=== PATIENT | male | born 1945 | race Caucasian/White ===

== ENCOUNTER → 2018-06-20 15:43 | Outpatient (CLI) | payer OTHER, SELFPAY ==
[2018-06-20 17:43] LABS: Anion Gap 10 (5-15); BUN 16 mg/dL (7-18); BUN/Creat Ratio 15.5 RATIO (10-20); Chloride 102 mmol/L (98-107); Creatinine, Serum 1.03 mg/dL (0.70-1.30); EST Glomerular Filtration Rate 76 mL/min (>60); Est Glom Filt Rate - Afr Amer 91 mL/min (>60); Glucose 99 mg/dL (74-106); Potassium 3.8 mmol/L (3.5-5.1); Sodium Level 138 mmol/L (136-145)
== END ==
PROVIDERS: Family Provider Family Medicine; PCP Family Medicine; Visit Provider Family Medicine
DX: I10 Essential (primary) hypertension (principal)
CPT/HCPCS: 36415; 80048

== ENCOUNTER → 2018-07-07 12:23 | Outpatient (CLI) | payer OTHER, SELFPAY | PROVIDERS: Family Provider Family Medicine; PCP Family Medicine; Visit Provider Nurse Practitioner Family | DX: R30.0 Dysuria (principal) | CPT/HCPCS: 87086; 87088 ==

== ENCOUNTER → 2018-12-17 09:45 | Outpatient (CLI) | payer OTHER, SELFPAY ==
[2018-12-17 12:58] LABS: Anion Gap 7 (5-15); BUN 14 mg/dL (7-18); BUN/Creat Ratio 13.3 RATIO (10-20); Calcium,Total 8.7 mg/dL (8.5-10.1); Chloride 101 mmol/L (98-107); Creatinine, Serum 1.05 mg/dL (0.70-1.30); EST Glomerular Filtration Rate 74 mL/min (>60); Est Glom Filt Rate - Afr Amer 89 mL/min (>60); Glucose 99 mg/dL (74-106); Potassium 3.7 mmol/L (3.5-5.1); Sodium Level 135 mmol/L (136-145)
== END ==
PROVIDERS: Family Provider Family Medicine; PCP Family Medicine; Referring Provider Family Medicine; Visit Provider Family Medicine
DX: I10 Essential (primary) hypertension (principal)
CPT/HCPCS: 36415; 80048

== ENCOUNTER → 2018-12-29 13:35 | Outpatient (CLI) | payer OTHER, SELFPAY ==
--- NOTE | 2018-12-29 13:43 | CT_ITS ---
STUDY: CT MAXILLOFACIAL SINUSES REASON FOR EXAM: Male, 73 years old. Chronic sinusitis. RADIATION DOSAGE (If Supplied By Facility): CTDIvol = ( 33.45 ) mGy, DLP = ( 612.42 ) mGycm TECHNIQUE: The patient was scanned in a multi detector CT scanner. High resolution axial imaging was performed without the administration of intravenous contrast material. Sagittal and coronal images were reconstructed. Individualized dose optimization techniques were used for this CT. COMPARISON: 3 plain film images of the paranasal sinuses October 26, 2015. FINDINGS: FRONTAL SINUSES: Normal aeration, without mucosal inflammatory disease. ETHMOIDAL SINUSES: Borderline to mild mucoperiosteal thickening in the anterior air cells. MAXILLARY SINUSES: Mild to moderate mucoperiosteal thickening consistent with chronic sinusitis. There is a rounded 2.3 cm soft tissue density in the right maxillary antrum that may be a large polyp or mucous inclusion cyst. SPHENOIDAL SINUSES: Mild mucoperiosteal thickening in the anterior-inferior right sphenoid sinus. Mild to moderate mucosal encroachment on the of the bilateral maxillary infundibuli. Normal uncinate processes, ethmoid bullae, and hiatus semilunaris. Normal bilateral middle turbinates. Normal bilateral inferior turbinates. Normal midline nasal septum. There is patency of the bilateral nasal airways. There are multilevel degenerative changes of the visualized cervical spine. The visualized osseous structures are otherwise unremarkable. The visualized bilateral orbital contents are normal. CT/Sinus/Facial Bone IMPRESSION: Chronic paranasal sinusitis, most prominent in the right maxillary antrum, as described. Electronically Signed: Jamison De La O MD at 14:50 EDT , Service support ,
== END ==
PROVIDERS: Family Provider Family Medicine; PCP Family Medicine; Referring Provider Family Medicine; Visit Provider Family Medicine
DX: J32.9 Chronic sinusitis, unspecified (principal)
CPT/HCPCS: 70486

== ENCOUNTER → 2019-06-24 10:16 | Outpatient (CLI) | payer OTHER, SELFPAY ==
[2019-06-24 13:13] LABS: Anion Gap 3 (5-15); BUN 16 mg/dL (7-18); Calcium,Total 8.8 mg/dL (8.5-10.1); Chloride 102 mmol/L (98-107); Creatinine, Serum 1.07 mg/dL (0.70-1.30); EST Glomerular Filtration Rate 72 mL/min (>60); Est Glom Filt Rate - Afr Amer 87 mL/min (>60); Glucose 92 mg/dL (74-106); Sodium Level 137 mmol/L (136-145); Thyroid Stim Hormone (TSH) 1.11 uIU/mL (0.358-3.74)
== END ==
PROVIDERS: Family Provider Family Medicine; PCP Family Medicine; Referring Provider Family Medicine; Visit Provider Family Medicine
DX: I10 Essential (primary) hypertension (principal); G20 Parkinson's disease
CPT/HCPCS: 36415; 80048; 84443

== ENCOUNTER → 2019-12-22 09:40 | Outpatient (CLI) | payer OTHER, SELFPAY ==
[2019-12-22 13:07] LABS: Anion Gap 6 (5-15); BUN 19 mg/dL (7-18); BUN/Creat Ratio 17.4 RATIO (10-20); Calcium,Total 9.4 mg/dL (8.5-10.1); Chloride 102 mmol/L (98-107); Creatinine, Serum 1.09 mg/dL (0.70-1.30); EST Glomerular Filtration Rate 70 mL/min (>60); Est Glom Filt Rate - Afr Amer 85 mL/min (>60); Glucose 98 mg/dL (74-106); Potassium 3.8 mmol/L (3.5-5.1); Sodium Level 139 mmol/L (136-145)
== END ==
PROVIDERS: PCP Family Medicine; Referring Provider Family Medicine; Visit Provider Family Medicine
DX: I10 Essential (primary) hypertension (principal)
CPT/HCPCS: 36415; 80048

== ENCOUNTER → 2020-07-22 10:09 | Outpatient (CLI) | payer OTHER, SELFPAY ==
[2020-07-22 12:24] LABS: Anion Gap 5 (5-15); BUN 17 mg/dL (7-18); BUN/Creat Ratio 15.6 RATIO (10-20); Chloride 100 mmol/L (98-107); Cholesterol 162 mg/dL (200); Creatinine, Serum 1.09 mg/dL (0.70-1.30); EST Glomerular Filtration Rate 70 mL/min (>60); Est Glom Filt Rate - Afr Amer 85 mL/min (>60); Glucose 96 mg/dL (74-106); High Density Lipoprotein 72 mg/dL; Potassium 3.6 mmol/L (3.5-5.1); Sodium Level 135 mmol/L (136-145); Triglycerides 46 mg/dL; Very Low Density Lipoprotein 9 mg/dL (5-40)
== END ==
PROVIDERS: PCP Family Medicine; Referring Provider Family Medicine; Visit Provider Family Medicine
DX: I10 Essential (primary) hypertension (principal)
CPT/HCPCS: 36415; 80048; 80061

== ENCOUNTER 2020-12-19 10:38 | Outpatient (RCR) | payer OTHER, SELFPAY | END 2020-12-19 23:59 | LOC: IMMUN 10:38 | PROVIDERS: PCP Family Medicine; Visit Provider Family Medicine | DX: Z23 Encounter for immunization (principal) | CPT/HCPCS: 0011A; 0012A ==

== ENCOUNTER → 2021-03-15 14:52 | Outpatient (CLI) | payer OTHER, SELFPAY ==
--- NOTE | 2021-03-15 14:58 | US_ITS ---
STUDY: SCROTUM ULTRASOUND REASON FOR EXAM: Male, 75 years old. Right-sided scrotal swelling. TECHNIQUE: Ultrasound evaluation of the scrotum was performed with color Doppler and static coates-scale imaging. COMPARISON: None. FINDINGS: RIGHT TESTICLE INTRATESTICULAR: There is a normal size of the right testicle. The right testicle measures 3.4 x 1.8 x 2.2 cm. There is a heterogeneous echotexture. There is normal arterial and normal venous vascularity. There is no demonstrated right testicular mass or cyst. EXTRATESTICULAR: The epididymis is enlarged. The epididymis head measures 0.9 x 0.6 x 0.7 cm. There is increased (hyperemic) vascularity of the epididymis. There is no demonstrated epididymal cystic structure. There is a large hydrocele. There is no demonstrated varicocele. There is no demonstrated extratesticular mass or cyst. LEFT TESTICLE INTRATESTICULAR: There is a normal size of the left testicle. The left testicle measures 2.9 x 2.0 x 1.6 cm. There is a homogenous echotexture. There is normal arterial and normal venous vascularity. There is no demonstrated left testicular mass or cyst. EXTRATESTICULAR: The epididymis is normal in size. The epididymis head measures 0.8 x 1.0 x 0.6 cm. There is normal vascularity of the epididymis. There is no demonstrated epididymal cystic structure. There is a small hydrocele. There is no demonstrated varicocele. There is no demonstrated extratesticular mass or cyst. US/Testicular with Arterial Flow IMPRESSION: 1. Findings suggestive of right-sided epididymitis with large hydrocele. 2. Small left hydrocele. 3. Normal testicles and left epididymis. Electronically Signed: Wili Junior DO at 16:54 EDT Tel [phone], Service support ,
== END ==
PROVIDERS: PCP Family Medicine; Referring Provider Family Medicine; Visit Provider Family Medicine
DX: N50.89 Other specified disorders of the male genital organs (principal)
CPT/HCPCS: 76870; 93976

== ENCOUNTER → 2021-05-02 10:44 | Outpatient (CLI) | payer OTHER, SELFPAY ==
[2021-05-02 10:54] LABS: Bacteria 0 SEEN /hpf (None Seen); Mucous, Urine 0 SEEN /hpf (<or=2+)
[2021-05-02 11:10] LABS: Color, Urine Yellow (Yellow); Glucose, Dipstick Normal (Normal); Ketone-Dipstick Negative (Negative); Leukocyte Esterase-Dipstick 25 /ul (Negative); Nitrite-Dipstick Negative (Negative); Occult Blood-Urine 25 /ul (Negative); Protein-Dipstick Negative (Negative); Urine Bilirubin Dipstick Negative (Negative); Urine Clarity Sl. Cloudy (Clear); Urine Urobilinogen Normal (Normal)
[2021-05-02 11:21] LABS: Red Blood Cells-Urine 0-5 SEEN /hpf (0-5); Squamous Epithelial Cells - UA 0-5 SEEN /hpf (0-5); White Blood Cells 0-5 SEEN /hpf (0-5)
== END ==
PROVIDERS: PCP Family Medicine; Visit Provider Nurse Practitioner Adult Health
DX: R31.29 Other microscopic hematuria (principal)
CPT/HCPCS: 81001

== ENCOUNTER → 2022-02-06 | Outpatient (CLI) | payer BC, SELFPAY ==
[2022-02-06 15:30] LABS: Anion Gap 5 (5-15); BUN 16 mg/dL (7-18); BUN/Creat Ratio 15.1 RATIO (10-20); Chloride 103 mmol/L (98-107); Creatinine, Serum 1.06 mg/dL (0.70-1.30); EST Glomerular Filtration Rate 72 mL/min (>60); Est Glom Filt Rate - Afr Amer 88 mL/min (>60); Glucose 98 mg/dL (74-106); Potassium 3.7 mmol/L (3.5-5.1); Sodium Level 138 mmol/L (136-145)
[2022-02-06 16:04] LABS: Microalbumin,Random Urine 22.6 mg/L (NO RANGE EST.); Microalbumin:Creatinine Ratio 11.5 mg/g CRE (<30 mg/g CRE)
== END | disposition home or self-care (01) ==
LOC: MFPLAB 12:11
PROVIDERS: PCP Family Medicine; Visit Provider Family Medicine
DX: I10 Essential (primary) hypertension (principal)
CPT/HCPCS: 36415; 80048; 82043; 82570

== ENCOUNTER → 2022-08-21 | Outpatient (CLI) | payer MEDICARE, OTHER, SELFPAY ==
--- NOTE | 2022-08-21 10:28 | EKG12_ITS ---
Test Reason : PREOP Blood Pressure : / mmHG Vent. Rate : 070 BPM Atrial Rate : 070 BPM P-R Int : 142 ms QRS Dur : 092 ms QT Int : 410 ms P-R-T Axes : 041 -63 037 degrees QTc Int : 442 ms Normal sinus rhythm Left anterior fascicular block Nonspecific ST abnormality Abnormal ECG Confirmed by GUEVARA SAVAGE, JONNATHAN ([id number]), photography editor ARGELIA MERA ([id number]) on 08/22/2022 9:30:47 AM Referred By: Garth Becerra Confirmed By:JONNATHAN WATERMAN MD
[2022-08-21 11:54] LABS: Hematocrit 46.7 % (40-54); Hemoglobin 16.1 g/dL (13.0-16.5); Mean Corp Hgb Conc 34.5 g/dL (32-36); Mean Corpuscular Hgb 32.5 pg (27.0-32.0); Mean Corpuscular Volume 94.2 fL (80-94); Mean Platelet Vol. 10.3 fl (6.2-12.0); Platelet Count 221 K/mm3 (150-450); RBC Distribution Width CV 14.1 % (11.6-14.6); RBC Distribution Width SD 48.5 fl (35.1-43.9); Red Blood Count 4.96 M/mm3 (4.6-6.2); White Blood Count 6.5 K/mm3 (4.4-11.0)
[2022-08-21 12:20] LABS: Anion Gap 6 (5-15); BUN 19 mg/dL (7-18); BUN/Creat Ratio 17.6 RATIO (10-20); Calcium,Total 9.1 mg/dL (8.5-10.1); Chloride 101 mmol/L (98-107); Creatinine, Serum 1.08 mg/dL (0.70-1.30); EST Glomerular Filtration Rate 71 mL/min (>60); Est Glom Filt Rate - Afr Amer 86 mL/min (>60); Glucose 117 mg/dL (74-106); Potassium 3.7 mmol/L (3.5-5.1); Sodium Level 135 mmol/L (136-145)
== END | disposition home or self-care (01) ==
LOC: LAB.FUTURE 10:27 → LAB 10:42
PROVIDERS: PCP Family Medicine; Referring Provider Urology; Visit Provider Urology
DX: Z01.810 Encounter for preprocedural cardiovascular examination (principal)
CPT/HCPCS: 36415; 80048; 85027; 93005

== ENCOUNTER 2023-01-30 15:00 | Outpatient (RCR) | payer MEDICARE, OTHER, SELFPAY ==
--- NOTE | 2022-10-31 18:02 | HP.PTEVAL_ITS ---
Patient's Visit Information ANTHONY VIDES III is a 77 year old M referred to Physical Therapy by Out of Town [facility] with a diagnosis of Parkinson's Disease. Date of Evaluation: 10/31/22 Physical Therapist: PJ Hays - Visit Plan Frequency: 2x /Week Duration: 2 Months Plan: 2X/ week for 8 weeks for UE/LE strength, gait training, balance, dual tasking, functional activities with HEP. HEP: LTR, standing heel and toe raises, seated opp arm and leg, SKC - Subjective Pt was diagnosed with PD 7 years ago. He has most of his sx in his L leg. He has not had PT before. He was walking 30-45 min of walking a day and doing some stretches and strengthening. He just got a stationary bike. It is not put together yet. He has some freezing episodes when trying to turn 180 degrees. He has not had that problem when out walking. He is able to get in a car that is not an issue but a strange car can be a struggle. Turning over in bed can be a struggle. It is a little better with time release levadopa. He has not had any falls. His house is small and can hold onto things. He lives with 2 cats. Stairs: 3 story condo with bed upstairs and laundry in basement with and he alternates the stairs. Sit to stand: He struggles getting out of a recliner. Curb steps: careful but not an issue. 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 Pt biggest concern is balance and retaining strength in his arms (to be able to get up from the chair and the bed). - Objective Gait: Walks with catching his L toe, fast speed and slower stride length B, walks with heels and knees almost touching and flexed trunk. LE MMT: R hip flex 5.7# and L hip flex 6.6#. R knee ext 17.8# and L knee ext 15.4#. R knee flex 6.7# and L knee flex 7#. R shoulder flex 7.4# and L shld flex 7.6#. R shoulder ER 7.4# and L 4.9. R tricep 8.5# and L 7.2#. FGA: 11. Sit to stand: Able to get up without using his UE but has some retro LOB. TU:56. Standing opp arm and leg: Has poor balance but able to do X 3 on each side in a row without messing up but then does lose his balance. Pt struggles with standing heel and toe raises. Flexibility: Tight B gastroc and HS, trunk rotation. Standing with EC 15 seconds - Balance/Special Test Scores Functional Gait Assessment Score: 11 % Disability: 63.3400 Lower Extremity Functional Score: 51 - Goals Goal 1:: I HEP Goal Time Frame: 8-12 Weeks Goal 2:: Increase balance (FGA was 11 at time of the eval). Goal Time Frame: 8-12 Weeks Goal 3:: Increase UE/LE strength (at the time of the eval: R hip flex 5.7# and L hip flex 6.6#. R knee ext 17.8# and L knee ext 15.4#. R knee flex 6.7# and L knee flex 7#. R shoulder flex 7.4# and L shld flex 7.6#. R shoulder ER 7.4# and L 4.9. R tricep 8.5# and L 7.2#) Goal Time Frame: 8-12 Weeks Goal 4:: Be able to sit to stand X 10 without retro LOB and no UE support Goal Time Frame: 8-12 Weeks Goal 5:: Be able to complete X 20 opp arm and leg in standing in a row without LOB or messing up seqyence. Goal Time Frame: 8-12 Weeks - Rehabilitation Potential Rehabilitation Potential: Good - Anticipated Interventions Therapeutic Exercise to Include: Strength training, Endurance training, Balance training, Postural training, Flexibilty training, Gait and locomotor training, Neuromotor development, Passive ROM, Active ROM, Dynamic Lumbar Stabilization For the Purpose of:: To decrease pain, To increase ROM, To improve nutrient delivery to tissue, To improve muscle performance and motor function, To improve ability to perform ADL's, To increase tolerance to activity/condition/position, To improve performance and independence with ADL's, To decrease level of supervision to perform tasks, To improve ability of physical actions for home/community/work/leisure, To improve gait and locomotor functions, To improve health of tissue, To decrease soft tissue restriction, To increase flexibility/ROM, To improve balance, To improve safety with gait, To improve health and function Functional Training to Include: Gait training For the Purpose of:: To decrease pain, To increase ROM, To improve nutrient delivery to tissue, To improve muscle performance and motor function, To improve ability to perform ADL's, To increase tolerance to activity/condition/position, To improve performance and independence with ADL's, To decrease level of supervision to perform tasks, To improve ability of physical actions for home/community/work/leisure, To improve gait and locomotor functions, To improve health of tissue, To decrease soft tissue restriction, To increase flexibility/ROM, To improve endurance, To improve balance, To improve safety with gait Manual Therapy Techniques to Include: Passive ROM For the Purpose of:: To increase ROM, To increase flexibility/ROM Thank you for the opportunity to evaluate your patient. For Medicare and Medicare HMO plans, please review the plan of care and approve it. It will need to be FAXED BACK to us at [phone] for Medicare purposes. For Medicare only, by signing this I certify the plan of care. Please let me know if there are questions or concerns regarding this plan of care. Physician Signature: Date:
--- NOTE | 2022-12-05 12:56 | HP.PTREVAL ---
CLAUDE LIZ, It has been my pleasure to treat ANTHONY VIDES III over the last 9 visits for Parkinson's Disease. Please see the progress note below for an update on the physical therapy plan of care! Subjective: Pt reports that he is having a bad sinus day and his balance is off and this is chronic for him. Pt feels PT has been helpful in reminding him how to walk and do things correctly. He feels that he needs work on balance and strength. He feels that he has def gotten stronger. He would like to do another 4 weeks. Objective/Function: FGA was 11 at time of the eval now 15. MMT: R hip flex 11.7# and L hip flex 13.2#. R knee ext 25.7# and L knee ext 24.5#. R knee flex 11.1# and L knee flex 10.2#. R shoulder flex 8.3# and L shld flex 8.4#. R shoulder ER 14.6# and L 11.3. R tricep 8.7# and L 9.6#). Sit to stand X 10 but does have some retro LOB at times and uses the legs against the back of the chair to right his balance. He also does not stand up completely when doing them. [place] arm and leg X 10 B without LOB Plan Plan: Continue with sit to stand to avoid RETRO LOB and more erect posture, continue with balance activities, dual tasking, and functional transfers. 2X/ week for 8 weeks for UE/LE strength, gait training, balance, dual tasking, functional activities with HEP. HEP: LTR, standing heel and toe raises, seated opp arm and leg, [facility] Balance/Gait/Functional tests - Balance/Special Test Scores Functional Gait Assessment Score: 15 % Disability: 50.0000 Lower Extremity Functional Score: 60 Goals Goal 1:: I HEP Goal Time Frame: 8-12 Weeks Goal Progress: Goal Met Goal 2:: Increase balance (FGA was 11 at time of the eval). Goal Time Frame: 8-12 Weeks Goal Progress: Progressing Goal 3:: Increase UE/LE strength (at the time of the eval: R hip flex 5.7# and L hip flex 6.6#. R knee ext 17.8# and L knee ext 15.4#. R knee flex 6.7# and L knee flex 7#. R shoulder flex 7.4# and L shld flex 7.6#. R shoulder ER 7.4# and L 4.9. R tricep 8.5# and L 7.2#) Goal Time Frame: 8-12 Weeks Goal Progress: Progressing Goal 4:: Be able to sit to stand X 10 without retro LOB and no UE support Goal Time Frame: 8-12 Weeks Goal Progress: Progressing Goal 5:: Be able to complete X 20 opp arm and leg in standing in a row without LOB or messing up seqyence. Goal Time Frame: 8-12 Weeks Goal Progress: Progressing Anticipated Interventions Therapeutic Exercise to Include: Strength training, Endurance training, Balance training, Postural training, Flexibilty training, Gait and locomotor training, Neuromotor development, Passive ROM, Active ROM, Dynamic Lumbar Stabilization For the Purpose of:: To decrease pain, To increase ROM, To improve nutrient delivery to tissue, To improve muscle performance and motor function, To improve ability to perform ADL's, To increase tolerance to activity/condition/position, To improve performance and independence with ADL's, To decrease level of supervision to perform tasks, To improve ability of physical actions for home/community/work/leisure, To improve gait and locomotor functions, To improve health of tissue, To decrease soft tissue restriction, To increase flexibility/ROM, To improve balance, To improve safety with gait, To improve health and function Functional Training to Include: Gait training For the Purpose of:: To decrease pain, To increase ROM, To improve nutrient delivery to tissue, To improve muscle performance and motor function, To improve ability to perform ADL's, To increase tolerance to activity/condition/position, To improve performance and independence with ADL's, To decrease level of supervision to perform tasks, To improve ability of physical actions for home/community/work/leisure, To improve gait and locomotor functions, To improve health of tissue, To decrease soft tissue restriction, To increase flexibility/ROM, To improve endurance, To improve balance, To improve safety with gait Manual Therapy Techniques to Include: Passive ROM For the Purpose of:: To increase ROM, To increase flexibility/ROM Please do not hesitate to contact me at [phone] by phone or if you have questions or concerns regarding this new plan of care! Sincerely, Miriam Olivia, MPT
--- NOTE | 2023-01-01 13:40 | HP.PTREVAL ---
CLAUDE LIZ, It has been my pleasure to treat ANTHONY VIDES III over the last 16 visits for Parkinson's Disease. Please see the progress note below for an update on the physical therapy plan of care! Subjective: Pt is standing up much easier, walking much easier, standing opp arm and leg seems easier and better overall balance. Pt feels he still needs work on balance and strengthening. Objective/Function: R hip flex 12.1# and L hip flex 14.9#. R knee ext 25.5# and L knee ext 22.1#. R knee flex 11.6and L knee flex 12.5#. R shoulder flex 8.2# and L shld flex 8.4#. FGA: 17 Plan Plan: 2 additional visits for 1 hour to teach pt how to use the H&W equipment for strength, posture and some safe balance with worksheet filled out so he can follow it on his own. Pt will start PD class tomm. Balance/Gait/Functional tests - Balance/Special Test Scores Functional Gait Assessment Score: 17 % Disability: 43.3400 Lower Extremity Functional Score: 57 Goals Goal 1:: I HEP Goal Time Frame: 8-12 Weeks Goal Progress: Goal Met Goal 2:: Increase balance (FGA was 11 at time of the eval). Goal Time Frame: 8-12 Weeks Goal Progress: Progressing Goal 3:: Increase UE/LE strength (at the time of the eval: R hip flex 5.7# and L hip flex 6.6#. R knee ext 17.8# and L knee ext 15.4#. R knee flex 6.7# and L knee flex 7#. R shoulder flex 7.4# and L shld flex 7.6#. R shoulder ER 7.4# and L 4.9. R tricep 8.5# and L 7.2#) Goal Time Frame: 8-12 Weeks Goal Progress: Goal Met Goal 4:: Be able to sit to stand X 10 without retro LOB and no UE support Goal Time Frame: 8-12 Weeks Goal Progress: Progressing Goal 5:: Be able to complete X 20 opp arm and leg in standing in a row without LOB or messing up seqyence. Goal Time Frame: 8-12 Weeks Goal Progress: Goal Met Anticipated Interventions Therapeutic Exercise to Include: Strength training, Endurance training, Balance training, Postural training, Flexibilty training, Gait and locomotor training, Neuromotor development, Passive ROM, Active ROM, Dynamic Lumbar Stabilization For the Purpose of:: To decrease pain, To increase ROM, To improve nutrient delivery to tissue, To improve muscle performance and motor function, To improve ability to perform ADL's, To increase tolerance to activity/condition/position, To improve performance and independence with ADL's, To decrease level of supervision to perform tasks, To improve ability of physical actions for home/community/work/leisure, To improve gait and locomotor functions, To improve health of tissue, To decrease soft tissue restriction, To increase flexibility/ROM, To improve balance, To improve safety with gait, To improve health and function Functional Training to Include: Gait training For the Purpose of:: To decrease pain, To increase ROM, To improve nutrient delivery to tissue, To improve muscle performance and motor function, To improve ability to perform ADL's, To increase tolerance to activity/condition/position, To improve performance and independence with ADL's, To decrease level of supervision to perform tasks, To improve ability of physical actions for home/community/work/leisure, To improve gait and locomotor functions, To improve health of tissue, To decrease soft tissue restriction, To increase flexibility/ROM, To improve endurance, To improve balance, To improve safety with gait Manual Therapy Techniques to Include: Passive ROM For the Purpose of:: To increase ROM, To increase flexibility/ROM Please do not hesitate to contact me at [phone] by phone or if you have questions or concerns regarding this new plan of care! Sincerely, Miriam Olivia, MPT
--- NOTE | 2023-01-30 15:54 | HP.PTEVAL_ITS ---
Patient's Visit Information ANTHONY VIDES III is a 77 year old M referred to Physical Therapy by CLAUDE LIZ with a diagnosis of Parkinson's Disease. Date of Evaluation: 10/31/22 Physical Therapist: PJ Hays - Visit Plan Frequency: 2x /Week Duration: 2 Months Plan: DC PT to H&W program - Subjective Pt was diagnosed with PD 7 years ago. He has most of his sx in his L leg. He has not had PT before. He was walking 30-45 min of walking a day and doing some stretches and strengthening. He just got a stationary bike. It is not put together yet. He has some freezing episodes when trying to turn 180 degrees. He has not had that problem when out walking. He is able to get in a car that is not an issue but a strange car can be a struggle. Turning over in bed can be a struggle. It is a little better with time release levadopa. He has not had any falls. His house is small and can hold onto things. He lives with 2 cats. Stairs: 3 story condo with bed upstairs and laundry in basement with and he alternates the stairs. Sit to stand: He struggles getting out of a recliner. Curb steps: careful but not an issue. 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 - Pain R knee Pain Intensity (Out of 10): 1 - Objective Gait: Walks with catching his L toe, fast speed and slower stride length B, walks with heels and knees almost touching and flexed trunk. LE MMT: R hip flex 5.7# and L hip flex 6.6#. R knee ext 17.8# and L knee ext 15.4#. R knee flex 6.7# and L knee flex 7#. R shoulder flex 7.4# and L shld flex 7.6#. R shoulder ER 7.4# and L 4.9. R tricep 8.5# and L 7.2#. FGA: 11. Sit to stand: Able to get up without using his UE but has some retro LOB. TU:56. Standing opp arm and leg: Has poor balance but able to do X 3 on each side in a row without messing up but then does lose his balance. Pt struggles with standing heel and toe raises. Flexibility: Tight B gastroc and HS, trunk rotation. Standing with EC 15 seconds - Balance/Special Test Scores Functional Gait Assessment Score: 17 % Disability: 43.3400 Lower Extremity Functional Score: 56 - Goals Goal 1:: I HEP Goal Time Frame: 8-12 Weeks Goal 2:: Increase balance (FGA was 11 at time of the eval). Goal Time Frame: 8-12 Weeks Goal 3:: Increase UE/LE strength (at the time of the eval: R hip flex 5.7# and L hip flex 6.6#. R knee ext 17.8# and L knee ext 15.4#. R knee flex 6.7# and L knee flex 7#. R shoulder flex 7.4# and L shld flex 7.6#. R shoulder ER 7.4# and L 4.9. R tricep 8.5# and L 7.2#) Goal Time Frame: 8-12 Weeks Goal 4:: Be able to sit to stand X 10 without retro LOB and no UE support Goal Time Frame: 8-12 Weeks Goal 5:: Be able to complete X 20 opp arm and leg in standing in a row without LOB or messing up sequence. Goal Time Frame: 8-12 Weeks - Rehabilitation Potential Rehabilitation Potential: Good - Anticipated Interventions Therapeutic Exercise to Include: Strength training, Endurance training, Balance training, Postural training, Flexibilty training, Gait and locomotor training, Neuromotor development, Passive ROM, Active ROM, Dynamic Lumbar Stabilization For the Purpose of:: To decrease pain, To increase ROM, To improve nutrient delivery to tissue, To improve muscle performance and motor function, To improve ability to perform ADL's, To increase tolerance to activity/condition/position, To improve performance and independence with ADL's, To decrease level of supervision to perform tasks, To improve ability of physical actions for home/community/work/leisure, To improve gait and locomotor functions, To improve health of tissue, To decrease soft tissue restriction, To increase flexibility/ROM, To improve balance, To improve safety with gait, To improve health and function Functional Training to Include: Gait training For the Purpose of:: To decrease pain, To increase ROM, To improve nutrient delivery to tissue, To improve muscle performance and motor function, To improve ability to perform ADL's, To increase tolerance to activity/condition/position, To improve performance and independence with ADL's, To decrease level of supervision to perform tasks, To improve ability of physical actions for home/community/work/leisure, To improve gait and locomotor functions, To improve health of tissue, To decrease soft tissue restriction, To increase flex ibility/ROM, To improve endurance, To improve balance, To improve safety with gait Manual Therapy Techniques to Include: Passive ROM For the Purpose of:: To increase ROM, To increase flexibility/ROM Thank you for the opportunity to evaluate your patient. For Medicare and Medicare HMO plans, please review the plan of care and approve it. It will need to be FAXED BACK to us at [phone] for Medicare purposes. For Medicare only, by signing this I certify the plan of care. Please let me know if there are questions or concerns regarding this plan of care. Physician Signature: Date:
--- NOTE | 2023-05-01 16:16 | HP.PTDCSUM ---
Discharge Summary D/C summary: It has been my pleasure to treat ANTHONY VIDES III referred by CLAUDE LIZ, with the diagnosis of Parkinson's Disease for a total of 21 visit(s). Discharge Date: 01/30/23 Please see the following information for a summary of their discharge status. Subjective Subjective: Pt reports that he has some sinus stuff and they can't figure out where it is coming from. He reports that he did not sleep well cause his son called him in the middle of the night having a panic attack. Pain R knee: Pain Intensity (Out of 10): 1 Overall Improvement % Improvement: 60 Objective Objective/Function: Pt given log sheet. Pt set up all machines today with therapist present and answering any questions. Pt is slow getting on and off the machines (his withering movements slow him down) but able to set up gym equip indep. Goals Goal 1:: I HEP Goal Progress: Goal Met Goal 2:: Increase balance (FGA was 11 at time of the eval). Goal Progress: Progressing Goal 3:: Increase UE/LE strength (at the time of the eval: R hip flex 5.7# and L hip flex 6.6# R knee ext 17.8# and L knee ext 15.4# R knee flex 6.7# and L knee flex 7# R shoulder flex 7.4# and L shld flex 7.6# R shoulder ER 7.4# and L 4.9 R tricep 8.5# and L 7.2#) Goal Progress: Goal Met Goal 4:: Be able to sit to stand X 10 without retro LOB and no UE support Goal Progress: Goal Met Goal 5:: Be able to complete X 20 opp arm and leg in standing in a row without LOB or messing up sequence. Goal Progress: Goal Met Plan Plan: DC PT to [facility] program D/C Information Discharge Comments: DC PT to I gym [facility] d/c sentence: If there are questions or concerns regarding this patient's physical therapy, please feel free to call me at [phone]. Thank you for the referral of this patient. Sincerely, Miriam Olivia, MPT Balance/Gait/Functional tests Balance/Special Test Scores Functional Gait Assessment Score: 17 % Disability: 43.3400 Lower Extremity Functional Score: 56
== END 2023-01-30 19:00 | disposition home or self-care (01) ==
LOC: PT 15:00
PROVIDERS: PCP Family Medicine
DX: G20 Parkinson's disease (principal)
CPT/HCPCS: 97110; 97161; 97530

== ENCOUNTER → 2023-02-06 | Outpatient (CLI) | payer MEDICARE, OTHER, SELFPAY ==
[2023-02-06 12:26] LABS: Absolute Lymphocyte Count 0.95 X10^3/uL (0.83-4.51); Absolute Neutrophil Count 4.2 X10^3/uL (2.0-7.7); Basophil# 0.05 X10^3/uL; Basophil% 0.9 % (0-1); Eosinophil# 0.03 X10^3/uL; Eosinophils% 0.5 % (0-5); Hematocrit 47.6 % (40-54); Hemoglobin 15.8 g/dL (13.0-16.5); Lymphocyte # 0.95 X10^3/ul (0.83-4.51); Lymphocyte % 16.9 % (19-41); Mean Corp Hgb Conc 33.2 g/dL (32-36); Mean Corpuscular Hgb 31.9 pg (27.0-32.0); Mean Platelet Vol. 10.8 fl (6.2-12.0); Monocyte# 0.33 X10^3/uL; Monocyte% 5.9 % (0-10); NRBC Flagged by Analyzer 0 % (0-5); Neutrophil # 4.21 X10^3/uL (2.7-7.7); Neutrophil % 74.9 % (47-70); Platelet Count 209 K/mm3 (150-450); Red Blood Count 4.96 M/mm3 (4.6-6.2); White Blood Count 5.6 K/mm3 (4.4-11.0)
== END | disposition home or self-care (01) ==
LOC: MFPLAB 10:50
PROVIDERS: PCP Family Medicine; Referring Provider Family Medicine; Visit Provider Family Medicine
DX: R60.9 Edema, unspecified (principal)
CPT/HCPCS: 36415; 84443; 85025

== ENCOUNTER → 2023-08-05 | Outpatient (CLI) | payer MEDICARE, OTHER, SELFPAY ==
[2023-08-05 12:45] LABS: Anion Gap 6 (5-15); BUN 19 mg/dL (7-18); BUN/Creat Ratio 17.4 RATIO (10-20); Calcium,Total 9.2 mg/dL (8.5-10.1); Chloride 104 mmol/L (98-107); Cholesterol 134 mg/dL (200); Creatinine, Serum 1.09 mg/dL (0.70-1.30); EST Glomerular Filtration Rate 70 mL/min (>60); Est Glom Filt Rate - Afr Amer 84 mL/min (>60); Glucose 107 mg/dL (74-106); High Density Lipoprotein 56 mg/dL; Potassium 4.1 mmol/L (3.5-5.1); Sodium Level 139 mmol/L (136-145); Triglycerides 56 mg/dL; Very Low Density Lipoprotein 11 mg/dL (5-40)
[2023-08-05 12:46] LABS: Microalbumin,Random Urine 21.9 mg/L (NO RANGE EST.); Microalbumin:Creatinine Ratio 10.1 mg/g CRE (<30 mg/g CRE)
== END | disposition home or self-care (01) ==
LOC: MFPLAB 10:57
PROVIDERS: PCP Family Medicine; Visit Provider Family Medicine
DX: I10 Essential (primary) hypertension (principal)
CPT/HCPCS: 36415; 80048; 80061; 82043; 82570

== ENCOUNTER 2023-12-03 20:00 | Observation (INO) | payer MEDICARE, OTHER, SELFPAY ==
[2023-12-03 20:01] VITALS: BP 129/80; PULSE 81; RESP 16; TEMP 36.6; O2SAT 97
[2023-12-03 20:05] VITALS: BP 129/80; PULSE 81; RESP 16; TEMP 36.6; O2SAT 97
[2023-12-03 20:51] VITALS: BMI 22.4
--- OUTSIDE RECORDS SUMMARY | 2023-12-03 21:15 | XMS RPT_ITS | CCD ---
Author Name Unknown Address [address] [place] [address] Organization [facility] Care Team Providers Care Twister Doffer Name Role Phone Sarika Montaño Primary Care Provider [phone] SARIKA MONTAÑO Primary Care Unavailable ADI KYLE Attending Unavailable PATIENCE MARCOS Attending Unavailable SARIKA MONTAÑO Primary Care Unavailable JUDITH ROSENBERG Referring Unavailable SARIKA MONTAÑO Primary Care Unavailable ADI KYLE Referring Unavailable JUDITH ROSENBERG Attending Unavailable Medications Completed/Discontinued Medications Medication Drug Class(es) Dates Sig (Normalized) Sig (Original) amantadine hydrochloride 100 mg oral capsule (20 sources) Influenza A M2 Protein Inhibitor Start: 11-09-2022 End: 10-09-2023 amantadine HCl (SYMMETREL) 100 mg capsule Take 2 tablets at 9am, then 1 tablet at 1pm and 5pm. 360 capsule 1 10/09/2023 Active Problems Active Problems Problem Classification Problem Date Documented Da te Episodic/Chronic Other hereditary and degenerative nervous system conditions (18 sources) Dystonia; Translations: [Dystonia, unspecified] Onset: 01-29-2022 Chronic Other hereditary and degenerative nervous system conditions (1 source) Dyskinesia; Translations: [Dystonia, unspecified] Chronic Parkinson`s disease (20 sources) Parkinson's disease; Translations: [Parkinson's disease] Onset: 03-24-2018 Chronic Residual codes; unclassified (17 sources) Insomnia co-occurrent and due to medical condition; Translations: [Insomnia due to medical condition] Onset: 03-17-2019 03-17-2019 Chronic Unclassified (3 sources) Movement disorder; Translations: [Motor fluctuations 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 in Parkinson's disease] Onset: 03-24-2018 03-24-2018 Chronic Past or Other Problems Problem Classification Problem Date Documented Da te Episodic/Chronic Diseases of mouth; excluding dental (19 sources) Excessive salivation; Translations: [Disturbances of salivary secretion] Onset: 04-21-2021 04-21-2021 Episodic Other hereditary and degenerative nervous system conditions (20 sources) Drug-induced dyskinesia; Translations: [Drug induced subacute dyskinesia] Onset: 05-20-2018 Episodic Residual codes; unclassified (16 sources) Livedo reticularis; 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] Onset: 03-17-2019 03-17-2019 Episodic Residual codes; unclassified (11 sources) Bilateral lower limb edema; Translations: [Localized edema] Onset: 11-02-2022 Episodic Results Test Name Value Interpretation Reference Range Facil ity Vital Signs Date Time Vital Sign Value Performing Clinician Randi méndez 02-27-2023 11:22-0400 Body height 177.8 cm Judith Rosenberg APRN.SECURITY INVESTIGATOR Work Phone: [facility] 02-27-2023 11:22-0400 Diastolic blood pressure 77 mm[Hg] Judith Rosenberg APRN.SECURITY INVESTIGATOR Work Phone: [facility] 02-27-2023 11:22-0400 Heart rate 60 /min Judith Rosenberg APRN.SECURITY INVESTIGATOR Work Phone: [facility] 02-27-2023 11:22-0400 SaO2% (BldA) [Mass fraction] 98 % Judith Rosenberg APRN.SECURITY INVESTIGATOR Work Phone: [facility] 02-27-2023 11:22-0400 Systolic blood pressure 168 mm[Hg] Judith Rosenberg APRN.SECURITY INVESTIGATOR Work Phone: [facility] 08-29-2022 12:49-0500 SaO2% (BldA) [Mass fraction] 99 % Adi Kyle MD Work Phone: [facility] 08-29-2022 12:46-0500 Body weight 67 kg Adi Kyle MD Work Phone: [facility] 08-29-2022 12:46-0500 Diastolic blood pressure 79 mm[Hg] Adi Kyle MD Work Phone: [facility] 08-29-2022 12:46-0500 Heart rate 65 /min Adi Kyle MD Work Phone: [facility] 08-29-2022 12:46-0500 Systolic blood pressure 172 mm[Hg] Adi Kyle MD Work Phone: [facility] 01-24-2022 13:37-0400 SaO2% (BldA) [Mass fraction] 98 % Adi Kyle MD Work Phone: [facility] 01-24-2022 13:35-0400 Body height 177.8 cm Adi Kyle MD Work Phone: [facility] 01-24-2022 13:35-0400 Diastolic blood pressure 96 mm[Hg] Adi Kyle MD Work Phone: [facility] 01-24-2022 13:35-0400 Heart rate 86 /min Adi Kyle MD Work Phone: [facility] 01-24-2022 13:35-0400 Systolic blood pressure 162 mm[Hg] Adi Kyle MD Work Phone: [facility] Encounters Encounter Date Encounter Type Care Provider Facility Start: 11-04-2023 End: 11-04-2023 ambulatory SARIKA [facility] Facility:[facility] Start: 10-09-2023 [place] augustine MD Work Phone: [facility] Procedures Date Procedure Procedure Detail Performing Clinician Start: 02-21-2022 Adult depression scr eening assessment Adi Kyle MD Work Phone: Start: 01-22-2022 Adult depression scr eening assessment Adi Kyle MD Work Phone: Start: 10-02-2011 Colonoscopy Adi de la rosa MD Work Phone: Plan of Treatment Date Care Activity Detail Author Start: 06-21-2023 Covid-19 Vaccine () Covid-19 Vaccine () [facility] Start: 06-21-2023 Influenza vaccination C [facility] Start: 02-21-2023 Adult depression scr eening assessment DEPRESSION SCREENING [facility] Start: 01-22-2023 Adult depression scr eening assessment DEPRESSION SCREENING [facility] Start: 12-08-2022 COVID-19 VACCINE (6 - Moderna series) COVID-19 VACCINE (6 - Moderna series) [facility] Start: 10-21-2022 ADVANCE DIRECTIVE DISCUSSION ADVANCE DIRECTIVE DISCUSSION [facility] Start: 10-21-2022 DEPRESSION ASSESSMENT DEPRESSION ASS ESSMENT [facility] Start: 06-21-2022 Influenza vaccination INFLUENZA (#1) [facility] Start: 12-31-2021 COVID-19 VACCINE (4 - Booster for Moderna series) COVID-19 VACCINE (4 - Booster for Moderna series) [facility] Start: 10-21-2021 ADVANCE DIRECTIVE DISCUSSION ADVANCE DIRECTIVE DISCUSSION [facility] Start: 10-21-2021 DEPRESSION ASSESSMENT DEPRESSION ASS ESSMENT [facility] Start: 10-02-2021 Colonoscopy COLONOSCOPY [facility] Start: 10-02-2021 COLORECTAL CANCER SCREENING COLORECTAL CANCER SCREENING [facility] Start: 09-15-2013 Shingrix Vaccine (2 of 3) Shingrix V accine (2 of 3) [facility] Start: 2011 Pneumococcal Vaccine : 65+ (1 - PCV) Pneumococcal Vaccine: 65+ (1 - PCV) [facility] Start: 2011 PNEUMOCOCCAL: 65+ (1 - PCV) PNEUMOCOCCAL: 65+ (1 - PCV) [facility] Start: 2011 PNEUMOVAX AGE 65 AND OVER WITH 5YR LOOKBACK (#1) PNEUMOVAX AGE 65 AND OVER WITH 5YR LOOKBACK (#1) [facility] Start: 2006 RSV Vaccine (1 - 1-d ose 60+ series) RSV Vaccine (1 - 1-dose 60+ series) [facility] Start: 1996 SHINGRIX VACCINE (1 of 2) SHINGRIX V ACCINE (1 of 2) [facility] Start: 1991 COLOGUARD (FIT-DNA) COLOGUARD (FIT-D NA) [facility] Start: [address] COLONOGRAPHY [facility] Start: 1991 DIABETES SCREEN DIABETES SCREEN [facility] Start: 1991 Diabetes Screening Diabetes Screenin g [facility] Start: 1991 FECAL OCCULT BLOOD FECAL OCCULT BLOO D [facility] Start: 1991 SIGMOIDOSCOPY SIGMOIDOSCOPY Paige herring [facility] Start: 1981 LIPID SCREEN LIPID SCREEN [facility] Start: 1965 Urine microalbumin profile [facility] Start: 1964 HEPATITIS C SCREENING HEPATITIS C [facility] Start: 1964 Hepatitis C screening Hepatitis C [facility] c Immunizations Immunization Date Immunization Notes Care Provider Fa cility 08-07-2022 influenza virus vacc ine, unspecified formulation Adi Kyle MD Work Phone: [facility] Payers Date Payer Category Payer Private Health Insurance [employer]LEMENT [id number] 2022-Present [phone] [address] [place] [address] Indemnity [id number] 2022 Private Health Insurance [id number] 2021 Unknown [employer] PPO [id number] 2021-Present [phone] [address] [place] [address] PPO [id number] 2021 Unknown [employer] PPO [id number] 2021-Present [phone] [address] [place] [address] PPO [id number] 2011 Medicare MEDICARE MEDICAR E A AND B [id number] 2011-Present [phone] [place] [address] Medicare [id number] 2011 Medicare [id number] Social History Date Type Detail Facility Start: 05-22-2011 End: 08-29-2022 Tobacco smoking status NHIS Never smoked tobacco [facility] Start: 05-22-2011 End: 08-29-2022 Tobacco use and exposure Smokeless tobacco non-user [facility] Start: 11-12-2019 End: 02-27-2023 Alcohol intake Not Asked [facility] Start: 1945 Sex Assigned At Male C [facility] Start: 01-14-2022 End: 08-29-2022 Exposure to SARS-CoV-2 (event) Not sure [facility] Start: 02-27-2023 End: 05-27-2023 History of Social function [facility] Start: 02-27-2023 End: 05-27-2023 Tobacco use panel [facility] Adult Depression Screening Assessment 0 [facility] Start: 04-17-2021 Gender identity Identifies as male gender (finding) [facility] Start: 04-17-2021 Sexual orientation Heterosexual (fin ding) [facility] Clinical Notes 01-24-2022 to 11-04-2023 Telephone Encounter - Leonora Betts - 10/10/2023 8:44 AM ESTTelephone Encounter - Sammie Pryor - 10/09/2023 10:03 AM ESTPatient InstructionsPatient InstructionsPatient Instructions Note Date & Type Note Facility 11-04-2023 Note HNO ID: [id number] Author: ADI KYLE MD Service: ? Author Type: Physician Type: Progress Notes Filed: 11/04/2023 11:05 Note Text: [facility] - FOLLOW UP EVALUATION - VIRTUAL VISIT Sarika Montaño MD [facility] [address] [address] Dear Sarika Montaño MD: I had the pleasure of seeing Mr. Carver for follow-up today. As you know he is a 78 year old right-handed male with a history of Parkinson disease since 2015. He is seen alone. We had a visit using: Box [employer] I have communicated my name and active licensure. The patient's identity and physical location were verified at the time of this visit. Either the patient or their legal door to door sales representative has been informed of the risks and benefits of -- and alternatives to -- treatment through a remote evaluation and consents to proceed with the evaluation remotely. Subjective During his previous visit the following plan was made: Previous plan-06/03/2023 Visit: Reduce 12pm dose of Sinemet to 1 tablet. Please let us know if you have any worsening of motor function with this. The goal is to hopefully improve your dyskinesias in the middle of the day. Try an OTC decongestant on days your ear fullness is bothering you. This could be related to the slowed drainage from PD since you do not have any structural issues. Interval History He says that he is doing okay . Does not notice much wearing off; dyskinesias are not there all the time, more in the morning. Having some balance issues. Getting PT through [facility]. No falls, but with occasional freezing. Now tolerating amantadine with lower dose (caused leg swelling on the higher dose). No hallucinations. Good cognition. Denies mood issues. Constipation controlled by metamucil. Movement Disorders Medications Schedule - as of the start of the visit: Medications 9AM 1PM 5PM bedtime Carbidopa/levodopa 25/100 mg 1.5 1 1 Amantadine 100 mg 1 1 CR carbidopa/levodopa 25/100 mg 1 Parkinson's Motor Complications Medication benefit onset: unclear Medication duration: unclear Wearing off: no Painful off-state dystonia: no Dyskinesia: yes (Comment: not bothersome) Prior Anti-Parkinson Therapies Amantadine IR ALLERGIES No Known Allergies Current Outpatient Medications Medication Sig carbidopa-levodopa (SINEMET 25-100) 25-100 mg per tablet Take 1.5 tablet every 5 hours, 3 times daily. amantadine HCl (SYMMETREL) 100 mg capsule Take 2 tablets at 9am, then 1 tablet at 1pm and 5pm. carbidopa-levodopa CR (SINEMET CR) 25-100 mg per tablet Take 1 tablet by mouth once daily. At bedtime. hydrochlorothiazide 12.5 mg ORAL tablet Take 12.5 mg by mouth once daily. Take one(1) tablet daily. No current facility-administered medications for this visit. Questionnaires: In addition, the following areas that may be affected by abnormal involuntary movements were evaluated: Daily activities Difficulties with eating: Yes (slight) Difficulties in dressing: Yes (mild) Difficulties with hygiene activities: Yes (slight) Difficulties with handwriting: Yes (moderate) Difficulties with doing hobbies and other activities: Yes (mild) Difficulties turning in bed: Yes (slight) Difficulties getting out of bed, car or chair: Yes (mild) Tremors/Gait/Balance Shaking or tremors: Yes (slight) Walking and balance problems: Yes (slight) Number of falls in the Last Month: None Gait freezing: Yes (mild) Autonomic/Pain Lightheadeness on standing: Yes (slight) Urinary problems: Yes (mild) Constipation problems: 0 (none) Pain and other sensations: 0 (none) Speech/Swallowing Speech problems: Yes (slight) Drooling: Yes (moderate) Chewing and swallowing problems: 0 (none) Sleep/Fatigue Sleep problems: Yes (mild) Daytime sleepiness: Yes (mild) Fatigue: Yes (slight) Mood/Behavior Depression: PHQ-9 Score: 4 usually representing no significant (0-4) depression. Anxiety: JUANJO-7 Total Score: 1 usually representing no significant (0-4) anxiety. Finally, the following table shows the patient's overall global physical and mental health using the PROMIS scale: PROMIS-10 Flowsheet Row [facility] from 11/04/2023 in [facility] Appointment from 11/01/2023 in [facility] Global Physical Health T Score 47.7 47.7 Global Mental Health T Score 48.3 48.3 0-10 Standard Pain Scale 5 5 *PROMIS-10 scoring scale: mean = 50, over 50 is above average, under 50 is below average Objective Neurological Exam Mental Status Awake, alert and oriented to person, place and time. Speech is normal. Language is fluent with no aphasia. Motor Moderate hypomimia; no tremors; moderate dyskinesias on the head; mild on the face; moderate to severe bradykinesia on bilateral finger and hand movements. . Assessment and Plan: Assessment Mr. Carver is a right-handed 78 year old male with Parkinson disease with onset and 2014 (more content not included)... [facility] 10-10-2023 Miscellaneous Notes Request from patient requesting refill. Please E-Scribe to Tammy Mcc[facility]. Last OV: 06/03/23 with SS Future OV: 11/01/23 with [facility] Requested Prescriptions Pending Prescriptions Disp Refills carbidopa-levodopa (SINEMET 25-100) 25-100 mg per tablet 135 tablet 5 Sig: Take 1.5 tablet every 5 hours, 3 times daily. Leonora S documented in this encounter [facility] 10-09-2023 Miscellaneous Notes patient requesting refill as follows: Last FUV May 2023 with Patience. [facility] Requested Prescriptions Pending Prescriptions Disp Refills amantadine HCl (SYMMETREL) 100 mg capsule 360 capsule 1 Sig: Take 2 tablets at 9am, then 1 tablet at 1pm and 5pm. Upon approval, script will be sent electronically to the patient's pharmacy. Sammie Pruitt, Division Officer [employer] documented in this encounter [facility] 09-26-2023 Miscellaneous Notes Pt requesting refill as follows: Last FUV May 2023 with Patience. Requested Prescriptions Pending Prescriptions Disp Refills carbidopa-levodopa CR (SINEMET CR) 25-100 mg per tablet 30 tablet 11 Sig: Take 1 tablet by mouth once daily. At bedtime. Upon approval, script will be sent electronically to the patient's pharmacy. Sammie Pruitt, Division Officer [employer] documented in this encounter [facility] 07-05-2023 Miscellaneous Notes Patient requests via MyChart refills as follows: When approved Rx escribed to Tammy Mccain 06/03/23 FUV w/Patience Marcos SECURITY INVESTIGATOR Requested Prescriptions Pending Prescriptions Disp Refills carbidopa-levodopa CR (SINEMET CR) 25-100 mg per tablet 30 tablet 5 Sig: Take 1 tablet by mouth. Please review and advise. Jessica Anders documented in this encounter [facility] 06-03-2023 Note HNO ID: [id number] Author: Patience Marcos APRN.SECURITY INVESTIGATOR Service: ? Author Type: Nurse Practitioner Type: Progress Notes Filed: 06/04/2023 10:19 AM Note Text: [facility] - FOLLOW UP EVALUATION - VIRTUAL VISIT Sarika Montaño [address] [facility] [address] Dear Sarika Montaño: I had the pleasure of seeing Mr. Carver for follow-up today. As you know he is a 77 year old right-handed male with a history of Parkinson disease since 2014. We had a visit using: SingWhoom Sing[employer] I have communicated my name and active licensure. The patient's identity and physical location were verified at the time of this visit. Either the patient or their legal door to door sales representative has been informed of the risks and benefits of -- and alternatives to -- treatment through a remote evaluation and consents to proceed with the evaluation remotely. Subjective During his previous visit the following plan was made: Previous plan-02/27/2023 Visit: Continue amantadine twice per day. You can take is as your are or with your first two doses. We decreased your evening sinemet dose to 1 tab from 1.5 to see if this helps reduce your dyskinesias. Patient's perception of importance for healthcare provider to let them know of research trials for which they may be eligible? Somewhat important Interested in clinical research? Not currently Interval History Still have improved swelling with lower dose of Amantadine. He notices dyskinesias more when hurried or stressed. He has not had any issue with reducing his last dose to 1 tablet. He feels he does the best from 6pm-12Am. Middle of the day he feels a little worse. Ear congestion leads to eye tearing, saw ENT and PCP, nothing structurally wrong. His ear issue seems to impact balance. Movement Disorders Medications Schedule - as of the start of the visit: Medications 9AM 1PM 5PM bedtime Carbidopa/levodopa 25/100 mg 1.5 1.5 1 Amantadine 100 mg 1 1 CR carbidopa.levodopa 25/100 mg 1 Parkinson's Motor Complications Medication benefit onset: unclear Medication duration: unclear Wearing off: no Painful off-state dystonia: no Dyskinesia: yes (Comment: not bothersome) Prior Anti-Parkinson Therapies Amantadine IR ALLERGIES No Known Allergies Current Outpatient Medications Medication Sig carbidopa-levodopa (SINEMET 25-100) 25-100 mg per tablet Take 1.5 tablet every 5 hours, 3 times daily. amantadine HCl (SYMMETREL) 100 mg capsule Take 2 tablets at 9am, then 1 tablet at 1pm and 5pm. carbidopa-levodopa CR (SINEMET CR) 25-100 mg per tablet Take 1 tablet by mouth daily at bedtime. hydrochlorothiazide 12.5 mg ORAL tablet Take 12.5 mg by mouth once daily. Take one(1) tablet daily. No current facility-administered medications for this visit. Questionnaires: In addition, the following areas that may be affected by abnormal involuntary movements were evaluated: Daily activities Difficulties with eating: Yes (slight) Difficulties in dressing: Yes (slight) Difficulties with hygiene activities: Yes (slight) Difficulties with handwriting: Yes (moderate) Difficulties with doing hobbies and other activities: Yes (slight) Difficulties turning in bed: Yes (slight) Difficulties getting out of bed, car or chair: Yes (slight) Tremors/Gait/Balance Shaking or tremors: Yes (slight) Walking and balance problems: Yes (slight) Number of falls in the Last Month: None Gait freezing: Yes (slight) Autonomic/Pain Lightheadeness on standing: Yes (slight) Urinary problems: Yes (slight) Constipation problems: Yes (slight) Pain and other sensations: 0 (none) Speech/Swallowing Speech problems: Yes (slight) Drooling: Yes (moderate) Chewing and swallowing problems: 0 (none) Sleep/Fatigue Sleep problems: Yes (mild) Daytime sleepiness: Yes (mild) Fatigue: Yes (slight) Mood/Behavior Depression: PHQ-9 Score: 3 usually representing no significant (0-4) depression. Anxiety: JUANJO-7 Total Score: 0 usually representing no significant (0-4) anxiety. Finally, the following table shows the patient's overall global physical and mental health using the PROMIS scale: PROMIS-10 Flowsheet Row [facility] from 06/03/2023 in [facility] Office Visit from 02/27/2023 in [facility] Global Physical Health T Score 50.8 50.8 Global Mental Health T Score 53.3 53.3 0-10 Standard Pain Scale 5 4 *PROMIS-10 scoring scale: mean = 50, over 50 is above average, under 50 is below average Objective He is alone. General: Awake, alert, interactive, no acute distress, good nutritional status, normal development, well-kept Assessment and Plan: Assessment Mr. Carver is a right-handed 77 year old male with Parkinson disease with onset and 2014 with left bradykinetic -reviewed presentation, dystonia and gait/postural changes. He was diagnosed in 2016. His symptoms were felt to be levodopa respo (more content not included)... [facility] 06-03-2023 Instructions Patience Marcos APRN.CNP - 06/03/2023 1:15 PM EDT Reduce 12pm dose of Sinemet to 1 tablet. Please let us know if you have any worsening of motor function with this. The goal is to hopefully improve your dyskinesias in the middle of the day. Try an OTC decongestant on days your ear fullness is bothering you. This could be related to the slowed drainage from PD since you do not have any structural issues. documented in this encounter [facility] 06-03-2023 History of Presen t illness Narrative [facility] - FOLLOW UP EVALUATION - VIRTUAL VISIT Sarika Montaño [address] [facility] [address] [facility] [address] Dear Sarika Montaño: I had the pleasure of seeing Mr. Carver for follow-up today. As you know he is a 77 year old right-handed male with a history of Parkinson disease since 2014. We had a visit using: Sing[employer]om Box Jump I have communicated my name and active licensure. The patient's identity and physical location were verified at the time of this visit. Either the patient or their legal door to door sales representative has been informed of the risks and benefits of -- and alternatives to -- treatment through a remote evaluation and consents to proceed with the evaluation remotely. Subjective During his previous visit the following plan was made: Previous plan-02/27/2023 Visit: Continue amantadine twice per day. You can take is as your are or with your first two doses. We decreased your evening sinemet dose to 1 tab from 1.5 to see if this helps reduce your dyskinesias. Patient's perception of importance for healthcare provider to let them know of research trials for which they may be eligible? Somewhat important Interested in clinical research? Not currently Interval History Still have improved swelling with lower dose of Amantadine. He notices dyskinesias more when hurried or stressed. He has not had any issue with reducing his last dose to 1 tablet. He feels he does the best from 6pm-12Am. Middle of the day he feels a little worse. Ear congestion leads to eye tearing, saw ENT and PCP, nothing structurally wrong. His ear issue seems to impact balance. Movement Disorders Medications Schedule - as of the start of the visit: Medications 9AM 1PM 5PM bedtime Carbidopa/levodopa 25/100 mg 1.5 1.5 1 Amantadine 100 mg 1 1 CR carbidopa.levodopa 25/100 mg 1 Parkinson's Motor Complications Medication benefit onset: unclear Medication duration: unclear Wearing off: no Painful off-state dystonia: no Dyskinesia: yes (Comment: not bothersome) Prior Anti-Parkinson Therapies Amantadine IR ALLERGIES No Known Allergies Current Outpatient Medications Medication Sig carbidopa-levodopa (SINEMET 25-100) 25-100 mg per tablet Take 1.5 tablet every 5 hours, 3 times daily. amantadine HCl (SYMMETREL) 100 mg capsule Take 2 tablets at 9am, then 1 tablet at 1pm and 5pm. carbidopa-levodopa CR (SINEMET CR) 25-100 mg per tablet Take 1 tablet by mouth daily at bedtime. hydrochlorothiazide 12.5 mg ORAL tablet Take 12.5 mg by mouth once daily. Take one(1) tablet daily. No current facility-administered medications for this visit. Questionnaires: In addition, the following areas that may be affected by abnormal involuntary movements were evaluated: Daily activities Difficulties with eating: Yes (slight) Difficulties in dressing: Yes (slight) Difficulties with hygiene activities: Yes (slight) Difficulties with handwriting: Yes (moderate) Difficulties with doing hobbies and other activities: Yes (slight) Difficulties turning in bed: Yes (slight) Difficulties getting out of bed, car or chair: Yes (slight) Tremors/Gait/Balance Shaking or tremors: Yes (slight) Walking and balance problems: Yes (slight) Number of falls in the Last Month: None Gait freezing: Yes (slight) Autonomic/Pain Lightheadeness on standing: Yes (slight) Urinary problems: Yes (slight) Constipation problems: Yes (slight) Pain and other sensations: 0 (none) Speech/Swallowing Speech problems: Yes (slight) Drooling: Yes (moderate) Chewing and swallowing problems: 0 (none) Sleep/Fatigue Sleep problems: Yes (mild) Daytime sleepiness: Yes (mild) Fatigue: Yes (slight) Mood/Behavior Depression: PHQ-9 Score: 3 usually representing no significant (0-4) depression. Anxiety: JUANJO-7 Total Score: 0 usually representing no significant (0-4) anxiety. Finally, the following table shows the patient's overall global physical and mental health using the PROMIS scale: PROMIS-10 Flowsheet Row Distance Health from 06/03/2023 in [facility] Visit from 02/27/2023 in [facility] Global Physical Health T Score 50.8 50.8 Global Mental Health T Score 53.3 53.3 0-10 Standard Pain Scale 5 4 *PROMIS-10 scoring scale: mean = 50, over 50 is above average, under 50 is below average Objective He is alone. General: Awake, alert, interactive, no acute distress, good nutritional status, normal development, well-kept Assessment and Plan: Assessment Mr. Carver is a right-handed 77 year old male with Parkinson disease with onset and 2014 with left bradykinetic -reviewed presentation, dystonia and gait/postural changes. He was diagnosed in 2016. His symptoms were felt to be levodopa responsive. His course is complicated by dyskinesias and mild dystonia. He developed leg swelling with amantadine. He continues to do well with the reduction of Amantadine. He continues to have orofacial dyskinesias, mostly in the afternoon. He feels his best time is in the evenings. We will try reducing his second dose of the day to see if this helps dyskinesias, but does not worsen motor function. He does not have significant wearing off, so this may be a better dose for him. He also has been having a sensation of ear fullness with will then lead to tearing of his eyes at times. He saw his PCP and an ENT who did not find anything structurally wrong with his ears or sinuses. We discussed this could be related to the slowing of drainage r/t PD, so he can try OTC decongestants when it is happening to see if this improves these symptoms. He feels when it is happening, it also impacts his balance at times. He will follow up with Dr. Kyle in six months. The following are the current problems noted and addressed during this visit: No diagnosis found. Plan 06/03/2023 Visit: Reduce 12pm dose of Sinemet to 1 tablet. Please let us know if you have any worsening of motor function with this. The goal is to hopefully improve your dyskinesias in the middle of the day. Try an OTC decongestant on days your ear fullness is bothering you. This could be related to the slowed drainage from PD since you do not have any structural issues. Interested in clinical research? Not currently Updated Movement Disorder Medication Schedule: Medications 9AM 1PM 5PM bedtime Carbidopa/levodopa 25/100 mg 1.5 1 1 Amantadine 100 mg 1 1 CR carbidopa.levodopa 25/100 mg 1 Thank you for allowing me to be part of the clinical care of this patient! I look forward to continued participation in the patient s care with you. Please do not hesitate to call with any questions. Sincerely, Patience Marcos APRN.SECURITY INVESTIGATOR documented in this encounter [facility] 02-27-2023 Note HNO ID: [id number] Author: Judith Rosenberg APRN.SECURITY INVESTIGATOR Service: ? Author Type: Nurse Practitioner Type: Progress Notes Filed: 02/27/2023 12:07 PM Note Text: [facility] - FOLLOW UP EVALUATION Sarika Montaño MD [address] [place] [address] [facility] [address] Dear Sarika Montaño MD: I had the pleasure of seeing Mr. Carver for follow-up today. As you know he is a 77 year old right-handed male with a history of Parkinson disease since 2014. He is seen with a daughter. Subjective Previous Plan-11/02/2022 Visit: Parkinson disease: continue with current levodopa dose Leg swelling: decrease amantadine to 100 mg three times daily Dyskinesias: monitor closely Interval History: Motor : Started PT, 830 pm to midnight is the best time for him from a motor perspective. He is experiencing dyskinesia in his head and mouth which are better in the evening. Patient presents today for a follow up visit. Cut back amantadine to two tabs per day and the swelling in his BLE resolved Sleep is ok - trouble staying asleep. Denies RBD Constipation takes metamucil prn No urinary issues, some days frequency is an issue Cognition - no issues No VH Exercise PT several times per week and exercise at home Drives locally only Independent with ALDs Movement Disorders Medications Schedule - as of the start of the visit: Medications 9AM 1PM 5PM bedtime Carbidopa/levodopa 25/100 mg 1.5 1.5 1 Amantadine 100 mg 1 1 1 CR carbidopa.levodopa 25/100 mg 1 Parkinson's Motor Complications Medication benefit onset: unclear Medication duration: unclear Wearing off: no Painful off-state dystonia: no Dyskinesia: yes (Comment: not bothersome) Prior Anti-Parkinson Therapies Amantadine IR Questionnaires: In addition, the following areas that may be affected by abnormal involuntary movements were evaluated: Daily activities Difficulties with eating: Yes (slight) Difficulties in dressing: Yes (slight) Difficulties with hygiene activities: Yes (slight) Difficulties with handwriting: Yes (mild) Difficulties with doing hobbies and other activities: Yes (slight) Difficulties turning in bed: Yes (slight) Difficulties getting out of bed, car or chair: Yes (slight) Tremors/Gait/Balance Shaking or tremors: Yes (slight) Walking and balance problems: Yes (slight) Number of falls in the Last Month: Zero Gait freezing: Yes (slight) Autonomic/Pain Lightheadeness on standing: Yes (slight) Urinary problems: Yes (slight) Constipation problems: Yes (slight) Pain and other sensations: 0 (none) Speech/Swallowing Speech problems: Yes (slight) Drooling: Yes (moderate) Chewing and swallowing problems: 0 (none) Sleep/Fatigue Sleep problems: Yes (mild) Daytime sleepiness: Yes (slight) Fatigue: Yes (slight) Mood/Behavior Depression: PHQ-9 Score: 3 usually representing no significant (0-4) depression. Anxiety: JUANJO-7 Total Score: 0 usually representing no significant (0-4) anxiety. Finally, the following table shows the patient's overall global physical and mental health using the PROMIS scale: PROMIS-10 Flowsheet Row Office Visit from 02/27/2023 in [facility] Visit from 08/29/2022 in [facility] Global Physical Health T Score 50.8 50.8 Global Mental Health T Score 53.3 -- 0-10 Standard Pain Scale 4 5 *PROMIS-10 scoring scale: mean = 50, over 50 is above average, under 50 is below average ALLERGIES No Known Allergies Current Outpatient Medications Medication Sig carbidopa-levodopa (SINEMET 25-100) 25-100 mg per tablet Take 1.5 tablet every 5 hours, 3 times daily. amantadine HCl (SYMMETREL) 100 mg capsule Take 2 tablets at 9am, then 1 tablet at 1pm and 5pm. carbidopa-levodopa CR (SINEMET CR) 25-100 mg per tablet Take 1 tablet by mouth daily at bedtime. hydrochlorothiazide 12.5 mg ORAL tablet Take 12.5 mg by mouth once daily. Take one(1) tablet daily. No current facility-administered medications for this visit. Objective Vital Signs: BP 168/77 (BP Site: Right Arm, BP Position: Sitting, BP Cuff Size: Regular Adult) Pulse 60 Ht 177.8 cm (5' 10 ) SpO2 98% BMI 21.19 kg/m? Orthostatic Vitals: None for this encounter No LMP for male patient. Body mass index is 21.19 kg/m?. General Physical Examination: He is accompanied by his child. General: Awake, alert, interactive, no acute distress, good nutritional status, normal development, well-kept General Neurological Examination: Neurological Exam Mental Status Awake, alert and oriented to person, place and time. Movement Disorders Scales Performed: MDS-UPDRS Motor subscale condition of exam Medication Off/On/Naiive ON Time of UPDRS 1137 Time of Last Medication 2100 Last Medication Taken CR 25/100 Sinemet DBS Right N/A DBS Left N/A MDS-UPDRS Motor subscale scores Speech 1-Slight. Loss of modulation, diction or volume, but still all words eas (more content not included)... [facility] 02-27-2023 Instructions Judith Rosenberg APRN.SECURITY INVESTIGATOR - 02/27/2023 11:43 AM EDT It was a pleasure to see you today. We addressed the following diagnoses: Parkinson's disease (hcc) (primary encounter diagnosis) My recommendations are as follows: 02/27/2023 Visit: Continue amantadine twice per day. You can take is as your are or with your first two doses. We decreased your evening sinemet dose to 1 tab from 1.5. Movement Disorders Medication Schedule: Medications 9AM 1PM 5PM bedtime Carbidopa/levodopa 25/100 mg 1.5 1.5 1 Amantadine 100 mg 1 1 CR carbidopa.levodopa 25/100 mg 1 No follow-ups on file. If there are any concerns before your next visit, please call or you can send a message through [employer]. You can also now schedule and select appointments through [employer]. Judith Rosenberg APRN.SUSAN documented in this encounter [facility] 02-27-2023 History of Presen t illness Narrative [facility] - FOLLOW UP EVALUATION Sarika Montaño MD [address] [place] [address] [facility] [address] Dear Sarika Montaño MD: I had the pleasure of seeing Mr. Carver for follow-up today. As you know he is a 77 year old right-handed male with a history of Parkinson disease since 2014. He is seen with a daughter. Subjective Previous Plan-11/02/2022 Visit: Parkinson disease: continue with current levodopa dose Leg swelling: decrease amantadine to 100 mg three times daily Dyskinesias: monitor closely Interval History: Motor : Started PT, 830 pm to midnight is the best time for him from a motor perspective. He is experiencing dyskinesia in his head and mouth which are better in the evening. Patient presents today for a follow up visit. Cut back amantadine to two tabs per day and the swelling in his BLE resolved Sleep is ok - trouble staying asleep. Denies RBD Constipation takes metamucil prn No urinary issues, some days frequency is an issue Cognition - no issues No VH Exercise PT several times per week and exercise at home Drives locally only Independent with ALDs Movement Disorders Medications Schedule - as of the start of the visit: Medications 9AM 1PM 5PM bedtime Carbidopa/levodopa 25/100 mg 1.5 1.5 1 Amantadine 100 mg 1 1 1 CR carbidopa.levodopa 25/100 mg 1 Parkinson's Motor Complications Medication benefit onset: unclear Medication duration: unclear Wearing off: no Painful off-state dystonia: no Dyskinesia: yes (Comment: not bothersome) Prior Anti-Parkinson Therapies Amantadine IR Questionnaires: In addition, the following areas that may be affected by abnormal involuntary movements were evaluated: Daily activities Difficulties with eating: Yes (slight) Difficulties in dressing: Yes (slight) Difficulties with hygiene activities: Yes (slight) Difficulties with handwriting: Yes (mild) Difficulties with doing hobbies and other activities: Yes (slight) Difficulties turning in bed: Yes (slight) Difficulties getting out of bed, car or chair: Yes (slight) Tremors/Gait/Balance Shaking or tremors: Yes (slight) Walking and balance problems: Yes (slight) Number of falls in the Last Month: Zero Gait freezing: Yes (slight) Autonomic/Pain Lightheadeness on standing: Yes (slight) Urinary problems: Yes (slight) Constipation problems: Yes (slight) Pain and other sensations: 0 (none) Speech/Swallowing Speech problems: Yes (slight) Drooling: Yes (moderate) Chewing and swallowing problems: 0 (none) Sleep/Fatigue Sleep problems: Yes (mild) Daytime sleepiness: Yes (slight) Fatigue: Yes (slight) Mood/Behavior Depression: PHQ-9 Score: 3 usually representing no significant (0-4) depression. Anxiety: JUANJO-7 Total Score: 0 usually representing no significant (0-4) anxiety. Finally, the following table shows the patient's overall global physical and mental health using the PROMIS scale: PROMIS-10 Flowsheet Row Office Visit from 02/27/2023 in [facility] Visit from 08/29/2022 in [facility] Global Physical Health T Score 50.8 50.8 Global Mental Health T Score 53.3 -- 0-10 Standard Pain Scale 4 5 *PROMIS-10 scoring scale: mean = 50, over 50 is above average, under 50 is below average ALLERGIES No Known Allergies Current Outpatient Medications Medication Sig carbidopa-levodopa (SINEMET 25-100) 25-100 mg per tablet Take 1.5 tablet every 5 hours, 3 times daily. amantadine HCl (SYMMETREL) 100 mg capsule Take 2 tablets at 9am, then 1 tablet at 1pm and 5pm. carbidopa-levodopa CR (SINEMET CR) 25-100 mg per tablet Take 1 tablet by mouth daily at bedtime. hydrochlorothiazide 12.5 mg ORAL tablet Take 12.5 mg by mouth once daily. Take one(1) tablet daily. No current facility-administered medications for this visit. Objective Vital Signs: BP 168/77 (BP Site: Right Arm, BP Position: Sitting, BP Cuff Size: Regular Adult) Pulse 60 Ht 177.8 cm (5' 10 ) SpO2 98% BMI 21.19 kg/m Orthostatic Vitals: None for this encounter No LMP for male patient. Body mass index is 21.19 kg/m . General Physical Examination: He is accompanied by his child. General: Awake, alert, interactive, no acute distress, good nutritional status, normal development, well-kept General Neurological Examination: Neurological Exam Mental Status Awake, alert and oriented to person, place and time. Movement Disorders Scales Performed: MDS-UPDRS Motor subscale condition of exam Medication Off/On/Naiive ON Time of UPDRS 1137 Time of Last Medication 2100 Last Medication Taken CR 25/100 Sinemet DBS Right N/A DBS Left N/A MDS-UPDRS Motor subscale scores Speech 1-Slight. Loss of modulation, diction or volume, but still all words easy to understand. Facial Expression 1-Slight. Minimal masked facies manifested only by decreased frequency of blinking. Rigidity Neck 1-Slight. Rigidity only detected with activation maneuver. Rigidity Right Upper Extremity 1-Slight. Rigidity only detected with activation maneuver. Rigidity Left Upper Extremity 2-Mild. Rigidity detected without the activation maneuver, but full range of motion is easily achieved. Rigidity Right Lower Extremity 2-Mild. Rigidity detected without the activation maneuver, but full range of motion is easily achieved. Rigidity Left Lower Extremity 2-Mild. Rigidity detected without the activation maneuver, but full range of motion is easily achieved. Finger Taps Right 2-Mild. a) 3 to 5 interruptions during tapping, b) mild slowing, c) the amplitude decrements midway in the 10-tap sequence. Finger Taps Left 2-Mild. a) 3 to 5 interruptions during tapping, b) mild slowing, c) the amplitude decrements midway in the 10-tap sequence. Hand Movements Right 1-Slight. a) the regular rhythm is broken with one or two interruptions or hesitations of the movement, b) slight slowing, c) the amplitude decrements near the end of the task. Hand Movements Left 1-Slight. a) the regular rhythm is broken with one or two interruptions or hesitations of the movement, b) slight slowing, c) the amplitude decrements near the end of the task. Arm Movements Right 1-Slight. a) the regular rhythm is broken with one or two interruptions or hesitations of the movement, b) slight slowing, c) the amplitude decrements near the end of the sequence. Arm Movements Left 1-Slight. a) the regular rhythm is broken with one or two interruptions or hesitations of the movement, b) slight slowing, c) the amplitude decrements near the end of the sequence. Toe Taps Right 1-Slight. a) the regular rhythm is broken with one or two interruptions or hesitations of the tapping movement, b) slight slowing, c) the amplitude decrements near the end of the ten taps. Toe Taps Left 1-Slight. a) the regular rhythm is broken with one or two interruptions or hesitations of the tapping movement, b) slight slowing, c) the amplitude decrements near the end of the ten taps. Leg Agility Right 1-Slight. a) the regular rhythm is broken with one or two interruptions or hesitations of the movement, b) slight slowing, c) the amplitude decrements near the end of the task. Leg Agility Left 1-Slight. a) the regular rhythm is broken with one or two interruptions or hesitations of the movement, b) slight slowing, c) the amplitude decrements near the end of the task. Arise From Chair 0-Normal. No problems. Able to arise quickly without hesitation. Gait 1-Slight. Independent walking with minor gait impairment. Gait Freezing 1-Slight. Freezing on starting, turning, or walking through doorway with a single halt during any of these events, but then continues smoothly without freezing during straight walking. Posture Stability 1-Slight. 3-5 steps, but subject recovers unaided. Posture 2-Mild. Definite flexion, scoliosis or leaning to one side, but patient can correct posture to normal posture when asked to do so. Body Bradykinesia 2-Mild. Mild global slowness and poverty of spontaneous movements. Postural Tremor Hand Right 0-Normal. No tremor. Postural Tremor Hand Left 0-Normal. No tremor. Kinetic Tremor Right 0-Normal. No tremor. Kinetic Tremor Left 0-Normal. No tremor. Rest Tremor Amplitude Right Upper Extremity 0-Normal. No tremor. Rest Tremor Amplitude Left Upper Extremity 0-Normal. No tremor. Rest Tremor Amplitude Right Lower Extremity 0-Normal. No tremor. Rest Tremor Amplitude Right Lower Extremity 0-Normal. No tremor. Rest Tremor Amplitude Lip/Jaw 0-Normal. No tremor. Rest Tremor Constancy 0-Normal. No tremor. MDS-UPDRS Motor subscale totals Left Total 10 Right Total 9 Midline Total 10 Tremor Total / 10 0 PIGD Total / 3 3 Overall Total 29 % Change Compared to Last Filed Total Assessment and Plan: Assessment Mr. Carver is a right-handed 77 year old year old male with Parkinson disease with onset and 2014 with left bradykinetic -reviewed presentation, dystonia and gait/postural changes. He was diagnosed in 2016. His symptoms were felt to be levodopa responsive. His course is complicated by dyskinesias and mild dystonia. He developed leg swelling with amantadine. The following are the current problems noted and addressed during this visit: Parkinson's disease (hcc) (primary encounter diagnosis) Motor fluctuations 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 in parkinson's disease (hcc) Dyskinesia Plan 02/27/2023 Visit: Continue amantadine twice per day. You can take is as your are or with your first two doses. We decreased your evening sinemet dose to 1 tab from 1.5 to see if this helps reduce your dyskinesias. Patient's perception of importance for healthcare provider to let them know of research trials for which they may be eligible? Somewhat important Interested in clinical research? Not currently Updated Movement Disorders Medication Schedule: Medications 9AM 1PM 5PM bedtime Carbidopa/levodopa 25/100 mg 1.5 1.5 1 Amantadine 100 mg 1 1 CR carbidopa.levodopa 25/100 mg 1 Return at or around: 05/30/23 Medical Decision Making: Problems: Low: Stable chronic illness Data: Assessment requiring an independent historian(s) Risk: Moderate: Drug management Medical Decision Making Level: 3 - Low Thank you for allowing me to be part of the clinical care of this patient! I look forward to continued participation in the patient s care with you. Please do not hesitate to call with any questions. Sincerely, Judith Rosenberg APRN.CNP documented in this encounter [facility] 02-01-2023 Miscellaneous Notes Patient requests via [employer] refills as follows: When approved Rx escribed to [facility]. 11/02/22 FUV w/F Requested Prescriptions Pending Prescriptions Disp Refills carbidopa-levodopa (SINEMET 25-100) 25-100 mg per tablet 135 tablet 5 Sig: Take 1.5 tablet every 5 hours, 3 times daily. amantadine HCl (SYMMETREL) 100 mg capsule 360 capsule 1 Sig: Take 2 tablets at 9am, then 1 tablet at 1pm and 5pm. Please review and advise. [facility] documented in this encounter [facility] 01-22-2023 Miscellaneous Notes Patient requests via [email or web address] refills as follows: When approved Rx escribed to [facility]. 11/02/22 FU w/F Requested Prescriptions Pending Prescriptions Disp Refills carbidopa-levodopa CR (SINEMET CR) 25-100 mg per tablet 30 tablet 5 Sig: Take 1 tablet by mouth daily at bedtime. Please review and advise. [facility] documented in this encounter [facility] 11-07-2022 Miscellaneous Notes Last FUV 11/02 with F. Script pending for approval. documented in this encounter [facility] 11-02-2022 History of Presen t illness Narrative [facility] - FOLLOW UP EVALUATION - VIRTUAL VISIT Sarika Montaño MD [address] [facility] [address] [facility] [id number] Dear Sarika Montaño MD: I had the pleasure of seeing Mr. Carver for follow-up today. As you know he is a 77 year old right-handed male with a history of Parkinson disease since 2014. He is seen alone. We had a visit using: [employer] I received consent from the patient to perform the visit using this platform. Subjective During his previous visit the following plan was made: Previous plan-08/29/2022 Visit: PD and dyskinesia - Take Sinemet at 1.5 tablet in the morning, afternoon at 1 pm, and take 1 tablet at 5 pm (dose reduction). Add CR Sinemet (long releases) 25/100 mg at 1 tablet taken at bedtime. Continue amantadine at same dose. Dystonia - wearing off dystonia. Described as mild and not painful. Let us know if this becomes an issue. Mild gait unsteadiness -physical therapy referral Mild constipation - monitor for now. Can consider Miralax as needed if becomes as an issue. Mild insomnia - let us know if this becomes a problem Interested in clinical research? Not currently Interval History No wearing off; mild dyskinesias, not bothersome; but with swollen ankles and hands. No hallucinations; cognition is stable; mood is stable; no falls; somewhat constipation but relieved by high fiber diet. Movement Disorders Medications Schedule - as of the start of the visit: Medications 9AM 1PM 5PM bedtime Carbidopa/levodopa 25/100 mg 1.5 1.5 1 Amantadine 100 mg 2 1 1 CR carbidopa.levodopa 25/100 mg 1 Parkinson's Motor Complications Medication benefit onset: unclear Medication duration: unclear Wearing off: no Painful off-state dystonia: no Dyskinesia: yes (Comment: not bothersome) Prior Anti-Parkinson Therapies Amantadine IR ALLERGIES No Known Allergies Current Outpatient Medications Medication Sig carbidopa-levodopa CR (SINEMET CR) 25-100 mg per tablet Take 1 tablet by mouth daily at bedtime. carbidopa-levodopa (SINEMET 25-100) 25-100 mg per tablet Take 1.5 tablet every 5 hours, 3 times daily. amantadine HCl (SYMMETREL) 100 mg capsule Take 2 tablets at 9am, then 1 tablet at 1pm and 5pm. hydrochlorothiazide 12.5 mg ORAL tablet Take 12.5 mg by mouth once daily. Take one(1) tablet daily. No current facility-administered medications for this visit. Questionnaires: In addition, the following areas that may be affected by abnormal involuntary movements were evaluated: Daily activities Difficulties with eating: Yes (slight) Difficulties in dressing: Yes (slight) Difficulties with hygiene activities: Yes (slight) Difficulties with handwriting: Yes (moderate) Difficulties with doing hobbies and other activities: Yes (slight) Difficulties turning in bed: Yes (slight) Difficulties getting out of bed, car or chair: Yes (slight) Tremors/Gait/Balance Shaking or tremors: Yes (slight) Walking and balance problems: Yes (slight) Number of falls in the Last Month: None Gait freezing: Yes (slight) Autonomic/Pain Lightheadeness on standing: Yes (slight) Urinary problems: Yes (slight) Constipation problems: Yes (slight) Pain and other sensations: 0 (none) Speech/Swallowing Speech problems: Drooling: Yes (moderate) Chewing and swallowing problems: 0 (none) Sleep/Fatigue Sleep problems: Yes (mild) Daytime sleepiness: Yes (mild) Fatigue: Yes (slight) Mood/Behavior Depression: PHQ-9 Score: 5 usually representing mild (5-9) depression. Anxiety: Finally, the following table shows the patient's overall global physical and mental health using the PROMIS scale: PROMIS-10 Flowsheet Row Office Visit from 08/29/2022 in [facility] Appointment from 01/24/2022 in [facility] Global Physical Health T Score 50.8 50.8 Global Mental Health T Score -- 50.8 0-10 Standard Pain Scale 5 5 *PROMIS-10 scoring scale: mean = 50, over 50 is above average, under 50 is below average In addition, the following non-motor symptoms and palliative concerns were evaluated: Sleep/Fatigue: REM sleep behavior disorder: no Restless Legs Syndrome: no Leg swelling: Yes Impaired sense of smell: No Cognition: Cognitive impairment: no MoCA Cognitive assessment: Hallucinations and delusions: no Apathy: no Impulse control disorder: Palliative Concerns: Caregiver burden: Not at all Spiritual concerns: Advanced directives on file: Palliative services: Therapy and Exercise: Last PT Date: Last OT Date: Date: Exercises Regularly: Objective Neurological Exam Mental Status Awake, alert and oriented to person, place and time. Language is fluent with no aphasia. Motor Mild hypomimia; mild head dyskinesias; moderate bradykinesia on bilateral finger and hand movements. Assessment and Plan: Assessment Mr. Carver is a right-handed 77 year old male with Parkinson disease with onset and 2014 with left bradykinetic -reviewed presentation, dystonia and gait/postural changes. He was diagnosed in 2016. His symptoms were felt to be levodopa responsive. His course is complicated by dyskinesias and mild dystonia. No wearing off. He developed leg swelling with amantadine. The following are the current problems noted and addressed during this visit: Pd (parkinson's disease) ([facility]) (primary encounter diagnosis) Levodopa-induced dyskinesia Sialorrhea Bilateral leg edema Plan 11/02/2022 Visit: Parkinson disease: continue with current levodopa dose Leg swelling: decrease amantadine to 100 mg three times daily Dyskinesias: monitor closely Interested in clinical research? Already participating in research Updated Movement Disorder Medication Schedule: Medications 9AM 1PM 5PM bedtime Carbidopa/levodopa 25/100 mg 1.5 1.5 1 Amantadine 100 mg 1 1 1 CR carbidopa.levodopa 25/100 mg 1 Medical Decision Making: Problems: Moderate: 2+ stable chronic illnesses and New problem with uncertain prognosis Risk: Moderate: Drug management and Moderate risk from testing/treatment Medical Decision Making Level: 4 - Moderate Thank you for allowing me to be part of the clinical care of this patient! I look forward to continued participation in the patient s care with you. Please do not hesitate to call with any questions. Sincerely, Adi Kyle MD documented in this encounter [facility] 08-29-2022 Instructions Suha Raza MD - 08/29/2022 1:52 PM EST It was a pleasure to see you today. We addressed the following diagnoses: Pd (parkinson's disease) ([facility]) (primary encounter diagnosis) Levodopa-induced dyskinesia Sialorrhea Insomnia due to medical condition Dystonia My recommendations are as follows: 08/29/2022 Visit: PD and dyskinesia - Take Sinemet at 1.5 tablet in the morning, and 1.5 tablet in the afternoon at 1 pm, and take 1 tablet at 5 pm. Add CR Sinemet (long release) 25/100 mg at bedtime. Continue amantadine at same dose. Dystonia - new CR sinemet may help with morning toes and foot issue. Mild gait unsteadiness - consider psychical therapy Mild constipation - monitor for now. Can consider Miralax as needed if becomes as an issue. Movement Disorders Medication Schedule: Medications 9AM 1PM 5PM bedtime Carbidopa/levodopa 25/100 mg 1.5 1.5 1 Amantadine 100 mg 2 1 1 CR carbidopa.levodopa 25/100 mg 1 Return in about 2 months (around 10/29/2022) for Virtual Visit. If there are any concerns before your next visit, please call or you can send a message through [employer]. You can also now schedule and select appointments through [employer]. Suha Raza MD documented in this encounter [facility] 08-29-2022 History of Presen t illness Narrative [facility] - FOLLOW UP EVALUATION Sarika Montaño MD [address] [place] [facility] [id number] I had the pleasure of seeing Mr. Carver for follow up today. He is a 76 year old right-handed male with a history of Parkinson disease since 2014. He is seen with a daughter. Subjective Previous Plan-02/23/2022 Visit: PD - continue current levodopa and amantadine doses Dyskinesias - not bothersome, will observe for now Sialorrhea - offered neurotoxin injections; says he will keep it in mind Interval History: Jamie thinks that he is doing well. He is experiencing frequent dyskinesias affecting the face and head. But they do bother him. His temperature is a bit challenging but he feels they are likely to happen 30 minutes after dose of Sinemet. He thinks they are more likely to happen in the afternoon. However, today he had active dyskinesias in the office in the same distribution and his last dose was 4 hours ago. It is hard to get started in the morning as his walking is not great and he has left foot issues with which he has pain with extension of the hallux. The symptoms improve as the day goes on. He feels that his best time in the day is 8 PM to midnight. No cognitive concerns voiced. No hallucination. Does not endorse dizziness as he stands slowly initially. Drooling is minor. He feels that his balance is not great but he has not had falls recently. Parkinson's Medication Schedule - as of the start of the visit: Medications 9AM 1PM 5PM bedtime Carbidopa/levodopa 25/100 mg 1.5 1.5 1.5 Amantadine 100 mg 2 1 1 Parkinson's Motor Complications Medication benefit onset: unclear Medication duration: unclear Painful off-state dystonia: no Dyskinesia: yes Prior Anti-Parkinson Therapies Amantadine IR Questionnaires In addition, the following areas that may be affected by abnormal involuntary movements were evaluated: Daily activities Difficulties with eating: Yes (slight) Difficulties in dressing: Yes (slight) Difficulties with hygiene activities: Yes (slight) Difficulties with handwriting: Yes (moderate) Difficulties with doing hobbies and other activities: Yes (moderate) Difficulties turning in bed: Yes (slight) Difficulties getting out of bed, car or chair: Yes (mild) Tremors/Gait/Balance Shaking or tremors: Yes (slight) Walking and balance problems: Yes (slight) Number of falls in the Last Month: Zero Gait freezing: Yes (slight) Autonomic/Pain Lightheadeness on standing: Yes (slight) Urinary problems: Yes (slight) Constipation problems: Yes (mild) Pain and other sensations: 0 (none) Speech/Swallowing Speech problems: Drooling: Yes (mild) Chewing and swallowing problems: 0 (none) Sleep/Fatigue Sleep problems: Yes (mild) Daytime sleepiness: Yes (mild) Fatigue: Yes (slight) Mood/Behavior Depression: PHQ-9 Score: 5 usually representing mild (5-9) depression. Anxiety: JUANJO-7 Total Score: 0 usually representing no significant (0-4) anxiety. Finally, the following table shows the patient's overall global physical and mental health using the PROMIS scale: PROMIS-10 Flowsheet Row Office Visit from 08/29/2022 in [facility] Appointment from 01/24/2022 in [facility] Global Physical Health T Score 50.8 50.8 Global Mental Health T Score -- 50.8 0-10 Standard Pain Scale 5 5 *PROMIS-10 scoring scale: mean = 50, over 50 is above average, under 50 is below average In addition, the following Parkinson Lifestyle-associated features were evaluated: Conditions Prior to Dx: Depression: No Anxiety: No Melanoma: No Constipation: No Yelling: No Head Trauma: No Habits/exposures Prior to Dx Smoking: Caffeinated coffee (1-cup+): Caffeinated soda/tea (2 cups+): Alcohol (1 bottle/shot/glass+): Exercise (3x/wk+): Ibuprofen use (1x/wk+): Pesticides: Welding: ALLERGIES No Known Allergies Current Outpatient Medications Medication Sig carbidopa-levodopa (SINEMET 25-100) 25-100 mg per tablet Take 1.5 tablet every 5 hours, 3 times daily. amantadine HCl (SYMMETREL) 100 mg capsule Take 2 tablets at 9am, then 1 tablet at 1pm and 5pm. hydrochlorothiazide 12.5 mg ORAL tablet Take 12.5 mg by mouth once daily. Take one(1) tablet daily. carbidopa-levodopa CR (SINEMET CR) 25-100 mg per tablet Take 1 tablet by mouth daily at bedtime. No current facility-administered medications for this visit. Objective Vital Signs: BP 172/79 (BP Site: Left Arm, BP Position: Sitting, BP Cuff Size: Regular Adult) Pulse 65 Wt 67 kg (147 lb 11.2 oz) SpO2 99% BMI 21.19 kg/m Orthostatic Vitals: Sitting: BP 172/79 Pulse 65 Standing: BP 163/88 Pulse 70 Weight: 67 kg (147 lb 11.2 oz) No LMP for male patient. Body mass index is 21.19 kg/m . General Physical Examination: General: Awake, alert, interactive, no acute distress. Mild swelling of the hands and the feet. Hands are a bit cold. General Neurological Examination: Neurological Exam Mental Status Awake, alert and oriented to person, place and time. Facial dyskinesias and head dyskinesias. Movement Disorders Cognitive and Motor Biomeasures: Processing Speed Test Total Number Correct:30; Z Score: -0.6 Visual Memory Test Raw Score: 27; Z Score: -1.22 Manual Dexterity Test (max = 180 secs) Left Hand Time: 48.12; Right Hand Time: 39.66 Walking Speed Test (25 foot walk): 7.67 *Z score interpretation: higher than -1.5 is within normal; -1.5 to -2.0 represents mild impairment; lower than -2.0 represents significant impairment Movement Disorders Scales Performed: MDS-UPDRS Motor subscale condition of exam Medication Off/On/Naiive OFF Time of UPDRS Time of Last Medication Last Medication Taken 0900 DBS Right N/A DBS Left N/A MDS-UPDRS Motor subscale scores Speech 2-Mild. Loss of modulation, diction, or volume, with a few words unclear, but the overall sentences easy to follow. Facial Expression 1-Slight. Minimal masked facies manifested only by decreased frequency of blinking. Rigidity Neck 1-Slight. Rigidity only detected with activation maneuver. Rigidity Right Upper Extremity 2-Mild. Rigidity detected without the activation maneuver, but full range of motion is easily achieved. Rigidity Left Upper Extremity 2-Mild. Rigidity detected without the activation maneuver, but full range of motion is easily achieved. Rigidity Right Lower Extremity 2-Mild. Rigidity detected without the activation maneuver, but full range of motion is easily achieved. Rigidity Left Lower Extremity 2-Mild. Rigidity detected without the activation maneuver, but full range of motion is easily achieved. Finger Taps Right 3-Moderate. a) more than 5 interruptions during tapping or at least one longer arrest (freeze) in ongoing movement, b) moderate slowing, c) the amplitude decrements starting after the 1st tap. Finger Taps Left 3-Moderate. a) more than 5 interruptions during tapping or at least one longer arrest (freeze) in ongoing movement, b) moderate slowing, c) the amplitude decrements starting after the 1st tap. Hand Movements Right 2-Mild. a) 3 to 5 interruptions during the movements, b) mild slowing, c) the amplitude decrements midway in the task. Hand Movements Left 2-Mild. a) 3 to 5 interruptions during the movements, b) mild slowing, c) the amplitude decrements midway in the task. Arm Movements Right 1-Slight. a) the regular rhythm is broken with one or two interruptions or hesitations of the movement, b) slight slowing, c) the amplitude decrements near the end of the sequence. Arm Movements Left 2-Mild. a) 3 to 5 interruptions during the movements, b) mild slowing, c) the amplitude decrements midway in the sequence. Toe Taps Right 3-Moderate. a) more than 5 interruptions during the tapping movements or at least one longer arrest (freeze) in ongoing movement, b) moderate slowing, c) the amplitude decrements starting after the first tap. Toe Taps Left 3-Moderate. a) more than 5 interruptions during the tapping movements or at least one longer arrest (freeze) in ongoing movement, b) moderate slowing, c) the amplitude decrements starting after the first tap. Leg Agility Right 1-Slight. a) the regular rhythm is broken with one or two interruptions or hesitations of the movement, b) slight slowing, c) the amplitude decrements near the end of the task. Leg Agility Left 2-Mild. a) 3 to 5 interruptions during the movements, b) mild slowness, c) the amplitude decrements midway in the task. Arise From Chair 2-Mild. Pushes self up from arms of chair without difficulty. Gait 2-Mild. Independent walking but with substantial gait impairment. Gait Freezing 0-Normal. No freezing. Posture Stability 1-Slight. 3-5 steps, but subject recovers unaided. Posture 2-Mild. Definite flexion, scoliosis or leaning to one side, but patient can correct posture to normal posture when asked to do so. Body Bradykinesia 2-Mild. Mild global slowness and poverty of spontaneous movements. Postural Tremor Hand Right 1-Slight. Tremor is present but less than 1cm in amplitude. Postural Tremor Hand Left 0-Normal. No tremor. Kinetic Tremor Right 0-Normal. No tremor. Kinetic Tremor Left 0-Normal. No tremor. Rest Tremor Amplitude Right Upper Extremity 1-Slight. < 1 cm in maximal amplitude. Rest Tremor Amplitude Left Upper Extremity 0-Normal. No tremor. Rest Tremor Amplitude Right Lower Extremity 0-Normal. No tremor. Rest Tremor Amplitude Right Lower Extremity 0-Normal. No tremor. Rest Tremor Amplitude Lip/Jaw 0-Normal. No tremor. Rest Tremor Constancy 1-Slight. Tremor at rest is present < 25% of the entire examination period. MDS-UPDRS Motor subscale totals Left Total 16 Right Total 16 Midline Total 13 Tremor Total / 10 3 PIGD Total / 3 3 Overall Total 46 % Change Compared to Last Filed Total Assessment and Plan: Assessment Mr. Carver is a right-handed 76 year old year old male with Parkinson disease with onset and 2015 with left bradykinetic -reviewed presentation, dystonia and gait/postural changes. He was diagnosed in 2015. His symptoms were felt to be levodopa responsive. His course is complicated by dyskinesias and mild dystonia. He continues to have active and bothersome dyskinesias of the face and the hand despite high-dose of amantadine. Patient seems to describe on dose dyskinesia that he was dyskinetic by the end of his dose during his office evaluation today. He reports mild left hallux dystonia in the morning. The following are the current problems noted and addressed during this visit: Pd (parkinson's disease) ([facility]) (primary encounter diagnosis) Levodopa-induced dyskinesia Sialorrhea Insomnia due to medical condition Dystonia Plan 08/29/2022 Visit: PD and dyskinesia - Take Sinemet at 1.5 tablet in the morning, afternoon at 1 pm, and take 1 tablet at 5 pm (dose reduction). Add CR Sinemet (long releases) 25/100 mg at 1 tablet taken at bedtime. Continue amantadine at same dose. Dystonia - wearing off dystonia. Described as mild and not painful. Let us know if this becomes an issue. Mild gait unsteadiness -physical therapy referral Mild constipation - monitor for now. Can consider Miralax as needed if becomes as an issue. Mild insomnia - let us know if this becomes a problem Interested in clinical research? Not currently Updated Parkinson's Medication Schedule: Medications 9AM 1PM 5PM bedtime Carbidopa/levodopa 25/100 mg 1.5 1.5 1 Amantadine 100 mg 2 1 1 CR carbidopa.levodopa 25/100 mg 1 Thank you for allowing me to be part of the clinical care of this patient! I look forward to continued participation in the patient s care with you. Please do not hesitate to call with any questions. Sincerely, Suha Raza MD , FRCPC Fellow, [facility] Neurology attending addendum: I personally saw and examined the patient with the Fellow. The case and management was discussed in detail. I agree with the above note regarding the patient's: Pd (parkinson's disease) ([facility]) (primary encounter diagnosis) Levodopa-induced dyskinesia Sialorrhea Insomnia due to medical condition Dystonia Level of service : 59566 (40-54 min). Time spent 40 min on the day of service, which included preparing to see the patient, [id number] patient care, completing clinical documentation, obtaining and/or reviewing separately obtained history, performing a medically appropriate examination, counseling and educating the patient/family/caregiver, and ordering medications, tests, or procedures. MD Elizabeth Jacobson Endowed Chair in Movement Disorders Director, [facility], [facility] registered diet technician (Neurology), [facility] documented in this encounter [facility] 04-24-2022 Miscellaneous Notes Request from patient requesting refill. Please E-Scribe to [facility]. Last OV: 02/23/22 with [facility] Future OV: 08/29/22 with [facility] Pending Prescriptions Disp Refills CARBIDOPA 25 MG-LEVODOPA 100 MG TABLET 135 tablet 5 Sig: Take 1.5 tablet every 5 hours, 3 times daily. ISADORA: No Leonora Blair documented in this encounter [facility] 02-23-2022 History of Presen t illness Narrative [facility] - FOLLOW UP EVALUATION Sarika Montaño MD [address] [place] [address] [facility] [id number] I had the pleasure of seeing Mr. Carver for follow up today. He is a 76 year old right-handed male with a history of Parkinson disease since 2016. He is seen alone. We had a visit using: [employer] I received consent from the patient to perform the visit using this platform. Subjective Previous Plan-01/24/2022 Visit: Parkinson disease - Continue carbidopa-levodopa 25/100 1.5 tablets three times a day. Continue regular aerobic exercise. Trial increase amanatadine to 2-1-1 Eye closure, head movements - We suspect this is related to parkinson disease and carbidopa-levodopa. Amantadine often helps with this. Let's trial increase in amantadine to 2-1-1 tablets. Next step if worsens or becomes more bothersome is to use botox to decrease the abnormal muscle contractions. Interested in clinical research? Not currently Interval History He tolerated the increase in amantadine. Much less head movements. No new issues during today's visit. Parkinson's Medication Schedule - as of the start of the visit: 9AM 1PM 5PM bedtime Carbidopa/levodopa 25/100 mg 1.5 1.5 1.5 Amantadine 100 mg 2 1 1 Parkinson's Motor Complications Medication benefit onset: unclear Medication duration: unclear Wearing off: no Painful off-state dystonia: no Dyskinesia: yes (Comment: occasional head kicks ) Prior Anti-Parkinson Therapies Amantadine IR In addition, the following Parkinson-associated features were evaluated: Daily activities Difficulties with eating: Yes (slight) Difficulties in dressing: Yes (mild) Difficulties with hygiene activities: Yes (slight) Difficulties with handwriting: Yes (slight) Difficulties with doing hobbies and other activities: 0 (none) Difficulties turning in bed: Yes (slight) Difficulties getting out of bed, car or chair: Yes (slight) Tremors/Gait/Balance Shaking or tremors: Yes (slight) Walking and balance problems: Yes (slight) Number of falls in the Last Month: No Gait freezing: Yes (slight) Autonomic/Pain Lightheadeness on standing: Yes (slight) Urinary problems: 0 (none) Constipation problems: 0 (none) Pain and other sensations: Yes (mild) Speech/Swallowing Speech problems: 0 (none) Drooling: Yes (moderate): not yet that bothersome Chewing and swallowing problems: 0 (none) Sleep/Fatigue Problems sleeping at night: Yes (mild) Daytime sleepiness: Yes (mild) Fatigue: Yes (slight) REM sleep behavior disorder: no Restless Legs Syndrome: no Mood/Behavior/Cognition Cognitive impairment: no No Data Recorded Hallucinations and delusions: no Apathy: no Depression: PQH-9 = 2 usually representing no significant (0-4) depression. Anxiety: JUANJO-7 = 0 usually representing no significant (0-4) anxiety. Finally, the following table shows the patient's overall global physical and mental health using the PROMIS scale relative to the previous visit: PROMIS-10 Appointment from 01/24/2022 in [facility] Most recent reading at 01/22/2022 8:55 PM Office Visit from 01/24/2022 in [facility] Most recent reading at 01/22/2022 8:55 PM Global Physical Health T Score 50.8 50.8 Global Mental Health T Score 50.8 50.8 0-10 Standard Pain Scale 5 5 *PROMIS-10 scoring scale: mean = 50, over 50 is above average, under 50 is below average ALLERGIES No Known Allergies Current Outpatient Medications Medication Sig amantadine HCl (SYMMETREL) 100 mg capsule Take 2 tablets at 9am, then 1 tablet at 1pm and 5pm. carbidopa-levodopa (SINEMET 25-100) 25-100 mg per tablet Take 1.5 tablet every 5 hours, 3 times daily. hydrochlorothiazide 12.5 mg ORAL tablet Take 12.5 mg by mouth once daily. Take one(1) tablet daily. No current facility-administered medications for this visit. Objective Vital Signs: There were no vitals taken for this visit. General Physical Examination: General Exam General Neurological Examination: Awake, alert, oriented x 3 Normal affect Mld hypomimia and hypophonia No tremors; some head movements when performing finger and hand movements Mild to moderate bradykinesia on bilateral finger and hand movements Assessment and Plan: Assessment Mr. Carver is a right-handed 76 year old male with PD, doing generally well. No wearing off, with mild dyskinesias (non-bothersome), with some sialorrhea (not that bothersome for now). The following are the current problems noted and addressed during this visit: Pd (parkinson's disease) ([facility]) (primary encounter diagnosis) Levodopa-induced dyskinesia Sialorrhea Plan 02/23/2022 Visit: PD - continue current levodopa and amantadine doses Dyskinesias - not bothersome, will observe for now Sialorrhea - offered neurotoxin injections; says he will keep it in mind Interested in clinical research? Not currently Updated Parkinson's Medication Schedule: 9AM 1PM 5PM bedtime Carbidopa/levodopa 25/100 mg 1.5 1.5 1.5 Amantadine 100 mg 2 1 1 Return at or around: 08/26/22 Medical Decision Making: Problems: Moderate: 2+ stable chronic illnesses Risk: Moderate: Moderate risk from testing/treatment and Drug management Medical Decision Making Level: 4 - Moderate Thank you for allowing me to be part of the clinical care of this patient! I look forward to continued participation in the patient s care with you. Please do not hesitate to call with any questions. Sincerely, Adi Kyle MD documented in this encounter [facility] 02-13-2022 History of Presen t illness Narrative Summary: nQ Day 21 Phone call IRB# : [id number] Speech Language Specialist: Dr. Adi Kyle MD Study Name: [employer] ([employer]) Application in [employer] for the Remote Management of Early Parkinson's Disease (PD) Study Visit Conducted by: Rosanna Shearer Date: February 13, 2022 Patient Called and spoke with patient to assist in uninstalling the nQ Keyboard application. Advised patient of study completion and thanked them for their time and participation. Informed patient to expect the $50 stipend in the mail for participating in study activities. Iraida Peralta Research Coordinator documented in this encounter [facility] 02-09-2022 History of Presen t illness Narrative Summary: [id number] nQ baseline IRB# : [id number] Speech Language Specialist: Dr. Adi Kyle MD Study Name: neuroQERTY (nQ) Application in Touchscreen Devices for the Remote Management of Early Parkinson's Disease (PD) Study Visit Conducted by: Jose Bassett MD Date: February 12, 2022 Patient Patient seen for baseline visit on February 12, 2022 in office. Typing tasks and MDS-UPDRS completed. Advised patient that a data security coordinator (Rosanna Morales) will be in contact with them on Day 21 to assist in deleting the nQ application from their phone. Jose Bassett MD documented in this encounter [facility] 01-24-2022 History of Presen t illness Narrative Summary: 21 nQ Prescreening IRB# : [id number] Speech Language Specialist: Dr. Adi Kyle MD Study Name: neuroQERTY (nQ) Application in Touchscreen Devices for the Remote Management of Early Parkinson's Disease (PD) Study Visit Conducted by: Iraida Peralta Date: January 24, 2022 Patient Patient seen for prescreen visit on January 24, 2022 in office. Informed consent and eligibility reviewed. Patient was confirmed eligible for study based on all inclusion and no exclusion criteria. Signed copy of consent provided to patient. nQ application installed successfully on patient's mobile phone. MoCA test administered. MDPQ-16 administered. Demographic and socioeconomic data collected. Will be in contact with patient to schedule ~Day 17 follow up in clinic. Davin Rueda Coordinator Images from the original note were not included. [facility] - FOLLOW UP EVALUATION Sarika Montaño MD [address] [facility] [address] I had the pleasure of seeing Mr. Carver for follow up today. He is a 76 year old right-handed male with a history of Parkinson disease since 2016. He is seen with a daughter. Subjective Previous Plan-10/25/2021 76 year old male with idiopathic Parkinson's disease, with non-bothersome dyskinesias. He says that his eye closure is because of allergies. Insomnia is his biggest problem. 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 Gets up around 7-8AM and feels good for a couple hours with or without medication. 9pm-midnight feels good too. Head twitching, eye closure: Fluctuates in severity from day to day, has left eye closing and tendency to move head to left and downwards. Started about 2 years ago. Sometimes related to clearing of ears as well; went to ENT without much explanation from his recollection. Thought it was allergy at first, but when to e commerce solution architect and was negative. Left foot has some cramping and twitching, tough to get sock on some mornings. Had historically had left great toe extension dystonia that resolved after starting amantadine. Denies toe curling or foot inturning or other apparent dystonia at this time. With regard to medication (carbidopa-levodopa 25/100 and amantadine) feels that he does notice big changes, but feels that his fine motor skills are better and thinks sharper, but also thinks his walking may be a touch worse with more stutter stepping . Off melatonin, didn't feel that it was helping. Tends to sleep better after more sunlight in the daytime. Happy with sleep at this time. Denies cognitive issues. Drooling OK. Parkinson's Medication Schedule - as of the start of the visit: 9AM 1PM 5PM bedtime Carbidopa/levodopa 25/100 mg 1.5 1.5 1.5 Amantadine 100 mg 1 1 1 Melatonin 5 mg 2-3 Parkinson's Motor Complications Medication benefit onset: unclear Medication duration: unclear Wearing off: no Painful off-state dystonia: no Dyskinesia: yes (Comment: occasional head kicks ) Prior Anti-Parkinson Therapies Amantadine IR In addition, the following Parkinson-associated features were evaluated: REM sleep behavior disorder: no Restless Legs Syndrome: no Mood/Behavior/Cognition Cognitive impairment: no No Data Recorded Hallucinations and delusions: no Apathy: no Depression: PQH-9 = 7 usually representing mild (5-9) depression. Anxiety: JUANJO-7 = 0 usually representing no significant (0-4) anxiety. Finally, the following table shows the patient's overall global physical and mental health using the PROMIS scale relative to the previous visit: PROMIS-10 Office Visit from 01/24/2022 in [facility] from 04/21/2021 in [facility] Global Physical Health T Score 50.8 54.1 Global Mental Health T Score 50.8 50.8 0-10 Standard Pain Scale 5 4 *PROMIS-10 scoring scale: mean = 50, over 50 is above average, under 50 is below average ALLERGIES No Known Allergies Current Outpatient Medications Medication Sig amantadine HCl (SYMMETREL) 100 mg capsule Take 2 tablets at 9am, then 1 tablet at 1pm and 5pm. carbidopa-levodopa (SINEMET 25-100) 25-100 mg per tablet Take 1.5 tablet every 5 hours, 3 times daily. hydrochlorothiazide 12.5 mg ORAL tablet Take 12.5 mg by mouth once daily. Take one(1) tablet daily. No current facility-administered medications for this visit. Objective Vital Signs: BP 162/96 (BP Site: Left Arm, BP Position: Sitting, BP Cuff Size: Regular Adult) Pulse 86 Ht 177.8 cm (5' 10 ) SpO2 98% BMI 22.89 kg/m General Physical Examination: General appearance: Awake, alert, interactive, no acute distress, good nutritional status, normal development, well-groomed Skin: Rash: absent Pigmentation: absent HEENT: Head: normocephalic, no dysmorphism Eyes: normal Oropharynx: normal Neck: Movements: free Lymphadenopathy: absent Extremities: Deformity/contracture: absent Edema: absent by visual inspection Trophic change: absent Spine: Deformity: absent Heart: See blood pressure readings. Distal pulses present Lungs: Normal work of breathing. Normal gross breath sounds. Abdomen: Nondistended General Neurological Examination: Neurological Exam Mental Status Awake, alert and oriented to person, place and time. Recent and remote memory are intact. Speech is normal. Language is fluent with no aphasia. Cranial Nerves Frequent left eye closure/squinting. Frequent head movements with slow phase to left and down and fast phase back to neutral. . Motor Normal muscle bulk throughout. Strength is 5/5 throughout all four extremities. Sensory Light touch is normal in upper and lower extremities. Reflexes Right Left Brachioradialis 2+ 2+ Biceps 2+ 2+ Patellar 2+ 2+ Achilles 1+ 1+ Coordination [id number], rapid alternating movements and unxr-cj-iwks normal bilaterally without dysmetria. Movement Disorders Cognitive and Motor Biomeasures: Processing Speed Test Total Number Correct: ; Z Score: Visual Memory Test Raw Score: ; Z Score: Manual Dexterity Test (max = 180 secs) Left Hand Time: ; Right Hand Time: Walking Speed Test (25 foot walk): *Z score interpretation: higher than -1.5 is within normal; -1.5 to -2.0 represents mild impairment; lower than -2.0 represents significant impairment Movement Disorders Scales Performed: MDS-UPDRS Motor subscale condition of exam Medication Off/On/Naiive ON Time of UPDRS 1355 Time of Last Medication 1300 Last Medication Taken cl 25/100 1.5 tabs and amantadine 100 DBS Right N/A DBS Left N/A MDS-UPDRS Motor subscale scores Speech 0-Normal. No speech problems. Facial Expression 2-Mild. In addition to decreased eye-blink frequency, Masked facies present in the lower face as well, namely fewer movements around the mouth, such as less spontaneous smiling, but lips not parted. Rigidity Neck 3-Moderate. Rigidity detected without the activation maneuver. Full range of motion is achieved with effort. Rigidity Right Upper Extremity 3-Moderate. Rigidity detected without the activation maneuver. Full range of motion is achieved with effort. Rigidity Left Upper Extremity 2-Mild. Rigidity detected without the activation maneuver, but full range of motion is easily achieved. Rigidity Right Lower Extremity 2-Mild. Rigidity detected without the activation maneuver, but full range of motion is easily achieved. Rigidity Left Lower Extremity 1-Slight. Rigidity only detected with activation maneuver. Finger Taps Right 3-Moderate. a) more than 5 interruptions during tapping or at least one longer arrest (freeze) in ongoing movement, b) moderate slowing, c) the amplitude decrements starting after the 1st tap. Finger Taps Left 3-Moderate. a) more than 5 interruptions during tapping or at least one longer arrest (freeze) in ongoing movement, b) moderate slowing, c) the amplitude decrements starting after the 1st tap. Hand Movements Right 2-Mild. a) 3 to 5 interruptions during the movements, b) mild slowing, c) the amplitude decrements midway in the task. Hand Movements Left 2-Mild. a) 3 to 5 interruptions during the movements, b) mild slowing, c) the amplitude decrements midway in the task. Arm Movements Right 2-Mild. a) 3 to 5 interruptions during the movements, b) mild slowing, c) the amplitude decrements midway in the sequence. Arm Movements Left 3-Moderate. a) more than 5 interruptions during the movement or at least one longer arrest (freeze) in ongoing movement, b) moderate slowing, c) the amplitude decrements starting after the 1st supination-pronation sequence. Toe Taps Right 3-Moderate. a) more than 5 interruptions during the tapping movements or at least one longer arrest (freeze) in ongoing movement, b) moderate slowing, c) the amplitude decrements starting after the first tap. Toe Taps Left 3-Moderate. a) more than 5 interruptions during the tapping movements or at least one longer arrest (freeze) in ongoing movement, b) moderate slowing, c) the amplitude decrements starting after the first tap. Leg Agility Right 2-Mild. a) 3 to 5 interruptions during the movements, b) mild slowness, c) the amplitude decrements midway in the task. Leg Agility Left 3-Moderate. a) more than 5 interruptions during the movement or at least one longer arrest (freeze) in ongoing movement, b) moderate slowing in speed, c) amplitude decrements after the first tap. Arise From Chair 0-Normal. No problems. Able to arise quickly without hesitation. Gait 1-Slight. Independent walking with minor gait impairment. Gait Freezing 1-Slight. Freezing on starting, turning, or walking through doorway with a single halt during any of these events, but then continues smoothly without freezing during straight walking. Posture Stability 1-Slight. 3-5 steps, but subject recovers unaided. Posture 2-Mild. Definite flexion, scoliosis or leaning to one side, but patient can correct posture to normal posture when asked to do so. Body Bradykinesia 2-Mild. Mild global slowness and poverty of spontaneous movements. Postural Tremor Hand Right 1-Slight. Tremor is present but less than 1cm in amplitude. Postural Tremor Hand Left 1-Slight. Tremor is present but less than 1cm in amplitude. Kinetic Tremor Right 0-Normal. No tremor. Kinetic Tremor Left 1-Slight. Tremor is present but less than 1cm in amplitude. Rest Tremor Amplitude Right Upper Extremity 1-Slight. < 1 cm in maximal amplitude. Rest Tremor Amplitude Left Upper Extremity 0-Normal. No tremor. Rest Tremor Amplitude Right Lower Extremity 0-Normal. No tremor. Rest Tremor Amplitude Right Lower Extremity 0-Normal. No tremor. Rest Tremor Amplitude Lip/Jaw 0-Normal. No tremor. Rest Tremor Constancy 1-Slight. Tremor at rest is present < 25% of the entire examination period. MDS-UPDRS Motor subscale totals Left Total 19 Right Total 19 Midline Total 12 Tremor Total / 10 5 PIGD Total / 3 3 Overall Total 51 % Change Compared to Last Filed Total Assessment and Plan: Assessment Mr. Carver is a right-handed 76 year old male with Parkinson's disease. Having some likely levodopa-related left eye closure and head/neck movements, question if segmental dystonia or stereotopy. Will trial increase in amantadine to 400mg a day. The following are the current problems noted and addressed during this visit: Pd (parkinson's disease) ([facility]) (primary encounter diagnosis) Levodopa-induced dyskinesia Dystonia Plan 01/24/2022 Visit: Parkinson disease - Continue carbidopa-levodopa 25/100 1.5 tablets three times a day. Continue regular aerobic exercise. Trial increase amanatadine to 2-1-1 Eye closure, head movements - We suspect this is related to parkinson disease and carbidopa-levodopa. Amantadine often helps with this. Let's trial increase in amantadine to 2-1-1 tablets. Next step if worsens or becomes more bothersome is to use botox to decrease the abnormal muscle contractions. Interested in clinical research? Not currently Updated Parkinson's Medication Schedule: 9AM 1PM 5PM bedtime Carbidopa/levodopa 25/100 mg 1.5 1.5 1.5 Amantadine 100 mg 2 1 1 Melatonin 5 mg 0 Return at or around: 02/23/22 Thank you for allowing me to be part of the clinical care of this patient! I look forward to continued participation in the patient s care with you. Please do not hesitate to call with any questions. Sincerely, Willie Tracey MD Neurology attending addendum: I personally saw and examined the patient with the Fellow. The case and management was discussed in detail. I agree with the above note regarding the patient's: Pd (parkinson's disease) ([facility]) (primary encounter diagnosis) Levodopa-induced dyskinesia Dystonia Level of service: Est level 4 (30-39 min). Time spent 35 min on the day of service, which included [id number] patient care, completing clinical documentation, obtaining and/or reviewing separately obtained history, performing a medically appropriate examination, counseling and educating the patient/family/caregiver and ordering medications, tests, or procedures. MD David Jacobson and Elva Buckner Endowed Chair in Movement Disorders Director, [facility], [facility] registered diet technician (Neurology), [facility] documented in this encounter [facility] 01-24-2022 Instructions Willie Tracey MD - 01/24/2022 2:31 PM EDT It was a pleasure to see you today. We addressed the following diagnoses: Pd (parkinson's disease) ([facility]) (primary encounter diagnosis) Levodopa-induced dyskinesia Dystonia My recommendations are as follows: 01/24/2022 Visit: Parkinson disease - Continue carbidopa-levodopa 25/100 1.5 tablets three times a day. Continue regular aerobic exercise. Trial increase amanatadine to 2-1-1 Eye closure, head movements - We suspect this is related to parkinson disease and carbidopa-levodopa. Amantadine often helps with this. Let's trial increase in amantadine to 2-1-1 tablets. Next step if worsens or becomes more bothersome is to use botox to decrease the abnormal muscle contractions. Interested in clinical research? Not currently Movement Disorders Medication Schedule: 9AM 1PM 5PM bedtime Carbidopa/levodopa 25/100 mg 1.5 1.5 1.5 Amantadine 100 mg 2 1 1 Melatonin 5 mg 0 Return in about 4 weeks (around 02/21/2022). If there are any concerns before your next visit, please call or you can send a message through [employer]. You can also now schedule and select appointments through [employer]. Willie Tracey MD documented in this encounter [facility] Diagnosis Examination of participant or control in clinical research- Primary Examination of participant in clinical trial documented in this encounter [facility]* Diagnosis PD (Parkinson's disease) (HCC)- Primary Paralysis agitans Levodopa-induced dyskinesia Subacute dyskinesia due to drugs Sialorrhea Disturbance of salivary secretion [facility] Diagnosis PD (Parkinson's disease) (HCC)- Primary Paralysis agitans Levodopa-induced dyskinesia Subacute dyskinesia due to drugs Sialorrhea Disturbance of salivary secretion 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 due to medical condition classified elsewhere Dystonia Abnormal involuntary movements [facility] Diagnosis PD (Parkinson's disease) (HCC)- Primary Paralysis agitans Levodopa-induced dyskinesia Subacute dyskinesia due to drugs Sialorrhea Disturbance of salivary secretion Bilateral leg edema Edema [facility] Diagnosis Parkinson's disease (HCC)- Primary Paralysis agitans Motor fluctuations 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 in Parkinson's disease (HCC) Dyskinesia Lack of coordination documented in this encounter [facility]* Diagnosis Parkinson's disease (HCC)- Primary Paralysis agitans documented in this encounter [facility] Reason for Referral Specialty Diagnoses / Procedures Referred By Enriqueta whiting Referred To Contact Diagnoses PD (Parkinson's disease) (HCC) Procedures PROVIDER ORDERED FOLLOW UP OFFICE/OUTPATIENT [facility] 60-74 MINUTES Adi Kyle MD [address] [place] [address] Referral ID Status Reason Start Date Expiration Date Visits Requested Visits Authorized [id number] Authorized PCP Requested Referral 08/26/2022 02/23/2023 1 1 Specialty Diagnoses / Procedures Referred By Contac t Referred To Contact [facility] Diagnoses PD (Parkinson's disease) (HCC) Procedures CONSULT TO PHYSICAL THERAPY PHYSICAL THERAPY EVALUATION HIGH COMPLEX 45 MINS Adi Kyle MD [address] [place] [address] [facility] [place] [address] [place] [address] Referral ID Status Reason Start Date Expiration Date Visits Requested Visits Authorized [id number] Pending Review PCP Requested Referral Auto-Generate d Referral 08/29/2022 08/29/2023 99 99 Referral ID Status Reason Start Date Expiration Date Visits Requested Visits Authorized [id number] Authorized PCP Requested Referral 01/31/2023 11/02/2023 1 1 Specialty Diagnoses / Procedures Referred By Contac t Referred To Contact Diagnoses Parkinson's disease (HCC) Procedures PROVIDER ORDERED FOLLOW UP OFFICE/OUTPATIENT [facility] MDM 60-74 MINUTES Judith Rosenberg APRN.CNP [address] [id number] Referral ID Status Reason Start Date Expiration Date Visits Requested Visits Authorized [id number] Authorized PCP Requested Referral 05/30/2023 02/27/2024 1 1 Summary Purpose Family History No Family History Records Found Advance Directives No Advanced Directives Records Found Additional Source Comments Source Comments (unrecognize d section and content) In the event this informatio n is protected by the Federal Confidentiality of Alcohol and Drug Abuse Patient Records regulations: The Federal rules restrict any use of the information to criminally investigate or prosecute any alcohol or drug abuse patient.[facility] the event this information is protected by the Federal Confidentiality of Alcohol and Drug Abuse Patient Records regulations: The Federal rules restrict any use of the information to criminally investigate or prosecute any alcohol or drug abuse patient.[facility] the event this information is protected by the Federal Confidentiality of Alcohol and Drug Abuse Patient Records regulations: The Federal rules restrict any use of the information to criminally investigate or prosecute any alcohol or drug abuse patient.[facility] the event this information is protected by the Federal Confidentiality of Alcohol and Drug Abuse Patient Records regulations: The Federal rules restrict any use of the information to criminally investigate or prosecute any alcohol or drug abuse patient.[facility] the event this information is protected by the Federal Confidentiality of Alcohol and Drug Abuse Patient Records regulations: The Federal rules restrict any use of the information to criminally investigate or prosecute any alcohol or drug abuse patient.[facility] the event this information is protected by the Federal Confidentiality of Alcohol and Drug Abuse Patient Records regulations: The Federal rules restrict any use of the information to criminally investigate or prosecute any alcohol or drug abuse patient.[facility] the event this information is protected by the Federal Confidentiality of Alcohol and Drug Abuse Patient Records regulations: The Federal rules restrict any use of the information to criminally investigate or prosecute any alcohol or drug abuse patient.[facility] the event this information is protected by the Federal Confidentiality of Alcohol and Drug Abuse Patient Records regulations: The Federal rules restrict any use of the information to criminally investigate or prosecute any alcohol or drug abuse patient.[facility] the event this information is protected by the Federal Confidentiality of Alcohol and Drug Abuse Patient Records regulations: The Federal rules restrict any use of the information to criminally investigate or prosecute any alcohol or drug abuse patient.[facility] the event this information is protected by the Federal Confidentiality of Alcohol and Drug Abuse Patient Records regulations: The Federal rules restrict any use of the information to criminally investigate or prosecute any alcohol or drug abuse patient.[facility] the event this information is protected by the Federal Confidentiality of Alcohol and Drug Abuse Patient Records regulations: The Federal rules restrict any use of the information to criminally investigate or prosecute any alcohol or drug abuse patient.[facility] Center[facility] the event this information is protected by the Federal Confidentiality of Alcohol and Drug Abuse Patient Records regulations: The Federal rules restrict any use of the information to criminally investigate or prosecute any alcohol or drug abuse patient.[facility] Center[facility] the event this information is protected by the Federal Confidentiality of Alcohol and Drug Abuse Patient Records regulations: The Federal rules restrict any use of the information to criminally investigate or prosecute any alcohol or drug abuse patient.[facility] Center[facility] the event this information is protected by the Federal Confidentiality of Alcohol and Drug Abuse Patient Records regulations: The Federal rules restrict any use of the information to criminally investigate or prosecute any alcohol or drug abuse patient.[facility] Center[facility] the event this information is protected by the Federal Confidentiality of Alcohol and Drug Abuse Patient Records regulations: The Federal rules restrict any use of the information to criminally investigate or prosecute any alcohol or drug abuse patient.[facility] Center[facility] the event this information is protected by the Federal Confidentiality of Alcohol and Drug Abuse Patient Records regulations: The Federal rules restrict any use of the information to criminally investigate or prosecute any alcohol or drug abuse patient.[facility] Reason for Visit (unrecogniz ed section and content) Reason Comments Follow Up Reason Onset Date Comments Refill Request 04/13/2022 Specialty Diagnoses / Procedures Referred By Enriqueta t Referred To Contact Diagnoses PD (Parkinson's disease) (HCC) Procedures PROVIDER ORDERED FOLLOW UP OFFICE/OUTPATIENT NEW HIGH MDM 60-74 MINUTES Adi Kyle MD [address] [place] [address] Referral ID Status Reason Start Date Expiration Date V isits Requested Visits Authorized [id number] Closed PCP Requested Referral 08/26/2022 02/23/2023 1 1 Reason Onset Date Comments Refill Request 11/07/2022 Reason Onset Date Comments Refill Request 01/22/2023 Reason Onset Date Comments Refill Request 02/01/2023 Referral ID Status Reason Start Date Expiration Date V isits Requested Visits Authorized [id number] Closed PCP Requested Referral 01/31/2023 11/02/2023 1 1 Reason Comments Follow Up Specialty Diagnoses / Procedures Referred By Enriqueta t Referred To Contact Diagnoses Parkinson's disease (HCC) Procedures PROVIDER ORDERED FOLLOW UP OFFICE/OUTPATIENT NEW HIGH MDM 60-74 MINUTES Judith Rosenberg APRN.SECURITY INVESTIGATOR [address] [place] [address] Referral ID Status Reason Start Date Expiration Date V isits Requested Visits Authorized [id number] Closed PCP Requested Referral 05/30/2023 02/27/2024 1 1 Reason Onset Date Comments Refill Request 07/05/2023 Reason Onset Date Comments Refill Request 09/26/2023 Reason Onset Date Comments Refill Request 10/09/2023 Care Teams (unrecognized sec tion and content) Twister Doffer Relationship Specialty Start Date End Date Sarika Montaño PCP - General Family Practice 04/18/11 Twister Doffer Relationship Specialty Start Date End Date Sarika Montaño PCP - General Family Practice 04/18/11 Twister Doffer Relationship Specialty Start Date End Date Sarika Montaño PCP - General Family Practice 04/18/11 Twister Doffer Relationship Specialty Start Date End Date Sarika Montaño PCP - General Family Practice 04/18/11 Twister Doffer Relationship Specialty Start Date End Date Sarika Montaño PCP - General Family Medicine 04/18/11 Twister Doffer Relationship Specialty Start Date End Date Sarika Montaño PCP - General Family [facility] 04/18/11 Twister Doffer Relationship Specialty Start Date End Date Sarika Montaño PCP - General [facility] 04/18/11 Twister Doffer Relationship Specialty Start Date End Date Sarika Montaño PCP - [facility] 04/18/11 Twister Doffer Relationship Specialty Start Date End Date Sarika Montaño PCP - [facility] 04/18/11 Twister Doffer Relationship Specialty Start Date End Date Sarika Montaño PCP [facility] 04/18/11 Twister Doffer Relationship Specialty Start Date End Date Sarika Montaño PCP [facility] 04/18/11 Twister Doffer Relationship Specialty Start Date End Date Sarika Montaño [facility] 04/18/11 (unrecognized sect ion and content) No Status Records Found INFORMATION SOURCE (unrecogn ized section and content) FOR RECORDS PERTAINING TO PATIENTS WHO ARE OR HAVE BEEN ENROLLED IN A CHEMICAL DEPENDENCY/SUBSTANCEABUSE PROGRAM, SOME INFORMATION MAY BE OMITTED. This clinical summary was aggregated from multiple sources. Caution should be exercised in using it in the provision of clinical care. This summary normalizes information from multiple sources, and as a consequence, information in this document may materially change the coding, format and clinical context of patient data. In addition, data may be omitted in some cases. CLINICAL DECISIONS SHOULD BE BASED ON THE PRIMARY CLINICAL RECORDS. [facility]. provides no warranty or guarantee of the accuracy or completeness of information in this document.
--- NOTE | 2023-12-03 21:41 | CT_ITS ---
STUDY: CT BRAIN WITHOUT CONTRAST REASON FOR EXAM: Male, 78 years old. weakness RADIATION DOSAGE (If Supplied By Facility): CTDIvol = ( 44.99 ) mGy, DLP = ( 883.29 ) mGycm TECHNIQUE: Transaxial CT imaging of the brain was performed without administration of intravenous contrast material. Individualized dose optimization techniques were used for this CT. COMPARISON: MRI brain 12/03/2023. FINDINGS: Normal soft tissue structures. Normal calvarium. There is mild cerebral atrophy with widening of the extra-axial spaces and ventricular dilatation. There are areas of decreased attenuation within the white matter tracts of the supratentorial brain, consistent with microvascular disease changes. Normal basal ganglia and thalami. Normal brainstem. Normal cerebellum. There is no intracranial hemorrhage. There are no findings of an acute ischemic infarction. Mucosal thickening of the right maxillary sinus. Remainder of the paranasal sinuses are clear. No air-fluid level. CT/Brain/Head without Contrast IMPRESSION: Chronic changes as described with no acute intracranial hemorrhage or space-occupying lesion. Electronically Signed: Lashawn Salazar MD at 22:34 EST ,
--- NOTE | 2023-12-03 21:41 | EKG12_ITS ---
Test Reason : FALL Blood Pressure : / mmHG Vent. Rate : 073 BPM Atrial Rate : 073 BPM P-R Int : 160 ms QRS Dur : 090 ms QT Int : 424 ms P-R-T Axes : 020 -49 -37 degrees QTc Int : 467 ms Normal sinus rhythm Left anterior fascicular block Abnormal ECG Confirmed by Surjit Norris ([id number]), movie editor ARGELIA MERA ([id number]) on 12/04/2023 11:01:01 AM Referred By: JAIDA Confirmed By:Surjit Norris
[2023-12-03] MEDS: 0.9% Normal Saline (500mL Bag) 500 ML 1000 ML IV (22:01)
[2023-12-03 22:02] VITALS: BP 166/93; PULSE 71; RESP 18; O2SAT 98
[2023-12-03 22:16] LABS: Bacteria 0 SEEN /hpf (None Seen); Mucous, Urine 0 SEEN /hpf (<or=2+); Squamous Epithelial Cells - UA 0 SEEN /hpf (0-5)
[2023-12-03 22:18] LABS: Absolute Lymphocyte Count 1.03 X10^3/uL (0.83-4.51); Absolute Neutrophil Count 5.5 X10^3/uL (2.0-7.7); Basophil# 0.03 X10^3/uL; Basophil% 0.4 % (0-1); Eosinophil# 0.03 X10^3/uL; Eosinophils% 0.4 % (0-5); Hematocrit 43.3 % (40-54); Lymphocyte # 1.03 X10^3/ul (0.83-4.51); Lymphocyte % 14.4 % (19-41); Mean Corp Hgb Conc 34.6 g/dL (32-36); Mean Corpuscular Hgb 32.2 pg (27.0-32.0); Mean Corpuscular Volume 92.9 fL (80-94); Mean Platelet Vol. 10.5 fl (6.2-12.0); Monocyte# 0.53 X10^3/uL; Monocyte% 7.4 % (0-10); NRBC Flagged by Analyzer 0 % (0-5); Neutrophil % 76.8 % (47-70); Platelet Count 196 K/mm3 (150-450); RBC Distribution Width CV 14.3 % (11.6-14.6); RBC Distribution Width SD 48.2 fl (35.1-43.9); Red Blood Count 4.66 M/mm3 (4.6-6.2); White Blood Count 7.2 K/mm3 (4.4-11.0)
[2023-12-03 22:19] LABS: POSITIVE COUNT NO; POSITIVE DIFFERENTIAL NO; POSITIVE MORPHOLOGY NO
[2023-12-03 22:19] LABS: Color, Urine Yellow (Yellow); Glucose, Dipstick Normal (Normal); Ketone-Dipstick 5 mg/dl (Negative); Leukocyte Esterase-Dipstick 25 /ul (Negative); Nitrite-Dipstick Negative (Negative); Occult Blood-Urine 25 /ul (Negative); Protein-Dipstick Negative (Negative); Specific Gravity, Urine 1.025 (1.002-1.030); Urine Bilirubin Dipstick Negative (Negative); Urine Clarity Clear (Clear); Urine Urobilinogen Normal (Normal)
[2023-12-03 22:28] LABS: Red Blood Cells-Urine 0-5 SEEN /hpf (0-5); White Blood Cells 0-5 SEEN /hpf (0-5)
[2023-12-03 22:32] LABS: Anion Gap 7 (5-15); BUN 21 mg/dL (7-18); BUN/Creat Ratio 21.5 RATIO (10-20); Calcium,Total 9.2 mg/dL (8.5-10.1); Chloride 108 mmol/L (98-107); Creatinine, Serum 0.98 mg/dL (0.70-1.30); EST Glomerular Filtration Rate 79 mL/min (>60); Est Glom Filt Rate - Afr Amer 96 mL/min (>60); Glucose 108 mg/dL (74-106); Potassium 3.8 mmol/L (3.5-5.1); Sodium Level 142 mmol/L (136-145)
[2023-12-04] VITALS (9 sets, daily range): BP systolic 116–168; BP diastolic 71–98; PULSE 61–75; RESP 13–18; TEMP 36.4–36.6; O2SAT 95–98; BMI 21.7; BMI 21.6
[2023-12-04] MEDS: Carbidopa/Levodopa 25/100 Tablet PO ×3 (00:03→11:14)
--- NOTE | 2023-12-04 00:26 | EX.ED.DYSGE1 ---
HPI History of Present Illness Chief Complaint: Fall Informant: patient and family Narrative Narrative: Patient presents with an inability to ambulate or get up out of a couch. He is from patient and family member. No weakness Patient states that he does have Parkinson's but it has been pretty well-controlled with carbidopa levodopa and amantadine. He states on about he was shopping at [employer] with no problems. He does not use a cane or a walker. Saturday he noticed that he seemed a little bit weaker. It seemed a little bit more on the left leg than any other area but he does admit to generalized weakness. He states he got worse on Saturday and Saturday. Today he tried to get up off the couch and was too weak. He ended up rolling from the couch onto the floor but did not hurt himself. He was trying to push himself up with his hands and legs and could not do it so he had to call a family member for help. Patient also states that he had a sinus infection about a month ago he had a little bit of nasal drainage that was purulent. He had a little pressure in his head. He took antibiotics and got better. But he is starting to get a little bit of head pressure back. But he is not getting the drainage. He does not have fevers. He has no cough. He has no urinary symptoms but he does get up several times a night to urinate. But this is not new or worsening. He is not confused per the family. [facility] Medical History Parkinson disease Allergy/AdvReac Type Severity Reaction Status Date / Time No Known Allergies Allergy Verified 12/03/23 20:01 Social History Smoking Status: Never smoker ROS ROS ED Constitutional Constitutional ED: Denies chills, fever(s) or subjective Eyes Eyes: Denies change in vision ENT ENT ED: Denies ear pain, rhinorrhea or sore throat Cardiovascular Cardiovascular: Denies chest pain or palpitations Respiratory/Chest Respiratory/Chest: Denies cough or dyspnea Gastrointestinal Gastrointestinal: Denies diarrhea, nausea or vomiting Genitourinary Genitourinary ED: Reports urinary frequency and other Details: Urinary frequency is chronic. Musculoskeletal Musculoskeletal: Denies myalgias Integumentary Denies rash Hematologic/Lymphatic Hematologic/Lymphatic: Denies easy bleeding or easy bruising EXAM Physical Exam Narrative Exam Narrative: General: Patient is awake alert he looks frail but he is alert and appropriate. HEENT: No nasal congestion. Oropharynx is well-hydrated. No significant nasal discharge. Neck is supple I do not see JVD. Heart is regular. Lungs are clear and saturations are normal at 97% on room air. Abdomen is soft and nontender. Extremities show no tenderness. There is some mild edema of his ankles. Evidently this is normal. Neurologic: He is awake alert appropriate. I was able to have him lift each a leg up individually for over 5 seconds and they were equal. He could pull up on his toes and stepped on the gas with good strength. Good bilateral oncology rep strength. He could push and pull with his arms equally and well. I do not get any asymmetry of strength. Const Vital Signs: 12/03/23 20:01 12/03/23 20:05 12/03/23 20:53 Temperature 97.8 F 97.8 F Temperature Source Temporal Temporal Pulse Rate 81 81 Respiratory Rate 16 16 Respiratory Effort Normal Non-Labored Respiratory Depth Normal Respiratory Pattern Normal Blood Pressure 129/80 H 129/80 H Blood Pressure Mean 96 96 Pulse Ox 97 97 Oxygen Delivery Method Room Air Room Air Room Air 12/03/23 22:02 12/04/23 00:00 Temperature 98 F Temperature Source Pulse Rate 71 68 Respiratory Rate 18 13 Respiratory Effort Respiratory Depth Respiratory Pattern Blood Pressure 166/93 H 157/98 H Blood Pressure Mean 117 117 Pulse Ox 98 97 Oxygen Delivery Method Room Air MDM MDM MDM Narrative Medical decision making narrative: My independent interpretation of his CT shows some mild atrophy likely due to age but no acute process and final reading was similar. Patient's CBC looks normal. Patient's electrolytes show minimal elevation of chloride. Slightly high BUN to creatinine ratio but he was given IV fluids here for mild dehydration. Glucose was unremarkably high at 108. Urine shows no sign of infection. Patient's viral studies were negative. We tried to walk the patient after some fluids. He is way too unstable. He cannot get up on the edge of the bed and stand well. He states he feels like his legs are locking on him. We did give him his carbidopa/levodopa. This patient is not safe to go home. He cannot ambulate when a few days ago he was walking in a grocery store without difficulty. Although stroke is possible or not yet seeing anything on CT. It is certainly possible that this is his Parkinson's and he may need adjustment of medicines. He will likely need physical therapy evaluation. I did discuss the case with hospitalist. Lab Data Attestation: I reviewed the patient's lab results. Labs: Laboratory Results - last 24 hr 12/03/23 12/03/23 21:55 22:00 WBC 7.2 RBC 4.66 Hgb 15.0 Hct 43.3 MCV 92.9 MCH 32.2 H MCHC 34.6 RDW Std Deviation 48.2 H RDW Coeff of Ann 14.3 Plt Count 196 MPV 10.5 Immature Gran % (Auto) 0.600 Neut % (Auto) 76.8 H Lymph % (Auto) 14.4 L [place] % (Auto) 7.4 Eos % (Auto) 0.4 Baso % (Auto) 0.4 Absolute Neuts (auto) 5.5 Absolute Lymphs (auto) 1.03 Nucleated RBC % 0 Sodium 142 Potassium 3.8 Chloride 108 H Carbon Dioxide 27.0 Anion Gap 7 BUN 21 H Creatinine 0.98 Estim Creat Clear Calc 63.30 Est GFR (MDRD) Af Amer 96 Est GFR (MDRD) Non-Af 79 BUN/Creatinine Ratio 21.5 H Glucose 108 H Calcium 9.2 Urine Color Yellow Urine Clarity Clear Urine pH 6.0 Ur Specific [place] 1.025 Urine Protein Negative Urine Glucose (UA) Normal Urine Ketones 5 H Urine Occult Blood 25 H Urine Nitrite Negative Urine Bilirubin Negative Urine Urobilinogen Normal Ur Leukocyte Esterase 25 H Urine RBC 0-5 SEEN Urine WBC 0-5 SEEN Ur Squamous Epith Cells 0 SEEN Urine Bacteria 0 SEEN Urine Mucus 0 SEEN Radiography Diagnostic Testing: Clinical Impression(s) from Imaging Studies Brain CT 12/03/23 21:41 IMPRESSION: Chronic changes as described with no acute intracranial hemorrhage or space-occupying lesion. Electronically Signed: Lashawn Salazar MD at 22:34 EST , Discharge Plan Triage Chief Complaint: Fall ED Provider: Listerman,Peter Dx/Rx/DC Orders Clinical Impression: Fall at home, Dehydration, mild, Unable to stand up, Parkinson disease Primary Care Provider: Sarika Montaño Referrals: Sarika Montaño MD [Primary Care Provider] - Disposition Disposition: Acute Care Hospital [facility] [place] [facility]
--- NOTE | 2023-12-04 00:31 | HP.PCM.HOS_ITS ---
[facility] - General General Date of Admission: 12/04/23 Date of Service: 12/04/23 Chief Complaint: Unable to Walk plus sinus infection. HPI Narrative ANTHONY CARVER, is a 78 M with a past medical history of essential hypertension; on HCTZ and Parkinson's disease; previously well-controlled on Sinemet and amantadine who presents to [facility] ER complaining of being unable to walk plus sinus infection. Mr. Carver reports his symptoms began approximately 1 month prior to arrival with sinus congestion and fullness resulting in him being diagnosed with acute sinusitis and treated with oral antibiotics with transient improvement. Then approximately 3 weeks prior to admission he began to have increasing sinus pressure and worsening congestion with malaise then on November, he noticed increased stiffness in his left lower extremity that made it hard for him to ambulate. Then on Saturday and Saturday the symptoms became worse with him becoming too weak to even get up off the couch resulting in him rolling onto the floor but thankfully he did not sustain significant injuries. He denies associated fever, chills, nausea, vomiting and his family denies that he has been confused. In the ER he was diagnosed with acute sinusitis that failed outpatient antibiotic treatment causing generalized weakness with ambulatory dysfunction in the setting of chronic Parkinson's disease that have been well-controlled up to this time and he was then admitted to the general medical floor under observation status for ongoing care for stay that is expected to be less than 48 hours. [facility] Medical History Parkinson disease Home Medications amantadine HCl 100 mg capsule 100 mg PO .COMPLEX hill 12/04/23 [History Last Taken Unknown] carbidopa 25 mg-levodopa 100 mg tablet 1.5 tab PO TID 12/04/23 [History Last Taken Unknown] carbidopa ER 25 mg-levodopa 100 mg tablet,extended release 1 tab PO QHS hill 12/04/23 [History Last Taken Unknown] hydrochlorothiazide 12.5 mg capsule 12.5 mg PO DAILY htn 12/04/23 [History Last Taken Unknown] Allergy/AdvReac Type Severity Reaction Status Date / Time No Known Allergies Allergy Verified 12/03/23 20:01 Social History Smoking Status: Never smoker ROS ROS Narrative Review of systems: General: Patient denies fevers or chills. HENT: Patient admits to sinus congestion and fullness that is causing him moderate discomfort. EYES: Denies changes in vision or discharge from eyes. Resp: Denies cough or shortness of breath. Cardiac: Denies chest pain or palpitations. GI: Denies abdominal pain, denies changes in bowel, denies nausea or vomiting. : Patient admits to chronic urinary frequency which is unchanged from previous. Extremity: Denies swelling Musculoskeletal: Feels somewhat generally weak and is unusually stiff in his left > right lower extremity. Neuro: Denies any numbness/tingling Heme: Denies any bleeding or bruising Skin: Denies rashes Psychiatric: No complaints voiced Endocrine: No polyuria, polydipsia or polyphagia. The rest of the 14 point ROS was negative except for positives in HPI. Vital Signs Vital Signs Vital Signs: 12/03/23 20:01 12/03/23 20:05 12/03/23 20:53 Temperature 97.8 F 97.8 F Temperature Source Temporal Temporal Pulse Rate 81 81 Respiratory Rate 16 16 Respiratory Effort Normal Non-Labored Respiratory Depth Normal Respiratory Pattern Normal Blood Pressure 129/80 H 129/80 H Blood Pressure Mean 96 96 Pulse Ox 97 97 Oxygen Delivery Method Room Air Room Air Room Air 12/03/23 22:02 12/04/23 00:00 Temperature 98 F Temperature Source Pulse Rate 71 68 Respiratory Rate 18 13 Respiratory Effort Respiratory Depth Respiratory Pattern Blood Pressure 166/93 H 157/98 H Blood Pressure Mean 117 117 Pulse Ox 98 97 Oxygen Delivery Method Room Air Weight Weight: 156 lb 4.924 oz Body Mass Index (BMI) 22.4 Physical Exam Const alert, oriented x3 and no apparent distress Constitutional Narrative: Patient appears frail but is very mentally sharp. General Appearance: cooperative HEENT normocephalic, head/scalp atraumatic, hearing grossly normal bilaterally and moist oral mucous membranes Eyes PERRL and EOMs intact bilaterally Neck no lymphadenopathy and supple Resp normal respiratory effort, no retractions, no use of accessory muscles and clear to auscultation bilaterally Cardio regular rate and regular rhythm GI normal to inspection, nondistended, normoactive bowel sounds, soft to palpation, non-tender and non-distended Extremity normal to inspection Extremity Narrative: Patient has mild edema of his ankles. Skin Skin Narrative: Patient has no evidence of rash at this time. Neuro oriented x3, CN's II-XII intact bilaterally and moves all extremities Neuro Narrative: Patient is stiff in his lower extremities but has symmetrical strength. Sensorium / Orientation: awake, alert, oriented to person, oriented to place and oriented to time Speech: speech normal Motor Exam: strength 5/5 throughout Psych affect normal Results Medical Records Data Attestation: I reviewed the patient's medical records Lab / Micro Data Attestation: I reviewed the patient's lab results. 12/03/23 22:00 12/03/23 22:00 Labs: Laboratory Results - last 24 hr 12/03/23 21:55: Urine Color Yellow, Urine Clarity Clear, Urine pH 6.0, Ur Specific [place] 1.025, Urine Protein Negative, Urine Glucose (UA) Normal, Urine Ketones 5 H, Urine Occult Blood 25 H, Urine Nitrite Negative, Urine Bilirubin Negative, Urine Urobilinogen Normal, Ur Leukocyte Esterase 25 H, Urine RBC 0-5 SEEN, Urine WBC 0-5 SEEN, Ur Squamous Epith Cells 0 SEEN, Urine Bacteria 0 SEEN, Urine Mucus 0 SEEN 12/03/23 22:00: WBC 7.2, RBC 4.66, Hgb 15.0, Hct 43.3, MCV 92.9, MCH 32.2 H, MCHC 34.6, RDW Std Deviation 48.2 H, RDW Coeff of Ann 14.3, Plt Count 196, MPV 10.5, Immature Gran % (Auto) 0.600, Neut % (Auto) 76.8 H, Lymph % (Auto) 14.4 L, [place] % (Auto) 7.4, Eos % (Auto) 0.4, Baso % (Auto) 0.4, Absolute Neuts (auto) 5.5, Absolute Lymphs (auto) 1.03, Nucleated RBC % 0, Sodium 142, Potassium 3.8, Chloride 108 H, Carbon Dioxide 27.0, Anion Gap 7, BUN 21 H, Creatinine 0.98, Estim Creat Clear Calc 63.30, Est GFR (MDRD) Af Amer 96, Est GFR (MDRD) Non-Af 79, BUN/Creatinine Ratio 21.5 H, Glucose 108 H, Calcium 9.2 Micro: Microbiology 12/03/23 21:50 Mucosa - Nose SARS-CoV-2, Influenza & RSV (PCR) - Final Imaging Radiology Impression Brain CT 12/03/23 21:41 IMPRESSION: Chronic changes as described with no acute intracranial hemorrhage or space-occupying lesion. Electronically Signed: Lashawn Salazar MD at 22:34 EST , Assessment & Plan Assessment/Plan (1) Acute sinusitis: QUALIFIERS: Sinusitis location: unspecified location Recurrence: recurrent Qualified Code(s): J01.91 - Acute recurrent sinusitis, unspecified (2) Failure of outpatient treatment: (3) Parkinson disease: QUALIFIERS: Dyskinesia presence: with dyskinesia Fluctuating manifestations: with fluctuating manifestations Qualified Code(s): G20.B2 - Parkinson's disease with dyskinesia, with fluctuations (4) Unable to stand up: (5) Fall at home: QUALIFIERS: Encounter type: initial encounter Qualified Code(s): W19.XXXA - Unspecified fall, initial encounter; Y92.009 - Unspecified place in unspecified non-institutional (private) residence as the place of occurrence of the external cause PLAN: Plan 1. Acute sinusitis that failed outpatient treatment - Admit to general medical floor under observation status. Give IV Rocephin as a precursor to switching to oral Augmentin at time of discharge if dayshift hospitalist is agreeable. Give Tylenol as needed pain or fever. 2. Generalized weakness with ambulatory dysfunction in the setting of chronic Parkinson's disease acutely exacerbated by #1 causing fall at home - PT/OT and case management to consult and treat in the a.m. on rounds with help appreciated in advance. Patient lives alone and would be interested in returning home with PT if he is deemed safe to do so. 3. Essential hypertension - Resume hydrochlorothiazide as previous plus give as needed IV hydralazine for systolic blood pressure greater than 160 mmHg. 4. DVT prophylaxis - Lovenox 40 mg sq daily. Total time: Approximately 45 minutes. Charges/Coding Visit Charges OBSV E&M: [id number] Observ/hosp same date L1
--- OUTSIDE RECORDS SUMMARY | 2023-12-04 02:43 | XMS RPT_ITS | CCD ---
Author Name Unknown Address [address] [place] [address] Organization [facility] Care Team Providers Care Corporate Operations Compliance Manager Name Role Phone Sarika Montaño Primary Care Provider SARIKA MONTAÑO Primary Care Unavailable ADI KYLE [...] 11:22-0400 Body height 177.8 cm Judith Rosenberg APRN.PRESS OPERATOR HEAVY DUTY Work Phone: [facility] 02-27-2023 11:22-0400 Diastolic blood pressure 77 mm[Hg] Judith Rosenberg APRN.PRESS OPERATOR HEAVY DUTY Work Phone: [facility] 02-27-2023 11:22-0400 Heart rate 60 /min Judith Rosenberg APRN.PRESS OPERATOR HEAVY DUTY Work Phone: [facility] 02-27-2023 11:22-0400 SaO2% (BldA) [Mass fraction] 98 % Judith Rosenberg APRN.PRESS OPERATOR HEAVY DUTY Work Phone: [facility] 02-27-2023 11:22-0400 Systolic blood pressure 168 mm[Hg] Judith Rosenberg APRN.PRESS OPERATOR HEAVY DUTY Work Phone: [facility] 08-29-2022 12:49-0500 SaO2% (BldA) [Mass fraction] 99 % Adi Kyle MD Work Phone: [facility] 08-29-2022 12:46-0500 Body weight 67 kg Adi Kyle MD Work Phone: [facility] 08-29-2022 12:46-0500 Diastolic blood pressure 79 mm[Hg] Adi Kyle MD Work Phone: [facility] 08-29-2022 12:46-0500 Heart rate 65 /min Adi Kyle MD Work Phone: [facility] 08-29-2022 12:46-0500 Systolic blood pressure 172 mm[Hg] Adi Kyle MD Work Phone: [facility] 01-24-2022 13:37-0400 SaO2% (BldA) [Mass fraction] 98 % Adi Kyle MD Work Phone: [facility] 01-24-2022 13:35-0400 Body height 177.8 cm Adi Kyle MD Work Phone: [facility] 01-24-2022 13:35-0400 Diastolic blood pressure 96 mm[Hg] Adi Kyle MD Work Phone: [facility] 01-24-2022 13:35-0400 Heart rate 86 /min Adi Kyle MD Work Phone: [facility] 01-24-2022 13:35-0400 Systolic blood pressure 162 mm[Hg] Adi Kyle MD Work Phone: [facility] Encounters Encounter Date Encounter Type Care Provider Facility Start: 11-04-2023 End: 11-04-2023 [facility] Start: 10-09-2023 [place] augustine MD Work Phone: [facility] Procedures Date Procedure Procedure Detail Performing Clinician Start: 02-21-2022 Adult depression scr eening assessment Adi Kyle MD Work Phone: Start: 01-22-2022 Adult depression scr eening assessment Adi Kyle MD Work Phone: Start: 10-02-2011 Colonoscopy Adi de la rosa MD Work Phone: Plan of Treatment Date Care Activity Detail Author Start: 06-21-2023 Covid-19 Vaccine () Covid-19 Vaccine () [facility] Start: 06-21-2023 Influenza vaccination [facility] Start: 02-21-2023 Adult depression scr eening assessment DEPRESSION SCREENING [facility] Start: 01-22-2023 Adult depression scr eening assessment DEPRESSION SCREENING [facility] Start: 12-08-2022 COVID-19 VACCINE (6 - Moderna series) COVID-19 VACCINE (6 - Moderna series) [facility] Start: 10-21-2022 ADVANCE DIRECTIVE DISCUSSION ADVANCE DIRECTIVE DISCUSSION [facility] Start: 10-21-2022 DEPRESSION ASSESSMENT DEPRESSION ASS ESSMENT [facility] Start: 06-21-2022 Influenza vaccination INFLUENZA (#1) [facility] Start: 12-31-2021 COVID-19 VACCINE (4 - Booster for Moderna series) COVID-19 VACCINE (4 - Booster for Moderna series) [facility] Start: 10-21-2021 ADVANCE DIRECTIVE DISCUSSION ADVANCE DIRECTIVE DISCUSSION [facility] Start: 10-21-2021 DEPRESSION ASSESSMENT DEPRESSION ASS ESSMENT [facility] Start: 10-02-2021 Colonoscopy COLONOSCOPY [facility] Start: 10-02-2021 COLORECTAL CANCER SCREENING COLORECTAL CANCER SCREENING [facility] Start: 09-15-2013 Shingrix Vaccine (2 of 3) Shingrix V accine (2 of 3) [facility] Start: 2011 Pneumococcal Vaccine : 65+ (1 - PCV) Pneumococcal Vaccine: 65+ (1 - PCV) [facility] Start: 2011 PNEUMOCOCCAL: 65+ (1 - PCV) PNEUMOCOCCAL: 65+ (1 - PCV) [facility] Start: 2011 PNEUMOVAX AGE 65 AND OVER WITH 5YR LOOKBACK (#1) PNEUMOVAX AGE 65 AND OVER WITH 5YR LOOKBACK (#1) [facility] Start: 2006 RSV Vaccine (1 - 1-d ose 60+ series) RSV Vaccine (1 - 1-dose 60+ series) [facility] Start: 1996 SHINGRIX VACCINE (1 of 2) SHINGRIX V ACCINE (1 of 2) [facility] Start: 1991 COLOGUARD (FIT-DNA) COLOGUARD (FIT-D NA) [facility] Start: [address] COLONOGRAPHY [facility] Start: 1991 DIABETES SCREEN DIABETES SCREEN [facility] Start: 1991 Diabetes Screening Diabetes Screenin g [facility] Start: 1991 FECAL OCCULT BLOOD FECAL OCCULT BLOO D [facility] Start: 1991 SIGMOIDOSCOPY SIGMOIDOSCOPY Paige herring [facility] Start: 1981 LIPID SCREEN LIPID SCREEN [facility] Start: 1965 Urine microalbumin profile [facility] Start: 1964 HEPATITIS [facility] Start: 1964 Hepatitis C screening Hepatitis C [facility] c Immunizations Immunization Date Immunization Notes Care Provider Fa cility 08-07-2022 influenza virus vacc ine, unspecified formulation Adi Kyle MD Work Phone: [facility] Payers Date Payer Category Payer Private Health Insurance [employer] [place] [place] [id number] 2022-Present [phone] [address] [place] [address] Indemnity [id number] 2022 Private Health Insurance [id number] 2021 Unknown [employer] PPO [id number] 2021-Present [phone] [address] [place] [address] PPO [id number] 2021 Unknown [employer] PPO [id number] 2021-Present [phone] [address] [place] [address] PPO [id number] 2011 Medicare MEDICARE MEDICAR E A AND B [id number] 2011-Present [phone] [place] [address] Medicare [id number] 2011 Medicare [id number] Social History Date Type Detail Facility Start: 05-22-2011 End: 08-29-2022 Tobacco smoking status NHIS Never smoked tobacco [facility] Start: 05-22-2011 End: 08-29-2022 Tobacco use and exposure Smokeless tobacco non-user [facility] Start: 11-12-2019 End: 02-27-2023 Alcohol intake Not Asked [facility] Start: 1945 Sex Assigned At Male [facility] Start: 01-14-2022 End: 08-29-2022 Exposure to SARS-CoV-2 (event) Not sure [facility] Start: 02-27-2023 End: 05-27-2023 History of Social function [facility] Start: 02-27-2023 End: 05-27-2023 Tobacco use panel [facility] Adult Depression Screening Assessment 0 [facility] Start: 04-17-2021 Gender identity Identifies as male gender (finding) [facility] Start: 04-17-2021 Sexual orientation Heterosexual (fin ding) [facility] Clinical Notes 01-24-2022 to 11-04-2023 Telephone Encounter - Leonora Betts - 10/10/2023 8:44 AM ESTTelephone Encounter - Sammie Pryor - 10/09/2023 10:03 AM ESTPatient InstructionsPatient InstructionsPatient Instructions Note Date & Type Note Facility 11-04-2023 Note HNO ID: [id number] Author: ADI KYLE MD Service: ? Author Type: Physician Type: Progress Notes Filed: 11/04/2023 11:05 Note Text: [facility] - FOLLOW UP EVALUATION - VIRTUAL VISIT Sarika Montaño MD [facility] [address] [address] Dear Sarika Montaño MD: I had the pleasure of seeing Mr. Carver for follow-up today. As you know he is a 78 year old right-handed male with a history of Parkinson disease since 2015. He is seen alone. We had a visit using: [employer] I have communicated my name and active licensure. The patient's identity and physical location were verified at the time of this visit. Either the patient or their legal sales representative education courses has been informed of the risks and [...] issues. Getting PT through [facility] [place]. No falls, but with occasional freezing. Now [...] [facility] from 11/04/2023 in [facility] Appointment from 11/01/2023 in [facility] T Score 47.7 47.7 [...] onset and 2014 (more content not included)... [facility] 10-10-2023 Miscellaneous Notes Request from patient requesting refill. Please E-Scribe to Tammy Mccain. Last OV: 06/03/23 with SS Future OV: 11/01/23 with [facility] Requested Prescriptions Pending Prescriptions Disp Refills carbidopa-levodopa (SINEMET 25-100) 25-100 mg per tablet 135 tablet 5 Sig: Take 1.5 tablet every 5 hours, 3 times daily. Leonora S documented in this encounter [facility] 10-09-2023 Miscellaneous Notes patient requesting refill as follows: Last FUV May 2023 with Patience. [facility] Requested Prescriptions Pending Prescriptions Disp Refills amantadine HCl (SYMMETREL) 100 mg capsule 360 capsule 1 Sig: Take 2 tablets at 9am, then 1 tablet at 1pm and 5pm. Upon approval, script will be sent electronically to the patient's pharmacy. Sammie Pruitt, Aircraft Fueler III documented in this encounter [facility] 09-26-2023 Miscellaneous Notes Pt requesting refill as follows: Last FUV May 2023 with Patience. Requested Prescriptions Pending Prescriptions Disp Refills carbidopa-levodopa CR (SINEMET CR) 25-100 mg per tablet 30 tablet 11 Sig: Take 1 tablet by mouth once daily. At bedtime. Upon approval, script will be sent electronically to the patient's pharmacy. Sammie Priutt, Aircraft Fueler III documented in this encounter [facility] 07-05-2023 Miscellaneous Notes Patient requests via MyChart refills as follows: When approved Rx escribed to Tammy Mccain 06/03/23 FUV w/Patience Marcos PRESS OPERATOR HEAVY DUTY Requested Prescriptions Pending Prescriptions Disp Refills carbidopa-levodopa CR (SINEMET CR) 25-100 mg per tablet 30 tablet 5 Sig: Take 1 tablet by mouth. Please review and advise. Jessica Anders documented in this encounter [facility] 06-03-2023 Note HNO ID: [id number] Author: Patience Marcos APRN.PRESS OPERATOR HEAVY DUTY Service: ? Author Type: Nurse Practitioner Type: Progress Notes Filed: 06/04/2023 10:19 AM Note Text: [facility] - FOLLOW UP EVALUATION - VIRTUAL VISIT Sarika Montaño [address] [facility] [address] Dear Sarika Montaño: I had the pleasure of seeing Mr. Carver for follow-up today. As you know he is a 77 year old right-handed male with a history of Parkinson disease since 2014. We had a visit using: [employer] I have communicated my name and active licensure. The patient's identity and physical location were verified at the time of this visit. Either the patient or their legal sales representative education courses has been informed of the risks and [...] [facility] from 06/03/2023 in [facility] Office Visit from 02/27/2023 in [facility] T Score 50.8 50.8 [...] be levodopa respo (more content not included)... [facility] 06-03-2023 Instructions Patience Marcos APRN.CNP - [...] any structural issues. documented in this encounter [facility] 06-03-2023 History of Presen t illness Narrative [facility] - FOLLOW UP EVALUATION - VIRTUAL VISIT Sarika Montaño [address] [facility] [address] [facility] [address] Dear Sarika Montaño: I had the pleasure of seeing Mr. Carver for follow-up today. As you know he is a 77 year old right-handed male with a history of Parkinson disease since 2014. We had a visit using: [employer] I have communicated my name and active licensure. The patient's identity and physical location were verified at the time of this visit. Either the patient or their legal sales representative education courses has been informed of the risks and [...] [facility] from 06/03/2023 in [facility] Office Visit from 02/27/2023 in [facility] T Score 50.8 50.8 [...] call with any questions. Sincerely, Patience Marcos APRN.PRESS OPERATOR HEAVY DUTY documented in this encounter [facility] 02-27-2023 Note HNO ID: [id number] Author: Judith Rosenberg APRN.PRESS OPERATOR HEAVY DUTY Service: ? Author Type: Nurse Practitioner Type: Progress Notes Filed: 02/27/2023 12:07 PM Note Text: [facility] - FOLLOW UP EVALUATION Sarika Montaño MD [address] [facility] [address] Dear Sarika Montaño MD: I had the [...] Row Office Visit from 02/27/2023 in [facility] Office Visit from 08/29/2022 in [facility] T Score 50.8 50.8 [...] all words eas (more content not included)... [facility] 02-27-2023 Instructions Judith Rosenberg APRN.PRESS OPERATOR HEAVY DUTY - 02/27/2023 11:43 AM EDT It was [...] or you can send a message through simfy. You can also now schedule and select appointments through simfy. Judith Rosenberg APRN.SUSAN documented in this encounter [facility] 02-27-2023 History of Presen t illness Narrative [facility] - FOLLOW UP EVALUATION Sarika Montaño MD [address] [facility] [address] Dear Sarika Montaño MD: I had the [...] Row Office Visit from 02/27/2023 in [facility] Office Visit from 08/29/2022 in [facility] T Score 50.8 50.8 [...] Judith Rosenberg APRN.CNP documented in this encounter [facility] 02-01-2023 Miscellaneous Notes Patient requests via [employer] refills as follows: When approved Rx escribed [...] 1pm and 5pm. Please review and advise. [facility] documented in this encounter [facility] 01-22-2023 Miscellaneous Notes Patient requests via [employer] refills as follows: When approved Rx escribed to [facility]. 11/02/22 FU w/F Requested Prescriptions Pending Prescriptions Disp Refills carbidopa-levodopa CR (SINEMET CR) 25-100 mg per tablet 30 tablet 5 Sig: Take 1 tablet by mouth daily at bedtime. Please review and advise. [facility] documented in this encounter [facility] 11-07-2022 Miscellaneous Notes Last FUV 11/02 with F. Script pending for approval. documented in this encounter [facility] 11-02-2022 History of Presen t illness Narrative [facility] - FOLLOW UP EVALUATION - VIRTUAL VISIT Sarika Montaño MD [address] [facility] [address] [facility] [address] Dear Sarika Montaño MD: I had the pleasure of seeing Mr. Carver for follow-up today. As you know he is a 77 year old right-handed male with a history of Parkinson disease since 2014. He is seen alone. We had a visit using: [employer] I received consent from the patient to [...] Row Office Visit from 08/29/2022 in [facility] Appointment from 01/24/2022 in [facility] T Score 50.8 50.8 [...] Adi Kyle MD documented in this encounter [facility] 08-29-2022 Instructions Suha Raza MD - 08/29/2022 [...] or you can send a message through simfy. You can also now schedule and select appointments through simfy. Suha Raza MD documented in this encounter [facility] 08-29-2022 History of Presen t illness Narrative [facility] - FOLLOW UP EVALUATION Sarika Montaño MD [address] [facility] [address] I had the pleasure of seeing Mr. [...] Row Office Visit from 08/29/2022 in [facility] Appointment from 01/24/2022 in [facility] T Score 50.8 50.8 [...] addressed during this visit: Pd (parkinson's disease) ([facility]) (primary encounter diagnosis) Levodopa-induced dyskinesia Sialorrhea Insomnia [...] FRCPC Fellow, Movement Disorders [facility] Neu[facility] attending addendum: I personally saw and examined the patient with the Fellow. The case and management was discussed in detail. I agree with the above note regarding the patient's: Pd (parkinson's disease) ([facility]) (primary encounter diagnosis) Levodopa-induced dyskinesia Sialorrhea Insomnia due to medical condition Dystonia Level of service : 22582 (40-54 min). Time spent 40 min on the day of service, which included preparing to see the patient, ozyz-wg-egzz patient care, completing clinical documentation, obtaining and/or reviewing separately obtained history, performing a medically appropriate examination, counseling and educating the patient/family/caregiver, and ordering medications, tests, or procedures. MD Elizabeth Jacobson Endowed Chair in Movement Disorders Director, [facility], [facility] piston maker (Neurology), [facility] documented in this encounter [facility] 04-24-2022 Miscellaneous Notes Request from patient requesting refill. Please E-Scribe to [facility]. Last OV: 02/23/22 with [facility] Future OV: 08/29/22 with [facility] Pending Prescriptions Disp Refills CARBIDOPA 25 MG-LEVODOPA 100 MG TABLET 135 tablet 5 Sig: Take 1.5 tablet every 5 hours, 3 times daily. ISADORA: No Leonora Blair documented in this encounter [facility] 02-23-2022 History of Presen t illness Narrative [facility] - FOLLOW UP EVALUATION Sarika Montaño MD [address] [facility] [address] I had the pleasure of seeing Mr. Carver for follow up today. He is a 76 year old right-handed male with a history of Parkinson disease since 2016. He is seen alone. We had a visit using: [employer] I received consent from the patient to [...] visit: PROMIS-10 Appointment from 01/24/2022 in [facility] Most recent reading at 01/22/2022 8:55 PM Office Visit from 01/24/2022 in [facility] Most recent reading at 01/22/2022 8:55 PM [...] addressed during this visit: Pd (parkinson's disease) ([facility]) (primary encounter diagnosis) Levodopa-induced dyskinesia Sialorrhea Plan [...] Adi Kyle MD documented in this encounter [facility] 02-13-2022 History of Presen t illness Narrative Summary: nQ Day 21 Phone call IRB# : [id number] African Studies Professor: Dr. Adi Kyle MD Study Name: [employer] ([employer]) Application in Touchscreen Devices for the Remote [...] Peralta Research Coordinator documented in this encounter [facility] 02-09-2022 History of Presen t illness Narrative Summary: [id number] nQ baseline IRB# : [id number] African Studies Professor: Dr. Adi Kyle MD Study Name: neuroQERTY (nQ) Application in Touchscreen Devices for the Remote Management of Early Parkinson's Disease (PD) Study Visit Conducted by: Jose Bassett MD Date: February 12, 2022 Patient Patient seen for baseline visit on February 12, 2022 in office. Typing tasks and MDS-UPDRS completed. Advised patient that a time study observer (Rosanna Morales) will be in contact with them on Day 21 to assist in deleting the nQ application from their phone. Jose Bassett MD documented in this encounter [facility] 01-24-2022 History of Presen t illness Narrative Summary: 21 nQ Prescreening IRB# : [id number] African Studies Professor: Dr. Adi Kyle MD Study Name: neuroQERTY [...] Montaño MD [address] [facility] [address] I had the pleasure of seeing Mr. [...] addressed during this visit: Pd (parkinson's disease) ([facility]) (primary encounter diagnosis) Levodopa-induced dyskinesia Insomnia due [...] was allergy at first, but when to court of appeals judge and was negative. Left foot has some [...] PROMIS-10 Office Visit from 01/24/2022 in [facility] from 04/21/2021 in [facility] T Score 50.8 54.1 [...] Patellar 2+ 2+ Achilles 1+ 1+ Coordination Hcnqhz-yj-yihc, rapid alternating movements and spwu-pr-dhqt normal bilaterally without dysmetria. Movement Disorders Cognitive [...] addressed during this visit: Pd (parkinson's disease) ([facility]) (primary encounter diagnosis) Levodopa-induced dyskinesia Dystonia Plan [...] note regarding the patient's: Pd (parkinson's disease) ([facility]) (primary encounter diagnosis) Levodopa-induced dyskinesia Dystonia Level of service: Est level 4 (30-39 min). Time spent 35 min on the day of service, which included vlth-rz-hqas patient care, completing clinical documentation, obtaining and/or reviewing separately obtained history, performing a medically appropriate examination, counseling and educating the patient/family/caregiver and ordering medications, tests, or procedures. MD David Jacobson and Elva Buckner Endowed Chair in Movement Disorders Director, [facility], [facility] piston maker (Neurology), [facility] documented in this encounter [facility] 01-24-2022 Instructions Willie Tracey MD - 01/24/2022 2:31 PM EDT It was a pleasure to see you today. We addressed the following diagnoses: Pd (parkinson's disease) ([facility]) (primary encounter diagnosis) Levodopa-induced dyskinesia Dystonia My [...] or you can send a message through simfy. You can also now schedule and select appointments through simfy. Willie Tracey MD documented in this encounter [facility] documented in this encounter [facility] Diagnosis Examination of participant or control in clinical research- Primary Examination of participant in clinical trial [facility]* Diagnosis PD (Parkinson's disease) (HCC)- Primary Paralysis agitans Levodopa-induced dyskinesia Subacute dyskinesia due to drugs Sialorrhea Disturbance of salivary secretion [facility] Diagnosis PD (Parkinson's disease) (HCC)- Primary Paralysis agitans Levodopa-induced dyskinesia Subacute dyskinesia due to drugs Sialorrhea Disturbance of salivary secretion 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 due to medical condition classified elsewhere Dystonia Abnormal involuntary movements [facility] Diagnosis PD (Parkinson's disease) (HCC)- Primary Paralysis agitans Levodopa-induced dyskinesia Subacute dyskinesia due to drugs Sialorrhea Disturbance of salivary secretion Bilateral leg edema Edema [facility] this [facility] Diagnosis Parkinson's disease (HCC)- Primary Paralysis agitans Motor fluctuations 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 in Parkinson's disease (HCC) Dyskinesia Lack of coordination [facility]* Diagnosis Parkinson's disease (HCC)- Primary Paralysis agitans documented in this encounter [facility] Reason for Referral Specialty Diagnoses / Procedures Referred By Enriqueta whiting Referred To Contact Diagnoses PD (Parkinson's disease) (HCC) Procedures PROVIDER ORDERED FOLLOW UP OFFICE/OUTPATIENT [facility] 60-74 MINUTES Adi Kyle MD [address] [place] [address] Referral ID Status Reason Start Date Expiration Date Visits Requested Visits Authorized [id number] Authorized PCP Requested Referral 08/26/2022 02/23/2023 1 1 Specialty Diagnoses / Procedures Referred By Contac t Referred To Contact [facility] Diagnoses PD (Parkinson's disease) (HCC) Procedures CONSULT TO PHYSICAL THERAPY PHYSICAL THERAPY EVALUATION HIGH COMPLEX 45 MINS Aid Kyle MD [address] [place] [address] [facility] [address] [place] [address] Referral ID Status Reason Start Date Expiration Date Visits Requested Visits Authorized [id number] Pending Review PCP Requested Referral Auto-Generate d Referral 08/29/2022 08/29/[phone] Referral ID Status Reason Start Date Expiration Date Visits Requested Visits Authorized [id number] Authorized PCP Requested Referral 01/31/2023 11/02/2023 1 1 Specialty Diagnoses / Procedures Referred By Contac t Referred To Contact Diagnoses Parkinson's disease (HCC) Procedures PROVIDER ORDERED FOLLOW UP OFFICE/OUTPATIENT [facility] MDM 60-74 MINUTES Judith Rosenberg APRN.CNP [address] [phone] Referral ID Status Reason Start Date Expiration Date Visits Requested Visits Authorized [id number] Authorized PCP Requested Referral 05/30/2023 02/27/2024 1 [...] or prosecute any alcohol or drug abuse patient.[facility] the event this information is protected by the Federal Confidentiality of Alcohol and Drug Abuse Patient Records regulations: The Federal rules restrict any use of the information to criminally investigate or prosecute any alcohol or drug abuse patient.[facility] the event this information is protected by the Federal Confidentiality of Alcohol and Drug Abuse Patient Records regulations: The Federal rules restrict any use of the information to criminally investigate or prosecute any alcohol or drug abuse patient.[facility] the event this information is protected by the Federal Confidentiality of Alcohol and Drug Abuse Patient Records regulations: The Federal rules restrict any use of the information to criminally investigate or prosecute any alcohol or drug abuse patient.[facility] the event this information is protected by the Federal Confidentiality of Alcohol and Drug Abuse Patient Records regulations: The Federal rules restrict any use of the information to criminally investigate or prosecute any alcohol or drug abuse patient.[facility] the event this information is protected by the Federal Confidentiality of Alcohol and Drug Abuse Patient Records regulations: The Federal rules restrict any use of the information to criminally investigate or prosecute any alcohol or drug abuse patient.[facility] the event this information is protected by the Federal Confidentiality of Alcohol and Drug Abuse Patient Records regulations: The Federal rules restrict any use of the information to criminally investigate or prosecute any alcohol or drug abuse patient.[facility] the event this information is protected by the Federal Confidentiality of Alcohol and Drug Abuse Patient Records regulations: The Federal rules restrict any use of the information to criminally investigate or prosecute any alcohol or drug abuse patient.[facility] the event this information is protected by the Federal Confidentiality of Alcohol and Drug Abuse Patient Records regulations: The Federal rules restrict any use of the information to criminally investigate or prosecute any alcohol or drug abuse patient.[facility] the event this information is protected by the Federal Confidentiality of Alcohol and Drug Abuse Patient Records regulations: The Federal rules restrict any use of the information to criminally investigate or prosecute any alcohol or drug abuse patient.[facility] the event this information is protected by the Federal Confidentiality of Alcohol and Drug Abuse Patient Records regulations: The Federal rules restrict any use of the information to criminally investigate or prosecute any alcohol or drug abuse patient.[facility] the event this information is protected by the Federal Confidentiality of Alcohol and Drug Abuse Patient Records regulations: The Federal rules restrict any use of the information to criminally investigate or prosecute any alcohol or drug abuse patient.[facility] Shaw[facility] the event this information is protected by the Federal Confidentiality of Alcohol and Drug Abuse Patient Records regulations: The Federal rules restrict any use of the information to criminally investigate or prosecute any alcohol or drug abuse patient.[facility] Shaw[facility] the event this information is protected by the Federal Confidentiality of Alcohol and Drug Abuse Patient Records regulations: The Federal rules restrict any use of the information to criminally investigate or prosecute any alcohol or drug abuse patient.[facility] Shaw[facility] the event this information is protected by the Federal Confidentiality of Alcohol and Drug Abuse Patient Records regulations: The Federal rules restrict any use of the information to criminally investigate or prosecute any alcohol or drug abuse patient.[facility] Shaw[facility] the event this information is protected by the Federal Confidentiality of Alcohol and Drug Abuse Patient Records regulations: The Federal rules restrict any use of the information to criminally investigate or prosecute any alcohol or drug abuse patient.[facility] Reason for Visit (unrecogniz ed section and content) Reason Comments Follow Up Reason Onset Date Comments Refill Request 04/13/2022 Specialty Diagnoses / Procedures Referred By Enriqueta t Referred To Contact Diagnoses PD (Parkinson's disease) (HCC) Procedures PROVIDER ORDERED FOLLOW UP OFFICE/OUTPATIENT NEW [facility] MDM 60-74 MINUTES Adi Kyle MD [address] [place] [address] Referral ID Status Reason Start Date Expiration Date V isits Requested Visits Authorized [id number] Closed PCP Requested Referral 08/26/2022 02/23/2023 1 1 Reason Onset Date Comments Refill Request 11/07/2022 Reason Onset Date Comments Refill Request 01/22/2023 Reason Onset Date Comments Refill Request 02/01/2023 Referral ID Status Reason Start Date Expiration Date V isits Requested Visits Authorized [id number] Closed PCP Requested Referral 01/31/2023 11/02/2023 1 1 Reason Comments Follow Up Specialty Diagnoses / Procedures Referred By Enriqueta t Referred To Contact Diagnoses Parkinson's disease (HCC) Procedures PROVIDER ORDERED FOLLOW UP OFFICE/OUTPATIENT [facility] MDM 60-74 MINUTES Judith Rosenberg APRN.[employer] [address] [place] [address] Referral ID Status Reason Start Date Expiration Date V isits Requested Visits Authorized [id number] Closed PCP Requested Referral 05/30/2023 02/27/2024 1 1 Reason Onset Date Comments Refill Request 07/05/2023 Reason Onset Date Comments Refill Request 09/26/2023 Reason Onset Date Comments Refill Request 10/09/2023 Care Teams (unrecognized sec tion and content) Corporate Operations Compliance Manager Relationship Specialty Start Date End Date Sarika Montaño PCP - General Family Practice 04/18/11 Corporate Operations Compliance Manager Relationship Specialty Start Date End Date Sarika Montaño PCP - General Family Practice 04/18/11 Corporate Operations Compliance Manager Relationship Specialty Start Date End Date Sarika Montaño PCP - General Family Practice 04/18/11 Corporate Operations Compliance Manager Relationship Specialty Start Date End Date Sarika Montaño PCP - General Family Practice 04/18/11 Corporate Operations Compliance Manager Relationship Specialty Start Date End Date Sarika Montaño PCP - General Family Medicine 04/18/11 Corporate Operations Compliance Manager Relationship Specialty Start Date End Date Sarika Montaño PCP - General Family [facility] 04/18/11 Corporate Operations Compliance Manager Relationship Specialty Start Date End Date Sarika Montaño PCP - General [facility] 04/18/11 Corporate Operations Compliance Manager Relationship Specialty Start Date End Date Sarika Montaño PCP - [facility] 04/18/11 Corporate Operations Compliance Manager Relationship Specialty Start Date End Date Sarika Montaño PCP - [facility] 04/18/11 Corporate Operations Compliance Manager Relationship Specialty Start Date End Date Sarika Montaño PCP [facility] 04/18/11 Corporate Operations Compliance Manager Relationship Specialty Start Date End Date Sarika Montaño PCP [facility] 04/18/11 Corporate Operations Compliance Manager Relationship Specialty Start Date End Date Sarika Montaño [facility] 04/18/11 (unrecognized sect ion and content) [...] BE BASED ON THE PRIMARY CLINICAL RECORDS. The car easily beat [facility]. provides no warranty or guarantee of the accuracy or completeness of information in this document.
[2023-12-04] MEDS: Ceftriaxone 1 GM/50 mL Premix x1 IV (02:50)
[2023-12-04] MEDS: 0.9% Normal Saline (1000mL) 1,000 ML 75 ML IV (04:06)
[2023-12-04] MEDS: guaiFENesin 600 MG Tablet PO ×2 (04:07→08:50)
[2023-12-04 07:51] LABS: Absolute Lymphocyte Count 0.86 X10^3/uL (0.83-4.51); Absolute Neutrophil Count 6.7 X10^3/uL (2.0-7.7); Basophil# 0.03 X10^3/uL; Basophil% 0.4 % (0-1); Eosinophil# 0.03 X10^3/uL; Eosinophils% 0.4 % (0-5); Hematocrit 42.1 % (40-54); Hemoglobin 14.2 g/dL (13.0-16.5); Lymphocyte # 0.86 X10^3/ul (0.83-4.51); Lymphocyte % 10.6 % (19-41); Mean Corp Hgb Conc 33.7 g/dL (32-36); Mean Corpuscular Hgb 31.5 pg (27.0-32.0); Mean Corpuscular Volume 93.3 fL (80-94); Mean Platelet Vol. 10.9 fl (6.2-12.0); Monocyte# 0.49 X10^3/uL; NRBC Flagged by Analyzer 0 % (0-5); Neutrophil # 6.67 X10^3/uL (2.7-7.7); Neutrophil % 81.9 % (47-70); Platelet Count 184 K/mm3 (150-450); RBC Distribution Width CV 14.2 % (11.6-14.6); RBC Distribution Width SD 48.2 fl (35.1-43.9); Red Blood Count 4.51 M/mm3 (4.6-6.2); White Blood Count 8.1 K/mm3 (4.4-11.0)
--- NOTE | 2023-12-04 07:56 | PCM.PN.HOSP ---
Reason for Visit Reason for Visit: Diagnoses Parkinson's disease with dyskinesia, with fluctuations (12/04/23) Acute recurrent sinusitis, unspecified (12/04/23) Other general symptoms and signs (12/04/23) Unspecified fall, initial encounter (12/04/23) Unspecified place in unspecified non-institutional (private) residence as the place of occurrence of the external cause (12/04/23) Other specified health status (12/04/23) Subjective Subjective Feeling weak overall. Objective Data Objective Data Vital Signs: Vital Signs Temp Pulse Resp BP Pulse Ox O2 Del Method 36.6 C 71 16 133/83 H 95 Room Air 12/04/23 07:16 12/04/23 07:16 12/04/23 07:24 12/04/23 07:16 12/04/23 07:26 12/04/23 07:26 Oxygen Delivery Method Room Air Weight: 68.49 kg Body Mass Index (BMI) 21.6 Intake & Output: Intake and Output for Last 24 Hours 12/02/23 12/03/23 12/04/23 23:59 23:59 23:59 Intake Total 550 / 550 Output Total 200 / 200 Balance 350 / 350 Lab / Micro Data 12/04/23 07:24 12/04/23 07:24 Labs: Laboratory Results - last 24 hr 12/03/23 21:55: Urine Color Yellow, Urine Clarity Clear, Urine pH 6.0, Ur Specific [place] 1.025, Urine Protein Negative, Urine Glucose (UA) Normal, Urine Ketones 5 H, Urine Occult Blood 25 H, Urine Nitrite Negative, Urine Bilirubin Negative, Urine Urobilinogen Normal, Ur Leukocyte Esterase 25 H, Urine RBC 0-5 SEEN, Urine WBC 0-5 SEEN, Ur Squamous Epith Cells 0 SEEN, Urine Bacteria 0 SEEN, Urine Mucus 0 SEEN 12/03/23 22:00: WBC 7.2, RBC 4.66, Hgb 15.0, Hct 43.3, MCV 92.9, MCH 32.2 H, MCHC 34.6, RDW Std Deviation 48.2 H, RDW Coeff of Ann 14.3, Plt Count 196, MPV 10.5, Immature Gran % (Auto) 0.600, Neut % (Auto) 76.8 H, Lymph % (Auto) 14.4 L, [place] % (Auto) 7.4, Eos % (Auto) 0.4, Baso % (Auto) 0.4, Absolute Neuts (auto) 5.5, Absolute Lymphs (auto) 1.03, Nucleated RBC % 0, Sodium 142, Potassium 3.8, Chloride 108 H, Carbon Dioxide 27.0, Anion Gap 7, BUN 21 H, Creatinine 0.98, Estim Creat Clear Calc 63.30, Est GFR (MDRD) Af Amer 96, Est GFR (MDRD) Non-Af 79, BUN/Creatinine Ratio 21.5 H, Glucose 108 H, Calcium 9.2 12/04/23 07:24: WBC 8.1, RBC 4.51 L, Hgb 14.2, Hct 42.1, MCV 93.3, MCH 31.5, MCHC 33.7, RDW Std Deviation 48.2 H, RDW Coeff of Ann 14.2, Plt Count 184, MPV 10.9, Immature Gran % (Auto) 0.700, Neut % (Auto) 81.9 H, Lymph % (Auto) 10.6 L, [place] % (Auto) 6.0, Eos % (Auto) 0.4, Baso % (Auto) 0.4, Absolute Neuts (auto) 6.7, Absolute Lymphs (auto) 0.86, Nucleated RBC % 0 Micro: Microbiology 12/03/23 21:50 Mucosa - Nose SARS-CoV-2, Influenza & RSV (PCR) - Final Radiography Diagnostic Testing: Radiology Impression Brain CT 12/03/23 21:41 IMPRESSION: Chronic changes as described with no acute intracranial hemorrhage or space-occupying lesion. Electronically Signed: Lashawn Salazar MD at 22:34 EST , Physical Exam Const alert and no apparent distress Constitutional Narrative: Moves all extremities spontaneously. Globally overall weak.. Sitting up in a chair. Awake and alert. Assessment & Plan Assessment/Plan (1) Parkinson disease: QUALIFIERS: Dyskinesia presence: with dyskinesia Fluctuating manifestations: with fluctuating manifestations Qualified Code(s): G20.B2 - Parkinson's disease with dyskinesia, with fluctuations PLAN: Plan Debility complicated by known Parkinson's disease, may be exacerbated. PT OT Patient decided to follow-up with outpatient therapy. Chronic sinusitis I would not qualify this as a treatment failure as he was treated several weeks ago. Also, I would not qualify this as acute, but rather chronic. DC CTX, start Flonase. Chronic conditions: Essential hypertension - Resume hydrochlorothiazide as previous plus give as needed IV hydralazine for systolic blood pressure greater than 160 mmHg. PD: continue carbidopa/levodopa DVT prophylaxis - Lovenox 40 mg sq daily.
[2023-12-04] MEDS: Enoxaparin 40 MG/0.4 ML Syringe SC (08:50)
[2023-12-04] MEDS: Amantadine 100 MG Capsule 200 MG PO (08:50)
[2023-12-04 09:17] LABS: ALB/GLOB Ratio 1.1 RATIO (0.9-2.4); AST(SGOT) 27 U/L (15-37); Alanine Aminotransfer ALT/SGPT < 6 U/L (16-61); Albumin, Serum 3.3 g/dL (3.2-5.0); Alkaline Phosphatase 59 U/L (45-117); Anion Gap 9 (5-15); BUN 16 mg/dL (7-18); BUN/Creat Ratio 19.3 RATIO (10-20); Calcium,Total 8.2 mg/dL (8.5-10.1); Chloride 107 mmol/L (98-107); Creatinine, Serum 0.83 mg/dL (0.70-1.30); EST Glomerular Filtration Rate 95 mL/min (>60); Est Glom Filt Rate - Afr Amer 116 mL/min (>60); Glucose 103 mg/dL (74-106); Potassium 3.6 mmol/L (3.5-5.1); Protein, Total 6.3 g/dL (6.4-8.2); Sodium Level 140 mmol/L (136-145); Thyroid Stim Hormone (TSH) 1.16 uIU/mL (0.358-3.74)
--- NOTE | 2023-12-04 09:38 | CASEMGMT ---
SHARAN MORROW Assessment Face to Face with patient for initial transition planning/care coordination assessment. SHARAN MORROW introduced self and role at [facility], pt voices understanding. Pt is A&Ox4 and is resting comfortably in the chair and is calm. Care providers, pharmacy, and demographics verified. Admitting dx: Inability to stand, Parkinsons LACE Strata: 1 PCP: Danyel Specialists: Adi Kyle ([facility] Main - Movement Specialist) Preferred Pharmacy: [facility] Insurance: [facility] Prescription Benefit: Yes LNOK: Carmella Martin (Daughter) Living Arrangements: Pt lives alone in a 2 story home with a BM with HR and 2 steps to enter the home with HR. Pt denies issues using the steps normally if he uses the HR. ADLs/IADLs: Normally Ind Transportation: Pt drives. Pt daughter drives. DME: Pt states he has a walking cane at home that he only uses for hiking. Pt has a walk-in shower with a shower chair and GB HHC/SNF: Denies history Plan: PT/OT needs to eval the pt. The pt 6-Click score is 12 as of now. The pt states he would be interested in RU placement for additional therapy if needed. DUGLAS [facility] notified. CRISTHIAN/DUGLAS to follow pending therapy evaluations. Laury Lam RN, CM
[2023-12-04] MEDS: Fluticasone 0.05% 1 SPRAY NASAL.SRY NASAL (09:41)
--- NOTE | 2023-12-04 11:53 | CASEMGMT ---
Addendum entered by Luz Maria Lam 12/04/23 12:31: Order faxed to [facility] at this time. Rx filed in pt chart. Original Note: Pt did well with therapy and they are not recommending any additional therapy. RN CRISTHIAN to pt room for DC planning and the pt states that he would like [facility] to come to the home. Pt was educated that the pt would need to be considered Home bound and the pt states that he would not qualify for that. Pt states that he or his daughter could drive him to OP therapy. Pt was provided a verbal list of local OP facilities at this time. Pt states he has a history at [facility] and would like to return for PT. Pt states that he would like this RN CRISTHIAN to set this up. Pt states that he would like this set up for any day past 1030. Dr. Srivastava paged and states he will sign an order for OP therapy. [facility] called at this time and state they can accept the pt for an appt on SatDec 11 at 3:30 for PT. Pt updated and states agreeable to this plan. Will fax order to [facility] once Dr. Srivastava returns the signed Rx.
--- NOTE | 2023-12-04 12:31 | DS.PCM_ITS ---
Providers Date of Admission: 12/04/23 Primary Care Physician: Dr. Sarika Montaño MD Reason For Visit: INABILITY TO STAND, PARKINSONS Diagnosis Discharge Diagnosis (1) Parkinson disease: Status: Acute Code(s): G20.A1 - Parkinson's disease without dyskinesia, without mention of fluctuations Qualifiers: Dyskinesia presence: with dyskinesia Fluctuating manifestations: with fluctuating manifestations Qualified Code(s): G20.B2 - Parkinson's disease with dyskinesia, with fluctuations Plan Debility * complicated by known Parkinson's disease, may be exacerbated. * PT OT * Patient decided to follow-up with outpatient therapy. Chronic sinusitis * I would not qualify this as a treatment failure as he was treated several weeks ago. Also, I would not qualify this as acute, but rather chronic. * DC CTX, start Flonase. Chronic conditions: * Essential hypertension - Resume hydrochlorothiazide as previous plus give as needed IV hydralazine for systolic blood pressure greater than 160 mmHg. * PD: continue carbidopa/levodopa DVT prophylaxis - Lovenox 40 mg sq daily. Medications at Discharge Home Medications amantadine HCl 100 mg capsule 100 mg PO .COMPLEX [place] 12/04/23 carbidopa 25 mg-levodopa 100 mg tablet 1.5 tab PO TID 12/04/23 carbidopa ER 25 mg-levodopa 100 mg tablet,extended release 1 tab PO QHS [place] 12/04/23 fluticasone propionate 50 mcg/actuation nasal spray,suspension 1 spray NASAL BID #16 grams 12/04/23 Hospital Course Summary of Care Provided Minutes Spent on Discharge: 32 Weight / BMI Weight Weight: 68.49 kg Body Mass Index (BMI) 21.6 ABG / Lab / Microbiology Data 12/04/23 07:24 12/04/23 07:24 Laboratory: Laboratory Results - last 24 hr 12/03/23 21:55: Urine Color Yellow, Urine Clarity Clear, Urine pH 6.0, Ur Specific [place] 1.025, Urine Protein Negative, Urine Glucose (UA) Normal, Urine Ketones 5 H, Urine Occult Blood 25 H, Urine Nitrite Negative, Urine Bilirubin Negative, Urine Urobilinogen Normal, Ur Leukocyte Esterase 25 H, Urine RBC 0-5 SEEN, Urine WBC 0-5 SEEN, Ur Squamous Epith Cells 0 SEEN, Urine Bacteria 0 SEEN, Urine Mucus 0 SEEN 12/03/23 22:00: WBC 7.2, RBC 4.66, Hgb 15.0, Hct 43.3, MCV 92.9, MCH 32.2 H, MCHC 34.6, RDW Std Deviation 48.2 H, RDW Coeff of Ann 14.3, Plt Count 196, MPV 10.5, Immature Gran % (Auto) 0.600, Neut % (Auto) 76.8 H, Lymph % (Auto) 14.4 L, [place] % (Auto) 7.4, Eos % (Auto) 0.4, Baso % (Auto) 0.4, Absolute Neuts (auto) 5.5, Absolute Lymphs (auto) 1.03, Nucleated RBC % 0, Sodium 142, Potassium 3.8, Chloride 108 H, Carbon Dioxide 27.0, Anion Gap 7, BUN 21 H, Creatinine 0.98, Estim Creat Clear Calc 63.30, Est GFR (MDRD) Af Amer 96, Est GFR (MDRD) Non-Af 79, BUN/Creatinine Ratio 21.5 H, Glucose 108 H, Calcium 9.2 12/04/23 07:24: WBC 8.1, RBC 4.51 L, Hgb 14.2, Hct 42.1, MCV 93.3, MCH 31.5, MCHC 33.7, RDW Std Deviation 48.2 H, RDW Coeff of Ann 14.2, Plt Count 184, MPV 10.9, Immature Gran % (Auto) 0.700, Neut % (Auto) 81.9 H, Lymph % (Auto) 10.6 L, [place] % (Auto) 6.0, Eos % (Auto) 0.4, Baso % (Auto) 0.4, Absolute Neuts (auto) 6.7, Absolute Lymphs (auto) 0.86, Nucleated RBC % 0, Sodium 140, Potassium 3.6, Chloride 107, Carbon Dioxide 24.0, Anion Gap 9, BUN 16, Creatinine 0.83, Estim Creat Clear Calc 72.20, Est GFR (MDRD) Af Amer 116, Est GFR (MDRD) Non-Af 95, BUN/Creatinine Ratio 19.3, Glucose 103, Calcium 8.2 L, Total Bilirubin 2.10 H, AST 27, ALT < 6 L, Alkaline Phosphatase 59, Total Protein 6.3 L, Albumin 3.3, Globulin 3.0, Albumin/Globulin Ratio 1.1, TSH 1.16 Microbiology: Microbiology 12/03/23 21:50 Mucosa - Nose SARS-CoV-2, Influenza & RSV (PCR) - Final Radiography Diagnostic Testing: Radiology Impression Brain CT 12/03/23 21:41 IMPRESSION: Chronic changes as described with no acute intracranial hemorrhage or space-occupying lesion. Electronically Signed: Lashawn Salazar MD at 22:34 EST , D/C Instructions Discharge Diet: No restrictions Meaningful Use Info Meaningful Use Diagnoses (Choose all that apply): None applicable Discharge Plan Admission Admit Date/Time: 12/04/23 00:50 Primary Reason for Your Visit: Debility Attending Provider: Fritz Srivastava Primary Care Provider: Sarika Montaño Consulting Providers: Marcelo Tan Instructions Additional Instructions / Restrictions: Unfortunately are weak due to your Parkinson's. No obvious reversible cause was identified. Did have some sinusitis noted in your right sinus but I do not feel that this was the cause. I do recommend taking Flonase to help with that. Please follow-up with outpatient physical therapy. Discharge Orders/Prescriptions Prescriptions: New fluticasone propionate 50 mcg/actuation [place],Suspension 1 spray NASAL BID Qty: 16 0RF Continued carbidopa-levodopa 25-100 mg tablet 1.5 tab PO TID Patient Comments: take 1 AND 1/2 tablet by mouth three times a day carbidopa-levodopa 25-100 mg tablet extended release 1 tab PO QHS amantadine HCl 100 mg capsule 100 mg PO .COMPLEX Patient Comments: take 2 tablets by mouth AT 9AM then 1 tablet by mouth AT 1PM and AT 5PM Rx Instructions: take 2 tablets by mouth AT 9AM then 1 tablet by mouth AT 1PM and AT 5PM Discontinued hydrochlorothiazide 12.5 mg capsule 12.5 mg PO DAILY Patient Comments: take 1 capsule by mouth once daily Referrals / Follow Up: Sarika Montaño MD [Primary Care Provider] - Within 2 Weeks Disposition Disposition (needs filled in before D/C Order can be placed): Home, Self Care Charges/Coding Visit Charges Inpatient E&M: 32430 Disch Hosp >30min
--- NOTE | 2023-12-04 12:32 | CASEMGMT ---
Social Work SW met with pt to discuss advance directives.? Pt confirms he has completed a living will and health care POA naming his daughter Carmella Martin.? Pt notified that documents are not on file at [facility] and SW requested they be brought in for scanning into the EMR.? JOAN Sanchez
[2023-12-04] MEDS: Amantadine 100 MG Capsule PO (13:00)
--- NOTE | 2023-12-04 14:36 | PHA.DC.MR.R ---
Pharmacy [place] Med Reconciliation Pharmacy Service has performed discharge medication reconciliation for this patient. Medication education papers prepared, patient discharged when counseling was attempted. Medications reviewed. The patient's discharge medication list was reviewed for discrepancies and discrepancies were resolved. Medications at Discharge Home Medications amantadine HCl 100 mg capsule 100 mg PO .COMPLEX [place] 12/04/23 carbidopa 25 mg-levodopa 100 mg tablet 1.5 tab PO TID 12/04/23 carbidopa ER 25 mg-levodopa 100 mg tablet,extended release 1 tab PO QHS [place] 12/04/23 fluticasone propionate 50 mcg/actuation nasal spray,suspension 1 spray NASAL BID #16 grams 12/04/23
== END 2023-12-04 14:07 | disposition home or self-care (01) ==
LOC: ED 12-04 00:40 → MS3 12-04 00:50
PROVIDERS: Admitting Provider Internal Medicine; Emergency Provider Emergency Medicine; PCP Family Medicine
DX: E86.0 Dehydration (principal); I10 Essential (primary) hypertension; G20.B2 Parkinson's disease with dyskinesia, with fluctuations; J32.9 Chronic sinusitis, unspecified; Z91.81 History of falling; Z79.899 Other long term (current) drug therapy
CPT/HCPCS: 36415; 70450; 80048; 80053; 81001; 84443; 85025; 87086; 87631; 93005; 94668; 96360; 96361; 96365; 96372; 97162; 99221; 99285; J7030; J7040; G0378

== ENCOUNTER 2023-12-13 11:55 | Inpatient (IN) | payer MEDICARE, OTHER, SELFPAY ==
[2023-12-13] VITALS (12 sets, daily range): BP systolic 142–163; BP diastolic 40–98; PULSE 81–98; RESP 12–23; TEMP 36.2–36.8; O2SAT 91–100; BMI 22.2; BMI 26.2
[2023-12-13 12:47] LABS: Absolute Lymphocyte Count 0.41 X10^3/uL (0.83-4.51); Absolute Neutrophil Count 22.9 X10^3/uL (2.0-7.7); Basophil# 0.12 X10^3/uL; Basophil% 0.5 % (0-1); Hematocrit 46.8 % (40-54); Hemoglobin 16.2 g/dL (13.0-16.5); Lymphocyte # 0.41 X10^3/ul (0.83-4.51); Lymphocyte % 1.7 % (19-41); Mean Corp Hgb Conc 34.6 g/dL (32-36); Mean Corpuscular Hgb 32.7 pg (27.0-32.0); Mean Corpuscular Volume 94.4 fL (80-94); Monocyte# 1.05 X10^3/uL; Monocyte% 4.2 % (0-10); NRBC Flagged by Analyzer 0 % (0-5); Neutrophil # 22.87 X10^3/uL (2.7-7.7); Neutrophil % 92.3 % (47-70); POSITIVE DIFFERENTIAL YES; POSITIVE MORPHOLOGY YES; Platelet Count 257 K/mm3 (150-450); RBC Distribution Width CV 14.5 % (11.6-14.6); RBC Distribution Width SD 49.6 fl (35.1-43.9); Red Blood Count 4.96 M/mm3 (4.6-6.2); White Blood Count 24.8 K/mm3 (4.4-11.0)
[2023-12-13 12:57] LABS: Differential Indicated SCAN CRITERIA MET
[2023-12-13 13:02] LABS: AST(SGOT) 23 U/L (15-37); Alanine Aminotransfer ALT/SGPT 13 U/L (16-61); Albumin, Serum 3.8 g/dL (3.2-5.0); Alkaline Phosphatase 68 U/L (45-117); Anion Gap 8 (5-15); BUN 29 mg/dL (7-18); BUN/Creat Ratio 21.8 RATIO (10-20); Calcium,Total 9.4 mg/dL (8.5-10.1); Chloride 101 mmol/L (98-107); Creatinine, Serum 1.33 mg/dL (0.70-1.30); EST Glomerular Filtration Rate 55 mL/min (>60); Est Glom Filt Rate - Afr Amer 67 mL/min (>60); Estimated Creatinine Clearance 46.34 ml/min; Globulin 3.9 g/dL (2.2-4.2); Glucose 179 mg/dL (74-106); Potassium 4.5 mmol/L (3.5-5.1); Protein, Total 7.7 g/dL (6.4-8.2); Sodium Level 136 mmol/L (136-145)
[2023-12-13 13:17] LABS: Differential Comment SCANNED
--- NOTE | 2023-12-13 13:46 | CT_ITS ---
STUDY: CT ABDOMEN AND PELVIS WITH CONTRAST REASON FOR EXAM: Male, 78 years old. Abdominal pain RADIATION DOSAGE (If Supplied By Facility): CTDIvol = ( 12.86 ) mGy, DLP = ( 703.26 ) mGycm TECHNIQUE: Transaxial images were obtained from the dome of the diaphragm to the symphysis pubis without oral contrast. IV 100mL Isovue-370 was administered. Sagittal and coronal images were reconstructed. Individualized dose optimization techniques were used for this CT. COMPARISON: None. FINDINGS: The visualized lung bases are unremarkable. Coronary artery calcification. Normal liver. Normal gallbladder and extrahepatic biliary system. Normal spleen. Normal pancreas. Normal bilateral adrenal glands. Normal right kidney. There is a 6.1 cm x 5.6 cm cyst in the upper midportion of the left kidney. There is a small hiatal hernia. Fluid is seen within the distal esophagus. Normal small intestine. Marked degree of colonic distention containing fluid and fecal material. Fecal material is seen in the sigmoid colon as well as the rectosigmoid colon. A sigmoid volvulus should be ruled out. The appendix is visualized and appears normal. There is diffuse atherosclerotic calcification of the abdominal aorta, without a demonstrated aneurysm. Normal inferior vena cava. Normal retroperitoneum. Normal urinary bladder. There are prostatic calcifications. Normal abdominal wall. There are diffuse degenerative changes of the visualized lumbar spine. CT/Abdomen/Pelvis W IV Cont ONLY IMPRESSION: Marked degree of distention of the colon down to the region of the sigmoid colon. Sigmoid volvulus should be ruled out. 6.1 cm x 5 0.6 mL cyst in the upper midportion of the left kidney. N.B. : The above Results were Read Back by Brady Mackenzie MD to PANCHO Barker, and understanding confirmed on 12/13/2023 14:42:30 (ET). Electronically Signed: Brady Mackenzie MD at 14:43 EST ,
--- NOTE | 2023-12-13 13:50 | ED.VIS.GI ---
HPI <PANCHO Barker - Last Filed: 12/13/23 15:52> HPI - GI History of Present Illness Chief Complaint: Abd Pain Narrative Narrative: Patient presenting today due to abdominal pain, nausea, and vomiting that started last night. He reports that yesterday for dinner he had [employer] and coleslaw. Around 10 PM he began to have lower and periumbilical abdominal cramping. He reports that the pain is intermittent. He has had several episodes of vomiting. He reports that his vomit is dark in color. He denies coffee-ground emesis. He denies any history of bowel obstruction, diverticulitis, or previous abdominal surgeries. His last bowel movement was yesterday morning, he reports passing minimal gas today. He denies any fevers, chills, melena, hematochezia, and urinary symptoms. PMH includes Parkinson's disease. PFSH <PANCHO Barker - Last Filed: 12/13/23 15:52> PFSH Medical History Parkinson disease Parkinson disease Home Medications amantadine HCl 100 mg capsule 100 mg PO DAILY [place] 12/04/23 [History Last Taken Unknown] carbidopa 25 mg-levodopa 100 mg tablet 1.5 tab PO DAILY 12/04/23 [History Last Taken Unknown] carbidopa ER 25 mg-levodopa 100 mg tablet,extended release 1 tab PO QHS [place] 12/04/23 [History Last Taken Unknown] carbidopa 25 mg-levodopa 100 mg tablet 1 tab PO BID 12/13/23 [History Last Taken Unknown] Allergy/AdvReac Type Severity Reaction Status Date / Time No Known Allergies Allergy Verified 12/13/23 11:57 Social History Smoking Status: Never smoker ROS <PANCHO Barker - Last Filed: 12/13/23 15:52> ROS ED Constitutional Constitutional ED: Denies chills or fever(s) Cardiovascular Cardiovascular: Denies chest pain Respiratory/Chest Respiratory/Chest: Denies cough or dyspnea Gastrointestinal Gastrointestinal: Reports abdominal pain, nausea and vomiting; Denies constipation, diarrhea, hematemesis, hematochezia or melena Genitourinary Genitourinary ED: Denies dysuria, hematuria or urinary urgency Musculoskeletal Musculoskeletal: Denies arthralgias or myalgias Integumentary Denies rash Neurologic Neurologic: Denies weakness EXAM <PANCHO Barker - Last Filed: 12/13/23 15:52> Physical Exam Const Vital Signs: 12/13/23 11:56 12/13/23 13:55 12/13/23 15:00 Temperature 97.8 F Temperature Source Temporal Pulse Rate 82 85 83 Respiratory Rate 18 16 16 Blood Pressure 154/84 H 159/85 H 160/90 H Blood Pressure Mean 107 109 113 Pulse Ox 98 100 100 Oxygen Delivery Method Room Air Room Air Room Air 12/13/23 15:14 Temperature 97.2 F L Temperature Source Pulse Rate 85 Respiratory Rate 16 Blood Pressure 160/40 H Blood Pressure Mean 80 Pulse Ox 99 Oxygen Delivery Method Positive well nourished, well developed and no apparent distress General Appearance ED: well developed HEENT Reports normocephalic and head/scalp atraumatic Mouth ED: Yes moist mucous membranes normal Eyes PERRL and EOMs intact bilaterally Neck full ROM and supple Chest Wall inspection of chest normal Resp normal respiratory effort and clear to auscultation bilaterally Cardio regular rate and regular rhythm GI soft to palpation, non-distended and no masses GI Narrative: Diffuse lower abdominal tenderness to palpation, rigidity present, no guarding. Negative Mercedes sign Back/Spine normal ROM and normal to inspection Extremity normal to inspection and full ROM Neuro oriented x3, CN's II-XII intact bilaterally, moves all extremities, no focal motor deficits and no sensory deficits noted Sensorium / Orientation: awake and alert Psych mental status grossly normal and thought process normal Skin no rashes or lesions noted and no wounds <Dr. Nikolay Rose MD - Last Filed: 12/13/23 14:56> Physical Exam Const Vital Signs: 12/13/23 11:56 12/13/23 13:55 12/13/23 15:00 Temperature 97.8 F Temperature Source Temporal Pulse Rate 82 85 83 Respiratory Rate 18 16 16 Blood Pressure 154/84 H 159/85 H 160/90 H Blood Pressure Mean 107 109 113 Pulse Ox 98 100 100 Oxygen Delivery Method Room Air Room Air Room Air 12/13/23 15:14 Temperature 97.2 F L Temperature Source Pulse Rate 85 Respiratory Rate 16 Blood Pressure 160/40 H Blood Pressure Mean 80 Pulse Ox 99 Oxygen Delivery Method MDM <PANCHO Barker - Last Filed: 12/13/23 15:52> [facility] Narrative Medical decision making narrative: Patient presenting due to lower abdominal pain, nausea, and vomiting that started last night. He does have rigidity and tenderness across his lower abdomen. Labs will be obtained to rule out leukocytosis, anemia, electrode abnormality, hepatobiliary etiology, MANPREET, and UTI. CT of the abdomen and pelvis will be obtained to rule out diverticulitis, appendicitis, bowel obstruction, cholecystitis, and other etiology. He will be given IV fluids, morphine, and Zofran. The radiologist did report concerns for sigmoid volvulus. General surgeon, Dr. Kirkland was consulted and came to evaluate the patient. He will be taking patient to the OR in stable condition. I have personally performed a face to face assessment of the patient and have reviewed the TRACEY Note. I performed a substantive portion of the visit including all aspects of the following. My polanco findings include: History is [78-year-old male complaining of lower abdominal pain since about 10 PM last night. No prior abdominal surgeries. No dysuria or urinary retention. No fever. He has had nausea and vomiting. No diarrhea. No bowel movement. No dysuria.] Exam is [78-year-old male vital signs stable afebrile. HEENT exam dry mucous membranes. Neck nontender. Lungs clear to auscultation. Heart regular rhythm rate about 80 no murmur. Chest wall and ribs nontender. Abdomen distended consistent with a bowel obstruction. Primarily tender in the lower quadrants. I do not appreciate any bowel sounds. No mass. Moving all 4 extremities. Nontender no edema. Neurologically is awake and alert with no focal motor deficits.] Medical Decision Making [78-year-old male concern for a bowel obstruction. CAT scan and labs pending. CAT scan shows a bowel obstruction possibly a sigmoid volvulus. I have already spoken to Dr. Surjit Kirkland general surgery will be down evaluate the patient.] Other additions or changes: [Patient was treated with IV morphine and Zofran. Currently his pain is under control. He also was given a liter normal saline.] Lab Data Attestation: I reviewed the patient's lab results. Labs: Laboratory Results - last 24 hr 12/13/23 12/13/23 12:40 14:57 WBC 24.8 H RBC 4.96 Hgb 16.2 Hct 46.8 MCV 94.4 H MCH 32.7 H MCHC 34.6 RDW Std Deviation 49.6 H RDW Coeff of Ann 14.5 Plt Count 257 MPV 11.0 Immature Gran % (Auto) 1.300 H Neut % (Auto) 92.3 H Lymph % (Auto) 1.7 L [place] % (Auto) 4.2 Eos % (Auto) 0.0 Baso % (Auto) 0.5 Absolute Neuts (auto) 22.9 H Absolute Lymphs (auto) 0.41 L Nucleated RBC % 0 Differential Comment SCANNED Diff Path Review February foll Sodium 136 Potassium 4.5 Chloride 101 Carbon Dioxide 27.0 Anion Gap 8 BUN 29 H Creatinine 1.33 H Estim Creat Clear Calc 46.34 Est GFR (MDRD) Af Amer 67 Est GFR (MDRD) Non-Af 55 L BUN/Creatinine Ratio 21.8 H Glucose 179 H Calcium 9.4 Total Bilirubin 2.40 H AST 23 ALT 13 L Alkaline Phosphatase 68 Total Protein 7.7 Albumin 3.8 Globulin 3.9 Albumin/Globulin Ratio 1.0 Lipase 15 Urine Color Yellow Urine Clarity Clear Urine pH 5.0 Ur Specific [place] 1.015 Urine Protein 30 H Urine Glucose (UA) Normal Urine Ketones 5 H Urine Occult Blood 25 H Urine Nitrite Positive H Urine Bilirubin 1 H Urine Urobilinogen 4 H Ur Leukocyte Esterase 25 H Urine RBC 0 SEEN Urine WBC 0-5 SEEN Ur Squamous Epith Cells 0 SEEN Urine Bacteria 0 SEEN Urine Mucus 0 SEEN Radiography Diagnostic Testing: Clinical Impression(s) from Imaging Studies Abdomen/Pelvis CT 12/13/23 13:46 IMPRESSION: Marked degree of distention of the colon down to the region of the sigmoid colon. Sigmoid volvulus should be ruled out. 6.1 cm x 5 0.6 mL cyst in the upper midportion of the left kidney. N.B. : The above Results were Read Back by Brady Mackenzie MD to PANCHO Barker, and understanding confirmed on 12/13/2023 14:42:30 (ET). Electronically Signed: Brady Mackenzie MD at 14:43 EST , ADDENDUM: 12/13/23 1450 IMPRESSION: Marked degree of distention of the colon down to the region of the sigmoid colon. Sigmoid volvulus should be ruled out. 6.1 cm x 5 0.6 mL cyst in the upper midportion of the left kidney. N.B. : The above Results were Read Back by Brady Mackenzie MD to PANCHO Barker, and understanding confirmed on 12/13/2023 14:42:30 (ET). Electronically Signed: Brady Mackenzie MD at 14:43 EST , <Dr. Nikolay Rose MD - Last Filed: 12/13/23 14:56> [facility] Narrative Medical decision making narrative: Patient presenting due to lower abdominal pain, nausea, and vomiting that started last night. He does have tenderness across his lower abdomen. Labs will be obtained to rule out leukocytosis, anemia, electrode abnormality, hepatobiliary etiology, MANPREET, and UTI. CT of the abdomen and pelvis will be obtained to rule out diverticulitis, appendicitis, bowel obstruction, cholecystitis, and other etiology. He will be given IV fluids, morphine, and Zofran. I have personally performed a face to face assessment of the patient and have reviewed the TRACEY Note. I performed a substantive portion of the visit including all aspects of the following. My polanco findings include: History is [78-year-old male complaining of lower abdominal pain since about 10 PM last night. No prior abdominal surgeries. No dysuria or urinary retention. No fever. He has had nausea and vomiting. No diarrhea. No bowel movement. No dysuria.] Exam is [78-year-old male vital signs stable afebrile. HEENT exam dry mucous membranes. Neck nontender. Lungs clear to auscultation. Heart regular rhythm rate about 80 no murmur. Chest wall and ribs nontender. Abdomen distended consistent with a bowel obstruction. Primarily tender in the lower quadrants. I do not appreciate any bowel sounds. No mass. Moving all 4 extremities. Nontender no edema. Neurologically is awake and alert with no focal motor deficits.] Medical Decision Making [78-year-old male concern for a bowel obstruction. CAT scan and labs pending. CAT scan shows a bowel obstruction possibly a sigmoid volvulus. I have already spoken to Dr. Surjit Kirkland general surgery will be down evaluate the patient.] Other additions or changes: [Patient was treated with IV morphine and Zofran. Currently his pain is under control. He also was given a liter normal saline.] History & Record Review Discussion w/independent historian: Patient and Family Additional record(s) reviewed:: Prior inpatient record, Prior outpatient record, Prior ED visit and Prior labs Lab Data Lab results narrative: CBC shows an elevated white count of 24,000. H&H is 16 and 46. Electrolytes show a gap of 8. BUN of 29 creatinine 1.3. Liver enzymes are unremarkable. Lipase is normal at 15. Labs: Laboratory Results - last 24 hr 12/13/23 12/13/23 12:40 14:57 WBC 24.8 H RBC 4.96 Hgb 16.2 Hct 46.8 MCV 94.4 H MCH 32.7 H MCHC 34.6 RDW Std Deviation 49.6 H RDW Coeff of Ann 14.5 Plt Count 257 MPV 11.0 Immature Gran % (Auto) 1.300 H Neut % (Auto) 92.3 H Lymph % (Auto) 1.7 L [place] % (Auto) 4.2 Eos % (Auto) 0.0 Baso % (Auto) 0.5 Absolute Neuts (auto) 22.9 H Absolute Lymphs (auto) 0.41 L Nucleated RBC % 0 Differential Comment SCANNED Diff Path Review [place] foll Sodium 136 Potassium 4.5 Chloride 101 Carbon Dioxide 27.0 Anion Gap 8 BUN 29 H Creatinine 1.33 H Estim Creat Clear Calc 46.34 Est GFR (MDRD) Af Amer 67 Est GFR (MDRD) Non-Af 55 L BUN/Creatinine Ratio 21.8 H Glucose 179 H Calcium 9.4 Total Bilirubin 2.40 H AST 23 ALT 13 L Alkaline Phosphatase 68 Total Protein 7.7 Albumin 3.8 Globulin 3.9 Albumin/Globulin Ratio 1.0 Lipase 15 Urine Color Yellow Urine Clarity Clear Urine pH 5.0 Ur Specific [place] 1.015 Urine Protein 30 H Urine Glucose (UA) Normal Urine Ketones 5 H Urine Occult Blood 25 H Urine Nitrite Positive H Urine Bilirubin 1 H Urine Urobilinogen 4 H Ur Leukocyte Esterase 25 H Urine RBC 0 SEEN Urine WBC 0-5 SEEN Ur Squamous Epith Cells 0 SEEN Urine Bacteria 0 SEEN Urine Mucus 0 SEEN Radiography Diagnostic Testing: Clinical Impression(s) from Imaging Studies Abdomen/Pelvis CT 12/13/23 13:46 IMPRESSION: Marked degree of distention of the colon down to the region of the sigmoid colon. Sigmoid volvulus should be ruled out. 6.1 cm x 5 0.6 mL cyst in the upper midportion of the left kidney. N.B. : The above Results were Read Back by Brady Mackenzie MD to PANCHO Barker, and understanding confirmed on 12/13/2023 14:42:30 (ET). Electronically Signed: Brady Mackenzie MD at 14:43 EST , ADDENDUM: 12/13/23 1450 IMPRESSION: Marked degree of distention of the colon down to the region of the sigmoid colon. Sigmoid volvulus should be ruled out. 6.1 cm x 5 0.6 mL cyst in the upper midportion of the left kidney. N.B. : The above Results were Read Back by Brady Mackenzie MD to PANCHO Barker, and understanding confirmed on 12/13/2023 14:42:30 (ET). Electronically Signed: Brady Mackenzie MD at 14:43 EST , Discharge Plan Triage Chief Complaint: Abd Pain ED Midlevel Provider: Monica James ED Provider: Nikolay Rose Dx/Rx/DC Orders Clinical Impression: Bowel obstruction, Nausea & vomiting Primary Care Provider: Sarika Montaño Disposition Disposition: Acute Care [facility]
[2023-12-13] MEDS: 0.9% Normal Saline (1000mL) 1,000 ML 999 ML IV (13:54)
[2023-12-13] MEDS: Ondansetron 4 MG/2 ML Vial IV (13:54)
[2023-12-13] MEDS: Morphine 4 MG/ML Syringe IV (13:54)
[2023-12-13 14:04] LABS: Lipase 15 U/L (13-75)
[2023-12-13 15:03] LABS: Bacteria 0 SEEN /hpf (None Seen); Mucous, Urine 0 SEEN /hpf (<or=2+); Red Blood Cells-Urine 0 SEEN /hpf (0-5); Squamous Epithelial Cells - UA 0 SEEN /hpf (0-5)
[2023-12-13 15:06] LABS: Color, Urine Yellow (Yellow); Glucose, Dipstick Normal (Normal); Ketone-Dipstick 5 mg/dl (Negative); Leukocyte Esterase-Dipstick 25 /ul (Negative); Nitrite-Dipstick Positive (Negative); Occult Blood-Urine 25 /ul (Negative); Protein-Dipstick 30 mg/dl (Negative); Specific Gravity, Urine 1.015 (1.002-1.030); Urine Clarity Clear (Clear); Urine Urobilinogen 4 mg/dl (Normal)
[2023-12-13 15:07] LABS: Urine Bilirubin Dipstick 1 mg/dL (Negative)
[2023-12-13 15:12] LABS: White Blood Cells 0-5 SEEN /hpf (0-5)
--- NOTE | 2023-12-13 15:39 | HP.PCM_ITS ---
HPI - General General Date of Admission: 12/13/23 HPI Narrative ANTHONY VIDES, is a 78 M who presents to [facility] with complaints of sudden onset abdominal pain and nausea/vomiting that began approximately 10 PM yesterday. Patient states that he has been unable to do a nything besides drink some water today. He feels significant pain and pressure at this point. He does report some minimal passage of flatus throughout the day and has not had a bowel movement. He has never had discomfort like this before. Patient's ER workup is notable for CBC that demonstrates a leukocytosis of 24.8. CT imaging of the abdomen pelvis read by radiology is concerning for sigmoid volvulus and demonstrates phonic distention up to 10 cm. Patient reports a history of a colonoscopy a few years ago and states that at that time everything was clear. He does confirm a history of constipation, but states this is well-managed with regular use of Metamucil. Patient has no prior abdominal surgical history. [facility] Medical History Parkinson disease Parkinson disease Home Medications amantadine HCl 100 mg capsule 100 mg PO DAILY hill 12/04/23 [History Last Taken Unknown] carbidopa 25 mg-levodopa 100 mg tablet 1.5 tab PO DAILY 12/04/23 [History Last Taken Unknown] carbidopa ER 25 mg-levodopa 100 mg tablet,extended release 1 tab PO QHS hill 12/04/23 [History Last Taken Unknown] carbidopa 25 mg-levodopa 100 mg tablet 1 tab PO BID 12/13/23 [History Last Taken Unknown] Allergy/AdvReac Type Severity Reaction Status Date / Time No Known Allergies Allergy Verified 12/13/23 11:57 Surgical History no surgical history Social History Smoking Status: Never smoker Vital Signs Vital Signs Vital Signs: 12/13/23 11:56 12/13/23 13:55 12/13/23 15:00 Temperature 97.8 F Temperature Source Temporal Pulse Rate 82 85 83 Respiratory Rate 18 16 16 Blood Pressure 154/84 H 159/85 H 160/90 H Blood Pressure Mean 107 109 113 Pulse Ox 98 100 100 Oxygen Delivery Method Room Air Room Air Room Air 12/13/23 15:14 Temperature 97.2 F L Temperature Source Pulse Rate 85 Respiratory Rate 16 Blood Pressure 160/40 H Blood Pressure Mean 80 Pulse Ox 99 Oxygen Delivery Method Weight Weight: 155 lb 4.8 oz Body Mass Index (BMI) 22.2 Physical Exam Const alert Constitutional Narrative: Mild distress from discomfort, oriented, cooperative GI GI Narrative: Thin, no scars, distended, mildly tympanitic, tenderness to palpation?primarily periumbilical Results Lab / Micro Data 12/13/23 12:40 12/13/23 12:40 Labs: Laboratory Results - last 24 hr 12/13/23 12:40: WBC 24.8 H, RBC 4.96, Hgb 16.2, Hct 46.8, MCV 94.4 H, MCH 32.7 H , MCHC 34.6, RDW Std Deviation 49.6 H, RDW Coeff of Ann 14.5, Plt Count 257, MPV 11.0, Immature Gran % (Auto) 1.300 H, Neut % (Auto) 92.3 H, Lymph % (Auto) 1.7 L , [place] % (Auto) 4.2, Eos % (Auto) 0.0, Baso % (Auto) 0.5, Absolute Neuts (auto) 22.9 H, Absolute Lymphs (auto) 0.41 L, Nucleated RBC % 0, Differential Comment SCANNED, Diff Path Review February, Sodium 136, Potassium 4.5, Chloride 101, Carbon Dioxide 27.0, Anion Gap 8, BUN 29 H, Creatinine 1.33 H, Estim Creat Clear Calc 46.34, Est GFR (MDRD) Af Amer 67, Est GFR (MDRD) Non-Af 55 L, BUN/Creatinine Ratio 21.8 H, Glucose 179 H, Calcium 9.4, Total Bilirubin 2.40 H, AST 23, ALT 13 L, Alkaline Phosphatase 68, Total Protein 7.7, Albumin 3.8, Globulin 3.9, Albumin/Globulin Ratio 1.0, Lipase 15 12/13/23 14:57: Urine Color Yellow, Urine Clarity Clear, Urine pH 5.0, Ur Specific [place] 1.015, Urine Protein 30 H, Urine Glucose (UA) Normal, Urine Ketones 5 H, Urine Occult Blood 25 H, Urine Nitrite Positive H, Urine Bilirubin 1 H, Urine Urobilinogen 4 H, Ur Leukocyte Esterase 25 H, Urine RBC 0 SEEN, Urine WBC 0-5 SEEN, Ur Squamous Epith Cells 0 SEEN, Urine Bacteria 0 SEEN, Urine Mucus 0 SEEN Imaging Radiology Impression Abdomen/Pelvis CT 12/13/23 13:46 IMPRESSION: Marked degree of distention of the colon down to the region of the sigmoid colon. Sigmoid volvulus should be ruled out. 6.1 cm x 5 0.6 mL cyst in the upper midportion of the left kidney. N.B. : The above Results were Read Back by Brady Mackenzie MD to PANCHO Barker, and understanding confirmed on 12/13/2023 14:42:30 (ET). Electronically Signed: Brady Mackenzie MD at 14:43 EST , ADDENDUM: 12/13/23 1450 IMPRESSION: Marked degree of distention of the colon down to the region of the sigmoid colon. Sigmoid volvulus should be ruled out. 6.1 cm x 5 0.6 mL cyst in the upper midportion of the left kidney. N.B. : The above Results were Read Back by Brady Mackenzie MD to PANCHO Barker, and understanding confirmed on 12/13/2023 14:42:30 (ET). Electronically Signed: Brady Mackenzie MD at 14:43 EST , Assessment & Plan Assessment/Plan (1) Sigmoid volvulus: PLAN: Patient is a 78-year-old male, with past medical history of Parkinson's, who presents with a 17-hour history of acute onset abdominal pain and nausea/ vomiting. Diagnostic workup shows evidence of sigmoid volvulus. Patient's exam is remarkable for significant abdominal distention but he at this time does not show signs of peritonitis. Thus, I have asked gastroenterology to evaluate the patient emergently for consideration of endoscopic colonic decompression. Dr. Chen of gastroenterology has agreed and patient will be transferred from the e mergency department to the endoscopy suite for this procedure. Post procedurally we will plan to manage the patient expectantly. Emergency medicine has been asked to dose patient empirically with Zosyn. Medicine is consulted for comanagement/specifically assisting with Parkinson's management. Charges/Coding Visit Charges Inpatient E&M: 28177 Init Hosp L2
--- NOTE | 2023-12-13 16:02 | ED.RN ---
pharmacy called at 1600. informed that patient is on his way to OR. Zosyn to be sent to OR once prepared.
[2023-12-13] MEDS: Piperacil/Tazobactam 4.5 GM in 0.9% Normal Saline (100mL MB+) 100 ML IV (16:17)
[2023-12-13] MEDS: 0.9% Normal Saline (1000mL) 1,000 ML 15 ML IV (16:17)
--- NOTE | 2023-12-13 16:50 | RAD_ITS ---
STUDY: X-RAY - ABDOMEN/PELVIS REASON FOR EXAM: Male, 78 years old. COLONOSCOPY WITH DECOMPRESSION TUBE TECHNIQUE: Single AP view of the abdomen / pelvis. COMPARISON: None. FINDINGS: Fluoroscopy of the abdomen was utilized in the operating room during an endoscopic procedure with placement of a catheter. . RAD/Abdomen Single View IMPRESSION: Fluoroscopy during endoscopy and placement of catheter. Electronically Signed: Janes Sneed MD at 20:14 EST ,
--- NOTE | 2023-12-13 18:54 | OP.CCLET_ITS ---
12/13/2023 Sarika Montaño [address] [place] [address] Re : Colonoscopy procedure for Maynor Carver Dear Dr. Montaño This procedure was performed on Wednesday, December 13, 2023. My impressions and recommendations are as follows: Impressions : - Preparation of the colon was poor. - Diverticulosis in the recto-sigmoid colon and in the sigmoid colon. - Volvulus. Partial decompression achieved. - No specimens collected. Recommendations : - Return patient to ICU for ongoing care. - No repeat colonoscopy. - Continue present medications. My findings are described in the full procedure note, which is enclosed. If I can be of further assistance, please feel free to contact me at . Sincerely, Noman Chen, 12/13/2023 6:53:33 PM This report has been signed electronically.
--- NOTE | 2023-12-13 18:54 | OP.COLON_ITS ---
Patient Name: Maynor Carver Procedure Date: 12/13/2023 3:59 PM Date of : 1945 Age: 78 Procedure: Colonoscopy Indications: Abnormal barium enema, For therapy of volvulus Providers: Noman Chen DO Medicines: Monitored Anesthesia Care Patient Profile: This is a 78 year old male. Refer to note in patient chart for documentation of history and physical. Last Colonoscopy: date unknown. Unable to locate last colonoscopy report. Complications: No immediate complications. Procedure: Pre-Anesthesia Assessment: - Prior to the procedure, a History and Physical was performed, and patient medications and allergies were reviewed. The patient is competent. The risks and benefits of the procedure and the sedation options and risks were discussed with the patient. All questions were answered and informed consent was obtained. Patient identification and proposed procedure were verified by the physician in the pre-procedure area. Mental Status Examination: alert and oriented. Airway Examination: normal oropharyngeal airway and neck mobility. Respiratory Examination: clear to auscultation. CV Examination: normal. Prophylactic Antibiotics: The patient does not require prophylactic antibiotics. Prior Anticoagulants: The patient has taken no anticoagulant or antiplatelet agents. ASA Grade Assessment: IV - A patient with severe systemic disease that is a constant threat to life. After reviewing the risks and benefits, the patient was deemed in satisfactory condition to undergo the procedure. The anesthesia plan was to use monitored anesthesia care (MAC). Immediately prior to administration of medications, the patient was re-assessed for adequacy to receive sedatives. The heart rate, respiratory rate, oxygen saturations, blood pressure, adequacy of pulmonary ventilation, and response to care were monitored throughout the procedure. The physical status of the patient was re-assessed after the procedure. After I obtained informed consent, the scope was passed under direct vision. Throughout the procedure, the patient's blood pressure, pulse, and oxygen saturations were monitored continuously. The Colonoscope was introduced through the anus and advanced to the transverse colon. The colonoscopy was performed without difficulty. The patient tolerated the procedure well. The quality of the bowel preparation was poor. No bowel preparation was given prior to the procedure. Scope In: 4:59:26 PM Scope Out: 6:33:16 PM Total Procedure Duration Time 1 hour 33 minutes 50 seconds Findings: The perianal and digital rectal examinations were normal. Multiple diverticula were found in the recto-sigmoid colon and sigmoid colon. A volvulus with apparent segmental necrosis was found in the sigmoid colon. Decompression of the volvulus was attempted, and partial decompression was achieved. Following the maneuver, a tube was placed to maintain the decompression. Estimated blood loss was minimal. Impression: - Preparation of the colon was poor. - Diverticulosis in the recto-sigmoid colon and in the sigmoid colon. - Volvulus. Partial decompression achieved. - No specimens collected. Recommendation: - Return patient to ICU for ongoing care. - No repeat colonoscopy. - Continue present medications. Procedure Code(s): --- Professional --- 49841, 52, Colonoscopy, flexible; with decompression (for pathologic distention) (eg, volvulus, megacolon), including placement of decompression tube, when performed CPT copyright 2021 [employer]. All rights reserved. The codes documented in this report are preliminary and upon box feeder review may be revised to meet current compliance requirements. Noman Chen DO 12/13/2023 6:53:33 PM This report has been signed electronically. Number of Addenda: 0 Note Initiated On: 12/13/2023 3:59 PM
--- NOTE | 2023-12-13 19:00 | RAD_ITS ---
STUDY: X-RAY - ABDOMEN/PELVIS REASON FOR EXAM: Male, 78 years old. f/u NG tube TECHNIQUE: Single AP view of the abdomen / pelvis. COMPARISON: 220 01/11/1855 FINDINGS: Interval advancement of the nasogastric tube with tip left upper quadrant likely in the body the stomach. There is a paralytic ileus of the small intestine with mild gaseous distention. The visualized liver, spleen and kidneys are grossly normal in size and morphology. Normal soft tissue structures. Normal visualized osseous structures. RAD/Abdomen Single View (Portable) IMPRESSION: 1. Interval advancement of nasogastric tube with the tip in the left upper quadrant likely in the body the stomach. 2. Suspect adynamic ileus. Electronically Signed: Janes Sneed MD at 20:18 EST ,
--- NOTE | 2023-12-13 19:00 | RAD_ITS ---
STUDY: X-RAY - ABDOMEN/PELVIS REASON FOR EXAM: Male, 78 years old. NG TUBE TECHNIQUE: Single AP view of the abdomen / pelvis. COMPARISON: None. FINDINGS: Nasogastric tube with the tip in the midline likely in the distal esophagus. There is a paralytic ileus of the small intestine with mild gaseous distention. The visualized liver, spleen and kidneys are grossly normal in size and morphology. Normal soft tissue structures. Normal visualized osseous structures. RAD/Abdomen Single View IMPRESSION: 1. Nasogastric tube with the tip in the midline likely in the distal esophagus. 2. Suspect adynamic ileus. Electronically Signed: Janes Sneed MD at 20:19 EST ,
--- NOTE | 2023-12-13 20:07 | CON.PCM.HO_ITS ---
Assessment & Plan Assessment/Plan (1) Sigmoid volvulus: PLAN: Plan The patient is a 78 y/o M w/ PMHx: CKD stage II per GFR trending, Parkinson's disease otherwise healthy per himself and daughter report who presents to the [facility] ED on 12/13/23 with history of onset generalized abdominal discomfort with nausea and emesis starting during the evening with last notable intake [employer] the evening prior with chicken and coleslaw with onset around 10 PM of lower and periumbilical abdominal cramping noted to be intermittent with several episodes of nausea and emesis with emesis noted to be dark in color but not coffee-ground in appearance with no fevers or chills and last bowel movement the day prior but given ongoing symptoms prompted eventual ED evaluation. #1. Abdominal pain, nausea, emesis w/ concern for volvulus with associated Leukocytosis and Lactic acidosis: Patient admitted to the ICU following endosco pic suite colonoscopy with attempted decompression per surgery and GI, will maintain on IVFs, continue NGT to suction, strict I&Os, IV pain/anti-emetics PRN, serial KUB as needed to montior bowel function per surgery discretion, PPI IV, maintained NPO, maintained on IV zosyn, ICU consultation per Surgery primary service discretion. #2. MANPREET on Chronic Kidney Disease Stage II per GFR trending: Likely secondary to acute presentation #1, admission BUN/Cr 29/1.33, baseline renal function primarily 0.8-1.0, most recently 12/04/2023 creatinine 0.83, continue judicious hydration, repeat BMP in AM. #3. Hyperglycemia: Possibly stress response, admission glucose 179, hemoglobin C will be obtained to be cautious. #4. Parkinson's disease: Unless surgery opposed may continued oral PD medications with temporary clamping of NG tube. #5. DVT Prophylaxis: Recommend at least SCDs, chemoprophylaxis per Surgery discretion. #6. CODE status: Patient HCPOA is his daughter who is present and living will is currently in place. Discussed CODE status at length including difference between FULL code, DNR-CCA and DNR-CC status. Following discussions about the differences in these status, requested Full Code status. Advanced Care Planning Face to Face Time: 16 minutes. HPI Consult Data Date of Consult: 12/14/23 HPI Narrative Reason for Consultation: Medical consultation HPI Narrative: The patient is a 78 y/o M w/ PMHx: CKD stage II per GFR trending, Parkinson's disease otherwise healthy per himself and daughter report who presents to the [facility] ED on 12/13/23 with history of onset generalized abdominal discomfort with nausea and emesis starting during the evening with last notable intake [employer] the evening prior with chicken and coleslaw with onset around 10 PM of lower and periumbilical abdominal cramping noted to be intermittent with several episodes of nausea and emesis with emesis noted to be dark in color but not coffee-ground in appearance with no fevers or chills and last bowel movement the day prior but given ongoing symptoms prompted eventual ED evaluation. Workup in the ED had included T97.8, heart rate 82, BP 154/84, respiratory rate 18, 98% on room air, CBC with WBC 24.8, hemoglobin 16.2, platelet 257 with left shift and lymphopenia, CMP with BUN/creatinine 29/1.33, glucose 179, lactic acid 3.0, T. bili 2.40 otherwise hepatic profile not marked appearing, lipase 15, urinalysis with specific gravity 1.015, protein 30, ketone 5, occult blood 25, positive nitrite, bilirubin 1, urobilinogen 4, leukocyte esterase 25, urine WBC 0-5 with no urine bacteria, urine culture pending per ED, CT abdomen and pelvis with marked degree of distention of the colon down to the region of the sigmoid colon with concern for sigmoid volvulus, noted cyst in the upper portion of the left kidney. ED discussed patient with general surgery Dr. Kirkland who evaluated the patient with decision to transition to OR given concerns for sigmoid volvulus with GI involvement with transition for endoscopic intervention and requested ED initiation of empiric Zosyn. Patient underwent attempted colonoscopy with unfortunately as expected poor colon prep, evidence of diverticulosis in the rectosigmoid colon and the sigmoid colon with evidence of volvulus with partial decompression achieved with rectal tube and NG tube placed for continued decompression with surgery concern for poorly appearing mucosa at that region with concern for ischemia. Given patient age MAC anesthesia was used only. In the ED patient had been administered 1 L normal saline, morphine 4 mg IV x 1, Zofran 4 mg IV x 1 in addition to IV Zosyn. [facility] Medical History (Updated 12/14/23 @ 00:[address] Kelley Shankar MD) CKD (chronic kidney disease), stage II Parkinson disease Home Medications amantadine HCl 100 mg capsule 100 mg PO DAILY hill 12/04/23 [History Last Taken Unknown] carbidopa 25 mg-levodopa 100 mg tablet 1.5 tab PO DAILY 12/04/23 [History Last Taken Unknown] carbidopa ER 25 mg-levodopa 100 mg tablet,extended release 1 tab PO QHS hill 12/04/23 [History Last Taken Unknown] carbidopa 25 mg-levodopa 100 mg tablet 1 tab PO BID 12/13/23 [History Last Taken Unknown] Allergy/AdvReac Type Severity Reaction Status Date / Time No Known Allergies Allergy Verified 12/13/23 11:57 Family History (Updated 12/14/23 @ 00:[address] Kelley Shankar MD) Mother Heart disease Father Heart disease Surgical History (Updated 12/14/23 @ 00:[address] Kelley Shankar MD) History of tonsillectomy and adenoidectomy Surgical History no surgical history Social History (Updated 12/14/23 @ 01:[address] Kelley Shankar MD) household members: none Smoking Status: Never smoker alcohol intake: never substance use type: does not use ROS ROS Narrative Admission Review of Systems: CONSTITUTIONAL: No weight loss, fever, chills, + weakness or fatigue. HEENT: Eyes: No visual loss, blurred vision, double vision or yellow sclerae. Ears, Nose, Throat: No hearing loss, sneezing, congestion, runny nose or sore throat. SKIN: No rash or itching, lesions, wounds. CARDIOVASCULAR: No chest pain, chest pressure or chest discomfort, palpitations, edema, orthopnea, syncopal events. RESPIRATORY: No shortness of breath, cough or sputum, wheezing, hemoptysis. GASTROINTESTINAL: + anorexia, nausea, vomiting, abdominal pain. No diarrhea, melena, BRBPR. GENITOURINARY: No dysuria, frequency, urgency or retention. NEUROLOGICAL: + Parkinson's disease with associated gait disturbance, tremors. No headache, dizziness, syncope, paralysis, ataxia, numbness or tingling in the extremities, focal weakness, change in bowel or bladder control, seizure. MUSCULOSKELETAL: + muscle, back pain, joint pain or stiffness. HEMATOLOGIC: No anemia, bleeding or bruising. LYMPHATICS: No enlarged nodes. No history of splenectomy. PSYCHIATRIC: No history of depression or anxiety. ENDOCRINOLOGIC: No reports of sweating, cold or heat intolerance. No polyuria or polydipsia. ALLERGIES: No history of asthma, hives, eczema or rhinitis. Physical Exam Narrative Physical Examination: General: Awake, alert, oriented x 3 and cooperative, seated upright in ICU bed in no apparent distress, notes abdominal discomfort improved since initial ED presentation. Skin: Normal color, normal turgor, no icterus, no cyanosis except occasional staged ecchymoses. HEENT: AT/NC, EOMI, PERRLA, dry MM, NG tube in place, no carotid bruits or JVD noted. Lungs: Mildly diminished, greater bases, proper effort, no rales, ronchi or wheezing. Heart: Regular rate and rhythm; no gallop, rub audible. Abdomen: Soft, mild generalized discomfort but no rebound or guarding any notes it is better than initial ED arrival, no marked distention at this time, mildly hypoactive bowel sounds, no obvious HSM. Extremities: No cyanosis, clubbing, or edema. Neurological: Patient awake, alert, oriented as noted, cognitive function intact; pupils equally reactive to light and accommodation, cranial nerves grossly normal, moving all 4 extremities, no focal deficits, mild upper e xtremity pill-rolling tremor noted, right extremity greater than left, strength severely globally decreased secondary to acute presentation, compounded by underlying comorbidities. Psychiatric: Affect appears fatigued, no acute evidence of depressive or anxiety feelings. Lab / Micro Data 12/13/23 12:40 12/13/23 12:40 Labs: Laboratory Results - last 24 hr 12/13/23 12:40: WBC 24.8 H, RBC 4.96, Hgb 16.2, Hct 46.8, MCV 94.4 H, MCH 32.7 H , MCHC 34.6, RDW Std Deviation 49.6 H, RDW Coeff of Ann 14.5, Plt Count 257, MPV 11.0, Immature Gran % (Auto) 1.300 H, Neut % (Auto) 92.3 H, Lymph % (Auto) 1.7 L , [place] % (Auto) 4.2, Eos % (Auto) 0.0, Baso % (Auto) 0.5, Absolute Neuts (auto) 22.9 H, Absolute Lymphs (auto) 0.41 L, Nucleated RBC % 0, Differential Comment SCANNED, Diff Path Review February, Sodium 136, Potassium 4.5, Chloride 101, Carbon Dioxide 27.0, Anion Gap 8, BUN 29 H, Creatinine 1.33 H, Estim Creat Clear Calc 46.34, Est GFR (MDRD) Af Amer 67, Est GFR (MDRD) Non-Af 55 L, BUN/Creatinine Ratio 21.8 H, Glucose 179 H, Calcium 9.4, Total Bilirubin 2.40 H, AST 23, ALT 13 L, Alkaline Phosphatase 68, Total Protein 7.7, Albumin 3.8, Globulin 3.9, Albumin/Globulin Ratio 1.0, Lipase 15 12/13/23 14:57: Urine Color Yellow, Urine Clarity Clear, Urine pH 5.0, Ur Specific [place] 1.015, Urine Protein 30 H, Urine Glucose (UA) Normal, Urine Ketones 5 H, Urine Occult Blood 25 H, Urine Nitrite Positive H, Urine Bilirubin 1 H, Urine Urobilinogen 4 H, Ur Leukocyte Esterase 25 H, Urine RBC 0 SEEN, Urine WBC 0-5 SEEN, Ur Squamous Epith Cells 0 SEEN, Urine Bacteria 0 SEEN, Urine Mucus 0 SEEN Imaging Radiology Impression Abdomen/Pelvis CT 12/13/23 13:46 IMPRESSION: Marked degree of distention of the colon down to the region of the sigmoid colon. Sigmoid volvulus should be ruled out. 6.1 cm x 5 0.6 mL cyst in the upper midportion of the left kidney. N.B. : The above Results were Read Back by Brady Mackenzie MD to PANCHO Barker, and understanding confirmed on 12/13/2023 14:42:30 (ET). Electronically Signed: Brady Mackenzie MD at 14:43 EST , ADDENDUM: 12/13/23 2466 IMPRESSION: Marked degree of distention of the colon down to the region of the sigmoid colon. Sigmoid volvulus should be ruled out. 6.1 cm x 5 0.6 mL cyst in the upper midportion of the left kidney. N.B. : The above Results were Read Back by Brady Mackenzie MD to PANCHO Barker, and understanding confirmed on 12/13/2023 14:42:30 (ET). Electronically Signed: Brady Mackenzie MD at 14:43 EST , Charges/Coding Visit Charges Office Visits / Consults: 33655 IP Consult L4 Procedures Hospitalists Procedures: 77946 Advncd Care Plan 30 Min
[2023-12-13] MEDS: Lactated Ringers 1,000 ML 125 ML IV (21:00)
[2023-12-13] MEDS: Azithromycin 500 MG in Dextrose 5%-Water (250mL Bag) 250 ML 250 MG IV (22:23)
[2023-12-13] MEDS: CARBIDOPA/LEVODOPA CR 50/200 Tablet PO (22:23)
[2023-12-13] MEDS: Piperacil/Tazobactam 3.375 GM in 0.9% Normal Saline (50mL MB+) 50 ML IV (22:24)
[2023-12-14] VITALS (24 sets, daily range): BP systolic 110–166; BP diastolic 67–86; PULSE 80–104; RESP 15–22; TEMP 36.6–38.2; O2SAT 89–100; BMI 26.7
[2023-12-14 00:27] LABS: Reflex Lactate? Y
[2023-12-14 01:22] LABS: Lactic Acid 2.5 mmol/L (0.4-1.9)
[2023-12-14] MEDS: Pantoprazole Sodium 40 MG in 0.9% Normal Saline (100mL MB+) 100 ML 330 MG IV ×2 (01:50→08:07)
[2023-12-14] MEDS: 0.9% Saline Lock 10 ML Syringe IV (01:53)
[2023-12-14] MEDS: Lactated Ringers 1,000 ML 125 ML IV ×3 (04:50→21:51)
[2023-12-14 05:07] LABS: Absolute Neutrophil Count 21.4 X10^3/uL (2.0-7.7); Basophil# 0.15 X10^3/uL; Basophil% 0.6 % (0-1); Eosinophil# 0.19 X10^3/uL; Eosinophils% 0.8 % (0-5); Hematocrit 41.6 % (40-54); Hemoglobin 14.1 g/dL (13.0-16.5); Lymphocyte % 2.5 % (19-41); Mean Corp Hgb Conc 33.9 g/dL (32-36); Mean Corpuscular Hgb 31.5 pg (27.0-32.0); Mean Corpuscular Volume 92.9 fL (80-94); Mean Platelet Vol. 10.8 fl (6.2-12.0); NRBC Flagged by Analyzer 0 % (0-5); Neutrophil # 21.37 X10^3/uL (2.7-7.7); Neutrophil % 87.5 % (47-70); POSITIVE DIFFERENTIAL YES; Platelet Count 214 K/mm3 (150-450); RBC Distribution Width CV 14.6 % (11.6-14.6); RBC Distribution Width SD 50.2 fl (35.1-43.9); Red Blood Count 4.48 M/mm3 (4.6-6.2); White Blood Count 24.4 K/mm3 (4.4-11.0)
[2023-12-14 05:14] LABS: Differential Indicated SCAN CRITERIA MET
--- NOTE | 2023-12-14 05:19 | NURSING ---
Patient has only been peeing around 100 mL at a time. After he urinated, I bladder scanned patient to make sure he was not retaining.I bladder scanned him for only 16-23 mL.
[2023-12-14 05:26] LABS: AST(SGOT) 39 U/L (15-37); Alanine Aminotransfer ALT/SGPT 11 U/L (16-61); Albumin, Serum 2.9 g/dL (3.2-5.0); Alkaline Phosphatase 55 U/L (45-117); Anion Gap 5 (5-15); BUN 30 mg/dL (7-18); Chloride 102 mmol/L (98-107); Creatinine, Serum 1.11 mg/dL (0.70-1.30); EST Glomerular Filtration Rate 68 mL/min (>60); Est Glom Filt Rate - Afr Amer 83 mL/min (>60); Estimated Creatinine Clearance 57.55 ml/min; Glucose 130 mg/dL (74-106); Phosphorus 3.4 mg/dL (2.5-4.9); Potassium 3.8 mmol/L (3.5-5.1); Protein, Total 5.9 g/dL (6.4-8.2); Sodium Level 134 mmol/L (136-145)
[2023-12-14] MEDS: Piperacil/Tazobactam 3.375 GM in 0.9% Normal Saline (50mL MB+) 50 ML IV ×3 (05:55→21:57)
--- NOTE | 2023-12-14 06:10 | RAD_ITS ---
INDICATION: Abd distention EXAMINATION/TECHNIQUE: X-RAY - XR Abdomen 1 View COMPARISON: Prior study dated: 12/13/2023 FINDINGS: BOWEL GAS PATTERN: Nasogastric tube extends to the region of the stomach. Nonspecific gaseous distended small bowel loops and colon improved since previous exam. No bowel or stomach distention. FREE AIR: Not assessed on a single supine view. ORGANOMEGALY: Not seen. CALCIFICATIONS: No abnormal calcifications observed. LOWER CHEST: Not included on this examination. BONES AND SOFT TISSUES: No acute pathology. RAD/Abdomen Single View (Portable) IMPRESSION: 1. Nasogastric tube with the tip in the region of the stomach. 2. Slightly improved gas pattern. Electronically Signed: Elder Taveras MD at 9:43 EST ,
[2023-12-14 07:33] LABS: Reactive Lymphocyte 1+
[2023-12-14 07:35] LABS: Hemoglobin A1c 5.5 % (3.8-5.6)
--- NOTE | 2023-12-14 08:24 | PN.HOSP_ITS ---
Reason for Visit Reason for Visit: Diagnoses Volvulus (12/13/23) Objective Data Objective Data Vital Signs: Vital Signs Temp Pulse Resp BP Pulse Ox O2 Del Method O2 Flow Rate 98.1 F 90 18 136/71 H 98 Nasal Cannula 2 12/14/23 06:00 12/14/23 06:00 12/14/23 06:00 12/14/23 06:00 12/14/23 06:00 12/14/23 06:00 12/14/23 06:00 Oxygen Flow Rate (L/min) 2 Oxygen Delivery Method Nasal Cannula Weight: 186 lb 4.65 oz Body Mass Index (BMI) 26.7 Intake & Output: Intake and Output for Last 24 Hours 12/12/23 12/13/23 12/14/23 23:59 23:59 23:59 Intake Total 1355 / 1375 1159.17 / 1159.17 Output Total 150 / 250 350 / 350 Balance 1205 / 1125 809.17 / 809.17 Lab / Micro Data 12/14/23 05:00 12/14/23 05:00 Labs: Laboratory Results - last 24 hr 12/13/23 12:40: WBC 24.8 H, RBC 4.96, Hgb 16.2, Hct 46.8, MCV 94.4 H, MCH 32.7 H , MCHC 34.6, RDW Std Deviation 49.6 H, RDW Coeff of Ann 14.5, Plt Count 257, MPV 11.0, Immature Gran % (Auto) 1.300 H, Neut % (Auto) 92.3 H, Lymph % (Auto) 1.7 L , [place] % (Auto) 4.2, Eos % (Auto) 0.0, Baso % (Auto) 0.5, Absolute Neuts (auto) 22.9 H, Absolute Lymphs (auto) 0.41 L, Nucleated RBC % 0, Differential Comment SCANNED, Diff Path Review February foll, Sodium 136, Potassium 4.5, Chloride 101, Car bon Dioxide 27.0, Anion Gap 8, BUN 29 H, Creatinine 1.33 H, Estim Creat Clear Calc 46.34, Est GFR (MDRD) Af Amer 67, Est GFR (MDRD) Non-Af 55 L, BUN/Creatinine Ratio 21.8 H, Glucose 179 H, Calcium 9.4, Total Bilirubin 2.40 H, AST 23, ALT 13 L, Alkaline Phosphatase 68, Total Protein 7.7, Albumin 3.8, Globulin 3.9, Albumin/Globulin Ratio 1.0, Lipase 15 12/13/23 14:57: Urine Color Yellow, Urine Clarity Clear, Urine pH 5.0, Ur Specific [place] 1.015, Urine Protein 30 H, Urine Glucose (UA) Normal, Urine Ketones 5 H, Urine Occult Blood 25 H, Urine Nitrite Positive H, Urine Bilirubin 1 H, Urine Urobilinogen 4 H, Ur Leukocyte Esterase 25 H, Urine RBC 0 SEEN, Urine WBC 0-5 SEEN, Ur Squamous Epith Cells 0 SEEN, Urine Bacteria 0 SEEN, Urine Mucus 0 SEEN 12/13/23 20:15: Lactic Acid 3.0 H* 12/14/23 00:50: Lactic Acid Cancelled 12/14/23 00:50: Lactic Acid 2.5 H* 12/14/23 05:00: WBC 24.4 H, RBC 4.48 L, Hgb 14.1, Hct 41.6, MCV 92.9, MCH 31.5, MCHC 33.9, RDW Std Deviation 50.2 H, RDW Coeff of Ann 14.6, Plt Count 214, MPV 10.8, Immature Gran % (Auto) 1.600 H, Neut % (Auto) 87.5 H, Lymph % (Auto) 2.5 L , [place] % (Auto) 7.0, Eos % (Auto) 0.8, Baso % (Auto) 0.6, Absolute Neuts (auto) 21.4 H, Absolute Lymphs (auto) 0.60 L, Nucleated RBC % 0, Diff Path Review February, Reactive Lymphocytes 1+, Sodium 134 L, Potassium 3.8, Chloride 102, Carbon Dioxide 27.0, Anion Gap 5, BUN 30 H, Creatinine 1.11, Estim Creat Clear Calc 57.55, Est GFR (MDRD) Af Amer 83, Est GFR (MDRD) Non-Af 68, BUN/Creatinine Ratio 27.0 H, Glucose 130 H, Hemoglobin A1c 5.5, Calcium 8.0 L, Phosphorus 3.4, Magnesium 2.0, Total Bilirubin 3.10 H, AST 39 H, ALT 11 L, Alkaline Phosphatase 55, Total Protein 5.9 L, Albumin 2.9 L, Globulin 3.0, Albumin/Globulin Ratio 1.0 Radiography Diagnostic Testing: Radiology Impression Abdomen/Pelvis CT 12/13/23 13:46 IMPRESSION: Marked degree of distention of the colon down to the region of the sigmoid colon. Sigmoid volvulus should be ruled out. 6.1 cm x 5 0.6 mL cyst in the upper midportion of the left kidney. N.B. : The above Results were Read Back by Brady Mackenzie MD to PANCHO Barker, and understanding confirmed on 12/13/2023 14:42:30 (ET). Electronically Signed: Brady Mackenzie MD at 14:43 EST , ADDENDUM: 12/13/23 1450 IMPRESSION: Marked degree of distention of the colon down to the region of the sigmoid colon. Sigmoid volvulus should be ruled out. 6.1 cm x 5 0.6 mL cyst in the upper midportion of the left kidney. N.B. : The above Results were Read Back by Brady Mackenzie MD to PANCHO Barker, and understanding confirmed on 12/13/2023 14:42:30 (ET). Electronically Signed: Brady Mackenzie MD at 14:43 EST , KUB X-Ray 12/13/23 16:50 IMPRESSION: Fluoroscopy during endoscopy and placement of catheter. Electronically Signed: Janes Sneed MD at 20:14 EST , [facility] X-Ray 12/13/23 19:00 IMPRESSION: 1. Interval advancement of nasogastric tube with the tip in the left upper quadrant likely in the body the stomach. 2. Suspect adynamic ileus. Electronically Signed: Janes Sened MD at 20:18 EST , [facility] X-Ray 12/13/23 19:00 IMPRESSION: 1. Nasogastric tube with the tip in the midline likely in the distal esophagus. 2. Suspect adynamic ileus. Electronically Signed: Janes Sneed MD at 20:19 EST Reading Location ID and State: [id number] / [place] Tel , Service support , Physical Exam Narrative Seen and examined Along with the surgeon and patient's RN present in the room. Patient has NG tube and rectal tube. Afebrile. No significant spontaneous urine output, it was dark and concentrated and patient is going to have a Ayala catheterization. Patient states his abdominal pain is little better. Passing some gas but no BM for about 2 days. Was admitted with sudden onset abdominal pain, nausea vomiting started 10 PM day before admission. Patient denies any prior history of bowel obstruction or abdominal pain like this. monitoring manager shows sinus rhythm with PVCs at 87 bpm. Physical exam: General: Alert, Oriented x3, Cooperative but fatigued and weak HEENT: Atraumatic, PERRLA, EOMI, Normocephalic Oral: Oral mucosa dry. NG tube present. Dark black color aspirate. Neck: Supple, No JVD, Negative Carotid Bruits Chest wall/Lungs: Air entry diminished in bilateral lung bases. No crepitation/rhonchi Cardiovascular: Regular rate, Regular Rhythm, Normal S1, Normal S2, No M/G/R. Abdomen: Bowel Sounds Present, Soft, Non Tender, Non-Distended : Oliguria. No dysuria. No renal angle tenderness. No suprapubic tenderness. Extremities: No edema, Capillary Refill Less than 3 Seconds Skin: No rashes, No breakdown Musculoskeletal: No Tenderness to Palpation of Joints or Extremities. Mild muscle rigidity. History of Parkinson disease Neurological: Cranial nerves II-XII grossly intact, DTR 2+/4. No acute focal neurological deficit. Psych/Mental Status: Flat affect. Assessment & Plan Assessment/Plan (1) Sigmoid volvulus: PLAN: Plan The patient is a 78 y/o M was admitted with sudden onset of Was admitted with sudden onset abdominal pain periumbilical and hypogastric in location, nausea vomiting, dark in color started 10 PM day before admission. No fever. Patient denies any prior history of bowel obstruction or abdominal pain like this. #1. Sigmoid volvulus, complicated with total colon distention, ileus and lactic acidosis with suspected colonic infection/colitis: Patient admitted under surgical service to the ICU after colonoscopy. Abdomen pelvis/CT was done prior to that. Shows mild distention of colon down to the region of sigmoid colon, up to 10 cm. Patient reported some passage of flatus. Has a rectal tube and NG tube. IV fluid 500 mL Ringer lactate ordered as patient did not had significant urine output. Heart rate and blood pressure are controlled. No fever. Discussed with the surgeon and plan to maintain on his current conservative measures to avoid total colectomy with high risk of surgery. Patient on IV PPI. Patient on IV Zosyn. Mild improvement in leukocytosis. Platelet count 214,000. Patient had colonoscopy on 12/13/2021 4. Sigmoid volvulus was found though colon prep was poor. Diverticulosis in RS colon and sigmoid colon. Partial decompression of volvulus achieved. No repeat colonoscopy recommended. Perioperative risk evaluation: Patient denies prior chronic cardiac or pulmonary disease including [place], cardiac stent, angina, CHF or A-fib or valvular heart disease. Denies COPD. No prior history of smoking or nicotine use or chronic alcohol use. Patient has Parkinson disease but baseline musculoskeletal function unclear as patient is very sick now. Overall, patient is high risk. Incentive spirometry. #2. MANPREET on Chronic Kidney Disease Stage II : Most likely prerenal due to s igmoid volvulus/ileus and third space: Ayala catheterization. Strict intake and output. Admission BUN/creatinine 29/1.33, today BUN/creatinine 30/1.11 BUN/creatinine ratio is 27. UA shows positive nitrite, ketones 5, bilirubin 1 LE 25 WBC 0-5 cells, bacteria 0. Patient on IV antibiotics. 3. Mild hyperbilirubinemia with normal transaminases, hyperbilirubinemia: Prob ably due to acute event of sigmoid volvulus ileus and possible secondary colon infection. Admission glucose 179. A1c 5.5 probably stress response hyperglycemia. Diabetes mellitus or prediabetes ruled out. #4. Parkinson's disease: hold oral medications in view of ileus with impaired bowel absorption #5. DVT Prophylaxis: Recommend at least SCDs, chemoprophylaxis per Surgery discretion. #6. CODE status: Patient BRIA is his daughter who is present and living will is currently in place. Discussed CODE status at length including difference between FULL code, DNR-CCA and DNR-CC status. Following discussions about the differences in these status, requested Full Code status. [facility] Results 12/13/23 12:40: WBC 24.8 H, RBC 4.96, Hgb 16.2, Hct 46.8, MCV 94.4 H, MCH 32.7 H , MCHC 34.6, RDW Std Deviation 49.6 H, RDW Coeff of Ann 14.5, Plt Count 257, MPV 11.0, Immature Gran % (Auto) 1.300 H, Neut % (Auto) 92.3 H, Lymph % (Auto) 1.7 L , [place] % (Auto) 4.2, Eos % (Auto) 0.0, Baso % (Auto) 0.5, Absolute Neuts (auto) 22.9 H, Absolute Lymphs (auto) 0.41 L, Nucleated RBC % 0, Differential Comment SCANNED, Diff Path Review February, Sodium 136, Potassium 4.5, Chloride 101, Carbon Dioxide 27.0, Anion Gap 8, BUN 29 H, Creatinine 1.33 H, Estim Creat Clear Calc 46.34, Est GFR (MDRD) Af Amer 67, Est GFR (MDRD) Non-Af 55 L, BUN/Creatinine Ratio 21.8 H, Glucose 179 H, Calcium 9.4, Total Bilirubin 2.40 H, AST 23, ALT 13 L, Alkaline Phosphatase 68, Total Protein 7.7, Albumin 3.8, Globulin 3.9, Albumin/Globulin Ratio 1.0, Lipase 15 12/13/23 14:57: Urine Color Yellow, Urine Clarity Clear, Urine pH 5.0, Ur Specific [place] 1.015, Urine Protein 30 H, Urine Glucose (UA) Normal, Urine Ketones 5 H, Urine Occult Blood 25 H, Urine Nitrite Positive H, Urine Bilirubin 1 H, Urine Urobilinogen 4 H, Ur Leukocyte Esterase 25 H, Urine RBC 0 SEEN, Urine WBC 0-5 SEEN, Ur Squamous Epith Cells 0 SEEN, Urine Bacteria 0 SEEN, Urine Mucus 0 SEEN 12/13/23 20:15: Lactic Acid 3.0 H* 12/14/23 00:50: Lactic Acid 2.5 H* 12/14/23 05:00: WBC 24.4 H, RBC 4.48 L, Hgb 14.1, Hct 41.6, MCV 92.9, MCH 31.5, MCHC 33.9, RDW Std Deviation 50.2 H, RDW Coeff of Ann 14.6, Plt Count 214, MPV 10.8, Immature Gran % (Auto) 1.600 H, Neut % (Auto) 87.5 H, Lymph % (Auto) 2.5 L , [place] % (Auto) 7.0, Eos % (Auto) 0.8, Baso % (Auto) 0.6, Absolute Neuts (auto) 21.4 H, Absolute Lymphs (auto) 0.60 L, Nucleated RBC % 0, Diff Path Review February, Reactive Lymphocytes 1+ Sodium 134 L, Potassium 3.8, Chloride 102, Carbon Dioxide 27.0, Anion Gap 5, BUN 30 H, Creatinine 1.11, Estim Creat Clear Calc 57.55, Est GFR (MDRD) Af Amer 83, Est GFR (MDRD) Non-Af 68, BUN/Creatinine Ratio 27.0 H, Glucose 130 H, Hemoglobin A1c 5.5, Calcium 8.0 L, Phosphorus 3.4, Magnesium 2.0, Total Bilirubin 3.10 H, AST 39 H, ALT 11 L, Alkaline Phosphatase 55, Total Protein 5.9 L, Albumin 2.9 L, Globulin 3.0, Albumin/Globulin Ratio 1.0 Charges/Coding Visit Charges Inpatient E&M: 79905 Subs Hosp L3
--- NOTE | 2023-12-14 08:30 | PN.SURG_ITS ---
Subjective Subjective Patient seen and examined during AM rounds. He is found resting in bed. He states that he has a sore throat and a dry mouth but overall his abdominal pain is improved. He confirms that he has been passing gas overnight. Nursing shares that her primary concern is patient's low urine output and they are prepared to place a Ayala catheter this morning. Objective Data Objective Data Vital Signs: Vital Signs Temp Pulse Resp BP Pulse Ox O2 Del Method O2 Flow Rate 98.1 F 90 18 136/71 H 98 Nasal Cannula 2 12/14/23 06:00 12/14/23 06:00 12/14/23 06:00 12/14/23 06:00 12/14/23 06:00 12/14/23 06:00 12/14/23 06:00 Oxygen Flow Rate (L/min) 2 Oxygen Delivery Method Nasal Cannula Weight: 186 lb 4.65 oz Body Mass Index (BMI) 26.7 Intake & Output: Intake and Output for Last 24 Hours 12/12/23 12/13/23 12/14/23 23:59 23:59 23:59 Intake Total 1355 / 1375 1159.17 / 1159.17 Output Total 150 / 250 350 / 350 Balance 1205 / 1125 809.17 / 809.17 Lab / Micro Data 12/14/23 05:00 12/14/23 05:00 Labs: Laboratory Results - last 24 hr 12/13/23 12:40: WBC 24.8 H, RBC 4.96, Hgb 16.2, Hct 46.8, MCV 94.4 H, MCH 32.7 H , MCHC 34.6, RDW Std Deviation 49.6 H, RDW Coeff of Ann 14.5, Plt Count 257, MPV 11.0, Immature Gran % (Auto) 1.300 H, Neut % (Auto) 92.3 H, Lymph % (Auto) 1.7 L , [place] % (Auto) 4.2, Eos % (Auto) 0.0, Baso % (Auto) 0.5, Absolute Neuts (auto) 22.9 H, Absolute Lymphs (auto) 0.41 L, Nucleated RBC % 0, Differential Comment SCANNED, Diff Path Review February, Sodium 136, Potassium 4.5, Chloride 101, Carbon Dioxide 27.0, Anion Gap 8, BUN 29 H, Creatinine 1.33 H, Estim Creat Clear Calc 46.34, Est GFR (MDRD) Af Amer 67, Est GFR (MDRD) Non-Af 55 L, BUN/Creatinine Ratio 21.8 H, Glucose 179 H, Calcium 9.4, Total Bilirubin 2.40 H, AST 23, ALT 13 L, Alkaline Phosphatase 68, Total Protein 7.7, Albumin 3.8, Globulin 3.9, Albumin/Globulin Ratio 1.0, Lipase 15 12/13/23 14:57: Urine Color Yellow, Urine Clarity Clear, Urine pH 5.0, Ur Specific [place] 1.015, Urine Protein 30 H, Urine Glucose (UA) Normal, Urine Ketones 5 H, Urine Occult Blood 25 H, Urine Nitrite Positive H, Urine Bilirubin 1 H, Urine Urobilinogen 4 H, Ur Leukocyte Esterase 25 H, Urine RBC 0 SEEN, Urine WBC 0-5 SEEN, Ur Squamous Epith Cells 0 SEEN, Urine Bacteria 0 SEEN, Urine Mucus 0 SEEN 12/13/23 20:15: Lactic Acid 3.0 H* 12/14/23 00:50: Lactic Acid Cancelled 12/14/23 00:50: Lactic Acid 2.5 H* 12/14/23 05:00: WBC 24.4 H, RBC 4.48 L, Hgb 14.1, Hct 41.6, MCV 92.9, MCH 31.5, MCHC 33.9, RDW Std Deviation 50.2 H, RDW Coeff of Ann 14.6, Plt Count 214, MPV 10.8, Immature Gran % (Auto) 1.600 H, Neut % (Auto) 87.5 H, Lymph % (Auto) 2.5 L , [place] % (Auto) 7.0, Eos % (Auto) 0.8, Baso % (Auto) 0.6, Absolute Neuts (auto) 21.4 H, Absolute Lymphs (auto) 0.60 L, Nucleated RBC % 0, Diff Path Review May foll, Reactive Lymphocytes 1+, Sodium 134 L, Potassium 3.8, Chloride 102, Carbon Dioxide 27.0, Anion Gap 5, BUN 30 H, Creatinine 1.11, Estim Creat Clear Calc 57.55, Est GFR (MDRD) Af Amer 83, Est GFR (MDRD) Non-Af 68, BUN/Creatinine Ratio 27.0 H, Glucose 130 H, Hemoglobin A1c 5.5, Calcium 8.0 L, Phosphorus 3.4, Magnesium 2.0, Total Bilirubin 3.10 H, AST 39 H, ALT 11 L, Alkaline Phosphatase 55, Total Protein 5.9 L, Albumin 2.9 L, Globulin 3.0, Albumin/Globulin Ratio 1.0 Radiography Diagnostic Testing: Radiology Impression Abdomen/Pelvis CT 12/13/23 13:46 IMPRESSION: Marked degree of distention of the colon down to the region of the sigmoid colon. Sigmoid volvulus should be ruled out. 6.1 cm x 5 0.6 mL cyst in the upper midportion of the left kidney. N.B. : The above Results were Read Back by Brady Mackenzie MD to PANCHO Barker, and understanding confirmed on 12/13/2023 14:42:30 (ET). Electronically Signed: Brady Mackenzie MD at 14:43 EST , ADDENDUM: 12/13/23 1450 IMPRESSION: Marked degree of distention of the colon down to the region of the sigmoid colon. Sigmoid volvulus should be ruled out. 6.1 cm x 5 0.6 mL cyst in the upper midportion of the left kidney. N.B. : The above Results were Read Back by Brady Mackenzie MD to PANCHO Barker, and understanding confirmed on 12/13/2023 14:42:30 (ET). Electronically Signed: Brady Mackenzie MD at 14:43 EST , [facility] X-Ray 12/13/23 16:50 IMPRESSION: Fluoroscopy during endoscopy and placement of catheter. Electronically Signed: Janes Sneed MD at 20:14 EST , [facility] X-Ray 12/13/23 19:00 IMPRESSION: 1. Interval advancement of nasogastric tube with the tip in the left upper quadrant likely in the body the stomach. 2. Suspect adynamic ileus. Electronically Signed: Janes Sneed MD at 20:18 EST , K[facility] X-Ray 12/13/23 19:00 IMPRESSION: 1. Nasogastric tube with the tip in the midline likely in the distal esophagus. 2. Suspect adynamic ileus. Electronically Signed: Janes Sneed MD at 20:19 EST , Physical Exam Const oriented x3 Constitutional Narrative: Mild distress from nasogastric tube Resp normal respiratory effort Resp Narrative: Resolved tachypnea GI GI Narrative: Decreased abdominal distention, soft, mild tenderness (patient rates this as a 3 out of 10) with palpation of the left lower quadrant?otherwise denies any tenderness, nasogastric tube output is thin and brown Assessment & Plan Assessment/Plan (1) Sigmoid volvulus: PLAN: Patient is a 78-year-old male, with past medical history of Parkinson's, who presents with a 17-hour history of acute onset abdominal pain and nausea/vomiting. Diagnostic workup shows evidence of sigmoid volvulus. He is status post endoscopic colonic decompression with gastroenterology last evening. However, the significant stool burden precluded complete decompression of the colon but a rectal tube was left in place proximal to the area of volvulus. Overnight patient's lactate down trended and his abdominal distention is improved this morning. He is also reporting some improvements in his abdominal discomfort. He has remained hemodynamically stable but his urine output has been marginal so we will look to bolus him this morning (especially since his tachypnea from yesterday is resolved). Mr. Mtz white blood cell count remains elevated and I remain concerned for ischemic colitis?especially considering the ischemic mucosa noted on yesterday's colonoscopy. Yet it is my hope that he has not experienced any transmural bowel injuries and given patient's above improvements I am inclined to continue supportive care as I see this as his best chance at minimizing the surgery intervention he will ultimately require. Neuro: As needed Dilaudid, add as needed Chloraseptic Pulm/CV: Close monitoring of patient's respiratory and hemodynamic statuses. Bolus LR 500 mL x 1 now, patient could be sat out of bed in a chair to optimize his respiratory status FEN/GI: Continue close monitoring of electrolytes during n.p.o. status, continue NG tube to low intermittent wall suction, Protonix, rectal tube to low intermittent wall suction, notify surgery of any significant changes to patient' s abdominal exam or GI status, specifically : Ayala catheter to be placed imminently for strict ARINA monitoring Heme/ID: Continue to trend CBC, continue empiric IV Zosyn, azithromycin added by GI to try to stimulate peristalsis Endo: Continue glucose monitoring during n.p.o. state Proph: SCDs Dispo: Continue inpatient ICU care Charges/Coding Visit Charges Inpatient E&M: 44133 Subs Hosp L2
[2023-12-14] MEDS: LACTATED RINGERS 500 ML 999 ML IV (08:46)
[2023-12-14] MEDS: Phenol/Sodium Phenolate 180ML 3 SPRAY MUCOUS MEM (09:36)
[2023-12-14 11:13] LABS: Hemoglobin 13.6 g/dL (13.0-16.5)
--- NOTE | 2023-12-14 11:26 | PN.GI_ITS ---
Subjective Subjective Patient seen and examined at the bedside with his daughter and son. He states that he is feeling better. He had NG tube and rectal tube overnight. He has had about 200 mL out via NG tube and about 150 mL of stool out overnight from rectal tube. He says that his abdomen does feel better. He recently spiked a temperature at 100.1. Objective Data Objective Data Vital Signs: Vital Signs Temp Pulse Resp BP Pulse Ox O2 Del Method O2 Flow Rate 100.1 F H 94 20 H 149/75 H 98 Nasal Cannula 2 12/14/23 10:00 12/14/23 10:00 12/14/23 10:00 12/14/23 10:00 12/14/23 10:00 12/14/23 10:00 12/14/23 10:00 Oxygen Flow Rate (L/min) 2 Oxygen Delivery Method Nasal Cannula Weight: 186 lb 4.65 oz Body Mass Index (BMI) 26.7 Intake & Output: Intake and Output for Last 24 Hours 12/12/23 12/13/23 12/14/23 23:59 23:59 23:59 Intake Total 1355 / 1375 1819.17 / 1819.17 Output Total 150 / 250 350 / 350 Balance 1205 / 1125 1469.17 / 1469.17 Lab / Micro Data 12/14/23 11:00 12/14/23 05:00 Labs: Laboratory Results - last 24 hr 12/13/23 12:40: WBC 24.8 H, RBC 4.96, Hgb 16.2, Hct 46.8, MCV 94.4 H, MCH 32.7 H , MCHC 34.6, RDW Std Deviation 49.6 H, RDW Coeff of Ann 14.5, Plt Count 257, MPV 11.0, Immature Gran % (Auto) 1.300 H, Neut % (Auto) 92.3 H, Lymph % (Auto) 1.7 L , Leslie % (Auto) 4.2, Eos % (Auto) 0.0, Baso % (Auto) 0.5, Absolute Neuts (auto) 22.9 H, Absolute Lymphs (auto) 0.41 L, Nucleated RBC % 0, Differential Comment SCANNED, Diff Path Review February, Sodium 136, Potassium 4.5, Chloride 101, Carbon Dioxide 27.0, Anion Gap 8, BUN 29 H, Creatinine 1.33 H, Estim Creat Clear Calc 46.34, Est GFR (MDRD) Af Amer 67, Est GFR (MDRD) Non-Af 55 L, BUN/Creatinine Ratio 21.8 H, Glucose 179 H, Calcium 9.4, Total Bilirubin 2.40 H, AST 23, ALT 13 L, Alkaline Phosphatase 68, Total Protein 7.7, Albumin 3.8, Globulin 3.9, Albumin/Globulin Ratio 1.0, Lipase 15 12/13/23 14:57: Urine Color Yellow, Urine Clarity Clear, Urine pH 5.0, Ur Specific Scalf 1.015, Urine Protein 30 H, Urine Glucose (UA) Normal, Urine Ketones 5 H, Urine Occult Blood 25 H, Urine Nitrite Positive H, Urine Bilirubin 1 H, Urine Urobilinogen 4 H, Ur Leukocyte Esterase 25 H, Urine RBC 0 SEEN, Urine WBC 0-5 SEEN, Ur Squamous Epith Cells 0 SEEN, Urine Bacteria 0 SEEN, Urine Mucus 0 SEEN 12/13/23 20:15: Lactic Acid 3.0 H* 12/14/23 00:50: Lactic Acid Cancelled 12/14/23 00:50: Lactic Acid 2.5 H* 12/14/23 05:00: WBC 24.4 H, RBC 4.48 L, Hgb 14.1, Hct 41.6, MCV 92.9, MCH 31.5, MCHC 33.9, RDW Std Deviation 50.2 H, RDW Coeff of Ann 14.6, Plt Count 214, MPV 10.8, Immature Gran % (Auto) 1.600 H, Neut % (Auto) 87.5 H, Lymph % (Auto) 2.5 L , Leslie % (Auto) 7.0, Eos % (Auto) 0.8, Baso % (Auto) 0.6, Absolute Neuts (auto) 21.4 H, Absolute Lymphs (auto) 0.60 L, Nucleated RBC % 0, Diff Path Review May foll, Reactive Lymphocytes 1+, Sodium 134 L, Potassium 3.8, Chloride 102, Carbon Dioxide 27.0, Anion Gap 5, BUN 30 H, Creatinine 1.11, Estim Creat Clear Calc 57.55, Est GFR (MDRD) Af Amer 83, Est GFR (MDRD) Non-Af 68, BUN/Creatinine Ratio 27.0 H, Glucose 130 H, Hemoglobin A1c 5.5, Calcium 8.0 L, Phosphorus 3.4, Magnesium 2.0, Total Bilirubin 3.10 H, AST 39 H, ALT 11 L, Alkaline Phosphatase 55, Total Protein 5.9 L, Albumin 2.9 L, Globulin 3.0, Albumin/Globulin Ratio 1.0 12/14/23 11:00: Hgb 13.6, Hct 39.0 L Radiography Diagnostic Testing: Radiology Impression Abdomen/Pelvis CT 12/13/23 13:46 IMPRESSION: Marked degree of distention of the colon down to the region of the sigmoid colon. Sigmoid volvulus should be ruled out. 6.1 cm x 5 0.6 mL cyst in the upper midportion of the left kidney. N.B. : The above Results were Read Back by Brady Mackenzie MD to PANCHO Barker, and understanding confirmed on 12/13/2023 14:42:30 (ET). Electronically Signed: Brady Mackenzie MD at 14:43 EST , ADDENDUM: 12/13/23 1450 IMPRESSION: Marked degree of distention of the colon down to the region of the sigmoid colon. Sigmoid volvulus should be ruled out. 6.1 cm x 5 0.6 mL cyst in the upper midportion of the left kidney. N.B. : The above Results were Read Back by Brady Mackenzie MD to PANCHO Barker, and understanding confirmed on 12/13/2023 14:42:30 (ET). Electronically Signed: Brady Mackenzie MD at 14:43 EST , KUB X-Ray 12/13/23 16:50 IMPRESSION: Fluoroscopy during endoscopy and placement of catheter. Electronically Signed: Janes Sneed MD at 20:14 EST , KUB X-Ray 12/13/23 19:00 IMPRESSION: 1. Interval advancement of nasogastric tube with the tip in the left upper quadrant likely in the body the stomach. 2. Suspect adynamic ileus. Electronically Signed: Janes Sneed MD at 20:18 EST , KUB X-Ray 12/13/23 19:00 IMPRESSION: 1. Nasogastric tube with the tip in the midline likely in the distal esophagus. 2. Suspect adynamic ileus. Electronically Signed: Janes Sneed MD at 20:19 EST , KUB X-Ray 12/14/23 06:10 IMPRESSION: 1. Nasogastric tube with the tip in the region of the stomach. 2. Slightly improved gas pattern. Electronically Signed: Elder Taveras MD at 9:43 EST , Physical Exam Narrative Seen and examined Along with the surgeon and patient's RN present in the room. Patient has NG tube and rectal tube. Afebrile. No significant spontaneous urine output, it was dark and concentrated and patient is going to have a Ayala catheterization. Patient states his abdominal pain is little better. 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 Physical exam: General: Alert, Oriented x3, Cooperative but fatigued and weak HEENT: Atraumatic, PERRLA, EOMI, Normocephalic Oral: Oral mucosa dry. NG tube present. Dark black color aspirate. Neck: Supple, No JVD, Negative Carotid Bruits Chest wall/Lungs: Air entry diminished in bilateral lung bases. No crepitation/rhonchi Cardiovascular: Regular rate, Regular Rhythm, Normal S1, Normal S2, No M/G/R. Abdomen: Bowel Sounds Present, Soft, Non Tender, Non-Distended : Oliguria. No dysuria. No renal angle tenderness. No suprapubic tenderness. Extremities: No edema, Capillary Refill Less than 3 Seconds Skin: No rashes, No breakdown Musculoskeletal: No Tenderness to Palpation of Joints or Extremities. Mild muscle rigidity. History of Parkinson disease Neurological: Cranial nerves II-XII grossly intact, DTR 2+/4. No acute focal neurological deficit. Psych/Mental Status: Flat affect. Assessment & Plan Assessment/Plan (1) Sigmoid volvulus: (2) Leukocytosis: (3) Fever: PLAN: Plan 78-year-old gentleman with past medical history of Parkinson's disease on amantadine, carbidopa levodopa who presented with acute onset abdominal pain followed by nausea and vomiting. CT scan had showed acute volvulus formation of the sigmoid colon without perforation. He underwent rectal tube placement and NG tube placement. He is feeling a little bit better. Still concerns me that he did have some ischemia which was seen on colonoscopy yesterday. Hopefully, that is just mucosal injury. Recommendation: -Recheck lactic acid -Check ESR and CRP and LDH -Urine culture and blood cultures x 2 -Start vancomycin -Continue n.p.o. -Patient is still very sick -I tried to add Reglan for him last night in order to promote GI motility of the upper GI tract but he has Parkinson disease and dopamine antagonist can be contraindicated -Continue azithromycin for ileus of the small bowel associated with sigmoid volvulus. Charges/Coding Visit Charges Inpatient E&M: [id number] [facility] [place] [facility] L3
[2023-12-14] MEDS: Vancomycin HCl 2,000 MG in 0.9% Normal Saline (500mL Bag) 500 ML 250 MG IV (12:01)
[2023-12-14 12:11] LABS: Erythrocyte Sedimentation Rate 11 mm/hr (0-20)
[2023-12-14 12:31] LABS: Lactic Acid 1.3 mmol/L (0.4-1.9)
--- NOTE | 2023-12-14 13:06 | PCM.RX.CS ---
Consult Antibiotic Management Pharmacy has been consulted to manage selected antibiotic: Vancomycin Type of Intervention Type of Consult: New start Labs Labs: Sodium 134 mmol/L (136-145) L 12/14/23 05:00 Potassium 3.8 mmol/L (3.5-5.1) 12/14/23 05:00 Chloride 102 mmol/L (98-107) 12/14/23 05:00 Carbon Dioxide 27.0 mmol/L (21.0-32.0) 12/14/23 05:00 Anion Gap 5 (5-15) 12/14/23 05:00 BUN 30 mg/dL (7-18) H 12/14/23 05:00 Creatinine 1.11 mg/dL (0.70-1.30) 12/14/23 05:00 Est GFR (MDRD) Af Amer 83 mL/min (>60) 12/14/23 05:00 Est GFR (MDRD) Non-Af 68 mL/min (>60) 12/14/23 05:00 BUN/Creatinine Ratio 27.0 RATIO (10-20) H 12/14/23 05:00 Glucose 130 mg/dL (74-106) H 12/14/23 05:00 Pharmacy Plan for Drug Dosing Pharmacy Plan for Drug Dosing: NEW START IV VANCOMYCIN Consulting Physician: Friend Indication: sbo/bowel infection Goal Trough: 15-20 mg/dL SrCr: 1.11 mg/dL CrCl: 57 mL/min Comments: had loading dose of 2000mg 12/14 @ 1201 Vancomycin Dose: Will start 750mg q12 @ 0000 (12/15) and get a trough prior to 4th total dose per policy. Pending Level: 12/15/23 @ 3907 Pharmacy Service will continue to monitor and adjust dosing as required.
--- NOTE | 2023-12-14 15:15 | PCMCONS.TICU ---
HPI Consult Data Date of Consult: 12/14/23 HPI Narrative HPI Narrative: ANTHONY VIDES, is a 78 M who presents [facility] Medical History (Updated 12/14/23 @ 11:[address] Tineo Friend, DO) CKD (chronic kidney disease), stage II Parkinson disease Home Medications amantadine HCl 100 mg capsule 100 mg PO DAILY hill 12/04/23 [History Last Taken Unknown] carbidopa 25 mg-levodopa 100 mg tablet 1.5 tab PO DAILY 12/04/23 [History Last Taken Unknown] carbidopa ER 25 mg-levodopa 100 mg tablet,extended release 1 tab PO QHS hill 12/04/23 [History Last Taken Unknown] carbidopa 25 mg-levodopa 100 mg tablet 1 tab PO BID 12/13/23 [History Last Taken Unknown] Allergy/AdvReac Type Severity Reaction Status Date / Time No Known Allergies Allergy Verified 12/13/23 11:57 Family History (Updated 12/14/23 @ 00:[address] Kelley Shankar MD) Mother Heart disease Father Heart disease Surgical History (Updated 12/14/23 @ 00:[address] Kelley Shankar MD) History of tonsillectomy and adenoidectomy Surgical History no surgical history Social History (Updated 12/14/23 @ 01:[address] Kelley Shankar MD) household members: none Smoking Status: Never smoker alcohol intake: never substance use type: does not use Objective Data Objective Data Vital Signs: Vital Signs Last response Temperature 37.9 C H 12/14/23 12:00 Temperature Source Core 12/14/23 13:00 Pulse Rate 85 12/14/23 12:00 Respiratory Rate 19 H 12/14/23 12:00 Respiratory Effort Normal 12/14/23 10:00 Respiratory Depth Normal 12/14/23 10:00 Respiratory Pattern Normal 12/14/23 10:00 Blood Pressure 140/73 H 12/14/23 13:00 Blood Pressure Mean 95 12/14/23 13:00 Blood Pressure Source Monitor 12/14/23 13:00 Blood Pressure Position Semi-Fowlers 12/14/23 13:00 Blood Pressure Location Left Arm 12/14/23 13:00 Pulse Ox 97 12/14/23 12:00 Oxygen Delivery Method Nasal Cannula 12/14/23 13:00 Oxygen Flow Rate (L/min) 2 12/14/23 13:00 I&O: I&O Last 24 Hours 12/13/23 12/14/23 12/14/23 23:59 11:59 23:59 Intake Total 1355 / 1375 1819.17 / 2819.17 1000 / 2819.17 Output Total 150 / 250 350 / 700 350 / 700 Balance 1205 / 1125 1469.17 / 2119.17 650 / 2119.17 I&O: Total Stay 12/13/23 11:55 thru 12/14/23 12:50 Intake Total 4174.17 Output Total 850 Balance 3324.17 Current Meds Ordered / Administered: Current meds ordered / Administered Generic Name Dose Route Start Last Admin Trade Name Freq PRN Reason Stop Dose Admin Amantadine HCl 100 mg 12/14/23 10:00 12/14/23 08:10 Amantadine 100 Mg Capsule PO Not Given DAILY GAURI Carbidopa/Levodopa 1 tablet 12/14/23 11:00 12/14/23 08:10 Carbidopa/Levodopa 25/100 Tablet PO Not Given 1100,1600 GAURI Carbidopa/Levodopa 1.5 tablet 12/14/23 08:00 12/14/23 08:10 Carbidopa/Levodopa 25/100 Tablet PO Not Given 0800 GAURI Carbidopa/Levodopa 0.5 tablet 12/13/23 22:00 12/13/23 22:23 Carbidopa/Levodopa Cr 50/200 Tablet PO 0.5 tablet QHS GAURI Administration Hydromorphone HCl 0.5 mg 12/13/23 16:11 Hydromorphone 0.5 Mg/0.5 Ml Syringe IV Q4H PRN PRN Pain Score 6-10 Sodium Chloride 1,000 mls @ 15 mls/hr 12/13/23 16:10 12/13/23 16:17 IV 15 mls/hr .Q48H GAURI Administration Lactated Ringer's 1,000 mls @ 125 mls/hr 12/13/23 16:15 12/14/23 14:56 IV 125 mls/hr .Q8H GAURI Administration Sodium Chloride 250 mls @ 15 mls/hr 12/13/23 20:37 IV .[id number] PRN Additional IVPB Infusion Sodium Chloride 250 mls @ 15 mls/hr 12/13/23 20:37 IV .[id number] PRN Saline Flush Piperacillin Sod/Tazobactam 50 mls @ 12.5 mls/hr 12/13/23 22:00 12/14/23 14:55 Sod 3.375 gm/ Sodium Chloride IV 12.5 mls/hr Q8 GAURI Administration Azithromycin 500 mg/ Dextrose 255 mls @ 250 mls/hr 12/13/23 22:00 12/13/23 23:46 IV Infused Q24H GAURI Infusion Pantoprazole Sodium 40 mg/ 110 mls @ 330 mls/hr 12/14/23 01:00 12/14/23 08:30 Sodium Chloride IV Infused Q24 GAURI Infusion Vancomycin IV-PHARMACY TO DOSE 500 mls @ 250 mls/hr 12/14/23 11:44 1 each/ Sodium Chloride IV X1 PRN Rx to Dose Protocol Vancomycin HCl 750 mg/ Sodium 265 mls @ 250 mls/hr 12/15/23 00:00 Chloride IV Q12H GAURI Ondansetron HCl 4 mg 12/13/23 16:11 Ondansetron 4 Mg/2 Ml Vial IV Q6H PRN PRN NAUSEA/VOMITING Phenol/Menthol 3 spray 12/14/23 08:11 12/14/23 09:36 Phenol/Sodium Phenolate 180ml MUCOUS MEM 3 spray Q2H PRN PRN Administration SORE THROAT Sodium Chloride 10 - 40 ml 12/13/23 20:37 12/14/23 01:53 0.9% Saline Lock 10 Ml Syringe IV 20 ml UD PRN Administration SALINE FLUSH Vancomycin Protocol 1 lab 12/15/23 21:30 Vancomycin Trough/Random Due 12/16/23 01:30 DAILY [facility] Lab / Micro Data 12/14/23 11:00 12/14/23 05:00 Labs: Laboratory Results - last 24 hr 12/13/23 20:15: Lactic Acid 3.0 H* 12/14/23 00:50: Lactic Acid Cancelled 12/14/23 00:50: Lactic Acid 2.5 H* 12/14/23 05:00: WBC 24.4 H, RBC 4.48 L, Hgb 14.1, Hct 41.6, MCV 92.9, MCH 31.5, MCHC 33.9, RDW Std Deviation 50.2 H, RDW Coeff of Ann 14.6, Plt Count 214, MPV 10.8, Immature Gran % (Auto) 1.600 H, Neut % (Auto) 87.5 H, Lymph % (Auto) 2.5 L, [place] % (Auto) 7.0, Eos % (Auto) 0.8, Baso % (Auto) 0.6, Absolute Neuts (auto) 21.4 H, Absolute Lymphs (auto) 0.60 L, Nucleated RBC % 0, Diff Path Review May foll, Reactive Lymphocytes 1+, Sodium 134 L, Potassium 3.8, Chloride 102, Carbon Dioxide 27.0, Anion Gap 5, BUN 30 H, Creatinine 1.11, Estim Creat Clear Calc 57.55, Est GFR (MDRD) Af Amer 83, Est GFR (MDRD) Non-Af 68, BUN/Creatinine Ratio 27.0 H, Glucose 130 H, Hemoglobin A1c 5.5, Calcium 8.0 L, Phosphorus 3.4, Magnesium 2.0, Total Bilirubin 3.10 H, AST 39 H, ALT 11 L, Alkaline Phosphatase 55, Total Protein 5.9 L, Albumin 2.9 L, Globulin 3.0, Albumin/Globulin Ratio 1.0 12/14/23 11:00: Hgb 13.6, Hct 39.0 L 12/14/23 11:50: ESR 11, Lactic Acid 1.3, C-React Prot Ext Range 176.00 H Imaging Radiology Impression KUB X-Ray 12/13/23 16:50 IMPRESSION: Fluoroscopy during endoscopy and placement of catheter. Electronically Signed: Janes Sneed MD at 20:14 EST Reading Location ID and State: [id number] / [employer] , Service support , KUB X-Ray 12/13/23 19:00 IMPRESSION: 1. Interval advancement of nasogastric tube with the tip in the left upper quadrant likely in the body the stomach. 2. Suspect adynamic ileus. Electronically Signed: Janes Sneed MD at 20:18 EST , KUB X-Ray 12/13/23 19:00 IMPRESSION: 1. Nasogastric tube with the tip in the midline likely in the distal esophagus. 2. Suspect adynamic ileus. Electronically Signed: Janes Sneed MD at 20:19 EST , KUB X-Ray 12/14/23 06:10 IMPRESSION: 1. Nasogastric tube with the tip in the region of the stomach. 2. Slightly improved gas pattern. Electronically Signed: Elder Taveras MD at 9:43 EST , Assessment and Plan . Assessment and plan: 78 yo man admitted 12/13/23 w/ severe abdominal pain and obstipation. CT A/P concerning for sigmoid volvulus. He has been evaluated by GI and surgery. He has undergone colonoscopy w/ attempted decompression. This has been performed w/ partial decompression achieved at the time of procedure. Since that time, abdominal pain improved. NGT o/p has decreased. LA now WNL. No stool per rectal tube as of yet. He appears ill but not distressed. Low grade fever. HD stable. UOP adequate currently. Abdomen distended a bit. KUB reveals less distended bowel. PHYSICAL EXAM GEN NAD VS as above HEENT NGT NECK supple COR RRR CHEST CTA ABD soft, distended, quiet EXT no edema SKIN w/d RAFAEL NF ASSESSMENT 1. Sigmoid volvulus w/ partial obstruction 2. Low grade fever w/ leukocytosis 3. Hematuria 4. Improved lactic acidosis TREATMENT PLAN -continue crystalloid -receiving empiric ABX -NGT ILWS -hold all A/C -GI and surgery following Critical Care Time: 60 min The entirety of this encounter was done via Telemedicine
--- NOTE | 2023-12-14 18:00 | CASEMGMT ---
Addendum entered by Travon Montero 12/14/23 18:44: Pt interested in medical alert info. Provided at this time. Original Note: RN CM arc welder CM to room to meet with patient for initial transition planning/care coordination assessment. SHARAN MORROW introduced self and role at [facility]. Pt voices understanding and consents to?assessment?at this time.? Pt resting in bed in no distress at this time.? Pt is A/O at this time and answers all questions appropriately.?? Care providers, pharmacy, and demographics verified/updated at this time. PCP: Dr Montaño Specialists: Dr Adi Kyle (F Main - Movement Specialist) Preferred Pharmacy: [facility] Insurance: [facility], [employer] Prescription Benefit: Yes LNOK: Carmella Martin (Daughter) Living Arrangements: Pt lives alone in a 2 story home with a basement. 2 bedrooms and full bathroom upstairs and 1/2 bath on main floor. Independent w/ADL's and IADL's. Carmella comes to help prepare meals about once a week. Transportation: pt, dtr DME: Pt states he has a walking cane at home that he only uses for hiking. Pt has a walk-in shower with a shower chair and grab bars. Pt just got a walker this past week and was starting to use it. HHC/SNF: Denies history of either. Pt was just set up @ [facility] for OP therapy and appt was scheduled for 12/11. Pt states he was not able to go d/t being too weak. Discussed discharge plan. Pt states he is not sure how weak he will be when he is ready for discharge, but anticipates he will be pretty weak. He states he would be agreeable to SNF, if needed. Plan: TBD by course of treatment and progress w/therapy Cuca ANDRES RN, CM
[2023-12-14] MEDS: Lidocaine Jelly 2% 20 ML Syringe (URO-JET) 1 APPLIC TOPICAL (21:52)
[2023-12-14] MEDS: Azithromycin 500 MG in Dextrose 5%-Water (250mL Bag) 250 ML 250 MG IV (21:55)
[2023-12-15] VITALS (20 sets, daily range): BP systolic 119–160; BP diastolic 78–114; PULSE 83–922; RESP 14–24; TEMP 36–37.9; O2SAT 93–100; BMI 27.4
[2023-12-15] MEDS: Vancomycin HCl 750 MG in 0.9% Normal Saline (250mL Bag) 250 ML 250 MG IV ×2 (00:03→12:09)
[2023-12-15] MEDS: Piperacil/Tazobactam 3.375 GM in 0.9% Normal Saline (50mL MB+) 50 ML IV ×3 (05:13→19:47)
[2023-12-15 05:40] LABS: Absolute Lymphocyte Count 0.49 X10^3/uL (0.83-4.51); Absolute Neutrophil Count 14.1 X10^3/uL (2.0-7.7); Basophil% 0.6 % (0-1); Eosinophil# 0.11 X10^3/uL; Eosinophils% 0.7 % (0-5); Hemoglobin 14.1 g/dL (13.0-16.5); Lymphocyte # 0.49 X10^3/ul (0.83-4.51); Mean Corp Hgb Conc 33.6 g/dL (32-36); Mean Corpuscular Hgb 30.8 pg (27.0-32.0); Mean Corpuscular Volume 91.7 fL (80-94); Mean Platelet Vol. 10.5 fl (6.2-12.0); Monocyte# 1.13 X10^3/uL; NRBC Flagged by Analyzer 0 % (0-5); Neutrophil # 14.12 X10^3/uL (2.7-7.7); Neutrophil % 87.3 % (47-70); POSITIVE DIFFERENTIAL YES; POSITIVE MORPHOLOGY YES; Platelet Count 188 K/mm3 (150-450); RBC Distribution Width CV 14.5 % (11.6-14.6); RBC Distribution Width SD 48.9 fl (35.1-43.9); Red Blood Count 4.58 M/mm3 (4.6-6.2); White Blood Count 16.2 K/mm3 (4.4-11.0)
[2023-12-15 05:44] LABS: Differential Indicated SCAN CRITERIA MET
[2023-12-15 05:51] LABS: ALB/GLOB Ratio 0.8 RATIO (0.9-2.4); AST(SGOT) 28 U/L (15-37); Alanine Aminotransfer ALT/SGPT 30 U/L (16-61); Albumin, Serum 2.5 g/dL (3.2-5.0); Alkaline Phosphatase 56 U/L (45-117); Anion Gap 6 (5-15); BUN 25 mg/dL (7-18); BUN/Creat Ratio 28.4 RATIO (10-20); Chloride 105 mmol/L (98-107); Creatinine, Serum 0.88 mg/dL (0.70-1.30); EST Glomerular Filtration Rate 89 mL/min (>60); Est Glom Filt Rate - Afr Amer 108 mL/min (>60); Estimated Creatinine Clearance 72.59 ml/min; Globulin 3.1 g/dL (2.2-4.2); Glucose 110 mg/dL (74-106); Magnesium 1.9 mg/dL (1.6-2.6); Phosphorus 2.3 mg/dL (2.5-4.9); Potassium 3.5 mmol/L (3.5-5.1); Protein, Total 5.6 g/dL (6.4-8.2); Sodium Level 136 mmol/L (136-145)
[2023-12-15 06:23] LABS: Differential Comment SCANNED
[2023-12-15] MEDS: Lactated Ringers 1,000 ML 125 ML IV ×3 (07:57→23:14)
[2023-12-15] MEDS: Pantoprazole Sodium 40 MG in 0.9% Normal Saline (100mL MB+) 100 ML 330 MG IV (07:57)
--- NOTE | 2023-12-15 08:19 | PN.SURG_ITS ---
Objective Data Objective Data Vital Signs: Vital Signs Temp Pulse Resp BP Pulse Ox O2 Del Method O2 Flow Rate 99.7 F H 94 19 H 160/100 H 96 Room Air 2 12/15/23 04:00 12/15/23 07:00 12/15/23 07:00 12/15/23 07:00 12/15/23 07:20 12/15/23 07:20 12/14/23 23:00 Oxygen Flow Rate (L/min) 2 Oxygen Delivery Method Room Air Weight: 191 lb 5.78 oz Body Mass Index (BMI) 27.4 Intake & Output: Intake and Output for Last 24 Hours 12/13/23 12/14/23 12/15/23 23:59 23:59 23:59 Intake Total 1355 / 1375 5062.83 / 5062.83 1378.67 / 1378.67 Output Total 150 / 250 1600 / 1600 380 / 380 Balance 1205 / 1125 3462.83 / 3462.83 998.67 / 998.67 Lab / Micro Data 12/15/23 05:05 12/15/23 05:05 Labs: Laboratory Results - last 24 hr 12/14/23 11:00: Hgb 13.6, Hct 39.0 L 12/14/23 11:50: ESR 11, Lactic Acid 1.3, C-React Prot Ext Range 176.00 H 12/15/23 05:05: WBC 16.2 H, RBC 4.58 L, Hgb 14.1, Hct 42.0, MCV 91.7, MCH 30.8, MCHC 33.6, RDW Std Deviation 48.9 H, RDW Coeff of Ann 14.5, Plt Count 188, MPV 10.5, Immature Gran % (Auto) 1.400 H, Neut % (Auto) 87.3 H, Lymph % (Auto) 3.0 L , [place] % (Auto) 7.0, Eos % (Auto) 0.7, Baso % (Auto) 0.6, Absolute Neuts (auto) 14.1 H, Absolute Lymphs (auto) 0.49 L, Nucleated RBC % 0, Differential Comment SCANNED, Sodium 136, Potassium 3.5, Chloride 105, Carbon Dioxide 25.0, Anion Gap 6, BUN 25 H, Creatinine 0.88, Estim Creat Clear Calc 72.59, Est GFR (MDRD) Af Amer 108, Est GFR (MDRD) Non-Af 89, BUN/Creatinine Ratio 28.4 H, Glucose 110 H, Calcium 8.0 L, Phosphorus 2.3 L, Magnesium 1.9, Total Bilirubin 2.80 H, AST 28, ALT 30, Alkaline Phosphatase 56, Total Protein 5.6 L, Albumin 2.5 L, Globulin 3.1, Albumin/Globulin Ratio 0.8 L Radiography Diagnostic Testing: Radiology Impression KUB X-Ray 12/14/23 06:10 IMPRESSION: 1. Nasogastric tube with the tip in the region of the stomach. 2. Slightly improved gas pattern. Electronically Signed: Elder Taveras MD at 9:43 EST ,
--- NOTE | 2023-12-15 08:26 | PN.HOSP_ITS ---
Reason for Visit Reason for Visit: Diagnoses Elevated white blood cell count, unspecified (12/13/23) Volvulus (12/13/23) Fever, unspecified (12/13/23) Objective Data Objective Data Vital Signs: Vital Signs Temp Pulse Resp BP Pulse Ox O2 Del Method O2 Flow Rate 99.7 F H 94 19 H 160/100 H 96 Room Air 2 12/15/23 04:00 12/15/23 07:00 12/15/23 07:00 12/15/23 07:00 12/15/23 07:20 12/15/23 07:20 12/14/23 23:00 Oxygen Flow Rate (L/min) 2 Oxygen Delivery Method Room Air Weight: 191 lb 5.78 oz Body Mass Index (BMI) 27.4 Intake & Output: Intake and Output for Last 24 Hours 12/13/23 12/14/23 12/15/23 23:59 23:59 23:59 Intake Total 1355 / 1375 5062.83 / 5062.83 1378.67 / 1378.67 Output Total 150 / 250 1600 / 1600 380 / 380 Balance 1205 / 1125 3462.83 / 3462.83 998.67 / 998.67 Lab / Micro Data 12/15/23 05:05 12/15/23 05:05 Labs: Laboratory Results - last 24 hr 12/14/23 11:00: Hgb 13.6, Hct 39.0 L 12/14/23 11:50: ESR 11, Lactic Acid 1.3, C-React Prot Ext Range 176.00 H 12/15/23 05:05: WBC 16.2 H, RBC 4.58 L, Hgb 14.1, Hct 42.0, MCV 91.7, MCH 30.8, MCHC 33.6, RDW Std Deviation 48.9 H, RDW Coeff of Ann 14.5, Plt Count 188, MPV 10.5, Immature Gran % (Auto) 1.400 H, Neut % (Auto) 87.3 H, Lymph % (Auto) 3.0 L , [place] % (Auto) 7.0, Eos % (Auto) 0.7, Baso % (Auto) 0.6, Absolute Neuts (auto) 14.1 H, Absolute Lymphs (auto) 0.49 L, Nucleated RBC % 0, Differential Comment SCANNED, Sodium 136, Potassium 3.5, Chloride 105, Carbon Dioxide 25.0, Anion Gap 6, BUN 25 H, Creatinine 0.88, Estim Creat Clear Calc 72.59, Est GFR (MDRD) Af Amer 108, Est GFR (MDRD) Non-Af 89, BUN/Creatinine Ratio 28.4 H, Glucose 110 H, Calcium 8.0 L, Phosphorus 2.3 L, Magnesium 1.9, Total Bilirubin 2.80 H, AST 28, ALT 30, Alkaline Phosphatase 56, Total Protein 5.6 L, Albumin 2.5 L, Globulin 3.1, Albumin/Globulin Ratio 0.8 L Radiography Diagnostic Testing: Radiology Impression KUB X-Ray 12/14/23 06:10 IMPRESSION: 1. Nasogastric tube with the tip in the region of the stomach. 2. Slightly improved gas pattern. Electronically Signed: Elder Taveras MD at 9:43 EST , Physical Exam Narrative Seen and examined Low-grade fever. Tmax 100.8 Fahrenheit. Patient had about 1500 mL urine output yesterday after catheterization and 300 admitted today. Positive fluid balance about 5.6 L. Patient has swelling in the legs and upper extremities. Abdominal distention better. 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 Physical exam: General: Alert, Oriented x3, Cooperative but fatigued and weak HEENT: Atraumatic, PERRLA, EOMI, Normocephalic Oral: Oral mucosa dry. NG tube present. Dark black color aspirate. Neck: Supple, No JVD, Negative Carotid Bruits Chest wall/Lungs: Air entry diminished in bilateral lung bases. No crepitation/rhonchi Cardiovascular: Regular rate, Regular Rhythm, Normal S1, Normal S2, No M/G/R. Abdomen:Soft, distended. Mild tenderness present over left lower quadrant. Bowel sound estrella pitch and very slow. Rectal tube present. : Oliguria. No dysuria. No renal angle tenderness. No suprapubic tenderness. Extremities: Bilateral leg and upper extremity edema, Capillary Refill Less than 3 Seconds Skin: No rashes, No breakdown Musculoskeletal: No Tenderness to Palpation of Joints or Extremities. Moderate muscle rigidity at knee and hip joints. History of Parkinson disease Neurological: Cranial nerves II-XII grossly intact, DTR 2+/4. No acute focal neurological deficit. Psych/Mental Status: Flat affect. Assessment & Plan Assessment/Plan (1) Sigmoid volvulus: PLAN: Plan The patient is a 78 y/o M was admitted with sudden onset of Was admitted with sudden onset abdominal pain periumbilical and hypogastric in location, nausea vomiting, dark in color started 10 PM day before admission. No fever. Patient denies any prior history of bowel obstruction or abdominal pain like this. #1. Sigmoid volvulus, complicated with total colon distention, ileus and lactic acidosis with suspected colonic infection/colitis: Patient admitted under surgical service to the ICU after colonoscopy. Abdomen pelvis/CT was done prior to that. Shows mild distention of colon down to the region of sigmoid colon, up to 10 cm. Patient reported some passage of flatus. Has a rectal tube and NG tube. IV fluid 500 mL Ringer lactate ordered as patient did not had significant urine output. Heart rate and blood pressure are controlled. No fever. Discussed with the surgeon and plan to maintain on his current conservative measures to avoid total colectomy with high risk of surgery. Patient on IV PPI. Patient on IV Zosyn. Mild improvement in leukocytosis. Platelet count 214,000. Patient had colonoscopy on 12/13/2023. Sigmoid volvulus was found though colon prep was poor. Diverticulosis in RS colon and sigmoid colon. Partial decompression of volvulus achieved. No repeat colonoscopy recommended. Perioperative risk evaluation: Patient denies prior chronic cardiac or pulmonary disease including MA, cardiac stent, angina, CHF or A-fib or valvular heart disease. Denies COPD. No prior history of smoking or nicotine use or chronic a lcohol use. Patient has Parkinson disease but baseline musculoskeletal function unclear as patient is very sick now. Overall, patient is high risk. Incentive spirometry. 12/15: Patient is positive fluid balance about 5.6 L and heart rate in low 100s therefore decrease IV fluid to 75 mill per hour. Urine output is improving. Abdominal distention better but is still bowel sound slow. #2. MANPREET on Chronic Kidney Disease Stage II : Most likely prerenal due to sigmoid volvulus/ileus and third space: Ayala catheterization. Strict intake and output. Admission BUN/creatinine 29/1.33, today BUN/creatinine 30/1.11 BUN/creatinine ratio is 27. UA shows positive nitrite, ketones 5, bilirubin 1 LE 25 WBC 0-5 cells, bacteria 0. Patient on IV antibiotics. 12/15: Creatinine 0.88. BUN 25. Kidney function improving and urine output also adequate. K3.5, phosphorus 2.3, hypophosphatemia. IV potassium phosphate ordered. 3. Mild hyperbilirubinemia with normal transaminases, hyperbilirubinemia: Probably due to acute event of sigmoid volvulus ileus and possible secondary colon infection. Admission glucose 179. A1c 5.5 probably stress response hyperglycemia. Diabetes mellitus or prediabetes ruled out. 12/15: Improvement in total bilirubin 2.8. Transaminases and alkaline phosphatase normal. #4. Parkinson's disease: hold oral medications in view of ileus with impaired bowel absorption 12/15: Patient extremities are rigid therefore resume Sinemet and hold aspiration to get absorbed. #5. DVT Prophylaxis: Recommend at least SCDs, chemoprophylaxis per Surgery discretion. #6. CODE status: Patient HCPTAMMY is his daughter who is present and living will is currently in place. Discussed CODE status at length including difference between FULL code, DNR-CCA and DNR-CC status. Following discussions about the differences in these status, requested Full Code status. Advanced Care Charges/Coding Visit Charges Inpatient E&M: 40935 [facility] Hosp L3
--- NOTE | 2023-12-15 08:41 | RAD_ITS ---
STUDY: X-RAY - ABDOMEN/PELVIS REASON FOR EXAM: Male, 78 years old. abd distention TECHNIQUE: Single AP view of the abdomen / pelvis. COMPARISON: 12/14/2023 FINDINGS: Nasogastric tube with the tip in the left upper quadrant likely in the body the stomach. Suspect rectal tube with the tip left upper quadrant likely in the splenic flexure. There is a paralytic ileus of the small intestine with mild gaseous distention. There is no demonstrated free abdominal air. The visualized liver, spleen and kidneys are grossly normal in size and morphology. Normal soft tissue structures. Normal visualized osseous structures. RAD/Abdomen Single View (Portable) IMPRESSION: 1. Nasogastric tube with the tip left upper quadrant likely in the body the stomach. 2. Suspect rectal tube with tip in left upper quadrant likely in the splenic flexure. 3. No change in adynamic ileus. Electronically Signed: Janes Sneed MD at 9:56 EST ,
[2023-12-15] MEDS: Potassium Phosphate 15 MM in 0.9% Normal Saline (250mL Bag) 250 ML 125 MM IV (08:46)
--- NOTE | 2023-12-15 09:09 | PN.SURG_ITS ---
Subjective Subjective Patient seen and examined during AM rounds. He is found resting in bed. He complains of a dry/sore throat but otherwise denies significant complaints. He later remarks that he does seem to have slowed down on passage of gas. Objective Data Objective Data Vital Signs: Vital Signs Temp Pulse Resp BP Pulse Ox O2 Del Method O2 Flow Rate 99.7 F H 94 19 H 160/100 H 96 Room Air 2 12/15/23 04:00 12/15/23 07:00 12/15/23 07:00 12/15/23 07:00 12/15/23 07:20 12/15/23 07:20 12/14/23 23:00 Oxygen Flow Rate (L/min) 2 Oxygen Delivery Method Room Air Weight: 191 lb 5.78 oz Body Mass Index (BMI) 27.4 Intake & Output: Intake and Output for Last 24 Hours 12/13/23 12/14/23 12/15/23 23:59 23:59 23:59 Intake Total 1355 / 1375 5062.83 / 5062.83 1488.67 / 1488.67 Output Total 150 / 250 1600 / 1600 380 / 380 Balance 1205 / 1125 3462.83 / 3462.83 1108.67 / 1108.67 Lab / Micro Data 12/15/23 05:05 12/15/23 05:05 Labs: Laboratory Results - last 24 hr 12/14/23 11:00: Hgb 13.6, Hct 39.0 L 12/14/23 11:50: ESR 11, Lactic Acid 1.3, C-React Prot Ext Range 176.00 H 12/15/23 05:05: WBC 16.2 H, RBC 4.58 L, Hgb 14.1, Hct 42.0, MCV 91.7, MCH 30.8, MCHC 33.6, RDW Std Deviation 48.9 H, RDW Coeff of Ann 14.5, Plt Count 188, MPV 10.5, Immature Gran % (Auto) 1.400 H, Neut % (Auto) 87.3 H, Lymph % (Auto) 3.0 L , [place] % (Auto) 7.0, Eos % (Auto) 0.7, Baso % (Auto) 0.6, Absolute Neuts (auto) 14.1 H, Absolute Lymphs (auto) 0.49 L, Nucleated RBC % 0, Differential Comment SCANNED, Sodium 136, Potassium 3.5, Chloride 105, Carbon Dioxide 25.0, Anion Gap 6, BUN 25 H, Creatinine 0.88, Estim Creat Clear Calc 72.59, Est GFR (MDRD) Af Amer 108, Est GFR (MDRD) Non-Af 89, BUN/Creatinine Ratio 28.4 H, Glucose 110 H, Calcium 8.0 L, Phosphorus 2.3 L, Magnesium 1.9, Total Bilirubin 2.80 H, AST 28, ALT 30, Alkaline Phosphatase 56, Total Protein 5.6 L, Albumin 2.5 L, Globulin 3.1, Albumin/Globulin Ratio 0.8 L Radiography Diagnostic Testing: Radiology Impression KUB X-Ray 12/14/23 06:10 IMPRESSION: 1. Nasogastric tube with the tip in the region of the stomach. 2. Slightly improved gas pattern. Electronically Signed: Elder Taveras MD at 9:43 EST , Physical Exam Const oriented x3 and no apparent distress Resp normal respiratory effort GI GI Narrative: Nasogastric tube with nominal thin brown output, abdomen is more distended and tympanitic today. Patient describes some mild tenderness with palpation in the right upper quadrant. Assessment & Plan Assessment/Plan (1) Sigmoid volvulus: PLAN: Patient is a 78-year-old male, with past medical history of Parkinson's, who presents with a 17-hour history of acute onset abdominal pain and nausea/vomiting. Diagnostic workup shows evidence of sigmoid volvulus. He is status post endoscopic colonic decompression with gastroenterology 12/13/23. However, the significant stool burden precluded complete decompression of the colon but a rectal tube was left in place proximal to the area of volvulus. Yesterday patient's lactate was rechecked and was within normal limits. Yesterday he denied any abdominal discomfort and was actually reporting some hunger pangs. He has remained hemodynamically stable and his urine output improved with a bolus but remains red-tinged with some sediment after a semitraumatic Ayala catheter placement yesterday. Mr. Carver's white blood cell count has down trended to 16 from 24 yesterday (in the day prior). Unfortunately, today I am appreciating more abdominal distention and some shifting tenderness. Patient is also reporting less flatus so I am suspicious for recurrent obstruction versus ileus. Obtaining KUB now but patient may require CT imaging to further characterize. Have also informed him that this may lead us to bump his surgery up to today and the distention would preclude a laparoscopic approach Neuro: As needed Dilaudid, add as needed Chloraseptic Pulm/CV: Close monitoring of patient's respiratory and hemodynamic statuses. Patient mildly anasarcic but continue LR at 125 for now to maintain urine output. Patient could be sat out of bed in a chair to optimize his respiratory status FEN/GI: Continue close monitoring of electrolytes during n.p.o. status, administer 15 mmol of K-Phos today for mild hypophosphatemia and downtrending potassium, patient's creatinine is now within normal limits, continue NG tube to low intermittent wall suction, Protonix, rectal tube to low intermittent wall suction, will follow-up results of KUB, notify surgery of any significant changes to patient's abdominal exam or GI status, specifically : Ayala catheter for strict ARINA monitoring?continue to monitor for clots Heme/ID: Continue to trend CBC, continue empiric IV Zosyn and bank, follow-up urine culture and blood cultures, azithromycin added by GI to try to stimulate peristalsis Endo: Continue glucose monitoring during n.p.o. state Proph: SCDs Dispo: Continue inpatient ICU care Charges/Coding Visit Charges Inpatient E&M: 22988 Subs Hosp L2
--- NOTE | 2023-12-15 09:33 | CT_ITS ---
STUDY: CT ABDOMEN AND PELVIS WITH CONTRAST REASON FOR EXAM: Male, 78 years old. Increased ab distention s/p sigmoid volv decomp RADIATION DOSAGE (If Supplied By Facility): CTDIvol = ( 13.91 ) mGy, DLP = ( 1368.66 ) mGycm TECHNIQUE: Transaxial images were obtained from the dome of the diaphragm to the symphysis pubis without oral contrast. IV 100mL Isovue-370 was administered. Sagittal and coronal images were reconstructed. Individualized dose optimization techniques were used for this CT. COMPARISON: 12/13/2023 FINDINGS: Moderate bilateral pleural effusions with bibasilar atelectasis. The visualized portions of the heart are within normal limits. Small amount of ascites. Normal liver. Normal gallbladder and extrahepatic biliary system. Normal spleen. Normal pancreas. Normal bilateral adrenal glands. Normal right kidney. No change in a 6 cm exophytic cyst in the upper pole left kidney. Nasogastric tube with the tip in the body the stomach. Multiple loops of mildly dilated fluid-filled small bowel in the right side of the abdomen. Rectal tube with the tip in the proximal splenic flexure. Large amount of stool throughout the colon with air-fluid levels. There is non-visualization of the appendix. Normal abdominal aorta. Normal inferior vena cava. Normal retroperitoneum. Ayala catheter within the collapsed bladder. Small bilateral inguinal hernias containing fat and fluid. Mild dextroscoliosis lumbar spine with degenerative disc disease. CT/Abdomen/Pelvis W IV Cont ONLY IMPRESSION: 1. Moderate bilateral pleural effusions with bibasilar atelectasis. 2. Small amount of ascites 3. Nasogastric tube with the tip in the body the stomach. 4. Suspect adynamic ileus with some mildly dilated fluid-filled small bowel in the right side of the abdomen and moderately dilated colon with air-fluid levels despite a rectal tube near the splenic flexure. 5. Ayala catheter. 6. Electronically Signed: Janes Sneed MD at 11:20 EST ,
--- NOTE | 2023-12-15 10:27 | NURSING ---
ct abd completed, family@ bedside
--- NOTE | 2023-12-15 11:35 | NURSING ---
DR Kirkland here talking with patient & family will be taking pt to surgery, chlorhexidine bath given
--- NOTE | 2023-12-15 12:01 | NURSING ---
to or per bed family present
--- NOTE | 2023-12-15 13:07 | PCM.PN.TICU ---
Objective Data Objective Data Vital Signs: Vital Signs Last response Temperature 37.4 C H 12/15/23 10:00 Temperature Source Core 12/15/23 10:00 Pulse Rate 91 12/15/23 10:00 Pulse Strength Normal (2+) 12/15/23 10:00 Respiratory Rate 16 12/15/23 10:00 Respiratory Effort Normal, Non-Labored 12/15/23 04:00 Respiratory Depth Normal 12/15/23 04:00 Respiratory Pattern Normal 12/15/23 04:00 Blood Pressure 154/99 H 12/15/23 10:00 Blood Pressure Mean 117 12/15/23 10:00 Blood Pressure Source Monitor 12/15/23 10:00 Blood Pressure Position Semi-Fowlers 12/15/23 10:00 Blood Pressure Location Left Arm 12/15/23 10:00 Pulse Ox 96 12/15/23 10:00 Oxygen Delivery Method Room Air 12/15/23 10:00 Oxygen Flow Rate (L/min) 2 12/14/23 23:00 I&O: I&O Last 24 Hours 12/14/23 12/15/23 12/15/23 23:59 11:59 23:59 Intake Total 3243.66 / 5062.83 1793.67 / 1793.67 Output Total 1250 / 1600 380 / 380 Balance 1993.66 / 3462.83 1413.67 / 1413.67 I&O: Total Stay 12/13/23 11:55 thru 12/15/23 11:29 Intake Total 8211.50 Output Total 2130 Balance 6081.50 Current Meds Ordered / Administered: Current meds ordered / Administered Generic Name Dose Route Start Last Admin Trade Name Jenifer PRN Reason Stop Dose Admin Amantadine HCl 100 mg 12/14/23 10:00 12/15/23 11:30 Amantadine 100 Mg Capsule PO Not Given DAILY GAURI Carbidopa/Levodopa 1 tablet 12/14/23 11:00 12/14/23 19:27 Carbidopa/Levodopa 25/100 Tablet PO Not Given 1100,1600 GAURI Carbidopa/Levodopa 1.5 tablet 12/14/23 08:00 12/15/23 08:42 Carbidopa/Levodopa 25/100 Tablet PO Not Given 0800 GAURI Carbidopa/Levodopa 0.5 tablet 12/13/23 22:00 12/14/23 21:52 Carbidopa/Levodopa Cr 50/200 Tablet PO Not Given QHS GAURI Hydromorphone HCl 0.5 mg 12/13/23 16:11 Hydromorphone 0.5 Mg/0.5 Ml Syringe IV Q4H PRN PRN Pain Score 6-10 Sodium Chloride 1,000 mls @ 15 mls/hr 12/13/23 16:10 12/15/23 05:13 IV 0 mls/hr .Q48H GAURI Infusion Lactated Ringer's 1,000 mls @ 125 mls/hr 12/13/23 16:15 12/15/23 11:34 IV Not Given .Q8H GAURI Sodium Chloride 250 mls @ 15 mls/hr 12/13/23 20:37 IV .[id number] PRN Additional IVPB Infusion Sodium Chloride 250 mls @ 15 mls/hr 12/13/23 20:37 IV .[id number] PRN Saline Flush Piperacillin Sod/Tazobactam 50 mls @ 12.5 mls/hr 12/13/23 22:00 12/15/23 09:15 Sod 3.375 gm/ Sodium Chloride IV Infused Q8 GAURI Infusion Azithromycin 500 mg/ Dextrose 255 mls @ 250 mls/hr 12/13/23 22:00 12/14/23 22:57 IV Infused Q24H GAURI Infusion Pantoprazole Sodium 40 mg/ 110 mls @ 330 mls/hr 12/14/23 01:00 12/15/23 08:42 Sodium Chloride IV Infused Q24 GAURI Infusion Vancomycin IV-PHARMACY TO DOSE 500 mls @ 250 mls/hr 12/14/23 11:44 1 each/ Sodium Chloride IV X1 PRN Rx to Dose Protocol Vancomycin HCl 750 mg/ Sodium 265 mls @ 250 mls/hr 12/15/23 00:00 12/15/23 12:09 Chloride IV 250 mls/hr Q12H GAURI Administration Ondansetron HCl 4 mg 12/13/23 16:11 Ondansetron 4 Mg/2 Ml Vial IV Q6H PRN PRN NAUSEA/VOMITING Phenol/Menthol 3 spray 12/14/23 08:11 12/14/23 09:36 Phenol/Sodium Phenolate 180ml MUCOUS MEM 3 spray Q2H PRN PRN Administration SORE THROAT Sodium Chloride 10 - 40 ml 12/13/23 20:37 12/14/23 01:53 0.9% Saline Lock 10 Ml Syringe IV 20 ml UD PRN Administration SALINE FLUSH Vancomycin Protocol 1 lab 12/15/23 21:30 Vancomycin Trough/Random Due 12/16/23 01:30 DAILY [facility] Lab / Micro Data 12/15/23 05:05 12/15/23 05:05 Labs: Laboratory Results - last 24 hr 12/15/23 05:05: WBC 16.2 H, RBC 4.58 L, Hgb 14.1, Hct 42.0, MCV 91.7, MCH 30.8, MCHC 33.6, RDW Std Deviation 48.9 H, RDW Coeff of Ann 14.5, Plt Count 188, MPV 10.5, Immature Gran % (Auto) 1.400 H, Neut % (Auto) 87.3 H, Lymph % (Auto) 3.0 L, [place] % (Auto) 7.0, Eos % (Auto) 0.7, Baso % (Auto) 0.6, Absolute Neuts (auto) 14.1 H, Absolute Lymphs (auto) 0.49 L, Nucleated RBC % 0, Differential Comment SCANNED, Sodium 136, Potassium 3.5, Chloride 105, Carbon Dioxide 25.0, Anion Gap 6, BUN 25 H, Creatinine 0.88, Estim Creat Clear Calc 72.59, Est GFR (MDRD) Af Amer 108, Est GFR (MDRD) Non-Af 89, BUN/Creatinine Ratio 28.4 H, Glucose 110 H, Calcium 8.0 L, Phosphorus 2.3 L, Magnesium 1.9, Total Bilirubin 2.80 H, AST 28, ALT 30, Alkaline Phosphatase 56, Total Protein 5.6 L, Albumin 2.5 L, Globulin 3.1, Albumin/Globulin Ratio 0.8 L Imaging Radiology Impression KUB X-Ray 12/15/23 08:41 IMPRESSION: 1. Nasogastric tube with the tip left upper quadrant likely in the body the stomach. 2. Suspect rectal tube with tip in left upper quadrant likely in the splenic flexure. 3. No change in adynamic ileus. Electronically Signed: Janes Sneed MD at 9:56 EST , Abdomen/Pelvis CT 12/15/23 09:33 IMPRESSION: 1. Moderate bilateral pleural effusions with bibasilar atelectasis. 2. Small amount of ascites 3. Nasogastric tube with the tip in the body the stomach. 4. Suspect adynamic ileus with some mildly dilated fluid-filled small bowel in the right side of the abdomen and moderately dilated colon with air-fluid levels despite a rectal tube near the splenic flexure. 5. Ayala catheter. 6. Electronically Signed: Janes nSeed MD at 11:20 EST , Assessment and Plan . Assessment and plan: 78 yo man admitted 12/13/23 w/ severe abdominal pain and obstipation. CT A/P concerning for sigmoid volvulus. He has been evaluated by GI and surgery. He has undergone colonoscopy w/ attempted decompression. This has been performed w/ partial decompression achieved at the time of procedure. Since that time, abdominal pain improved. NGT o/p has decreased. LA now WNL. No stool per rectal tube as of yet. He appears ill but not distressed. Low grade fever. HD stable. UOP adequate currently. Abdomen distended a bit. KUB reveals less distended bowel. 12/15/23 Surgery opinion noted Planned operative intervention today PHYSICAL EXAM GEN NAD VS as above HEENT NGT NECK supple COR RRR CHEST CTA ABD soft, distended, quiet EXT no edema SKIN w/d RAFAEL NF ASSESSMENT 1. Sigmoid volvulus w/ partial obstruction 2. Low grade fever w/ leukocytosis 3. Hematuria 4. Improved lactic acidosis TREATMENT PLAN -continue crystalloid -receiving empiric ABX -NGT ILWS -hold all A/C -GI and surgery following - to OR today Critical Care Time: 50 min The entirety of this encounter was done via Telemedicine
--- NOTE | 2023-12-15 13:20 | COL_PTH ---
PATIENT: ANTHONY VIDES III LOC: MS3 U#:[id number] AGE/SX: 78/M ROOM: [facility]323 RE12/13/[address]: Dr. Surjit Kirkland MD : 1945 BED: 1 DIS: 12/24/2023 SPEC #: [id number] RECD: 12/16/23 06:35 STATUS: KYLEIGH RE #: [id number] ELSA: 12/15/23 13:[address]: Surjit Kirkland DEPT: SURGICAL PATHOLOGY RECD BY: Tasha Khan ENTERED: 12/16/23 10:23 SP TYPE: COLON OTHR DR: MD Dr. Sarika Sotomayor MD Dr. Bruce Arthur, MD Dr. Derek Brown, DO Dr. Gautam Baskaran, MD Dr. Yordanos Habtegebriel, MD Dr. Hemant Dand, MD Dr. Kimber Foust, MD Dr. Lamia Aljundi, MD Dr. Prakash Chand, MD Dr. Pavan Irukulla, MD Dr. Rahsaan Friend, MD Dr. Ernesto Sandoval Dr., MD Dr. William Haden, MD Tissues: A - Colon, NOS B - Colon, NOS Procedures: Surgery Specimen Level V HEADER OPERATION: Exploratory laparotomy, sigmoid colectomy, small bowel resection PRE-OP DIAGNOSIS: Sigmoid volvulus TISSUE SUBMITTED: A - Sigmoid colon, B - Small bowel-jejunum MICROSCOPIC DIAGNOSIS A. Sigmoid colon, colectomy: Dilated segment of colon, consistent with volvulus. Focal diverticulosis with mucosal ulceration and associated acute inflammation. See comment. B. Small bowel, jejunum, segment dissection: A segment of small bowel with focal area of defect with congestion and hemorrhage. SJ:devi 12/18/2023 COMMENT A. Area of diverticulosis also shows focal area of serosal foreign body giant cell reaction. Diverticulosis predominantly noted adjacent to the open resection margin. MICROSCOPIC DESCRIPTION Slides are reviewed. GROSS DESCRIPTION A - Received in fixative is one container labeled with the patient's name and designated sigmoid colon. The specimen consists of a dilated segment of colon measuring 18.0 cm in length. One resection margin is stapled and opposite resection margin is opened. The dilated segment of colon measures up to 12.0 cm in diameter. No serosal lesion is identified. The mucosa in the dilated segment of colon shows flattened mucosal fold. The lumen is filled with fecal material. No mucosal lesion is identified. Sections reveal a few diverticula close to the unstapled resection margin. The diverticula are filled with fecal material. No obvious lymph nodes are identified in the pericolonic adipose tissue. Intelligence Officer Basic sections are submitted in six cassettes as follows: 1 - open resection margin, 2 - stapled margin, 3-5 - diverticula, 6??enrollment eligibility representative section from the dilated segment of colon and pericolonic adipose tissue. B - Received in fixative is one container labeled with the patient's name and designated small bowel-jejunum. The specimen consists of a segment of small bowel measuring 5.0 cm in length. The serosa is dusky. The serosal surface shows a focal area of hemorrhage with focal area of defect 1.0 cm away from one resection margin. No mucosal lesion is identified. Intelligence Officer Basic sections are submitted in four cassettes as follows: 1 - resection margins, 2 & 3 - area of defect with congestion and hemorrhage, 4??enrollment eligibility representative section from other area. / ALANNA:devi 12/17/2023 TC:5 CPT: 73720 x2
[2023-12-15] MEDS: BUPIVACAINE LIPOSOME/PF 20 ML VIAL OPERA.SITE (14:37)
[2023-12-15] MEDS: 0.9% Normal Saline (Pres. free 10 ML Vial (14:37)
[2023-12-15] MEDS: Bupivacaine 0.25% 30 ML Vial (14:38)
--- NOTE | 2023-12-15 17:48 | PCM.OPRPT ---
Report of Operation Date of Procedure: 12/15/23 Pre-Operative Diagnosis: 1. Sigmoid colon volvulus status post endoscopic decompression 2. Adynamic ileus versus large bowel obstruction Post-Operative Diagnosis: 1. Sigmoid colon volvulus status post endoscopic decompression 2. 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 Exploratory laparotomy 2. Small bowel resection (6 cm to jejunum) is rejoined with stapled [id number] anastomosis 3. Repair of inadvertent small bowel enterotomy 4. Sigmoid colectomy with creation of end colostomy 5. Transversus abdominis plane block Description of Surgical Findings:: ? Dusky small bowel was volvulized around what appeared to be enterocolic fistula between the distal jejunum and the distal sigmoid colon ? Massively dilated sigmoid colon transitioning to decompressed/deeply adhered distal sigmoid colon within the pelvis ? Left ureter identified and of course followed into the pelvis ? Patient noted to have bloody urine Surgeon: Surjit Kirkland editing computer publisher: Mook Jorgensen editing computer publisher: Nikolay Lazo Type of Anesthesia: General/Supplemental Anesthesiologist: Jamir Jordan Specimen's removed: 1. Segment of jejunum 2 sigmoid colon Estimated Blood Loss (mL): 100 Description of Procedure: Patient arrived from the ICU and written consents were confirmed. He was brought to the operating room where he was positioned supine on the operating room table. He underwent induction with general endotracheal anesthetic. He was administered scheduled Zosyn. His nasogastric tube was placed to suction. He was placed in lithotomy position on a pink foam pad and his legs were placed with padding in the leg holders. I proceeded with a rectal irrigation in the event that he would be a candidate for possible colorectal anastomosis and used a dilute Betadine solution with a mushroom catheter to irrigate the rectum. SCDs, placed on bilateral lower extremities, were connected. Patient's abdomen was prepped and draped in usual sterile fashion. A formal timeout followed to confirm patient and the procedure. A laparotomy incision was extended from approximately 4 cm above the umbilicus to an additional 10 cm inferiorly and was carried down through the abdominal wall fascia with the use of electrocautery taking care to maintain hemostasis as we proceeded. Immediately upon entry the small bowel protruded forth from the incision. I initially attempted to locate the sigmoid colon and identify its supposed laxity. 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 I tried to feather out this adhesion and thereby preserve the integrity of the bowel, but the structure proved to be tenacious and I therefore sharply divided it resulting in a colotomy and enterotomy, respectively. All contamination was quickly contained with suction and I closed the colotomy using a 3-0 silk suture in a [id number]-[id number] fashion while I simply placed Alyce clamps across the enterotomy to prevent egress of succus. Further inspection revealed the sigmoid colon to be densely adherent to the pelvic sidewall and was at this point in my analysis that I sought additional help. I requested the assistance of my partner Dr. Jorgensen who graciously obliged to join our efforts in short order. During our time of waiting for his arrival I continued to make progress opening the white line of Toldt approaching the splenic flexure using electrocautery and this proved tedious given the severe distention of the bowel. Upon Dr. Jorgensen's arrival we extended our incision further inferiorly to the pubis and performed a very limited (estimated 6 cm) small bowel resection of the affected jejunum from our coloenteric fistula. This was done using a SONU stapler and a jziy-ne-dnvj fashion and the intervening mesenteric defect was closed with a 3-0 silk suture in standard fashion. With this complete we sought to better understand the anatomy and began exploring the right lower quadrant and junction of the ileum to the cecum. In doing so we found a second dense adhesion between the jejunum and the right pelvic sidewall. Using a combination of sharp and blunt dissection we sought to further out these adhesions but once again this resulted in inadvertent enterotomy. This time the opening in the bowel was smaller and we decided to close the area primarily. The area was first closed at the mucosal level using a 2-0 chromic suture. The repair was then imbricated using a series of 3-0 silk sutures in a Lembert fashion. We then returned to the pelvis where we found a lanza transition between a widely dilated sigmoid colon midway along its length to a very decompressed and adhered distal colon along the left pelvic sidewall. Tedious blunt and sharp dissection with limited electrocautery was used to try to free some of this distal colon from its adherence to the sidewall. Given its proximity, we were careful to identify the left ureter and follow its course to the pelvis?protecting it from inadvertent inclusion with our dissection. It became apparent that we would be unable to free the distal sigmoid colon without significant morbidity if it were even possible to be freed at all. Thus we made a window in the colonic mesentery posteriorly and attempted to staple across the distal segment (distal to our inadvertent colotomy) using a candycane stapler. Unfortunately, the tissue here proved to be too dense for the stapler and the stapler could not be closed around it. Attempts were made to compress the tissue further with a bowel clamp and feather out some of the intervening mesentery, but unfortunately this met the same result. Thus 2 bowel clamps were placed across the distal sigmoid and the colon was sharply divided between them. The open end of distal sigmoid remained clamped and was oversewn using a #1 Prolene suture. Meanwhile a second effort was made at mobilizing the sigmoid colon up to the level of the splenic flexure and the proximal sigmoid was divided with a firing of the SONU stapler after ensuring adequate length to the abdominal wall for maturation of the colostomy. The specimen was passed off the field for pathology. The abdomen was copiously irrigated with warm sterile saline until the effluent returned clear with our suctioning. With this complete we identified the site for the sigmoid colostomy and the opening was begun with removal of disc of skin using electrocautery. Then the subcutaneous tissue was spread down to the level of the anterior rectus sheath which was incised in a longitudinal manner using electrocautery. The rectus fibers were spread along their orientation to bring us down to the posterior rectus sheath. This layer was incised with electrocautery in a cruciate manner and the resulting opening was probed until it could easily accommodate 3 finger breaths. After confirming proper orientation of the colonic mesentery and the colon was brought through the abdominal wall. Seromuscular bites were made to the colon and the fascia to keep it in position. I then proceeded with placement of a transverse abdominis plane block under direct visualization using a cocktail of liposomal bupivacaine and measured aliquots taking care to distend the peritoneum but not violate this barrier. With this complete I transitioned to closure of the abdominal fascia using running #1 PDS sutures x2 in a bidirectional fashion and tying them in the middle. Additional local anesthetic was infiltrated above the fascia. Lastly the skin was closed with skin caitlyn. Attention was then turned to maturation of the colostomy which was done in a usual Kristyn fashion with 3-0 Vicryl suture to approximate the mucosal edge of the colon to the epidermal edge opening in the abdominal wall. There was some mild discoloration of the mucosa along the lower inner quadrant of the colostomy but overall it maintained a healthy pink, perfused appearance. The opening was digitally probed and found to proceed through the fascia without narrowing. A colostomy appliance was cut to fit over the stoma. Then folded 4 x 4 gauzes were placed across patient's laparotomy wound and secured in place with Tegaderm before the colostomy appliance was fully applied to the outside of this dressing. The patient was extubated and taken to ICU for ongoing recovery. Both the Ayala catheter and nasogastric tube were was left in place at the conclusion of the case. Complications None Admit VTE Documentation VTE Mechan Device Prophylaxis: SCD's
[2023-12-15] MEDS: Azithromycin 500 MG in Dextrose 5%-Water (250mL Bag) 250 ML 250 MG IV (19:46)
[2023-12-15] MEDS: 0.9% Saline Lock 10 ML Syringe IV (20:05)
[2023-12-15] MEDS: HYDROmorphone 0.5 MG/0.5 ML SYRINGE IV ×2 (20:05→23:21)
[2023-12-15] MEDS: Vancomycin Trough/Random Due 1 LAB MC (23:06)
[2023-12-16] VITALS (26 sets, daily range): BP systolic 112–176; BP diastolic 66–91; PULSE 82–108; RESP 15–27; TEMP 37.6–38; O2SAT 91–98; BMI 28.4
[2023-12-16 00:05] LABS: Vancomycin, Trough Level 14.8 ug/mL (5.0-15.0)
--- NOTE | 2023-12-16 00:53 | PCM.RX.CS ---
Consult Antibiotic Management Pharmacy has been consulted to manage selected antibiotic: Vancomycin Type of Intervention Type of Consult: Follow-up Labs Labs: Sodium 136 mmol/L (136-145) 12/15/23 05:05 Potassium 3.5 mmol/L (3.5-5.1) 12/15/23 05:05 Chloride 105 mmol/L (98-107) 12/15/23 05:05 Carbon Dioxide 25.0 mmol/L (21.0-32.0) 12/15/23 05:05 Anion Gap 6 (5-15) 12/15/23 05:05 BUN 25 mg/dL (7-18) H 12/15/23 05:05 Creatinine 0.88 mg/dL (0.70-1.30) 12/15/23 05:05 Est GFR (MDRD) Af Amer 108 mL/min (>60) 12/15/23 05:05 Est GFR (MDRD) Non-Af 89 mL/min (>60) 12/15/23 05:05 BUN/Creatinine Ratio 28.4 RATIO (10-20) H 12/15/23 05:05 Glucose 110 mg/dL (74-106) H 12/15/23 05:05 Vancomycin Trough 14.8 ug/mL (5.0-15.0) 12/15/23 23:10 Goal Trough Goal Trough: 15-20 mcg/mL Pharmacy Plan for Drug Dosing Pharmacy Plan for Drug Dosing: Pharmacy Service will continue to monitor and adjust dosing as required. TROUGH 14.8 @ 11 HOURS. INCREASE TO 1GM Q12H AND FOLLOW UP TROUGH PRIOR TO 4TH DOSE Follow-Up Labs Follow-Up Labs: Trough: Vancomycin Date/Time Labs Ordered Labs to be done on [date and time ordered]: 12/17 @ 1134
[2023-12-16] MEDS: Vancomycin IV 1,000 MG/200 ML BAG 200 MG IV ×2 (01:46→13:20)
[2023-12-16 03:30] LABS: Absolute Lymphocyte Count 0.49 X10^3/uL (0.83-4.51); Absolute Neutrophil Count 10.5 X10^3/uL (2.0-7.7); Basophil# 0.03 X10^3/uL; Basophil% 0.2 % (0-1); Hematocrit 38.6 % (40-54); Hemoglobin 13.2 g/dL (13.0-16.5); Lymphocyte # 0.49 X10^3/ul (0.83-4.51); Mean Corp Hgb Conc 34.2 g/dL (32-36); Mean Corpuscular Volume 93.5 fL (80-94); Mean Platelet Vol. 10.8 fl (6.2-12.0); Monocyte# 0.98 X10^3/uL; Monocyte% 8.1 % (0-10); NRBC Flagged by Analyzer 0 % (0-5); Neutrophil # 10.51 X10^3/uL (2.7-7.7); Neutrophil % 86.6 % (47-70); POSITIVE DIFFERENTIAL YES; POSITIVE MORPHOLOGY YES; Platelet Count 204 K/mm3 (150-450); RBC Distribution Width CV 14.7 % (11.6-14.6); Red Blood Count 4.13 M/mm3 (4.6-6.2); White Blood Count 12.1 K/mm3 (4.4-11.0)
[2023-12-16 03:31] LABS: Differential Indicated SCAN CRITERIA MET
[2023-12-16 03:45] LABS: Anion Gap 6 (5-15); BUN 31 mg/dL (7-18); BUN/Creat Ratio 25.6 RATIO (10-20); Calcium,Total 7.5 mg/dL (8.5-10.1); Chloride 108 mmol/L (98-107); Creatinine, Serum 1.21 mg/dL (0.70-1.30); EST Glomerular Filtration Rate 62 mL/min (>60); Est Glom Filt Rate - Afr Amer 75 mL/min (>60); Estimated Creatinine Clearance 52.79 ml/min; Glucose 156 mg/dL (74-106); Magnesium 1.8 mg/dL (1.6-2.6); Phosphorus 2.9 mg/dL (2.5-4.9); Sodium Level 138 mmol/L (136-145)
[2023-12-16] MEDS: 0.9% Saline Lock 10 ML Syringe IV ×2 (04:43→20:50)
[2023-12-16] MEDS: HYDROmorphone 0.5 MG/0.5 ML SYRINGE IV ×3 (04:43→20:50)
[2023-12-16] MEDS: Piperacil/Tazobactam 3.375 GM in 0.9% Normal Saline (50mL MB+) 50 ML IV ×3 (05:13→20:28)
--- NOTE | 2023-12-16 06:40 | PN.CC_ITS ---
Assessment & Plan Assessment/Plan (1) Bowel obstruction: QUALIFIERS: Intestinal obstruction type: volvulus Qualified Code(s): K56.2 - Volvulus (2) Sigmoid volvulus: PLAN: Plan RECOMMENDATIONS: 1. Continue empiric antibiotics per surgery 2. Defer to surgery on removal of NG 3. Encourage incentive spirometer 4. Walking oximetry prior to discharge 5. Okay to leave the intensive care unit from my perspective 6. Hemodynamically stable on room air. Will sign off from a critical care perspective IMPRESSIONS: 1. Sigmoid volvulus with small bowel obstruction status post resection Patient with significant leukocytosis on presentation. Conservative measures were unsuccessful, so patient did go to surgery yesterday. Patient currently with a colostomy in 6 cm of small bowel resected. Patient does run the risk for translocation of gut bacteria. Cultures are currently pending. Patient is on broad-spectrum antibiotics per surgery/GI. Patient appears to be doing well with significant improvement in leukocytosis and fever following surgery. Currently, patient is hemodynamically stable on room air. Will sign off from a critical care perspective 2. Acute kidney injury on CKD stage III Creatinine significantly elevated today compared to previous. This is likely secondary to prerenal etiology. Clinical suspicion for improvement with optimization of hemodynamics. No indication for renal replacement therapy at this time. Consider discontinuation of IV fluids once patient is able to tolerate p.o. as he is starting to develop hyperchloremia. 3. Parkinson disease/advanced age Complicates care, management, recovery and prognosis. Okay to continue wi th baseline medications from my perspective. Patient does have ostomy output, so absorption would likely be sufficient. Continue with aggressive PT/OT to avoid debility. Subjective Subjective Patient did well overnight. No acute issues were reported. Patient did have surgical intervention yesterday resulting in a colostomy in 6 cm of small bowel removed. Patient has been weaned to room air. Patient already has some output out of his ostomy. Objective Data Objective Data Vital Signs: Vital Signs Temp Pulse Resp BP Pulse Ox O2 Del Method O2 Flow Rate 37.6 C H 102 H 15 126/76 H 97 Room Air 2 12/16/23 06:00 12/16/23 06:00 12/16/23 06:00 12/16/23 06:00 12/16/23 06:00 12/16/23 06:00 12/16/23 05:00 Oxygen Flow Rate (L/min) 2 Oxygen Delivery Method Room Air Weight: 90.1 kg Body Mass Index (BMI) 28.4 Intake & Output: Intake and Output for Last 24 Hours 12/14/23 12/15/23 12/16/23 23:59 23:59 23:59 Intake Total 5062.83 / 5062.83 3844.92 / 3844.92 200 / 200 Output Total 1600 / 1600 1310 / 1310 Balance 3462.83 / 3462.83 2534.92 / 2534.92 200 / 200 Lab / Micro Data Attestation: I reviewed the patient's lab results. 12/16/23 03:20 12/16/23 03:20 Labs: Laboratory Results - last 24 hr 12/15/23 23:10: Vancomycin Trough 14.8 12/16/23 03:20: WBC 12.1 H, RBC 4.13 L, Hgb 13.2, Hct 38.6 L, MCV 93.5, MCH 32.0, MCHC 34.2, RDW Std Deviation 51.0 H, RDW Coeff of Ann 14.7 H, Plt Count 204, MPV 10.8, Immature Gran % (Auto) 1.100 H, Neut % (Auto) 86.6 H, Lymph % (Auto) 4.0 L, Morrill % (Auto) 8.1, Eos % (Auto) 0.0, Baso % (Auto) 0.2, Absolute Neuts (auto) 10.5 H, Absolute Lymphs (auto) 0.49 L, Nucleated RBC % 0, Sodium 138, Potassium 4.0, Chloride 108 H, Carbon Dioxide 24.0, Anion Gap 6, BUN 31 H, Creatinine 1.21, Estim Creat Clear Calc 52.79, Est GFR (MDRD) Af Amer 75, Est GFR (MDRD) Non-Af 62, BUN/Creatinine Ratio 25.6 H, Glucose 156 H, Calcium 7.5 L, Phosphorus 2.9, Magnesium 1.8 Radiography Diagnostic Testing: Radiology Impression KUB X-Ray 12/15/23 08:41 IMPRESSION: 1. Nasogastric tube with the tip left upper quadrant likely in the body the stomach. 2. Suspect rectal tube with tip in left upper quadrant likely in the splenic flexure. 3. No change in adynamic ileus. Electronically Signed: Janes Sneed MD at 9:56 EST Reading Location ID and State: [id number] / [employer] Tel , Service support , Abdomen/Pelvis CT 12/15/23 09:33 IMPRESSION: 1. Moderate bilateral pleural effusions with bibasilar atelectasis. 2. Small amount of ascites 3. Nasogastric tube with the tip in the body the stomach. 4. Suspect adynamic ileus with some mildly dilated fluid-filled small bowel in the right side of the abdomen and moderately dilated colon with air-fluid levels despite a rectal tube near the splenic flexure. 5. Ayala catheter. 6. Electronically Signed: Janes Sneed MD at 11:20 EST Reading Location ID and State: [id number] / Tel , Service support , Physical Exam Const alert and oriented x3 Constitutional Narrative: Resting comfortably on my evaluation HEENT normocephalic HEENT Narrative: NG in place Eyes PERRL and EOMs intact bilaterally Neck full ROM Chest inspection of chest normal Resp normal respiratory effort Auscultation: Negative for rales, rhonchi or wheezes Cardio regular rhythm, S1 normal heart sound, S2 normal heart sound, no murmurs, no rub and no gallops Rate: tachycardic GI GI Narrative: Slightly distended. No guarding noted. Incision is clean, dry and intact. Ostomy looks appropriate. Extremity no clubbing, cyanosis or edema Skin Skin Narrative: Incision is clean, dry and intact. Neuro CN's II-XII intact bilaterally and moves all extremities Psych cooperative Charges/Coding Visit Charges Inpatient E&M: [id number] Subs Hosp L2
[2023-12-16] MEDS: Lactated Ringers 1,000 ML 125 ML IV (06:48)
--- NOTE | 2023-12-16 07:24 | PN.HOSP_ITS ---
Reason for Visit Reason for Visit: Diagnoses Elevated white blood cell count, unspecified (12/13/23) Volvulus (12/13/23) Fever, unspecified (12/13/23) Objective Data Objective Data Vital Signs: Vital Signs Temp Pulse Resp BP Pulse Ox O2 Del Method O2 Flow Rate 99.6 F H 102 H 18 131/74 H 95 Room Air 2 12/16/23 06:58 12/16/23 06:58 12/16/23 06:58 12/16/23 06:58 12/16/23 06:58 12/16/23 06:58 12/16/23 05:00 Oxygen Flow Rate (L/min) 2 Oxygen Delivery Method Room Air Weight: 198 lb 10.184 oz Body Mass Index (BMI) 28.4 Intake & Output: Intake and Output for Last 24 Hours 12/14/23 12/15/23 12/16/23 23:59 23:59 23:59 Intake Total 5062.83 / 5062.83 3844.92 / 3844.92 1145.83 / 1145.83 Output Total 1600 / 1600 1310 / 1310 200 / 200 Balance 3462.83 / 3462.83 2534.92 / 2534.92 945.83 / 945.83 Lab / Micro Data 12/16/23 03:20 12/16/23 03:20 Labs: Laboratory Results - last 24 hr 12/15/23 23:10: Vancomycin Trough 14.8 12/16/23 03:20: WBC 12.1 H, RBC 4.13 L, Hgb 13.2, Hct 38.6 L, MCV 93.5, MCH 32.0, MCHC 34.2, RDW Std Deviation 51.0 H, RDW Coeff of Ann 14.7 H, Plt Count 204, MPV 10.8, Immature Gran % (Auto) 1.100 H, Neut % (Auto) 86.6 H, Lymph % (Auto) 4.0 L, [place] % (Auto) 8.1, Eos % (Auto) 0.0, Baso % (Auto) 0.2, Absolute Neuts (auto) 10.5 H, Absolute Lymphs (auto) 0.49 L, Nucleated RBC % 0, Sodium 138, Potassium 4.0, Chloride 108 H, Carbon Dioxide 24.0, Anion Gap 6, BUN 31 H, Creatinine 1.21, Estim Creat Clear Calc 52.79, Est GFR (MDRD) Af Amer 75, Est GFR (MDRD) Non-Af 62, BUN/Creatinine Ratio 25.6 H, Glucose 156 H, Calcium 7.5 L, Phosphorus 2.9, Magnesium 1.8 Radiography Diagnostic Testing: Radiology Impression KUB X-Ray 12/15/23 08:41 IMPRESSION: 1. Nasogastric tube with the tip left upper quadrant likely in the body the stomach. 2. Suspect rectal tube with tip in left upper quadrant likely in the splenic flexure. 3. No change in adynamic ileus. Electronically Signed: Janes Sneed MD at 9:56 EST Reading Location ID and State: [email or web address] / [employer] Tel , Service support , Abdomen/Pelvis CT 12/15/23 09:33 IMPRESSION: 1. Moderate bilateral pleural effusions with bibasilar atelectasis. 2. Small amount of ascites 3. Nasogastric tube with the tip in the body the stomach. 4. Suspect adynamic ileus with some mildly dilated fluid-filled small bowel in the right side of the abdomen and moderately dilated colon with air-fluid levels despite a rectal tube near the splenic flexure. 5. Ayala catheter. 6. Electronically Signed: Janes Sneed MD at 11:20 EST Reading Location ID and State: [employer] / [employer] Tel , Service support , Physical Exam Narrative Seen and examined Low-grade fever. Tmax 100.8 Fahrenheit. Patient had about 1500 mL urine output yesterday after catheterization and 300 admitted today. Positive fluid balance about 5.6 L. Patient has swelling in the legs and upper extremities. Abdominal distention better. NG tube. 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 Physical exam: General: Alert, Oriented x3, Cooperative but fatigued and weak HEENT: Atraumatic, PERRLA, EOMI, Normocephalic Oral: Oral mucosa dry. NG tube taken out, tiny NG output of greenish blackish color. Neck: Supple, No JVD, Negative Carotid Bruits Chest wall/Lungs: Shallow breathing. Air entry diminished in bilateral lung bases. No crepitation/rhonchi Cardiovascular: Sinus tachycardia, Normal S1, Normal S2, No M/G/R. Abdomen:Soft, postop distention and tenderness. Surgical dressing dry. Bowel sounds absent. : Oliguria. No dysuria. No renal angle tenderness. No suprapubic tenderness. Extremities: Bilateral lower and upper extremity edema, Capillary Refill Less than 3 Seconds Skin: No rashes, No breakdown Musculoskeletal: No Tenderness to Palpation of Joints or Extremities. Moderate muscle rigidity at knee and hip joints. History of Parkinson disease Neurological: Cranial nerves II-XII grossly intact, DTR 2+/4. No acute focal neurological deficit. Psych/Mental Status: Flat affect. Assessment & Plan Assessment/Plan (1) Sigmoid volvulus: PLAN: Plan The patient is a 78 y/o M was admitted with sudden onset of Was admitted with sudden onset abdominal pain periumbilical and hypogastric in location, nausea vomiting, dark in color started 10 PM day before admission. No fever. Patient denies any prior history of bowel obstruction or abdominal pain like this. #1. Sigmoid volvulus, complicated with total colon distention, ileus and lactic acidosis with suspected colonic infection/colitis: Patient admitted under surgical service to the ICU after colonoscopy. Abdomen pelvis/CT was done prior to that. Shows mild distention of colon down to the region of sigmoid colon, up to 10 cm. Patient reported some passage of flatus. Has a rectal tube and NG tube. IV fluid 500 mL Ringer lactate ordered as patient did not had significant urine output. Heart rate and blood pressure are controlled. No fever. Discussed with the surgeon and plan to maintain on his current conservative measures to avoid total colectomy with high risk of surgery. Patient on IV PPI. Patient on IV Zosyn. Mild improvement in leukocytosis. Platelet count 214,000. Patient had colonoscopy on 12/13/2023. Sigmoid volvulus was found though colon prep was poor. Diverticulosis in RS colon and sigmoid colon. Partial decompression of volvulus achieved. No repeat colonoscopy recommended. Perioperative risk evaluation: Patient denies prior chronic cardiac or pulmonary disease including TN, cardiac stent, angina, CHF or A-fib or valvular heart dis ease. Denies COPD. No prior history of smoking or nicotine use or chronic alcohol use. Patient has Parkinson disease but baseline musculoskeletal function unclear as patient is very sick now. Overall, patient is high risk. Incentive spirometry. 12/15: Patient is positive fluid balance about 5.6 L and heart rate in low 100s therefore decrease IV fluid to 75 mill per hour. Urine output is improving. Abdominal distention better but is still bowel sound slow. 12/16: Low-grade fever, Tmax 100.3 Fahrenheit, BP maintained, shallow breathing on 2 L of oxygen. Patient went for exploratory laparotomy, small bowel resection, 6 cm to jejunum was rejoined with stapled etje-zw-zusu anastomosis , Repair of inadvertent small bowel enterotomy, sigmoid colectomy with creation of end colostomy. Decrease IV fluid to 75 mill per hour. 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 Massively dilated sigmoid colon transitioning to decompressed/deeply adhered distal sigmoid colon within the pelvis #2. MANPREET on Chronic Kidney Disease Stage II : Most likely prerenal due to sigmoid volvulus/ileus and third space: Ayala catheterization. Strict intake and output. Admission BUN/creatinine 29/1.33, today BUN/creatinine 30/1.11 BUN/creatinine ratio is 27. UA shows positive nitrite, ketones 5, bilirubin 1 LE 25 WBC 0-5 cells, bacteria 0. Patient on IV antibiotics. 12/15: Creatinine 0.88. BUN 25. Kidney function improving and urine output also adequate. K3.5, phosphorus 2.3, hypophosphatemia. IV potassium phosphate ordered. 12/16: BUN/creatinine 31/1.21 little elevated, as compared to yesterday probably from surgical distress. Maintain adequat an effective volume. Serum magnesium more than 2 and phosphorus around 4.0 3. Mild hyperbilirubinemia with normal transaminases, hyperbilirubinemia: Probably due to acute event of sigmoid volvulus ileus and possible secondary colon infection. Admission glucose 179. A1c 5.5 probably stress response hyperglycemia. Diabetes mellitus or prediabetes ruled out. 12/15: Improvement in total bilirubin 2.8. Transaminases and alkaline phosphatase normal. 12/16: Liver chemistry ordered #4. Parkinson's disease: hold oral medications in view of ileus with impaired bowel absorption 12/15: Patient extremities are rigid therefore resume Sinemet and hold aspiration to get absorbed. #5. DVT Prophylaxis: Recommend at least SCDs, chemoprophylaxis per Surgery discretion. #6. CODE status: Patient BRIA is his daughter who is present and living will is currently in place. Discussed CODE status at length including difference between FULL code, DNR-CCA and DNR-CC status. Following discussions about the differences in these status, requested Full Code status. Advanced Care Charges/Coding Visit Charges Inpatient E&M: 67344 Subs Hosp L3
--- NOTE | 2023-12-16 08:02 | PCM.PN.SRG ---
Subjective Subjective Patient seen and examined during AM rounds. He is found and initially sleeping in bed. Upon awakening he states that he cannot talk much as he is very dry and sore throat. He states that he has some tenderness but overall feels better. Nursing denies any acute events overnight and reports that patient's nasogastric tube output has been nil. Further they confirm that patient's Ayala catheter output has cleared Objective Data Objective Data Vital Signs: Vital Signs Temp Pulse Resp BP Pulse Ox O2 Del Method O2 Flow Rate 99.6 F H 102 H 18 131/74 H 94 Room Air 2 12/16/23 06:58 12/16/23 06:58 12/16/23 06:58 12/16/23 06:58 12/16/23 07:40 12/16/23 07:40 12/16/23 05:00 Oxygen Flow Rate (L/min) 2 Oxygen Delivery Method Room Air Weight: 198 lb 10.184 oz Body Mass Index (BMI) 28.4 Intake & Output: Intake and Output for Last 24 Hours 12/14/23 12/15/23 12/16/23 23:59 23:59 23:59 Intake Total 5062.83 / 5062.83 3844.92 / 3844.92 1145.83 / 1145.83 Output Total 1600 / 1600 1310 / 1310 200 / 200 Balance 3462.83 / 3462.83 2534.92 / 2534.92 945.83 / 945.83 Lab / Micro Data 12/16/23 03:20 12/16/23 03:20 Labs: Laboratory Results - last 24 hr 12/15/23 23:10: Vancomycin Trough 14.8 12/16/23 03:20: WBC 12.1 H, RBC 4.13 L, Hgb 13.2, Hct 38.6 L, MCV 93.5, MCH 32.0, MCHC 34.2, RDW Std Deviation 51.0 H, RDW Coeff of Ann 14.7 H, Plt Count 204, MPV 10.8, Immature Gran % (Auto) 1.100 H, Neut % (Auto) 86.6 H, Lymph % (Auto) 4.0 L, [place] % (Auto) 8.1, Eos % (Auto) 0.0, Baso % (Auto) 0.2, Absolute Neuts (auto) 10.5 H, Absolute Lymphs (auto) 0.49 L, Nucleated RBC % 0, Sodium 138, Potassium 4.0, Chloride 108 H, Carbon Dioxide 24.0, Anion Gap 6, BUN 31 H, Creatinine 1.21, Estim Creat Clear Calc 52.79, Est GFR (MDRD) Af Amer 75, Est GFR (MDRD) Non-Af 62, BUN/Creatinine Ratio 25.6 H, Glucose 156 H, Calcium 7.5 L, Phosphorus 2.9, Magnesium 1.8 Radiography Diagnostic Testing: Radiology Impression KUB X-Ray 12/15/23 08:41 IMPRESSION: 1. Nasogastric tube with the tip left upper quadrant likely in the body the stomach. 2. Suspect rectal tube with tip in left upper quadrant likely in the splenic flexure. 3. No change in adynamic ileus. Electronically Signed: Janes Sneed MD at 9:56 EST Reading Location ID and State: [employer] / [employer] Tel , Service support , Abdomen/Pelvis CT 12/15/23 09:33 IMPRESSION: 1. Moderate bilateral pleural effusions with bibasilar atelectasis. 2. Small amount of ascites 3. Nasogastric tube with the tip in the body the stomach. 4. Suspect adynamic ileus with some mildly dilated fluid-filled small bowel in the right side of the abdomen and moderately dilated colon with air-fluid levels despite a rectal tube near the splenic flexure. 5. Ayala catheter. 6. Electronically Signed: Janes Sneed MD at 11:20 EST Reading Location ID and State: [id number] / [employer] Tel , Service support , Physical Exam Const oriented x3 Constitutional Narrative: In mild distress primarily from nasogastric tube Resp normal respiratory effort GI GI Narrative: Mildly distended, operative dressing intact beneath Tegaderms with minimal clear drainage, colostomy in left upper quadrant is overall well-perfused and with some thin stool exiting into the ostomy appliance. Mild tenderness with palpation Bladder / Kidney Exam: catheter in place urethral (Draining faint blood-tinged urine (improved)) Assessment & Plan Assessment/Plan (1) Sigmoid volvulus: PLAN: Patient is a 78-year-old male, with past medical history of Parkinson's, who presents with a 17-hour history of acute onset abdominal pain and nausea/vomiting. Diagnostic workup shows evidence of sigmoid volvulus. He is status post endoscopic colonic decompression with gastroenterology 12/13/23. However, the significant stool burden precluded complete decompression of the colon but a rectal tube was left in place proximal to the area of volvulus. Despite some clinical improvements?including significant drop in patient's WBC?patient displayed more abdominal distention and some shifting tenderness on exam. He also reported less flatus so a KUB followed by repeat CT imaging of the abdomen pelvis was obtained. This showed persistent distention of the colon despite a appropriately?placed rectal tube. I thus became concerned for either clogging of the rectal tube or persistent bowel obstruction due to another cause. Based on this suspicion patient was taken to the operating room for exploratory laparotomy yesterday. Through a long investigation and operation patient was found to have a number of issues including dense small bowel adhesions (versus fistula a) to the colon as well as a inflammatory stricture of the sigmoid colon. Inflammation was so dense that we were unable to fully dissect the sigmoid colon free of its attachments to the pelvis but were able to get the only dilated segments and transected the colon at this point. A markedly dilated segment of sigmoid colon was resected and the remainder was brought out as an end colostomy. Neuro: As needed Dilaudid, add as needed Chloraseptic Pulm/CV: Close monitoring of patient's respiratory and hemodynamic statuses. Patient again mildly anasarcic and hospitalist service has decreased IV fluid rate since urine output has been adequate. Patient could be sat out of bed in a chair to optimize his respiratory status FEN/GI: Continue close monitoring of electrolytes during n.p.o. status, patient requires slight repletion of his magnesium today, patient's creatinine is now within normal limits, nasogastric tube removed at bedside today and will approve patient for ice chips, Protonix, rectal tube discontinued yesterday, wound and ostomy nursing consult : Ayala catheter for strict ARINA monitoring?continue to monitor for clots Heme/ID: Continue to trend CBC, continue empiric IV Zosyn and bank, follow-up urine culture and blood cultures, azithromycin added by GI to try to stimulate peristalsis Endo: Continue glucose monitoring during limited nutritional state Proph: SCDs Dispo: Continue inpatient ICU care for now but patient may be eligible for transfer out of the ICU later this afternoon if he remains clinically stable Charges/Coding Visit Charges Inpatient E&M: 58573 Subs Hosp L2
[2023-12-16] MEDS: Pantoprazole Sodium 40 MG in 0.9% Normal Saline (100mL MB+) 100 ML 330 MG IV (08:33)
[2023-12-16 08:55] LABS: AST(SGOT) 19 U/L (15-37); Alanine Aminotransfer ALT/SGPT 21 U/L (16-61); Albumin, Serum 1.8 g/dL (3.2-5.0); Alkaline Phosphatase 38 U/L (45-117); Bilirubin, Direct 0.53 mg/dL (0.00-0.30); Globulin 2.8 g/dL (2.2-4.2); Protein, Total 4.6 g/dL (6.4-8.2)
[2023-12-16] MEDS: Magnesium Sulfate 2 GM in Dextrose 5%-Water (100mL Bag) 100 ML IV (08:56)
[2023-12-16] MEDS: Carbidopa/Levodopa 25/100 Tablet PO ×2 (13:22→17:27)
--- NOTE | 2023-12-16 14:03 | WOUNDNOTE ---
Pt with new colostomy. discussed with Dr Kirkland and plan is for dressing and appliance change tomorrow am.
[2023-12-16 14:24] LABS: Pathologist Review Reviewed
[2023-12-16 14:27] LABS: Pathologist Review Reviewed
[2023-12-16] MEDS: CARBIDOPA/LEVODOPA CR 50/200 Tablet PO (20:28)
[2023-12-16] MEDS: Azithromycin 500 MG in Dextrose 5%-Water (250mL Bag) 250 ML 250 MG IV (20:29)
[2023-12-16] MEDS: Lactated Ringers 1,000 ML 75 ML IV (20:29)
[2023-12-17] VITALS (21 sets, daily range): BP systolic 99–166; BP diastolic 61–97; PULSE 78–99; RESP 13–24; TEMP 37.4–37.8; O2SAT 90–97; BMI 28.5
[2023-12-17] MEDS: Vancomycin IV 1,000 MG/200 ML BAG 200 MG IV ×2 (00:12→11:59)
[2023-12-17] MEDS: HYDROmorphone 0.5 MG/0.5 ML SYRINGE IV ×5 (02:01→22:37)
[2023-12-17] MEDS: 0.9% Saline Lock 10 ML Syringe IV ×3 (02:02→22:37)
[2023-12-17 02:22] LABS: Absolute Lymphocyte Count 0.65 X10^3/uL (0.83-4.51); Absolute Neutrophil Count 9.3 X10^3/uL (2.0-7.7); Basophil# 0.04 X10^3/uL; Basophil% 0.4 % (0-1); Eosinophil# 0.01 X10^3/uL; Eosinophils% 0.1 % (0-5); Hematocrit 33.3 % (40-54); Hemoglobin 11.4 g/dL (13.0-16.5); Lymphocyte # 0.65 X10^3/ul (0.83-4.51); Lymphocyte % 5.8 % (19-41); Mean Corp Hgb Conc 34.2 g/dL (32-36); Mean Corpuscular Hgb 31.5 pg (27.0-32.0); Mean Platelet Vol. 10.2 fl (6.2-12.0); Monocyte# 1.09 X10^3/uL; Monocyte% 9.6 % (0-10); NRBC Flagged by Analyzer 0 % (0-5); Neutrophil # 9.33 X10^3/uL (2.7-7.7); Neutrophil % 82.5 % (47-70); POSITIVE MORPHOLOGY YES; Platelet Count 196 K/mm3 (150-450); RBC Distribution Width CV 14.7 % (11.6-14.6); RBC Distribution Width SD 49.6 fl (35.1-43.9); Red Blood Count 3.62 M/mm3 (4.6-6.2); White Blood Count 11.3 K/mm3 (4.4-11.0)
[2023-12-17 02:38] LABS: Anion Gap 4 (5-15); BUN 26 mg/dL (7-18); BUN/Creat Ratio 27.5 RATIO (10-20); Calcium,Total 7.8 mg/dL (8.5-10.1); Chloride 110 mmol/L (98-107); Creatinine, Serum 0.95 mg/dL (0.70-1.30); EST Glomerular Filtration Rate 82 mL/min (>60); Est Glom Filt Rate - Afr Amer 99 mL/min (>60); Estimated Creatinine Clearance 73.54 ml/min; Glucose 131 mg/dL (74-106); Phosphorus 1.6 mg/dL (2.5-4.9); Potassium 3.7 mmol/L (3.5-5.1); Sodium Level 139 mmol/L (136-145)
[2023-12-17 03:50] LABS: Differential Indicated SCAN CRITERIA MET
[2023-12-17 04:33] LABS: Differential Comment SCANNED
[2023-12-17] MEDS: Piperacil/Tazobactam 3.375 GM in 0.9% Normal Saline (50mL MB+) 50 ML IV ×3 (05:08→19:28)
--- NOTE | 2023-12-17 07:56 | PCM.PN.SRG ---
Subjective Subjective Patient evaluated resting comfortably in bed. Patient notes tenderness at the incision site. He denies any true pain. Patient notes he was tolerating sips and chips without any nausea. Patient was transitioned to NPO around 4 pm yesterday. Patient is able to get his medication orally through jello. Per nursing patient's urine output has picked up and appears more clear. Objective Data Objective Data Vital Signs: Vital Signs Temp Pulse Resp BP Pulse Ox O2 Del Method O2 Flow Rate 99.6 F H 83 15 132/75 H 92 Room Air 2 12/17/23 07:00 12/17/23 07:00 12/17/23 07:00 12/17/23 07:00 12/17/23 07:00 12/17/23 07:00 12/16/23 05:00 FiO2 95 12/16/23 11:30 Oxygen Flow Rate (L/min) 2 Oxygen Delivery Method Room Air Weight: 199 lb 8.293 oz Body Mass Index (BMI) 28.5 Intake & Output: Intake and Output for Last 24 Hours 12/15/23 12/16/23 12/17/23 23:59 23:59 23:59 Intake Total 3844.92 / 3844.92 3114.83 / 3114.83 250 / 250 Output Total 1310 / 1310 1250 / 1250 700 / 700 Balance 2534.92 / 2534.92 1864.83 / 1864.83 -450 / -450 Lab / Micro Data 12/17/23 02:10 12/17/23 02:10 Labs: Laboratory Results - last 24 hr 12/13/23 12:40: Diff Path Review Reviewed 12/14/23 05:00: Diff Path Review Reviewed 12/16/23 03:20: Total Bilirubin 1.80 H, Direct Bilirubin 0.53 H, AST 19, ALT 21, Alkaline Phosphatase 38 L, Total Protein 4.6 L, Albumin 1.8 L, Globulin 2.8 12/17/23 02:10: WBC 11.3 H, RBC 3.62 L, Hgb 11.4 L, Hct 33.3 L, MCV 92.0, MCH 31.5, MCHC 34.2, RDW Std Deviation 49.6 H, RDW Coeff of Ann 14.7 H, Plt Count 196, MPV 10.2, Immature Gran % (Auto) 1.600 H, Neut % (Auto) 82.5 H, Lymph % (Auto) 5.8 L, [place] % (Auto) 9.6, Eos % (Auto) 0.1, Baso % (Auto) 0.4, Absolute Neuts (auto) 9.3 H, Absolute Lymphs (auto) 0.65 L, Nucleated RBC % 0, Differential Comment SCANNED, Sodium 139, Potassium 3.7, Chloride 110 H, Carbon Dioxide 25.0, Anion Gap 4 L, BUN 26 H, Creatinine 0.95, Estim Creat Clear Calc 73.54, Est GFR (MDRD) Af Amer 99, Est GFR (MDRD) Non-Af 82, BUN/Creatinine Ratio 27.5 H, Glucose 131 H, Calcium 7.8 L, Phosphorus 1.6 L, Magnesium 2.0 Micro: Microbiology 12/14/23 13:52 Urine Catheter - Catheter Urine Culture - Final Culture exhibits no growth. 12/14/23 11:50 Blood Culture (Wb) - Right Forearm Blood Culture - Final No growth. 12/14/23 11:30 Blood Culture (Wb) - Anticubital Right Blood Culture - Final No growth. Physical Exam GI GI Narrative: Abdomen- soft, tenderness over top of the incision. Hypoactive bowel sounds throughout. Incision with dressing over top. No active bleeding noted. Ostomy intact with healthy, pink tissue throughout Assessment & Plan Assessment/Plan (1) Sigmoid volvulus: (2) Bowel obstruction: QUALIFIERS: Intestinal obstruction type: volvulus Qualified Code(s): K56.2 - Volvulus PLAN: Plan I am following this patient in conjunction with Dr. Ma in Dr. Kirkland's absence. Continue IV antibiotics Encourage patient to sit in the chair this morning Continue with Ayala in place Patient may transfer out of ICU from a surgical standpoint if medically stable We will place patient on sips and chips We will continue to monitor his patient Charges/Coding Visit Charges Inpatient E&M: 19201 Subs Hosp L1 (post-op; no charge)
[2023-12-17] MEDS: Pantoprazole Sodium 40 MG in 0.9% Normal Saline (100mL MB+) 100 ML 330 MG IV (08:00)
[2023-12-17] MEDS: Carbidopa/Levodopa 25/100 Tablet PO ×3 (08:02→15:53)
--- NOTE | 2023-12-17 08:35 | PCM.PN.HOSP ---
Reason for Visit Reason for Visit: Diagnoses Elevated white blood cell count, unspecified (12/13/23) Volvulus (12/13/23) Fever, unspecified (12/13/23) Objective Data Objective Data Vital Signs: Vital Signs Temp Pulse Resp BP Pulse Ox O2 Del Method O2 Flow Rate 99.6 F H 83 15 132/75 H 92 Room Air 2 12/17/23 07:00 12/17/23 07:00 12/17/23 07:00 12/17/23 07:00 12/17/23 07:00 12/17/23 07:00 12/16/23 05:00 FiO2 95 12/16/23 11:30 Oxygen Flow Rate (L/min) 2 Oxygen Delivery Method Room Air Weight: 199 lb 8.293 oz Body Mass Index (BMI) 28.5 Intake & Output: Intake and Output for Last 24 Hours 12/15/23 12/16/23 12/17/23 23:59 23:59 23:59 Intake Total 3844.92 / 3844.92 3114.83 / 3114.83 250 / 250 Output Total 1310 / 1310 1250 / 1250 700 / 700 Balance 2534.92 / 2534.92 1864.83 / 1864.83 -450 / -450 Lab / Micro Data 12/17/23 02:10 12/17/23 02:10 Labs: Laboratory Results - last 24 hr 12/13/23 12:40: Diff Path Review Reviewed 12/14/23 05:00: Diff Path Review Reviewed 12/16/23 03:20: Total Bilirubin 1.80 H, Direct Bilirubin 0.53 H, AST 19, ALT 21, Alkaline Phosphatase 38 L, Total Protein 4.6 L, Albumin 1.8 L, Globulin 2.8 12/17/23 02:10: WBC 11.3 H, RBC 3.62 L, Hgb 11.4 L, Hct 33.3 L, MCV 92.0, MCH 31.5, MCHC 34.2, RDW Std Deviation 49.6 H, RDW Coeff of Ann 14.7 H, Plt Count 196, MPV 10.2, Immature Gran % (Auto) 1.600 H, Neut % (Auto) 82.5 H, Lymph % (Auto) 5.8 L, Hill % (Auto) 9.6, Eos % (Auto) 0.1, Baso % (Auto) 0.4, Absolute Neuts (auto) 9.3 H, Absolute Lymphs (auto) 0.65 L, Nucleated RBC % 0, Differential Comment SCANNED, Sodium 139, Potassium 3.7, Chloride 110 H, Carbon Dioxide 25.0, Anion Gap 4 L, BUN 26 H, Creatinine 0.95, Estim Creat Clear Calc 73.54, Est GFR (MDRD) Af Amer 99, Est GFR (MDRD) Non-Af 82, BUN/Creatinine Ratio 27.5 H, Glucose 131 H, Calcium 7.8 L, Phosphorus 1.6 L, Magnesium 2.0 Micro: Microbiology 12/14/23 13:52 Urine Catheter - Catheter Urine Culture - Final Culture exhibits no growth. 12/14/23 11:50 Blood Culture (Wb) - Right Forearm Blood Culture - Final No growth. 12/14/23 11:30 Blood Culture (Wb) - Anticubital Right Blood Culture - Final No growth. Physical Exam Narrative Seen and examined Low-grade fever. Tmax 100.4 Fahrenheit but currently afebrile. Patient making urine. Positive fluid balance. Patient has swelling in the legs and upper extremities. Abdominal distention better. Colostomy functioning with liquid feces. environmental monitoring technician shows sinus rhythm with occasional PVCs. Physical exam: General: Alert, Oriented x3, Cooperative but fatigued and weak HEENT: Atraumatic, PERRLA, EOMI, Normocephalic Oral: Oral mucosa moist. Neck: Supple, No JVD, Negative Carotid Bruits Chest wall/Lungs: Shallow breathing. Air entry diminished in bilateral lung bases. No crepitation/rhonchi Cardiovascular: Sinus rhythm, normal S1, Normal S2, No M/G/R. Abdomen:Soft, postop mild distention and tenderness surgical dressing dry. Bowel sounds sluggish. Colostomy functioning with liquid yellowish feces : Oliguria resolved. Ayala catheter. Slight yellowish urine. No dysuria. No renal angle tenderness. No suprapubic tenderness. Extremities: Bilateral lower and upper extremity edema, Capillary Refill Less than 3 Seconds Skin: No rashes, No breakdown Musculoskeletal: No Tenderness to Palpation of Joints or Extremities. Moderate muscle rigidity at knee and hip joints. History of Parkinson disease Neurological: Cranial nerves II-XII grossly intact, DTR 2+/4. No acute focal neurological deficit. Psych/Mental Status: Flat affect. Assessment & Plan Assessment/Plan (1) Sigmoid volvulus: PLAN: Plan The patient is a 78 y/o M was admitted with sudden onset of Was admitted with sudden onset abdominal pain periumbilical and hypogastric in location, nausea vomiting, dark in color started 10 PM day before admission. No fever. Patient denies any prior history of bowel obstruction or abdominal pain like this. #1. Sigmoid volvulus, complicated with total colon distention, ileus and lactic acidosis with suspected colonic infection/colitis: Patient admitted under surgical service to the ICU after colonoscopy. Abdomen pelvis/CT was done prior to that. Shows mild distention of colon down to the region of sigmoid colon, up to 10 cm. Patient reported some passage of flatus. Has a rectal tube and NG tube. IV fluid 500 mL Ringer lactate ordered as patient did not had significant urine output. Heart rate and blood pressure are controlled. No fever. Discussed with the surgeon and plan to maintain on his current conservative measures to avoid total colectomy with high risk of surgery. Patient on IV PPI. Patient on IV Zosyn. Mild improvement in leukocytosis. Platelet count 214,000. Patient had colonoscopy on 12/13/2023. Sigmoid volvulus was found though colon prep was poor. Diverticulosis in RS colon and sigmoid colon. Partial decompression of volvulus achieved. No repeat colonoscopy recommended. Perioperative risk evaluation: Patient denies prior chronic cardiac or pulmonary disease including NC, cardiac stent, angina, CHF or A-fib or valvular heart disease. Denies COPD. No prior history of smoking or nicotine use or chronic alcohol use. Patient has Parkinson disease but baseline musculoskeletal function unclear as patient is very sick now. Overall, patient is high risk. Incentive spirometry. 12/15: Patient is positive fluid balance about 5.6 L and heart rate in low 100s therefore decrease IV fluid to 75 mill per hour. Urine output is improving. Abdominal distention better but is still bowel sound slow. 12/16: Low-grade fever, Tmax 100.3 Fahrenheit, BP maintained, shallow breathing on 2 L of oxygen. Patient went for exploratory laparotomy, small bowel resection, 6 cm to jejunum was rejoined with stapled qhva-ce-hbkh anastomosis , Repair of inadvertent small bowel enterotomy, sigmoid colectomy with creation of end colostomy. Decrease IV fluid to 75 mill per hour. 12/17: 1100 mL urine output 850 mill and colostomy output yesterday and 500 mL at 200 mL respectively today. Positive fluid balance about 8.6 L. Colostomy functioning. 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 Massively dilated sigmoid colon transitioning to decompressed/deeply adhered distal sigmoid colon within the pelvis #2. MANPREET on Chronic Kidney Disease Stage II : Most likely prerenal due to sigmoid volvulus/ileus and third space: Ayala catheterization. Strict intake and output. Admission BUN/creatinine 29/1.33, today BUN/creatinine 30/1.11 BUN/creatinine ratio is 27. UA shows positive nitrite, ketones 5, bilirubin 1 LE 25 WBC 0-5 cells, bacteria 0. Patient on IV antibiotics. 12/15: Creatinine 0.88. BUN 25. Kidney function improving and urine output also adequate. K3.5, phosphorus 2.3, hypophosphatemia. IV potassium phosphate ordered. 12/16: BUN/creatinine 31/1.21 little elevated, as compared to yesterday probably from surgical distress. Maintain adequat an effective volume. Serum magnesium more than 2 and phosphorus around 4.0 12/17: BUNs/creatinine 26/0.95. MANPREET resolved. Hypophosphatemia, phosphorus 1.6, magnesium 2.0. Potassium 3.7, bicarb 25; electrolytes otherwise normal range. Urine culture shows no growth. 3. Mild hyperbilirubinemia with normal transaminases, hyperbilirubinemia: Probably due to acute event of sigmoid volvulus ileus and possible secondary colon infection. Admission glucose 179. A1c 5.5 probably stress response hyperglycemia. Diabetes mellitus or prediabetes ruled out. 12/15: Improvement in total bilirubin 2.8. Transaminases and alkaline phosphatase normal. 12/16: Liver chemistry ordered 12/17: Improvement in TB 1.8, direct 0.5. Low ALP, hypoalbuminemia, albumin 1.8 from acute severe malnutrition. #4. Parkinson's disease: hold oral medications in view of ileus with impaired bowel absorption 12/15: Patient extremities are rigid therefore resume Sinemet and hold aspiration to get absorbed. #5. DVT Prophylaxis: Recommend at least SCDs, chemoprophylaxis per Surgery discretion. #6. CODE status: Patient HCPOA is his daughter who is present and living will is currently in place. Discussed CODE status at length including difference between FULL code, DNR-CCA and DNR-CC status. Following discussions about the differences in these status, requested Full Code status. Advanced Care Charges/Coding Visit Charges Inpatient E&M: 98935 Subs Hosp L3
--- NOTE | 2023-12-17 09:15 | CASEMGMT ---
SHARAN MORROW NOTE: Therapy notes reviewed from yesterday. Pt is very weak and required max assist of 2 w/attempt to stay at EOB. RN CM to room. Pt resting in bed. Pt's daughter, Carmella, and son, @ bedside. Discussed therapy and recommendations. They are interested in SNF. A list of SNF providers including quality and resource use data and consistent with the patient?s preferred geographic region, medical needs, and insurance network were provided from the [facility]. SHARAN MORROW back to room after family had time to discuss things over w/pt and their 1st choice is [facility]. DUGLAS Wilkerson, made aware. Cuca ANDRES RN CM
[2023-12-17] MEDS: Potassium Phosphate 21 MM in 0.9% Normal Saline (250mL Bag) 250 ML 84 MM IV (09:16)
[2023-12-17] MEDS: Amantadine 100 MG Capsule PO (10:16)
[2023-12-17] MEDS: Vancomycin Trough/Random Due 1 LAB MC (10:16)
--- NOTE | 2023-12-17 10:58 | WOUNDNOTE ---
wound/stoma photo: abdomen
[2023-12-17 11:13] LABS: Vancomycin, Trough Level 17.1 ug/mL (5.0-15.0)
--- NOTE | 2023-12-17 11:41 | PCM.RX.CS ---
Consult Antibiotic Management Pharmacy has been consulted to manage selected antibiotic: Vancomycin Type of Intervention Type of Consult: Follow-up Suspected Infection Suspected Infection: Other Labs Labs: Sodium 139 mmol/L (136-145) 12/17/23 02:10 Potassium 3.7 mmol/L (3.5-5.1) 12/17/23 02:10 Chloride 110 mmol/L (98-107) H 12/17/23 02:10 Carbon Dioxide 25.0 mmol/L (21.0-32.0) 12/17/23 02:10 Anion Gap 4 (5-15) L 12/17/23 02:10 BUN 26 mg/dL (7-18) H 12/17/23 02:10 Creatinine 0.95 mg/dL (0.70-1.30) 12/17/23 02:10 Est GFR (MDRD) Af Amer 99 mL/min (>60) 12/17/23 02:10 Est GFR (MDRD) Non-Af 82 mL/min (>60) 12/17/23 02:10 BUN/Creatinine Ratio 27.5 RATIO (10-20) H 12/17/23 02:10 Glucose 131 mg/dL (74-106) H 12/17/23 02:10 Vancomycin Trough 17.1 ug/mL (5.0-15.0) H 12/17/23 10:15 Microbiology Microbiology: Microbiology 12/14/23 13:52 Urine Catheter - Catheter Urine Culture - Final Culture exhibits no growth. 12/14/23 11:50 Blood Culture (Wb) - Right Forearm Blood Culture - Final No growth. 12/14/23 11:30 Blood Culture (Wb) - Anticubital Right Blood Culture - Final No growth. Goal Trough Goal Trough: 15-20 mcg/mL Pharmacy Plan for Drug Dosing Pharmacy Plan for Drug Dosing: VANCOMYCIN LEVEL RECEIVED Current Vancomycin Dose: 1000mg q12h (00,12) Number of Doses Received: x3 of current dose Vancomycin Level: 17.1 Hours Since Last Dose: 10 hours since last dose Renal Function: SrCr 0.95 Renal Function Trend: SrCr improving (was 1.11 on 12/14) Lab/Micro: Vancomycin Plan/Comments: none Pending Level: 12/19/23 at 2330 Pharmacy Service will continue to monitor and adjust dosing as required. Follow-Up Labs Follow-Up Labs: Trough: Vancomycin (12/19/23 at 2330)
[2023-12-17] MEDS: Ensure Plus High Protein 120 ML LIQUID PO ×2 (15:54→19:28)
[2023-12-17] MEDS: Azithromycin 500 MG in Dextrose 5%-Water (250mL Bag) 250 ML 250 MG IV (19:28)
[2023-12-17] MEDS: CARBIDOPA/LEVODOPA CR 50/200 Tablet PO (19:28)
[2023-12-18] VITALS: BP 124/73; PULSE 78; PULSE 94; RESP 14; RESP 18; TEMP 37.4; O2SAT 96; O2SAT 98
[2023-12-18] MEDS: Vancomycin IV 1,000 MG/200 ML BAG 200 MG IV (00:20)
[2023-12-18] MEDS: HYDROmorphone 0.5 MG/0.5 ML SYRINGE IV ×3 (03:57→19:54)
[2023-12-18 04:00] VITALS: BP 167/86; PULSE 85; RESP 15; TEMP 37.6; O2SAT 93
[2023-12-18] MEDS: Piperacil/Tazobactam 3.375 GM in 0.9% Normal Saline (50mL MB+) 50 ML IV ×3 (04:52→20:32)
[2023-12-18 06:00] VITALS: BMI 28.8
--- NOTE | 2023-12-18 07:54 | PN.HOSP_ITS ---
Reason for Visit Reason for Visit: Abdominal pain/nausea/vomiting Subjective Subjective Mr. Carver is a 78-year-old white male who presented to the emergency department at [facility] on 12/13/2023 with sudden onset abdominal pain and associated nausea and vomiting that began at 10 PM the day prior. He had not been able to do anything besides drink a little bit of water on the day of presentation and felt significant pain and pressure at the time of admission. He noted minimal passage of flatus and no bowel movement. On presentation he josé d a leukocytosis at 24.[address] scan of the abdomen pelvis was concerning for sigmoid volvulus and colonic distention up to 10 cm. He was admitted to general surgery service and colonoscopy was performed later that day by Dr. Chen and showed poor prep, diverticulosis in the rectosigmoid colon and volvulus with partial decompression achieved during colonoscopy, the mucosa did appear to be somewhat ischemic and there was concern for ischemic colitis. Hospital medicine was consulted for management of his chronic medical issues while hospitalized. He was initially treated with supportive care trying to minimize the need for surgical intervention however he did require surgical intervention and was taken to the OR on 12/15/2023 at which time a small bowel resection with a [id number] anastomosis as well as a sigmoid colectomy with creation of end colostomy was performed. He was maintained on empiric antibiotics given his markedly elevated white count and concern for colitis on admission. Blood cultures were performed on admission and were no growth. Urine culture was performed and had no growth. Patient has since developed good on output from his ostomy and his diet was advanced to full liquids along with Ensure high-protein and the patient has been transferred to the medical floor however is still in the ICU awaiting medical bed availability. Patient has no complaints. States his pain is well-controlled. Ostomy output is good. Had no issues with full liquid diet yesterday. Objective Data Objective Data Vital Signs: Vital Signs Temp Pulse Resp BP Pulse Ox O2 Del Method O2 Flow Rate 99.6 F H 85 15 167/86 H 93 Room Air 2 12/18/23 04:00 12/18/23 04:00 12/18/23 04:00 12/18/23 04:00 12/18/23 04:00 12/18/23 04:00 12/16/23 05:00 FiO2 95 12/16/23 11:30 Oxygen Flow Rate (L/min) 2 Oxygen Delivery Method Room Air Weight: 91.3 kg Body Mass Index (BMI) 28.8 Intake & Output: Intake and Output for Last 24 Hours 12/16/23 12/17/23 12/18/23 23:59 23:59 23:59 Intake Total 3114.83 / 3114.83 2772 / 2892 420 / 420 Output Total 1250 / 1250 1400 / 1750 1100 / 1100 Balance 1864.83 / 1864.83 1372 / 1142 -680 / -680 Lab / Micro Data 12/18/23 08:35 12/18/23 08:35 Labs: Laboratory Results - last 24 hr 12/17/23 10:15: Vancomycin Trough 17.1 H Micro: Microbiology 12/14/23 13:52 Urine Catheter - Catheter Urine Culture - Final Culture exhibits no growth. 12/14/23 11:50 Blood Culture (Wb) - Right Forearm Blood Culture - Final No growth. 12/14/23 11:30 Blood Culture (Wb) - Anticubital Right Blood Culture - Final No growth. Physical Exam Const alert, oriented x3 and no apparent distress HEENT head/scalp atraumatic and moist oral mucous membranes HEENT Narrative: No thrush Resp normal respiratory effort, no retractions, no use of accessory muscles and clear to auscultation bilaterally Auscultation: Negative for crackles, rhonchi or wheezes Cardio regular rate, regular rhythm, S1 normal heart sound, S2 normal heart sound, no murmurs, no rub, no gallops and no clicks GI normal to inspection, nondistended, normoactive bowel sounds, soft to palpation and non-tender GI Narrative: Bowel sounds are good, ostomy is present with good output in stoma is pink Extremity Extremity Narrative: 1+ bilateral lower extremity edema with trace upper extremity edema, no clubbing or cyanosis Neuro oriented x3, moves all extremities and no focal motor deficits Neuro Narrative: Bradykinesia noted, speech is slow and deliberate with slowed response times likely related to his Parkinson's Speech: speech normal Psych Psych Narrative: Affect is slightly flat however patient interacts appropriately Assessment & Plan Assessment/Plan (1) Leukocytosis: (2) Nausea & vomiting: (3) Bowel obstruction: QUALIFIERS: Intestinal obstruction type: volvulus Qualified Code(s): K56.2 - Volvulus (4) Sigmoid volvulus: (5) Edema: PLAN: Plan Sigmoid volvulus -Postop day 3 for exploratory laparotomy with small bowel resection and sigmoid colectomy with creation of end colostomy. -Diet was advanced to full liquids yesterday -Ensure was added for protein supplementation -Advance diet per general surgery recommendations -Pain management as per surgery recommendations -Antibiotics per primary service--> General surgery has patient on Zosyn for now -Lasix 20 mg IV x 1 dose for edema as patient is 9+ liters positive for his hospital stay -Discussed with Dr. Gustavo thomas to discontinue vancomycin and azithromycin Lactic acidosis -Resolved Likely related related to sigmoid volvulus Elevated blood pressure -Blood pressures appear to be labile and somewhat normal at times however currently elevated and seems to fluctuate -Will monitor and add something for blood pressure if consistently elevated, o gutierrez would recommend outpatient follow-up MANPREET on CKD stage II -Serum creatinine had returned to baseline -IV fluids were discontinued as patient is now on full liquid diet -Continue to monitor as needed Mild hyperbilirubinemia -Suspect related to acute illness -Bilirubin had trended down Parkinson's disease -Continue Sinemet -Continue amantadine DVT prophylaxis -SCDs -Chemoprophylaxis per general surgery CODE STATUS -Full code is verified on admission Charges/Coding Visit Charges Inpatient E&M: 61481 Subs Hosp L2
[2023-12-18 08:00] VITALS: BP 135/81; PULSE 75; RESP 15; TEMP 37.4; O2SAT 96
[2023-12-18] MEDS: Carbidopa/Levodopa 25/100 Tablet PO ×3 (08:12→16:16)
[2023-12-18] MEDS: Furosemide 20 MG/2 ML VIAL IV ×2 (08:12→11:27)
--- NOTE | 2023-12-18 08:18 | PCM.PN.SRG ---
Subjective Subjective Patient evaluated resting comfortably in bed. Patient notes he had a really good night. He denies nausea, vomiting. He denies any belching. He notes incisional discomfort, no true abdominal pain. He is having good stoma output. He is passing air within the bag. Objective Data Objective Data Vital Signs: Vital Signs Temp Pulse Resp BP Pulse Ox O2 Del Method O2 Flow Rate 99.6 F H 85 15 167/86 H 93 Room Air 2 12/18/23 04:00 12/18/23 04:00 12/18/23 04:00 12/18/23 04:00 12/18/23 04:00 12/18/23 04:00 12/16/23 05:00 FiO2 95 12/16/23 11:30 Oxygen Flow Rate (L/min) 2 Oxygen Delivery Method Room Air Weight: 201 lb 4.513 oz Body Mass Index (BMI) 28.8 Intake & Output: Intake and Output for Last 24 Hours 12/16/23 12/17/23 12/18/23 23:59 23:59 23:59 Intake Total 3114.83 / 3114.83 2772 / 2892 420 / 420 Output Total 1250 / 1250 1400 / 1750 1100 / 1100 Balance 1864.83 / 1864.83 1372 / 1142 -680 / -680 Lab / Micro Data 12/18/23 08:35 12/18/23 08:35 Labs: Laboratory Results - last 24 hr 12/17/23 10:15: Vancomycin Trough 17.1 H Micro: Microbiology 12/14/23 13:52 Urine Catheter - Catheter Urine Culture - Final Culture exhibits no growth. 12/14/23 11:50 Blood Culture (Wb) - Right Forearm Blood Culture - Final No growth. 12/14/23 11:30 Blood Culture (Wb) - Anticubital Right Blood Culture - Final No growth. Physical Exam GI GI Narrative: Abdomen- soft, tender near incision site. Slightly more distended this morning. Air within the stoma bag and moderate amount of brown stool noted. Positive bowel sounds. Assessment & Plan Assessment/Plan (1) Sigmoid volvulus: (2) Bowel obstruction: QUALIFIERS: Intestinal obstruction type: volvulus Qualified Code(s): K56.2 - Volvulus PLAN: Plan I am following this patient in conjunction with Dr. Kirkland. He has also independently evaluated this patient. Patient overall improving well Plan to transfer patient to regular med/surg floor pending bed availability today KUB ordered to assess distention Plan to pull the Ayala later today pending no clots are continuing to be seen within the Ayala tubing and renal labs Labs pending Continue to encourage patient in the chair and ambulating Plan to give a dose of Lasix this morning We will continue to monitor this patient Charges/Coding Visit Charges Inpatient E&M: 89077 Subs Hosp L1 (no charge; post-op)
[2023-12-18 08:51] LABS: Absolute Lymphocyte Count 0.71 X10^3/uL (0.83-4.51); Absolute Neutrophil Count 7.2 X10^3/uL (2.0-7.7); Basophil# 0.08 X10^3/uL; Basophil% 0.9 % (0-1); Eosinophil# 0.04 X10^3/uL; Eosinophils% 0.4 % (0-5); Hematocrit 38.2 % (40-54); Hemoglobin 13.1 g/dL (13.0-16.5); Lymphocyte # 0.71 X10^3/ul (0.83-4.51); Lymphocyte % 7.9 % (19-41); Mean Corp Hgb Conc 34.3 g/dL (32-36); Mean Corpuscular Hgb 32.4 pg (27.0-32.0); Mean Corpuscular Volume 94.6 fL (80-94); Mean Platelet Vol. 10.4 fl (6.2-12.0); Monocyte# 0.75 X10^3/uL; Monocyte% 8.4 % (0-10); NRBC Flagged by Analyzer 0 % (0-5); Neutrophil # 7.22 X10^3/uL (2.7-7.7); Neutrophil % 80.4 % (47-70); Platelet Count 205 K/mm3 (150-450); RBC Distribution Width CV 14.7 % (11.6-14.6); RBC Distribution Width SD 51.4 fl (35.1-43.9); Red Blood Count 4.04 M/mm3 (4.6-6.2)
--- NOTE | 2023-12-18 09:00 | RAD_ITS ---
STUDY: X-RAY - ABDOMEN/PELVIS REASON FOR EXAM: Male, 78 years old. post abdomen surgery TECHNIQUE: Single AP view of the abdomen / pelvis. COMPARISON: Comparison is made with prior study dated December 15, 2023. FINDINGS: Surgical clips are seen in the mid and lower abdomen. Fecal material is seen throughout the colon. Gas-filled small bowel loops although no evidence of bowel obstruction. A catheter is seen within the bladder. The visualized liver, spleen and kidneys are grossly normal in size and morphology. Normal soft tissue structures. There are diffuse degenerative changes of the visualized lumbar spine. RAD/Abdomen Single View (Portable) IMPRESSION: Status post abdominal surgery. Nonspecific bowel gas pattern. Electronically Signed: Brady Mackenzie MD at 11:09 EST ,
[2023-12-18 09:01] LABS: Anion Gap 4 (5-15); BUN 18 mg/dL (7-18); BUN/Creat Ratio 22.8 RATIO (10-20); Calcium,Total 8.5 mg/dL (8.5-10.1); Chloride 108 mmol/L (98-107); Creatinine, Serum 0.79 mg/dL (0.70-1.30); EST Glomerular Filtration Rate 101 mL/min (>60); Est Glom Filt Rate - Afr Amer 123 mL/min (>60); Estimated Creatinine Clearance 87.85 ml/min; Glucose 112 mg/dL (74-106); Potassium 3.6 mmol/L (3.5-5.1); Sodium Level 137 mmol/L (136-145)
--- NOTE | 2023-12-18 10:07 | WOUNDNOTE ---
Colostomy appliance intact. no sign of leakage noted. appliance emptied for 150cc's unformed brown stool. walked patient through how to empty the appliance and clean the end of the bag. pt did not really watch this nurse at this time. will work with patient more on this when he is up getting around. plan is for patient to go to SNF at discharge. did discuss with daughter. will monitor. pt appeciative of care.
[2023-12-18] MEDS: Pantoprazole Sodium 40 MG in 0.9% Normal Saline (100mL MB+) 100 ML 330 MG IV (10:44)
[2023-12-18] MEDS: Ensure Plus High Protein 120 ML LIQUID PO (10:45)
[2023-12-18] MEDS: 0.9% Saline Lock 10 ML Syringe IV (11:27)
--- NOTE | 2023-12-18 12:47 | CASEMGMT ---
Social Work Referral made to TCU and they are able to accept pt when medically ready. Physician updated and pt is not ready for discharge today. RNCM updated and to notify pt's dgt. Plan: TCU, when medically ready JOAN Sanchez
--- NOTE | 2023-12-18 13:34 | CASEMGMT ---
SHARAN MORROW NOTE: SHARAN MORROW to room and notified pt that TCU is able to accept him when he is medically ready. Call placed to Carmella/shauna and she was also made aware. Cuca NUNEZN SHARAN MORROW
[2023-12-18 14:00] VITALS: BP 113/75; PULSE 85; RESP 17; TEMP 37.8; O2SAT 96
[2023-12-18 14:48] VITALS: O2SAT 94
[2023-12-18] MEDS: oxyCODONE 5 MG Tablet PO (16:16)
[2023-12-18] MEDS: Carvedilol 6.25 MG Tablet PO (18:51)
[2023-12-18 20:00] VITALS: BP 156/97; PULSE 96; RESP 19; TEMP 36.7; O2SAT 96
[2023-12-18] MEDS: Heparin Injection (Vial) 5,000 UNIT/ML VIAL 5000 UNIT SC (20:32)
[2023-12-18] MEDS: CARBIDOPA/LEVODOPA CR 50/200 Tablet PO (20:32)
[2023-12-19] MEDS: HYDROmorphone 0.5 MG/0.5 ML SYRINGE IV (01:40)
[2023-12-19] MEDS: oxyCODONE 5 MG Tablet PO ×3 (01:40→23:12)
[2023-12-19 02:00] VITALS: BP 134/87; PULSE 78; RESP 15; TEMP 37.1; O2SAT 96
[2023-12-19] MEDS: Piperacil/Tazobactam 3.375 GM in 0.9% Normal Saline (50mL MB+) 50 ML IV ×3 (05:20→21:14)
[2023-12-19] MEDS: Heparin Injection (Vial) 5,000 UNIT/ML VIAL 5000 UNIT SC ×3 (05:20→21:13)
[2023-12-19 06:00] VITALS: BMI 28.7
[2023-12-19 06:49] LABS: Absolute Lymphocyte Count 0.71 X10^3/uL (0.83-4.51); Absolute Neutrophil Count 8.5 X10^3/uL (2.0-7.7); Basophil# 0.08 X10^3/uL; Basophil% 0.8 % (0-1); Eosinophil# 0.05 X10^3/uL; Eosinophils% 0.5 % (0-5); Hematocrit 35.3 % (40-54); Hemoglobin 12.1 g/dL (13.0-16.5); Lymphocyte # 0.71 X10^3/ul (0.83-4.51); Lymphocyte % 6.9 % (19-41); Mean Corp Hgb Conc 34.3 g/dL (32-36); Mean Corpuscular Hgb 31.9 pg (27.0-32.0); Mean Corpuscular Volume 93.1 fL (80-94); Mean Platelet Vol. 10.8 fl (6.2-12.0); Monocyte# 0.79 X10^3/uL; Monocyte% 7.7 % (0-10); NRBC Flagged by Analyzer 0 % (0-5); Neutrophil # 8.51 X10^3/uL (2.7-7.7); Neutrophil % 82.4 % (47-70); Platelet Count 250 K/mm3 (150-450); RBC Distribution Width CV 14.6 % (11.6-14.6); RBC Distribution Width SD 49.9 fl (35.1-43.9); Red Blood Count 3.79 M/mm3 (4.6-6.2); White Blood Count 10.3 K/mm3 (4.4-11.0)
[2023-12-19 06:57] LABS: Anion Gap 5 (5-15); BUN 21 mg/dL (7-18); BUN/Creat Ratio 24.3 RATIO (10-20); Chloride 104 mmol/L (98-107); Creatinine, Serum 0.86 mg/dL (0.70-1.30); EST Glomerular Filtration Rate 91 mL/min (>60); Est Glom Filt Rate - Afr Amer 110 mL/min (>60); Estimated Creatinine Clearance 81.56 ml/min; Glucose 114 mg/dL (74-106); Phosphorus 3.6 mg/dL (2.5-4.9); Potassium 3.5 mmol/L (3.5-5.1); Sodium Level 139 mmol/L (136-145)
[2023-12-19 08:00] VITALS: BP 129/84; PULSE 75; RESP 24; TEMP 36.2; O2SAT 94
[2023-12-19] MEDS: Carbidopa/Levodopa 25/100 Tablet PO ×3 (08:03→17:18)
[2023-12-19] MEDS: Amantadine 100 MG Capsule PO (09:55)
[2023-12-19] MEDS: Tamsulosin HCl 0.4 MG Capsule PO (09:55)
[2023-12-19] MEDS: Carvedilol 6.25 MG Tablet PO ×2 (09:58→21:13)
--- NOTE | 2023-12-19 10:15 | PN.SURG_ITS ---
Subjective Subjective Patient seen and examined during AM rounds. He is recently returned to his room from a swallow study with speech therapy. He shares that he felt the study went well. He reports that he is feeling better today and more alert. He does confirm nursing reports that he had some pelvic pain overnight and was found to have some urinary retention occasioning Ayala replacement. Objective Data Objective Data Vital Signs: Vital Signs Temp Pulse Resp BP Pulse Ox O2 Del Method O2 Flow Rate 97.1 F L 75 24 H 129/84 H 94 Room Air 2 12/19/23 08:00 12/19/23 08:00 12/19/23 08:00 12/19/23 08:00 12/19/23 08:00 12/19/23 08:00 12/16/23 05:00 FiO2 95 12/16/23 11:30 Oxygen Flow Rate (L/min) 2 Oxygen Delivery Method Room Air Weight: 200 lb 6.403 oz Body Mass Index (BMI) 28.7 Intake & Output: Intake and Output for Last 24 Hours 12/17/23 12/18/23 12/19/23 23:59 23:59 23:59 Intake Total 2772 / 2892 630 / 630 87.08 / 87.08 Output Total 1400 / 1750 6300 / 6300 250 / 250 Balance 1372 / 1142 -5670 / -5670 -162.92 / -162.92 Lab / Micro Data 12/19/23 05:25 12/19/23 05:25 Labs: Laboratory Results - last 24 hr 12/19/23 05:25: WBC 10.3, RBC 3.79 L, Hgb 12.1 L, Hct 35.3 L, MCV 93.1, MCH 31.9, MCHC 34.3, RDW Std Deviation 49.9 H, RDW Coeff of Ann 14.6, Plt Count 250, MPV 10.8, Immature Gran % (Auto) 1.700 H, Neut % (Auto) 82.4 H, Lymph % (Auto) 6.9 L, [place] % (Auto) 7.7, Eos % (Auto) 0.5, Baso % (Auto) 0.8, Absolute Neuts (auto) 8.5 H, Absolute Lymphs (auto) 0.71 L, Nucleated RBC % 0, Sodium 139, Potassium 3.5, Chloride 104, Carbon Dioxide 30.0, Anion Gap 5, BUN 21 H, Cr eatinine 0.86, Estim Creat Clear Calc 81.56, Est GFR (MDRD) Af Amer 110, Est GFR (MDRD) Non-Af 91, BUN/Creatinine Ratio 24.3 H, Glucose 114 H, Calcium 8.0 L, Phosphorus 3.6 Micro: Microbiology 12/14/23 11:50 Blood Culture (Wb) - Right Forearm Blood Culture - Final No growth in 5 days. 12/14/23 11:30 Blood Culture (Wb) - Anticubital Right Blood Culture - Final No growth in 5 days. 12/14/23 13:52 Urine Catheter - Catheter Urine Culture - Final Culture exhibits no growth. Radiography Diagnostic Testing: Radiology Impression KUB X-Ray 12/18/23 09:00 IMPRESSION: Status post abdominal surgery. Nonspecific bowel gas pattern. Electronically Signed: Brady Mackenzie MD at 11:09 EST , Physical Exam Const oriented x3 and no apparent distress Resp normal respiratory effort GI GI Narrative: Patient's abdomen is minimally distended and initially he has a colostomy appliance intact to the left upper quadrant as well as a dressing over his midline incision. These are both taken down with wound and ostomy nursing. Patient's stoma is examined and appears well-perfused but mildly edematous. Patient's laparotomy incision remains approximated with skin caitlyn and without redness or drainage. There is no tenderness to palpation Assessment & Plan Assessment/Plan (1) Sigmoid volvulus: PLAN: Patient is a 78-year-old male, with past medical history of Parkinson's, who presents with a 17-hour history of acute onset abdominal pain and nausea/vomiting. Diagnostic workup shows evidence of sigmoid volvulus. He is status post endoscopic colonic decompression with gastroenterology 12/13/23. However, the significant stool burden precluded complete decompression of the colon but a rectal tube was left in place proximal to the area of volvulus. Patient is postoperative day 4 from exploratory laparotomy with small bowel resection as well as sigmoid colectomy and creation of end colostomy. He is d oing well and having minimal pain. He confirms that he feels like he is about back to his baseline abdominal girth. Unfortunately he did exhibit evidence of aspiration yesterday and is awaiting the final analysis of his swallow function. Apparently he also had evidence of urinary retention overnight and required replacement of his Ayala catheter. He does report that he is feeling better today. Neuro: As needed acetaminophen and oxycodone, continue home Parkinson's meds per hospitalist service Pulm/CV: Improved anasarca after 6 L urine output following Lasix administration yesterday, patient denies any respiratory difficulty, patient is exhibiting normal blood pressures FEN/GI: Continue close monitoring of electrolytes given large fluid shifts, patient's creatinine is now within normal limits, patient currently n.p.o. per speech therapy the patient's colostomy is working well, Protonix, wound and ostomy nursing consult : Ayala catheter for Ayala retention. Flomax started yesterday. May consider removal in another couple days. Heme/ID: Continue to trend CBC, continue empiric IV Zosyn with tentative stop date tomorrow Endo: Continue glucose monitoring during limited nutritional state Proph: SCDs Dispo: [facility], however bed availab ility has precluded this transfer. Charges/Coding Visit Charges Inpatient E&M: 87118 Subs Hosp L2
--- NOTE | 2023-12-19 10:15 | WOUNDNOTE ---
removed the ostomy appliance to assess the stoma and peristomal skin. patient had approx 100cc's soft brown unformed stool in the appliance. stoma remains well budded and pink. stoma still edematous. peristomal skin is intact. cleansed skin with warm water. pat dry. applied a new 2 piece flat Mel appliance with a small amount of stoma paste. pt tolerated well.
[2023-12-19] MEDS: Pantoprazole Sodium 40 MG in 0.9% Normal Saline (100mL MB+) 100 ML 330 MG IV (11:24)
--- NOTE | 2023-12-19 11:56 | SP.MBSS_ITS ---
Modified Barium Swallow Patient Information Study Date: 12/19/23 Study Time: 09:00 Direct Billable Minutes: 120 Total Minutes procedure & reportin Diagnosis: Parkinson's Disease G20 Referring Physician: Surjit Kirkland Reason for Referral: Objectively assess swallow function, assess risk for aspiration, and determine recommendations for least restrictive diet textures and compensatory strategies to improve safety of swallow. Medical History: PMH: CKD, Parkinson's disease Pt presented to [facility] ED on 12/13/2023 with sudden onset abdominal pain and associated nausea and vomiting that began at 10 PM the day prior. He had not been able to do anything besides drink a little bit of water on the day of presentation and felt significant pain and pressure at the time of admission. He was admitted to general surgery service for bowel obstruction and colonoscopy was performed later that day by Dr. Chen and showed poor prep, diverticulosis in the rectosigmoid colon and volvulus with partial decompression achieved during colonoscopy, the mucosa did appear to be somewhat ischemic and there was concern for ischemic colitis.? Hospital medicine was consulted for management of his chronic medical issues while hospitalized. He was initially treated with supportive care trying to minimize the need for surgical intervention however he did require surgical intervention and was taken to the OR on 12/15/2023 at which time a small bowel resection with a [id number] anastomosis as well as a sigmoid colectomy with creation of end colostomy was performed. He was transferred to ICU for further care. He is currently on a full liquid diet. ST consulted for swallowing difficulty. During BSE he presented with consistent s/s of aspiration with food/drink and was recommended for MBSS prior to diet advancement. Of note, [employer] inquired if the patient if the patient would be more appropriate for fluoroscopy assessment with use of gastrografin rather than barium due to recent bowel obstruction and Dr. Kirkland agreed. Current Diet Ordered: NPO Dentition: Natural Teeth and Missing Teeth Mental Status: WNL Respiratory Status: Oxygenating on Room Air Penetration-Aspiration Scale Penetration-Aspiration Scale: OBJECTIVE ASSESSMENT OF SWALLOW FUNCTION (QUANTITATIVE ? PER TRIAL): PENETRATION / ASPIRATION SCALE (RAI): 1 = does not enter airway 2 = enters airway/above vocal folds/ejected 3 = enters airway/above vocal folds/not ejected 4 = enters airway/contacts vocal folds/ejected 5 = enters airway/contacts vocal folds/not ejected 6 = enters airway/below vocal folds/ejected 7 = enters airway/below vocal folds/not ejected despite effort 8 = enters airway/below vocal folds/no effort VIDEOFLOROSCOPIC SCALE SCORE (RAI): Grade I = aspiration of material that has penetrated into the laryngeal vestibule, intact cough reflex Grade II = aspiration < 10 % of the bolus, intact cough reflex Grade III = aspiration of < 10 % of the bolus, reduced cough reflex or aspiration of > 10 % of the bolus, intact cough reflex Grade IV = aspiration of > 10 % of the bolus, reduced cough reflex Penetration-Aspiration Scale Score Thin Liquid via teaspoon: Result: 7= enters airways/below vocal folds/not ejected despite effort Thin Liquid via teaspoon Effortful swallow: Result: 7= enters airways/below vocal folds/not ejected despite effort Thin Liquid via small single sip: cup: Result: 6= enters airway/below vocal folds/ejected [place] Thick Liquid via teaspoon: Result: 8= enters airway/below vocal folds/no effort Honey Thick Liquid via teaspoon: Result: 2= enter airway/above vocal folds/ejected Applesauce via tsp: Result: 2= enter airway/above vocal folds/ejected Thin Liquid via small single sip: cup Chin tuck: Result: 8= enters airway/below vocal folds/no effort (decreased amount of aspiration) Thin Liquid via small single sip: cup Chin tuck Trial 2: Result: 8= enters airway/below vocal folds/no effort (decreased amount of aspiration) Thin Liquid via small single sip: cup Chin tuck Trial 3: Result: 5= enters airways/contacts vocal folds/not ejected Comment: effortful, chin tuck Oral Phase Labial Seal: No Labial Escape Tongue Control During Bolus Hold: Posterior escape of less than half of bolus Bolus Transport/Lingual Motion: Brisk tongue motion Oral Residue: Trace residue lining oral structures Pharyngeal Phase Initiation of Pharyngeal Swallow: Bolus head at posterior laryngeal surgace of epiglottis Soft Palate Elevation: No bolus between soft palate and pharyngeal wall Laryngeal Elevation: Min superior movement thyroid cart/min apprx aryte cart- epig petiole Anterior Hyoid Excursion: Partial anterior movement Epiglottic Movement: Partial inversion Laryngeal Vestibule Closure at Height of Swallow: Incomplete; narrow column of air/contrast in laryngeal vestibule Pharyngeal Stripping Wave: Present - diminished Pharyngoesophageal Segment Opening: Parital distension and partial duration; parital obstruction of flow Tongue Base Retraction: Narrow column of contrast between tongue base & post. pharyngeal wall Pharyngeal Residue: Collection of residue within or on pharyngeal structures Esophageal Phase Esophageal Clearance: Complete clearance Diagnosis/Impression Diagnosis: Moderate-Severe Oropharyngeal Dysphagia R13.12 Impression: The oral phase is primarily marked by... -Decreased bolus control with <1/2 of the bolus spilling posteriorly to the posterior laryngeal surface of the epiglottis prior to swallow onset observed with thin liquids especially. -Trace oral residue after the swallow with large sips, which mostly cleared with independent initiation of a second swallow as needed. -No cookie trial attempted d/t recommended full liquid diet. The pharyngeal phase is primarily marked by... -Decreased airway closure during the swallow due to moderately decreased laryngeal elevation, incomplete laryngeal vestibular closure, and partial anterior hyoid excursion. -Decreased tongue base retraction, diminished pharyngeal stripping wave, and partial distension of the PE segment resulting in a collection of contrast on the pharyngeal structures after the swallow. -SILENT aspiration of thin liquids by cup and nectar thick liquids by tsp. Aspiration with a reflexive cough or throat clear with thin liquids by tsp despite effortful swallow. Use of chin tuck and effortful swallow were most effective decreased amount of aspiration. Reflexive throat clear/cough was somewhat effective in clearing residues in the laryngeal vestibule. Recommendations Diet: Thin Liquids Comment: Full liquid Compensatory Strategies: Small Bites, Small Sips (CHIN TUCK AND EFFORTFUL SWALLOW), Slow Rate, Alternate bites/solids and sips/liquids, Sitting upright and Assist with verbal cues to use recommended strategies (Intermittent cough and reswallow) Supervision: Assist as needed and 1:1 Close Supervision (Feeding assistance) Recommend Repeat Modified Barium Swallow: TBD Need for Skilled Speech Therapy Services: Yes Comment: -Train the patient in use of strategies to decrease risk for aspiration. -Ongoing assessment of diet tolerance of recommended textures. [employer]ER informed the RN that he is ok to advance to soft and bite size textures once cleared by physician for solid foods. -Train the patient oropharyngeal exercise program to improve laryngeal elevation, pharyngeal motility, and swallow onset (effortful swallow, [place], Brie, CTAR). Education Completed: 1. Described result of evaluation. and 2. Pt understands evaluation & agrees with goals and treatment plan. Status Active ST Patient: Active Contact Information [facility] Speech [facility]:: Cami Adhikari M.A. [facility]? Speech-Language Pathologist?? [facility] [address]?? [place] [address]?? [email or web address]?? [phone]
--- NOTE | 2023-12-19 14:38 | PCM.PN.HOSP ---
Reason for Visit Reason for Visit: Abdominal pain/nausea/vomiting Subjective Subjective Patient with some lower abdominal discomfort overnight and was bladder scanned for 250. Ayala was replaced. Was also seen by speech therapy due to concerns with swallowing and modified barium swallow has been recommended for today. Patient was sleeping at the time of my examination but per nursing no significant issues other than the above and good ostomy output. Objective Data Objective Data Vital Signs: Vital Signs Temp Pulse Resp BP Pulse Ox O2 Del Method O2 Flow Rate 97.1 F L 75 24 H 129/84 H 94 Room Air 2 12/19/23 08:00 12/19/23 08:00 12/19/23 08:00 12/19/23 08:00 12/19/23 08:00 12/19/23 08:00 12/16/23 05:00 FiO2 95 12/16/23 11:30 Oxygen Flow Rate (L/min) 2 Oxygen Delivery Method Room Air Weight: 90.9 kg Body Mass Index (BMI) 28.7 Intake & Output: Intake and Output for Last 24 Hours 12/17/23 12/18/23 12/19/23 23:59 23:59 23:59 Intake Total 2772 / 2892 630 / 630 210.00 / 210.00 Output Total 1400 / 1750 6300 / 6300 500 / 500 Balance 1372 / 1142 -5670 / -5670 -290.00 / -290.00 Lab / Micro Data 12/19/23 05:25 12/19/23 05:25 Labs: Laboratory Results - last 24 hr 12/19/23 05:25: WBC 10.3, RBC 3.79 L, Hgb 12.1 L, Hct 35.3 L, MCV 93.1, MCH 31.9, MCHC 34.3, RDW Std Deviation 49.9 H, RDW Coeff of Nan 14.6, Plt Count 250, MPV 10.8, Immature Gran % (Auto) 1.700 H, Neut % (Auto) 82.4 H, Lymph % (Auto) 6.9 L, [place] % (Auto) 7.7, Eos % (Auto) 0.5, Baso % (Auto) 0.8, Absolute Neuts (auto) 8.5 H, Absolute Lymphs (auto) 0.71 L, Nucleated RBC % 0, Sodium 139, Potassium 3.5, Chloride 104, Carbon Dioxide 30.0, Anion Gap 5, BUN 21 H, Creatinine 0.86, Estim Creat Clear Calc 81.56, Est GFR (MDRD) Af Amer 110, Est GFR (MDRD) Non-Af 91, BUN/Creatinine Ratio 24.3 H, Glucose 114 H, Calcium 8.0 L, Phosphorus 3.6 Micro: Microbiology 12/14/23 11:50 Blood Culture (Wb) - Right Forearm Blood Culture - Final No growth in 5 days. 12/14/23 11:30 Blood Culture (Wb) - Anticubital Right Blood Culture - Final No growth in 5 days. 12/14/23 13:52 Urine Catheter - Catheter Urine Culture - Final Culture exhibits no growth. Physical Exam Const no apparent distress Constitutional Narrative: Elderly, white male, lying in bed resting comfortably, appears nontoxic HEENT head/scalp atraumatic Head and Scalp: normocephalic Resp normal respiratory effort, no retractions, no use of accessory muscles and clear to auscultation bilaterally Auscultation: Negative for crackles, rhonchi or wheezes Cardio regular rate, regular rhythm, S1 normal heart sound, S2 normal heart sound, no murmurs, no rub, no gallops and no clicks GI normal to inspection, nondistended, normoactive bowel sounds and soft to palpation GI Narrative: Bowel sounds are good Extremity Extremity Narrative: Upper extremity edema has resolved, trace to 1+ bilateral lower extremity edema that has improved, no clubbing or cyanosis Neuro Neuro Narrative: Patient is currently sleeping but during my evaluation did move all extremities spontaneously and his sleep Psych Psych Narrative: unable to assess due to sleep Assessment & Plan Assessment/Plan (1) Leukocytosis: (2) Nausea & vomiting: (3) Bowel obstruction: QUALIFIERS: Intestinal obstruction type: volvulus Qualified Code(s): K56.2 - Volvulus (4) Sigmoid volvulus: (5) Edema: PLAN: Plan Sigmoid volvulus -Postop day 4 for exploratory laparotomy with small bowel resection and sigmoid colectomy with creation of end colostomy. -Was made n.p.o. by speech therapy with modified barium swallow planned for today -Okay for full liquids depending on modified barium swallow results -Ensure was added for protein supplementation -Advance diet per general surgery recommendations -Pain management as per surgery recommendations -Antibiotics per primary service--> General surgery has patient on Zosyn for now Lactic acidosis -Resolved -Likely related related to sigmoid volvulus Elevated blood pressure -Overall blood pressures appear to be fairly well-controlled with a few elevations here and there -Will hold off on adding anything for hypertension at this time Dysphagia -Concerns for dysphagia and patient made n.p.o. 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
[2023-12-19 15:14] VITALS: BP 117/78; PULSE 82; RESP 20; TEMP 36.2; O2SAT 94
[2023-12-19] MEDS: Ensure Plus High Protein 120 ML LIQUID PO ×3 (15:18→21:19)
[2023-12-19 21:13] VITALS: BP 121/64; PULSE 76; RESP 16; TEMP 36.1; O2SAT 93
[2023-12-19] MEDS: CARBIDOPA/LEVODOPA CR 50/200 Tablet PO (21:13)
[2023-12-19] MEDS: Acetaminophen 325 MG Tablet 650 MG PO (21:18)
[2023-12-20 02:45] VITALS: BP 115/64; PULSE 64; RESP 18; TEMP 36.4; O2SAT 95
[2023-12-20 03:11] LABS: Absolute Lymphocyte Count 1.18 X10^3/uL (0.83-4.51); Absolute Neutrophil Count 8.8 X10^3/uL (2.0-7.7); Basophil# 0.14 X10^3/uL; Basophil% 1.3 % (0-1); Eosinophil# 0.08 X10^3/uL; Eosinophils% 0.7 % (0-5); Hematocrit 33.2 % (40-54); Hemoglobin 11.1 g/dL (13.0-16.5); Lymphocyte # 1.18 X10^3/ul (0.83-4.51); Lymphocyte % 10.6 % (19-41); Mean Corp Hgb Conc 33.4 g/dL (32-36); Mean Corpuscular Hgb 31.5 pg (27.0-32.0); Mean Corpuscular Volume 94.3 fL (80-94); Mean Platelet Vol. 10.6 fl (6.2-12.0); Monocyte% 6.3 % (0-10); NRBC Flagged by Analyzer 0 % (0-5); Neutrophil # 8.76 X10^3/uL (2.7-7.7); Neutrophil % 78.8 % (47-70); Platelet Count 285 K/mm3 (150-450); RBC Distribution Width CV 14.8 % (11.6-14.6); RBC Distribution Width SD 50.8 fl (35.1-43.9); Red Blood Count 3.52 M/mm3 (4.6-6.2); White Blood Count 11.1 K/mm3 (4.4-11.0)
[2023-12-20 03:31] VITALS: BMI 26.9
[2023-12-20 03:31] LABS: Anion Gap 4 (5-15); BUN 26 mg/dL (7-18); BUN/Creat Ratio 30.7 RATIO (10-20); Chloride 106 mmol/L (98-107); Creatinine, Serum 0.85 mg/dL (0.70-1.30); EST Glomerular Filtration Rate 93 mL/min (>60); Est Glom Filt Rate - Afr Amer 113 mL/min (>60); Estimated Creatinine Clearance 82.52 ml/min; Glucose 128 mg/dL (74-106); Potassium 3.5 mmol/L (3.5-5.1); Sodium Level 139 mmol/L (136-145)
[2023-12-20] MEDS: Piperacil/Tazobactam 3.375 GM in 0.9% Normal Saline (50mL MB+) 50 ML IV (05:10)
[2023-12-20] MEDS: Heparin Injection (Vial) 5,000 UNIT/ML VIAL 5000 UNIT SC ×3 (05:10→20:55)
[2023-12-20 08:45] VITALS: BP 132/71; PULSE 75; RESP 16; TEMP 36.1; O2SAT 93
[2023-12-20] MEDS: Ensure Plus High Protein 120 ML LIQUID PO ×3 (09:08→21:02)
[2023-12-20] MEDS: Carvedilol 6.25 MG Tablet PO ×2 (09:08→20:55)
[2023-12-20] MEDS: Carbidopa/Levodopa 25/100 Tablet PO ×3 (09:09→16:18)
[2023-12-20] MEDS: Amantadine 100 MG Capsule PO (09:09)
--- NOTE | 2023-12-20 09:57 | WOUNDNOTE ---
Was called by nursing for colostomy appliance leak. states there was a large amount of gas noted in the appliance and the stool started leaking out the lateral side. no stool leakage noted along the suture line. removed the appliance. skin cleansed with warm water. pat dry. applied a paste ring and placed a new 2 piece flat [place] appliance. applied Hytape to outer edges as an extra protection. pt tolerated well. peristomal skin remains intact. will monitor.
[2023-12-20] MEDS: oxyCODONE 5 MG Tablet PO ×2 (10:13→17:31)
[2023-12-20] MEDS: Pantoprazole Sodium 40 MG in 0.9% Normal Saline (100mL MB+) 100 ML 330 MG IV (10:13)
--- NOTE | 2023-12-20 12:03 | PCM.PN.SRG ---
Subjective Subjective Patient seen and examined during AM rounds. His daughter is with him and has just recently finished helping with his grooming needs. He reports that he is feeling somewhat better than yesterday. He states that his diet advancement?reflected in his breakfast offerings?was well-tolerated. He denies any abdominal pain complaints. He relates that he is able to do more?such is noticing his limits more. Objective Data Objective Data Vital Signs: Vital Signs Temp Pulse Resp BP Pulse Ox O2 Del Method O2 Flow Rate 96.9 F L 75 16 132/71 H 93 Room Air 2 12/20/23 08:45 12/20/23 08:45 12/20/23 08:45 12/20/23 08:45 12/20/23 08:45 12/20/23 08:45 12/16/23 05:00 FiO2 95 12/16/23 11:30 Oxygen Flow Rate (L/min) 2 Oxygen Delivery Method Room Air Weight: 187 lb 6.287 oz Body Mass Index (BMI) 26.9 Intake & Output: Intake and Output for Last 24 Hours 12/18/23 12/19/23 12/20/23 23:59 23:59 23:59 Intake Total 630 / 630 990.00 / 990.00 540 / 540 Output Total 6300 / 6300 850 / 850 1400 / 1400 Balance -5670 / -5670 140.00 / 140.00 -860 / -860 Lab / Micro Data 12/20/23 02:55 12/20/23 02:55 Labs: Laboratory Results - last 24 hr 12/20/23 02:55: WBC 11.1 H, RBC 3.52 L, Hgb 11.1 L, Hct 33.2 L, MCV 94.3 H, MCH 31.5, MCHC 33.4, RDW Std Deviation 50.8 H, RDW Coeff of Ann 14.8 H, Plt Count 285, MPV 10.6, Immature Gran % (Auto) 2.300 H, Neut % (Auto) 78.8 H, Lymph % (Auto) 10.6 L, [place] % (Auto) 6.3, Eos % (Auto) 0.7, Baso % (Auto) 1.3 H, Absolute Neuts (auto) 8.8 H, Absolute Lymphs (auto) 1.18, Nucleated RBC % 0, Sodium 139, Potassium 3.5, Chloride 106, Carbon Dioxide 29.0, Anion Gap 4 L, BUN 26 H, Creatinine 0.85, Estim Creat Clear Calc 82.52, Est GFR (MDRD) Af Amer 113, Est GFR (MDRD) Non-Af 93, BUN/Creatinine Ratio 30.7 H, Glucose 128 H, Calcium 8.0 L Micro: Microbiology 12/14/23 11:50 Blood Culture (Wb) - Right Forearm Blood Culture - Final No growth in 5 days. 12/14/23 11:30 Blood Culture (Wb) - Anticubital Right Blood Culture - Final No growth in 5 days. 12/14/23 13:52 Urine Catheter - Catheter Urine Culture - Final Culture exhibits no growth. Physical Exam Const oriented x3 and no apparent distress Resp normal respiratory effort GI GI Narrative: Nondistended, soft, nontender to palpation, laparotomy incision appears appropriate and approximated with skin caitlyn. There is tape around patient's ostomy appliance but no signs of leakage. The stoma remains well perfused and slightly edematous. There is some thin brown stool in the ostomy appliance. Assessment & Plan Assessment/Plan (1) Sigmoid volvulus: PLAN: Patient is a 78-year-old male, with past medical history of Parkinson's, who presents with a 17-hour history of acute onset abdominal pain and nausea/vomiting. Diagnostic workup shows evidence of sigmoid volvulus. He is status post endoscopic colonic decompression with gastroenterology 12/13/23. However, the significant stool burden precluded complete decompression of the colon but a rectal tube was left in place proximal to the area of volvulus. Patient is postoperative day 5 from exploratory laparotomy with small bowel resection as well as sigmoid colectomy and creation of end colostomy. He continues to do well and having minimal pain. He reports that his diet advancement was tolerated well yesterday after being cleared to resume nutrition by speech therapy. He states that he is recognizing his limitations but does not necessarily feel weaker today. He otherwise is without complaint and simply wishes to know what his treatment plan is for the day. Neuro: As needed acetaminophen and oxycodone, continue home Parkinson's meds per hospitalist service Pulm/CV: Improved anasarca, patient denies any respiratory difficulty but has vital capacity is only approximately 750 mL when demonstrating on I-S; he is instructed to continue regular work with this device, patient is exhibiting normal blood pressures FEN/GI: Continue close monitoring of electrolytes given large fluid shifts, patient's creatinine is now within normal limits, tolerating a transitional diet well?abdomen appropriate, Protonix, wound and ostomy nursing consult : Plan to obtain UA prior to Ayala catheter discontinuation given patient's slight increase in WBC today, Flomax started 2 days ago. Heme/ID: Continue to trend CBC, Zosyn to stop today but we will keep a close eye on patient's UA above as well as any other signs of infection given slight leukocytosis today Endo: Continue glucose monitoring during limited nutritional state Proph: SCDs Dispo: Transfer orders have been placed for [facility] floor, however bed availability has precluded this transfer. Hold on TCU transfer until patient evaluated for spontaneous void following Ayala catheter removal and closure to infection concerns is obtained. Care plan has been discussed with hospitalist service. Appreciate their assistance with patient. Charges/Coding Visit Charges Inpatient E&M: 17938 Subs Hosp L2
[2023-12-20 12:15] LABS: Mucous, Urine 0 SEEN /hpf (<or=2+)
[2023-12-20 12:37] LABS: Color, Urine Yellow (Yellow); Glucose, Dipstick Normal (Normal); Ketone-Dipstick 15 mg/dl (Negative); Leukocyte Esterase-Dipstick 100 /ul (Negative); Nitrite-Dipstick Negative (Negative); Occult Blood-Urine 250 /ul (Negative); Protein-Dipstick 30 mg/dl (Negative); Specific Gravity, Urine 1.025 (1.002-1.030); Urine Bilirubin Dipstick Negative (Negative); Urine Clarity Sl. Cloudy (Clear); Urine Urobilinogen 1 mg/dl (Normal)
[2023-12-20 12:51] LABS: Bacteria 1+ /hpf (None Seen); Red Blood Cells-Urine 25-50 SEEN /hpf (0-5); Squamous Epithelial Cells - UA 0-5 SEEN /hpf (0-5); White Blood Cells 10-25 SEEN /hpf (0-5)
[2023-12-20 14:22] VITALS: BP 119/79; PULSE 85; RESP 20; TEMP 36.6; O2SAT 95
[2023-12-20] MEDS: Acetaminophen 325 MG Tablet 650 MG PO (15:28)
--- NOTE | 2023-12-20 16:14 | PN.HOSP_ITS ---
Reason for Visit Reason for Visit: Abdominal pain/nausea/vomiting Subjective Subjective No issues overnight. Modified barium swallow was performed and diet was reinitiated with precautions. No complaints currently. Objective Data Objective Data Vital Signs: Vital Signs Temp Pulse Resp BP Pulse Ox O2 Del Method O2 Flow Rate 97.9 F 85 20 H 119/79 95 Room Air 2 12/20/23 14:22 12/20/23 14:22 12/20/23 14:22 12/20/23 14:22 12/20/23 14:22 12/20/23 14:22 12/16/23 05:00 FiO2 95 12/16/23 11:30 Oxygen Flow Rate (L/min) 2 Oxygen Delivery Method Room Air Weight: 85 kg Body Mass Index (BMI) 26.9 Intake & Output: Intake and Output for Last 24 Hours 12/18/23 12/19/23 12/20/23 23:59 23:59 23:59 Intake Total 630 / 630 990.00 / 990.00 540 / 540 Output Total 6300 / 6300 850 / 850 1400 / 1400 Balance -5670 / -5670 140.00 / 140.00 -860 / -860 Lab / Micro Data 12/20/23 02:55 12/20/23 02:55 Labs: Laboratory Results - last 24 hr 12/20/23 02:55: WBC 11.1 H, RBC 3.52 L, Hgb 11.1 L, Hct 33.2 L, MCV 94.3 H, MCH 31.5, MCHC 33.4, RDW Std Deviation 50.8 H, RDW Coeff of Ann 14.8 H, Plt Count 285, MPV 10.6, Immature Gran % (Auto) 2.300 H, Neut % (Auto) 78.8 H, Lymph % (Auto) 10.6 L, [place] % (Auto) 6.3, Eos % (Auto) 0.7, Baso % (Auto) 1.3 H, Absolute Neuts (auto) 8.8 H, Absolute Lymphs (auto) 1.18, Nucleated RBC % 0, Sodium 139, Potassium 3.5, Chloride 106, Carbon Dioxide 29.0, Anion Gap 4 L, BUN 26 H, Creatinine 0.85, Estim Creat Clear Calc 82.52, Est GFR (MDRD) Af Amer 113, Est GFR (MDRD) Non-Af 93, BUN/Creatinine Ratio 30.7 H, Glucose 128 H, Calcium 8.0 L 12/20/23 12:10: Urine Color Yellow, Urine Clarity Sl. Cloudy, Urine pH 5.0, Ur Specific [place] 1.025, Urine Protein 30 H, Urine Glucose (UA) Normal, Urine Ketones 15 H, Urine Occult Blood 250 H, Urine Nitrite Negative, Urine Bilirubin Negative, Urine Urobilinogen 1 H, Ur Leukocyte Esterase 100 H, Urine RBC 25-50 SEEN, Urine WBC 10-25 SEEN, Ur Squamous Epith Cells 0-5 SEEN, Urine Bacteria 1+, Urine Mucus 0 SEEN Micro: Microbiology 12/14/23 11:50 Blood Culture (Wb) - Right Forearm Blood Culture - Final No growth in 5 days. 12/14/23 11:30 Blood Culture (Wb) - Anticubital Right Blood Culture - Final No growth in 5 days. 12/14/23 13:52 Urine Catheter - Catheter Urine Culture - Final Culture exhibits no growth. Physical Exam Const alert, oriented x3 and no apparent distress Constitutional Narrative: Elderly, white male, lying in bed resting comfortably, appears nontoxic HEENT head/scalp atraumatic and moist oral mucous membranes HEENT Narrative: Dentition is poor, Mallampati is 2, no thrush Head and Scalp: normocephalic Resp normal respiratory effort, no retractions, no use of accessory muscles and clear to auscultation bilaterally Auscultation: Negative for crackles, rhonchi or wheezes Cardio regular rate, regular rhythm, S1 normal heart sound, S2 normal heart sound, no murmurs, no rub, no gallops and no clicks GI normal to inspection, nondistended, normoactive bowel sounds, soft to palpation and non-tender GI Narrative: Bowel sounds are good, ostomy output is excellent Extremity Extremity Narrative: Trace bilateral lower extremity edema, no cyanosis or clubbing Neuro oriented x3, moves all extremities and no focal motor deficits Speech: speech normal Psych Psych Narrative: unable to assess due to sleep Assessment & Plan Assessment/Plan (1) Leukocytosis: (2) Nausea & vomiting: (3) Bowel obstruction: QUALIFIERS: Intestinal obstruction type: volvulus Qualified Code( s): K56.2 - Volvulus (4) Sigmoid volvulus: (5) Edema: PLAN: Plan Sigmoid volvulus -Postop day 4 for exploratory laparotomy with small bowel resection and sigmoid colectomy with creation of end colostomy. -Was made n.p.o. by speech therapy with modified barium swallow planned for today -Okay for full liquids depending on modified barium swallow results -Ensure was added for protein supplementation -Advance diet per general surgery recommendations -Pain management as per surgery recommendations -Antibiotics per primary service--> General surgery has patient on Zosyn for now Leukocytosis -Had normalized but up a bit today -Unclear what to make of this and patient has been on Zosyn -Clinically appears stable otherwise -Repeat UA is somewhat suggestive of infection however he has been on Zosyn -Would just monitor clinically and repeat CBC tomorrow to assess trend Dysphagia -Passed for oral diet with speech therapy -They did identify moderate to severe oropharyngeal dysphagia which is likely related to his baseline Parkinson's and acute debility due to current illness -Rec bite-size diet once his diet is advanced from full liquids -Continue ongoing speech therapy after discharge to TCU Urinary retention -Ayala removed yesterday however had to be replaced overnight due to urinary retention with greater than 250 on bladder scan -Continue Flomax -Remove Ayala at general surgery discretion MANPREET on CKD stage II -MANPREET is resolved and serum creatinine is at baseline -Continue to monitor as needed Mild hyperbilirubinemia -Suspect related to acute illness -Bilirubin had trended down Parkinson's disease -Continue Sinemet -Continue amantadine DVT prophylaxis -SCDs -Chemoprophylaxis per general surgery CODE STATUS -Full code is verified on admission Charges/Coding Visit Charges Inpatient E&M: 68757 Subs Hosp L2
[2023-12-20] MEDS: Tamsulosin HCl 0.4 MG Capsule PO (16:18)
--- NOTE | 2023-12-20 16:44 | CASEMGMT ---
Social Work Pt has been accept to TCU and can discharge when medically ready. Green sheet on chart to facilitate a weekend discharge if appropriate. JOAN Sanchez
--- NOTE | 2023-12-20 20:08 | NURSING ---
at bedside, explains procedure to pt and family; plan for flexible cystoscopy at bedside tonight d/t large blood clot evacuation and urine leaking from around F/C recently placed.
[2023-12-20 20:22] VITALS: BP 109/85; PULSE 87; RESP 18; TEMP 36.7; O2SAT 97
--- NOTE | 2023-12-20 20:45 | CON.PCM.UR_ITS ---
HPI Consult Data Date of Consult: 12/20/23 HPI Narrative Reason for Consultation: Ayala trauma HPI Narrative: ANTHONY VIDES, is a 78 M who is in the intensive care unit he is recovering from surgery by general surgery for a bowel case. Apparently he had a Ayala catheter placed per report there was some bleeding after this catheter was p laced several days later the catheter was removed for a voiding trial which failed he subsequently had a catheter put back in and then taken out again for another trial which failed and then now the catheter they tried to put a catheter back in but could not irrigate and nothing was draining so I was consulted. Came by and saw the patient looks like the current catheter may not be in proper place so the catheter was removed. Bedside cystoscopy was done with a flexible camera quite bloody within the prostatic channel appears to have may be a false passage was able to navigate into the bladder through a flexible cystoscope put a wire through the scope and then over the wire placed a 20 [place]ren[place] tip catheter with 10 cc in the balloon I then irrigated the bladder out so there was no more clots the urine was draining a salvador red color urine. The nurses are able to irrigate the clot catheter as necessary for any clots or if is not draining but please do not manipulate the catheter deflate the balloon or remove the catheter. He should follow-up with urology as an outpatient to ev entually have the catheter removed once his strength is better and better chance that he can void spontaneously and once his prostate heals from the trauma. Call me with questions [facility] Medical History (Updated 12/18/23 @ 10:[address] Missy Phelan, ) CKD (chronic kidney disease), stage II Parkinson disease Home Medications amantadine HCl 100 mg capsule 100 mg PO DAILY hill 12/04/23 [History Last Taken Unknown] carbidopa 25 mg-levodopa 100 mg tablet 1.5 tab PO DAILY 12/04/23 [History Last Taken Unknown] carbidopa ER 25 mg-levodopa 100 mg tablet,extended release 1 tab PO QHS hill 12/04/23 [History Last Taken Unknown] carbidopa 25 mg-levodopa 100 mg tablet 1 tab PO BID 12/13/23 [History Last Taken Unknown] Allergy/AdvReac Type Severity Reaction Status Date / Time No Known Allergies Allergy Verified 12/13/23 11:57 Family History (Updated 12/14/23 @ 00:[address] Kelley Shankar MD) Mother Heart disease Father Heart disease Surgical History (Updated 12/14/23 @ 00:[address] Kelley Shankar MD) History of tonsillectomy and adenoidectomy Surgical History no surgical history Social History (Updated 12/14/23 @ 01:[address] Kelley Shankar MD) household members: none Smoking Status: Never smoker alcohol intake: never substance use type: does not use Lab / Micro Data 12/20/23 02:55 12/20/23 02:55 Labs: Laboratory Results - last 24 hr 12/20/23 02:55: WBC 11.1 H, RBC 3.52 L, Hgb 11.1 L, Hct 33.2 L, MCV 94.3 H, MCH 31.5, MCHC 33.4, RDW Std Deviation 50.8 H, RDW Coeff of Ann 14.8 H, Plt Count 285, MPV 10.6, Immature Gran % (Auto) 2.300 H, Neut % (Auto) 78.8 H, Lymph % (Auto) 10.6 L, [place] % (Auto) 6.3, Eos % (Auto) 0.7, Baso % (Auto) 1.3 H, Absolute Neuts (auto) 8.8 H, Absolute Lymphs (auto) 1.18, Nucleated RBC % 0, Sodium 139, Potassium 3.5, Chloride 106, Carbon Dioxide 29.0, Anion Gap 4 L, BUN 26 H, Creatinine 0.85, Estim Creat Clear Calc 82.52, Est GFR (MDRD) Af Amer 113, Est GFR (MDRD) Non-Af 93, BUN/Creatinine Ratio 30.7 H, Glucose 128 H, Calcium 8.0 L 12/20/23 12:10: Urine Color Yellow, Urine Clarity Sl. Cloudy, Urine pH 5.0, Ur Specific [place] 1.025, Urine Protein 30 H, Urine Glucose (UA) Normal, Urine Ketones 15 H, Urine Occult Blood 250 H, Urine Nitrite Negative, Urine Bilirubin Negative, Urine Urobilinogen 1 H, Ur Leukocyte Esterase 100 H, Urine RBC 25-50 SEEN, Urine WBC 10-25 SEEN, Ur Squamous Epith Cells 0-5 SEEN, Urine Bacteria 1+, Urine Mucus 0 SEEN
--- NOTE | 2023-12-20 20:48 | PCM.OPRPT ---
Report of Operation Date of Procedure: 12/20/23 Pre-Operative Diagnosis: Cohen trauma gross hematuria Post-Operative Diagnosis: Cohen trauma gross hematuria Surgery/Procedure Performed:: Flexible cystoscopy complicated catheter placement Description of Surgical Findings:: At the bedside the penis was prepped and draped in usual sterile fashion put lidocaine jelly into the urethra went into the urethra with a flexible 16 [place] Olympus urethra scope was able to get to the urethra quite normally no trauma or stricture along the course the urethra identified the bulbar urethra this was normal and then came to the sphincter there was a lot of blood in the sphincter a lot of blood within the prostatic channel I suspected a posterior false passage I then was able to flex into the prostatic channel get through the channel and into the bladder then through the scope but put a guidewire 0.038 guidewire and then over the wire I placed a 20 [place] tip catheter with 10 cc in the balloon I then irrigate out all the clots from the bladder and said the gravity drainage to the Cohen catheter. Instructions were given to the nurses not to manipulate or remove the catheter but they certainly can irrigated as much as necessary. Patient tolerated procedure well Surgeon: Garth Becerra Type of Anesthesia: Local Drains: 20 fr [place] tip cohen Estimated Blood Loss (mL): 5 Admit VTE Documentation VTE Present on Admission: No VTE Mechan Device Prophylaxis: SCD's VTE Pharm Prophylaxis ordered?: No
[2023-12-20] MEDS: CARBIDOPA/LEVODOPA CR 50/200 Tablet PO (20:56)
[2023-12-21 00:15] VITALS: BP 111/60; PULSE 67; RESP 18; TEMP 36.6; O2SAT 99
[2023-12-21] MEDS: Lidocaine Jelly 2% 20 ML Syringe (URO-JET) 1 APPLIC TOPICAL ×2 (00:17→13:44)
[2023-12-21] MEDS: oxyCODONE 5 MG Tablet PO (00:52)
[2023-12-21 03:20] VITALS: BMI 27.3
[2023-12-21 04:15] VITALS: BP 132/78; PULSE 79; RESP 16; TEMP 36.5; O2SAT 100
[2023-12-21] MEDS: Heparin Injection (Vial) 5,000 UNIT/ML VIAL 5000 UNIT SC ×3 (05:10→22:32)
--- NOTE | 2023-12-21 07:40 | PCM.CONS.B ---
Consult Date of Consult: 12/21/23 Reason for Consult s/p flexible cysto and cohen placement draining okay still bloody, okay to flush as needed but do not remove or manipulate cohen.
[2023-12-21 07:50] LABS: Absolute Lymphocyte Count 0.95 X10^3/uL (0.83-4.51); Absolute Neutrophil Count 8.6 X10^3/uL (2.0-7.7); Basophil# 0.09 X10^3/uL; Basophil% 0.9 % (0-1); Eosinophil# 0.09 X10^3/uL; Eosinophils% 0.9 % (0-5); Hematocrit 30.4 % (40-54); Hemoglobin 10.1 g/dL (13.0-16.5); Lymphocyte # 0.95 X10^3/ul (0.83-4.51); Mean Corp Hgb Conc 33.2 g/dL (32-36); Mean Corpuscular Hgb 31.8 pg (27.0-32.0); Mean Corpuscular Volume 95.6 fL (80-94); Mean Platelet Vol. 10.4 fl (6.2-12.0); Monocyte% 4.8 % (0-10); NRBC Flagged by Analyzer 0 % (0-5); Neutrophil # 8.56 X10^3/uL (2.7-7.7); Neutrophil % 81.4 % (47-70); Platelet Count 310 K/mm3 (150-450); RBC Distribution Width CV 14.5 % (11.6-14.6); RBC Distribution Width SD 50.3 fl (35.1-43.9); Red Blood Count 3.18 M/mm3 (4.6-6.2); White Blood Count 10.5 K/mm3 (4.4-11.0)
[2023-12-21 08:02] LABS: Anion Gap 3 (5-15); BUN 22 mg/dL (7-18); BUN/Creat Ratio 24.9 RATIO (10-20); Calcium,Total 8.4 mg/dL (8.5-10.1); Chloride 106 mmol/L (98-107); Creatinine, Serum 0.88 mg/dL (0.70-1.30); EST Glomerular Filtration Rate 89 mL/min (>60); Est Glom Filt Rate - Afr Amer 108 mL/min (>60); Estimated Creatinine Clearance 72.59 ml/min; Glucose 108 mg/dL (74-106); Potassium 3.6 mmol/L (3.5-5.1); Sodium Level 139 mmol/L (136-145)
--- NOTE | 2023-12-21 08:14 | PN.SURG_ITS ---
Subjective Subjective Patient is not complaining of any abdominal pain and he is tolerating a transitional diet. Objective Data Objective Data Vital Signs: Vital Signs Temp Pulse Resp BP Pulse Ox O2 Del Method O2 Flow Rate 97.7 F L 79 16 132/78 H 100 Room Air 2 12/21/23 04:15 12/21/23 04:15 12/21/23 04:15 12/21/23 04:15 12/21/23 04:15 12/21/23 04:15 12/16/23 05:00 FiO2 95 12/16/23 11:30 Oxygen Flow Rate (L/min) 2 Oxygen Delivery Method Room Air Weight: 190 lb 4.143 oz Body Mass Index (BMI) 27.3 Intake & Output: Intake and Output for Last 24 Hours 12/19/23 12/20/23 12/21/23 23:59 23:59 23:59 Intake Total 990.00 / 990.00 840 / 1140 650 / 650 Output Total 850 / 850 1750 / 2075 975 / 975 Balance 140.00 / 140.00 -910 / -935 -325 / -325 Lab / Micro Data 12/21/23 07:45 12/21/23 07:45 Labs: Laboratory Results - last 24 hr 12/20/23 12:10: Urine Color Yellow, Urine Clarity Sl. Cloudy, Urine pH 5.0, Ur Specific [place] 1.025, Urine Protein 30 H, Urine Glucose (UA) Normal, Urine Ketones 15 H, Urine Occult Blood 250 H, Urine Nitrite Negative, Urine Bilirubin Negative, Urine Urobilinogen 1 H, Ur Leukocyte Esterase 100 H, Urine RBC 25-50 SEEN, Urine WBC 10-25 SEEN, Ur Squamous Epith Cells 0-5 SEEN, Urine Bacteria 1+, Urine Mucus 0 SEEN 12/21/23 07:45: WBC 10.5, RBC 3.18 L, Hgb 10.1 L, Hct 30.4 L, MCV 95.6 H, MCH 31.8, MCHC 33.2, RDW Std Deviation 50.3 H, RDW Coeff of Ann 14.5, Plt Count 310, MPV 10.4, Immature Gran % (Auto) 3.000 H, Neut % (Auto) 81.4 H, Lymph % (Auto) 9.0 L, [place] % (Auto) 4.8, Eos % (Auto) 0.9, Baso % (Auto) 0.9, Absolute Neuts (auto) 8.6 H, Absolute Lymphs (auto) 0.95, Nucleated RBC % 0, Sodium 139, Potassium 3.6, Chloride 106, Carbon Dioxide 30.0, Anion Gap 3 L, BUN 22 H, Creatinine 0.88, Estim Creat Clear Calc 72.59, Est GFR (MDRD) Af Amer 108, Est GFR (MDRD) Non-Af 89, BUN/Creatinine Ratio 24.9 H, Glucose 108 H, Calcium 8.4 L Micro: Microbiology 12/14/23 11:50 Blood Culture (Wb) - Right Forearm Blood Culture - Final No growth in 5 days. 12/14/23 11:30 Blood Culture (Wb) - Anticubital Right Blood Culture - Final No growth in 5 days. 12/14/23 13:52 Urine Catheter - Catheter Urine Culture - Final Culture exhibits no growth. Physical Exam Const no apparent distress Resp normal respiratory effort GI normal to inspection, nondistended, normoactive bowel sounds Extremity normal to inspection Assessment & Plan Assessment/Plan (1) Sigmoid volvulus: (2) Hematuria: PLAN: Plan The patient had replacement of Ayala by Dr. Becerra last night. The patient was having urinary retention and the replaced Ayala has been irrigating blood out of the bladder. The TCU is ready for transfer for him but I would like to see his hemoglobin be stable and to see his urine cleared up a little. Currently it appears grossly bloody. Once the patient's urine is clearing more I will discharge him with the Yaala in place to TCU. Kristian Giles MD Pager: [facility] [address] [place] [address], [address] [place] [address] Office:
--- NOTE | 2023-12-21 08:15 | PN_ITS ---
Subjective Subjective Patient with recurrent urinary retention after general surgery pulled his Ayala yesterday despite Flomax use. Ayala replaced however blood in Ayala and clotting with inability to flush and patient having significant pain. Urology was consulted and placed a three-way Ayala for flushing and will need to maintain this at discharge. Patient has no other complaints. Tolerating p.o. diet without difficulty and good ostomy output. Objective Data Objective Data Vital Signs: Vital Signs Temp Pulse Resp BP Pulse Ox O2 Del Method O2 Flow Rate 97.7 F L 79 16 132/78 H 100 Room Air 2 12/21/23 04:15 12/21/23 04:15 12/21/23 04:15 12/21/23 04:15 12/21/23 04:15 12/21/23 04:15 12/16/23 05:00 FiO2 95 12/16/23 11:30 Oxygen Flow Rate (L/min) 2 Oxygen Delivery Method Room Air Weight: 86.3 kg Body Mass Index (BMI) 27.3 Intake & Output: Intake and Output for Last 24 Hours 12/19/23 12/20/23 12/21/23 23:59 23:59 23:59 Intake Total 990.00 / 990.00 840 / 1140 650 / 650 Output Total 850 / 850 1750 / 2075 975 / 975 Balance 140.00 / 140.00 -910 / -935 -325 / -325 Lab / Micro Data 12/21/23 07:45 12/21/23 07:45 Labs: Laboratory Results - last 24 hr 12/20/23 12:10: Urine Color Yellow, Urine Clarity Sl. Cloudy, Urine pH 5.0, Ur Specific [place] 1.025, Urine Protein 30 H, Urine Glucose (UA) Normal, Urine Ketones 15 H, Urine Occult Blood 250 H, Urine Nitrite Negative, Urine Bilirubin Negative, Urine Urobilinogen 1 H, Ur Leukocyte Esterase 100 H, Urine RBC 25-50 SEEN, Urine WBC 10-25 SEEN, Ur Squamous Epith Cells 0-5 SEEN, Urine Bacteria 1+, Urine Mucus 0 SEEN 12/21/23 07:45: WBC 10.5, RBC 3.18 L, Hgb 10.1 L, Hct 30.4 L, MCV 95.6 H, MCH 31.8, MCHC 33.2, RDW Std Deviation 50.3 H, RDW Coeff of Ann 14.5, Plt Count 310, MPV 10.4, Immature Gran % (Auto) 3.000 H, Neut % (Auto) 81.4 H, Lymph % (Auto) 9.0 L, [place] % (Auto) 4.8, Eos % (Auto) 0.9, Baso % (Auto) 0.9, Absolute Neuts (auto) 8.6 H, Absolute Lymphs (auto) 0.95, Nucleated RBC % 0, Sodium 139, Potassium 3.6, Chloride 106, Carbon Dioxide 30.0, Anion Gap 3 L, BUN 22 H, Creatinine 0.88, Estim Creat Clear Calc 72.59, Est GFR (MDRD) Af Amer 108, Est GFR (MDRD) Non-Af 89, BUN/Creatinine Ratio 24.9 H, Glucose 108 H, Calcium 8.4 L Micro: Microbiology 12/14/23 11:50 Blood Culture (Wb) - Right Forearm Blood Culture - Final No growth in 5 days. 12/14/23 11:30 Blood Culture (Wb) - Anticubital Right Blood Culture - Final No growth in 5 days. 12/14/23 13:52 Urine Catheter - Catheter Urine Culture - Final Culture exhibits no growth. Physical Exam Const alert, oriented x3 and no apparent distress Constitutional Narrative: Elderly, white male, lying in bed resting comfortably, appears nontoxic General Appearance: cooperative HEENT normocephalic, head/scalp atraumatic and moist oral mucous membranes HEENT Narrative: Mallampati is 2, no thrush Resp normal respiratory effort, normal air movement, no retractions, no use of accessory muscles and clear to auscultation bilaterally Auscultation: Negative for crackles, rhonchi or wheezes Cardio regular rate, regular rhythm, S1 normal heart sound, S2 normal heart sound, no murmurs, no rub, no gallops and no clicks GI normal to inspection, nondistended, normoactive bowel sounds, soft to palpation and non-tender GI Narrative: Bowel sounds are good, ostomy output is excellent Narrative: Ayala in place with gross bloody hematuria Extremity Extremity Narrative: Trace bilateral lower extremity edema, no cyanosis or clubbing Neuro oriented x3, moves all extremities and no focal motor deficits Neuro Narrative: Speech is intelligible and normal in diction but slow in response time and c adence due to his bradykinesia Psych Psych Narrative: Very pleasant, interacts appropriately Assessment & Plan Assessment/Plan (1) Leukocytosis: (2) Nausea & vomiting: (3) Bowel obstruction: QUALIFIERS: Intestinal obstruction type: volvulus Qualified Code(s): K56.2 - Volvulus (4) Sigmoid volvulus: (5) Edema: PLAN: Plan Sigmoid volvulus -Postop day 5 for exploratory laparotomy with small bowel resection and sigmoid colectomy with creation of end colostomy. -On a transitional diet -Continue dietary supplements with Ensure -Antibiotics discontinued yesterday -Management per primary service Leukocytosis -Resolved Dysphagia -Passed for oral diet with speech therapy -They did identify moderate to severe oropharyngeal dysphagia which is likely related to his baseline Parkinson's and acute debility due to current illness -Diet recommendations are for bite-size and thin liquids with compensation strategies -Continue ongoing speech therapy after discharge to TCU Urinary retention -Ayala removed 12/19/2023 however had to be replaced overnight due to urinary retention with greater than 250 on bladder scan and then removed again on 12/19 after Flomax had been initiated however patient had recurrent urinary retention and Ayala was placed--> then developed lower abdominal pain with hematuria--> urology consulted and placed Ayala catheter--> patient had false passage -Continue Flomax -Plan on maintaining Ayala at discharge with outpatient urology follow-up Anemia -Down 1 g since hematuria yesterday -Plan is to monitor this and once stable transition to TCU for ongoing rehab after discharge MANPREET on CKD stage II -MANPREET is resolved and serum creatinine is at baseline -Continue to monitor as needed Mild hyperbilirubinemia -Suspect related to acute illness -Bilirubin had trended down Parkinson's disease -Continue Sinemet -Continue amantadine DVT prophylaxis -SCDs -Chemoprophylaxis per general surgery CODE STATUS -Full code is verified on admission Charges/Coding Visit Charges Inpatient E&M: 04501 Subs Hosp L2
[2023-12-21 08:27] VITALS: BP 114/66; PULSE 74; RESP 18; TEMP 35.8; O2SAT 100
[2023-12-21] MEDS: Carbidopa/Levodopa 25/100 Tablet PO ×3 (08:28→17:20)
[2023-12-21] MEDS: Carvedilol 6.25 MG Tablet PO ×2 (09:59→22:32)
[2023-12-21] MEDS: Amantadine 100 MG Capsule PO (10:00)
[2023-12-21] MEDS: Pantoprazole Sodium 40 MG in 0.9% Normal Saline (100mL MB+) 100 ML 330 MG IV (10:01)
[2023-12-21] MEDS: Ensure Plus High Protein 120 ML LIQUID PO ×2 (10:01→17:20)
[2023-12-21 13:40] VITALS: BP 102/57; PULSE 62; RESP 16; TEMP 36.8; O2SAT 93
[2023-12-21] MEDS: Tamsulosin HCl 0.4 MG Capsule PO (17:20)
[2023-12-21 20:00] VITALS: BP 103/58; PULSE 74; RESP 16; TEMP 36.4; O2SAT 97
[2023-12-21] MEDS: CARBIDOPA/LEVODOPA CR 50/200 Tablet PO (22:33)
[2023-12-22 02:00] VITALS: BP 103/56; PULSE 66; RESP 16; TEMP 36.7; O2SAT 95
[2023-12-22] MEDS: Heparin Injection (Vial) 5,000 UNIT/ML VIAL 5000 UNIT SC ×3 (05:17→21:29)
[2023-12-22 06:00] VITALS: BMI 24.7
[2023-12-22 07:43] VITALS: BP 103/63; PULSE 73; RESP 16; TEMP 37.8; O2SAT 93
[2023-12-22 07:44] LABS: Absolute Lymphocyte Count 0.83 X10^3/uL (0.83-4.51); Absolute Neutrophil Count 6.8 X10^3/uL (2.0-7.7); Basophil# 0.07 X10^3/uL; Basophil% 0.8 % (0-1); Eosinophil# 0.09 X10^3/uL; Eosinophils% 1.1 % (0-5); Hematocrit 25.3 % (40-54); Hemoglobin 8.6 g/dL (13.0-16.5); Lymphocyte # 0.83 X10^3/ul (0.83-4.51); Lymphocyte % 9.8 % (19-41); Mean Corpuscular Volume 94.1 fL (80-94); Mean Platelet Vol. 10.4 fl (6.2-12.0); Monocyte# 0.46 X10^3/uL; Monocyte% 5.4 % (0-10); NRBC Flagged by Analyzer 0 % (0-5); Neutrophil # 6.84 X10^3/uL (2.7-7.7); Neutrophil % 80.4 % (47-70); Platelet Count 276 K/mm3 (150-450); RBC Distribution Width CV 14.8 % (11.6-14.6); RBC Distribution Width SD 50.3 fl (35.1-43.9); Red Blood Count 2.69 M/mm3 (4.6-6.2); White Blood Count 8.5 K/mm3 (4.4-11.0)
[2023-12-22 07:57] LABS: Anion Gap 3 (5-15); BUN 17 mg/dL (7-18); BUN/Creat Ratio 21.9 RATIO (10-20); Calcium,Total 7.7 mg/dL (8.5-10.1); Chloride 107 mmol/L (98-107); Creatinine, Serum 0.78 mg/dL (0.70-1.30); EST Glomerular Filtration Rate 103 mL/min (>60); Est Glom Filt Rate - Afr Amer 125 mL/min (>60); Estimated Creatinine Clearance 79.84 ml/min; Glucose 101 mg/dL (74-106); Potassium 3.7 mmol/L (3.5-5.1); Sodium Level 138 mmol/L (136-145)
--- NOTE | 2023-12-22 08:52 | PN.SURG_ITS ---
Subjective Subjective Patient does not have any complaints except for spasming around the Ayala catheter. He is requesting regular diet instead of transitional. Objective Data Objective Data Vital Signs: Vital Signs Temp Pulse Resp BP Pulse Ox O2 Del Method O2 Flow Rate 100.0 F H 73 16 103/63 93 Room Air 2 12/22/23 07:43 12/22/23 07:43 12/22/23 07:43 12/22/23 07:43 12/22/23 07:43 12/22/23 07:43 12/16/23 05:00 FiO2 95 12/16/23 11:30 Oxygen Flow Rate (L/min) 2 Oxygen Delivery Method Room Air Weight: 172 lb 9.951 oz Body Mass Index (BMI) 24.7 Intake & Output: Intake and Output for Last 24 Hours 12/20/23 12/21/23 12/22/23 23:59 23:59 23:59 Intake Total 840 / 1140 1510 / 1510 120 / 120 Output Total 1750 / 2075 1775 / 1775 300 / 300 Balance -910 / -935 -265 / -265 -180 / -180 Lab / Micro Data 12/22/23 07:25 12/22/23 07:25 Labs: Laboratory Results - last 24 hr 12/22/23 07:25: WBC 8.5, RBC 2.69 L, Hgb 8.6 L, Hct 25.3 L, MCV 94.1 H, MCH 32.0, MCHC 34.0, RDW Std Deviation 50.3 H, RDW Coeff of Ann 14.8 H, Plt Count 276, MPV 10.4, Immature Gran % (Auto) 2.500 H, Neut % (Auto) 80.4 H, Lymph % (Auto) 9.8 L, [place] % (Auto) 5.4, Eos % (Auto) 1.1, Baso % (Auto) 0.8, Absolute Neuts (auto) 6.8, Absolute Lymphs (auto) 0.83, Nucleated RBC % 0, Sodium 138, Potassium 3.7, Chloride 107, Carbon Dioxide 28.0, Anion Gap 3 L, BUN 17, Creatinine 0.78, Estim Creat Clear Calc 79.84, Est GFR (MDRD) Af Amer 125, Est GFR (MDRD) Non-Af 103, BUN/Creatinine Ratio 21.9 H, Glucose 101, Calcium 7.7 L Micro: Microbiology 12/14/23 11:50 Blood Culture (Wb) - Right Forearm Blood Culture - Final No growth in 5 days. 12/14/23 11:30 Blood Culture (Wb) - Anticubital Right Blood Culture - Final No growth in 5 days. 12/14/23 13:52 Urine Catheter - Catheter Urine Culture - Final Culture exhibits no growth. Physical Exam Const oriented x3 and no apparent distress Resp normal respiratory effort GI soft to palpation and non-tender Assessment & Plan Assessment/Plan (1) Sigmoid volvulus: PLAN: Patient is tolerating a diet and his incision in place clean dry and intact. He has stoma producing stool. I will change to regular diet as the patient is tolerating transitional diet and not having abdominal pain. (2) Hematuria: PLAN: Patient also still has gross hematuria. His hemoglobin dropped a gram and a half since yesterday. I am rechecking an H&H in 6 hours. If it continues to fall I will order transfusion. Patient has Ayala in place and urology is on board. Kristian Giles MD Pager: [facility] [address] [place] [address], [address] [place] [address] Office:
[2023-12-22] MEDS: Carbidopa/Levodopa 25/100 Tablet PO ×3 (08:59→16:10)
[2023-12-22] MEDS: Carvedilol 6.25 MG Tablet PO ×2 (08:59→21:29)
[2023-12-22] MEDS: Ensure Plus High Protein 120 ML LIQUID PO (09:10)
[2023-12-22] MEDS: Amantadine 100 MG Capsule PO (09:11)
[2023-12-22] MEDS: Pantoprazole Sodium 40 MG Tablet PO (12:24)
[2023-12-22 14:05] LABS: Hematocrit 27.1 % (40-54)
[2023-12-22 14:55] VITALS: BP 91/52; PULSE 67; RESP 18; TEMP 36.6; O2SAT 98
--- NOTE | 2023-12-22 14:59 | PN.HOSP_ITS ---
Reason for Visit Reason for Visit: Abdominal pain, nausea, vomiting Subjective Subjective No significant issues overnight. Continues to have fairly gross hematuria without any signs of resolution. Hemoglobin has dropped another gram and a half with repeat pending ordered by general surgery. Patient has no complaints at this time. Ostomy output remains excellent. Objective Data Objective Data Vital Signs: Vital Signs Temp Pulse Resp BP Pulse Ox O2 Del Method O2 Flow Rate 97.8 F 67 18 91/52 L 98 Room Air 2 12/22/23 14:55 12/22/23 14:55 12/22/23 14:55 12/22/23 14:55 12/22/23 14:55 12/22/23 14:55 12/16/23 05:00 FiO2 95 12/16/23 11:30 Oxygen Flow Rate (L/min) 2 Oxygen Delivery Method Room Air Weight: 78.3 kg Body Mass Index (BMI) 24.7 Intake & Output: Intake and Output for Last 24 Hours 12/20/23 12/21/23 12/22/23 23:59 23:59 23:59 Intake Total 840 / 1140 1510 / 1510 120 / 120 Output Total 1750 / 2075 1775 / 1775 1050 / 1050 Balance -910 / -935 -265 / -265 -930 / -930 Lab / Micro Data 12/22/23 13:50 12/22/23 07:25 Labs: Laboratory Results - last 24 hr 12/22/23 07:25: WBC 8.5, RBC 2.69 L, Hgb 8.6 L, Hct 25.3 L, MCV 94.1 H, MCH 32.0, MCHC 34.0, RDW Std Deviation 50.3 H, RDW Coeff of Ann 14.8 H, Plt Count 276, MPV 10.4, Immature Gran % (Auto) 2.500 H, Neut % (Auto) 80.4 H, Lymph % (Auto) 9.8 L, Wilkinson % (Auto) 5.4, Eos % (Auto) 1.1, Baso % (Auto) 0.8, Absolute Neuts (auto) 6.8, Absolute Lymphs (auto) 0.83, Nucleated RBC % 0, Sodium 138, Potassium 3.7, Chloride 107, Carbon Dioxide 28.0, Anion Gap 3 L, BUN 17, Creatinine 0.78, Estim Creat Clear Calc 79.84, Est GFR (MDRD) Af Amer 125, Est GFR (MDRD) Non-Af 103, BUN/Creatinine Ratio 21.9 H, Glucose 101, Calcium 7.7 L 12/22/23 13:50: Hgb 9.0 L, Hct 27.1 L Micro: Microbiology 12/14/23 11:50 Blood Culture (Wb) - Right Forearm Blood Culture - Final No growth in 5 days. 12/14/23 11:30 Blood Culture (Wb) - Anticubital Right Blood Culture - Final No growth in 5 days. 12/14/23 13:52 Urine Catheter - Catheter Urine Culture - Final Culture exhibits no growth. Physical Exam Const alert, oriented x3 and no apparent distress Constitutional Narrative: Elderly, white male, sitting up at the bedside, appears comfortable and nontoxic, looks as good as I seen him throughout his hospital stay, nursing at bedside General Appearance: cooperative HEENT normocephalic, head/scalp atraumatic and moist oral mucous membranes HEENT Narrative: Mallampati 2 Narrative: Ayala in place with gross bloody hematuria Extremity Extremity Narrative: Trace bilateral lower extremity edema, no cyanosis or clubbing Psych affect normal Psych Narrative: Very pleasant, interacts appropriately Assessment & Plan Assessment/Plan (1) Leukocytosis: (2) Nausea & vomiting: (3) Bowel obstruction: QUALIFIERS: Intestinal obstruction type: volvulus Qualified Code(s): K56.2 - Volvulus (4) Sigmoid volvulus: (5) Edema: PLAN: Plan Sigmoid volvulus -Postop day 6 for exploratory laparotomy with small bowel resection and sigmoid colectomy with creation of end colostomy. -On a regular diet now with compensatory strategies for dysphagia -Continue dietary supplements with Ensure -Antibiotics discontinued yesterday -Management per primary service Dysphagia -Passed for oral diet with speech therapy -They did identify moderate to severe oropharyngeal dysphagia which is likely related to his baseline Parkinson's and acute debility due to current illness -Diet recommendations are for bite-size and thin liquids with compensation strategies -Continue ongoing speech therapy after discharge to TCU Urinary retention -Ayala removed 12/19/2023 however had to be replaced overnight due to urinary retention with greater than 250 on bladder scan and then removed again on 12/20/2023 after Flomax had been initiated however patient had recurrent urinary retention and Ayala was placed--> then developed lower abdominal pain with hematuria--> urology consulted and placed Ayala catheter--> patient had false pa ssage -Continue Flomax -Plan on maintaining Ayala at discharge with outpatient urology follow-up Anemia -Down down 2-1/2 g since hematuria developed -Repeat CBC is starting to show some stability -Plan is to monitor this and once stable transition to TCU for ongoing rehab a fter discharge 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
[2023-12-22] MEDS: 0.9% Saline Lock 10 ML Syringe IV (16:10)
[2023-12-22] MEDS: Tamsulosin HCl 0.4 MG Capsule PO (16:11)
[2023-12-22 20:06] VITALS: BP 110/61; PULSE 74; RESP 16; TEMP 36.9; O2SAT 98
[2023-12-22] MEDS: CARBIDOPA/LEVODOPA CR 50/200 Tablet PO (21:28)
[2023-12-23 01:30] VITALS: BP 103/62; PULSE 77; RESP 16; TEMP 37; O2SAT 98
[2023-12-23] MEDS: Heparin Injection (Vial) 5,000 UNIT/ML VIAL 5000 UNIT SC ×3 (06:06→20:57)
[2023-12-23 06:15] VITALS: BMI 23.8
[2023-12-23 06:24] LABS: Absolute Lymphocyte Count 1.02 X10^3/uL (0.83-4.51); Absolute Neutrophil Count 6.2 X10^3/uL (2.0-7.7); Basophil# 0.05 X10^3/uL; Basophil% 0.6 % (0-1); Eosinophil# 0.09 X10^3/uL; Eosinophils% 1.1 % (0-5); Hematocrit 25.1 % (40-54); Hemoglobin 8.3 g/dL (13.0-16.5); Lymphocyte # 1.02 X10^3/ul (0.83-4.51); Lymphocyte % 12.8 % (19-41); Mean Corp Hgb Conc 33.1 g/dL (32-36); Mean Corpuscular Hgb 31.2 pg (27.0-32.0); Mean Corpuscular Volume 94.4 fL (80-94); Mean Platelet Vol. 10.3 fl (6.2-12.0); Monocyte# 0.44 X10^3/uL; Monocyte% 5.5 % (0-10); NRBC Flagged by Analyzer 0 % (0-5); Neutrophil # 6.22 X10^3/uL (2.7-7.7); Neutrophil % 77.7 % (47-70); Platelet Count 287 K/mm3 (150-450); RBC Distribution Width CV 14.8 % (11.6-14.6); RBC Distribution Width SD 50.6 fl (35.1-43.9); Red Blood Count 2.66 M/mm3 (4.6-6.2)
[2023-12-23 06:43] LABS: Anion Gap 2 (5-15); BUN 12 mg/dL (7-18); BUN/Creat Ratio 16.1 RATIO (10-20); Calcium,Total 7.8 mg/dL (8.5-10.1); Chloride 106 mmol/L (98-107); Creatinine, Serum 0.75 mg/dL (0.70-1.30); EST Glomerular Filtration Rate 108 mL/min (>60); Est Glom Filt Rate - Afr Amer 130 mL/min (>60); Estimated Creatinine Clearance 79.84 ml/min; Glucose 98 mg/dL (74-106); Potassium 3.9 mmol/L (3.5-5.1); Sodium Level 135 mmol/L (136-145)
[2023-12-23 08:00] VITALS: BP 129/61; PULSE 66; RESP 16; TEMP 36.3; O2SAT 96
--- NOTE | 2023-12-23 08:07 | WOUNDNOTE ---
In to assess the colostomy appliance. appliance with 200cc's unformed brown stool and a large amount of flatus. appliance empties. surgical incision remains well approximated with caitlyn. no redness or drainage noted. appliance remains intact. no sign of leakage noted. plan for appliance change again tomorrow. pt states is tolerating meals well. pt very appreciative of care.
[2023-12-23] MEDS: Carbidopa/Levodopa 25/100 Tablet PO ×3 (08:28→17:23)
[2023-12-23] MEDS: Amantadine 100 MG Capsule PO (08:28)
[2023-12-23] MEDS: Pantoprazole Sodium 40 MG Tablet PO (08:29)
[2023-12-23] MEDS: Carvedilol 6.25 MG Tablet PO (08:29)
[2023-12-23] MEDS: Ensure Plus High Protein 120 ML LIQUID PO ×2 (08:36→15:06)
--- NOTE | 2023-12-23 10:27 | CASEMGMT ---
Social Work SW spoke with admissions in TCU and pt can admit to TCU when medically ready. SW met with pt and dgt to discuss discharge plan and they confirm the plan continues to be TCU at dc. SW will continue to follow for dc planning. Plan: TCU, when medically ready JOAN Saenz
[2023-12-23 14:00] VITALS: BP 105/62; PULSE 64; RESP 16; TEMP 36.4; O2SAT 97
--- NOTE | 2023-12-23 17:00 | PN.HOSP_ITS ---
Reason for Visit Reason for Visit: Diagnoses Elevated white blood cell count, unspecified (12/13/23) Volvulus (12/13/23) Nausea with vomiting, unspecified (12/13/23) Hematuria, unspecified (12/13/23) Fever, unspecified (12/13/23) Edema, unspecified (12/13/23) Objective Data Objective Data Vital Signs: Vital Signs Temp Pulse Resp BP Pulse Ox O2 Del Method O2 Flow Rate 97.6 F L 64 16 105/62 97 Room Air 2 12/23/23 14:00 12/23/23 14:00 12/23/23 14:00 12/23/23 14:00 12/23/23 14:00 12/23/23 14:00 12/16/23 05:00 FiO2 95 12/16/23 11:30 Oxygen Flow Rate (L/min) 2 Oxygen Delivery Method Room Air Weight: 166 lb 8 oz Body Mass Index (BMI) 23.8 Intake & Output: Intake and Output for Last 24 Hours 12/21/23 12/22/23 12/23/23 23:59 23:59 23:59 Intake Total 1510 / 1510 120 / 120 Output Total 1775 / 1775 1250 / 1250 400 / 400 Balance -265 / -265 -1130 / -1130 -400 / -400 Lab / Micro Data 12/23/23 06:01 12/23/23 06:01 Labs: Laboratory Results - last 24 hr 12/23/23 06:01: WBC 8.0, RBC 2.66 L, Hgb 8.3 L, Hct 25.1 L, MCV 94.4 H, MCH 31.2, MCHC 33.1, RDW Std Deviation 50.6 H, RDW Coeff of Ann 14.8 H, Plt Count 287, MPV 10.3, Immature Gran % (Auto) 2.300 H, Neut % (Auto) 77.7 H, Lymph % (Auto) 12.8 L, Dawes % (Auto) 5.5, Eos % (Auto) 1.1, Baso % (Auto) 0.6, Absolute Neuts (auto) 6.2, Absolute Lymphs (auto) 1.02, Nucleated RBC % 0, Sodium 135 L, Potassium 3.9, Chloride 106, Carbon Dioxide 27.0, Anion Gap 2 L, BUN 12, Creatinine 0.75, Estim Creat Clear Calc 79.84, Est GFR (MDRD) Af Amer 130, Est GFR (MDRD) Non-Af 108, BUN/Creatinine Ratio 16.1, Glucose 98, Calcium 7.8 L Micro: Microbiology 12/14/23 11:50 Blood Culture (Wb) - Right Forearm Blood Culture - Final No growth in 5 days. 12/14/23 11:30 Blood Culture (Wb) - Anticubital Right Blood Culture - Final No growth in 5 days. 12/14/23 13:52 Urine Catheter - Catheter Urine Culture - Final Culture exhibits no growth. Physical Exam Narrative Seen and examined Low-grade fever. Tmax 100.4 Fahrenheit but currently afebrile. Patient making urine. Positive fluid balance. Patient has swelling in the legs and upper extr emities. Abdominal distention better. Colostomy functioning with liquid feces. secured entrance monitor shows sinus rhythm with occasional PVCs. Physical exam: General: Alert, Oriented x3, Cooperative but fatigued and weak HEENT: Atraumatic, PERRLA, EOMI, Normocephalic Oral: Oral mucosa moist. Neck: Supple, No JVD, Negative Carotid Bruits Chest wall/Lungs: Shallow breathing. Air entry diminished in bilateral lung bases. No crepitation/rhonchi Cardiovascular: Sinus rhythm, normal S1, Normal S2, No M/G/R. Abdomen:Soft, postop mild distention and tenderness surgical dressing dry. Bowel sounds sluggish. Colostomy functioning with liquid yellowish feces : Oliguria resolved. Ayala catheter. Slight yellowish urine. No dysuria. No renal angle tenderness. No suprapubic tenderness. Extremities: Bilateral lower and upper extremity edema, Capillary Refill Less than 3 Seconds Skin: No rashes, No breakdown Musculoskeletal: No Tenderness to Palpation of Joints or Extremities. Moderate muscle rigidity at knee and hip joints. History of Parkinson disease Neurological: Cranial nerves II-XII grossly intact, DTR 2+/4. No acute focal neurological deficit. Psych/Mental Status: Flat affect. Assessment & Plan Assessment/Plan (1) Leukocytosis: (2) Nausea & vomiting: (3) Bowel obstruction: QUALIFIERS: Intestinal obstruction type: volvulus Qualified Code(s): K56.2 - Volvulus (4) Sigmoid volvulus: (5) Edema: PLAN: Plan The patient is a 78 y/o M was admitted with sudden onset of Was admitted with sudden onset abdominal pain periumbilical and hypogastric in location, nausea vomiting, dark in color started 10 PM day before admission. No fever. Patient denies any prior history of bowel obstruction or abdominal pain like this. #1. Sigmoid volvulus, complicated with total colon distention, ileus and lactic acidosis with suspected colonic infection/colitis: Patient admitted under surgical service to the ICU after colonoscopy. Abdomen pelvis/CT was done prior to that. Shows mild distention of colon down to the region of sigmoid colon, up to 10 cm. Patient reported some passage of flatus. Has a rectal tube and NG tube. IV fluid 500 mL Ringer lactate ordered as patient did not had significant urine output. Heart rate and blood pressure are controlled. No fever. Di scussed with the surgeon and plan to maintain on his current conservative measures to avoid total colectomy with high risk of surgery. Patient on IV PPI. Patient on IV Zosyn. Mild improvement in leukocytosis. Platelet count 214,000. Patient had colonoscopy on 12/13/2023. Sigmoid volvulus was found though colon prep was poor. Diverticulosis in RS colon and sigmoid colon. Partial decompression of volvulus achieved. No repeat colonoscopy recommended. 3/4: Colostomy is working good. Patient has good bowel sounds. 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 Massively dilated sigmoid colon transitioning to decompressed/deeply adhered distal sigmoid colon within the pelvis #2. MANPREET on Chronic Kidney Disease Stage II : Most likely prerenal due to sigmoid volvulus/ileus and third space: Ayala catheterization. Strict intake and output. Admission BUN/creatinine 29/1.33, today BUN/creatinine 30/1.11 BUN/creatinine ratio is 27. UA shows positive nitrite, ketones 5, bilirubin 1 LE 25 WBC 0-5 cells, bacteria 0. Patient on IV antibiotics. Urine culture shows no growth. 3/4: MANPREET is resolved on 12/17. Electrolytes in acceptable limit. Serum sodium 135. 3.. Recurrent urine retention patient had urine retention, Ayala removed on and was replaced overnight due to urinary retention greater than 250 mL on bladder scan. It was removed again on 12/20/2023 after Flomax initiated and then recurrent urinary retention Ayala was inserted. Patient developed lower abdominal pain and hematuria. Urologist consulted and placed Ayala catheter. Since patient has a false passage. Discharged on Ayala catheter with outpatient urologist follow-up. 4.Acute anemia on chronic anemia: Hemoglobin dropped to 8.3 from baseline 10.1 g. Platelet count 287,000. 5 5. Mild hyperbilirubinemia with normal transaminases, hyperbilirubinemia: Probably due to acute event of sigmoid volvulus ileus and possible secondary colon infection. Admission glucose 179. A1c 5.5 probably stress response hyperglycemia. Diabetes mellitus or prediabetes ruled out. 12/16: Last liver chemistry shows total bili 1.8. Direct 0.53. Will repeat tomorrow. 6. Parkinson's disease: hold oral medications in view of ileus with impaired bowel absorption Patient has moderate to severe oropharyngeal dysphagia probably due to Parkinson disease. Patient on diet bite-size with thin liquid with compensation strategies. Being followed by speech therapist. 7. DVT Prophylaxis: Recommend at least SCDs, chemoprophylaxis per Surgery discretion. CODE status: Patient BRIA is his daughter who is present and living will is currently in place. Discussed CODE status at length including difference between FULL code, DNR-CCA and DNR-CC status. Following discussions about the differences in these status, requested Full Code status. Advanced Care Charges/Coding Visit Charges Inpatient E&M: 25266 Subs Hosp L2
[2023-12-23] MEDS: Tamsulosin HCl 0.4 MG Capsule PO (17:22)
[2023-12-23 20:00] VITALS: BP 103/58; PULSE 65; RESP 15; TEMP 36.8; O2SAT 94
[2023-12-23] MEDS: CARBIDOPA/LEVODOPA CR 50/200 Tablet PO (20:57)
[2023-12-23 22:00] VITALS: RESP 15
[2023-12-24 02:19] VITALS: BP 132/73; PULSE 65; RESP 15; TEMP 36.6; O2SAT 96
[2023-12-24 03:45] VITALS: BMI 24.7
[2023-12-24 04:00] VITALS: RESP 15; O2SAT 94
[2023-12-24] MEDS: Heparin Injection (Vial) 5,000 UNIT/ML VIAL 5000 UNIT SC ×2 (05:43→14:23)
[2023-12-24 07:57] LABS: LDH 188 U/L (87-241)
--- NOTE | 2023-12-24 08:01 | PCM.PN.SRG ---
Subjective Subjective Patient seen and examined during AM rounds. He is found resting in bed. He states that he is experiencing better sleep and this is translated and then into more energy during the daytime. He is without complaint this morning and is happy to report that his bloody urine cleared over the last 24 hours. Objective Data Objective Data Vital Signs: Vital Signs Temp Pulse Resp BP Pulse Ox O2 Del Method O2 Flow Rate 97.8 F 65 15 132/73 H 94 Room Air 2 12/24/23 02:19 12/24/23 02:19 12/24/23 04:00 12/24/23 02:19 12/24/23 04:00 12/24/23 04:00 12/16/23 05:00 FiO2 95 12/16/23 11:30 Oxygen Flow Rate (L/min) 2 Oxygen Delivery Method Room Air Weight: 172 lb 6.424 oz Body Mass Index (BMI) 24.7 Intake & Output: Intake and Output for Last 24 Hours 12/22/23 12/23/23 12/24/23 23:59 23:59 23:59 Intake Total 120 / 120 200 / 200 Output Total 1250 / 1250 2250 / 2250 600 / 600 Balance -1130 / -1130 -2250 / -2250 -400 / -400 Lab / Micro Data 12/23/23 06:01 12/23/23 06:01 Labs: Laboratory Results - last 24 hr 12/24/23 06:41: Lactate Dehydrogenase 188 Micro: Microbiology 12/14/23 11:50 Blood Culture (Wb) - Right Forearm Blood Culture - Final No growth in 5 days. 12/14/23 11:30 Blood Culture (Wb) - Anticubital Right Blood Culture - Final No growth in 5 days. 12/14/23 13:52 Urine Catheter - Catheter Urine Culture - Final Culture exhibits no growth. Physical Exam Const oriented x3 and no apparent distress Resp normal respiratory effort GI GI Narrative: Nondistended, laparotomy incision remains approximated with skin caitlyn. There is no quentin-incisional erythema and the wound edges remain well apposed. Patient's colostomy appears recently changed with a new ostomy appliance and there is thick brown stool coming out of the stoma. Patient denies any tenderness with palpation of the abdominal wall. Assessment & Plan Assessment/Plan (1) Sigmoid volvulus: PLAN: Patient is postoperative day 9 from exploratory laparotomy with small bowel resection as well as segmental colectomy (sigmoid) with creation of end colostomy. He is doing well this morning. He is tolerating his diet with regular colostomy output. His abdominal exam is benign. He is still several days from us being able to take his skin caitlyn out. On the urologic front his hematuria appears to have cleared. Urology consultation was made last week and they are requesting outpatient follow-up for Ayala removal. Based on patient's clinical improvements I believe he is fit for transfer to the transitional care unit today to continue his recovery. I will continue to see him in that location. This impression was discussed with the hospitalist service and they are in agreement. Charges/Coding Visit Charges Inpatient E&M: 28747 Subs Hosp L2
[2023-12-24] MEDS: Carbidopa/Levodopa 25/100 Tablet PO ×2 (08:13→11:26)
[2023-12-24] MEDS: Amantadine 100 MG Capsule PO (08:14)
[2023-12-24] MEDS: Pantoprazole Sodium 40 MG Tablet PO (08:14)
[2023-12-24] MEDS: Carvedilol 6.25 MG Tablet PO (08:14)
[2023-12-24] MEDS: Ensure Plus High Protein 120 ML LIQUID PO ×2 (08:18→13:08)
--- NOTE | 2023-12-24 08:26 | WOUNDNOTE ---
Removed the colostomy appliance. small amount of unformed brown stool noted in the appliance. moderate flatus noted. incision to mid abdomen remains well approximated with caitlyn. stoma is well budded and moist. dark pink in color. peristomal skin is intact. cleansed skin with warm water. pat dry. applied a new 2 piece flat [place] appliance with a paste ring. pt tolerated well. see wound/stoma photo.
--- NOTE | 2023-12-24 08:33 | WOUNDNOTE ---
wound stoma photo: abdomen
[2023-12-24 08:55] VITALS: BP 138/69; PULSE 63; RESP 16; TEMP 36.3; O2SAT 99
[2023-12-24 11:19] VITALS: BP 115/65; PULSE 69; RESP 16; TEMP 37; O2SAT 97
--- NOTE | 2023-12-24 11:55 | PCM.TXEXTCAR ---
Diet Diet Order/Speech Therapy: 12/22/23 07:50 Diet: Regular - General Is pt able to select menu?: Yes Diet Comments: Direct sup/assist, Chin tuck &effortful swallow w/ sips, no carbonation Routine Orders/Code Status Cohen Catheter Size: 20 Change Cohen Catheter: Consult with Urology- placed by them 12/19 O2 Frequency: PRN Wound(s) mid abd: Wound Type: Surgical Incision (laparotomy incision and LLQ colostomy) Therapies Physical Therapy: Eval and Treat Occupational Therapy: Eval and Treat Speech Therapy: Eval and Treat Problem/Diagnosis (1) Sigmoid volvulus: Status: Acute Code(s): K56.2 - Volvulus Plan: Patient is postoperative day 9 from exploratory laparotomy with small bowel resection as well as segmental colectomy (sigmoid) with creation of end colostomy. He is doing well this morning. He is tolerating his diet with regular colostomy output. His abdominal exam is benign. He is still several days from us being able to take his skin caitlyn out. On the urologic front his hematuria appears to have cleared. Urology consultation was made last week and they are requesting outpatient follow-up for Cohen removal. Based on patient's clinical improvements I believe he is fit for transfer to the transitional care unit today to continue his recovery. I will continue to see him in that location. This impression was discussed with the hospitalist service and they are in agreement. Allergies/Procedures Done in Hospital Allergies No Known Allergies Allergy (Verified 12/13/23 11:57) Procedures: - (Bedside cystoscopy with cohen placement 12/19) Type of Care/Length of Stay Estimated LOS: Convalescent Care Less Than 30 days Type of Care Needed: Skilled Rehab Potential: Good Prognosis: Good Additional Orders/Day of Discharge Day of Discharge: 12/24/23 Dietary and Speech Recommendations Dietitian Recommendations/Changes: Continue liberal regular diet - no carbonation Continue 120mL EPHP 4x daily with medpass for supplemental energy Follow Up Care Please Follow Up With: Garth Becerra MD When: 7-10 days Discharge Plan Admission Admit Date/Time: 12/13/23 16:11 Primary Reason for Your Visit: Sigmoid colon volvulus Attending Provider: Surjit Kirkland Primary Care Provider: Sarika Montaño Consulting Providers: Pito Nickerson; Missy Phelan; Gustavo,Noman; Eric Billingsley; Garth Becerra Discharge Orders/Prescriptions Prescriptions: New tamsulosin 0.4 mg Capsule 0.4 mg PO DAILY@1730 30 Days Qty: 30 0RF pantoprazole 40 mg Tablet,Delayed Release (Dr/Ec) 40 mg PO DAILY 14 Days Qty: 14 0RF Ensure Plus High Protein 0.08 gram-1.5 kcal/mL Liquid 120 ml PO 4X/DAY Qty: 237 0RF carvedilol 6.25 mg Tablet 6.25 mg PO BID Qty: 60 0RF Continued carbidopa-levodopa 25-100 mg tablet 1.5 tab PO DAILY Patient Comments: take 1.5 tablets between 8 and 9 AM carbidopa-levodopa 25-100 mg tablet extended release 1 tab PO QHS Patient Comments: takes at 11 PM before bed amantadine HCl 100 mg capsule 100 mg PO DAILY Patient Comments: takes 1 tablet at noon carbidopa-levodopa 25-100 mg tablet 1 tab PO BID Patient Comments: takes 1 tablet at noon and 1 tablet in the evening Referrals / Follow Up: Sarika Montaño MD [Primary Care Provider] - Disposition Disposition (needs filled in before D/C Order can be placed): [facility]
--- NOTE | 2023-12-24 14:06 | NURSING ---
called report to tcu
--- NOTE | 2023-12-24 14:31 | PN.HOSP_ITS ---
Reason for Visit Reason for Visit: Diagnoses Elevated white blood cell count, unspecified (12/13/23) Volvulus (12/13/23) Nausea with vomiting, unspecified (12/13/23) Hematuria, unspecified (12/13/23) Fever, unspecified (12/13/23) Edema, unspecified (12/13/23) Objective Data Objective Data Vital Signs: Vital Signs Temp Pulse Resp BP Pulse Ox O2 Del Method O2 Flow Rate 98.6 F 69 16 115/65 97 Room Air 2 12/24/23 11:19 12/24/23 11:19 12/24/23 11:19 12/24/23 11:19 12/24/23 11:19 12/24/23 11:19 12/16/23 05:00 FiO2 95 12/16/23 11:30 Oxygen Flow Rate (L/min) 2 Oxygen Delivery Method Room Air Weight: 172 lb 6.424 oz Body Mass Index (BMI) 24.7 Intake & Output: Intake and Output for Last 24 Hours 12/22/23 12/23/23 12/24/23 23:59 23:59 23:59 Intake Total 120 / 120 450 / 450 Output Total 1250 / 1250 2250 / 2250 1400 / 1400 Balance -1130 / -1130 -2250 / -2250 -950 / -950 Lab / Micro Data 12/23/23 06:01 12/23/23 06:01 Labs: Laboratory Results - last 24 hr 12/24/23 06:41: Lactate Dehydrogenase 188 Micro: Microbiology 12/14/23 11:50 Blood Culture (Wb) - Right Forearm Blood Culture - Final No growth in 5 days. 12/14/23 11:30 Blood Culture (Wb) - Anticubital Right Blood Culture - Final No growth in 5 days. 12/14/23 13:52 Urine Catheter - Catheter Urine Culture - Final Culture exhibits no growth. Physical Exam Narrative Seen and examined Afebrile. Patient making good amount of urine. Colostomy functioning with liquid and semisolid feces. Breathing got improved. Physical exam: General: Alert, Oriented x3, Cooperative but fatigued and weak HEENT: Atraumatic, PERRLA, EOMI, Normocephalic Oral: Oral mucosa moist. Neck: Supple, No JVD, Negative Carotid Bruits Chest wall/Lungs: Air entry diminished in bilateral lung bases. No crepitation/rhonchi. No hypoxia Cardiovascular: Sinus rhythm, normal S1, Normal S2, No M/G/R. Abdomen:Soft, Colostomy functioning with greenish semisolid feces. No tenderness or guarding. : Slight yellowish urine. Ayala catheter. No dysuria. No renal angle tenderness. No suprapubic tenderness. Extremities: Bilateral lower and upper extremity edema, Capillary Refill Less than 3 Seconds Skin: No rashes, No breakdown Musculoskeletal: No Tenderness to Palpation of Joints or Extremities. Moderate muscle rigidity at knee and hip joints. History of Parkinson disease Neurological: Cranial nerves II-XII grossly intact, DTR 2+/4. No acute focal neurological deficit. Psych/Mental Status: Flat affect. Assessment & Plan Assessment/Plan (1) Leukocytosis: (2) Nausea & vomiting: (3) Bowel obstruction: QUALIFIERS: Intestinal obstruction type: volvulus Qualified Code(s): K56.2 - Volvulus (4) Sigmoid volvulus: (5) Edema: PLAN: Plan The patient is a 78 y/o M was admitted with sudden onset of Was admitted with sudden onset abdominal pain periumbilical and hypogastric in location, nausea vomiting, dark in color started 10 PM day before admission. No fever. Patient denies any prior history of bowel obstruction or abdominal pain like this. #1. Sigmoid volvulus, complicated with total colon distention, ileus and lactic acidosis with suspected colonic infection/colitis: Patient admitted under surgical service to the ICU after colonoscopy. Abdomen pelvis/CT was done prior to that. Shows mild distention of colon down to the region of sigmoid colon, up to 10 cm. Patient reported some passage of flatus. Has a rectal tube and NG tube. IV fluid 500 mL Ringer lactate ordered as patient did not had significant urine output. Heart rate and blood pressure are controlled. No fever. Di scussed with the surgeon and plan to maintain on his current conservative measures to avoid total colectomy with high risk of surgery. Patient on IV PPI. Patient on IV Zosyn. Mild improvement in leukocytosis. Platelet count 214,000. Patient had colonoscopy on 12/13/2023. Sigmoid volvulus was found though colon prep was poor. Diverticulosis in RS colon and sigmoid colon. Partial decompression of volvulus achieved. No repeat colonoscopy recommended. 12/22: Colostomy is working good. Patient has good bowel sounds. 12/23: Patient is ready for discharge to SNF, TCU. 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 Massively dilated sigmoid colon transitioning to decompressed/deeply adhered distal sigmoid colon within the pelvis #2. MANPREET on Chronic Kidney Disease Stage II : Most likely prerenal due to sigmoid volvulus/ileus and third space: Ayala catheterization. Strict intake and output. Admission BUN/creatinine 29/1.33, today BUN/creatinine 30/1.11 BUN/creatinine ratio is 27. UA shows positive nitrite, ketones 5, bilirubin 1 LE 25 WBC 0-5 cells, bacteria 0. Patient on IV antibiotics. Urine culture shows no growth. 12/22: MANPREET is resolved on 12/17. Electrolytes in acceptable limit. Serum sodium 135. 3.. Recurrent urine retention patient had urine retention, Ayala removed on and was replaced overnight due to urinary retention greater than 250 mL on bladder scan. It was removed again on 12/20/2023 after Flomax initiated and then recurrent urinary retention Ayala was inserted. Patient developed lower abdominal pain and hematuria. Urologist consulted and placed Ayala catheter. Since patient has a false passage. Discharged on Ayala catheter with outpatient urologist follow-up. 4.Acute anemia on chronic anemia: Hemoglobin dropped to 8.3 from baseline 10.1 g. Platelet count 287,000. 5 5. Mild hyperbilirubinemia with normal transaminases, hyperbilirubinemia: Probably due to acute event of sigmoid volvulus ileus and possible secondary col on infection. Admission glucose 179. A1c 5.5 probably stress response hyperglycemia. Diabetes mellitus or prediabetes ruled out. 12/16: Last liver chemistry shows total bili 1.8. Direct 0.53. Will repeat tomorrow. 6. Parkinson's disease: hold oral medications in view of ileus with impaired bowel absorption Patient has moderate to severe oropharyngeal dysphagia probably due to Parkinson disease. Patient on diet bite-size with thin liquid with compensation strategies. Being followed by speech therapist. 7. Patient had acute severe malnutrition with loss of subcutaneous fat, decreased muscle strength and bulk due to bowel obstruction which required complicated laparotomy surgery as described above. On Ensure. DVT Prophylaxis: Recommend at least SCDs, chemoprophylaxis per Surgery discretion. CODE status: Patient HCPOA is his daughter who is present and living will is currently in place. Discussed CODE status at length including difference between FULL code, DNR-CCA and DNR-CC status. Following discussions about the differences in these status, requested Full Code status. Advanced Care Charges/Coding Visit Charges Inpatient E&M: 00498 Subs Hosp L2
--- NOTE | 2023-12-24 16:30 | CASEMGMT ---
Social Work Patient discharged to [facility] TCU, skilled level of care. Faxed transfer summary and signed med list to TCU, for continuity of care of patient. Updated Jadyn RN. No other services requested. Patient will be seen and followed by social work while on the TCU. -CATIA Frederick
--- NOTE | 2023-12-25 18:47 | DS_ITS ---
Date of Admission: 12/24/23 Primary Care Physician: Dr. Sarika Montaño MD Consultations 12/24/23 18:49 Consult: Onc/Wound/purchasing intern Routine Comment: Reason for Consult:: New colostomy Reason For Visit: SIGMOID VOLVULUS Diagnosis Discharge Diagnosis (1) Debility: Status: Acute Code(s): R53.81 - Other malaise (2) Bowel obstruction: Status: Acute Code(s): K56.609 - Unspecified intestinal obstruction, unspecified as to partial versus complete obstruction Qualifiers: Intestinal obstruction type: volvulus Qualified Code(s): K56.2 - Volvulus (3) Sigmoid volvulus: Status: Acute Code(s): K56.2 - Volvulus (4) Urinary retention: Status: Acute Code(s): R33.9 - Retention of urine, unspecified (5) Hematuria: Status: Acute Code(s): R31.9 - Hematuria, unspecified (6) Acute kidney injury: Status: Acute Code(s): N17.9 - Acute kidney failure, unspecified (7) Parkinson disease: Status: Acute Code(s): G20.A1 - Parkinson's disease without dyskinesia, without mention of fluctuations Medications at Discharge Home Medications amantadine HCl 100 mg capsule 100 mg PO DAILY hill 12/04/23 carbidopa 25 mg-levodopa 100 mg tablet 1.5 tab PO DAILY parkinsons 12/04/23 carbidopa ER 25 mg-levodopa 100 mg tablet,extended release 1 tab PO QHS hill 12/04/23 carbidopa 25 mg-levodopa 100 mg tablet 1 tab PO BID parkinsons 12/13/23 carvedilol 6.25 mg tablet 6.25 mg PO BID Heart #60 tabs 12/24/23 food supplemt, lactose-reduced 0.08 gram-1.5 kcal/mL oral liquid (Ensure Plus High Protein) 120 ml PO 4X/DAY nutrition #237 mL 12/24/23 pantoprazole 40 mg tablet,delayed release 40 mg PO DAILY stomach acid 2 weeks #14 tabs 12/24/23 tamsulosin 0.4 mg capsule 0.4 mg PO DAILY@1730 bladder 30 days #30 caps 12/24/23 Hospital Course Operations - (Segmental small bowel resection with reanastomosis as well as segmental colectomy and creation of end colostomy) Procedures - (Cystoscopy with Ayala catheter placement 12/20/2023) Summary of Care Provided Hospital Course: Patient is 78-year-old male who is admitted to the ICU 12/13/2023 after he was initially diagnosed with sigmoid volvulus and taken to the endoscopy suite emergently for endoscopic decompression. I joined gastroenterology for this procedure where we were successful in removing the volvulus event but patient had a significant stool burden precluding optimal decompression. A rectal tube was placed along with a nasogastric tube and the patient was carefully monitored for the following 2 days. His lactate normalized and his white blood cell count, initially over 20,000?begin to trend downward. However, he had scant output from his rectal tube and the morning of 12/15/2023 he appeared more distended so I made the decision to proceed to the OR for exploratory laparotomy with probable segmental colectomy and end colostomy. Procedure was difficult due to significant adhesions between the colon and the pelvic sidewall as well as the small bowel and the colon. It appeared the patient had evidence of prior sigmoid diverticular disease as the cause for this presentation. Following the procedure patient was returned to the ICU where he did well. Consults were placed to wound and ostomy nursing as well as physical therapy. Although patient's diet was able to be advanced after observation of bowel function, he was evaluated by speech therapy for concern for aspiration and a modified barium swallow study was performed (but with Gastrografin given his recent bowel surgery). Ultimately they concluded he was appropriate for diet advancement and he did well through these transitions. In fact, [facility] after the [facility] but due to lack of bed availability he remained in the ICU for several days thereafter. At patient's presentation a Ayala catheter was placed for accurate ins and outs, but his output was immediately liya hematuria. This situation was monitored for 5 days and eventually that hematuria cleared. Thus, I attempted a Ayala catheter removal and spontaneous voiding trial. Unfortunately patient did not tolerate this and quickly required a Ayala catheter placement on the account of occlusive blood clots. On replacement of Ayala catheter patient was initiated on Flomax. 48 hours later a second attempt at Ayala removal was made, but unfortunately this to met the same result. However, this time when catheter was replaced patient had persistent discomfort and urology was notified. On 12/19/2024 urology presented to patient's bedside after nursing was unable to place a larger catheter and performed bedside cystoscopy. This study found patient to have evidence of a false passage, but the true lumen was identified and a 20 [place] Ayala catheter was placed. This was used for bladder irrigation as well. Following catheter placement urology recommended outpatient follow-up for Ayala catheter removal. After this issue was resolved, patient continued to receive wound and ostomy care and remained clinically stable. His hemoglobin was monitored for a couple of days inpatient given a drop secondary to his urological trauma. Ultimately this stabilized and he was thus approved for transfer to the transitional care unit. Physical Exam Const alert, oriented x3 and no apparent distress GI GI Narrative: Skin caitlyn in place, well-perfused colostomy in left lower quadrant, soft and nontender to palpation Weight / BMI Weight Weight: 163 lb 7 oz Body Mass Index (BMI) 23.4 ABG / Lab / Microbiology Data 12/26/23 05:10 12/25/23 05:09 Laboratory: Laboratory Results - last 24 hr 12/25/23 05:09: WBC 9.7, RBC 2.85 L, Hgb 9.1 L, Hct 27.3 L, MCV 95.8 H, MCH 31.9, MCHC 33.3, RDW Std Deviation 51.8 H, RDW Coeff of Ann 15.0 H, Plt Count 341, MPV 10.1, Immature Gran % (Auto) 2.000 H, Neut % (Auto) 81.0 H, Lymph % (Auto) 9.7 L, [place] % (Auto) 6.2, Eos % (Auto) 0.7, Baso % (Auto) 0.4, Absolute Neuts (auto) 7.8 H, Absolute Lymphs (auto) 0.94, Nucleated RBC % 0, Sodium 137, Potassium 4.4, Chloride 103, Carbon Dioxide 29.0, Anion Gap 5, BUN 12, Creatinine 0.84, Estim Creat Clear Calc 76.04, Est GFR (MDRD) Af Amer 115, Est GFR (MDRD) Non-Af 95, BUN/Creatinine Ratio 14.4, Glucose 114 H, Calcium 7.7 L, Iron 25 L D/C Instructions Please Follow Up With: Garth Becerra MD Meaningful Use Info Meaningful Use Diagnoses (Choose all that apply): None applicable Discharge Plan Admission Admit Date/Time: 12/24/23 15:59 Attending Provider: Ravi Conway Chi Primary Care Provider: Sarika Montaño Discharge Orders/Prescriptions Prescriptions: No Action carbidopa-levodopa 25-100 mg tablet 1.5 tab PO DAILY Patient Comments: take 1.5 tablets between 8 and 9 AM carbidopa-levodopa 25-100 mg tablet extended release 1 tab PO QHS Patient Comments: takes at 11 PM before bed amantadine HCl 100 mg capsule 100 mg PO DAILY Patient Comments: takes 1 tablet at noon carbidopa-levodopa 25-100 mg tablet 1 tab PO BID Patient Comments: takes 1 tablet at noon and 1 tablet in the evening tamsulosin 0.4 mg Capsule 0.4 mg PO DAILY@1730 30 Days Qty: 30 0RF pantoprazole 40 mg Tablet,Delayed Release (Dr/Ec) 40 mg PO DAILY 14 Days Qty: 14 0RF Ensure Plus High Protein 0.08 gram-1.5 kcal/mL Liquid 120 ml PO 4X/DAY Qty: 237 0RF carvedilol 6.25 mg Tablet 6.25 mg PO BID Qty: 60 0RF Referrals / Follow Up: Sarika Montaño MD [Primary Care Provider] - Charges/Coding Visit Charges Inpatient E&M: 11180 Disch Hosp
== END 2023-12-24 15:48 | disposition skilled nursing facility (03) | DRG 329 ==
LOC: ED 14:56 → MS3 15:47 → ICU 12-14 01:19 → MS3 12-21 10:38
PROVIDERS: Family Medicine; Internal Medicine; Internal Medicine Gastroenterology; Physician Assistant; Surgery; Admitting Provider Surgery; Emergency Provider Emergency Medicine; PCP Family Medicine; Visit Provider Surgery
PROC: 0DJD8ZZ Inspection of Lower Intestinal Tract, Via Natural or Artificial Opening Endoscopic (ICD-10-PCS; CPT 45378; principal; 2023-12-13 16:00)
PROC: 0DTN0ZZ Resection of Sigmoid Colon, Open Approach (ICD-10-PCS; principal; 2023-12-15 13:00)
DX: K56.2 Volvulus (principal); E43 Unspecified severe protein-calorie malnutrition; N17.9 Acute kidney failure, unspecified; D62 Acute posthemorrhagic anemia; K91.71 Accidental puncture and laceration of a digestive system organ or structure during a digestive system procedure; N36.5 Urethral false passage; G20.A1 Parkinson's disease without dyskinesia, without mention of fluctuations; N18.2 Chronic kidney disease, stage 2 (mild); K57.30 Diverticulosis of large intestine without perforation or abscess without bleeding; D72.829 Elevated white blood cell count, unspecified; R73.9 Hyperglycemia, unspecified; R03.0 Elevated blood-pressure reading, without diagnosis of hypertension; R33.8 Other retention of urine; R13.12 Dysphagia, oropharyngeal phase; R31.0 Gross hematuria; Z68.23 Body mass index [BMI] 23.0-23.9, adult; Z79.899 Other long term (current) drug therapy; Z87.891 Personal history of nicotine dependence
CPT/HCPCS: 36415; 74018; 74177; 74230; 76000; 80048; 80053; 80076; 80202; 81001; 83036; 83605; 83615; 83690; 83735; 84100; 85014; 85018; 85025; 85652; 86140; 87040; 87086; 88307; 92526; 92610; 92611; 94668; 97110; 97162; 97166; 97530; 97535; 99284; J7030; J7040; J7050; J7120; Q9967; A4216; J1940; J2405; J3490

== ENCOUNTER 2023-12-24 15:59 | Inpatient (IN) | payer MEDICARE, OTHER, SELFPAY ==
[2023-12-24 16:16] VITALS: BP 132/7; PULSE 80; RESP 16; TEMP 37; O2SAT 93; BMI 23.4
[2023-12-24 16:26] VITALS: BMI 23.4
[2023-12-24] MEDS: Ensure Plus High Protein 120 ML LIQUID PO ×2 (18:06→21:52)
[2023-12-24] MEDS: Carbidopa/Levodopa 25/100 Tablet PO ×2 (18:06→21:52)
[2023-12-24] MEDS: Tamsulosin HCl 0.4 MG Capsule PO (18:06)
--- NOTE | 2023-12-24 20:00 | HP.PCM_ITS ---
HPI - General General Date of Admission: 12/24/23 Date of Service: 12/24/23 Chief Complaint: Here for rehabilitation. HPI Narrative 12/13/2023 ANTHONY VIDES, is a 78 Male [address] presents to [facility] ED with abdominal pain. Abdominal pain, nausea/vomiting x 2 days after [employer] with coleslaw. Intermittent pain, vomiting several times. Morphine, Zofran, IV fluids given. CT showed bowel obstruction, possible sigmoid volvulus. 12/13/[address] [facility]. Dr. Kirkland, no peritonitis, Zosyn given. 12/13/2023 Dr. Chen performed colonoscopy, diverticulosis sigmoid colon, volvulus partially decompressed. 12/13/2023 IV fluids, NGT suction, NPO, PPI IV, Zosyn IV. IV fluids for SARITHA. 12/14/2023 Abdominal pain better, passing gas, no BM's x 2 days. Rectal tube. LR IV, PPI IV, Zosyn IV, try to avoid surgery. 12/15/2023 Fever 100.8, decreased urine output. SARITHA improving. 12/15/2023 Dr. Kirkland performed exploratory laparatomy, small bowel resection, repair small bowel enterotomy, sigmoid colectomy with colostomy, transversus abdomins plane block. 12/16/2023 Decrease IV fluids to 75cc/hour, overall + 5.6 liters. 12/17/2023 Making urine. PPI IV, Zosyn IV, WBC improved. +8.6 liters, colostomy working. Saritha resolved. 12/18/2023 Pain controlled, good ostomy output, full liquid diet. Zosyn IV, Stop Vancomycin, Stop Azithromycin. Lasix 20mg IV, + 9 liters. 12/18/2023 KUB, Discontinue cohen catheter. 12/19/2023 Cohen replaced for urinary retention, start Flomax. ST plans MBS, good ostomy output. Stop Zosyn 12/20/2023. 12/20/2023 MBS done, diet restarted. 12/20/2023 Dr. Becerra performed flexible cystoscopy with complicated catheter placement for cohen trauma, gross hematuria. 12/21/[address] cohen for irrigation, recurrent urinary retention. Maintain cohen at discharge. 12/22/2023 Gross hematuria, good ostomy output. Hemoglobin 9.0, monitor. 12/23/2023 Fever 100.4, making urine, swelling bilateral upper extremity, bilateral lower extremity. Colostomy working. SARITHA resolved. 12/24/2023 Admit to TCU with debility, here for rehabilitation, strengthening, prior to discharge home alone. [facility] Medical History (Updated 12/24/23 @ 20:[address] Ravi Conway MD) CKD (chronic kidney disease), stage II Parkinson disease Home Medications amantadine HCl 100 mg capsule 100 mg PO DAILY hill 12/04/23 [History Last Taken 12/24/23 08:15] carbidopa 25 mg-levodopa 100 mg tablet 1.5 tab PO DAILY parkinsons 12/04/23 [History Last Taken 12/24/23 08:15] carbidopa ER 25 mg-levodopa 100 mg tablet,extended release 1 tab PO QHS hill 12/04/23 [History Last Taken 12/23/23 20:55] carbidopa 25 mg-levodopa 100 mg tablet 1 tab PO BID parkinsons 12/13/23 [History Last Taken 12/24/23 11:25] carvedilol 6.25 mg tablet 6.25 mg PO BID Heart #60 tabs 12/24/23 [Rx Last Taken 12/24/23 08:15] food supplemt, lactose-reduced 0.08 gram-1.5 kcal/mL oral liquid (Ensure Plus High Protein) 120 ml PO 4X/DAY nutrition #237 mL 12/24/23 [Rx Last Taken 12/24/23 13:05] pantoprazole 40 mg tablet,delayed release 40 mg PO DAILY stomach acid 2 weeks #14 tabs 12/24/23 [Rx Last Taken 12/24/23 08:15] tamsulosin 0.4 mg capsule 0.4 mg PO DAILY@1730 bladder 30 days #30 caps 12/24/23 [Rx Last Taken 12/23/23 05:20] Allergy/AdvReac Type Severity Reaction Status Date / Time No Known Allergies Allergy Verified 12/13/23 11:57 Family History Mother Heart disease Father Heart disease Surgical History (Updated 12/24/23 @ 20:[address] Ravi Conway MD) History of colectomy History of colostomy History of tonsillectomy and adenoidectomy Social History household members: none Smoking Status: Never smoker alcohol intake: never substance use type: does not use ROS Constitutional Constitutional: Reports weakness; Denies chills, fever(s) or weight gain ENT HEENT: Denies headache(s), nasal congestion or nasal discharge Cardiovascular Cardiovascular: Denies chest pain or palpitations Respiratory/Chest Respiratory/Chest: Denies cough, excessive phlegm production or shortness of breath with exertion Gastrointestinal Gastrointestinal: Denies abdominal pain, nausea or vomiting Genitourinary Genitourinary: Denies dysuria Musculoskeletal Musculoskeletal: Denies joint pain or joint swelling Integumentary Integumentary: Denies rash or wounds Neurologic Neurologic: Denies focal weakness, numbness or tingling Psychiatric Psychiatric: Denies anxiety, auditory hallucinations, depression, homicidal ideation or suicidal ideation Vital Signs Vital Signs Vital Signs: 12/24/23 16:16 12/24/23 16:16 Temperature 98.6 F Temperature Source Temporal Pulse Rate 80 80 Pulse Rhythm Regular Pulse Strength Normal (2+) Respiratory Rate 16 16 Respiratory Effort Normal Non-Labored Respiratory Depth Normal Respiratory Pattern Normal Blood Pressure 132/7 H Blood Pressure Mean 48 Blood Pressure Source Monitor Blood Pressure Position Semi-Fowlers Blood Pressure Location Left Arm Pulse Ox 93 Oxygen Delivery Method Room Air Weight Weight: 74.134 kg Body Mass Index (BMI) 23.4 Physical Exam Const alert General Appearance: cooperative HEENT normocephalic Eyes PERRL and EOMs intact bilaterally Neck supple, no JVD and no carotid bruits Resp normal respiratory effort, normal air movement and clear to auscultation bilaterally Cardio regular rate and regular rhythm GI normal to inspection, nondistended, normoactive bowel sounds, non-tender and non-distended GI Narrative: Midline wound clean. Colostomy LLQ. Bladder / Kidney Exam: catheter in place urethral Extremity normal capillary refill General Extremity: Negative for edema Skin no rashes or lesions noted General Skin Exam: no breakdown Psych affect normal Appearance: appropriate Assessment & Plan Assessment/Plan (1) Debility: (2) Bowel obstruction: QUALIFIERS: Intestinal obstruction type: volvulus Qualified Code( s): K56.2 - Volvulus (3) Sigmoid volvulus: (4) Urinary retention: (5) Hematuria: (6) Acute kidney injury: (7) Parkinson disease: PLAN: Plan 78 year old male with Parkinson Disease, hospitalized for bowel obstruction/sigmoid volvulus, underwent partial colectomy/colostomy 12/15/2023, complicated by fever, urinary retention, hematuria, SARITHA, admitted to TCU with debility, here for rehabilitation, strengthening, prior to discharge home alone. * Debility - PT/OT. * Dysphagia - ST. * Pain - Tylenol 1000mg q6 prn pain (1-10). * Bowel - senna/colace 1 tablet bid prn. * Adult immunization - Administer pneumonia vaccine, covid vaccine, flu vaccine as appropriate. * DVT prophylaxis - Hold, hematuria. * Parkinson Disease - Sinemet 25/100mg 1.5 am, 1 tablet bid, Sinemet 50/200mg 1/2 tablet qhs, Amantadine 100mg daily. * Hypertension - Coreg 6.25mg bidcm. * Nutrition - Ensure 120ml 4x/day. * GERD - Pantoprazole 40mg daily. * BPH/urinary retention - Tamsulosin 0.4mg daily, indwelling cohen catheter.
[2023-12-24] MEDS: Carvedilol 6.25 MG Tablet PO (21:52)
[2023-12-24] MEDS: CARBIDOPA/LEVODOPA CR 50/200 Tablet PO (21:52)
[2023-12-25] MEDS: Ensure Plus High Protein 120 ML LIQUID PO ×4 (05:11→21:44)
[2023-12-25 05:52] LABS: Absolute Lymphocyte Count 0.94 X10^3/uL (0.83-4.51); Absolute Neutrophil Count 7.8 X10^3/uL (2.0-7.7); Basophil# 0.04 X10^3/uL; Basophil% 0.4 % (0-1); Eosinophil# 0.07 X10^3/uL; Eosinophils% 0.7 % (0-5); Hematocrit 27.3 % (40-54); Hemoglobin 9.1 g/dL (13.0-16.5); Lymphocyte # 0.94 X10^3/ul (0.83-4.51); Lymphocyte % 9.7 % (19-41); Mean Corp Hgb Conc 33.3 g/dL (32-36); Mean Corpuscular Hgb 31.9 pg (27.0-32.0); Mean Corpuscular Volume 95.8 fL (80-94); Mean Platelet Vol. 10.1 fl (6.2-12.0); Monocyte% 6.2 % (0-10); NRBC Flagged by Analyzer 0 % (0-5); Neutrophil # 7.84 X10^3/uL (2.7-7.7); Platelet Count 341 K/mm3 (150-450); RBC Distribution Width SD 51.8 fl (35.1-43.9); Red Blood Count 2.85 M/mm3 (4.6-6.2); White Blood Count 9.7 K/mm3 (4.4-11.0)
[2023-12-25 06:07] LABS: Anion Gap 5 (5-15); BUN 12 mg/dL (7-18); BUN/Creat Ratio 14.4 RATIO (10-20); Calcium,Total 7.7 mg/dL (8.5-10.1); Chloride 103 mmol/L (98-107); Creatinine, Serum 0.84 mg/dL (0.70-1.30); EST Glomerular Filtration Rate 95 mL/min (>60); Est Glom Filt Rate - Afr Amer 115 mL/min (>60); Estimated Creatinine Clearance 76.04 ml/min; Glucose 114 mg/dL (74-106); Potassium 4.4 mmol/L (3.5-5.1); Sodium Level 137 mmol/L (136-145)
[2023-12-25] MEDS: Pantoprazole Sodium 40 MG Tablet PO (08:57)
[2023-12-25] MEDS: Carvedilol 6.25 MG Tablet PO ×2 (08:57→18:02)
[2023-12-25 09:02] LABS: Iron 25 ug/dL (65-175)
[2023-12-25 09:08] VITALS: BP 115/69; PULSE 70
[2023-12-25] MEDS: Carbidopa/Levodopa 25/100 Tablet PO ×3 (10:10→16:35)
[2023-12-25] MEDS: Tuberculin,Purif.prot.deriv. 50 TU/ML Vial 0.1 ML ID (10:56)
[2023-12-25 11:00] VITALS: PULSE 63; RESP 18; O2SAT 96
[2023-12-25] MEDS: Amantadine 100 MG Capsule PO (12:46)
--- NOTE | 2023-12-25 13:00 | NURSING ---
Separations Scientist note; Activity Asset: Coral Mcguire is independent in his choice of daily activities. He enjoys reading, word puzzles and visiting w/his girls. He will watch some tv now and then but prefers reading the most. Maynor welcomes visits from the mail sorter and therapy dog when available. Staff will remind him of weekly activities and respect his right to say no.
[2023-12-25 15:17] VITALS: BP 110/58; PULSE 73; RESP 16; TEMP 36.6; O2SAT 96
[2023-12-25] MEDS: Tamsulosin HCl 0.4 MG Capsule PO (18:02)
--- NOTE | 2023-12-25 18:47 | PCM.DC.SUM ---
Providers Date of Admission: 12/24/23 Primary Care Physician: Dr. Sarika Montaño MD Consultations 12/24/23 18:49 Consult: Onc/Wound/trial attorney Routine Comment: Reason for Consult:: New colostomy Reason For Visit: SIGMOID VOLVULUS Diagnosis Discharge Diagnosis (1) Debility: Status: Acute Code(s): R53.81 - Other malaise (2) Bowel obstruction: Status: Acute Code(s): K56.609 - Unspecified intestinal obstruction, unspecified as to partial versus complete obstruction Qualifiers: Intestinal obstruction type: volvulus Qualified Code(s): K56.2 - Volvulus (3) Sigmoid volvulus: Status: Acute Code(s): K56.2 - Volvulus (4) Urinary retention: Status: Acute Code(s): R33.9 - Retention of urine, unspecified (5) Hematuria: Status: Acute Code(s): R31.9 - Hematuria, unspecified (6) Acute kidney injury: Status: Acute Code(s): N17.9 - Acute kidney failure, unspecified (7) Parkinson disease: Status: Acute Code(s): G20.A1 - Parkinson's disease without dyskinesia, without mention of fluctuations Medications at Discharge Home Medications amantadine HCl 100 mg capsule 100 mg PO DAILY hill 12/04/23 carbidopa 25 mg-levodopa 100 mg tablet 1.5 tab PO DAILY parkinsons 12/04/23 carbidopa ER 25 mg-levodopa 100 mg tablet,extended release 1 tab PO QHS hill 12/04/23 carbidopa 25 mg-levodopa 100 mg tablet 1 tab PO BID parkinsons 12/13/23 carvedilol 6.25 mg tablet 6.25 mg PO BID Heart #60 tabs 12/24/23 food supplemt, lactose-reduced 0.08 gram-1.5 kcal/mL oral liquid (Ensure Plus High Protein) 120 ml PO 4X/DAY nutrition #237 mL 12/24/23 pantoprazole 40 mg tablet,delayed release 40 mg PO DAILY stomach acid 2 weeks #14 tabs 12/24/23 tamsulosin 0.4 mg capsule 0.4 mg PO DAILY@1730 bladder 30 days #30 caps 12/24/23 Hospital Course Operations - (Segmental small bowel resection with reanastomosis as well as segmental colectomy and creation of end colostomy) Procedures - (Cystoscopy with Ayala catheter placement 12/20/2023) Summary of Care Provided Hospital Course: Patient is 78-year-old male who is admitted to the ICU 12/13/2023 after he was initially diagnosed with sigmoid volvulus and taken to the endoscopy suite emergently for endoscopic decompression. I joined gastroenterology for this procedure where we were successful in removing the volvulus event but patient had a significant stool burden precluding optimal decompression. A rectal tube was placed along with a nasogastric tube and the patient was carefully monitored for the following 2 days. His lactate normalized and his white blood cell count, initially over 20,000?begin to trend downward. However, he had scant output from his rectal tube and the morning of 12/15/2023 he appeared more distended so I made the decision to proceed to the OR for exploratory laparotomy with probable segmental colectomy and end colostomy. Procedure was difficult due to significant adhesions between the colon and the pelvic sidewall as well as the small bowel and the colon. It appeared the patient had evidence of prior sigmoid diverticular disease as the cause for this presentation. Following the procedure patient was returned to the ICU where he did well. Consults were placed to wound and ostomy nursing as well as physical therapy. Although patient's diet was able to be advanced after observation of bowel function, he was evaluated by speech therapy for concern for aspiration and a modified barium swallow study was performed (but with Gastrografin given his recent bowel surgery). Ultimately they concluded he was appropriate for diet advancement and he did well through these transitions. In fact, shortly after the [facility], but due to lack of bed availability he remained in the ICU for several days thereafter. At patient's presentation a Ayala catheter was placed for accurate ins and outs, but his output was immediately liya hematuria. This situation was monitored for 5 days and eventually that hematuria cleared. Thus, I attempted a Ayala catheter removal and spontaneous voiding trial. Unfortunately patient did not tolerate this and quickly required a Ayala catheter placement on the account of occlusive blood clots. On replacement of Ayala catheter patient was initiated on Flomax. 48 hours later a second attempt at Ayala removal was made, but unfortunately this to met the same result. However, this time when catheter was replaced patient had persistent discomfort and urology was notified. On 12/19/2024 urology presented to patient's bedside after nursing was unable to place a larger catheter and performed bedside cystoscopy. This study found patient to have evidence of a false passage, but the true lumen was identified and a 20 Indonesian Ayala catheter was placed. This was used for bladder irrigation as well. Following catheter placement urology recommended outpatient follow-up for Ayala catheter removal. After this issue was resolved, patient continued to receive wound and ostomy care and remained clinically stable. His hemoglobin was monitored for a couple of days inpatient given a drop secondary to his urological trauma. Ultimately this stabilized and he was thus approved for transfer to the transitional care unit. Physical Exam Const alert, oriented x3 and no apparent distress GI GI Narrative: Skin caitlyn in place, well-perfused colostomy in left lower quadrant, soft and nontender to palpation Weight / BMI Weight Weight: 163 lb 7 oz Body Mass Index (BMI) 23.4 ABG / Lab / Microbiology Data 12/26/23 05:10 12/25/23 05:09 Laboratory: Laboratory Results - last 24 hr 12/25/23 05:09: WBC 9.7, RBC 2.85 L, Hgb 9.1 L, Hct 27.3 L, MCV 95.8 H, MCH 31.9, MCHC 33.3, RDW Std Deviation 51.8 H, RDW Coeff of Ann 15.0 H, Plt Count 341, MPV 10.1, Immature Gran % (Auto) 2.000 H, Neut % (Auto) 81.0 H, Lymph % (Auto) 9.7 L, Karnes % (Auto) 6.2, Eos % (Auto) 0.7, Baso % (Auto) 0.4, Absolute Neuts (auto) 7.8 H, Absolute Lymphs (auto) 0.94, Nucleated RBC % 0, Sodium 137, Potassium 4.4, Chloride 103, Carbon Dioxide 29.0, Anion Gap 5, BUN 12, Creatinine 0.84, Estim Creat Clear Calc 76.04, Est GFR (MDRD) Af Amer 115, Est GFR (MDRD) Non-Af 95, BUN/Creatinine Ratio 14.4, Glucose 114 H, Calcium 7.7 L, Iron 25 L D/C Instructions Please Follow Up With: Garth Becerra MD Meaningful Use Info Meaningful Use Diagnoses (Choose all that apply): None applicable Discharge Plan Admission Admit Date/Time: 12/24/23 15:59 Attending Provider: Ravi Conway Chi Primary Care Provider: Sarika Montaño Discharge Orders/Prescriptions Prescriptions: No Action carbidopa-levodopa 25-100 mg tablet 1.5 tab PO DAILY Patient Comments: take 1.5 tablets between 8 and 9 AM carbidopa-levodopa 25-100 mg tablet extended release 1 tab PO QHS Patient Comments: takes at 11 PM before bed amantadine HCl 100 mg capsule 100 mg PO DAILY Patient Comments: takes 1 tablet at noon carbidopa-levodopa 25-100 mg tablet 1 tab PO BID Patient Comments: takes 1 tablet at noon and 1 tablet in the evening tamsulosin 0.4 mg Capsule 0.4 mg PO DAILY@1730 30 Days Qty: 30 0RF pantoprazole 40 mg Tablet,Delayed Release (Dr/Ec) 40 mg PO DAILY 14 Days Qty: 14 0RF Ensure Plus High Protein 0.08 gram-1.5 kcal/mL Liquid 120 ml PO 4X/DAY Qty: 237 0RF carvedilol 6.25 mg Tablet 6.25 mg PO BID Qty: 60 0RF Referrals / Follow Up: Sarika Montaño MD [Primary Care Provider] - Charges/Coding Visit Charges Inpatient E&M: 31800 Disch Hosp
[2023-12-25] MEDS: CARBIDOPA/LEVODOPA CR 50/200 Tablet PO (21:41)
--- NOTE | 2023-12-25 22:56 | NURSING ---
Dr. Kirkland to unit to see patient. Received no new orders. Per patient, incision to remain ANGELITO.
[2023-12-26 06:08] LABS: Hematocrit 29.1 % (40-54); Hemoglobin 9.6 g/dL (13.0-16.5)
[2023-12-26 08:20] VITALS: BP 137/90; PULSE 77; RESP 16; O2SAT 98
[2023-12-26] MEDS: Pantoprazole Sodium 40 MG Tablet PO (08:21)
[2023-12-26] MEDS: Carvedilol 6.25 MG Tablet PO ×2 (08:22→17:06)
[2023-12-26] MEDS: Carbidopa/Levodopa 25/100 Tablet PO ×3 (08:22→17:06)
[2023-12-26] MEDS: Amantadine 100 MG Capsule PO (08:22)
--- NOTE | 2023-12-26 12:09 | CASEMGMT ---
Social Work SW met w/pt and daughter Susy in room, introduced self, role of SW in TCU. SW verified contacts. SW reviewed code status, pt confirmed is a full code. Susy provided LW/POA forms, she is POA and daughter Carmella is listed as second. SW explained to pt and family there will be a plan of care meeting in the next week to start speaking about discharge plan. SW explained the Medicare insurance SNF benefit, did mention to them that generally speaking the length of stay in TCU is 30 days or less. Both state understanding. Pt's goal will be to go home from TCU, if I can. Pt would like to meet w/[facility] to learn about their services. Pt open to home health. SW will continue to follow for discharge needs. CATIA Ha
[2023-12-26] MEDS: Ensure Plus High Protein 120 ML LIQUID PO ×3 (12:49→20:39)
--- NOTE | 2023-12-26 13:33 | CASEMGMT ---
Social Work Pt's daughter Susy provided LW/POA to SW, SW copied the documents and gave the daughter the originals back, copies now on chart. Daughter Susy is listed as healthcare POA. CATIA Ha
--- NOTE | 2023-12-26 15:01 | WOUNDNOTE ---
Colosotmy appliance changed today. stoma remains well budded and pink. peristomal skin is intact. surgical incision is well approximated with caitlyn. some mild redness noted. no drainage noted. cleansed peristomal skin with warm water. pat dry. applied a new 2 piece flat Mel appliance with a small amount of stoma paste. patient tolerated well. pt very fatigued after therapy today. will need to continue with ostomy teaching while patient is more awake.
--- NOTE | 2023-12-26 15:53 | PHA.CONS_ITS ---
TCU RX Drug Regimen Review Subjective/Objective Subjective/Objective: Subjective: 78 YOM admitted to TCU s/p hospitalization at [facility] for a bowel obstruction which resulted in an exploratory laparotomy with repair and colostomy placement. Hospitalization also complicated by urinary retention with Ayala placement. Admitted to TCU 12/24/23 for strengthening and rehabilitation prior to discharge home where he resides alone. Objective: Allergies No Known Allergies Allergy (Verified 12/13/23 11:57) Current Medications Generic Name Dose Route Start Last Admin Trade Name Freq PRN Reason Stop Dose Admin Acetaminophen 1,000 mg 12/24/23 20:18 Acetaminophen 500 Mg Tablet PO Q6H PRN PRN Pain Score 1-10 Amantadine HCl 100 mg 12/25/23 12:00 12/26/23 08:22 Amantadine 100 Mg Capsule PO 100 mg DAILY GAURI Administration Carbidopa/Levodopa 0.5 tablet 12/24/23 22:00 12/25/23 21:41 Carbidopa/Levodopa Cr 50/200 Tablet PO 0.5 tablet QHS GAURI Administration Carbidopa/Levodopa 1.5 tablet 12/25/23 09:30 12/26/23 08:22 Carbidopa/Levodopa 25/100 Tablet PO 1.5 tablet 0800 GAURI Administration Carbidopa/Levodopa 1 tablet 12/25/23 11:00 12/26/23 11:48 Carbidopa/Levodopa 25/100 Tablet PO 1 tablet BID@1100,1600 GAURI Administration Carvedilol 6.25 mg 12/24/23 22:00 12/26/23 08:22 Carvedilol 6.25 Mg Tablet PO 6.25 mg BIDCM GAURI Administration Protocol Nutritional Formula (Lactose Free) 120 ml 12/24/23 17:00 12/26/23 12:49 Ensure Plus High Protein 120 Ml Liquid PO 120 ml 4X/DAY GAURI Administration Pantoprazole Sodium 40 mg 12/25/23 10:00 12/26/23 08:21 Pantoprazole Sodium 40 Mg Tablet PO 40 mg DAILY GAURI Administration Senna/Docusate Sodium 1 tablet 12/24/23 20:18 Senna/Docusate Sodium 1 Tablet PO BID PRN Constipation Sodium Chloride 10 - 40 ml 12/26/23 08:29 0.9% Saline Lock 10 Ml Syringe IV UD PRN SALINE FLUSH Tamsulosin HCl 0.4 mg 12/24/23 17:30 12/25/23 18:02 Tamsulosin Hcl 0.4 Mg Capsule PO 0.4 mg DAILY@1730 GAURI Administration Tuberculin PPD 0.1 ml 01/01/24 10:00 Tuberculin,Purif.Prot.Deriv. 50 Tu/Ml Vial ID 01/01/24 10:01 X1 ONE Problem List (Updated 12/24/23 @ 20:[address] Ravi Conway MD) Parkinson disease (Acute) Acute kidney injury (Acute) Urinary retention (Acute) Debility (Acute) Hematuria (Acute) Bowel obstruction (Acute) Sigmoid volvulus (Acute) Vital Signs Temp Pulse Resp BP Pulse Ox O2 Del Method 97.8 F 77 16 137/90 H 98 Room Air 12/25/23 15:17 12/26/23 08:20 12/26/23 08:20 12/26/23 08:20 12/26/23 08:20 12/26/23 08:20 Oxygen Delivery Method Room Air Weight: 74.134 kg Body Mass Index (BMI) 23.4 Sodium 137 mmol/L (136-145) 12/25/23 05:09 Potassium 4.4 mmol/L (3.5-5.1) 12/25/23 05:09 Chloride 103 mmol/L (98-107) 12/25/23 05:09 Carbon Dioxide 29.0 mmol/L (21.0-32.0) 12/25/23 05:09 Anion Gap 5 (5-15) 12/25/23 05:09 BUN 12 mg/dL (7-18) 12/25/23 05:09 Creatinine 0.84 mg/dL (0.70-1.30) 12/25/23 05:09 Est GFR (MDRD) Af Amer 115 mL/min (>60) 12/25/23 05:09 Est GFR (MDRD) Non-Af 95 mL/min (>60) 12/25/23 05:09 BUN/Creatinine Ratio 14.4 RATIO (10-20) 12/25/23 05:09 Glucose 114 mg/dL (74-106) H 12/25/23 05:09 Assessment/Plan: 1. Pain: Tylenol 1000mg PO Q6h PRN Pain 1-10. Please continue to monitor for increased/decreased S/S pain, PRN medication usage. - To date, the patient has not required any PRN doses of medication. Pain appears managed at this time. 2. Parkinson Disease: Sinemet 25/100mg 1.5 tab QAM, 1 tab PO 1100 and 1600, Sinemet 50/200mg 1/2 tab PO QHS, Amantadine 100mg PO Daily. Please continue to monitor for dizziness, insomnia, nausea, dyskinesia, swelling, constipation. 3. HTN: Coreg 6.25mg PO BID. Please continue to monitor BP (last 137/90), pulse (last 77 BPM). 4. BPH/Urinary retention: Flomax 0.4mg PO Daily. Please continue to monitor for hematuria, blood pressure, urinary retention. 5. GERD: Protonix 40mg PO Daily. Please continue to monitor for nausea, headache, abdominal pain. Please also encourage non-pharmacologic therapy to help minimize GERD flare-ups, as well. 6. Bowel: Senna/Docusate 1 tab PO BID PRN. Please continue to monitor for increased/decreased constipation and/or diarrhea. -The patient has had 1 bowel movement (on 12/25/23) since admission and required zero doses of PRN medication. Assessment/Plan for indications treated with psychotropic medications: - The patient is not currently on any psychotropic medications at time of discharge medication review. Medical chart and medication regimen reviewed. The following medication irregularities or issues were identified: - No medication issues were identified at time of medication list review. Date Date of Note:: 12/26/23
[2023-12-26 17:04] VITALS: BP 110/63; PULSE 76; RESP 16
[2023-12-26] MEDS: Tamsulosin HCl 0.4 MG Capsule PO (17:06)
--- NOTE | 2023-12-26 18:36 | NURSING ---
Pt's family requested that pt resume Flonase and saline nose spray [home med]. Dr Conway entered orders. Daughter present at bedside throughout afternoon and updated. No further comments/concerns.
[2023-12-26] MEDS: Fluticasone 0.05% 1 SPRAY NASAL.SRY NASAL (20:39)
[2023-12-26] MEDS: Sodium Chloride 0.65% 1 SPRAY SPRAY.BTL NASAL (20:40)
[2023-12-26] MEDS: CARBIDOPA/LEVODOPA CR 50/200 Tablet PO (20:41)
--- NOTE | 2023-12-27 09:16 | WOUNDNOTE ---
wound/stoma photo: abdomen
[2023-12-27] MEDS: Carbidopa/Levodopa 25/100 Tablet PO ×3 (09:58→16:25)
[2023-12-27] MEDS: Carvedilol 6.25 MG Tablet PO ×2 (09:58→17:46)
[2023-12-27] MEDS: Fluticasone 0.05% 1 SPRAY NASAL.SRY NASAL ×2 (09:59→20:58)
[2023-12-27] MEDS: Menthol/Lanolin/Calamine/Znox 113 GM Tube 1 APPLIC TOPICAL ×2 (09:59→21:02)
[2023-12-27] MEDS: Pantoprazole Sodium 40 MG Tablet PO (10:01)
[2023-12-27] MEDS: Sodium Chloride 0.65% 1 SPRAY SPRAY.BTL NASAL ×2 (10:01→20:58)
[2023-12-27] MEDS: Amantadine 100 MG Capsule PO (10:02)
[2023-12-27] MEDS: 0.9% Saline Lock 10 ML Syringe IV (10:05)
[2023-12-27 10:09] VITALS: BP 112/64; PULSE 73
[2023-12-27] MEDS: Ensure Plus High Protein 120 ML LIQUID PO ×3 (12:42→20:59)
--- NOTE | 2023-12-27 13:21 | WOUNDNOTE ---
Pt sitting out in common area visiting with daughter. states he is feeling pretty good today. plan to start ostomy teaching with daughter on Saturday morning. daughter states she will come before work at approx 7:30am. pt agreeable to this plan.
--- NOTE | 2023-12-27 14:45 | CHAPLAIN ---
Type of Pastoral Visit _x__ Initial Visit ___ Follow-up Visit ___ On-call Visit ___ General Patient Visit ___ Spiritual Assessment ___ Family Conference ___ Bereavement ___ Rapid Response ___ Code Blue ___ Other (describe below) Pastoral Care Referral From _x__ Patient ___ Family ___ Nurse ___ Physician ___ Christmas Tree Grower ___ Crossbow Maker ___ Other (describe below) Sacrament/Intervention _x__ Active listening ___ Anointing ___ Tenriism ___ Bereavement ___ Communion _x__ Apple exploration ___ _x__ Life review _x__ Prayer ___ Reconciliation ___ Sacrament of Sick _x__ Supportive presence ___ Wedding ___ Other (describe below) Pastoral Comments patient requested visit from the facing machine operator; pt gives some life review and recounts the blessings of his life and 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
[2023-12-27 14:48] VITALS: BP 101/59; PULSE 73; RESP 16; TEMP 36.4; O2SAT 97
[2023-12-27] MEDS: Tamsulosin HCl 0.4 MG Capsule PO (17:46)
[2023-12-27] MEDS: CARBIDOPA/LEVODOPA CR 50/200 Tablet PO (20:59)
[2023-12-28] MEDS: Ensure Plus High Protein 120 ML LIQUID PO ×4 (06:20→21:29)
[2023-12-28 06:46] LABS: Hemoglobin 9.5 g/dL (13.0-16.5)
[2023-12-28] MEDS: Carvedilol 6.25 MG Tablet PO ×2 (09:00→17:08)
[2023-12-28] MEDS: Fluticasone 0.05% 1 SPRAY NASAL.SRY NASAL ×2 (09:01→21:24)
[2023-12-28] MEDS: Carbidopa/Levodopa 25/100 Tablet PO ×3 (09:01→17:07)
[2023-12-28] MEDS: Amantadine 100 MG Capsule PO (09:02)
[2023-12-28] MEDS: Pantoprazole Sodium 40 MG Tablet PO (09:02)
[2023-12-28] MEDS: Sodium Chloride 0.65% 1 SPRAY SPRAY.BTL NASAL ×2 (09:06→21:24)
[2023-12-28] MEDS: Menthol/Lanolin/Calamine/Znox 113 GM Tube 1 APPLIC TOPICAL ×2 (09:07→21:29)
[2023-12-28] MEDS: 0.9% Saline Lock 10 ML Syringe IV (13:27)
[2023-12-28 13:50] VITALS: BP 111/60; PULSE 67; RESP 22; TEMP 36.4; O2SAT 97
[2023-12-28] MEDS: Tamsulosin HCl 0.4 MG Capsule PO (17:11)
[2023-12-28 19:48] VITALS: PULSE 69; RESP 16; O2SAT 96
[2023-12-28] MEDS: CARBIDOPA/LEVODOPA CR 50/200 Tablet PO (21:25)
[2023-12-29] MEDS: Ensure Plus High Protein 120 ML LIQUID PO ×4 (06:17→21:43)
[2023-12-29 07:25] VITALS: RESP 16
[2023-12-29 08:50] VITALS: BP 115/63; PULSE 73; RESP 17; TEMP 37.4; O2SAT 99
[2023-12-29] MEDS: Carbidopa/Levodopa 25/100 Tablet PO ×3 (08:54→16:52)
[2023-12-29] MEDS: Carvedilol 6.25 MG Tablet PO ×2 (08:54→16:52)
[2023-12-29] MEDS: Menthol/Lanolin/Calamine/Znox 113 GM Tube 1 APPLIC TOPICAL ×2 (08:55→21:46)
[2023-12-29] MEDS: Fluticasone 0.05% 1 SPRAY NASAL.SRY NASAL ×2 (08:55→21:44)
[2023-12-29] MEDS: Pantoprazole Sodium 40 MG Tablet PO (08:56)
[2023-12-29] MEDS: Sodium Chloride 0.65% 1 SPRAY SPRAY.BTL NASAL ×2 (08:56→21:46)
[2023-12-29] MEDS: Amantadine 100 MG Capsule PO (08:57)
[2023-12-29 16:49] VITALS: BP 116/67; PULSE 73
[2023-12-29] MEDS: Tamsulosin HCl 0.4 MG Capsule PO (16:52)
[2023-12-29] MEDS: CARBIDOPA/LEVODOPA CR 50/200 Tablet PO (21:44)
[2023-12-30 05:47] LABS: Hematocrit 30.7 % (40-54)
[2023-12-30] MEDS: Ensure Plus High Protein 120 ML LIQUID PO ×4 (06:30→20:29)
--- NOTE | 2023-12-30 07:54 | WOUNDNOTE ---
In to do ostomy teaching with patient and daughter. daughter states the nurses did show her how to empty the appliance this weekend. showed daughter again today. pt had moderate amount of thick brown stool. removed the ostomy appliance. stoma remains well budded and pink. less edematous today. peristomal skin is intact. cleansed the skin with warm water. pat dry. applied a new 2 piece flat Mel appliance with a paste ring. pt tolerated well. daughter very appreciative of care. will plan more teaching
[2023-12-30] MEDS: Carbidopa/Levodopa 25/100 Tablet PO ×3 (08:15→16:04)
[2023-12-30] MEDS: Carvedilol 6.25 MG Tablet PO ×2 (08:15→17:47)
[2023-12-30] MEDS: Menthol/Lanolin/Calamine/Znox 113 GM Tube 1 APPLIC TOPICAL ×2 (08:16→20:29)
[2023-12-30] MEDS: Fluticasone 0.05% 1 SPRAY NASAL.SRY NASAL ×2 (08:16→20:31)
[2023-12-30] MEDS: Sodium Chloride 0.65% 1 SPRAY SPRAY.BTL NASAL ×2 (08:17→20:31)
[2023-12-30] MEDS: Pantoprazole Sodium 40 MG Tablet PO (08:17)
[2023-12-30] MEDS: Amantadine 100 MG Capsule PO (08:17)
[2023-12-30 08:22] VITALS: BP 114/66; PULSE 73
--- NOTE | 2023-12-30 10:05 | NURSING ---
IN TO TAKE CASTILLO OUT OF ABDOMEN. LEFT OPEN TO AIR. STATED HE CAN TAKE A SHOWER. PLEASES SEE NURSE BEFORE, DUE TO COLOSTOMY.
[2023-12-30] MEDS: 0.9% Saline Lock 10 ML Syringe IV (11:11)
[2023-12-30 12:14] VITALS: BP 99/55; PULSE 62; RESP 16; TEMP 36.2; O2SAT 99
--- NOTE | 2023-12-30 13:45 | PN.SURG_ITS ---
Subjective Subjective Patient seen and examined during AM rounds. He is found resting on the bed in the chair. He states that he is making slow progress with therapy but shares that he is regaining strength. He is eating well and denies any issues from a GI perspective. He reports that his daughter is beginning to learn ostomy care. Objective Data Objective Data Vital Signs: Vital Signs Temp Pulse Resp BP Pulse Ox O2 Del Method 97.1 F L 62 16 99/55 L 99 Room Air 12/30/23 12:14 12/30/23 12:14 12/30/23 12:14 12/30/23 12:14 12/30/23 12:14 12/30/23 12:14 Oxygen Delivery Method Room Air Weight: 163 lb 7 oz Body Mass Index (BMI) 23.4 Intake & Output: Intake and Output for Last 24 Hours 12/28/23 12/29/23 12/30/23 22:59 23:59 23:59 Intake Total 600 / 600 Output Total 1250 / 1250 Balance -650 / -650 Lab / Micro Data 12/30/23 05:16 12/25/23 05:09 Labs: Laboratory Results - last 24 hr 12/30/23 05:16: Hgb 10.0 L, Hct 30.7 L Physical Exam Const oriented x3 and no apparent distress Constitutional Narrative: Patient with automatisms and twitching of his face GI GI Narrative: Ostomy appliance with today's date containing pasty brown stool, laparotomy incision remains approximated with skin caitlyn and is mildly reddened. There is some crusted drainage in the interstices of the caitlyn, however, the incision remains well-approximated. Assessment & Plan Assessment/Plan (1) Sigmoid volvulus: PLAN: Patient is moving a postoperative day 15 from ex lap with small bowel resection, segmental colectomy, and creation of end colostomy. He is doing well and slowly regaining strength. He denies any issues from a GI perspective. On exam, he is well-healing and his skin caitlyn were removed. There is no drainage so no dressing was replaced. I have encouraged patient to shower as he is able to remove some of the old crusted drainage that remains adherent to patient's wound. Continue rehab efforts. Patient is also waiting follow-up with urology for catheter removal. Charges/Coding Visit Charges Inpatient E&M: 67961 [facility] Subs L1
[2023-12-30] MEDS: Senna/Docusate Sodium 1 Tablet PO (14:51)
[2023-12-30] MEDS: Tamsulosin HCl 0.4 MG Capsule PO (17:47)
--- NOTE | 2023-12-30 18:51 | NURSING ---
FAMILY UPDATED ON DR. GRACE VISIT TODAY.
--- NOTE | 2023-12-30 20:02 | CASEMGMT ---
Social Work BIMS () and PHQ-2 () completed for MDS assessment. Annie Doyle MSW WELL DRILL OPERATOR ROTARY DRILL
[2023-12-30] MEDS: CARBIDOPA/LEVODOPA CR 50/200 Tablet PO (20:37)
[2023-12-30 20:52] VITALS: PULSE 68; RESP 14; O2SAT 95
[2023-12-31 08:03] VITALS: BP 124/68; PULSE 72; RESP 20; TEMP 37.1; O2SAT 96
[2023-12-31] MEDS: Ensure Plus High Protein 120 ML LIQUID PO ×4 (08:22→20:57)
[2023-12-31] MEDS: Carvedilol 6.25 MG Tablet PO ×2 (08:22→16:59)
[2023-12-31] MEDS: Carbidopa/Levodopa 25/100 Tablet PO ×3 (08:24→17:01)
[2023-12-31] MEDS: Menthol/Lanolin/Calamine/Znox 113 GM Tube 1 APPLIC TOPICAL ×2 (08:25→21:04)
[2023-12-31] MEDS: Fluticasone 0.05% 1 SPRAY NASAL.SRY NASAL ×2 (08:26→20:58)
[2023-12-31] MEDS: Sodium Chloride 0.65% 1 SPRAY SPRAY.BTL NASAL ×2 (08:27→20:57)
[2023-12-31] MEDS: Pantoprazole Sodium 40 MG Tablet PO (08:27)
[2023-12-31] MEDS: Amantadine 100 MG Capsule PO (08:28)
[2023-12-31 09:07] VITALS: BMI 20.2
--- NOTE | 2023-12-31 14:01 | WOUNDNOTE ---
Pt is off the unit at this time.
[2023-12-31] MEDS: Tamsulosin HCl 0.4 MG Capsule PO ×2 (16:59→17:01)
[2023-12-31] MEDS: CARBIDOPA/LEVODOPA CR 50/200 Tablet PO (20:58)
[2024-01-01 06:23] LABS: Anion Gap 5 (5-15); BUN 21 mg/dL (7-18); BUN/Creat Ratio 23.4 RATIO (10-20); Calcium,Total 8.3 mg/dL (8.5-10.1); Chloride 100 mmol/L (98-107); EST Glomerular Filtration Rate 87 mL/min (>60); Est Glom Filt Rate - Afr Amer 106 mL/min (>60); Estimated Creatinine Clearance 62.09 ml/min; Glucose 114 mg/dL (74-106); Potassium 4.2 mmol/L (3.5-5.1); Sodium Level 135 mmol/L (136-145)
[2024-01-01 06:56] LABS: Absolute Lymphocyte Count 1.23 X10^3/uL (0.83-4.51); Absolute Neutrophil Count 7.1 X10^3/uL (2.0-7.7); Basophil# 0.05 X10^3/uL; Basophil% 0.5 % (0-1); Eosinophil# 0.12 X10^3/uL; Eosinophils% 1.3 % (0-5); Hematocrit 29.4 % (40-54); Hemoglobin 9.7 g/dL (13.0-16.5); Lymphocyte # 1.23 X10^3/ul (0.83-4.51); Lymphocyte % 13.2 % (19-41); Mean Corpuscular Hgb 32.4 pg (27.0-32.0); Mean Corpuscular Volume 98.3 fL (80-94); Mean Platelet Vol. 10.4 fl (6.2-12.0); Monocyte# 0.73 X10^3/uL; Monocyte% 7.8 % (0-10); NRBC Flagged by Analyzer 0 % (0-5); Neutrophil # 7.07 X10^3/uL (2.7-7.7); Neutrophil % 76.1 % (47-70); Platelet Count 346 K/mm3 (150-450); RBC Distribution Width CV 15.4 % (11.6-14.6); RBC Distribution Width SD 55.6 fl (35.1-43.9); Red Blood Count 2.99 M/mm3 (4.6-6.2); White Blood Count 9.3 K/mm3 (4.4-11.0)
[2024-01-01 08:01] VITALS: BP 113/65; PULSE 71; RESP 16; TEMP 36.5; O2SAT 96
--- NOTE | 2024-01-01 08:17 | NURSING ---
Manager Print Note; MDS for 12/31/2023 Complete
[2024-01-01] MEDS: Carvedilol 6.25 MG Tablet PO ×2 (09:21→17:54)
[2024-01-01] MEDS: Carbidopa/Levodopa 25/100 Tablet PO ×3 (09:21→16:56)
[2024-01-01] MEDS: Menthol/Lanolin/Calamine/Znox 113 GM Tube 1 APPLIC TOPICAL ×2 (09:22→21:31)
[2024-01-01] MEDS: Sodium Chloride 0.65% 1 SPRAY SPRAY.BTL NASAL ×2 (09:23→21:28)
[2024-01-01] MEDS: Pantoprazole Sodium 40 MG Tablet PO (09:23)
[2024-01-01] MEDS: Fluticasone 0.05% 1 SPRAY NASAL.SRY NASAL ×2 (09:23→21:28)
[2024-01-01] MEDS: Amantadine 100 MG Capsule PO (09:24)
[2024-01-01] MEDS: Tuberculin,Purif.prot.deriv. 50 TU/ML Vial 0.1 ML ID (09:24)
[2024-01-01] MEDS: Senna/Docusate Sodium 1 Tablet PO (10:32)
--- NOTE | 2024-01-01 10:44 | WOUNDNOTE ---
In to assess the colostomy appliance and try to do more teaching with patient. ostomy appliance remains intact. no sign of leaks noted. ELIZABETH Pearson had just emptied the appliance. Pt is having a lot of difficulty with fine motor skills d/t Parkinson's. This nurse has noticed a progression since admission from the acute care side. this nurse does not feel patient will be able to empty the appliance at home or even snap on and off a disposable pouch. pt may need to discharge to a detention at discharge from TCU. will continue teaching with patient and daughter. will discuss with daughter as well.
[2024-01-01] MEDS: Ensure Plus High Protein 120 ML LIQUID PO ×3 (11:58→21:28)
--- NOTE | 2024-01-01 12:42 | SP.MBSS_ITS ---
Modified Barium Swallow Patient Information Study Date: 01/01/24 Study Time: 12:30 Direct Billable Minutes: 96 Total Minutes procedure & reportin Diagnosis: Parkinson's Disease G20 Referring Physician: Ravi Conway Chi Reason for Referral: Objectively assess swallow function, assess risk for aspiration, and determine recommendations for least restrictive diet textures and compensatory strategies to improve safety of swallow. Medical History: PMH: CKD, Parkinson's disease, MANPREET, Urinary retention, Debility, Hematuria. Pt presented to [facility] ED on 12/13/2023 with sudden onset abdominal pain and associated nausea and vomiting that began at 10 PM the day prior. He was admitted to general surgery service for bowel obstruction and colonoscopy was performed later that day by Dr. Chen and showed poor prep, diverticulosis in the rectosigmoid colon and volvulus with partial decompression achieved during colonoscopy, the mucosa did appear to be somewhat ischemic and there was concern for ischemic colitis.Hospital medicine was consulted for management of his chronic medical issues while hospitalized. He was initially treated with supportive care trying to minimize the need for surgical intervention; however, he did require surgical intervention and was taken to the OR on 12/15/2023 at which time a small bowel resection with a udsm-sy-wqma anastomosis as well as a sigmoid colectomy with creation of end colostomy was performed. He was transferred to ICU for further care and placed on a full liquid diet. ST was consulted for swallowing difficulty. During BSE 12/18/23, he presented with consistent s/s of aspiration with food/drink and was recommended for MBSS prior to diet advancement. Of note, FLEET DRIVER inquired if the patient would be more appropriate for fluoroscopy assessment with use of gastrografin rather than barium due to recent bowel obstruction and Dr. Kirkland agreed. MBSS 12/19/23 revealed moderate-severe oropharyngeal dysphagia with SILENT aspiration of thin liquids by cup and nectar thick liquids by tsp, as well as overt aspiration with thin liquids by tsp despite effortful swallow. Use of chin tuck and effortful swallow were most effective in decreasing the amount of aspiration. Reflexive throat clear/cough was somewhat effective in clearing residues in the laryngeal vestibule. He was recommended for full liquids (due to ongoing GI issues) with strict aspiration precautions and direct supervision. Since MBSS, he has resumed a regular texture / thin liquid diet and has transferred to [facility] TCU for ongoing ST to manage dysphagia. He appears to be tolerating diet without use of chin tuck and effortful swallow. He was recommended repeat MBSS to re-assess swallow function to see if he is safe to swallow without use of chin tuck and effortful swallow due to history of SILENT aspiration from previous MBSS. Per Dr. Conway, the patient is ok to have barium for the evaluation this time. Current Diet Ordered: Regular textures / Thin liquids Dentition: WNL and Natural Teeth Mental Status: WNL Respiratory Status: Oxygenating on Room Air Penetration-Aspiration Scale Penetration-Aspiration Scale: OBJECTIVE ASSESSMENT OF SWALLOW FUNCTION (QUANTITATIVE ? PER TRIAL): PENETRATION / ASPIRATION SCALE (RAI): 1 = does not enter airway 2 = enters airway/above vocal folds/ejected 3 = enters airway/above vocal folds/not ejected 4 = enters airway/contacts vocal folds/ejected 5 = enters airway/contacts vocal folds/not ejected 6 = enters airway/below vocal folds/ejected 7 = enters airway/below vocal folds/not ejected despite effort 8 = enters airway/below vocal folds/no effort VIDEOFLOROSCOPIC SCALE SCORE (RAI): Grade I = aspiration of material that has penetrated into the laryngeal vestibule, intact cough reflex Grade II = aspiration < 10 % of the bolus, intact cough reflex Grade III = aspiration of < 10 % of the bolus, reduced cough reflex or aspiration of > 10 % of the bolus, intact cough reflex Grade IV = aspiration of > 10 % of the bolus, reduced cough reflex Penetration-Aspiration Scale Score Thin Liquid via teaspoon: Result: 1= does not enter airway Thin Liquid via teaspoon Trial 2: Result: 1= does not enter airway Thin Liquid via large single sip: cup: Result: 3= enters airways/above vocal folds/not ejected Thin Liquid via sequential sips: cup: Result: 5= enters airways/contacts vocal folds/not ejected [place] Thick Liquid via small single sip: cup: Result: 1= does not enter airway Pudding via teaspoon: Result: 1= does not enter airway Thin Liquid via single sip: straw: Result: 5= enters airways/contacts vocal folds/not ejected 1/2 Cookie : Result: 1= does not enter airway Comment: Esophageal screen Thin Liquid via small single sip: cup: Result: 1= does not enter airway Comment: Cued small sip. Esophageal screen. Oral Phase Labial Seal: Interlabial escape, no progression to anterior lip Tongue Control During Bolus Hold: Escape to lateral buccal cavity/floor of mouth Bolus Preparation/Mastication: Slow prolonged chewing/mashing with complete recollection Bolus Transport/Lingual Motion: Repetitive/disorganized tongue motion Oral Residue: Residue collection on oral structures (piecemeal with pudding) Pharyngeal Phase Initiation of Pharyngeal Swallow: Bolus head in valleculae Soft Palate Elevation: Trace column of contrast/air between soft palate and pharyngeal wall Laryngeal Elevation: Partial superior movement thyroid cart/partial apprx aryt- epig petiole Anterior Hyoid Excursion: Partial anterior movement Epiglottic Movement: Partial inversion Laryngeal Vestibule Closure at Height of Swallow: Incomplete; narrow column of air/contrast in laryngeal vestibule Pharyngeal Stripping Wave: Present - diminished Pharyngoesophageal Segment Opening: Parital distension and partial duration; parital obstruction of flow Tongue Base Retraction: Wide column of contrast between tongue base & post. pharyngeal wall Pharyngeal Residue: Collection of residue within or on pharyngeal structures Esophageal Phase Esophageal Clearance: Esophageal retention w/ retrograde flow below pharyngoesophageal seg. Diagnosis/Impression Diagnosis: Mild-moderate oropharyngeal dysphagia R13.12 Impression: The oral phase is primarily marked by... -Decreased bolus control with the bolus spilling to the lateral buccal cavity and floor of mouth. -Repetitive and disorganized tongue motion for A-P transport with piecemeal deglutition of pudding and cookie trials. -Mild oral residue after the swallow with large sips/bites, which mostly cleared with independent initiation of multiple swallows as needed. Of note, oral residue of pudding and cookie also cleared with independent initiation of multiple swallows. -Slow and prolonged, but adequate mastication of cookie trial. The pharyngeal phase is primarily marked by... -Decreased airway closure during the swallow due to mildly decreased anterior hyoid excursion, partial epiglottic inversion, and mildly decreased laryngeal elevation. -Moderately decreased tongue base retraction, moderately decreased pharyngeal stripping wave, and mildly decreased UES opening/duration with resulting moderate pharyngeal residues after the swallow. -Consistent laryngeal penetration across thin liquid consistencies via cup and straw. Thin liquid trials did not reliably eject from the laryngeal vestibule after the swallow. Use of cough and re-swallow was somewhat effective in decreasing residues remaining in the laryngeal vestibule. No aspiration was observed. Of note, with deep laryngeal penetration of thin liquids to the vocal folds, no cough reflex was elicited so the patient may be at risk for silent aspiration. The esophageal phase is primarily marked by... -Esophageal retention of cookie in mid and lower esophagus with retrograde flow well below the PES. Thin liquid wash was effective in clearing cookie residue from the lower esophagus. Recommendations Diet: Regular Textures and Thin Liquids Compensatory Strategies: Small Bites, Small Sips (Intermittent cough and re- swallow), Slow Rate (Sips one at a time), Alternate bites/solids and sips/liquids, Sitting upright and Remain sitting upright for 30 minutes after PO intake Supervision: Distant Supervision Recommend Repeat Modified Barium Swallow: Yes (Please consider annual MBSS to monitor dysphagia and aspiration risk given hx of PD.) Need for Skilled Speech Therapy Services: Yes Comment: -Train the patient in use of strategies to decrease risk for aspiration. -Ongoing assessment of diet tolerance of recommended textures. -Continue oropharyngeal exercise program (Effortful, Brie, Bonita, CTAR). Once independent with exercise program, will recommend maintenance exercise program due to hx of PD. Education Completed: 1. Described result of evaluation., 2. Pt understands evaluation & agrees with goals and treatment plan. and 4. Family/caregivers understand evaluation & agree w/ goals & tx plan. Status Active ST Patient: Active Contact Information [facility] Speech Therapy:: Cami Adhikari M.A. [facility]-FLEET DRIVER? Speech-Language Pathologist?? [facility] [address]?? [place] [address]?? [email or web address]?? [phone]??
--- NOTE | 2024-01-01 12:50 | NURSING ---
Addendum entered by Michel Moyer 01/01/24 14:29: PT RETURNED TO FLOOR FROM SWALLOW STUDY AT 1310 Original Note: PT LT FLOOR FOR SWALLOW TEST BY WHEELCHAIR AT 1235. DAUGHTER WITH PT.
--- NOTE | 2024-01-01 12:52 | NURSING ---
PT STOOL IS SOFT BUT FORMED IN COLOSTOMY BAG. HAS PRN SENOKOT. LT NOTE FOR FOR SCHEDULED STOOL SOFTENER. RN AWARE
--- NOTE | 2024-01-01 13:28 | CASEMGMT ---
Social Work IDT met with patient and dtr then dtr via conference call for care plan meeting. Discussed patient's progress in PT/OT/ST/SN. Educated to Medicare benefit and copay coverage. Pt's goal is to return home alone. Broached topic of discussing alternative DC plan. Educated to 13/05 care with GAS METER MECHANIC, [place] or SNF options and patient liability. Offered resources of options. Dtrs requesting SNF list for [facility]. Local dtr, DUGLAS printed list and provided to her; out of state dtr, email link sent to provided email. SNF list provided was in preferred area with quality and resource data via [facility]Port Guide. SW provided estimated pricing for TCU and standalone SNF and if unable to pay privately, offered Medicaid. DUGLAS will continue to follow for DC planning. BRANDO LindsayW
[2024-01-01 17:57] VITALS: BP 131/68; PULSE 70
[2024-01-01] MEDS: CARBIDOPA/LEVODOPA CR 50/200 Tablet PO (21:28)
[2024-01-02 05:36] LABS: Hematocrit 29.9 % (40-54); Hemoglobin 9.7 g/dL (13.0-16.5)
[2024-01-02] MEDS: Fluticasone 0.05% 1 SPRAY NASAL.SRY NASAL ×2 (08:54→22:16)
[2024-01-02] MEDS: Sodium Chloride 0.65% 1 SPRAY SPRAY.BTL NASAL ×2 (08:54→22:17)
[2024-01-02] MEDS: Carbidopa/Levodopa 25/100 Tablet PO ×3 (08:56→16:17)
[2024-01-02] MEDS: Carvedilol 6.25 MG Tablet PO ×2 (08:56→17:15)
[2024-01-02] MEDS: Pantoprazole Sodium 40 MG Tablet PO (08:57)
[2024-01-02] MEDS: Menthol/Lanolin/Calamine/Znox 113 GM Tube 1 APPLIC TOPICAL ×2 (08:58→22:17)
[2024-01-02] MEDS: Amantadine 100 MG Capsule PO (08:58)
[2024-01-02] MEDS: Senna/Docusate Sodium 1 Tablet PO (09:04)
[2024-01-02 09:09] VITALS: BP 122/71; PULSE 70
[2024-01-02] MEDS: Ensure Plus High Protein 120 ML LIQUID PO ×3 (12:01→22:14)
[2024-01-02 16:00] VITALS: BP 103/64; PULSE 65; RESP 16; TEMP 35.8; O2SAT 93
--- NOTE | 2024-01-02 16:09 | NURSING ---
CHANGED PT. COLOSTOMY PER ORDER. STOMA BEEFY AND RED. PT. TOLERATED WELL. NO COMPLAINTS.
[2024-01-02] MEDS: Tamsulosin HCl 0.4 MG Capsule PO (17:15)
[2024-01-02] MEDS: CARBIDOPA/LEVODOPA CR 50/200 Tablet PO (22:16)
[2024-01-03 06:02] LABS: Hematocrit 30.1 % (40-54); Hemoglobin 9.7 g/dL (13.0-16.5)
[2024-01-03] MEDS: Carvedilol 6.25 MG Tablet PO ×2 (08:11→17:10)
[2024-01-03] MEDS: Pantoprazole Sodium 40 MG Tablet PO (08:12)
[2024-01-03] MEDS: Amantadine 100 MG Capsule PO (08:12)
[2024-01-03] MEDS: Carbidopa/Levodopa 25/100 Tablet PO ×3 (08:12→17:09)
[2024-01-03] MEDS: Senna/Docusate Sodium 1 Tablet PO (08:12)
[2024-01-03] MEDS: Menthol/Lanolin/Calamine/Znox 113 GM Tube 1 APPLIC TOPICAL ×2 (08:13→21:26)
[2024-01-03] MEDS: Sodium Chloride 0.65% 1 SPRAY SPRAY.BTL NASAL ×2 (08:13→21:23)
[2024-01-03] MEDS: Fluticasone 0.05% 1 SPRAY NASAL.SRY NASAL ×2 (08:13→21:23)
[2024-01-03] MEDS: Ensure Plus High Protein 120 ML LIQUID PO ×3 (12:46→21:23)
[2024-01-03 15:33] VITALS: BP 98/65; PULSE 76; RESP 14; TEMP 36.6; O2SAT 99
[2024-01-03] MEDS: Tamsulosin HCl 0.4 MG Capsule PO (17:10)
[2024-01-03] MEDS: CARBIDOPA/LEVODOPA CR 50/200 Tablet PO (21:23)
[2024-01-04] MEDS: Menthol/Lanolin/Calamine/Znox 113 GM Tube 1 APPLIC TOPICAL ×2 (09:29→22:23)
[2024-01-04 09:30] VITALS: BP 140/74; PULSE 72; RESP 18; O2SAT 98
[2024-01-04] MEDS: Pantoprazole Sodium 40 MG Tablet PO (09:31)
[2024-01-04] MEDS: Carvedilol 6.25 MG Tablet PO ×2 (09:31→17:45)
[2024-01-04] MEDS: Fluticasone 0.05% 1 SPRAY NASAL.SRY NASAL ×2 (09:33→22:23)
[2024-01-04] MEDS: Carbidopa/Levodopa 25/100 Tablet PO ×3 (09:33→16:21)
[2024-01-04] MEDS: Senna/Docusate Sodium 1 Tablet PO (09:34)
[2024-01-04] MEDS: Amantadine 100 MG Capsule PO (09:34)
[2024-01-04] MEDS: Sodium Chloride 0.65% 1 SPRAY SPRAY.BTL NASAL ×2 (09:34→22:23)
[2024-01-04 12:46] VITALS: TEMP 36.3
[2024-01-04] MEDS: Ensure Plus High Protein 120 ML LIQUID PO ×3 (12:52→22:23)
[2024-01-04 17:43] VITALS: BP 111/72; PULSE 75
[2024-01-04] MEDS: Tamsulosin HCl 0.4 MG Capsule PO (17:45)
[2024-01-04] MEDS: CARBIDOPA/LEVODOPA CR 50/200 Tablet PO (22:25)
--- NOTE | 2024-01-04 23:30 | NURSING ---
Colostomy is leaking on the left side of the wafer. Removed appliance/wafer using an alcohol prep pad. Small amount of brown, formed stool noted. Site and surrounding tissue cleansed w/ soap and water, alcohol prep pad used to removed a small amount of hard stool on the perimeter of the stoma, and skin prep applied to periwound skin and allowed to dry. Appliance/wafer cut per guide, placed over stoma, and held in place per this nurse for several seconds to help appliance/wafer conform to skin. Pt encouraged to remain in supine position for approximately 30 minutes for appliance/wafer to conform to the skin. Periwound skin slightly excoriated. Stoma oval-shaped, beefy red, and moist. Scant amount of blood noted to medial aspect of stoma. Small fluid-filled, light brown blister to proximal midline incision. Pt tolerated appliance/wafer change well. Will continue to monitor.
--- NOTE | 2024-01-05 00:51 | NURSING ---
Pt reports if he is sleeping when Ensure is due at 0600 not to wake him to administer.
[2024-01-05] MEDS: Ensure Plus High Protein 120 ML LIQUID PO ×4 (06:52→22:42)
[2024-01-05 07:57] LABS: Hemoglobin 10.7 g/dL (13.0-16.5)
[2024-01-05 09:22] VITALS: BP 120/67; PULSE 75; RESP 18; TEMP 36.7; O2SAT 99
[2024-01-05] MEDS: Carvedilol 6.25 MG Tablet PO ×2 (09:23→17:24)
[2024-01-05] MEDS: Fluticasone 0.05% 1 SPRAY NASAL.SRY NASAL ×2 (09:23→22:44)
[2024-01-05] MEDS: Carbidopa/Levodopa 25/100 Tablet PO ×3 (09:24→17:24)
[2024-01-05] MEDS: Pantoprazole Sodium 40 MG Tablet PO (09:24)
[2024-01-05] MEDS: Amantadine 100 MG Capsule PO (09:25)
[2024-01-05] MEDS: Senna/Docusate Sodium 1 Tablet PO (09:25)
[2024-01-05] MEDS: Menthol/Lanolin/Calamine/Znox 113 GM Tube 1 APPLIC TOPICAL ×2 (09:27→22:44)
[2024-01-05] MEDS: Sodium Chloride 0.65% 1 SPRAY SPRAY.BTL NASAL ×2 (09:27→22:43)
--- NOTE | 2024-01-05 13:09 | NURSING ---
Pt requesting melatonin due to difficulty sleeping at night, states he took it occaisionally at home. RN called Dr. Conway, received order for PRN Melatonin 5mg HS.
[2024-01-05] MEDS: Tamsulosin HCl 0.4 MG Capsule PO (17:24)
[2024-01-05 17:26] VITALS: BP 116/68; PULSE 75; RESP 18
[2024-01-05] MEDS: CARBIDOPA/LEVODOPA CR 50/200 Tablet PO (22:42)
[2024-01-05] MEDS: MELATONIN 10 MG TABLET 5 MG PO (22:43)
--- NOTE | 2024-01-06 08:26 | MDS.RN ---
Information for the mds was obtained from review of the clinical record, interview of resident, staff, and direct observation of resident's care.
[2024-01-06 08:55] VITALS: BP 130/77; PULSE 74; RESP 18; TEMP 36.9; O2SAT 97
[2024-01-06] MEDS: Carbidopa/Levodopa 25/100 Tablet PO ×3 (08:58→16:56)
[2024-01-06] MEDS: Amantadine 100 MG Capsule PO (08:58)
[2024-01-06] MEDS: Sodium Chloride 0.65% 1 SPRAY SPRAY.BTL NASAL ×2 (08:58→21:57)
[2024-01-06] MEDS: Carvedilol 6.25 MG Tablet PO ×2 (08:59→16:56)
[2024-01-06] MEDS: Pantoprazole Sodium 40 MG Tablet PO (08:59)
[2024-01-06] MEDS: Menthol/Lanolin/Calamine/Znox 113 GM Tube 1 APPLIC TOPICAL ×2 (08:59→21:57)
[2024-01-06] MEDS: Senna/Docusate Sodium 1 Tablet PO (08:59)
[2024-01-06] MEDS: Fluticasone 0.05% 1 SPRAY NASAL.SRY NASAL ×2 (09:01→21:57)
--- NOTE | 2024-01-06 11:02 | NURSING ---
Small fluid-filled, light brown blister to proximal midline incision. Notified Dr. Kirkland, who came to unit to assess pt. Area drained, received verbal orders for daily dressing changes. Pt tolerated well, denies pain.
[2024-01-06] MEDS: Ensure Plus High Protein 120 ML LIQUID PO ×3 (11:40→21:56)
--- NOTE | 2024-01-06 11:41 | PN.SURG_ITS ---
Subjective Subjective Patient was evaluated resting comfortably in the chair. Dr. Kirkland was contacted following a new finding at the patient's incision of a bullous lesion. Patient denies any new complaints or concerns. Objective Data Objective Data Vital Signs: Vital Signs Temp Pulse Resp BP Pulse Ox O2 Del Method 98.5 F 74 18 130/77 H 97 Room Air 01/06/24 08:55 01/06/24 08:55 01/06/24 08:55 01/06/24 08:55 01/06/24 08:55 01/06/24 08:55 Oxygen Delivery Method Room Air Weight: 139 lb 4.8 oz Body Mass Index (BMI) 20.0 Intake & Output: Intake and Output for Last 24 Hours 01/04/24 01/05/24 01/06/24 23:59 23:59 23:59 Intake Total 1130 / 1130 1130 / 1130 360 / 360 Output Total 1750 / 1750 1370 / 1370 200 / 200 Balance -620 / -620 -240 / -240 160 / 160 Lab / Micro Data 01/05/24 07:14 01/01/24 05:19 Physical Exam GI GI Narrative: Abdomen- soft, nontender. Bullous lesion noted at the mid point of the midline incision. Colostomy flange was folded back to further expose the lesions, which appeared to be a seroma. Qtip was used to puncture the lesions and expose serosanguineous fluid. Area did see, to have much depth. The area did tunnel superior slightly which was further opened with the Qtip without any concerns. Open wound was packed with plain 1/2 packing and covered with gauze and paper tape. The flange was also secured with single piece of tape to hold it out of the way of the wound. Patient tolerated this procedure well. Assessment & Plan Assessment/Plan (1) Postoperative seroma: QUALIFIERS: Surgical complication system/body Area: skin Procedure type: non-dermatologic Qualified Code(s): L76.34 - Postprocedural seroma of skin and subcutaneous tissue following other procedure PLAN: I have evaluated this patient in conjunction with Dr. Kirkland. Recommend changing the packing daily as well as the dressing daily unless the dr joelle is saturated then change more frequently We will follow-up with him on Saturday Charges/Coding Visit Charges Inpatient E&M: 75090 Subs Hosp L1 (no charge; post-op)
--- NOTE | 2024-01-06 11:48 | NURSING ---
Offered covid vaccine, VIS provided. Patient refuses at this time.
--- NOTE | 2024-01-06 14:56 | NURSING ---
Addendum entered by Stefanie Borden 01/06/24 18:30: Dr. Conway updated, received order for w/ C&S. Addendum entered by Stefanie Borden 01/06/24 18:19: pt complaining of pressure, burning to cohen again. Urine noted to brief and pants. Catheter draining dark yellow urine, sediment noted to collection bag. Repositioned pt, changed clothing. Small red, blanching area noted to penis, no open skin areas. Bladder scan shows 3mL. Pt states some relief of symptoms. RN present during assessment. Will continue to monitor for further leaking/symptoms. Original Note: Pt complaining of feeling pressure to lower abdomen and burning sensation to cohen. Catheter draining dark yellow urine, some sediment noted. Repositioned pt, ensured no kinks in tubing. Pt reports immediate relief of symptoms.
[2024-01-06] MEDS: Tamsulosin HCl 0.4 MG Capsule PO (16:56)
[2024-01-06] MEDS: CARBOXYMETHYLCELLULOSE SODIUM 1 DRP DROPS OPHTHALMIC (16:56)
[2024-01-06 16:58] VITALS: BP 140/77; PULSE 75; RESP 18
[2024-01-06 19:18] LABS: Mucous, Urine 0 SEEN /hpf (<or=2+); Squamous Epithelial Cells - UA 0 SEEN /hpf (0-5)
[2024-01-06 19:20] LABS: Color, Urine Yellow (Yellow); Glucose, Dipstick Normal (Normal); Ketone-Dipstick 5 mg/dl (Negative); Leukocyte Esterase-Dipstick 500 /ul (Negative); Nitrite-Dipstick Negative (Negative); Occult Blood-Urine 250 /ul (Negative); Protein-Dipstick 100 mg/dl (Negative); Specific Gravity, Urine 1.025 (1.002-1.030); Urine Bilirubin Dipstick Negative (Negative); Urine Clarity Cloudy (Clear); Urine Urobilinogen Normal (Normal)
[2024-01-06 19:38] LABS: Red Blood Cells-Urine > 100 SEEN /hpf (0-5); White Blood Cells >100 SEEN /hpf (0-5); Yeast-Urine 2+ /hpf (None Seen)
[2024-01-06 19:39] LABS: Bacteria RARE /hpf (None Seen)
[2024-01-06] MEDS: Ciprofloxacin 250 MG Tablet PO (21:54)
[2024-01-06] MEDS: MELATONIN 10 MG TABLET 5 MG PO (21:54)
[2024-01-06] MEDS: CARBIDOPA/LEVODOPA CR 50/200 Tablet PO (21:56)
[2024-01-07] MEDS: Nystatin Powder 15gm Bottle 1 APPLIC TOPICAL ×2 (05:32→20:59)
[2024-01-07] MEDS: Ensure Plus High Protein 120 ML LIQUID PO ×4 (05:33→20:52)
[2024-01-07 06:12] VITALS: O2SAT 95
[2024-01-07] MEDS: Carbidopa/Levodopa 25/100 Tablet PO ×3 (07:52→16:34)
[2024-01-07] MEDS: Carvedilol 6.25 MG Tablet PO ×2 (07:52→16:34)
[2024-01-07] MEDS: Pantoprazole Sodium 40 MG Tablet PO (07:53)
[2024-01-07] MEDS: Ciprofloxacin 250 MG Tablet PO ×2 (07:53→20:53)
[2024-01-07] MEDS: Senna/Docusate Sodium 1 Tablet PO (07:53)
[2024-01-07] MEDS: Amantadine 100 MG Capsule PO (07:53)
[2024-01-07] MEDS: Menthol/Lanolin/Calamine/Znox 113 GM Tube 1 APPLIC TOPICAL ×2 (07:53→20:57)
[2024-01-07] MEDS: Fluticasone 0.05% 1 SPRAY NASAL.SRY NASAL ×2 (07:54→20:53)
[2024-01-07] MEDS: Sodium Chloride 0.65% 1 SPRAY SPRAY.BTL NASAL ×2 (07:55→20:53)
[2024-01-07] MEDS: CARBOXYMETHYLCELLULOSE SODIUM 1 DRP DROPS OPHTHALMIC ×2 (11:19→20:56)
[2024-01-07 13:05] VITALS: BP 120/75; PULSE 65; RESP 16; TEMP 36.3; O2SAT 97
--- NOTE | 2024-01-07 15:12 | WOUNDNOTE ---
wound photo: abdomen
--- NOTE | 2024-01-07 15:12 | WOUNDNOTE ---
stoma photo: abdomen
--- NOTE | 2024-01-07 15:20 | WOUNDNOTE ---
the colosotmy appliance was loosening near the surgical incision. removed the appliance. cleansed skin with warm water. stoma remains pink and moist. stoma sits just above skin level. peristomal skin slightly irritated. applied new 2 piece flat Mel appliance with small amount of stoma paste. pt tolerated well. see stoma photo.
[2024-01-07] MEDS: Tamsulosin HCl 0.4 MG Capsule PO (16:34)
[2024-01-07] MEDS: CARBIDOPA/LEVODOPA CR 50/200 Tablet PO (20:53)
[2024-01-08 06:03] LABS: Absolute Lymphocyte Count 1.34 X10^3/uL (0.83-4.51); Absolute Neutrophil Count 5.8 X10^3/uL (2.0-7.7); Basophil# 0.06 X10^3/uL; Basophil% 0.8 % (0-1); Eosinophils% 1.3 % (0-5); Hematocrit 31.4 % (40-54); Lymphocyte # 1.34 X10^3/ul (0.83-4.51); Lymphocyte % 16.8 % (19-41); Mean Corp Hgb Conc 31.8 g/dL (32-36); Mean Corpuscular Volume 97.2 fL (80-94); Mean Platelet Vol. 10.2 fl (6.2-12.0); Monocyte# 0.64 X10^3/uL; NRBC Flagged by Analyzer 0 % (0-5); Neutrophil # 5.77 X10^3/uL (2.7-7.7); Neutrophil % 72.2 % (47-70); Platelet Count 319 K/mm3 (150-450); RBC Distribution Width SD 53.9 fl (35.1-43.9); Red Blood Count 3.23 M/mm3 (4.6-6.2)
[2024-01-08 06:38] LABS: Anion Gap 4 (5-15); BUN 18 mg/dL (7-18); Calcium,Total 8.6 mg/dL (8.5-10.1); Chloride 101 mmol/L (98-107); EST Glomerular Filtration Rate 77 mL/min (>60); Est Glom Filt Rate - Afr Amer 93 mL/min (>60); Glucose 101 mg/dL (74-106); Potassium 4.4 mmol/L (3.5-5.1); Sodium Level 137 mmol/L (136-145)
[2024-01-08] MEDS: Carbidopa/Levodopa 25/100 Tablet PO ×3 (08:09→16:12)
[2024-01-08] MEDS: Carvedilol 6.25 MG Tablet PO ×2 (08:09→17:23)
[2024-01-08] MEDS: Menthol/Lanolin/Calamine/Znox 113 GM Tube 1 APPLIC TOPICAL ×2 (08:10→20:56)
[2024-01-08] MEDS: Nystatin Powder 15gm Bottle 1 APPLIC TOPICAL ×2 (08:11→20:57)
[2024-01-08] MEDS: Sodium Chloride 0.65% 1 SPRAY SPRAY.BTL NASAL ×2 (08:11→20:53)
[2024-01-08] MEDS: Fluticasone 0.05% 1 SPRAY NASAL.SRY NASAL ×2 (08:13→20:53)
[2024-01-08] MEDS: Ciprofloxacin 250 MG Tablet PO ×2 (08:14→20:53)
[2024-01-08] MEDS: Pantoprazole Sodium 40 MG Tablet PO (08:15)
[2024-01-08] MEDS: Amantadine 100 MG Capsule PO (08:15)
[2024-01-08] MEDS: Senna/Docusate Sodium 1 Tablet PO (08:15)
[2024-01-08 08:19] VITALS: BP 117/71; PULSE 80
[2024-01-08] MEDS: Ensure Plus High Protein 120 ML LIQUID PO ×3 (11:59→20:53)
[2024-01-08 15:33] VITALS: BP 108/64; PULSE 76; RESP 16; TEMP 36.6; O2SAT 95
[2024-01-08] MEDS: Tamsulosin HCl 0.4 MG Capsule PO (17:23)
[2024-01-08] MEDS: CARBOXYMETHYLCELLULOSE SODIUM 1 DRP DROPS OPHTHALMIC (17:24)
[2024-01-08] MEDS: CARBIDOPA/LEVODOPA CR 50/200 Tablet PO (20:53)
[2024-01-09] MEDS: Ensure Plus High Protein 120 ML LIQUID PO ×4 (06:34→22:23)
[2024-01-09] MEDS: Carbidopa/Levodopa 25/100 Tablet PO ×3 (08:45→16:26)
[2024-01-09] MEDS: Senna/Docusate Sodium 1 Tablet PO (08:46)
[2024-01-09] MEDS: Amantadine 100 MG Capsule PO (08:46)
[2024-01-09] MEDS: Pantoprazole Sodium 40 MG Tablet PO (08:46)
[2024-01-09] MEDS: Carvedilol 6.25 MG Tablet PO ×2 (08:46→17:59)
[2024-01-09] MEDS: Ciprofloxacin 250 MG Tablet PO ×2 (08:46→22:24)
[2024-01-09] MEDS: Nystatin Powder 15gm Bottle 1 APPLIC TOPICAL ×2 (08:47→22:24)
[2024-01-09] MEDS: Sodium Chloride 0.65% 1 SPRAY SPRAY.BTL NASAL ×2 (08:47→22:23)
[2024-01-09] MEDS: Menthol/Lanolin/Calamine/Znox 113 GM Tube 1 APPLIC TOPICAL ×2 (08:47→22:24)
[2024-01-09] MEDS: Fluticasone 0.05% 1 SPRAY NASAL.SRY NASAL ×2 (08:48→22:23)
[2024-01-09] MEDS: CARBOXYMETHYLCELLULOSE SODIUM 1 DRP DROPS OPHTHALMIC ×2 (08:50→16:26)
[2024-01-09 08:55] VITALS: BP 112/63; PULSE 78
[2024-01-09 10:00] VITALS: PULSE 75; RESP 18; O2SAT 98
--- NOTE | 2024-01-09 10:37 | NURSING ---
PT LEFT FLOOR BY WHEEL CHAIR AT 1035 WITH DAUGHTER FOR APPOINTMENT WITH .
--- NOTE | 2024-01-09 11:46 | NURSING ---
PT RETURNED TO FLOOR WITH DAUGHTER IN WHEEL CHAIR FROM OFFICE AT 1140. NEW ORDERS TO REMOVE PURCELL FOR VOIDING TRIALS. IF NOT ABLE TO VOID,REPLACE PURCELL. RN AWARE
--- NOTE | 2024-01-09 14:53 | NURSING ---
PURCELL REMOVED AT 1430 PER . PT TOLERATED WELL. DRIED DARK BLOOD ON PURCELL CATH END. PT THEN STATED HE THEN FELT LIKE HE HAD TO URINATE. URINAL PLACED. 25 ML OUT WITH DRIED DARK BLOOD PARTICLES NOTED. WILL CONTINUE TO MONITOR.
[2024-01-09 16:00] VITALS: BP 113/65; PULSE 75; RESP 18; TEMP 37; O2SAT 98
[2024-01-09] MEDS: Tamsulosin HCl 0.4 MG Capsule PO (18:00)
[2024-01-09] MEDS: CARBIDOPA/LEVODOPA CR 50/200 Tablet PO (22:23)
[2024-01-09] MEDS: MELATONIN 10 MG TABLET 5 MG PO (22:30)
[2024-01-10] MEDS: Ensure Plus High Protein 120 ML LIQUID PO ×4 (06:08→21:01)
[2024-01-10] MEDS: Fluticasone 0.05% 1 SPRAY NASAL.SRY NASAL (08:36)
[2024-01-10] MEDS: Menthol/Lanolin/Calamine/Znox 113 GM Tube 1 APPLIC TOPICAL ×2 (08:36→21:02)
[2024-01-10] MEDS: Pantoprazole Sodium 40 MG Tablet PO (08:37)
[2024-01-10] MEDS: Sodium Chloride 0.65% 1 SPRAY SPRAY.BTL NASAL ×2 (08:37→21:07)
[2024-01-10] MEDS: Carbidopa/Levodopa 25/100 Tablet PO ×3 (08:37→16:31)
[2024-01-10] MEDS: Carvedilol 6.25 MG Tablet PO ×2 (08:37→16:31)
[2024-01-10] MEDS: Ciprofloxacin 250 MG Tablet PO ×2 (08:37→21:03)
[2024-01-10] MEDS: Nystatin Powder 15gm Bottle 1 APPLIC TOPICAL ×2 (08:37→21:01)
[2024-01-10] MEDS: Senna/Docusate Sodium 1 Tablet PO (08:38)
[2024-01-10] MEDS: Amantadine 100 MG Capsule PO (08:38)
[2024-01-10] MEDS: CARBOXYMETHYLCELLULOSE SODIUM 1 DRP DROPS OPHTHALMIC ×2 (08:43→21:07)
[2024-01-10 12:36] VITALS: BP 109/69; PULSE 72; RESP 18; TEMP 36.2; O2SAT 99
--- NOTE | 2024-01-10 13:15 | CASEMGMT ---
Social Work SW phoned dtr, Anaid, to follow up on DC plans. IDT recommending SNF transfer d/t pt's LOC. Dtr is agreeable and just spoke with pt, whom is realistic with the amount of care he needs as well. Dtr already has noted she will talk with pt and sister to review the list of SNFs already provided. SW requested to have preferences provided to this worker on the following business day. Dtr agreed. SW will continue to follow for DC planning. BRANDO LindsayW
--- NOTE | 2024-01-10 13:58 | WOUNDNOTE ---
wound/stoma photo: abdomen
--- NOTE | 2024-01-10 14:04 | WOUNDNOTE ---
Colostomy appliance removed. there was a moderate amount of formed brown/green stool noted in the appliance. patient observed this nurse changing the appliance. patient attempted to roll the lock n' roll closure, but patient did not have the dexterity to even perform that. this nurse does not feel that patient will be able to change the ostomy appliance or even empty the pouch. could consider disposable pouches, but patient would not be able to snap them together either. patient aware of that fact that the best choice may be correction placement at discharge. patient's dexterity has worsened even since admission. stoma and peristomal skin is intact. no irritation noted today. patient tolerated appliance change well. see wound/stoma photo.
[2024-01-10] MEDS: Tamsulosin HCl 0.4 MG Capsule PO (16:31)
[2024-01-10] MEDS: CARBIDOPA/LEVODOPA CR 50/200 Tablet PO (21:04)
[2024-01-11] MEDS: Ensure Plus High Protein 120 ML LIQUID PO ×4 (05:52→21:07)
[2024-01-11] MEDS: Carvedilol 6.25 MG Tablet PO ×2 (07:53→16:45)
[2024-01-11] MEDS: Carbidopa/Levodopa 25/100 Tablet PO ×3 (07:55→16:40)
[2024-01-11] MEDS: Ciprofloxacin 250 MG Tablet PO ×2 (07:56→21:08)
[2024-01-11] MEDS: Menthol/Lanolin/Calamine/Znox 113 GM Tube 1 APPLIC TOPICAL ×2 (07:56→21:07)
[2024-01-11] MEDS: Nystatin Powder 15gm Bottle 1 APPLIC TOPICAL ×2 (07:57→21:08)
[2024-01-11] MEDS: CARBOXYMETHYLCELLULOSE SODIUM 1 DRP DROPS OPHTHALMIC ×2 (07:58→21:07)
[2024-01-11] MEDS: Sodium Chloride 0.65% 1 SPRAY SPRAY.BTL NASAL ×2 (07:59→21:07)
[2024-01-11] MEDS: Amantadine 100 MG Capsule PO (08:00)
[2024-01-11] MEDS: Senna/Docusate Sodium 1 Tablet PO (08:00)
[2024-01-11] MEDS: Pantoprazole Sodium 40 MG Tablet PO (08:00)
[2024-01-11 08:06] VITALS: BP 105/73; PULSE 76
[2024-01-11 15:04] VITALS: BP 104/62; PULSE 69; RESP 16; TEMP 36.9; O2SAT 99
[2024-01-11] MEDS: Tamsulosin HCl 0.4 MG Capsule PO (16:46)
[2024-01-11 16:51] VITALS: BP 112/69; PULSE 76
[2024-01-11] MEDS: CARBIDOPA/LEVODOPA CR 50/200 Tablet PO (21:09)
--- NOTE | 2024-01-11 21:24 | NURSING ---
Wound dressing changed per policy.
[2024-01-12] MEDS: Ensure Plus High Protein 120 ML LIQUID PO ×4 (05:35→21:13)
[2024-01-12] MEDS: Carvedilol 6.25 MG Tablet PO ×2 (07:39→16:18)
[2024-01-12] MEDS: Menthol/Lanolin/Calamine/Znox 113 GM Tube 1 APPLIC TOPICAL ×2 (07:40→21:16)
[2024-01-12] MEDS: Carbidopa/Levodopa 25/100 Tablet PO ×3 (07:41→16:18)
[2024-01-12] MEDS: Ciprofloxacin 250 MG Tablet PO ×2 (07:41→21:13)
[2024-01-12] MEDS: Nystatin Powder 15gm Bottle 1 APPLIC TOPICAL ×2 (07:43→21:17)
[2024-01-12] MEDS: Sodium Chloride 0.65% 1 SPRAY SPRAY.BTL NASAL ×2 (07:44→21:13)
[2024-01-12] MEDS: Pantoprazole Sodium 40 MG Tablet PO (07:45)
[2024-01-12] MEDS: Senna/Docusate Sodium 1 Tablet PO ×2 (07:46→21:14)
[2024-01-12] MEDS: CARBOXYMETHYLCELLULOSE SODIUM 1 DRP DROPS OPHTHALMIC ×2 (07:46→21:18)
[2024-01-12] MEDS: Amantadine 100 MG Capsule PO (07:46)
[2024-01-12 07:52] VITALS: BP 111/79; PULSE 75
[2024-01-12 14:34] VITALS: BP 110/67; PULSE 80; RESP 17; TEMP 36.6; O2SAT 97
[2024-01-12 14:43] VITALS: PULSE 72; RESP 18; O2SAT 98
[2024-01-12] MEDS: Tamsulosin HCl 0.4 MG Capsule PO (16:19)
--- NOTE | 2024-01-12 17:24 | NURSING ---
Addendum entered by Michel Moyer 01/12/24 18:40: NEW ORDER FOR SENOKOT BID PER Original Note: Pt stool in colostomy is noted to be soft formed instead of loose, Pt is on Senokot QD, will update Dr. Conway.
[2024-01-12] MEDS: CARBIDOPA/LEVODOPA CR 50/200 Tablet PO (21:13)
[2024-01-12] MEDS: Fluticasone 0.05% 1 SPRAY NASAL.SRY NASAL (21:13)
[2024-01-13] MEDS: Ensure Plus High Protein 120 ML LIQUID PO ×4 (05:15→20:43)
[2024-01-13] MEDS: Menthol/Lanolin/Calamine/Znox 113 GM Tube 1 APPLIC TOPICAL ×2 (08:42→20:49)
[2024-01-13] MEDS: Nystatin Powder 15gm Bottle 1 APPLIC TOPICAL ×2 (08:42→20:50)
[2024-01-13 08:43] VITALS: BP 124/73; PULSE 73; RESP 20; O2SAT 98
[2024-01-13] MEDS: Carvedilol 6.25 MG Tablet PO ×2 (08:45→17:54)
[2024-01-13] MEDS: Carbidopa/Levodopa 25/100 Tablet PO ×3 (08:45→17:59)
[2024-01-13] MEDS: Amantadine 100 MG Capsule PO (08:45)
[2024-01-13] MEDS: Ciprofloxacin 250 MG Tablet PO (08:45)
[2024-01-13] MEDS: Senna/Docusate Sodium 1 Tablet PO ×2 (08:46→20:44)
[2024-01-13] MEDS: Pantoprazole Sodium 40 MG Tablet PO (08:46)
[2024-01-13] MEDS: Sodium Chloride 0.65% 1 SPRAY SPRAY.BTL NASAL ×2 (08:46→20:44)
[2024-01-13] MEDS: CARBOXYMETHYLCELLULOSE SODIUM 1 DRP DROPS OPHTHALMIC (08:47)
[2024-01-13 14:16] VITALS: TEMP 36.4
--- NOTE | 2024-01-13 16:35 | PCM.PN.BLA ---
Progress Note Patient seen and examined briefly during his physical therapy session. He is sitting in a chair about to start an exercise when we approach. He reports that he is doing better and gaining strength. His abdomen is examined and his colostomy appliance is intact with thin brown stool in the appliance. Medially his seroma wound is now a small crater and very superficial. There is serosanguineous drainage in its base. Based on the above report and exam I recommend simply covering the seroma wound medial to patient's ostomy appliance and foregoing further packing at this time. Ideally this would follow showering or an opportunity for Mr. Carver to clean this area. Will continue to follow but understand patient discharge planning is ongoing.
[2024-01-13] MEDS: Tamsulosin HCl 0.4 MG Capsule PO (17:54)
[2024-01-13 17:56] VITALS: BP 142/80; PULSE 79; RESP 18
--- NOTE | 2024-01-13 18:03 | NURSING ---
Pt reports worsening Parkinsonian symptoms, requests Sinamet review from . Dr. Conway entered new orders to increase Sinamet dosages; see med list. Pt states that Dr. Kirkland assessed wound to abdomen while at therapy. Per Dr. Kirkland's note, d/c packing wound and cover site.
--- NOTE | 2024-01-13 18:17 | NURSING ---
dr palma updated on pt requesting that sinemet be increased, states gross motor skills and tremors worsening, was on higher dose at home. orders entered.
[2024-01-13] MEDS: CARBIDOPA/LEVODOPA CR 50/200 Tablet PO (20:45)
[2024-01-13] MEDS: MELATONIN 10 MG TABLET 5 MG PO (20:47)
[2024-01-14] MEDS: Senna/Docusate Sodium 1 Tablet PO ×2 (08:38→22:08)
[2024-01-14] MEDS: Carbidopa/Levodopa 25/100 Tablet PO ×3 (08:38→16:47)
[2024-01-14] MEDS: Carvedilol 6.25 MG Tablet PO ×2 (08:38→16:47)
[2024-01-14] MEDS: Amantadine 100 MG Capsule PO (08:38)
[2024-01-14] MEDS: Menthol/Lanolin/Calamine/Znox 113 GM Tube 1 APPLIC TOPICAL ×2 (08:39→22:13)
[2024-01-14] MEDS: Pantoprazole Sodium 40 MG Tablet PO (08:39)
[2024-01-14] MEDS: CARBOXYMETHYLCELLULOSE SODIUM 1 DRP DROPS OPHTHALMIC ×2 (08:39→22:09)
[2024-01-14] MEDS: Sodium Chloride 0.65% 1 SPRAY SPRAY.BTL NASAL ×2 (08:39→22:09)
[2024-01-14] MEDS: Nystatin Powder 15gm Bottle 1 APPLIC TOPICAL ×2 (08:40→22:13)
[2024-01-14 09:00] VITALS: BP 118/80; PULSE 75; RESP 14; TEMP 36.4; O2SAT 99; BMI 20.5
[2024-01-14] MEDS: Ensure Plus High Protein 120 ML LIQUID PO ×3 (11:25→22:09)
--- NOTE | 2024-01-14 14:52 | WOUNDNOTE ---
wound/stoma photo: abdomen
[2024-01-14] MEDS: Tamsulosin HCl 0.4 MG Capsule PO (16:47)
[2024-01-14 16:49] VITALS: BP 119/73; PULSE 68
[2024-01-14] MEDS: Fluticasone 0.05% 1 SPRAY NASAL.SRY NASAL (22:08)
[2024-01-14] MEDS: CARBIDOPA/LEVODOPA CR 50/200 Tablet PO (22:08)
[2024-01-14] MEDS: MELATONIN 10 MG TABLET 5 MG PO (22:11)
[2024-01-14 22:15] VITALS: PULSE 73; RESP 16; O2SAT 96
[2024-01-15 05:54] LABS: Absolute Lymphocyte Count 1.59 X10^3/uL (0.83-4.51); Absolute Neutrophil Count 5.1 X10^3/uL (2.0-7.7); Basophil# 0.06 X10^3/uL; Basophil% 0.8 % (0-1); Eosinophil# 0.14 X10^3/uL; Eosinophils% 1.9 % (0-5); Hematocrit 31.4 % (40-54); Lymphocyte # 1.59 X10^3/ul (0.83-4.51); Lymphocyte % 21.1 % (19-41); Mean Corp Hgb Conc 31.8 g/dL (32-36); Mean Corpuscular Hgb 30.7 pg (27.0-32.0); Mean Corpuscular Volume 96.3 fL (80-94); Mean Platelet Vol. 10.1 fl (6.2-12.0); Monocyte# 0.58 X10^3/uL; Monocyte% 7.7 % (0-10); NRBC Flagged by Analyzer 0 % (0-5); Neutrophil # 5.11 X10^3/uL (2.7-7.7); Neutrophil % 67.6 % (47-70); Platelet Count 311 K/mm3 (150-450); RBC Distribution Width CV 14.4 % (11.6-14.6); RBC Distribution Width SD 50.6 fl (35.1-43.9); Red Blood Count 3.26 M/mm3 (4.6-6.2); White Blood Count 7.6 K/mm3 (4.4-11.0)
[2024-01-15 08:41] LABS: Anion Gap 3 (5-15); BUN 21 mg/dL (7-18); BUN/Creat Ratio 22.3 RATIO (10-20); Calcium,Total 8.5 mg/dL (8.5-10.1); Chloride 102 mmol/L (98-107); Creatinine, Serum 0.94 mg/dL (0.70-1.30); EST Glomerular Filtration Rate 83 mL/min (>60); Est Glom Filt Rate - Afr Amer 100 mL/min (>60); Estimated Creatinine Clearance 60.38 ml/min; Glucose 105 mg/dL (74-106); Potassium 4.1 mmol/L (3.5-5.1); Sodium Level 136 mmol/L (136-145)
[2024-01-15] MEDS: Carvedilol 6.25 MG Tablet PO ×2 (09:12→16:59)
[2024-01-15] MEDS: Carbidopa/Levodopa 25/100 Tablet PO ×3 (09:13→16:56)
[2024-01-15] MEDS: Menthol/Lanolin/Calamine/Znox 113 GM Tube 1 APPLIC TOPICAL ×2 (09:14→20:49)
[2024-01-15] MEDS: Nystatin Powder 15gm Bottle 1 APPLIC TOPICAL ×2 (09:14→20:49)
[2024-01-15] MEDS: Sodium Chloride 0.65% 1 SPRAY SPRAY.BTL NASAL ×2 (09:16→20:48)
[2024-01-15] MEDS: Pantoprazole Sodium 40 MG Tablet PO (09:17)
[2024-01-15] MEDS: Senna/Docusate Sodium 1 Tablet PO (09:17)
[2024-01-15] MEDS: Amantadine 100 MG Capsule PO (09:18)
[2024-01-15] MEDS: CARBOXYMETHYLCELLULOSE SODIUM 1 DRP DROPS OPHTHALMIC (09:18)
[2024-01-15 09:23] VITALS: BP 128/62; PULSE 74
[2024-01-15 10:30] VITALS: O2SAT 99
[2024-01-15 11:00] VITALS: PULSE 74; RESP 16; O2SAT 99
[2024-01-15] MEDS: Ensure Plus High Protein 120 ML LIQUID PO ×3 (11:42→20:49)
--- NOTE | 2024-01-15 14:51 | CHAPLAIN ---
Type of Pastoral Visit ___ Initial Visit _x__ Follow-up Visit ___ On-call Visit ___ General Patient Visit ___ Spiritual Assessment ___ Family Conference ___ Bereavement ___ Rapid Response ___ Code Blue ___ Other (describe below) Pastoral Care Referral From _x__ Patient ___ Family ___ Nurse ___ Physician ___ Building Energy Retrofit Technician ___ Photograph Editor ___ Other (describe below) Sacrament/Intervention _x__ Active listening ___ Anointing ___ Orthodox ___ Bereavement ___ Communion ___ Apple exploration ___ _x__ Life review _x__ Prayer ___ Reconciliation ___ Sacrament of Sick __x_ Supportive presence ___ Wedding ___ Other (describe below) Pastoral Comments patient mentioned a favorite book of poetry that he is reading and this wage analyst took a few pages and read to him; pt is given time to talk; pt expresses patience and yet is hoping for a time to go home; pt is able to converse on topics of nature and faith; pt welcomes visits and expresses thanks for this one; prayer and presence allowed
[2024-01-15 15:29] VITALS: BP 102/63; PULSE 74; RESP 14; TEMP 36.7; O2SAT 98
[2024-01-15] MEDS: Tamsulosin HCl 0.4 MG Capsule PO (17:00)
[2024-01-15 17:08] VITALS: BP 106/70; PULSE 72
[2024-01-15] MEDS: Senna/Docusate Sodium 1 Tablet 2 TABLET PO (20:48)
[2024-01-15] MEDS: CARBIDOPA/LEVODOPA CR 50/200 Tablet PO (20:50)
[2024-01-16] MEDS: Sodium Chloride 0.65% 1 SPRAY SPRAY.BTL NASAL ×2 (08:07→22:09)
[2024-01-16] MEDS: Menthol/Lanolin/Calamine/Znox 113 GM Tube 1 APPLIC TOPICAL ×2 (08:07→22:08)
[2024-01-16] MEDS: Nystatin Powder 15gm Bottle 1 APPLIC TOPICAL ×2 (08:08→22:09)
[2024-01-16] MEDS: Carvedilol 6.25 MG Tablet PO ×2 (08:09→16:32)
[2024-01-16] MEDS: Carbidopa/Levodopa 25/100 Tablet PO ×3 (08:09→16:32)
[2024-01-16] MEDS: Amantadine 100 MG Capsule PO (08:10)
[2024-01-16] MEDS: Senna/Docusate Sodium 1 Tablet 2 TABLET PO ×2 (08:10→22:13)
[2024-01-16] MEDS: Pantoprazole Sodium 40 MG Tablet PO (08:10)
[2024-01-16] MEDS: CARBOXYMETHYLCELLULOSE SODIUM 1 DRP DROPS OPHTHALMIC ×2 (08:14→22:12)
--- NOTE | 2024-01-16 10:36 | CASEMGMT ---
Social Work SW met with pt and dtr at bedside, then dtr via conference call. Answered pt and dtr's questions. All in agreement pt is unable to return home at this time and will DC to a SNF. SW explained at length pt no longer meets skilled criteria per Medicare guidelines and DC date set for 01/22. Explained appeal rights. Educated to private pay cost at the next SNF but insurance will continue to cover for part B therapies. Dtr's requesting clarification on skilled coverage with Medicare. SW educated to the 100 days benefit, with no days guaranteed; 60 consecutive day break in service to restart the benefit period. Explained the accepting SNF will continuously be assessing pt if he begins meeting skilled criteria to bill [facility] again. Explained if there is a change in condition of pt that the pt could restart with skilled services again. The accepting SNF will assist in making those determinations and communication with pt/family. Pt and dtrs expressed understanding and in agreement with DC date. All parties requesting [facility] Referrals made via [facility]Port. Dtr who lives in [place], [place], also emailed this worker a list of area facilities of interest. SW to review facilities to determine correct LOC and make referrals as appropriate/directed by family. Dtr appreciative. SW will continue to follow. PLAN: DC to SNF, 01/22, intermediate, part B therapies. BRANDO Lindsay
[2024-01-16] MEDS: Ensure Plus High Protein 120 ML LIQUID PO ×3 (11:26→22:15)
[2024-01-16 15:14] VITALS: BP 98/59; PULSE 72; RESP 18; TEMP 36.4; O2SAT 98
[2024-01-16 16:31] VITALS: BP 114/67; PULSE 67
[2024-01-16] MEDS: Tamsulosin HCl 0.4 MG Capsule PO (17:42)
--- NOTE | 2024-01-16 19:58 | DS.PCM_ITS ---
Providers Date of Admission: 12/24/23 Primary Care Physician: Dr. 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 * Debility - PT/OT. * Dysphagia - ST. * Pain - Tylenol 1000mg q6 prn pain (1-10). * Bowel - senna/colace 1 tablet bid prn. * Adult immunization - Administer pneumonia vaccine, covid vaccine, flu vaccine as appropriate. * DVT prophylaxis - Hold, hematuria. * Parkinson Disease - Sinemet 25/100mg 1.5 am, 1 tablet bid, Sinemet 50/200mg 1/2 tablet qhs, Amantadine 100mg daily. * Hypertension - Coreg 6.25mg bidcm. * Nutrition - Ensure 120ml 4x/day. * GERD - Pantoprazole 40mg daily. * BPH/urinary retention - Tamsulosin 0.4mg daily, indwelling cohen catheter. Medications at Discharge Home Medications amantadine HCl 100 mg capsule 100 mg PO DAILY hill 12/04/23 carvedilol 6.25 mg tablet 6.25 mg PO BID Heart #60 tabs 12/24/23 food supplemt, lactose-reduced 0.08 gram-1.5 kcal/mL oral liquid (Ensure Plus High Protein) 120 ml PO 4X/DAY nutrition #237 mL 12/24/23 pantoprazole 40 mg tablet,delayed release 40 mg PO DAILY stomach acid 2 weeks #14 tabs 12/24/23 tamsulosin 0.4 mg capsule 0.4 mg PO DAILY@1730 bladder 30 days #30 caps 12/24/23 carbidopa 25 mg-levodopa 100 mg tablet 2 tab PO 0800 #0 tabs 01/16/24 carbidopa 25 mg-levodopa 100 mg tablet 2 tab PO BID@1100,1600 #0 tabs 01/16/24 carbidopa ER 50 mg-levodopa 200 mg tablet,extended release 1 tab PO QHS #0 tabs 01/16/24 carboxymethylcellulose sodium 0.5 % eye drops (Refresh Tears) 1 drp ophthalmic (eye) Q6H PRN PRN DRY EYES #0 mL 01/16/24 fluticasone propionate 50 mcg/actuation nasal spray,suspension 1 spray NASAL BID #0 grams 01/16/24 melatonin 10 mg sublingual tablet 5 mg (1/2 x 10 mg) PO QHS PRN Insomnia #0 tabs 01/16/24 menthol 0.44 %-zinc oxide 20.6 % topical ointment (Calmoseptine) 1 applic topical BID #0 grams 01/16/24 nystatin 100,000 unit/gram topical powder (Nyamyc) 1 applic topical BID #0 grams 01/16/24 sennosides 8.6 mg-docusate sodium 50 mg tablet (Stool Softener-Stimulant Laxative) 2 tab PO BID #0 tabs 01/16/24 sodium chloride 0.65 % nasal spray aerosol (Deep Sea Nasal) 1 spray NASAL BID #0 mL 01/16/24 sodium chloride 0.65 % nasal spray aerosol (Deep Sea Nasal) 1 spray NASAL BID PRN PRN NASAL DRYNESS #0 mL 01/16/24 Hospital Course Operations - (See below.) Procedures None Summary of Care Provided Minutes Spent on Discharge: 35 Hospital Course: 78 year old male with Parkinson Disease, hospitalized for bowel obstruction/sigmoid volvulus, underwent partial colectomy/colostomy 12/15/2023, complicated by fever, urinary retention, hematuria, MANPREET, admitted to TCU with debility, here for rehabilitation, strengthening, prior to discharge home alone. Discharge to SNF 01/23/2024, intermediate, part b therapies. Physical Exam Const alert General Appearance: cooperative HEENT normocephalic Eyes PERRL and EOMs intact bilaterally Neck supple, no JVD and no carotid bruits Resp normal respiratory effort, normal air movement and clear to auscultation bilaterally Cardio regular rate and regular rhythm GI normal to inspection, nondistended, normoactive bowel sounds, non-tender and non-distended GI Narrative: Midline wound clean. Colostomy LLQ. Bladder / Kidney Exam: catheter in place urethral Extremity normal capillary refill General Extremity: Negative for edema Skin no rashes or lesions noted General Skin Exam: no breakdown Psych affect normal Appearance: appropriate Weight / BMI Weight Weight: 64.864 kg Body Mass Index (BMI) 20.5 ABG / Lab / Microbiology Data 01/15/24 05:10 01/15/24 05:10 D/C Instructions Discharge Diet: No restrictions Discharge Activity: Return to Normal Activity, May Shower and Use Walker Weight Bearing Status: Weight bearing as tolerated Call your doctor if you observe: Fever of 101 or Higher, Inability to urinate, Inability to have a bowel movement, Shortness of breath, Dizziness, Fainting spells, Swelling in the ankles, Chest pain and Uncontrolled pain Additional Instructions: Discharge to SNF 01/23/2024, intermediate, part b therapies. Please Follow Up With: Garth Becerra MD When: As scheduled. Meaningful Use Info Meaningful Use Diagnoses (Choose all that apply): None applicable Discharge Plan Admission Admit Date/Time: 12/24/23 15:59 Primary Reason for Your Visit: Debility. Attending Provider: Ravi Conway Chi Primary Care Provider: Sarika Montaño Instructions Additional Instructions / Restrictions: Discharge to SNF 01/23/2024, intermediate, part b therapies. Discharge Orders/Prescriptions Prescriptions: New carbidopa-levodopa 50-200 mg Tablet Extended Release 1 tab PO QHS Qty: 0 0RF carboxymethylcellulose sodium [Refresh Tears] 0.5 % Drops 1 drp ophthalmic (eye) Q6H PRN PRN (Reason: DRY EYES) Qty: 0 0RF carbidopa-levodopa 25-100 mg Tablet 2 tab PO BID@1100,1600 Qty: 0 0RF carbidopa-levodopa 25-100 mg Tablet 2 tab PO 0800 Qty: 0 0RF fluticasone propionate 50 mcg/actuation [place],Suspension 1 spray NASAL BID Qty: 0 0RF melatonin 10 mg Tablet, Sublingual 5 mg PO QHS PRN (Reason: Insomnia) Qty: 0 0RF menthol-zinc oxide [Calmoseptine] 0.44-20.6 % Ointment 1 applic topical BID Qty: 0 0RF Protocol: *Topical Application Instructions APPLICATION INSTRUCTIONS: Apply to buttocks/ scrotal area sennosides-docusate sodium [Stool Softener-Stimulant Laxat] 8.6-50 mg Tablet 2 tab PO BID Qty: 0 0RF nystatin [Nyamyc] 100,000 unit/gram Powder 1 applic topical BID Qty: 0 0RF Protocol: *Topical Application Instructions APPLICATION INSTRUCTIONS: apply to groin and scrotum Deep Sea Nasal 0.65 % Aerosol,[place] 1 spray NASAL BID Qty: 0 0RF Deep Sea Nasal 0.65 % Aerosol,[place] 1 spray NASAL BID PRN PRN (Reason: NASAL DRYNESS) Qty: 0 0RF Continued amantadine HCl 100 mg capsule 100 mg PO DAILY Patient Comments: takes 1 tablet at noon tamsulosin 0.4 mg Capsule 0.4 mg PO DAILY@1730 30 Days Qty: 30 0RF pantoprazole 40 mg Tablet,Delayed Release (Dr/Ec) 40 mg PO DAILY 14 Days Qty: 14 0RF Ensure Plus High Protein 0.08 gram-1.5 kcal/mL Liquid 120 ml PO 4X/DAY Qty: 237 0RF carvedilol 6.25 mg Tablet 6.25 mg PO BID Qty: 60 0RF Discontinued carbidopa-levodopa 25-100 mg tablet 1.5 tab PO DAILY Patient Comments: take 1.5 tablets between 8 and 9 AM carbidopa-levodopa 25-100 mg tablet extended release 1 tab PO QHS Patient Comments: takes at 11 PM before bed carbidopa-levodopa 25-100 mg tablet 1 tab PO BID Patient Comments: takes 1 tablet at noon and 1 tablet in the evening Referrals / Follow Up: Sarika Montaño MD [Primary Care Provider] - Disposition Disposition (needs filled in before D/C Order can be placed): Detention Facility
--- NOTE | 2024-01-16 20:06 | PCM.TXEXTCAR ---
Diet Diet Order/Speech Therapy: 12/24/23 16:29 Diet: Regular - General Dietary Modifications:: Sodium Restricted Is pt able to select menu?: Yes Diet Comments: 1:1 supervision Routine Orders/Code Status Code Status: Full Code Wound(s) Left Caraballo: Wound Type: Abrasion Midline Incision: Wound Type: Open Surgical Wound Dressing Change: Dry Sterile Dressing Therapies Weight Bearing: Weight bearing as tolerated Extremity Affected:: Bilateral Lower Physical Therapy: Eval and Treat Occupational Therapy: Eval and Treat Problem/Diagnosis (1) Postoperative seroma: Status: Acute Plan 78 year old male with Parkinson Disease, hospitalized for bowel obstruction/sigmoid volvulus, underwent partial colectomy/colostomy 12/15/2023, complicated by fever, urinary retention, hematuria, MANPREET, admitted to TCU with debility, here for rehabilitation, strengthening, prior to discharge home alone. Debility - PT/OT. Dysphagia - ST. Pain - Tylenol 1000mg q6 prn pain (1-10). Bowel - senna/colace 1 tablet bid prn. Adult immunization - Administer pneumonia vaccine, covid vaccine, flu vaccine as appropriate. DVT prophylaxis - Hold, hematuria. Parkinson Disease - Sinemet 25/100mg 1.5 am, 1 tablet bid, Sinemet 50/200mg 1/2 tablet qhs, Amantadine 100mg daily. Hypertension - Coreg 6.25mg bidcm. Nutrition - Ensure 120ml 4x/day. GERD - Pantoprazole 40mg daily. BPH/urinary retention - Tamsulosin 0.4mg daily, indwelling cohen catheter. Allergies/Procedures Done in Hospital Allergies No Known Allergies Allergy (Verified 12/13/23 11:57) Procedures: None Type of Care/Length of Stay Estimated LOS: Convalescent Care Less Than 30 days Type of Care Needed: Intermediate Rehab Potential: Fair Prognosis: Fair Additional Orders/Day of Discharge Day of Discharge: 01/23/24 Dietary and Speech Recommendations Dietitian Recommendations/Changes: Continue Regular Sodium Restricted diet d/t pmhx and issues w/ edema Continue ONS w/ medpass to help w/ skin healing and to help prevent further wt loss Follow Up Care Please follow up with your Primary Care Physician in: Sarika Montaño Please Follow Up With: Garth Becerra MD When: 7-10days Discharge Plan Admission Admit Date/Time: 12/24/23 15:59 Primary Reason for Your Visit: Debility. Attending Provider: Ravi Conway Chi Primary Care Provider: Sarika Montaño Instructions Additional Instructions / Restrictions: Discharge to [facility] 01/23/2024, intermediate, part b therapies. Discharge Orders/Prescriptions Prescriptions: New carbidopa-levodopa 50-200 mg Tablet Extended Release 1 tab PO QHS Qty: 0 0RF carboxymethylcellulose sodium [Refresh Tears] 0.5 % Drops 1 drp ophthalmic (eye) Q6H PRN PRN (Reason: DRY EYES) Qty: 0 0RF carbidopa-levodopa 25-100 mg Tablet 2 tab PO BID@1100,1600 Qty: 0 0RF carbidopa-levodopa 25-100 mg Tablet 2 tab PO 0800 Qty: 0 0RF fluticasone propionate 50 mcg/actuation [place],Suspension 1 spray NASAL BID Qty: 0 0RF melatonin 10 mg Tablet, Sublingual 5 mg PO QHS PRN (Reason: Insomnia) Qty: 0 0RF menthol-zinc oxide [Calmoseptine] 0.44-20.6 % Ointment 1 applic topical BID Qty: 0 0RF Protocol: *Topical Application Instructions APPLICATION INSTRUCTIONS: Apply to buttocks/ scrotal area sennosides-docusate sodium [Stool Softener-Stimulant Laxat] 8.6-50 mg Tablet 2 tab PO BID Qty: 0 0RF nystatin [Nyamyc] 100,000 unit/gram Powder 1 applic topical BID Qty: 0 0RF Protocol: *Topical Application Instructions APPLICATION INSTRUCTIONS: apply to groin and scrotum Deep Sea Nasal 0.65 % Aerosol,[place] 1 spray NASAL BID Qty: 0 0RF Deep Sea Nasal 0.65 % Aerosol,[place] 1 spray NASAL BID PRN PRN (Reason: NASAL DRYNESS) Qty: 0 0RF Continued amantadine HCl 100 mg capsule 100 mg PO DAILY Patient Comments: takes 1 tablet at noon tamsulosin 0.4 mg Capsule 0.4 mg PO DAILY@1730 30 Days Qty: 30 0RF pantoprazole 40 mg Tablet,Delayed Release (Dr/Ec) 40 mg PO DAILY 14 Days Qty: 14 0RF Ensure Plus High Protein 0.08 gram-1.5 kcal/mL Liquid 120 ml PO 4X/DAY Qty: 237 0RF carvedilol 6.25 mg Tablet 6.25 mg PO BID Qty: 60 0RF Discontinued carbidopa-levodopa 25-100 mg tablet 1.5 tab PO DAILY Patient Comments: take 1.5 tablets between 8 and 9 AM carbidopa-levodopa 25-100 mg tablet extended release 1 tab PO QHS Patient Comments: takes at 11 PM before bed carbidopa-levodopa 25-100 mg tablet 1 tab PO BID Patient Comments: takes 1 tablet at noon and 1 tablet in the evening Referrals / Follow Up: Sarika Montaño MD [Primary Care Provider] - Disposition Disposition (needs filled in before D/C Order can be placed): Alf Facility (1) Postoperative seroma Qualifiers: Surgical complication system/body Area: skin Procedure type: non-dermatologic Qualified Code(s): L76.34 - Postprocedural seroma of skin and subcutaneous tissue following other procedure
[2024-01-16 22:00] VITALS: BP 104/60; PULSE 67; RESP 16; TEMP 36.8; O2SAT 97
[2024-01-16] MEDS: CARBIDOPA/LEVODOPA CR 50/200 Tablet PO (22:13)
[2024-01-16] MEDS: MELATONIN 10 MG TABLET 5 MG PO (22:18)
[2024-01-17 05:00] VITALS: RESP 16
[2024-01-17] MEDS: Ensure Plus High Protein 120 ML LIQUID PO ×4 (05:26→21:01)
[2024-01-17] MEDS: Carvedilol 6.25 MG Tablet PO ×2 (07:49→17:10)
[2024-01-17] MEDS: Carbidopa/Levodopa 25/100 Tablet PO ×3 (07:50→16:17)
[2024-01-17] MEDS: Menthol/Lanolin/Calamine/Znox 113 GM Tube 1 APPLIC TOPICAL ×2 (07:50→21:05)
[2024-01-17] MEDS: Nystatin Powder 15gm Bottle 1 APPLIC TOPICAL ×2 (07:52→21:04)
[2024-01-17] MEDS: Sodium Chloride 0.65% 1 SPRAY SPRAY.BTL NASAL ×2 (07:53→21:00)
[2024-01-17] MEDS: Pantoprazole Sodium 40 MG Tablet PO (07:53)
[2024-01-17] MEDS: Amantadine 100 MG Capsule PO (07:54)
[2024-01-17] MEDS: Senna/Docusate Sodium 1 Tablet 2 TABLET PO ×2 (07:54→21:00)
[2024-01-17] MEDS: CARBOXYMETHYLCELLULOSE SODIUM 1 DRP DROPS OPHTHALMIC (07:54)
[2024-01-17 09:24] VITALS: BP 105/57; PULSE 67
--- NOTE | 2024-01-17 09:57 | CASEMGMT ---
Social Work This worker met with patient on 01/16/24 and presented Notice of Medicare Non Coverage with LCD being 01/22/24 and explained appeal rights. Pt. signed form. Copy given to patient. JOAN Baeza
[2024-01-17 12:35] VITALS: BP 109/67; PULSE 60; RESP 16; TEMP 36.3; O2SAT 99
--- NOTE | 2024-01-17 15:00 | WOUNDNOTE ---
Colostomy appliance changed. stoma remains pink and moist. peristomal skin intact. pt tolerated ostomy change well. pt states plan is to be discharged to [facility] next .
[2024-01-17] MEDS: Tamsulosin HCl 0.4 MG Capsule PO (17:10)
[2024-01-17] MEDS: CARBIDOPA/LEVODOPA CR 50/200 Tablet PO (21:00)
[2024-01-17] MEDS: Fluticasone 0.05% 1 SPRAY NASAL.SRY NASAL (21:01)
[2024-01-18] MEDS: Menthol/Lanolin/Calamine/Znox 113 GM Tube 1 APPLIC TOPICAL ×2 (08:26→21:32)
[2024-01-18] MEDS: Nystatin Powder 15gm Bottle 1 APPLIC TOPICAL ×2 (08:26→21:31)
[2024-01-18] MEDS: Sodium Chloride 0.65% 1 SPRAY SPRAY.BTL NASAL ×2 (08:27→21:25)
[2024-01-18] MEDS: Senna/Docusate Sodium 1 Tablet 2 TABLET PO ×2 (08:28→21:26)
[2024-01-18] MEDS: Pantoprazole Sodium 40 MG Tablet PO (08:28)
[2024-01-18] MEDS: Carbidopa/Levodopa 25/100 Tablet PO ×3 (08:28→16:26)
[2024-01-18] MEDS: Carvedilol 6.25 MG Tablet PO ×2 (08:28→16:27)
[2024-01-18] MEDS: Amantadine 100 MG Capsule PO (08:29)
[2024-01-18 09:44] VITALS: RESP 17; O2SAT 96
[2024-01-18] MEDS: Ensure Plus High Protein 120 ML LIQUID PO ×3 (11:12→21:25)
[2024-01-18 16:00] VITALS: BP 113/66; PULSE 72; RESP 18; TEMP 36.7; O2SAT 95
[2024-01-18] MEDS: Tamsulosin HCl 0.4 MG Capsule PO (16:27)
[2024-01-18] MEDS: Fluticasone 0.05% 1 SPRAY NASAL.SRY NASAL (21:25)
[2024-01-18] MEDS: CARBIDOPA/LEVODOPA CR 50/200 Tablet PO (21:31)
[2024-01-19] MEDS: Sodium Chloride 0.65% 1 SPRAY SPRAY.BTL NASAL ×2 (08:06→21:09)
[2024-01-19] MEDS: Nystatin Powder 15gm Bottle 1 APPLIC TOPICAL ×2 (08:06→21:10)
[2024-01-19] MEDS: Carvedilol 6.25 MG Tablet PO ×2 (08:06→16:35)
[2024-01-19] MEDS: Menthol/Lanolin/Calamine/Znox 113 GM Tube 1 APPLIC TOPICAL ×2 (08:06→21:07)
[2024-01-19] MEDS: Carbidopa/Levodopa 25/100 Tablet PO ×3 (08:06→16:35)
[2024-01-19] MEDS: Pantoprazole Sodium 40 MG Tablet PO (08:07)
[2024-01-19] MEDS: Senna/Docusate Sodium 1 Tablet 2 TABLET PO ×2 (08:07→21:10)
[2024-01-19] MEDS: Amantadine 100 MG Capsule PO (08:07)
[2024-01-19] MEDS: Ensure Plus High Protein 120 ML LIQUID PO ×3 (11:13→21:09)
[2024-01-19 16:00] VITALS: BP 113/69; PULSE 68; RESP 18; TEMP 37; O2SAT 96
[2024-01-19] MEDS: Tamsulosin HCl 0.4 MG Capsule PO (16:35)
[2024-01-19 19:48] VITALS: RESP 16
[2024-01-19] MEDS: Fluticasone 0.05% 1 SPRAY NASAL.SRY NASAL (21:09)
[2024-01-19] MEDS: CARBIDOPA/LEVODOPA CR 50/200 Tablet PO (21:11)
[2024-01-20] MEDS: Hydrocortisone 2.5% Crm 1 APPLIC TOPICAL (08:16)
[2024-01-20] MEDS: Menthol/Lanolin/Calamine/Znox 113 GM Tube 1 APPLIC TOPICAL ×2 (08:18→21:42)
[2024-01-20] MEDS: Nystatin Powder 15gm Bottle 1 APPLIC TOPICAL ×2 (08:18→21:43)
[2024-01-20] MEDS: Sodium Chloride 0.65% 1 SPRAY SPRAY.BTL NASAL ×2 (08:19→21:43)
[2024-01-20] MEDS: Carvedilol 6.25 MG Tablet PO ×2 (08:20→17:12)
[2024-01-20] MEDS: Senna/Docusate Sodium 1 Tablet 2 TABLET PO ×2 (08:21→21:44)
[2024-01-20] MEDS: Carbidopa/Levodopa 25/100 Tablet PO ×3 (08:21→16:28)
[2024-01-20] MEDS: Amantadine 100 MG Capsule PO (08:21)
[2024-01-20] MEDS: Pantoprazole Sodium 40 MG Tablet PO (08:21)
[2024-01-20 08:26] VITALS: BP 104/62; PULSE 67
[2024-01-20 10:35] VITALS: PULSE 69; RESP 16; O2SAT 98
--- NOTE | 2024-01-20 10:53 | CASEMGMT ---
Addendum entered by Morena Coon 01/20/24 11:31: Patient's daughter inquired about Medicare Appeal process. SW notified patient's daughter of patient's Medicare appeal rights and provided [employer] appeal information via email. Original Note: Social Work SW received an email from the patient's daughter informing CM that the patient. Patient and daughters requested SNF provider- [facility], [facility], [facility] and [facility]. Patient first choice [facility]. CM submitted referral to penitentiary facilities. SNF placement review and determination for placement. DUGLAS provided updates to patient family. LAURA Kimball
[2024-01-20] MEDS: Ensure Plus High Protein 120 ML LIQUID PO ×3 (11:50→21:41)
[2024-01-20 13:01] VITALS: BP 100/61; PULSE 64; RESP 18; TEMP 36.6; O2SAT 97
--- NOTE | 2024-01-20 16:19 | CASEMGMT ---
Social Work SW discussed transition of care plans with patient and daughterJeane via phone to determine choice based on accepting facilities. SW notified patient has been accepted by [facility], [facility], and [facility]. The patient informed SW that he would like to go to either [facility] or [facility]. Patient's daughter would like to visit facilities prior to placement to providing final choice for placement. SW reviewed discharge date for 01/23/2024. Patient is aware of his Medicare Rights to appeal, if necessary. Patient is agreeable to placement. Patient and daughter to provide final choice for SNF placement. LAURA Kimball
[2024-01-20] MEDS: Tamsulosin HCl 0.4 MG Capsule PO (17:11)
[2024-01-20] MEDS: Fluticasone 0.05% 1 SPRAY NASAL.SRY NASAL (21:43)
[2024-01-20] MEDS: CARBIDOPA/LEVODOPA CR 50/200 Tablet PO (21:44)
[2024-01-21] MEDS: Ensure Plus High Protein 120 ML LIQUID PO ×4 (05:25→21:20)
[2024-01-21] MEDS: Carbidopa/Levodopa 25/100 Tablet PO ×3 (08:25→16:31)
[2024-01-21] MEDS: Menthol/Lanolin/Calamine/Znox 113 GM Tube 1 APPLIC TOPICAL ×2 (08:25→21:12)
[2024-01-21] MEDS: Carvedilol 6.25 MG Tablet PO ×2 (08:25→16:32)
[2024-01-21] MEDS: Sodium Chloride 0.65% 1 SPRAY SPRAY.BTL NASAL ×2 (08:25→21:15)
[2024-01-21] MEDS: Nystatin Powder 15gm Bottle 1 APPLIC TOPICAL ×2 (08:25→21:25)
[2024-01-21] MEDS: Senna/Docusate Sodium 1 Tablet 2 TABLET PO ×2 (08:26→21:15)
[2024-01-21] MEDS: Pantoprazole Sodium 40 MG Tablet PO (08:26)
[2024-01-21] MEDS: Amantadine 100 MG Capsule PO (08:26)
[2024-01-21 09:00] VITALS: BMI 20.9
[2024-01-21 13:26] VITALS: BP 106/58; PULSE 68; RESP 18; TEMP 36.7; O2SAT 98
--- NOTE | 2024-01-21 13:58 | WOUNDNOTE ---
wound/stoma photo: abdomen
--- NOTE | 2024-01-21 14:26 | WOUNDNOTE ---
Colostomy appliance changed. patient with small amount of formed brown stool in appliance. removed appliance. stoma remains pink and moist. peristomal skin is intact. cleansed skin with warm water. pat dry. applied a new 2 piece flat [place] appliance with a small amount of stoma paste. pt tolerated well. patient is to be discharged to half-way on 01/23/24. pt will be sent with appliances until half-way can get supplies ordered for patient.
[2024-01-21] MEDS: Tamsulosin HCl 0.4 MG Capsule PO (16:32)
--- NOTE | 2024-01-21 16:39 | CASEMGMT ---
Social Work SW received notification from [facility] liaisonAlvina that patient will need to admit under LTC, if NOMNC was given to patient. NOMNC was signed by patient on 01/15. Alvina informed SW that the patient could admit to TCC unit due to no LTC bed, if the family is agreeable to placement and private pay fee. Patient and family were notified by SW that patient will require intermediate care upon transition to usp. The patient was notified about private pay. Patient requested to speak with SW at bedside. Patient's family expressed concerns regarding discharge plans. Patient's daughters informed SW that she is concerned about the transition to LTC. SW met with patient per request. SW offered to contact via phone patient's daughters; patient declined. Patient inquired about barriers for jail placement. SW informed patient of Medicare cut date and limited coverage. Patient informed SW that he does not qualify for Medicaid due to monthly income and estate. SW informed patient of Medicaid spend-down process. Patient is aware of limited capacity to care for self due to Parkinson's and limited dexterity to complete colostomy care. SW discussed prison care and home health care with personal care services. Patient informed SW that he would like to appeal discharge at this time. Patient was provided Medicare Appeal Rights information. SW received a call from patient's daughter who informed SW that the patient has initiated [employer] appeal process. [employer] appeal #[id number]. Patient's daughter inquired about further details regarding appeal process and timeline for review. SW educated patient's daughter of Medicare appeal review process. 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 Patient's daughter informed DUGLAS that she has an appointment with both [facility] [place] and [facility] to discuss potential placement. SW to follow up with patient and daughter regarding status of appeal and placement. [employer] Medicare Appeal [id number] has been initiated on 01/21/24 by patient. DUGLAS Case Management Leadership and TCU Leadership has been notified of appeal. LAURA Kimball
--- NOTE | 2024-01-21 16:44 | CASEMGMT ---
Social Work This worker and LAURA Polanco met with patient to discuss discharge plans. Pt had many questions about what Medicare covers and doesn't cover. Both SW's explained that Medicare only covers skilled days in nursing homes for up to 100 days based on progress. SW's explained decision was made based on progress and reminded him that he does/did have right to appeal (which was explained day of NOMNC letter given). SW's explained he can discharge to [facility] but would have to go initially as private pay. The facility will evaluate him for therapy and if the facility identifies a skilled need the facility could choose to pick him back up for skilled care using days he has left and Medicare would cover those skilled days but when that was done he would be private pay again. SW's also discussed basic medicaid requirements and patient stated he feels he would not be eligible for that. He stated i'm in between being able to afford NH care vs medicaid eligibility. Pt stated he thinks he might appeal the Medicare decision. This worker provided patient with another copy of the NOMNC and educated him on appeal process. Patient to initiate appeal through Sandra. Orinaa FRANCO
[2024-01-21] MEDS: CARBIDOPA/LEVODOPA CR 50/200 Tablet PO (21:16)
[2024-01-21 23:39] VITALS: PULSE 63; RESP 16; O2SAT 96
[2024-01-22] MEDS: Ensure Plus High Protein 120 ML LIQUID PO ×4 (05:38→21:54)
[2024-01-22 05:49] VITALS: PULSE 61; RESP 16; O2SAT 93
[2024-01-22 05:55] LABS: Absolute Lymphocyte Count 1.33 X10^3/uL (0.83-4.51); Absolute Neutrophil Count 4.3 X10^3/uL (2.0-7.7); Basophil# 0.05 X10^3/uL; Basophil% 0.8 % (0-1); Eosinophils% 1.6 % (0-5); Hematocrit 33.5 % (40-54); Hemoglobin 10.8 g/dL (13.0-16.5); Lymphocyte # 1.33 X10^3/ul (0.83-4.51); Lymphocyte % 20.9 % (19-41); Mean Corp Hgb Conc 32.2 g/dL (32-36); Mean Corpuscular Hgb 30.5 pg (27.0-32.0); Mean Corpuscular Volume 94.6 fL (80-94); Mean Platelet Vol. 10.3 fl (6.2-12.0); Monocyte% 7.8 % (0-10); NRBC Flagged by Analyzer 0 % (0-5); Neutrophil # 4.34 X10^3/uL (2.7-7.7); Neutrophil % 68.1 % (47-70); Platelet Count 259 K/mm3 (150-450); RBC Distribution Width CV 14.6 % (11.6-14.6); RBC Distribution Width SD 50.4 fl (35.1-43.9); Red Blood Count 3.54 M/mm3 (4.6-6.2); White Blood Count 6.4 K/mm3 (4.4-11.0)
[2024-01-22 06:27] LABS: Anion Gap 6 (5-15); BUN 19 mg/dL (7-18); BUN/Creat Ratio 20.8 RATIO (10-20); Calcium,Total 8.5 mg/dL (8.5-10.1); Chloride 102 mmol/L (98-107); Creatinine, Serum 0.92 mg/dL (0.70-1.30); EST Glomerular Filtration Rate 85 mL/min (>60); Est Glom Filt Rate - Afr Amer 103 mL/min (>60); Estimated Creatinine Clearance 63.16 ml/min; Glucose 101 mg/dL (74-106); Potassium 4.1 mmol/L (3.5-5.1); Sodium Level 138 mmol/L (136-145)
[2024-01-22] MEDS: Carvedilol 6.25 MG Tablet PO ×2 (07:53→17:02)
[2024-01-22] MEDS: Nystatin Powder 15gm Bottle 1 APPLIC TOPICAL ×2 (07:54→21:58)
[2024-01-22] MEDS: Menthol/Lanolin/Calamine/Znox 113 GM Tube 1 APPLIC TOPICAL ×2 (07:54→21:58)
[2024-01-22] MEDS: Senna/Docusate Sodium 1 Tablet 2 TABLET PO ×2 (07:55→21:54)
[2024-01-22] MEDS: Sodium Chloride 0.65% 1 SPRAY SPRAY.BTL NASAL ×2 (07:55→21:54)
[2024-01-22] MEDS: Pantoprazole Sodium 40 MG Tablet PO (07:55)
[2024-01-22] MEDS: Carbidopa/Levodopa 25/100 Tablet PO ×3 (07:56→16:21)
[2024-01-22] MEDS: Amantadine 100 MG Capsule PO (07:56)
[2024-01-22 08:01] VITALS: BP 121/68; PULSE 70
--- NOTE | 2024-01-22 11:42 | CASEMGMT ---
Social Work SW met with patient at bedside to review current status of [employer] appeal. [employer] appeal is currently reviewing clinical documents. SW provided updates to daughters via confidential PHI email regarding [employer] status. Patient's daughter Jeane has an appointment to visit both [facility] and [facility]. SW to follow to assist with transition of care planning LAURA Kimball
[2024-01-22] MEDS: Tamsulosin HCl 0.4 MG Capsule PO (17:02)
[2024-01-22 17:04] VITALS: BP 137/71; PULSE 68; RESP 18; TEMP 36.1; O2SAT 97
[2024-01-22] MEDS: CARBIDOPA/LEVODOPA CR 50/200 Tablet PO (21:54)
[2024-01-22] MEDS: Hydrocortisone 2.5% Crm 1 APPLIC TOPICAL (21:56)
[2024-01-23] MEDS: Ensure Plus High Protein 120 ML LIQUID PO ×4 (05:37→22:11)
[2024-01-23 06:34] VITALS: PULSE 62; RESP 14; O2SAT 95
[2024-01-23] MEDS: Carbidopa/Levodopa 25/100 Tablet PO ×3 (08:24→16:26)
[2024-01-23] MEDS: Carvedilol 6.25 MG Tablet PO ×2 (08:25→17:45)
[2024-01-23] MEDS: Nystatin Powder 15gm Bottle 1 APPLIC TOPICAL ×2 (08:26→22:12)
[2024-01-23] MEDS: Menthol/Lanolin/Calamine/Znox 113 GM Tube 1 APPLIC TOPICAL ×2 (08:26→22:11)
[2024-01-23] MEDS: Sodium Chloride 0.65% 1 SPRAY SPRAY.BTL NASAL ×2 (08:26→22:08)
[2024-01-23] MEDS: Pantoprazole Sodium 40 MG Tablet PO (08:27)
[2024-01-23] MEDS: Amantadine 100 MG Capsule PO (08:27)
[2024-01-23] MEDS: Senna/Docusate Sodium 1 Tablet 2 TABLET PO ×2 (08:27→22:13)
[2024-01-23 08:31] VITALS: BP 110/69; PULSE 74
--- NOTE | 2024-01-23 10:21 | CASEMGMT ---
Social Work SW met with patient and completed MDS interviews. BIMS PHQ2 0/2 JOAN Baeza
--- NOTE | 2024-01-23 10:27 | CASEMGMT ---
Social Work SW met with patient at bedside to discuss discharge plans and provide updates regarding Medicare appeal status with [employer]. The patient informed SW that his daughter visited both facility [facility] and [facility]. The patient has preference for placement at [facility]. The SW reviewed [employer] appeal status on [employer] Q[employer] website. [employer] status has completed clinical review and has determined financial liability; outcome notification pending. Patient and [facility] will be notified of [employer] appeal determination by phone/ fax. Patient provided verbal understanding of [employer] appeal process. Patient will follow up with SW and family regarding placement. LAURA Kimball
--- NOTE | 2024-01-23 11:25 | CASEMGMT ---
Social Work SW received a fax from [employer] notifying [facility] T[facility] of determination of [employer] Appeal ID#[id number]; The physician reviewer disagrees with termination of services. Medicare Liability starts on 12/24/23. SW notified patient. Patient requested that SW notify his daughter. SW notified patient's daughter, Jeane via phone. Patient and family will discuss continuation of care plans. SW will continue to follow to assist with discharge plans. LAURA Kimball
[2024-01-23 14:43] VITALS: BP 107/64; PULSE 80; RESP 18; TEMP 35.9; O2SAT 96
[2024-01-23] MEDS: Tamsulosin HCl 0.4 MG Capsule PO (17:46)
[2024-01-23] MEDS: CARBIDOPA/LEVODOPA CR 50/200 Tablet PO (22:13)
[2024-01-24] MEDS: Ensure Plus High Protein 120 ML LIQUID PO ×4 (05:11→21:42)
[2024-01-24] MEDS: Carbidopa/Levodopa 25/100 Tablet PO ×3 (08:06→16:34)
[2024-01-24] MEDS: Carvedilol 6.25 MG Tablet PO ×2 (08:06→16:34)
[2024-01-24] MEDS: Nystatin Powder 15gm Bottle 1 APPLIC TOPICAL ×2 (08:06→21:46)
[2024-01-24] MEDS: Sodium Chloride 0.65% 1 SPRAY SPRAY.BTL NASAL ×2 (08:06→21:47)
[2024-01-24] MEDS: Menthol/Lanolin/Calamine/Znox 113 GM Tube 1 APPLIC TOPICAL ×2 (08:06→21:46)
[2024-01-24] MEDS: Amantadine 100 MG Capsule PO (08:07)
[2024-01-24] MEDS: Senna/Docusate Sodium 1 Tablet 2 TABLET PO ×2 (08:07→21:43)
[2024-01-24] MEDS: Pantoprazole Sodium 40 MG Tablet PO (08:07)
[2024-01-24] MEDS: Hydrocortisone 2.5% Crm 1 APPLIC TOPICAL (13:38)
--- NOTE | 2024-01-24 14:16 | WOUNDNOTE ---
removed the colostomy appliance. there was a small amount of formed brown stool in the appliance. cleansed the peristoma skin with warm water. pat dry. stoma remains pink and sits just above the skin level. applied a new 2 piece flat [place] appliance with a small amount of stoma paste. pt tolerated well.
--- NOTE | 2024-01-24 15:20 | CASEMGMT ---
Social Work This worker left patient's daughter a voicemail asking if the family made decision if they would like patient to remain on TCU or to tranfer to [facility] for remainder of skilled coverage. Oriana FRANCO
[2024-01-24 16:00] VITALS: BP 132/73; PULSE 70; RESP 16; TEMP 36.4; O2SAT 98
[2024-01-24] MEDS: Tamsulosin HCl 0.4 MG Capsule PO (16:34)
[2024-01-24] MEDS: CARBIDOPA/LEVODOPA CR 50/200 Tablet PO (21:45)
[2024-01-25] MEDS: Ensure Plus High Protein 120 ML LIQUID PO ×4 (06:29→21:33)
[2024-01-25] MEDS: Carvedilol 6.25 MG Tablet PO ×2 (08:26→16:56)
[2024-01-25] MEDS: Carbidopa/Levodopa 25/100 Tablet PO ×3 (08:26→16:56)
[2024-01-25] MEDS: Senna/Docusate Sodium 1 Tablet 2 TABLET PO ×2 (08:26→21:33)
[2024-01-25] MEDS: Amantadine 100 MG Capsule PO (08:26)
[2024-01-25] MEDS: Menthol/Lanolin/Calamine/Znox 113 GM Tube 1 APPLIC TOPICAL ×2 (08:27→21:43)
[2024-01-25] MEDS: Pantoprazole Sodium 40 MG Tablet PO (08:27)
[2024-01-25] MEDS: Sodium Chloride 0.65% 1 SPRAY SPRAY.BTL NASAL ×2 (08:27→21:33)
[2024-01-25] MEDS: Nystatin Powder 15gm Bottle 1 APPLIC TOPICAL ×2 (08:27→21:43)
[2024-01-25 15:04] VITALS: BP 108/62; PULSE 67; RESP 14; TEMP 36.5; O2SAT 97
[2024-01-25] MEDS: Tamsulosin HCl 0.4 MG Capsule PO (16:56)
[2024-01-25 21:30] VITALS: PULSE 82; RESP 16; O2SAT 99
[2024-01-25] MEDS: CARBIDOPA/LEVODOPA CR 50/200 Tablet PO (21:33)
[2024-01-26] MEDS: Ensure Plus High Protein 120 ML LIQUID PO ×4 (06:12→22:25)
[2024-01-26] MEDS: Carbidopa/Levodopa 25/100 Tablet PO ×3 (08:51→17:06)
[2024-01-26] MEDS: Menthol/Lanolin/Calamine/Znox 113 GM Tube 1 APPLIC TOPICAL ×2 (08:52→22:28)
[2024-01-26] MEDS: Senna/Docusate Sodium 1 Tablet 2 TABLET PO ×2 (08:52→22:25)
[2024-01-26] MEDS: Pantoprazole Sodium 40 MG Tablet PO (08:52)
[2024-01-26] MEDS: Amantadine 100 MG Capsule PO (08:52)
[2024-01-26] MEDS: Nystatin Powder 15gm Bottle 1 APPLIC TOPICAL ×2 (08:52→22:28)
[2024-01-26] MEDS: Carvedilol 6.25 MG Tablet PO ×2 (08:53→17:06)
[2024-01-26] MEDS: Sodium Chloride 0.65% 1 SPRAY SPRAY.BTL NASAL ×2 (08:54→22:25)
[2024-01-26 16:00] VITALS: BP 128/74; PULSE 72; RESP 12; TEMP 36.8; O2SAT 99
[2024-01-26] MEDS: Tamsulosin HCl 0.4 MG Capsule PO (17:06)
[2024-01-26] MEDS: CARBIDOPA/LEVODOPA CR 50/200 Tablet PO (22:25)
[2024-01-27] MEDS: Ensure Plus High Protein 120 ML LIQUID PO ×4 (06:36→20:04)
[2024-01-27] MEDS: Carbidopa/Levodopa 25/100 Tablet PO ×3 (08:19→16:46)
[2024-01-27] MEDS: Sodium Chloride 0.65% 1 SPRAY SPRAY.BTL NASAL ×2 (08:19→20:06)
[2024-01-27] MEDS: Pantoprazole Sodium 40 MG Tablet PO (08:20)
[2024-01-27] MEDS: Carvedilol 6.25 MG Tablet PO ×2 (08:20→16:46)
[2024-01-27] MEDS: Senna/Docusate Sodium 1 Tablet 2 TABLET PO ×2 (08:20→20:04)
[2024-01-27] MEDS: Amantadine 100 MG Capsule PO (08:20)
[2024-01-27] MEDS: Menthol/Lanolin/Calamine/Znox 113 GM Tube 1 APPLIC TOPICAL ×2 (08:21→20:05)
[2024-01-27] MEDS: Nystatin Powder 15gm Bottle 1 APPLIC TOPICAL ×2 (08:22→20:05)
--- NOTE | 2024-01-27 08:48 | CASEMGMT ---
Social Work SW received an e-mail from patient's daughter informing SW that the patient has decided to remain on TCU for rehabilitation. Family no longer want to pursue transition to [facility] at this time. SW to follow to assist in care plans. LAURA Kimball
--- NOTE | 2024-01-27 11:01 | CASEMGMT ---
Social Work SW met with patient at bedside to discuss transition of care plans. Patient informed SW that he would like to remain on TCU while he can. Patient informed SW that pending progress his goal is to return home with home health care services. 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 Home Health Care list was provided to patient at bedside per patient request. LAURA Kimball
[2024-01-27 16:00] VITALS: BP 142/78; PULSE 72; RESP 14; TEMP 36.1; O2SAT 94
[2024-01-27] MEDS: Tamsulosin HCl 0.4 MG Capsule PO (16:46)
--- NOTE | 2024-01-27 16:53 | CASEMGMT ---
Social Work SW met with patient and daughter, Jeane in therapy room. SW discussed patient goal to return home with home health care when stable. SW informed Jeane that patient was provided home health care list at bedside. SW discussed concerns for patient ability to manage ostomy care. Patient's daughter informed SW that she received teaching, but would like additional teaching to assist patient as she shares concerns for patient ability to do ostomy care. Patient's daughter inquired about additional home health services to assist with ostomy care. SW discussed private duty care. Patient's daughter was provided private duty care list. SW informed Patient and daughter that [facility]pc care plans are required post acute stay. Patient goal is to return home with home health care. LAURA Kimball
[2024-01-27] MEDS: CARBIDOPA/LEVODOPA CR 50/200 Tablet PO (20:04)
[2024-01-28] MEDS: Ensure Plus High Protein 120 ML LIQUID PO ×4 (05:14→20:06)
[2024-01-28 05:55] LABS: Absolute Lymphocyte Count 1.32 X10^3/uL (0.83-4.51); Absolute Neutrophil Count 3.3 X10^3/uL (2.0-7.7); Basophil# 0.03 X10^3/uL; Basophil% 0.6 % (0-1); Eosinophil# 0.15 X10^3/uL; Eosinophils% 2.8 % (0-5); Hematocrit 33.8 % (40-54); Lymphocyte # 1.32 X10^3/ul (0.83-4.51); Lymphocyte % 24.9 % (19-41); Mean Corp Hgb Conc 32.5 g/dL (32-36); Mean Corpuscular Hgb 31.5 pg (27.0-32.0); Mean Corpuscular Volume 96.8 fL (80-94); Mean Platelet Vol. 10.7 fl (6.2-12.0); Monocyte# 0.49 X10^3/uL; Monocyte% 9.2 % (0-10); NRBC Flagged by Analyzer 0 % (0-5); Neutrophil # 3.28 X10^3/uL (2.7-7.7); Neutrophil % 61.9 % (47-70); Platelet Count 218 K/mm3 (150-450); RBC Distribution Width CV 15.1 % (11.6-14.6); RBC Distribution Width SD 53.5 fl (35.1-43.9); Red Blood Count 3.49 M/mm3 (4.6-6.2); White Blood Count 5.3 K/mm3 (4.4-11.0)
[2024-01-28] MEDS: Carvedilol 6.25 MG Tablet PO ×2 (07:52→16:30)
[2024-01-28] MEDS: Menthol/Lanolin/Calamine/Znox 113 GM Tube 1 APPLIC TOPICAL ×2 (07:52→20:03)
[2024-01-28] MEDS: Carbidopa/Levodopa 25/100 Tablet PO ×3 (07:52→16:30)
[2024-01-28] MEDS: Senna/Docusate Sodium 1 Tablet 2 TABLET PO ×2 (07:53→20:07)
[2024-01-28] MEDS: Amantadine 100 MG Capsule PO (07:53)
[2024-01-28] MEDS: Pantoprazole Sodium 40 MG Tablet PO (07:53)
[2024-01-28] MEDS: Nystatin Powder 15gm Bottle 1 APPLIC TOPICAL ×2 (07:53→20:04)
[2024-01-28] MEDS: Sodium Chloride 0.65% 1 SPRAY SPRAY.BTL NASAL ×2 (07:53→20:07)
[2024-01-28 09:00] VITALS: BMI 21.3
[2024-01-28 11:22] LABS: Anion Gap 9 (5-15); BUN 23 mg/dL (7-18); BUN/Creat Ratio 26.5 RATIO (10-20); Calcium,Total 8.4 mg/dL (8.5-10.1); Chloride 104 mmol/L (98-107); Creatinine, Serum 0.87 mg/dL (0.70-1.30); EST Glomerular Filtration Rate 91 mL/min (>60); Est Glom Filt Rate - Afr Amer 110 mL/min (>60); Estimated Creatinine Clearance 66.79 ml/min; Glucose 96 mg/dL (74-106); Potassium 3.9 mmol/L (3.5-5.1); Sodium Level 139 mmol/L (136-145)
--- NOTE | 2024-01-28 14:21 | WOUNDNOTE ---
Colostomy appliance changed. pt tolerated well. stoma pink and moist. peristomal skin intact.
[2024-01-28 16:00] VITALS: BP 116/70; PULSE 75; RESP 14; TEMP 36.6; O2SAT 97
[2024-01-28] MEDS: Tamsulosin HCl 0.4 MG Capsule PO (16:29)
--- NOTE | 2024-01-28 18:54 | PN.TCU_ITS ---
Subjective Subjective Resident seen, examined for regulatory visit. Initial plan for discharge to SNF 01/23/2024 was cancelled, resident goal to go home. He is doing well, he has no new problems, concerns, issues, complaints. He is progressing with therapy. Objective Data Objective Data Vital Signs: Vital Signs Temp Pulse Resp BP Pulse Ox O2 Del Method 97.8 F 75 14 116/70 97 Room Air 01/28/24 16:00 01/28/24 16:00 01/28/24 16:00 01/28/24 16:00 01/28/24 16:00 01/28/24 16:00 Oxygen Delivery Method Room Air Weight: 67.585 kg Body Mass Index (BMI) 21.3 Intake & Output: Intake and Output for Last 24 Hours 01/26/24 01/27/24 01/28/24 23:59 23:59 23:59 Intake Total 980 / 980 960 / 960 1160 / 1160 Output Total 400 / 400 Balance 980 / 980 960 / 960 760 / 760 Lab / Micro Data Attestation: I reviewed the patient's lab results. 01/28/24 05:19 01/28/24 05:19 Labs: Laboratory Results - last 24 hr 01/28/24 05:19: WBC 5.3, RBC 3.49 L, Hgb 11.0 L, Hct 33.8 L, MCV 96.8 H, MCH 31.5, MCHC 32.5, RDW Std Deviation 53.5 H, RDW Coeff of Ann 15.1 H, Plt Count 218, MPV 10.7, Immature Gran % (Auto) 0.600, Neut % (Auto) 61.9, Lymph % (Auto) 24.9, [place] % (Auto) 9.2, Eos % (Auto) 2.8, Baso % (Auto) 0.6, Absolute Neuts (auto) 3.3, Absolute Lymphs (auto) 1.32, Nucleated RBC % 0, Sodium 139, Potassium 3.9, Chloride 104, Carbon Dioxide 26.0, Anion Gap 9, BUN 23 H, Creatinine 0.87, Estim Creat Clear Calc 66.79, Est GFR (MDRD) Af Amer 110, Est GFR (MDRD) Non-Af 91, BUN/Creatinine Ratio 26.5 H, Glucose 96, Calcium 8.4 L Physical Exam Const alert General Appearance: cooperative HEENT normocephalic Eyes PERRL and EOMs intact bilaterally Neck supple, no JVD and no carotid bruits Resp normal respiratory effort, normal air movement and clear to auscultation bilaterally Cardio regular rate and regular rhythm GI normal to inspection, nondistended, normoactive bowel sounds, non-tender and non-distended GI Narrative: Midline wound clean. Colostomy LLQ. Bladder / Kidney Exam: catheter in place urethral Extremity normal capillary refill General Extremity: Negative for edema Skin no rashes or lesions noted General Skin Exam: no breakdown Psych affect normal Appearance: appropriate Assessment & Plan Assessment/Plan (1) Postoperative seroma: QUALIFIERS: Surgical complication system/body Area: skin Procedure type: non-dermatologic Qualified Code(s): L76.34 - Postprocedural seroma of skin and subcutaneous tissue following other procedure PLAN: Plan 78 year old male with Parkinson Disease, hospitalized for bowel obstruction/sigmoid volvulus, underwent partial colectomy/colostomy 12/15/2023, complicated by fever, urinary retention, hematuria, MANPREET, admitted to TCU with debility, here for rehabilitation, strengthening, prior to discharge home alone. * Debility - PT/OT. * Dysphagia - ST. * Pain - Tylenol 1000mg q6 prn pain (1-10). * Bowel - senna/colace 2 tablets bid. * Adult immunization - Administer pneumonia vaccine, covid vaccine, flu vaccine as appropriate. * DVT prophylaxis - Hold, hematuria. * Parkinson Disease - Sinemet 25/100mg 2 tablets tid, Sinemet 50/200mg 1 tablet qhs, Amantadine 100mg daily. * Dry eyes - Artificial tears 1gtt ou q6 prn. * Rash - HC cream topical tid prn. * Insomnia - Melatonin 5mg qhs prn. * Skin irritation - Calmoseptine topical bid. * Tinea Corporis - Nystatin powder topical bid. * Hypertension - Coreg 6.25mg bidcm. * Nutrition - Ensure 120ml 4x/day. * GERD - Pantoprazole 40mg twice daily. * Dry nares - [place] 1 spray nasal bid prn.
[2024-01-28] MEDS: CARBIDOPA/LEVODOPA CR 50/200 Tablet PO (20:08)
[2024-01-28 20:45] VITALS: PULSE 75; RESP 16; O2SAT 97
--- NOTE | 2024-01-29 01:52 | NURSING ---
Pt. colostomy appliance changed PRN due to compromised flange seal.
[2024-01-29] MEDS: Ensure Plus High Protein 120 ML LIQUID PO ×4 (05:07→21:37)
[2024-01-29 05:08] VITALS: PULSE 66; RESP 16; O2SAT 93
[2024-01-29] MEDS: Carbidopa/Levodopa 25/100 Tablet PO ×3 (07:51→16:08)
[2024-01-29] MEDS: Carvedilol 6.25 MG Tablet PO ×2 (07:51→17:06)
[2024-01-29] MEDS: Nystatin Powder 15gm Bottle 1 APPLIC TOPICAL ×2 (07:52→21:39)
[2024-01-29] MEDS: Sodium Chloride 0.65% 1 SPRAY SPRAY.BTL NASAL ×2 (07:52→21:37)
[2024-01-29] MEDS: Menthol/Lanolin/Calamine/Znox 113 GM Tube 1 APPLIC TOPICAL ×2 (07:52→21:39)
[2024-01-29] MEDS: Pantoprazole Sodium 40 MG Tablet PO (07:53)
[2024-01-29] MEDS: Amantadine 100 MG Capsule PO (07:53)
[2024-01-29] MEDS: Senna/Docusate Sodium 1 Tablet 2 TABLET PO ×2 (07:53→21:37)
[2024-01-29 07:58] VITALS: BP 123/72; PULSE 68
--- NOTE | 2024-01-29 09:05 | WOUNDNOTE ---
wound/stoma photo: abdomen
[2024-01-29 16:00] VITALS: BP 107/61; PULSE 65; RESP 16; TEMP 36.6; O2SAT 97
[2024-01-29] MEDS: Tamsulosin HCl 0.4 MG Capsule PO (17:06)
[2024-01-29] MEDS: CARBIDOPA/LEVODOPA CR 50/200 Tablet PO (21:38)
[2024-01-30] MEDS: Carvedilol 6.25 MG Tablet PO ×2 (09:17→17:09)
[2024-01-30] MEDS: Carbidopa/Levodopa 25/100 Tablet PO ×3 (09:17→16:16)
[2024-01-30] MEDS: Sodium Chloride 0.65% 1 SPRAY SPRAY.BTL NASAL ×2 (09:18→21:23)
[2024-01-30] MEDS: Nystatin Powder 15gm Bottle 1 APPLIC TOPICAL ×2 (09:18→21:23)
[2024-01-30] MEDS: Menthol/Lanolin/Calamine/Znox 113 GM Tube 1 APPLIC TOPICAL ×2 (09:18→21:22)
[2024-01-30] MEDS: Amantadine 100 MG Capsule PO (09:19)
[2024-01-30] MEDS: Senna/Docusate Sodium 1 Tablet 2 TABLET PO ×2 (09:19→21:24)
[2024-01-30] MEDS: Pantoprazole Sodium 40 MG Tablet PO (09:19)
[2024-01-30 09:27] VITALS: BP 124/69; PULSE 68
--- NOTE | 2024-01-30 10:02 | NURSING ---
PT HAS RED RASH TO GROIN AND UPPER THIGH AREA POSSIBLE MOISTURE FROM ATTENDS. OK PER PT TO USE HIS UNDERWEAR IN PLACE OF ATTENDS DURING DAY AND USE ATTENDS AT NIGHT BUT KEEP LOOSE. WASH AREA GENTLE WITH SOAP AND WATER AND APPLY NYSTATIN POWDER. RN AWARE
[2024-01-30] MEDS: Ensure Plus High Protein 120 ML LIQUID PO ×3 (13:10→21:26)
[2024-01-30 14:42] VITALS: BP 110/60; PULSE 71; RESP 18; TEMP 36.3; O2SAT 97
[2024-01-30 15:00] VITALS: PULSE 73; RESP 18; O2SAT 96
[2024-01-30] MEDS: Tamsulosin HCl 0.4 MG Capsule PO (17:09)
[2024-01-30] MEDS: CARBIDOPA/LEVODOPA CR 50/200 Tablet PO (21:25)
[2024-01-31] MEDS: Ensure Plus High Protein 120 ML LIQUID PO ×4 (04:42→22:13)
[2024-01-31 04:46] VITALS: PULSE 59; RESP 16; O2SAT 96
[2024-01-31] MEDS: Carvedilol 6.25 MG Tablet PO ×2 (09:37→17:29)
[2024-01-31] MEDS: Senna/Docusate Sodium 1 Tablet 2 TABLET PO ×2 (09:37→22:13)
[2024-01-31] MEDS: Sodium Chloride 0.65% 1 SPRAY SPRAY.BTL NASAL ×2 (09:38→22:13)
[2024-01-31] MEDS: Carbidopa/Levodopa 25/100 Tablet PO ×3 (09:38→17:28)
[2024-01-31] MEDS: Amantadine 100 MG Capsule PO (09:38)
[2024-01-31] MEDS: Pantoprazole Sodium 40 MG Tablet PO (09:38)
[2024-01-31] MEDS: Menthol/Lanolin/Calamine/Znox 113 GM Tube 1 APPLIC TOPICAL ×2 (09:39→22:15)
[2024-01-31] MEDS: Nystatin Powder 15gm Bottle 1 APPLIC TOPICAL ×2 (09:39→22:15)
[2024-01-31 12:50] VITALS: BP 122/66; PULSE 63; RESP 16; TEMP 36.5; O2SAT 98
--- NOTE | 2024-01-31 14:27 | WOUNDNOTE ---
Colostomy appliance changed. stoma remains budded and pink. peristomal skin is intact. worked with patient on trying to roll up the bottom of the appliance. patient still does not have the fine motor skills to perform this task. disposable pouches would not really be an option either because patient would not be able to snap appliance off and on. will continue to work with patient.
[2024-01-31] MEDS: Tamsulosin HCl 0.4 MG Capsule PO (17:28)
[2024-01-31] MEDS: CARBIDOPA/LEVODOPA CR 50/200 Tablet PO (22:13)
[2024-02-01] MEDS: Ensure Plus High Protein 120 ML LIQUID PO ×4 (06:40→20:56)
[2024-02-01] MEDS: Carvedilol 6.25 MG Tablet PO ×2 (08:44→17:21)
[2024-02-01] MEDS: Sodium Chloride 0.65% 1 SPRAY SPRAY.BTL NASAL ×2 (08:44→20:59)
[2024-02-01] MEDS: Carbidopa/Levodopa 25/100 Tablet PO ×3 (08:46→16:48)
[2024-02-01] MEDS: Amantadine 100 MG Capsule PO (08:46)
[2024-02-01] MEDS: Senna/Docusate Sodium 1 Tablet 2 TABLET PO ×2 (08:46→20:59)
[2024-02-01] MEDS: Pantoprazole Sodium 40 MG Tablet PO (08:47)
[2024-02-01] MEDS: Nystatin Powder 15gm Bottle 1 APPLIC TOPICAL ×2 (08:49→20:57)
[2024-02-01] MEDS: Menthol/Lanolin/Calamine/Znox 113 GM Tube 1 APPLIC TOPICAL ×2 (08:50→20:57)
[2024-02-01 08:57] VITALS: BP 108/67; PULSE 65
[2024-02-01 16:00] VITALS: BP 126/77; PULSE 66; RESP 16; TEMP 36.9; O2SAT 98
[2024-02-01] MEDS: Tamsulosin HCl 0.4 MG Capsule PO (17:21)
[2024-02-01] MEDS: CARBIDOPA/LEVODOPA CR 50/200 Tablet PO (21:00)
[2024-02-01 21:50] VITALS: PULSE 64; RESP 18; O2SAT 98
[2024-02-02] MEDS: Menthol/Lanolin/Calamine/Znox 113 GM Tube 1 APPLIC TOPICAL ×3 (08:39→21:20)
[2024-02-02] MEDS: Nystatin Powder 15gm Bottle 1 APPLIC TOPICAL ×2 (08:40→21:21)
[2024-02-02] MEDS: Sodium Chloride 0.65% 1 SPRAY SPRAY.BTL NASAL ×2 (08:41→21:21)
[2024-02-02] MEDS: Pantoprazole Sodium 40 MG Tablet PO (08:42)
[2024-02-02] MEDS: Carbidopa/Levodopa 25/100 Tablet PO ×3 (08:42→16:45)
[2024-02-02] MEDS: Carvedilol 6.25 MG Tablet PO ×2 (08:42→17:27)
[2024-02-02] MEDS: Senna/Docusate Sodium 1 Tablet 2 TABLET PO ×2 (08:43→21:22)
[2024-02-02] MEDS: Amantadine 100 MG Capsule PO (08:43)
[2024-02-02 08:48] VITALS: BP 104/59; PULSE 62
[2024-02-02] MEDS: Ensure Plus High Protein 120 ML LIQUID PO ×3 (12:48→21:20)
[2024-02-02 13:30] VITALS: PULSE 64; RESP 18; O2SAT 96
[2024-02-02 14:13] VITALS: BP 100/57; PULSE 64; RESP 16; TEMP 36.4; O2SAT 95
[2024-02-02] MEDS: Tamsulosin HCl 0.4 MG Capsule PO (17:27)
[2024-02-02] MEDS: CARBIDOPA/LEVODOPA CR 50/200 Tablet PO (21:22)
[2024-02-03] MEDS: Senna/Docusate Sodium 1 Tablet 2 TABLET PO ×2 (08:23→21:36)
[2024-02-03] MEDS: Pantoprazole Sodium 40 MG Tablet PO (08:24)
[2024-02-03] MEDS: Carbidopa/Levodopa 25/100 Tablet PO ×3 (08:24→17:10)
[2024-02-03] MEDS: Carvedilol 6.25 MG Tablet PO ×2 (08:24→17:09)
[2024-02-03] MEDS: Sodium Chloride 0.65% 1 SPRAY SPRAY.BTL NASAL ×2 (08:25→21:36)
[2024-02-03] MEDS: Amantadine 100 MG Capsule PO (08:25)
[2024-02-03] MEDS: Menthol/Lanolin/Calamine/Znox 113 GM Tube 1 APPLIC TOPICAL ×2 (08:27→21:36)
[2024-02-03] MEDS: Nystatin Powder 15gm Bottle 1 APPLIC TOPICAL ×2 (08:30→21:37)
[2024-02-03] MEDS: Ensure Plus High Protein 120 ML LIQUID PO ×3 (11:59→21:36)
[2024-02-03 14:02] VITALS: BP 116/72; PULSE 76; RESP 18; TEMP 36.5; O2SAT 98
[2024-02-03 17:00] VITALS: PULSE 74; RESP 16; O2SAT 94
[2024-02-03] MEDS: Tamsulosin HCl 0.4 MG Capsule PO (17:09)
[2024-02-03] MEDS: CARBIDOPA/LEVODOPA CR 50/200 Tablet PO (21:36)
[2024-02-04] MEDS: Ensure Plus High Protein 120 ML LIQUID PO ×4 (06:25→20:59)
[2024-02-04 06:30] VITALS: PULSE 60; O2SAT 97
[2024-02-04] MEDS: Menthol/Lanolin/Calamine/Znox 113 GM Tube 1 APPLIC TOPICAL ×2 (07:40→21:02)
[2024-02-04] MEDS: Sodium Chloride 0.65% 1 SPRAY SPRAY.BTL NASAL ×2 (07:41→20:59)
[2024-02-04] MEDS: Nystatin Powder 15gm Bottle 1 APPLIC TOPICAL ×2 (07:41→21:02)
[2024-02-04] MEDS: Amantadine 100 MG Capsule PO (07:42)
[2024-02-04] MEDS: Carvedilol 6.25 MG Tablet PO ×2 (07:42→16:56)
[2024-02-04] MEDS: Carbidopa/Levodopa 25/100 Tablet PO ×3 (07:42→16:56)
[2024-02-04] MEDS: Pantoprazole Sodium 40 MG Tablet PO (07:42)
[2024-02-04] MEDS: Senna/Docusate Sodium 1 Tablet 2 TABLET PO ×2 (07:42→21:00)
[2024-02-04 09:00] VITALS: BMI 21.5
--- NOTE | 2024-02-04 10:10 | NURSING ---
Spoke with daughter Jeane, she would like to be present for ostomy care/changing appliance today. She will be in today around 4:45.
[2024-02-04 13:15] VITALS: BP 111/64; PULSE 64; RESP 16; TEMP 36.6; O2SAT 97
--- NOTE | 2024-02-04 14:40 | WOUNDNOTE ---
Daughter wanting to come in this evening for further ostomy training. nurse will change appliance with daughter this evening. this nurse has worked with patient a few times to see if patient is able to empty the appliance or even snap together the pouch. patient does not have the fine motor skills to perform these tasks. patient will most likely need someone to be with him at home at all times or go to a custodial at discharge. will continue to work with patient but the Parkinson's continues to progress. patient remains willing to try.
[2024-02-04] MEDS: Tamsulosin HCl 0.4 MG Capsule PO (16:56)
[2024-02-04] MEDS: CARBIDOPA/LEVODOPA CR 50/200 Tablet PO (21:00)
[2024-02-05] MEDS: Sodium Chloride 0.65% 1 SPRAY SPRAY.BTL NASAL ×2 (08:00→21:27)
[2024-02-05] MEDS: Carbidopa/Levodopa 25/100 Tablet PO ×3 (08:01→16:11)
[2024-02-05] MEDS: Menthol/Lanolin/Calamine/Znox 113 GM Tube 1 APPLIC TOPICAL ×2 (08:01→21:35)
[2024-02-05] MEDS: Carvedilol 6.25 MG Tablet PO ×2 (08:01→16:11)
[2024-02-05] MEDS: Nystatin Powder 15gm Bottle 1 APPLIC TOPICAL ×2 (08:02→21:35)
[2024-02-05] MEDS: Amantadine 100 MG Capsule PO (08:02)
[2024-02-05] MEDS: Pantoprazole Sodium 40 MG Tablet PO (08:02)
[2024-02-05] MEDS: Senna/Docusate Sodium 1 Tablet 2 TABLET PO ×2 (08:02→21:28)
[2024-02-05 08:09] VITALS: BP 113/70; PULSE 64
[2024-02-05] MEDS: Ensure Plus High Protein 120 ML LIQUID PO ×3 (11:49→21:27)
[2024-02-05 12:44] VITALS: BP 112/68; PULSE 62; RESP 16; TEMP 36.3; O2SAT 98
[2024-02-05] MEDS: Tamsulosin HCl 0.4 MG Capsule PO (16:12)
[2024-02-05] MEDS: CARBIDOPA/LEVODOPA CR 50/200 Tablet PO (21:28)
[2024-02-06] MEDS: Menthol/Lanolin/Calamine/Znox 113 GM Tube 1 APPLIC TOPICAL ×2 (08:41→22:18)
[2024-02-06] MEDS: Sodium Chloride 0.65% 1 SPRAY SPRAY.BTL NASAL ×2 (08:42→22:18)
[2024-02-06] MEDS: Carbidopa/Levodopa 25/100 Tablet PO ×3 (08:47→16:27)
[2024-02-06] MEDS: Nystatin Powder 15gm Bottle 1 APPLIC TOPICAL ×2 (08:47→22:19)
[2024-02-06] MEDS: Amantadine 100 MG Capsule PO (08:48)
[2024-02-06] MEDS: Senna/Docusate Sodium 1 Tablet 2 TABLET PO ×2 (08:48→22:18)
[2024-02-06] MEDS: Pantoprazole Sodium 40 MG Tablet PO (08:48)
[2024-02-06] MEDS: Carvedilol 6.25 MG Tablet PO ×2 (08:48→16:28)
[2024-02-06 08:52] VITALS: BP 121/55; PULSE 68
[2024-02-06 11:00] VITALS: PULSE 62; RESP 18; O2SAT 97
[2024-02-06] MEDS: Ensure Plus High Protein 120 ML LIQUID PO ×3 (11:55→22:18)
--- NOTE | 2024-02-06 13:01 | NURSING ---
COLOSTOMY CHANGED TODAY DUE TO ADHESIVE SIDES CAME LOOSE AND LEAKING. RED RASH IN SOME AREAS OF ADHESIVE. NO COMPLAINTS FROM PT. AREA CLEANED WITH SOAP AND WATER AND NEW OSTOMY APPLIANCE APPLIED. PT TOLERATED WELL. RN AND SHARAN MISHRA/WOUND NURSE AWARE.
[2024-02-06 13:17] VITALS: BP 105/65; PULSE 65; RESP 16; TEMP 36.3; O2SAT 98
[2024-02-06] MEDS: Tamsulosin HCl 0.4 MG Capsule PO (16:30)
[2024-02-06] MEDS: CARBIDOPA/LEVODOPA CR 50/200 Tablet PO (22:18)
[2024-02-07] MEDS: Menthol/Lanolin/Calamine/Znox 113 GM Tube 1 APPLIC TOPICAL ×2 (07:58→21:54)
[2024-02-07] MEDS: Pantoprazole Sodium 40 MG Tablet PO (07:59)
[2024-02-07] MEDS: Senna/Docusate Sodium 1 Tablet 2 TABLET PO ×2 (07:59→21:57)
[2024-02-07] MEDS: Amantadine 100 MG Capsule PO (07:59)
[2024-02-07] MEDS: Sodium Chloride 0.65% 1 SPRAY SPRAY.BTL NASAL ×2 (07:59→21:56)
[2024-02-07] MEDS: Carbidopa/Levodopa 25/100 Tablet PO ×3 (07:59→17:07)
[2024-02-07] MEDS: Nystatin Powder 15gm Bottle 1 APPLIC TOPICAL ×2 (07:59→21:54)
[2024-02-07] MEDS: Carvedilol 6.25 MG Tablet PO ×2 (07:59→17:08)
[2024-02-07] MEDS: Ensure Plus High Protein 120 ML LIQUID PO ×3 (11:11→21:53)
--- NOTE | 2024-02-07 14:35 | WOUNDNOTE ---
Ostomy appliance was changed yesterday per nursing staff d/t leak. ELIZABETH Young plans to change appliance this evening with another daughter per request. appliance intact at this time.
[2024-02-07 16:00] VITALS: BP 105/69; PULSE 65; RESP 12; TEMP 36.6; O2SAT 98
[2024-02-07] MEDS: Tamsulosin HCl 0.4 MG Capsule PO (17:08)
[2024-02-07] MEDS: CARBIDOPA/LEVODOPA CR 50/200 Tablet PO (21:55)
[2024-02-08 09:06] VITALS: BP 102/64; PULSE 63; RESP 19; TEMP 36.5; O2SAT 98
[2024-02-08] MEDS: Pantoprazole Sodium 40 MG Tablet PO (09:08)
[2024-02-08] MEDS: Carvedilol 6.25 MG Tablet PO ×2 (09:08→17:20)
[2024-02-08] MEDS: Senna/Docusate Sodium 1 Tablet 2 TABLET PO ×2 (09:08→22:29)
[2024-02-08] MEDS: Carbidopa/Levodopa 25/100 Tablet PO ×3 (09:09→17:20)
[2024-02-08] MEDS: Amantadine 100 MG Capsule PO (09:09)
[2024-02-08] MEDS: Sodium Chloride 0.65% 1 SPRAY SPRAY.BTL NASAL ×2 (09:10→22:29)
[2024-02-08] MEDS: Nystatin Powder 15gm Bottle 1 APPLIC TOPICAL ×2 (09:10→22:30)
[2024-02-08] MEDS: Menthol/Lanolin/Calamine/Znox 113 GM Tube 1 APPLIC TOPICAL ×2 (09:11→22:28)
[2024-02-08] MEDS: Ensure Plus High Protein 120 ML LIQUID PO ×3 (13:10→22:28)
[2024-02-08 15:20] VITALS: BP 107/72; PULSE 64; RESP 14; TEMP 36.6; O2SAT 99
[2024-02-08] MEDS: Tamsulosin HCl 0.4 MG Capsule PO (17:20)
[2024-02-08] MEDS: CARBIDOPA/LEVODOPA CR 50/200 Tablet PO (22:30)
[2024-02-09 08:28] VITALS: BP 116/68; PULSE 63; RESP 17; TEMP 36.3; O2SAT 100
[2024-02-09] MEDS: Carvedilol 6.25 MG Tablet PO ×2 (08:31→17:30)
[2024-02-09] MEDS: Carbidopa/Levodopa 25/100 Tablet PO ×3 (08:31→16:15)
[2024-02-09] MEDS: Nystatin Powder 15gm Bottle 1 APPLIC TOPICAL ×2 (08:32→20:50)
[2024-02-09] MEDS: Pantoprazole Sodium 40 MG Tablet PO (08:32)
[2024-02-09] MEDS: Sodium Chloride 0.65% 1 SPRAY SPRAY.BTL NASAL ×2 (08:32→20:48)
[2024-02-09] MEDS: Menthol/Lanolin/Calamine/Znox 113 GM Tube 1 APPLIC TOPICAL ×2 (08:32→20:50)
[2024-02-09] MEDS: Amantadine 100 MG Capsule PO (08:33)
[2024-02-09] MEDS: Senna/Docusate Sodium 1 Tablet 2 TABLET PO ×2 (08:33→20:49)
[2024-02-09] MEDS: Ensure Plus High Protein 120 ML LIQUID PO ×4 (08:34→20:48)
[2024-02-09 17:28] VITALS: BP 128/68; PULSE 62
[2024-02-09] MEDS: Tamsulosin HCl 0.4 MG Capsule PO (17:30)
[2024-02-09] MEDS: CARBIDOPA/LEVODOPA CR 50/200 Tablet PO (20:50)
[2024-02-10] MEDS: Sodium Chloride 0.65% 1 SPRAY SPRAY.BTL NASAL ×2 (07:50→21:19)
[2024-02-10] MEDS: Amantadine 100 MG Capsule PO (07:51)
[2024-02-10] MEDS: Carvedilol 6.25 MG Tablet PO ×2 (07:51→17:34)
[2024-02-10] MEDS: Senna/Docusate Sodium 1 Tablet 2 TABLET PO ×2 (07:51→21:19)
[2024-02-10] MEDS: Carbidopa/Levodopa 25/100 Tablet PO ×3 (07:51→16:36)
[2024-02-10] MEDS: Pantoprazole Sodium 40 MG Tablet PO (07:51)
[2024-02-10] MEDS: Menthol/Lanolin/Calamine/Znox 113 GM Tube 1 APPLIC TOPICAL ×2 (07:53→21:20)
[2024-02-10] MEDS: Nystatin Powder 15gm Bottle 1 APPLIC TOPICAL ×2 (07:54→21:20)
[2024-02-10 08:00] VITALS: BP 132/68; PULSE 61
[2024-02-10 11:15] VITALS: PULSE 72; RESP 18; O2SAT 97
[2024-02-10] MEDS: Ensure Plus High Protein 120 ML LIQUID PO ×3 (11:18→21:18)
[2024-02-10 13:25] VITALS: BP 101/58; PULSE 67; RESP 16; TEMP 36.2; O2SAT 97
--- NOTE | 2024-02-10 14:30 | WOUNDNOTE ---
Colostomy appliance intact. will plan to change appliance again tomorrow. have been changing the appliances twice a week.
[2024-02-10] MEDS: Tamsulosin HCl 0.4 MG Capsule PO (17:34)
[2024-02-10] MEDS: CARBIDOPA/LEVODOPA CR 50/200 Tablet PO (21:19)
[2024-02-11] MEDS: Carvedilol 6.25 MG Tablet PO ×2 (07:41→17:21)
[2024-02-11] MEDS: Sodium Chloride 0.65% 1 SPRAY SPRAY.BTL NASAL ×2 (07:41→22:39)
[2024-02-11] MEDS: Senna/Docusate Sodium 1 Tablet 2 TABLET PO ×2 (07:42→22:38)
[2024-02-11] MEDS: Carbidopa/Levodopa 25/100 Tablet PO ×3 (07:42→17:21)
[2024-02-11] MEDS: Amantadine 100 MG Capsule PO (07:42)
[2024-02-11] MEDS: Pantoprazole Sodium 40 MG Tablet PO (07:42)
[2024-02-11] MEDS: Menthol/Lanolin/Calamine/Znox 113 GM Tube 1 APPLIC TOPICAL ×2 (07:43→22:38)
[2024-02-11] MEDS: Nystatin Powder 15gm Bottle 1 APPLIC TOPICAL ×2 (07:43→22:39)
--- NOTE | 2024-02-11 08:58 | CASEMGMT ---
Social Work SW received completed FMLA form from Physician. SW provided patient with FMLA paperwork for his son, Fritz. Patient informed SW that he will provide paperwork to son. SW inquired about patient care plan. Patient informed SW that he has been discussing transition of care plan with his daughter. Patient and family would like more information regarding home health care services via [facility]. Patient informed SW that secondary plan is placement at [facility] or [facility]. Patient informed SW that his daughter will be visiting sites. Patient informed SW that he prefers home health care with family support as primary transition of care plans. SW provided patient with a printed list of [facility] providers including quality and resources use data and consistent with the patient's preferrd geographic region, medical needs, and insurance network via [employer]. LAURA Kimball
[2024-02-11 09:00] VITALS: BMI 21.2
[2024-02-11] MEDS: Ensure Plus High Protein 120 ML LIQUID PO ×3 (11:20→22:38)
[2024-02-11 13:51] VITALS: BP 118/66; PULSE 72; RESP 18; TEMP 36.4; O2SAT 94
[2024-02-11] MEDS: Tamsulosin HCl 0.4 MG Capsule PO (17:21)
[2024-02-11] MEDS: CARBIDOPA/LEVODOPA CR 50/200 Tablet PO (22:38)
[2024-02-11 23:00] VITALS: PULSE 64; RESP 16; O2SAT 98
[2024-02-12] MEDS: Ensure Plus High Protein 120 ML LIQUID PO ×4 (08:53→22:37)
[2024-02-12] MEDS: Carvedilol 6.25 MG Tablet PO ×2 (08:53→17:28)
[2024-02-12] MEDS: Carbidopa/Levodopa 25/100 Tablet PO ×3 (08:53→17:28)
[2024-02-12] MEDS: Senna/Docusate Sodium 1 Tablet 2 TABLET PO ×2 (08:54→22:37)
[2024-02-12] MEDS: Pantoprazole Sodium 40 MG Tablet PO (08:54)
[2024-02-12] MEDS: Amantadine 100 MG Capsule PO (08:54)
[2024-02-12] MEDS: Sodium Chloride 0.65% 1 SPRAY SPRAY.BTL NASAL ×2 (08:55→22:37)
[2024-02-12] MEDS: Nystatin Powder 15gm Bottle 1 APPLIC TOPICAL ×2 (08:57→22:42)
[2024-02-12] MEDS: Menthol/Lanolin/Calamine/Znox 113 GM Tube 1 APPLIC TOPICAL ×2 (08:57→22:41)
[2024-02-12 11:25] VITALS: BP 112/67; PULSE 64; RESP 16; TEMP 36.3; O2SAT 97
[2024-02-12] MEDS: Tamsulosin HCl 0.4 MG Capsule PO (17:29)
[2024-02-12] MEDS: CARBIDOPA/LEVODOPA CR 50/200 Tablet PO (22:38)
[2024-02-13] MEDS: Ensure Plus High Protein 120 ML LIQUID PO ×4 (06:35→20:28)
[2024-02-13] MEDS: Menthol/Lanolin/Calamine/Znox 113 GM Tube 1 APPLIC TOPICAL ×2 (08:14→20:30)
[2024-02-13] MEDS: Carbidopa/Levodopa 25/100 Tablet PO ×3 (08:15→16:37)
[2024-02-13] MEDS: Nystatin Powder 15gm Bottle 1 APPLIC TOPICAL ×2 (08:15→20:30)
[2024-02-13] MEDS: Pantoprazole Sodium 40 MG Tablet PO (08:16)
[2024-02-13] MEDS: Amantadine 100 MG Capsule PO (08:16)
[2024-02-13] MEDS: Carvedilol 6.25 MG Tablet PO ×2 (08:16→16:39)
[2024-02-13] MEDS: Senna/Docusate Sodium 1 Tablet 2 TABLET PO ×2 (08:16→20:28)
[2024-02-13] MEDS: Sodium Chloride 0.65% 1 SPRAY SPRAY.BTL NASAL ×2 (08:17→20:27)
[2024-02-13 08:21] VITALS: BP 101/58; PULSE 63
--- NOTE | 2024-02-13 10:02 | CASEMGMT ---
Social Work SW attempted to contact patient's daughter to discuss transition of care plans; no answer. SW contacted children via e-mail requesting follow up regarding discharge plans. SW received notification from [facility] that they are able to accept the patient for home health care services, if required. Nursing will only be able to assist with changing colostomy (1) a week. Patient will require family assistance to provide ostomy care and supervision in home. SW received message from patient and daughter. Patient's daughter will be available on 02/14/2024 at 1515 to discuss care plans. SW will meet with patient and family to review discharge disposition on 02/14/2024 at 1515. SW met with patient at bedside per patient request to discuss [facility] services. SW informed patient of limited care provided by home health care services. Patient informed SW that his daughter, Jeane and family will be assisting in the home for a few weeks to help patient manage care and acclimate to home routine. The patient informed SW that secondary plan is transitioning to [facility]UST[facility], if home health care does not support patient quality of care needed. Patient inquired about personal care for house cleaning and laundry. SW informed patient that resources was provided to daughter on previous conversations regarding care. Patient was thankful for resources. Patient declined any needs at this time. Discharge goal: Home with home health care [facility] PT/OT/SN/PAVAN/LAURA Daniels
--- NOTE | 2024-02-13 13:17 | NURSING ---
COLOSTOMY LEAKING. RN CHANGED WHOLE UNIT.
[2024-02-13 15:10] VITALS: BP 100/61; PULSE 65; RESP 17; TEMP 36.3; O2SAT 95
[2024-02-13] MEDS: Tamsulosin HCl 0.4 MG Capsule PO (16:37)
[2024-02-13] MEDS: CARBIDOPA/LEVODOPA CR 50/200 Tablet PO (20:28)
[2024-02-14] MEDS: Menthol/Lanolin/Calamine/Znox 113 GM Tube 1 APPLIC TOPICAL ×2 (08:05→20:16)
[2024-02-14] MEDS: Carbidopa/Levodopa 25/100 Tablet PO ×3 (08:06→16:59)
[2024-02-14] MEDS: Sodium Chloride 0.65% 1 SPRAY SPRAY.BTL NASAL ×2 (08:06→20:13)
[2024-02-14] MEDS: Carvedilol 6.25 MG Tablet PO ×2 (08:06→16:58)
[2024-02-14] MEDS: Nystatin Powder 15gm Bottle 1 APPLIC TOPICAL ×2 (08:06→20:16)
[2024-02-14] MEDS: Pantoprazole Sodium 40 MG Tablet PO (08:06)
[2024-02-14] MEDS: Amantadine 100 MG Capsule PO (08:07)
[2024-02-14] MEDS: Senna/Docusate Sodium 1 Tablet 2 TABLET PO ×2 (08:07→20:15)
[2024-02-14 10:00] VITALS: O2SAT 99
[2024-02-14] MEDS: Ensure Plus High Protein 120 ML LIQUID PO ×3 (11:40→20:13)
[2024-02-14] MEDS: Hydrocortisone 2.5% Crm 1 APPLIC TOPICAL (13:00)
--- NOTE | 2024-02-14 15:43 | CASEMGMT ---
Social Work DUGLAS met with patient and daughter, Carmella at bedside to discuss discharge plans. DUGLAS reviewed anticipated plans for discharge home with home health care services- [facility] PT/OT/SN/FRONT DESK MANAGER/[facility]. Patient confirmed that he would like to try being in home with family assistance and home health. Carmella informed SW that she is agreeable to transition of care plans. SW informed patient and Carmella of therapuetic concerns for patient's balance and risk for falls. SW informed patient and daughter that therapy is requesting for family teaching for therapy. Carmella informed SW that she will be able to obtain training in the up coming week. Carmella confirmed that she will be able to assist patient with ostomy care. Carmella and patient informed SW that the family has DME in the home to support patient transition. Patient informed SW that he is still open to transitioning to [facility] or [facility], if needed. Patient's daughter confirmed plans. Patient's family moved the patient's bedroom to the main floor of the home. DUGLAS informed Carmella that anticipated discharge date is 02/21/2024. Patient and Carmella are agreeable to discharge to home with [facility] at this time. Arjun will provide availability to train with therapy. Discharge: 02/21/2024 [facility] PT/OT/SN/PAVAN/LAURA Daniels
[2024-02-14 15:47] VITALS: BP 129/68; PULSE 61; RESP 18; TEMP 36.9; O2SAT 99
[2024-02-14] MEDS: Tamsulosin HCl 0.4 MG Capsule PO (16:58)
[2024-02-14] MEDS: CARBIDOPA/LEVODOPA CR 50/200 Tablet PO (20:15)
[2024-02-15 10:00] VITALS: PULSE 64
[2024-02-15 10:02] VITALS: BP 110/62; PULSE 61; RESP 16; TEMP 36.6; O2SAT 96
[2024-02-15] MEDS: Carbidopa/Levodopa 25/100 Tablet PO ×3 (10:05→17:06)
[2024-02-15] MEDS: Senna/Docusate Sodium 1 Tablet 2 TABLET PO ×2 (10:06→22:22)
[2024-02-15] MEDS: Carvedilol 6.25 MG Tablet PO ×2 (10:06→17:07)
[2024-02-15] MEDS: Amantadine 100 MG Capsule PO (10:06)
[2024-02-15] MEDS: Pantoprazole Sodium 40 MG Tablet PO (10:07)
[2024-02-15] MEDS: Nystatin Powder 15gm Bottle 1 APPLIC TOPICAL ×2 (10:09→22:23)
[2024-02-15] MEDS: Menthol/Lanolin/Calamine/Znox 113 GM Tube 1 APPLIC TOPICAL ×2 (10:09→22:21)
[2024-02-15] MEDS: Sodium Chloride 0.65% 1 SPRAY SPRAY.BTL NASAL ×2 (10:10→22:21)
[2024-02-15] MEDS: Ensure Plus High Protein 120 ML LIQUID PO ×3 (12:48→22:21)
[2024-02-15 17:04] VITALS: BP 124/69; PULSE 64; RESP 16
[2024-02-15] MEDS: Tamsulosin HCl 0.4 MG Capsule PO (17:07)
[2024-02-15] MEDS: CARBIDOPA/LEVODOPA CR 50/200 Tablet PO (22:21)
[2024-02-16] MEDS: Ensure Plus High Protein 120 ML LIQUID PO ×4 (06:41→21:59)
[2024-02-16] MEDS: Carvedilol 6.25 MG Tablet PO ×2 (09:19→17:19)
[2024-02-16] MEDS: Carbidopa/Levodopa 25/100 Tablet PO ×3 (09:19→17:19)
[2024-02-16] MEDS: Senna/Docusate Sodium 1 Tablet 2 TABLET PO ×2 (09:20→21:59)
[2024-02-16] MEDS: Pantoprazole Sodium 40 MG Tablet PO (09:20)
[2024-02-16] MEDS: Amantadine 100 MG Capsule PO (09:20)
[2024-02-16] MEDS: Menthol/Lanolin/Calamine/Znox 113 GM Tube 1 APPLIC TOPICAL ×2 (09:20→22:02)
[2024-02-16] MEDS: Nystatin Powder 15gm Bottle 1 APPLIC TOPICAL ×2 (09:21→22:02)
[2024-02-16] MEDS: Sodium Chloride 0.65% 1 SPRAY SPRAY.BTL NASAL ×2 (09:22→21:59)
[2024-02-16 15:55] VITALS: BP 118/64; PULSE 67; RESP 18; TEMP 36.2; O2SAT 98
[2024-02-16] MEDS: Tamsulosin HCl 0.4 MG Capsule PO (17:22)
[2024-02-16] MEDS: CARBIDOPA/LEVODOPA CR 50/200 Tablet PO (22:00)
[2024-02-17] MEDS: Ensure Plus High Protein 120 ML LIQUID PO ×4 (06:48→20:34)
[2024-02-17] MEDS: Carvedilol 6.25 MG Tablet PO ×2 (08:12→18:18)
[2024-02-17] MEDS: Carbidopa/Levodopa 25/100 Tablet PO ×3 (08:12→16:36)
[2024-02-17] MEDS: Sodium Chloride 0.65% 1 SPRAY SPRAY.BTL NASAL ×2 (08:13→20:34)
[2024-02-17] MEDS: Amantadine 100 MG Capsule PO (08:14)
[2024-02-17] MEDS: Senna/Docusate Sodium 1 Tablet 2 TABLET PO ×2 (08:14→20:35)
[2024-02-17] MEDS: Pantoprazole Sodium 40 MG Tablet PO (08:14)
[2024-02-17] MEDS: Menthol/Lanolin/Calamine/Znox 113 GM Tube 1 APPLIC TOPICAL ×2 (08:16→20:33)
[2024-02-17] MEDS: Nystatin Powder 15gm Bottle 1 APPLIC TOPICAL ×2 (08:16→20:33)
--- NOTE | 2024-02-17 09:00 | CASEMGMT ---
Social Work SW met with patient at bedside to provide NOMNC for discontinuation of skilled service effective 02/20/2024; anticipated discharge 02/21/2024 Patient is agreeable to discharge home with home health. Patient has been accepted by [facility] for SN/PT/OT/AFTER SCHOOL TEACHER/MINE PROMOTOR services. Patient anticipates family assistance in the home upon discharge. Patient's daughter informed SW that she will provide transportation to home around 4PM on 02/21/2024. Secondary plan discharge to [facility] or [facility], if patient is unable to adjust to home health safely with family Discharge: Home with [facility] SN/PT/OT/AFTER SCHOOL TEACHER/MINE PROMOTOR LAURA Kimball
--- NOTE | 2024-02-17 10:29 | PCM.PN.DRR ---
Documented by User: Angelito Mathew 02/17/24 10:41 TCU RX Drug Regimen Review Subjective/Objective Subjective/Objective: Subjective: TCU progress note. 78 year old male with Parkinson Disease, hospitalized for bowel obstruction/sigmoid volvulus, underwent partial colectomy/colostomy 12/15/2023, complicated by fever, urinary retention, hematuria, MANPREET, admitted to TCU with debility, here for rehabilitation, strengthening, prior to discharge home alone. Objective: Allergies No Known Allergies Allergy (Verified 12/13/23 11:57) Current Medications Generic Name Dose Route Start Last Admin Trade Name Freq PRN Reason Stop Dose Admin Acetaminophen 1,000 mg 12/24/23 20:18 Acetaminophen 500 Mg Tablet PO Q6H PRN PRN Pain Score 1-10 Amantadine HCl 100 mg 12/25/23 12:00 02/17/24 08:14 Amantadine 100 Mg Capsule PO 100 mg DAILY GAURI Administration Artificial Tears 1 drp 01/06/24 09:58 01/17/24 07:54 Carboxymethylcellulose Sodium 1 Drp Drops OPHTHALMIC 1 drp Q6H PRN PRN Administration DRY EYES Calamine/Phenol 1 applic 02/02/24 11:10 02/17/24 08:16 Menthol/Lanolin/Calamine/Znox 113 Gm Tube TOPICAL 1 applic BID GAURI Administration Protocol Carbidopa/Levodopa 2 tablet 01/14/24 08:00 02/17/24 08:12 Carbidopa/Levodopa 25/100 Tablet PO 2 tablet 0800 GAURI Administration Carbidopa/Levodopa 2 tablet 01/14/24 11:00 02/16/24 17:19 Carbidopa/Levodopa 25/100 Tablet PO 2 tablet BID@1100,1600 GAURI Administration Carbidopa/Levodopa 1 tablet 01/13/24 22:00 02/16/24 22:00 Carbidopa/Levodopa Cr 50/200 Tablet PO 1 tablet QHS GAURI Administration Carvedilol 6.25 mg 12/24/23 22:00 02/17/24 08:12 Carvedilol 6.25 Mg Tablet PO 6.25 mg BIDCM GAURI Administration Protocol Hydrocortisone 1 applic 01/17/24 13:14 02/14/24 13:00 Hydrocortisone 2.5% Crm TOPICAL 1 applic TID PRN PRN Administration RASH/TOPICAL IRRITATION Protocol Melatonin 5 mg 02/02/24 10:29 Melatonin 10 Mg Tablet PO QHS PRN INSOMNIA Nutritional Formula (Lactose Free) 120 ml 02/02/24 12:00 02/17/24 06:48 Ensure Plus High Protein 120 Ml Liquid PO 120 ml 4X/DAY GAURI Administration Nystatin 1 applic 02/02/24 22:00 02/17/24 08:16 Nystatin Powder 15gm Bottle TOPICAL 1 applic BID GAURI Administration Protocol Pantoprazole Sodium 40 mg 12/25/23 10:00 02/17/24 08:14 Pantoprazole Sodium 40 Mg Tablet PO 40 mg DAILY GAURI Administration Senna/Docusate Sodium 2 tablet 01/15/24 22:00 02/17/24 08:14 Senna/Docusate Sodium 1 Tablet PO 2 tablet BID GAURI Administration Sodium Chloride 1 spray 12/26/23 22:00 02/17/24 08:13 Sodium Chloride 0.65% 1 Nickerson Nickerson.Btl NASAL 1 spray BID GAURI Administration Sodium Chloride 1 spray 01/04/24 11:30 Sodium Chloride 0.65% 1 Nickerson Nickerson.Btl NASAL BID PRN PRN NASAL DRYNESS Sodium Chloride 10 - 40 ml 02/02/24 10:29 0.9% Saline Lock 10 Ml Syringe IV UD PRN SALINE FLUSH Tamsulosin HCl 0.4 mg 12/24/23 17:30 02/16/24 17:22 Tamsulosin Hcl 0.4 Mg Capsule PO 0.4 mg DAILY@1730 GAURI Administration Problem List (Updated 01/06/24 @ 11:51 by Karin DELEON, PA-C) Postoperative seroma (Acute) Parkinson disease (Acute) Acute kidney injury (Acute) Urinary retention (Acute) Debility (Acute) Hematuria (Acute) Vital Signs Temp Pulse Resp BP Pulse Ox O2 Del Method 97.2 F L 67 18 118/64 98 Room Air 02/16/24 15:55 02/16/24 15:55 02/16/24 15:55 02/16/24 15:55 02/16/24 15:55 02/16/24 15:55 Oxygen Delivery Method Room Air Weight: 67.495 kg Body Mass Index (BMI) 21.2 Sodium 139 mmol/L (136-145) 01/28/24 05:19 Potassium 3.9 mmol/L (3.5-5.1) 01/28/24 05:19 Chloride 104 mmol/L (98-107) 01/28/24 05:19 Carbon Dioxide 26.0 mmol/L (21.0-32.0) 01/28/24 05:19 Anion Gap 9 (5-15) 01/28/24 05:19 BUN 23 mg/dL (7-18) H 01/28/24 05:19 Creatinine 0.87 mg/dL (0.70-1.30) 01/28/24 05:19 Est GFR (MDRD) Af Amer 110 mL/min (>60) 01/28/24 05:19 Est GFR (MDRD) Non-Af 91 mL/min (>60) 01/28/24 05:19 BUN/Creatinine Ratio 26.5 RATIO (10-20) H 01/28/24 05:19 Glucose 96 mg/dL (74-106) 01/28/24 05:19 Assessment/Plan: 1. Pain: Tylenol 1000mg PO Q6h PRN Pain 1-10. The patient has not required any PRN doses of PRN acetaminophen so far this admission. Please continue to monitor for increased/decreased S/S pain, and PRN medication usage. 2. Bowel: Senna/docusate 2 tablets PO BID. The patient's last bowel movement was 02/15/24. Please continue to monitor for constipation, diarrhea, and BM. 3. Parkinson Disease: Sinemet 25/100mg 2 tabs PO TID, Sinemet 50/200mg 1 tab PO QHS, Amantadine 100mg PO Daily. Please continue to monitor for dizziness, insomnia, nausea, dyskinesia, swelling, constipation. 3. Hypertension: carvedilol 6.25mg PO BID. Please continue to monitor BP (recent range = 100-132/61-72 mmHg), and heart rates (recent range = 61-72 BPM). 4. BPH/Urinary retention: tamsulosin 0.4mg PO Daily. Please continue to monitor for hematuria, blood pressure, urinary retention and for s/s of orthostasis. 5. GERD: pantoprazole 40 mg PO daily. Please continue to monitor for s/s of GERD, for diarrhea that could indicate clostridium difficile infection as well as for s/s of bone resorption such as fractures. 6. Insomnia: melatonin 5 mg PO QHS PRN insomnia. The patient has not required any PRN doses of melatonin so far this admission. Please continue to monitor for insomnia, and PRN medication usage as well as drowsiness. 7. Dry eyes: artificial tears 1 drop in each eye Q6H PRN dry eyes. The patient has used 19 doses of artificial tears so far this admission. Please continue to monitor for dry eyes and for PRN medication usage. 8. Dry nares: ocean nasal spray 1 spray in each nostril BID and BID PRN dry nares. Please continue to monitor for dry nares and PRN medication administration. 9. Rash/skin irritation/tinea corporis: hydrocortisone 2.5% cream topically TID PRN rash, calmoseptine 1 application topically BID, nystatin powder 1 application BID. Please continue to monitor for rash, for skin irritation/integrity and for resolution of tinea corporis. 10. Nutrition: ensure 120 mL PO 4x per day. Please continue to monitor nutritional status. Assessment/Plan for indications treated with psychotropic medications: NA Medical chart and medication regimen reviewed. The following medication irregularities or issues were identified: NA Date Date of Note:: 02/17/24 Documented by User: Dr. Ravi Conway MD 02/17/24 11:58 TCU RX Drug Regimen Review Provider Comments Provider responsibility Provider Comments to Recommendations by Pharmacy: Agree
[2024-02-17 12:52] VITALS: BP 105/62; PULSE 58; RESP 16; TEMP 36.2; O2SAT 98
--- NOTE | 2024-02-17 14:30 | WOUNDNOTE ---
Pt up ambulating in the halls with therapy.
[2024-02-17 18:18] LABS: Mucous, Urine 0 SEEN /hpf (<or=2+)
[2024-02-17] MEDS: Tamsulosin HCl 0.4 MG Capsule PO (18:18)
[2024-02-17 18:25] LABS: Color, Urine Yellow (Yellow); Glucose, Dipstick Normal (Normal); Ketone-Dipstick 5 mg/dl (Negative); Leukocyte Esterase-Dipstick 500 /ul (Negative); Nitrite-Dipstick Negative (Negative); Occult Blood-Urine 50 /ul (Negative); Protein-Dipstick 15 mg/dl (Negative); Specific Gravity, Urine 1.025 (1.002-1.030); Urine Bilirubin Dipstick Negative (Negative); Urine Clarity Sl. Cloudy (Clear); Urine Urobilinogen Normal (Normal)
[2024-02-17 18:37] LABS: Bacteria 1+ /hpf (None Seen); Red Blood Cells-Urine 10-25 SEEN /hpf (0-5); Squamous Epithelial Cells - UA 5-10 SEEN /hpf (0-5); White Blood Cells 50-100 SEEN /hpf (0-5)
[2024-02-17] MEDS: CARBIDOPA/LEVODOPA CR 50/200 Tablet PO (20:36)
[2024-02-17 22:00] VITALS: PULSE 70; O2SAT 98
[2024-02-18] MEDS: Ensure Plus High Protein 120 ML LIQUID PO ×4 (05:59→20:01)
[2024-02-18 06:12] VITALS: PULSE 62; O2SAT 97
[2024-02-18] MEDS: Senna/Docusate Sodium 1 Tablet 2 TABLET PO ×2 (07:47→20:02)
[2024-02-18] MEDS: Amantadine 100 MG Capsule PO (07:47)
[2024-02-18] MEDS: Carvedilol 6.25 MG Tablet PO ×2 (07:47→17:45)
[2024-02-18] MEDS: Carbidopa/Levodopa 25/100 Tablet PO ×3 (07:48→17:46)
[2024-02-18] MEDS: Pantoprazole Sodium 40 MG Tablet PO (07:48)
[2024-02-18] MEDS: Nystatin Powder 15gm Bottle 1 APPLIC TOPICAL ×2 (07:48→20:01)
[2024-02-18] MEDS: Menthol/Lanolin/Calamine/Znox 113 GM Tube 1 APPLIC TOPICAL ×2 (07:48→20:00)
[2024-02-18] MEDS: Sodium Chloride 0.65% 1 SPRAY SPRAY.BTL NASAL ×2 (07:49→20:01)
[2024-02-18 08:15] VITALS: BP 110/60; PULSE 66; RESP 16; TEMP 36.4; O2SAT 97
[2024-02-18 09:00] VITALS: BMI 21.4
[2024-02-18] MEDS: Ciprofloxacin 250 MG Tablet PO ×2 (09:52→20:00)
--- NOTE | 2024-02-18 12:01 | WOUNDNOTE ---
Colostomy appliance had been leaking. nursing was changing the appliance and noted some increased redness to the peristomal skin. patient has some redness to bilateral groin that appears to be lex. patient getting Nystatin powder. does seem to be improving. stoma remains pink and well budded. skin cleansed with soap and water. pat dry. lightly dusted with stoma powder and applied skin prep. applied a new 2 piece flat [place] appliance with a small amount of stoma paste. pt tolerated well. see wound/stoma photo. Pt now has small open area along the previously healed incision. small amount of bloody drainage noted. wound depth is approx 0.5cm. no purulence noted. cleansed with soap and water. pat dry. applied Aquacel AG and covered with dry dressings.
--- NOTE | 2024-02-18 13:04 | WOUNDNOTE ---
wound/stoma photo: abdomen
--- NOTE | 2024-02-18 13:04 | WOUNDNOTE ---
wound photo: abdomen
--- NOTE | 2024-02-18 13:05 | WOUNDNOTE ---
skin photo: bilateral groin
[2024-02-18] MEDS: Tamsulosin HCl 0.4 MG Capsule PO (17:46)
[2024-02-18 17:47] VITALS: BP 130/78; PULSE 72
[2024-02-18] MEDS: CARBIDOPA/LEVODOPA CR 50/200 Tablet PO (20:03)
[2024-02-19] MEDS: Ensure Plus High Protein 120 ML LIQUID PO ×4 (05:54→20:23)
[2024-02-19] MEDS: Sodium Chloride 0.65% 1 SPRAY SPRAY.BTL NASAL ×2 (08:00→20:23)
[2024-02-19] MEDS: Carbidopa/Levodopa 25/100 Tablet PO ×3 (08:02→16:03)
[2024-02-19] MEDS: Menthol/Lanolin/Calamine/Znox 113 GM Tube 1 APPLIC TOPICAL ×2 (08:02→20:24)
[2024-02-19] MEDS: Carvedilol 6.25 MG Tablet PO ×2 (08:02→17:17)
[2024-02-19] MEDS: Nystatin Powder 15gm Bottle 1 APPLIC TOPICAL ×2 (08:03→20:24)
[2024-02-19] MEDS: Pantoprazole Sodium 40 MG Tablet PO (08:03)
[2024-02-19] MEDS: Amantadine 100 MG Capsule PO (08:04)
[2024-02-19] MEDS: Senna/Docusate Sodium 1 Tablet 2 TABLET PO ×2 (08:04→20:25)
[2024-02-19 08:09] VITALS: BP 105/59; PULSE 67
--- NOTE | 2024-02-19 10:06 | PCM.PN.SRG ---
Subjective Subjective Patient seen and examined during AM rounds after being notified by wound and ostomy nursing that previously close midline wound had reopened in 1 aspect. Mr. Carver states that he is doing well and this enthusiastic about plans to return home at the end of this week. He confirms that he has lots of help in place. He also shares that he is doing well from a dietary standpoint and has added back 12 pounds of his initial weight loss of 18 pounds. Objective Data Objective Data Vital Signs: Vital Signs Temp Pulse Resp BP Pulse Ox O2 Del Method 97.6 F L 67 16 105/59 L 97 Room Air 02/18/24 08:15 02/19/24 08:09 02/18/24 08:15 02/19/24 08:09 02/18/24 08:15 02/18/24 08:15 Oxygen Delivery Method Room Air Weight: 149 lb 14.4 oz Body Mass Index (BMI) 21.4 Intake & Output: Intake and Output for Last 24 Hours 02/17/24 02/18/24 02/19/24 23:59 23:59 23:59 Intake Total 1080 / 1080 720 / 720 220 / 220 Balance 1080 / 1080 720 / 720 220 / 220 Lab / Micro Data 01/28/24 05:19 01/28/24 05:19 Micro: Microbiology 02/17/24 17:30 Urine, Catheterized Urine Culture - Preliminary Staphylococcus aureus Physical Exam Const oriented x3 and no apparent distress GI GI Narrative: Abdomen is nondistended and colostomy in left lower quadrant appears appropriate with good perfusion. There is no tenderness with palpation x 4 quadrants. Supraumbilical wound along patient's prior laparotomy incision appears to have reopened superficially and there is a silver dressing with dried drainage to it. There is no odor with this drainage. The wound is probed and I am able to feel suture material in the fascia at the wound base. The suture material was sharply removed with minimal bleeding. The wound was then repacked. Assessment & Plan Assessment/Plan (1) Foreign body reaction: PLAN: Patient is a 78-year-old male who underwent exploratory laparotomy with sigmoid resection on 12/15/2023. He had a short hospital stay following the operation and has remained in the transitional care unit ever since improving his nutrition and rehabilitating his strength. He is nearing discharge but in the past couple of days experience reopening of a wound that had been previously closed and felt to represent a seroma. Upon further inspection patient had a suture knot at the base of the wound that appeared to be propagating the sinus tract. Thus it was sharply removed at bedside during today's exam. This was well-tolerated the wound was repacked. Recommend daily packing of the wound until fully healed by secondary intention. Happy to see the patient in follow-up approximately 2 weeks post discharge from TCU for a wound check. Update is also being conveyed to wound and ostomy nursing. Charges/Coding Visit Charges Inpatient E&M: 21657 [facility] Subs L2
--- NOTE | 2024-02-19 10:48 | NURSING ---
IN TO SEE PT AND LOOK AT HIS WOUND ON ABDOMINAL.
[2024-02-19 11:00] VITALS: PULSE 60; RESP 16; O2SAT 97
--- NOTE | 2024-02-19 13:32 | CASEMGMT ---
Social Work DUGLAS received call from [facility] Cheryl GILLIAM who confirmed DUGLAS that the patient has been accept for home health care services; SOC: 02/22/2024 [facility] will order home ostomy supplies, DUGLAS provided patient reference order # for supplies. TCU to provide patient with a weeks worth of supplies for ostomy prior to discharge. LAURA Kimball
[2024-02-19 16:00] VITALS: BP 116/60; PULSE 58; RESP 14; TEMP 36.6; O2SAT 96
[2024-02-19] MEDS: Tamsulosin HCl 0.4 MG Capsule PO (17:18)
[2024-02-19] MEDS: CARBIDOPA/LEVODOPA CR 50/200 Tablet PO (20:25)
[2024-02-20 08:26] VITALS: BP 102/62; PULSE 68; RESP 18; O2SAT 96
[2024-02-20] MEDS: Carbidopa/Levodopa 25/100 Tablet PO ×3 (08:28→17:06)
[2024-02-20] MEDS: Sodium Chloride 0.65% 1 SPRAY SPRAY.BTL NASAL ×2 (08:28→21:37)
[2024-02-20] MEDS: Senna/Docusate Sodium 1 Tablet 2 TABLET PO ×2 (08:29→21:37)
[2024-02-20] MEDS: Ensure Plus High Protein 120 ML LIQUID PO ×4 (08:29→21:34)
[2024-02-20] MEDS: Amantadine 100 MG Capsule PO (08:29)
[2024-02-20] MEDS: Pantoprazole Sodium 40 MG Tablet PO (08:29)
[2024-02-20] MEDS: Carvedilol 6.25 MG Tablet PO ×2 (08:29→17:06)
[2024-02-20] MEDS: Menthol/Lanolin/Calamine/Znox 113 GM Tube 1 APPLIC TOPICAL ×2 (08:32→21:34)
[2024-02-20] MEDS: Nystatin Powder 15gm Bottle 1 APPLIC TOPICAL ×2 (08:32→21:34)
--- NOTE | 2024-02-20 09:50 | NURSING ---
Pt complains of urgency, burning w/ urination, and incontinence. Pt also has rash to left lower abdomen. Dr. Conway entered following new orders this morning: Macrobid 100mg BID, Diflucan 100mg daily x7 days. Pt in agreement with plan of care.
[2024-02-20] MEDS: Nitrofurantoin Macrocrystals 100 MG Capsule PO ×2 (09:53→17:06)
[2024-02-20] MEDS: Fluconazole 100 MG Tablet PO (09:53)
--- NOTE | 2024-02-20 11:56 | NURSING ---
Urine culture (02/16) results received this morning indicate positive Meth. resistant Staph. aureus [place] Count <1000 CFU/mL. RN aware. Pt placed in appropriate precautions.
[2024-02-20 13:42] VITALS: TEMP 36.5
--- NOTE | 2024-02-20 13:44 | WOUNDNOTE ---
wound/stoma photo: abdomen
--- NOTE | 2024-02-20 13:49 | WOUNDNOTE ---
Colostomy appliance changed. the redness to the peristomal skin is improved today. stoma remains well budded and pink. cleansed skin with warm water. applied a small amount of stoma powder to the reddened area and sealed with skin prep. applied a new 2 piece flat Mel appliance with a small amount of stoma paste. pt tolerated well. see wound/stoma photo.
[2024-02-20] MEDS: Tamsulosin HCl 0.4 MG Capsule PO (17:06)
[2024-02-20] MEDS: CARBIDOPA/LEVODOPA CR 50/200 Tablet PO (21:38)
[2024-02-21 04:06] VITALS: PULSE 64; O2SAT 97
[2024-02-21] MEDS: Ensure Plus High Protein 120 ML LIQUID PO ×3 (05:48→16:06)
[2024-02-21] MEDS: Carvedilol 6.25 MG Tablet PO ×2 (08:03→16:10)
[2024-02-21] MEDS: Carbidopa/Levodopa 25/100 Tablet PO ×3 (08:03→16:02)
[2024-02-21] MEDS: Nitrofurantoin Macrocrystals 100 MG Capsule PO ×2 (08:03→16:03)
[2024-02-21] MEDS: Menthol/Lanolin/Calamine/Znox 113 GM Tube 1 APPLIC TOPICAL (08:04)
[2024-02-21] MEDS: Nystatin Powder 15gm Bottle 1 APPLIC TOPICAL (08:04)
[2024-02-21] MEDS: Amantadine 100 MG Capsule PO (08:05)
[2024-02-21] MEDS: Senna/Docusate Sodium 1 Tablet 2 TABLET PO (08:05)
[2024-02-21] MEDS: Pantoprazole Sodium 40 MG Tablet PO (08:05)
[2024-02-21] MEDS: Fluconazole 100 MG Tablet PO (08:05)
[2024-02-21] MEDS: Sodium Chloride 0.65% 1 SPRAY SPRAY.BTL NASAL (08:06)
[2024-02-21 08:14] VITALS: BP 127/64; PULSE 62
--- NOTE | 2024-02-21 09:35 | CASEMGMT ---
Social Work SW met with patient at bedside to review discharge disposition. Patient anticipates on 02/21/2024 around 4PM to home with [facility] PT/OT/SN/PAVAN/BR[facility]O. SW completed discharge MDS. Patient completed BIM () and PhQ-2 (). SW received an email from the patient's daughter informing SW that she will be a little late to transport patient to home. DUGLAS notified RN. Patient and family thankful to staff support with patient care. Discharge: [facility] PT/OT/SN/PAVAN/BR[facility]O
[2024-02-21 16:00] VITALS: BP 123/62; PULSE 64; RESP 16; TEMP 36.7; O2SAT 98
[2024-02-21] MEDS: Tamsulosin HCl 0.4 MG Capsule PO (16:02)
== END 2024-02-21 16:30 | disposition home health service (06) | DRG 949 ==
PROVIDERS: Admitting Provider Family Medicine Geriatric Medicine; PCP Family Medicine; Visit Provider Family Medicine Geriatric Medicine
DX: Z48.815 Encounter for surgical aftercare following surgery on the digestive system (principal); K56.2 Volvulus; L76.32 Postprocedural hematoma of skin and subcutaneous tissue following other procedure; N39.0 Urinary tract infection, site not specified; G20.A1 Parkinson's disease without dyskinesia, without mention of fluctuations; I12.9 Hypertensive chronic kidney disease with stage 1 through stage 4 chronic kidney disease, or unspecified chronic kidney disease; B35.4 Tinea corporis; B95.62 Methicillin resistant Staphylococcus aureus infection as the cause of diseases classified elsewhere; Z93.3 Colostomy status; N18.2 Chronic kidney disease, stage 2 (mild); K21.9 Gastro-esophageal reflux disease without esophagitis; R31.0 Gross hematuria; N40.1 Benign prostatic hyperplasia with lower urinary tract symptoms; R33.8 Other retention of urine; Z79.899 Other long term (current) drug therapy
CPT/HCPCS: 36415; 74230; 80048; 81001; 83540; 85014; 85018; 85025; 87077; 87086; 87088; 87186; 92526; 92610; 92611; 97110; 97112; 97116; 97162; 97166; 97530; 97535; 97802; A4216

== ENCOUNTER 2024-05-19 13:15 | Outpatient (RCR) | payer MEDICARE, OTHER, SELFPAY ==
[2024-04-24 09:36] VITALS: BP 156/88; PULSE 74; RESP 18; TEMP 35.7; BMI 20.7
--- NOTE | 2024-04-24 10:38 | PCM.WC.HP ---
History of Present Illness Date of Service: 04/24/24 Chief Complaint: Dehiscent surgical abdominal wound History of Wound: This is a 78-year-old male who suffered a sigmoid volvulus with obstruction in November 2023. This condition necessitated an exploratory laparotomy with sigmoid colon resection with end colostomy, which was performed on December 15, 2023. The patient's incisional caitlyn were removed on the ninth postoperative day, and the patient was transferred to the Transitional Care Unit on December 24, 2023, for postoperative rehabilitation. The patient subsequently experienced an incisional dehiscence, which has been treated by means of daily Iodoform gauze packing. Approximately 6 to 8 weeks ago, the patient's surgeon, Dr. Kirkland, is said to have removed a retained surgical suture from the site of the incisional dehiscence. The patient presents at this time for evaluation and management of the residual surgical wound dehiscence. The patient lives alone, though he is assisted by his daughter who lives locally. He self manages his colostomy, which is functioning normally. 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 [facility] Medical History History of intestinal obstruction Wound dehiscence, surgical BPH (benign prostatic hyperplasia) Debility Hypertension CKD (chronic kidney disease), stage II Parkinson disease Home Medications ?Medication ?Instructions ?Recorded ?Last Taken ?Type amantadine HCl 100 mg capsule 100 mg PO DAILY hill 12/04/23 12/24/23 08:15 History food supplemt, lactose-reduced 120 ml PO 4X/DAY nutrition #237 mL 12/24/23 12/24/23 13:05 Rx 0.08 gram-1.5 kcal/mL oral liquid (Ensure Plus High Protein) pantoprazole 40 mg tablet,delayed 40 mg PO DAILY stomach acid 2 12/24/23 12/24/23 08:15 Rx release weeks #14 tabs carbidopa 25 mg-levodopa 100 mg 2 tab PO 0800 #0 tabs 01/16/24 Unknown Rx tablet carbidopa 25 mg-levodopa 100 mg 2 tab PO BID@1100,1600 #0 tabs 01/16/24 Unknown Rx tablet carbidopa ER 50 mg-levodopa 200 mg 1 tab PO QHS #0 tabs 01/16/24 Unknown Rx tablet,extended release carboxymethylcellulose sodium 0.5 1 drp ophthalmic (eye) Q6H PRN PRN 01/16/24 Unknown Rx % eye drops (Refresh Tears) DRY EYES #0 mL fluticasone propionate 50 1 spray NASAL BID #0 grams 01/16/24 Unknown Rx mcg/actuation nasal spray,suspension melatonin 10 mg sublingual tablet 5 mg (1/2 x 10 mg) PO QHS PRN 01/16/24 Unknown Rx Insomnia #0 tabs sennosides 8.6 mg-docusate sodium 2 tab PO BID #0 tabs 01/16/24 Unknown Rx 50 mg tablet (Stool Softener-Stimulant Laxative) sodium chloride 0.65 % nasal spray 1 spray NASAL BID #0 mL 01/16/24 Unknown Rx aerosol (Deep Sea Nasal) sodium chloride 0.65 % nasal spray 1 spray NASAL BID PRN PRN NASAL 01/16/24 Unknown Rx aerosol (Deep Sea Nasal) DRYNESS #0 mL fluconazole 100 mg tablet 100 mg PO DAILY 6 days #6 tabs 02/20/24 Unknown Rx hydrochlorothiazide 25 mg tablet 25 mg PO DAILY 04/24/24 Unknown History Allergy/AdvReac Type Severity Reaction Status Date / Time No Known Allergies Allergy Verified 12/13/23 11:57 Family History Mother Heart disease Father Heart disease Surgical History History of colostomy History of colectomy History of tonsillectomy and adenoidectomy Social History household members: none Smoking Status: Never smoker alcohol intake: never substance use type: does not use Vital Signs Vital Signs Vital Signs: 04/24/24 09:36 Temperature 96.2 F L Temperature Source Temporal Pulse Rate 74 Respiratory Rate 18 Blood Pressure 156/88 H Blood Pressure Mean 110 Blood Pressure Source Monitor Blood Pressure Position Semi-Fowlers Blood Pressure Location Left Arm Weight Weight: 145 lb Body Mass Index (BMI) 20.7 Physical Exam Const alert, oriented x3, no apparent distress, average body habitus, no limitations and well nourished Constitutional Narrative: The patient appears relatively weak and frail, though is conversant and appropriate. Tremors are noted, consistent with the patient's diagnosis of Parkinson's disease. General Appearance: cooperative, comfortable, well kempt and well developed Orientation / Consciousness: awake, oriented to person, oriented to place and oriented to time Exam Limitations: no limitations HEENT normocephalic and head/scalp atraumatic Head and Scalp: normal to inspection, normocephalic and atraumatic Face and Sinus: normal facial exam Nose: external nose normal External Ear: external ears normal Eyes EOMs intact bilaterally General Eye: normal appearance of both eyes Resp normal respiratory effort, normal air movement, no retractions, no use of accessory muscles and clear to auscultation bilaterally Effort and Inspection: able to speak in complete sentences and symmetric chest movement Cardio regular rate, regular rhythm, S1 normal heart sound and S2 normal heart sound Extremity no calf tenderness General Extremity: Negative for clubbing or cyanosis Skin Wound Narrative: The patient's abdomen is nondistended. A colostomy and its associated colostomy bag are noted on the left side of the abdomen. A vertical midline incision is noted, which is predominantly well-approximated and healing well. There is a small dehiscence near the superior pole of the midline incision, which appears generally pink and healthy in appearance. There is not appear to be any significant tunneling or undermining. There is no sign of infection or cellulitis. There is a small amount of bioburden. Dimensions are documented elsewhere. Neuro oriented x3, CN's II-XII intact bilaterally, moves all extremities and no focal motor deficits Sensorium / Orientation: awake, alert, oriented to person, oriented to place and oriented to time Psych Appearance: grossly normal and appropriate Attitude: calm Activity / Motor Behavior: appropriate eye contact Speech: normal speech Mood & Affect: euthymic mood Thought Process: normal thought process Thought Content: normal thought content Attention / Concentration: attention grossly intact Debridement Note Debridement Note Wound debrided: Surgical wound dehiscence of the abdomen Laterality: Not Applicable Type of Debridement: Excisional debridement Anesthesia Used: 5% Lidocaine Gel Depth: Down to and including healthy tissue and in the subcutaneous layer Percentage of wound debrided: 100 Instrument Used: 3mm curette Tissue Removed: Bioburden and nonviable tissue Severity: Fat Layer Exposed Amount of bleeding with debridement: Mild Bleeding Controlled with: Compression and gauze Patient tolerated procedure: Patient tolerated procedure well Post-Debridement Measurements and Additional Note: Post-Debridement Measurements/Treatment EDIS - Nurse 1 - General Ulcer Assessment Start: 04/24/24 09:36 Freq: Status: Active Protocol: JAK Activity Type Activity Date Activity User E-sign Co-sign Detail Recorded Client Recorded Date Recorded By Document 04/24/24 09:36 JF `wound 04/24/24 09:44 JF 04/24/24 09:36 WC - Today's Visit Information Type of service Initial Visit Arrival Mode Ambulatory Transfer Assistance None Patient Identification Verified (Name & Yes ) Patient Requires Transmission-Based No Precautions Height and Weight Height 5 ft 10 in Weight 145 lb Weight in Pounds 145.0 lbs Body Mass Index (BMI) 20.7 BMI Classification Normal BSA - Melanie 1.82 Vital Signs Temperature (97.8 F-99.1 F) 96.2 F L Temperature Source Temporal Pulse Rate (60-100) 74 Pulse Location Monitor Respiratory Rate (12-18) 18 Respiratory rate source Observation Blood Pressure (90/60-120/80) 156/88 H Blood Pressure Mean 110 Source Monitor Position Semi-Fowlers Blood Pressure Location Left Arm History Since Last Visit- (Skip if this is Patient's initial visit) Have you changed medications since your No last visit? Any new allergies or adverse reactions No Had a fall/change in ADL's that may No increase risk of falls Signs or symptoms of abuse and/or No neglect since last visit Have you been in the hospital since your No last visit? Has dressing in place as prescribed Yes Has compression in place as prescribed No Has offloadiing in place as prescribed No Experienced any changes in pain level or No management Pain Scale: 0-10 Numeric Is Patient Pain Free? Yes Communication Assessment Preferred language Naur[place] Driller And Reamer Required No Able to Read Yes Able to Write Yes Communication Tools None Caregiver Communication Skills No Impairment Impairment Right Hearing Abillity Normal Left Hearing Abillity Normal Visual Assistive Devices Glasses Teaching Assessment Preferences Verbal,Written, Demonstration Barriers to Learning None Readiness To Learn Good Willingness to Engage in Self Management Med Activies Readiness to Engage in Self Management Med Activities Anxiety Level Calm Cooperation Cooperative Perception Coherent Interest in Health Problem Asks Questions Does Patient Smoke tobacco or other No substances Smoking Status Never smoker Is Patient Diabetic No Functional Assessment Recent Decline in Ability to Perform Bathing Assistive Device With Patient Yes List Device(s) with Patient walker Culture/Protestant/Equine Pharmacology Technician Cultural/Protestant Needs that may affect No Treatment Plan Would you allow our hospital phosphoric acid operator to No meet you for the purpose of spiritual/ emotional support? Equine Pharmacology Technician to contact place of druze No Teaching: Wound Center *Welcome to the Wound Center -Person Taught Patient -Teaching Method Discussion, Demonstration -Response to teaching Verbalize understanding - Nurse 1 - General Ulcer Measurement Start: 04/24/24 09:36 Freq: Status: Active Protocol: Activity Type Activity Date Activity User E-sign Co-sign Detail Recorded Client Recorded Date Recorded By Document 04/24/24 09:36 JF `wound 04/24/24 09:44 JF 04/24/24 09:36 Wound Center Nurse 1 1. Mid ABD -Combined with other wound No -Current Size (cm) - Length 0.3 -Current Size (cm) - Width 0.3 -Current Size (cm) - Depth 0.1 -Total Square Cm 0.09 -Photo Taken Yes -Tunneling No -Undermining/Tunneling No -Circular Undermining No -Exudate Amt Small -Exudate Type Serosanguineous -Wound Margin Distinct, Outline Attached -Granulation Amt Medium (34-66%) -Granulation Quality Hyper- granulation, [place] -Slough/Fibrin Yes -Necrosis Amt Medium (34-66%) -Necrotic Tissue Type Adherent Slough -Structure Exposed N/A -Texture (Gita-wound Skin Appearance) Assessed, Scarring -Moisture (Gita-wound Skin Appearance) Assessed -Color (Gita-wound Skin Appearance) Assessed -Temperature (Gita-wound Skin No Abnormality Appearance) (Pt Warm) -Tenderness on Palpation (Gita-wound No Skin Appearance) -Ulcer Cleansing Rinsed/ Irrigated with Saline -Foul Odor after Cleansing No -Anesthetic Used 4% Lidocaine Solution - Nurse 2 - General Ulcer CM Notes Start: 04/24/24 09:36 Freq: Status: Active Protocol: Activity Type Activity Date Activity User E-sign Co-sign Detail Recorded Client Recorded Date Recorded By Document 04/24/24 09:54 JF `wound 04/24/24 10:00 JF 04/24/24 09:54 Wound Center Nurse 2 -Time 09:57 -Correct Patient Yes -Correct Side, Site, Position Yes -Correct Procedure Yes -Procedure Performed Yes -Type of Procedure Debridement -Clinical Debridement Subcutaneous -Tissue Removed Subcutaneous -Post Debridement (cm) - Length 0.4 -Post Debridement (cm) - Width 0.4 -Post Debridement (cm) - Depth 0.1 -Total Square (Post) (cm) 0.16 -Area of Debridement (cm) - Length 0.4 -Area of Debridement (cm) - Width 0.4 -Total Square (Area) (cm) 0.16 -Tunneling No -Undermining/Tunneling No -Circular Undermining No -Wound/Ulcer Outcome Not Healed -Ulcer Cleansing Rinsed/ Irrigated with Saline -Foul Odor after Cleansing No -Bioengineered Tissue No -Bleeding Controlled with Pressure -Offloading No -Debridement - Subq, 1st 20sq cm Yes Pain Scale: 0-10 Numeric Is Patient Pain Free? Yes - Nurse 3 - General Ulcer D/C NN Start: 04/24/24 09:36 Freq: Status: Active Protocol: Activity Type Activity Date Activity User E-sign Co-sign Detail Recorded Client Recorded Date Recorded By Document 04/24/24 10:00 `wound 04/24/24 10:01 04/24/24 10:00 Wound Care Center Nurse 3 1. Mid ABD -Ulcer Cleansing Rinsed/ Irrigated with Saline -Foul Odor after Cleansing No -Primary Dressing Applied C Hydrogel ($) -Primary Dressing Covered/Secured with Dry Gauze, Secured with Tape Pain Scale: 0-10 Numeric Is Patient Pain Free? Yes - Visit Discharge Discharge Condition Stable Ambulatory Status Ambulatory, Walker Transportation Private Auto Medication Reconcilliation completed & Yes provided to patient/care provider Clinical Summary of Care Provided Yes Charges/Coding Multi Select Codes Visit Charges Office Visit/Consults: 37101 OV L4 New 45 min Integumentary Integumentary CPT Codes: 05788 Mandi subq tissue 20 sq cm/< Assessment/Plan Assessment/Plan (1) Wound dehiscence, surgical: CODE(S): T81.31XA - Disruption of external operation (surgical) wound, not elsewhere classified, initial encounter QUALIFIERS: Encounter type: initial encounter Qualified Code(s): T81.31XA - Disruption of external operation (surgical) wound, not elsewhere classified, initial encounter (2) History of intestinal obstruction: CODE(S): Z87.19 - Personal history of other diseases of the digestive system (3) Debility: CODE(S): R53.81 - Other malaise (4) Parkinson disease: CODE(S): G20.A1 - Parkinson's disease without dyskinesia, without mention of fluctuations (5) Urinary retention: CODE(S): R33.9 - Retention of urine, unspecified (6) Hypertension: CODE(S): I10 - Essential (primary) hypertension (7) BPH (benign prostatic hyperplasia): CODE(S): N40.0 - Benign prostatic hyperplasia without lower urinary tract symptoms PLAN: Plan This is a 78-year-old male who underwent exploratory laparotomy with sigmoid resection and end colostomy on December 15, 2023. The patient presented with a surgical wound dehiscence, which has occurred 6 to 8 weeks prior to his presentation. The patient suffers from pre-existing medical conditions such as Parkinson's disease, hypertension, and chronic kidney disease (stage II). The patient has previously been under the care of his surgeon, Dr. Kirkland, and wound care has involved the use of Iodoform gauze packing. At this juncture, there is no noted depth to the dehiscent wound, as no undermining or tunneling is noted. We are to implement the use of collagen hydrogel topically on a daily basis. The patient and his daughter have been instructed in the appropriate means of application. It appears as though the patient is adept in the management of his colostomy, which is functioning well. He has been advised to take a well-balanced, nutritious diet. The patient is to return for reevaluation in approximately 10 days. The patient's questions, and those of his daughter, have been answered. Total time: 48 minutes
[2024-05-05 15:04] VITALS: BP 145/82; PULSE 70; RESP 18; TEMP 36; BMI 20.7
--- NOTE | 2024-05-05 17:38 | PCM.WC.HP ---
History of Present Illness Date of Service: 05/05/24 Chief Complaint: Dehiscent surgical abdominal wound History of Wound: This is a 78-year-old male who suffered a sigmoid volvulus with obstruction in November 2023. This condition necessitated an exploratory laparotomy with sigmoid colon resection with end colostomy, which was performed on December 15, 2023. The patient's incisional caitlyn were removed on the ninth postoperative day, and the patient was transferred to the Transitional Care Unit on December 24, 2023, for postoperative rehabilitation. The patient subsequently experienced an incisional dehiscence, which had been treated by means of daily Iodoform gauze packing. Approximately 6 to 8 weeks prior to presentation, the patient's surgeon, Dr. Kirkland, is said to have removed a retained surgical suture from the site of the incisional dehiscence. The patient presented at at our facility for evaluation and management of the residual surgical wound dehiscence. The patient lives alone, though he is assisted by his daughter who lives locally. He self manages his colostomy, which is functioning normally. 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 [facility] Medical History History of intestinal obstruction Wound dehiscence, surgical BPH (benign prostatic hyperplasia) Debility Hypertension CKD (chronic kidney disease), stage II Parkinson disease Home Medications ?Medication ?Instructions ?Recorded ?Last Taken ?Type amantadine HCl 100 mg capsule 100 mg PO DAILY hill 12/04/23 12/24/23 08:15 History food supplemt, lactose-reduced 120 ml PO 4X/DAY nutrition #237 mL 12/24/23 12/24/23 13:05 Rx 0.08 gram-1.5 kcal/mL oral liquid (Ensure Plus High Protein) pantoprazole 40 mg tablet,delayed 40 mg PO DAILY stomach acid 2 12/24/23 12/24/23 08:15 Rx release weeks #14 tabs carbidopa 25 mg-levodopa 100 mg 2 tab PO 0800 #0 tabs 01/16/24 Unknown Rx tablet carbidopa 25 mg-levodopa 100 mg 2 tab PO BID@1100,1600 #0 tabs 01/16/24 Unknown Rx tablet carbidopa ER 50 mg-levodopa 200 mg 1 tab PO QHS #0 tabs 01/16/24 Unknown Rx tablet,extended release carboxymethylcellulose sodium 0.5 1 drp ophthalmic (eye) Q6H PRN PRN 01/16/24 Unknown Rx % eye drops (Refresh Tears) DRY EYES #0 mL fluticasone propionate 50 1 spray NASAL BID #0 grams 01/16/24 Unknown Rx mcg/actuation nasal spray,suspension melatonin 10 mg sublingual tablet 5 mg (1/2 x 10 mg) PO QHS PRN 01/16/24 Unknown Rx Insomnia #0 tabs sennosides 8.6 mg-docusate sodium 2 tab PO BID #0 tabs 01/16/24 Unknown Rx 50 mg tablet (Stool Softener-Stimulant Laxative) sodium chloride 0.65 % nasal spray 1 spray NASAL BID #0 mL 01/16/24 Unknown Rx aerosol (Deep Sea Nasal) sodium chloride 0.65 % nasal spray 1 spray NASAL BID PRN PRN NASAL 01/16/24 Unknown Rx aerosol (Deep Sea Nasal) DRYNESS #0 mL fluconazole 100 mg tablet 100 mg PO DAILY 6 days #6 tabs 02/20/24 Unknown Rx hydrochlorothiazide 25 mg tablet 25 mg PO DAILY 04/24/24 Unknown History Allergy/AdvReac Type Severity Reaction Status Date / Time No Known Allergies Allergy Verified 12/13/23 11:57 Family History Mother Heart disease Father Heart disease Surgical History History of colostomy History of colectomy History of tonsillectomy and adenoidectomy Social History household members: none Smoking Status: Never smoker alcohol intake: never substance use type: does not use Vital Signs Vital Signs Vital Signs: 05/05/24 15:04 Temperature 96.8 F L Temperature Source Temporal Pulse Rate 70 Respiratory Rate 18 Blood Pressure 145/82 H Blood Pressure Mean 103 Blood Pressure Source Monitor Blood Pressure Position Semi-Fowlers Blood Pressure Location Left Arm Weight Weight: 145 lb Body Mass Index (BMI) 20.7 Physical Exam Const alert, oriented x3, no apparent distress, average body habitus, no limitations and well nourished Constitutional Narrative: The patient appears relatively weak and frail, though is conversant and appropriate. Tremors are noted, consistent with the patient's diagnosis of Parkinson's disease. General Appearance: cooperative, comfortable, well kempt and well developed Orientation / Consciousness: awake, oriented to person, oriented to place and oriented to time Exam Limitations: no limitations HEENT normocephalic and head/scalp atraumatic Head and Scalp: normal to inspection, normocephalic and atraumatic Face and Sinus: normal facial exam Nose: external nose normal External Ear: external ears normal Eyes EOMs intact bilaterally General Eye: normal appearance of both eyes Resp normal respiratory effort, normal air movement, no retractions, no use of accessory muscles and clear to auscultation bilaterally Effort and Inspection: able to speak in complete sentences and symmetric chest movement Cardio regular rate, regular rhythm, S1 normal heart sound and S2 normal heart sound Extremity no calf tenderness General Extremity: Negative for clubbing or cyanosis Skin Wound Narrative: The patient's abdomen is nondistended. A colostomy and its associated colostomy bag are noted on the left side of the abdomen. A vertical midline incision is noted, which is predominantly well-approximated and healing well. There is a small dehiscence near the superior pole of the midline incision, which appears generally pink and healthy in appearance. It is much smaller than at the patient's previous visit. There does not appear to be any tunneling or undermining. There is no sign of infection or cellulitis. There is a small amount of bioburden. Dimensions are documented elsewhere. Neuro oriented x3, CN's II-XII intact bilaterally, moves all extremities and no focal motor deficits Sensorium / Orientation: awake, alert, oriented to person, oriented to place and oriented to time Psych Appearance: grossly normal and appropriate Attitude: calm Activity / Motor Behavior: appropriate eye contact Speech: normal speech Mood & Affect: euthymic mood Thought Process: normal thought process Thought Content: normal thought content Attention / Concentration: attention grossly intact Debridement Note Debridement Note Wound debrided: Surgical wound dehiscence of the abdomen Laterality: Not Applicable Type of Debridement: Excisional debridement Anesthesia Used: 5% Lidocaine Gel Depth: Down to and including healthy tissue and in the subcutaneous layer Percentage of wound debrided: 100 Instrument Used: 3mm curette Tissue Removed: Bioburden and nonviable tissue Severity: Fat Layer Exposed Amount of bleeding with debridement: Mild Bleeding Controlled with: Compression and gauze Patient tolerated procedure: Patient tolerated procedure well Post-Debridement Measurements and Additional Note: Post-Debridement Measurements/Treatment - Nurse 1 - General Ulcer Assessment Start: 04/24/24 09:36 Freq: Status: Active Protocol: JAK Activity Type Activity Date Activity User E-sign Co-sign Detail Recorded Client Recorded Date Recorded By Document 04/24/24 09:36 JF `wound 04/24/24 09:44 JF Document 05/05/24 15:04 RB wound 05/05/24 15:06 RB 04/24/24 05/05/24 09:36 15:04 - Today's Visit Information Type of service Initial Visit Follow-up Visit (Physician/MEDICARE COMPLIANCE AUDITOR ) Arrival Mode Ambulatory Ambulatory Transfer Assistance None None Patient Identification Verified (Name & Yes Yes ) Patient Requires Transmission-Based No No Precautions Height and Weight Height 5 ft 10 in Weight 145 lb Weight in Pounds 145.0 lbs Body Mass Index (BMI) 20.7 20.7 BMI Classification Normal Normal BSA - Melanie 1.82 Vital Signs Temperature (97.8 F-99.1 F) 96.2 F L 96.8 F L Temperature Source Temporal Temporal Pulse Rate (60-100) 74 70 Pulse Location Monitor Monitor Respiratory Rate (12-18) 18 18 Respiratory rate source Observation Observation Blood Pressure (90/60-120/80) 156/88 H 145/82 H Blood Pressure Mean 110 103 Source Monitor Monitor Position Semi-Fowlers Semi-Fowlers Blood Pressure Location Left Arm Left Arm History Since Last Visit- (Skip if this is Patient's initial visit) Have you changed medications since your No No last visit? Any new allergies or adverse reactions No No Had a fall/change in ADL's that may No No increase risk of falls Signs or symptoms of abuse and/or No No neglect since last visit Have you been in the hospital since your No No last visit? Has dressing in place as prescribed Yes Yes Has compression in place as prescribed No No Has offloadiing in place as prescribed No No Experienced any changes in pain level or No No management Pain Scale: 0-10 Numeric Is Patient Pain Free? 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 Required No Able to Read Yes Able to Write Yes Communication Tools None Caregiver Communication Skills No Impairment Impairment Right Hearing Abillity Normal Left Hearing Abillity Normal Visual Assistive Devices Glasses Teaching Assessment Preferences Verbal,Written, Demonstration Barriers to Learning None Readiness To Learn Good Willingness to Engage in Self Management Med Activies Readiness to Engage in Self Management Med Activities Anxiety Level Calm Cooperation Cooperative Perception Coherent Interest in Health Problem Asks Questions Does Patient Smoke tobacco or other No substances Smoking Status Never smoker Is Patient Diabetic No Functional Assessment Recent Decline in Ability to Perform Bathing Assistive Device With Patient Yes List Device(s) with Patient walker Culture/Anabaptism/Corporate Planning Manager Cultural/Anabaptism Needs that may affect No Treatment Plan Would you allow our hospital wine steward/stewardess to No meet you for the purpose of spiritual/ emotional support? Corporate Planning Manager to contact place of congregation No Teaching: Wound Center *Welcome to the Wound Center -Person Taught Patient -Teaching Method Discussion, Demonstration -Response to teaching Verbalize understanding - Nurse 1 - General Ulcer Measurement Start: 04/24/24 09:36 Freq: Status: Active Protocol: Activity Type Activity Date Activity User E-sign Co-sign Detail Recorded Client Recorded Date Recorded By Document 04/24/24 09:36 JF `wound 04/24/24 09:44 JF Document 05/05/24 15:04 RB wound 05/05/24 15:06 RB 04/24/24 05/05/24 09:36 15:04 Wound Center Nurse 1 1. Mid ABD -Combined with other wound No No -Current Size (cm) - Length 0.3 0.1 -Current Size (cm) - Width 0.3 0.1 -Current Size (cm) - Depth 0.1 0.1 -Total Square Cm 0.09 0.01 -Photo Taken Yes -Tunneling No No -Undermining/Tunneling No No -Circular Undermining No No -Exudate Amt Small Medium -Exudate Type Serosanguineous Serous -Wound Margin Distinct, Distinct, Outline Outline Attached Attached -Granulation Amt Medium (34-66%) Medium (34-66%) -Granulation Quality Hyper- [place] granulation, [place] -Slough/Fibrin Yes Yes -Necrosis Amt Medium (34-66%) Medium (34-66%) -Necrotic Tissue Type Adherent Slough Adherent Slough -Structure Exposed N/A N/A -Texture (Gita-wound Skin Appearance) Assessed, Assessed, Scarring Scarring -Moisture (Gita-wound Skin Appearance) Assessed Assessed -Color (Gita-wound Skin Appearance) Assessed Assessed -Temperature (Gita-wound Skin No Abnormality No Abnormality Appearance) (Pt Warm) (Pt Warm) -Tenderness on Palpation (Gita-wound No No Skin Appearance) -Ulcer Cleansing Rinsed/ Wound Cleanser Irrigated with Saline -Foul Odor after Cleansing No No -Anesthetic Used 4% Lidocaine 5% Lidocaine Solution Gel EDIS - Nurse 2 - General Ulcer CM Notes Start: 04/24/24 09:36 Freq: Status: Active Protocol: Activity Type Activity Date Activity User E-sign Co-sign Detail Recorded Client Recorded Date Recorded By Document 04/24/24 09:54 JF `wound 04/24/24 10:00 JF Document 05/05/24 15:19 DS 1 05/05/24 15:22 DS 04/24/24 05/05/24 09:54 15:19 Wound Center Nurse 2 1. Mid ABD -Time 09:57 15:19 -Correct Patient Yes Yes -Correct Side, Site, Position Yes Yes -Correct Procedure Yes Yes -Procedure Performed Yes Yes -Type of Procedure Debridement Debridement -Clinical Debridement Subcutaneous Subcutaneous -Tissue Removed Subcutaneous Subcutaneous -Post Debridement (cm) - Length 0.4 0.4 -Post Debridement (cm) - Width 0.4 0.5 -Post Debridement (cm) - Depth 0.1 0.1 -Total Square (Post) (cm) 0.16 0.20 -Area of Debridement (cm) - Length 0.4 0.4 -Area of Debridement (cm) - Width 0.4 0.5 -Total Square (Area) (cm) 0.16 0.20 -Tunneling No No -Undermining/Tunneling No No -Circular Undermining No No -Wound/Ulcer Outcome Not Healed Not Healed -Ulcer Cleansing Rinsed/ Irrigated with Saline -Foul Odor after Cleansing No -Bioengineered Tissue No -Bleeding Controlled with Pressure Pressure -Treatment Response Procedure Tolerated Well -Offloading No -Debridement - Subq, 1st 20sq cm Yes Yes Pain Scale: 0-10 Numeric Is Patient Pain Free? Yes Yes EDIS - Nurse 3 - General Ulcer D/C NN Start: 04/24/24 09:36 Freq: Status: Active Protocol: Activity Type Activity Date Activity User E-sign Co-sign Detail Recorded Client Recorded Date Recorded By Document 04/24/24 10:00 JF `wound 04/24/24 10:01 JF Document 05/05/24 15:31 KW ; 05/05/24 15:32 KW 04/24/24 05/05/24 10:00 15:31 Wound Care Center Nurse 3 1. Mid ABD -Ulcer Cleansing Rinsed/ Irrigated with Saline -Foul Odor after Cleansing No -Primary Dressing Applied C Hydrogel ($) -Other Dressing HYDROGEL -Primary Dressing Covered/Secured with Dry Gauze, Dry Gauze, Secured with Secured with Tape Tape Pain Scale: 0-10 Numeric Is Patient Pain Free? Yes Yes WC - Visit Discharge Discharge Condition Stable Stable Ambulatory Status Ambulatory, Ambulatory Walker Transportation Private Auto Private Auto Medication Reconcilliation completed & Yes No provided to patient/care provider Clinical Summary of Care Provided Yes Yes Charges/Coding Procedures Integumentary [id number]: [id number] Mandi subq tissue 20 sq cm/< Assessment/Plan Assessment/Plan (1) Wound dehiscence, surgical: CODE(S): T81.31XA - Disruption of external operation (surgical) wound, not elsewhere classified, initial encounter QUALIFIERS: Encounter type: subsequent encounter Qualified Code(s): T81.31XD - Disruption of external operation (surgical) wound, not elsewhere classified, subsequent encounter (2) History of intestinal obstruction: CODE(S): Z87.19 - Personal history of other diseases of the digestive system (3) Debility: CODE(S): R53.81 - Other malaise (4) Parkinson disease: CODE(S): G20.A1 - Parkinson's disease without dyskinesia, without mention of fluctuations (5) Urinary retention: CODE(S): R33.9 - Retention of urine, unspecified (6) Hypertension: CODE(S): I10 - Essential (primary) hypertension (7) BPH (benign prostatic hyperplasia): CODE(S): N40.0 - Benign prostatic hyperplasia without lower urinary tract symptoms PLAN: Plan This is a 78-year-old male who underwent exploratory laparotomy with sigmoid resection and end colostomy on December 15, 2023. The patient presented with a surgical wound dehiscence, which occurred 6 to 8 weeks prior to his presentation. The patient suffers from pre-existing medical conditions such as Parkinson's disease, hypertension, and chronic kidney disease (stage II). The patient has previously been under the care of his surgeon, Dr. Kirkland, and wound care has involved the use of Iodoform gauze packing. At this juncture, there is no significant depth to the dehiscent wound, as no undermining or tunneling are noted. We are to continue the use of collagen hydrogel topically on a daily basis. The patient and his daughter have been instructed in the appropriate means of application. It appears as though the patient is adept in the management of his colostomy, which is functioning well. He has been advised to take a well-balanced, nutritious diet. The patient is to return for reevaluation in 2 weeks, at which time it is likely that the wound will be healed. The patient's questions, and those of his daughter, have been answered. Total time: 24 minutes
[2024-05-19 13:23] VITALS: BP 156/78; PULSE 71; RESP 18; TEMP 36.2; BMI 20.7
--- NOTE | 2024-05-20 11:33 | PCM.WC.HP ---
History of Present Illness Date of Service: 05/19/24 Chief Complaint: Dehiscent surgical abdominal wound History of Wound: This is a 78-year-old male who suffered a sigmoid volvulus with obstruction in November 2023. This condition necessitated an exploratory laparotomy with sigmoid colon resection with end colostomy, which was performed on December 15, 2023. The patient's incisional caitlyn were removed on the ninth postoperative day, and the patient was transferred to the Transitional Care Unit on December 24, 2023, for postoperative rehabilitation. The patient subsequently experienced an incisional dehiscence, which had been treated by means of daily Iodoform gauze packing. Approximately 6 to 8 weeks prior to presentation, the patient's surgeon, Dr. Kirkland, is said to have removed a retained surgical suture from the site of the incisional dehiscence. The patient presented at at our facility for evaluation and management of the residual surgical wound dehiscence. The patient lives alone, though he is assisted by his daughter who lives locally. He self manages his colostomy, which is functioning normally. 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 [facility] Medical History History of intestinal obstruction Wound dehiscence, surgical BPH (benign prostatic hyperplasia) Debility Hypertension CKD (chronic kidney disease), stage II Parkinson disease Home Medications ?Medication ?Instructions ?Recorded ?Last Taken ?Type amantadine HCl 100 mg capsule 100 mg PO DAILY hill 12/04/23 12/24/23 08:15 History food supplemt, lactose-reduced 120 ml PO 4X/DAY nutrition #237 mL 12/24/23 12/24/23 13:05 Rx 0.08 gram-1.5 kcal/mL oral liquid (Ensure Plus High Protein) pantoprazole 40 mg tablet,delayed 40 mg PO DAILY stomach acid 2 12/24/23 12/24/23 08:15 Rx release weeks #14 tabs carbidopa 25 mg-levodopa 100 mg 2 tab PO 0800 #0 tabs 01/16/24 Unknown Rx tablet carbidopa 25 mg-levodopa 100 mg 2 tab PO BID@1100,1600 #0 tabs 01/16/24 Unknown Rx tablet carbidopa ER 50 mg-levodopa 200 mg 1 tab PO QHS #0 tabs 01/16/24 Unknown Rx tablet,extended release carboxymethylcellulose sodium 0.5 1 drp ophthalmic (eye) Q6H PRN PRN 01/16/24 Unknown Rx % eye drops (Refresh Tears) DRY EYES #0 mL fluticasone propionate 50 1 spray NASAL BID #0 grams 01/16/24 Unknown Rx mcg/actuation nasal spray,suspension melatonin 10 mg sublingual tablet 5 mg (1/2 x 10 mg) PO QHS PRN 01/16/24 Unknown Rx Insomnia #0 tabs sennosides 8.6 mg-docusate sodium 2 tab PO BID #0 tabs 01/16/24 Unknown Rx 50 mg tablet (Stool Softener-Stimulant Laxative) sodium chloride 0.65 % nasal spray 1 spray NASAL BID #0 mL 01/16/24 Unknown Rx aerosol (Deep Sea Nasal) sodium chloride 0.65 % nasal spray 1 spray NASAL BID PRN PRN NASAL 01/16/24 Unknown Rx aerosol (Deep Sea Nasal) DRYNESS #0 mL fluconazole 100 mg tablet 100 mg PO DAILY 6 days #6 tabs 02/20/24 Unknown Rx hydrochlorothiazide 25 mg tablet 25 mg PO DAILY 04/24/24 Unknown History Allergy/AdvReac Type Severity Reaction Status Date / Time No Known Allergies Allergy Verified 12/13/23 11:57 Family History Mother Heart disease Father Heart disease Surgical History History of colostomy History of colectomy History of tonsillectomy and adenoidectomy Social History household members: none Smoking Status: Never smoker alcohol intake: never substance use type: does not use Vital Signs Vital Signs Vital Signs: 05/19/24 13:23 Temperature 97.1 F L Temperature Source Temporal Pulse Rate 71 Respiratory Rate 18 Blood Pressure 156/78 H Blood Pressure Mean 104 Blood Pressure Source Monitor Blood Pressure Position Semi-Fowlers Blood Pressure Location Left Arm Weight Weight: 145 lb Body Mass Index (BMI) 20.7 Physical Exam Const alert, oriented x3, no apparent distress, average body habitus, no limitations and well nourished Constitutional Narrative: The patient appears relatively weak and frail, though is conversant and appropriate. Tremors are noted, consistent with the patient's diagnosis of Parkinson's disease. General Appearance: cooperative, comfortable, well kempt and well developed Orientation / Consciousness: awake, oriented to person, oriented to place and oriented to time Exam Limitations: no limitations HEENT normocephalic and head/scalp atraumatic Head and Scalp: normal to inspection, normocephalic and atraumatic Face and Sinus: normal facial exam Nose: external nose normal External Ear: external ears normal Eyes EOMs intact bilaterally General Eye: normal appearance of both eyes Resp normal respiratory effort, normal air movement, no retractions, no use of accessory muscles and clear to auscultation bilaterally Effort and Inspection: able to speak in complete sentences and symmetric chest movement Cardio regular rate, regular rhythm, S1 normal heart sound and S2 normal heart sound Extremity no calf tenderness General Extremity: Negative for clubbing or cyanosis Skin Wound Narrative: The patient's abdomen is nondistended. A well-functioning colostomy and its associated colostomy bag are noted on the left side of the abdomen. A vertical midline incision is noted, which is predominantly well-approximated and healing well. There is a small dehiscence near the superior pole of the midline incision, which appears generally pink and healthy in appearance. It has become quite superficial. It is much smaller than at the patient's previous visit. There does not appear to be any tunneling or undermining. There is no sign of infection or cellulitis. There is a small amount of bioburden. Dimensions are documented elsewhere. Neuro oriented x3, CN's II-XII intact bilaterally, moves all extremities and no focal motor deficits Sensorium / Orientation: awake, alert, oriented to person, oriented to place and oriented to time Psych Appearance: grossly normal and appropriate Attitude: calm Activity / Motor Behavior: appropriate eye contact Speech: normal speech Mood & Affect: euthymic mood Thought Process: normal thought process Thought Content: normal thought content Attention / Concentration: attention grossly intact Debridement Note Debridement Note Wound debrided: Surgical wound dehiscence of the abdomen Laterality: Not Applicable Type of Debridement: Excisional debridement Anesthesia Used: 5% Lidocaine Gel Depth: Down to and including healthy tissue and in the subcutaneous layer Percentage of wound debrided: 100 Instrument Used: 3mm curette Tissue Removed: Bioburden and nonviable tissue Severity: Fat Layer Exposed Amount of bleeding with debridement: Mild Bleeding Controlled with: Compression and gauze Patient tolerated procedure: Patient tolerated procedure well Post-Debridement Measurements and Additional Note: Post-Debridement Measurements/Treatment - Nurse 1 - General Ulcer Assessment Start: 04/24/24 09:36 Freq: Status: Active Protocol: JAK Activity Type Activity Date Activity User E-sign Co-sign Detail Recorded Client Recorded Date Recorded By Document 04/24/24 09:36 JF `wound 04/24/24 09:44 JF Document 05/05/24 15:04 RB wound 05/05/24 15:06 RB Document 05/19/24 13:23 JF 0000 05/19/24 13:30 JF 04/24/24 05/05/24 05/19/24 09:36 15:04 13:23 - Today's Visit Information Type of service Initial Visit Follow-up Visit Follow-up Visit (Physician/CANE BURNER (Physician/CANE BURNER ) ) Arrival Mode Ambulatory Ambulatory Ambulatory Transfer Assistance None None Manual Accompanied by daughter Patient Identification Verified (Name & Yes Yes Yes ) Patient Requires Transmission-Based No No No Precautions Height and Weight Height 5 ft 10 in Weight 145 lb Weight in Pounds 145.0 lbs Body Mass Index (BMI) 20.7 20.7 20.7 BMI Classification Normal Normal Normal BSA - Melanie 1.82 Vital Signs Temperature (97.8 F-99.1 F) 96.2 F L 96.8 F L 97.1 F L Temperature Source Temporal Temporal Temporal Pulse Rate (60-100) 74 70 71 Pulse Location Monitor Monitor Monitor Respiratory Rate (12-18) 18 18 18 Respiratory rate source Observation Observation Observation Blood Pressure (90/60-120/80) 156/88 H 145/82 H 156/78 H Blood Pressure Mean 110 103 104 Source Monitor Monitor Monitor Position Semi-Fowlers Semi-Fowlers Semi-Fowlers Blood Pressure Location Left Arm Left Arm Left Arm History Since Last Visit- (Skip if this is Patient's initial visit) Have you changed medications since your No No No last visit? Any new allergies or adverse reactions No No No Had a fall/change in ADL's that may No No No increase risk of falls Signs or symptoms of abuse and/or No No No neglect since last visit Have you been in the hospital since your No No No last visit? Has dressing in place as prescribed Yes Yes Yes Has compression in place as prescribed No No N/A Has offloadiing in place as prescribed No No N/A Experienced any changes in pain level or No No No management Left Footwear Regular Shoe Right Footwear Regular Shoe Pain Scale: 0-10 Numeric Is Patient Pain Free? Yes Yes Yes Communication Assessment Preferred language Lao Roving Sizer Required No Able to Read Yes Able to Write Yes Communication Tools None Caregiver Communication Skills No Impairment Impairment Right Hearing Abillity Normal Left Hearing Abillity Normal Visual Assistive Devices Glasses Teaching Assessment Preferences Verbal,Written, Demonstration Barriers to Learning None Readiness To Learn Good Willingness to Engage in Self Management Med Activies Readiness to Engage in Self Management Med Activities Anxiety Level Calm Cooperation Cooperative Perception Coherent Interest in Health Problem Asks Questions Does Patient Smoke tobacco or other No substances Smoking Status Never smoker Is Patient Diabetic No Functional Assessment Recent Decline in Ability to Perform Bathing Assistive Device With Patient Yes List Device(s) with Patient walker 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 Blending Plant Operator to contact place of latter-day No Teaching: Wound Center *Welcome to the Wound Center -Person Taught Patient -Teaching Method Discussion, Demonstration -Response to teaching Verbalize understanding WC - Nurse 1 - General Ulcer Measurement Start: 04/24/24 09:36 Freq: Status: Active Protocol: Activity Type Activity Date Activity User E-sign Co-sign Detail Recorded Client Recorded Date Recorded By Document 04/24/24 09:36 JF `wound 04/24/24 09:44 JF Document 05/05/24 15:04 RB wound 05/05/24 15:06 RB Document 05/19/24 13:23 JF 0000 05/19/24 13:30 JF 04/24/24 05/05/24 05/19/24 09:36 15:04 13:23 Wound Center Nurse 1 1. Mid ABD -Combined with other wound No No No -Current Size (cm) - Length 0.3 0.1 0.1 -Current Size (cm) - Width 0.3 0.1 0.1 -Current Size (cm) - Depth 0.1 0.1 0.1 -Total Square Cm 0.09 0.01 0.01 -Photo Taken Yes No -Epithelialization Large 67-100% -Tunneling No No -Undermining/Tunneling No No No -Circular Undermining No No No -Exudate Amt Small Medium None Present -Exudate Type Serosanguineous Serous -Wound Margin Distinct, Distinct, Flat & Intact Outline Outline Attached Attached -Granulation Amt Medium (34-66%) Medium (34-66%) Large (67-100%) -Granulation Quality Hyper- [place] Red granulation, [place] -Slough/Fibrin Yes Yes Yes -Necrosis Amt Medium (34-66%) Medium (34-66%) Small (1-33%) -Necrotic Tissue Type Adherent Slough Adherent Slough Adherent Slough -Structure Exposed N/A N/A N/A -Texture (Gita-wound Skin Appearance) Assessed, Assessed, Assessed, Scarring Scarring Scarring -Moisture (Gita-wound Skin Appearance) Assessed Assessed Assessed,Dry/ Scaly -Color (Gita-wound Skin Appearance) Assessed Assessed Assessed -Temperature (Gita-wound Skin No Abnormality No Abnormality No Abnormality Appearance) (Pt Warm) (Pt Warm) (Pt Warm) -Tenderness on Palpation (Gita-wound No No No Skin Appearance) -Ulcer Cleansing Rinsed/ Wound Cleanser Rinsed/ Irrigated with Irrigated with Saline Saline -Foul Odor after Cleansing No No No -Anesthetic Used 4% Lidocaine 5% Lidocaine Solution Gel Lower Limb Edema Present NA WC - Nurse 2 - General Ulcer CM Notes Start: 04/24/24 09:36 Freq: Status: Active Protocol: Activity Type Activity Date Activity User E-sign Co-sign Detail Recorded Client Recorded Date Recorded By Document 04/24/24 09:54 JF `wound 04/24/24 10:00 JF Document 05/05/24 15:19 DS 1 05/05/24 15:22 DS Document 05/19/24 13:36 JF 0000 05/19/24 13:40 JF 04/24/24 05/05/24 05/19/24 09:54 15:19 13:36 Wound Center Nurse 2 1. Mid ABD -Time 09:57 15:19 13:37 -Correct Patient Yes Yes Yes -Correct Side, Site, Position Yes Yes Yes -Correct Procedure Yes Yes Yes -Procedure Performed Yes Yes Yes -Type of Procedure Debridement Debridement Debridement -Clinical Debridement Subcutaneous Subcutaneous Subcutaneous -Tissue Removed Subcutaneous Subcutaneous Subcutaneous -Post Debridement (cm) - Length 0.4 0.4 0.8 -Post Debridement (cm) - Width 0.4 0.5 1.0 -Post Debridement (cm) - Depth 0.1 0.1 0.1 -Total Square (Post) (cm) 0.16 0.20 0.80 -Area of Debridement (cm) - Length 0.4 0.4 0.8 -Area of Debridement (cm) - Width 0.4 0.5 1.0 -Total Square (Area) (cm) 0.16 0.20 0.80 -Tunneling No No No -Undermining/Tunneling No No No -Circular Undermining No No No -Wound/Ulcer Outcome Not Healed Not Healed Not Healed -Ulcer Cleansing Rinsed/ Rinsed/ Irrigated with Irrigated with Saline Saline -Foul Odor after Cleansing No No -Bioengineered Tissue No No -Bleeding Controlled with Pressure Pressure Pressure -Treatment Response Procedure Procedure Tolerated Well Tolerated Well -Offloading No No -Debridement - Subq, 1st 20sq cm Yes Yes Yes Pain Scale: 0-10 Numeric Is Patient Pain Free? Yes Yes Yes - Nurse 3 - General Ulcer D/C NN Start: 04/24/24 09:36 Freq: Status: Active Protocol: Activity Type Activity Date Activity User E-sign Co-sign Detail Recorded Client Recorded Date Recorded By Document 04/24/24 10:00 JF `wound 04/24/24 10:01 JF Document 05/05/24 15:31 KW ; 05/05/24 15:32 KW Document 05/19/24 13:54 KW gj 05/19/24 13:54 KW 04/24/24 05/05/24 05/19/24 10:00 15:31 13:54 Wound Care Center Nurse 3 1. Mid ABD -Ulcer Cleansing Rinsed/ Irrigated with Saline -Foul Odor after Cleansing No -Primary Dressing Applied C Hydrogel ($) NonAdherent Contact Layer -Other Dressing HYDROGEL HYDROGEL -Primary Dressing Covered/Secured with Dry Gauze, Dry Gauze, Dry Gauze, Secured with Secured with Secured with Tape Tape Tape Pain Scale: 0-10 Numeric Is Patient Pain Free? Yes Yes Yes - Visit Discharge Discharge Condition Stable Stable Ambulatory Status Ambulatory, Ambulatory Walker Transportation Private Auto Private Auto Medication Reconcilliation completed & Yes No provided to patient/care provider Clinical Summary of Care Provided Yes Yes Charges/Coding Procedures Integumentary [id number]: [id number] Mandi subq tissue 20 sq cm/< Assessment/Plan Assessment/Plan (1) Wound dehiscence, surgical: CODE(S): T81.31XA - Disruption of external operation (surgical) wound, not elsewhere classified, initial encounter QUALIFIERS: Encounter type: subsequent encounter Qualified Code(s): T81.31XD - Disruption of external operation (surgical) wound, not elsewhere classified, subsequent encounter (2) History of intestinal obstruction: CODE(S): Z87.19 - Personal history of other diseases of the digestive system (3) Debility: CODE(S): R53.81 - Other malaise (4) Parkinson disease: CODE(S): G20.A1 - Parkinson's disease without dyskinesia, without mention of fluctuations (5) Urinary retention: CODE(S): R33.9 - Retention of urine, unspecified (6) Hypertension: CODE(S): I10 - Essential (primary) hypertension (7) BPH (benign prostatic hyperplasia): CODE(S): N40.0 - Benign prostatic hyperplasia without lower urinary tract symptoms PLAN: Plan This is a 78-year-old male who underwent exploratory laparotomy with sigmoid resection and end colostomy on December 15, 2023. The patient presented with a surgical wound dehiscence, which occurred 6 to 8 weeks prior to his presentation. The patient suffers from pre-existing medical conditions such as Parkinson's disease, hypertension, and chronic kidney disease (stage II). The patient has previously been under the care of his surgeon, Dr. Kirkland, and wound care has involved the use of Iodoform gauze packing. At this juncture, there is no significant depth to the dehiscent wound, as no undermining or tunneling are noted. We are to continue the use of collagen hydrogel topically on a daily basis. The patient and his daughter have been instructed in the appropriate means of application. It appears as though the patient is adept in the management of his colostomy, which is functioning well. He has been advised to take a well-balanced, nutritious diet. The patient is to return for reevaluation in 2 weeks. The patient's wound has shown progressive improvement, which is expected to continue. The patient's questions, and those of his daughter, have been answered. Total time: 22 minutes
== END 2024-05-20 23:59 | disposition home or self-care (01) ==
LOC: WC 13:15
PROVIDERS: PCP Family Medicine; Referring Provider Family Medicine; Visit Provider Surgery
DX: T81.31XA Disruption of external operation (surgical) wound, not elsewhere classified, initial encounter (principal); Z93.3 Colostomy status; G20.A1 Parkinson's disease without dyskinesia, without mention of fluctuations; R53.81 Other malaise; R33.8 Other retention of urine; I12.9 Hypertensive chronic kidney disease with stage 1 through stage 4 chronic kidney disease, or unspecified chronic kidney disease; N40.1 Benign prostatic hyperplasia with lower urinary tract symptoms; Y84.9 Medical procedure, unspecified as the cause of abnormal reaction of the patient, or of later complication, without mention of misadventure at the time of the procedure; N18.2 Chronic kidney disease, stage 2 (mild); Z79.899 Other long term (current) drug therapy; Z79.51 Long term (current) use of inhaled steroids
CPT/HCPCS: 11042; 99213; G0463

== ENCOUNTER 2024-06-16 13:15 | Outpatient (RCR) | payer MEDICARE, OTHER, SELFPAY ==
[2024-05-21 00:08] VITALS: BP 156/78; PULSE 71; RESP 18; TEMP 36.2; BMI 20.7
[2024-06-09 13:20] VITALS: BMI 20.7
--- NOTE | 2024-06-09 13:45 | HP.PCM_ITS ---
History of Present Illness Date of Service: 06/09/24 Chief Complaint: Dehiscent surgical abdominal wound History of Wound: This is a 78-year-old male who suffered a sigmoid volvulus with obstruction in November 2023. This condition necessitated an exploratory laparotomy with sigmoid colon resection with end colostomy, which was performed on December 15, 2023. The patient's incisional caitlyn were removed on the ninth postoperative day, and the patient was transferred to the Transitional Care Unit on December 24, 2023, for postoperative rehabilitation. The patient subsequently experienced an incisional dehiscence, which had been treated by means of daily Iodoform gauze packing. Approximately 6 to 8 weeks prior to presentation, the patient's surgeon, Dr. Kirkland, is said to have removed a retained surgical suture from the site of the incisional dehiscence. The patient presented at at our facility for evaluation and management of the residual surgical wound dehiscence. The patient lives alone, though he is assisted by his daughter who lives locally. He self manages his colostomy, which is functioning normally. 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 [facility] Medical History History of intestinal obstruction Wound dehiscence, surgical BPH (benign prostatic hyperplasia) Debility Hypertension CKD (chronic kidney disease), stage II Parkinson disease Home Medications ?Medication ?Instructions ?Recorded ?Last Taken ?Type amantadine HCl 100 mg capsule 100 mg PO DAILY hill 12/04/23 12/24/23 08:15 History food supplemt, lactose-reduced 120 ml PO 4X/DAY nutrition #237 mL 12/24/23 12/24/23 13:05 Rx 0.08 gram-1.5 kcal/mL oral liquid (Ensure Plus High Protein) pantoprazole 40 mg tablet,delayed 40 mg PO DAILY stomach acid 2 12/24/23 12/24/23 08:15 Rx release weeks #14 tabs carbidopa 25 mg-levodopa 100 mg 2 tab PO 0800 #0 tabs 01/16/24 Unknown Rx tablet carbidopa 25 mg-levodopa 100 mg 2 tab PO BID@1100,1600 #0 tabs 01/16/24 Unknown Rx tablet carbidopa ER 50 mg-levodopa 200 mg 1 tab PO QHS #0 tabs 01/16/24 Unknown Rx tablet,extended release carboxymethylcellulose sodium 0.5 1 drp ophthalmic (eye) Q6H PRN PRN 01/16/24 Unknown Rx % eye drops (Refresh Tears) DRY EYES #0 mL fluticasone propionate 50 1 spray NASAL BID #0 grams 01/16/24 Unknown Rx mcg/actuation nasal spray,suspension melatonin 10 mg sublingual tablet 5 mg (1/2 x 10 mg) PO QHS PRN 01/16/24 Unknown Rx Insomnia #0 tabs sennosides 8.6 mg-docusate sodium 2 tab PO BID #0 tabs 01/16/24 Unknown Rx 50 mg tablet (Stool Softener-Stimulant Laxative) sodium chloride 0.65 % nasal spray 1 spray NASAL BID #0 mL 01/16/24 Unknown Rx aerosol (Deep Sea Nasal) sodium chloride 0.65 % nasal spray 1 spray NASAL BID PRN PRN NASAL 01/16/24 Unknown Rx aerosol (Deep Sea Nasal) DRYNESS #0 mL fluconazole 100 mg tablet 100 mg PO DAILY 6 days #6 tabs 02/20/24 Unknown Rx hydrochlorothiazide 25 mg tablet 25 mg PO DAILY 04/24/24 Unknown History Allergy/AdvReac Type Severity Reaction Status Date / Time No Known Allergies Allergy Verified 12/13/23 11:57 Family History Mother Heart disease Father Heart disease Surgical History History of colostomy History of colectomy History of tonsillectomy and adenoidectomy Social History household members: none Smoking Status: Never smoker alcohol intake: never substance use type: does not use Vital Signs Vital Signs Vital Signs: Weight Weight: 145 lb Body Mass Index (BMI) 20.7 Physical Exam Const alert, oriented x3, no apparent distress, average body habitus, no limitations and well nourished Constitutional Narrative: The patient appears relatively weak and frail, though is conversant and appropriate. Tremors are noted, consistent with the patient's diagnosis of Parkinson's disease. General Appearance: cooperative, comfortable, well kempt and well developed Orientation / Consciousness: awake, oriented to person, oriented to place and oriented to time Exam Limitations: no limitations HEENT normocephalic and head/scalp atraumatic Head and Scalp: normal to inspection, normocephalic and atraumatic Face and Sinus: normal facial exam Nose: external nose normal External Ear: external ears normal Eyes EOMs intact bilaterally General Eye: normal appearance of both eyes Resp normal respiratory effort, normal air movement, no retractions, no use of accessory muscles and clear to auscultation bilaterally Effort and Inspection: able to speak in complete sentences and symmetric chest movement Cardio regular rate, regular rhythm, S1 normal heart sound and S2 normal heart sound Extremity no calf tenderness General Extremity: Negative for clubbing or cyanosis Skin Wound Narrative: The patient's abdomen is nondistended. A well-functioning colostomy and its associated colostomy bag are noted on the left side of the abdomen. A vertical midline incision is noted, which is predominantly well-approximated and healing well. There is a small dehiscence near the superior pole of the midline incision, which appears generally pink and healthy in appearance. It has become quite superficial. There has not been much change in the size of the wound since the patient was last seen and evaluated. There does not appear to be any tunneling or undermining. There is no sign of infection or cellulitis. There is a small amount of bioburden. Dimensions are documented elsewhere. Neuro oriented x3, CN's II-XII intact bilaterally, moves all extremities and no focal motor deficits Sensorium / Orientation: awake, alert, oriented to person, oriented to place and oriented to time Psych Appearance: grossly normal and appropriate Attitude: calm Activity / Motor Behavior: appropriate eye contact Speech: normal speech Mood & Affect: euthymic mood Thought Process: normal thought process Thought Content: normal thought content Attention / Concentration: attention grossly intact Debridement Note Debridement Note Wound debrided: Surgical wound dehiscence of the abdomen Laterality: Not Applicable Type of Debridement: Excisional debridement Anesthesia Used: 5% Lidocaine Gel Depth: Down to and including healthy tissue and in the subcutaneous layer Percentage of wound debrided: 100 Instrument Used: 3mm curette Tissue Removed: Bioburden and nonviable tissue Severity: Fat Layer Exposed Amount of bleeding with debridement: Mild Bleeding Controlled with: Compression and gauze Patient tolerated procedure: Patient tolerated procedure well Post-Debridement Measurements and Additional Note: Post-Debridement Measurements/Treatment WC - Nurse 1 - General Ulcer Assessment Start: 06/09/24 13:20 Freq: Status: Active Protocol: JAK Activity Type Activity Date Activity User E-sign Co-sign Detail Recorded Client Recorded Date Recorded By Document 06/09/24 13:20 SHELDON [id number] 06/09/24 13:20 06/09/24 13:20 Height and Weight Body Mass Index (BMI) 20.7 BMI Classification Normal Pain Scale: 0-10 Numeric Is Patient Pain Free? No EDIS - Nurse 1 - General Ulcer Measurement Start: 06/09/24 13:20 Freq: Status: Active Protocol: Activity Type Activity Date Activity User E-sign Co-sign Detail Recorded Client Recorded Date Recorded By Document 06/09/24 13:20 SHELDON [id number] 06/09/24 13:20 06/09/24 13:20 Wound Center Nurse 1 1. Mid ABD -Current Size (cm) - Length 0.8 -Current Size (cm) - Width 0.4 -Current Size (cm) - Depth 0.1 -Total Square Cm 0.32 -Exudate Amt Small -Exudate Type Serosanguineous -Wound Margin Distinct, Outline Attached -Granulation Amt Large (67-100%) -Granulation Quality Red -Texture (Gita-wound Skin Appearance) Assessed -Moisture (Gita-wound Skin Appearance) Assessed -Color (Gita-wound Skin Appearance) Assessed -Temperature (Gita-wound Skin No Abnormality Appearance) (Pt Warm) -Tenderness on Palpation (Gita-wound No Skin Appearance) -Ulcer Cleansing Rinsed/ Irrigated with Saline -Anesthetic Used 5% Lidocaine Gel WC - Nurse 2 - General Ulcer CM Notes Start: 06/09/24 13:20 Freq: Status: Active Protocol: Activity Type Activity Date Activity User E-sign Co-sign Detail Recorded Client Recorded Date Recorded By Document 06/09/24 13:37 SHELDON [id number] 06/09/24 13:38 06/09/24 13:37 Wound Center Nurse 2 -Time 13:38 -Correct Patient Yes -Correct Side, Site, Position Yes -Correct Procedure Yes -Procedure Performed Yes -Type of Procedure Debridement -Clinical Debridement Subcutaneous -Tissue Removed Subcutaneous -Post Debridement (cm) - Length 1.0 -Post Debridement (cm) - Width 0.6 -Post Debridement (cm) - Depth 0.1 -Total Square (Post) (cm) 0.60 -Area of Debridement (cm) - Length 1.0 -Area of Debridement (cm) - Width 0.6 -Total Square (Area) (cm) 0.60 -Tunneling No -Undermining/Tunneling No -Circular Undermining No -Wound/Ulcer Outcome Not Healed -Ulcer Cleansing Rinsed/ Irrigated with Saline -Foul Odor after Cleansing No -Bioengineered Tissue No -Bleeding Controlled with Pressure -Treatment Response Procedure Tolerated Well -Offloading No -Debridement - Subq, 1st 20sq cm Yes Pain Scale: 0-10 Numeric Is Patient Pain Free? Yes - Nurse 3 - General Ulcer D/C NN Start: 06/09/24 13:20 Freq: Status: Active Protocol: Activity Type Activity Date Activity User E-sign Co-sign Detail Recorded Client Recorded Date Recorded By Document 06/09/24 13:38 SHELDON [id number] 06/09/24 13:39 06/09/24 13:38 Wound Care Center Nurse 3 1. Mid ABD -Ulcer Cleansing Rinsed/ Irrigated with Saline -Foul Odor after Cleansing No -Primary Dressing Applied Promogran Kendra Matter -Primary Dressing Covered/Secured with Dry Gauze, Secured with Tape -Promogran Kendra Matter 1 Pain Scale: 0-10 Numeric Is Patient Pain Free? Yes WC - Visit Discharge Discharge Condition Stable Ambulatory Status Ambulatory Transportation Private Auto Medication Reconcilliation completed & Yes provided to patient/care provider Clinical Summary of Care Provided Yes Charges/Coding Procedures Integumentary [id number]: [id number] Mandi subq tissue 20 sq cm/< Assessment/Plan Assessment/Plan (1) Wound dehiscence, surgical: CODE(S): T81.31XA - Disruption of external operation (surgical) wound, not elsewhere classified, initial encounter QUALIFIERS: Encounter type: subsequent encounter Qualified Code(s): T81.31XD - Disruption of external operation (surgical) wound, not elsewhere classified, subsequent encounter (2) History of intestinal obstruction: CODE(S): Z87.19 - Personal history of other diseases of the digestive system (3) Debility: CODE(S): R53.81 - Other malaise (4) Parkinson disease: CODE(S): G20.A1 - Parkinson's disease without dyskinesia, without mention of fluctuations (5) Urinary retention: CODE(S): R33.9 - Retention of urine, unspecified (6) Hypertension: CODE(S): I10 - Essential (primary) hypertension (7) BPH (benign prostatic hyperplasia): CODE(S): N40.0 - Benign prostatic hyperplasia without lower urinary tract symptoms PLAN: Plan This is a 78-year-old male who underwent exploratory laparotomy with sigmoid resection and end colostomy on December 15, 2023. The patient presented with a surgical wound dehiscence, which occurred 6 to 8 weeks prior to his presentation. The patient suffers from pre-existing medical conditions such as Parkinson's disease, hypertension, and chronic kidney disease (stage II). The patient has previously been under the care of his surgeon, Dr. Kirkland, and wound care has involved the use of Iodoform gauze packing. At this juncture, there is no significant depth to the dehiscent wound, as no undermining or tunneling are noted. We are to transition to the use of Kendra, which will be applied topic ally on a daily basis. The patient and his daughter have been instructed in the appropriate means of application. It appears as though the patient is adept in the management of his colostomy, which is functioning well. He has been advised to take a well-balanced, nutritious diet. The patient is to return for reevaluation in 1 week. The patient's questions have been answered. Total time: 24 minutes
[2024-06-16 13:17] VITALS: BP 144/78; PULSE 74; RESP 18; TEMP 36.5; BMI 20.7
--- NOTE | 2024-06-16 13:45 | HP.PCM_ITS ---
History of Present Illness Date of Service: 06/16/24 Chief Complaint: Dehiscent surgical abdominal wound History of Wound: This is a 78-year-old male who suffered a sigmoid volvulus with obstruction in November 2023. This condition necessitated an exploratory laparotomy with sigmoid colon resection with end colostomy, which was performed on December 15, 2023. The patient's incisional caitlyn were removed on the ninth postoperative day, and the patient was transferred to the Transitional Care Unit on December 24, 2023, for postoperative rehabilitation. The patient subsequently experienced an incisional dehiscence, which had been treated by means of daily Iodoform gauze packing. Approximately 6 to 8 weeks prior to presentation, the patient's surgeon, Dr. Kirkland, is said to have removed a retained surgical suture from the site of the incisional dehiscence. The patient presented at at our facility for evaluation and management of the residual surgical wound dehiscence. The patient lives alone, though he is assisted by his daughter who lives locally. He self manages his colostomy, which is functioning normally. 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 [facility] Medical History History of intestinal obstruction Wound dehiscence, surgical BPH (benign prostatic hyperplasia) Debility Hypertension CKD (chronic kidney disease), stage II Parkinson disease Home Medications ?Medication ?Instructions ?Recorded ?Last Taken ?Type amantadine HCl 100 mg capsule 100 mg PO DAILY hill 12/04/23 12/24/23 08:15 History food supplemt, lactose-reduced 120 ml PO 4X/DAY nutrition #237 mL 12/24/23 12/24/23 13:05 Rx 0.08 gram-1.5 kcal/mL oral liquid (Ensure Plus High Protein) pantoprazole 40 mg tablet,delayed 40 mg PO DAILY stomach acid 2 12/24/23 12/24/23 08:15 Rx release weeks #14 tabs carbidopa 25 mg-levodopa 100 mg 2 tab PO 0800 #0 tabs 01/16/24 Unknown Rx tablet carbidopa 25 mg-levodopa 100 mg 2 tab PO BID@1100,1600 #0 tabs 01/16/24 Unknown Rx tablet carbidopa ER 50 mg-levodopa 200 mg 1 tab PO QHS #0 tabs 01/16/24 Unknown Rx tablet,extended release carboxymethylcellulose sodium 0.5 1 drp ophthalmic (eye) Q6H PRN PRN 01/16/24 Unknown Rx % eye drops (Refresh Tears) DRY EYES #0 mL fluticasone propionate 50 1 spray NASAL BID #0 grams 01/16/24 Unknown Rx mcg/actuation nasal spray,suspension melatonin 10 mg sublingual tablet 5 mg (1/2 x 10 mg) PO QHS PRN 01/16/24 Unknown Rx Insomnia #0 tabs sennosides 8.6 mg-docusate sodium 2 tab PO BID #0 tabs 01/16/24 Unknown Rx 50 mg tablet (Stool Softener-Stimulant Laxative) sodium chloride 0.65 % nasal spray 1 spray NASAL BID #0 mL 01/16/24 Unknown Rx aerosol (Deep Sea Nasal) sodium chloride 0.65 % nasal spray 1 spray NASAL BID PRN PRN NASAL 01/16/24 Unknown Rx aerosol (Deep Sea Nasal) DRYNESS #0 mL fluconazole 100 mg tablet 100 mg PO DAILY 6 days #6 tabs 02/20/24 Unknown Rx hydrochlorothiazide 25 mg tablet 25 mg PO DAILY 04/24/24 Unknown History Allergy/AdvReac Type Severity Reaction Status Date / Time No Known Allergies Allergy Verified 12/13/23 11:57 Family History Mother Heart disease Father Heart disease Surgical History History of intestinal surgery History of colostomy History of colectomy History of tonsillectomy and adenoidectomy Social History household members: none Smoking Status: Never smoker alcohol intake: never substance use type: does not use Vital Signs Vital Signs Vital Signs: 06/16/24 13:17 Temperature 97.7 F L Temperature Source Temporal Pulse Rate 74 Respiratory Rate 18 Blood Pressure 144/78 H Blood Pressure Mean 100 Blood Pressure Source Monitor Blood Pressure Position Semi-Fowlers Blood Pressure Location Left Arm Oxygen Delivery Method Room Air Weight Weight: 145 lb Body Mass Index (BMI) 20.7 Physical Exam Const alert, oriented x3, no apparent distress, average body habitus, no limitations and well nourished Constitutional Narrative: The patient appears relatively weak and frail, though is conversant and appropriate. Tremors are noted, consistent with the patient's diagnosis of Parkinson's disease. General Appearance: cooperative, comfortable, well kempt and well developed Orientation / Consciousness: awake, oriented to person, oriented to place and oriented to time Exam Limitations: no limitations HEENT normocephalic and head/scalp atraumatic Head and Scalp: normal to inspection, normocephalic and atraumatic Face and Sinus: normal facial exam Nose: external nose normal External Ear: external ears normal Eyes EOMs intact bilaterally General Eye: normal appearance of both eyes Resp normal respiratory effort, normal air movement, no retractions, no use of accessory muscles and clear to auscultation bilaterally Effort and Inspection: able to speak in complete sentences and symmetric chest movement Cardio regular rate, regular rhythm, S1 normal heart sound and S2 normal heart sound Extremity no calf tenderness General Extremity: Negative for clubbing or cyanosis Skin Wound Narrative: The patient's abdomen is nondistended. A well-functioning colostomy and its associated colostomy bag are noted on the left side of the abdomen. A vertical midline incision is noted, which is predominantly well-approximated and healing well. There is a small dehiscence near the superior pole of the midline incision, which appears generally pink and healthy in appearance. It has become quite superficial. The dehiscent wound appears to be decreasing in size. Dimensions are documented elsewhere. There does not appear to be any tunneling or undermining. There is no sign of infection or cellulitis. There is a small amount of bioburden. Neuro oriented x3, CN's II-XII intact bilaterally, moves all extremities and no focal motor deficits Sensorium / Orientation: awake, alert, oriented to person, oriented to place and oriented to time Psych Appearance: grossly normal and appropriate Attitude: calm Activity / Motor Behavior: appropriate eye contact Speech: normal speech Mood & Affect: euthymic mood Thought Process: normal thought process Thought Content: normal thought content Attention / Concentration: attention grossly intact Debridement Note Debridement Note Wound debrided: Surgical wound dehiscence of the abdomen Laterality: Not Applicable Type of Debridement: Excisional debridement Anesthesia Used: 5% Lidocaine Gel Depth: Down to and including healthy tissue and in the subcutaneous layer Percentage of wound debrided: 100 Instrument Used: 5mm curette Tissue Removed: Bioburden and nonviable tissue Severity: Fat Layer Exposed Amount of bleeding with debridement: Mild Bleeding Controlled with: Compression and gauze Patient tolerated procedure: Patient tolerated procedure well Post-Debridement Measurements and Additional Note: Post-Debridement Measurements/Treatment - Nurse 1 - General Ulcer Assessment Start: 06/09/24 13:20 Freq: Status: Active Protocol: JAK Activity Type Activity Date Activity User E-sign Co-sign Detail Recorded Client Recorded Date Recorded By Document 06/09/24 13:20 SHELDON [id number] 06/09/24 13:20 Document 06/16/24 13:17 KEITH [id number] 06/16/24 13:22 KW 06/09/24 06/16/24 13:20 13:17 - Today's Visit Information Type of service Follow-up Visit (Physician/PRESIDENT [employer] ) Arrival Mode Ambulatory Patient Identification Verified (Name & Yes ) Height and Weight Body Mass Index (BMI) 20.7 20.7 BMI Classification Normal Normal Vital Signs Temperature (97.8 F-99.1 F) 97.7 F L Temperature Source Temporal Pulse Rate (60-100) 74 Pulse Location Monitor Respiratory Rate (12-18) 18 Respiratory rate source Observation Oxygen Delivery Method Room Air Blood Pressure (90/60-120/80) 144/78 H Blood Pressure Mean 100 Source Monitor Position Semi-Fowlers Blood Pressure Location Left Arm History Since Last Visit- (Skip if this is Patient's initial visit) Have you changed medications since your No last visit? Any new allergies or adverse reactions No Had a fall/change in ADL's that may No increase risk of falls Signs or symptoms of abuse and/or No neglect since last visit Have you been in the hospital since your No last visit? Has dressing in place as prescribed Yes Has compression in place as prescribed N/A Has offloadiing in place as prescribed N/A Experienced any changes in pain level or No management Left Footwear Regular Shoe Right Footwear Regular Shoe Pain Scale: 0-10 Numeric Is Patient Pain Free? No Yes - Nurse 1 - General Ulcer Measurement Start: 06/09/24 13:20 Freq: Status: Active Protocol: Activity Type Activity Date Activity User E-sign Co-sign Detail Recorded Client Recorded Date Recorded By Document 06/09/24 13:20 SHELDON [id number] 06/09/24 13:20 Document 06/16/24 13:17 [id number] 06/16/24 13:22 06/09/24 06/16/24 13:20 13:17 Wound Center Nurse 1 1. Mid ABD -Current Size (cm) - Length 0.8 0.6 -Current Size (cm) - Width 0.4 0.7 -Current Size (cm) - Depth 0.1 0.1 -Total Square Cm 0.32 0.42 -Exudate Amt Small -Exudate Type Serosanguineous Serosanguineous -Wound Margin Distinct, Distinct, Outline Outline Attached Attached -Granulation Amt Large (67-100%) Large (67-100%) -Granulation Quality Red Red -Texture (Gita-wound Skin Appearance) Assessed Assessed -Moisture (Gita-wound Skin Appearance) Assessed Assessed -Color (Gita-wound Skin Appearance) Assessed Assessed -Temperature (Gita-wound Skin No Abnormality No Abnormality Appearance) (Pt Warm) (Pt Warm) -Tenderness on Palpation (Gita-wound No No Skin Appearance) -Ulcer Cleansing Rinsed/ Rinsed/ Irrigated with Irrigated with Saline Saline -Foul Odor after Cleansing No -Anesthetic Used 5% Lidocaine 5% Lidocaine Gel Gel WC - Nurse 2 - General Ulcer CM Notes Start: 06/09/24 13:20 Freq: Status: Active Protocol: Activity Type Activity Date Activity User E-sign Co-sign Detail Recorded Client Recorded Date Recorded By Document 06/09/24 13:37 [id number] 06/09/24 13:38 Document 06/16/24 13:31 [id number] 06/16/24 13:34 06/09/24 06/16/24 13:37 13:31 Wound Center Nurse 2 1. Mid ABD -Time 13:38 13:32 -Correct Patient Yes Yes -Correct Side, Site, Position Yes Yes -Correct Procedure Yes Yes -Procedure Performed Yes Yes -Type of Procedure Debridement Debridement -Clinical Debridement Subcutaneous Subcutaneous -Tissue Removed Subcutaneous Subcutaneous -Post Debridement (cm) - Length 1.0 0.9 -Post Debridement (cm) - Width 0.6 0.7 -Post Debridement (cm) - Depth 0.1 0.1 -Total Square (Post) (cm) 0.60 0.63 -Area of Debridement (cm) - Length 1.0 0.9 -Area of Debridement (cm) - Width 0.6 0.7 -Total Square (Area) (cm) 0.60 0.63 -Tunneling No No -Undermining/Tunneling No No -Circular Undermining No No -Wound/Ulcer Outcome Not Healed Not Healed -Ulcer Cleansing Rinsed/ Irrigated with Saline -Foul Odor after Cleansing No -Bioengineered Tissue No -Bleeding Controlled with Pressure Pressure -Treatment Response Procedure Procedure Tolerated Well Tolerated Well -Offloading No -Debridement - Subq, 1st 20sq cm Yes Yes Pain Scale: 0-10 Numeric Is Patient Pain Free? Yes Yes - Nurse 3 - General Ulcer D/C NN Start: 06/09/24 13:20 Freq: Status: Active Protocol: Activity Type Activity Date Activity User E-sign Co-sign Detail Recorded Client Recorded Date Recorded By Document 06/09/24 13:38 [id number] 06/09/24 13:39 Document 06/16/24 13:41 KW [id number] 06/16/24 13:41 KW 06/09/24 06/16/24 13:38 13:41 Wound Care Center Nurse 3 1. Mid ABD -Ulcer Cleansing Rinsed/ Irrigated with Saline -Foul Odor after Cleansing No -Primary Dressing Applied Promogran Promogran Kendra Matter Kendra Matter -Primary Dressing Covered/Secured with Dry Gauze, Dry Gauze, Secured with Secured with Tape Tape -Promogran Kendra Matter 1 1 Pain Scale: 0-10 Numeric Is Patient Pain Free? Yes Yes - Visit Discharge Discharge Condition Stable Ambulatory Status Ambulatory Transportation Private Auto Medication Reconcilliation completed & Yes provided to patient/care provider Clinical Summary of Care Provided Yes Charges/Coding Procedures Integumentary [id number]: [id number] Mandi subq tissue 20 sq cm/< Assessment/Plan Assessment/Plan (1) Wound dehiscence, surgical: CODE(S): T81.31XA - Disruption of external operation (surgical) wound, not elsewhere classified, initial encounter QUALIFIERS: Encounter type: subsequent encounter Qualified Code(s): T81.31XD - Disruption of external operation (surgical) wound, not elsewhere classified, subsequent encounter (2) History of intestinal obstruction: CODE(S): Z87.19 - Personal history of other diseases of the digestive system (3) Debility: CODE(S): R53.81 - Other malaise (4) Parkinson disease: CODE(S): G20.A1 - Parkinson's disease without dyskinesia, without mention of fluctuations (5) Urinary retention: CODE(S): R33.9 - Retention of urine, unspecified (6) Hypertension: CODE(S): I10 - Essential (primary) hypertension (7) BPH (benign prostatic hyperplasia): CODE(S): N40.0 - Benign prostatic hyperplasia without lower urinary tract symptoms (8) History of intestinal surgery: CODE(S): Z98.890 - Other specified postprocedural states PLAN: Plan This is a 78-year-old male who underwent exploratory laparotomy with sigmoid resection and end colostomy on December 15, 2023. The patient presented with a surgical wound dehiscence, which occurred 6 to 8 weeks prior to his presentation. The patient suffers from pre-existing medical conditions such as Parkinson's disease, hypertension, and chronic kidney disease (stage II). The patient has previously been under the care of his surgeon, Dr. Kirkland, and wound care has involved the use of Iodoform gauze packing. At this juncture, there is no significant depth to the dehiscent wound, as no undermining or tunneling are noted. We are to continue the use of Kendra, which will be applied topically on a daily basis. The patient and his daughter have been instructed in the appropriate means of application. It appears as though the patient is adept in the management of his colostomy, which is functioning well. He has been advised to take a well-balanced, nutritious diet. The patient is to return for reevaluation in 1 week. The patient's questions have been answered. His dehiscent wound has decreased in size, and the patient appears to be progressing well. Total time: 25 minutes
== END 2024-06-20 23:59 | disposition home or self-care (01) ==
LOC: WC 13:15
PROVIDERS: PCP Family Medicine; Referring Provider Family Medicine; Visit Provider Surgery
DX: T81.31XA Disruption of external operation (surgical) wound, not elsewhere classified, initial encounter (principal); Z93.3 Colostomy status; G20.A1 Parkinson's disease without dyskinesia, without mention of fluctuations; N40.1 Benign prostatic hyperplasia with lower urinary tract symptoms; I12.9 Hypertensive chronic kidney disease with stage 1 through stage 4 chronic kidney disease, or unspecified chronic kidney disease; R33.8 Other retention of urine; R53.81 Other malaise; N18.2 Chronic kidney disease, stage 2 (mild); Z79.899 Other long term (current) drug therapy
CPT/HCPCS: 11042

== ENCOUNTER 2024-07-07 13:15 | Outpatient (RCR) | payer MEDICARE, OTHER, SELFPAY ==
[2024-06-21 00:12] VITALS: BP 156/78; PULSE 71; RESP 18; TEMP 36.2; BMI 20.7
[2024-06-23 13:32] VITALS: BP 148/66; PULSE 60; RESP 18; TEMP 36; BMI 20.7
[2024-07-07 13:20] VITALS: BP 157/77; PULSE 60; RESP 18; TEMP 36.5; BMI 20.7
== END 2024-07-07 13:52 | disposition home or self-care (01) ==
LOC: WC 13:15
PROVIDERS: PCP Family Medicine; Referring Provider Family Medicine; Visit Provider Surgery
DX: T81.31XA Disruption of external operation (surgical) wound, not elsewhere classified, initial encounter (principal); Z93.3 Colostomy status; G20.A1 Parkinson's disease without dyskinesia, without mention of fluctuations; K43.2 Incisional hernia without obstruction or gangrene; N40.1 Benign prostatic hyperplasia with lower urinary tract symptoms; R53.81 Other malaise; Z87.19 Personal history of other diseases of the digestive system; R33.9 Retention of urine, unspecified; N18.2 Chronic kidney disease, stage 2 (mild); I12.9 Hypertensive chronic kidney disease with stage 1 through stage 4 chronic kidney disease, or unspecified chronic kidney disease
CPT/HCPCS: 11042; 99212; G0463

== ENCOUNTER → 2024-08-13 | Outpatient (CLI) | payer MEDICARE, OTHER, SELFPAY ==
--- NOTE | 2024-08-13 18:05 | CT_ITS ---
STUDY: CT ABDOMEN WITH CONTRAST REASON FOR EXAM: Male, 78 years old. Hernia/abdominal pain -- PO and IV contrast. History of prior colon surgery. RADIATION DOSAGE (If Supplied By Facility): CTDIvol = ( 12.05 ) mGy, DLP = ( 401.52 ) mGycm TECHNIQUE: Transaxial images were obtained post I.V. administration of IV 100mL Isovue-300, and with oral contrast. Sagittal and coronal images were reconstructed. Individualized dose optimization techniques were used for this CT. COMPARISON: Comparison is made with prior study dated December 15, 2023. FINDINGS: The visualized lung bases are unremarkable. Coronary artery calcification. Stable scattered small hepatic cysts. Normal gallbladder and extrahepatic biliary system. Normal spleen. Normal pancreas. Normal bilateral adrenal glands. Normal right kidney. There is a 5.2 cm x 6.5 cm cyst in the upper lateral aspect of the left kidney. Normal visualized stomach. Normal small intestine. A large amount of fecal material is seen throughout the colon. Sigmoid diverticulosis. Surgical anastomosis in the region of the mid transverse colon. The appendix is visualized and appears normal. There is scattered atherosclerotic calcification of the abdominal aorta, without a demonstrated aneurysm. Normal inferior vena cava. Normal retroperitoneum. Weakening of the anterior abdominal musculature without a liya herniation. 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 Colon. There are diffuse degenerative changes of the visualized lumbar spine. Straightening of the normal lumbar lordosis. CT/Abdomen WITH IV Contrast IMPRESSION: Small scattered hepatic cysts. Stable left renal cyst. Large amount of fecal material is seen in the colon. Sigmoid diverticulosis. Imaging of the anterior abdominal wall without liya herniation. 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 Electronically Signed: Brady Mackenzie MD at 14:15 EDT ,
--- OUTSIDE RECORDS SUMMARY | 2024-08-13 18:07 | XMS RPT_ITS | CCD ---
Author Organization [facility] Care Team Providers Care Manager Of Case Management Name Role Phone Sarika Montaño Primary Care Provider SARIKA MONTAÑO Primary Care Unavailable ADI KYLE Attending Unavailable PATIENCE MARCOS Attending Unavailable SARIKA MONTAÑO Primary Care Unavailable JUDITH ROSENBERG Referring Unavailable SARIKA MONTAÑO Primary Care Unavailable ADI KYLE Referring Unavailable JUDITH ROSENBERG Attending Unavailable Sarika Montaño Primary Care Provider Medications Current Medications Medication Drug Class(es) Dates Sig (Normalized) Sig (Original) amantadine hydrochloride 100 mg oral capsule (20 sources) Influenza A M2 Protein Inhibitor Start: 11-09-2022 End: 10-09-2023 amantadine HCl (SYMMETREL) 100 mg capsule Take 2 tablets at 9am, then 1 tablet at 1pm and 5pm. 360 capsule 1 10/09/2023 Active Start: 01-24-2022 End: 11-07-2022 amantadine HCl (SYMMETREL) 1 00 mg capsule Take 2 tablets at 9am, then 1 tablet at 1pm and 5pm. 360 capsule 1 01/24/2022 11/07/2022 Discontinued Start: 04-21-2021 End: 01-24-2022 take 1 capsule by mouth three times daily amantadine HCl (SYMMETREL) 100 mg capsule Take 1 capsule by mouth three times daily. 270 capsule 3 04/21/2021 01/24/2022 Discontinued Comment on above: Take 2 tablets at 9a m, then 1 tablet at 1pm and 5pm. Take 1 capsule by [facility] three times daily. carbidopa 25 mg / levodopa 100 mg oral tablet (20 sources) Aromatic Amino Acid Decarboxylation Inhibitor, Aromatic Amino Acid Start: 08-29-2022 End: 09-26-2024 take 1 tablet by mouth once daily at bedtime carbidopa-levod opa CR (SINEMET CR) 25-100 mg per tablet Take 1 tablet by mouth once daily. At bedtime. 30 tablet 11 09/27/2023 09/26/2024 Active Start: 04-25-2022 End: 06-25-2024 carbidopa-levodopa (SINEMET 25-100) 25-100 mg per tablet Take 1.5 tablet every 5 hours, 3 times daily. 135 tablet 5 06/25/2024 Active Start: 07-19-2021 End: 04-13-2022 carbidopa-levodopa (SINEMET 25-100) 25-100 mg per tablet Take 1.5 tablet every 5 hours, 3 times daily. 135 tablet 5 07/19/2021 04/13/2022 Discontinued Comment on above: Take 1.5 tablet ever y 5 hours, 3 times daily. Take 1 tablet by kaushik th daily at bedtime. Take 1 tablet by kaushik th once daily. At bedtime. hydroCHLOROthiazide 12.5 mg oral tablet (17 sources) Thiazide Diuretic take 1 tablet by mouth once daily hydrochlorothiazide 12.5 mg ORAL tablet Take 12.5 mg by mouth once daily. Take one(1) tablet daily. Active Comment on above: Take 12.5 mg by mout h once daily. Take one(1) tablet daily. 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; Translations: [Insomnia due to medical condition] Onset: 03-17-2019 03-17-2019 Chronic Unclassified (4 sources) Movement disorder; Translations: [Motor fluctuations 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 in Parkinson's disease] Onset: 03-24-2018 03-24-2018 Chronic Past or Other Problems Problem Classification Problem Date Documented Date Episodic/Chronic Diseases of mouth; excluding dental (20 sources) Excessive salivation; Translations: [Disturbances of salivary secretion] Onset: 04-21-2021 04-21-2021 Episodic Other hereditary and degenerative nervous system conditions (20 sources) Drug-induced dyskinesia; Translations: [Drug induced subacute dyskinesia] Onset: 05-20-2018 Episodic Other nervous system disorders (1 source) Abnormal gait; Translations: [Other abnormalities of gait and mobility] Onset: 11-04-2023 11-04-2023 Episodic Residual codes; unclassified (17 sources) Livedo reticularis; 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] Onset: 03-17-2019 03-17-2019 Episodic Residual codes; unclassified (12 sources) Bilateral lower limb edema; Translations: [Localized edema] Onset: 11-02-2022 Episodic Results Test Name Value Interpretation Reference Range Facil ity BRITTANYOVon 02-27-2023 CNOV Office Visit (NREUS2 ) MAYNOR CARVER ([id number]) 1945 M Date Time Provider Department 02/27/23 11:00 AM JUDITH ROSENBERG NREUS2 During your visit today, we recorded the following information about you: Pulse Blood pressure Height 60/minute 168/77 1.778 m Judith Rosenberg APRN.CNP 02/27/2023 12:07 PM Signed [facility] - FOLLOW UP EVALUATION Sarika Montaño MD [address] [facility] [place] [address] Dear Sarika Montaño MD: I had the [...] Row Office Visit from 02/27/2023 in [facility] Visit from 08/29/2022 in [facility] T Score 50.8 50.8 [...] subscale condition of exam Medication Off/On/Naiive ON (more content not included)... Normal [facility] Vital Signs Date Time Vital Sign Value Performing Clinician Randi méndez 02-27-2023 11:22-0400 Body height 177.8 cm Judith Rosenberg APRN.CNP Work Phone: [facility] 02-27-2023 11:22-0400 Diastolic blood pressure 77 mm[Hg] Judith Rosenberg APRN.CNP Work Phone: [facility] 02-27-2023 11:22-0400 Heart rate 60 /min Judith Rosenberg APRN.CNP Work Phone: [facility] 02-27-2023 11:22-0400 SaO2% (BldA) [Mass fraction] 98 % Judith Rosenberg HAIR BALER.BOTTLED BEVERAGE INSPECTOR Work Phone: [facility] 02-27-2023 11:22-0400 Systolic blood pressure 168 mm[Hg] Judith Rosenberg HAIR BALER.BOTTLED BEVERAGE INSPECTOR Work Phone: [facility] 08-29-2022 12:49-0500 SaO2% (BldA) [Mass fraction] 99 % Aid Kyle MD Work Phone: [facility] 08-29-2022 12:46-0500 Body weight 67 kg Adi Kyle MD Work Phone: [facility] 08-29-2022 12:46-0500 Diastolic blood pressure 79 mm[Hg] Adi Kyle MD Work Phone: [facility] 08-29-2022 12:46-0500 Heart rate 65 /min Adi Kyle MD Work Phone: [facility] 08-29-2022 12:46-0500 Systolic blood pressure 172 mm[Hg] Adi Kyle MD Work Phone: [facility] 01-24-2022 13:37-0400 SaO2% (BldA) [Mass fraction] 98 % Adi Kyle MD Work Phone: [facility] 01-24-2022 13:35-0400 Body height 177.8 cm Adi Kyle MD Work Phone: [facility] 01-24-2022 13:35-0400 Diastolic blood pressure 96 mm[Hg] Adi Kyle MD Work Phone: [facility] 01-24-2022 13:35-0400 Heart rate 86 /min Adi Kyle MD Work Phone: [facility] 01-24-2022 13:35-0400 Systolic blood pressure 162 mm[Hg] Adi Kyle MD Work Phone: [facility] Encounters Encounter Date Encounter Type Care Provider Facility Start: 06-25-2024 End: 06-25-2024 Refill Boby Egan MD Work Phone: [facility] Comment on above: Refill Request Start: 11-04-2023 End: 11-04-2023 ambulatory [facility] Facility:[facility] Start: 10-09-2023 Refill Boby augustine MD Work Phone: [facility] Comment on above: Refill Request Start: 09-26-2023 Refill Patience bull APRN.BOTTLED BEVERAGE INSPECTOR Work Phone: [facility] Comment on above: Refill Request Start: 07-05-2023 Refill Adi wells MD Work Phone: [facility] Comment on above: Refill Request Start: 06-03-2023 End: 06-03-2023 ambulatory PATIENCE MARCOS Facility:[facility] Start: 06-03-2023 End: 06-03-2023 Office outpatient visit 15 minutes Patience Marcos APRN.BOTTLED BEVERAGE INSPECTOR Work Phone: [facility] Comment on above: Parkinson's disease (HCC) (Primary Dx) Start: 02-27-2023 End: 02-27-2023 ambulatory [facility] Facility:[facility] Start: 02-27-2023 End: 02-27-2023 Patient encounter procedure Judith Rosenberg APRN.BOTTLED BEVERAGE INSPECTOR Work Phone: [facility] Comment on above: Parkinson's disease (HCC) (Primary Dx); Motor fluctuations 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 in Parkinson's disease (HCC); Dyskinesia Start: 02-01-2023 Refill Adi wells MD Work Phone: [facility] Comment on above: Refill Request Start: 01-22-2023 Refill Adi wells MD Work Phone: [facility] Comment on above: Refill Request Start: 11-07-2022 Refill Willie rebolledo MD Work Phone: [facility] Comment on above: Refill Request Start: 11-02-2022 End: 11-02-2022 ambulatory Adi Kyle MD Work Phone: [facility] Comment on above: PD (Parkinson's dise ase) (HCC) (Primary Dx); Levodopa-induced dyskinesia; Sialorrhea; Bilateral leg edema Start: 11-02-2022 End: 11-02-2022 Telemedicine consultation with patient Adi Kyle MD Work Phone: [facility] Start: 08-29-2022 End: 08-29-2022 Patient encounter procedure Adi Kyle MD Work Phone: [facility] Comment on above: PD (Parkinson's dise ase) (HCC) (Primary Dx); Levodopa-induced dyskinesia; Sialorrhea; Insomnia due to medical condition; Dystonia Start: 04-13-2022 Refill Adi wells MD Work Phone: [facility] Comment on above: Refill Request Start: 02-23-2022 End: 02-23-2022 ambulatory Adi Kyle MD Work Phone: [facility] Comment on above: PD (Parkinson's dise ase) (HCC) (Primary Dx); Levodopa-induced dyskinesia; Sialorrhea Start: 02-23-2022 End: 02-23-2022 Telemedicine consultation with patient Adi Kyle MD Work Phone: [facility] Start: 02-13-2022 Chart abstracting Iraida foreman Research Coordinator Work Phone: [facility] Start: 02-09-2022 End: 02-09-2022 Patient encounter procedure Rosanna Shearer Research Coordinator Work Phone: [facility] Comment on above: Examination of parti cipant or control in clinical research (Primary Dx) Start: 01-24-2022 End: 01-24-2022 Patient encounter procedure Adi Kyle MD Work Phone: [facility] Comment on above: PD (Parkinson's dise ase) (HCC) (Primary Dx); Levodopa-induced dyskinesia; Dystonia Procedures Date Procedure Procedure Detail Performing Clinician Start: 02-21-2022 Adult depression scr eening assessment Adi Kyle MD Work Phone: Start: 04-04-2022 Adult depression scr eening assessment Adi Kyle MD Work Phone: Start: 10-02-2011 Colonoscopy Adi de la rosa MD Work Phone: Plan of Treatment Date Care Activity Detail Author Start: 08-21-2024 End: 08-21-2024 ambulatory 08/21/2024 10:40 AM EDT [facility] [address] [place], [place] [id number] Adi Kyle MD [address] [place], [place] [id number] Medication [facility] Comment on above: Medication Start: 06-21-2024 Covid-19 Vaccine () Covid-19 Vaccine () [facility] Start: 06-21-2024 Influenza vaccination Influenza Vacc ine (#1) [facility] Start: 10-21-2023 Advance Directive Discussion Advance Directive Discussion [facility] Start: 06-21-2023 Covid-19 Vaccine () Covid-19 Vaccine () [facility] Start: 06-21-2023 Influenza vaccination C [facility] Start: 02-21-2023 Adult depression screening assessment DEPRESSION SCREENING [facility] Start: 01-22-2023 Adult depression screening assessment DEPRESSION SCREENING [facility] Start: 12-08-2022 COVID-19 VACCINE (6 - Moderna series) COVID-19 VACCINE (6 - Moderna series) [facility] Start: 10-21-2022 ADVANCE DIRECTIVE DISCUSSION ADVANCE DIRECTIVE DISCUSSION [facility] Start: 10-21-2022 DEPRESSION ASSESSMENT DEPRESSION ASS ESSMENT [facility] Start: 06-21-2022 Influenza vaccination INFLUENZA (#1) [facility] Start: 12-31-2021 COVID-19 VACCINE (4 - Booster for Moderna series) COVID-19 VACCINE (4 - Booster for Moderna series) [facility] Start: 10-21-2021 ADVANCE DIRECTIVE DISCUSSION ADVANCE DIRECTIVE DISCUSSION [facility] Start: 10-21-2021 DEPRESSION ASSESSMENT DEPRESSION ASS ESSMENT [facility] Start: 10-02-2021 Colonoscopy COLONOSCOPY [facility] Start: 10-02-2021 COLORECTAL CANCER SCREENING COLORECTAL CANCER SCREENING [facility] Start: 09-15-2013 Shingrix Vaccine (2 of 3) Shingrix Vaccine (2 of 3) [facility] Start: 2011 Pneumococcal Vaccine : 65+ (1 - PCV) Pneumococcal Vaccine: 65+ (1 - PCV) [facility] Start: 2011 PNEUMOCOCCAL: 65+ (1 - PCV) PNEUMOCOCCAL: 65+ (1 - PCV) [facility] Start: 2011 PNEUMOVAX AGE 65 AND OVER WITH 5YR LOOKBACK (#1) PNEUMOVAX AGE 65 AND OVER WITH 5YR LOOKBACK (#1) [facility] Start: 2006 RSV Vaccine (1 - 1-d ose 60+ series) RSV Vaccine (1 - 1-dose 60+ series) [facility] Start: 1996 SHINGRIX VACCINE (1 of 2) SHINGRIX VACCINE (1 of 2) [facility] Start: 1991 COLOGUARD (FIT-DNA) COLOGUARD (FIT-D NA) [facility] Start: [address] COLONOGRAPHY [facility] Start: 1991 DIABETES SCREEN DIABETES SCREEN [facility] Start: 1991 Diabetes Screening Diabetes Screenin g [facility] Start: 1991 FECAL OCCULT BLOOD FECAL OCCULT BLOO D [facility] Start: 1991 SIGMOIDOSCOPY SIGMOIDOSCOPY [facility] Start: 1981 LIPID SCREEN LIPID SCREEN [facility] Start: 1965 Urine microalbumin profile [facility] Start: 1964 Anxiety Screening Anxiety Screening [facility] Start: 1964 Depression Screening Depression Scre ening [facility] Start: 1964 HEPATITIS C SCREENING HEPATITIS C [facility] Start: 1964 Hepatitis C screening Hepatitis C [facility] Immunizations Immunization Date Immunization Notes Care Provider Ellen gary 07-20-2023 influenza virus vacc ine, unspecified formulation Boby Egan MD Work Phone: [facility] 08-07-2022 influenza virus vacc ine, unspecified formulation Adi Kyle MD Work Phone: [facility] Payers Date Payer Category Payer Private Health Insurance [employer] SUPPLEMENT [id number] 2022-Present [phone] [address] [place] [address] Indsujeynity [id number] 2022 Private Health Insurance [id number] 2021 Unknown [employer] PPO [id number] 2021-Present [phone] [address] [place] [address] PPO [id number] 2021 Unknown [employer] SS PPO [id number] 2021-Present [phone] [address] [place] [address] PPO [id number] 2011 Medicare MEDICARE MEDICAR E A AND B [id number] 2011-Present [phone] [place] [address] Medicare [id number] 2011 Medicare [id number] Social History Date Type Detail Facility Start: 05-22-2011 End: 08-29-2022 Tobacco smoking status NHIS Never smoked tobacco [facility] Start: 05-22-2011 End: 08-29-2022 Tobacco use and exposure Smokeless tobacco non-user [facility] Start: 11-12-2019 End: 02-27-2023 Alcohol intake Not Asked [facility] Start: 1945 Sex Assigned At Male C [facility] Start: 01-14-2022 End: 08-29-2022 Exposure to SARS-CoV-2 (event) Not sure [facility] Start: 02-27-2023 End: 11-04-2023 History of Social function [facility] Start: 02-27-2023 End: 11-04-2023 Tobacco use panel [facility] Adult Depression Screening Assessment 0 [facility] Start: 04-17-2021 Gender identity Identifies as male gender (finding) [facility] Start: 04-17-2021 Sexual orientation Heterosexual (maria ines dash) [facility] Clinical Notes 01-24-2022 to 06-25-2024 Telephone Encounter - Sammie Pryor - 06/25/2024 10:49 AM EDTTelephone Encounter - Sammie Pryor - 06/25/2024 10:49 AM EDTPatient InstructionsPatient Instructions Note Date & Type Note Facility 06-25-2024 Telephone encounter Note Pt requesting refill as follows: Last FUV Oct 2023 with [facility]. Requested Prescriptions Pending Prescriptions Disp Refills carbidopa-levodopa (SINEMET 25-100) 25-100 mg per tablet 135 tablet 5 Sig: Take 1.5 tablet every 5 hours, 3 times daily. Upon approval, script will be sent electronically to the patient's pharmacy. Sammie Pruitt, Energy Sales Consultant III [facility] 06-25-2024 Miscellaneous Notes Pt requesting refill as follows: Last FUV Oct 2023 with [facility]. Requested Prescriptions Pending Prescriptions Disp Refills carbidopa-levodopa (SINEMET 25-100) 25-100 mg per tablet 135 tablet 5 Sig: Take 1.5 tablet every 5 hours, 3 times daily. Upon approval, script will be sent electronically to the patient's pharmacy. Sammie Pruitt Energy Sales Consultant III documented in this encounter [facility] 11-04-2023 Note HNO ID: [id number] Author: ADI KYLE MD Service: ? Author Type: Physician Type: Progress Notes Filed: 11/04/2023 11:05 Note Text: [facility] - FOLLOW UP EVALUATION - VIRTUAL VISIT Sarika Montaño MD [address] [facility] [address] [facility] [place] [address] Dear Sarika Montaño MD: I had the pleasure of seeing Mr. Carver for follow-up today. As you know he is a 78 year old right-handed male with a history of Parkinson disease since 2015. He is seen alone. We had a visit using: [employer] I have communicated my name and active licensure. The patient's identity and physical location were verified at the time of this visit. Either the patient or their legal passenger representative has been informed of the risks [...] issues. Getting PT through [facility] [place]. No falls, but with occasional freezing. Now [...] [facility] from 11/04/2023 in [facility] Appointment from 11/01/2023 in [facility] T Score 47.7 47.7 [...] onset and 2014 (more content not included)... [facility] 10-10-2023 Miscellaneous Notes Request from patient requesting refill. Please E-Scribe to [facility]. Last OV: 06/03/23 with SS Future OV: 11/01/23 with [facility] Requested Prescriptions Pending Prescriptions Disp Refills carbidopa-levodopa (SINEMET 25-100) 25-100 mg per tablet 135 tablet 5 Sig: Take 1.5 tablet every 5 hours, 3 times daily. Leonora Rebolledo documented in this encounter [facility] 10-09-2023 Miscellaneous Notes patient requesting refill as follows: Last FUV May 2023 with Pat[facility]. [facility] Requested Prescriptions Pending Prescriptions Disp Refills amantadine HCl (SYMMETREL) 100 mg capsule 360 capsule 1 Sig: Take 2 tablets at 9am, then 1 tablet at 1pm and 5pm. Upon approval, script will be sent electronically to the patient's pharmacy. Sammie Pruitt, Energy Sales Consultant III documented in this encounter [facility] 09-26-2023 Miscellaneous Notes Pt requesting refill as follows: Last FUV May 2023 with Patience. Requested Prescriptions Pending Prescriptions Disp Refills carbidopa-levodopa CR (SINEMET CR) 25-100 mg per tablet 30 tablet 11 Sig: Take 1 tablet by mouth once daily. At bedtime. Upon approval, script will be sent electronically to the patient's pharmacy. Sammie Pruitt, Energy Sales Consultant III documented in this encounter [facility] 07-05-2023 Miscellaneous Notes Patient requests via MyChart refills as follows: When approved Rx escribed to [facility] 06/03/23 FUV w/Patience Marcos BOTTLED BEVERAGE INSPECTOR Requested Prescriptions Pending Prescriptions Disp Refills carbidopa-levodopa CR (SINEMET CR) 25-100 mg per tablet 30 tablet 5 Sig: Take 1 tablet by mouth. Please review and advise. Jessica Anders documented in this encounter [facility] 06-03-2023 Note HNO ID: [id number] Author: Patience Marcos APRN.SUSAN Service: ? Author Type: Nurse Practitioner Type: Progress Notes Filed: 06/04/2023 10:19 AM Note Text: [facility] - FOLLOW UP EVALUATION - VIRTUAL VISIT Sarika Montaño [address] [facility] [address] [facility] [place] [address] Dear Sarika Montaño: I had the pleasure of seeing Mr. Carver for follow-up today. As you know he is a 77 year old right-handed male with a history of Parkinson disease since 2014. We had a visit using: [employer] I have communicated my name and active licensure. The patient's identity and physical location were verified at the time of this visit. Either the patient or their legal passenger representative has been informed of the risks [...] [facility] from 06/03/2023 in [facility] Office Visit from 02/27/2023 in [facility] T Score 50.8 50.8 [...] be levodopa respo (more content not included)... [facility] 06-03-2023 Instructions Patience Marcos APRN.SUSAN - 06/03/2023 1:15 PM EDT Reduce 12pm [...] any structural issues. documented in this encounter [facility] 06-03-2023 History of Presen t illness Narrative [facility] - FOLLOW UP EVALUATION - VIRTUAL VISIT Sarika Montaño [address] [facility] [address] [facility] [place] [address] Dear Sarika Montaño: I had the pleasure of seeing Mr. Carver for follow-up today. As you know he is a 77 year old right-handed male with a history of Parkinson disease since 2014. We had a visit using: [employer] I have communicated my name and active licensure. The patient's identity and physical location were verified at the time of this visit. Either the patient or their legal passenger representative has been informed of the risks [...] [facility] from 06/03/2023 in [facility] Office Visit from 02/27/2023 in [facility] T Score 50.8 50.8 [...] call with any questions. Sincerely, Patience Marcos APRN.BOTTLED BEVERAGE INSPECTOR documented in this encounter [facility] 02-27-2023 Note HNO ID: [id number] Author: Judith Rosenberg APRN.SUSAN Service: ? Author Type: Nurse Practitioner Type: Progress Notes Filed: 02/27/2023 12:07 PM Note Text: [facility] - FOLLOW UP EVALUATION Sarika Montaño MD [address] [facility] [place] [address] Dear Sarika Montaño MD: I had the pleasure of seeing Mr. Carver for follow-up today. As you know he is a 77 year old right-handed male with a history of Parkinson disease since 2015. He is seen with a daughter. Subjective [...] Row Office Visit from 02/27/2023 in [facility] Office Visit from 08/29/2022 in [facility] T Score 50.8 50.8 [...] all words eas (more content not included)... [facility] 02-27-2023 Instructions Judith Rosenberg APRN.BOTTLED BEVERAGE INSPECTOR - 02/27/2023 11:43 AM EDT It was [...] or you can send a message through [employer]. You can also now schedule and select appointments through [employer]. Judith Rosenberg APRN.SUSAN documented in this encounter [facility] 02-27-2023 History of Presen t illness Narrative [facility] - FOLLOW UP EVALUATION Sarika Montaño MD [address] [facility] [address] [facility] [place] [address] Dear Sarika Montaño MD: I had the [...] Row Office Visit from 02/27/2023 in [facility] Office Visit from 08/29/2022 in [facility] T Score 50.8 50.8 [...] call with any questions. Sincerely, Judith Rosenberg APRN.SUSAN documented in this encounter [facility] 02-01-2023 Miscellaneous Notes Patient requests via MyChart refills [...] 1pm and 5pm. Please review and advise. [facility] 01-22-2023 Miscellaneous Notes Patient requests via MyChart refills as follows: When approved Rx escribed to [facility]. 11/02/22 FU w/F Requested Prescriptions Pending Prescriptions Disp Refills carbidopa-levodopa CR (SINEMET CR) 25-100 mg per tablet 30 tablet 5 Sig: Take 1 tablet by mouth daily at bedtime. Please review and advise. [facility] 11-07-2022 Miscellaneous Notes Last FUV 11/02 with F. Script pending for approval. documented in this encounter [facility] 11-02-2022 History of Presen t illness Narrative [facility] - FOLLOW UP EVALUATION - VIRTUAL VISIT Sarika Montaño MD [address] [facility] [place] [address] Dear Sarika Montaño MD: I had the pleasure of seeing Mr. Carver for follow-up today. As you know he is a 77 year old right-handed male with a history of Parkinson disease since 2014. He is seen alone. We had a visit using: [employer] I received consent from the patient to [...] Row Office Visit from 08/29/2022 in [facility] Appointment from 01/24/2022 in [facility] Global Physical [facility] T Score 50.8 50.8 [...] Exercise: Last PT Date: Last OT Date: Last ST Date: Exercises Regularly: Objective Neurological Exam Mental [...] Adi Kyle MD documented in this encounter [facility] 08-29-2022 Instructions Suha Raza MD [...] or you can send a message through [employer]. You can also now schedule and select appointments through [employer]. Suha Raza MD documented in this encounter [facility] 08-29-2022 History of Presen t illness Narrative [facility] - FOLLOW UP EVALUATION Sarika Montaño MD [address] [facility] [place] [address] I had the pleasure of seeing Mr. [...] Row Office Visit from 08/29/2022 in [facility] Appointment from 01/24/2022 in [facility] Global Physical Health T Score 50.8 50.8 [...] addressed during this visit: Pd (parkinson's disease) ([facility]) (primary encounter diagnosis) Levodopa-induced dyskinesia Sialorrhea [...] FRCPC Fellow, Movement Disorders [facility] Neurology attending addendum: I personally saw and examined the patient with the Fellow. The case and management was discussed in detail. I agree with the above note regarding the patient's: Pd (parkinson's disease) ([facility]) (primary encounter diagnosis) Levodopa-induced dyskinesia Sialorrhea Insomnia due to medical condition Dystonia Level of service : 69877 (40-54 min). Time spent 40 min on the day of service, which included preparing to see the patient, mmnq-eb-qhng patient care, completing clinical documentation, obtaining and/or reviewing separately obtained history, performing a medically appropriate examination, counseling and educating the patient/family/caregiver, and ordering medications, tests, or procedures. MD David Jacobson and Elva Buckner Endowed Chair in Movement Disorders Director, [facility], [facility] instrument lens grinder apprentice (Neurology), [facility] documented in this encounter [facility] 04-24-2022 Miscellaneous Notes Request from patient requesting refill. Please E-Scribe to Tammy Mccain. Last OV: 02/23/22 with [facility] Future OV: 08/29/22 with [facility] Pending Prescriptions Disp Refills CARBIDOPA 25 MG-LEVODOPA 100 MG TABLET 135 tablet 5 Sig: Take 1.5 tablet every 5 hours, 3 times daily. ISADORA: No Leonora S documented in this encounter [facility] 02-23-2022 History of Presen t illness Narrative [facility] - FOLLOW UP EVALUATION Sarika Montaño MD [address] [facility] [place] [address] I had the pleasure of seeing Mr. Carver for follow up today. He is a 76 year old right-handed male with a history of Parkinson disease since 2016. He is seen alone. We had a visit using: [employer] I received consent from the patient to [...] visit: PROMIS-10 Appointment from 01/24/2022 in [facility] Most recent reading at 01/22/2022 8:55 PM Office Visit from 01/24/2022 in [facility] Most recent reading at 01/22/2022 8:55 PM [...] addressed during this visit: Pd (parkinson's disease) ([facility]) (primary encounter diagnosis) Levodopa-induced dyskinesia Sialorrhea [...] Adi Kyle MD documented in this encounter [facility] 02-13-2022 History of Presen t illness Narrative Summary: nQ Day 21 Phone call IRB# : [id number] Chief Meter Reader: Dr. Adi Kyle MD Study Name: neuroQERTY [...] mail for participating in study activities. Iraida ePralta, Research Coordinator documented in this encounter [facility] 02-09-2022 History of Presen t illness Narrative Summary: [id number] nQ baseline IRB# : [id number] Chief Meter Reader: Dr. Adi Kyle MD Study Name: neuroQERTY (nQ) Application in Touchscreen Devices for the Remote Management of Early Parkinson's Disease (PD) Study Visit Conducted by: Jose Bassett MD Date: February 12, 2022 Patient Patient seen for baseline visit on February 12, 2022 in office. Typing tasks and MDS-UPDRS completed. Advised patient that a enrollment management coordinator (Rosanna or Andrew) will be in contact with them on Day 21 to assist in deleting the nQ application from their phone. Jose Bassett MD documented in this encounter [facility] 01-24-2022 History of Presen t illness Narrative Summary: nQ Prescreening IRB# : [id number] Chief Meter Reader: Dr. Adi Kyle MD Study Name: neuroQERTY [...] schedule ~Day 17 follow up in clinic. Iraida Peralta, Research Coordinator Images from the original note were not included. [facility] - FOLLOW UP EVALUATION Sarika Montaño MD [address] [facility] [place] [address] I had the pleasure of seeing Mr. [...] addressed during this visit: Pd (parkinson's disease) ([facility]) (primary encounter diagnosis) Levodopa-induced dyskinesia Insomnia [...] was allergy at first, but when to student success coach and was negative. Left foot has some [...] PROMIS-10 Office Visit from 01/24/2022 in [facility]rological [facility]ominational Distance [facility] from 04/21/2021 in Neurological [facility]ominational Global Physical Health T Score 50.8 54.1 [...] Patellar 2+ 2+ Achilles 1+ 1+ Coordination Xuzuzs-ow-dgoa, rapid alternating movements and vvab-hn-rcih normal bilaterally without dysmetria. Movement Disorders Cognitive [...] Filed Total Assessment and Plan: Assessment Mr. Carevr is a right-handed 76 year old male with Parkinson's disease. Having some likely levodopa-related left eye closure and head/neck movements, question if segmental dystonia or stereotopy. Will trial increase in amantadine to 400mg a day. The following are the current problems noted and addressed during this visit: Pd (parkinson's disease) ([facility]) (primary encounter diagnosis) Levodopa-induced dyskinesia Dystonia Plan [...] note regarding the patient's: Pd (parkinson's disease) ([facility]) (primary encounter diagnosis) Levodopa-induced dyskinesia Dystonia Level of service: Est level 4 (30-39 min). Time spent 35 min on the day of service, which included osos-gy-wade patient care, completing clinical documentation, obtaining and/or reviewing separately obtained history, performing a medically appropriate examination, counseling and educating the patient/family/caregiver and ordering medications, tests, or procedures. MD Elizabeth Jacobson Endowed Chair in Movement Disorders Director, [facility], [facility] instrument lens grinder apprentice (Neurology), [facility] documented in this encounter [facility] 01-24-2022 Instructions Willie Tracey MD - 01/24/2022 2:31 PM EDT It was a pleasure to see you today. We addressed the following diagnoses: Pd (parkinson's disease) ([facility]) (primary encounter diagnosis) Levodopa-induced dyskinesia Dystonia [...] or you can send a message through [employer]. You can also now schedule and select appointments through [employer]. Willie Tracey MD documented in this encounter [facility] Evaluation note Diagnosis PD (Parkinson's disease) (HCC)- Primary Paralysis agitans Levodopa-induced dyskinesia Subacute dyskinesia due to drugs Dystonia Abnormal involuntary movements [facility] Examination of participant or control in clinical research- Primary Examination of participant in clinical trial [facility] Diagnosis PD (Parkinson's disease) (HCC)- Primary Paralysis agitans Levodopa-induced dyskinesia Subacute dyskinesia due to drugs Sialorrhea Disturbance of salivary secretion [facility] Diagnosis PD (Parkinson's disease) (HCC)- Primary Paralysis agitans Levodopa-induced dyskinesia Subacute dyskinesia due to drugs Sialorrhea Disturbance of salivary secretion 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 due to medical condition classified elsewhere Dystonia Abnormal involuntary movements [facility] Diagnosis PD (Parkinson's disease) (HCC)- Primary Paralysis agitans Levodopa-induced dyskinesia Subacute dyskinesia due to drugs Sialorrhea Disturbance of salivary secretion Bilateral leg edema Edema [facility] Parkinson's disease ([facility])- Primary Paralysis agitans Motor fluctuations 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 in Parkinson's disease (HCC) Dyskinesia Lack of coordination [facility] Parkinson's disease ([facility]CC)- Primary Paralysis agitans documented in this encounter [facility] Reason for Referral Specialty Diagnoses / Procedures Referred By Contac t Referred To Contact Diagnoses PD (Parkinson's disease) (HCC) Procedures PROVIDER ORDERED FOLLOW UP OFFICE/OUTPATIENT NEW HIGH MDM 60-74 MINUTES Adi Kyle MD [address] [place] [address] Referral ID Status Reason Start Date Expiration Date Visits Requested Visits Authorized [id number] Authorized PCP Requested Referral 08/26/2022 02/23/2023 1 1 Specialty Diagnoses / Procedures Referred By Contac t Referred To Contact [facility] Diagnoses PD (Parkinson's disease) (HCC) Procedures CONSULT TO PHYSICAL THERAPY PHYSICAL THERAPY EVALUATION HIGH COMPLEX 45 MINS Adi Kyle MD [address] [place] [address] [facility] [place] [address] [place] [address] Referral ID Status Reason Start Date Expiration Date Visits Requested Visits Authorized [id number] Pending Review PCP Requested Referral Auto-Generate d Referral 08/29/2022 08/29/2023 99 [phone] Referral ID Status Reason Start Date Expiration Date Visits Requested Visits Authorized [id number] Authorized PCP Requested Referral 01/31/2023 11/02/2023 1 1 Specialty Diagnoses / Procedures Referred By Contac t Referred To Contact Diagnoses Parkinson's disease (HCC) Procedures PROVIDER ORDERED FOLLOW UP OFFICE/OUTPATIENT NEW HIGH MDM 60-74 MINUTES Judith Rosenberg APRN.CNP [address] [place] [address] Referral ID Status Reason Start Date Expiration Date Visits Requested Visits Authorized [id number] Authorized PCP Requested Referral 05/30/2023 02/27/2024 1 [...] or prosecute any alcohol or drug abuse patient.[facility] the event this information is protected by the Federal Confidentiality of Alcohol and Drug Abuse Patient Records regulations: The Federal rules restrict any use of the information to criminally investigate or prosecute any alcohol or drug abuse patient.[facility] the event this information is protected by the Federal Confidentiality of Alcohol and Drug Abuse Patient Records regulations: The Federal rules restrict any use of the information to criminally investigate or prosecute any alcohol or drug abuse patient.[facility] the event this information is protected by the Federal Confidentiality of Alcohol and Drug Abuse Patient Records regulations: The Federal rules restrict any use of the information to criminally investigate or prosecute any alcohol or drug abuse patient.[facility] the event this information is protected by the Federal Confidentiality of Alcohol and Drug Abuse Patient Records regulations: The Federal rules restrict any use of the information to criminally investigate or prosecute any alcohol or drug abuse patient.[facility] Center[facility] the event this information is protected by the Federal Confidentiality of Alcohol and Drug Abuse Patient Records regulations: The Federal rules restrict any use of the information to criminally investigate or prosecute any alcohol or drug abuse patient.[facility] Center[facility] the event this information is protected by the Federal Confidentiality of Alcohol and Drug Abuse Patient Records regulations: The Federal rules restrict any use of the information to criminally investigate or prosecute any alcohol or drug abuse patient.[facility] the event this information is protected by the Federal Confidentiality of Alcohol and Drug Abuse Patient Records regulations: The Federal rules restrict any use of the information to criminally investigate or prosecute any alcohol or drug abuse patient.[facility] Center[facility] the event this information is protected by the Federal Confidentiality of Alcohol and Drug Abuse Patient Records regulations: The Federal rules restrict any use of the information to criminally investigate or prosecute any alcohol or drug abuse patient.[facility] Center[facility] the event this information is protected by the Federal Confidentiality of Alcohol and Drug Abuse Patient Records regulations: The Federal rules restrict any use of the information to criminally investigate or prosecute any alcohol or drug abuse patient.[facility] Center[facility] the event this information is protected by the Federal Confidentiality of Alcohol and Drug Abuse Patient Records regulations: The Federal rules restrict any use of the information to criminally investigate or prosecute any alcohol or drug abuse patient.[facility] Center[facility] the event this information is protected by the Federal Confidentiality of Alcohol and Drug Abuse Patient Records regulations: The Federal rules restrict any use of the information to criminally investigate or prosecute any alcohol or drug abuse patient.[facility] Center[facility] the event this information is protected by the Federal Confidentiality of Alcohol and Drug Abuse Patient Records regulations: The Federal rules restrict any use of the information to criminally investigate or prosecute any alcohol or drug abuse patient.[facility] CenterIn the event this information is protected by the Federal Confidentiality of Alcohol and Drug Abuse Patient Records regulations: The Federal rules restrict any use of the information to criminally investigate or prosecute any alcohol or drug abuse patient.[facility] CenterIn the event this information is protected by the Federal Confidentiality of Alcohol and Drug Abuse Patient Records regulations: The Federal rules restrict any use of the information to criminally investigate or prosecute any alcohol or drug abuse patient.[facility] Center[facility] the event this information is protected by the Federal Confidentiality of Alcohol and Drug Abuse Patient Records regulations: The Federal rules restrict any use of the information to criminally investigate or prosecute any alcohol or drug abuse patient.[facility] CenterIn the event this information is protected by the Federal Confidentiality of Alcohol and Drug Abuse Patient Records regulations: The Federal rules restrict any use of the information to criminally investigate or prosecute any alcohol or drug abuse patient.[facility] Reason for Visit (unrecogniz ed section and content) Reason Comments Established Patient Routine follow up PT SHOWED UP TO DON ON THEIR WAY NOW Reason Comments Follow Up Reason Onset Date Comments Refill Request 04/13/2022 Specialty Diagnoses / Procedures Referred By Contac t Referred To Contact Diagnoses PD (Parkinson's disease) (HCC) Procedures PROVIDER ORDERED FOLLOW UP OFFICE/OUTPATIENT NEW HIGH MDM 60-74 MINUTES Adi Kyle MD [address] [place] [address] Referral ID Status Reason Start Date Expiration Date V isits Requested Visits Authorized [id number] Closed PCP Requested Referral 08/26/2022 02/23/2023 1 1 Reason Onset Date Comments Refill Request 11/07/2022 Reason Onset Date Comments Refill Request 01/22/2023 Reason Onset Date Comments Refill Request 02/01/2023 Referral ID Status Reason Start Date Expiration Date V isits Requested Visits Authorized [id number] Closed PCP Requested Referral 01/31/2023 11/02/2023 1 1 Reason Comments Follow Up Specialty Diagnoses / Procedures Referred By Contac t Referred To Contact Diagnoses Parkinson's disease (HCC) Procedures PROVIDER ORDERED FOLLOW UP OFFICE/OUTPATIENT NEW HIGH MDM 60-74 MINUTES Judith Rosenberg APRN.SUSAN [address] [place] [address] Referral ID Status Reason Start Date Expiration Date V isits Requested Visits Authorized [id number] Closed PCP Requested Referral 05/30/2023 02/27/2024 1 1 Reason Onset Date Comments Refill Request 07/05/2023 Reason Onset Date Comments Refill Request 09/26/2023 Reason Onset Date Comments Refill Request 10/09/2023 Reason Onset Date Comments Refill Request 06/25/2024 Care Teams (unrecognized sec tion and content) Manager Of Case Management Relationship Specialty Start Date End Date Sarika Montaño PCP - General Family Practice 04/18/11 Manager Of Case Management Relationship Specialty Start Date End Date Sarika Montaño PCP - General Family Practice 04/18/11 Manager Of Case Management Relationship Specialty Start Date End Date Sarika Montaño PCP - General Family Practice 04/18/11 Manager Of Case Management Relationship Specialty Start Date End Date Sarika Montaño PCP - General Family Practice 04/18/11 Manager Of Case Management Relationship Specialty Start Date End Date Sarika Montaño PCP - General Family Practice 04/18/11 Manager Of Case Management Relationship Specialty Start Date End Date Sarika Montaño PCP - General Family Medicine 04/18/11 Manager Of Case Management Relationship Specialty Start Date End Date Sarika Montaño PCP - General Family Medicine 04/18/11 Manager Of Case Management Relationship Specialty Start Date End Date Sarika Montaño PCP - General Family Medicine 04/18/11 Manager Of Case Management Relationship Specialty Start Date End Date Sarika Montaño PCP - General Family Medicine 04/18/11 Manager Of Case Management Relationship Specialty Start Date End Date Sarika Montaño PCP - General [facility] 04/18/11 Manager Of Case Management Relationship Specialty Start Date End Date Sarika Montaño PCP - General Family Medicine 04/18/11 Manager Of Case Management Relationship Specialty Start Date End Date Sarika Montaño PCP - General Family Medicine 04/18/11 Manager Of Case Management Relationship Specialty Start Date End Date Sarika Montaño PCP - [facility] 04/18/11 Manager Of Case Management Relationship Specialty Start Date End Date Sarika Montaño PCP - [facility] 04/18/11 (unrecognized sect ion and content) No Status Records Found INFORMATION SOURCE (unrecogn ized section and content) DATE CREATED AUTHOR 11/04/2023 [facility] FOR RECORDS PERTAINING TO PATIENTS WHO ARE [...] BE BASED ON THE PRIMARY CLINICAL RECORDS. [employer] provides no warranty or guarantee of the accuracy or completeness of information in this document.
[2024-08-13 18:33] LABS: CREATININE FINGERSTICK < 1.0 mg/dL (0.70-1.30); EGFR FINGERSTICK > 60.0000 mL/min (>60)
== END | disposition home or self-care (01) ==
LOC: CT 18:05
PROVIDERS: PCP Family Medicine; Referring Provider Surgery; Visit Provider Surgery
DX: K43.2 Incisional hernia without obstruction or gangrene (principal); Z98.890 Other specified postprocedural states
CPT/HCPCS: 74160; Q9967

== ENCOUNTER → 2024-09-22 | Outpatient (CLI) | payer MEDICARE, OTHER, SELFPAY ==
[2024-09-22 18:43] LABS: PSA,Total - Annual Screen 3.05 ng/mL (0.00-4.00)
== END | disposition home or self-care (01) ==
LOC: MFPLAB 14:26
PROVIDERS: PCP Family Medicine; Referring Provider Family Medicine; Visit Provider Family Medicine
DX: Z12.5 Encounter for screening for malignant neoplasm of prostate (principal)
CPT/HCPCS: 36415; 84153; G0103

== ENCOUNTER 2024-11-29 14:30 | Emergency (ER) | payer MEDICARE, OTHER, SELFPAY ==
[2024-11-29] VITALS (7 sets, daily range): BP systolic 128–171; BP diastolic 75–89; PULSE 73–89; RESP 18–20; TEMP 36.4; O2SAT 96–98; BMI 21.8
--- NOTE | 2024-11-29 15:11 | CT_ITS ---
PROCEDURE: ABDOMEN/PELVIS W IV CONT ONLY REASON FOR EXAM: Lower abdominal pain TECHNIQUE: Abdomen and pelvis CT with intravenous contrast. Multiplanar reconstructions were performed. COMPARISON: 08/13/2024 FINDINGS: Lower chest: Unremarkable. Liver: A couple of scattered hepatic cysts are present which appear stable from the previous exam. Biliary/gallbladder: Unremarkable. Pancreas: Unremarkable. Spleen: Unremarkable. Adrenal glands: Unremarkable. Kidneys: A couple of cysts are present dominant cyst in the upper pole left kidney measuring 6.7 cm. Gastrointestinal/peritoneum: There is a fluid and gas collection in the mid pelvis measuring 5.3 x 3.2 cm, adjacent to the stump of the Dhillon pouch. Diverticulosis is present throughout this region. Postoperative changes are present of a diverting colostomy in the left lower quadrant and small-bowel resection. A parastomal hernia is present measuring 6.2 cm containing loops of small bowel. Diastasis of the rectus sheath is noted. There are 2 duodenal diverticula measuring up to 2 point cm.The appendix is not discretely visualized.There is a large spine smooth throughout colon. Vascular: Srqp-tc-tkgqsnbw scattered atherosclerotic calcifications are present. Lymph nodes: No enlarged lymph nodes by CT size criteria. Pelvic organs: Unremarkable. Bladder: There is focal bladder wall thickening at the dome of the bladder, which is adjacent to the extraluminal fluid and gas collection Bones: Moderate multilevel degenerative changes are present visualized spine. Soft tissues: Unremarkable. CT/Abdomen/Pelvis W IV Cont ONLY IMPRESSION: 1. Fluid and gas collection in the central pelvis, likely representing an absce ss due to dehiscence of the anastomosis at the rectal stump. 2. Focal bladder wall thickening at the dome of the bladder, which is likely du e to reactive changes from the adjacent abscess. A bladder lesion is also a possible differential consideration. Cystoscopy can be considered for further evaluation. 3. Postoperative changes of a diverting colostomy with a Alicia pouch and a p artial small bowel resection. A parastomal hernia is present containing loops of small bowel. 4. Large volume of stool throughout the colon, including rectal stump. 5. 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 Reading [facility]
--- NOTE | 2024-11-29 15:12 | ED.VIS.GI ---
HPI HPI - GI History of Present Illness Chief Complaint: Abd Pain Narrative Narrative: 79-year-old male past medical history of Parkinson disease presents with his daughter because of low to no output from his ostomy for the last 2 days. He relates history that he had colectomy approximately [address] Kirkland for twisted bowel. Over the last 2 days, he has noted no output from his ostomy. He may have had a small bowel movement with a small amount of air this morning. He denies any fevers or chills, no nausea or vomiting. He also complains of lower abdominal pain. No dysuria or hematuria. No exacerbating or alleviating factors. [facility] Medical History Bilateral inguinal hernia Incisional hernia of anterior abdominal wall without obstruction or gangrene History of intestinal obstruction Wound dehiscence, surgical BPH (benign prostatic hyperplasia) Debility Hypertension CKD (chronic kidney disease), stage II Parkinson disease Home Medications ?Medication ?Instructions ?Recorded ?Last Taken ?Type amantadine HCl 100 mg capsule 100 mg PO DAILY hill 12/04/23 12/24/23 08:15 History food supplemt, lactose-reduced 120 ml PO 4X/DAY nutrition #237 mL 12/24/23 12/24/23 13:05 Rx 0.08 gram-1.5 kcal/mL oral liquid (Ensure Plus High Protein) carbidopa 25 mg-levodopa 100 mg 2 tab PO 0800 #0 tabs 01/16/24 Unknown Rx tablet carbidopa ER 50 mg-levodopa 200 mg 1 tab PO QHS #0 tabs 01/16/24 Unknown Rx tablet,extended release carboxymethylcellulose sodium 0.5 1 drp ophthalmic (eye) Q6H PRN PRN 01/16/24 Unknown Rx % eye drops (Refresh Tears) DRY EYES #0 mL melatonin 10 mg sublingual tablet 5 mg (1/2 x 10 mg) PO QHS PRN 01/16/24 Unknown Rx Insomnia #0 tabs sennosides 8.6 mg-docusate sodium 2 tab PO BID #0 tabs 01/16/24 Unknown Rx 50 mg tablet (Stool Softener-Stimulant Laxative) sodium chloride 0.65 % nasal spray 1 spray NASAL BID PRN PRN NASAL 01/16/24 Unknown Rx aerosol (Deep Sea Nasal) DRYNESS #0 mL hydrochlorothiazide 25 mg tablet 12.5 mg PO DAILY 04/24/24 Unknown History aspirin 81 mg tablet,delayed 81 mg PO DAILY 11/29/24 Unknown History release (Adult Aspirin Regimen) carbidopa 25 mg-levodopa 100 mg 2 tab PO TID 11/29/24 Unknown History tablet Allergy/AdvReac Type Severity Reaction Status Date / Time No Known Allergies Allergy Verified 07/22/24 14:18 Family History Mother Heart disease Father Heart disease Surgical History History of intestinal surgery History of colostomy History of colectomy History of tonsillectomy and adenoidectomy Social History household members: none Smoking Status: Never smoker alcohol intake: never substance use type: does not use ROS ROS ED ROS Narrative Constitutional: No fever, no chills. HEENT: No sore throat. No neck pain. No rhinorrhea. Cardiovascular: No chest pain. No palpitations. No pedal edema. Respiratory: No cough, no shortness of breath. Abdominal: Positive bilateral lower abdominal pain. No nausea. No vomiting. No output from ostomy, including air. Genitourinary: No dysuria. No hematuria. Neurologic: No headaches. No dizziness. No lightheadedness. EXAM Physical Exam Narrative Exam Narrative: Afebrile. Vital signs noted. Nontoxic-appearing. Cardiovascular examination feels a regular rate and rhythm. Lungs are clear to auscultation bilaterally. Abdomen is soft with decreased bowel sounds. No guarding or rebound. Positive ostomy without air or feculent material contained within. Neurological examination shows him moving all his extremities and able to transfer from standing to cot, but consistent with Parkinson. Const Vital Signs: 11/29/24 14:30 11/29/24 16:30 11/29/24 18:02 Temperature 97.6 F L Temperature Source Temporal Pulse Rate 80 89 81 Respiratory Rate 20 H Blood Pressure 146/80 H 171/89 H 131/85 H Blood Pressure Mean 102 116 100 Pulse Ox 98 98 96 Oxygen Delivery Method Room Air Room Air Room Air 11/29/24 19:45 11/29/24 20:52 11/29/24 21:51 Temperature Temperature Source Pulse Rate 84 78 80 Respiratory Rate 18 18 18 Blood Pressure 145/84 H 143/82 H 132/76 H Blood Pressure Mean 104 102 94 Pulse Ox 98 97 96 Oxygen Delivery Method Room Air Room Air Room Air MDM MDM MDM Narrative Medical decision making narrative: Differential diagnosis includes but not limited to fecal impaction versus small bowel obstruction versus partial small bowel obstruction versus dehydration and low motility. Comprehensive workup was pursued. I do feel CT imaging is indicated. Patient be bolused normal saline 1 L intravenously and CBC and CMP obtained. I reviewed his laboratory work and he has slight elevation of his white count at 11.5 with hemoglobin normal at 13.4, hematocrit 39.9, platelet count normal at 267. CMP is remarkable for glucose of 112 but anion gap normal at 8, normal sodium of 136 and potassium 3.8. AST is low at 8 as well as ALT low at 8 with alk phos 83. Of significance is the review of the radiology report of the CT of the abdomen and pelvis. While there is a parastomal hernia, there is a large amount of stool in the colon and in the rectal stump. Of significance there is also a fluid collection with air representing abscess at the anastomosis of the rectal stump. Upon repeat examination, patient's abdomen remains soft, without guarding or rebound. There is a small amount of air in the bag. Given the CT findings, I discussed the patient with Dr. Surjit Kirkland with general surgery. He has evaluated the patient in the emergency department, and is a recommending transfer given the difficulty of his initial surgery, and the placement of this current fluid collection which is supposed to be abscess. It was felt that he would benefit from colorectal surgery. Initially, patient and his daughter were interested in transfer to [place], but both [facility] are on a waiting list. I was able to discuss patient with the [facility] transfer line. Dr. Kirkland informed me that he did a surgeon to surgeon transfer and discussed the patient with the colorectal surgeon there. He will be transferred in stable condition. Initially, patient was given IV Zosyn. Disposition is transferred in stable condition. History & Record Review Discussion w/independent historian: Patient and Family Lab Data Attestation: I reviewed the patient's lab results. Labs: Laboratory Results - last 24 hr 11/29/24 15:13 WBC 11.5 H RBC 4.16 L Hgb 13.4 Hct 39.9 L MCV 95.9 H MCH 32.2 H MCHC 33.6 RDW Std Deviation 58.2 H RDW Coeff of Ann 16.4 H Plt Count 267 MPV 11.2 Immature Gran % (Auto) 1.200 H Neut % (Auto) 83.5 H Lymph % (Auto) 8.7 L [place] % (Auto) 6.0 Eos % (Auto) 0.3 Baso % (Auto) 0.3 Absolute Neuts (auto) 9.6 H Absolute Lymphs (auto) 1.00 Nucleated RBC % 0 Sodium 136 Potassium 3.8 Chloride 100 Carbon Dioxide 28.0 Anion Gap 8 BUN 15 Creatinine 1.12 Estim Creat Clear Calc 53.08 Est GFR (MDRD) Af Amer 82 Est GFR (MDRD) Non-Af 67 BUN/Creatinine Ratio 13.4 Glucose 112 H Calcium 8.9 Total Bilirubin 2.10 H AST 8 L ALT 8 L Alkaline Phosphatase 83 Total Protein 7.5 Albumin 3.5 Globulin 4.0 Albumin/Globulin Ratio 0.9 Radiography Diagnostic Testing: Clinical Impression(s) from Imaging Studies Abdomen/Pelvis CT 11/29/24 15:11 IMPRESSION: 1. Fluid and gas collection in the central pelvis, likely representing an abscess due to dehiscence of the anastomosis at the rectal stump. 2. Focal bladder wall thickening at the dome of the bladder, which is likely due to reactive changes from the adjacent abscess. A bladder lesion is also a possible differential consideration. Cystoscopy can be considered for further evaluation. 3. Postoperative changes of a diverting colostomy with a Alicia pouch and a partial small bowel resection. A parastomal hernia is present containing loops of small bowel. 4. Large volume of stool throughout the colon, including rectal stump. 5. 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 Reading Location: [facility] Management Discussion w/another healthcare provider: [facility] (Dr. Kirkland, general surgery) Discharge Plan Triage Chief Complaint: Abd Pain ED Provider: Andry Brantley Dx/Rx/DC Orders Prescriptions: No Action amantadine HCl 100 mg capsule 100 mg PO DAILY Patient Comments: takes 1 tablet at noon hydrochlorothiazide 25 mg tablet 12.5 mg PO DAILY Ensure Plus High Protein 0.08 gram-1.5 kcal/mL Liquid 120 ml PO 4X/DAY Qty: 237 0RF carbidopa-levodopa 50-200 mg Tablet Extended Release 1 tab PO QHS Qty: 0 0RF carboxymethylcellulose sodium [Refresh Tears] 0.5 % Drops 1 drp ophthalmic (eye) Q6H PRN PRN (Reason: DRY EYES) Qty: 0 0RF carbidopa-levodopa 25-100 mg Tablet 2 tab PO 0800 Qty: 0 0RF melatonin 10 mg Tablet, Sublingual 5 mg PO QHS PRN (Reason: Insomnia) Qty: 0 0RF sennosides-docusate sodium [Stool Softener-Stimulant Laxat] 8.6-50 mg Tablet 2 tab PO BID Qty: 0 0RF Deep Sea Nasal 0.65 % Aerosol,Gays 1 spray NASAL BID PRN PRN (Reason: NASAL DRYNESS) Qty: 0 0RF aspirin [Adult Aspirin Regimen] 81 mg tablet,delayed release (DR/EC) 81 mg PO DAILY carbidopa-levodopa 25-100 mg Tablet 2 tab PO TID Rx Instructions: Take three times a day at 1100, 1600, and 1800 Primary Care Provider: Sarika Montaño Referrals: Sarika Montaño MD [Primary Care Provider] - Print Language: Tongan
[2024-11-29] MEDS: 0.9% Normal Saline (1000mL) 1,000 ML 999 ML IV (15:17)
[2024-11-29 15:24] LABS: Absolute Neutrophil Count 9.6 X10^3/uL (2.0-7.7); Basophil# 0.04 X10^3/uL; Basophil% 0.3 % (0-1); Eosinophil# 0.03 X10^3/uL; Eosinophils% 0.3 % (0-5); Hematocrit 39.9 % (40-54); Hemoglobin 13.4 g/dL (13.0-16.5); Lymphocyte % 8.7 % (19-41); Mean Corp Hgb Conc 33.6 g/dL (32-36); Mean Corpuscular Hgb 32.2 pg (27.0-32.0); Mean Corpuscular Volume 95.9 fL (80-94); Mean Platelet Vol. 11.2 fl (6.2-12.0); Monocyte# 0.69 X10^3/uL; NRBC Flagged by Analyzer 0 % (0-5); Neutrophil # 9.58 X10^3/uL (2.7-7.7); Neutrophil % 83.5 % (47-70); Platelet Count 267 K/mm3 (150-450); RBC Distribution Width CV 16.4 % (11.6-14.6); RBC Distribution Width SD 58.2 fl (35.1-43.9); Red Blood Count 4.16 M/mm3 (4.6-6.2); White Blood Count 11.5 K/mm3 (4.4-11.0)
[2024-11-29 15:42] LABS: ALB/GLOB Ratio 0.9 RATIO (0.9-2.4); AST(SGOT) 8 U/L (15-37); Alanine Aminotransfer ALT/SGPT 8 U/L (16-61); Albumin, Serum 3.5 g/dL (3.2-5.0); Alkaline Phosphatase 83 U/L (45-117); Anion Gap 8 (5-15); BUN 15 mg/dL (7-18); BUN/Creat Ratio 13.4 RATIO (10-20); Calcium,Total 8.9 mg/dL (8.5-10.1); Chloride 100 mmol/L (98-107); Creatinine, Serum 1.12 mg/dL (0.70-1.30); EST Glomerular Filtration Rate 67 mL/min (>60); Est Glom Filt Rate - Afr Amer 82 mL/min (>60); Estimated Creatinine Clearance 53.08 ml/min; Glucose 112 mg/dL (74-106); Potassium 3.8 mmol/L (3.5-5.1); Protein, Total 7.5 g/dL (6.4-8.2); Sodium Level 136 mmol/L (136-145)
--- NOTE | 2024-11-29 18:59 | HP.PCM_ITS ---
[facility] - General General Date of Service: 11/29/24 HPI Narrative ANTHONY CARVER, is a 79 M who presents to [facility] with his daughter due to complaints that he has not had ostomy output in the last 48 hours. 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 Mr. Carver suggests that his normal stooling frequency with his ostomy leads him to empty his appliance 1-3 times daily so to go 48 hours with output was highly abnormal. Once he recognized this he immediately resorted to a liquid diet and begin use of prune juice to try to stimulate a bowel movement. In addition to the absence of stool per his ostomy he states he was caught off guard suddenly experiencing a bowel movement per rectum today. He shares he has done well otherwise in this last 1 year and has not experienced any output per rectum in that time. Patient's emergency room workup included CBC which showed a mild leukocytosis at 11.[address] imaging of the abdomen pelvis with intravenous contrast. The latter study was read by radiology and highlighted a large volume of stool throughout the colon and rectal stump as well as an air-fluid collection of the pelvis that was felt to likely represent a pelvic abscess and derived from the Dhillon's pouch. Additionally, radiology noted presence of a parastomal hernia but were unable to provide emergency medicine with explanation for patient's reduced output apart from conjecture around an ileus and so surgery was consulted. [facility] Medical History Bilateral inguinal hernia Incisional hernia of anterior abdominal wall without obstruction or gangrene History of intestinal obstruction Wound dehiscence, surgical BPH (benign prostatic hyperplasia) Debility Hypertension CKD (chronic kidney disease), stage II Parkinson disease Home Medications ?Medication ?Instructions ?Recorded ?Last Taken ?Type amantadine HCl 100 mg capsule 100 mg PO DAILY hill 12/24/23 08:15 History food supplemt, lactose-reduced 120 ml PO 4X/DAY nutrit ion #237 mL 12/24/23 12/24/23 13:05 Rx 0.08 gram-1.5 kcal/mL oral liquid (Ensure Plus High Protein) pantoprazole 40 mg tablet,delayed 40 mg PO DAILY stoma ch acid 2 12/24/23 12/24/23 08:15 Rx release weeks #14 tabs Held on 04/24/24. Instructions: Ordered carbidopa 25 mg-levodopa 100 mg 2 tab PO 0800 #0 tabs 01/16/24 Unknown Rx tablet carbidopa 25 mg-levodopa 100 mg 2 tab PO BID@1100,1600 #0 tabs 01/16/24 Unknown Rx tablet carbidopa ER 50 mg-levodopa 200 mg 1 tab PO QHS #0 tab s 01/16/24 Unknown Rx tablet,extended release carboxymethylcellulose sodium 0.5 1 drp ophthalmic (ey e) Q6H PRN PRN 01/16/24 Unknown Rx % eye drops (Refresh Tears) DRY EYES #0 mL fluticasone propionate 50 1 spray NASAL BID #0 grams 0 01/16/24 Unknown Rx mcg/actuation nasal spray,suspension melatonin 10 mg sublingual tablet 5 mg (1/2 x 10 mg) P O QHS PRN 01/16/24 Unknown Rx Insomnia #0 tabs sennosides 8.6 mg-docusate sodium 2 tab PO BID #0 tabs 01/16/24 Unknown Rx 50 mg tablet (Stool Softener-Stimulant Laxative) sodium chloride 0.65 % nasal spray 1 spray NASAL BID # 0 mL 01/16/24 Unknown Rx aerosol (Deep Sea Nasal) sodium chloride 0.65 % nasal spray 1 spray NASAL BID P RN PRN NASAL 01/16/24 Unknown Rx aerosol (Deep Sea Nasal) DRYNESS #0 mL fluconazole 100 mg tablet 100 mg PO DAILY 6 days #6 ta bs 02/20/24 Unknown Rx hydrochlorothiazide 25 mg tablet 25 mg PO DAILY Unknown History Allergy/AdvReac Type Severity Reaction Status Date / Time No Known Allergies Allergy Verified 07/22/24 14:18 Family History Mother Heart disease Father Heart disease Surgical History History of intestinal surgery History of colostomy History of colectomy History of tonsillectomy and adenoidectomy Social History household members: none Smoking Status: Never smoker alcohol intake: never substance use type: does not use Vital Signs Vital Signs Vital Signs: 11/29/24 14:30 11/29/24 16:30 11/29/24 18:02 Temperature 97.6 F L Temperature Source Temporal Pulse Rate 80 89 81 Respiratory Rate 20 H Blood Pressure 146/80 H 171/89 H 131/85 H Blood Pressure Mean 102 116 100 Pulse Ox 98 98 96 Oxygen Delivery Method Room Air Room Air Room Air Weight Weight: 152 lb 3.2 oz Body Mass Index (BMI) 21.8 Physical Exam Const alert, oriented x3, no apparent distress and well nourished Constitutional Narrative: Patient appears stronger and in better health than previous encounters Resp normal respiratory effort GI GI Narrative: Mildly distended but soft with no tenderness. No palpable herniation over the majority of the abdominal wall. Parastomal hernia appreciated in the left lower quadrant where patient's colostomy was found with minimal air but no stool in the ostomy appliance. The mucosa was notably healthy?appearing and well- perfused. The stoma was digitized and there is a bit of a tortuous course through the fascia but I was able to palpate through the fascia to some bulky stool just on the other side. Focused exam was then performed over patient's lower abdominal quadrants and suprapubic region with palpation to which he described a feeling of urgency but no tenderness Results Lab / Micro Data 11/29/24 15:13 11/29/24 15:13 Labs: Laboratory Results - last 24 hr 11/29/24 15:13: WBC 11.5 H, RBC 4.16 L, Hgb 13.4, Hct 39.9 L, MCV 95.9 H, MCH 32.2 H, MCHC 33.6, RDW Std Deviation 58.2 H, RDW Coeff of Ann 16.4 H, Plt Count 267, MPV 11.2, Immature Gran % (Auto) 1.200 H, Neut % (Auto) 83.5 H, Lymph % (Auto) 8.7 L, [place] % (Auto) 6.0, Eos % (Auto) 0.3, Baso % (Auto) 0.3, Absolute Neuts (auto) 9.6 H, Absolute Lymphs (auto) 1.00, Nucleated RBC % 0, Sodium 136, Potassium 3.8, Chloride 100, Carbon Dioxide 28.0, Anion Gap 8, BUN 15, Creatinine 1.12, Estim Creat Clear Calc 53.08, Est GFR (MDRD) Af Amer 82, Est GFR (MDRD) Non-Af 67, BUN/Creatinine Ratio 13.4, Glucose 112 H, Calcium 8.9, T otal Bilirubin 2.10 H, AST 8 L, ALT 8 L, Alkaline Phosphatase 83, Total Protein 7.5, Albumin 3.5, Globulin 4.0, Albumin/Globulin Ratio 0.9 Imaging Radiology Impression Abdomen/Pelvis CT 11/29/24 15:11 IMPRESSION: 1. Fluid and gas collection in the central pelvis, likely representing an abscess due to dehiscence of the anastomosis at the rectal stump. 2. Focal bladder wall thickening at the dome of the bladder, which is likely due to reactive changes from the adjacent abscess. A bladder lesion is also a possible differential consideration. Cystoscopy can be considered for further evaluation. 3. Postoperative changes of a diverting colostomy with a Alicia pouch and a partial small bowel resection. A parastomal hernia is present containing loops of small bowel. 4. Large volume of stool throughout the colon, including rectal stump. 5. 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 Reading Location: [facility] Assessment & Plan Assessment/Plan (1) Pelvic abscess in male: PLAN: Patient is a 79-year-old male who presents today due to complaints of constipation/obstipation via his left lower quadrant colostomy but was also found to have a greater than 5 cm pelvic abscess in association with his rectal stump. No clear obstructive process was delineated from his CT imaging but radiology did make mention of a parastomal hernia in conjunction with patient's colostomy. Upon digitizing patient's colostomy he experienced production of a large volume of brown pasty stool to his ostomy appliance. 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 Specifically I discussed that Mr. Carver's pelvic abscess was of such a size that I doubted the success of an antibiotic only approach and that its location was not immediately amenable to percutaneous drainage given intervening small intestine. Thus I felt the only option we would have to offer him at this facility is repeat surgery. Given our experience a year ago with his small bowel and colon operation, I believe this would be extremely technically and resource?demanding at this facility. Therefore, I concluded that I would like to see him evaluated in a tertiary facility where both advanced endoscopy and interventional radiology capabilities are available. I find it possible that the pelvic collection in question could be approached transrectally or alternatively with real-time CT guidance percutaneously if there were simultaneous manipulation of patient's bladder and intestinal content (perhaps through placement of Ayala catheter and table positioning). If these less invasive measures were not possible then colorectal experience would certainly be beneficial if patient were to face reoperation. Beyond the above I cannot provide a clear explanation as to why we now see the volume of air in Mr. Carver rectum or explain his experience of a large bowel movement per rectum today after no activity in the last 1 year. Given our previous intraoperative finding this could be related to some sort of fistulizing process. Mr. Carver and his daughter expressed appreciation for my time and explanations. They were also receptive to my recommendation for transfer and did not convey any significant preferences apart from wanting to start the search closer to home in the [facility]. This information has been conveyed to emergency medicine he will begin the process of initiating transfer. In the meantime I have asked them to begin empiric IV antibiotic therapy. Surjit Kirkland MD General Surgery Endocrine Surgery Pager: [facility] [address] [place] [address], [address] [place] [id number] Office: [phone] Charges/Coding Visit Charges Office Visits / Consults: 05130 ED Visit; High/Urgent Severity
[2024-11-29] MEDS: Piperacil/Tazobactam 3.375 GM in 0.9% Normal Saline (50mL MB+) 50 ML IV (19:44)
[2024-11-29] MEDS: Carbidopa/Levodopa 25/100 Tablet PO (21:15)
[2024-11-30 01:00] VITALS: BP 182/111; PULSE 71; RESP 16; O2SAT 98
--- NOTE | 2024-11-30 01:33 | ED.RN ---
PT ACCEPTED AT [facility] [id number] [phone] DR. JEWELL
[2024-11-30 01:53] VITALS: BP 128/75; PULSE 71; RESP 18; TEMP 36.8; O2SAT 97
--- NOTE | 2024-11-30 02:11 | ED.RN ---
Report called to Shayne TSANG at [facility]. Questions/concerns answered
== END 2024-11-30 02:08 | disposition short-term general hospital (02) ==
PROVIDERS: Emergency Provider Emergency Medicine; PCP Family Medicine; Visit Provider Emergency Medicine
DX: K65.1 Peritoneal abscess (principal); G20.C Parkinsonism, unspecified; I12.9 Hypertensive chronic kidney disease with stage 1 through stage 4 chronic kidney disease, or unspecified chronic kidney disease; N18.2 Chronic kidney disease, stage 2 (mild); Z79.82 Long term (current) use of aspirin
CPT/HCPCS: 74177; 80053; 85025; 96365; 99284; Q9967; A4216

== ENCOUNTER → 2025-01-25 | Outpatient (CLI) | payer MEDICARE, OTHER, SELFPAY ==
[2025-01-25 15:51] LABS: Absolute Neutrophil Count 8.8 X10^3/uL (2.0-7.7); Basophil# 0.09 X10^3/uL; Basophil% 0.9 % (0-1); Eosinophil# 0.05 X10^3/uL; Eosinophils% 0.5 % (0-5); Hematocrit 38.6 % (40-54); Hemoglobin 12.8 g/dL (13.0-16.5); Lymphocyte % 8.6 % (19-41); Mean Corp Hgb Conc 33.2 g/dL (32-36); Mean Corpuscular Hgb 32.2 pg (27.0-32.0); Mean Platelet Vol. 10.6 fl (6.2-12.0); Monocyte# 0.48 X10^3/uL; Monocyte% 4.6 % (0-10); NRBC Flagged by Analyzer 0 % (0-5); Neutrophil # 8.83 X10^3/uL (2.7-7.7); Neutrophil % 84.2 % (47-70); Platelet Count 330 K/mm3 (150-450); RBC Distribution Width CV 16.1 % (11.6-14.6); RBC Distribution Width SD 57.7 fl (35.1-43.9); Red Blood Count 3.98 M/mm3 (4.6-6.2); White Blood Count 10.5 K/mm3 (4.4-11.0)
[2025-01-25 16:39] LABS: Pro- Brain NATRIURETIC PEPTIDE 614 pg/mL (<=1800)
[2025-01-25 16:41] LABS: AST(SGOT) 15 U/L (<=37); Alanine Aminotransfer ALT/SGPT < 5 U/L (<=46); Albumin, Serum 3.9 g/dL (3.4-4.8); Alkaline Phosphatase 91 U/L (40-129); Anion Gap 14 (5-15); BUN 13 mg/dL (4-19); Calcium,Total 9.3 mg/dL (7.6-11.0); Carbon Dioxide 25.2 mmol/L (21.0-32.0); Chloride 100 mmol/L (98-108); Creatinine, Serum 0.84 mg/dL (0.70-1.20); EST Glomerular Filtration Rate 89 (>60); Globulin 3.7 g/dL (2.2-4.2); Glucose 112 mg/dL (70-99); Potassium 4.1 mmol/L (3.3-5.1); Protein, Total 7.6 g/dL (5.9-8.4); Sodium Level 139 mmol/L (133-145); Total Bilirubin 0.96 mg/dL (0.00-1.30)
== END | disposition home or self-care (01) ==
PROVIDERS: PCP Family Medicine; Referring Provider Family Medicine; Visit Provider Family Medicine
DX: R60.0 Localized edema (principal)
CPT/HCPCS: 36415; 80053; 83880; 84443; 85025

== ENCOUNTER 2025-03-23 01:58 | Inpatient (IN) | payer MEDICARE, OTHER, SELFPAY ==
[2025-03-23] VITALS (11 sets, daily range): BP systolic 110–161; BP diastolic 65–89; PULSE 81–100; RESP 13–28; TEMP 36.8–39.4; O2SAT 94–100; BMI 19.2
[2025-03-23 02:41] LABS: Absolute Lymphocyte Count 0.35 X10^3/uL (0.83-4.51); Absolute Neutrophil Count 9.8 X10^3/uL (2.0-7.7); Basophil# 0.05 X10^3/uL; Basophil% 0.5 % (0-1); Hematocrit 34.2 % (40-54); Hemoglobin 11.4 g/dL (13.0-16.5); Lymphocyte # 0.35 X10^3/ul (0.83-4.51); Lymphocyte % 3.2 % (19-41); Mean Corp Hgb Conc 33.3 g/dL (32-36); Mean Corpuscular Hgb 31.8 pg (27.0-32.0); Mean Corpuscular Volume 95.5 fL (80-94); Mean Platelet Vol. 10.8 fl (6.2-12.0); Monocyte# 0.53 X10^3/uL; Monocyte% 4.9 % (0-10); NRBC Flagged by Analyzer 0 % (0-5); Neutrophil # 9.81 X10^3/uL (2.7-7.7); Neutrophil % 90.5 % (47-70); POSITIVE DIFFERENTIAL YES; Platelet Count 308 K/mm3 (150-450); RBC Distribution Width CV 15.9 % (11.6-14.6); RBC Distribution Width SD 55.3 fl (35.1-43.9); Red Blood Count 3.58 M/mm3 (4.6-6.2); White Blood Count 10.8 K/mm3 (4.4-11.0)
--- NOTE | 2025-03-23 02:44 | EDS_ITS ---
HPI History of Present Illness Chief Complaint: Fever [facility] Medical History Bilateral inguinal hernia Incisional hernia of anterior abdominal wall without obstruction or gangrene History of intestinal obstruction Wound dehiscence, surgical BPH (benign prostatic hyperplasia) Debility Hypertension CKD (chronic kidney disease), stage II Parkinson disease Home Medications ?Medication ?Instructions ?Recorded ?Last Taken ?Type amantadine HCl 100 mg capsule 100 mg PO DAILY hill 12/24/23 08:15 History food supplemt, lactose-reduced 120 ml PO 4X/DAY nutrit ion #237 mL 12/24/23 12/24/23 13:05 Rx 0.08 gram-1.5 kcal/mL oral liquid (Ensure Plus High Protein) carbidopa 25 mg-levodopa 100 mg 2 tab PO 0800 #0 tabs 01/16/24 Unknown Rx tablet carboxymethylcellulose sodium 0.5 1 drp ophthalmic (ey e) Q6H PRN PRN 01/16/24 Unknown Rx % eye drops (Refresh Tears) DRY EYES #0 mL sennosides 8.6 mg-docusate sodium 2 tab PO BID #0 tabs 01/16/24 Unknown Rx 50 mg tablet (Stool Softener-Stimulant Laxative) sodium chloride 0.65 % nasal spray 1 spray NASAL BID P RN PRN NASAL 01/16/24 Unknown Rx aerosol (Deep Sea Nasal) DRYNESS #0 mL hydrochlorothiazide 25 mg tablet 12.5 mg PO DAILY 03/13 Unknown History aspirin 81 mg tablet,delayed 81 mg PO DAILY 11/29/24 U nknown History release (Adult Aspirin Regimen) carbidopa 25 mg-levodopa 100 mg 2 tab PO TID 11/29/24 Unknown History tablet Allergy/AdvReac Type Severity Reaction Status Date / Time No Known Allergies Allergy Verified 07/22/24 14:18 Family History Mother Heart disease Father Heart disease Surgical History History of intestinal surgery History of colostomy History of colectomy History of tonsillectomy and adenoidectomy Social History household members: none Smoking Status: Never smoker alcohol intake: never substance use type: does not use EXAM Physical Exam Const Vital Signs: 03/23/25 01:59 03/23/25 02:04 03/23/25 02:33 Temperature 102.9 F H 102.9 F H Temperature Source Oral Oral Pulse Rate 100 100 Respiratory Rate 28 H 20 H Blood Pressure 161/83 H 161/83 H Blood Pressure Mean 109 109 Pulse Ox 97 100 Oxygen Delivery Method Room Air Room Air Room Air 03/23/25 03:04 03/23/25 04:00 Temperature 100.7 F H 99.5 F H Temperature Source Oral Oral Pulse Rate 93 89 Respiratory Rate 18 19 H Blood Pressure 160/89 H 113/65 Blood Pressure Mean 112 81 Pulse Ox 97 96 Oxygen Delivery Method Room Air Nasal Cannula MDM MDM MDM Narrative Medical decision making narrative: HISTORY OF PRESENT ILLNESS: Chief complaint: Fever 79-year-old male history of pelvic abscess, incisional hernia of abdominal wall, small bowel obstruction, hypertension, CKD, Parkinson's disease presents with fever and diffuse weakness. The patient says this began tonight. He is coming by his daughter provide additional history. They note normal ostomy output. No vomiting. Denies liya abdominal pain. Denies cough. Denies sick contacts. They do note increased urination otherwise denies hematuria, frequency or urgency. They note diffuse weakness. No new focal weakness was endorsed by the patient. They endorse he has Parkinson's disease. REVIEW OF SYSTEMS: Pertinent positives: Weakness, fever, urinary frequency Pertinent negatives: Abdominal pain, dysuria, hematuria. Vomiting. Chest pain. Shortness of breath or cough PHYSICAL EXAM: Nursing triage notes reviewed, Vital signs reviewed Constitutional: please see mdm HENT: MMM Eyes: Pupils equal round and reactive to light, Extraocular muscles intact Neck: No stridor, no JVD, full neck ROM Lungs: Clear to auscultation, No wheezing or rales. No increased work of breathing, no conversational dyspnea, no accessory muscle use, no nasal flaring. No respiratory distress noted Heart: Regular rate and rhythm, No murmurs, No rubs and No gallops, 2+ distal pulses (radial, femoral, posterior tibial) in all extremities Abdomen: Soft, there is no tenderness, rigidity, rebound or guarding, no obvious peritoneal signs, no palpable pulsatile abdominal masses, no auscultated abdominal bruit : No CVAT Extremities: No edema Neuro: No new focal neurological deficits, cranial nerves II through XII intact, 5/5 strength in all present extremities. Intact sensation to light touch in all present extremities, 2+ reflexes bilateral patella tendons. Skin: No rash or lesions noted MEDICAL DECISION MAKING: Chief Complaint: please see HPI External records reviewed: Seen in November for bowel obstruction. Has seen Dr. Kirkland in the past (most recently in July 2024). Factors affecting care: as per [facility] Social determinants of health: Elderly History obtained from others: EMS Consults: Internal medicine (Dr. Shankar), recommend admission [facility] Narrative: The patient was initially febrile with a temperature of 102.9, tachypneic with respirate 28, saturating well on room air. Patient is also hypertensive with a blood pressure 161/83 I considered the following differential diagnosis: Sepsis, pneumonia, UTI, intra-abdominal infection ALL IMAGES (IF OBTAINED) HAVE BEEN PERSONALLY REVIEWED AND INTERPRETED BY MYSELF. CBC with no leukocytosis, mild anemia, no thrombocytopenia COVID/flu/RSV negative Lactate is wnl indicating no end-organ hypoperfusion and/or hypoxia. No coagulopathy BMP without evidence of significant electrolyte abnormalities, no anion gap, no acute kidney injury. LFTs show no evidence of hepatobiliary pathology. Urinalysis shows no evidence of urinary inflammation suggestive of UTI I have personally reviewed the patient's chest x-ray. Chest x-ray is unremarkable for pulmonary edema, pneumothorax, pneumonia or focal cardiopulmonary abnormality. CT scan abdomen pelvis is read with some concerning findings including possible ileus/partial small bowel obstruction as well as colitis and cystitis (however the patient has no abdominal pain has good ostomy output, has no evidence of UTI urinary complaints initial exam). Given initial fever, signs of inflammation inside the patient's abdomen patient was given Zosyn To cover intra-abdominal and urinary bacterial infections. On re-evaluation patient blood pressure improved to 113/65 and temperature improved to 99.5. Given high fever 102.9 concern for occult infection including bacteremia patient be admitted to await cultures. Discussed with hospitalist who agreed. The patient and/or family, caregivers express understanding. The patient and/or family, caregivers agrees with the plan. Shared decision making: I will have a discussion with the patient and or visitors regarding risk/benefits of further testing or admission. They will be made aware of of the risk/benefits inherent in this decision they will be given the opportunity to voice understanding. Total critical care time today provided was at least 0 minutes. This excludes separately billable procedures. Critical care time (if documented) is secondary to the patient having high probability of clinically significant/life threatening deterioration in the patient's condition which required my urgent intervention. Impression: 1. Fever 2. Colitis Dispo: Admit to medicine This note was generated with [employer] dictation software. It may contain incorrect words, spelling, and punctuation that were not noted in review of the chart prior to signing. Lab Data Labs: Laboratory Results - last 24 hr 03/23/25 03/23/25 03/23/25 02:27 03:17 03:20 WBC 10.8 RBC 3.58 L Hgb 11.4 L Hct 34.2 L MCV 95.5 H MCH 31.8 MCHC 33.3 RDW Std Deviation 55.3 H RDW Coeff of Ann 15.9 H Plt Count 308 MPV 10.8 Immature Gran % (Auto) 0.900 Neut % (Auto) 90.5 H Lymph % (Auto) 3.2 L Thayer % (Auto) 4.9 Eos % (Auto) 0.0 Baso % (Auto) 0.5 Absolute Neuts (auto) 9.8 H Absolute Lymphs (auto) 0.35 L Nucleated RBC % 0 PT 15.8 H INR 1.2 APTT 30.7 Sodium 137 Potassium 4.0 Chloride 97 L Carbon Dioxide 26.2 Anion Gap 14 BUN 21 H Creatinine 1.10 Est GFR (MDRD) Non-Af 69 BUN/Creatinine Ratio 18.7 Glucose 137 H Lactic Acid 2.0 Calcium 9.2 Total Bilirubin 1.41 H AST 40 H ALT 13 Alkaline Phosphatase 118 Total Protein 7.3 Albumin 3.9 Globulin 3.4 Albumin/Globulin Ratio 1.1 Urine Color Yellow Urine Clarity Clear Urine pH 5.0 Ur Specific Bypro 1.020 Urine Protein 30 H Urine Glucose (UA) Normal Urine Ketones Negative Urine Occult Blood 250 H Urine Nitrite Negative Urine Bilirubin Negative Urine Urobilinogen 1 H Ur Leukocyte Esterase 25 H Urine RBC 0 SEEN Urine WBC 0 SEEN Ur Squamous Epith Cells 0 SEEN Urine Bacteria 1+ Urine Mucus 0 SEEN Radiography Diagnostic Testing: Clinical Impression(s) from Imaging Studies Chest X-Ray 03/23/25 03:00 IMPRESSION: No radiographic evidence of an acute abnormality. Reading [id number] Abdomen/Pelvis CT 03/23/25 04:20 IMPRESSION: Minimal left pleural effusion. Passive atelectatic airspace disease in the left lower lobe. Left renal simple cyst measuring 5 cm. Again are noted the changes from prior partial colectomy. 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 Fluid-filled dilated small bowels, possibly presenting ileus and/or developing low-grade partial small bowel obstruction. No evidence of bowel perforation or pneumatosis intestinalis. Moderate amount of fecal residue in the proximal colon, probably constipation. Surgical changes of the anterior abdominal wall. Diffuse thickening and enhancement of the wall of the Dhillon pouch suggestive of proctitis/colitis. No evidence of associated perforation or abscess formation. Mild prostatomegaly. Scattered prostatic calcifications. Diffuse thickening of the wall of the bladder. Chronic bladder outlet obstruction versus cystitis. Scattered simple hepatic cysts are noted with the largest measuring 1.2 cm. Moderate diffuse spondylosis. Reading Location: [id number] Discharge Plan Triage Chief Complaint: Fever ED Provider: Thomas Young Dx/Rx/DC Orders Prescriptions: No Action amantadine HCl 100 mg capsule 100 mg PO DAILY Patient Comments: takes 1 tablet at noon hydrochlorothiazide 25 mg tablet 12.5 mg PO DAILY Ensure Plus High Protein 0.08 gram-1.5 kcal/mL Liquid 120 ml PO 4X/DAY Qty: 237 0RF carboxymethylcellulose sodium [Refresh Tears] 0.5 % Drops 1 drp ophthalmic (eye) Q6H PRN PRN (Reason: DRY EYES) Qty: 0 0RF carbidopa-levodopa 25-100 mg Tablet 2 tab PO 0800 Qty: 0 0RF sennosides-docusate sodium [Stool Softener-Stimulant Laxat] 8.6-50 mg Tablet 2 tab PO BID Qty: 0 0RF Deep Sea Nasal 0.65 % Aerosol,Holly 1 spray NASAL BID PRN PRN (Reason: NASAL DRYNESS) Qty: 0 0RF aspirin [Adult Aspirin Regimen] 81 mg tablet,delayed release (DR/EC) 81 mg PO DAILY carbidopa-levodopa 25-100 mg Tablet 2 tab PO TID Rx Instructions: Take three times a day at 1100, 1600, and 1800 Primary Care Provider: Sarika Monatño Referrals: Sarika Montaño MD [Primary Care Provider] - Print Language: Venezuelan
[2025-03-23] MEDS: 0.9% Normal Saline (500mL Bag) 500 ML 999 ML IV (02:51)
[2025-03-23] MEDS: Acetaminophen 325 MG Tablet 650 MG PO ×3 (02:51→21:29)
[2025-03-23] MEDS: Ketorolac 15 MG/ML Vial IV (02:52)
--- NOTE | 2025-03-23 03:00 | RAD_ITS ---
PROCEDURE: CHEST PA AND LATERAL 03/23/2025 REASON FOR EXAM: FEVER TECHNIQUE: Frontal and lateral views of the chest. COMPARISON: None. FINDINGS: The lungs are expanded. There is no demonstrated parenchymal abnormality. There is no demonstrated pleural abnormality. Enlarged cardiac silhouette. Normal mediastinum and willie. Normal visualized pulmonary arteries. Atheromatous plaques of the visualized aortic arch and descending thoracic aorta. Diffuse spondylosis of the visualized thoracic spine. Normal visualized ribs, clavicles. Degenerative joint disease. There is no demonstrated abnormality of the visualized soft tissue structures of the upper abdomen. RAD/Chest PA and Lateral IMPRESSION: No radiographic evidence of an acute abnormality. Reading Location: [facility]
--- OUTSIDE RECORDS SUMMARY | 2025-03-23 03:04 | XMS RPT_ITS | CCD ---
Author Organization [facility] Care Team Providers Care Nurse Practitioner Physicians Assistant Name Role Phone Sarika Montaño Primary Care Provider [phone] Dr. Sarika Montaño Primary Care Provider Friend, Dr. Tineo Attending Provider Dr. Surjit Kirkland Referring Provider Dr. Nikolay Rose Emergency Provider Dr. Surjit Kirkland Admit Provider Dr. Surjit Kirkland Other Provider Friend, Dr. Tineo Other Provider Dr. Eric Billingsley Other Provider Dr. Kelley Shankar Attending Provider Dr. Pito Nickerson Attending Provider Dr. Pito Nickerson Other Provider Dr. Surjit Kirkland Attending Provider Dr. Blayne Rosa Other Provider Dr. Sterling Iniguez Other Provider Dr. Steve Buckner Other Provider Dr. Rudy Navarrete Other Provider Dr. Sully Romero Other Provider [phone] Dr. Jabari Santana Other Provider Dr. Susan Lloyd Other Provider Dr. Jenna Littlejohn Other Provider Unavailable Dr. Alexandru Escobar Other Provider Dr. Lon Bowman Other Provider Dr. Ernesto Bowie Other Provider Dr. Shahid Baumann Other Provider Dr. Sterling Iniguez Attending Provider Jose E DELEON, PA-C Karin Attending Provider Dr. Missy Phelan Attending Provider Dr. Missy Phelan Other Provider Dr. Garth Becerra Other Provider Dr. Kristian Giles Attending Provider Dr. Sarika Montaño Primary Care Provider Gustavo, Dr. Tineo Attending Provider Dr. Surjit Kirkland Referring Provider Dr. Nikolay Rose Emergency Provider Dr. Surjit Kirkland Admit Provider Dr. Surjit Kirkland Other Provider Dr. Noman Chen Other Provider Dr. Eric Billingsley Other Provider Dr. Kelley Shankar Attending Provider Dr. Pito Nickerson Attending Provider Dr. Pito Nickerson Other Provider Dr. Surjit Kirkland Attending Provider Dr. Blayne Rosa Other Provider Dr. Sterling Iniguez Other Provider Dr. Steve Buckner Other Provider Dr. Rudy Navarrete Other Provider Dr. Sully Romero Other Provider [phone] Dr. Jabari Santana Other Provider Dr. Susan Lloyd Other Provider Dr. Jenna Littlejohn Other Provider Unavailable Dr. Alexandru Escobar Other Provider Dr. Lon Bowman Other Provider Dr. Ernesto Bowie Other Provider Dr. Shahid Baumann Other Provider Dr. Sterling Iniguez Attending Provider Jose E DELEON, PA-C Karin Attending Provider Dr. Missy Phelan Attending Provider Dr. Missy Phelan Other Provider Dr. Garth Becerra Other Provider Dr. Kristian Giles Attending Provider Dr. Ravi Conway Chi Admit Provider Dr. Ravi Conway Chi Other Provider Sarika Montaño Primary Care Provider [phone] SARIKA MONTAÑO Primary Care Unavailable CLAUDE KYLE Attending Unavailable SARIKA MONTAÑO Primary Care Unavailable CLAUDE KYLE Attending Unavailable Sarika Montaño MD Primary Care Provider SARIKA MONTAÑO Primary Care Unavailable SELF, SELF Referring Unavailable BEST, MEGHNA G Attending Unavailable SAKINA MATILDE Referring Unavailable BEST, MEGHNA G Attending Unavailable BEST, MEGHNA G Admitting Unavailable Dr. Sarika Montaño MD Primary Care Provider Matilde Brantley MD Attending Provider Matilde Brantley MD Emergency Provider Matilde Brantley MD Referring Provider Dr. Surjit Kirkland MD Attending Provider Dr. Sarika Montaño MD Attending Provider [phone] Dr. Sarika Montaño MD Referring Provider Matilde Brantley Referring Unavailable Jolliff, Sarika S Primary Care Unavailable Surjit Kirkland Attending Unavailable Jolliff, Sarika S Referring Unavailable Jolliff, Sarika S Primary Care Unavailable Fred Wells Attending Unavailable Regeralda, Matilde Attending Unavailable Jolliff, Sarika S Primary Care Unavailable Wells, Fred A Attending Unavailable Jolliff, Sarika S Primary Care Unavailable Jolliff, Sarika S Referring Unavailable Wells, Fred A Attending Unavailable Jolliff, Sarika S Primary Care Unavailable Jolliff, Sarika S Referring Unavailable Jolliff, Sarika S Attending Unavailable Jolliff, Sarika S Referring Unavailable Jolliff, Sarika S Primary Care Unavailable Jolliff, Sarika S Attending Unavailable Jolliff, Sarika S Referring Unavailable Jolliff, Sarika S Primary Care Unavailable Jolliff, Sarika S Primary Care Unavailable Surjit Kirkland Attending Unavailable Surjit Kirkland Referring Unavailable Jolliff, Sarika S Referring Unavailable Jolliff, Sarika S Primary Care Unavailable Surjit Kirkland Attending Unavailable Karin Camacho Attending Unavailable Jolliff, Sarika S Primary Care Unavailable Jolliff, Sarika S Referring Unavailable Medications Current Medications Medication Drug Class(es) Dates Sig (Normalized) Sig (Original) acetaminophen 325 mg oral tablet (2 sources) Start: 12-01-2024 End: 12-15-2024 take 3 tablets by mouth three times daily as needed for pain Acetaminophen 325 MG tablet Take 3 tablets by mouth 3 times daily as needed for Mild Pain for up to 14 days. 126 tablet 12/01/2024 12/15/2024 Active Start: 11-30-2024 End: 12-01-2024 975 mg, Oral, 3 TIMES DAILY, First dose on Sat11/30/24 at 0900, Until Discontinued, Maximum dose of acetaminophen is 4000 mg from all sources in 24 hours. aspirin 81 mg delayed release oral tablet (1 source) Platelet Aggregation Inhibitor, Nonsteroidal Anti-inflammatory Drug Start: 11-29-2024 take 1 tablet by mouth once daily Aspirin (Adult Aspirin Regimen) 81 mg tablet,delayed release (DR/EC) Active 81 mg PO DAILY November 29, 2024 1:00am carbidopa 25 mg / levodopa 100 mg oral tablet (20 sources) Aromatic Amino Acid Decarboxylation Inhibitor, Aromatic Amino Acid Start: 11-29-2024 End: 12-01-2024 1 tablet, Oral, 3 TIMES DAILY, First dose (after last modification) on Sat12/01/24 at 1100, Until Discontinued, Take 1.5 tablet every 5 hours, 3 times daily. (Continuation of home dosing) Start: 01-16-2024 Carbidopa-Levo dopa 25-100 mg Tablet Active 2 {tbl} PO 0800 0 January 16, 2024 12:00am Start: 01-16-2024 Carbidopa-Levo dopa 50-200 mg Tablet Extended Release Active 1 {tbl} PO AT BEDTIME 0 January 16, 2024 12:00am Start: 01-16-2024 Carbidopa-Levo dopa Active 2 TABLET PO 0800 0 January 16, 2024 12:00am Start: 01-16-2024 take 1 tablet by kaushik th at bedtime Carbidopa-Levodopa Active 1 TABLET PO AT BEDTIME 0 January 16, 2024 12:00am Start: 12-13-2023 End: 11-29-2024 Carbidopa-Levodopa 25-100 mg Tablet Discontinued 2 {tbl} PO BID@1100,1600 0 January 16, 2024 12:00am November 29, 2024 9:51pm Start: 12-13-2023 End: 01-16-2024 take 2 tablets by mouth twice daily Carbidopa-Levodopa Active 2 TABLET PO BID@1100,1600 0 January 16, 2024 12:00am Start: 12-04-2023 End: 01-16-2024 Carbidopa-Levodopa 25-100 mg tablet Discontinued 1.5 {tbl} PO DAILY December 04, 2023 1:00am January 16, 2024 8:03pm Start: 12-04-2023 End: 01-16-2024 take 1.5 tablets by mouth once daily Carbidopa-Levodopa Discontinued 1.5 TABLET PO DAILY December 04, 2023 1:00am January 16, 2024 8:03pm Start: 12-04-2023 take 1.5 tablets by mouth three times daily Carbidopa-Levodopa Active 1.5 TABLET PO THREE TIMES A DAY December 04, 2023 12:00am Start: 12-04-2023 End: 01-16-2024 Carbidopa-Levodopa 25-100 mg tablet extended release Discontinued 1 {tbl} PO AT BEDTIME December 04, 2023 1:00am January 16, 2024 8:03pm Start: 12-04-2023 End: 01-16-2024 take 1 tablet by mouth at bedtime Carbidopa-Levodopa Discontinued 1 TABLET PO AT BEDTIME December 04, 2023 1:00am January 16, 2024 8:03pm Start: 08-29-2022 End: 10-08-2025 take 1 tablet by mouth once daily at bedtime carbidopa-levodopa CR (SINEMET CR) 25-100 mg per tablet take 1 tablet by mouth once daily at bedtime 30 tablet 11 10/08/2024 10/08/2025 Active Start: 04-25-2022 End: 01-21-2025 carbidopa-levodopa (SINEMET 25-100) 25-100 mg per tablet Take 1.5 tablet every 5 hours, 3 times daily. 135 tablet 11 01/22/2025 Active Start: 07-19-2021 End: 04-13-2022 carbidopa-levodopa (SINEMET 25-100) 25-100 mg per tablet Take 1.5 tablet every 5 hours, 3 times daily. 135 tablet 5 07/19/2021 04/13/2022 Discontinued Comment on above: Take 1.5 tablet ever y 5 hours, 3 times daily. Take 1 tablet by kaushik th daily at bedtime. Take 1 tablet by kaushik th once daily. At bedtime. carboxymethylcellulose sodium 5 mg/ml ophthalmic solution (2 sources) Start: 2023 Carboxymethylcellulose Sodium (Refresh Tears) 0.5 % Drops Active 1 NMA OPHTHALMIC EVERY 6 HOURS NEEDED as needed for DRY EYES 0 January 16, 2024 12:00am docusate sodium 100 mg oral capsule (1 source) take 1 capsule by mouth twice daily Docusate 100 MG capsule Take 1 capsule by mouth 2 times daily. Active docusate sodium 50 mg / sennosides, chcf 8.6 mg oral tablet (2 sources) Start: 2023 Sennosides-Docusate Sodium (Stool Softener-Stimulant Laxat) 8.6-50 mg Tablet Active 2 {tbl} PO TWICE A DAY 0 January 16, 2024 12:00am Food Supplemt, Lactose-Reduced (Ensure Plus High Protein) 0.08 gram-1.5 kcal/mL Liquid (3 sources) Start: 2023 Food Supplemt, Lactose-Reduced (Ensure Plus High Protein) 0.08 gram-1.5 kcal/mL Liquid Active 120 mL PO 4 TIMES DAILY December 24, 2023 1:00am Start: 12-24-2023 Food Supplemt, Lactose-Reduced (Ensure Plus High Protein) 0.08 gram-1.5 kcal/mL Liquid Active 120 ML PO 4 TIMES DAILY December 24, 2023 1:00am Start: 12-24-2023 Food Supplemt, Lactose-Reduced (Ensure Plus High Protein) 0.08 gram-1.5 kcal/mL Liquid Active 120 ML PO 4 TIMES DAILY December 24, 2023 12:00am hydroCHLOROthiazide 25 mg oral tablet (20 sources) Thiazide Diuretic Start: 04-24-2024 Hydrochlorothiazide 25 mg tablet Active 12.5 mg PO DAILY April 24, 2024 12:00am Start: 12-04-2023 End: 12-04-2023 take 1 capsule by mouth once daily Hydrochlorothiazide 12.5 mg capsule Discontinued 12.5 mg PO DAILY December 04, 2023 1:00am December 04, 2023 1:32pm take 1 tablet by kaushik th once daily hydrochlorothiazide 12.5 mg ORAL tablet Take 12.5 mg by mouth once daily. Take one(1) tablet daily. Active Comment on above: Take 12.5 mg by mout h once daily. Take one(1) tablet daily. melatonin 10 mg sublingual tablet (2 sources) Start: 01-16-2024 take 5 mg by mouth at bedtime as needed Melatonin 10 mg Tablet, Sublingual Active 5 mg PO AT BEDTIME as needed for Insomnia January 16, 2024 12:00am Start: 01-16-2024 take 5 mg by mouth at bedtime Melatonin Active 5 MG PO AT BEDTIME January 16, 2024 12:00am ondansetron 4 mg oral tablet (2 sources) Serotonin-3 Receptor Antagonist Start: 12-01-2024 take 1 tablet by mouth every six hours as needed Ondansetron 4 MG tablet Take 1 tablet by mouth every 6 hours as needed for Nausea / Vomiting (1st Line Nausea / Vomiting). 30 tablet 12/01/2024 Active Start: 11-30-2024 End: 12-01-2024 take 1 tablet by mouth every six hours as needed Ondansetron (ZOFRAN) tablet 4 mg polyethylene glycol 3350 [id number] mg powder for oral solution (1 source) Osmotic Laxative Start: 12-01-2024 End: 12-01-2025 take 17 g by mouth once daily Polyethylene glycol 17 GM/SCOOP Powder powder Take 17 g by mouth daily. 510 g 5 12/01/2024 12/01/2025 Active Completed/Discontinued Medications Medication Drug Class(es) Dates Sig (Normalized) Sig (Original) amantadine hydrochloride 100 mg oral capsule (20 sources) Influenza A M2 Protein Inhibitor Start: 11-30-2024 End: 12-01-2024 take 100 mg by mouth twice daily 100 mg, Oral, 2 TIMES DAILY, First dose on Sat11/30/24 at 1300, Until Discontinued Start: 11-30-2024 End: 12-01-2024 take 5 tablets by mouth once daily in the evening 200 mg, Oral, DAILY, First dose on Sat11/30/24 at 0900, Until Discontinued, Take 2 capsules at 9am, then 1 tablet at 1 pm and 5 pm. (Continuation of home dosing) Start: 09-18-2024 amantadine HCl (SYMMETREL) 100 mg capsule Take 2 tablets at 9am, then 1 tablet at 1pm and 5pm. 360 capsule 1 09/18/2024 Active Start: 12-04-2023 take 1 capsule by [facility] daily Amantadine Hcl 100 mg capsule Active 100 mg PO DAILY December 04, 2023 1:00am Start: 11-09-2022 End: 09-16-2024 amantadine HCl (SYMMETREL) 1 00 mg capsule Take 2 tablets at 9am, then 1 tablet at 1pm and 5pm. 360 capsule 1 10/09/2023 09/16/2024 Discontinued Start: 01-24-2022 End: 11-07-2022 amantadine HCl (SYMMETREL) [...] 1pm and 5pm. Take 1 capsule by [facility] three times daily. carvedilol 6.25 mg oral tablet (3 sources) alpha-Adrenergic Isaak, beta-Adrenergic Isaak Start: End: take 1 tablet by mouth twice daily Carvedilol 6.25 mg Tablet Discontinued 6.25 mg PO TWICE A DAY 60 December 24, 2023 1:00am April 24, 2024 9:46am cefTRIAXone 2000 mg injection (1 source) Cephalosporin Antibacterial Start: End: take 2 g intravenously every twenty-four hours 2 g, Intravenous, Administer over 30 Minutes, EVERY 24 HOURS, First dose on Sat11/30/24 at 0500, Until Discontinued fluconazole 100 mg oral tablet (2 sources) Azole Antifungal Start: End: take 1 tablet by mouth once daily Fluconazole 100 mg Tablet Discontinued 100 mg PO DAILY 03 26February 20, 2024 12:00am November 29, 2024 9:50pm fluticasone propionate 0.05 mg/actuat metered dose nasal spray (7 sources) Corticosteroid Start: End: Fluticasone Propionate 50 mcg/actuation [place],Suspension Discontinued 1 NMA NASAL TWICE A DAY 0 January 16, 2024 12:00am November 29, 2024 9:50pm Start: 01-16-2024 Fluticasone Pr opionate Active 1 SPRAY NASAL TWICE A DAY 0 January 16, 2024 12:00am Start: 12-04-2023 End: 12-13-2023 Fluticasone Propionate 50 mc g/actuation [place],Suspension Discontinued 1 NMA NASAL TWICE A DAY December 04, 2023 1:00am December 13, 2023 4:05pm Start: 12-04-2023 End: 12-13-2023 Fluticasone Propionate Disco ntinued 1 SPRAY NASAL TWICE A DAY December 04, 2023 1:00am December 13, 2023 4:05pm HYDROmorphone (DILAUDID) injection 0.2 mg (1 source) Start: 11-30-2024 End: 12-01-2024 take 0.2 mg intravenously every three hours as needed HYDROmorphone (DILAUDID) injection 0.2 mg iohexol (OMNIPAQUE) 350 MG/ML injection 200 mL (1 source) Start: 12-01-2024 End: 12-01-2024 take 1 dose rectal route once 200 mL, Rectal, ONCE, 1 dose, On Sat12/01/24 at 1515, Extravasation Risk lidocaine 0.04 mg/mg medicated patch (1 source) Antiarrhythmic, Amide Local Anesthetic Start: 11-30-2024 End: 12-01-2024 apply 1 dose transdermal route every twenty-four hours 1 patch, Transdermal, Administer over 12 Hours, EVERY 24 HOURS, First dose on Sat11/30/24 at 0445, Until Discontinued, Apply to painful areas . Menthol / Zinc Oxide (2 sources) Start: 01-16-2024 End: 04-24-2024 Menthol-Zinc Oxide (Calmoseptine) 0.44-20.6 % Ointment Discontinued 1 NMA TOPICAL TWICE A DAY 0 January 16, 2024 12:00am April 24, 2024 9:47am Please contact the information source for Protocol details. Start: 01-16-2024 Menthol-Zinc O xide (Calmoseptine) 0.44-20.6 % Ointment Active 1 APPLIC TOPICAL TWICE A DAY 0 January 16, 2024 12:00am 100 ml metroNIDAZOLE 5 mg/ml injection (1 source) Nitroimidazole Antimicrobial Start: 11-30-2024 End: 12-01-2024 500 mg, Intravenous, at 200 mL/hr, Administer over 30 Minutes, EVERY 8 HOURS, First dose on Sat11/30/24 at 0600, Until Discontinued nitrofurantoin, macrocrystals 25 mg / nitrofurantoin, monohydrate 75 mg oral capsule (2 sources) Nitrofuran Antibacterial Start: 02-20-2024 End: 04-24-2024 take 1 capsule by mouth twice daily Nitrofurantoin Monohyd/M-Cryst 100 mg Capsule Discontinued 100 mg PO TWICE A DAY 12 February 20, 2024 12:00am April 24, 2024 9:48am nystatin 100 unt/mg topical powder (2 sources) Polyene Antifungal Start: 01-16-2024 End: 04-24-2024 Nystatin (Nyamyc) 100,000 unit/gram Powder Discontinued 1 NMA TOPICAL TWICE A DAY 0 January 16, 2024 12:00am April 24, 2024 9:48am Please contact the information source for Protocol details. Start: 01-16-2024 Nystatin (Nyam yc) 100,000 unit/gram Powder Active 1 APPLIC TOPICAL TWICE A DAY January 16, 2024 12:00am pantoprazole 40 mg delayed release oral tablet (3 sources) Proton Pump Inhibitor Start: 12-24-2023 End: 11-29-2024 take 1 tablet by mouth once daily Pantoprazole 40 mg Tablet,Delayed Release (Dr/Ec) Discontinued 40 mg PO DAILY December 24, 2023 1:00am November 29, 2024 9:51pm On Hold: Ordered phenol 14 mg/ml mucosal spray (1 source) Start: 11-30-2024 End: 12-01-2024 1 spray, Mouth/Throat, NEEDED, Starting on Sat11/30/24 at 0406, Until Sat12/01/24 at 2238, Sore Throat, Patient may self-administer. Prochlorperazine (1 source) Phenothiazine Start: 11-30-2024 End: 12-01-2024 take 1 tablet by mouth every six hours as needed Prochlorperazine (COMPAZINE) tablet 5 mg 1000 ml sodium chloride 9 mg/ml injection (6 sources) Start: 11-30-2024 End: 12-01-2024 Intravenous, at 100 mL/hr, CONTINUOUS, Starting on Sat11/30/24 at 0415, Until Sat12/01/24 at 1656 Start: 01-16-2024 End: 11-29-2024 Sodium Chloride ([place]) 0.65 % Aerosol,[place] Active 1 NMA NASAL TWICE DAILY NEEDED as needed for NASAL DRYNESS January 16, 2024 12:00am Start: 01-16-2024 Sodium Chlorid e ([place] Nasal) 0.65 % Aerosol,[place] Active 1 SPRAY NASAL TWICE A DAY January 16, 2024 12:00am tamsulosin hydrochloride 0.4 mg oral capsule (3 sources) alpha-Adrenergic Isaak Start: 12-24-2023 End: 04-24-2024 take 1 capsule by mouth once daily Tamsulosin 0.4 mg Capsule Discontinued 0.4 mg PO DAILY@1730 30 30 December 24, 2023 1:00am April 24, 2024 9:48am Problems Active Problems Problem Classification Problem Date Documented Da te Episodic/Chronic Abdominal pain (1 source) Lower abdominal pain, unspecified; Translations: [Lower abdominal pain, unspecified] Onset: 01-20-2025 Episodic Acute and unspecified renal failure (3 sources) Acute renal failure syndrome; Translations: [Acute kidney failure, unspecified] 12-24-2023 Episodic Anal and rectal conditions (2 sources) Rectal abscess ; Translations: [Rectal abscess] Onset: 12-01-2024 12-01-2024 Episodic Chronic kidney disease (1 source) Chronic kidney disease stage 2; Translations: [Chronic kidney disease, stage 2 (mild)] 04-24-2024 Chronic Complication of device; implant or graft (1 source) Altered bowel function; Translations: [Other complications of enterostomy] 12-08-2024 Chronic Diseases of white blood cells (5 sources) Leukocytosis; Translations: [Elevated white blood cell count, unspecified] 12-14-2023 Chronic E Codes: Fall (11 sources) Fall in home; Translations: [Unspecified fall, initial encounter] 12-04-2023 Episodic Essential hypertension (1 source) Hypertensive disorder; Translations: [Essential (primary) hypertension] 04-24-2024 Chronic Fever of unknown origin (5 sources) Fever; Translations: [Fever, unspecified] 12-14-2023 Episodic Fluid and electrolyte disorders (11 sources) Mild dehydration; Translations: [Dehydration] 12-04-2023 Episodic Genitourinary symptoms and ill-defined conditions (9 sources) Blood in urine; Translations: [Hematuria, unspecified] 12-21-2023 Episodic Hyperplasia of prostate (1 source) Benign prostatic hyperplasia; Translations: [Benign prostatic hyperplasia without lower urinary tract symptoms] 04-24-2024 Chronic Intestinal obstruction without hernia (16 sources) Intestinal obstruction; Translations: [Unspecified intestinal obstruction, unspecified as to partial versus complete obstruction] 12-13-2023 Episodic Malaise and fatigue (4 sources) Asthenia; Translations: [Other malaise] 12-24-2023 Episodic Nausea and vomiting (7 sources) Nausea and vomiting; Translations: [Nausea with vomiting, unspecified] 12-13-2023 Episodic Other connective tissue disease (2 sources) Foreign body granuloma of muscle; Translations: [Foreign body granuloma of soft tissue, not elsewhere classified, unspecified site] 02-19-2024 Episodic Other connective tissue disease (1 source) Foreign body granuloma of soft tissue, not elsewhere classified, unspecified site; Translations: [Foreign body granuloma of muscle] 02-21-2024 Episodic Other gastrointestinal disorders (1 source) History of bowel obstruction; Translations: [Personal history of other diseases of the digestive system] 04-24-2024 Episodic Other hereditary and degenerative nervous system conditions (20 sources) Dystonia; Translations: [Dystonia, unspecified] Onset: 01-29-2022 Chronic Other hereditary and degenerative nervous system conditions (1 source) Dyskinesia; Translations: [Dystonia, unspecified] Chronic Other upper respiratory infections (2 sources) Acute sinusitis; Translations: [Acute sinusitis, unspecified] 12-04-2023 Episodic Parkinson`s disease (20 sources) Parkinson's disease; Translations: [Parkinson's disease] Onset: 03-24-2018 Chronic Peritonitis and intestinal abscess (2 sources) Male pelvic abscess; Translations: [Peritoneal abscess] Onset: 01-20-2025 11-29-2024 Episodic Residual codes; unclassified (20 sources) Insomnia co-occurrent and due to medical condition; Translations: [Insomnia due to medical condition] Onset: 03-17-2019 03-17-2019 Chronic Residual codes; unclassified (6 sources) Unable to stand up; Translations: [Other general symptoms and signs] 12-04-2023 Episodic Residual codes; unclassified (5 sources) Other general symptoms and signs; Translations: [Other general symptoms] 12-04-2023 Episodic Residual codes; unclassified (2 sources) Other specified health status; Translations: [Failure of outpatient treatment] 12-04-2023 Episodic Residual codes; unclassified (3 sources) Edema; Translations: [Edema, unspecified] 12-18-2023 Episodic Residual codes; unclassified (2 sources) Edema, unspecified; Translations: [Edema] 12-24-2023 Episodic Residual codes; unclassified (1 source) History of colectomy; Translations: [Acquired absence of other specified parts of digestive tract] 04-24-2024 Episodic Residual codes; unclassified (1 source) Localized edema; Translations: [Localized edema] Onset: 01-29-2025 Episodic Skin and subcutaneous tissue infections (5 sources) Abscess; Translations: [Cutaneous abscess, unspecified] Onset: 11-30-2024 12-01-2024 Episodic Unclassified (10 sources) Movement disorder; Translations: [Motor fluctuations 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 in Parkinson's disease] Onset: 03-24-2018 03-24-2018 Chronic Past or Other Problems Problem Classification Problem Date Documented Date Episodic/Chronic Abdominal hernia (3 sources) Ventral incisional hernia; Translations: [Incisional hernia without obstruction or gangrene] Onset: 09-25-2024 06-24-2024 Episodic Complications of surgical procedures or medical care (5 sources) Postoperative seroma; Translations: [Postoperative seroma] Onset: 08-26-2024 01-06-2024 Episodic Diseases of mouth; excluding dental (20 sources) Excessive salivation; Translations: [Disturbances of salivary secretion] Onset: 04-21-2021 04-21-2021 Episodic Other hereditary and degenerative nervous system conditions (20 sources) Drug-induced dyskinesia; Translations: [Drug induced subacute dyskinesia] Onset: 05-20-2018 Episodic Other nervous system disorders (7 sources) Abnormal gait; Translations: [Other abnormalities of gait and mobility] Onset: 11-04-2023 11-04-2023 Episodic Other screening for suspected conditions (not mental disorders or infectious disease) (1 source) Encounter for screening for malignant neoplasm of prostate; Translations: [Encounter for screening for malignant neoplasm of prostate] Onset: 10-23-2024 Episodic Residual codes; unclassified (20 sources) Livedo reticularis; 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 Anion gap in Serum or Plasma Ordered By: Sarika Montaño on 01-25-2025 Anion gap [Moles/Vol] 14 mmol/L 5-15 [facility] BUN/creatinine ratioOrdered By: Sarika Montaño on 01-25-2025 Urea nitrogen/Creatinine [Mass ratio] 16.0 mg/mg 10-[address] [facility] Basophil percentageOrdered B y: Sarika Montaño on 01-25-2025 Basophils/100 WBC (Bld) 0.9 % 0-1 [facility] Bilirubin, totalOrdered By: Sarika Montaño on 01-25-2025 Bilirubin [Mass/Vol] 0.96 mg/dL 0.00-1.30 [facility] CBC W/Diff, Automatedon Absolute Lymph 0.90 X10 3/uL Normal 0.83-4.[address] [facility] Comment on above: Order Comment: Order Date: 01/25/25 Order Info: [id number] - CBCD Performed By: #### L 100.0100, L501.9520, L500.4050 #### [facility] [address] [place], [address] Absolute Neut 8.8 X10 3/uL High 2.0-7.[address] [facility] Comment on above: Order Comment: Order Date: 01/25/25 Order Info: 0184-1 - CBCD Performed By: #### L 100.0100, L501.9520, L500.4050 #### [facility] [address] [place], [address] Basophils/100 WBC (Bld) 0.9 % Normal 0-1 [facility] Comment on above: Order Comment: Order Date: 01/25/25 Order Info: 0184-1 - CBCD Performed By: #### L 100.0100, L501.9520, L500.4050 #### [facility] [address] [place], [address] Eosinophils/100 WBC (Bld) 0.5 % Normal 0-[address] [facility] Comment on above: Order Comment: Order Date: 01/25/25 Order Info: 0184-1 - CBCD Performed By: #### L 100.0100, L501.9520, L500.4050 #### [facility] [address] [place], [address] Erythrocyte distribution width (RBC) [Ratio] 16.1 % High 11.6-14.[address] [facility] Comment on above: Order Comment: Order Date: 01/25/25 Order Info: 0184-1 - CBCD Performed By: #### L 100.0100, L501.9520, L500.4050 #### [facility] [address] [place], [address] Hematocrit (Bld) [Volume fraction] 38.6 % Low 40-[address] [facility] Comment on above: Order Comment: Order Date: 01/25/25 Order Info: 0184- - CBCD Performed By: #### L 100.0100, L501.9520, L500.4050 #### [facility] [address] [place], [address] Hemoglobin (Bld) [Mass/Vol] 12.8 g/dL Low 13.0-16.[address] [facility] Comment on above: Order Comment: Order Date: 01/25/25 Order Info: 0184- - CBCD Performed By: #### L 100.0100, L501.9520, L500.4050 #### [facility] [address] [place], [address] IG% 1.200 High 0.0-0.[address] [facility] Comment on above: Order Comment: Order Date: 01/25/25 Order Info: 0184- - CBCD Result Comment: IG% - Immature Granulocytes (promyelocytes, myelocytes and metamyelocytes) > 1% indicates that a LEFT SHIFT is Present. Performed By: #### L 100.0100, L501.9520, L500.4050 #### [facility] [address] [place], [address] Lymphocytes/100 WBC (Bld) 8.6 % Low 19-[address] [facility] Comment on above: Order Comment: Order Date: 01/25/25 Order Info: 0184-1 - CBCD Performed By: #### L 100.0100, L501.9520, L500.4050 #### [facility] [address] [place], [address] MCH (RBC) [Entitic mass] 32.2 pg High 27.0-32.[address] [facility] Comment on above: Order Comment: Order Date: 01/25/25 Order Info: 0184-1 - CBCD Performed By: #### L 100.0100, L501.9520, L500.4050 #### [facility] [address] [place], [address] MCHC (RBC) [Mass/Vol] 33.2 g/dL Normal 32-36 [facility] Comment on above: Order Comment: Order Date: 01/25/25 Order Info: 0184- - CBCD Performed By: #### L 100.0100, L501.9520, L500.4050 #### [facility] [address] [place], [address] MCV (RBC) [Entitic vol] 97.0 fL High 80-94 [facility] Comment on above: Order Comment: Order Date: 01/25/25 Order Info: 0184-1 - CBCD Performed By: #### L 100.0100, L501.9520, L500.4050 #### [facility] [address] [place], [address] Monocytes/100 WBC (Bld) 4.6 % Normal 0-10 [facility] Comment on above: Order Comment: Order Date: 01/25/25 Order Info: 0184-1 - CBCD Performed By: #### L 100.0100, L501.9520, L500.4050 #### [facility] [address] [place], [address] Neutrophils/100 WBC (Bld) 84.2 % High 47-[address] [facility] Comment on above: Order Comment: Order Date: 01/25/25 Order Info: 0184-1 - CBCD Performed By: #### L 100.0100, L501.9520, L500.4050 #### [facility] [address] [place], [address] Nucleated RBC (Bld) [#/Vol] 0 10*3/uL Normal 0-[address] [facility] Comment on above: Order Comment: Order Date: 01/25/25 Order Info: 0184-1 - CBCD Performed By: #### L 100.0100, L501.9520, L500.4050 #### [facility] [address] [place], [address] Platelet mean volume (Bld) [Entitic vol] 10.6 fL Normal 6.2-12.[address] [facility] Comment on above: Order Comment: Order Date: 01/25/25 Order Info: 0184-1 - CBCD Performed By: #### L 100.0100, L501.9520, L500.4050 #### [facility] [address] [place], [address] Platelets (Bld) [#/Vol] 330 10*3/uL Normal 150-[address] [facility] Comment on above: Order Comment: Order Date: 01/25/25 Order Info: 0184-1 - CBCD Performed By: #### L 100.0100, L501.9520, L500.4050 #### [facility] [address] [place], [address] RBC (Bld) [#/Vol] 3.98 10*6/uL Low 4.6-6.2 [facility] Comment on above: Order Comment: Order Date: 01/25/25 Order Info: 0184-1 - CBCD Performed By: #### L 100.0100, L501.9520, L500.4050 #### [facility] [address] [place], [address] RDW SD 57.7 fl High 35.1-43.[address] [facility] Comment on above: Order Comment: Order Date: 01/25/25 Order Info: 0184-1 - CBCD Performed By: #### L 100.0100, L501.9520, L500.4050 #### [facility] [address] [place], [address] WBC (Bld) [#/Vol] 10.5 10*3/uL Normal 4.4-11.0 [facility] Comment on above: Order Comment: Order Date: 01/25/25 Order Info: 0184-1 - CBCD Performed By: #### L 100.0100, L501.9520, L500.4050 #### [facility] [address] [place], [address] Carbon dioxide, total [Moles /volume] in Central venous bloodOrdered By: Sarika Montaño on 01-25-2025 CO2 [Moles/Vol] 25.2 mmol/L 21.0-32.[address] [facility] Chloride assayOrdered By: Williams Montaño on 01-25-2025 Chloride [Moles/Vol] 100 mmol/L 98-108 [facility] Comprehensive Metabolic Prof ilon 01-25-2025 Albumin [Mass/Vol] 3.9 g/dL Normal 3.4-4.8 [facility] Comment on above: Order Comment: Order Date: 01/25/25 Order Info: 0786-1 - CMP Order Info: 3016-3 - TSH Performed By: #### L 100.0100, L501.9520, L500.4050 #### [facility] [address] [place], [address] Albumin/Globulin [Mass ratio] 1.0 {ratio} Normal 0.9-2.[address] [facility] Comment on above: Order Comment: Order Date: 01/25/25 Order Info: 0786-1 - CMP Order Info: 3015-3 - TSH Performed By: #### L 100.0100, L501.9520, L500.4050 #### [facility] [address] [place], [address] ALK PHOS 91 U/L Normal 40-[address] [facility] Comment on above: Order Comment: Order Date: 01/25/25 Order Info: 0786-1 - CMP Order Info: 3015-3 - TSH Performed By: #### L 100.0100, L501.9520, L500.4050 #### [facility] [address] [place], [address] ALT [Catalytic activity/Vol] U/L Normal <=[address] [facility] Comment on above: Order Comment: Order Date: 01/25/25 Order Info: 0786-1 - CMP Order Info: 3015-3 - TSH Performed By: #### L 100.0100, L501.9520, L500.4050 #### [facility] [address] [place], [address] AST [Catalytic activity/Vol] 15 U/L Normal <=[address] [facility] Comment on above: Order Comment: Order Date: 01/25/25 Order Info: 0786-1 - CMP Order Info: 301-3 - TSH Performed By: #### L 100.0100, L501.9520, L500.4050 #### [facility] [address] [place], [address] Bilirubin [Mass/Vol] 0.96 mg/dL Normal 0.00-1.30 [facility] Comment on above: Order Comment: Order Date: 01/25/25 Order Info: 0786-1 - CMP Order Info: 3016-3 - TSH Performed By: #### L 100.0100, L501.9520, L500.4050 #### [facility] [address] [place], [address] BUN/CRE 16.0 RATIO Normal 10-[address] [facility] Comment on above: Order Comment: Order Date: 01/25/25 Order Info: 0786-1 - CMP Order Info: 301-3 - TSH Performed By: #### L 100.0100, L501.9520, L500.4050 #### [facility] [address] [place], [address] Calcium [Mass/Vol] 9.3 mg/dL Normal 7.6-11.0 [facility] Comment on above: Order Comment: Order Date: 01/25/25 Order Info: 0786-1 - CMP Order Info: 3015-3 - TSH Performed By: #### L 100.0100, L501.9520, L500.4050 #### [facility] [address] [place], [address] Chloride [Moles/Vol] 100 mmol/L Normal 98-108 [facility] Comment on above: Order Comment: Order Date: 01/25/25 Order Info: 0786-1 - CMP Order Info: 301-3 - TSH Performed By: #### L 100.0100, L501.9520, L500.4050 #### [facility] [address] [place], [address] CO2 [Moles/Vol] 25.2 mmol/L Normal 21.0-32.[address] [facility] Comment on above: Order Comment: Order Date: 01/25/25 Order Info: 0786-1 - CMP Order Info: 301-3 - TSH Performed By: #### L 100.0100, L501.9520, L500.4050 #### [facility] [address] [place], [address] Creatinine [Mass/Vol] 0.84 mg/dL Normal 0.70-1.20 [facility] Comment on above: Order Comment: Order Date: 01/25/25 Order Info: 0786-1 - CMP Order Info: 3016-3 - TSH Performed By: #### L 100.0100, L501.9520, L500.4050 #### [facility] [address] [place], [address] GAP 14 Normal 5-[address] [facility] Comment on above: Order Comment: Order Date: 01/25/25 Order Info: 0786-1 - CMP Order Info: 3 - TSH Performed By: #### L 100.0100, L501.9520, L500.4050 #### [facility] [address] [place], [address] GFR/1.73 sq M.predicted among non-blacks MDRD (S/P/Bld) [Vol rate/Area] 89 mL/min/{1.73_m2} Normal >60 [facility] Comment on above: Order Comment: Order Date: 01/25/25 Order Info: 0786-1 - CMP Order Info: 3015-12 - TSH Result Comment: mL/m in/1.73m2 CKD-EPI Creatinine Equation (2020) Performed By: #### L 100.0100, L501.9520, L500.4050 #### [facility] [address] [place], [address] Globulin (S) [Mass/Vol] 3.7 g/dL Normal 2.2-4.2 [facility] Comment on above: Order Comment: Order Date: 01/25/25 Order Info: 0786-1 - CMP Order Info: 3 - TSH Performed By: #### L 100.0100, L501.9520, L500.4050 #### [facility] [address] [place], [address] Glucose [Mass/Vol] 112 mg/dL High 70-99 [facility] Comment on above: Order Comment: Order Date: 01/25/25 Order Info: 0786-1 - CMP Order Info: 3 - TSH Performed By: #### L 100.0100, L501.9520, L500.4050 #### [facility] [address] [place], [address] Potassium [Moles/Vol] 4.1 mmol/L Normal 3.3-5.1 [facility] Comment on above: Order Comment: Order Date: 01/25/25 Order Info: 785-1 - CMP Order Info: 3015-3 - TSH Performed By: #### L 100.0100, L501.9520, L500.4050 #### [facility] [address] [place], [address] Sodium [Moles/Vol] 139 mmol/L Normal 133-145 [facility] Comment on above: Order Comment: Order Date: 01/25/25 Order Info: 785-1 - CMP Order Info: 3015-3 - TSH Performed By: #### L 100.0100, L501.9520, L500.4050 #### [facility] [address] [place], [address] T PROT 7.6 g/dL Normal 5.9-8.[address] [facility] Comment on above: Order Comment: Order Date: 01/25/25 Order Info: 785- - CMP Order Info: 3 - TSH Performed By: #### L 100.0100, L501.9520, L500.4050 #### [facility] [address] [place], [address] Urea nitrogen [Mass/Vol] 13 mg/dL Normal 4-[address] [facility] Comment on above: Order Comment: Order Date: 01/25/25 Order Info: 0786-1 - CMP Order Info: 3015-3 - TSH Performed By: #### L 100.0100, L501.9520, L500.4050 #### [facility] [address] [place], [address] Eosinophil percentageOrdered By: Sarika Montaño on 01-25-2025 Eosinophils/100 WBC (Bld) 0.5 % 0-[address] [facility] Erythrocyte distribution wid th (RBC) [Ratio]Ordered By: Sarika Montaño on 01-25-2025 Erythrocyte distribution width (RBC) [Entitic vol] 57.7 fL High 35.1-43.9 [facility] Erythrocyte distribution wid th ratioOrdered By: Sarika Montaño on 01-25-2025 Erythrocyte distribution width (RBC) [Ratio] 16.1 % High 11.6-14.[address] [facility] GFR/1.73 sq M.predicted roman g non-blacks MDRD (S/P/Bld) [Vol rate/Area]Ordered By: Sarika Montaño on 01-25-2025 Estimated GFR (MDRD) Non-Af Amer 89 >[address] [facility] Comment on above: mL/min/1.73m2 CKD-EP I Creatinine Equation (2020) Hematocrit Auto (Bld) [Volum e fraction]Ordered By: Sarika Montaño on 01-25-2025 Hematocrit (Bld) [Volume fraction] 38.6 % Low 40-[address] [facility] Hemoglobin measurementOrdere d By: Sarika Montaño on 01-25-2025 Hemoglobin (Bld) [Mass/Vol] 12.8 g/dL Low 13.0-16.[address] [facility] Immature granulocytes/100 WB C Auto (Bld)Ordered By: Sarika Montaño on 01-25-2025 Immature granulocytes/100 WBC (Bld) 1.200 % High 0.0-0.[address] [facility] Comment on above: IG% - Immature Granu locytes (promyelocytes, myelocytes and metamyelocytes) > 1% indicates that a LEFT SHIFT is Present. L503.7505on 01-25-2025 Natriuretic peptide B (Bld) [Mass/Vol] 614 pg/mL Normal <=[address] [facility] Comment on above: Order Comment: Order Date: 01/25/25 Order Info: 0786-1 - CMP Order Info: 3016-3 - TSH Result Comment: Hear t Failure Unlikely: < 300 pg/mL Heart Failure Likely < 50 Years: > 450 pg/mL 50-75 Years: > 900 pg/mL >75 Years: > 1800 pg/mL Performed By: #### L 503.7505 #### [facility] [address] [place], [address] Laboratory - Chemistry and C hemistry - challengeOrdered By: Sarika Montaño on 01-25-2025 AST [Catalytic activity/Vol] 15 U/L <[address] [facility] Lymphocytes Auto (Unsp spec) [#/Vol]Ordered By: Sarika Montaño on 01-25-2025 Lymphocytes (Bld) [#/Vol] 0.90 10*3/uL 0.83-4.[address] [facility] Lymphocytes/100 WBC Auto (Un sp spec)Ordered By: Sarika Montaño on 01-25-2025 Lymphocytes/100 WBC (Bld) 8.6 % Low 19-[address] [facility] MCV (mean corpuscular volume ) determinationOrdered By: Sarkia Montaño on 01-25-2025 MCV (RBC) [Entitic vol] 97.0 fL High 80-94 [facility] Mean corpuscular hemoglobin (MCH) determinationOrdered By: Sarika Montaño on 01-25-2025 MCH (RBC) [Entitic mass] 32.2 pg High 27.0-32.[address] [facility] Mean corpuscular hemoglobin concentration (MCHC) determinationOrdered By: Sarika Montaño on 01-25-2025 MCHC (RBC) [Mass/Vol] 33.2 g/dL 32-36 [facility] Mean platelet volume determi nationOrdered By: Sarika Montaño on 01-25-2025 Platelet mean volume (Bld) [Entitic vol] 10.6 fL 6.2-12.[address] [facility] Monocyte percentageOrdered B y: Sarika Montaño on 01-25-2025 Monocytes/100 WBC (Bld) 4.6 % 0-10 [facility] Natriuretic peptide.B prohor gabriel N-Terminal [Mass/Vol]Ordered By: Sarika Montaño on 01-25-2025 Natriuretic peptide B (Bld) [Mass/Vol] 614 pg/mL <[address] [facility] Comment on above: Heart Failure Unlike ly: < 300 pg/mLHeart Failure Likely< 50 Years: > 450 pg/mL50-75 Years: > 900 pg/mL>75 Years: > 1800 pg/mL Neutrophil percentageOrdered By: Sarika Montaño on 01-25-2025 Neutrophils/100 WBC (Bld) 84.2 % High 47-[address] [facility] Nucleated red blood cell per centageOrdered By: Sarika Montaño on 01-25-2025 Nucleated RBC/100 WBC (Bld) [Ratio] 0 % 0-[address] [facility] Platelet countOrdered By: Williams Montaño on 01-25-2025 Platelets (Bld) [#/Vol] 330 10*3/uL 150-[address] [facility] Potassium (Unsp spec) [Mass/ Vol]Ordered By: Sarika Montaño on 01-25-2025 Potassium [Moles/Vol] 4.1 mmol/L 3.3-5.1 [facility] RBC Auto (Bld) [#/Vol]Ordere d By: Sarika Montaño on 01-25-2025 RBC (Bld) [#/Vol] 3.98 10*6/uL Low 4.6-6.2 [facility] Serum creatinine measurement (mass/volume)Ordered By: Sarika Montaño on 01-25-2025 Creatinine [Mass/Vol] 0.84 mg/dL 0.70-1.20 [facility] Serum globulin measurementOr dered By: Sarika Montaño on 01-25-2025 Globulin (S) [Mass/Vol] 3.7 g/dL 2.2-4.2 [facility] Serum glucose measurement (m ass/volume)Ordered By: Sarika Montaño on 01-25-2025 Glucose [Mass/Vol] 112 mg/dL High 70-99 [facility] Serum or plasma alanine brito otransferase (ALT) measurementOrdered By: Sarika Montaño on 01-25-2025 ALT [Catalytic activity/Vol] U/L <[address] [facility] Serum or plasma albumin katherine urement (mass/volume)Ordered By: Sarika Montaño on 01-25-2025 Albumin [Mass/Vol] 3.9 g/dL 3.4-4.8 [facility] Serum or plasma albumin/glob ulin mass ratioOrdered By: Sarika Montaño on 01-25-2025 Albumin/Globulin [Mass ratio] 1.0 {ratio} 0.9-2.[address] [facility] Serum or plasma alkaline kartik sphatase measurementOrdered By: Sarika Montaño on 01-25-2025 ALP [Catalytic activity/Vol] 91 U/L 40-[address] [facility] Serum or plasma calcium katherine urement (mass/volume)Ordered By: Sarika Montaño on 01-25-2025 Calcium [Mass/Vol] 9.3 mg/dL 7.6-11.0 [facility] Serum or plasma urea nitroge n measurement (mass/volume)Ordered By: Sarika Montaño on 01-25-2025 Urea nitrogen [Mass/Vol] 13 mg/dL 4-[address] [facility] Sodium levelOrdered By: Sarika Montaño on 01-25-2025 Sodium [Moles/Vol] 139 mmol/L 133-145 [facility] TSH DL <= 0.005 mIU/L QnOrde red By: Sarika Montaño on 01-25-2025 Thyroid Stimulating Hormone (TSH) 1.090 uIU/mL 0.300-4.[address] [facility] Thyroid Stim Hormone (TSH)on 01-25-2025 TSH 1.090 uIU/mL Normal 0.300-4.[address] [facility] Comment on above: Order Comment: Order Date: 01/25/25Order Info: 0786-1 - CMPOrder Info: 3016-3 - TSH Performed By: #### L 100.0100, L501.9520, L500.4050 ####[facility] [id number] [place], [address] Total proteinOrdered By: Sarika Montaño on 01-25-2025 Protein [Mass/Vol] 7.6 g/dL 5.9-8.4 [facility] White blood cell (WBC) count Ordered By: Sarika Montaño on 01-25-2025 WBC (Bld) [#/Vol] 10.5 10*3/uL 4.4-11.0 [facility] CBC,PLATELETSon 12-01-2024 Erythrocyte distribution width (RBC) [Ratio] 16.1 % High 10.9 - 14.3 % U [facility] Hematocrit (Bld) [Volume fraction] 36.4 % Low 39.6 - 48.8 % [facility] Hemoglobin (Bld) [Mass/Vol] 12.1 g/dL Low 13.4 - 16.8 g/dL [facility] Interpretation and review of laboratory results Abnormal [facility] MCH (RBC) [Entitic mass] 31.9 pg 26. 1 - 33.3 pg [facility] MCHC (RBC) [Mass/Vol] 33.2 g/dL 31.9 - 36.5 g/dL [facility] MCV (RBC) [Entitic vol] 96 fL High 79.0 - 94.5 fL [facility] Platelet mean volume (Bld) [Entitic vol] 11.2 fL 8.7 - 12.3 fL [facility] Platelets (Bld) [#/Vol] 236 10*3/uL 146 - 337 K/uL [facility] RBC (Bld) [#/Vol] 3.79 10*6/uL Low [facility] WBC (Bld) [#/Vol] 8.9 10*3/uL 3.73 - 10. 10 K/uL [facility] Hematocrit (Bld) [Volume fraction] 36.4 % Low 39.6-48.8 [facility] Comment on above: Performed By: #### NICK NOLASCO, IPB #### [facility] (DEFAULT) [address] [address] Hemoglobin (Bld) [Mass/Vol] 12.1 g/dL Low 13.4-16.8 [facility] Comment on above: Performed By: #### NICK NOLASCO, IPB #### [facility] (DEFAULT) [address] [address] MCV (RBC) [Entitic vol] 96.0 fL High 79.0-94.5 O [facility] Comment on above: Performed By: #### NICK NOLASCO, IPB #### [facility] (DEFAULT) [address] [address] Mean Cell Hgb 31.9 pg Normal 26.1-33.3 [facility] Comment on above: Performed By: #### Gi ROSA MGJennifer, IPB #### [facility] (DEFAULT) [address] [place] [address] Mean Cell Hgb Conc 33.2 g/dL Normal 31.9-36.5 [facility] Comment on above: Performed By: #### Gi HMDaniel MGO, IPB #### ZAM[facility] (DEFAULT) [address] [place] [address] Platelet mean volume (Bld) [Entitic vol] 11.2 fL Normal 8.7-12.3 [facility] Comment on above: Performed By: #### Gi ROSA MGO, IPB #### [place] (DEFAULT) [address] [address] Platelets (Bld) [#/Vol] 236 10*3/uL Normal 146-337 [facility] Comment on above: Performed By: #### Gi ROSA MGJennifer, IPB #### [place] [facility] (DEFAULT) [address] [address] RBC (Bld) [#/Vol] 3.79 10*6/uL Low 4.38-5.83 [facility] Comment on above: Performed By: #### Gi HMDaniel MGO, IPB #### [place] [facility] (DEFAULT) [address] [address] RBC Distribution 16.1 % High 10.9-14.3 [facility] Comment on above: Performed By: #### Gi ROSA MGO, IPB #### [place] [facility] (DEFAULT) [address] [place] [address] WBC (Bld) [#/Vol] 8.90 10*3/uL Normal 3.73-10.10 [facility] Comment on above: Performed By: #### Gi HM7 MGO, IPB #### [facility] (DEFAULT) [address] [place] [address] CHEM 7 (LYTES,BUN,CREA,GLUC) on 12-01-2024 Anion gap [Moles/Vol] 17 mmol/L 7 - 17 mmol/L [facility] Chloride [Moles/Vol] 104 mmol/L 98 - 10 8 mmol/L [facility] CO2 [Moles/Vol] 19 mmol/L Low 21 - 31 mmol/L [facility] Creatinine [Mass/Vol] 0.79 mg/dL 0.70 - 1.30 mg/dL [facility] eGFR, CKD-EPI, Male - PINF [facility] Comment on above: Reported eGFR is bas ed on the CKD-EPI 2020 equation using creatinine, age, and sex. Glucose [Mass/Vol] 66 mg/dL Low 70 - 99 mg/dL [facility] Interpretation and review of laboratory results Abnormal [facility] Osmolality Calc [Osmolality] 284 [facility] Potassium [Moles/Vol] 4 mmol/L 3.5 - 5.0 mmol/L [facility] Sodium [Moles/Vol] 136 mmol/L 135 - 145 mmol/L [facility] Urea nitrogen [Mass/Vol] 15 mg/dL 7 - 25 mg/d L [facility] Urea nitrogen/Creatinine [Mass ratio] 19 mg/mg [facility] Anion gap [Moles/Vol] 17 mmol/L Normal 7-17 [facility] Comment on above: Performed By: #### C MOE, NICK IPB #### U [facility] (DEFAULT) [address] [place] [address] Chloride [Moles/Vol] 104 mmol/L Normal 98-108 [facility] Comment on above: Performed By: #### C ERICKSON7, NICK, IPB #### [facility] (DEFAULT) [address] [place] [address] CO2 [Moles/Vol] 19 mmol/L Low 21-31 [facility] Comment on above: Performed By: #### Gi HMDaniel MGO, IPB #### U [facility] (DEFAULT) [address] [place] [address] Creatinine [Mass/Vol] 0.79 mg/dL Normal 0.70-1.30 [facility] Comment on above: Performed By: #### Gi HM7, MGO, IPB #### U [facility] (DEFAULT) [address] [place] [address] [id number] eGFR, CKD-EPI, Male > Normal >=60 [facility] Comment on above: Result Comment: Repo rted eGFR is based on the CKD-EPI 2020 equation using creatinine, age, and sex. Performed By: #### Gi ALMENDAREZ7 MGO, IPB #### Nunu [facility] (DEFAULT) [address] [place] [address] [phone] Glucose [Mass/Vol] 66 mg/dL Low 70-99 [facility] Comment on above: Performed By: #### Gi HMDaniel MGO, IPB #### U [facility] (DEFAULT) [address] [place] [address] [id number] Osmolality [Osmolality] 284 mosm/kg Normal 278-305 [facility] Comment on above: Performed By: #### Gi HM7, MGO, IPB #### U [facility] (DEFAULT) [address] [place] [address] 70886 Potassium [Moles/Vol] 4.0 mmol/L Normal 3.5-5.0 [facility] Comment on above: Performed By: #### Gi HM7, MGO, IPB #### U [facility] (DEFAULT) [address] [place] [address] 47532 Sodium [Moles/Vol] 136 mmol/L Normal 135-145 [facility] Comment on above: Performed By: #### Gi HM7, MGO, IPB #### U [facility] (DEFAULT) [address] [place] [address] 95873 Urea nitrogen [Mass/Vol] 15 mg/dL Normal 7-25 [facility] Comment on above: Performed By: #### C NICK ROSA, IPB #### U [facility] (DEFAULT) [address] [place] [address] 95256 Urea nitrogen/Creatinine [Mass ratio] 19 mg/mg Normal [facility] Comment on above: Performed By: #### C MOE MGO, IPB #### U [facility] (DEFAULT) [address] [place] [address] 18997 MAGNESIUMon 12-01-2024 Magnesium [Mass/Vol] 1.7 mg/dL 1.6 - 2 .6 mg/dL [facility] Magnesium [Mass/Vol] 1.7 mg/dL Normal 1.6-2.6 [facility] Comment on above: Performed By: #### Gi ROSA MGO, IPB #### U [facility] (DEFAULT) [address] [place] [address] [phone] No Panel Informationon 12-01 Interpretation and review of laboratory results Normal [facility] PHOSPHATE, INORGANICon 12-01 Phosphate [Mass/Vol] 2.8 mg/dL 2.2 - 4 .6 mg/dL [facility] Phosphorous 2.8 mg/dL Normal 2.2-4.6 [facility] Comment on above: Performed By: #### Gi ROSA MGO, IPB #### [facility] (DEFAULT) [address] [place] [address] [phone] RF Colon Views W contrast CO on 12-01-2024 IMPRESSION: 1. 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 Please correlate with recent sigmoidoscopy findings. 2. Diverticulosis. Drs. Meghna Allen and Misael Phoenix, were notified of results at the time of this dictation via [employer] Secure Chat, by YING Magaña. Examination performed by YING Magaña, under the direct supervision of Surjit West M.D., who was immediately available on site during the examination. I personally viewed and interpreted these images and I have reviewed and approved this report. OLOGY EXAM: XR FLUORO ENEMA, IOHEXOL, 12/01/2024 14:34 PM COMPARISON: A CT of the abdomen/pelvis from outside hospital on 11/29/2024. 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 L02.91:Abscess. TECHNICAL FACTORS: A balloon tipped soft rubber catheter was placed in the rectum. The catheter balloon was then inflated and a single contrast Omnipaque enema was then performed. YING Magaña perform the examination. Fluoroscopy Time: 1.2 min. FINDINGS: Preliminary film: The recreation engineer radiograph shows air and stool distention of the colon without dilatation. There is also air distention of the small bowel without dilatation. No pneumoperitoneum or pneumobilia. A left lower quadrant colostomy. There are surgical sutures within the pelvic inlet. Colon: Contrast is visualized moving in a retrograde fashion filling the Dhillon's pouch where extraluminal contrast, through the suture line, fills a contained cavity approximately measuring 4.3 cm craniocaudally x 5.7 cm in width in the AP projection and 4.4 cm craniocaudally x 3.3 cm in width in the lateral projection. No evidence of stricture or mass. No evidence of an annular lesion or extrinsic compression. There are multiple outpouchings throughout the pouch and is compatible with diverticuli. RADIOLOGY Surjit West MD - 12/01/2024 EXAM: XR FLUORO ENEMA, IOHEXOL, 12/01/2024 14:34 PM COMPARISON: A CT of the abdomen/pelvis from outside hospital on 11/29/2024. 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 L02.91:Abscess. TECHNICAL FACTORS: A balloon tipped soft rubber catheter was placed in the rectum. The catheter balloon was then inflated and a single contrast Omnipaque enema was then performed. YING Magaña perform the examination. Fluoroscopy Time: 1.2 min. FINDINGS: Preliminary film: The recreation engineer radiograph shows air and stool distention of the colon without dilatation. There is also air distention of the small bowel without dilatation. No pneumoperitoneum or pneumobilia. A left lower quadrant colostomy. There are surgical sutures within the pelvic inlet. Colon: Contrast is visualized moving in a retrograde fashion filling the Dhillon's pouch where extraluminal contrast, through the suture line, fills a contained cavity approximately measuring 4.3 cm craniocaudally x 5.7 cm in width in the AP projection and 4.4 cm craniocaudally x 3.3 cm in width in the lateral projection. No evidence of stricture or mass. No evidence of an annular lesion or extrinsic compression. There are multiple outpouchings throughout the pouch and is compatible with diverticuli. IMPRESSION IMPRESSION: 1. 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 Please correlate with recent sigmoidoscopy findings. 2. Diverticulosis. Drs. Meghna Allen and Misael Pohenix, were notified of results at the time of this dictation via [employer] Secure Chat, by YING Magaña. Examination performed by YING Magaña, under the direct supervision of Surjit West M.D., who was immediately available on site during the examination. I personally viewed and interpreted these images and I have reviewed and approved this report. [facility] Radiology Study observation (narrative) [facility] RF Colon Views W contrast CO Ordered By: Surjit West on 12-01-2024 [facility] XR FLUORO ENEMA, IOHEXOLon 0 12-01-2024 XR FLUORO ENEMA, IOHEXOL EXAM: XR FLUORO ENEMA, IOHEXOL, 12/01/2024 14:34 PM COMPARISON: A CT of the abdomen/pelvis from outside hospital on 11/29/2024. 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 L02.91:Abscess. TECHNICAL FACTORS: A balloon tipped soft rubber catheter was placed in the rectum. The catheter balloon was then inflated and a single contrast Omnipaque enema was then performed. YING Magaña perform the examination. Fluoroscopy Time: 1.2 min. FINDINGS: Preliminary film: The recreation engineer radiograph shows air and stool distention of the colon without dilatation. There is also air distention of the small bowel without dilatation. No pneumoperitoneum or pneumobilia. A left lower quadrant colostomy. There are surgical sutures within the pelvic inlet. Colon: Contrast is visualized moving in a retrograde fashion filling the Dhillon's pouch where extraluminal contrast, through the suture line, fills a contained cavity approximately measuring 4.3 cm craniocaudally x 5.7 cm in width in the AP projection and 4.4 cm craniocaudally x 3.3 cm in width in the lateral projection. No evidence of stricture or mass. No evidence of an annular lesion or extrinsic compression. There are multiple outpouchings throughout the pouch and is compatible with diverticuli. IMPRESSION: 1. 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 Please correlate with recent sigmoidoscopy findings. 2. Diverticulosis. Drs. Meghna Allen and Misael Phoenix, were notified of results at the time of this dictation via [employer] Secure Chat, by YING Magaña. Examination performed by YING Magaña, under the direct supervision of Surjit West M.D., who was immediately available on site during the examination. I personally viewed and interpreted these images and I have reviewed and approved this report. Normal [facility] ABORH TYPE RECONFIRMATIONon 11-30-2024 ABO/RH(D) TYPE Negative [facility] ABO/RH(D) TYPE Negative Normal [facility] Comment on above: Performed By: #### C NICK ROSA IPB #### [facility] (DEFAULT) [address] [place] [address] CALCIUMon 11-30-2024 Calcium [Mass/Vol] 8.7 mg/dL 8.6 - 10. 5 mg/dL [facility] Calcium [Mass/Vol] 8.7 mg/dL Normal 8.6-10.5 [facility] Comment on above: Performed By: #### C A, MGO, CHM7, IPB, TRANB, HFP #### [facility] (DEFAULT) [address] [address] CARDIAC RHYTHMon 11-30-2024 [facility] CBC AND ELECTRONIC DIFFon Basophils (Bld) [#/Vol] 0.04 10*3/uL 0.00 - 0.09 K/uL [facility] Basophils/100 WBC (Bld) 0.4 % [facility] Differential cell count method Nom (Bld) Electronic Differential [facility] Eosinophils (Bld) [#/Vol] 0.06 10*3/uL 0. 00 - 0.48 K/uL [facility] Eosinophils/100 WBC (Bld) 0.6 % [facility] Erythrocyte distribution width (RBC) [Ratio] 16.1 % High 10.9 - 14.3 % [facility] Hematocrit (Bld) [Volume fraction] 38.4 % Low 39.6 - 48.8 % [facility] Hemoglobin (Bld) [Mass/Vol] 12.9 g/dL Low 13.4 - 16.8 g/dL [facility] Immature granulocytes (Bld) [#/Vol] 0.1 10*3/uL High NINF - 0.07 K/uL [facility] Immature granulocytes/100 WBC (Bld) 1 % [facility] Interpretation and review of laboratory results Abnormal [facility] Lymphocytes (Bld) [#/Vol] 0.78 10*3/uL Low 0. 83 - 3.57 K/uL [facility] Lymphocytes/100 WBC (Bld) 7.9 % [facility] MCH (RBC) [Entitic mass] 31.4 pg 26. 1 - 33.3 pg [facility] MCHC (RBC) [Mass/Vol] 33.6 g/dL 31.9 - 36.5 g/dL [facility] MCV (RBC) [Entitic vol] 93.4 fL 79.0 - 94.5 fL [facility] Monocytes (Bld) [#/Vol] 0.66 10*3/uL 0.24 - 0.93 K/uL [facility] Monocytes/100 WBC (Bld) 6.7 % O [facility] Neutrophils (Bld) [#/Vol] 8.26 10*3/uL High 1. 57 - 6.19 K/uL [facility] Nucleated RBC/100 WBC (Bld) [Ratio] 0 % NINF [facility] Platelet mean volume (Bld) [Entitic vol] 11.7 fL 8.7 - 12.3 fL [facility] Platelets (Bld) [#/Vol] 248 10*3/uL 146 - 337 K/uL [facility] RBC (Bld) [#/Vol] 4.11 10*6/uL Low [facility] Segmented neutrophils/100 WBC (Bld) 83.4 % [facility] WBC (Bld) [#/Vol] 9.9 10*3/uL 3.73 - 10. 10 K/uL [facility] Basophils (Bld) [#/Vol] 0.04 10*3/uL Normal 0.00-0.09 [facility] Comment on above: Performed By: #### C NICK ROSA IPB #### [facility] (DEFAULT) [address] [place] [address] [phone] Basophils/100 WBC (Bld) 0.4 % Normal O [facility] Comment on above: Performed By: #### NICK NOLASCO IPB #### [facility] (DEFAULT) [address] [address] DIFF STATUS Electronic Differential Normal [facility] Comment on above: Performed By: #### NICK NOLASCO IPB #### [facility] (DEFAULT) [address] [address] Eosinophils (Bld) [#/Vol] 0.06 10*3/uL Normal 0.00-0.4 8 [facility] Comment on above: Performed By: #### NICK NOLASCO, IPB #### [facility] (DEFAULT) [address] [place] [address] 21498 Eosinophils/100 WBC (Bld) 0.6 % Normal [facility] Comment on above: Performed By: #### NICK NOLASCO, IPB #### Nunu [facility] (DEFAULT) [address] [place] [address] 06881 Hematocrit (Bld) [Volume fraction] 38.4 % Low 39.6-48.8 [facility] Comment on above: Performed By: #### NICK NOLASCO, IPB #### [facility] (DEFAULT) [address] [place] [address] 41629 Hemoglobin (Bld) [Mass/Vol] 12.9 g/dL Low 13.4-16.8 [facility] Comment on above: Performed By: #### NICK NOLASCO, IPB #### [facility] (DEFAULT) [address] [place] [address] 48304 Immature Grans % 1.0 % Normal [facility] Comment on above: Performed By: #### NICK NOLASCO, IPB #### [facility] (DEFAULT) [address] [place] [address] 79391 Immature Grans Absolute 0.10 K/uL High <=0.07 O [facility] Comment on above: Performed By: #### NICK NOLASCO, IPB #### [facility] (DEFAULT) [address] [place] [address] 53809 Lymphocytes (Bld) [#/Vol] 0.78 10*3/uL Low 0.83-3.5 7 [facility] Comment on above: Performed By: #### NICK NOLASCO, IPB #### [facility] (DEFAULT) [address] [place] [address] 99611 Lymphocytes/100 WBC (Bld) 7.9 % Normal [facility] Comment on above: Performed By: #### Gi HM7 MGO, IPB #### U [facility] (DEFAULT) [address] [place] [address] 34160 MCV (RBC) [Entitic vol] 93.4 fL Normal 79.0-94.5 O [facility] Comment on above: Performed By: #### Gi HM7, MGO, IPB #### U [facility] (DEFAULT) [address] [place] [address] 23825 Mean Cell Hgb 31.4 pg Normal 26.1-33.3 [facility] Comment on above: Performed By: #### Gi HM7, MGO, IPB #### Nunu [facility] (DEFAULT) [address] [place] [address] 73685 Mean Cell Hgb Conc 33.6 g/dL Normal 31.9-36.5 [facility] Comment on above: Performed By: #### Gi HM7 MGO, IPB #### [facility] (DEFAULT) [address] [place] [address] 21269 Monocytes (Bld) [#/Vol] 0.66 10*3/uL Normal 0.24-0.93 [facility] Comment on above: Performed By: #### Gi HM7, MGO, IPB #### U [facility] (DEFAULT) [address] [place] [address] 90167 Monocytes/100 WBC (Bld) 6.7 % Normal O [facility] Comment on above: Performed By: #### Gi HM7, MGO, IPB #### [facility] (DEFAULT) [address] [place] [address] 00022 Nucleated RBC 0.0 /100 WBC Normal <=0.2 [facility] Comment on above: Performed By: #### Gi HM7, MGO, IPB #### U [facility] (DEFAULT) [address] [place] [address] 59748 Platelet mean volume (Bld) [Entitic vol] 11.7 fL Normal 8.7-12.3 [facility] Comment on above: Performed By: #### NICK NOLASCO, IPB #### Nunu [facility] (DEFAULT) [address] [place] [address] 18436 Platelets (Bld) [#/Vol] 248 10*3/uL Normal 146-337 [facility] Comment on above: Performed By: #### NICK NOLASCO, IPB #### Nunu [facility] (DEFAULT) [address] [place] [address] 57503 RBC (Bld) [#/Vol] 4.11 10*6/uL Low 4.38-5.83 [facility] Comment on above: Performed By: #### NICK NOLASCO, IPB #### Nunu [facility] (DEFAULT) [address] [place] [address] 80843 RBC Distribution 16.1 % High 10.9-14.3 [facility] Comment on above: Performed By: #### NICK NOLASCO, IPB #### Nunu [facility] (DEFAULT) [address] [place] [address] 31082 Segs + Bands Auto 83.4 % Normal [facility] Comment on above: Performed By: #### NICK NOLASCO, IPB #### Nunu [facility] (DEFAULT) [address] [place] [address] 78284 Segs + Bands,Absolute Auto 8.26 K/uL High 1.57-6.19 [facility] Comment on above: Performed By: #### NICK NOLASCO, IPB #### Nunu [facility] (DEFAULT) [address] [place] [address] 46691 WBC (Bld) [#/Vol] 9.90 10*3/uL Normal 3.73-10.10 [facility] Comment on above: Performed By: #### C HM7, MGO, IPB #### [facility] (DEFAULT) [address] [place] [address] CHEM 7 (LYTES,BUN,CREA,GLUC) on 11-30-2024 Anion gap [Moles/Vol] 15 mmol/L 7 - 17 mmol/L [facility] Chloride [Moles/Vol] 103 mmol/L 98 - 10 8 mmol/L [facility] CO2 [Moles/Vol] 24 mmol/L 21 - 31 mmol/L [facility] Creatinine [Mass/Vol] 0.89 mg/dL 0.70 - 1.30 mg/dL [facility] eGFR, CKD-EPI, Male 88 - PINF [facility] Comment on above: Reported eGFR is bas ed on the CKD-EPI 2020 equation using creatinine, age, and sex. Glucose [Mass/Vol] 90 mg/dL 70 - 99 mg/dL [facility] Osmolality Calc [Osmolality] 289 [facility] Potassium [Moles/Vol] 4 mmol/L 3.5 - 5.0 mmol/L [facility] Sodium [Moles/Vol] 138 mmol/L 135 - 145 mmol/L [facility] Urea nitrogen [Mass/Vol] 14 mg/dL 7 - 25 mg/d L [facility] Urea nitrogen/Creatinine [Mass ratio] 16 mg/mg [facility] Anion gap [Moles/Vol] 15 mmol/L Normal 7-17 [facility] Comment on above: Performed By: #### C A, MGO, CHM7, IPB, TRANB, HFP #### [facility] (DEFAULT) [address] [place] [address] Chloride [Moles/Vol] 103 mmol/L Normal 98-108 [facility] Comment on above: Performed By: #### C A, MGO, CHM7, IPB, TRANB, HFP #### [facility] (DEFAULT) [address] [place] [address] CO2 [Moles/Vol] 24 mmol/L Normal 21-31 [facility] Comment on above: Performed By: #### C A, MGO, CHM7, IPB, TRANB, HFP #### [facility] (DEFAULT) [address] [place] [address] 99156 Creatinine [Mass/Vol] 0.89 mg/dL Normal 0.70-1.30 [facility] Comment on above: Performed By: #### C A, MGO, CHM7, IPB, TRANB, HFP #### [facility] (DEFAULT) [address] [place] [address] 51330 GFR/1.73 sq M.predicted among non-blacks MDRD (S/P/Bld) [Vol rate/Area] 88 mL/min/{1.73_m2} Normal >=60 [facility] Comment on above: Result Comment: Repo rted eGFR is based on the CKD-EPI 2020 equation using creatinine, age, and sex. Performed By: #### C A, MGO, CHM7, IPB, TRANB, HFP #### [facility] (DEFAULT) [address] [place] [address] 92299 Glucose [Mass/Vol] 90 mg/dL Normal 70-99 [facility] Comment on above: Performed By: #### C A, MGO, CHM7, IPB, TRANB, HFP #### [facility] (DEFAULT) [address] [place] [address] 50129 Osmolality [Osmolality] 289 mosm/kg Normal 278-305 [facility] Comment on above: Performed By: #### C A, MGO, CHM7, IPB, TRANB, HFP #### [facility] (DEFAULT) [address] [place] [address] 45319 Potassium [Moles/Vol] 4.0 mmol/L Normal 3.5-5.0 [facility] Comment on above: Performed By: #### C A, MGO, CHM7, IPB, TRANB, HFP #### [facility] (DEFAULT) [address] [place] [address] 71337 Sodium [Moles/Vol] 138 mmol/L Normal 135-145 [facility] Comment on above: Performed By: #### C A, MGO, CHM7, IPB, TRANB, HFP #### U [facility] (DEFAULT) [address] [place] [address] Urea nitrogen [Mass/Vol] 14 mg/dL Normal 7-25 [facility] Comment on above: Performed By: #### C A, MGO, CHM7, IPB, TRANB, HFP #### U [facility] (DEFAULT) [address] [place] [address] 49467 Urea nitrogen/Creatinine [Mass ratio] 16 mg/mg Normal [facility] Comment on above: Performed By: #### C A, MGO, CHM7, IPB, TRANB, HFP #### [facility] (DEFAULT) [address] [place] [address] 15639 HEPATIC FUNCTION PANELOrdere d By: Kristian Maxwell on 11-30-2024 Albumin [Mass/Vol] 3.8 g/dL 3.5 - 5.0 g/dL [facility] ALP [Catalytic activity/Vol] 66 U/L 32 - 126 U/L [facility] ALT [Catalytic activity/Vol] U/L Low 10 - 52 U/L [facility] AST [Catalytic activity/Vol] 12 U/L 10 - 39 U/L [facility] Bilirubin [Mass/Vol] 1.8 mg/dL High NINF - 1.5 mg/dL [facility] Bilirubin.direct [Mass/Vol] 0.4 mg/dL High NINF - 0.3 mg/dL [facility] Interpretation and review of laboratory results Abnormal [facility] Protein [Mass/Vol] 6.7 g/dL 6.4 - 8.3 g/dL [facility] HEPATIC FUNCTION PANELon Albumin [Mass/Vol] 3.8 g/dL Normal 3.5-5.0 [facility] Comment on above: Performed By: #### Gi HM7, MGO, IPB #### [facility] (DEFAULT) [address] [place] [address] 42251 ALP [Catalytic activity/Vol] 66 U/L Normal 32-126 [facility] Comment on above: Performed By: #### Gi HM7, MGO, IPB #### [facility] (DEFAULT) [address] [place] [address] 40286 ALT < Low 10-52 [facility] Comment on above: Performed By: #### Gi HM7, MGO, IPB #### [facility] (DEFAULT) [address] [place] [address] 67504 AST [Catalytic activity/Vol] 12 U/L Normal 10-39 [facility] Comment on above: Performed By: #### Gi HM7, MGO, IPB #### [facility] (DEFAULT) [address] [place] [address] 67921 Bilirubin [Mass/Vol] 1.8 mg/dL High <1.5 [facility] Comment on above: Performed By: #### Gi ROSA, MGO, IPB #### [facility] (DEFAULT) [address] [place] [address] 83205 Bilirubin.indirect [Mass/Vol] 0.4 mg/dL High <0.3 [facility] Comment on above: Performed By: #### Gi HM7, MGO, IPB #### [facility] (DEFAULT) [address] [place] [address] 99098 Protein [Mass/Vol] 6.7 g/dL Normal 6.4-8.3 [facility] Comment on above: Performed By: #### Gi HM7, MGO, IPB #### [facility] (DEFAULT) [address] [place] [address] 36980 LACTATE, BLOODOrdered By: Nicky Kirkland on 11-30-2024 Interpretation and review of laboratory results Normal [facility] Lactate [Moles/Vol] 0.9 mmol/L 0.5 - 1. 6 mmol/L [facility] LACTATE, BLOODon 11-30-2024 Lactate, Blood 0.9 mmol/L Normal 0.5-1.6 [facility] Comment on above: Performed By: #### L ACT #### [facility] (DEFAULT) [address] [place] [address] MAGNESIUMon 11-30-2024 Magnesium [Mass/Vol] 1.9 mg/dL 1.6 - 2 .6 mg/dL [facility] Magnesium [Mass/Vol] 1.9 mg/dL Normal 1.6-2.6 [facility] Comment on above: Performed By: #### C A, MGO, CHM7, IPB, TRANB, HFP #### [facility] (DEFAULT) [address] [place] [address] [phone] No Panel Informationon 11-30 Interpretation and review of laboratory results Normal [facility] PHOSPHATE, INORGANICon 11-30 Phosphate [Mass/Vol] 3.2 mg/dL 2.2 - 4 .6 mg/dL [facility] Phosphorous 3.2 mg/dL Normal 2.2-4.6 [facility] Comment on above: Performed By: #### C A, MGO, CHM7, IPB, TRANB, HFP #### [facility] (DEFAULT) [address] [place] [address] [phone] PREALBUMINon 11-30-2024 Interpretation and review of laboratory results Abnormal [facility] Prealbumin [Mass/Vol] 16 mg/dL Low 17 - 3 4 mg/dL [facility] Prealbumin [Mass/Vol] 16 mg/dL Low 17-[address] [facility] Comment on above: Performed By: #### C HM7, MGO, IPB #### [facility] (DEFAULT) [address] [place] [address] [phone] PT,INR,PTTon 11-30-2024 aPTT Coag (PPP) [Time] 32.4 s [facility] INR Coag (Bld) [Relative time] 1.2 {INR} High 0.9 - 1.1 [facility] Interpretation and review of laboratory results Abnormal [facility] PT Coag (PPP) [Time] 15.5 s High [facility] aPTT Coag (Bld) [Time] 32.4 s Normal 24.0-34.3 [facility] Comment on above: Performed By: #### P TPTT #### [facility] (DEFAULT) [address] [place] [address] [id number] INR Coag (PPP) [Relative time] 1.2 {INR} High 0.9-1.1 [facility] Comment on above: Performed By: #### P TPTT #### [facility] (DEFAULT) [address] [place] [address] 53691 PT Coag (PPP) [Time] 15.5 s High 11.9-14.2 [facility] Comment on above: Performed By: #### P TPTT #### [facility] (DEFAULT) [address] [place] [address] 31332 TRANSFERRIN/IRON BINDINGon 0 11-30-2024 Interpretation and review of laboratory results Abnormal [facility] Iron binding capacity [Mass/Vol] 186 Low [facility] Transferrin [Mass/Vol] 149 mg/dL Low 200 - 400 mg/dL [facility] Total Iron Binding Capacity 186 mcg/dL Low 250-425 [facility] Comment on above: Performed By: #### C A, MGO, CHM7, IPB, TRANB, HFP #### [facility] (DEFAULT) [address] [place] [address] 04261 Transferrin [Mass/Vol] 149 mg/dL Low 200-400 [facility] Comment on above: Performed By: #### C A, MGO, CHM7, IPB, TRANB, HFP #### [facility] (DEFAULT) [address] [place] [address] TYPE AND SCREENon 11-30-2024 ABO/RH(D) TYPE Negative [facility] Specimen Expiration 12/03/2024 23:59 [facility] ABO/RH(D) TYPE Negative Normal [facility] Comment on above: Performed By: #### C HM7, MGO, IPB #### [facility] (DEFAULT) [address] [place] [address] Specimen Expiration 12/03/2024 23:59 Normal [facility] Comment on above: Performed By: #### C HM7, MGO, IPB #### [facility] (DEFAULT) [address] [place] [address] 06268 Abdomen/Pelvis W IV Cont ONL Yon 11-29-2024 Abdomen/Pelvis W IV Cont ONLY [facility] Imaging Services [address] [place] [address] Abdomen/Pelvis W IV Cont ONLY MR#: [id number] Acct: [id number] Name: MAYNOR VIDES III Rep #: [id number] : 1945 M 79 From: Michelle Mitchell MD PCP: Dr. Sarika Montaño MD Status: [facility] ER Study: Abdomen/Pelvis W IV Cont ONLY Date of Exam: Exam# [id number] Ordering Dr: Matilde Brantley MD PROCEDURE: ABDOMEN/PELVIS W IV CONT ONLY REASON FOR EXAM: Lower abdominal pain TECHNIQUE: Abdomen and pelvis CT with intravenous contrast. Multiplanar reconstructions were performed. COMPARISON: 08/13/2024 FINDINGS: Lower chest: Unremarkable. Liver: A couple of scattered hepatic cysts are present which appear stable from the previous exam. Biliary/gallbladder: Unremarkable. Pancreas: Unremarkable. Spleen: Unremarkable. Adrenal glands: Unremarkable. Kidneys: A couple of cysts are present dominant cyst in the upper pole left kidney measuring 6.7 cm. Gastrointestinal/per itoneum: There is a fluid and gas collection in the mid pelvis measuring 5.3 x 3.2 cm, adjacent to the stump of the Dhillon pouch. Diverticulosis is present throughout this region. Postoperative changes are present of a diverting colostomy in the left lower quadrant and small-bowel resection. A parastomal hernia is present measuring 6.2 cm containing loops of small bowel. Diastasis of the rectus sheath is noted. There are 2 duodenal diverticula measuring up to 2 point cm.The appendix is not discretely visualized.There is a large spine smooth throughout colon. Vascular: Unhw-qb-unpkhvyg scattered atherosclerotic calcifications are present. Lymph nodes: No enlarged lymph nodes by CT size criteria. Pelvic organs: Unremarkable. Bladder: There is focal bladder wall thickening at the dome of the bladder, which is adjacent to the extraluminal fluid and gas collection Bones: Moderate multilevel degenerative changes are present visualized spine. Soft tissues: Unremarkable. CT/Abdomen/Pelvis W IV Cont ONLY IMPRESSION: 1. Fluid and gas collection in the central pelvis, likely representing an abscess due to dehiscence of the anastomosis at the rectal stump. 2. Focal bladder wall thickening at the dome of the bladder, which is likely due to reactive changes from the adjacent abscess. A bladder lesion is also a possible differential consideration. Cystoscopy can be considered for further evaluation. 3. Postoperative changes of a diverting colostomy with a Alicia pouch and a partial small bowel resection. A parastomal hernia is present containing loops of small bowel. 4. Large volume of stool throughout the colon, including rectal stump. 5. 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 [facility] CC: Dr. Matilde Brantley MD; Dr. Sarika Montaño MD Station Captain: Signed Normal [facility] Absolute neutrophil countOrd ered By: Matilde Brantley on 11-29-2024 Neutrophils (Bld) [#/Vol] 9.6 10*3/uL High 2.0-7.[address] [facility] Albumin to globulin ratioOrd ered By: Matilde Brantley on 11-29-2024 Albumin/Globulin [Mass ratio] 0.9 {ratio} 0.9-2.[address] [facility] Basophil percentageOrdered B y: Matilde Brantley on 11-29-2024 Basophils/100 WBC (Bld) 0.3 % 0-1 [facility] Bilirubin, totalOrdered By: Matilde Brantley on 11-29-2024 Bilirubin [Mass/Vol] 2.10 mg/dL High 0.20-1.00 [facility] Comment on above: For patients on eltr ombopag therapy, use of Dimension Rochert TBIL is not recommended. Blood urea nitrogen (BUN)/cr eatinine ratioOrdered By: Matilde Brantley on 11-29-2024 Urea nitrogen/Creatinine [Mass ratio] 13.4 mg/mg 10-[address] [facility] CBC W/Diff, Automatedon Absolute Lymph 1.00 X10 3/uL Normal 0.83-4.[address] [facility] Comment on above: Performed By: #### L 100.0100, L500.4050 ####[facility] [address] [place], [address] Absolute Neut 9.6 X10 3/uL High 2.0-7.[address] [facility] Comment on above: Performed By: #### L 100.0100, L500.4050 ####[facility] [address] [place], [address] Basophils/100 WBC (Bld) 0.3 % Normal 0-1 [facility] Comment on above: Performed By: #### L 100.0100, L500.4050 ####[facility] [address] [place], [address] Eosinophils/100 WBC (Bld) 0.3 % Normal 0-[address] [facility] Comment on above: Performed By: #### L 100.0100, L500.4050 ####[facility] [address] [place], [address] Erythrocyte distribution width (RBC) [Ratio] 16.4 % High 11.6-14.[address] [facility] Comment on above: Performed By: #### L 100.0100, L500.4050 ####[facility] [address] [place], [address] Hematocrit (Bld) [Volume fraction] 39.9 % Low 40-[address] [facility] Comment on above: Performed By: #### L 100.0100, L500.4050 ####[facility] [address] [place], [address] Hemoglobin (Bld) [Mass/Vol] 13.4 g/dL Normal 13.0-16.[address] [facility] Comment on above: Performed By: #### L 100.0100, L500.4050 ####[facility] [address] [place], [address] IG% 1.200 High 0.0-0.[address] [facility] Comment on above: Result Comment: IG% - Immature Granulocytes (promyelocytes, myelocytes and metamyelocytes) > 1% indicates that a LEFT SHIFT is Present. Performed By: #### L 100.0100, L500.4050 ####[facility] [address] [place], [address] Lymphocytes/100 WBC (Bld) 8.7 % Low 19-[address] [facility] Comment on above: Performed By: #### L 100.0100, L500.4050 ####[facility] [address] [place], [address] MCH (RBC) [Entitic mass] 32.2 pg High 27.0-32.[address] [facility] Comment on above: Performed By: #### L 100.0100, L500.4050 ####[facility] [address] [place], [address] MCHC (RBC) [Mass/Vol] 33.6 g/dL Normal 32-36 [facility] Comment on above: Performed By: #### L 100.0100, L500.4050 ####[facility] [address] [place], [address] MCV (RBC) [Entitic vol] 95.9 fL High 80-94 [facility] Comment on above: Performed By: #### L 100.0100, L500.4050 ####[facility] [address] [place], [address] Monocytes/100 WBC (Bld) 6.0 % Normal 0-10 [facility] Comment on above: Performed By: #### L 100.0100, L500.4050 ####[facility] [address] [place], [address] Neutrophils/100 WBC (Bld) 83.5 % High 47-[address] [facility] Comment on above: Performed By: #### L 100.0100, L500.4050 ####[facility] [address] [place], [address] Nucleated RBC (Bld) [#/Vol] 0 10*3/uL Normal 0-[address] [facility] Comment on above: Performed By: #### L 100.0100, L500.4050 ####[facility] [address] [place], [address] Platelet mean volume (Bld) [Entitic vol] 11.2 fL Normal 6.2-12.[address] [facility] Comment on above: Performed By: #### L 100.0100, L500.4050 ####[facility] [address] [place], [address] Platelets (Bld) [#/Vol] 267 10*3/uL Normal 150-[address] [facility] Comment on above: Performed By: #### L 100.0100, L500.4050 ####[facility] [address] [place], [address] RBC (Bld) [#/Vol] 4.16 10*6/uL Low 4.6-6.2 [facility] Comment on above: Performed By: #### L 100.0100, L500.4050 ####[facility] [address] [place], [address] RDW SD 58.2 fl High 35.1-43.[address] [facility] Comment on above: Performed By: #### L 100.0100, L500.4050 ####[facility] [address] [place], [address] WBC (Bld) [#/Vol] 11.5 10*3/uL High 4.4-11.0 [facility] Comment on above: Performed By: #### L 100.0100, L500.4050 ####[facility] [address] [place], [address] Carbon dioxide measurementOr dered By: Matilde Brantley on 11-29-2024 CO2 [Moles/Vol] 28.0 mmol/L 21.0-32.[address] [facility] Chloride measurementOrdered By: Matilde Brantley on 11-29-2024 Chloride [Moles/Vol] 100 mmol/L 98-107 [facility] Comprehensive Metabolic Prof ilon 11-29-2024 Albumin [Mass/Vol] 3.5 g/dL Normal 3.2-5.0 [facility] Comment on above: Performed By: #### L 100.0100, L500.4050 ####[facility] [address] [place], [address] Albumin/Globulin [Mass ratio] 0.9 {ratio} Normal 0.9-2.[address] [facility] Comment on above: Performed By: #### L 100.0100, L500.4050 ####[facility] [address] [place], [address] ALK P 83 U/L Normal 45-[address] [facility] Comment on above: Performed By: #### L 100.0100, L500.4050 ####[facility] [address] [place], [address] ALT [Catalytic activity/Vol] 8 U/L Low 16-[address] [facility] Comment on above: Performed By: #### L 100.0100, L500.4050 ####[facility] [address] [place], [address] AST [Catalytic activity/Vol] 8 U/L Low 15-[address] [facility] Comment on above: Performed By: #### L 100.0100, L500.4050 ####[facility] [address] [place], [address] Bilirubin [Mass/Vol] 2.10 mg/dL High 0.20-1.00 [facility] Comment on above: Result Comment: For patients on eltrombopag therapy, use of Dimension Rochert TBIL is not recommended. Performed By: #### L 100.0100, L500.4050 ####[facility] [address] [place], [address] BUN/CRE 13.4 RATIO Normal 10-[address] [facility] Comment on above: Performed By: #### L 100.0100, L500.4050 ####[facility] [address] [place], [address] CA,Total 8.9 mg/dL Normal 8.5-10.[address] [facility] Comment on above: Performed By: #### L 100.0100, L500.4050 ####[facility] [address] [place], [address] Chloride [Moles/Vol] 100 mmol/L Normal 98-107 [facility] Comment on above: Performed By: #### L 100.0100, L500.4050 ####[facility] [address] [place], [address] CO2 [Moles/Vol] 28.0 mmol/L Normal 21.0-32.[address] [facility] Comment on above: Performed By: #### L 100.0100, L500.4050 ####[facility] [address] [place], [address] Creatinine [Mass/Vol] 1.12 mg/dL Normal 0.70-1.30 [facility] Comment on above: Result Comment: The validity of the calculated GFR GFRAA in patients over 70 years has not been determined. Clinical correlation is essential. Performed By: #### L 100.0100, L500.4050 ####[facility] [address] [place], [address] ECRCL 53.08 ml/min Normal [facility] Comment on above: Performed By: #### L 100.0100, L500.4050 ####[facility] [address] [place], [address] EST GFR - AA 82 mL/min Normal >[address] [facility] Comment on above: Result Comment: Afri can Guyanese GFR Calc Performed By: #### L 100.0100, L500.4050 ####[facility] [address] [place], [address] GAP 8 Normal 5-[address] [facility] Comment on above: Performed By: #### L 100.0100, L500.4050 ####[facility] [address] [place], [address] GFR/1.73 sq M.predicted among non-blacks MDRD (S/P/Bld) [Vol rate/Area] 67 mL/min/{1.73_m2} Normal >60 [facility] Comment on above: Result Comment: Non- GFR Calc Performed By: #### L 100.0100, L500.4050 ####[facility] [address] [place], [address] Globulin (S) [Mass/Vol] 4.0 g/dL Normal 2.2-4.2 [facility] Comment on above: Performed By: #### L 100.0100, L500.4050 ####[facility] [address] [place], [address] Glucose [Mass/Vol] 112 mg/dL High 74-106 [facility] Comment on above: Result Comment: Fast ing Glucose result from 100 to 125 mg/dL suggests IMPAIRED HOMEOSTASIS per A.D.A. criteria. Performed By: #### L 100.0100, L500.4050 ####[facility] [address] [place], [address] Potassium [Moles/Vol] 3.8 mmol/L Normal 3.5-5.1 [facility] Comment on above: Performed By: #### L 100.0100, L500.4050 ####[facility] [address] [place], [address] Sodium [Moles/Vol] 136 mmol/L Normal 136-145 [facility] Comment on above: Performed By: #### L 100.0100, L500.4050 ####[facility] [address] [place], [address] T PROT 7.5 g/dL Normal 6.4-8.[address] [facility] Comment on above: Performed By: #### L 100.0100, L500.4050 ####[facility] [address] [place], [address] Urea nitrogen [Mass/Vol] 15 mg/dL Normal 7-[address] [facility] Comment on above: Performed By: #### L 100.0100, L500.4050 ####[facility] [address] [place], [address] Emergency Department Summary on 11-29-2024 Emergency Department Summary [facility] Medical Records Department [address] [place] [address] Emergency Department Summary 11/29/24 MR#: [id number] Acct: [id number] Name: MAYNOR VIDES III Rep #: [id number] : 1945 79 From: Matilde Brantley MD PCP: Dr. Sarika Montaño MD Status:REG ER Location: ED HPI HPI - GI History of Present Illness Chief Complaint: Abd Pain Narrative Narrative: 79-year-old male past medical history of Parkinson disease presents with his daughter because of low to no output from his ostomy for the last 2 days. He relates history that he had colectomy approximately [address] Kirkland for twisted bowel. Over the last 2 days, he has noted no output from his ostomy. He may have had a small bowel movement with a small amount of air this morning. He denies any fevers or chills, no nausea or vomiting. He also complains of lower abdominal pain. No dysuria or hematuria. No exacerbating or alleviating factors. [facility] Medical History Bilateral inguinal hernia Incisional hernia of anterior abdominal wall without obstruction or gangrene History of intestinal obstruction Wound dehiscence, surgical BPH (benign prostatic hyperplasia) Debility Hypertension CKD (chronic kidney disease), stage II Parkinson disease Home Medications ???Medication ???Instructions ???Recorded ???Last Taken ???Type amantadine HCl 100 mg capsule 100 mg PO DAILY hill 12/04/2303/13 08:15 History food supplemt, lactose-reduced 120 ml PO 4X/DAY nutrition #237 mL 12/24/23 12/24/23 13:05 Rx 0.08 gram-1.5 kcal/mL oral liquid (Ensure Plus High Protein) carbidopa 25 mg-levodopa 100 mg 2 tab PO 0800 #0 tabs 01/16/24 Unk nown Rx tablet carbidopa ER 50 mg-levodopa 200 mg 1 tab PO QHS #0 tabs 01/16/24 Un known Rx tablet,extended release carboxymethylcellulo se sodium 0.5 1 drp ophthalmic (eye) Q6H PRN CO N 01/16/24 Unknown Rx % eye drops (Refresh Tears) DRY EYES #0 mL melatonin 10 mg sublingual tablet 5 mg (1/2 x 10 mg) PO QHS PRN Unknown Rx Insomnia #0 tabs sennosides 8.6 mg-docusate sodium 2 tab PO BID #0 tabs 01/16/24 Unk nown Rx 50 mg tablet (Stool Softener-Stimulant Laxative) sodium chloride 0.65 % nasal spray 1 spray NASAL BID PRN PRN NASAL 01/16/24 Unknown Rx aerosol (Deep Sea Nasal) DRYNESS #0 mL hydrochlorothiazide 25 mg tablet 12.5 mg PO DAILY 04/24/24 Unknown History aspirin 81 mg tablet,delayed 81 mg PO DAILY 11/29/24 Unknown Hi story release (Adult Aspirin Regimen) carbidopa 25 mg-levodopa 100 mg 2 tab PO TID 11/29/24 Unknown Hist ory tablet Allergy/AdvReac Type Severity Reaction Status Date / Time No Known Allergies Allergy Verified 07/22/24 14:18 Family History Mother Heart disease Father Heart disease Surgical History History of intestinal surgery History of colostomy History of colectomy History of tonsillectomy and adenoidectomy Social History household members: none Smoking Status: Never smoker alcohol intake: never substance use type: does not use ROS ROS ED ROS Narrative Constitutional: No fever, no chills. HEENT: No sore throat. No neck pain. No rhinorrhea. Cardiovascular: No chest pain. No palpitations. No pedal edema. Respiratory: No cough, no shortness of breath. Abdominal: Positive bilateral lower abdominal pain. No nausea. No vomiting. No output from ostomy, including air. Genitourinary: No dysuria. No hematuria. Neurologic: No headaches. No dizziness. No lightheadedness. EXAM Physical Exam Narrative Exam Narrative: Afebrile. Vital signs noted. Nontoxic-appearing. Cardiovascular examination feels a regular rate and rhythm. Lungs are clear to auscultation bilaterally. Abdomen is soft with decreased bowel sounds. No guarding or rebound. Positive ostomy without air or feculent material contained within. Neurological examination shows him moving all his extremities and able to transfer from standing to cot, but consistent with Parkinson. Const Vital Signs: 11/29/24 14:30 11/29/24 16:30 11/29/24 18:02 Temperature 97.6 F L Temperature Source Temporal Pulse Rate 80 89 81 Respiratory Rate 20 H Blood Pressure 146/80 H 171/89 H 131/85 H Blood Pressure Mean 102 116 100 Pulse Ox 98 98 96 Oxygen Delivery Method Room Air Room Air Room Air 11/29/24 19:45 11/29/24 20:52 11/29/24 21:51 Temperature Temperature Source Pulse Rate 84 78 80 Respiratory Rate 18 18 18 Blood Pressure 145/84 H 143/82 H 132/76 H Blood Pressure Mean 104 102 94 Pulse Ox 98 97 96 Oxygen Delivery Method Room Air Mile (more content not included)... Normal [facility] Eosinophil percentageOrdered By: Matilde Brantley on 11-29-2024 Eosinophils/100 WBC (Bld) 0.3 % 0-[address] [facility] Erythrocyte distribution wid th (RBC) [Ratio]Ordered By: Matilde Brantley on 11-29-2024 Erythrocyte distribution width (RBC) [Entitic vol] 58.2 fL High 35.1-43.9 [facility] Erythrocyte distribution wid th ratioOrdered By: Matilde Brantley on 11-29-2024 Erythrocyte distribution width (RBC) [Ratio] 16.4 % High 11.6-14.[address] [facility] Estimated glomerular filtrat ion rate (GFR) AmericanOrdered By: Matilde Brantley on 11-29-2024 Estimated GFR (MDRD) Amer 82 mL/min >[address] [facility] Comment on above: GFR Calc Estimation of creatinine fe aranceOrdered By: Matilde Brantley on 11-29-2024 Estimated Creatinine Clearance Calc 53.08 ml/min [facility] Glomerular filtration rate ( GFR) estimationOrdered By: Matilde Brantley on 11-29-2024 Estimated GFR (MDRD) Non-Af Amer 67 mL/min >[address] [facility] Comment on above: Non- GFR Calc Glucose measurementOrdered B y: Matilde Brantley on 11-29-2024 Glucose [Mass/Vol] 112 mg/dL High 74-106 [facility] Comment on above: Fasting Glucose resu lt from 100 to 125 mg/dL suggests IMPAIRED HOMEOSTASIS per A.D.A. criteria. Hematocrit Auto (Bld) [Volum e fraction]Ordered By: Matilde Brantley on 11-29-2024 Hematocrit (Bld) [Volume fraction] 39.9 % Low 40-[address] [facility] Hemoglobin measurementOrdere d By: Matilde Brantley on 11-29-2024 Hemoglobin (Bld) [Mass/Vol] 13.4 g/dL 13.0-16.[address] [facility] Immature granulocytes/100 WB C Auto (Bld)Ordered By: Matilde Brantley on 11-29-2024 Immature granulocytes/100 WBC (Bld) 1.200 % High 0.0-0.[address] [facility] Comment on above: IG% - Immature Granu locytes (promyelocytes, myelocytes and metamyelocytes) > 1% indicates that a LEFT SHIFT is Present. Laboratory - Chemistry and C hemistry - challengeOrdered By: Matilde Brantley on 11-29-2024 AST [Catalytic activity/Vol] 8 U/L Low 15-[address] [facility] Lymphocytes Auto (Unsp spec) [#/Vol]Ordered By: Matilde Brantley on 11-29-2024 Lymphocytes (Bld) [#/Vol] 1.00 10*3/uL 0.83-4.[address] [facility] Lymphocytes/100 WBC Auto (Un sp spec)Ordered By: Matilde Brantley on 11-29-2024 Lymphocytes/100 WBC (Bld) 8.7 % Low 19-[address] [facility] MCV (mean corpuscular volume ) determinationOrdered By: Matilde Brantley on 11-29-2024 MCV (RBC) [Entitic vol] 95.9 fL High 80-94 [facility] Mean corpuscular hemoglobin (MCH) determinationOrdered By: Matilde Brantley on 11-29-2024 MCH (RBC) [Entitic mass] 32.2 pg High 27.0-32.[address] [facility] Mean corpuscular hemoglobin concentration (MCHC) determinationOrdered By: Matilde Brantley on 11-29-2024 MCHC (RBC) [Mass/Vol] 33.6 g/dL 32-36 [facility] Mean platelet volume determi nationOrdered By: Matilde Brantley on 11-29-2024 Platelet mean volume (Bld) [Entitic vol] 11.2 fL 6.2-12.[address] [facility] Monocyte percentageOrdered B y: Matilde Brantley on 11-29-2024 Monocytes/100 WBC (Bld) 6.0 % 0-10 [facility] Neutrophil percentageOrdered By: Matilde Brantley on 11-29-2024 Neutrophils/100 WBC (Bld) 83.5 % High 47-[address] [facility] Nucleated red blood cell per centageOrdered By: Matilde Brantley on 11-29-2024 Nucleated RBC/100 WBC (Bld) [Ratio] 0 % 0-[address] [facility] Platelet countOrdered By: Nilay Brantley on 11-29-2024 Platelets (Bld) [#/Vol] 267 10*3/uL 150-[address] [facility] Potassium measurementOrdered By: Matilde Brantley on 11-29-2024 Potassium [Moles/Vol] 3.8 mmol/L 3.5-5.1 [facility] RBC Auto (Bld) [#/Vol]Ordere d By: Matilde Brantley on 11-29-2024 RBC (Bld) [#/Vol] 4.16 10*6/uL Low 4.6-6.2 [facility] Serum anion gap measurementO rdered By: Matilde Brantley on 11-29-2024 Anion gap [Moles/Vol] 8 mmol/L 5-15 [facility] Serum globulin measurementOr dered By: Matilde Brantley on 11-29-2024 Globulin (S) [Mass/Vol] 4.0 g/dL 2.2-4.2 [facility] Serum or plasma alanine brito otransferase (ALT) measurementOrdered By: Matilde Brantley on 11-29-2024 ALT [Catalytic activity/Vol] 8 U/L Low 16-[address] [facility] Serum or plasma albumin katherine urement (mass/volume)Ordered By: Matilde Brantley on 11-29-2024 Albumin [Mass/Vol] 3.5 g/dL 3.2-5.0 [facility] Serum or plasma alkaline kartik sphatase measurementOrdered By: Matilde Brantely on 11-29-2024 ALP [Catalytic activity/Vol] 83 U/L 45-[address] [facility] Serum or plasma calcium katherine urement (mass/volume)Ordered By: Matilde Brantley on 11-29-2024 Calcium [Mass/Vol] 8.9 mg/dL 8.5-10.1 [facility] Serum or plasma creatinine m easurement (mass/volume)Ordered By: Matilde Brantley on 11-29-2024 Creatinine [Mass/Vol] 1.12 mg/dL 0.70-1.30 [facility] Comment on above: The validity of the calculated GFR & GFRAA in patients over 70 years has not been determined. Clinical correlation is essential. Serum or plasma urea nitroge n measurement (mass/volume)Ordered By: Matilde Brantley on 11-29-2024 Urea nitrogen [Mass/Vol] 15 mg/dL 7-[address] [facility] Sodium levelOrdered By: Matilde Brantley on 11-29-2024 Sodium [Moles/Vol] 136 mmol/L 136-145 [facility] Total proteinOrdered By: Prema Brantley on 11-29-2024 Protein [Mass/Vol] 7.5 g/dL 6.4-8.2 [facility] White blood cell (WBC) count Ordered By: Matilde Brantley on 11-29-2024 WBC (Bld) [#/Vol] 11.5 10*3/uL High 4.4-11.0 [facility] PSA,Total - Annual Screenon 09-22-2024 PSA,TOT SCREEN 3.05 ng/mL Normal 0.00-4.[address] [facility] Comment on above: Result Comment: This test was performed using the TPSA assay method for the [employer] chemistry system. Values obtained with different assay methods cannot be used interchangably. When changing PSA assays in the course of monitoring a patient, additional sequential testing should be carried out to confirm baseline values. Performed By: #### L 501.9910 #### [facility] Laboratory [address] [place], [place], [id number] Abdomen WITH IV Contraston 1 Abdomen WITH IV Contrast [facility] Imaging Services [address] [place] [address] Abdomen WITH IV Contrast MR#: [id number] Acct: [id number] Name: MAYNOR VIDES III Rep #: [id number] : 1945 M 78 From: Brady mckenzie MD PCP: Dr. Sarika Montaño MD Status: REG CL Study: Abdomen WITH IV Contrast Date of Exam: 4 Exam# [id number] Ordering Dr: Surjit Kirkland MD [id number] STUDY: CT ABDOMEN WITH CONTRAST REASON FOR EXAM: Male, 78 years old. Hernia/abdominal pain -- PO and IV contrast. History of prior colon surgery. RADIATION DOSAGE (If Supplied By Facility): CTDIvol = ( 12.05 ) mGy, DLP = ( 401.52 ) mGycm TECHNIQUE: Transaxial images were obtained post I.V. administration of IV 100mL Isovue-300, and with oral contrast. Sagittal and coronal images were reconstructed. Individualized dose optimization techniques were used for this CT. COMPARISON: Comparison is made with prior study dated December 15, 2023. FINDINGS: The visualized lung bases are unremarkable. Coronary artery calcification. Stable scattered small hepatic cysts. Normal gallbladder and extrahepatic biliary system. Normal spleen. Normal pancreas. Normal bilateral adrenal glands. Normal right kidney. There is a 5.2 cm x 6.5 cm cyst in the upper lateral aspect of the left kidney. Normal visualized stomach. Normal small intestine. A large amount of fecal material is seen throughout the colon. Sigmoid diverticulosis. Surgical anastomosis in the region of the mid transverse colon. The appendix is visualized and appears normal. There is scattered atherosclerotic calcification of the abdominal aorta, without a demonstrated aneurysm. Normal inferior vena cava. Normal retroperitoneum. Weakening of the anterior abdominal musculature without a liya herniation. 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 Colon. There are diffuse degenerative changes of the visualized lumbar spine. Straightening of the normal lumbar lordosis. CT/Abdomen WITH IV Contrast IMPRESSION: Small scattered hepatic cysts. Stable left renal cyst. Large amount of fecal material is seen in the colon. Sigmoid diverticulosis. Imaging of the anterior abdominal wall without liya herniation. 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 Electronically Signed: Brady Mackenzie MD at 14:15 EDT Reading Location ID and State: [facility] / [place] , Service support , CC: Dr. Sarika Montaño MD; Dr. Surjit Kirkland MD Station Captain: Signed Normal [facility] CREATININE FINGERSTICKon CREATININE WB < 1.0 Normal 0.70-1.[address] [facility] Comment on above: Performed By: #### L 9100.0200 #### [facility] Laboratory [address] [place], [place], [address] EGFR WB > 60.0000 Normal >[address] [facility] Comment on above: Performed By: #### L 9100.0200 #### [facility] Laboratory [address] [place], [place], [address] Surgery Visit Reporton 07-22 Surgery Visit Report [facility] [address] [place] [address] OFFICE VISIT Date of Service: 07/22/24 MR#: [id number] Acct: [id number] Name: MAYNOR VIDES III Rep #: [id number] : 1945 Provider: Dr. Surjit vicente MD Age/Sex: 78/M Location: [facility] Status: Signed Intake Vital Signs 04/24/24 09:36 07/22/24 14:17 Height 5 ft 10 in 5 ft 10 in Weight: 156 lb 2 oz BMI 22.4 BP 145/82 H Blood Pressure Location Rt brachial Position Sitting Respiration 18 Pulse 74 Pulse Source Monitor Temp 97.6 F L Temp Source Temporal Pulse Oximetry (%) 95 Oxygen Delivery Method room air Intake Visit Reasons: Hernia Chief Complaint: bilateral inguinal hernia Accompanied by: Daughter Is patient in pain?: No Allergies No Known Allergies Allergy (Verified 07/22/24 14:18) Medications ???Medication ???Instructions ???Recorded ???Confirmed ???Type amantadine HCl 100 mg capsule 100 mg PO DAILY hill 12/04/23 07/22/24 History food supplemt, lactose-reduced 120 ml PO 4X/DAY nutrition #237 mL 12/24/23 07/22/24 Rx 0.08 gram-1.5 kcal/mL oral liquid (Ensure Plus High Protein) pantoprazole 40 mg tablet,delayed 40 mg PO DAILY stomach acid 2 12/24/23 07/22/24 Rx release weeks #14 tabs carbidopa 25 mg-levodopa 100 mg 2 tab PO 0800 #0 tabs 01/16/24 07/22/24 Rx tablet carbidopa 25 mg-levodopa 100 mg 2 tab PO BID@1100,1600 #0 tabs 01/16/24 07/22/24 Rx tablet carbidopa ER 50 mg-levodopa 200 mg 1 tab PO QHS #0 tabs 01/16/24 07/22/24 Rx tablet,extended release carboxymethylcellulo se sodium 0.5 1 drp ophthalmic (eye) Q6H PRN PRN 01/16/24 07/22/24 Rx % eye drops (Refresh Tears) DRY EYES #0 mL fluticasone propionate 50 1 spray NASAL BID #0 grams 01/16/24 07/22/24 Rx mcg/actuation nasal spray,suspension melatonin 10 mg sublingual tablet 5 mg (1/2 x 10 mg) PO QHS PRN 01/16/24 07/22/24 Rx Insomnia #0 tabs sennosides 8.6 mg-docusate sodium 2 tab PO BID #0 tabs 01/16/24 07/22/24 Rx 50 mg tablet (Stool Softener-Stimulant Laxative) sodium chloride 0.65 % nasal spray 1 spray NASAL BID #0 mL 01/16/24 07/22/24 Rx aerosol (Deep Sea Nasal) sodium chloride 0.65 % nasal spray 1 spray NASAL BID PRN PRN NASAL 01/16/24 07/22/24 Rx aerosol (Deep Sea Nasal) DRYNESS #0 mL fluconazole 100 mg tablet 100 mg PO DAILY 6 days #6 tabs 02/20/24 07/22/24 Rx hydrochlorothiazide 25 mg tablet 25 mg PO DAILY 04/24/24 07/22/24 History Have you fallen in the past year?: No PFSH Medical History (Updated 07/22/24 @ 14:17 by Bettye Silva LPN) Bilateral inguinal hernia Incisional hernia of anterior abdominal wall without obstruction or gangrene History of intestinal obstruction Wound dehiscence, surgical BPH (benign prostatic hyperplasia) Debility Hypertension CKD (chronic kidney disease), stage II Parkinson disease Surgical History History of intestinal surgery History of colostomy History of colectomy History of tonsillectomy and adenoidectomy Family History Mother Heart disease Father Heart disease Social History household members: none Smoking Status: Never smoker alcohol intake: never substance use type: does not use HPI HPI HPI: Patient is a 78-year-old male who presents for evaluation of a possible incisional hernia related to an exploratory laparotomy with left hemicolectomy and end colostomy for indication of sigmoid volvulus 12/15/2023. Mr. Vides with his daughter. They relate that the suture abscess that we had drained during his transitional care stay continued to persist as a wound despite closing significantly and ongoing attention from wound care. He was thus referred to the wound care center where the wound persisted even there for some time until they began using a silver impregnated dressing which led to complete healing. With this healing he has been discharged from the wound care service. They shared that during the evaluation phase Mr. Vides was noted to have a squishy area below his incision and this was concerning for a possible hernia so the wanted to have this evaluated in a preventative fashion. They note that this has not caused any pain or discomfort. Mr. Vides is pleased with his current state of health and shares that his ostomy is working well. His daughter adds that he is due to travel to [place] this weekend for a weeklong visit to his eldest daughter. They want to be sure that the finding being discussed today will not impact these travels or need to be considered more thoughtfully. ROS General General: Yes weight change and fatigue; No appet (more content not included)... Normal [facility] Wound Ctr History AND Physic soledad 07-07-2024 Wound Ctr History & Physical [facility] [address] [place] [address] H P Exam - Wound Care 07/07/24 1342 MR#: [id number] Acct: [id number] Name: MAYNOR VIDES III Rep #: [id number] : 1945 78 From: Fred Wells MD PCP: Dr. Sarika Montaño MD Status:REG RCR Location: History of Present Illness Date of Service: 07/07/24 Chief Complaint: Dehiscent surgical abdominal wound History of Wound: This is a 78-year-old male who suffered a sigmoid volvulus with obstruction in November 2023. This condition necessitated an exploratory laparotomy with sigmoid colon resection with end colostomy, which was performed on December 15, 2023. The patient's incisional caitlyn were removed on the ninth postoperative day, and the patient was transferred to the Transitional Care Unit on December 24, 2023, for postoperative rehabilitation. The patient subsequently experienced an incisional dehiscence, which had been treated by means of daily Iodoform gauze packing. Approximately 6 to 8 weeks prior to presentation, the patient's surgeon, Dr. Kirkland, is said to have removed a retained surgical suture from the site of the incisional dehiscence. The patient presented at at our facility for evaluation and management of the residual surgical wound dehiscence. The patient lives alone, though he is assisted by his daughter who lives locally. He self manages his colostomy, which is functioning normally. 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 [facility] Medical History Incisional hernia of anterior abdominal wall without obstruction or gangrene History of intestinal obstruction Wound dehiscence, surgical BPH (benign prostatic hyperplasia) Debility Hypertension CKD (chronic kidney disease), stage II Parkinson disease Home Medications ???Medication ???Instructions ???Recorded ???Last Taken ???Type amantadine HCl 100 mg capsule 100 mg PO DAILY hill 12/04/23 12/24/23 08:15 History food supplemt, lactose-reduced 120 ml PO 4X/DAY nutrition #237 mL 12/24/23 12/24/23 13:05 Rx 0.08 gram-1.5 kcal/mL oral liquid (Ensure Plus High Protein) pantoprazole 40 mg tablet,delayed 40 mg PO DAILY stomach acid 2 12/24/23 12/24/23 08:15 Rx release weeks #14 tabs carbidopa 25 mg-levodopa 100 mg 2 tab PO 0800 #0 tabs 01/16/24 Unknown Rx tablet carbidopa 25 mg-levodopa 100 mg 2 tab PO BID@1100,1600 #0 tabs 01/16/24 Unknown Rx tablet carbidopa ER 50 mg-levodopa 200 mg 1 tab PO QHS #0 tabs 01/16/24 Unknown Rx tablet,extended release carboxymethylcellulo se sodium 0.5 1 drp ophthalmic (eye) Q6H PRN PRN 01/16/24 Unknown Rx % eye drops (Refresh Tears) DRY EYES #0 mL fluticasone propionate 50 1 spray NASAL BID #0 grams 01/16/24 Unknown Rx mcg/actuation nasal spray,suspension melatonin 10 mg sublingual tablet 5 mg (1/2 x 10 mg) PO QHS PRN 01/16/24 Unknown Rx Insomnia #0 tabs sennosides 8.6 mg-docusate sodium 2 tab PO BID #0 tabs 01/16/24 Unknown Rx 50 mg tablet (Stool Softener-Stimulant Laxative) sodium chloride 0.65 % nasal spray 1 spray NASAL BID #0 mL 01/16/24 Unknown Rx aerosol (Deep Sea Nasal) sodium chloride 0.65 % nasal spray 1 spray NASAL BID PRN PRN NASAL 01/16/24 Unknown Rx aerosol (Deep Sea Nasal) DRYNESS #0 mL fluconazole 100 mg tablet 100 mg PO DAILY 6 days #6 tabs 02/20/24 Unknown Rx hydrochlorothiazide 25 mg tablet 25 mg PO DAILY 04/24/24 Unknown History Allergy/AdvReac Type Severity Reaction Status Date / Time No Known Allergies Allergy Verified 12/13/23 11:57 Family History Mother Heart disease Father Heart disease Surgical History History of intestinal surgery History of colostomy History of colectomy History of tonsillectomy and adenoidectomy Social History household members: none Smoking Status: Never smoker alcohol intake: never substance use type: does not use Vital Signs Vital Signs Vital Signs: 07/07/24 13:20 Temperature 97.7 F L Temperature Source Temporal Pulse Rate 60 Respiratory Rate 18 Blood Pressure 157/77 H Blood Pressure Mean 103 Blood Pressure Source Monitor Blood Pressure Position Semi-Fowlers Blood Pressure Location Left Arm Oxygen Delivery Method Room Air Weight Weight: 145 lb Body Mass Index (BMI) 20.7 Physical Exam Const alert, oriented x3, no apparent distress, average body habitus, no limitations and well nourished Constitutional Narrative: The patient appears relatively weak and frail, though is conversant and appropriate. Tremors are noted, consistent with the (more content not included)... Normal [facility] Wound Ctr History AND Physic soledad 06-24-2024 Wound Ctr History & Physical [facility] [address] [place] [address] H P Exam - Wound Care 06/24/24 1813 MR#: [id number] Acct: [id number] Name: MAYNOR VIDES III Rep #: [id number] : 1945 78 From: Fred Wells MD PCP: Dr. Sarika Montaño MD Status:REG [facility] Location: History of Present Illness Date of Service: 06/23/24 Chief Complaint: Dehiscent surgical abdominal wound History of Wound: This is a 78-year-old male who suffered a sigmoid volvulus with obstruction in November 2023. This condition necessitated an exploratory laparotomy with sigmoid colon resection with end colostomy, which was performed on December 15, 2023. The patient's incisional caitlyn were removed on the ninth postoperative day, and the patient was transferred to the Transitional Care Unit on December 24, 2023, for postoperative rehabilitation. The patient subsequently experienced an incisional dehiscence, which had been treated by means of daily Iodoform gauze packing. Approximately 6 to 8 weeks prior to presentation, the patient's surgeon, Dr. Kirkland, is said to have removed a retained surgical suture from the site of the incisional dehiscence. The patient presented at at our facility for evaluation and management of the residual surgical wound dehiscence. The patient lives alone, though he is assisted by his daughter who lives locally. He self manages his colostomy, which is functioning normally. 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 [facility] Medical History Incisional hernia of anterior abdominal wall without obstruction or gangrene History of intestinal obstruction Wound dehiscence, surgical BPH (benign prostatic hyperplasia) Debility Hypertension CKD (chronic kidney disease), stage II Parkinson disease Home Medications ???Medication ???Instructions ???Recorded ???Last Taken ???Type amantadine HCl 100 mg capsule 100 mg PO DAILY hill 12/04/23 12/24/23 08:15 History food supplemt, lactose-reduced 120 ml PO 4X/DAY nutrition #237 mL 12/24/23 12/24/23 13:05 Rx 0.08 gram-1.5 kcal/mL oral liquid (Ensure Plus High Protein) pantoprazole 40 mg tablet,delayed 40 mg PO DAILY stomach acid 2 12/24/23 12/24/23 08:15 Rx release weeks #14 tabs carbidopa 25 mg-levodopa 100 mg 2 tab PO 0800 #0 tabs 01/16/24 Unknown Rx tablet carbidopa 25 mg-levodopa 100 mg 2 tab PO BID@1100,1600 #0 tabs 01/16/24 Unknown Rx tablet carbidopa ER 50 mg-levodopa 200 mg 1 tab PO QHS #0 tabs 01/16/24 Unknown Rx tablet,extended release carboxymethylcellulo se sodium 0.5 1 drp ophthalmic (eye) Q6H PRN PRN 01/16/24 Unknown Rx % eye drops (Refresh Tears) DRY EYES #0 mL fluticasone propionate 50 1 spray NASAL BID #0 grams 01/16/24 Unknown Rx mcg/actuation nasal spray,suspension melatonin 10 mg sublingual tablet 5 mg (1/2 x 10 mg) PO QHS PRN 01/16/24 Unknown Rx Insomnia #0 tabs sennosides 8.6 mg-docusate sodium 2 tab PO BID #0 tabs 01/16/24 Unknown Rx 50 mg tablet (Stool Softener-Stimulant Laxative) sodium chloride 0.65 % nasal spray 1 spray NASAL BID #0 mL 01/16/24 Unknown Rx aerosol (Deep Sea Nasal) sodium chloride 0.65 % nasal spray 1 spray NASAL BID PRN PRN NASAL 01/16/24 Unknown Rx aerosol (Deep Sea Nasal) DRYNESS #0 mL fluconazole 100 mg tablet 100 mg PO DAILY 6 days #6 tabs 02/20/24 Unknown Rx hydrochlorothiazide 25 mg tablet 25 mg PO DAILY 04/24/24 Unknown History Allergy/AdvReac Type Severity Reaction Status Date / Time No Known Allergies Allergy Verified 12/13/23 11:57 Family History Mother Heart disease Father Heart disease Surgical History History of intestinal surgery History of colostomy History of colectomy History of tonsillectomy and adenoidectomy Social History household members: none Smoking Status: Never smoker alcohol intake: never substance use type: does not use Vital Signs Vital Signs Vital Signs: Weight Weight: 145 lb Body Mass Index (BMI) 20.7 Physical Exam Const alert, oriented x3, no apparent distress, average body habitus, no limitations and well nourished Constitutional Narrative: The patient appears relatively weak and frail, though is conversant and appropriate. Tremors are noted, consistent with the patient's diagnosis of Parkinson's disease. General Appearance: cooperative, comfortable, well kempt and well developed Orientation / Consciousness: awake, oriented to person, oriented to place and oriented to time Exam Limitations: no limitations HEENT normocephalic and head/scalp atraumatic Head and Scalp: normal to in (more content not included)... Normal [facility] Wound Ctr History AND Physic soledad 06-16-2024 Wound Ctr History & Physical [facility] [address] [place] [address] H P Exam - Wound Care 06/16/24 1345 MR#: [id number] Acct: [id number] Name: MAYNOR VIDES III Rep #: [id number] : 1945 78 From: Fred Wells MD PCP: Dr. Sarika Montaño MD Status:REG [facility] Location: History of Present Illness Date of Service: 06/16/24 Chief Complaint: Dehiscent surgical abdominal wound History of Wound: This is a 78-year-old male who suffered a sigmoid volvulus with obstruction in November 2023. This condition necessitated an exploratory laparotomy with sigmoid colon resection with end colostomy, which was performed on December 15, 2023. The patient's incisional caitlyn were removed on the ninth postoperative day, and the patient was transferred to the Transitional Care Unit on December 24, 2023, for postoperative rehabilitation. The patient subsequently experienced an incisional dehiscence, which had been treated by means of daily Iodoform gauze packing. Approximately 6 to 8 weeks prior to presentation, the patient's surgeon, Dr. Kirkland, is said to have removed a retained surgical suture from the site of the incisional dehiscence. The patient presented at at our facility for evaluation and management of the residual surgical wound dehiscence. The patient lives alone, though he is assisted by his daughter who lives locally. He self manages his colostomy, which is functioning normally. 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 [facility] Medical History History of intestinal obstruction Wound dehiscence, surgical BPH (benign prostatic hyperplasia) Debility Hypertension CKD (chronic kidney disease), stage II Parkinson disease Home Medications ???Medication ???Instructions ???Recorded ???Last Taken ???Type amantadine HCl 100 mg capsule 100 mg PO DAILY hill 12/04/23 12/24/23 08:15 History food supplemt, lactose-reduced 120 ml PO 4X/DAY nutrition #237 mL 12/24/23 12/24/23 13:05 Rx 0.08 gram-1.5 kcal/mL oral liquid (Ensure Plus High Protein) pantoprazole 40 mg tablet,delayed 40 mg PO DAILY stomach acid 2 12/24/23 12/24/23 08:15 Rx release weeks #14 tabs carbidopa 25 mg-levodopa 100 mg 2 tab PO 0800 #0 tabs 01/16/24 Unknown Rx tablet carbidopa 25 mg-levodopa 100 mg 2 tab PO BID@1100,1600 #0 tabs 01/16/24 Unknown Rx tablet carbidopa ER 50 mg-levodopa 200 mg 1 tab PO QHS #0 tabs 01/16/24 Unknown Rx tablet,extended release carboxymethylcellulo se sodium 0.5 1 drp ophthalmic (eye) Q6H PRN PRN 01/16/24 Unknown Rx % eye drops (Refresh Tears) DRY EYES #0 mL fluticasone propionate 50 1 spray NASAL BID #0 grams 01/16/24 Unknown Rx mcg/actuation nasal spray,suspension melatonin 10 mg sublingual tablet 5 mg (1/2 x 10 mg) PO QHS PRN 01/16/24 Unknown Rx Insomnia #0 tabs sennosides 8.6 mg-docusate sodium 2 tab PO BID #0 tabs 01/16/24 Unknown Rx 50 mg tablet (Stool Softener-Stimulant Laxative) sodium chloride 0.65 % nasal spray 1 spray NASAL BID #0 mL 01/16/24 Unknown Rx aerosol (Deep Sea Nasal) sodium chloride 0.65 % nasal spray 1 spray NASAL BID PRN PRN NASAL 01/16/24 Unknown Rx aerosol (Deep Sea Nasal) DRYNESS #0 mL fluconazole 100 mg tablet 100 mg PO DAILY 6 days #6 tabs 02/20/24 Unknown Rx hydrochlorothiazide 25 mg tablet 25 mg PO DAILY 04/24/24 Unknown History Allergy/AdvReac Type Severity Reaction Status Date / Time No Known Allergies Allergy Verified 12/13/23 11:57 Family History Mother Heart disease Father Heart disease Surgical History History of intestinal surgery History of colostomy History of colectomy History of tonsillectomy and adenoidectomy Social History household members: none Smoking Status: Never smoker alcohol intake: never substance use type: does not use Vital Signs Vital Signs Vital Signs: 06/16/24 13:17 Temperature 97.7 F L Temperature Source Temporal Pulse Rate 74 Respiratory Rate 18 Blood Pressure 144/78 H Blood Pressure Mean 100 Blood Pressure Source Monitor Blood Pressure Position Semi-Fowlers Blood Pressure Location Left Arm Oxygen Delivery Method Room Air Weight Weight: 145 lb Body Mass Index (BMI) 20.7 Physical Exam Const alert, oriented x3, no apparent distress, average body habitus, no limitations and well nourished Constitutional Narrative: The patient appears relatively weak and frail, though is conversant and appropriate. Tremors are noted, consistent with the patient's diagnosis of Parkinson's disease. General Appearance: cooperative, (more content not included)... Normal [facility] Wound Ctr History AND Physic soledad 06-09-2024 Wound Ctr History & Physical [facility] [address] [place] [address] H P Exam - Wound Care 06/09/24 1345 MR#: [id number] Acct: [id number] Name: MAYNOR VIDES III Rep #: [id number] : 1945 78 From: Fred Wells MD PCP: Dr. Sarika Montaño MD Status:REG RCR Location: History of Present Illness Date of Service: 06/09/24 Chief Complaint: Dehiscent surgical abdominal wound History of Wound: This is a 78-year-old male who suffered a sigmoid volvulus with obstruction in November 2023. This condition necessitated an exploratory laparotomy with sigmoid colon resection with end colostomy, which was performed on December 15, 2023. The patient's incisional caitlyn were removed on the ninth postoperative day, and the patient was transferred to the Transitional Care Unit on December 24, 2023, for postoperative rehabilitation. The patient subsequently experienced an incisional dehiscence, which had been treated by means of daily Iodoform gauze packing. Approximately 6 to 8 weeks prior to presentation, the patient's surgeon, Dr. Kirkland, is said to have removed a retained surgical suture from the site of the incisional dehiscence. The patient presented at at our facility for evaluation and management of the residual surgical wound dehiscence. The patient lives alone, though he is assisted by his daughter who lives locally. He self manages his colostomy, which is functioning normally. 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 [facility] Medical History History of intestinal obstruction Wound dehiscence, surgical BPH (benign prostatic hyperplasia) Debility Hypertension CKD (chronic kidney disease), stage II Parkinson disease Home Medications ???Medication ???Instructions ???Recorded ???Last Taken ???Type amantadine HCl 100 mg capsule 100 mg PO DAILY hill 12/04/23 12/24/23 08:15 History food supplemt, lactose-reduced 120 ml PO 4X/DAY nutrition #237 mL 12/24/23 12/24/23 13:05 Rx 0.08 gram-1.5 kcal/mL oral liquid (Ensure Plus High Protein) pantoprazole 40 mg tablet,delayed 40 mg PO DAILY stomach acid 2 12/24/23 12/24/23 08:15 Rx release weeks #14 tabs carbidopa 25 mg-levodopa 100 mg 2 tab PO 0800 #0 tabs 01/16/24 Unknown Rx tablet carbidopa 25 mg-levodopa 100 mg 2 tab PO BID@1100,1600 #0 tabs 01/16/24 Unknown Rx tablet carbidopa ER 50 mg-levodopa 200 mg 1 tab PO QHS #0 tabs 01/16/24 Unknown Rx tablet,extended release carboxymethylcellulo se sodium 0.5 1 drp ophthalmic (eye) Q6H PRN PRN 01/16/24 Unknown Rx % eye drops (Refresh Tears) DRY EYES #0 mL fluticasone propionate 50 1 spray NASAL BID #0 grams 01/16/24 Unknown Rx mcg/actuation nasal spray,suspension melatonin 10 mg sublingual tablet 5 mg (1/2 x 10 mg) PO QHS PRN 01/16/24 Unknown Rx Insomnia #0 tabs sennosides 8.6 mg-docusate sodium 2 tab PO BID #0 tabs 01/16/24 Unknown Rx 50 mg tablet (Stool Softener-Stimulant Laxative) sodium chloride 0.65 % nasal spray 1 spray NASAL BID #0 mL 01/16/24 Unknown Rx aerosol (Deep Sea Nasal) sodium chloride 0.65 % nasal spray 1 spray NASAL BID PRN PRN NASAL 01/16/24 Unknown Rx aerosol (Deep Sea Nasal) DRYNESS #0 mL fluconazole 100 mg tablet 100 mg PO DAILY 6 days #6 tabs 02/20/24 Unknown Rx hydrochlorothiazide 25 mg tablet 25 mg PO DAILY 04/24/24 Unknown History Allergy/AdvReac Type Severity Reaction Status Date / Time No Known Allergies Allergy Verified 12/13/23 11:57 Family History Mother Heart disease Father Heart disease Surgical History History of colostomy History of colectomy History of tonsillectomy and adenoidectomy Social History household members: none Smoking Status: Never smoker alcohol intake: never substance use type: does not use Vital Signs Vital Signs Vital Signs: Weight Weight: 145 lb Body Mass Index (BMI) 20.7 Physical Exam Const alert, oriented x3, no apparent distress, average body habitus, no limitations and well nourished Constitutional Narrative: The patient appears relatively weak and frail, though is conversant and appropriate. Tremors are noted, consistent with the patient's diagnosis of Parkinson's disease. General Appearance: cooperative, comfortable, well kempt and well developed Orientation / Consciousness: awake, oriented to person, oriented to place and oriented to time Exam Limitations: no limitations HEENT normocephalic and head/scalp atraumatic Head and Scalp: normal to inspection, normocephalic and atraumatic Face and Sinus: normal facial exam Nose: external nose normal Exte (more content not included)... Normal [facility] Wound Ctr History AND Physic soledad 05-20-2024 Wound Ctr History & Physical [facility] [address] [place] [address] H P Exam - Wound Care 05/20/24 1133 MR#: [id number] Acct: [id number] Name: MAYNOR VIDES III Rep #: [id number] : 1945 78 From: Fred Wells MD PCP: Dr. Sarika Montaño MD Status:REG RCR Location: History of Present Illness Date of Service: 05/19/24 Chief Complaint: Dehiscent surgical abdominal wound History of Wound: This is a 78-year-old male who suffered a sigmoid volvulus with obstruction in November 2023. This condition necessitated an exploratory laparotomy with sigmoid colon resection with end colostomy, which was performed on December 15, 2023. The patient's incisional caitlyn were removed on the ninth postoperative day, and the patient was transferred to the Transitional Care Unit on December 24, 2023, for postoperative rehabilitation. The patient subsequently experienced an incisional dehiscence, which had been treated by means of daily Iodoform gauze packing. Approximately 6 to 8 weeks prior to presentation, the patient's surgeon, Dr. Kirkland, is said to have removed a retained surgical suture from the site of the incisional dehiscence. The patient presented at at our facility for evaluation and management of the residual surgical wound dehiscence. The patient lives alone, though he is assisted by his daughter who lives locally. He self manages his colostomy, which is functioning normally. 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 [facility] Medical History History of intestinal obstruction Wound dehiscence, surgical BPH (benign prostatic hyperplasia) Debility Hypertension CKD (chronic kidney disease), stage II Parkinson disease Home Medications ???Medication ???Instructions ???Recorded ???Last Taken ???Type amantadine HCl 100 mg capsule 100 mg PO DAILY hill 12/04/23 12/24/23 08:15 History food supplemt, lactose-reduced 120 ml PO 4X/DAY nutrition #237 mL 12/24/23 12/24/23 13:05 Rx 0.08 gram-1.5 kcal/mL oral liquid (Ensure Plus High Protein) pantoprazole 40 mg tablet,delayed 40 mg PO DAILY stomach acid 2 12/24/23 12/24/23 08:15 Rx release weeks #14 tabs carbidopa 25 mg-levodopa 100 mg 2 tab PO 0800 #0 tabs 01/16/24 Unknown Rx tablet carbidopa 25 mg-levodopa 100 mg 2 tab PO BID@1100,1600 #0 tabs 01/16/24 Unknown Rx tablet carbidopa ER 50 mg-levodopa 200 mg 1 tab PO QHS #0 tabs 01/16/24 Unknown Rx tablet,extended release carboxymethylcellulo se sodium 0.5 1 drp ophthalmic (eye) Q6H PRN PRN 01/16/24 Unknown Rx % eye drops (Refresh Tears) DRY EYES #0 mL fluticasone propionate 50 1 spray NASAL BID #0 grams 01/16/24 Unknown Rx mcg/actuation nasal spray,suspension melatonin 10 mg sublingual tablet 5 mg (1/2 x 10 mg) PO QHS PRN 01/16/24 Unknown Rx Insomnia #0 tabs sennosides 8.6 mg-docusate sodium 2 tab PO BID #0 tabs 01/16/24 Unknown Rx 50 mg tablet (Stool Softener-Stimulant Laxative) sodium chloride 0.65 % nasal spray 1 spray NASAL BID #0 mL 01/16/24 Unknown Rx aerosol (Deep Sea Nasal) sodium chloride 0.65 % nasal spray 1 spray NASAL BID PRN PRN NASAL 01/16/24 Unknown Rx aerosol (Deep Sea Nasal) DRYNESS #0 mL fluconazole 100 mg tablet 100 mg PO DAILY 6 days #6 tabs 02/20/24 Unknown Rx hydrochlorothiazide 25 mg tablet 25 mg PO DAILY 04/24/24 Unknown History Allergy/AdvReac Type Severity Reaction Status Date / Time No Known Allergies Allergy Verified 12/13/23 11:57 Family History Mother Heart disease Father Heart disease Surgical History History of colostomy History of colectomy History of tonsillectomy and adenoidectomy Social History household members: none Smoking Status: Never smoker alcohol intake: never substance use type: does not use Vital Signs Vital Signs Vital Signs: 05/19/24 13:23 Temperature 97.1 F L Temperature Source Temporal Pulse Rate 71 Respiratory Rate 18 Blood Pressure 156/78 H Blood Pressure Mean 104 Blood Pressure Source Monitor Blood Pressure Position Semi-Fowlers Blood Pressure Location Left Arm Weight Weight: 145 lb Body Mass Index (BMI) 20.7 Physical Exam Const alert, oriented x3, no apparent distress, average body habitus, no limitations and well nourished Constitutional Narrative: The patient appears relatively weak and frail, though is conversant and appropriate. Tremors are noted, consistent with the patient's diagnosis of Parkinson's disease. General Appearance: cooperative, comfortable, well kempt and well developed Orientation / Conscious (more content not included)... Normal [facility] Wound Ctr History AND Physic soledad 05-05-2024 Wound Ctr History & Physical [facility] [address] [place] [address] H P Exam - Wound Care 05/05/24 1738 MR#: [id number] Acct: [id number] Name: MAYNOR VIDES III Rep #: [id number] : 1945 78 From: Fred Wells MD PCP: Dr. Sarika Montaño MD Status:REG RCR Location: History of Present Illness Date of Service: 05/05/24 Chief Complaint: Dehiscent surgical abdominal wound History of Wound: This is a 78-year-old male who suffered a sigmoid volvulus with obstruction in November 2023. This condition necessitated an exploratory laparotomy with sigmoid colon resection with end colostomy, which was performed on December 15, 2023. The patient's incisional caitlyn were removed on the ninth postoperative day, and the patient was transferred to the Transitional Care Unit on December 24, 2023, for postoperative rehabilitation. The patient subsequently experienced an incisional dehiscence, which had been treated by means of daily Iodoform gauze packing. Approximately 6 to 8 weeks prior to presentation, the patient's surgeon, Dr. Kirkland, is said to have removed a retained surgical suture from the site of the incisional dehiscence. The patient presented at at our facility for evaluation and management of the residual surgical wound dehiscence. The patient lives alone, though he is assisted by his daughter who lives locally. He self manages his colostomy, which is functioning normally. 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 [facility] Medical History History of intestinal obstruction Wound dehiscence, surgical BPH (benign prostatic hyperplasia) Debility Hypertension CKD (chronic kidney disease), stage II Parkinson disease Home Medications ???Medication ???Instructions ???Recorded ???Last Taken ???Type amantadine HCl 100 mg capsule 100 mg PO DAILY hill 12/04/23 12/24/23 08:15 History food supplemt, lactose-reduced 120 ml PO 4X/DAY nutrition #237 mL 12/24/23 12/24/23 13:05 Rx 0.08 gram-1.5 kcal/mL oral liquid (Ensure Plus High Protein) pantoprazole 40 mg tablet,delayed 40 mg PO DAILY stomach acid 2 12/24/23 12/24/23 08:15 Rx release weeks #14 tabs carbidopa 25 mg-levodopa 100 mg 2 tab PO 0800 #0 tabs 01/16/24 Unknown Rx tablet carbidopa 25 mg-levodopa 100 mg 2 tab PO BID@1100,1600 #0 tabs 01/16/24 Unknown Rx tablet carbidopa ER 50 mg-levodopa 200 mg 1 tab PO QHS #0 tabs 01/16/24 Unknown Rx tablet,extended release carboxymethylcellulo se sodium 0.5 1 drp ophthalmic (eye) Q6H PRN PRN 01/16/24 Unknown Rx % eye drops (Refresh Tears) DRY EYES #0 mL fluticasone propionate 50 1 spray NASAL BID #0 grams 01/16/24 Unknown Rx mcg/actuation nasal spray,suspension melatonin 10 mg sublingual tablet 5 mg (1/2 x 10 mg) PO QHS PRN 01/16/24 Unknown Rx Insomnia #0 tabs sennosides 8.6 mg-docusate sodium 2 tab PO BID #0 tabs 01/16/24 Unknown Rx 50 mg tablet (Stool Softener-Stimulant Laxative) sodium chloride 0.65 % nasal spray 1 spray NASAL BID #0 mL 01/16/24 Unknown Rx aerosol (Deep Sea Nasal) sodium chloride 0.65 % nasal spray 1 spray NASAL BID PRN PRN NASAL 01/16/24 Unknown Rx aerosol (Deep Sea Nasal) DRYNESS #0 mL fluconazole 100 mg tablet 100 mg PO DAILY 6 days #6 tabs 02/20/24 Unknown Rx hydrochlorothiazide 25 mg tablet 25 mg PO DAILY 04/24/24 Unknown History Allergy/AdvReac Type Severity Reaction Status Date / Time No Known Allergies Allergy Verified 12/13/23 11:57 Family History Mother Heart disease Father Heart disease Surgical History History of colostomy History of colectomy History of tonsillectomy and adenoidectomy Social History household members: none Smoking Status: Never smoker alcohol intake: never substance use type: does not use Vital Signs Vital Signs Vital Signs: 05/05/24 15:04 Temperature 96.8 F L Temperature Source Temporal Pulse Rate 70 Respiratory Rate 18 Blood Pressure 145/82 H Blood Pressure Mean 103 Blood Pressure Source Monitor Blood Pressure Position Semi-Fowlers Blood Pressure Location Left Arm Weight Weight: 145 lb Body Mass Index (BMI) 20.7 Physical Exam Const alert, oriented x3, no apparent distress, average body habitus, no limitations and well nourished Constitutional Narrative: The patient appears relatively weak and frail, though is conversant and appropriate. Tremors are noted, consistent with the patient's diagnosis of Parkinson's disease. General Appearance: cooperative, comfortable, well kempt and well developed Orientation / Conscious (more content not included)... Normal [facility] Wound Ctr History AND Physic soledad 04-24-2024 Wound Ctr History & Physical [facility] [address] [place] [address] H P Exam - Wound Care 04/24/24 1038 MR#: [id number] Acct: [id number] Name: MAYNOR VIDES III Rep #: [id number] : 1945 78 From: Fred Wells MD PCP: Dr. Sarika Montaño MD Status:REG R Location: History of Present Illness Date of Service: 04/24/24 Chief Complaint: Dehiscent surgical abdominal wound History of Wound: This is a 78-year-old male who suffered a sigmoid volvulus with obstruction in November 2023. This condition necessitated an exploratory laparotomy with sigmoid colon resection with end colostomy, which was performed on December 15, 2023. The patient's incisional caitlyn were removed on the ninth postoperative day, and the patient was transferred to the Transitional Care Unit on December 24, 2023, for postoperative rehabilitation. The patient subsequently experienced an incisional dehiscence, which has been treated by means of daily Iodoform gauze packing. Approximately 6 to 8 weeks ago, the patient's surgeon, Dr. Kirkland, is said to have removed a retained surgical suture from the site of the incisional dehiscence. The patient presents at this time for evaluation and management of the residual surgical wound dehiscence. The patient lives alone, though he is assisted by his daughter who lives locally. He self manages his colostomy, which is functioning normally. 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 [facility] Medical History History of intestinal obstruction Wound dehiscence, surgical BPH (benign prostatic hyperplasia) Debility Hypertension CKD (chronic kidney disease), stage II Parkinson disease Home Medications ???Medication ???Instructions ???Recorded ???Last Taken ???Type amantadine HCl 100 mg capsule 100 mg PO DAILY hill 12/04/23 12/24/23 08:15 History food supplemt, lactose-reduced 120 ml PO 4X/DAY nutrition #237 mL 12/24/23 12/24/23 13:05 Rx 0.08 gram-1.5 kcal/mL oral liquid (Ensure Plus High Protein) pantoprazole 40 mg tablet,delayed 40 mg PO DAILY stomach acid 2 12/24/23 12/24/23 08:15 Rx release weeks #14 tabs carbidopa 25 mg-levodopa 100 mg 2 tab PO 0800 #0 tabs 01/16/24 Unknown Rx tablet carbidopa 25 mg-levodopa 100 mg 2 tab PO BID@1100,1600 #0 tabs 01/16/24 Unknown Rx tablet carbidopa ER 50 mg-levodopa 200 mg 1 tab PO QHS #0 tabs 01/16/24 Unknown Rx tablet,extended release carboxymethylcellulo se sodium 0.5 1 drp ophthalmic (eye) Q6H PRN PRN 01/16/24 Unknown Rx % eye drops (Refresh Tears) DRY EYES #0 mL fluticasone propionate 50 1 spray NASAL BID #0 grams 01/16/24 Unknown Rx mcg/actuation nasal spray,suspension melatonin 10 mg sublingual tablet 5 mg (1/2 x 10 mg) PO QHS PRN 01/16/24 Unknown Rx Insomnia #0 tabs sennosides 8.6 mg-docusate sodium 2 tab PO BID #0 tabs 01/16/24 Unknown Rx 50 mg tablet (Stool Softener-Stimulant Laxative) sodium chloride 0.65 % nasal spray 1 spray NASAL BID #0 mL 01/16/24 Unknown Rx aerosol (Deep Sea Nasal) sodium chloride 0.65 % nasal spray 1 spray NASAL BID PRN PRN NASAL 01/16/24 Unknown Rx aerosol (Deep Sea Nasal) DRYNESS #0 mL fluconazole 100 mg tablet 100 mg PO DAILY 6 days #6 tabs 02/20/24 Unknown Rx hydrochlorothiazide 25 mg tablet 25 mg PO DAILY 04/24/24 Unknown History Allergy/AdvReac Type Severity Reaction Status Date / Time No Known Allergies Allergy Verified 12/13/23 11:57 Family History Mother Heart disease Father Heart disease Surgical History History of colostomy History of colectomy History of tonsillectomy and adenoidectomy Social History household members: none Smoking Status: Never smoker alcohol intake: never substance use type: does not use Vital Signs Vital Signs Vital Signs: 04/24/24 09:36 Temperature 96.2 F L Temperature Source Temporal Pulse Rate 74 Respiratory Rate 18 Blood Pressure 156/88 H Blood Pressure Mean 110 Blood Pressure Source Monitor Blood Pressure Position Semi-Fowlers Blood Pressure Location Left Arm Weight Weight: 145 lb Body Mass Index (BMI) 20.7 Physical Exam Const alert, oriented x3, no apparent distress, average body habitus, no limitations and well nourished Constitutional Narrative: The patient appears relatively weak and frail, though is conversant and appropriate. Tremors are noted, consistent with the patient's diagnosis of Parkinson's disease. General Appearance: cooperative, comfortable, well kempt and well developed Orientation / Consciousness: awake, oriented to p (more content not included)... Normal [facility] Urine Cultureon 02-20-2024 [facility] Copy of report sent to Infection Control Printer [id number] 02/20/24 1337 MARIAH. Meth. resistant Staph. aureus [place] Count <1000 mecA Testing not performed Stephania albicans [place] Count 1000-10,000 Meth. resistant Staph. aureus: REACTION cefOXitin Susc Islt POS Doxycycline Islt CHANELL 8 I Clindamycin.induced Susc Islt NEG Gentamicin Islt CHANELL <=0.5 S Linezolid Islt CHANELL 4 S Nitrofurantoin Islt CHANELL <=16 S Oxacillin Susc Islt >=4 R Tetracycline Islt CHANELL >=16 R TMP SMX Islt CHANELL >=320 R Vancomycin Islt CHANELL [address] S [address] [facility] Comment on above: Performed By: #### M 100.2200 ####[facility] [address] [place], [address] Basophil percentageOrdered B y: Ravi Conway on 02-17-2024 Basophil percentage 50-100 SEEN /hpf 0-[address] [facility] Bilirubin Test strip Ql (U)O rdered By: Ravi Conway on 02-17-2024 Bilirubin Ql (U) Negative Negative [facility] Culture, urineOrdered By: Jono Conway on 02-17-2024 Bacteria identified Cx Nom (U) Meth. resistant Staph. aureus [facility] Bacteria identified Cx Nom (U) Stephania albicans [facility] Ketones Test strip Ql (U)Ord ered By: Ravi Conway on 02-17-2024 Ketones Ql (U) 5 mg/dl Negative [facility] Mucus LM Ql (Urine sed)Order ed By: Ravi Conway on 02-17-2024 Mucus Ql (Urine sed) 0 SEEN /hpf [facility] Nitrite Test strip Ql (U)Ord ered By: Ravi Conway on 02-17-2024 Nitrite Ql (U) Negative Negative [facility] No Panel InformationOrdered By: Ravi Conway on 02-17-2024 Urine RBC 10-25 SEEN /hpf 0-[address] [facility] Protein Test strip Ql (U)Ord ered By: Ravi Conway on 02-17-2024 Protein Ql (U) 15 mg/dl Negative [facility] Squamous epithelial cells de tection in urine sediment by light microscopyOrdered By: Ravi Conway on 02-17-2024 Epithelial cells.squamous LM Ql (Urine sed) 5-10 SEEN /hpf 0-[address] [facility] Urinalysis, Completeon 02-16 BACTERIA 1+ /hpf Normal None Seen [facility] Comment on above: Order Comment: AVA TER SPECIMEN Performed By: #### L 400.0001 ####[facility] [address] [place], [address] EPI,SQUAMOUS 5-10 SEEN Normal 0-[address] [facility] Comment on above: Order Comment: AVA TER SPECIMEN Performed By: #### L 400.0001 ####[facility] [address] [place], [address] RBC 10-25 SEEN Normal 0-[address] [facility] Comment on above: Order Comment: AVA TER SPECIMEN Performed By: #### L 400.0001 ####[facility] [address] [place], [address] WBC 50-100 SEEN Normal 0-[address] [facility] Comment on above: Order Comment: AVA TER SPECIMEN Performed By: #### L 400.0001 ####[facility] [address] [place], [address] Mucus Ql (Urine sed) 0 SEEN Normal [facility] Comment on above: Order Comment: AVA TER SPECIMEN Performed By: #### L 400.0001 ####[facility] [address] [place], [place], [address] Urine blood detectionOrdered By: Ravi Conway on 02-17-2024 RBC Ql (U) 50 /ul Negative [facility] Urine clarityOrdered By: Ravi Conway on 02-17-2024 Clarity (U) Sl. Cloudy Clear [facility] Urine color determinationOrd ered By: Ravi Conway on 02-17-2024 Color (U) Yellow Yellow [facility] Urine glucose detectionOrder ed By: Ravi Conway on 02-17-2024 Glucose Ql (U) Normal mg/dl Normal [facility] Urine leukocyte esterase det ection by dipstickOrdered By: Ravi Conway on 02-17-2024 Leukocyte esterase Test strip Ql (U) 500 /ul Negative [facility] Urine pHOrdered By: Ravi Conway on 02-17-2024 pH (U) 5.0 [pH] 5.0 - 8.[address] [facility] Urine sediment bacteria coun t by microscopy (number/high power field)Ordered By: Ravi Conway on 02-17-2024 Bacteria LM.HPF (Urine sed) [#/Area] 1 /[HPF] None Seen [facility] Urine specific gravity measu rementOrdered By: Ravi Conway on 02-17-2024 Specific gravity (U) [Rel density] 1.025 1.002-1.[address] [facility] Urine urobilinogen measureme ntOrdered By: Ravi Conway on 02-17-2024 Urobilinogen Ql (U) Normal mg/dl Normal [facility] Absolute lymphocyte countOrd ered By: Ravi Man on 01-28-2024 Lymphocytes Auto (Unsp spec) [#/Vol] 1.32 10*3/uL 0.83-4.[address] [facility] Automated lymphocyte count a s percentage of total leukocytesOrdered By: Ravi Conway on 01-28-2024 Lymphocytes/100 WBC Auto (Unsp spec) 24.9 % 19-[address] [facility] Basophil percentageOrdered B y: Ravi Conway on 01-28-2024 Basophils/100 WBC (Bld) 0.6 % 0-1 [facility] Chloride [Moles/Vol] 104 mmol/L 98-107 [facility] Eosinophils/100 WBC (Bld) 2.8 % 0-[address] [facility] Glucose [Mass/Vol] 96 mg/dL 74-106 [facility] Hemoglobin (Bld) [Mass/Vol] 11.0 g/dL 13.0-16.[address] [facility] Monocytes/100 WBC (Bld) 9.2 % 0-10 [facility] Neutrophils (Bld) [#/Vol] 3.3 10*3/uL 2.0-7.[address] [facility] Neutrophils/100 WBC (Bld) 61.9 % 47-[address] [facility] Potassium [Moles/Vol] 3.9 mmol/L 3.5-5.1 [facility] Sodium [Moles/Vol] 139 mmol/L 136-145 [facility] WBC (Bld) [#/Vol] 5.3 10*3/uL 4.4-11.0 [facility] Determination of erythrocyte mean corpuscular volume (MCV)Ordered By: Ravi Cownay on 01-28-2024 MCV (RBC) [Entitic vol] 96.8 fL 80-94 [facility] Erythrocyte distribution wid th ratioOrdered By: Ravi Conway on 01-28-2024 Erythrocyte distribution width (RBC) [Ratio] 15.1 % 11.6-14.[address] [facility] Erythrocyte distribution wid th standard deviationOrdered By: Ravi Conway on 01-28-2024 Erythrocyte distribution width (RBC) [Entitic vol] 53.5 fL 35.1-43.9 [facility] Hematocrit Auto (Bld) [Volum e fraction]Ordered By: Ravi Conway on 01-28-2024 Hematocrit (Bld) [Volume fraction] 33.8 % 40-[address] [facility] Immature granulocytes/100 WB C Auto (Bld)Ordered By: Ravi Conway 01-28-2024 Immature granulocytes/100 WBC (Bld) 0.600 % 0.0-0.[address] [facility] Comment on above: IG% - Immature Granu locytes (promyelocytes, myelocytes and metamyelocytes) > 1% indicates that a LEFT SHIFT is Present. Laboratory - Chemistry and C hemistry - challengeOrdered By: Ravi Conway on 01-28-2024 CO2 [Moles/Vol] 26.0 mmol/L 21.0-32.[address] [facility] Urea nitrogen/Creatinine [Mass ratio] 26.5 mg/mg 10-[address] [facility] Laboratory - Hematology and Cell countsOrdered By: Ravi Conway 01-28-2024 MCH (RBC) [Entitic mass] 31.5 pg 27.0-32.[address] [facility] MCHC (RBC) [Mass/Vol] 32.5 g/dL 32-36 [facility] Nucleated RBC/100 WBC (Bld) [Ratio] 0 % 0-[address] [facility] Platelet mean volume (Bld) [Entitic vol] 10.7 fL 6.2-12.[address] [facility] Platelets (Bld) [#/Vol] 218 10*3/uL 150-[address] [facility] No Panel InformationOrdered By: Ravi Conway on 01-28-2024 Estimated Creatinine Clearance Calc 66.79 ml/min [facility] Estimated GFR (MDRD) Amer 110 mL/min >[address] [facility] Comment on above: GFR Calc Estimated GFR (MDRD) Non-Af Amer 91 mL/min >[address] [facility] Comment on above: Non- GFR Calc RBC Auto (Bld) [#/Vol]Ordere d By: Ravi Conway on 01-28-2024 RBC (Bld) [#/Vol] 3.49 10*6/uL 4.6-6.2 [facility] [place], [place] Serum or plasma calcium katherine urement (mass/volume)Ordered By: Ravi Conway on 01-28-2024 Calcium [Mass/Vol] 8.4 mg/dL 8.5-10.1 [facility] [place], [place] Serum or plasma creatinine m easurement (mass/volume)Ordered By: Ravi Conway on 01-28-2024 Creatinine [Mass/Vol] 0.87 mg/dL 0.70-1.30 [facility] Comment on above: The validity of the calculated GFR & GFRAA in patients over 70 years has not been determined. Clinical correlation is essential. Serum or plasma urea nitroge n measurement (mass/volume)Ordered By: Ravi Conway on 01-28-2024 Urea nitrogen [Mass/Vol] 23 mg/dL 7-[address] [facility] Thin prep Papanicolaou smear with manual screeningOrdered By: Ravi Conway on 01-28-2024 Thin prep Papanicolaou smear with manual screening 9 5-[address] [facility] Urine sediment yeast count b y microscopy (number/high powered field)Ordered By: Ravi Conway on 01-06-2024 Yeast LM.HPF (Urine sed) [#/Area] 2 /[HPF] None Seen [facility] Iron measurement (mass/mass) Ordered By: Ravi Conway on 12-25-2023 Iron (Unsp spec) [Mass/Mass] 25 ug/dL 65-[address] [facility] Basophil percentageOrdered B y: Pito Nickerson on 12-24-2023 LDH [Catalytic activity/Vol] 188 U/L 87-[address] [facility] Absolute lymphocyte countOrd ered By: Kristian Giles on 12-23-2023 Lymphocytes Auto (Unsp spec) [#/Vol] 1.02 10*3/uL 0.83-4.[address] [facility] Automated lymphocyte count a s percentage of total leukocytesOrdered By: Kristian Giles on 12-23-2023 Lymphocytes/100 WBC Auto (Unsp spec) 12.8 % 19-[address] [facility] Basophil percentageOrdered B y: Kristian Giles on 12-23-2023 Basophils/100 WBC (Bld) 0.6 % 0-1 [facility] Chloride [Moles/Vol] 106 mmol/L 98-107 [facility] Eosinophils/100 WBC (Bld) 1.1 % 0-[address] [facility] Glucose [Mass/Vol] 98 mg/dL 74-106 [facility] Hemoglobin (Bld) [Mass/Vol] 8.3 g/dL 13.0-16.[address] [facility] Monocytes/100 WBC (Bld) 5.5 % 0-10 [facility] Neutrophils (Bld) [#/Vol] 6.2 10*3/uL 2.0-7.[address] [facility] Neutrophils/100 WBC (Bld) 77.7 % 47-[address] [facility] Potassium [Moles/Vol] 3.9 mmol/L 3.5-5.1 [facility] Sodium [Moles/Vol] 135 mmol/L 136-145 [facility] WBC (Bld) [#/Vol] 8.0 10*3/uL 4.4-11.0 [facility] Determination of erythrocyte mean corpuscular volume (MCV)Ordered By: Kristian Giles on 12-23-2023 MCV (RBC) [Entitic vol] 94.4 fL 80-94 [facility] Erythrocyte distribution wid th ratioOrdered By: Kristian Giles on 12-23-2023 Erythrocyte distribution width (RBC) [Ratio] 14.8 % 11.6-14.[address] [facility] Erythrocyte distribution wid th standard deviationOrdered By: Kristian Giles on 12-23-2023 Erythrocyte distribution width (RBC) [Entitic vol] 50.6 fL 35.1-43.9 [facility] Hematocrit Auto (Bld) [Volum e fraction]Ordered By: Kristian Giles on 12-23-2023 Hematocrit (Bld) [Volume fraction] 25.1 % 40-[address] [facility] Immature granulocytes/100 WB C Auto (Bld)Ordered By: Kristian Giles on 12-23-2023 Immature granulocytes/100 WBC (Bld) 2.300 % 0.0-0.[address] [facility] Comment on above: IG% - Immature Granu locytes (promyelocytes, myelocytes and metamyelocytes) > 1% indicates that a LEFT SHIFT is Present. Laboratory - Chemistry and C hemistry - challengeOrdered By: Kristian Giles on 12-23-2023 CO2 [Moles/Vol] 27.0 mmol/L 21.0-32.[address] [facility] Urea nitrogen/Creatinine [Mass ratio] 16.1 mg/mg 10-[address] [facility] Laboratory - Hematology and Cell countsOrdered By: Kristian Giles on 12-23-2023 MCH (RBC) [Entitic mass] 31.2 pg 27.0-32.[address] [facility] MCHC (RBC) [Mass/Vol] 33.1 g/dL 32-36 [facility] Nucleated RBC/100 WBC (Bld) [Ratio] 0 % 0-[address] [facility] Platelet mean volume (Bld) [Entitic vol] 10.3 fL 6.2-12.[address] [facility] Platelets (Bld) [#/Vol] 287 10*3/uL 150-[address] [facility] No Panel InformationOrdered By: Kristian Giles on 12-23-2023 Estimated Creatinine Clearance Calc 79.84 ml/min [facility] Estimated GFR (MDRD) Amer 130 mL/min >[address] [facility] Comment on above: GFR Calc Estimated GFR (MDRD) Non-Af Amer 108 mL/min >[address] [facility] Comment on above: Non- GFR Calc RBC Auto (Bld) [#/Vol]Ordere d By: Kristian Giles on 12-23-2023 RBC (Bld) [#/Vol] 2.66 10*6/uL 4.6-6.2 [place] [facility] [place] [place] Serum or plasma calcium katherine urement (mass/volume)Ordered By: Kristian Giles on 12-23-2023 Calcium [Mass/Vol] 7.8 mg/dL 8.5-10.1 [facility] [place] [place] Serum or plasma creatinine m easurement (mass/volume)Ordered By: Kristian Giles on 12-23-2023 Creatinine [Mass/Vol] 0.75 mg/dL 0.70-1.30 [facility] Comment on above: The validity of the calculated GFR & GFRAA in patients over 70 years has not been determined. Clinical correlation is essential. Serum or plasma urea nitroge n measurement (mass/volume)Ordered By: Kristian Giles on 12-23-2023 Urea nitrogen [Mass/Vol] 12 mg/dL 7-[address] [facility] Thin prep Papanicolaou smear with manual screeningOrdered By: Kristian Giles on 12-23-2023 Thin prep Papanicolaou smear with manual screening 2 5-[address] [facility] Basophil percentageOrdered B y: Surjit Kirkland on 12-20-2023 Basophil percentage 10-25 SEEN /hpf 0-[address] [facility] Bilirubin Test strip Ql (U)O rdered By: Surjit Kirkland on 12-20-2023 Bilirubin Ql (U) Negative Negative [facility] Ketones Test strip Ql (U)Ord ered By: Surjit Kirkland on 12-20-2023 Ketones Ql (U) 15 mg/dl Negative [facility] Mucus LM Ql (Urine sed)Order ed By: Surjit Kirkland on 12-20-2023 Mucus Ql (Urine sed) 0 SEEN /hpf [facility] Nitrite Test strip Ql (U)Ord ered By: Surjit Kirkland on 12-20-2023 Nitrite Ql (U) Negative Negative [facility] No Panel InformationOrdered By: Surjit Kirkland on 12-20-2023 Urine RBC 25-50 SEEN /hpf 0-[address] [facility] Protein Test strip Ql (U)Ord ered By: Surjit Kirkland on 12-20-2023 Protein Ql (U) 30 mg/dl Negative [facility] Squamous epithelial cells de tection in urine sediment by light microscopyOrdered By: Surjit Kirkland on 12-20-2023 Epithelial cells.squamous LM Ql (Urine sed) 0-5 SEEN /hpf 0-[address] [facility] Urine blood detectionOrdered By: Surjit Kirkland on 12-20-2023 RBC Ql (U) 250 /ul Negative [facility] Urine clarityOrdered By: Chanell Kirkland on 12-20-2023 Clarity (U) Sl. Cloudy Clear [facility] Urine color determinationOrd ered By: Surjit Kirkland on 12-20-2023 Color (U) Yellow Yellow [facility] Urine glucose detectionOrder ed By: Surjit Kirkland on 12-20-2023 Glucose Ql (U) Normal mg/dl Normal [facility] Urine leukocyte esterase det ection by dipstickOrdered By: Surjit Kirkland on 12-20-2023 Leukocyte esterase Test strip Ql (U) 100 /ul Negative [facility] Urine pHOrdered By: Surjit Kirkland on 12-20-2023 pH (U) 5.0 [pH] 5.0 - 8.[address] [facility] Urine sediment bacteria coun t by microscopy (number/high power field)Ordered By: Surjit Kirkland on 12-20-2023 Bacteria LM.HPF (Urine sed) [#/Area] 1 /[HPF] None Seen [facility] Urine specific gravity measu rementOrdered By: Surjit Kirkland on 12-20-2023 Specific gravity (U) [Rel density] 1.025 1.002-1.[address] [facility] Urine urobilinogen measureme ntOrdered By: Surjit Kirkland on 12-20-2023 Urobilinogen Ql (U) 1 mg/dl Normal [facility] Basophil percentageOrdered B y: Missy Phelan on 12-19-2023 Basophil percentage 3.6 mg/dL 2.5-4.9 [facility] Blood manual differential co mment interpretation (narrative result)Ordered By: Surjit Kirkland on 12-17-2023 Manual differential comment Lakhwinder (Bld) [Interp] SCANNED [facility] Comment on above: LEFT SHIFT BANDS RAR E Laboratory - Chemistry and C hemistry - challengeOrdered By: Surjit Kirkland on 12-17-2023 Magnesium [Mass/Vol] 2.0 mg/dL 1.6-2.6 [facility] Serum or plasma trough vanco mycin levelOrdered By: Noman Chen on 12-17-2023 Vancomycin trough [Mass/Vol] 17.1 ug/mL 5.0-15.[address] [facility] Comment on above: VANCOMYCIN STANDARED DRUG THERAPY TROUGH LEVEL: 5.0 - 15.0 mg/L VANCOMYCIN HIGH INTENSITY THERAPY TROUGH LEVEL: 15.0 - 20.0 mg/L High Intensity therapy recommended for serious lifethreatening infections include:- Ulnpaqpvad-Wrlqksbvpssz-Citxsjddg (Ventilator/Healtcare Associated)-Sepsis PLEASE CONTACT PHARMACY SERVICES (#0375) FOR INTERPRETATIONOF RESULTS. Basophil percentageOrdered B y: Pito Nickerson on 12-16-2023 Bilirubin [Mass/Vol] 1.80 mg/dL 0.20-1.00 [facility] Comment on above: For patients on eltr ombopag therapy, use of Dimension Rochert TBIL is not recommended. Protein [Mass/Vol] 4.6 g/dL 6.4-8.2 [facility] Direct bilirubinOrdered By: Pito Nickerson on 12-16-2023 Bilirubin.direct [Mass/Vol] 0.53 mg/dL 0.00-0.[address] [facility] Laboratory - Chemistry and C hemistry - challengeOrdered By: Pito Nickerson on 12-16-2023 ALP [Catalytic activity/Vol] 38 U/L 45-[address] [facility] ALT [Catalytic activity/Vol] 21 U/L 16-[address] [facility] Globulin (S) [Mass/Vol] 2.8 g/dL 2.2-4.2 [facility] Thin prep Papanicolaou smear with manual screeningOrdered By: Pito Nickerson on 12-16-2023 Thin prep Papanicolaou smear with manual screening 1.8 g/dL 3.2-5.[address] [facility] Thin prep Papanicolaou smear with manual screening 19 U/L 15-[address] [facility] Laboratory - Chemistry and C hemistry - challengeOrdered By: Surjit Kirkland on 12-15-2023 Albumin/Globulin [Mass ratio] 0.8 {ratio} 0.9-2.[address] [facility] Basophil percentageOrdered B y: Noman Chen on 12-14-2023 Lactate [Moles/Vol] 1.3 mmol/L 0.4-2.0 [facility] Culture, urineOrdered By: Jeni Kirkland on 12-14-2023 Bacteria identified Cx Nom (U) Culture exhibits no growth. [facility] Bacteria identified Cx Nom (U) Culture exhibits no growth. [facility] Erythrocyte sedimentation ra teOrdered By: Noman Chen on 02-24-2024 ESR (Bld) [Velocity] 11 mm/h 0-20 [facility] Laboratory - Microbiology an d Antimicrobial susceptibilityOrdered By: Noman Chen on 12-14-2023 Bacteria identified Cx Nom (Bld) No growth in [address] [facility] Bacteria identified Cx Nom (Bld) No growth in [address] [facility] No Panel InformationOrdered By: Noman Chen on 12-14-2023 C-Reactive Protein Extended Range 176.00 mg/L 0.0-3.[address] [facility] Comment on above: C-Reactive Protein ( CRP) provides useful information for thediagnosis, therapy and monitoring of inflammatory processesand associated diseases. For the evaluation of Relative Riskfor Cardiovascular Disease, a High Sensitivity CRP (HSCRP)should be ordered. No Panel InformationOrdered By: Surjit Kirkland on 12-14-2023 Reactive Lymphocytes 1+ [facility] Review by pathologistOrdered By: Surjit Kirkland on 12-14-2023 Pathologist review Lakhwinder (Unsp spec) [Interp] Reviewed [facility] Comment on above: Previous reported re sult: Ysabel mejia Edited by: RGONAZ on 12/16/23:1427Neutrophilic leukocytosis.Clinical correlation necessary.Wm Hanson M.D. 12/16/23 AMENDED REPORT 12/16/23 1427 PATH REV previously reported as: Ysabel mejia Whole blood hemoglobin A1c/t otal hemoglobin ratio (mass fraction)Ordered By: Kelley Shankar on 12-14-2023 HbA1c (Bld) [Mass fraction] 5.5 % 3.8-5.[address] [facility] Comment on above: Normal < 5.7 % Predi abetic 5.7 - 6.4 % Diabetic >or= 6.5 % Please note range changes. Absolute lymphocyte countOrd ered By: ED PROVIDER on 12-13-2023 Lymphocytes Auto (Unsp spec) [#/Vol] 0.41 10*3/uL 0.83-4.[address] [facility] Automated lymphocyte count a s percentage of total leukocytesOrdered By: ED PROVIDER on 12-13-2023 Lymphocytes/100 WBC Auto (Unsp spec) 1.7 % 19-[address] [facility] Basophil percentageOrdered B y: Nikolay Rose on 12-13-2023 Basophil percentage 0-5 SEEN /hpf 0-5 [facility] Basophil percentageOrdered B y: ED PROVIDER on 12-13-2023 Basophils/100 WBC (Bld) 0.5 % 0-1 [facility] Bilirubin [Mass/Vol] 2.40 mg/dL 0.20-1.00 [facility] Comment on above: For patients on eltr ombopag therapy, use of Dimension Rochert TBIL is not recommended. Chloride [Moles/Vol] 101 mmol/L 98-107 [facility] Eosinophils/100 WBC (Bld) 0.0 % 0-[address] [facility] Glucose [Mass/Vol] 179 mg/dL 74-106 [facility] Comment on above: Fasting Glucose resu lt greater than or equal to 126 mg/dL suggests DIABETES MELLITUS per A.D.A. criteria. Hemoglobin (Bld) [Mass/Vol] 16.2 g/dL 13.0-16.[address] [facility] Monocytes/100 WBC (Bld) 4.2 % 0-10 [facility] Neutrophils (Bld) [#/Vol] 22.9 10*3/uL 2.0-7.[address] [facility] Neutrophils/100 WBC (Bld) 92.3 % 47-[address] [facility] Potassium [Moles/Vol] 4.5 mmol/L 3.5-5.1 [facility] Protein [Mass/Vol] 7.7 g/dL 6.4-8.2 [facility] Sodium [Moles/Vol] 136 mmol/L 136-145 [facility] WBC (Bld) [#/Vol] 24.8 10*3/uL 4.4-11.0 [facility] Bilirubin Test strip Ql (U)O rdered By: Nikolay Rose on 12-13-2023 Bilirubin Ql (U) 1 mg/dL Negative [facility] Comment on above: COLOR OF URINE MAY A FFECT DIPSTICK RESULTS. Blood manual differential co mment interpretation (narrative result)Ordered By: ED PROVIDER on 12-13-2023 Manual differential comment Lakhwinder (Bld) [Interp] SCANNED [facility] Determination of erythrocyte mean corpuscular volume (MCV)Ordered By: ED PROVIDER on 12-13-2023 MCV (RBC) [Entitic vol] 94.4 fL 80-94 [facility] Erythrocyte distribution wid th ratioOrdered By: ED PROVIDER on 12-13-2023 Erythrocyte distribution width (RBC) [Ratio] 14.5 % 11.6-14.[address] [facility] Erythrocyte distribution wid th standard deviationOrdered By: ED PROVIDER on 12-13-2023 Erythrocyte distribution width (RBC) [Entitic vol] 49.6 fL 35.1-43.9 [facility] Hematocrit Auto (Bld) [Volum e fraction]Ordered By: ED PROVIDER on 12-13-2023 Hematocrit (Bld) [Volume fraction] 46.8 % 40-[address] [facility] Immature granulocytes/100 WB C Auto (Bld)Ordered By: ED PROVIDER on 12-13-2023 Immature granulocytes/100 WBC (Bld) 1.300 % 0.0-0.[address] [facility] Comment on above: IG% - Immature Granu locytes (promyelocytes, myelocytes and metamyelocytes) > 1% indicates that a LEFT SHIFT is Present. Ketones Test strip Ql (U)Ord ered By: Nikolay Rose on 12-13-2023 Ketones Ql (U) 5 mg/dl Negative [facility] Laboratory - Chemistry and C hemistry - challengeOrdered By: ED PROVIDER on 12-13-2023 Albumin/Globulin [Mass ratio] 1.0 {ratio} 0.9-2.[address] [facility] ALP [Catalytic activity/Vol] 68 U/L 45-[address] [facility] ALT [Catalytic activity/Vol] 13 U/L 16-[address] [facility] CO2 [Moles/Vol] 27.0 mmol/L 21.0-32.[address] [facility] Globulin (S) [Mass/Vol] 3.9 g/dL 2.2-4.2 [facility] Urea nitrogen/Creatinine [Mass ratio] 21.8 mg/mg 10-[address] [facility] Laboratory - Chemistry and C hemistry - challengeOrdered By: Monica James on 12-13-2023 Lipase [Catalytic activity/Vol] 15 U/L 13-[address] [facility] Comment on above: Please note:LIPASE r evised reference range effective 23. New Lipase methodology. Expected to produce lower values than the previous assay method. NEW Reference Range: 13 - 75 U/L Laboratory - Hematology and Cell countsOrdered By: ED PROVIDER on 12-13-2023 MCH (RBC) [Entitic mass] 32.7 pg 27.0-32.[address] [facility] MCHC (RBC) [Mass/Vol] 34.6 g/dL 32-36 [facility] Nucleated RBC/100 WBC (Bld) [Ratio] 0 % 0-[address] [facility] Platelet mean volume (Bld) [Entitic vol] 11.0 fL 6.2-12.[address] [facility] Platelets (Bld) [#/Vol] 257 10*3/uL 150-[address] [facility] Mucus LM Ql (Urine sed)Order ed By: Nikolay Rose on 12-13-2023 Mucus Ql (Urine sed) 0 SEEN /hpf [facility] Nitrite Test strip Ql (U)Ord ered By: Nikolay Rose on 12-13-2023 Nitrite Ql (U) Positive Negative [facility] No Panel InformationOrdered By: Nikolay Rose on 12-13-2023 Urine RBC 0 SEEN /hpf 0-[address] [facility] No Panel InformationOrdered By: ED PROVIDER on 12-13-2023 Estimated Creatinine Clearance Calc 46.34 ml/min [facility] Estimated GFR (MDRD) Amer 67 mL/min >[address] [facility] Comment on above: GFR Calc Estimated GFR (MDRD) Non-Af Amer 55 mL/min >[address] [facility] Comment on above: Non- GFR Calc Protein Test strip Ql (U)Ord ered By: Nikolay Rose on 12-13-2023 Protein Ql (U) 30 mg/dl Negative [facility] RBC Auto (Bld) [#/Vol]Ordere d By: ED PROVIDER on 12-13-2023 RBC (Bld) [#/Vol] 4.96 10*6/uL 4.6-6.2 [facility] Review by pathologistOrdered By: ED PROVIDER on 12-13-2023 Pathologist review Lakhwinder (Unsp spec) [Interp] May foll [facility] Serum or plasma calcium katherine urement (mass/volume)Ordered By: ED PROVIDER on 12-13-2023 Calcium [Mass/Vol] 9.4 mg/dL 8.5-10.1 [facility] Serum or plasma creatinine m easurement (mass/volume)Ordered By: ED PROVIDER on 12-13-2023 Creatinine [Mass/Vol] 1.33 mg/dL 0.70-1.30 [facility] Comment on above: The validity of the calculated GFR & GFRAA in patients over 70 years has not been determined. Clinical correlation is essential. Serum or plasma urea nitroge n measurement (mass/volume)Ordered By: ED PROVIDER on 12-13-2023 Urea nitrogen [Mass/Vol] 29 mg/dL 7-[address] [facility] Squamous epithelial cells de tection in urine sediment by light microscopyOrdered By: Nikolay Rose on 12-13-2023 Epithelial cells.squamous LM Ql (Urine sed) 0 SEEN /hpf 0-[address] [facility] Thin prep Papanicolaou smear with manual screeningOrdered By: ED PROVIDER on 12-13-2023 Thin prep Papanicolaou smear with manual screening 3.8 g/dL 3.2-5.[address] [facility] Thin prep Papanicolaou smear with manual screening 23 U/L 15-[address] [facility] Thin prep Papanicolaou smear with manual screening 8 5-[address] [facility] Urine blood detectionOrdered By: Nikolay Rose on 12-13-2023 RBC Ql (U) 25 /ul Negative [facility] Urine clarityOrdered By: Frederick Rose on 12-13-2023 Clarity (U) Clear Clear [facility] Urine color determinationOrd ered By: Nikolay Rose on 12-13-2023 Color (U) Yellow Yellow [facility] Urine glucose detectionOrder ed By: Nikolay Roes on 12-13-2023 Glucose Ql (U) Normal mg/dl Normal [facility] Urine leukocyte esterase det ection by dipstickOrdered By: Nikolay Rose on 12-13-2023 Leukocyte esterase Test strip Ql (U) 25 /ul Negative [facility] Urine pHOrdered By: Nikolay yoder on 12-13-2023 pH (U) 5.0 [pH] 5.0 - 8.[address] [facility] Urine sediment bacteria coun t by microscopy (number/high power field)Ordered By: Nikolay Rose on 12-13-2023 Bacteria LM.HPF (Urine sed) [#/Area] 0 /[HPF] None Seen [facility] Urine specific gravity measu rementOrdered By: Nikolay Rose on 12-13-2023 Specific gravity (U) [Rel density] 1.015 1.002-1.[address] [facility] Urine urobilinogen measureme ntOrdered By: Nikolay Rose on 12-13-2023 Urobilinogen Ql (U) 4 mg/dl Normal [facility] Absolute lymphocyte countOrd ered By: Marcelo rFied on 12-04-2023 Lymphocytes Auto (Unsp spec) [#/Vol] 0.86 10*3/uL 0.83-4.[address] [facility] Automated lymphocyte count a s percentage of total leukocytesOrdered By: Marcelo Fried on 12-04-2023 Lymphocytes/100 WBC Auto (Unsp spec) 10.6 % 19-[address] [facility] Basophil percentageOrdered B y: Marcelo Fried on 12-04-2023 Basophils/100 WBC (Bld) 0.4 % 0-1 [facility] Bilirubin [Mass/Vol] 2.10 mg/dL 0.20-1.00 [facility] Comment on above: For patients on eltr ombopag therapy, use of Dimension Rochert TBIL is not recommended. Chloride [Moles/Vol] 107 mmol/L 98-107 [facility] Eosinophils/100 WBC (Bld) 0.4 % 0-[address] [facility] Glucose [Mass/Vol] 103 mg/dL 74-106 [facility] Comment on above: Fasting Glucose resu lt from 100 to 125 mg/dL suggests IMPAIRED HOMEOSTASIS per A.D.A. criteria. Hemoglobin (Bld) [Mass/Vol] 14.2 g/dL 13.0-16.[address] [facility] Monocytes/100 WBC (Bld) 6.0 % 0-10 [facility] Neutrophils (Bld) [#/Vol] 6.7 10*3/uL 2.0-7.[address] [facility] Neutrophils/100 WBC (Bld) 81.9 % 47-[address] [facility] Potassium [Moles/Vol] 3.6 mmol/L 3.5-5.1 [facility] Protein [Mass/Vol] 6.3 g/dL 6.4-8.2 [facility] Sodium [Moles/Vol] 140 mmol/L 136-145 [facility] WBC (Bld) [#/Vol] 8.1 10*3/uL 4.4-11.0 [facility] Determination of erythrocyte mean corpuscular volume (MCV)Ordered By: Marcelo Fried on 12-04-2023 MCV (RBC) [Entitic vol] 93.3 fL 80-94 [facility] Erythrocyte distribution wid th ratioOrdered By: Marcelo Fried on 12-04-2023 Erythrocyte distribution width (RBC) [Ratio] 14.2 % 11.6-14.[address] [facility] Erythrocyte distribution wid th standard deviationOrdered By: Marcelo Fried on 12-04-2023 Erythrocyte distribution width (RBC) [Entitic vol] 48.2 fL 35.1-43.9 [facility] Hematocrit Auto (Bld) [Volum e fraction]Ordered By: Marcelo Fried on 12-04-2023 Hematocrit (Bld) [Volume fraction] 42.1 % 40-[address] [facility] Immature granulocytes/100 WB C Auto (Bld)Ordered By: Marcelo Fried on 12-04-2023 Immature granulocytes/100 WBC (Bld) 0.700 % 0.0-0.[address] [facility] Comment on above: IG% - Immature Granu locytes (promyelocytes, myelocytes and metamyelocytes) > 1% indicates that a LEFT SHIFT is Present. Laboratory - Chemistry and C hemistry - challengeOrdered By: Marcelo Fried on 12-04-2023 Albumin/Globulin [Mass ratio] 1.1 {ratio} 0.9-2.[address] [facility] ALP [Catalytic activity/Vol] 59 U/L 45-[address] [facility] ALT [Catalytic activity/Vol] U/L 16-[address] [facility] CO2 [Moles/Vol] 24.0 mmol/L 21.0-32.[address] [facility] Globulin (S) [Mass/Vol] 3.0 g/dL 2.2-4.2 [facility] Urea nitrogen/Creatinine [Mass ratio] 19.3 mg/mg 10-[address] [facility] Laboratory - Hematology and Cell countsOrdered By: Marcelo Fried on 12-04-2023 MCH (RBC) [Entitic mass] 31.5 pg 27.0-32.[address] [facility] MCHC (RBC) [Mass/Vol] 33.7 g/dL 32-36 [facility] Nucleated RBC/100 WBC (Bld) [Ratio] 0 % 0-[address] [facility] Platelet mean volume (Bld) [Entitic vol] 10.9 fL 6.2-12.[address] [facility] Platelets (Bld) [#/Vol] 184 10*3/uL 150-[address] [facility] No Panel InformationOrdered By: Marcelo Fried on 12-04-2023 Estimated Creatinine Clearance Calc 72.20 ml/min [facility] Estimated GFR (MDRD) Amer 116 mL/min >[address] [facility] Comment on above: GFR Calc Estimated GFR (MDRD) Non-Af Amer 95 mL/min >[address] [facility] Comment on above: Non- GFR Calc RBC Auto (Bld) [#/Vol]Ordere d By: Marcelo Fried on 12-04-2023 RBC (Bld) [#/Vol] 4.51 10*6/uL 4.6-6.2 [facility] Serum or plasma calcium katherine urement (mass/volume)Ordered By: Marcelo Fried on 12-04-2023 Calcium [Mass/Vol] 8.2 mg/dL 8.5-10.1 [facility] Serum or plasma creatinine m easurement (mass/volume)Ordered By: Marcelo Fried on 12-04-2023 Creatinine [Mass/Vol] 0.83 mg/dL 0.70-1.30 [facility] Comment on above: The validity of the calculated GFR & GFRAA in patients over 70 years has not been determined. Clinical correlation is essential. Serum or plasma thyroid stim ulating hormone (TSH) measurement (units/volume)Ordered By: Marcelo Fried on 12-04-2023 TSH Qn 1.16 uIU/mL 0.358-3.[address] [facility] Serum or plasma urea nitroge n measurement (mass/volume)Ordered By: Marcelo Fried on 12-04-2023 Urea nitrogen [Mass/Vol] 16 mg/dL 7-[address] [facility] Thin prep Papanicolaou smear with manual screeningOrdered By: Marcelo Fried on 02-14-2024 Thin prep Papanicolaou smear with manual screening 3.3 g/dL 3.2-5.[address] [facility] Thin prep Papanicolaou smear with manual screening 27 U/L 15-[address] [facility] Thin prep Papanicolaou smear with manual screening 9 5-[address] [facility] Absolute lymphocyte countOrd ered By: Alfredo Singh on 12-03-2023 Lymphocytes Auto (Unsp spec) [#/Vol] 1.03 10*3/uL 0.83-4.[address] [facility] Automated lymphocyte count a s percentage of total leukocytesOrdered By: Alfredo Singh on 12-03-2023 Lymphocytes/100 WBC Auto (Unsp spec) 14.4 % 19-[address] [facility] Basophil percentageOrdered B y: Alfredo Singh on 12-03-2023 Basophils/100 WBC (Bld) 0.4 % 0-1 [facility] Chloride [Moles/Vol] 108 mmol/L 98-107 [facility] Eosinophils/100 WBC (Bld) 0.4 % 0-[address] [facility] Glucose [Mass/Vol] 108 mg/dL 74-106 [facility] Comment on above: Fasting Glucose resu lt from 100 to 125 mg/dL suggests IMPAIRED HOMEOSTASIS per A.D.A. criteria. Hemoglobin (Bld) [Mass/Vol] 15.0 g/dL 13.0-16.[address] [facility] Monocytes/100 WBC (Bld) 7.4 % 0-10 [facility] Neutrophils (Bld) [#/Vol] 5.5 10*3/uL 2.0-7.[address] [facility] Neutrophils/100 WBC (Bld) 76.8 % 47-[address] [facility] Potassium [Moles/Vol] 3.8 mmol/L 3.5-5.1 [facility] Sodium [Moles/Vol] 142 mmol/L 136-145 [facility] WBC (Bld) [#/Vol] 7.2 10*3/uL 4.4-11.0 [facility] Basophil percentage 0-5 SEEN /hpf 0-5 [facility] Bilirubin Test strip Ql (U)O rdered By: Alfredo Singh on 12-03-2023 Bilirubin Ql (U) Negative Negative [facility] Culture, urineOrdered By: Piotr Flores on 12-03-2023 Bacteria identified Cx Nom (U) Culture exhibits no growth. [facility] Bacteria identified Cx Nom (U) Culture exhibits no growth. [facility] Determination of erythrocyte mean corpuscular volume (MCV)Ordered By: Alfredo Singh on 12-03-2023 MCV (RBC) [Entitic vol] 92.9 fL 80-94 [facility] Erythrocyte distribution wid th ratioOrdered By: Alfredo Singh on 12-03-2023 Erythrocyte distribution width (RBC) [Ratio] 14.3 % 11.6-14.[address] [facility] Erythrocyte distribution wid th standard deviationOrdered By: Alfredo Singh on 12-03-2023 Erythrocyte distribution width (RBC) [Entitic vol] 48.2 fL 35.1-43.9 [facility] Hematocrit Auto (Bld) [Volum e fraction]Ordered By: Alfredo Singh on 12-03-2023 Hematocrit (Bld) [Volume fraction] 43.3 % 40-[address] [facility] Immature granulocytes/100 WB C Auto (Bld)Ordered By: Alfredo Singh on 12-03-2023 Immature granulocytes/100 WBC (Bld) 0.600 % 0.0-0.[address] [facility] Comment on above: IG% - Immature Granu locytes (promyelocytes, myelocytes and metamyelocytes) > 1% indicates that a LEFT SHIFT is Present. Ketones Test strip Ql (U)Ord ered By: Alfredo Singh on 12-03-2023 Ketones Ql (U) 5 mg/dl Negative [facility] Laboratory - Chemistry and C hemistry - challengeOrdered By: Alfredo Singh on 12-03-2023 CO2 [Moles/Vol] 27.0 mmol/L 21.0-32.[address] [facility] Urea nitrogen/Creatinine [Mass ratio] 21.5 mg/mg 10-[address] [facility] Laboratory - Hematology and Cell countsOrdered By: Alfredo Singh on 12-03-2023 MCH (RBC) [Entitic mass] 32.2 pg 27.0-32.[address] [facility] MCHC (RBC) [Mass/Vol] 34.6 g/dL 32-36 [facility] Nucleated RBC/100 WBC (Bld) [Ratio] 0 % 0-[address] [facility] Platelet mean volume (Bld) [Entitic vol] 10.5 fL 6.2-12.[address] [facility] Platelets (Bld) [#/Vol] 196 10*3/uL 150-[address] [facility] Laboratory - Microbiology an d Antimicrobial susceptibilityOrdered By: Alfredo Singh on 12-03-2023 SARS-CoV-2 (COVID-19) RNA RENÉE+probe Ql (Unsp spec) [facility] SARS-CoV-2 (COVID-19) RNA RNEÉE+probe Ql (Unsp spec) [facility] Mucus LM Ql (Urine sed)Order ed By: Alfredo Singh on 12-03-2023 Mucus Ql (Urine sed) 0 SEEN /hpf [facility] Nitrite Test strip Ql (U)Ord ered By: Alfredo Singh on 12-03-2023 Nitrite Ql (U) Negative Negative [facility] No Panel InformationOrdered By: Alfredo Singh on 12-03-2023 Estimated Creatinine Clearance Calc 63.30 ml/min [facility] Estimated GFR (MDRD) Amer 96 mL/min >[address] [facility] Comment on above: GFR Calc Estimated GFR (MDRD) Non-Af Amer 79 mL/min >[address] [facility] Comment on above: Non- GFR Calc Urine RBC 0-5 SEEN /hpf 0-[address] [facility] Protein Test strip Ql (U)Ord ered By: Alfredo Singh on 12-03-2023 Protein Ql (U) Negative Negative [facility] RBC Auto (Bld) [#/Vol]Ordere d By: Alfredo Singh on 12-03-2023 RBC (Bld) [#/Vol] 4.66 10*6/uL 4.6-6.2 [facility] Serum or plasma calcium katherine urement (mass/volume)Ordered By: Alfredo Singh on 12-03-2023 Calcium [Mass/Vol] 9.2 mg/dL 8.5-10.1 [facility] Serum or plasma creatinine m easurement (mass/volume)Ordered By: Alfredo Singh on 12-03-2023 Creatinine [Mass/Vol] 0.98 mg/dL 0.70-1.30 [facility] Comment on above: The validity of the calculated GFR & GFRAA in patients over 70 years has not been determined. Clinical correlation is essential. Serum or plasma urea nitroge n measurement (mass/volume)Ordered By: Alfredo Singh on 12-03-2023 Urea nitrogen [Mass/Vol] 21 mg/dL 7-[address] [facility] Squamous epithelial cells de tection in urine sediment by light microscopyOrdered By: Alfredo Singh on 12-03-2023 Epithelial cells.squamous LM Ql (Urine sed) 0 SEEN /hpf 0-[address] [facility] Thin prep Papanicolaou smear with manual screeningOrdered By: Alfredo Singh on 12-03-2023 Thin prep Papanicolaou smear with manual screening 7 5-[address] [facility] Urine blood detectionOrdered By: Alfredo Singh on 12-03-2023 RBC Ql (U) 25 /ul Negative [facility] Urine clarityOrdered By: Khris Singh on 12-03-2023 Clarity (U) Clear Clear [facility] Urine color determinationOrd ered By: Alfredo Singh on 12-03-2023 Color (U) Yellow Yellow [facility] Urine glucose detectionOrder ed By: Alfredo Singh on 12-03-2023 Glucose Ql (U) Normal mg/dl Normal [facility] Urine leukocyte esterase det ection by dipstickOrdered By: Alfredo Singh on 12-03-2023 Leukocyte esterase Test strip Ql (U) 25 /ul Negative [facility] Urine pHOrdered By: Alfredo campos on 12-03-2023 pH (U) 6.0 [pH] 5.0 - 8.[address] [facility] Urine sediment bacteria coun t by microscopy (number/high power field)Ordered By: Alfredo Singh on 12-03-2023 Bacteria LM.HPF (Urine sed) [#/Area] 0 /[HPF] None Seen [facility] Urine specific gravity measu rementOrdered By: Alfredo Singh on 12-03-2023 Specific gravity (U) [Rel density] 1.025 1.002-1.[address] [facility] Urine urobilinogen measureme ntOrdered By: Alfredo Singh on 12-03-2023 Urobilinogen Ql (U) Normal mg/dl Normal [facility] Absolute lymphocyte countOrd ered By: Dr. Montaño on 02-06-2023 Lymphocytes Auto (Unsp spec) [#/Vol] 0.95 10*3/uL 0.83-4.[address] [facility] Basophil percentageOrdered B y: Dr. Montaño on 02-06-2023 Basophils/100 WBC (Bld) 0.9 % 0-1 [facility] Eosinophils/100 WBC (Bld) 0.5 % 0-[address] [facility] Neutrophils (Bld) [#/Vol] 4.2 10*3/uL 2.0-7.[address] [facility] Neutrophils/100 WBC (Bld) 74.9 % 47-[address] [facility] WBC (Bld) [#/Vol] 5.6 10*3/uL 4.4-11.0 [facility] Blood erythrocytes count (nu mber/volume)Ordered By: Dr. Montaño on 02-06-2023 RBC (Bld) [#/Vol] 4.96 10*6/uL 4.6-6.2 [facility] Blood hemoglobin measurement (mass/volume)Ordered By: Dr. Montaño on 02-06-2023 Hemoglobin (Bld) [Mass/Vol] 15.8 g/dL 13.0-16.[address] [facility] Blood lymphocytes/100 leukoc ytesOrdered By: Dr. Montaño on 02-06-2023 Lymphocytes/100 WBC (Bld) 16.9 % 19-[address] [facility] Blood monocytes/100 leukocyt esOrdered By: Dr. Montaño on 02-06-2023 Monocytes/100 WBC (Bld) 5.9 % 0-10 [facility] Blood platelet mean volumeOr dered By: Dr. Montaño on 02-06-2023 Platelet mean volume (Bld) [Entitic vol] 10.8 fL 6.2-12.[address] [facility] Determination of erythrocyte mean corpuscular volume (MCV)Ordered By: Dr. Montaño on 02-06-2023 MCV (RBC) [Entitic vol] 96.0 fL 80-94 [facility] Hematocrit Auto (Bld) [Volum e fraction]Ordered By: Dr. Montaño on 02-06-2023 Hematocrit (Bld) [Volume fraction] 47.6 % 40-[address] [facility] Laboratory - Hematology and Cell countsOrdered By: Dr. Montaño on 02-06-2023 Erythrocyte distribution width (RBC) [Entitic vol] 49.0 fL 35.1-43.9 [facility] Erythrocyte distribution width (RBC) [Ratio] 14.0 % 11.6-14.[address] [facility] Immature granulocytes/100 WBC (Bld) 0.900 % 0.0-0.[address] [facility] Comment on above: IG% - Immature Granu locytes (promyelocytes, myelocytes and metamyelocytes) > 1% indicates that a LEFT SHIFT is Present. MCH (RBC) [Entitic mass] 31.9 pg 27.0-32.[address] [facility] Nucleated RBC/100 WBC (Bld) [Ratio] 0 % 0-[address] [facility] MCHC Auto (RBC) [Mass/Vol]Or dered By: Dr. Montaño on 02-06-2023 MCHC (RBC) [Mass/Vol] 33.2 g/dL 32-36 [facility] No Panel InformationOrdered By: Dr. Montaño on 02-06-2023 Thyroid Stimulating Hormone (TSH) 1.30 uIU/mL 0.358-3.[address] [facility] Platelets bldOrdered By: Dr. Montaño on 02-06-2023 Platelets (Bld) [#/Vol] 209 10*3/uL 150-[address] [facility] Basophil percentageon 2021 Chloride [Moles/Vol] 101 mmol/L 98-107 [facility] Work Phone: Glucose [Mass/Vol] 117 mg/dL 74-106 [facility] Work Phone: Comment on above: Fasting Glucose resu lt from 100 to 125 mg/dL suggests IMPAIRED HOMEOSTASIS per A.D.A. criteria. Potassium [Moles/Vol] 3.7 mmol/L 3.5-5.1 [facility] Work Phone: Sodium [Moles/Vol] 135 mmol/L 136-145 [facility] Work Phone: WBC (Bld) [#/Vol] 6.5 10*3/uL 4.4-11.0 [facility] Work Phone: Blood erythrocytes count (nu mber/volume)on 08-21-2022 RBC (Bld) [#/Vol] 4.96 10*6/uL 4.6-6.2 [facility] Work Phone: Blood hemoglobin measurement (mass/volume)on 08-21-2022 Hemoglobin (Bld) [Mass/Vol] 16.1 g/dL 13.0-16.[address] [facility] Work Phone: Blood platelet mean volumeon 08-21-2022 Platelet mean volume (Bld) [Entitic vol] 10.3 fL 6.2-12.[address] [facility] Work Phone: Determination of erythrocyte mean corpuscular volume (MCV)on 08-21-2022 MCV (RBC) [Entitic vol] 94.2 fL 80-94 [facility] Work Phone: Hematocrit Auto (Bld) [Volum e fraction]on 08-21-2022 Hematocrit (Bld) [Volume fraction] 46.7 % 40-[address] [facility] Work Phone: Laboratory - Chemistry and C hemistry - challengeon 08-21-2022 CO2 [Moles/Vol] 28.0 mmol/L 21.0-32.[address] [facility] Work Phone: Urea nitrogen/Creatinine [Mass ratio] 17.6 mg/mg 10-[address] [facility] Work Phone: Laboratory - Hematology and Cell countson 08-21-2022 Erythrocyte distribution width (RBC) [Entitic vol] 48.5 fL 35.1-43.9 [facility] Work Phone: Erythrocyte distribution width (RBC) [Ratio] 14.1 % 11.6-14.[address] [facility] Work Phone: MCH (RBC) [Entitic mass] 32.5 pg 27.0-32.[address] [facility] Work Phone: MCHC Auto (RBC) [Mass/Vol]on 08-21-2022 MCHC (RBC) [Mass/Vol] 34.5 g/dL 32-36 [facility] Work Phone: No Panel Informationon 08-21 Estimated GFR (MDRD) Amer 86 mL/min >[address] [facility] Work Phone: Comment on above: GFR Calc Estimated GFR (MDRD) Non-Af Amer 71 mL/min >[address] [facility] Work Phone: Comment on above: Non- GFR Calc Platelets bldon 08-21-2022 Platelets (Bld) [#/Vol] 221 10*3/uL 150-[address] [facility] Work Phone: Serum or plasma calcium katherine urement (mass/volume)on 08-21-2022 Calcium [Mass/Vol] 9.1 mg/dL 8.5-10.1 [facility] Work Phone: Serum or plasma creatinine m easurement (mass/volume)on 08-21-2022 Creatinine [Mass/Vol] 1.08 mg/dL 0.70-1.30 [facility] Work Phone: Comment on above: The validity of the calculated GFR & GFRAA in patients over 70 years has not been determined. Clinical correlation is essential. Serum or plasma urea nitroge n measurement (mass/volume)on 08-21-2022 Urea nitrogen [Mass/Vol] 19 mg/dL 7-[address] [facility] Work Phone: Thin prep Papanicolaou smear with manual screeningon 08-21-2022 Thin prep Papanicolaou smear with manual screening 6 5-[address] [facility] Work Phone: Basophil percentageon 2021 Chloride [Moles/Vol] 103 mmol/L 98-107 [facility] Work Phone: Glucose [Mass/Vol] 98 mg/dL 74-106 [facility] Work Phone: Potassium [Moles/Vol] 3.7 mmol/L 3.5-5.1 [facility] Work Phone: Sodium [Moles/Vol] 138 mmol/L 136-145 [facility] Work Phone: Laboratory - Chemistry and C hemistry - challengeon 02-06-2022 CO2 [Moles/Vol] 30.0 mmol/L 21.0-32.[address] [facility] Work Phone: Urea nitrogen/Creatinine [Mass ratio] 15.1 mg/mg 10-[address] [facility] Work Phone: No Panel Informationon 02-06 Urine Microalbumin/Creatinine Ratio 11.5 mg/g CRE <[address] [facility] Work Phone: Estimated GFR (MDRD) Amer 88 mL/min >[address] [facility] Work Phone: Comment on above: GFR Calc Estimated GFR (MDRD) Non-Af Amer 72 mL/min >[address] [facility] Work Phone: Comment on above: Non- GFR Calc Serum or plasma calcium katherine urement (mass/volume)on 02-06-2022 Calcium [Mass/Vol] 9.0 mg/dL 8.5-10.1 [facility] Work Phone: Serum or plasma creatinine m easurement (mass/volume)on 02-06-2022 Creatinine [Mass/Vol] 1.06 mg/dL 0.70-1.30 [facility] Work Phone: Comment on above: The validity of the calculated GFR & GFRAA in patients over 70 years has not been determined. Clinical correlation is essential. Serum or plasma urea nitroge n measurement (mass/volume)on 02-06-2022 Urea nitrogen [Mass/Vol] 16 mg/dL 7-[address] [facility] Work Phone: Thin prep Papanicolaou smear with manual screeningon 02-06-2022 Thin prep Papanicolaou smear with manual screening 22.6 mg/L NO RANGE EST. [facility] Work Phone: Thin prep Papanicolaou smear with manual screening 5 5-[address] [facility] Work Phone: Urine creatinine measurement (mass/volume)on 02-06-2022 Creatinine (U) [Mass/Vol] 196.00 mg/dL NO RANGE EST. [facility] Work Phone: Vital Signs Date Time Vital Sign Value Performing Clinician Facility 12-01-2024 17:42-0500 Body temperature 98.49 [degF] Meghna Best [employer] Work Phone: [facility] 12-01-2024 17:42-0500 Diastolic blood pressure 70 mm[Hg] Meghna Best [employer] Work Phone: [facility] 12-01-2024 17:42-0500 Heart rate 64 /min Meghna Best [employer] Work Phone: [facility] 12-01-2024 17:42-0500 Respiratory rate 16 /min Meghna Best [employer] Work Phone: [facility] 12-01-2024 17:42-0500 SaO2% (BldA) [Mass fraction] 98 % Meghna Best [employer] Work Phone: [facility] 12-01-2024 17:42-0500 Systolic blood pressure 156 mm[Hg] Meghna Best [employer] Work Phone: [facility] 11-30-2024 03:58-0500 Body height 177.8 cm Meghna Best [employer] Work Phone: [facility] 11-30-2024 03:58-0500 Body mass index (BMI) [Ratio] 21.09 kg/m2 Meghna Best [employer] Work Phone: [facility] 11-30-2024 03:58-0500 Body weight 66.68 kg Meghna Best [employer] Work Phone: [facility] 11-30-2024 01:53-0500 Body temperature 98.2 [degF] Dr. Sarika Montaño MD Work Phone: [facility] 11-30-2024 01:53-0500 Diastolic blood pressure 75 mm[Hg] Dr. Sarika Montaño MD Work Phone: [facility] 11-30-2024 01:53-0500 Heart rate 71 /min Dr. Sarika Montaño MD Work Phone: [phone])770-542180 [place] [address] 11-30-2024 01:53-0500 Respiratory rate 18 /min Dr. Sarika Montaño MD Work Phone: [phone] [place] [address] 11-30-2024 01:53-0500 SaO2% (BldA) [Mass fraction] 97 % Dr. Sarika Montaño MD Work Phone: 4([phone])950-027080 [place] [address] 11-30-2024 01:53-0500 Systolic blood pressure 128 mm[Hg] Dr. Sarika Montaño MD Work Phone: 7([phone] [place] [address] 11-29-2024 14:30-0500 Body height 177.[address] Sarika Montaño MD Work Phone: 1([phone] [place] [address] 11-29-2024 14:30-0500 Body mass index (BMI) [Ratio] 21.8 kg/m2 Dr. Sarika Montaño MD Work Phone: 9(224)237-119980 [place] [address] 11-29-2024 14:30-0500 Body weight 69.[address] Sarika Montaño MD Work Phone: [facility] 02-21-2024 08:14-0400 Diastolic blood pressure 64 mm[Hg] Dr. Sarika Montaño Work Phone: 6(572)021-278880 [place] [address] 02-21-2024 08:14-0400 Heart rate 62 /min Dr. Sarika Montaño Work Phone: [facility] 02-21-2024 08:14-0400 Systolic blood pressure 127 mm[Hg] Dr. Sarika Montaño Work Phone: 3([phone])207-689480 [place] [address] 02-21-2024 04:06-0400 SaO2% (BldA) [Mass fraction] 97 % Dr. Sarika Montaño Work Phone: 2(022)743-688380 [place] [address] 02-20-2024 13:42-0400 Body temperature 97.7 [degF] Dr. Sarika Montaño Work Phone: 5([phone])[phone] [address] 02-20-2024 08:26-0400 Respiratory rate 18 /min Dr. Sarika Montaño Work Phone: 0([phone])[phone] [address] 02-18-2024 09:00-0400 Body mass index (BMI) [Ratio] 21.4 kg/m2 Dr. Sarika Montaño Work Phone: 3(879)[phone] [place] [address] 02-18-2024 09:00-0400 Body weight 67.[address] Sarika Montaño Work Phone: 4(562)[phone] [address] 02-12-2024 13:11-0400 Body height 177.[address] Sarika Montaño Work Phone: 9([phone])745-912480 [place] [address] 12-24-2023 11:19-0500 Body temperature 98.6 [degF] Dr. Sarika Montaño Work Phone: 0([phone] [place] [address] 12-24-2023 11:19-0500 Diastolic blood pressure 65 mm[Hg] Dr. Sarika Montaño Work Phone: 2([phone] [address] 12-24-2023 11:19-0500 Heart rate 69 /min Dr. Sarika Montaño Work Phone: [phone] [place] [address] 12-24-2023 11:19-0500 Respiratory rate 16 /min Dr. Sarika Montaño Work Phone: [phone] [place] [address] 12-24-2023 11:19-0500 SaO2% (BldA) [Mass fraction] 97 % Dr. Sarika Montaño Work Phone: [phone] [place] [address] 12-24-2023 11:19-0500 Systolic blood pressure 115 mm[Hg] Dr. Sarika Montaño Work Phone: [phone] [place] [address] 12-24-2023 03:45-0500 Body mass index (BMI) [Ratio] 24.7 kg/m2 Dr. Sarika Montaño Work Phone: [facility] 12-24-2023 03:45-0500 Body weight 78.[address] Sarika Montaño Work Phone: [facility] 12-23-2023 14:20-0500 Body height 177.[address] Sarika Montaño Work Phone: [facility] 12-16-2023 11:30-0500 Inhaled oxygen concentration 95 % Dr. Sarika Montaño Work Phone: [facility] 12-16-2023 05:00-0500 Inhaled oxygen flow rate 2 L/min Dr. Sarika Montaño Work Phone: [facility] 12-13-2023 15:54-0500 Body height 177.8 cm [facility] 12-13-2023 15:54-0500 Body mass index (BMI) [Ratio] 22.2 kg/m2 [facility] 12-13-2023 15:54-0500 Body weight 70.44 kg [facility] 12-13-2023 15:54-0500 Diastolic blood pressure 92 mm[Hg] [facility] 12-13-2023 15:54-0500 Heart rate 89 /min [facility] 12-13-2023 15:54-0500 Respiratory rate 12 /min [facility] 12-13-2023 15:54-0500 SaO2% (BldA) [Mass fraction] 99 % [facility] 12-13-2023 15:54-0500 Systolic blood pressure 163 mm[Hg] [facility] 12-13-2023 15:14-0500 Body temperature 97.2 [degF] [facility] 12-04-2023 11:33-0500 Body temperature 97.6 [degF] [facility] 12-04-2023 11:33-0500 Diastolic blood pressure 72 mm[Hg] [facility] 12-04-2023 11:33-0500 Heart rate 67 /min [facility] 12-04-2023 11:33-0500 Respiratory rate 16 /min [facility] 12-04-2023 11:33-0500 SaO2% (BldA) [Mass fraction] 98 % [facility] 12-04-2023 11:33-0500 Systolic blood pressure 116 mm[Hg] [facility] 12-04-2023 05:43-0500 Body mass index (BMI) [Ratio] 21.6 kg/m2 [facility] 12-04-2023 05:43-0500 Body weight 68.49 kg [facility] 12-04-2023 02:16-0500 Body height 177.8 cm [facility] 12-04-2023 02:16-0500 Body mass index (BMI) [Ratio] 21.7 kg/m2 [facility] 12-04-2023 02:16-0500 Body weight 68.49 kg [facility] 12-04-2023 00:00-0500 Body temperature 98 [degF] [facility] 12-04-2023 00:00-0500 Diastolic blood pressure 98 mm[Hg] [facility] 12-04-2023 00:00-0500 Heart rate 68 /min [facility] 12-04-2023 00:00-0500 Respiratory rate 13 /min [facility] 12-04-2023 00:00-0500 SaO2% (BldA) [Mass fraction] 97 % [facility] 12-04-2023 00:00-0500 Systolic blood pressure 157 mm[Hg] [facility] 02-27-2023 11:22-0400 Body height 177.8 cm Molly Mathew APRN.SURGERY MANAGER Work Phone: [facility] 02-27-2023 11:22-0400 Diastolic blood pressure 77 mm[Hg] Molly Mathwe APRN.SURGERY MANAGER Work Phone: [facility] 02-27-2023 11:22-0400 Heart rate 60 /min Molly Mathew APRN.SURGERY MANAGER Work Phone: [facility] 02-27-2023 11:22-0400 SaO2% (BldA) [Mass fraction] 98 % Molly Mathew HOOP RIVETING MACHINE OPERATOR.SURGERY MANAGER Work Phone: [facility] 02-27-2023 11:22-0400 Systolic blood pressure 168 mm[Hg] Molly Mathew HOOP RIVETING MACHINE OPERATOR.SURGERY MANAGER Work Phone: [facility] 08-29-2022 12:49-0500 SaO2% (BldA) [Mass fraction] 99 % Claude Kyle MD Work Phone: [facility] 08-29-2022 12:46-0500 Body weight 67 kg Claude Kyle MD Work Phone: [facility] 08-29-2022 12:46-0500 Diastolic blood pressure 79 mm[Hg] Claude Kyle MD Work Phone: [facility] 08-29-2022 12:46-0500 Heart rate 65 /min Claude Kyle MD Work Phone: [facility] 08-29-2022 12:46-0500 Systolic blood pressure 172 mm[Hg] Claude Kyle MD Work Phone: [facility] 01-24-2022 13:37-0400 SaO2% (BldA) [Mass fraction] 98 % Claude Kyle MD Work Phone: [facility] 01-24-2022 13:35-0400 Body height 177.8 cm Claude Kyle MD Work Phone: [facility] 01-24-2022 13:35-0400 Diastolic blood pressure 96 mm[Hg] Claude Kyle MD Work Phone: [facility] 01-24-2022 13:35-0400 Heart rate 86 /min Claude Kyle MD Work Phone: [facility] 01-24-2022 13:35-0400 Systolic blood pressure 162 mm[Hg] Claude Kyle MD Work Phone: [facility] Encounters Encounter Date Encounter Type Care Provider Facility Start: 02-04-2025 End: 02-05-2025 ambulatory [facility] Neurology Comment on above: Research Helps Us Un derstand Parkinson's Disease - Join Us To Learn How! Start: 02-04-2025 End: 02-05-2025 E-mail encounter from caregiver [facility] Provider Neurology Start: 01-25-2025 End: 01-25-[address] Sarika Montaño MD Work Phone: [facility] Work Phone: Start: 01-25-2025 End: 01-25-[address] Sarika Montaño MD -Laboratory, [facility] Work Phone: Start: 01-25-2025 End: 01-25-2025 ambulatory Sarika Montaño Facility:[facility] Start: 01-21-2025 End: 01-22-2025 ambulatory Molly Mathew APRN.SURGERY MANAGER Work Phone: [facility] Comment on above: Medications Refill Request Start: 12-29-2024 ambulatory SARIKA MONTAÑO Facility: [facility] Start: 11-30-2024 End: 12-01-2024 Evaluation and management of inpatient Meghna Allen LEATHA Work Phone: [phone] Comment on above: Abscess Start: 11-29-2024 ambulatory Matilde Brantley Facility:[facility] Start: 11-29-2024 Non-patient / Non-visit Dr. Surjit Kirkland MD -[facility] Start: 11-29-2024 End: 11-30-2024 Emergency department patient visit Dr. Matilde Brantley MD -Emergency Department Work Phone: Start: 10-08-2024 End: 10-08-2024 Refill Patience Otoole HOOP RIVETING MACHINE OPERATOR.SURGERY MANAGER Work Phone: [facility] Comment on above: Refill Request Start: 09-22-2024 End: 09-22-2024 ambulatory Sarika Montaño Facility:[facility] Start: 09-16-2024 End: 09-18-2024 Refill Patience Otoole APRN.SURGERY MANAGER Work Phone: [facility] Comment on above: Refill Request Start: 08-21-2024 End: 08-21-2024 ambulatory Claude Kyle MD Work Phone: [facility] Comment on above: Parkinson's disease with dyskinesia, unspecified whether manifestations fluctuate (HCC) (Primary Dx); Levodopa-induced dyskinesia Start: 08-21-2024 End: 08-21-2024 Telemedicine consultation with patient Claude Kyle MD Work Phone: [facility] Start: 08-13-2024 End: 08-13-2024 ambulatory Sarika S Jolliff Facility:[facility] Start: 07-22-2024 End: 07-22-2024 ambulatory Sarika S Jolliff Facility:[facility] Start: 07-07-2024 End: 07-07-2024 ambulatory Sarika S Jolliff Facility:[facility] Start: 06-25-2024 End: 06-25-2024 Refill Boby Egan MD Work Phone: [facility] Comment on above: Refill Request Start: 06-16-2024 End: 06-20-2024 ambulatory [email or web address] Facility:[facility] Start: 05-19-2024 End: 05-20-2024 ambulatory Fred A [facility] [[email or web address] Facility:[facility] Start: 03-04-2024 ambulatory Karin DELEON Faci lity:[facility] Start: 02-19-2024 Non-patient / Non-visit Dr. Williams Montaño Work Phone: [facility] Start: 01-13-2024 Non-patient / Non-visit Dr. Williams Montaño Work Phone: [facility] Start: 01-06-2024 Non-patient / Non-visit Dr. Williams Montaño Work Phone: [facility] Start: 12-30-2023 Non-patient / Non-visit Dr. Williams Montaño Work Phone: [facility] Start: 12-25-2023 Non-patient / Non-visit Dr. Williams Montaño Work Phone: [facility] Start: 12-24-2023 End: 02-21-2024 Evaluation and management of inpatient Dr. Sarika Montaño [facility] Start: 12-24-2023 Non-patient / Non-visit Dr. Williams Montaño Work Phone: [facility] Work Phone: Start: 12-24-2023 Non-patient / Non-visit Dr. Williams Montaño Work Phone: [facility] Start: 12-23-2023 Non-patient / Non-visit Dr. Williams Montaño Work Phone: [facility] Work Phone: Start: 12-22-2023 Non-patient / Non-visit Dr. Williams Montaño Work Phone: [facility] Work Phone: Start: 12-22-2023 Non-patient / Non-visit Dr. Williams Montaño Work Phone: [facility] Start: 12-21-2023 Non-patient / Non-visit Dr. Williams Montaño Work Phone: [facility] Work Phone: Start: 12-20-2023 Non-patient / Non-visit Dr. Williams Montaño Work Phone: [facility] Work Phone: Start: 12-20-2023 Non-patient / Non-visit Dr. Williams Montaño Work Phone: [facility] Start: 12-19-2023 Non-patient / Non-visit Dr. Williams Montaño Work Phone: [facility] Work Phone: Start: 12-19-2023 Non-patient / Non-visit Dr. Williams Montaño Work Phone: [facility] Start: 12-18-2023 Non-patient / Non-visit Dr. Williams Montaño Work Phone: [facility] Start: 12-17-2023 Non-patient / Non-visit Dr. Williams Montaño Work Phone: [facility] Work Phone: Start: 12-16-2023 Non-patient / Non-visit Dr. Williams Montaño Work Phone: [facility] Start: 12-16-2023 Non-patient / Non-visit Dr. Williams Montaño Work Phone: [facility] Start: 12-15-2023 Non-patient / Non-visit Dr. Williams Montaño Work Phone: [facility] Start: 12-14-2023 Non-patient / Non-visit Dr. Williams Montaño Work Phone: [facility] Start: 12-14-2023 Non-patient / Non-visit Dr. Williams Montaño Work Phone: [facility] Start: 12-13-2023 Non-patient / Non-visit Dr. Williams Montaño Work Phone: [facility] Work Phone: Start: 12-13-2023 Non-patient / Non-visit Dr. Williams Montaño Work Phone: [facility] Start: 12-13-2023 End: 12-24-2023 [facility]: Start: 12-04-2023 End: 12-04-2023 Evaluation and management of inpatient [facility] Work Phone: Start: 12-04-2023 End: 12-04-2023 observation encounter [facility] Work Phone: Start: 11-04-2023 End: 11-04-2023 ambulatory SARIKA MONTAÑO Facility:[facility] Start: 10-09-2023 Refill Boby augustine MD Work Phone: [facility] Comment on above: Refill Request Start: 09-26-2023 Refill Patience bull HOOP RIVETING MACHINE OPERATOR.SURGERY MANAGER Work Phone: [facility] Comment on above: Refill Request Start: 07-05-2023 Refill Claude wells MD Work Phone: [facility] Comment on above: Refill Request Start: 06-03-2023 End: 06-03-2023 Office outpatient visit 15 minutes Patience Otoole APRN.SURGERY MANAGER Work Phone: [facility] Comment on above: Parkinson's disease (HCC) (Primary Dx) Start: 02-27-2023 End: 02-27-2023 Patient encounter procedure Molly Mathew APRN.SURGERY MANAGER Work Phone: [facility] Comment on above: Parkinson's disease (HCC) (Primary Dx); Motor fluctuations 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 in Parkinson's disease (HCC); Dyskinesia Start: 02-06-2023 End: 02-06-[address] [facility] Work Phone: Start: 02-06-2023 End: 02-06-2023 Patient encounter procedure [facility] Start: 02-01-2023 Refill Claude wells MD Work Phone: [facility] Comment on above: Refill Request Start: 01-30-2023 Registered Rec[facility]ring [facility] Start: 01-22-2023 Refill Claude wells MD Work Phone: [facility] Comment on above: Refill Request Start: 11-07-2022 Refill Willie rebolledo MD Work Phone: [facility] Comment on above: Refill Request Start: 11-02-2022 End: 11-02-2022 ambulatory Claude Kyle MD Work Phone: [facility] Comment on above: PD (Parkinson's dise ase) (HCC) (Primary Dx); Levodopa-induced dyskinesia; Sialorrhea; Bilateral leg edema Start: 11-02-2022 End: 11-02-2022 Telemedicine consultation with patient Claude Kyle MD Work Phone: [facility] Start: 08-29-2022 End: 08-29-2022 Patient encounter procedure Claude Kyle MD Work Phone: [facility] Comment on above: PD (Parkinson's dise ase) (HCC) (Primary Dx); Levodopa-induced dyskinesia; Sialorrhea; Insomnia due to medical condition; Dystonia Start: 08-21-2022 End: 08-21-[address] [facility] Work Phone: Start: 08-21-2022 End: 08-21-2022 Patient encounter procedure [facility] Start: 04-13-2022 Refill Claude wells MD Work Phone: [facility] Comment on above: Refill Request Start: 02-23-2022 End: 02-23-2022 ambulatory Claude Kyle MD Work Phone: [facility] Comment on above: PD (Parkinson's dise ase) (HCC) (Primary Dx); Levodopa-induced dyskinesia; Sialorrhea Start: 02-23-2022 End: 02-23-2022 Telemedicine consultation with patient Claude Kyle MD Work Phone: [facility] Start: 02-13-2022 Chart abstracting Iraida foreman Research Coordinator Work Phone: [facility] Start: 02-09-2022 End: 02-09-2022 Patient encounter procedure Rosanna Shearer Research Coordinator Work Phone: [facility] Comment on above: Examination of parti cipant or control in clinical research (Primary Dx) Start: 02-06-2022 End: 04-19-2022 Patient encounter procedure [facility], [facility] Start: 01-24-2022 End: 01-24-2022 Patient encounter procedure Claude Kyle MD Work Phone: [facility] Comment on above: PD (Parkinson's dise ase) [facility] (Primary Dx); Levodopa-induced dyskinesia; Dystonia Procedures Date Procedure Procedure Detail Performing Clinician Start: 12-01-2024 Radiologic exam colo n single contrast study Misael Pheonix MD Work Phone: Start: 12-01-2024 Assay of magnesium Emerson Pugh MD Work Phone: Start: 11-30-2024 End: 11-30-2024 Anrct xm surg req anes general spi/edrl dx Meghna ZHANG Work Phone: Start: 11-30-2024 End: 11-30-2024 Sigmoidoscopy flx dx w/collj spec br/wa if pfrmd Meghna ZHANG Work Phone: Start: 11-30-2024 CARDIAC RHYTHM Other Ot her OT Start: 11-30-2024 Antibody screen Meghna ZHANG Work Phone: Start: 11-30-2024 ABORH TYPE RECONFIRMATION Yadi Watson DO Work Phone: Start: 11-30-2024 Antibody screen SARIKA CAMPOVERDE Comment on above: Performed By: #### C HM7, MGO, IPB #### [facility] [address] [place] [address] Start: 11-30-2024 Bilirubin direct Shukri Pugh MD Work Phone: Start: 11-30-2024 Blood typing serolog ic abo Shukri Pugh MD Work Phone: Start: 11-30-2024 CBC AND ELECTRONIC DIFF Shukri Pugh MD Work Phone: Start: 11-30-2024 Complete blood count with white cell differential, automated Shukri Pugh MD Work Phone: Start: 11-29-2024 Computed tomography of abdomen and pelvis with intravenous contrast Dr. Sarika Montaño MD Work Phone: Start: 02-17-[address] Sarika duke Work Phone: Start: 01-01-[address] Sarika butler Work Phone: Start: 12-19-[address] Sarika butler Work Phone: Start: 12-18-2023 Plain X-ray abdomen Dr. Sarika Montaño Work Phone: Start: 12-15-[address] Rex Montaño Work Phone: Start: 12-15-2023 Computed tomography of abdomen and pelvis with intravenous contrast Dr. Sarika Montaño Work Phone: Start: 12-15-2023 Plain X-ray abdomen Dr. Sarika Montaño Work Phone: Start: 12-14-2023 Bacteria identified in Blood by Culture Dr. Sarika Montaño Work Phone: Start: 12-14-[address] Sarika duke Work Phone: Start: 12-14-2023 Plain X-ray abdomen Dr. Sarika Montaño Work Phone: Start: 12-13-2023 Plain X-ray abdomen Dr. Sarika Montaño Work Phone: Start: 12-13-2023 End: 12-13-2023 Diagnostic radiography of abdomen Dr. Sarika Montaño Work Phone: Start: 12-13-2023 Fluoroscopic guidance Malcom Montaño Work Phone: Start: 12-13-[address] Sarika butler Work Phone: Start: 12-13-2023 Computed tomography of abdomen and pelvis with intravenous contrast Start: 12-03-2023 CT of head without contrast Start: 12-03-2023 SARS-CoV-2, Influenz a & RSV (PCR) Start: 12-03-2023 Urine culture Start: 02-21-2022 Adult depression screening assessment Claude Kyle MD Work Phone: Start: 01-22-2022 Adult depression screening assessment Claude Kyle MD Work Phone: Start: 10-02-2011 Colonoscopy Claude de la rosa MD Work Phone: H/O: colostomy History of colostomy Dr. Rex Montaño MD Work Phone: H/O: surgery History of intes tinal surgery Dr. Sarika Montaño MD Work Phone: History of tonsillectomy History of tonsillectomy and adenoidectomy Dr. Sarika Montaño MD Work Phone: Plan of Treatment Date Care Activity Detail Author Start: 12-30-2024 Covid-19 Vaccine () Covid-19 Vaccine () [facility] Start: 11-30-2024 [facility] Start: 10-21-2024 Advance Directive Discussion Advance Directive Discussion [facility] Start: 08-21-2024 End: 08-21-2024 ambulatory 08/21/2024 10:40 AM EDT [facility] [address] [place] [address] Claude Kyle MD [address], [place] [id number] Medication [facility] Comment on above: Medication Start: 06-21-2024 Covid-19 Vaccine () Covid-19 Vaccine () [facility] Start: 06-21-2024 Influenza vaccination Influenza Vacc ine (#1) [facility] Start: 02-21-2024 Development of care plan [facility] Start: 02-21-2024 Patient discharge [facility] Start: 02-20-2024 Contact precautions [facility] Start: 02-13-2024 Referral to service [facility] Start: 01-29-2024 [facility] Start: 01-28-2024 Developing a treatme nt plan [facility] Start: 01-23-2024 [facility] Start: 01-21-2024 Development of care plan [facility] Start: 01-09-2024 Removal of urinary catheter [facility] Start: 01-01-2024 [facility] Start: 12-26-2023 [facility] Start: 12-26-2023 Following clinical pathway protocol [facility] Start: 12-25-2023 Development of care plan [facility] Start: 12-25-2023 Developing a treatme nt plan [facility] Start: 12-24-2023 Consultation for treatment [facility] Start: 12-24-2023 Wound care [facility] Start: 12-24-2023 Speech therapy assessment [facility] Start: 12-24-2023 Admission procedure [facility] Start: 12-24-2023 Following clinical pathway protocol [facility] Start: 12-24-2023 Measuring intake and output [facility] Start: 12-24-2023 Patient referral to dietitian [facility] Start: 12-24-2023 Referral to occupati onal therapist [facility] Start: 12-24-2023 Referral to service [facility] Start: 12-24-2023 Vital signs measurements [facility] Start: 12-24-2023 [facility] Start: 12-24-2023 Patient discharge [facility] Start: 12-21-2023 [facility] Start: 12-20-2023 Consultation [facility] Start: 12-18-2023 Speech therapy assessment [facility] Start: 12-16-2023 Referral to service [facility] Start: 12-16-2023 Referral to occupati onal therapist [facility] Start: 12-16-2023 Consultation for treatment [facility] Start: 12-16-2023 [facility] Start: 12-14-2023 Provision of activit y privileges [facility] Start: 12-14-2023 Care planning and pr oblem solving actions [facility] Start: 12-13-2023 Application of intermittent pneumatic compression device [facility] Start: 12-13-2023 Following clinical pathway protocol [facility] Start: 12-13-2023 Aspiration precautions [facility] Start: 12-13-2023 Elevation of head of bed [facility] Start: 12-13-2023 Admission procedure [facility] Start: 12-13-2023 Consultation [facility] Start: 12-13-2023 Referral to gastroenterology service [facility] Start: 12-13-2023 Colonoscopy Colonoscopy (N ot Applicable) [facility] Start: 12-13-2023 End: 12-13-2023 Hospital admission, emergency, from emergency room, medical nature [facility] Start: 12-04-2023 Patient discharge [facility] Start: 12-04-2023 Thyroid stimulating hormone measurement [facility] Start: 12-04-2023 [facility] Start: 12-04-2023 Application of intermittent pneumatic compression device [facility] Start: 12-04-2023 Assessment of risk o f venous thromboembolism [facility] Start: 12-04-2023 Incentive spirometry [facility] Start: 12-04-2023 Insertion of cathete r into peripheral vein [facility] Start: 12-04-2023 Measuring intake and output [facility] Start: 12-04-[address] [facility] Start: 12-04-2023 Providing care accor ding to standard [facility] Start: 12-04-2023 Provision of activit y privileges [facility] Start: 12-04-2023 Referral to occupati onal therapist [facility] Start: 12-04-2023 Referral to service [facility] Start: 12-04-2023 [facility] Start: 12-04-2023 Following clinical pathway protocol [facility] Start: 12-04-2023 Verification routine [facility] Start: 12-04-2023 Admission procedure [facility] Start: 12-03-2023 [facility] Start: 12-03-2023 Bacteria identified in Urine by Culture [facility] Start: 10-21-2023 Advance Directive Discussion Advance Directive Discussion [facility] Start: 06-21-2023 Covid-19 Vaccine ( season) Covid-19 Vaccine ( season) [facility] Start: 06-21-2023 Influenza vaccination [facility] Start: 02-21-2023 Adult depression screening assessment DEPRESSION SCREENING [facility] Start: 01-22-2023 Adult depression screening assessment DEPRESSION SCREENING [facility] Start: 12-08-2022 COVID-19 VACCINE (6 - Moderna series) COVID-19 VACCINE (6 - Moderna series) [facility] Start: 10-21-2022 ADVANCE DIRECTIVE DISCUSSION ADVANCE DIRECTIVE DISCUSSION [facility] Start: 10-21-2022 DEPRESSION ASSESSMENT DEPRESSION ASS ESSMENT [facility] Start: 06-21-2022 Influenza vaccination INFLUENZA (#1) [facility] Start: 12-31-2021 COVID-19 VACCINE (4 - Booster for Moderna series) COVID-19 VACCINE (4 - Booster for Moderna series) [facility] Start: 10-21-2021 ADVANCE DIRECTIVE DISCUSSION ADVANCE DIRECTIVE DISCUSSION [facility] Start: 10-21-2021 DEPRESSION ASSESSMENT DEPRESSION ASS ESSMENT [facility] Start: 2021 RSV Vaccine (1 - 1-d ose 75+ series) RSV Vaccine (1 - 1-dose 75+ series) [facility] Start: 10-02-2021 Colonoscopy COLONOSCOPY [facility] Start: 10-02-2021 COLORECTAL CANCER SCREENING COLORECTAL CANCER SCREENING [facility] Start: 09-15-2013 Shingrix Vaccine (2 of 3) Brown grix Vaccine (2 of 3) [facility] Start: 09-15-2013 Zoster vaccine hzv l fifi for subcutaneous use ZOSTER (SHINGLES) VACCINE (2 of 3) [facility] Start: 10-02-2012 Screening for malign ant neoplasm of colon COLORECTAL CANCER SCREENING DISCUSSION [facility] Start: 2011 Pneumococcal Vaccine : 65+ (1 - PCV) Pneumococcal Vaccine: 65+ (1 - PCV) [facility] Start: 2011 PNEUMOCOCCAL: 65+ (1 - PCV) PNEUMOCOCCAL: 65+ (1 - PCV) [facility] Start: 2011 PNEUMOVAX AGE 65 AND OVER WITH 5YR LOOKBACK (#1) PNEUMOVAX AGE 65 AND OVER WITH 5YR LOOKBACK (#1) [facility] Start: 2006 RSV Vaccine (1 - 1-d ose 60+ series) RSV Vaccine (1 - 1-dose 60+ series) [facility] Start: 1996 SHINGRIX VACCINE (1 of 2) BROWN GRIX VACCINE (1 of 2) [facility] Start: 1991 COLOGUARD (FIT-DNA) COLOGUARD (FIT-D NA) [facility] Start: [address] COLONOGRAPHY [facility] Start: 1991 DIABETES SCREEN DIABETES SCREEN [facility] Start: 1991 Diabetes Screening Diabetes Screenin g [facility] Start: 1991 FECAL OCCULT BLOOD FECAL OCCULT BLOO D [facility] Start: 1991 SIGMOIDOSCOPY SIGMOIDOSCOPY [facility] Start: 1981 LIPID SCREEN LIPID SCREEN [facility] Start: 1965 Third diphtheria, te tanus and acellular pertussis (DTaP) vaccination TDAP (ADULT) [facility] Start: 1965 Urine microalbumin profile [facility] Start: 1964 Anxiety Screening Anxiety Screening [facility] Start: 1964 Depression Screening Depression Scre ing [facility] Start: 1964 HEPATITIS C SCREENING HEPATITIS C [facility] Start: 1964 Hepatitis C screening Hepatitis C [facility] Start: 1946 Hepatitis C screening HEPATITI S C VIRUS SCREENING [facility] Start: 1946 Tetanus vaccination TETANUS [facility] Alanine aminotransfe rase [Enzymatic activity/volume] in Serum or Plasma [facility] Albumin [Mass/volume ] in Serum or Plasma [facility] Alkaline phosphatase [Enzymatic activity/volume] in Serum or Plasma [facility] Anion gap measurement [facility] Aspartate aminotransferase [Enzymatic activity/volume] in Serum or Plasma [facility] Bilirubin, total measurement [facility] BUN/Creatinine ratio [facility] Calcium [Mass/volume ] in Serum or Plasma [facility] Carbon dioxide, tota l [Moles/volume] in Serum or Plasma [facility] Chloride [Moles/volu me] in Serum or Plasma [facility] Creatinine [Moles/vo lume] in Serum or Plasma [facility] Erythrocyte mean corpuscular volume determination [facility] Glucose [Mass/volume ] in Serum or Plasma [facility] Hematocrit [Volume Fraction] of Blood [facility] Hemoglobin [Mass/vol ume] in Blood [facility] Leukocytes [#/volume ] in Blood [facility] Mean corpuscular hemoglobin concentration determination [facility] Mean corpuscular hemoglobin determination [facility] Measurement of renal function [facility] Neutrophil count [facility] Neutrophil percent differential count [facility] Patient referral [facility] Work Phone: Platelets [#/volume] in Blood [facility] Potassium [Moles/vol ume] in Serum or Plasma [facility] Red blood cell count [facility] Red cell distributio n width determination [facility] Sodium [Moles/volume ] in Serum or Plasma [facility] Total protein measurement [facility] Urea nitrogen [Mass/volume] in Serum or Plasma [facility] Immunizations Immunization Date Immunization Notes Care Provider [facility] 07-20-2023 influenza, injectabl e, quadrivalent, preservative free [facility] 07-20-2023 Pfizer Covid-19 (Comirnaty) [facility] 07-20-2023 influenza virus vacc ine, unspecified formulation Boby Egan MD Work Phone: [facility] 08-07-2022 Covid Moderna Bivale nt Booster [facility] 08-07-2022 influenza, injectabl e, quadrivalent, preservative free [facility] 08-07-2022 influenza virus vacc ine, unspecified formulation Claude Kyle MD Work Phone: [facility] 05-02-2022 Covid (Moderna) [facility] 09-02-2021 Covid (Moderna) [facility] 06-30-2021 Influenza High-Dose Quadrivalent [facility] 01-16-2021 Covid (Moderna) [facility] 12-19-2020 Covid (Moderna) [facility] 06-28-2020 influenza, injectabl e, quadrivalent, preservative free [facility] 06-28-2020 pneumococcal polysaccharide vaccine, [address] [facility] 06-21-2020 influenza, injectabl e, quadrivalent, preservative free [facility] 08-14-2019 Seasonal trivalent influenza vaccine, adjuvanted, preservative free [facility] 08-04-2018 Seasonal trivalent influenza vaccine, adjuvanted, preservative free [facility] 08-13-2017 Seasonal trivalent influenza vaccine, adjuvanted, preservative free [facility] 07-10-2016 Influenza, high dose seasonal Dr. Sarika Montaño MD Work Phone: [facility] 07-10-2016 influenza, high dose seasonal, preservative-free [facility] 07-28-2015 Influenza, high dose seasonal Dr. Sarika Montaño MD Work Phone: [facility] 07-28-2015 influenza, high dose seasonal, preservative-free [facility] 11-16-2014 pneumococcal conjuga te vaccine, [address] 07-21-2013 zoster vaccine, live [facility] 07-21-2013 zoster vaccine, unspecified formulation Meghna ZHANG Work Phone: [facility] 08-30-2009 novel influenza-H1N1 -09, preservative-free, injectable [facility] Payers Date Payer Category Payer Managed Care (unspecified) MEDICARE SUPPLEMENT [id number] 2024 Self-pay [id number] 2022 Private Health Insurance [id number] 2022 Private Health Insurance [id number] 2021 Unknown [employer] PPO [id number] 2021-Present [phone] [place] [address] PPO [id number] 2021 Unknown [employer] PPO [id number] 2021-Present [phone] [place] [id number] PPO [id number] 2011 Medicare [id number] 2011 Medicare [id number] 1945 Unknown [id number] 1945 Unknown [id number] Private Health Insurance [id number] Unknown [id number] Unknown [id number] Unknown [id number] Unknown [id number] Unknown [id number] Unknown [id number] Unknown [id number] Unknown [id number] Unknown [id number] Unknown [id number] Unknown [id number] Social History Date Type Detail Facility Start: 05-22-2011 End: 08-29-2022 Tobacco smoking status NHIS Never smoked tobacco [facility] Start: 05-22-2011 End: 08-29-2022 Tobacco use and exposure Smokeless tobacco non-user [facility] Start: 11-12-2019 End: 02-27-2023 Alcohol intake Not Asked [facility] Start: 1945 Sex Assigned At Male [facility] Start: 01-14-2022 End: 08-29-2022 Exposure to SARS-CoV-2 (event) Not sure [facility] Start: 02-27-2023 End: 08-20-2024 History of Social function [facility] Start: 02-27-2023 End: 08-20-2024 Tobacco use panel [facility] Adult Depression Screening Assessment 0 [facility] Start: 04-17-2021 Gender identity Identifies as male gender (finding) [facility] Start: 04-17-2021 Sexual orientation Heterosexual (fin ding) [facility] Start: 12-03-2023 End: 12-24-2023 Tobacco smoking status NHIS Unknown if ever smoked [facility] Start: 1945 Sex assigned at Not on file [facility] Start: 11-29-2024 End: 01-29-2025 Sex Male (finding) [facility] Medical Equipment Procedure Code Equipment Code Equipment Origin al Text Equipment Identifier Dates Colectomy, sigmoid Surgical stap le loading unit, cutting [id number] FDA Start: 12-15-2023 Colectomy, sigmoid Open-surgery manual linear cutting stapler, single-use [id number] FDA Start: 12-15-2023 Colectomy, sigmoid Surgical stap le loading unit, non-cutting ()[id number] FDA Start: 12-15-2023 Goals Date Patient Goal Desired Activity /State Functional Status Date Assessment Result Facility 11-30-2024 Are you deaf, or do you have serious difficulty hearing No 11/30/2024 4:00 AM Ting Cha, SHARAN No [facility] 11-30-2024 Are you blind, or do you have serious difficulty seeing, even when wearing glasses No 11/30/2024 4:00 AM Ting Cha, SHARAN No [facility] 11-30-2024 Do you have serious difficulty walking or climbing stairs No 11/30/2024 4:00 AM Ting Cha, SHARAN No [facility] 11-30-2024 Do you have difficul ty dressing or bathing No 11/30/2024 4:00 AM Ting Cha, SHARAN [facility] 11-30-2024 Because of a physica l, mental, or emotional condition, do you have difficulty doing errands alone such as visiting a physician's office or shopping No 11/30/2024 4:00 AM Ting Cha, SHARAN No [facility] 02-21-2024 Functional status Activity Abili ty With Assist of [address] [facility] Work Phone: 02-20-2024 Functional status Ambulates [facility] Work Phone: 12-24-2023 Functional status Ambulates [facility] Work Phone: 12-04-2023 Functional status Chair [facility] Work Phone: Mental Status Date Assessment Result Facility 11-30-2024 Because of a physica l, mental, or emotional condition, do you have serious difficulty concentrating, remembering, or making decisions No 11/30/2024 4:00 AM EST Ting Cardona, RN No [facility] 02-21-2024 Cognitive function Voice/Name [facility] Work Phone: 02-09-2024 Cognitive function Appropriate;C ooperativ e [facility] Work Phone: 12-24-2023 Cognitive function Voice/Name [facility] Work Phone: 12-04-2023 Cognitive function Voice/Name [facility] Work Phone: Clinical Notes 01-24-2022 to 01-22-2025 Telephone Encounter - Sammie Pryor - 01/22/2025 2:16 PM EDTTelephone Encounter - Sammie Pryor - 01/22/2025 2:16 PM EDTNursing Notes - Chanel Dougherty RN - 12/01/2024 6:50 PM EST Note Date & Type Note Facility 01-22-2025 Telephone encounter Note Pt has been without medication for 3 days due to confusion with the pharmacy - please approve HEMA. Thank you! [facility] 01-22-2025 Miscellaneous Notes Pt has been without medication for 3 days due to confusion with the pharmacy - please approve HEMA. Thank you! Pt requesting refill as follows: Last FUV Aug 2024 with [facility]. Tammy Mccain - he is out Requested Prescriptions Pending Prescriptions Disp Refills carbidopa-levodopa (SINEMET 25-100) 25-100 mg per tablet 135 tablet 11 Sig: Take 1.5 tablet every 5 hours, 3 times daily. Upon approval, script will be sent electronically to the patient's pharmacy. Sammie Pruitt, [employer] documented in this encounter [facility] 01-22-2025 Telephone encounter Note Pt requesting refill as follows: Last FUV Aug 2024 with [facility]. Tammy Mccain - he is out Requested Prescriptions Pending Prescriptions Disp Refills carbidopa-levodopa (SINEMET 25-100) 25-100 mg per tablet 135 tablet 11 Sig: Take 1.5 tablet every 5 hours, 3 times daily. Upon approval, script will be sent electronically to the patient's pharmacy. Sammie Pruitt, [employer] [facility] 12-01-2024 Nurse Note AVS given and denied questions. Chanel Dougherty RN [facility] 12-01-2024 Miscellaneous Notes AVS given and denied questions. Chanel Dougherty RN Problem: Adult Inpatient Plan of Care Goal: Plan of Care Review Outcome: Progressing Problem: Ileostomy Goal: Effective Bowel Elimination Outcome: Progressing Intervention: Monitor and Manage Bowel Motility and Elimination Flowsheets (Taken 12/01/2024 9410) Bowel Elimination Promotion: adequate fluid intake promoted ambulation promoted Note: Pt's ostomy with increased output Surgery Post-Op Check Note Maynor Vides is a 79 y.o. yr old male, who is now POD#0 s/p Procedure(s) (LRB): EXAM UNDER ANESTHESIA ANORECTAL (N/A) SIGMOIDOSCOPY DIAGNOSTIC (N/A). There were no complications to the procedure, and the patient tolerated it well. Arrived to the floor in stable condition. Subjective: Patient resting comfortably in bed. Patient awake and participatory in clinical exam. Patient denies any nausea. Pain is controlled on current regimen with no complaints. Patient is breathing comfortably on room air and denied any SOB or chest pain. Objective: BP 142/65 (BP Location: Left arm, BP Position: Lying) Pulse 62 Temp 97.3 F (36.3 C) Resp 16 Ht 1.778 m (5' 10) Wt 66.7 kg (147 lb) SpO2 98% BMI 21.09 kg/m Smoking Status Never Exam: GEN: NAD, laying comfortably in bed CV: RRR, HDS Pulm: No respiratory distress, breathing unlabored on room air Abd: Soft, non tender, non-distended. Ostomy in LLQ with brown output in appliance Ext: No LE swelling/edema, distal pulses 2+ Neuro: No focal deficits, RUE tremor Assessment: 79 y.o. yr old male now POD 0 s/p Procedure(s) (LRB): EXAM UNDER ANESTHESIA ANORECTAL (N/A) SIGMOIDOSCOPY DIAGNOSTIC (N/A). Currently stable on the floor. Plan: - DIET CLEAR LIQUID - Pain control: multimodal - Ayala: none - Patient advised to call with any concerns - Will continue to monitor Shukri Pugh MD General Surgery Pager [phone] Images from the original note were not included. COLORECTAL SURGERY PLAN OF CARE NOTE Maynor Vides is a 79 y.o. 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 - now s/p EUA & Flex Sign (Best, 11/30/24) INTRAOPERATIVE FINDINGS Flexible Sigmoidoscopy performed demonstrating chronic appearing cavity at proximal end of rectal stump with exposed sutures (see pictures below). No purulence nor evidence of infected cavity. Stool and mucous irrigated out of rectal vault Plan: -- ok for CLD tonight -- tentatively will plan for GGC tomorrow -- will also need to investigate current bowel regimen at facility to optimize this Chu Bolden MD General Surgery Problem: Adult Inpatient Plan of Care Goal: Plan of Care Review 11/30/20241658 by Sangeeta Kraft RN Outcome: Progressing 11/30/20241658 by Sangeeta Kraft RN Outcome: Progressing Goal: Patient-Specific Goal (Individualized) 11/30/2024 165 by Sangeeta Kraft RN Outcome: Progressing 11/30/20241658 by Sangeeta Kraft RN Outcome: Progressing Goal: Absence of Hospital-Acquired Illness or Injury 11/30/20241658 by Sangeeta Kraft RN Outcome: Progressing 11/30/20241658 by Sangeeta Kraft RN Outcome: Progressing Goal: Optimal Comfort and Wellbeing 11/30/20241658 by Sangeeta Kraft RN Outcome: Progressing 11/30/20241658 by Sangeeta Kraft RN Outcome: Progressing Goal: Readiness for Transition of Care 11/30/2024 165 by Sangeeta Kraft RN Outcome: Progressing 11/30/20241658 by Sangeeta Kraft RN Outcome: Progressing Problem: Ileostomy Goal: Optimal Coping 11/30/20241658 by Sangeeta Kraft RN Outcome: Progressing 11/30/20241658 by Sangeeta Kraft RN Outcome: Progressing Goal: Absence of Bleeding 11/30/20241658 by Sangeeta Kraft RN Outcome: Progressing 11/30/2024 165 by Sangeeta Kraft RN Outcome: Progressing Goal: Effective Bowel Elimination 11/30/2024 165 by Sangeeta Kraft RN Outcome: Progressing 11/30/2024 165 by Sangeeta Kraft RN Outcome: Progressing Goal: Fluid and Electrolyte Balance 11/30/20241658 by Sangeeta Kraft RN Outcome: Progressing 11/30/2024 165 by Sangeeta Kraft RN Outcome: Progressing Goal: Absence of Infection Signs and Symptoms 11/30/20241658 by Sangeeta Kraft RN Outcome: Progressing 11/30/2024 165 by Sangeeta Kraft RN Outcome: Progressing Goal: Anesthesia/Sedation Recovery 11/30/2024 165 by Sangeeta Kraft RN Outcome: Progressing 11/30/20241658 by Sangeeta Kraft RN Outcome: Progressing Goal: Optimal Pain Control and Function 11/30/20241658 by Sangeeta Kraft RN Outcome: Progressing 11/30/20241658 by Sangeeta Kraft RN Outcome: Progressing Goal: Nausea and Vomiting Relief 11/30/20241658 by Sangeeta Kraft RN Outcome: Progressing 11/30/20241658 by Sangeeta Kraft RN Outcome: Progressing Goal: Effective Urinary Elimination 11/30/2024 165 by Sangeeta Kraft RN Outcome: Progressing 11/30/20241658 by Sangeeta Kraft RN Outcome: Progressing Goal: Effective Oxygenation and Ventilation 11/30/20241658 by Sangeeta Kraft RN Outcome: Progressing 11/30/20241658 by Sangeeta Kraft RN Outcome: Progressing Goal: Optimal Stoma Healing 11/30/20241658 by Sangeeta Kraft RN Outcome: Progressing 11/30/20241658 by Sangeeta Kraft RN Outcome: Progressing Problem: Ileostomy Goal: Optimal Coping 11/30/20241658 by Sangeeta Kraft RN Outcome: Progressing 11/30/20241658 by Sangeeta Kraft RN Outcome: Progressing Images from the original note were not included. On admission to [facility], from outside facility a dual RN initial assessment of skin condition was performed by Ting Cardona RN and Tanisha Borrero RN. Skin Assessment: Skin not within defined limits. - Wound(s) identified: Yes - Photo taken and uploaded into notes in IHIS: Yes LDA Added:Yes Ting Cardona RN documented in this encounter [facility] 12-01-2024 Plan of care note Problem: Adult Inpatient Plan of Care Goal: Plan of Care Review Outcome: Progressing Problem: Ileostomy Goal: Effective Bowel Elimination Outcome: Progressing Intervention: Monitor and Manage Bowel Motility and Elimination Flowsheets (Taken 12/01/2024 7233) Bowel Elimination Promotion: adequate fluid intake promoted ambulation promoted Note: Pt's ostomy with increased output [facility] 12-01-2024 History of Presen t illness Narrative 12/01/24 1100 Patient Assessment Completed Patient Assessment Completed Initial Initial Discharge Planning Expected Discharge Disposition Home Transportation Available for Discharge Private Vehicle Anticipated DME none Anticipated Services at Discharge Outpatient follow up Admission Assessment Reason for Admission abscess Is the patient able to participate in the assessment? Yes Information source Patient;Review of Medical Record Information Source Name/Contact Maynor Vides ([phone]) Demographics Verified and Updated Yes Has the patient been admitted to any hospital in the last 30 days? No Advanced Care Planning Has the patient completed Advance Directives? Completed, Available in Medical Record Reviewed for accuracy with patient? No Legal Next of Kin Does the patient have a Guardian? No Spouse No Adult Child(luisito), List All Adult Children Yes Name and Contact information Jeane Martin (daughter: [phone]) Would you like to add additional adult children? Yes Name and Contact information three other children that live out of state Parent(s) - List All Living Parents No Adult Sibling(s), List All Adult Siblings Yes Name and Contact information Sister in [place] Would you like to add additional adult siblings? No Nearest Adult Related by Blood or Adoption No Patient Reports No Relatives by Blood or Adoption. No Referral to Social Work to Identify Legal Next of Kin? No Reviewed and Updated in Demographics? Yes Outpatient Providers Does patient have a primary care physician? Yes When was the patient's last PCP visit? < 30 days Does the patient follow any specialists? Unknown At This Time Reviewed and updated Care Team? Yes Environment/Caregivers Is the patient from a facility or long-term? No Patient lives with [facility] How many steps does the patient have to navigate to enter or inside the home? 2 Does the patient have a first floor set-up with bed and bathroom? Yes Patient Caregiving Responsibilities Self Patient-identified caregiver/support network Family Who does the patient identify as a teachable caregiver(s)? Child(luisito) - Independent Services Does the patient use a home health or hospice agency? No Current with dialysis? No Does the patient use any community programs or services? No Does patient use DME? none Does the patient use oxygen? No Does patient use medical supplies? none Anticipated Changes Related to Illness/Injury? No Initial ADLs Prior to Arrival What is the patient's baseline physical functioning prior to this acute illness? independent What is the patient's baseline cognitive functioning prior to this acute illness? independent Is the patient's baseline functioning changed by this acute illness? No Concerns with patient being able to care for themselves at home? No Are there therapy or specialists consults? Yes Select consult type OT;PT Does the patient's home require any home modifications for discharge? No Medication Management Does the patient have prescription insurance coverage? Yes Is the patient on Anticoagulation? 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 No Employed? Retired Coping/Stress Concerns about patient s coping and stress? No Concerns about patient s caregiver s coping and stress? No Values and Beliefs Cultural or samaritan practices that may impact discharge planning and/or medical care? No Transportation Within the past 12 months, has lack of transportation kept you from medical appointments, getting your medicines, non-medical meetings or appointments, work, or from getting things that you need? N Financial Resource Strain How hard is it for you to pay for the very basics like food, housing, medical care, and heating? Not hard Housing/Utilities Do you have housing? Y Are you worried about losing your housing? N Within the past 12 months, have you or your family members you live with been unable to get utilities (heat, electricity) when it was really needed? N Food Insecurity Within the past 12 months, did you worry that your food would run out before you got money to buy more? N Within the past 12 months, did the food you bought just not last and you didn t have money to get more? N Interpersonal Safety Do you feel physically and emotionally safe where you currently live? Y Within the past 12 months, have you been hit, slapped, kicked or otherwise physically hurt by someone? N Within the past 12 months, have you been humiliated or emotionally abused in other ways by your partner or ex-partner? N Follow-Ups We make community resources available to all of our patients to assist with everyday needs. We may be able to connect you with those resources. Would you be interested? N Discharge Planning Assessment Patient hopes to return home when discharged from hospital. Care Management Plan Care Management will continue to follow Medical Teams re: patient's needs. Initial Discharge Planning Expected Discharge Disposition: Home Transportation Available for Discharge: Private Vehicle Anticipated DME: none Anticipated Services at Discharge: Outpatient follow up Patient Assessment Completed: Initial Legal Next of Kin Patient's daughter, Jeane Martin, lives 15 minutes from patient, has a flexible schedule and can assist patient with transportation and potential care needs. Patient has three other children that live out of state. Advanced Care Planning Patient has Advanced Directives. Medication Management [id number] [place] [address] - [address] [facility] [address] [facility] [id number] Living Environment and Support System Loida lives in two story condo. Has two bedrooms on the second floor. Patient has moved a bed to the first floor and has a bed and bathroom on the first floor. Patient's one daughter lives nearby and is attentive. Services Patient does not receive any Home Healthcare services. Initial ADLs Prior to Arrival Patient had abdominal surgery one year ago. Had Home Healthcare services for about two months at that time. Patient had used DME at that time, but does not now. Felt Hat Steamer Does the patient or mill representative express financial concerns? : (P) No Colorectal Surgery Daily Progress Note Attending: LEATHA Briscoe Length of Stay: 1 Surgery: EUA with irrigation of infected cavity with diagnostic flex sig Subjective/Interval events: Pt reports that he is feeling very well and feels better than he has in a long time. He feels like the irrigation helped significantly. He is taking in PO and has ostomy stool and gas output. He reports that he is tolerating PO without n/v. He is not experiencing any pain. He does have an appetite. UOP adequate at 1100. O:BP 122/61 (BP Location: Left arm, BP Position: Lying) Pulse 60 Temp 98.4 F (36.9 C) (Oral) Resp 16 Ht 1.778 m (5' 10) Wt 66.7 kg (147 lb) SpO2 96% BMI 21.09 kg/m Smoking Status Never 11/30 0700 - 12/01 0659 In: 2920.6 [P.O.:520; I.V.:2100.7] Out: 1251 [Urine:1100] PE: GEN: NAD, laying comfortably in bed CV: RRR, HDS Pulm: No respiratory distress, breathing unlabored on room air Abd: Soft, non tender, non-distended. Ostomy in LLQ with brown output and gas in appliance Ext: No LE swelling/edema, distal pulses 2+ Neuro: No focal deficits, RUE tremo Labs: WBC/Hgb/Hct/Plts: 8.90/12.1/36.4/236 (12/01 224) Bun/Creat/Cl/CO2/Glucose: 15/0.79/104/19/66 (12/01 224) Na/K+/Phos/Mg/Ca: 136/4.0/2.8/1.7/-- (12/01 224) A/P: Maynor Vides is a 79 y.o. 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 Today's Plan - low fiber diet - fluoro enema - stop abx - DC dilaudid - if eats breakfast and lunch, possible DC Primary Problem/Diagnosis: Activity as tolerated Acute pain Continue multimodal pain regimen. Dilaudid prn Complexity. Any conditions listed below are present on admission unless otherwise specified. .None Parkinson's Diet: DIET REGULAR Low Fiber DVT prophylaxis: Ambulate daily, SCD's. Ayala: none Lines: PIV Code status: Full Level of care: Med Surg Planned Discharge date: possibly this afternoon pending if pt is tolerating diet and fluoro enema Dispo- inpatient Patient seen with colorectal team, plan of care discussed, and they are in agreement. Jessica Loepz MD, MS Surgery, PGY-1 #[id number] Patient returned from EUA, A&Ox3. VSS, started clear diet. No c/o pain. Daughter at bedside Noted plan is for OR today for EUA. Will defer initial assessment until after surgery to better assess discharge planning needs. documented in this encounter [facility] 12-01-2024 Hospital Discharg e instructions Jesscia Lopez MD - 12/01/2024 11:36 AM EST You will have a telehealth follow-up appointment with Dr. Allen in 3-[address] Lopez will call you with the appointment date and time. In addition to the stool softener you already take and your prune juice, please also take Miralax daily. It has been prescribed for you, but you can also get it over the counter. COLORECTAL CONTACTS For Concerns During Weekend or Evening Hours: -If you have questions or concerns call and ask the bowling alley operator to page the surgical scrub tech provisioning specialist. Reminder: [email or web address] messaging goes unmonitored during evenings and weekends. Any concerns or questions during this time, please call using instructions above. Clinic Office Main Number: Colorectal Cancer: [phone] Colorectal Non-cancer: [phone] ENTEROSTOMAL THERAPY RN OSTOMY Clinic NOTIFY PHYSICIAN: SYMPTOMS WOUND INFECTION - Increase in pain in or around wound - Change in the amount of drainage, color or odor - Warmth in the tissues around the wound - Red streaks on the skin near the wound - Fever (temperature greater than 101 degrees F) - Incision separates or opens up UNRELIEVED PAIN - Increased or unrelieved pain NAUSEA/VOMITING - Nausea and vomiting that continues for more than 24 hours - Not able to keep medicine down - Not able to keep fluids down SYMPTOMS OF DEEP VEIN THROMBUS -Any Tender, Swollen, or Reddened Areas from Your Groin to Your Heels -Numbness or Tingling In Groin or Calf -The Skin on Your Leg Looks Pale or Blue or It Feels Cold To Touch -Numbness or Tingling In Groin or Calf -Any Shortness of Breath -Chest Pain -Fever or Chills SYMPTOMS OF GI BLEED Call your doctor or nurse if you have signs of slow blood loss such as: -Black tarry bowel movements -Cold hands and feet -Weakness -Dizzyness Call 911 if you suddenly have signs of blood loss such as: -Vomiting blood -Fast heart rate -Feeling faint or blacking out -Passing bright red blood from your rectum documented in this encounter [facility] 11-30-2024 Plan of care note Surgery Post-Op Check Note Maynor Vides is a 79 y.o. yr old male, who is now POD#0 s/p Procedure(s) (LRB): EXAM UNDER ANESTHESIA ANORECTAL (N/A) SIGMOIDOSCOPY DIAGNOSTIC (N/A). There were no complications to the procedure, and the patient tolerated it well. Arrived to the floor in stable condition. Subjective: Patient resting comfortably in bed. Patient awake and participatory in clinical exam. Patient denies any nausea. Pain is controlled on current regimen with no complaints. Patient is breathing comfortably on room air and denied any SOB or chest pain. Objective: BP 142/65 (BP Location: Left arm, BP Position: Lying) Pulse 62 Temp 97.3 F (36.3 C) Resp 16 Ht 1.778 m (5' 10) Wt 66.7 kg (147 lb) SpO2 98% BMI 21.09 kg/m Smoking Status Never Exam: GEN: NAD, laying comfortably in bed CV: RRR, HDS Pulm: No respiratory distress, breathing unlabored on room air Abd: Soft, non tender, non-distended. Ostomy in LLQ with brown output in appliance Ext: No LE swelling/edema, distal pulses 2+ Neuro: No focal deficits, RUE tremor Assessment: 79 y.o. yr old male now POD 0 s/p Procedure(s) (LRB): EXAM UNDER ANESTHESIA ANORECTAL (N/A) SIGMOIDOSCOPY DIAGNOSTIC (N/A). Currently stable on the floor. Plan: - DIET CLEAR LIQUID - Pain control: multimodal - Ayala: none - Patient advised to call with any concerns - Will continue to monitor Shukri Pugh MD General Surgery Pager [phone] [facility] Work Phone: 11-30-2024 Nurse Surgical operation note Pt to be extubated and transported to PACU on oxygen with anesthesia in surgery at bedside. Side rails up 2/2. Report given to PACU charge nurse prior to transport. Report called at approximately 1742 all questions answered LCS [facility] 11-30-2024 Nurse Note Pt to be extubated and transported to PACU on oxygen with anesthesia in surgery at bedside. Side rails up 2/2. Report given to PACU charge nurse prior to transport. Report called at approximately 1742 all questions answered LCS documented in this encounter [facility] 11-30-2024 Plan of care note Images from the original note were not included. COLORECTAL SURGERY PLAN OF CARE NOTE Maynor Vides is a 79 y.o. 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 - now s/p EUA & Flex Sign (Best, 11/30/24) INTRAOPERATIVE FINDINGS Flexible Sigmoidoscopy performed demonstrating chronic appearing cavity at proximal end of rectal stump with exposed sutures (see pictures below). No purulence nor evidence of infected cavity. Stool and mucous irrigated out of rectal vault Plan: -- ok for CLD tonight -- tentatively will plan for GGC tomorrow -- will also need to investigate current bowel regimen at facility to optimize this Chu Bolden MD General Surgery [facility] Work Phone: 11-30-2024 Plan of care note Problem: Adult Inpatient Plan of Care Goal: Plan of Care Review 11/30/20241658 by Sangeeta Kraft RN Outcome: Progressing 11/30/20241658 by Sangeeta Kraft RN Outcome: Progressing Goal: Patient-Specific Goal (Individualized) 11/30/20241658 by Sangeeta Kraft RN Outcome: Progressing 11/30/20241658 by Sangeeta Kraft RN Outcome: Progressing Goal: Absence of Hospital-Acquired Illness or Injury 11/30/20241658 by Sangeeta Kraft RN Outcome: Progressing 11/30/20241658 by Sangeeta Kraft RN Outcome: Progressing Goal: Optimal Comfort and Wellbeing 11/30/20241658 by Sangeeta Kraft RN Outcome: Progressing 11/30/20241658 by Sangeeta Kraft RN Outcome: Progressing Goal: Readiness for Transition of Care 11/30/20241658 by Sangeeta Kraft RN Outcome: Progressing 11/30/20241658 by Sangeeta Kraft RN Outcome: Progressing Problem: Ileostomy Goal: Optimal Coping 11/30/20241658 by Sangeeta Kraft RN Outcome: Progressing 11/30/20241658 by Sangeeta Kraft RN Outcome: Progressing Goal: Absence of Bleeding 11/30/20241658 by Sangeeta Kraft RN Outcome: Progressing 11/30/20241658 by Sangeeta Kraft RN Outcome: Progressing Goal: Effective Bowel Elimination 11/30/20241658 by Sangeeta Kraft RN Outcome: Progressing 11/30/20241658 by Sangeeta Kraft RN Outcome: Progressing Goal: Fluid and Electrolyte Balance 11/30/20241658 by Sangeeta Kraft RN Outcome: Progressing 11/30/20241658 by Sangeeta Kraft RN Outcome: Progressing Goal: Absence of Infection Signs and Symptoms 11/30/2024 1659 by Sangeeta Kraft RN Outcome: Progressing 11/30/2024 165 by Sangeeta Kraft RN Outcome: Progressing Goal: Anesthesia/Sedation Recovery 11/30/2024 165 by Sangeeta Kraft RN Outcome: Progressing 11/30/2024 165 by Sangeeta Kraft RN Outcome: Progressing Goal: Optimal Pain Control and Function 11/30/2024 165 by Sangeeta Kraft RN Outcome: Progressing 11/30/2024 165 by Sangeeta Kraft RN Outcome: Progressing Goal: Nausea and Vomiting Relief 11/30/2024 165 by Sangeeta Kraft RN Outcome: Progressing 11/30/2024 165 by Sangeeta Kraft RN Outcome: Progressing Goal: Effective Urinary Elimination 11/30/20241658 by Sangeeta Kraft RN Outcome: Progressing 11/30/20241658 by Sangeeta Kraft RN Outcome: Progressing Goal: Effective Oxygenation and Ventilation 11/30/2024 165 by Sangeeta Kraft RN Outcome: Progressing 11/30/2024 165 by Sangeeta Kraft RN Outcome: Progressing Goal: Optimal Stoma Healing 11/30/2024 165 by Sangeeta Kraft RN Outcome: Progressing 11/30/20241658 by Sangeeta Kraft RN Outcome: Progressing Problem: Ileostomy Goal: Optimal Coping 11/30/20241658 by Sangeeta Kraft RN Outcome: Progressing 11/30/20241658 by Sangeeta Kraft RN Outcome: Progressing [facility] 11-30-2024 Nurse Note Images from the original note were not included. On admission to [facility], from outside facility a dual RN initial assessment of skin condition was performed by Ting Cardona RN and Tanisha Borrero RN. Skin Assessment: Skin not within defined limits. - Wound(s) identified: Yes - Photo taken and uploaded into notes in IHIS: Yes LDA Added:Yes Ting Cardona RN [facility] 11-29-2024 Note [facility] Medical Records Department [address] [place] [address] History Physical Exam 11/29/24 1859 MR#: [id number] Acct: [id number] Name: MAYNOR VIDES III Rep #: [id number] : 1945 79 From: Surjit Kirkland MD PCP: Dr. Sarika Montaño MD Status:REG ER Location: ED HPI - General General Date of Service: 11/29/24 HPI Narrative MAYNOR VIDES, is a 79 M who presents to [facility] with his daughter due to complaints that he has not had ostomy output in the last 48 hours. 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 Mr. Vides suggests that his normal stooling frequency with his ostomy leads him to empty his appliance 1-3 times daily so to go 48 hours with output was highly abnormal. Once he recognized this he immediately resorted to a liquid diet and begin use of prune juice to try to stimulate a bowel movement. In addition to the absence of stool per his ostomy he states he was caught off guard suddenly experiencing a bowel movement per rectum today. He shares he has done well otherwise in this last 1 year and has not experienced any output per rectum in that time. Patient's emergency room workup included CBC which showed a mild leukocytosis at 11.[address] imaging of the abdomen pelvis with intravenous contrast. The latter study was read by radiology and highlighted a large volume of stool throughout the colon and rectal stump as well as an air-fluid collection of the pelvis that was felt to likely represent a pelvic abscess and derived from the Dhillon's pouch. Additionally, radiology noted presence of a parastomal hernia but were unable to provide emergency medicine with explanation for patient's reduced output apart from conjecture around an ileus and so surgery was consulted. [facility] Medical History Bilateral inguinal hernia Incisional hernia of anterior abdominal wall without obstruction or gangrene History of intestinal obstruction Wound dehiscence, surgical BPH (benign prostatic hyperplasia) Debility Hypertension CKD (chronic kidney disease), stage II Parkinson disease Home Medications ???Medication ???Instructions ???Recorded ???Last Taken ???Type amantadine HCl 100 mg capsule 100 mg PO DAILY hill 12/04/2303/13 08:15 History food supplemt, lactose-reduced 120 ml PO 4X/DAY nutrition #237 mL 12/24/23 12/24/23 13:05 Rx 0.08 gram-1.5 kcal/mL oral liquid (Ensure Plus High Protein) pantoprazole 40 mg tablet,delayed 40 mg PO DAILY stomach acid 2 03/1312/24/23 08:15 Rx release weeks #14 tabs Held on 04/24/24. Instructions: Ordered carbidopa 25 mg-levodopa 100 mg 2 tab PO 0800 #0 tabs 01/16/24 Unk nown Rx tablet carbidopa 25 mg-levodopa 100 mg 2 tab PO BID@1100,1600 #0 tabs Unknown Rx tablet carbidopa ER 50 mg-levodopa 200 mg 1 tab PO QHS #0 tabs 01/16/24 Un known Rx tablet,extended release carboxymethylcellulose sodium 0.5 1 drp ophthalmic (eye) Q6H PRN CO N 01/16/24 Unknown Rx % eye drops (Refresh Tears) DRY EYES #0 mL fluticasone propionate 50 1 spray NASAL BID #0 grams 4 Unknown Rx mcg/actuation nasal spray,suspension melatonin 10 mg sublingual tablet 5 mg (1/2 x 10 mg) PO QHS PRN Unknown Rx Insomnia #0 tabs sennosides 8.6 mg-docusate sodium 2 tab PO BID #0 tabs 01/16/24 Unk nown Rx 50 mg tablet (Stool Softener-Stimulant Laxative) sodium chloride 0.65 % nasal spray 1 spray NASAL BID #0 mL 01/16/24 Unknown Rx aerosol (Deep Sea Nasal) sodium chloride 0.65 % nasal spray 1 spray NASAL BID PRN PRN NASAL 01/16/24 Unknown Rx aerosol (Deep Sea Nasal) DRYNESS #0 mL fluconazole 100 mg tablet 100 mg PO DAILY 6 days #6 tabs 12/14 Unknown Rx hydrochlorothiazide 25 mg tablet 25 mg PO DAILY 04/24/24 Unknown Hi story Allergy/AdvReac Type Severity Reaction Status Date / Time No Known Allergies Allergy Verified 07/22/24 14:18 Family History Mother Heart disease Father Heart disease Surgical History History of intestinal surgery History of colostomy History of colectomy History of tonsillectomy and adenoidectomy Social History household members: none Smoking Status: Never smoker alcohol intake: never substance use type: does not use Vital Signs Vital Signs Vital Signs: 11/29/24 14:30 11/29/24 16:30 11/29/24 18:02 Temperature 97.6 F L Temperature Source Temporal Pulse Rate 80 89 81 Respiratory Rate 20 H Blood Pressure 146/80 H 171/89 H 131/85 (more content not included)... [facility] 09-18-2024 Telephone encounter Note Pt requesting refill as follows: Last FUV Aug 2024 with [facility]. Requested Prescriptions Pending Prescriptions Disp Refills amantadine HCl (SYMMETREL) 100 mg capsule 360 capsule 1 Sig: Take 2 tablets at 9am, then 1 tablet at 1pm and 5pm. Upon approval, script will be sent electronically to the patient's pharmacy. Sammie Pruitt, [employer] [facility] 09-18-2024 Miscellaneous Notes Pt requesting refill as follows: Last FUV Aug 2024 with [facility]. Requested Prescriptions Pending Prescriptions Disp Refills amantadine HCl (SYMMETREL) 100 mg capsule 360 capsule 1 Sig: Take 2 tablets at 9am, then 1 tablet at 1pm and 5pm. Upon approval, script will be sent electronically to the patient's pharmacy. Sammie Pruitt, [employer] documented in this encounter [facility] 08-21-2024 Note HNO ID: [id number] Author: CLAUDE KYLE MD Service: ? Author Type: Physician Type: Progress Notes Filed: 08/21/2024 17:39 Note Text: [facility] - FOLLOW UP EVALUATION - VIRTUAL VISIT Sarika Montaño MD [address] [facility] [address] [facility] [id number] Dear Sarika Montaño MD: I had the pleasure of seeing Mr. Vides for follow-up today. As you know he is a 78 year old right-handed male with a history of Parkinson disease since 2015. He is seen alone. We had a visit using: copygram I have communicated my name and active licensure. The patient's identity and physical location were verified at the time of this visit. Either the patient or their legal mill representative has been informed of the risks and benefits of -- and alternatives to -- treatment through a remote evaluation and consents to proceed with the evaluation remotely. Subjective During his previous visit the following plan was made: Previous plan-11/04/2023 Visit: Parkinson disease with dyskinesias: continue on current dose of levodopa and artane Freezing: counseled on taking big steps; continue PT. Watch for constipation and leg swelling Interval History Says that he is doing pretty well. Denies motor fluctuations; occasional dyskinesias (not bothersome). No specific complaints. Memory and concentration are good; denies hallucinations; good mood in general. Sleep is fair to good (wakes up once in the middle of the night after 3-4 hours of sleep). Urination and bowel movements are regular. No falls. Movement Disorders Medications Schedule - as of [...] Yes (slight) Walking and balance problems: Yes (mild) Number of falls in the Last Month: Gait freezing: Yes (mild) Autonomic/Pain Lightheadeness on standing: Yes (mild) Urinary problems: 0 (none) Constipation problems: Yes (slight) Pain and other sensations: 0 (none) Speech/Swallowing Speech problems: Yes (slight) Drooling: Yes (mild) Chewing and swallowing problems: 0 (none) Sleep/Fatigue Sleep problems: Yes (mild) Daytime sleepiness: Yes (mild) Fatigue: Yes (mild) Mood/Behavior Depression: PHQ-9 Score: 2 usually representing no significant (0-4) depression. Anxiety: JUANJO-7 Total Score: 0 usually representing no significant (0-4) anxiety. Finally, the following table shows the patient's overall global physical and mental health using the PROMIS scale: PROMIS-10 Flowsheet Row Distance Health from 08/21/2024 in [facility] from 11/04/2023 in [facility] Global Physical Health T Score 47.7 47.7 Global Mental Health T Score 53.3 48.3 0-10 Standard Pain Scale 4 5 *PROMIS-10 scoring scale: mean = 50, over 50 is above average, under 50 is below average Objective Neurological Exam Mental Status Awake, alert and oriented to person, place and time. Mild dysarthria present. Language is fluent with no aphasia. Motor Mild hypomimia; no tremors or dyskinesias; moderate bradykinesia on bilateral finger and hand movements. Assessment and Plan: Assessment Mr. Vides is a right-handed 78 year old male with Parkinson disease with onset and 2015 with left bradykinetic -reviewed presentation, dystonia and gait/postural changes. He was diagnosed in 2016. His symptoms were felt to be levodopa responsive. His course is complicated by dyskinesias and mild dystonia. He developed leg swelling with amantadine. His biggest problem currently i (more content not included)... [facility] 08-21-2024 History of Presen t illness Narrative [facility] - FOLLOW UP EVALUATION - VIRTUAL VISIT Sarika Montaño MD [address] [address] [id number] Dear Sarika Montaño MD: I had the pleasure of seeing Mr. Vides for follow-up today. As you know he is a 78 year old right-handed male with a history of Parkinson disease since 2014. He is seen alone. We had a visit using: copygram I have communicated my name and active licensure. The patient's identity and physical location were verified at the time of this visit. Either the patient or their legal mill representative has been informed of the risks and benefits of -- and alternatives to -- treatment through a remote evaluation and consents to proceed with the evaluation remotely. Subjective During his previous visit the following plan was made: Previous plan-11/04/2023 Visit: Parkinson disease with dyskinesias: continue on current dose of levodopa and artane Freezing: counseled on taking big steps; continue PT. Watch for constipation and leg swelling Interval History Says that he is doing pretty well. Denies motor fluctuations; occasional dyskinesias (not bothersome). No specific complaints. Memory and concentration are good; denies hallucinations; good mood in general. Sleep is fair to good (wakes up once in the middle of the night after 3-4 hours of sleep). Urination and bowel movements are regular. No falls. Movement Disorders Medications Schedule - as of [...] Yes (slight) Walking and balance problems: Yes (mild) Number of falls in the Last Month: Gait freezing: Yes (mild) Autonomic/Pain Lightheadeness on standing: Yes (mild) Urinary problems: 0 (none) Constipation problems: Yes (slight) Pain and other sensations: 0 (none) Speech/Swallowing Speech problems: Yes (slight) Drooling: Yes (mild) Chewing and swallowing problems: 0 (none) Sleep/Fatigue Sleep problems: Yes (mild) Daytime sleepiness: Yes (mild) Fatigue: Yes (mild) Mood/Behavior Depression: PHQ-9 Score: 2 usually representing no significant (0-4) depression. Anxiety: JUANJO-7 Total Score: 0 usually representing no significant (0-4) anxiety. Finally, the following table shows the patient's overall global physical and mental health using the PROMIS scale: PROMIS-10 Flowsheet Row Distance [facility] from 08/21/2024 in [facility] from 11/04/2023 in [facility] Global Physical Health T Score 47.7 47.7 Global Mental Health T Score 53.3 48.3 0-10 Standard Pain Scale 4 5 *PROMIS-10 scoring scale: mean = 50, over 50 is above average, under 50 is below average Objective Neurological Exam Mental Status Awake, alert and oriented to person, place and time. Mild dysarthria present. Language is fluent with no aphasia. Motor Mild hypomimia; no tremors or dyskinesias; moderate bradykinesia on bilateral finger and hand movements. Assessment and Plan: Assessment Mr. Vides is a right-handed 78 year old male with Parkinson disease with onset and 2015 with left bradykinetic -reviewed presentation, dystonia and gait/postural changes. He was diagnosed in 2016. His symptoms were felt to be levodopa responsive. His course is complicated by dyskinesias and mild dystonia. He developed leg swelling with amantadine. His biggest problem currently is freezing of gait. He is getting local PT. He has no transportation. In generally he is doing well--denies motor fluctuations with current regimen; dyskinesias are non-bothersome. Denies cognitive, behavioral and autonomic complaints. The following are the current problems noted and addressed during this visit: Parkinson's disease with dyskinesia, unspecified whether manifestations fluctuate (hcc) (primary encounter diagnosis) Levodopa-induced dyskinesia Plan 08/21/2024 Visit: Parkinson disease with dyskinesias: non-bothersome; continue with current regimen for now Watch for sleep disturbance Patient's perception of importance for healthcare provider to let them know of research trials for which they may be eligible? Very Important Interested in clinical research? Not discussed Updated Movement Disorder Medication Schedule: Medications 9AM 1PM 5PM bedtime Carbidopa/levodopa 25/100 mg 1.5 1.5 1 Amantadine 100 mg 1 1 CR carbidopa/levodopa 25/100 mg 1 Level of service : 84447 ( 30-39 min). Time spent 30 min on the day of service, which included preparing to see the patient, [id number] patient care, completing clinical documentation, obtaining and/or reviewing separately obtained history, performing a medically appropriate examination, and counseling and educating the patient/family/caregiver. Thank you for allowing me to be part of the clinical care of this patient! I look forward to continued participation in the patient s care with you. Please do not hesitate to call with any questions. Sincerely, Claude Kyle MD documented in this encounter [facility] 06-25-2024 Telephone encounter Note Pt requesting refill as follows: Last FUV Oct 2023 with [facility]. Requested Prescriptions Pending Prescriptions Disp Refills carbidopa-levodopa (SINEMET 25-100) 25-100 mg per tablet 135 tablet 5 Sig: Take 1.5 tablet every 5 hours, 3 times daily. Upon approval, script will be sent electronically to the patient's pharmacy. Sammie Pruitt, [employer] [facility] 06-25-2024 Miscellaneous Notes Pt requesting refill as follows: Last FUV Oct 2023 with [facility]. Requested Prescriptions Pending Prescriptions Disp Refills carbidopa-levodopa (SINEMET 25-100) 25-100 mg per tablet 135 tablet 5 Sig: Take 1.5 tablet every 5 hours, 3 times daily. Upon approval, script will be sent electronically to the patient's pharmacy. Sammie Pruitt, [employer] documented in this encounter [facility] 02-20-2024 Discharge summary Note Date/Time January 16, 2024 8:01pm [facility] Medical Records Department [address] [place] [address] Discharge Summary 01/16/241957 MR#: [id number] Acct: [id number] Name: MAYNOR VIDES III Rep #:[id number] : 1945 78 From: Ravi Conway MD PCP: Dr. Sarika Montaño MD Status:ADM IN Location: [facility] TCU- Providers Date of Admission: 12/24/23 Primary Care Physician: Dr. Sarika Montaño MD Consultations 12/24/23 18:49 Consult: Onc/Wound/contract programmer Routine Comment: Reason for Consult:: New colostomy Reason For Visit: SIGMOID VOLVULUS Diagnosis Discharge Diagnosis (1) Postoperative seroma: Status: Acute Qualifiers: Surgical complication system/body Area: skin Procedure type: non-dermatologic Qualified Code(s): L76.34 - Postprocedural seroma of skin and subcutaneous tissue following other procedure Plan 78 year old male with Parkinson Disease, hospitalized for bowel obstruction/sigmoid volvulus, underwent partial colectomy/colostomy 12/15/2023, complicated by fever, urinary retention, hematuria, SARITHA, admitted to TCU with debility, here for rehabilitation, strengthening, prior to discharge home alone. * Debility - PT/OT. * Dysphagia - ST. * Pain - Tylenol 1000mg q6 prn pain (1-10). * Bowel - senna/colace 1 tablet bid prn. * Adult immunization - Administer pneumonia vaccine, covid vaccine, flu vaccine as appropriate. * DVT prophylaxis - Hold, hematuria. * Parkinson Disease - Sinemet 25/100mg 1.5 am, 1 tablet bid, Sinemet 50/200mg 1/2 tablet qhs, Amantadine 100mg daily. * Hypertension - Coreg 6.25mg bidcm. * Nutrition - Ensure 120ml 4x/day. * GERD - Pantoprazole 40mg daily. * BPH/urinary retention - Tamsulosin 0.4mg daily, indwelling ayala catheter. Medications at Discharge Home Medications amantadine HCl 100 mg capsule 100 mg PO DAILY hill 12/04/23 carvedilol 6.25 mg tablet 6.25 mg PO BID Heart #60 tabs 12/24/23 food supplemt, lactose-reduced 0.08 gram-1.5 kcal/mL oral liquid (Ensure Plus High Protein) 120 ml PO 4X/DAY nutrition #237 mL 12/24/23 pantoprazole 40 mg tablet,delayed release 40 mg PO DAILY stomach acid 2 weeks #14 tabs 12/24/23 tamsulosin 0.4 mg capsule 0.4 mg PO DAILY@1730 bladder 30 days #30 caps 12/24/23 carbidopa 25 mg-levodopa 100 mg tablet 2 tab PO 0800 #0 tabs 01/16/24 carbidopa 25 mg-levodopa 100 mg tablet 2 tab PO BID@1100,1600 #0 tabs 01/16/24 carbidopa ER 50 mg-levodopa 200 mg tablet,extended release 1 tab PO QHS #0 tabs 01/16/24 carboxymethylcellulose sodium 0.5 % eye drops (Refresh Tears) 1 drp ophthalmic (eye) Q6H PRN PRN DRY EYES #0 mL 01/16/24 fluticasone propionate 50 mcg/actuation nasal spray,suspension 1 spray NASAL BID#0 grams 01/16/24 melatonin 10 mg sublingual tablet 5 mg (1/2 x 10 mg) PO QHS PRN Insomnia #0 tabs01/16/24 menthol 0.44 %-zinc oxide 20.6 % topical ointment (Calmoseptine) 1 applic topical BID #0 grams 01/16/24 nystatin 100,000 unit/gram topical powder (Nyamyc) 1 applic topical BID #0 grams01/16/24 sennosides 8.6 mg-docusate sodium 50 mg tablet (Stool Softener-Stimulant Laxative) 2 tab PO BID #0 tabs 01/16/24 sodium chloride 0.65 % nasal spray aerosol (Deep Sea Nasal) 1 spray NASAL BID #0mL 01/16/24 sodium chloride 0.65 % nasal spray aerosol (Deep Sea Nasal) 1 spray NASAL BID PRN PRN NASAL DRYNESS #0 mL 01/16/24 Hospital Course Operations - (See below.) Procedures None Summary of Care Provided Minutes Spent on Discharge: 35 Hospital Course: 78 year old male with Parkinson Disease, hospitalized for bowel obstruction/sigmoid volvulus, underwent partial colectomy/colostomy 12/15/2023, complicated by fever, urinary retention, hematuria, SARITHA, admitted to TCU with debility, here for rehabilitation, strengthening, prior to discharge home alone. Discharge to SNF 01/23/2024, intermediate, part b therapies. Physical Exam Const alert General Appearance: cooperative HEENT normocephalic Eyes PERRL and EOMs intact bilaterally Neck supple, no JVD and no carotid bruits Resp normal respiratory effort, normal air movement and clear to auscultation bilaterally Cardio regular rate and regular rhythm GI normal to inspection, nondistended, normoactive bowel sounds, non-tender and non-distended GI Narrative: Midline wound clean. Colostomy LLQ. Bladder / Kidney Exam: catheter in place urethral Extremity normal capillary refill General Extremity: Negative for edema Skin no rashes or lesions noted General Skin Exam: no breakdown Psych affect normal Appearance: appropriate Weight / BMI Weight Weight: 64.864 kg Body Mass Index (BMI) 20.5 ABG / Lab / Microbiology Data 01/15/24 05:10 01/15/24 05:10 D/C Instructions Discharge Diet: No restrictions Discharge Activity: Return to Normal Activity, May Shower and Use Walker Weight Bearing Status: Weight bearing as tolerated Call your doctor if you observe: Fever of 101 or Higher, Inability to urinate, Inability to have a bowel movement, Shortness of breath, Dizziness, Fainting spells, Swelling in the ankles, Chest pain and Uncontrolled pain Additional Instructions: Discharge to SNF 01/23/2024, intermediate, part b therapies. Please Follow Up With: Garth Becerra MD When: As scheduled. Meaningful Use Info Meaningful Use Diagnoses (Choose all that apply): None applicable Discharge Plan Admission Admit Date/Time: 12/24/23 15:59 Primary Reason for Your Visit: Debility. Attending Provider: Ravi Conway Chi Primary Care Provider: Sarika Montaño Instructions Additional Instructions / Restrictions: Discharge to SNF 01/23/2024, intermediate, part b therapies. Discharge Orders/Prescriptions Prescriptions: New carbidopa-levodopa 50-200 mg Tablet Extended Release 1 tab PO QHS Qty: 0 0RF carboxymethylcellulose sodium [Refresh Tears] 0.5 % Drops 1 drp ophthalmic (eye) Q6H PRN PRN (Reason: DRY EYES) Qty: 0 0RF carbidopa-levodopa 25-100 mg Tablet 2 tab PO BID@1100,1600 Qty: 0 0RF carbidopa-levodopa 25-100 mg Tablet 2 tab PO 0800 Qty: 0 0RF fluticasone propionate 50 mcg/actuation [place],Suspension 1 spray NASAL BID Qty: 0 0RF melatonin 10 mg Tablet, Sublingual 5 mg PO QHS PRN (Reason: Insomnia) Qty: 0 0RF menthol-zinc oxide [Calmoseptine] 0.44-20.6 % Ointment 1 applic topical BID Qty: 0 0RF Protocol: *Topical Application Instructions APPLICATION INSTRUCTIONS: Apply to buttocks/ scrotal area sennosides-docusate sodium [Stool Softener-Stimulant Laxat] 8.6-50 mg Tablet 2 tab PO BID Qty: 0 0RF nystatin [Nyamyc] 100,000 unit/gram Powder 1 applic topical BID Qty: 0 0RF Protocol: *Topical Application Instructions APPLICATION INSTRUCTIONS: apply to groin and scrotum Deep Sea Nasal 0.65 % Aerosol,[place] 1 spray NASAL BID Qty: 0 0RF [place] Nasal 0.65 % Aerosol,[place] 1 spray NASAL BID PRN PRN (Reason: NASAL DRYNESS) Qty: 0 0RF Continued amantadine HCl 100 mg capsule 100 mg PO DAILY Patient Comments: takes 1 tablet at noon tamsulosin 0.4 mg Capsule 0.4 mg PO DAILY@1730 30 Days Qty: 30 0RF pantoprazole 40 mg Tablet,Delayed Release (Dr/Ec) 40 mg PO DAILY 14 Days Qty: 14 0RF Ensure Plus High Protein 0.08 gram-1.5 kcal/mL Liquid 120 ml PO 4X/DAY Qty: 237 0RF carvedilol 6.25 mg Tablet 6.25 mg PO BID Qty: 60 0RF Discontinued carbidopa-levodopa 25-100 mg tablet 1.5 tab PO DAILY Patient Comments: take 1.5 tablets between 8 and 9 AM carbidopa-levodopa 25-100 mg tablet extended release 1 tab PO QHS Patient Comments: takes at 11 PM before bed carbidopa-levodopa 25-100 mg tablet 1 tab PO BID Patient Comments: takes 1 tablet at noon and 1 tablet in the evening Referrals / Follow Up: Sarika Montaño MD [Primary Care Provider] - Disposition Disposition (needs filled in before D/C Order can be placed): Snf Facility 01/16/242005 <Electronically signed by Ravi Conway MD> Cosigner Signature (if applicable): CC: Dr. Sarika Montaño MD; Dr. Ravi Conway MD~ Signed ADDENDUM by Dr. 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 02/17/24 0743<Electronically signed by Ravi Conway MD> Cosigner Signature (if applicable): cc: Dr. Sarika Montaño MD; Dr. Ravi Conway MD ~* Signed ADDENDUM by Dr. Ravi Conway MD on 02/19/24 at 0732 Addendum Urine culture inconsistent with UTI, stop Cipro. 02/19/24 0732<Electronically signed by Ravi Conway MD> Cosigner Signature (if applicable): cc: Dr. Sarika Montaño MD; Dr. Ravi Conway MD ~* Signed ADDENDUM by Dr. Ravi Conway MD on 02/20/24 at 0748 Addendum UTI - Urine culture growing MRSA, C. Albicans below infection level, but resident continues to c/o dysuria, will treat as UTI, Nitrofurantoin 100mg bid x7 days, Fluconazole 100mg daily x 7 days. 02/20/24 0748<Electronically signed by Ravi Conway MD> Cosigner Signature (if applicable): cc: Dr. Sarika Montaño MD; Dr. Ravi Conway MD ~* Signed [facility] Work Phone: 1(693) 693-334205-01-2024 Progress note Author Surjit Kirkland [facility] February 19, 2024 11:46am Note Date/Time February 19, 2024 10:06a [facility] Medical Records Department [address] [place] [address] Progress Note - Surgery 02/19/24 1006 MR#: [id number] Acct: [id number] Name: MAYNOR VIDES III Rep #:[id number] : 1945 78 From: Surjit العراقي PCP: Dr. Sarika Montaño MD Status:ADM IN Location: [facility] TCU02-1 Subjective Subjective Patient seen and examined during AM rounds after being notified by wound and ostomy nursing that previously close midline wound had reopened in 1 aspect. Mr. Vides states that he is doing well and this enthusiastic about plans to return home at the end of this week. He confirms that he has lots of help in place. He also shares that he is doing well from a dietary standpoint and has added back 12 pounds of his initial weight loss of 18 pounds. Objective Data Objective Data Vital Signs: Vital Signs Temp Pulse Resp BP Pulse Ox O2 Del Method 97.6 F L 67 16 105/59 L 97 Room Air 02/18/24 08:15 02/19/24 08:09 02/18/24 08:15 02/19/24 08:09 02/18/24 08:15 02/18/24 08:15 Oxygen Delivery Method Room Air Weight: 149 lb 14.4 oz Body Mass Index (BMI) 21.4 Intake & Output: Intake and Output for Last 24 Hours 02/17/24 02/18/24 02/19/24 23:59 23:59 23:59 Intake Total 1080 / 1080 720 / 720 220 / 220 Balance 1080 / 1080 720 / 720 220 / 220 Lab / Micro Data 01/28/24 05:19 01/28/24 05:19 Micro: Microbiology 02/17/24 17:30 Urine, Catheterized Urine Culture - Preliminary Staphylococcus aureus Physical Exam Const oriented x3 and no apparent distress GI GI Narrative: Abdomen is nondistended and colostomy in left lower quadrant appears appropriatewith good perfusion. There is no tenderness with palpation x 4 quadrants. Supraumbilical wound along patient's prior laparotomy incision appears to have reopened superficially and there is a silver dressing with dried drainage to it. There is no odor with this drainage. The wound is probed and I am able to feelsuture material in the fascia at the wound base. The suture material was sharply removed with minimal bleeding. The wound was then repacked. Assessment & Plan Assessment/Plan (1) Foreign body reaction: PLAN: Patient is a 78-year-old male who underwent exploratory laparotomy with sigmoid resection on 12/15/2023. He had a short hospital stay following the operation and has remained in the transitional care unit ever since improving his nutrition and rehabilitating his strength. He is nearing discharge but in the past couple of days experience reopening of a wound that had been previouslyclosed and felt to represent a seroma. Upon further inspection patient had a suture knot at the base of the wound that appeared to be propagating the sinus tract. Thus it was sharply removed at bedside during today's exam. This was well-tolerated the wound was repacked. Recommend daily packing of the wound until fully healed by secondary intention. Happy to see the patient in follow-up approximately 2 weeks post discharge from TCU for a wound check. Update is also being conveyed to wound and ostomy nursing. Charges/Coding Visit Charges Inpatient E&M: 97901 SNF Subs L2 02/19/24 1146 <Electronically signed by Surjit Kirkland MD> Cosigner Signature (if applicable): CC: ~ Signed [facility] Work Phone: 1(663) 934-911904-30-2024 Progress note Author Ravi Conway [facility] February 18, 2024 7:31am Note Date/Time January 28, 2024 6:59 pm [facility] Medical Records Department [address] [place] [address] Progress Note - [facility] 01/28/24 1854 MR#: [id number] Acct: [id number] Name: MAYNOR VIDES III Rep #:[id number] : 1945 78 From: Ravi Conway MD PCP: Dr. Sarika Montaño MD Status:ADM IN Location: [place] [address]-1 Subjective Subjective Resident seen, examined for regulatory visit. Initial [facility] was cancelled, resident goal to go home. He is doing well, he has no new problems, concerns, issues, complaints. He is progressing with therapy. Objective Data Objective Data Vital Signs: Vital Signs Temp Pulse Resp BP Pulse Ox O2 Del Method 97.8 F 75 14 116/70 97 Room Air 01/28/24 16:00 01/28/24 16:00 01/28/24 16:00 01/28/24 16:00 01/28/24 16:00 01/28/24 16:00 Oxygen Delivery Method Room Air Weight: 67.585 kg Body Mass Index (BMI) 21.3 Intake & Output: Intake and Output for Last 24 Hours 01/26/24 01/27/24 01/28/24 23:59 23:59 23:59 Intake Total 980 / 980 960 / 960 1160 / 1160 Output Total 400 / 400 Balance 980 / 980 960 / 960 760 / 760 Lab / Micro Data Attestation: I reviewed the patient's lab results. 01/28/24 05:19 01/28/24 05:19 Labs: Laboratory Results - last 24 hr 01/28/24 05:19: WBC 5.3, RBC 3.49 L, Hgb 11.0 L, Hct 33.8 L, MCV 96.8 H, MCH 31.5, MCHC 32.5, RDW Std Deviation 53.5 H, RDW Coeff of Ann 15.1 H, Plt Count 218, MPV 10.7, Immature Gran % (Auto) 0.600, Neut % (Auto) 61.9, Lymph % (Auto) 24.9, [place] % (Auto) 9.2, Eos % (Auto) 2.8, Baso % (Auto) 0.6, Absolute Neuts (auto) 3.3, Absolute Lymphs (auto) 1.32, Nucleated RBC % 0, Sodium 139, Potassium 3.9, Chloride 104, Carbon Dioxide 26.0, Anion Gap 9, BUN 23 H, Creatinine 0.87, Estim Creat Clear Calc 66.79, Est GFR (MDRD) Af Amer 110, Est GFR (MDRD) Non-Af 91, BUN/Creatinine Ratio 26.5 H, Glucose 96, Calcium 8.4 L Physical Exam Const alert General Appearance: cooperative HEENT normocephalic Eyes PERRL and EOMs intact bilaterally Neck supple, no JVD and no carotid bruits Resp normal respiratory effort, normal air movement and clear to auscultation bilaterally Cardio regular rate and regular rhythm GI normal to inspection, nondistended, normoactive bowel sounds, non-tender and non-distended GI Narrative: Midline wound clean. Colostomy LLQ. Bladder / Kidney Exam: catheter in place urethral Extremity normal capillary refill General Extremity: Negative for edema Skin no rashes or lesions noted General Skin Exam: no breakdown Psych affect normal Appearance: appropriate Assessment & Plan Assessment/Plan (1) Postoperative seroma: QUALIFIERS: Surgical complication system/body Area: skin Procedure type: non-dermatologic Qualified Code(s): L76.34 - Postprocedural seroma of skin and subcutaneous tissue following other procedure PLAN: Plan 78 year old male with Parkinson Disease, hospitalized for bowel obstruction/sigmoid volvulus, underwent partial colectomy/colostomy 12/15/2023, complicated by fever, urinary retention, hematuria, SARITHA, admitted to TCU with debility, here for rehabilitation, strengthening, prior to discharge home alone. * Debility - PT/OT. * Dysphagia - ST. * Pain - Tylenol 1000mg q6 prn pain (1-10). * Bowel - senna/colace 2 tablets bid. * Adult immunization - Administer pneumonia vaccine, covid vaccine, flu vaccine as appropriate. * DVT prophylaxis - Hold, hematuria. * Parkinson Disease - Sinemet 25/100mg 2 tablets tid, Sinemet 50/200mg 1 tablet qhs, Amantadine 100mg daily. * Dry eyes - Artificial tears 1gtt ou q6 prn. * Rash - HC cream topical tid prn. * Insomnia - Melatonin 5mg qhs prn. * Skin irritation - Calmoseptine topical bid. * Tinea Corporis - Nystatin powder topical bid. * Hypertension - Coreg 6.25mg bidcm. * Nutrition - Ensure 120ml 4x/day. * GERD - Pantoprazole 40mg twice daily. * Dry nares - [place] 1 spray nasal bid prn. 01/28/24 1859 <Electronically signed by Ravi Conway MD> Cosigner Signature (if applicable): CC: ~ Signed ADDENDUM by Dr. Ravi Conway MD on 02/18/24 at 0731 Addendum UTI - resident c/o dysuria, UA c/w UTI, urine culture pending, rx Cipro 250mg bid x 7 days. 02/18/24730<Electronically signed by Ravi Conway MD> Cosigner Signature (if applicable): cc: ~* Signed [facility] Work Phone: 1(546) 114-502704-29-2024 Progress note Author [facility] February 17, 2024 11:58am Note Date/Time February 17, 2024 10: 30am [facility] Medical Records Department [address] [place] [address] Progress Note - Pharmacy 02/17/24 1029 MR#: [id number] Acct: [id number] Name: MAYNOR VIDES III Rep #:[id number] : 1945 78 From: Angelito Mathew PCP: Dr. Sarika Montaño MD Status:ADM IN Location: [facility]1 Documented by User: Angelito Mathew 02/17/24 10:41 TCU RX Drug Regimen Review Subjective/Objective Subjective/Objective: Subjective: TCU progress note. 78 year old male with Parkinson Disease, hospitalized for bowel obstruction/sigmoid volvulus, underwent partial colectomy/colostomy 12/15/2023, complicated by fever, urinary retention, hematuria, SARITHA, admitted to TCU with debility, here for rehabilitation, strengthening, prior to discharge home alone. Objective: Allergies No Known Allergies Allergy (Verified 12/13/23 11:57) Current Medications Generic Name Dose Route Start Last Admin Trade Name Freq PRN Reason Stop Dose Admin Acetaminophen 1,000 mg 12/24/23 20:18 Acetaminophen 500 Mg Tablet PO Q6H PRN PRN Pain Score 1-10 Amantadine HCl 100 mg 12/25/23 12:00 02/17/24 08:14 Amantadine 100 Mg Capsule PO 100 mg DAILY GAURI Administration Artificial Tears 1 drp 01/06/24 09:58 01/17/24 07:54 Carboxymethylcellulose Sodium 1 Drp Drops OPHTHALMIC 1 drp Q6H PRN PRN Administration DRY EYES Calamine/Phenol 1 applic 02/02/24 11:10 02/17/24 08:16 Menthol/Lanolin/Calamine/Znox 113 Gm Tube TOPICAL 1 applic BID GAURI Administration Protocol Carbidopa/Levodopa 2 tablet 01/14/24 08:00 02/17/24 08:12 Carbidopa/Levodopa 25/100 Tablet PO 2 tablet 0800 GAURI Administration Carbidopa/Levodopa 2 tablet 01/14/24 11:00 02/16/24 17:19 Carbidopa/Levodopa 25/100 Tablet PO 2 tablet BID@1100,1600 GAURI Administration Carbidopa/Levodopa 1 tablet 01/13/24 22:00 02/16/24 22:00 Carbidopa/Levodopa Cr 50/200 Tablet PO 1 tablet QHS GAURI Administration Carvedilol 6.25 mg 12/24/23 22:00 02/17/24 08:12 Carvedilol 6.25 Mg Tablet PO 6.25 mg BIDCM GAURI Administration Protocol Hydrocortisone 1 applic 01/17/24 13:14 02/14/24 13:00 Hydrocortisone 2.5% Crm TOPICAL 1 applic TID PRN PRN Administration RASH/TOPICAL IRRITATION Protocol Melatonin 5 mg 02/02/24 10:29 Melatonin 10 Mg Tablet PO QHS PRN INSOMNIA Nutritional Formula (Lactose Free) 120 ml 02/02/24 12:00 02/17/24 06:48 Ensure Plus High Protein 120 Ml Liquid PO 120 ml 4X/DAY GAURI Administration Nystatin 1 applic 02/02/24 22:00 02/17/24 08:16 Nystatin Powder 15gm Bottle TOPICAL 1 applic BID GAURI Administration Protocol Pantoprazole Sodium 40 mg 12/25/23 10:00 02/17/24 08:14 Pantoprazole Sodium 40 Mg Tablet PO 40 mg DAILY GAURI Administration Senna/Docusate Sodium 2 tablet 01/15/24 22:00 04/29/24 08:14 Senna/Docusate Sodium 1 Tablet PO 2 tablet BID GAURI Administration Sodium Chloride 1 spray 12/26/23 22:00 02/17/24 08:13 Sodium Chloride 0.65% 1 [place] Estillfork.Btl NASAL 1 spray BID GAURI Administration Sodium Chloride 1 spray 01/04/24 11:30 Sodium Chloride 0.65% 1 [place] Estillfork.Btl NASAL BID PRN PRN NASAL DRYNESS Sodium Chloride 10 - 40 ml 02/02/24 10:29 0.9% Saline Lock 10 Ml Syringe IV UD PRN SALINE FLUSH Tamsulosin HCl 0.4 mg 12/24/23 17:30 02/16/24 17:22 Tamsulosin Hcl 0.4 Mg Capsule PO 0.4 mg DAILY@1730 GAURI Administration Problem List (Updated 01/06/24 @ 11:51 by Karin DELEON, PAHinaC) Postoperative seroma (Acute) Parkinson disease (Acute) Acute kidney injury (Acute) Urinary retention (Acute) Debility (Acute) Hematuria (Acute) Vital Signs Temp Pulse Resp BP Pulse Ox O2 Del Method 97.2 F L 67 18 118/64 98 Room Air 02/16/24 15:55 02/16/24 15:55 02/16/24 15:55 02/16/24 15:55 02/16/24 15:55 02/16/24 15:55 Oxygen Delivery Method Room Air Weight: 67.495 kg Body Mass Index (BMI) 21.2 Sodium 139 mmol/L (136-145) 01/28/24 05:19 Potassium 3.9 mmol/L (3.5-5.1) 01/28/24 05:19 Chloride 104 mmol/L (98-107) 01/28/24 05:19 Carbon Dioxide 26.0 mmol/L (21.0-32.0) 01/28/24 05:19 Anion Gap 9 (5-15) 01/28/24 05:19 BUN 23 mg/dL (7-18) H 01/28/24 05:19 Creatinine 0.87 mg/dL (0.70-1.30) 01/28/24 05:19 Est GFR (MDRD) Af Amer 110 mL/min (>60) 01/28/24 05:19 Est GFR (MDRD) Non-Af 91 mL/min (>60) 01/28/24 05:19 BUN/Creatinine Ratio 26.5 RATIO (10-20) H 01/28/24 05:19 Glucose 96 mg/dL (74-106) 01/28/24 05:19 Assessment/Plan: 1. Pain: Tylenol 1000mg PO Q6h PRN Pain 1-10. The patient has not required any PRN doses of PRN acetaminophen so far this admission. Please continue to monitorfor increased/decreased S/S pain, and PRN medication usage. 2. Bowel: Senna/docusate 2 tablets PO BID. The patient's last bowel movement was02/15/24. Please continue to monitor for constipation, diarrhea, and BM. 3. Parkinson Disease: Sinemet 25/100mg 2 tabs PO TID, Sinemet 50/200mg 1 tab PO QHS, Amantadine 100mg PO Daily. Please continue to monitor for dizziness, insomnia, nausea, dyskinesia, swelling, constipation. 3. Hypertension: carvedilol 6.25mg PO BID. Please continue to monitor BP (recentrange = 100-132/61-72 mmHg), and heart rates (recent range = 61-72 BPM). 4. BPH/Urinary retention: tamsulosin 0.4mg PO Daily. Please continue to monitor for hematuria, blood pressure, urinary retention and for s/s of orthostasis. 5. GERD: pantoprazole 40 mg PO daily. Please continue to monitor for s/s of GERD, for diarrhea that could indicate clostridium difficile infection as well as for s/s of bone resorption such as fractures. 6. Insomnia: melatonin 5 mg PO QHS PRN insomnia. The patient has not required any PRN doses of melatonin so far this admission. Please continue to monitor forinsomnia, and PRN medication usage as well as drowsiness. 7. Dry eyes: artificial tears 1 drop in each eye Q6H PRN dry eyes. The patient has used 19 doses of artificial tears so far this admission. Please continue to monitor for dry eyes and for PRN medication usage. 8. Dry nares: ocean nasal spray 1 spray in each nostril BID and BID PRN dry nares. Please continue to monitor for dry nares and PRN medication administration. 9. Rash/skin irritation/tinea corporis: hydrocortisone 2.5% cream topically TID PRN rash, calmoseptine 1 application topically BID, nystatin powder 1 application BID. Please continue to monitor for rash, for skin irritation/integrity and for resolution of tinea corporis. 10. Nutrition: ensure 120 mL PO 4x per day. Please continue to monitor nutritional status. Assessment/Plan for indications treated with psychotropic medications: NA Medical chart and medication regimen reviewed. The following medication irregularities or issues were identified: NA Date Date of Note:: 02/17/24 Documented by User: Dr. Ravi Conway MD 02/17/24 11:58 TCU RX Drug Regimen Review Provider Comments Provider responsibility Provider Comments to Recommendations by Pharmacy: Agree 02/17/24 1041 <Electronically signed by Angelito Mathew> Angelito Mathew Cosignkennye Signature (if applicable): 02/17/24 1158 <Electronically signed by Ravi Conway MD> CC: ~ Signed [facility] Work Phone: [phone]) 470-234104-29-2024 Discharge summary Author Ravi Man [facility] February 17, 2024 7:43am Note Date/Time January 16, 2024 8:[address] [facility] Medical Records Department [address] [place] [address] Transfer to [facility] MR#: [id number] Acct: [id number] Name: MAYNOR VIDES III Rep #:[id number] : 1945 78 From: Ravi Conway MD PCP: Dr. Sarika Montaño MD Status:ADM IN Certification of patient admission REQUIRED AT TIME OF ADMISSION. I CERTIFY THAT POST-HOSPITAL ECF SERVICES ARE REQUIRED TO BE GIVEN ON AN IN-PATIENT BASIS BECAUSE OF THE ABOVE NAMED PATIENT'S NEED FOR HALF-WAY CARE ON A CONTINUING BASIS FOR THE CONDITION(S) FOR WHICH HE/SHE WAS RECEIVING IN-PATIENT HOSPITAL SERVICES PRIOR TO HIS/HER TRANSFER TO THE [facility]. 01/16/242006<Electronically signed by Ravi Conway MD> Diet Diet Order/Speech Therapy: 12/24/23 16:29 Diet: Regular - General Dietary Modifications:: Sodium Restricted Is pt able to select menu?: Yes Diet Comments: 1:1 supervision Routine Orders/Code Status Code Status: Full Code Wound(s) Left Brown: Wound Type: Abrasion Midline Incision: Wound Type: Open Surgical Wound Dressing Change: Dry Sterile Dressing Therapies Weight Bearing: Weight bearing as tolerated Extremity Affected:: Bilateral Lower Physical Therapy: Eval and Treat Occupational Therapy: Eval and Treat Problem/Diagnosis (1) Postoperative seroma: Status: Acute Plan 78 year old male with Parkinson Disease, hospitalized for bowel obstruction/sigmoid volvulus, underwent partial colectomy/colostomy 12/15/2023, complicated by fever, urinary retention, hematuria, SARITHA, admitted to TCU with debility, here for rehabilitation, strengthening, prior to discharge home alone. * Debility - PT/OT. * Dysphagia - ST. * Pain - Tylenol 1000mg q6 prn pain (1-10). * Bowel - senna/colace 1 tablet bid prn. * Adult immunization - Administer pneumonia vaccine, covid vaccine, flu vaccine as appropriate. * DVT prophylaxis - Hold, hematuria. * Parkinson Disease - Sinemet 25/100mg 1.5 am, 1 tablet bid, Sinemet 50/200mg 1/2 tablet qhs, Amantadine 100mg daily. * Hypertension - Coreg 6.25mg bidcm. * Nutrition - Ensure 120ml 4x/day. * GERD - Pantoprazole 40mg daily. * BPH/urinary retention - Tamsulosin 0.4mg daily, indwelling ayala catheter. Allergies/Procedures Done in Hospital Allergies No Known Allergies Allergy (Verified 12/13/23 11:57) Procedures: None Type of Care/Length of Stay Estimated LOS: Convalescent Care Less Than 30 days Type of Care Needed: Intermediate Rehab Potential: Fair Prognosis: Fair Additional Orders/Day of Discharge Day of Discharge: 01/23/24 Dietary and Speech Recommendations Dietitian Recommendations/Changes: Continue Regular Sodium Restricted diet d/t pmhx and issues w/ edema Continue ONS w/ medpass to help w/ skin healing and to help prevent further wt loss Follow Up Care Please follow up with your Primary Care Physician in: Sarika Montaño Please Follow Up With: Garth Becerra MD When: 7-10days Discharge Plan Admission Admit Date/Time: 12/24/23 15:59 Primary Reason for Your Visit: Debility. Attending Provider: Ravi Conway Chi Primary Care Provider: Sarika Montaño Instructions Additional Instructions / Restrictions: Discharge to SNF 01/23/2024, intermediate, part b therapies. Discharge Orders/Prescriptions Prescriptions: New carbidopa-levodopa 50-200 mg Tablet Extended Release 1 tab PO QHS Qty: 0 0RF carboxymethylcellulose sodium [Refresh Tears] 0.5 % Drops 1 drp ophthalmic (eye) Q6H PRN PRN (Reason: DRY EYES) Qty: 0 0RF carbidopa-levodopa 25-100 mg Tablet 2 tab PO BID@1100,1600 Qty: 0 0RF carbidopa-levodopa 25-100 mg Tablet 2 tab PO 0800 Qty: 0 0RF fluticasone propionate 50 mcg/actuation [place],Suspension 1 spray NASAL BID Qty: 0 0RF melatonin 10 mg Tablet, Sublingual 5 mg PO QHS PRN (Reason: Insomnia) Qty: 0 0RF menthol-zinc oxide [Calmoseptine] 0.44-20.6 % Ointment 1 applic topical BID Qty: 0 0RF Protocol: *Topical Application Instructions APPLICATION INSTRUCTIONS: Apply to buttocks/ scrotal area sennosides-docusate sodium [Stool Softener-Stimulant Laxat] 8.6-50 mg Tablet 2 tab PO BID Qty: 0 0RF nystatin [Nyamyc] 100,000 unit/gram Powder 1 applic topical BID Qty: 0 0RF Protocol: *Topical Application Instructions APPLICATION INSTRUCTIONS: apply to groin and scrotum Deep Sea Nasal 0.65 % Aerosol,[place] 1 spray NASAL BID Qty: 0 0RF Deep Sea Nasal 0.65 % Aerosol,[place] 1 spray NASAL BID PRN PRN (Reason: NASAL DRYNESS) Qty: 0 0RF Continued amantadine HCl 100 mg capsule 100 mg PO DAILY Patient Comments: takes 1 tablet at noon tamsulosin 0.4 mg Capsule 0.4 mg PO DAILY@1730 30 Days Qty: 30 0RF pantoprazole 40 mg Tablet,Delayed Release (Dr/Ec) 40 mg PO DAILY 14 Days Qty: 14 0RF Ensure Plus High Protein 0.08 gram-1.5 kcal/mL Liquid 120 ml PO 4X/DAY Qty: 237 0RF carvedilol 6.25 mg Tablet 6.25 mg PO BID Qty: 60 0RF Discontinued carbidopa-levodopa 25-100 mg tablet 1.5 tab PO DAILY Patient Comments: take 1.5 tablets between 8 and 9 AM carbidopa-levodopa 25-100 mg tablet extended release 1 tab PO QHS Patient Comments: takes at 11 PM before bed carbidopa-levodopa 25-100 mg tablet 1 tab PO BID Patient Comments: takes 1 tablet at noon and 1 tablet in the evening Referrals / Follow Up: Sarika Montaño MD [Primary Care Provider] - Disposition Disposition (needs filled in before D/C Order can be placed): Snf Facility (1) Postoperative seroma Qualifiers: Surgical complication system/body Area: skin Procedure type: non-dermatologic Qualified Code(s): L76.34 - Postprocedural seroma of skin and subcutaneous tissue following other procedure 01/16/242006 <Electronically signed by Ravi Conway MD> Cosigner Signature (if applicable): CC: Dr. Sarika Montaño MD ~ ADDENDUM by Dr. 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 02/17/24 0743 <Electronically signed by Ravi Conway MD> cc: Dr. Sarika Montaño MD ~* Signed [facility] Work Phone: 1(296) 929-741103-29-2024 History and physical note Author Ravi Conway [facility] January 17, 2024 1:16pm Note Date/Time December 24, 2023 8:13 pm [facility] Medical Records Department [address] [place] [address] History & Physical Exam 12/24/231999 MR#: [id number] Acct: [id number] Name: MAYNOR VIDES III Rep #:[id number] : 1945 78 From: Ravi Conway MD PCP: Dr. Sarika Montaño MD Status:ADM IN Location: [facility] TCU02-1 HPI - General General Date of Admission: 12/24/23 Date of Service: 12/24/23 Chief Complaint: Here for rehabilitation. HPI Narrative 12/13/2023 MAYNOR VIDES, is a 78 Male who presents to [facility] ED with abdominal pain. Abdominal pain, nausea/vomiting x 2 days after [employer] with coleslaw. Intermittent pain, vomiting several times. Morphine, Zofran, IV fluids given. CT showed bowel obstruction, possible sigmoid volvulus. 12/13/2023 Admit to [facility]. Dr. Kirkland, no peritonitis, Zosyn given. 12/13/2023 Dr. Chen performed colonoscopy, diverticulosis sigmoid colon, volvulus partially decompressed. 12/13/2023 IV fluids, NGT suction, NPO, PPI IV, Zosyn IV. IV fluids for SARITHA. 12/14/2023 Abdominal pain better, passing gas, no BM's x 2 days. Rectal tube. LR IV, PPI IV, Zosyn IV, try to avoid surgery. 12/15/2023 Fever 100.8, decreased urine output. SARITHA improving. 12/15/2023 Dr. Kirkland performed exploratory laparatomy, small bowel resection, repair small bowel enterotomy, sigmoid colectomy with colostomy, transversus abdomins plane block. 12/16/2023 Decrease IV fluids to 75cc/hour, overall + 5.6 liters. 12/17/2023 Making urine. PPI IV, Zosyn IV, WBC improved. +8.6 liters, colostomy working. Saritha resolved. 12/18/2023 Pain controlled, good ostomy output, full liquid diet. Zosyn IV, Stop Vancomycin, Stop Azithromycin. Lasix 20mg IV, + 9 liters. 12/18/2023 KUB, Discontinue ayala catheter. 12/19/2023 Ayala replaced for urinary retention, start Flomax. ST plans MBS, good ostomy output. Stop Zosyn 12/20/2023. 12/20/2023 MBS done, diet restarted. 12/20/2023 Dr. Becerra performed flexible cystoscopy with complicated catheter placement for ayala trauma, gross hematuria. 12/21/[address] ayala for irrigation, recurrent urinary retention. Maintain ayala at discharge. 12/22/2023 Gross hematuria, good ostomy output. Hemoglobin 9.0, monitor. 12/23/2023 Fever 100.4, making urine, swelling bilateral upper extremity, bilateral lower extremity. Colostomy working. SARITHA resolved. 12/24/2023 Admit to TCU with debility, here for rehabilitation, strengthening, prior to discharge home alone. [facility] Medical History (Updated 12/24/23 @ 20:[address] Ravi Conway MD) CKD (chronic kidney disease), stage II Parkinson disease Home Medications amantadine HCl 100 mg capsule 100 mg PO DAILY hill 12/04/23 [History Last Taken 12/24/23 08:15] carbidopa 25 mg-levodopa 100 mg tablet 1.5 tab PO DAILY parkinsons 12/04/23 [History Last Taken 12/24/23 08:15] carbidopa ER 25 mg-levodopa 100 mg tablet,extended release 1 tab PO QHS hill 12/04/23 [History Last Taken 12/23/23 20:55] carbidopa 25 mg-levodopa 100 mg tablet 1 tab PO BID parkinsons 12/13/23 [History Last Taken 12/24/23 11:25] carvedilol 6.25 mg tablet 6.25 mg PO BID Heart #60 tabs 12/24/23 [Rx Last Taken 12/24/23 08:15] food supplemt, lactose-reduced 0.08 gram-1.5 kcal/mL oral liquid (Ensure Plus High Protein) 120 ml PO 4X/DAY nutrition #237 mL 12/24/23 [Rx Last Taken 12/24/23 13:05] pantoprazole 40 mg tablet,delayed release 40 mg PO DAILY stomach acid 2 weeks #14 tabs 12/24/23 [Rx Last Taken 12/24/23 08:15] tamsulosin 0.4 mg capsule 0.4 mg PO DAILY@1730 bladder 30 days #30 caps 12/24/23[Rx Last Taken 12/23/23 05:20] Allergy/AdvReac Type Severity Reaction Status Date / Time No Known Allergies Allergy Verified 12/13/23 11:57 Family History Mother Heart disease Father Heart disease Surgical History (Updated 12/24/23 @ 20:[address] Ravi Conway MD) History of colectomy History of colostomy History of tonsillectomy and adenoidectomy Social History household members: none Smoking Status: Never smoker alcohol intake: never substance use type: does not use ROS Constitutional Constitutional: Reports weakness; Denies chills, fever(s) or weight gain ENT HEENT: Denies headache(s), nasal congestion or nasal discharge Cardiovascular Cardiovascular: Denies chest pain or palpitations Respiratory/Chest Respiratory/Chest: Denies cough, excessive phlegm production or shortness of breath with exertion Gastrointestinal Gastrointestinal: Denies abdominal pain, nausea or vomiting Genitourinary Genitourinary: Denies dysuria Musculoskeletal Musculoskeletal: Denies joint pain or joint swelling Integumentary Integumentary: Denies rash or wounds Neurologic Neurologic: Denies focal weakness, numbness or tingling Psychiatric Psychiatric: Denies anxiety, auditory hallucinations, depression, homicidal ideation or suicidal ideation Vital Signs Vital Signs Vital Signs: 12/24/23 16:16 12/24/23 16:16 Temperature 98.6 F Temperature Source Temporal Pulse Rate 80 80 Pulse Rhythm Regular Pulse Strength Normal (2+) Respiratory Rate 16 16 Respiratory Effort Normal Non-Labored Respiratory Depth Normal Respiratory Pattern Normal Blood Pressure 132/7 H Blood Pressure Mean 48 Blood Pressure Source Monitor Blood Pressure Position Semi-Fowlers Blood Pressure Location Left Arm Pulse Ox 93 Oxygen Delivery Method Room Air Weight Weight: 74.134 kg Body Mass Index (BMI) 23.4 Physical Exam Const alert General Appearance: cooperative HEENT normocephalic Eyes PERRL and EOMs intact bilaterally Neck supple, no JVD and no carotid bruits Resp normal respiratory effort, normal air movement and clear to auscultation bilaterally Cardio regular rate and regular rhythm GI normal to inspection, nondistended, normoactive bowel sounds, non-tender and non-distended GI Narrative: Midline wound clean. Colostomy LLQ. Bladder / Kidney Exam: catheter in place urethral Extremity normal capillary refill General Extremity: Negative for edema Skin no rashes or lesions noted General Skin Exam: no breakdown Psych affect normal Appearance: appropriate Assessment & Plan Assessment/Plan (1) Debility: (2) Bowel obstruction: QUALIFIERS: Intestinal obstruction type: volvulus Qualified Code(s): K56.2 - Volvulus (3) Sigmoid volvulus: (4) Urinary retention: (5) Hematuria: (6) Acute kidney injury: (7) Parkinson disease: PLAN: Plan 78 year old male with Parkinson Disease, hospitalized for bowel obstruction/sigmoid volvulus, underwent partial colectomy/colostomy 12/15/2023, complicated by fever, urinary retention, hematuria, SARITHA, admitted to TCU with debility, here for rehabilitation, strengthening, prior to discharge home alone. * Debility - PT/OT. * Dysphagia - ST. * Pain - Tylenol 1000mg q6 prn pain (1-10). * Bowel - senna/colace 1 tablet bid prn. * Adult immunization - Administer pneumonia vaccine, covid vaccine, flu vaccine as appropriate. * DVT prophylaxis - Hold, hematuria. * Parkinson Disease - Sinemet 25/100mg 1.5 am, 1 tablet bid, Sinemet 50/200mg 1/2 tablet qhs, Amantadine 100mg daily. * Hypertension - Coreg 6.25mg bidcm. * Nutrition - Ensure 120ml 4x/day. * GERD - Pantoprazole 40mg daily. * BPH/urinary retention - Tamsulosin 0.4mg daily, indwelling ayala catheter. 12/24/23 2018 <Electronically signed by Ravi Conway MD> Cosigner Signature (if applicable): CC: Dr. Sarika Montaño MD; Dr. Ravi Conway MD~ Signed ADDENDUM by Dr. Ravi Conway MD on 01/07/24 at 0736 Addendum UTI - UA c/w UTI, Urine culture pending, Cipro 250mg bid x 7 days. 01/07/24 0736<Electronically signed by Ravi Conway MD> Cosigner Signature (if applicable): cc: Dr. Sarika Montaño MD; Dr. Ravi Conway MD ~* Signed ADDENDUM by Dr. Ravi Conway MD on 01/17/24 at 1316 Addendum Rash - lower back, rx HC 2.5% cream topical tid prn. 01/17/24 1316<Electronically signed by Ravi Conway MD> Cosigner Signature (if applicable): cc: Dr. Sarika Montaño MD; Dr. Ravi Conway MD ~* Signed [facility] Work Phone: [phone] Progress note Author Surjit Kirkland [facility] January 13, 2024 4:37pm Note Date/Time January 13, 2024 4:3 7pm [facility] Medical Records Department [address] [place] [address] Progress Note 01/13/24 1635 MR#: [id number] Acct: [id number] Name: MAYNOR VIDES [facility] Rep #:[id number] : 1945 78 From: Surjit العراقي PCP: Dr. Sarika Montaño MD Status:ADM IN Location: [facility]11-21 Progress Note Patient seen and examined briefly during his physical therapy session. He is sitting in a chair about to start an exercise when we approach. He reports thathe is doing better and gaining strength. His abdomen is examined and his colostomy appliance is intact with thin brown stool in the appliance. Medially his seroma wound is now a small crater and very superficial. There is serosanguineous drainage in its base. Based on the above report and exam I recommend simply covering the seroma wound medial to patient's ostomy appliance and foregoing further packing at this time. Ideally this would follow showering or an opportunity for Mr. Vides to clean this area. Will continue to follow but understand patient discharge planning isongoing. 01/13/241636 <Electronically signed by Surjit Kirkland MD> Surjit Kirkland MD Cosigner Signature (if applicable): CC: ~ Signed [facility] Work Phone: [phone] Progress note Author Karin Dorantes [facility] January 06, 2024 11:52am Note Date/Time January 06, 2024 11: 49am [facility] Medical Records Department [address] [place] [address] Progress Note - Surgery 01/06/24 1141 MR#: [id number] Acct: [id number] Name: MAYNOR VIDES [facility] Rep #:[id number] : 1945 78 From: Karin DELEON PA-C PCP: Dr. Sarika Montaño MD Status:ADM IN Location: [facility]11-21 Subjective Subjective Patient was evaluated resting comfortably in the chair. Dr. Kirkland was contacted following a new finding at the patient's incision of a bullous lesion. Patient denies any new complaints or concerns. Objective Data Objective Data Vital Signs: Vital Signs Temp Pulse Resp BP Pulse Ox O2 Del Method 98.5 F 74 18 130/77 H 97 Room Air 01/06/24 08:55 01/06/24 08:55 01/06/24 08:55 01/06/24 08:55 01/06/24 08:55 01/06/24 08:55 Oxygen Delivery Method Room Air Weight: 139 lb 4.8 oz Body Mass Index (BMI) 20.0 Intake & Output: Intake and Output for Last 24 Hours 01/04/24 01/05/24 01/06/24 23:59 23:59 23:59 Intake Total 1130 / 1130 1130 / 1130 360 / 360 Output Total 1750 / 1750 1370 / 1370 200 / 200 Balance -620 / -620 -240 / -240 160 / 160 Lab / Micro Data 01/05/24 07:14 01/01/24 05:19 Physical Exam GI GI Narrative: Abdomen- soft, nontender. Bullous lesion noted at the mid point of the midline incision. Colostomy flange was folded back to further expose the lesions, which appeared to be a seroma. Qtip was used to puncture the lesions and expose serosanguineous fluid. Area did see, to have much depth. The area did tunnel superior slightly which was further opened with the Qtip without any concerns. Open wound was packed with plain 1/2 packing and covered with gauze and paper tape. The flange was also secured with single piece of tape to hold it out of the way of the wound. Patient tolerated this procedure well. Assessment & Plan Assessment/Plan (1) Postoperative seroma: QUALIFIERS: Surgical complication system/body Area: skin Procedure type: non-dermatologic Qualified Code(s): L76.34 - Postprocedural seroma of skin and subcutaneous tissue following other procedure PLAN: I have evaluated this patient in conjunction with Dr. Kirkland. Recommend changing the packing daily as well as the dressing daily unless the dressing is saturated then change more frequently We will follow-up with him on Saturday Charges/Coding Visit Charges Inpatient E&M: 74481 Subs Hosp L1 (no charge; post-op) 01/06/24 1152 <Electronically signed by Karin DELEON PA-C> Cosigner Signature (if applicable): CC: ~ Signed [facility] Work Phone: 1(140) 303-430903-13-2024 Procedure [facility] 12-30-2023 Progress note Author Surijt Kirkland [facility] December 30, 2023 1:59pm Note Date/Time December 30, 2023 1:5 9pm [facility] Medical Records Department [address] [place] [address] Progress Note - Surgery 12/30/23 1345 MR#: [id number] Acct: [id number] Name: MAYNOR VIDES III Rep #:[id number] : 1945 78 From: Surjit العراقي PCP: Dr. Sarika Montaño MD Status:ADM IN Location: [place] [address] Subjective Subjective Patient seen and examined during AM rounds. He is found resting on the bed in the chair. He states that he is making slow progress with therapy but shares that he is regaining strength. He is eating well and denies any issues from a GI perspective. He reports that his daughter is beginning to learn ostomy care. Objective Data Objective Data Vital Signs: Vital Signs Temp Pulse Resp BP Pulse Ox O2 Del Method 97.1 F L 62 16 99/55 L 99 Room Air 12/30/23 12:14 12/30/23 12:14 12/30/23 12:14 12/30/23 12:14 12/30/23 12:14 12/30/23 12:14 Oxygen Delivery Method Room Air Weight: 163 lb 7 oz Body Mass Index (BMI) 23.4 Intake & Output: Intake and Output for Last 24 Hours 12/28/23 12/29/23 12/30/23 22:59 23:59 23:59 Intake Total 600 / 600 Output Total 1250 / 1250 Balance -650 / -650 Lab / Micro Data 12/30/23 05:16 12/25/23 05:09 Labs: Laboratory Results - last 24 hr 12/30/23 05:16: Hgb 10.0 L, Hct 30.7 L Physical Exam Const oriented x3 and no apparent distress Constitutional Narrative: Patient with automatisms and twitching of his face GI GI Narrative: Ostomy appliance with today's date containing pasty brown stool, laparotomy incision remains approximated with skin caitlyn and is mildly reddened. There is some crusted drainage in the interstices of the caitlyn, however, the incision remains well-approximated. Assessment & Plan Assessment/Plan (1) Sigmoid volvulus: PLAN: Patient is moving a postoperative day 15 from ex lap with small bowel resection, segmental colectomy, and creation of end colostomy. He is doing welland slowly regaining strength. He denies any issues from a GI perspective. On exam, he is well-healing and his skin caitlyn were removed. There is no drainage so no dressing was replaced. I have encouraged patient to shower as heis able to remove some of the old crusted drainage that remains adherent to patient's wound. Continue rehab efforts. Patient is also waiting follow-up with urology for catheter removal. Charges/Coding Visit Charges Inpatient E&M: 82089 SNF Subs L1 12/30/23 9978 <Electronically signed by Surjit Kirkland MD> Cosigner Signature (if applicable): CC: ~ Signed [facility] Work Phone: 1(322) 657-524203-07-2024 Progress note Author Lamar Broussard [facility] December 26, 2023 4:17pm Note Date/Time December 26, 2023 4:[address] [facility] Medical Records Department [address] [place] [address] Progress Note - Pharmacy 12/26/23 1553 MR#: [id number] Acct: [id number] Name: MAYNOR VIDES III Rep #:[id number] : 1945 78 From: Lamar Broussard PCP: Dr. Sarika Montaño MD Status:ADM IN Location: TCU [facility]1 TCU RX Drug Regimen Review Subjective/Objective Subjective/Objective: Subjective: 78 YOM admitted to TCU s/p hospitalization at [facility] for a bowel obstruction which resulted in an exploratory laparotomy with repair and colostomy placement. Hospitalization also complicated by urinary retention with Ayala placement. Admitted to TCU 12/24/23 for strengthening and rehabilitation prior to discharge home where he resides alone. Objective: Allergies No Known Allergies Allergy (Verified 12/13/23 11:57) Current Medications Generic Name Dose Route Start Last Admin Trade Name Jenifer PRN Reason Stop Dose Admin Acetaminophen 1,000 mg 12/24/23 20:18 Acetaminophen 500 Mg Tablet PO Q6H PRN PRN Pain Score 1-10 Amantadine HCl 100 mg 12/25/23 12:00 12/26/23 08:22 Amantadine 100 Mg Capsule PO 100 mg DAILY GAURI Administration Carbidopa/Levodopa 0.5 tablet 12/24/23 22:00 12/25/23 21:41 Carbidopa/Levodopa Cr 50/200 Tablet PO 0.5 tablet QHS GAURI Administration Carbidopa/Levodopa 1.5 tablet 12/25/23 09:30 12/26/23 08:22 Carbidopa/Levodopa 25/100 Tablet PO 1.5 tablet 0800 GAURI Administration Carbidopa/Levodopa 1 tablet 12/25/23 11:00 12/26/23 11:48 Carbidopa/Levodopa 25/100 Tablet PO 1 tablet BID@1100,1600 GAURI Administration Carvedilol 6.25 mg 12/24/23 22:00 12/26/23 08:22 Carvedilol 6.25 Mg Tablet PO 6.25 mg BIDCM GAURI Administration Protocol Nutritional Formula (Lactose Free) 120 ml 12/24/23 17:00 12/26/23 12:49 Ensure Plus High Protein 120 Ml Liquid PO 120 ml 4X/DAY GAURI Administration Pantoprazole Sodium 40 mg 12/25/23 10:00 12/26/23 08:21 Pantoprazole Sodium 40 Mg Tablet PO 40 mg DAILY GAURI Administration Senna/Docusate Sodium 1 tablet 12/24/23 20:18 Senna/Docusate Sodium 1 Tablet PO BID PRN Constipation Sodium Chloride 10 - 40 ml 12/26/23 08:29 0.9% Saline Lock 10 Ml Syringe IV UD PRN SALINE FLUSH Tamsulosin HCl 0.4 mg 12/24/23 17:30 12/25/23 18:02 Tamsulosin Hcl 0.4 Mg Capsule PO 0.4 mg DAILY@1730 GAURI Administration Tuberculin PPD 0.1 ml 01/01/24 10:00 Tuberculin,Purif.Prot.Deriv. 50 Tu/Ml Vial ID 01/01/24 10:01 X1 ONE Problem List (Updated 12/24/23 @ 20:[address] Ravi Conway MD) Parkinson disease (Acute) Acute kidney injury (Acute) Urinary retention (Acute) Debility (Acute) Hematuria (Acute) Bowel obstruction (Acute) Sigmoid volvulus (Acute) Vital Signs Temp Pulse Resp BP Pulse Ox O2 Del Method 97.8 F 77 16 137/90 H 98 Room Air 12/25/23 15:17 12/26/23 08:20 12/26/23 08:20 12/26/23 08:20 12/26/23 08:20 12/26/23 08:20 Oxygen Delivery Method Room Air Weight: 74.134 kg Body Mass Index (BMI) 23.4 Sodium 137 mmol/L (136-145) 12/25/23 05:09 Potassium 4.4 mmol/L (3.5-5.1) 12/25/23 05:09 Chloride 103 mmol/L (98-107) 12/25/23 05:09 Carbon Dioxide 29.0 mmol/L (21.0-32.0) 12/25/23 05:09 Anion Gap 5 (5-15) 12/25/23 05:09 BUN 12 mg/dL (7-18) 12/25/23 05:09 Creatinine 0.84 mg/dL (0.70-1.30) 12/25/23 05:09 Est GFR (MDRD) Af Amer 115 mL/min (>60) 12/25/23 05:09 Est GFR (MDRD) Non-Af 95 mL/min (>60) 12/25/23 05:09 BUN/Creatinine Ratio 14.4 RATIO (10-20) 12/25/23 05:09 Glucose 114 mg/dL (74-106) H 12/25/23 05:09 Assessment/Plan: 1. Pain: Tylenol 1000mg PO Q6h PRN Pain 1-10. Please continue to monitor for increased/decreased S/S pain, PRN medication usage. - To date, the patient has not required any PRN doses of medication. Pain appears managed at this time. 2. Parkinson Disease: Sinemet 25/100mg 1.5 tab QAM, 1 tab PO 1100 and 1600, Sinemet 50/200mg 1/2 tab PO QHS, Amantadine 100mg PO Daily. Please continue to monitor for dizziness, insomnia, nausea, dyskinesia, swelling, constipation. 3. HTN: Coreg 6.25mg PO BID. Please continue to monitor BP (last 137/90), pulse (last 77 BPM). 4. BPH/Urinary retention: Flomax 0.4mg PO Daily. Please continue to monitor for hematuria, blood pressure, urinary retention. 5. GERD: Protonix 40mg PO Daily. Please continue to monitor for nausea, headache, abdominal pain. Please also encourage non-pharmacologic therapy to help minimize GERD flare-ups, as well. 6. Bowel: Senna/Docusate 1 tab PO BID PRN. Please continue to monitor for increased/decreased constipation and/or diarrhea. -The patient has had 1 bowel movement (on 12/25/23) since admission and required zero doses of PRN medication. Assessment/Plan for indications treated with psychotropic medications: - The patient is not currently on any psychotropic medications at time of discharge medication review. Medical chart and medication regimen reviewed. The following medication irregularities or issues were identified: - No medication issues were identified at time of medication list review. Date Date of Note:: 12/26/23 12/26/23 1617 <Electronically signed by Lamar Broussard> Lamar Broussard Cosigner Signature (if applicable): CC: ~ Signed [facility] Work Phone: [phone]) [phone] Progress note Author Surjit Kirkland [facility] December 24, 2023 12:02pm Note Date/Time December 24, 2023 8:[address] [facility] Medical Records Department [address] [place] [address] Progress Note - Surgery 12/24/23 0801 MR#: [id number] Acct: [id number] Name: MAYNOR VIDES III Rep #:[id number] : 1945 78 From: Surjit العراقي PCP: Dr. Sarika Montaño MD Status:ADM IN Location: [facility] [place] KK225-6 Subjective Subjective Patient seen and examined during AM rounds. He is found resting in bed. He states that he is experiencing better sleep and this is translated and then intomore energy during the daytime. He is without complaint this morning and is happy to report that his bloody urine cleared over the last 24 hours. Objective Data Objective Data Vital Signs: Vital Signs Temp Pulse Resp BP Pulse Ox O2 Del Method O2 Flow Rate 97.8 F 65 15 132/73 H 94 Room Air 2 12/24/23 02:19 12/24/23 02:19 12/24/23 04:00 12/24/23 02:19 12/24/23 04:00 12/24/23 04:00 12/16/23 05:00 FiO2 95 12/16/23 11:30 Oxygen Flow Rate (L/min) 2 Oxygen Delivery Method Room Air Weight: 172 lb 6.424 oz Body Mass Index (BMI) 24.7 Intake & Output: Intake and Output for Last 24 Hours 12/22/23 12/23/23 12/24/23 23:59 23:59 23:59 Intake Total 120 / 120 200 / 200 Output Total 1250 / 1250 2250 / 2250 600 / 600 Balance -1130 / -1130 -2250 / -2250 -400 / -400 Lab / Micro Data 12/23/23 06:01 12/23/23 06:01 Labs: Laboratory Results - last 24 hr 12/24/23 06:41: Lactate Dehydrogenase 188 Micro: Microbiology 12/14/23 11:50 Blood Culture (Wb) - Right Forearm Blood Culture - Final No growth in 5 days. 12/14/23 11:30 Blood Culture (Wb) - Anticubital Right Blood Culture - Final No growth in 5 days. 12/14/23 13:52 Urine Catheter - Catheter Urine Culture - Final Culture exhibits no growth. Physical Exam Const oriented x3 and no apparent distress Resp normal respiratory effort GI GI Narrative: Nondistended, laparotomy incision remains approximated with skin caitlyn. Thereis no quentin-incisional erythema and the wound edges remain well apposed. Patient's colostomy appears recently changed with a new ostomy appliance and there is thick brown stool coming out of the stoma. Patient denies any tenderness with palpation of the abdominal wall. Assessment & Plan Assessment/Plan (1) Sigmoid volvulus: PLAN: Patient is postoperative day 9 from exploratory laparotomy with small bowel resection as well as segmental colectomy (sigmoid) with creation of end colostomy. He is doing well this morning. He is tolerating his diet with regular colostomy output. His abdominal exam is benign. He is still several days from us being able to take his skin caitlyn out. On the urologic front hishematuria appears to have cleared. Urology consultation was made last week and they are requesting outpatient follow-up for Ayala removal. Based on patient's clinical improvements I believe he is fit for transfer to the transitional care unit today to continue his recovery. I will continue to see him in that location. This impression was discussed with the hospitalist service and they are in agreement. Charges/Coding Visit Charges Inpatient E&M: 84687 Subs Hosp L2 12/24/23 1202 <Electronically signed by Surjit Kirkland MD> Cosigner Signature (if applicable): CC: ~ Signed [facility] Work Phone: [phone]) [phone] Discharge summary Author Surjit Kirkland [facility] December 24, 2023 3:15pm Note Date/Time December 24, 2023 11:5 7am [facility] Medical Records Department [address] [place] [address] Transfer to [facility] Care MR#: [id number] Acct: [id number] Name: MAYNOR VIDES III Rep #:[id number] : 1945 78 From: Surjit العراقي PCP: Dr. Sarika Montaño MD Status:ADM IN Certification of patient admission REQUIRED AT TIME OF ADMISSION. I CERTIFY THAT POST-HOSPITAL ECF SERVICES ARE REQUIRED TO BE GIVEN ON AN IN-PATIENT BASIS BECAUSE OF THE ABOVE NAMED PATIENT'S NEED FOR HALF-WAY CARE ON A CONTINUING BASIS FOR THE CONDITION(S) FOR WHICH HE/SHE WAS RECEIVING IN-PATIENT HOSPITAL SERVICES PRIOR TO HIS/HER TRANSFER TO THE ECF. 12/24/23 1515<Electronically signed by Surjit Kirkland MD> Diet Diet Order/Speech Therapy: 12/22/23 07:50 Diet: Regular - General Is pt able to select menu?: Yes Diet Comments: Direct sup/assist, Chin tuck &effortful swallow w/ sips, no carbonation Routine Orders/Code Status Ayala Catheter Size: 20 Change Ayala Catheter: Consult with Urology- placed by them 12/19 O2 Frequency: PRN Wound(s) mid abd: Wound Type: Surgical Incision (laparotomy incision and LLQ colostomy) Therapies Physical Therapy: Eval and Treat Occupational Therapy: Eval and Treat Speech Therapy: Eval and Treat Problem/Diagnosis (1) Sigmoid volvulus: Status: Acute Code(s): K56.2 - Volvulus Plan: Patient is postoperative day 9 from exploratory laparotomy with small bowel resection as well as segmental colectomy (sigmoid) with creation of end colostomy. He is doing well this morning. He is tolerating his diet with regular colostomy output. His abdominal exam is benign. He is still several days from us being able to take his skin caitlyn out. On the urologic front hishematuria appears to have cleared. Urology consultation was made last week and they are requesting outpatient follow-up for Ayala removal. Based on patient's clinical improvements I believe he is fit for transfer to the transitional care unit today to continue his recovery. I will continue to see him in that location. This impression was discussed with the hospitalist service and they are in agreement. Allergies/Procedures Done in Hospital Allergies No Known Allergies Allergy (Verified 12/13/23 11:57) Procedures: - (Bedside cystoscopy with ayala placement 12/19) Type of Care/Length of Stay Estimated LOS: Convalescent Care Less Than 30 days Type of Care Needed: Skilled Rehab Potential: Good Prognosis: Good Additional Orders/Day of Discharge Day of Discharge: 12/24/23 Dietary and Speech Recommendations Dietitian Recommendations/Changes: Continue liberal regular diet - no carbonation Continue 120mL EPHP 4x daily with medpass for supplemental energy Follow Up Care Please Follow Up With: Garth Becerra MD When: 7-10 days Discharge Plan Admission Admit Date/Time: 12/13/23 16:11 Primary Reason for Your Visit: Sigmoid colon volvulus Attending Provider: Surjit Kirkland Primary Care Provider: Sarika Montaño Consulting Providers: Pito Nickerson; Missy Phelan; Noman Chen; Eric Billingsley; Garth Becerra Discharge Orders/Prescriptions Prescriptions: New tamsulosin 0.4 mg Capsule 0.4 mg PO DAILY@1730 30 Days Qty: 30 0RF pantoprazole 40 mg Tablet,Delayed Release (Dr/Ec) 40 mg PO DAILY 14 Days Qty: 14 0RF Ensure Plus High Protein 0.08 gram-1.5 kcal/mL Liquid 120 ml PO 4X/DAY Qty: 237 0RF carvedilol 6.25 mg Tablet 6.25 mg PO BID Qty: 60 0RF Continued carbidopa-levodopa 25-100 mg tablet 1.5 tab PO DAILY Patient Comments: take 1.5 tablets between 8 and 9 AM carbidopa-levodopa 25-100 mg tablet extended release 1 tab PO QHS Patient Comments: takes at 11 PM before bed amantadine HCl 100 mg capsule 100 mg PO DAILY Patient Comments: takes 1 tablet at noon carbidopa-levodopa 25-100 mg tablet 1 tab PO BID Patient Comments: takes 1 tablet at noon and 1 tablet in the evening Referrals / Follow Up: Sarika Montaño MD [Primary Care Provider] - Disposition Disposition (needs filled in before D/C Order can be placed): Snf Facility 12/24/23 1515 <Electronically signed by Surjit Kirkland MD> Cosigner Signature (if applicable): CC: Dr. Sarika Montaño MD; Dr. Garth Becerra MD; Dr. Missy Phelan DO; Dr.Nicholas Camilo Billingsley MD; Dr. Pito Nickerson MD; Noman Chen DO ~ [facility] Work Phone: [phone]) 334-477303-04-2024 Progress note Author Pitojayson Nickerson [facility] December 23, 2023 5:07pm Note Date/Time December 23, 2023 5:07 pm [facility] Medical Records Department [address] [place] [address] Progress Note - Hospitalist 12/23/23 1700 MR#: [id number] Acct: [id number] Name: MAYNOR VIDES DANDRE Rep #:[id number] : 1945 78 From: Pito العراقي PCP: Dr. Sarika Montaño MD Status:ADM IN Location: [place] [address] Reason for Visit Reason for Visit: Diagnoses Elevated white blood cell count, unspecified (12/13/23) Volvulus (12/13/23) Nausea with vomiting, unspecified (12/13/23) Hematuria, unspecified (12/13/23) Fever, unspecified (12/13/23) Edema, unspecified (12/13/23) Objective Data Objective Data Vital Signs: Vital Signs Temp Pulse Resp BP Pulse Ox O2 Del Method O2 Flow Rate 97.6 F L 64 16 105/62 97 Room Air 2 12/23/23 14:00 12/23/23 14:00 12/23/23 14:00 12/23/23 14:00 12/23/23 14:00 12/23/23 14:00 12/16/23 05:00 FiO2 95 12/16/23 11:30 Oxygen Flow Rate (L/min) 2 Oxygen Delivery Method Room Air Weight: 166 lb 8 oz Body Mass Index (BMI) 23.8 Intake & Output: Intake and Output for Last 24 Hours 12/21/23 12/22/23 12/23/23 23:59 23:59 23:59 Intake Total 1510 / 1510 120 / 120 Output Total 1775 / 1775 1250 / 1250 400 / 400 Balance -265 / -265 -1130 / -1130 -400 / -400 Lab / Micro Data 12/23/23 06:01 12/23/23 06:01 Labs: Laboratory Results - last 24 hr 12/23/23 06:01: WBC 8.0, RBC 2.66 L, Hgb 8.3 L, Hct 25.1 L, MCV 94.4 H, MCH 31.2, MCHC 33.1, RDW Std Deviation 50.6 H, RDW Coeff of Ann 14.8 H, Plt Count 287, MPV 10.3, Immature Gran % (Auto) 2.300 H, Neut % (Auto) 77.7 H, Lymph % (Auto) 12.8 L, [place] % (Auto) 5.5, Eos % (Auto) 1.1, Baso % (Auto) 0.6, Absolute Neuts (auto) 6.2, Absolute Lymphs (auto) 1.02, Nucleated RBC % 0, Sodium 135 L, Potassium 3.9, Chloride 106, Carbon Dioxide 27.0, Anion Gap 2 L, BUN 12, Creatinine 0.75, Estim Creat Clear Calc 79.84, Est GFR (MDRD) Af Amer 130, Est GFR (MDRD) Non-Af 108, BUN/Creatinine Ratio 16.1, Glucose 98, Calcium 7.8 L Micro: Microbiology 12/14/23 11:50 Blood Culture (Wb) - Right Forearm Blood Culture - Final No growth in 5 days. 12/14/23 11:30 Blood Culture (Wb) - Anticubital Right Blood Culture - Final No growth in 5 days. 12/14/23 13:52 Urine Catheter - Catheter Urine Culture - Final Culture exhibits no growth. Physical Exam Narrative Seen and examined Low-grade fever. Tmax 100.4 Fahrenheit but currently afebrile. Patient making urine. Positive fluid balance. Patient has swelling in the legs and upper extremities. Abdominal distention better. Colostomy functioning with liquid feces. residential monitor shows sinus rhythm with occasional PVCs. Physical exam: General: Alert, Oriented x3, Cooperative but fatigued and weak HEENT: Atraumatic, PERRLA, EOMI, Normocephalic Oral: Oral mucosa moist. Neck: Supple, No JVD, Negative Carotid Bruits Chest wall/Lungs: Shallow breathing. Air entry diminished in bilateral lung bases. No crepitation/rhonchi Cardiovascular: Sinus rhythm, normal S1, Normal S2, No M/G/R. Abdomen:Soft, postop mild distention and tenderness surgical dressing dry. Bowel sounds sluggish. Colostomy functioning with liquid yellowish feces : Oliguria resolved. Ayala catheter. Slight yellowish urine. No dysuria. Norenal angle tenderness. No suprapubic tenderness. Extremities: Bilateral lower and upper extremity edema, Capillary Refill Less than 3 Seconds Skin: No rashes, No breakdown Musculoskeletal: No Tenderness to Palpation of Joints or Extremities. Moderate muscle rigidity at knee and hip joints. History of Parkinson disease Neurological: Cranial nerves II-XII grossly intact, DTR 2+/4. No acute focal neurological deficit. Psych/Mental Status: Flat affect. Assessment & Plan Assessment/Plan (1) Leukocytosis: (2) Nausea & vomiting: (3) Bowel obstruction: QUALIFIERS: Intestinal obstruction type: volvulus Qualified Code(s): K56.2 - Volvulus (4) Sigmoid volvulus: (5) Edema: PLAN: Plan The patient is a 78 y/o M was admitted with sudden onset of Was admitted with sudden onset abdominal pain periumbilical and hypogastric in location, nausea vomiting, dark in color started 10 PM day before admission. No fever. Patient denies any prior history of bowel obstruction or abdominal pain like this. #1. Sigmoid volvulus, complicated with total colon distention, ileus and lacticacidosis with suspected colonic infection/colitis: Patient admitted under surgical service to the ICU after colonoscopy. Abdomen pelvis/CT was done priorto that. Shows mild distention of colon down to the region of sigmoid colon, upto 10 cm. Patient reported some passage of flatus. Has a rectal tube and NG tube. IV fluid 500 mL Ringer lactate ordered as patient did not had significanturine output. Heart rate and blood pressure are controlled. No fever. Discussed with the surgeon and plan to maintain on his current conservative measures to avoid total colectomy with high risk of surgery. Patient on IV PPI. Patient on IV Zosyn. Mild improvement in leukocytosis. Platelet count 214,000. Patient had colonoscopy on 12/13/2023. Sigmoid volvulus was found though colon prep was poor. Diverticulosis in RS colon and sigmoid colon. Partial decompression of volvulus achieved. No repeat colonoscopy recommended. 3/4: Colostomy is working good. Patient has good bowel sounds. 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 Massively dilated sigmoid colon transitioning to decompressed/deeply adhered distal sigmoid colon within the pelvis #2. SARITHA on Chronic Kidney Disease Stage II : Most likely prerenal due to sigmoid volvulus/ileus and third space: Ayala catheterization. Strict intake and output. Admission BUN/creatinine 29/1.33, today BUN/creatinine 30/1.11 BUN/creatinine ratio is 27. UA shows positive nitrite, ketones 5, bilirubin 1 LE 25 WBC 0-5 cells, bacteria 0. Patient on IV antibiotics. Urine culture shows no growth. 4: SARITHA is resolved on 12/17. Electrolytes in acceptable limit. Serum sodium 135. 3.. Recurrent urine retention patient had urine retention, Ayala removed on and was replaced overnight due to urinary retention greater than 250 mL on bladder scan. It was removed again on 12/20/2023 after Flomax initiated and then recurrent urinary retention Ayala was inserted. Patient developed lower abdominal pain and hematuria. Urologist consulted and placed Ayala catheter. Since patient has a false passage. Discharged on Ayala catheter with outpatienturologist follow-up. 4.Acute anemia on chronic anemia: Hemoglobin dropped to 8.3 from baseline 10.1 g. Platelet count 287,000. 5 5. Mild hyperbilirubinemia with normal transaminases, hyperbilirubinemia: Probably due to acute event of sigmoid volvulus ileus and possible secondary colon infection. Admission glucose 179. A1c 5.5 probably stress response hyperglycemia. Diabetes mellitus or prediabetes ruled out. 12/16: Last liver chemistry shows total bili 1.8. Direct 0.53. Will repeat tomorrow. 6. Parkinson's disease: hold oral medications in view of ileus with impaired bowel absorption Patient has moderate to severe oropharyngeal dysphagia probably due to Parkinsondisease. Patient on diet bite-size with thin liquid with compensation strategies. Being followed by speech therapist. 7. DVT Prophylaxis: Recommend at least SCDs, chemoprophylaxis per Surgery discretion. CODE status: Patient BRIA is his daughter who is present and living will is currently in place. Discussed CODE status at length including difference betweenFULL code, DNR-CCA and DNR-CC status. Following discussions about the differences in these status, requested Full Code status. Advanced Care Charges/Coding Visit Charges Inpatient E&M: 59641 Subs Hosp L2 12/23/23 170 <Electronically signed by Pito Nickerson MD> Cosigner Signature (if applicable): CC: ~ Signed [facility] Work Phone: 1(952) 768-827103-03-2024 Progress note Author Missy Phelan [facility] December 22, 2023 3:04pm Note Date/Time December 22, 2023 3:[address] [facility] Medical Records Department [address] [place] [address] Progress Note - Hospitalist 12/22/23 1459 MR#: [id number] Acct: [id number] Name: MAYNOR VIDES DANDRE Rep #:[id number] : 1945 78 From: Missy Phelan DO PCP: Dr. Sarika Montaño MD Status:ADM IN Location: [place] 434443-1 Reason for Visit Reason for Visit: Abdominal pain, nausea, vomiting Subjective Subjective No significant issues overnight. Continues to have fairly gross hematuria without any signs of resolution. Hemoglobin has dropped another gram and a halfwith repeat pending ordered by general surgery. Patient has no complaints at this time. Ostomy output remains excellent. Objective Data Objective Data Vital Signs: Vital Signs Temp Pulse Resp BP Pulse Ox O2 Del Method O2 Flow Rate 97.8 F 67 18 91/52 L 98 Room Air 2 12/22/23 14:55 12/22/23 14:55 12/22/23 14:55 12/22/23 14:55 12/22/23 14:55 12/22/23 14:55 12/16/23 05:00 FiO2 95 12/16/23 11:30 Oxygen Flow Rate (L/min) 2 Oxygen Delivery Method Room Air Weight: 78.3 kg Body Mass Index (BMI) 24.7 Intake & Output: Intake and Output for Last 24 Hours 12/20/23 12/21/23 12/22/23 23:59 23:59 23:59 Intake Total 840 / 1140 1510 / 1510 120 / 120 Output Total 1750 / 2075 1775 / 1775 1050 / 1050 Balance -910 / -935 -265 / -265 -930 / -930 Lab / Micro Data 12/22/23 13:50 12/22/23 07:25 Labs: Laboratory Results - last 24 hr 12/22/23 07:25: WBC 8.5, RBC 2.69 L, Hgb 8.6 L, Hct 25.3 L, MCV 94.1 H, MCH 32.0, MCHC 34.0, RDW Std Deviation 50.3 H, RDW Coeff of Ann 14.8 H, Plt Count 276, MPV 10.4, Immature Gran % (Auto) 2.500 H, Neut % (Auto) 80.4 H, Lymph % (Auto) 9.8 L, [place] % (Auto) 5.4, Eos % (Auto) 1.1, Baso % (Auto) 0.8, Absolute Neuts (auto) 6.8, Absolute Lymphs (auto) 0.83, Nucleated RBC % 0, Sodium 138, Potassium 3.7, Chloride 107, Carbon Dioxide 28.0, Anion Gap 3 L, BUN 17, Creatinine 0.78, Estim Creat Clear Calc 79.84, Est GFR (MDRD) Af Amer 125, Est GFR (MDRD) Non-Af 103, BUN/Creatinine Ratio 21.9 H, Glucose 101, Calcium 7.7 L 12/22/23 13:50: Hgb 9.0 L, Hct 27.1 L Micro: Microbiology 12/14/23 11:50 Blood Culture (Wb) - Right Forearm Blood Culture - Final No growth in 5 days. 12/14/23 11:30 Blood Culture (Wb) - Anticubital Right Blood Culture - Final No growth in 5 days. 12/14/23 13:52 Urine Catheter - Catheter Urine Culture - Final Culture exhibits no growth. Physical Exam Const alert, oriented x3 and no apparent distress Constitutional Narrative: Elderly, white male, sitting up at the bedside, appears comfortable and nontoxic, looks as good as I seen him throughout his hospital stay, nursing at bedside General Appearance: cooperative HEENT normocephalic, head/scalp atraumatic and moist oral mucous membranes HEENT Narrative: Mallampati 2 Narrative: Ayala in place with gross bloody hematuria Extremity Extremity Narrative: Trace bilateral lower extremity edema, no cyanosis or clubbing Psych affect normal Psych Narrative: Very pleasant, interacts appropriately Assessment & Plan Assessment/Plan (1) Leukocytosis: (2) Nausea & vomiting: (3) Bowel obstruction: QUALIFIERS: Intestinal obstruction type: volvulus Qualified Code(s): K56.2 - Volvulus (4) Sigmoid volvulus: (5) Edema: PLAN: Plan Sigmoid volvulus -Postop day 6 for exploratory laparotomy with small bowel resection and sigmoid colectomy with creation of end colostomy. -On a regular diet now with compensatory strategies for dysphagia -Continue dietary supplements with Ensure -Antibiotics discontinued yesterday -Management per primary service Dysphagia -Passed for oral diet with speech therapy -They did identify moderate to severe oropharyngeal dysphagia which is likely related to his baseline Parkinson's and acute debility due to current illness -Diet recommendations are for bite-size and thin liquids with compensation strategies -Continue ongoing speech therapy after discharge to TCU Urinary retention -Ayala removed 12/19/2023 however had to be replaced overnight due to urinary retention with greater than 250 on bladder scan and then removed again on 12/20/2023 after Flomax had been initiated however patient had recurrent urinary retention and Ayala was placed--> then developed lower abdominal pain with hematuria--> urology consulted and placed Ayala catheter--> patient had false passage -Continue Flomax -Plan on maintaining Ayala at discharge with outpatient urology follow-up Anemia -Down down 2-1/2 g since hematuria developed -Repeat CBC is starting to show some stability -Plan is to monitor this and once stable transition to TCU for ongoing rehab after discharge SARITHA on CKD stage II -SARITHA is resolved and serum creatinine is at baseline -Continue to monitor as needed Mild hyperbilirubinemia -Suspect related to acute illness -Bilirubin had trended down Parkinson's disease -Continue Sinemet -Continue amantadine DVT prophylaxis -SCDs -Chemoprophylaxis per general surgery CODE STATUS -Full code is verified on admission Charges/Coding Visit Charges Inpatient E&M: 32640 Subs Hosp L1 12/22/23 1504 <Electronically signed by Missy Phelan DO> Cosigner Signature (if applicable): CC: ~ Signed [facility] Work Phone: 1(967) 477-689303-03-2024 Progress note Author Kristian Giles [facility] December 22, 2023 8:53am Note Date/Time December 22, 2023 8:[address] [facility] Medical Records Department [address] [place] [address] Progress Note - Surgery 12/22/23 0852 MR#: [id number] Acct: [id number] Name: MAYNOR VIDES III Rep #:[id number] : 1945 78 From: Kristian carl MD PCP: Dr. Sarika Montaño MD Status:ADM IN Location: [place] 434443-1 Subjective Subjective Patient does not have any complaints except for spasming around the Ayala catheter. He is requesting regular diet instead of transitional. Objective Data Objective Data Vital Signs: Vital Signs Temp Pulse Resp BP Pulse Ox O2 Del Method O2 Flow Rate 100.0 F H 73 16 103/63 93 Room Air 2 12/22/23 07:43 12/22/23 07:43 12/22/23 07:43 12/22/23 07:43 12/22/23 07:43 12/22/23 07:43 12/16/23 05:00 FiO2 95 12/16/23 11:30 Oxygen Flow Rate (L/min) 2 Oxygen Delivery Method Room Air Weight: 172 lb 9.951 oz Body Mass Index (BMI) 24.7 Intake & Output: Intake and Output for Last 24 Hours 12/20/23 12/21/23 12/22/23 23:59 23:59 23:59 Intake Total 840 / 1140 1510 / 1510 120 / 120 Output Total 1750 / 2075 1775 / 1775 300 / 300 Balance -910 / -935 -265 / -265 -180 / -180 Lab / Micro Data 12/22/23 07:25 12/22/23 07:25 Labs: Laboratory Results - last 24 hr 12/22/23 07:25: WBC 8.5, RBC 2.69 L, Hgb 8.6 L, Hct 25.3 L, MCV 94.1 H, MCH 32.0, MCHC 34.0, RDW Std Deviation 50.3 H, RDW Coeff of Ann 14.8 H, Plt Count 276, MPV 10.4, Immature Gran % (Auto) 2.500 H, Neut % (Auto) 80.4 H, Lymph % (Auto) 9.8 L, [place] % (Auto) 5.4, Eos % (Auto) 1.1, Baso % (Auto) 0.8, Absolute Neuts (auto) 6.8, Absolute Lymphs (auto) 0.83, Nucleated RBC % 0, Sodium 138, Potassium 3.7, Chloride 107, Carbon Dioxide 28.0, Anion Gap 3 L, BUN 17, Creatinine 0.78, Estim Creat Clear Calc 79.84, Est GFR (MDRD) Af Amer 125, Est GFR (MDRD) Non-Af 103, BUN/Creatinine Ratio 21.9 H, Glucose 101, Calcium 7.7 L Micro: Microbiology 12/14/23 11:50 Blood Culture (Wb) - Right Forearm Blood Culture - Final No growth in 5 days. 12/14/23 11:30 Blood Culture (Wb) - Anticubital Right Blood Culture - Final No growth in 5 days. 12/14/23 13:52 Urine Catheter - Catheter Urine Culture - Final Culture exhibits no growth. Physical Exam Const oriented x3 and no apparent distress Resp normal respiratory effort GI soft to palpation and non-tender Assessment & Plan Assessment/Plan (1) Sigmoid volvulus: PLAN: Patient is tolerating a diet and his incision in place clean dry and intact. He has stoma producing stool. I will change to regular diet as the patient is tolerating transitional diet and not having abdominal pain. (2) Hematuria: PLAN: Patient also still has gross hematuria. His hemoglobin dropped a gram susana half since yesterday. I am rechecking an H&H in 6 hours. If it continues to fall I will order transfusion. Patient has Ayala in place and urology is on board. Kristian Giles MD Pager: [facility] [address] [facility], [address] [place] [address] Office: 12/22/23 0853 <Electronically signed by Kristian Giles MD> Cosigner Signature (if applicable): CC: ~ Signed [facility] Work Phone: 1(392) 468-404903-02-2024 Progress note Author Missy Phelan [facility] December 21, 2023 8:27am Note Date/Time December 21, 2023 8:27 am [facility] Medical Records Department [address] [place] [address] Progress Note 12/21/23814 MR#: [id number] Acct: [id number] Name: MAYNOR VIDES III Rep #:[id number] : 1945 78 From: Missy Phelan DO PCP: Dr. Sarika Montaño MD Status:ADM IN Location: ICU ICU02-1 Subjective Subjective Patient with recurrent urinary retention after general surgery pulled his Ayala yesterday despite Flomax use. Ayala replaced however blood in Ayala and clotting with inability to flush and patient having significant pain. Urology was consulted and placed a three-way Ayala for flushing and will need to maintain this at discharge. Patient has no other complaints. Tolerating p.o. diet without difficulty and good ostomy output. Objective Data Objective Data Vital Signs: Vital Signs Temp Pulse Resp BP Pulse Ox O2 Del Method O2 Flow Rate 97.7 F L 79 16 132/78 H 100 Room Air 2 12/21/23 04:15 12/21/23 04:15 12/21/23 04:15 12/21/23 04:15 12/21/23 04:15 12/21/23 04:15 12/16/23 05:00 FiO2 95 12/16/23 11:30 Oxygen Flow Rate (L/min) 2 Oxygen Delivery Method Room Air Weight: 86.3 kg Body Mass Index (BMI) 27.3 Intake & Output: Intake and Output for Last 24 Hours 02/12/20/23 12/21/23 23:59 23:59 23:59 Intake Total 990.00 / 990.00 840 / 1140 650 / 650 Output Total 850 / 850 1750 / 2075 975 / 975 Balance 140.00 / 140.00 -910 / -935 -325 / -325 Lab / Micro Data 12/21/23 07:45 12/21/23 07:45 Labs: Laboratory Results - last 24 hr 12/20/23 12:10: Urine Color Yellow, Urine Clarity Sl. Cloudy, Urine pH 5.0, Ur Specific [place] 1.025, Urine Protein 30 H, Urine Glucose (UA) Normal, Urine Ketones 15 H, Urine Occult Blood 250 H, Urine Nitrite Negative, Urine Bilirubin Negative, Urine Urobilinogen 1 H, Ur Leukocyte Esterase 100 H, Urine RBC 25-50 SEEN, Urine WBC 10-25 SEEN, Ur Squamous Epith Cells 0-5 SEEN, Urine Bacteria 1+,Urine Mucus 0 SEEN 12/21/23 07:45: WBC 10.5, RBC 3.18 L, Hgb 10.1 L, Hct 30.4 L, MCV 95.6 H, MCH 31.8, MCHC 33.2, RDW Std Deviation 50.3 H, RDW Coeff of Ann 14.5, Plt Count 310,MPV 10.4, Immature Gran % (Auto) 3.000 H, Neut % (Auto) 81.4 H, Lymph % (Auto) 9.0 L, [place] % (Auto) 4.8, Eos % (Auto) 0.9, Baso % (Auto) 0.9, Absolute Neuts (auto) 8.6 H, Absolute Lymphs (auto) 0.95, Nucleated RBC % 0, Sodium 139, Potassium 3.6, Chloride 106, Carbon Dioxide 30.0, Anion Gap 3 L, BUN 22 H, Creatinine 0.88, Estim Creat Clear Calc 72.59, Est GFR (MDRD) Af Amer 108, Est GFR (MDRD) Non-Af 89, BUN/Creatinine Ratio 24.9 H, Glucose 108 H, Calcium 8.4 L Micro: Microbiology 12/14/23 11:50 Blood Culture (Wb) - Right Forearm Blood Culture - Final No growth in 5 days. 12/14/23 11:30 Blood Culture (Wb) - Anticubital Right Blood Culture - Final No growth in 5 days. 12/14/23 13:52 Urine Catheter - Catheter Urine Culture - Final Culture exhibits no growth. Physical Exam Const alert, oriented x3 and no apparent distress Constitutional Narrative: Elderly, white male, lying in bed resting comfortably, appears nontoxic General Appearance: cooperative HEENT normocephalic, head/scalp atraumatic and moist oral mucous membranes HEENT Narrative: Mallampati is 2, no thrush Resp normal respiratory effort, normal air movement, no retractions, no use of accessory muscles and clear to auscultation bilaterally Auscultation: Negative for crackles, rhonchi or wheezes Cardio regular rate, regular rhythm, S1 normal heart sound, S2 normal heart sound, no murmurs, no rub, no gallops and no clicks GI normal to inspection, nondistended, normoactive bowel sounds, soft to palpation and non-tender GI Narrative: Bowel sounds are good, ostomy output is excellent Narrative: Ayala in place with gross bloody hematuria Extremity Extremity Narrative: Trace bilateral lower extremity edema, no cyanosis or clubbing Neuro oriented x3, moves all extremities and no focal motor deficits Neuro Narrative: Speech is intelligible and normal in diction but slow in response time and asif due to his bradykinesia Psych Psych Narrative: Very pleasant, interacts appropriately Assessment & Plan Assessment/Plan (1) Leukocytosis: (2) Nausea & vomiting: (3) Bowel obstruction: QUALIFIERS: Intestinal obstruction type: volvulus Qualified Code(s): K56.2 - Volvulus (4) Sigmoid volvulus: (5) Edema: PLAN: Plan Sigmoid volvulus -Postop day 5 for exploratory laparotomy with small bowel resection and sigmoid colectomy with creation of end colostomy. -On a transitional diet -Continue dietary supplements with Ensure -Antibiotics discontinued yesterday -Management per primary service Leukocytosis -Resolved Dysphagia -Passed for oral diet with speech therapy -They did identify moderate to severe oropharyngeal dysphagia which is likely related to his baseline Parkinson's and acute debility due to current illness -Diet recommendations are for bite-size and thin liquids with compensation strategies -Continue ongoing speech therapy after discharge to TCU Urinary retention -Ayala removed 12/19/2023 however had to be replaced overnight due to urinary retention with greater than 250 on bladder scan and then removed again on 12/20/2023 after Flomax had been initiated however patient had recurrent urinary retention and Ayala was placed--> then developed lower abdominal pain with hematuria--> urology consulted and placed Ayala catheter--> patient had false passage -Continue Flomax -Plan on maintaining Ayala at discharge with outpatient urology follow-up Anemia -Down 1 g since hematuria yesterday -Plan is to monitor this and once stable transition to TCU for ongoing rehab after discharge 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 Work Phone: 1(343) 673-240903-02-2024 Progress note Author Kristian Giles [facility] December 21, 2023 8:15am Note Date/Time December 21, 2023 8:15 am [facility] Medical Records Department [address] [place] [address] Progress Note - Surgery 12/21/23813 MR#: [id number] Acct: [id number] Name: MAYNOR VIDES III Rep #:[id number] : 1945 78 From: Kristian carl MD PCP: Dr. Sarika Montaño MD Status:ADM IN Location: ICU ICU02-1 Subjective Subjective Patient is not complaining of any abdominal pain and he is tolerating a transitional diet. Objective Data Objective Data Vital Signs: Vital Signs Temp Pulse Resp BP Pulse Ox O2 Del Method O2 Flow Rate 97.7 F L 79 16 132/78 H 100 Room Air 2 12/21/23 04:15 12/21/23 04:15 12/21/23 04:15 12/21/23 04:15 12/21/23 04:15 12/21/23 04:15 12/16/23 05:00 FiO2 95 12/16/23 11:30 Oxygen Flow Rate (L/min) 2 Oxygen Delivery Method Room Air Weight: 190 lb 4.143 oz Body Mass Index (BMI) 27.3 Intake & Output: Intake and Output for Last 24 Hours 12/19/23 12/20/23 12/21/23 23:59 23:59 23:59 Intake Total 990.00 / 990.00 840 / 1140 650 / 650 Output Total 850 / 850 1750 / 2075 975 / 975 Balance 140.00 / 140.00 -910 / -935 -325 / -325 Lab / Micro Data 12/21/23 07:45 12/21/23 07:45 Labs: Laboratory Results - last 24 hr 12/20/23 12:10: Urine Color Yellow, Urine Clarity Sl. Cloudy, Urine pH 5.0, Ur Specific [place] 1.025, Urine Protein 30 H, Urine Glucose (UA) Normal, Urine Ketones 15 H, Urine Occult Blood 250 H, Urine Nitrite Negative, Urine Bilirubin Negative, Urine Urobilinogen 1 H, Ur Leukocyte Esterase 100 H, Urine RBC 25-50 SEEN, Urine WBC 10-25 SEEN, Ur Squamous Epith Cells 0-5 SEEN, Urine Bacteria 1+,Urine Mucus 0 SEEN 12/21/23 07:45: WBC 10.5, RBC 3.18 L, Hgb 10.1 L, Hct 30.4 L, MCV 95.6 H, MCH 31.8, MCHC 33.2, RDW Std Deviation 50.3 H, RDW Coeff of Ann 14.5, Plt Count 310,MPV 10.4, Immature Gran % (Auto) 3.000 H, Neut % (Auto) 81.4 H, Lymph % (Auto) 9.0 L, [place] % (Auto) 4.8, Eos % (Auto) 0.9, Baso % (Auto) 0.9, Absolute Neuts (auto) 8.6 H, Absolute Lymphs (auto) 0.95, Nucleated RBC % 0, Sodium 139, Potassium 3.6, Chloride 106, Carbon Dioxide 30.0, Anion Gap 3 L, BUN 22 H, Creatinine 0.88, Estim Creat Clear Calc 72.59, Est GFR (MDRD) Af Amer 108, Est GFR (MDRD) Non-Af 89, BUN/Creatinine Ratio 24.9 H, Glucose 108 H, Calcium 8.4 L Micro: Microbiology 12/14/23 11:50 Blood Culture (Wb) - Right Forearm Blood Culture - Final No growth in 5 days. 12/14/23 11:30 Blood Culture (Wb) - Anticubital Right Blood Culture - Final No growth in 5 days. 12/14/23 13:52 Urine Catheter - Catheter Urine Culture - Final Culture exhibits no growth. Physical Exam Const no apparent distress Resp normal respiratory effort GI normal to inspection, nondistended, normoactive bowel sounds Extremity normal to inspection Assessment & Plan Assessment/Plan (1) Sigmoid volvulus: (2) Hematuria: PLAN: Plan The patient had replacement of Ayala by Dr. Becerra last night. The patient was having urinary retention and the replaced Ayala has been irrigating blood out ofthe bladder. The TCU is ready for transfer for him but I would like to see his hemoglobin be stable and to see his urine cleared up a little. Currently it appears grossly bloody. Once the patient's urine is clearing more I will discharge him with the Ayala in place to TCU. Kristian Giles MD Pager: [facility] [address] [place] [address], [address] [place] [address] Office: 12/21/23 6321 <Electronically signed by Kristian Giles MD> Cosigner Signature (if applicable): CC: ~ Signed [facility] Work Phone: 1(628) 212-292503-02-2024 Consult note Author Garth Becerra [facility] December 21, 2023 7:41am Note Date/Time December 21, 2023 7:41 am [facility] Medical Records Department [address] [place] [address] Consultation 12/21/23 0740 MR#: [id number] Acct: [id number] Name: MAYNOR VIDES III Rep #:[id number] : 1945 78 From: Garth Becerra MD PCP: Dr. Sarika Montaño MD Status:ADM IN Location: ICU ICU02-1 Consult Date of Consult: 12/21/23 Reason for Consult s/p flexible cysto and ayala placement draining okay still bloody, okay to flush as needed but do not remove or manipulate ayala. 12/21/23 0741 <Electronically signed by Garth Becerra MD> Cosigner Signature (if applicable): CC: Dr. Sarika Montaño MD; Dr. Garth Becerra MD; Dr. Missy Phelan DO; Dr.Nicholas Camilo Billingsley MD; Dr. Pito Nickerson MD; Noman Chen, ~ Signed [facility] Work Phone: [phone]) 500-141103-01-2024 Consult note Author Garth Becerra [facility] December 20, 2023 8:48pm Note Date/Time December 20, 2023 8:48 pm [facility] Medical Records Department [address] [facility] [place] [address] Consultation - Urology 12/20/232044 MR#: [id number] Acct: [id number] Name: MAYNOR VIDES III Rep #:[id number] : 1945 78 From: Garth Becerra MD PCP: Dr. Sarika Montaño MD Status:ADM IN Location: ICU ICU02-1 HPI Consult Data Date of Consult: 12/20/23 HPI Narrative Reason for Consultation: Ayala trauma HPI Narrative: MAYNOR VIDES, is a 78 M who is in the intensive care unit he is recovering from surgery by general surgery for a bowel case. Apparently he had a Ayala catheter placed per report there was some bleeding after this catheter was placed several days later the catheter was removed for a voiding trial which failed he subsequently had a catheter put back in and then taken out again for another trial which failed and then now the catheter they tried to put a catheter back in but could not irrigate and nothing was draining so I was consulted. Came by and saw the patient looks like the current catheter may not be in proper place so the catheter was removed. Bedside cystoscopy was done with a flexible camera quite bloody within the prostatic channel appears to havemay be a false passage was able to navigate into the bladder through a flexible cystoscope put a wire through the scope and then over the wire placed a 20 Jordanian telida tip catheter with 10 cc in the balloon I then irrigated the bladder out so there was no more clots the urine was draining a salvador red color urine. The nurses are able to irrigate the clot catheter as necessary for any clots or if is not draining but please do not manipulate the catheter deflate the balloonor remove the catheter. He should follow-up with urology as an outpatient to eventually have the catheter removed once his strength is better and better chance that he can void spontaneously and once his prostate heals from the trauma. Call me with questions [facility] Medical History (Updated 12/18/23 @ 10:[address] Missy Phelan, DO) CKD (chronic kidney disease), stage II Parkinson disease Home Medications amantadine HCl 100 mg capsule 100 mg PO DAILY hill 12/04/23 [History Last Taken Unknown] carbidopa 25 mg-levodopa 100 mg tablet 1.5 tab PO DAILY 12/04/23 [History Last Taken Unknown] carbidopa ER 25 mg-levodopa 100 mg tablet,extended release 1 tab PO QHS hill 12/04/23 [History Last Taken Unknown] carbidopa 25 mg-levodopa 100 mg tablet 1 tab PO BID 12/13/23 [History Last Taken Unknown] Allergy/AdvReac Type Severity Reaction Status Date / Time No Known Allergies Allergy Verified 12/13/23 11:57 Family History (Updated 12/14/23 @ 00:[address] Kelley Shankar MD) Mother Heart disease Father Heart disease Surgical History (Updated 12/14/23 @ 00:[address] Kelley Shankar MD) History of tonsillectomy and adenoidectomy Surgical History no surgical history Social History (Updated 12/14/23 @ 01:[address] Kelley Shankar MD) household members: none Smoking Status: Never smoker alcohol intake: never substance use type: does not use Lab / Micro Data 12/20/23 02:55 12/20/23 02:55 Labs: Laboratory Results - last 24 hr 12/20/23 02:55: WBC 11.1 H, RBC 3.52 L, Hgb 11.1 L, Hct 33.2 L, MCV 94.3 H, MCH 31.5, MCHC 33.4, RDW Std Deviation 50.8 H, RDW Coeff of Ann 14.8 H, Plt Count 285, MPV 10.6, Immature Gran % (Auto) 2.300 H, Neut % (Auto) 78.8 H, Lymph % (Auto) 10.6 L, [place] % (Auto) 6.3, Eos % (Auto) 0.7, Baso % (Auto) 1.3 H, Absolute Neuts (auto) 8.8 H, Absolute Lymphs (auto) 1.18, Nucleated RBC % 0, Sodium 139, Potassium 3.5, Chloride 106, Carbon Dioxide 29.0, Anion Gap 4 L, BUN26 H, Creatinine 0.85, Estim Creat Clear Calc 82.52, Est GFR (MDRD) Af Amer 113,Est GFR (MDRD) Non-Af 93, BUN/Creatinine Ratio 30.7 H, Glucose 128 H, Calcium 8.0 L 12/20/23 12:10: Urine Color Yellow, Urine Clarity Sl. Cloudy, Urine pH 5.0, Ur Specific [place] 1.025, Urine Protein 30 H, Urine Glucose (UA) Normal, Urine Ketones 15 H, Urine Occult Blood 250 H, Urine Nitrite Negative, Urine Bilirubin Negative, Urine Urobilinogen 1 H, Ur Leukocyte Esterase 100 H, Urine RBC 25-50 SEEN, Urine WBC 10-25 SEEN, Ur Squamous Epith Cells 0-5 SEEN, Urine Bacteria 1+,Urine Mucus 0 SEEN 12/20/232047 <Electronically signed by Garth Becerra MD> Cosigner Signature (if applicable): CC: Dr. Sarika Montaño MD; Dr. Garth Becerra MD; Dr. Missy Phelan DO; Dr.Nicholas Camilo Billingsley MD; Dr. Pito Nickerson MD; Noman Chen, ~ Signed [facility] Work Phone: 1(457) 157-516903-01-2024 Procedure [facility] 12-20-2023 Progress note Author Missy Phelan [facility] December 20, 2023 4:19pm Note Date/Time December 20, 2023 4:19 pm [facility] Medical Records Department [address] [place] [address] Progress Note - Hospitalist 12/20/23 1614 MR#: [id number] Acct: [id number] Name: MAYNOR IVDES Agueda AMOS Rep #:[id number] : 1945 78 From: Missy Phelan DO PCP: Dr. Sarika Montaño MD Status:ADM IN Location: ICU ICU02-1 Reason for Visit Reason for Visit: Abdominal pain/nausea/vomiting Subjective Subjective No issues overnight. Modified barium swallow was performed and diet was reinitiated with precautions. No complaints currently. Objective Data Objective Data Vital Signs: Vital Signs Temp Pulse Resp BP Pulse Ox O2 Del Method O2 Flow Rate 97.9 F 85 20 H 119/79 95 Room Air 2 12/20/23 14:22 12/20/23 14:22 12/20/23 14:22 12/20/23 14:22 12/20/23 14:22 12/20/23 14:22 12/16/23 05:00 FiO2 95 12/16/23 11:30 Oxygen Flow Rate (L/min) 2 Oxygen Delivery Method Room Air Weight: 85 kg Body Mass Index (BMI) 26.9 Intake & Output: Intake and Output for Last 24 Hours 12/18/23 12/19/23 12/20/23 23:59 23:59 23:59 Intake Total 630 / 630 990.00 / 990.00 540 / 540 Output Total 6300 / 6300 850 / 850 1400 / 1400 Balance -5670 / -5670 140.00 / 140.00 -860 / -860 Lab / Micro Data 12/20/23 02:55 12/20/23 02:55 Labs: Laboratory Results - last 24 hr 12/20/23 02:55: WBC 11.1 H, RBC 3.52 L, Hgb 11.1 L, Hct 33.2 L, MCV 94.3 H, MCH 31.5, MCHC 33.4, RDW Std Deviation 50.8 H, RDW Coeff of Ann 14.8 H, Plt Count 285, MPV 10.6, Immature Gran % (Auto) 2.300 H, Neut % (Auto) 78.8 H, Lymph % (Auto) 10.6 L, [place] % (Auto) 6.3, Eos % (Auto) 0.7, Baso % (Auto) 1.3 H, Absolute Neuts (auto) 8.8 H, Absolute Lymphs (auto) 1.18, Nucleated RBC % 0, Sodium 139, Potassium 3.5, Chloride 106, Carbon Dioxide 29.0, Anion Gap 4 L, BUN26 H, Creatinine 0.85, Estim Creat Clear Calc 82.52, Est GFR (MDRD) Af Amer 113,Est GFR (MDRD) Non-Af 93, BUN/Creatinine Ratio 30.7 H, Glucose 128 H, Calcium 8.0 L 12/20/23 12:10: Urine Color Yellow, Urine Clarity Sl. Cloudy, Urine pH 5.0, Ur Specific [place] 1.025, Urine Protein 30 H, Urine Glucose (UA) Normal, Urine Ketones 15 H, Urine Occult Blood 250 H, Urine Nitrite Negative, Urine Bilirubin Negative, Urine Urobilinogen 1 H, Ur Leukocyte Esterase 100 H, Urine RBC 25-50 SEEN, Urine WBC 10-25 SEEN, Ur Squamous Epith Cells 0-5 SEEN, Urine Bacteria 1+,Urine Mucus 0 SEEN Micro: Microbiology 12/14/23 11:50 Blood Culture (Wb) - Right Forearm Blood Culture - Final No growth in 5 days. 12/14/23 11:30 Blood Culture (Wb) - Anticubital Right Blood Culture - Final No growth in 5 days. 12/14/23 13:52 Urine Catheter - Catheter Urine Culture - Final Culture exhibits no growth. Physical Exam Const alert, oriented x3 and no apparent distress Constitutional Narrative: Elderly, white male, lying in bed resting comfortably, appears nontoxic HEENT head/scalp atraumatic and moist oral mucous membranes HEENT Narrative: Dentition is poor, Mallampati is 2, no thrush Head and Scalp: normocephalic Resp normal respiratory effort, no retractions, no use of accessory muscles and clearto auscultation bilaterally Auscultation: Negative for crackles, rhonchi or wheezes Cardio regular rate, regular rhythm, S1 normal heart sound, S2 normal heart sound, no murmurs, no rub, no gallops and no clicks GI normal to inspection, nondistended, normoactive bowel sounds, soft to palpation and non-tender GI Narrative: Bowel sounds are good, ostomy output is excellent Extremity Extremity Narrative: Trace bilateral lower extremity edema, no cyanosis or clubbing Neuro oriented x3, moves all extremities and no focal motor deficits Speech: speech normal Psych Psych Narrative: unable to assess due to sleep Assessment & Plan Assessment/Plan (1) Leukocytosis: (2) Nausea & vomiting: (3) Bowel obstruction: QUALIFIERS: Intestinal obstruction type: volvulus Qualified Code(s): K56.2 - Volvulus (4) Sigmoid volvulus: (5) Edema: PLAN: Plan Sigmoid volvulus -Postop day 4 for exploratory laparotomy with small bowel resection and sigmoid colectomy with creation of end colostomy. -Was made n.p.o. by speech therapy with modified barium swallow planned for today -Okay for full liquids depending on modified barium swallow results -Ensure was added for protein supplementation -Advance diet per general surgery recommendations -Pain management as per surgery recommendations -Antibiotics per primary service--> General surgery has patient on Zosyn for now Leukocytosis -Had normalized but up a bit today -Unclear what to make of this and patient has been on Zosyn -Clinically appears stable otherwise -Repeat UA is somewhat suggestive of infection however he has been on Zosyn -Would just monitor clinically and repeat CBC tomorrow to assess trend Dysphagia -Passed for oral diet with speech therapy -They did identify moderate to severe oropharyngeal dysphagia which is likely related to his baseline Parkinson's and acute debility due to current illness -Rec bite-size diet once his diet is advanced from full liquids -Continue ongoing speech therapy after discharge to TCU Urinary retention -Ayala removed yesterday however had to be replaced overnight due to urinary retention with greater than 250 on bladder scan -Continue Flomax -Remove Ayala at general surgery discretion SARITHA on CKD stage II -SARITHA is resolved and serum creatinine is at baseline -Continue to monitor as needed Mild hyperbilirubinemia -Suspect related to acute illness -Bilirubin had trended down Parkinson's disease -Continue Sinemet -Continue amantadine DVT prophylaxis -SCDs -Chemoprophylaxis per general surgery CODE STATUS -Full code is verified on admission Charges/Coding Visit Charges Inpatient E&M: 77593 Subs Hosp L2 12/20/23 1619 <Electronically signed by Missy Phelan DO> Cosigner Signature (if applicable): CC: ~ Signed [facility] Work Phone: 1([phone]) 851-456603-01-2024 Progress note Author Surjit Kirkland [facility] December 20, 2023 12:23pm Note Date/Time December 20, 2023 12:[address] [facility] Medical Records Department [address] [place] [address] Progress Note - Surgery 12/20/23 1203 MR#: [id number] Acct: [id number] Name: MAYNOR VIDES III Rep #:[id number] : 1945 78 From: Surjit العراقي PCP: Dr. Sarika Montaño MD Status:ADM IN Location: ICU ICU02-1 Subjective Subjective Patient seen and examined during AM rounds. His daughter is with him and has just recently finished helping with his grooming needs. He reports that he is feeling somewhat better than yesterday. He states that his diet advancement?reflected in his breakfast offerings?was well-tolerated. He denies any abdominal pain complaints. He relates that he is able to do more?such is noticing his limits more. Objective Data Objective Data Vital Signs: Vital Signs Temp Pulse Resp BP Pulse Ox O2 Del Method O2 Flow Rate 96.9 F L 75 16 132/71 H 93 Room Air 2 12/20/23 08:45 12/20/23 08:45 12/20/23 08:45 12/20/23 08:45 12/20/23 08:45 12/20/23 08:45 12/16/23 05:00 FiO2 95 12/16/23 11:30 Oxygen Flow Rate (L/min) 2 Oxygen Delivery Method Room Air Weight: 187 lb 6.287 oz Body Mass Index (BMI) 26.9 Intake & Output: Intake and Output for Last 24 Hours 12/18/23 12/19/23 12/20/23 23:59 23:59 23:59 Intake Total 630 / 630 990.00 / 990.00 540 / 540 Output Total 6300 / 6300 850 / 850 1400 / 1400 Balance -5670 / -5670 140.00 / 140.00 -860 / -860 Lab / Micro Data 12/20/23 02:55 12/20/23 02:55 Labs: Laboratory Results - last 24 hr 12/20/23 02:55: WBC 11.1 H, RBC 3.52 L, Hgb 11.1 L, Hct 33.2 L, MCV 94.3 H, MCH 31.5, MCHC 33.4, RDW Std Deviation 50.8 H, RDW Coeff of Ann 14.8 H, Plt Count 285, MPV 10.6, Immature Gran % (Auto) 2.300 H, Neut % (Auto) 78.8 H, Lymph % (Auto) 10.6 L, [place] % (Auto) 6.3, Eos % (Auto) 0.7, Baso % (Auto) 1.3 H, Absolute Neuts (auto) 8.8 H, Absolute Lymphs (auto) 1.18, Nucleated RBC % 0, Sodium 139, Potassium 3.5, Chloride 106, Carbon Dioxide 29.0, Anion Gap 4 L, BUN 26H, Creatinine 0.85, Estim Creat Clear Calc 82.52, Est GFR (MDRD) Af Amer 113, Est GFR (MDRD) Non-Af 93, BUN/Creatinine Ratio 30.7 H, Glucose 128 H, Calcium 8.0 L Micro: Microbiology 12/14/23 11:50 Blood Culture (Wb) - Right Forearm Blood Culture - Final No growth in 5 days. 12/14/23 11:30 Blood Culture (Wb) - Anticubital Right Blood Culture - Final No growth in 5 days. 12/14/23 13:52 Urine Catheter - Catheter Urine Culture - Final Culture exhibits no growth. Physical Exam Const oriented x3 and no apparent distress Resp normal respiratory effort GI GI Narrative: Nondistended, soft, nontender to palpation, laparotomy incision appears appropriate and approximated with skin caitlyn. There is tape around patient's ostomy appliance but no signs of leakage. The stoma remains well perfused and slightly edematous. There is some thin brown stool in the ostomy appliance. Assessment & Plan Assessment/Plan (1) Sigmoid volvulus: PLAN: Patient is a 78-year-old male, with past medical history of Parkinson's, who presents with a 17-hour history of acute onset abdominal pain and nausea/vomiting. Diagnostic workup shows evidence of sigmoid volvulus. He is status post endoscopic colonic decompression with gastroenterology 12/13/23. However, the significant stool burden precluded complete decompression of the colon but a rectal tube was left in place proximal to the area of volvulus. Patient is postoperative day 5 from exploratory laparotomy with small bowel resection as well as sigmoid colectomy and creation of end colostomy. He continues to do well and having minimal pain. He reports that his diet advancement was tolerated well yesterday after being cleared to resume nutritionby speech therapy. He states that he is recognizing his limitations but does not necessarily feel weaker today. He otherwise is without complaint and simplywishes to know what his treatment plan is for the day. Neuro: As needed acetaminophen and oxycodone, continue home Parkinson's meds perhospitalist service Pulm/CV: Improved anasarca, patient denies any respiratory difficulty but has vital capacity is only approximately 750 mL when demonstrating on I-S; he is instructed to continue regular work with this device, patient is exhibiting normal blood pressures FEN/GI: Continue close monitoring of electrolytes given large fluid shifts, patient's creatinine is now within normal limits, tolerating a transitional dietwell?abdomen appropriate, Protonix, wound and ostomy nursing consult : Plan to obtain UA prior to Ayala catheter discontinuation given patient's slight increase in WBC today, Flomax started 2 days ago. Heme/ID: Continue to trend CBC, Zosyn to stop today but we will keep a close eyeon patient's UA above as well as any other signs of infection given slight leukocytosis today Endo: Continue glucose monitoring during limited nutritional state Proph: SCDs Dispo: Transfer orders have been placed for [facility] floor, however bed availability has precluded this transfer. Hold on TCU transfer until patient evaluated for spontaneous void following Ayala catheter removal and closure to infection concerns is obtained. Care plan has been discussed with hospitalist service. Appreciate their assistance with patient. Charges/Coding Visit Charges Inpatient E&M: 36010 Subs Hosp L2 12/20/23 1223 <Electronically signed by Surjit Kirkland MD> Cosigner Signature (if applicable): CC: ~ Signed [facility] Work Phone: 1(331) 184-767802-29-2024 Progress note Author Missy Phelan [facility] December 19, 2023 2:43pm Note Date/Time December 19, 2023 2:43pm [facility] Medical Records Department [address] [place] [address] Progress Note - Hospitalist 12/19/23 1438 MR#: [id number] Acct: [id number] Name: MAYNOR VIDES DANDRE Rep #:[id number] : 1945 78 From: Missy Phelan DO PCP: Dr. Sarika Montaño MD Status:ADM IN Location: ICU ICU02-1 Reason for Visit Reason for Visit: Abdominal pain/nausea/vomiting Subjective Subjective Patient with some lower abdominal discomfort overnight and was bladder scanned for 250. Ayala was replaced. Was also seen by speech therapy due to concerns with swallowing and modified barium swallow has been recommended for today. Patient was sleeping at the time of my examination but per nursing no significant issues other than the above and good ostomy output. Objective Data Objective Data Vital Signs: Vital Signs Temp Pulse Resp BP Pulse Ox O2 Del Method O2 Flow Rate 97.1 F L 75 24 H 129/84 H 94 Room Air 2 12/19/23 08:00 12/19/23 08:00 12/19/23 08:00 12/19/23 08:00 12/19/23 08:00 12/19/23 08:00 12/16/23 05:00 FiO2 95 12/16/23 11:30 Oxygen Flow Rate (L/min) 2 Oxygen Delivery Method Room Air Weight: 90.9 kg Body Mass Index (BMI) 28.7 Intake & Output: Intake and Output for Last 24 Hours 12/17/23 12/18/23 12/19/23 23:59 23:59 23:59 Intake Total 2772 / 2892 630 / 630 210.00 / 210.00 Output Total 1400 / 1750 6300 / 6300 500 / 500 Balance 1372 / 1142 -5670 / -5670 -290.00 / -290.00 Lab / Micro Data 12/19/23 05:25 12/19/23 05:25 Labs: Laboratory Results - last 24 hr 12/19/23 05:25: WBC 10.3, RBC 3.79 L, Hgb 12.1 L, Hct 35.3 L, MCV 93.1, MCH 31.9, MCHC 34.3, RDW Std Deviation 49.9 H, RDW Coeff of Ann 14.6, Plt Count 250,MPV 10.8, Immature Gran % (Auto) 1.700 H, Neut % (Auto) 82.4 H, Lymph % (Auto) 6.9 L, [place] % (Auto) 7.7, Eos % (Auto) 0.5, Baso % (Auto) 0.8, Absolute Neuts (auto) 8.5 H, Absolute Lymphs (auto) 0.71 L, Nucleated RBC % 0, Sodium 139, Potassium 3.5, Chloride 104, Carbon Dioxide 30.0, Anion Gap 5, BUN 21 H, Creatinine 0.86, Estim Creat Clear Calc 81.56, Est GFR (MDRD) Af Amer 110, Est GFR (MDRD) Non-Af 91, BUN/Creatinine Ratio 24.3 H, Glucose 114 H, Calcium 8.0 L,Phosphorus 3.6 Micro: Microbiology 12/14/23 11:50 Blood Culture (Wb) - Right Forearm Blood Culture - Final No growth in 5 days. 12/14/23 11:30 Blood Culture (Wb) - Anticubital Right Blood Culture - Final No growth in 5 days. 12/14/23 13:52 Urine Catheter - Catheter Urine Culture - Final Culture exhibits no growth. Physical Exam Const no apparent distress Constitutional Narrative: Elderly, white male, lying in bed resting comfortably, appears nontoxic HEENT head/scalp atraumatic Head and Scalp: normocephalic Resp normal respiratory effort, no retractions, no use of accessory muscles and clearto auscultation bilaterally Auscultation: Negative for crackles, rhonchi or wheezes Cardio regular rate, regular rhythm, S1 normal heart sound, S2 normal heart sound, no murmurs, no rub, no gallops and no clicks GI normal to inspection, nondistended, normoactive bowel sounds and soft to palpation GI Narrative: Bowel sounds are good Extremity Extremity Narrative: Upper extremity edema has resolved, trace to 1+ bilateral lower extremity edema that has improved, no clubbing or cyanosis Neuro Neuro Narrative: Patient is currently sleeping but during my evaluation did move all extremities spontaneously and his sleep Psych Psych Narrative: unable to assess due to sleep Assessment & Plan Assessment/Plan (1) Leukocytosis: (2) Nausea & vomiting: (3) Bowel obstruction: QUALIFIERS: Intestinal obstruction type: volvulus Qualified Code(s): K56.2 - Volvulus (4) Sigmoid volvulus: (5) Edema: PLAN: Plan Sigmoid volvulus -Postop day 4 for exploratory laparotomy with small bowel resection and sigmoid colectomy with creation of end colostomy. -Was made n.p.o. by speech therapy with modified barium swallow planned for today -Okay for full liquids depending on modified barium swallow results -Ensure was added for protein supplementation -Advance diet per general surgery recommendations -Pain management as per surgery recommendations -Antibiotics per primary service--> General surgery has patient on Zosyn for now Lactic acidosis -Resolved -Likely related related to sigmoid volvulus Elevated blood pressure -Overall blood pressures appear to be fairly well-controlled with a few elevations here and there -Will hold off on adding anything for hypertension at this time Dysphagia -Concerns for dysphagia and patient made n.p.o. by speech therapy -Modified barium swallow is pending -Diet per speech therapy and general surgery Urinary retention -Ayala removed yesterday however had to be replaced overnight due to urinary retention with greater than 250 on bladder scan -Will start Flomax today and would retry Ayala removal in the next 24 to 48 hours at general surgery's discretion SARITHA on CKD stage II -SARITHA is resolved and serum creatinine is at baseline -Continue to monitor as needed Mild hyperbilirubinemia -Suspect related to acute illness -Bilirubin had trended down Parkinson's disease -Continue Sinemet -Continue amantadine DVT prophylaxis -SCDs -Chemoprophylaxis per general surgery CODE STATUS -Full code is verified on admission Charges/Coding Visit Charges Inpatient E&M: 70858 Subs Hosp L2 12/19/23 1443 <Electronically signed by Missy Phelan DO> Cosigner Signature (if applicable): CC: ~ Signed [facility] Work Phone: 1(634) 136-588902-29-2024 Procedure [facility] 12-19-2023 Progress note Author Surjit Kirkland [facility] December 19, 2023 10:22am Note Date/Time December 19, 2023 10:22am [facility] Medical Records Department [address] [place] [address] Progress Note - Surgery 12/19/23 1015 MR#: [id number] Acct: [id number] Name: MAYNOR VIDES III Rep #:[id number] : 1945 78 From: Surjit العراقي PCP: Dr. Sarika Montaño MD Status:ADM IN Location: ICU ICU02-1 Subjective Subjective Patient seen and examined during AM rounds. He is recently returned to his roomfrom a swallow study with speech therapy. He shares that he felt the study wentwell. He reports that he is feeling better today and more alert. He does confirm nursing reports that he had some pelvic pain overnight and was found to have some urinary retention occasioning Ayala replacement. Objective Data Objective Data Vital Signs: Vital Signs Temp Pulse Resp BP Pulse Ox O2 Del Method O2 Flow Rate 97.1 F L 75 24 H 129/84 H 94 Room Air 2 12/19/23 08:00 12/19/23 08:00 12/19/23 08:00 12/19/23 08:00 12/19/23 08:00 12/19/23 08:00 12/16/23 05:00 FiO2 95 12/16/23 11:30 Oxygen Flow Rate (L/min) 2 Oxygen Delivery Method Room Air Weight: 200 lb 6.403 oz Body Mass Index (BMI) 28.7 Intake & Output: Intake and Output for Last 24 Hours 12/17/23 12/18/23 12/19/23 23:59 23:59 23:59 Intake Total 2772 / 2892 630 / 630 87.08 / 87.08 Output Total 1400 / 1750 6300 / 6300 250 / 250 Balance 1372 / 1142 -5670 / -5670 -162.92 / -162.92 Lab / Micro Data 12/19/23 05:25 12/19/23 05:25 Labs: Laboratory Results - last 24 hr 12/19/23 05:25: WBC 10.3, RBC 3.79 L, Hgb 12.1 L, Hct 35.3 L, MCV 93.1, MCH 31.9, MCHC 34.3, RDW Std Deviation 49.9 H, RDW Coeff of Ann 14.6, Plt Count 250,MPV 10.8, Immature Gran % (Auto) 1.700 H, Neut % (Auto) 82.4 H, Lymph % (Auto) 6.9 L, [place] % (Auto) 7.7, Eos % (Auto) 0.5, Baso % (Auto) 0.8, Absolute Neuts (auto) 8.5 H, Absolute Lymphs (auto) 0.71 L, Nucleated RBC % 0, Sodium 139, Potassium 3.5, Chloride 104, Carbon Dioxide 30.0, Anion Gap 5, BUN 21 H, Creatinine 0.86, Estim Creat Clear Calc 81.56, Est GFR (MDRD) Af Amer 110, Est GFR (MDRD) Non-Af 91, BUN/Creatinine Ratio 24.3 H, Glucose 114 H, Calcium 8.0 L,Phosphorus 3.6 Micro: Microbiology 12/14/23 11:50 Blood Culture (Wb) - Right Forearm Blood Culture - Final No growth in 5 days. 12/14/23 11:30 Blood Culture (Wb) - Anticubital Right Blood Culture - Final No growth in 5 days. 12/14/23 13:52 Urine Catheter - Catheter Urine Culture - Final Culture exhibits no growth. Radiography Diagnostic Testing: Radiology Impression KUB X-Ray 12/18/23 09:00 IMPRESSION: Status post abdominal surgery. Nonspecific bowel gas pattern. Electronically Signed: Brady Mackenzie MD at 11:09 EST , Physical Exam Const oriented x3 and no apparent distress Resp normal respiratory effort GI GI Narrative: Patient's abdomen is minimally distended and initially he has a colostomy appliance intact to the left upper quadrant as well as a dressing over his midline incision. These are both taken down with wound and ostomy nursing. Patient's stoma is examined and appears well-perfused but mildly edematous. Patient's laparotomy incision remains approximated with skin caitlyn and withoutredness or drainage. There is no tenderness to palpation Assessment & Plan Assessment/Plan (1) Sigmoid volvulus: PLAN: Patient is a 78-year-old male, with past medical history of Parkinson's, who presents with a 17-hour history of acute onset abdominal pain and nausea/vomiting. Diagnostic workup shows evidence of sigmoid volvulus. He is status post endoscopic colonic decompression with gastroenterology 12/13/23. However, the significant stool burden precluded complete decompression of the colon but a rectal tube was left in place proximal to the area of volvulus. Patient is postoperative day 4 from exploratory laparotomy with small bowel resection as well as sigmoid colectomy and creation of end colostomy. He is doing well and having minimal pain. He confirms that he feels like he is about back to his baseline abdominal girth. Unfortunately he did exhibit evidence of aspiration yesterday and is awaiting the final analysis of his swallow function. Apparently he also had evidence of urinary retention overnight and required replacement of his Ayala catheter. He does report that he is feeling better today. Neuro: As needed acetaminophen and oxycodone, continue home Parkinson's meds perhospitalist service Pulm/CV: Improved anasarca after 6 L urine output following Lasix administrationyesterday, patient denies any respiratory difficulty, patient is exhibiting normal blood pressures FEN/GI: Continue close monitoring of electrolytes given large fluid shifts, patient's creatinine is now within normal limits, patient currently n.p.o. per speech therapy the patient's colostomy is working well, Protonix, wound and ostomy nursing consult : Ayala catheter for Ayala retention. Flomax started yesterday. May considerremoval in another couple days. Heme/ID: Continue to trend CBC, continue empiric IV Zosyn with tentative stop date tomorrow Endo: Continue glucose monitoring during limited nutritional state Proph: SCDs Dispo: Transfer orders have been placed for [facility] floor, however bed availability has precluded this transfer. Charges/Coding Visit Charges Inpatient E&M: 01894 Subs Hosp L2 12/19/23 1022 <Electronically signed by Surjit Kirkland MD> Cosigner Signature (if applicable): CC: ~ Signed [facility] Work Phone: 1([phone] Progress note Author Missy Phelan [facility] December 18, 2023 10:47am Note Date/Time December 18, 2023 8:07am [facility] Medical Records Department [address] [place] [id number] Progress Note - Hospitalist 12/18/23 0754 MR#: [id number] Acct: [id number] Name: MAYNOR VIDES III Rep #:[id number] : 1945 78 From: Missy Phelan DO PCP: Dr. Sarika Montaño MD Status:ADM IN Location: ICU ICU02-1 Reason for Visit Reason for Visit: Abdominal pain/nausea/vomiting Subjective Subjective Mr. Vides is a 78-year-old white male who presented to the emergency departmentat [facility] on 12/13/2023 with sudden onset abdominal pain and associated nausea and vomiting that began at 10 PM the day prior. He had not been able to do anything besides drink a little bit of water on the day of presentation and felt significant pain and pressure at the time of admission. He noted minimal passage of flatus and no bowel movement. On presentation he had a leukocytosis at 24.[address] scan of the abdomen pelvis was concerning for sigmoid volvulus and colonic distention up to 10 cm. He was admitted to general surgery service and colonoscopy was performed later that day by Dr. Chen and showed poor prep, diverticulosis in the rectosigmoid colon and volvulus with partial decompression achieved during colonoscopy, the mucosa did appear to be somewhat ischemic and there was concern for ischemic colitis. Hospital medicine was consulted for management of his chronic medical issues while hospitalized. He was initially treated with supportive care trying to minimize the need for surgical intervention however he did require surgical intervention and was taken to the OR on 12/15/2023 at which time a small bowel resection with a [id number] anastomosis as well as a sigmoid colectomy with creation of end colostomy was performed. He was maintained on empiric antibiotics given his markedly elevated white count and concern for colitis on admission. Blood cultures were performed on admission and were no growth. Urineculture was performed and had no growth. Patient has since developed good on output from his ostomy and his diet was advanced to full liquids along with Ensure high-protein and the patient has been transferred to the medical floor however is still in the ICU awaiting medical bed availability. Patient has no complaints. States his pain is well-controlled. Ostomy output is good. Had no issues with full liquid diet yesterday. Objective Data Objective Data Vital Signs: Vital Signs Temp Pulse Resp BP Pulse Ox O2 Del Method O2 Flow Rate 99.6 F H 85 15 167/86 H 93 Room Air 2 12/18/23 04:00 12/18/23 04:00 12/18/23 04:00 12/18/23 04:00 12/18/23 04:00 12/18/23 04:00 12/16/23 05:00 FiO2 95 12/16/23 11:30 Oxygen Flow Rate (L/min) 2 Oxygen Delivery Method Room Air Weight: 91.3 kg Body Mass Index (BMI) 28.8 Intake & Output: Intake and Output for Last 24 Hours 12/16/23 12/17/23 12/18/23 23:59 23:59 23:59 Intake Total 3114.83 / 3114.83 2772 / 2892 420 / 420 Output Total 1250 / 1250 1400 / 1750 1100 / 1100 Balance 1864.83 / 1864.83 1372 / 1142 -680 / -680 Lab / Micro Data 12/18/23 08:35 12/18/23 08:35 Labs: Laboratory Results - last 24 hr 12/17/23 10:15: Vancomycin Trough 17.1 H Micro: Microbiology 12/14/23 13:52 Urine Catheter - Catheter Urine Culture - Final Culture exhibits no growth. 12/14/23 11:50 Blood Culture (Wb) - Right Forearm Blood Culture - Final No growth. 12/14/23 11:30 Blood Culture (Wb) - Anticubital Right Blood Culture - Final No growth. Physical Exam Const alert, oriented x3 and no apparent distress HEENT head/scalp atraumatic and moist oral mucous membranes HEENT Narrative: No thrush Resp normal respiratory effort, no retractions, no use of accessory muscles and clearto auscultation bilaterally Auscultation: Negative for crackles, rhonchi or wheezes Cardio regular rate, regular rhythm, S1 normal heart sound, S2 normal heart sound, no murmurs, no rub, no gallops and no clicks GI normal to inspection, nondistended, normoactive bowel sounds, soft to palpation and non-tender GI Narrative: Bowel sounds are good, ostomy is present with good output in stoma is pink Extremity Extremity Narrative: 1+ bilateral lower extremity edema with trace upper extremity edema, no clubbingor cyanosis Neuro oriented x3, moves all extremities and no focal motor deficits Neuro Narrative: Bradykinesia noted, speech is slow and deliberate with slowed response times likely related to his Parkinson's Speech: speech normal Psych Psych Narrative: Affect is slightly flat however patient interacts appropriately Assessment & Plan Assessment/Plan (1) Leukocytosis: (2) Nausea & vomiting: (3) Bowel obstruction: QUALIFIERS: Intestinal obstruction type: volvulus Qualified Code(s): K56.2 - Volvulus (4) Sigmoid volvulus: (5) Edema: PLAN: Plan Sigmoid volvulus -Postop day 3 for exploratory laparotomy with small bowel resection and sigmoid colectomy with creation of end colostomy. -Diet was advanced to full liquids yesterday -Ensure was added for protein supplementation -Advance diet per general surgery recommendations -Pain management as per surgery recommendations -Antibiotics per primary service--> General surgery has patient on Zosyn for now -Lasix 20 mg IV x 1 dose for edema as patient is 9+ liters positive for his hospital stay -Discussed with Dr. Chen okay to discontinue vancomycin and azithromycin Lactic acidosis -Resolved Likely related related to sigmoid volvulus Elevated blood pressure -Blood pressures appear to be labile and somewhat normal at times however currently elevated and seems to fluctuate -Will monitor and add something for blood pressure if consistently elevated, otherwise would recommend outpatient follow-up SARITHA on CKD stage II -Serum creatinine had returned to baseline -IV fluids were discontinued as patient is now on full liquid diet -Continue to monitor as needed Mild hyperbilirubinemia -Suspect related to acute illness -Bilirubin had trended down Parkinson's disease -Continue Sinemet -Continue amantadine DVT prophylaxis -SCDs -Chemoprophylaxis per general surgery CODE STATUS -Full code is verified on admission Charges/Coding Visit Charges Inpatient E&M: 20029 Subs Hosp L2 12/18/23 1047 <Electronically signed by Missy Phelan DO> Cosigner Signature (if applicable): CC: ~ Signed [facility] Work Phone: 1([phone]) 724-708202-28-2024 Progress note Author Karin Dorantes [facility] December 18, 2023 10:06am Note Date/Time December 18, 2023 8:19am [facility] System Medical Records Department [address] [place] [address] Progress Note - Surgery 12/18/23817 MR#: [id number] Acct: [id number] Name: MAYNOR VIDES III Rep #:[id number] : 1945 78 From: Karin DELEON PA-C PCP: Dr. Sarika Montaño MD Status:ADM IN Location: ICU ICU02-1 Subjective Subjective Patient evaluated resting comfortably in bed. Patient notes he had a really harriett. He denies nausea, vomiting. He denies any belching. He notes incisional discomfort, no true abdominal pain. He is having good stoma output. He is passing air within the bag. Objective Data Objective Data Vital Signs: Vital Signs Temp Pulse Resp BP Pulse Ox O2 Del Method O2 Flow Rate 99.6 F H 85 15 167/86 H 93 Room Air 2 12/18/23 04:00 12/18/23 04:00 12/18/23 04:00 12/18/23 04:00 12/18/23 04:00 12/18/23 04:00 12/16/23 05:00 FiO2 95 12/16/23 11:30 Oxygen Flow Rate (L/min) 2 Oxygen Delivery Method Room Air Weight: 201 lb 4.513 oz Body Mass Index (BMI) 28.8 Intake & Output: Intake and Output for Last 24 Hours 12/16/23 12/17/23 12/18/23 23:59 23:59 23:59 Intake Total 3114.83 / 3114.83 2772 / 2892 420 / 420 Output Total 1250 / 1250 1400 / 1750 1100 / 1100 Balance 1864.83 / 1864.83 1372 / 1142 -680 / -680 Lab / Micro Data 12/18/23 08:35 12/18/23 08:35 Labs: Laboratory Results - last 24 hr 12/17/23 10:15: Vancomycin Trough 17.1 H Micro: Microbiology 12/14/23 13:52 Urine Catheter - Catheter Urine Culture - Final Culture exhibits no growth. 12/14/23 11:50 Blood Culture (Wb) - Right Forearm Blood Culture - Final No growth. 12/14/23 11:30 Blood Culture (Wb) - Anticubital Right Blood Culture - Final No growth. Physical Exam GI GI Narrative: Abdomen- soft, tender near incision site. Slightly more distended this morning. Air within the stoma bag and moderate amount of brown stool noted. Positive bowel sounds. Assessment & Plan Assessment/Plan (1) Sigmoid volvulus: (2) Bowel obstruction: QUALIFIERS: Intestinal obstruction type: volvulus Qualified Code(s): K56.2 - Volvulus PLAN: Plan I am following this patient in conjunction with Dr. Kirkland. He has also independently evaluated this patient. Patient overall improving well Plan to transfer patient to regular med/surg floor pending bed availability today KUB ordered to assess distention Plan to pull the Ayala later today pending no clots are continuing to be seen within the Ayala tubing and renal labs Labs pending Continue to encourage patient in the chair and ambulating Plan to give a dose of Lasix this morning We will continue to monitor this patient Charges/Coding Visit Charges Inpatient E&M: 73204 Subs Hosp L1 (no charge; post-op) 12/18/23 1006 <Electronically signed by Karin Dorantes PA PA-C> Cosigner Signature (if applicable): CC: ~ Signed [facility] Work Phone: 1(790) 818-923502-27-2024 Progress note Author Julia Ma [facility] December 17, 2023 1:48pm Note Date/Time December 17, 2023 8:01am [facility] Medical Records Department [address] [place] [address] Progress Note - Surgery 12/17/23 0756 MR#: [id number] Acct: [id number] Name: MAYNOR VIDES III Rep #:[id number] : 1945 78 From: Karin DELEON PA-C PCP: Dr. Sarika Montaño MD Status:ADM IN Location: ICU ICU02-1 Subjective Subjective Patient evaluated resting comfortably in bed. Patient notes tenderness at the incision site. He denies any true pain. Patient notes he was tolerating sips andchips without any nausea. Patient was transitioned to NPO around 4 pm yesterday.Patient is able to get his medication orally through jello. Per nursing patient's urine output has picked up and appears more clear. Objective Data Objective Data Vital Signs: Vital Signs Temp Pulse Resp BP Pulse Ox O2 Del Method O2 Flow Rate 99.6 F H 83 15 132/75 H 92 Room Air 2 12/17/23 07:00 12/17/23 07:00 12/17/23 07:00 12/17/23 07:00 12/17/23 07:00 12/17/23 07:00 12/16/23 05:00 FiO2 95 12/16/23 11:30 Oxygen Flow Rate (L/min) 2 Oxygen Delivery Method Room Air Weight: 199 lb 8.293 oz Body Mass Index (BMI) 28.5 Intake & Output: Intake and Output for Last 24 Hours 12/15/23 12/16/23 12/17/23 23:59 23:59 23:59 Intake Total 3844.92 / 3844.92 3114.83 / 3114.83 250 / 250 Output Total 1310 / 1310 1250 / 1250 700 / 700 Balance 2534.92 / 2534.92 1864.83 / 1864.83 -450 / -450 Lab / Micro Data 12/17/23 02:10 12/17/23 02:10 Labs: Laboratory Results - last 24 hr 12/13/23 12:40: Diff Path Review Reviewed 12/14/23 05:00: Diff Path Review Reviewed 12/16/23 03:20: Total Bilirubin 1.80 H, Direct Bilirubin 0.53 H, AST 19, ALT 21,Alkaline Phosphatase 38 L, Total Protein 4.6 L, Albumin 1.8 L, Globulin 2.8 12/17/23 02:10: WBC 11.3 H, RBC 3.62 L, Hgb 11.4 L, Hct 33.3 L, MCV 92.0, MCH 31.5, MCHC 34.2, RDW Std Deviation 49.6 H, RDW Coeff of Ann 14.7 H, Plt Count 196, MPV 10.2, Immature Gran % (Auto) 1.600 H, Neut % (Auto) 82.5 H, Lymph % (Auto) 5.8 L, [place] % (Auto) 9.6, Eos % (Auto) 0.1, Baso % (Auto) 0.4, Absolute Neuts (auto) 9.3 H, Absolute Lymphs (auto) 0.65 L, Nucleated RBC % 0, Differential Comment SCANNED, Sodium 139, Potassium 3.7, Chloride 110 H, Carbon Dioxide 25.0, Anion Gap 4 L, BUN 26 H, Creatinine 0.95, Estim Creat Clear Calc 73.54, Est GFR (MDRD) Af Amer 99, Est GFR (MDRD) Non-Af 82, BUN/Creatinine Ratio27.5 H, Glucose 131 H, Calcium 7.8 L, Phosphorus 1.6 L, Magnesium 2.0 Micro: Microbiology 12/14/23 13:52 Urine Catheter - Catheter Urine Culture - Final Culture exhibits no growth. 12/14/23 11:50 Blood Culture (Wb) - Right Forearm Blood Culture - Final No growth. 12/14/23 11:30 Blood Culture (Wb) - Anticubital Right Blood Culture - Final No growth. Physical Exam GI GI Narrative: Abdomen- soft, tenderness over top of the incision. Hypoactive bowel sounds throughout. Incision with dressing over top. No active bleeding noted. Ostomy intact with healthy, pink tissue throughout Assessment & Plan Assessment/Plan (1) Sigmoid volvulus: (2) Bowel obstruction: QUALIFIERS: Intestinal obstruction type: volvulus Qualified Code(s): K56.2 - Volvulus PLAN: Plan I am following this patient in conjunction with Dr. Ma in Dr. Kirkland's absence. Continue IV antibiotics Encourage patient to sit in the chair this morning Continue with Ayala in place Patient may transfer out of ICU from a surgical standpoint if medically stable We will place patient on sips and chips We will continue to monitor his patient Charges/Coding Visit Charges Inpatient E&M: 36775 Subs Hosp L1 (post-op; no charge) 12/17/23 0805 <Electronically signed by Karin DELEON PA-C> Cosigner Signature (if applicable): CC: ~ Signed ADDENDUM by Dr. Julia Ma MD on 12/17/23 at 1348 Addendum Agree with Karin Sullivan note. Patient seen and examined. Patient has good output from his ostomy. Will advance patient to full's also order him Ensure with high-protein. Patient does have orders in for transfer to the floor. 12/17/23 1348<Electronically signed by Julia Ma MD> Cosigner Signature (if applicable): cc: ~* Signed [facility] Work Phone: [phone]) 304-992202-27-2024 Consult note Author Eric Rankin [facility] December 17, 2023 11:42am Note Date/Time December 17, 2023 11:41am [facility] Medical Records Department [address] [place] [address] Pharmacokinetic/Renal -Consult 12/17/23 1141 MR#: [id number] Acct: [id number] Name: MAYNOR VIDES DANDRE Rep #:[id number] : 1945 78 From: Eric Peng [facility] PCP: Dr. Sarika Montaño MD Status:ADM IN Y Location: ICU ICU02- Consult Antibiotic Management Pharmacy has been consulted to manage selected antibiotic: Vancomycin Type of Intervention Type of Consult: Follow-up Suspected Infection Suspected Infection: Other Labs Labs: Sodium 139 mmol/L (136-145) 12/17/23 02:10 Potassium 3.7 mmol/L (3.5-5.1) 12/17/23 02:10 Chloride 110 mmol/L (98-107) H 12/17/23 02:10 Carbon Dioxide 25.0 mmol/L (21.0-32.0) 12/17/23 02:10 Anion Gap 4 (5-15) L 12/17/23 02:10 BUN 26 mg/dL (7-18) H 12/17/23 02:10 Creatinine 0.95 mg/dL (0.70-1.30) 12/17/23 02:10 Est GFR (MDRD) Af Amer 99 mL/min (>60) 12/17/23 02:10 Est GFR (MDRD) Non-Af 82 mL/min (>60) 12/17/23 02:10 BUN/Creatinine Ratio 27.5 RATIO (10-20) H 12/17/23 02:10 Glucose 131 mg/dL (74-106) H 12/17/23 02:10 Vancomycin Trough 17.1 ug/mL (5.0-15.0) H 12/17/23 10:15 Microbiology Microbiology: Microbiology 12/14/23 13:52 Urine Catheter - Catheter Urine Culture - Final Culture exhibits no growth. 12/14/23 11:50 Blood Culture (Wb) - Right Forearm Blood Culture - Final No growth. 12/14/23 11:30 Blood Culture (Wb) - Anticubital Right Blood Culture - Final No growth. Goal Trough Goal Trough: 15-20 mcg/mL Pharmacy Plan for Drug Dosing Pharmacy Plan for Drug Dosing: VANCOMYCIN LEVEL RECEIVED Current Vancomycin Dose: 1000mg q12h (00,12) Number of Doses Received: x3 of current dose Vancomycin Level: 17.1 Hours Since Last Dose: 10 hours since last dose Renal Function: SrCr 0.95 Renal Function Trend: SrCr improving (was 1.11 on 12/14) Lab/Micro: Vancomycin Plan/Comments: none Pending Level: 12/19/23 at 2330 Pharmacy Service will continue to monitor and adjust dosing as required. Follow-Up Labs Follow-Up Labs: Trough: Vancomycin (12/19/23 at 2330) 12/17/23 1142 <Electronically signed by Eric Villaseñor [facility]> Date _ Eric Rankin [facility] Cosigner Signature (if applicable): Date CC: ~ Signed [facility] Work Phone: 1([phone]) 557-242502-27-2024 Progress note Author Pito Nickerson [facility] December 17, 2023 8:43am Note Date/Time December 17, 2023 8:43am [facility] Medical Records Department [address] [place] [address] Progress Note - Hospitalist 12/17/23 0835 MR#: [id number] Acct: [id number] Name: MAYNOR VIDES III Rep #:[id number] : 1945 78 From: Pito العراقي PCP: Dr. Sarika Montaño MD Status:ADM IN Location: ICU ICU02-1 Reason for Visit Reason for Visit: Diagnoses Elevated white blood cell count, unspecified (12/13/23) Volvulus (12/13/23) Fever, unspecified (12/13/23) Objective Data Objective Data Vital Signs: Vital Signs Temp Pulse Resp BP Pulse Ox O2 Del Method O2 Flow Rate 99.6 F H 83 15 132/75 H 92 Room Air 2 12/17/23 07:00 12/17/23 07:00 12/17/23 07:00 12/17/23 07:00 12/17/23 07:00 12/17/23 07:00 12/16/23 05:00 FiO2 95 12/16/23 11:30 Oxygen Flow Rate (L/min) 2 Oxygen Delivery Method Room Air Weight: 199 lb 8.293 oz Body Mass Index (BMI) 28.5 Intake & Output: Intake and Output for Last 24 Hours 12/15/23 12/16/23 12/17/23 23:59 23:59 23:59 Intake Total 3844.92 / 3844.92 3114.83 / 3114.83 250 / 250 Output Total 1310 / 1310 1250 / 1250 700 / 700 Balance 2534.92 / 2534.92 1864.83 / 1864.83 -450 / -450 Lab / Micro Data 12/17/23 02:10 12/17/23 02:10 Labs: Laboratory Results - last 24 hr 12/13/23 12:40: Diff Path Review Reviewed 12/14/23 05:00: Diff Path Review Reviewed 12/16/23 03:20: Total Bilirubin 1.80 H, Direct Bilirubin 0.53 H, AST 19, ALT 21,Alkaline Phosphatase 38 L, Total Protein 4.6 L, Albumin 1.8 L, Globulin 2.8 12/17/23 02:10: WBC 11.3 H, RBC 3.62 L, Hgb 11.4 L, Hct 33.3 L, MCV 92.0, MCH 31.5, MCHC 34.2, RDW Std Deviation 49.6 H, RDW Coeff of Ann 14.7 H, Plt Count 196, MPV 10.2, Immature Gran % (Auto) 1.600 H, Neut % (Auto) 82.5 H, Lymph % (Auto) 5.8 L, [place] % (Auto) 9.6, Eos % (Auto) 0.1, Baso % (Auto) 0.4, Absolute Neuts (auto) 9.3 H, Absolute Lymphs (auto) 0.65 L, Nucleated RBC % 0, Differential Comment SCANNED, Sodium 139, Potassium 3.7, Chloride 110 H, Carbon Dioxide 25.0, Anion Gap 4 L, BUN 26 H, Creatinine 0.95, Estim Creat Clear Calc 73.54, Est GFR (MDRD) Af Amer 99, Est GFR (MDRD) Non-Af 82, BUN/Creatinine Ratio27.5 H, Glucose 131 H, Calcium 7.8 L, Phosphorus 1.6 L, Magnesium 2.0 Micro: Microbiology 12/14/23 13:52 Urine Catheter - Catheter Urine Culture - Final Culture exhibits no growth. 12/14/23 11:50 Blood Culture (Wb) - Right Forearm Blood Culture - Final No growth. 12/14/23 11:30 Blood Culture (Wb) - Anticubital Right Blood Culture - Final No growth. Physical Exam Narrative Seen and examined Low-grade fever. Tmax 100.4 Fahrenheit but currently afebrile. Patient making urine. Positive fluid balance. Patient has swelling in the legs and upper extremities. Abdominal distention better. Colostomy functioning with liquid feces. residential monitor shows sinus rhythm with occasional PVCs. Physical exam: General: Alert, Oriented x3, Cooperative but fatigued and weak HEENT: Atraumatic, PERRLA, EOMI, Normocephalic Oral: Oral mucosa moist. Neck: Supple, No JVD, Negative Carotid Bruits Chest wall/Lungs: Shallow breathing. Air entry diminished in bilateral lung bases. No crepitation/rhonchi Cardiovascular: Sinus rhythm, normal S1, Normal S2, No M/G/R. Abdomen:Soft, postop mild distention and tenderness surgical dressing dry. Bowel sounds sluggish. Colostomy functioning with liquid yellowish feces : Oliguria resolved. Ayala catheter. Slight yellowish urine. No dysuria. Norenal angle tenderness. No suprapubic tenderness. Extremities: Bilateral lower and upper extremity edema, Capillary Refill Less than 3 Seconds Skin: No rashes, No breakdown Musculoskeletal: No Tenderness to Palpation of Joints or Extremities. Moderate muscle rigidity at knee and hip joints. History of Parkinson disease Neurological: Cranial nerves II-XII grossly intact, DTR 2+/4. No acute focal neurological deficit. Psych/Mental Status: Flat affect. Assessment & Plan Assessment/Plan (1) Sigmoid volvulus: PLAN: Plan The patient is a 78 y/o M was admitted with sudden onset of Was admitted with sudden onset abdominal pain periumbilical and hypogastric in location, nausea vomiting, dark in color started 10 PM day before admission. No fever. Patient denies any prior history of bowel obstruction or abdominal pain like this. #1. Sigmoid volvulus, complicated with total colon distention, ileus and lacticacidosis with suspected colonic infection/colitis: Patient admitted under surgical service to the ICU after colonoscopy. Abdomen pelvis/CT was done priorto that. Shows mild distention of colon down to the region of sigmoid colon, upto 10 cm. Patient reported some passage of flatus. Has a rectal tube and NG tube. IV fluid 500 mL Ringer lactate ordered as patient did not had significanturine output. Heart rate and blood pressure are controlled. No fever. Discussed with the surgeon and plan to maintain on his current conservative measures to avoid total colectomy with high risk of surgery. Patient on IV PPI. Patient on IV Zosyn. Mild improvement in leukocytosis. Platelet count 214,000. Patient had colonoscopy on 12/13/2023. Sigmoid volvulus was found though colon prep was poor. Diverticulosis in RS colon and sigmoid colon. Partial decompression of volvulus achieved. No repeat colonoscopy recommended. Perioperative risk evaluation: Patient denies prior chronic cardiac or pulmonarydisease including ME, cardiac stent, angina, CHF or A-fib or valvular heart disease. Denies COPD. No prior history of smoking or nicotine use or chronic alcohol use. Patient has Parkinson disease but baseline musculoskeletal function unclear as patient is very sick now. Overall, patient is high risk. Incentive spirometry. 12/15: Patient is positive fluid balance about 5.6 L and heart rate in low 100s therefore decrease IV fluid to 75 mill per hour. Urine output is improving. Abdominal distention better but is still bowel sound slow. 12/16: Low-grade fever, Tmax 100.3 Fahrenheit, BP maintained, shallow breathing on 2 L of oxygen. Patient went for exploratory laparotomy, small bowel resection, 6 cm to jejunum was rejoined with stapled [id number] anastomosis , Repair of inadvertent small bowel enterotomy, sigmoid colectomy with creation ofend colostomy. Decrease IV fluid to 75 mill per hour. 12/17: 1100 mL urine output 850 mill and colostomy output yesterday and 500 mL at200 mL respectively today. Positive fluid balance about 8.6 L. Colostomy functioning. 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 Massively dilated sigmoid colon transitioning to decompressed/deeply adhered distal sigmoid colon within the pelvis #2. SARITHA on Chronic Kidney Disease Stage II : Most likely prerenal due to sigmoid volvulus/ileus and third space: Ayala catheterization. Strict intake and output. Admission BUN/creatinine 29/1.33, today BUN/creatinine 30/1.11 BUN/creatinine ratio is 27. UA shows positive nitrite, ketones 5, bilirubin 1 LE 25 WBC 0-5 cells, bacteria 0. Patient on IV antibiotics. 12/15: Creatinine 0.88. BUN 25. Kidney function improving and urine output alsoadequate. K3.5, phosphorus 2.3, hypophosphatemia. IV potassium phosphate ordered. 12/16: BUN/creatinine 31/1.21 little elevated, as compared to yesterday probably from surgical distress. Maintain adequat an effective volume. Serum magnesium more than 2 and phosphorus around 4.0 12/17: BUNs/creatinine 26/0.95. SARITHA resolved. Hypophosphatemia, phosphorus 1.6,magnesium 2.0. Potassium 3.7, bicarb 25; electrolytes otherwise normal range. Urine culture shows no growth. 3. Mild hyperbilirubinemia with normal transaminases, hyperbilirubinemia: Probably due to acute event of sigmoid volvulus ileus and possible secondary colon infection. Admission glucose 179. A1c 5.5 probably stress response hyperglycemia. Diabetes mellitus or prediabetes ruled out. 12/15: Improvement in total bilirubin 2.8. Transaminases and alkaline phosphatase normal. 12/16: Liver chemistry ordered 12/17: Improvement in TB 1.8, direct 0.5. Low ALP, hypoalbuminemia, albumin 1.8 from acute severe malnutrition. #4. Parkinson's disease: hold oral medications in view of ileus with impaired bowel absorption 12/15: Patient extremities are rigid therefore resume Sinemet and hold aspirationto get absorbed. #5. DVT Prophylaxis: Recommend at least SCDs, chemoprophylaxis per Surgery discretion. #6. CODE status: Patient BRIA is his daughter who is present and living will is currently in place. Discussed CODE status at length including difference between FULL code, DNR-CCA and DNR-CC status. Following discussions about the differences in these status, requested Full Code status. Advanced Care Charges/Coding Visit Charges Inpatient E&M: 91480 [facility] Hosp L3 12/17/23 0843 <Electronically signed by Pito Nickerson MD> Cosigner Signature (if applicable): CC: ~ Signed [facility] Work Phone: 1(752) 892-935402-26-2024 Procedure [facility] 12-16-2023 Progress note Author Sterling Iniguez [facility] December 16, 2023 10:17am Note Date/Time December 16, 2023 6:50am [facility] Medical Records Department [address] [facility] [place] [address] Progress Note - Database Management Specialist 12/16/23 0640 MR#: [id number] Acct: [id number] Name: MAYNOR VIDES III Rep #:[id number] : 1945 78 From: Sterling Iniguez MD PCP: Dr. Sarika Montaño MD Status:ADM IN Location: ICU ICU02-1 Assessment & Plan Assessment/Plan (1) Bowel obstruction: QUALIFIERS: Intestinal obstruction type: volvulus Qualified Code(s): K56.2 - Volvulus (2) Sigmoid volvulus: PLAN: Plan RECOMMENDATIONS: 1. Continue empiric antibiotics per surgery 2. Defer to surgery on removal of NG 3. Encourage incentive spirometer 4. Walking oximetry prior to discharge 5. Okay to leave the intensive care unit from my perspective 6. Hemodynamically stable on room air. Will sign off from a critical care perspective IMPRESSIONS: 1. Sigmoid volvulus with small bowel obstruction status post resection Patient with significant leukocytosis on presentation. Conservative measures were unsuccessful, so patient did go to surgery yesterday. Patient currently with a colostomy in 6 cm of small bowel resected. Patient does run the risk for translocation of gut bacteria. Cultures are currently pending. Patient is on broad-spectrum antibiotics per surgery/GI. Patient appears to be doing well with significant improvement in leukocytosis and fever following surgery. Currently, patient is hemodynamically stable on room air. Will sign off from a critical care perspective 2. Acute kidney injury on CKD stage III Creatinine significantly elevated today compared to previous. This is likely secondary to prerenal etiology. Clinical suspicion for improvement with optimization of hemodynamics. No indication for renal replacement therapy at this time. Consider discontinuation of IV fluids once patient is able to tolerate p.o. as he is starting to develop hyperchloremia. 3. Parkinson disease/advanced age Complicates care, management, recovery and prognosis. Okay to continue with baseline medications from my perspective. Patient does have ostomy output,so absorption would likely be sufficient. Continue with aggressive PT/OT to avoid debility. Subjective Subjective Patient did well overnight. No acute issues were reported. Patient did have surgical intervention yesterday resulting in a colostomy in 6 cm of small bowel removed. Patient has been weaned to room air. Patient already has some output out of his ostomy. Objective Data Objective Data Vital Signs: Vital Signs Temp Pulse Resp BP Pulse Ox O2 Del Method O2 Flow Rate 37.6 C H 102 H 15 126/76 H 97 Room Air 2 12/16/23 06:00 12/16/23 06:00 12/16/23 06:00 12/16/23 06:00 12/16/23 06:00 12/16/23 06:00 12/16/23 05:00 Oxygen Flow Rate (L/min) 2 Oxygen Delivery Method Room Air Weight: 90.1 kg Body Mass Index (BMI) 28.4 Intake & Output: Intake and Output for Last 24 Hours 12/14/23 12/15/23 12/16/23 23:59 23:59 23:59 Intake Total 5062.83 / 5062.83 3844.92 / 3844.92 200 / 200 Output Total 1600 / 1600 1310 / 1310 Balance 3462.83 / 3462.83 2534.92 / 2534.92 200 / 200 Lab / Micro Data Attestation: I reviewed the patient's lab results. 12/16/23 03:20 12/16/23 03:20 Labs: Laboratory Results - last 24 hr 12/15/23 23:10: Vancomycin Trough 14.8 12/16/23 03:20: WBC 12.1 H, RBC 4.13 L, Hgb 13.2, Hct 38.6 L, MCV 93.5, MCH 32.0, MCHC 34.2, RDW Std Deviation 51.0 H, RDW Coeff of Ann 14.7 H, Plt Count 204, MPV 10.8, Immature Gran % (Auto) 1.100 H, Neut % (Auto) 86.6 H, Lymph % (Auto) 4.0 L, [place] % (Auto) 8.1, Eos % (Auto) 0.0, Baso % (Auto) 0.2, Absolute Neuts (auto) 10.5 H, Absolute Lymphs (auto) 0.49 L, Nucleated RBC % 0, Sodium 138, Potassium 4.0, Chloride 108 H, Carbon Dioxide 24.0, Anion Gap 6, BUN 31 H, Creatinine 1.21, Estim Creat Clear Calc 52.79, Est GFR (MDRD) Af Amer 75, Est GFR (MDRD) Non-Af 62, BUN/Creatinine Ratio 25.6 H, Glucose 156 H, Calcium 7.5 L,Phosphorus 2.9, Magnesium 1.8 Radiography Diagnostic Testing: Radiology Impression KUB X-Ray 12/15/23 08:41 IMPRESSION: 1. Nasogastric tube with the tip left upper quadrant likely in the body the stomach. 2. Suspect rectal tube with tip in left upper quadrant likely in the splenic flexure. 3. No change in adynamic ileus. Electronically Signed: Janes Sneed MD at 9:56 EST Reading Location ID and State: [id number] / [place] Tel , Service support , Abdomen/Pelvis CT 12/15/23 09:33 IMPRESSION: 1. Moderate bilateral pleural effusions with bibasilar atelectasis. 2. Small amount of ascites 3. Nasogastric tube with the tip in the body the stomach. 4. Suspect adynamic ileus with some mildly dilated fluid-filled small bowel in the right side of the abdomen and moderately dilated colon with air-fluid levels despite a rectal tube near the splenic flexure. 5. Ayala catheter. 6. Electronically Signed: Janes Sneed MD at 11:20 EST Reading Location ID and State: [id number] / [place] Tel , Service support , Physical Exam Const alert and oriented x3 Constitutional Narrative: Resting comfortably on my evaluation HEENT normocephalic HEENT Narrative: NG in place Eyes PERRL and EOMs intact bilaterally Neck full ROM Chest inspection of chest normal Resp normal respiratory effort Auscultation: Negative for rales, rhonchi or wheezes Cardio regular rhythm, S1 normal heart sound, S2 normal heart sound, no murmurs, no ruband no gallops Rate: tachycardic GI GI Narrative: Slightly distended. No guarding noted. Incision is clean, dry and intact. Ostomy looks appropriate. Extremity no clubbing, cyanosis or edema Skin Skin Narrative: Incision is clean, dry and intact. Neuro CN's II-XII intact bilaterally and moves all extremities Psych cooperative Charges/Coding Visit Charges Inpatient E&M: 62359 Subs Hosp L2 12/16/23 1017 <Electronically signed by Sterling Iniguez MD> Cosigner Signature (if applicable): CC: ~ Signed [facility] Work Phone: 1(458) 164-754402-26-2024 Progress note Author Pito Nickerson [facility] December 16, 2023 8:14am Note Date/Time December 16, 2023 7:33am [facility] Medical Records Department [address] [place] [address] Progress Note - Hospitalist 12/16/23723 MR#: [id number] Acct: [id number] Name: MAYNOR VIDES III Rep #:[id number] : 1945 78 From: Pito العراقي PCP: Dr. Sarika Montaño MD Status:ADM IN Location: ICU ICU02-1 Reason for Visit Reason for Visit: Diagnoses Elevated white blood cell count, unspecified (12/13/23) Volvulus (12/13/23) Fever, unspecified (12/13/23) Objective Data Objective Data Vital Signs: Vital Signs Temp Pulse Resp BP Pulse Ox O2 Del Method O2 Flow Rate 99.6 F H 102 H 18 131/74 H 95 Room Air 2 12/16/23 06:58 12/16/23 06:58 12/16/23 06:58 12/16/23 06:58 12/16/23 06:58 12/16/23 06:58 12/16/23 05:00 Oxygen Flow Rate (L/min) 2 Oxygen Delivery Method Room Air Weight: 198 lb 10.184 oz Body Mass Index (BMI) 28.4 Intake & Output: Intake and Output for Last 24 Hours 12/14/23 12/15/23 12/16/23 23:59 23:59 23:59 Intake Total 5062.83 / 5062.83 3844.92 / 3844.92 1145.83 / 1145.83 Output Total 1600 / 1600 1310 / 1310 200 / 200 Balance 3462.83 / 3462.83 2534.92 / 2534.92 945.83 / 945.83 Lab / Micro Data 12/16/23 03:20 12/16/23 03:20 Labs: Laboratory Results - last 24 hr 12/15/23 23:10: Vancomycin Trough 14.8 12/16/23 03:20: WBC 12.1 H, RBC 4.13 L, Hgb 13.2, Hct 38.6 L, MCV 93.5, MCH 32.0, MCHC 34.2, RDW Std Deviation 51.0 H, RDW Coeff of Ann 14.7 H, Plt Count 204, MPV 10.8, Immature Gran % (Auto) 1.100 H, Neut % (Auto) 86.6 H, Lymph % (Auto) 4.0 L, [place] % (Auto) 8.1, Eos % (Auto) 0.0, Baso % (Auto) 0.2, Absolute Neuts (auto) 10.5 H, Absolute Lymphs (auto) 0.49 L, Nucleated RBC % 0, Sodium 138, Potassium 4.0, Chloride 108 H, Carbon Dioxide 24.0, Anion Gap 6, BUN 31 H, Creatinine 1.21, Estim Creat Clear Calc 52.79, Est GFR (MDRD) Af Amer 75, Est GFR (MDRD) Non-Af 62, BUN/Creatinine Ratio 25.6 H, Glucose 156 H, Calcium 7.5 L,Phosphorus 2.9, Magnesium 1.8 Radiography Diagnostic Testing: Radiology Impression KUB X-Ray 12/15/23 08:41 IMPRESSION: 1. Nasogastric tube with the tip left upper quadrant likely in the body the stomach. 2. Suspect rectal tube with tip in left upper quadrant likely in the splenic flexure. 3. No change in adynamic ileus. Electronically Signed: Janes Sneed MD at 9:56 EST Reading Location ID and State: [id number] / [place] Tel , Service support , Abdomen/Pelvis CT 12/15/23 09:33 IMPRESSION: 1. Moderate bilateral pleural effusions with bibasilar atelectasis. 2. Small amount of ascites 3. Nasogastric tube with the tip in the body the stomach. 4. Suspect adynamic ileus with some mildly dilated fluid-filled small bowel in the right side of the abdomen and moderately dilated colon with air-fluid levels despite a rectal tube near the splenic flexure. 5. Ayala catheter. 6. Electronically Signed: Janes Sneed MD at 11:20 EST , Physical Exam Narrative Seen and examined Low-grade fever. Tmax 100.8 Fahrenheit. Patient had about 1500 mL urine outputyesterday after catheterization and 300 admitted today. Positive fluid balance about 5.6 L. Patient has swelling in the legs and upper extremities. Abdominaldistention better. NG tube. residential monitor shows sinus rhythm with PVCs. Physical exam: General: Alert, Oriented x3, Cooperative but fatigued and weak HEENT: Atraumatic, PERRLA, EOMI, Normocephalic Oral: Oral mucosa dry. NG tube taken out, tiny NG output of greenish blackish color. Neck: Supple, No JVD, Negative Carotid Bruits Chest wall/Lungs: Shallow breathing. Air entry diminished in bilateral lung bases. No crepitation/rhonchi Cardiovascular: Sinus tachycardia, Normal S1, Normal S2, No M/G/R. Abdomen:Soft, postop distention and tenderness. Surgical dressing dry. Bowel sounds absent. : Oliguria. No dysuria. No renal angle tenderness. No suprapubic tenderness. Extremities: Bilateral lower and upper extremity edema, Capillary Refill Less than 3 Seconds Skin: No rashes, No breakdown Musculoskeletal: No Tenderness to Palpation of Joints or Extremities. Moderate muscle rigidity at knee and hip joints. History of Parkinson disease Neurological: Cranial nerves II-XII grossly intact, DTR 2+/4. No acute focal neurological deficit. Psych/Mental Status: Flat affect. Assessment & Plan Assessment/Plan (1) Sigmoid volvulus: PLAN: Plan The patient is a 78 y/o M was admitted with sudden onset of Was admitted with sudden onset abdominal pain periumbilical and hypogastric in location, nausea vomiting, dark in color started 10 PM day before admission. No fever. Patient denies any prior history of bowel obstruction or abdominal pain like this. #1. Sigmoid volvulus, complicated with total colon distention, ileus and lacticacidosis with suspected colonic infection/colitis: Patient admitted under surgical service to the ICU after colonoscopy. Abdomen pelvis/CT was done priorto that. Shows mild distention of colon down to the region of sigmoid colon, upto 10 cm. Patient reported some passage of flatus. Has a rectal tube and NG tube. IV fluid 500 mL Ringer lactate ordered as patient did not had significanturine output. Heart rate and blood pressure are controlled. No fever. Discussed with the surgeon and plan to maintain on his current conservative measures to avoid total colectomy with high risk of surgery. Patient on IV PPI. Patient on IV Zosyn. Mild improvement in leukocytosis. Platelet count 214,000. Patient had colonoscopy on 12/13/2023. Sigmoid volvulus was found though colon prep was poor. Diverticulosis in RS colon and sigmoid colon. Partial decompression of volvulus achieved. No repeat colonoscopy recommended. Perioperative risk evaluation: Patient denies prior chronic cardiac or pulmonarydisease including ME, cardiac stent, angina, CHF or A-fib or valvular heart disease. Denies COPD. No prior history of smoking or nicotine use or chronic alcohol use. Patient has Parkinson disease but baseline musculoskeletal function unclear as patient is very sick now. Overall, patient is high risk. Incentive spirometry. 12/15: Patient is positive fluid balance about 5.6 L and heart rate in low 100s therefore decrease IV fluid to 75 mill per hour. Urine output is improving. Abdominal distention better but is still bowel sound slow. 12/16: Low-grade fever, Tmax 100.3 Fahrenheit, BP maintained, shallow breathing on 2 L of oxygen. Patient went for exploratory laparotomy, small bowel resection, 6 cm to jejunum was rejoined with stapled qvic-lo-fvzy anastomosis , Repair of inadvertent small bowel enterotomy, sigmoid colectomy with creation ofend colostomy. Decrease IV fluid to 75 mill per hour. 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 Massively dilated sigmoid colon transitioning to decompressed/deeply adhereddistal sigmoid colon within the pelvis #2. SARITHA on Chronic Kidney Disease Stage II : Most likely prerenal due to sigmoid volvulus/ileus and third space: Ayala catheterization. Strict intake and output. Admission BUN/creatinine 29/1.33, today BUN/creatinine 30/1.11 BUN/creatinine ratio is 27. UA shows positive nitrite, ketones 5, bilirubin 1 LE 25 WBC 0-5 cells, bacteria 0. Patient on IV antibiotics. 12/15: Creatinine 0.88. BUN 25. Kidney function improving and urine output alsoadequate. K3.5, phosphorus 2.3, hypophosphatemia. IV potassium phosphate ordered. 12/16: BUN/creatinine 31/1.21 little elevated, as compared to yesterday probably from surgical distress. Maintain adequat an effective volume. Serum magnesium more than 2 and phosphorus around 4.0 3. Mild hyperbilirubinemia with normal transaminases, hyperbilirubinemia: Probably due to acute event of sigmoid volvulus ileus and possible secondary colon infection. Admission glucose 179. A1c 5.5 probably stress response hyperglycemia. Diabetes mellitus or prediabetes ruled out. 12/15: Improvement in total bilirubin 2.8. Transaminases and alkaline phosphatase normal. 12/16: Liver chemistry ordered #4. Parkinson's disease: hold oral medications in view of ileus with impaired bowel absorption 12/15: Patient extremities are rigid therefore resume Sinemet and hold aspirationto get absorbed. #5. DVT Prophylaxis: Recommend at least SCDs, chemoprophylaxis per Surgery discretion. #6. CODE status: Patient BRIA is his daughter who is present and living will is currently in place. Discussed CODE status at length including difference between FULL code, DNR-CCA and DNR-CC status. Following discussions about the differences in these status, requested Full Code status. Advanced Care Charges/Coding Visit Charges Inpatient E&M: 36709 Subs Hosp L3 12/16/2314 <Electronically signed by Pito Nickerson MD> Cosigner Signature (if applicable): CC: ~ Signed [facility] Work Phone: 1(650) 563-484002-26-2024 Progress note Author Surjit Kirkland [facility] December 16, 2023 8:10am Note Date/Time December 16, 2023 8:02am [facility] Medical Records Department [address] [place] [id number] Progress Note - Surgery 12/16/23 0802 MR#: [id number] Acct: [id number] Name: MAYNOR VIDES III Rep #:[id number] : 1945 78 From: Surjit العراقي PCP: Dr. Sarika Montaño MD Status:ADM IN Location: ICU ICU02-1 Subjective Subjective Patient seen and examined during AM rounds. He is found and initially sleeping in bed. Upon awakening he states that he cannot talk much as he is very dry andsore throat. He states that he has some tenderness but overall feels better. Nursing denies any acute events overnight and reports that patient's nasogastrictube output has been nil. Further they confirm that patient's Ayala catheter output has cleared Objective Data Objective Data Vital Signs: Vital Signs Temp Pulse Resp BP Pulse Ox O2 Del Method O2 Flow Rate 99.6 F H 102 H 18 131/74 H 94 Room Air 2 12/16/23 06:58 12/16/23 06:58 12/16/23 06:58 12/16/23 06:58 12/16/23 07:40 12/16/23 07:40 12/16/23 05:00 Oxygen Flow Rate (L/min) 2 Oxygen Delivery Method Room Air Weight: 198 lb 10.184 oz Body Mass Index (BMI) 28.4 Intake & Output: Intake and Output for Last 24 Hours 12/14/23 12/15/23 12/16/23 23:59 23:59 23:59 Intake Total 5062.83 / 5062.83 3844.92 / 3844.92 1145.83 / 1145.83 Output Total 1600 / 1600 1310 / 1310 200 / 200 Balance 3462.83 / 3462.83 2534.92 / 2534.92 945.83 / 945.83 Lab / Micro Data 12/16/23 03:20 12/16/23 03:20 Labs: Laboratory Results - last 24 hr 12/15/23 23:10: Vancomycin Trough 14.8 12/16/23 03:20: WBC 12.1 H, RBC 4.13 L, Hgb 13.2, Hct 38.6 L, MCV 93.5, MCH 32.0, MCHC 34.2, RDW Std Deviation 51.0 H, RDW Coeff of Ann 14.7 H, Plt Count 204, MPV 10.8, Immature Gran % (Auto) 1.100 H, Neut % (Auto) 86.6 H, Lymph % (Auto) 4.0 L, [place] % (Auto) 8.1, Eos % (Auto) 0.0, Baso % (Auto) 0.2, Absolute Neuts (auto) 10.5 H, Absolute Lymphs (auto) 0.49 L, Nucleated RBC % 0, Sodium 138, Potassium 4.0, Chloride 108 H, Carbon Dioxide 24.0, Anion Gap 6, BUN 31 H, Creatinine 1.21, Estim Creat Clear Calc 52.79, Est GFR (MDRD) Af Amer 75, Est GFR (MDRD) Non-Af 62, BUN/Creatinine Ratio 25.6 H, Glucose 156 H, Calcium 7.5 L,Phosphorus 2.9, Magnesium 1.8 Radiography Diagnostic Testing: Radiology Impression KUB X-Ray 12/15/23 08:41 IMPRESSION: 1. Nasogastric tube with the tip left upper quadrant likely in the body the stomach. 2. Suspect rectal tube with tip in left upper quadrant likely in the splenic flexure. 3. No change in adynamic ileus. Electronically Signed: Janes Sneed MD at 9:56 EST Reading Location ID and State: [id number] / [place] Tel , Service support , Abdomen/Pelvis CT 12/15/23 09:33 IMPRESSION: 1. Moderate bilateral pleural effusions with bibasilar atelectasis. 2. Small amount of ascites 3. Nasogastric tube with the tip in the body the stomach. 4. Suspect adynamic ileus with some mildly dilated fluid-filled small bowel in the right side of the abdomen and moderately dilated colon with air-fluid levels despite a rectal tube near the splenic flexure. 5. Ayala catheter. 6. Electronically Signed: Janes Sneed MD at 11:20 EST , Physical Exam Const oriented x3 Constitutional Narrative: In mild distress primarily from nasogastric tube Resp normal respiratory effort GI GI Narrative: Mildly distended, operative dressing intact beneath Tegaderms with minimal cleardrainage, colostomy in left upper quadrant is overall well-perfused and with some thin stool exiting into the ostomy appliance. Mild tenderness with palpation Bladder / Kidney Exam: catheter in place urethral (Draining faint blood-tinged urine (improved)) Assessment & Plan Assessment/Plan (1) Sigmoid volvulus: PLAN: Patient is a 78-year-old male, with past medical history of Parkinson's, who presents with a 17-hour history of acute onset abdominal pain and nausea/vomiting. Diagnostic workup shows evidence of sigmoid volvulus. He is status post endoscopic colonic decompression with gastroenterology 12/13/23. However, the significant stool burden precluded complete decompression of the colon but arectal tube was left in place proximal to the area of volvulus. Despite some clinical improvements?including significant drop in patient's WBC?patient displayed more abdominal distention and some shifting tenderness on exam. He also reported less flatus so a KUB followed by repeat CT imaging of the abdomen pelvis was obtained. This showed persistent distention of the colondespite a appropriately?placed rectal tube. I thus became concerned for either clogging of the rectal tube or persistent bowel obstruction due to another cause. Based on this suspicion patient was taken to the operating room for exploratory laparotomy yesterday. Through a long investigation and operation patient was found to have a number of issues including dense small bowel adhesions (versus fistula a) to the colon as well as a inflammatory stricture ofthe sigmoid colon. Inflammation was so dense that we were unable to fully dissect the sigmoid colon free of its attachments to the pelvis but were able toget the only dilated segments and transected the colon at this point. A markedly dilated segment of sigmoid colon was resected and the remainder was brought out as an end colostomy. Neuro: As needed Dilaudid, add as needed Chloraseptic Pulm/CV: Close monitoring of patient's respiratory and hemodynamic statuses. Patient again mildly anasarcic and hospitalist service has decreased IV fluid rate since urine output has been adequate. Patient could be sat out of bed in achair to optimize his respiratory status FEN/GI: Continue close monitoring of electrolytes during n.p.o. status, patient requires slight repletion of his magnesium today, patient's creatinine is now within normal limits, nasogastric tube removed at bedside today and will approvepatient for ice chips, Protonix, rectal tube discontinued yesterday, wound and ostomy nursing consult : Ayala catheter for strict ARINA monitoring?continue to monitor for clots Heme/ID: Continue to trend CBC, continue empiric IV Zosyn and bank, follow-up urine culture and blood cultures, azithromycin added by GI to try to stimulate peristalsis Endo: Continue glucose monitoring during limited nutritional state Proph: SCDs Dispo: Continue inpatient ICU care for now but patient may be eligible for transfer out of the ICU later this afternoon if he remains clinically stable Charges/Coding Visit Charges Inpatient E&M: 21047 Subs Hosp L2 12/16/23 0810 <Electronically signed by Surjit Kirkland MD> Cosigner Signature (if applicable): CC: ~ Signed [facility] Work Phone: 1([phone]) 813-265602-26-2024 Consult note Author Carlos Montejo [facility] December 16, 2023 12:53am Note Date/Time December 16, 2023 12:54am [facility] Medical Records Department [address] [place] [address] Pharmacokinetic/Renal -Consult 12/16/23 0053 MR#: [id number] Acct: [id number] Name: MAYNOR VIDES III Rep #:[id number] : 1945 78 From: Carlos Barbosa od PCP: Dr. Sarika Montaño MD Status:ADM IN Y Location: ICU ICU02-1 Consult Antibiotic Management Pharmacy has been consulted to manage selected antibiotic: Vancomycin Type of Intervention Type of Consult: Follow-up Labs Labs: Sodium 136 mmol/L (136-145) 12/15/23 05:05 Potassium 3.5 mmol/L (3.5-5.1) 12/15/23 05:05 Chloride 105 mmol/L (98-107) 12/15/23 05:05 Carbon Dioxide 25.0 mmol/L (21.0-32.0) 12/15/23 05:05 Anion Gap 6 (5-15) 12/15/23 05:05 BUN 25 mg/dL (7-18) H 12/15/23 05:05 Creatinine 0.88 mg/dL (0.70-1.30) 12/15/23 05:05 Est GFR (MDRD) Af Amer 108 mL/min (>60) 12/15/23 05:05 Est GFR (MDRD) Non-Af 89 mL/min (>60) 12/15/23 05:05 BUN/Creatinine Ratio 28.4 RATIO (10-20) H 12/15/23 05:05 Glucose 110 mg/dL (74-106) H 12/15/23 05:05 Vancomycin Trough 14.8 ug/mL (5.0-15.0) 12/15/23 23:10 Goal Trough Goal Trough: 15-20 mcg/mL Pharmacy Plan for Drug Dosing Pharmacy Plan for Drug Dosing: Pharmacy Service will continue to monitor and adjust dosing as required. TROUGH 14.8 @ 11 HOURS. INCREASE TO 1GM Q12H AND FOLLOW UP TROUGH PRIOR TO 4TH DOSE Follow-Up Labs Follow-Up Labs: Trough: Vancomycin Date/Time Labs Ordered Labs to be done on [date and time ordered]: 12/17 @ 1130 12/16/23 0053 <Electronically signed by Carlos melo> Date _ Carlos Montejo Cosigner Signature (if applicable): Date CC: ~ Signed [facility] Work Phone: 1(214) 326-473302-25-2024 Consult note Author Noman Chen [facility] December 15, 2023 4:28pm Note Date/Time December 14, 2023 1:06pm [facility] Medical Records Department [address] [place] [address] Pharmacokinetic/Renal -Consult 12/14/23 1306 MR#: [id number] Acct: [id number] Name: MAYNOR VIDES DANDRE Rep #:[id number] : 1945 78 From: Yani Murdock PCP: Dr. Sarika Montaño MD Status:ADM IN Location: ICU ICU02-1 Consult Antibiotic Management Pharmacy has been consulted to manage selected antibiotic: Vancomycin Type of Intervention Type of Consult: New start Labs Labs: Sodium 134 mmol/L (136-145) L 12/14/23 05:00 Potassium 3.8 mmol/L (3.5-5.1) 12/14/23 05:00 Chloride 102 mmol/L (98-107) 12/14/23 05:00 Carbon Dioxide 27.0 mmol/L (21.0-32.0) 12/14/23 05:00 Anion Gap 5 (5-15) 12/14/23 05:00 BUN 30 mg/dL (7-18) H 12/14/23 05:00 Creatinine 1.11 mg/dL (0.70-1.30) 12/14/23 05:00 Est GFR (MDRD) Af Amer 83 mL/min (>60) 12/14/23 05:00 Est GFR (MDRD) Non-Af 68 mL/min (>60) 12/14/23 05:00 BUN/Creatinine Ratio 27.0 RATIO (10-20) H 12/14/23 05:00 Glucose 130 mg/dL (74-106) H 12/14/23 05:00 Pharmacy Plan for Drug Dosing Pharmacy Plan for Drug Dosing: NEW START IV VANCOMYCIN Consulting Physician: Friend Indication: sbo/bowel infection Goal Trough: 15-20 mg/dL SrCr: 1.11 mg/dL CrCl: 57 mL/min Comments: had loading dose of 2000mg 12/14 @ 1201 Vancomycin Dose: Will start 750mg q12 @ 0000 (12/15) and get a trough prior to 4th total dose per policy. Pending Level: 12/15/23 @ 2330 Pharmacy Service will continue to monitor and adjust dosing as required. 12/14/23 1309 <Electronically signed by Yani Murdock> Date _ Yani Murdock 12/15/23 1628 <Electronically signed by Noman العراقي DO> Cosigner Signature (if applicable): Date Noman Chen DO CC: ~ Signed [facility] Work Phone: 1(185) 525-332502-25-2024 Progress note Author Shahid Baumann [facility] December 15, 2023 1:31pm Note Date/Time December 15, 2023 1:07pm [facility] Medical Records Department [address] [place] [address] Progress Note - Database Management Specialist 12/15/23 1307 MR#: [id number] Acct: [id number] Name: MAYNOR VIDES III Rep #:[id number] : 1945 78 From: Shahid العراقي PCP: Dr. Sarika Montaño MD Status:ADM IN Location: ICU ICU02-1 Objective Data Objective Data Vital Signs: Vital Signs Last response Temperature 37.4 C H 12/15/23 10:00 Temperature Source Core 12/15/23 10:00 Pulse Rate 91 12/15/23 10:00 Pulse Strength Normal (2+) 12/15/23 10:00 Respiratory Rate 16 12/15/23 10:00 Respiratory Effort Normal, Non-Labored 12/15/23 04:00 Respiratory Depth Normal 12/15/23 04:00 Respiratory Pattern Normal 12/15/23 04:00 Blood Pressure 154/99 H 12/15/23 10:00 Blood Pressure Mean 117 12/15/23 10:00 Blood Pressure Source Monitor 12/15/23 10:00 Blood Pressure Position Semi-Fowlers 12/15/23 10:00 Blood Pressure Location Left Arm 12/15/23 10:00 Pulse Ox 96 12/15/23 10:00 Oxygen Delivery Method Room Air 12/15/23 10:00 Oxygen Flow Rate (L/min) 2 12/14/23 23:00 I&O: I&O Last 24 Hours 12/14/23 12/15/23 12/15/23 23:59 11:59 23:59 Intake Total 3243.66 / 5062.83 1793.67 / 1793.67 Output Total 1250 / 1600 380 / 380 Balance 1993.66 / 3462.83 1413.67 / 1413.67 I&O: Total Stay 12/13/23 11:55 thru 12/15/23 11:29 Intake Total 8211.50 Output Total 2130 Balance 6081.50 Current Meds Ordered / Administered: Current meds ordered / Administered Generic Name Dose Route Start Last Admin Trade Name Freq PRN Reason Stop Dose Admin Amantadine HCl 100 mg 12/14/23 10:00 12/15/23 11:30 Amantadine 100 Mg Capsule PO Not Given DAILY GAURI Carbidopa/Levodopa 1 tablet 12/14/23 11:00 12/14/23 19:27 Carbidopa/Levodopa 25/100 Tablet PO Not Given 1100,1600 GAURI Carbidopa/Levodopa 1.5 tablet 12/14/23 08:00 12/15/23 08:42 Carbidopa/Levodopa 25/100 Tablet PO Not Given 0800 GAURI Carbidopa/Levodopa 0.5 tablet 12/13/23 22:00 12/14/23 21:52 Carbidopa/Levodopa Cr 50/200 Tablet PO Not Given QHS GAURI Hydromorphone HCl 0.5 mg 12/13/23 16:11 Hydromorphone 0.5 Mg/0.5 Ml Syringe IV Q4H PRN PRN Pain Score 6-10 Sodium Chloride 1,000 mls @ 15 mls/hr 12/13/23 16:10 12/15/23 05:13 IV 0 mls/hr .Q48H GAURI Infusion Lactated Ringer's 1,000 mls @ 125 mls/hr 12/13/23 16:15 12/15/23 11:34 IV Not Given .Q8H GAURI Sodium Chloride 250 mls @ 15 mls/hr 12/13/23 20:37 IV .[id number] PRN Additional IVPB Infusion Sodium Chloride 250 mls @ 15 mls/hr 12/13/23 20:37 IV .[id number] PRN Saline Flush Piperacillin Sod/Tazobactam 50 mls @ 12.5 mls/hr 12/13/23 22:00 12/15/23 09:15 Sod 3.375 gm/ Sodium Chloride IV Infused Q8 GAURI Infusion Azithromycin 500 mg/ Dextrose 255 mls @ 250 mls/hr 12/13/23 22:00 12/14/23 22:57 IV Infused Q24H GAURI Infusion Pantoprazole Sodium 40 mg/ 110 mls @ 330 mls/hr 12/14/23 01:00 12/15/23 08:42 Sodium Chloride IV Infused Q24 GAURI Infusion Vancomycin IV-PHARMACY TO DOSE 500 mls @ 250 mls/hr 12/14/23 11:44 1 each/ Sodium Chloride IV X1 PRN Rx to Dose Protocol Vancomycin HCl 750 mg/ Sodium 265 mls @ 250 mls/hr 12/15/23 00:00 12/15/23 12:09 Chloride IV 250 mls/hr Q12H GAURI Administration Ondansetron HCl 4 mg 12/13/23 16:11 Ondansetron 4 Mg/2 Ml Vial IV Q6H PRN PRN NAUSEA/VOMITING Phenol/Menthol 3 spray 12/14/23 08:11 12/14/23 09:36 Phenol/Sodium Phenolate 180ml MUCOUS MEM 3 spray Q2H PRN PRN Administration SORE THROAT Sodium Chloride 10 - 40 ml 12/13/23 20:37 12/14/23 01:53 0.9% Saline Lock 10 Ml Syringe IV 20 ml UD PRN Administration SALINE FLUSH Vancomycin Protocol 1 lab 12/15/23 21:30 Vancomycin Trough/Random Due MC 12/16/23 01:30 DAILY [facility] Lab / Micro Data 12/15/23 05:05 12/15/23 05:05 Labs: Laboratory Results - last 24 hr 12/15/23 05:05: WBC 16.2 H, RBC 4.58 L, Hgb 14.1, Hct 42.0, MCV 91.7, MCH 30.8, MCHC 33.6, RDW Std Deviation 48.9 H, RDW Coeff of Ann 14.5, Plt Count 188, MPV 10.5, Immature Gran % (Auto) 1.400 H, Neut % (Auto) 87.3 H, Lymph % (Auto) 3.0 L,[place] % (Auto) 7.0, Eos % (Auto) 0.7, Baso % (Auto) 0.6, Absolute Neuts (auto) 14.1 H, Absolute Lymphs (auto) 0.49 L, Nucleated RBC % 0, Differential Comment SCANNED, Sodium 136, Potassium 3.5, Chloride 105, Carbon Dioxide 25.0, Anion Gap6, BUN 25 H, Creatinine 0.88, Estim Creat Clear Calc 72.59, Est GFR (MDRD) Af Amer 108, Est GFR (MDRD) Non-Af 89, BUN/Creatinine Ratio 28.4 H, Glucose 110 H, Calcium 8.0 L, Phosphorus 2.3 L, Magnesium 1.9, Total Bilirubin 2.80 H, AST 28, ALT 30, Alkaline Phosphatase 56, Total Protein 5.6 L, Albumin 2.5 L, Globulin 3.1, Albumin/Globulin Ratio 0.8 L Imaging Radiology Impression KUB X-Ray 12/15/23 08:41 IMPRESSION: 1. Nasogastric tube with the tip left upper quadrant likely in the body the stomach. 2. Suspect rectal tube with tip in left upper quadrant likely in the splenic flexure. 3. No change in adynamic ileus. Electronically Signed: Janes Sneed MD at 9:56 EST , Abdomen/Pelvis CT 12/15/23 09:33 IMPRESSION: 1. Moderate bilateral pleural effusions with bibasilar atelectasis. 2. Small amount of ascites 3. Nasogastric tube with the tip in the body the stomach. 4. Suspect adynamic ileus with some mildly dilated fluid-filled small bowel in the right side of the abdomen and moderately dilated colon with air-fluid levels despite a rectal tube near the splenic flexure. 5. Ayala catheter. 6. Electronically Signed: Janes Sneed MD at 11:20 EST , Assessment and Plan . Assessment and plan: 78 yo man admitted 12/13/23 w/ severe abdominal pain and obstipation. CT A/P concerning for sigmoid volvulus. He has been evaluated by GI and surgery. He has undergone colonoscopy w/ attempted decompression. This has been performed w/ partial decompression achieved at the time of procedure. Since that time, abdominal pain improved. NGT o/p has decreased. LA now WNL. No stool per rectal tube as of yet. He appears ill but not distressed. Low grade fever. HD stable. UOP adequate currently. Abdomen distended a bit. KUB reveals less distended bowel. 12/15/23 Surgery opinion noted Planned operative intervention today PHYSICAL EXAM GEN NAD VS as above HEENT NGT NECK supple COR RRR CHEST CTA ABD soft, distended, quiet EXT no edema SKIN w/d RAFAEL NF ASSESSMENT 1. Sigmoid volvulus w/ partial obstruction 2. Low grade fever w/ leukocytosis 3. Hematuria 4. Improved lactic acidosis TREATMENT PLAN -continue crystalloid -receiving empiric ABX -NGT ILWS -hold all A/C -GI and surgery following - to OR today Critical Care Time: 50 min The entirety of this encounter was done via Telemedicine 12/15/23 1331 <Electronically signed by Shahid Baumann MD> Cosigner Signature (if applicable): CC: ~ Signed [facility] Work Phone: [phone]) 900-886902-25-2024 Progress note Author Pito Nickerson [facility] December 15, 2023 1:07pm Note Date/Time December 15, 2023 8:33am [facility] Medical Records Department [address] [place] [address] Progress Note - Hospitalist 12/15/23825 MR#: [id number] Acct: [id number] Name: MAYNOR VIDES III Rep #:[id number] : 1945 78 From: Pito العراقي PCP: Dr. Sarika Montaño MD Status:ADM IN Location: ICU ICU02-1 Reason for Visit Reason for Visit: Diagnoses Elevated white blood cell count, unspecified (12/13/23) Volvulus (12/13/23) Fever, unspecified (12/13/23) Objective Data Objective Data Vital Signs: Vital Signs Temp Pulse Resp BP Pulse Ox O2 Del Method O2 Flow Rate 99.7 F H 94 19 H 160/100 H 96 Room Air 2 12/15/23 04:00 12/15/23 07:00 12/15/23 07:00 12/15/23 07:00 12/15/23 07:20 12/15/23 07:20 12/14/23 23:00 Oxygen Flow Rate (L/min) 2 Oxygen Delivery Method Room Air Weight: 191 lb 5.78 oz Body Mass Index (BMI) 27.4 Intake & Output: Intake and Output for Last 24 Hours 12/13/23 12/14/23 12/15/23 23:59 23:59 23:59 Intake Total 1355 / 1375 5062.83 / 5062.83 1378.67 / 1378.67 Output Total 150 / 250 1600 / 1600 380 / 380 Balance 1205 / 1125 3462.83 / 3462.83 998.67 / 998.67 Lab / Micro Data 12/15/23 05:05 12/15/23 05:05 Labs: Laboratory Results - last 24 hr 12/14/23 11:00: Hgb 13.6, Hct 39.0 L 12/14/23 11:50: ESR 11, Lactic Acid 1.3, C-React Prot Ext Range 176.00 H 12/15/23 05:05: WBC 16.2 H, RBC 4.58 L, Hgb 14.1, Hct 42.0, MCV 91.7, MCH 30.8, MCHC 33.6, RDW Std Deviation 48.9 H, RDW Coeff of Ann 14.5, Plt Count 188, MPV 10.5, Immature Gran % (Auto) 1.400 H, Neut % (Auto) 87.3 H, Lymph % (Auto) 3.0 L, [place] % (Auto) 7.0, Eos % (Auto) 0.7, Baso % (Auto) 0.6, Absolute Neuts (auto) 14.1 H, Absolute Lymphs (auto) 0.49 L, Nucleated RBC % 0, Differential Comment SCANNED, Sodium 136, Potassium 3.5, Chloride 105, Carbon Dioxide 25.0, Anion Gap6, BUN 25 H, Creatinine 0.88, Estim Creat Clear Calc 72.59, Est GFR (MDRD) Af Amer 108, Est GFR (MDRD) Non-Af 89, BUN/Creatinine Ratio 28.4 H, Glucose 110 H, Calcium 8.0 L, Phosphorus 2.3 L, Magnesium 1.9, Total Bilirubin 2.80 H, AST 28, ALT 30, Alkaline Phosphatase 56, Total Protein 5.6 L, Albumin 2.5 L, Globulin 3.1, Albumin/Globulin Ratio 0.8 L Radiography Diagnostic Testing: Radiology Impression KUB X-Ray 12/14/23 06:10 IMPRESSION: 1. Nasogastric tube with the tip in the region of the stomach. 2. Slightly improved gas pattern. Electronically Signed: Elder Taveras MD at 9:43 EST , Physical Exam Narrative Seen and examined Low-grade fever. Tmax 100.8 Fahrenheit. Patient had about 1500 mL urine outputyesterday after catheterization and 300 admitted today. Positive fluid balance about 5.6 L. Patient has swelling in the legs and upper extremities. Abdominaldistention better. Patient has NG tube and rectal tube residential monitor shows sinus rhythm with PVCs. Physical exam: General: Alert, Oriented x3, Cooperative but fatigued and weak HEENT: Atraumatic, PERRLA, EOMI, Normocephalic Oral: Oral mucosa dry. NG tube present. Dark black color aspirate. Neck: Supple, No JVD, Negative Carotid Bruits Chest wall/Lungs: Air entry diminished in bilateral lung bases. No crepitation/rhonchi Cardiovascular: Regular rate, Regular Rhythm, Normal S1, Normal S2, No M/G/R. Abdomen:Soft, distended. Mild tenderness present over left lower quadrant. Bowel sound estrella pitch and very slow. Rectal tube present. : Oliguria. No dysuria. No renal angle tenderness. No suprapubic tenderness. Extremities: Bilateral leg and upper extremity edema, Capillary Refill Less than3 Seconds Skin: No rashes, No breakdown Musculoskeletal: No Tenderness to Palpation of Joints or Extremities. Moderate muscle rigidity at knee and hip joints. History of Parkinson disease Neurological: Cranial nerves II-XII grossly intact, DTR 2+/4. No acute focal neurological deficit. Psych/Mental Status: Flat affect. Assessment & Plan Assessment/Plan (1) Sigmoid volvulus: PLAN: Plan The patient is a 78 y/o M was admitted with sudden onset of Was admitted with sudden onset abdominal pain periumbilical and hypogastric in location, nausea vomiting, dark in color started 10 PM day before admission. No fever. Patient denies any prior history of bowel obstruction or abdominal pain like this. #1. Sigmoid volvulus, complicated with total colon distention, ileus and lacticacidosis with suspected colonic infection/colitis: Patient admitted under surgical service to the ICU after colonoscopy. Abdomen pelvis/CT was done priorto that. Shows mild distention of colon down to the region of sigmoid colon, upto 10 cm. Patient reported some passage of flatus. Has a rectal tube and NG tube. IV fluid 500 mL Ringer lactate ordered as patient did not had significanturine output. Heart rate and blood pressure are controlled. No fever. Discussed with the surgeon and plan to maintain on his current conservative measures to avoid total colectomy with high risk of surgery. Patient on IV PPI. Patient on IV Zosyn. Mild improvement in leukocytosis. Platelet count 214,000. Patient had colonoscopy on 12/13/2023. Sigmoid volvulus was found though colon prep was poor. Diverticulosis in RS colon and sigmoid colon. Partial decompression of volvulus achieved. No repeat colonoscopy recommended. Perioperative risk evaluation: Patient denies prior chronic cardiac or pulmonarydisease including ME, cardiac stent, angina, CHF or A-fib or valvular heart disease. Denies COPD. No prior history of smoking or nicotine use or chronic alcohol use. Patient has Parkinson disease but baseline musculoskeletal function unclear as patient is very sick now. Overall, patient is high risk. Incentive spirometry. 12/15: Patient is positive fluid balance about 5.6 L and heart rate in low 100s therefore decrease IV fluid to 75 mill per hour. Urine output is improving. Abdominal distention better but is still bowel sound slow. #2. SARITHA on Chronic Kidney Disease Stage II : Most likely prerenal due to sigmoid volvulus/ileus and third space: Ayala catheterization. Strict intake and output. Admission BUN/creatinine 29/1.33, today BUN/creatinine 30/1.11 BUN/creatinine ratio is 27. UA shows positive nitrite, ketones 5, bilirubin 1 LE 25 WBC 0-5 cells, bacteria 0. Patient on IV antibiotics. 12/15: Creatinine 0.88. BUN 25. Kidney function improving and urine output alsoadequate. K3.5, phosphorus 2.3, hypophosphatemia. IV potassium phosphate ordered. 3. Mild hyperbilirubinemia with normal transaminases, hyperbilirubinemia: Probably due to acute event of sigmoid volvulus ileus and possible secondary colon infection. Admission glucose 179. A1c 5.5 probably stress response hyperglycemia. Diabetes mellitus or prediabetes ruled out. 12/15: Improvement in total bilirubin 2.8. Transaminases and alkaline phosphatase normal. #4. Parkinson's disease: hold oral medications in view of ileus with impaired bowel absorption 12/15: Patient extremities are rigid therefore resume Sinemet and hold aspirationto get absorbed. #5. DVT Prophylaxis: Recommend at least SCDs, chemoprophylaxis per Surgery discretion. #6. CODE status: Patient BRIA is his daughter who is present and living will is currently in place. Discussed CODE status at length including difference between FULL code, DNR-CCA and DNR-CC status. Following discussions about the differences in these status, requested Full Code status. Advanced Care Charges/Coding Visit Charges Inpatient E&M: 83635 Subs Hosp L3 12/15/23 0833 <Electronically signed by Pito Nickerson MD> Cosigner Signature (if applicable): CC: ~ Signed ADDENDUM by Dr. Pito Nickerson MD on 12/15/23 at 1307 Addendum Mild tenderness present over left upper and left lower quadrants. Surgery note reviewed. Plan for taking for surgery. 12/15/23 1307<Electronically signed by Pito Nickerson MD> Cosigner Signature (if applicable): cc: ~* Signed [facility] Work Phone: [phone] 512-417802-25-2024 Progress note Author Surjit Kirkland [facility] December 15, 2023 11:15am Note Date/Time December 15, 2023 9:16am [facility] Medical Records Department [address] [place] [address] Progress Note - Surgery 12/15/23908 MR#: [id number] Acct: [id number] Name: MAYNOR VIDES III Rep #:[id number] : 1945 78 From: Surjit العراقي PCP: Dr. Sarika Montaño MD Status:ADM IN Location: ICU ICU02-1 Subjective Subjective Patient seen and examined during AM rounds. He is found resting in bed. He complains of a dry/sore throat but otherwise denies significant complaints. He later remarks that he does seem to have slowed down on passage of gas. Objective Data Objective Data Vital Signs: Vital Signs Temp Pulse Resp BP Pulse Ox O2 Del Method O2 Flow Rate 99.7 F H 94 19 H 160/100 H 96 Room Air 2 12/15/23 04:00 12/15/23 07:00 12/15/23 07:00 12/15/23 07:00 12/15/23 07:20 12/15/23 07:20 12/14/23 23:00 Oxygen Flow Rate (L/min) 2 Oxygen Delivery Method Room Air Weight: 191 lb 5.78 oz Body Mass Index (BMI) 27.4 Intake & Output: Intake and Output for Last 24 Hours 12/13/23 12/14/23 12/15/23 23:59 23:59 23:59 Intake Total 1355 / 1375 5062.83 / 5062.83 1488.67 / 1488.67 Output Total 150 / 250 1600 / 1600 380 / 380 Balance 1205 / 1125 3462.83 / 3462.83 1108.67 / 1108.67 Lab / Micro Data 12/15/23 05:05 12/15/23 05:05 Labs: Laboratory Results - last 24 hr 12/14/23 11:00: Hgb 13.6, Hct 39.0 L 12/14/23 11:50: ESR 11, Lactic Acid 1.3, C-React Prot Ext Range 176.00 H 12/15/23 05:05: WBC 16.2 H, RBC 4.58 L, Hgb 14.1, Hct 42.0, MCV 91.7, MCH 30.8, MCHC 33.6, RDW Std Deviation 48.9 H, RDW Coeff of Ann 14.5, Plt Count 188, MPV 10.5, Immature Gran % (Auto) 1.400 H, Neut % (Auto) 87.3 H, Lymph % (Auto) 3.0 L, [place] % (Auto) 7.0, Eos % (Auto) 0.7, Baso % (Auto) 0.6, Absolute Neuts (auto) 14.1 H, Absolute Lymphs (auto) 0.49 L, Nucleated RBC % 0, Differential Comment SCANNED, Sodium 136, Potassium 3.5, Chloride 105, Carbon Dioxide 25.0, Anion Gap6, BUN 25 H, Creatinine 0.88, Estim Creat Clear Calc 72.59, Est GFR (MDRD) Af Amer 108, Est GFR (MDRD) Non-Af 89, BUN/Creatinine Ratio 28.4 H, Glucose 110 H, Calcium 8.0 L, Phosphorus 2.3 L, Magnesium 1.9, Total Bilirubin 2.80 H, AST 28, ALT 30, Alkaline Phosphatase 56, Total Protein 5.6 L, Albumin 2.5 L, Globulin 3.1, Albumin/Globulin Ratio 0.8 L Radiography Diagnostic Testing: Radiology Impression KUB X-Ray 12/14/23 06:10 IMPRESSION: 1. Nasogastric tube with the tip in the region of the stomach. 2. Slightly improved gas pattern. Electronically Signed: Elder Taveras MD at 9:43 EST , Physical Exam Const oriented x3 and no apparent distress Resp normal respiratory effort GI GI Narrative: Nasogastric tube with nominal thin brown output, abdomen is more distended and tympanitic today. Patient describes some mild tenderness with palpation in the right upper quadrant. Assessment & Plan Assessment/Plan (1) Sigmoid volvulus: PLAN: Patient is a 78-year-old male, with past medical history of Parkinson's, who presents with a 17-hour history of acute onset abdominal pain and nausea/vomiting. Diagnostic workup shows evidence of sigmoid volvulus. He is status post endoscopic colonic decompression with gastroenterology 12/13/23. However, the significant stool burden precluded complete decompression of the colon but a rectal tube was left in place proximal to the area of volvulus. Yesterday patient's lactate was rechecked and was within normal limits. Yesterday he denied any abdominal discomfort and was actually reporting some hunger pangs. He has remained hemodynamically stable and his urine output improved with a bolus but remains red-tinged with some sediment after a semitraumatic Ayala catheter placement yesterday. Mr. Vides's white blood cellcount has down trended to 16 from 24 yesterday (in the day prior). Unfortunately, today I am appreciating more abdominal distention and some shifting tenderness. Patient is also reporting less flatus so I am suspicious for recurrent obstruction versus ileus. Obtaining KUB now but patient may require CT imaging to further characterize. Have also informed him that this may lead us to bump his surgery up to today and the distention would preclude a laparoscopic approach Neuro: As needed Dilaudid, add as needed Chloraseptic Pulm/CV: Close monitoring of patient's respiratory and hemodynamic statuses. Patient mildly anasarcic but continue LR at 125 for now to maintain urine output. Patient could be sat out of bed in a chair to optimize his respiratory status FEN/GI: Continue close monitoring of electrolytes during n.p.o. status, administer 15 mmol of K-Phos today for mild hypophosphatemia and downtrending potassium, patient's creatinine is now within normal limits, continue NG tube tolow intermittent wall suction, Protonix, rectal tube to low intermittent wall suction, will follow-up results of KUB, notify surgery of any significant changes to patient's abdominal exam or GI status, specifically : Ayala catheter for strict ARINA monitoring?continue to monitor for clots Heme/ID: Continue to trend CBC, continue empiric IV Zosyn and bank, follow-up urine culture and blood cultures, azithromycin added by GI to try to stimulate peristalsis Endo: Continue glucose monitoring during n.p.o. state Proph: SCDs Dispo: Continue inpatient ICU care Charges/Coding Visit Charges Inpatient E&M: 86991 Subs Hosp L2 12/15/23 0916 <Electronically signed by Surjit Kirkland MD> Cosigner Signature (if applicable): CC: ~ Signed ADDENDUM by Dr. Surjit Kirkland MD on 12/15/23 at 1115 Addendum After review of patient's imaging, I confirm that patient has persistent colonicdistention and that neither the rectal tube nor his colonic peristalsis is resulting in decompression. With his mild tenderness on the right abdominal wall on exam today I do not want to dismiss possible ischemic changes with the right colon and risk possible perforation. Therefore, I have recommended proceeding to the operating room for exploratory laparotomy with sigmoid colectomy and additional bowel resection as needed. I discussed reanastomosis versus colostomy, but recommended that unless conditions were exceedingly favorable we proceed with colostomy. I suggested that patient would be at an above average risk for breakdown of this anastomosis given his significant distention, malnutrition (albumin today is 2.5), and history of constipation. The above discussion was held in the hearing of both patient's daughter and son and was further facilitated by review of patient's index CT imaging as well as the repeat CT imaging from today. They expressed understanding and appreciation forthis information and provide there verbal and written consent to proceed as recommended. Operating room has been notified. Will proceed at the earliest availability. 12/15/23 1115<Electronically signed by Surjit Kirkland MD> Cosigner Signature (if applicable): cc: ~* Signed [facility] Work Phone: [phone] Consult note Author Shahid Baumann [facility] December 14, 2023 4:15pm Note Date/Time December 14, 2023 3:15pm [facility] Medical Records Department [address] [place] [address] Consultation - Database Management Specialist 12/14/23 1515 MR#: [id number] Acct: [id number] Name: MAYNOR VIDES III Rep #:[id number] : 1945 78 From: Shahid العراقي PCP: Dr. Sarika Montaño MD Status:ADM IN Location: ICU ICU02-1 HPI Consult Data Date of Consult: 12/14/23 HPI Narrative HPI Narrative: MAYNOR VIDES is a 78 M who presents [facility] Medical History (Updated 12/14/23 @ 11:[address] Tineo Friend, DO) CKD (chronic kidney disease), stage II Parkinson disease Home Medications amantadine HCl 100 mg capsule 100 mg PO DAILY hill 12/04/23 [History Last Taken Unknown] carbidopa 25 mg-levodopa 100 mg tablet 1.5 tab PO DAILY 12/04/23 [History Last Taken Unknown] carbidopa ER 25 mg-levodopa 100 mg tablet,extended release 1 tab PO QHS hill 12/04/23 [History Last Taken Unknown] carbidopa 25 mg-levodopa 100 mg tablet 1 tab PO BID 12/13/23 [History Last Taken Unknown] Allergy/AdvReac Type Severity Reaction Status Date / Time No Known Allergies Allergy Verified 12/13/23 11:57 Family History (Updated 12/14/23 @ 00:[address] Kelley Shankar MD) Mother Heart disease Father Heart disease Surgical History (Updated 12/14/23 @ 00:[address] Kelley Shankar MD) History of tonsillectomy and adenoidectomy Surgical History no surgical history Social History (Updated 12/14/23 @ 01:[address] Kelley Shankar MD) household members: none Smoking Status: Never smoker alcohol intake: never substance use type: does not use Objective Data Objective Data Vital Signs: Vital Signs Last response Temperature 37.9 C H 12/14/23 12:00 Temperature Source Core 12/14/23 13:00 Pulse Rate 85 12/14/23 12:00 Respiratory Rate 19 H 12/14/23 12:00 Respiratory Effort Normal 12/14/23 10:00 Respiratory Depth Normal 12/14/23 10:00 Respiratory Pattern Normal 12/14/23 10:00 Blood Pressure 140/73 H 12/14/23 13:00 Blood Pressure Mean 95 12/14/23 13:00 Blood Pressure Source Monitor 02/24/24 13:00 Blood Pressure Position Semi-Fowlers 12/14/23 13:00 Blood Pressure Location Left Arm 12/14/23 13:00 Pulse Ox 97 12/14/23 12:00 Oxygen Delivery Method Nasal Cannula 12/14/23 13:00 Oxygen Flow Rate (L/min) 2 12/14/23 13:00 I&O: I&O Last 24 Hours 12/13/23 12/14/23 12/14/23 23:59 11:59 23:59 Intake Total 1355 / 1375 1819.17 / 2819.17 1000 / 2819.17 Output Total 150 / 250 350 / 700 350 / 700 Balance 1205 / 1125 1469.17 / 2119.17 650 / 2119.17 I&O: Total Stay 12/13/23 11:55 thru 12/14/23 12:50 Intake Total 4174.17 Output Total 850 Balance 3324.17 Current Meds Ordered / Administered: Current meds ordered / Administered Generic Name Dose Route Start Last Admin Trade Name Aricq PRN Reason Stop Dose Admin Amantadine HCl 100 mg 12/14/23 10:00 12/14/23 08:10 Amantadine 100 Mg Capsule PO Not Given DAILY GAURI Carbidopa/Levodopa 1 tablet 12/14/23 11:00 12/14/23 08:10 Carbidopa/Levodopa 25/100 Tablet PO Not Given 1100,1600 GAURI Carbidopa/Levodopa 1.5 tablet 12/14/23 08:00 12/14/23 08:10 Carbidopa/Levodopa 25/100 Tablet PO Not Given 0800 GAURI Carbidopa/Levodopa 0.5 tablet 12/13/23 22:00 12/13/23 22:23 Carbidopa/Levodopa Cr 50/200 Tablet PO 0.5 tablet QHS GAURI Administration Hydromorphone HCl 0.5 mg 12/13/23 16:11 Hydromorphone 0.5 Mg/0.5 Ml Syringe IV Q4H PRN PRN Pain Score 6-10 Sodium Chloride 1,000 mls @ 15 mls/hr 12/13/23 16:10 12/13/23 16:17 IV 15 mls/hr .Q48H GAURI Administration Lactated Ringer's 1,000 mls @ 125 mls/hr 12/13/23 16:15 12/14/23 14:56 IV 125 mls/hr .Q8H GAURI Administration Sodium Chloride 250 mls @ 15 mls/hr 12/13/23 20:37 IV .[id number] PRN Additional IVPB Infusion Sodium Chloride 250 mls @ 15 mls/hr 12/13/23 20:37 IV .[id number] PRN Saline Flush Piperacillin Sod/Tazobactam 50 mls @ 12.5 mls/hr 12/13/23 22:00 12/14/23 14:55 Sod 3.375 gm/ Sodium Chloride IV 12.5 mls/hr Q8 GAURI Administration Azithromycin 500 mg/ Dextrose 255 mls @ 250 mls/hr 12/13/23 22:00 12/13/23 23:46 IV Infused Q24H GAURI Infusion Pantoprazole Sodium 40 mg/ 110 mls @ 330 mls/hr 12/14/23 01:00 12/14/23 08:30 Sodium Chloride IV Infused Q24 GAURI Infusion Vancomycin IV-PHARMACY TO DOSE 500 mls @ 250 mls/hr 12/14/23 11:44 1 each/ Sodium Chloride IV X1 PRN Rx to Dose Protocol Vancomycin HCl 750 mg/ Sodium 265 mls @ 250 mls/hr 12/15/23 00:00 Chloride IV Q12H GAURI Ondansetron HCl 4 mg 12/13/23 16:11 Ondansetron 4 Mg/2 Ml Vial IV Q6H PRN PRN NAUSEA/VOMITING Phenol/Menthol 3 spray 12/14/23 08:11 12/14/23 09:36 Phenol/Sodium Phenolate 180ml MUCOUS MEM 3 spray Q2H PRN PRN Administration SORE THROAT Sodium Chloride 10 - 40 ml 12/13/23 20:37 12/14/23 01:53 0.9% Saline Lock 10 Ml Syringe IV 20 ml UD PRN Administration SALINE FLUSH Vancomycin Protocol 1 lab 12/15/23 21:30 Vancomycin Trough/Random Due MC 12/16/23 01:30 DAILY [facility] Lab / Micro Data 12/14/23 11:00 12/14/23 05:00 Labs: Laboratory Results - last 24 hr 12/13/23 20:15: Lactic Acid 3.0 H* 12/14/23 00:50: Lactic Acid Cancelled 12/14/23 00:50: Lactic Acid 2.5 H* 12/14/23 05:00: WBC 24.4 H, RBC 4.48 L, Hgb 14.1, Hct 41.6, MCV 92.9, MCH 31.5, MCHC 33.9, RDW Std Deviation 50.2 H, RDW Coeff of Ann 14.6, Plt Count 214, MPV 10.8, Immature Gran % (Auto) 1.600 H, Neut % (Auto) 87.5 H, Lymph % (Auto) 2.5 L, [place] % (Auto) 7.0, Eos % (Auto) 0.8, Baso % (Auto) 0.6, Absolute Neuts (auto) 21.4 H, Absolute Lymphs (auto) 0.60 L, Nucleated RBC % 0, Diff Path Review February, Reactive Lymphocytes 1+, Sodium 134 L, Potassium 3.8, Chloride 102, CarbonDioxide 27.0, Anion Gap 5, BUN 30 H, Creatinine 1.11, Estim Creat Clear Calc 57.55, Est GFR (MDRD) Af Amer 83, Est GFR (MDRD) Non-Af 68, BUN/Creatinine Ratio27.0 H, Glucose 130 H, Hemoglobin A1c 5.5, Calcium 8.0 L, Phosphorus 3.4, Magnesium 2.0, Total Bilirubin 3.10 H, AST 39 H, ALT 11 L, Alkaline Phosphatase 55, Total Protein 5.9 L, Albumin 2.9 L, Globulin 3.0, Albumin/Globulin Ratio 1.0 12/14/23 11:00: Hgb 13.6, Hct 39.0 L 12/14/23 11:50: ESR 11, Lactic Acid 1.3, C-React Prot Ext Range 176.00 H Imaging Radiology Impression KUB X-Ray 12/13/23 16:50 IMPRESSION: Fluoroscopy during endoscopy and placement of catheter. Electronically Signed: Janes Sneed MD at 20:14 EST , KUB X-Ray 12/13/23 19:00 IMPRESSION: 1. Interval advancement of nasogastric tube with the tip in the left upper quadrant likely in the body the stomach. 2. Suspect adynamic ileus. Electronically Signed: Janes Sneed MD at 20:18 EST , KUB X-Ray 12/13/23 19:00 IMPRESSION: 1. Nasogastric tube with the tip in the midline likely in the distal esophagus. 2. Suspect adynamic ileus. Electronically Signed: Janes Sneed MD at 20:19 EST , KUB X-Ray 12/14/23 06:10 IMPRESSION: 1. Nasogastric tube with the tip in the region of the stomach. 2. Slightly improved gas pattern. Electronically Signed: Elder Taveras MD at 9:43 EST , Assessment and Plan . Assessment and plan: 78 yo man admitted 12/13/23 w/ severe abdominal pain and obstipation. CT A/P concerning for sigmoid volvulus. He has been evaluated by GI and surgery. He has undergone colonoscopy w/ attempted decompression. This has been performed w/ partial decompression achieved at the time of procedure. Since that time, abdominal pain improved. NGT o/p has decreased. LA now WNL. No stool per rectal tube as of yet. He appears ill but not distressed. Low grade fever. HD stable. UOP adequate currently. Abdomen distended a bit. KUB reveals less distended bowel. PHYSICAL EXAM GEN NAD VS as above HEENT NGT NECK supple COR RRR CHEST CTA ABD soft, distended, quiet EXT no edema SKIN w/d RAFAEL NF ASSESSMENT 1. Sigmoid volvulus w/ partial obstruction 2. Low grade fever w/ leukocytosis 3. Hematuria 4. Improved lactic acidosis TREATMENT PLAN -continue crystalloid -receiving empiric ABX -NGT ILWS -hold all A/C -GI and surgery following Critical Care Time: 60 min The entirety of this encounter was done via Telemedicine 12/14/23 1615 <Electronically signed by Shahid Baumann MD> Cosigner Signature (if applicable): CC: Dr. Sarika Montaño MD; Dr. Blayne Rosa MD; Dr. Sterling Iniguez MD; Dr.Derek Dudley DO; Dr. Rudy Navarrete MD; Dr. Jabari Santana MD; Dr. Susan Lloyd MD; Dr. Jenna Littlejohn MD; Dr. Alexandru Escobar MD; Dr. Pito Nickerson MD; Dr. Lon Bowman MD; Dr. Ernesto Bowie MD; Dr. Shahid Baumann MD; Dr. Sully Romero MD; Noman Chen DO~ Signed [facility] Work Phone: [phone] Progress note Author Noman Chen [facility] December 14, 2023 11:31am Note Date/Time December 14, 2023 11:32am [facility] System Medical Records Department [address] [place] [address] Progress Note - GI 12/14/23 1126 MR#: [id number] Acct: [id number] Name: MAYNOR VIDES III Rep #:[id number] : 1945 78 From: Noman Chen DO PCP: Dr. Sarika Montaño MD Status:ADM IN Location: ICU ICU02-1 Subjective Subjective Patient seen and examined at the bedside with his daughter and son. He states that he is feeling better. He had NG tube and rectal tube overnight. He has had about 200 mL out via NG tube and about 150 mL of stool out overnight from rectal tube. He says that his abdomen does feel better. He recently spiked a temperature at 100.1. Objective Data Objective Data Vital Signs: Vital Signs Temp Pulse Resp BP Pulse Ox O2 Del Method O2 Flow Rate 100.1 F H 94 20 H 149/75 H 98 Nasal Cannula 2 12/14/23 10:12/14/23 10:12/14/23 10:12/14/23 10:12/14/23 10:00 12/14/23 10:00 12/14/23 10:00 Oxygen Flow Rate (L/min) 2 Oxygen Delivery Method Nasal Cannula Weight: 186 lb 4.65 oz Body Mass Index (BMI) 26.7 Intake & Output: Intake and Output for Last 24 Hours 12/12/23 12/13/23 12/14/23 23:59 23:59 23:59 Intake Total 1355 / 1375 1819.17 / 1819.17 Output Total 150 / 250 350 / 350 Balance 1205 / 1125 1469.17 / 1469.17 Lab / Micro Data 12/14/23 11:00 12/14/23 05:00 Labs: Laboratory Results - last 24 hr 12/13/23 12:40: WBC 24.8 H, RBC 4.96, Hgb 16.2, Hct 46.8, MCV 94.4 H, MCH 32.7 H, MCHC 34.6, RDW Std Deviation 49.6 H, RDW Coeff of Ann 14.5, Plt Count 257, MPV11.0, Immature Gran % (Auto) 1.300 H, Neut % (Auto) 92.3 H, Lymph % (Auto) 1.7 L, [place] % (Auto) 4.2, Eos % (Auto) 0.0, Baso % (Auto) 0.5, Absolute Neuts (auto) 22.9 H, Absolute Lymphs (auto) 0.41 L, Nucleated RBC % 0, Differential Comment SCANNED, Diff Path Review February, Sodium 136, Potassium 4.5, Chloride 101, Carbon Dioxide 27.0, Anion Gap 8, BUN 29 H, Creatinine 1.33 H, Estim Creat ClearCalc 46.34, Est GFR (MDRD) Af Amer 67, Est GFR (MDRD) Non-Af 55 L, BUN/Creatinine Ratio 21.8 H, Glucose 179 H, Calcium 9.4, Total Bilirubin 2.40 H,AST 23, ALT 13 L, Alkaline Phosphatase 68, Total Protein 7.7, Albumin 3.8, Globulin 3.9, Albumin/Globulin Ratio 1.0, Lipase 15 12/13/23 14:57: Urine Color Yellow, Urine Clarity Clear, Urine pH 5.0, Ur Specific [place] 1.015, Urine Protein 30 H, Urine Glucose (UA) Normal, Urine Ketones 5 H, Urine Occult Blood 25 H, Urine Nitrite Positive H, Urine Bilirubin 1 H, Urine Urobilinogen 4 H, Ur Leukocyte Esterase 25 H, Urine RBC 0 SEEN, UrineWBC 0-5 SEEN, Ur Squamous Epith Cells 0 SEEN, Urine Bacteria 0 SEEN, Urine Mucus0 SEEN 12/13/23 20:15: Lactic Acid 3.0 H* 12/14/23 00:50: Lactic Acid Cancelled 12/14/23 00:50: Lactic Acid 2.5 H* 12/14/23 05:00: WBC 24.4 H, RBC 4.48 L, Hgb 14.1, Hct 41.6, MCV 92.9, MCH 31.5, MCHC 33.9, RDW Std Deviation 50.2 H, RDW Coeff of Ann 14.6, Plt Count 214, MPV 10.8, Immature Gran % (Auto) 1.600 H, Neut % (Auto) 87.5 H, Lymph % (Auto) 2.5 L, [place] % (Auto) 7.0, Eos % (Auto) 0.8, Baso % (Auto) 0.6, Absolute Neuts (auto) 21.4 H, Absolute Lymphs (auto) 0.60 L, Nucleated RBC % 0, Diff Path Review May foll, Reactive Lymphocytes 1+, Sodium 134 L, Potassium 3.8, Chloride 102, CarbonDioxide 27.0, Anion Gap 5, BUN 30 H, Creatinine 1.11, Estim Creat Clear Calc 57.55, Est GFR (MDRD) Af Amer 83, Est GFR (MDRD) Non-Af 68, BUN/Creatinine Ratio27.0 H, Glucose 130 H, Hemoglobin A1c 5.5, Calcium 8.0 L, Phosphorus 3.4, Magnesium 2.0, Total Bilirubin 3.10 H, AST 39 H, ALT 11 L, Alkaline Phosphatase 55, Total Protein 5.9 L, Albumin 2.9 L, Globulin 3.0, Albumin/Globulin Ratio 1.0 12/14/23 11:00: Hgb 13.6, Hct 39.0 L Radiography Diagnostic Testing: Radiology Impression Abdomen/Pelvis CT 12/13/23 13:46 IMPRESSION: Marked degree of distention of the colon down to the region of the sigmoid colon. Sigmoid volvulus should be ruled out. 6.1 cm x 5 0.6 mL cyst in the upper midportion of the left kidney. N.B. : The above Results were Read Back by Brady Mackenzie MD to PANCHO Barker, and understanding confirmed on 12/13/2023 14:42:30 (ET). Electronically Signed: Brady Mackenzie MD at 14:43 EST , ADDENDUM: 12/13/23 1450 IMPRESSION: Marked degree of distention of the colon down to the region of the sigmoid colon. Sigmoid volvulus should be ruled out. 6.1 cm x 5 0.6 mL cyst in the upper midportion of the left kidney. N.B. : The above Results were Read Back by Brady Mackenzie MD to PANCHO Barker, and understanding confirmed on 12/13/2023 14:42:30 (ET). Electronically Signed: Brady Mackenzie MD at 14:43 EST , KUB X-Ray 12/13/23 16:50 IMPRESSION: Fluoroscopy during endoscopy and placement of catheter. Electronically Signed: Janes Sneed MD at 20:14 EST Reading Location ID and State: [id number] / [place] Tel , Service support , KUB X-Ray 12/13/23 19:00 IMPRESSION: 1. Interval advancement of nasogastric tube with the tip in the left upper quadrant likely in the body the stomach. 2. Suspect adynamic ileus. Electronically Signed: Janes Sneed MD at 20:18 EST , KUB X-Ray 12/13/23 19:00 IMPRESSION: 1. Nasogastric tube with the tip in the midline likely in the distal esophagus. 2. Suspect adynamic ileus. Electronically Signed: Janes Sneed MD at 20:19 EST , KUB X-Ray 12/14/23 06:10 IMPRESSION: 1. Nasogastric tube with the tip in the region of the stomach. 2. Slightly improved gas pattern. Electronically Signed: Elder Taveras MD at 9:43 EST , Physical Exam Narrative Seen and examined Along with the surgeon and patient's RN present in the room. Patient has NG tube and rectal tube. Afebrile. No significant spontaneous urine output, it was dark and concentrated and patient is going to have a Ayala catheterization. Patient states his abdominal pain is little better. residential monitor shows sinus rhythm with PVCs at 87 bpm. Physical exam: General: Alert, Oriented x3, Cooperative but fatigued and weak HEENT: Atraumatic, PERRLA, EOMI, Normocephalic Oral: Oral mucosa dry. NG tube present. Dark black color aspirate. Neck: Supple, No JVD, Negative Carotid Bruits Chest wall/Lungs: Air entry diminished in bilateral lung bases. No crepitation/rhonchi Cardiovascular: Regular rate, Regular Rhythm, Normal S1, Normal S2, No M/G/R. Abdomen: Bowel Sounds Present, Soft, Non Tender, Non-Distended : Oliguria. No dysuria. No renal angle tenderness. No suprapubic tenderness. Extremities: No edema, Capillary Refill Less than 3 Seconds Skin: No rashes, No breakdown Musculoskeletal: No Tenderness to Palpation of Joints or Extremities. Mild muscle rigidity. History of Parkinson disease Neurological: Cranial nerves II-XII grossly intact, DTR 2+/4. No acute focal neurological deficit. Psych/Mental Status: Flat affect. Assessment & Plan Assessment/Plan (1) Sigmoid volvulus: (2) Leukocytosis: (3) Fever: PLAN: Plan 78-year-old gentleman with past medical history of Parkinson's disease on amantadine, carbidopa levodopa who presented with acute onset abdominal pain followed by nausea and vomiting. CT scan had showed acute volvulus formation ofthe sigmoid colon without perforation. He underwent rectal tube placement and NG tube placement. He is feeling a little bit better. Still concerns me that he did have some ischemia which was seen on colonoscopy yesterday. Hopefully, that is just mucosal injury. Recommendation: -Recheck lactic acid -Check ESR and CRP and LDH -Urine culture and blood cultures x 2 -Start vancomycin -Continue n.p.o. -Patient is still very sick -I tried to add Reglan for him last night in order to promote GI motility of theupper GI tract but he has Parkinson disease and dopamine antagonist can be contraindicated -Continue azithromycin for ileus of the small bowel associated with sigmoid volvulus. Charges/Coding Visit Charges Inpatient E&M: 97796 Subs Hosp L3 12/14/23 1131 <Electronically signed by Noman Friend DO> Cosigner Signature (if applicable): CC: ~ Signed [facility] Work Phone: [phone] 560-396302-24-2024 Progress note Author Pito Nickerson [facility] December 14, 2023 8:45am Note Date/Time December 14, 2023 8:45am [facility] Medical Records Department [address] [place] [address] Progress Note - Hospitalist 12/14/23823 MR#: [id number] Acct: [id number] Name: MAYNOR VIDES DANDRE Rep #:[id number] : 1945 78 From: Pito العراقي PCP: Dr. Sarika Montaño MD Status:ADM IN Location: ICU ICU02-1 Reason for Visit Reason for Visit: Diagnoses Volvulus (12/13/23) Objective Data Objective Data Vital Signs: Vital Signs Temp Pulse Resp BP Pulse Ox O2 Del Method O2 Flow Rate 98.1 F 90 18 136/71 H 98 Nasal Cannula 2 12/14/23 06:00 12/14/23 06:00 12/14/23 06:00 12/14/23 06:00 12/14/23 06:00 12/14/23 06:00 12/14/23 06:00 Oxygen Flow Rate (L/min) 2 Oxygen Delivery Method Nasal Cannula Weight: 186 lb 4.65 oz Body Mass Index (BMI) 26.7 Intake & Output: Intake and Output for Last 24 Hours 12/12/23 12/13/23 12/14/23 23:59 23:59 23:59 Intake Total 1355 / 1375 1159.17 / 1159.17 Output Total 150 / 250 350 / 350 Balance 1205 / 1125 809.17 / 809.17 Lab / Micro Data 12/14/23 05:00 12/14/23 05:00 Labs: Laboratory Results - last 24 hr 12/13/23 12:40: WBC 24.8 H, RBC 4.96, Hgb 16.2, Hct 46.8, MCV 94.4 H, MCH 32.7 H, MCHC 34.6, RDW Std Deviation 49.6 H, RDW Coeff of Ann 14.5, Plt Count 257, MPV11.0, Immature Gran % (Auto) 1.300 H, Neut % (Auto) 92.3 H, Lymph % (Auto) 1.7 L, [place] % (Auto) 4.2, Eos % (Auto) 0.0, Baso % (Auto) 0.5, Absolute Neuts (auto) 22.9 H, Absolute Lymphs (auto) 0.41 L, Nucleated RBC % 0, Differential Comment SCANNED, Diff Path Review February, Sodium 136, Potassium 4.5, Chloride 101, Carbon Dioxide 27.0, Anion Gap 8, BUN 29 H, Creatinine 1.33 H, Estim Creat ClearCalc 46.34, Est GFR (MDRD) Af Amer 67, Est GFR (MDRD) Non-Af 55 L, BUN/Creatinine Ratio 21.8 H, Glucose 179 H, Calcium 9.4, Total Bilirubin 2.40 H,AST 23, ALT 13 L, Alkaline Phosphatase 68, Total Protein 7.7, Albumin 3.8, Globulin 3.9, Albumin/Globulin Ratio 1.0, Lipase 15 12/13/23 14:57: Urine Color Yellow, Urine Clarity Clear, Urine pH 5.0, Ur Specific [place] 1.015, Urine Protein 30 H, Urine Glucose (UA) Normal, Urine Ketones 5 H, Urine Occult Blood 25 H, Urine Nitrite Positive H, Urine Bilirubin 1 H, Urine Urobilinogen 4 H, Ur Leukocyte Esterase 25 H, Urine RBC 0 SEEN, UrineWBC 0-5 SEEN, Ur Squamous Epith Cells 0 SEEN, Urine Bacteria 0 SEEN, Urine Mucus0 SEEN 12/13/23 20:15: Lactic Acid 3.0 H* 12/14/23 00:50: Lactic Acid Cancelled 12/14/23 00:50: Lactic Acid 2.5 H* 12/14/23 05:00: WBC 24.4 H, RBC 4.48 L, Hgb 14.1, Hct 41.6, MCV 92.9, MCH 31.5, MCHC 33.9, RDW Std Deviation 50.2 H, RDW Coeff of Ann 14.6, Plt Count 214, MPV 10.8, Immature Gran % (Auto) 1.600 H, Neut % (Auto) 87.5 H, Lymph % (Auto) 2.5 L, [place] % (Auto) 7.0, Eos % (Auto) 0.8, Baso % (Auto) 0.6, Absolute Neuts (auto) 21.4 H, Absolute Lymphs (auto) 0.60 L, Nucleated RBC % 0, Diff Path Review February, Reactive Lymphocytes 1+, Sodium 134 L, Potassium 3.8, Chloride 102, CarbonDioxide 27.0, Anion Gap 5, BUN 30 H, Creatinine 1.11, Estim Creat Clear Calc 57.55, Est GFR (MDRD) Af Amer 83, Est GFR (MDRD) Non-Af 68, BUN/Creatinine Ratio27.0 H, Glucose 130 H, Hemoglobin A1c 5.5, Calcium 8.0 L, Phosphorus 3.4, Magnesium 2.0, Total Bilirubin 3.10 H, AST 39 H, ALT 11 L, Alkaline Phosphatase 55, Total Protein 5.9 L, Albumin 2.9 L, Globulin 3.0, Albumin/Globulin Ratio 1.0 Radiography Diagnostic Testing: Radiology Impression Abdomen/Pelvis CT 12/13/23 13:46 IMPRESSION: Marked degree of distention of the colon down to the region of the sigmoid colon. Sigmoid volvulus should be ruled out. 6.1 cm x 5 0.6 mL cyst in the upper midportion of the left kidney. N.B. : The above Results were Read Back by Brady Mackenzie MD to PANCHO Barker, and understanding confirmed on 12/13/2023 14:42:30 (ET). Electronically Signed: Brady Mackenzie MD at 14:43 EST , ADDENDUM: 12/13/23 1450 IMPRESSION: Marked degree of distention of the colon down to the region of the sigmoid colon. Sigmoid volvulus should be ruled out. 6.1 cm x 5 0.6 mL cyst in the upper midportion of the left kidney. N.B. : The above Results were Read Back by Brady Mackenzie MD to PANCHO Barker, and understanding confirmed on 12/13/2023 14:42:30 (ET). Electronically Signed: Brady Mackenzie MD at 14:43 EST , KUB X-Ray 12/13/23 16:50 IMPRESSION: Fluoroscopy during endoscopy and placement of catheter. Electronically Signed: Janes Sneed MD at 20:14 EST Reading Location ID and State: [id number] / [place] Tel , Service support , KUB X-Ray 12/13/23 19:00 IMPRESSION: 1. Interval advancement of nasogastric tube with the tip in the left upper quadrant likely in the body the stomach. 2. Suspect adynamic ileus. Electronically Signed: Janes Sneed MD at 20:18 EST , KUB X-Ray 12/13/23 19:00 IMPRESSION: 1. Nasogastric tube with the tip in the midline likely in the distal esophagus. 2. Suspect adynamic ileus. Electronically Signed: Janes Sneed MD at 20:19 EST , Physical Exam Narrative Seen and examined Along with the surgeon and patient's RN present in the room. Patient has NG tube and rectal tube. Afebrile. No significant spontaneous urine output, it was dark and concentrated and patient is going to have a Ayala catheterization. Patient states his abdominal pain is little better. Passing some gas but no BM for about 2 days. Was admitted with sudden onset abdominal pain, nausea vomiting started 10 PM day before admission. Patient denies any prior history of bowel obstruction or abdominal pain like this. residential monitor shows sinus rhythm with PVCs at 87 bpm. Physical exam: General: Alert, Oriented x3, Cooperative but fatigued and weak HEENT: Atraumatic, PERRLA, EOMI, Normocephalic Oral: Oral mucosa dry. NG tube present. Dark black color aspirate. Neck: Supple, No JVD, Negative Carotid Bruits Chest wall/Lungs: Air entry diminished in bilateral lung bases. No crepitation/rhonchi Cardiovascular: Regular rate, Regular Rhythm, Normal S1, Normal S2, No M/G/R. Abdomen: Bowel Sounds Present, Soft, Non Tender, Non-Distended : Oliguria. No dysuria. No renal angle tenderness. No suprapubic tenderness. Extremities: No edema, Capillary Refill Less than 3 Seconds Skin: No rashes, No breakdown Musculoskeletal: No Tenderness to Palpation of Joints or Extremities. Mild muscle rigidity. History of Parkinson disease Neurological: Cranial nerves II-XII grossly intact, DTR 2+/4. No acute focal neurological deficit. Psych/Mental Status: Flat affect. Assessment & Plan Assessment/Plan (1) Sigmoid volvulus: PLAN: Plan The patient is a 78 y/o M was admitted with sudden onset of Was admitted with sudden onset abdominal pain periumbilical and hypogastric in location, nausea vomiting, dark in color started 10 PM day before admission. No fever. Patient denies any prior history of bowel obstruction or abdominal pain like this. #1. Sigmoid volvulus, complicated with total colon distention, ileus and lacticacidosis with suspected colonic infection/colitis: Patient admitted under surgical service to the ICU after colonoscopy. Abdomen pelvis/CT was done priorto that. Shows mild distention of colon down to the region of sigmoid colon, upto 10 cm. Patient reported some passage of flatus. Has a rectal tube and NG tube. IV fluid 500 mL Ringer lactate ordered as patient did not had significanturine output. Heart rate and blood pressure are controlled. No fever. Discussed with the surgeon and plan to maintain on his current conservative measures to avoid total colectomy with high risk of surgery. Patient on IV PPI. Patient on IV Zosyn. Mild improvement in leukocytosis. Platelet count 214,000. Patient had colonoscopy on 12/13/2021 4. Sigmoid volvulus was found though colonprep was poor. Diverticulosis in RS colon and sigmoid colon. Partial decompression of volvulus achieved. No repeat colonoscopy recommended. Perioperative risk evaluation: Patient denies prior chronic cardiac or pulmonarydisease including ME, cardiac stent, angina, CHF or A-fib or valvular heart disease. Denies COPD. No prior history of smoking or nicotine use or chronic alcohol use. Patient has Parkinson disease but baseline musculoskeletal function unclear as patient is very sick now. Overall, patient is high risk. Incentive spirometry. #2. SARITHA on Chronic Kidney Disease Stage II : Most likely prerenal due to sigmoid volvulus/ileus and third space: Ayala catheterization. Strict intake and output. Admission BUN/creatinine 29/1.33, today BUN/creatinine 30/1.11 BUN/creatinine ratio is 27. UA shows positive nitrite, ketones 5, bilirubin 1 LE 25 WBC 0-5 cells, bacteria 0. Patient on IV antibiotics. 3. Mild hyperbilirubinemia with normal transaminases, hyperbilirubinemia: Probably due to acute event of sigmoid volvulus ileus and possible secondary colon infection. Admission glucose 179. A1c 5.5 probably stress response hyperglycemia. Diabetes mellitus or prediabetes ruled out. #4. Parkinson's disease: hold oral medications in view of ileus with impaired bowel absorption #5. DVT Prophylaxis: Recommend at least SCDs, chemoprophylaxis per Surgery discretion. #6. CODE status: Patient BRIA is his daughter who is present and living will is currently in place. Discussed CODE status at length including difference between FULL code, DNR-CCA and DNR-CC status. Following discussions about the differences in these status, requested Full Code status. [facility] Results 12/13/23 12:40: WBC 24.8 H, RBC 4.96, Hgb 16.2, Hct 46.8, MCV 94.4 H, MCH 32.7 H, MCHC 34.6, RDW Std Deviation 49.6 H, RDW Coeff of Ann 14.5, Plt Count 257, MPV11.0, Immature Gran % (Auto) 1.300 H, Neut % (Auto) 92.3 H, Lymph % (Auto) 1.7 L, [place] % (Auto) 4.2, Eos % (Auto) 0.0, Baso % (Auto) 0.5, Absolute Neuts (auto) 22.9 H, Absolute Lymphs (auto) 0.41 L, Nucleated RBC % 0, Differential Comment SCANNED, Diff Path Review February, Sodium 136, Potassium 4.5, Chloride 101, Carbon Dioxide 27.0, Anion Gap 8, BUN 29 H, Creatinine 1.33 H, Estim Creat Clear Calc 46.34, Est GFR (MDRD) Af Amer 67, Est GFR (MDRD) Non-Af 55 L, BUN/Creatinine Ratio 21.8 H, Glucose 179 H, Calcium 9.4, Total Bilirubin 2.40 H, AST 23, ALT 13 L, Alkaline Phosphatase 68, Total Protein 7.7, Albumin 3.8, Globulin 3.9, Albumin/Globulin Ratio 1.0, [id number] 12/13/23 14:57: Urine Color Yellow, Urine Clarity Clear, Urine pH 5.0, Ur Specific [place] 1.015, Urine Protein 30 H, Urine Glucose (UA) Normal, Urine Ketones 5 H, Urine Occult Blood 25 H, Urine Nitrite Positive H, Urine Bilirubin 1 H, Urine Urobilinogen 4 H, Ur Leukocyte Esterase 25 H, Urine RBC 0 SEEN, UrineWBC 0-5 SEEN, Ur Squamous Epith Cells 0 SEEN, Urine Bacteria 0 SEEN, Urine Mucus0 SEEN 12/13/23 20:15: Lactic Acid 3.0 H* 12/14/23 00:50: Lactic Acid 2.5 H* 12/14/23 05:00: WBC 24.4 H, RBC 4.48 L, Hgb 14.1, Hct 41.6, MCV 92.9, MCH 31.5, MCHC 33.9, RDW Std Deviation 50.2 H, RDW Coeff of Ann 14.6, Plt Count 214, MPV 10.8, Immature Gran % (Auto) 1.600 H, Neut % (Auto) 87.5 H, Lymph % (Auto) 2.5 L, [place] % (Auto) 7.0, Eos % (Auto) 0.8, Baso % (Auto) 0.6, Absolute Neuts (auto) 21.4 H, Absolute Lymphs (auto) 0.60 L, Nucleated RBC % 0, Diff Path Review February, Reactive Lymphocytes 1+ Sodium 134 L, Potassium 3.8, Chloride 102, Carbon Dioxide 27.0, Anion Gap 5, BUN 30 H, Creatinine 1.11, Estim Creat Clear Calc 57.55, Est GFR (MDRD) Af Amer 83, Est GFR (MDRD) Non-Af 68, BUN/Creatinine Ratio 27.0 H, Glucose 130 H, Hemoglobin A1c 5.5, Calcium 8.0 L, Phosphorus 3.4, Magnesium 2.0, Total Bilirubin 3.10 H, AST 39 H, ALT 11 L, Alkaline Phosphatase 55, Total Protein 5.9 L, Albumin 2.9 L, Globulin 3.0, Albumin/Globulin Ratio 1.0 Charges/Coding Visit Charges Inpatient E&M: 02362 Subs Hosp L3 12/14/23 0845 <Electronically signed by Pito Nickerson MD> Cosigner Signature (if applicable): CC: ~ Signed [facility] Work Phone: [phone] 302-741102-24-2024 Progress note Author Surjit Kirkland [facility] December 14, 2023 8:41am Note Date/Time December 14, 2023 8:41am [facility] Medical Records Department [address] [place] [address] Progress Note - Surgery 12/14/23 0830 MR#: [id number] Acct: [id number] Name: MAYNOR VIDES III Rep #:[id number] : 1945 78 From: Surjit العراقي PCP: Dr. Sarika Montaño MD Status:ADM IN Location: ICU ICU02-1 Subjective Subjective Patient seen and examined during AM rounds. He is found resting in bed. He states that he has a sore throat and a dry mouth but overall his abdominal pain is improved. He confirms that he has been passing gas overnight. Nursing shares that her primary concern is patient's low urine output and they are prepared to place a Ayala catheter this morning. Objective Data Objective Data Vital Signs: Vital Signs Temp Pulse Resp BP Pulse Ox O2 Del Method O2 Flow Rate 98.1 F 90 18 136/71 H 98 Nasal Cannula 2 12/14/23 06:00 12/14/23 06:00 12/14/23 06:00 12/14/23 06:00 12/14/23 06:00 12/14/23 06:00 12/14/23 06:00 Oxygen Flow Rate (L/min) 2 Oxygen Delivery Method Nasal Cannula Weight: 186 lb 4.65 oz Body Mass Index (BMI) 26.7 Intake & Output: Intake and Output for Last 24 Hours 12/12/23 12/13/23 12/14/23 23:59 23:59 23:59 Intake Total 1355 / 1375 1159.17 / 1159.17 Output Total 150 / 250 350 / 350 Balance 1205 / 1125 809.17 / 809.17 Lab / Micro Data 12/14/23 05:00 12/14/23 05:00 Labs: Laboratory Results - last 24 hr 12/13/23 12:40: WBC 24.8 H, RBC 4.96, Hgb 16.2, Hct 46.8, MCV 94.4 H, MCH 32.7 H, MCHC 34.6, RDW Std Deviation 49.6 H, RDW Coeff of Ann 14.5, Plt Count 257, MPV11.0, Immature Gran % (Auto) 1.300 H, Neut % (Auto) 92.3 H, Lymph % (Auto) 1.7 L, [place] % (Auto) 4.2, Eos % (Auto) 0.0, Baso % (Auto) 0.5, Absolute Neuts (auto) 22.9 H, Absolute Lymphs (auto) 0.41 L, Nucleated RBC % 0, Differential Comment SCANNED, Diff Path Review February foll, Sodium 136, Potassium 4.5, Chloride 101, Carbon Dioxide 27.0, Anion Gap 8, BUN 29 H, Creatinine 1.33 H, Estim Creat ClearCalc 46.34, Est GFR (MDRD) Af Amer 67, Est GFR (MDRD) Non-Af 55 L, BUN/Creatinine Ratio 21.8 H, Glucose 179 H, Calcium 9.4, Total Bilirubin 2.40 H,AST 23, ALT 13 L, Alkaline Phosphatase 68, Total Protein 7.7, Albumin 3.8, Globulin 3.9, Albumin/Globulin Ratio 1.0, Lipase 15 12/13/23 14:57: Urine Color Yellow, Urine Clarity Clear, Urine pH 5.0, Ur Specific [place] 1.015, Urine Protein 30 H, Urine Glucose (UA) Normal, Urine Ketones 5 H, Urine Occult Blood 25 H, Urine Nitrite Positive H, Urine Bilirubin 1 H, Urine Urobilinogen 4 H, Ur Leukocyte Esterase 25 H, Urine RBC 0 SEEN, UrineWBC 0-5 SEEN, Ur Squamous Epith Cells 0 SEEN, Urine Bacteria 0 SEEN, Urine Mucus0 SEEN 12/13/23 20:15: Lactic Acid 3.0 H* 12/14/23 00:50: Lactic Acid Cancelled 12/14/23 00:50: Lactic Acid 2.5 H* 12/14/23 05:00: WBC 24.4 H, RBC 4.48 L, Hgb 14.1, Hct 41.6, MCV 92.9, MCH 31.5, MCHC 33.9, RDW Std Deviation 50.2 H, RDW Coeff of Ann 14.6, Plt Count 214, MPV 10.8, Immature Gran % (Auto) 1.600 H, Neut % (Auto) 87.5 H, Lymph % (Auto) 2.5 L, [place] % (Auto) 7.0, Eos % (Auto) 0.8, Baso % (Auto) 0.6, Absolute Neuts (auto) 21.4 H, Absolute Lymphs (auto) 0.60 L, Nucleated RBC % 0, Diff Path Review May foll, Reactive Lymphocytes 1+, Sodium 134 L, Potassium 3.8, Chloride 102, CarbonDioxide 27.0, Anion Gap 5, BUN 30 H, Creatinine 1.11, Estim Creat Clear Calc 57.55, Est GFR (MDRD) Af Amer 83, Est GFR (MDRD) Non-Af 68, BUN/Creatinine Ratio27.0 H, Glucose 130 H, Hemoglobin A1c 5.5, Calcium 8.0 L, Phosphorus 3.4, Magnesium 2.0, Total Bilirubin 3.10 H, AST 39 H, ALT 11 L, Alkaline Phosphatase 55, Total Protein 5.9 L, Albumin 2.9 L, Globulin 3.0, Albumin/Globulin Ratio 1.0 Radiography Diagnostic Testing: Radiology Impression Abdomen/Pelvis CT 12/13/23 13:46 IMPRESSION: Marked degree of distention of the colon down to the region of the sigmoid colon. Sigmoid volvulus should be ruled out. 6.1 cm x 5 0.6 mL cyst in the upper midportion of the left kidney. N.B. : The above Results were Read Back by Brady Mackenzie MD to PANHCO Barker, and understanding confirmed on 12/13/2023 14:42:30 (ET). Electronically Signed: Brady Mackenzie MD at 14:43 EST , ADDENDUM: 12/13/23 1450 IMPRESSION: Marked degree of distention of the colon down to the region of the sigmoid colon. Sigmoid volvulus should be ruled out. 6.1 cm x 5 0.6 mL cyst in the upper midportion of the left kidney. N.B. : The above Results were Read Back by Brady Mackenzie MD to PANCHO Barker, and understanding confirmed on 12/13/2023 14:42:30 (ET). Electronically Signed: Brady Mackenzie MD at 14:43 EST , KUB X-Ray 12/13/23 16:50 IMPRESSION: Fluoroscopy during endoscopy and placement of catheter. Electronically Signed: Janes Sneed MD at 20:14 EST , KUB X-Ray 12/13/23 19:00 IMPRESSION: 1. Interval advancement of nasogastric tube with the tip in the left upper quadrant likely in the body the stomach. 2. Suspect adynamic ileus. Electronically Signed: Janes Sneed MD at 20:18 EST , KUB X-Ray 12/13/23 19:00 IMPRESSION: 1. Nasogastric tube with the tip in the midline likely in the distal esophagus. 2. Suspect adynamic ileus. Electronically Signed: Janes Sneed MD at 20:19 EST , Physical Exam Const oriented x3 Constitutional Narrative: Mild distress from nasogastric tube Resp normal respiratory effort Resp Narrative: Resolved tachypnea GI GI Narrative: Decreased abdominal distention, soft, mild tenderness (patient rates this as a 3out of 10) with palpation of the left lower quadrant?otherwise denies any tenderness, nasogastric tube output is thin and brown Assessment & Plan Assessment/Plan (1) Sigmoid volvulus: PLAN: Patient is a 78-year-old male, with past medical history of Parkinson's, who presents with a 17-hour history of acute onset abdominal pain and nausea/vomiting. Diagnostic workup shows evidence of sigmoid volvulus. He is status post endoscopic colonic decompression with gastroenterology last evening. However, the significant stool burden precluded complete decompression of the colon but a rectal tube was left in place proximal to the area of volvulus. Overnight patient's lactate down trended and his abdominal distention is improved this morning. He is also reporting some improvements in his abdominal discomfort. He has remained hemodynamically stable but his urine output has been marginal so we will look to bolus him this morning (especially since his tachypnea from yesterday is resolved). Mr. Mtz white blood cell count remains elevated and I remain concerned for ischemic colitis?especially considering the ischemic mucosa noted on yesterday's colonoscopy. Yet it is my hope that he has not experienced any transmural bowel injuries and given patient's above improvements I am inclined to continue supportive care as I see this as his best chance at minimizing the surgery intervention he will ultimately require. Neuro: As needed Dilaudid, add as needed Chloraseptic Pulm/CV: Close monitoring of patient's respiratory and hemodynamic statuses. Bolus LR 500 mL x 1 now, patient could be sat out of bed in a chair to optimize his respiratory status FEN/GI: Continue close monitoring of electrolytes during n.p.o. status, continueNG tube to low intermittent wall suction, Protonix, rectal tube to low intermittent wall suction, notify surgery of any significant changes to patient's abdominal exam or GI status, specifically : Ayala catheter to be placed imminently for strict ARINA monitoring Heme/ID: Continue to trend CBC, continue empiric IV Zosyn, azithromycin added byGI to try to stimulate peristalsis Endo: Continue glucose monitoring during n.p.o. state Proph: SCDs Dispo: Continue inpatient ICU care Charges/Coding Visit Charges Inpatient E&M: 18419 Subs Hosp L2 12/14/23 0841 <Electronically signed by Surjit Kirkland MD> Cosigner Signature (if applicable): CC: ~ Signed [facility] Work Phone: 1([phone]) 721-791702-24-2024 Consult note Author Kelley Shankar [facility] December 14, 2023 1:02am Note Date/Time December 13, 2023 8:09pm [facility] Medical Records Department [address] [place] [address] Consultation - Hospitalist 12/13/232006 MR#: [id number] Acct: [id number] Name: MAYNOR VIDES DANDRE Rep #:[id number] : 1945 78 From: Kelley Shankar MD PCP: Dr. Sarika Montaño MD Status:ADM IN Location: ICU ICU02-1 Assessment & Plan Assessment/Plan (1) Sigmoid volvulus: PLAN: Plan The patient is a 78 y/o M w/ PMHx: CKD stage II per GFR trending, Parkinson's disease otherwise healthy per himself and daughter report who presents to the [facility] ED on 12/13/23 with history of onset generalized abdominal discomfort with nausea and emesis starting during the evening with last notable intake [employer] the evening prior with chicken and coleslaw with onset around 10 PM of lower and periumbilical abdominal cramping noted to be intermittent with several episodes of nausea and emesis with emesis noted to be dark in color but not coffee-groundin appearance with no fevers or chills and last bowel movement the day prior butgiven ongoing symptoms prompted eventual ED evaluation. #1. Abdominal pain, nausea, emesis w/ concern for volvulus with associated Leukocytosis and Lactic acidosis: Patient admitted to the ICU following endoscopic suite colonoscopy with attempted decompression per surgery and GI, will maintain on IVFs, continue NGT to suction, strict I&Os, IV pain/anti-emetics PRN, serial KUB as needed to montior bowel function per surgery discretion, PPI IV, maintained NPO, maintained on IV zosyn, ICU consultation perSurgery primary service discretion. #2. SARITHA on Chronic Kidney Disease Stage II per GFR trending: Likely secondary to acute presentation #1, admission BUN/Cr 29/1.33, baseline renal function primarily 0.8-1.0, most recently 12/04/2023 creatinine 0.83, continue judicious hydration, repeat BMP in AM. #3. Hyperglycemia: Possibly stress response, admission glucose 179, hemoglobin C will be obtained to be cautious. #4. Parkinson's disease: Unless surgery opposed may continued oral PD medications with temporary clamping of NG tube. #5. DVT Prophylaxis: Recommend at least SCDs, chemoprophylaxis per Surgery discretion. #6. CODE status: Patient BRIA is his daughter who is present and living will is currently in place. Discussed CODE status at length including difference between FULL code, DNR-CCA and DNR-CC status. Following discussions about the differences in these status, requested Full Code status. Advanced Care Planning Face to Face Time: 16 minutes. HPI Consult Data Date of Consult: 12/14/23 HPI Narrative Reason for Consultation: Medical consultation HPI Narrative: The patient is a 78 y/o M w/ PMHx: CKD stage II per GFR trending, Parkinson's disease otherwise healthy per himself and daughter report who presents to the [facility] ED on 12/13/23 with history of onset generalized abdominal discomfort with nausea and emesis starting during the evening with last notable intake [employer] the evening prior with chicken and coleslaw with onset around 10 PM of lower and periumbilical abdominal cramping noted to be intermittent with several episodes of nausea and emesis with emesis noted to be dark in color but not coffee-groundin appearance with no fevers or chills and last bowel movement the day prior butgiven ongoing symptoms prompted eventual ED evaluation. Workup in the ED had included T97.8, heart rate 82, BP 154/84, respiratory rate 18, 98% on room air, CBC with WBC 24.8, hemoglobin 16.2, platelet 257 with left shift and lymphopenia, CMP with BUN/creatinine 29/1.33, glucose 179, lactic acid 3.0, T. bili 2.40 otherwise hepatic profile not marked appearing, lipase 15, urinalysis with specific gravity 1.015, protein 30, ketone 5, occult blood 25, positive nitrite, bilirubin 1, urobilinogen 4, leukocyte esterase 25, urine WBC 0-5 with no urine bacteria, urine culture pending per ED, CT abdomen and pelvis with marked degree of distention of the colon down to the region of the sigmoid colonwith concern for sigmoid volvulus, noted cyst in the upper portion of the left kidney. ED discussed patient with general surgery Dr. Kirkland who evaluated the patient with decision to transition to OR given concerns for sigmoid volvulus with GI involvement with transition for endoscopic intervention and requested EDinitiation of empiric Zosyn. Patient underwent attempted colonoscopy with unfortunately as expected poor colon prep, evidence of diverticulosis in the rectosigmoid colon and the sigmoid colon with evidence of volvulus with partial decompression achieved with rectal tube and NG tube placed for continued decompression with surgery concern for poorly appearing mucosa at that region with concern for ischemia. Given patient age MAC anesthesia was used only. In the ED patient had been administered 1 L normal saline, morphine 4 mg IV x 1, Zofran 4 mg IV x 1 in addition to IV Zosyn. [facility] Medical History (Updated 12/14/23 @ 00:[address] Kelley Shankar MD) CKD (chronic kidney disease), stage II Parkinson disease Home Medications amantadine HCl 100 mg capsule 100 mg PO DAILY [place] 12/04/23 [History Last Taken Unknown] carbidopa 25 mg-levodopa 100 mg tablet 1.5 tab PO DAILY 12/04/23 [History Last Taken Unknown] carbidopa ER 25 mg-levodopa 100 mg tablet,extended release 1 tab PO QHS [place] 12/04/23 [History Last Taken Unknown] carbidopa 25 mg-levodopa 100 mg tablet 1 tab PO BID 12/13/23 [History Last Taken Unknown] Allergy/AdvReac Type Severity Reaction Status Date / Time No Known Allergies Allergy Verified 12/13/23 11:57 Family History (Updated 12/14/23 @ 00:[address] Kelley Shankar MD) Mother Heart disease Father Heart disease Surgical History (Updated 12/14/23 @ 00:[address] Kelley Shankar MD) History of tonsillectomy and adenoidectomy Surgical History no surgical history Social History (Updated 12/14/23 @ 01:[address] Kelley Shankar MD) household members: none Smoking Status: Never smoker alcohol intake: never substance use type: does not use ROS ROS Narrative Admission Review of Systems: CONSTITUTIONAL: No weight loss, fever, chills, + weakness or fatigue. HEENT: Eyes: No visual loss, blurred vision, double vision or yellow sclerae. Ears, Nose, Throat: No hearing loss, sneezing, congestion, runny nose or sore throat. SKIN: No rash or itching, lesions, wounds. CARDIOVASCULAR: No chest pain, chest pressure or chest discomfort, palpitations,edema, orthopnea, syncopal events. RESPIRATORY: No shortness of breath, cough or sputum, wheezing, hemoptysis. GASTROINTESTINAL: + anorexia, nausea, vomiting, abdominal pain. No diarrhea, melena, BRBPR. GENITOURINARY: No dysuria, frequency, urgency or retention. NEUROLOGICAL: + Parkinson's disease with associated gait disturbance, tremors. No headache, dizziness, syncope, paralysis, ataxia, numbness or tingling in the extremities, focal weakness, change in bowel or bladder control, seizure. MUSCULOSKELETAL: + muscle, back pain, joint pain or stiffness. HEMATOLOGIC: No anemia, bleeding or bruising. LYMPHATICS: No enlarged nodes. No history of splenectomy. PSYCHIATRIC: No history of depression or anxiety. ENDOCRINOLOGIC: No reports of sweating, cold or heat intolerance. No polyuria orpolydipsia. ALLERGIES: No history of asthma, hives, eczema or rhinitis. Physical Exam Narrative Physical Examination: General: Awake, alert, oriented x 3 and cooperative, seated upright in ICU bed in no apparent distress, notes abdominal discomfort improved since initial ED presentation. Skin: Normal color, normal turgor, no icterus, no cyanosis except occasional staged ecchymoses. HEENT: AT/NC, EOMI, PERRLA, dry MM, NG tube in place, no carotid bruits or JVD noted. Lungs: Mildly diminished, greater bases, proper effort, no rales, ronchi or wheezing. Heart: Regular rate and rhythm; no gallop, rub audible. Abdomen: Soft, mild generalized discomfort but no rebound or guarding any notes it is better than initial ED arrival, no marked distention at this time, mildly hypoactive bowel sounds, no obvious HSM. Extremities: No cyanosis, clubbing, or edema. Neurological: Patient awake, alert, oriented as noted, cognitive function intact; pupils equally reactive to light and accommodation, cranial nerves grossly normal, moving all 4 extremities, no focal deficits, mild upper extremity pill-rolling tremor noted, right extremity greater than left, strengthseverely globally decreased secondary to acute presentation, compounded by underlying comorbidities. Psychiatric: Affect appears fatigued, no acute evidence of depressive or anxietyfeelings. Lab / Micro Data 12/13/23 12:40 12/13/23 12:40 Labs: Laboratory Results - last 24 hr 12/13/23 12:40: WBC 24.8 H, RBC 4.96, Hgb 16.2, Hct 46.8, MCV 94.4 H, MCH 32.7 H, MCHC 34.6, RDW Std Deviation 49.6 H, RDW Coeff of Ann 14.5, Plt Count 257, MPV11.0, Immature Gran % (Auto) 1.300 H, Neut % (Auto) 92.3 H, Lymph % (Auto) 1.7 L, [place] % (Auto) 4.2, Eos % (Auto) 0.0, Baso % (Auto) 0.5, Absolute Neuts (auto) 22.9 H, Absolute Lymphs (auto) 0.41 L, Nucleated RBC % 0, Differential Comment SCANNED, Diff Path Review May foll, Sodium 136, Potassium 4.5, Chloride 101, Carbon Dioxide 27.0, Anion Gap 8, BUN 29 H, Creatinine 1.33 H, Estim Creat ClearCalc 46.34, Est GFR (MDRD) Af Amer 67, Est GFR (MDRD) Non-Af 55 L, BUN/Creatinine Ratio 21.8 H, Glucose 179 H, Calcium 9.4, Total Bilirubin 2.40 H,AST 23, ALT 13 L, Alkaline Phosphatase 68, Total Protein 7.7, Albumin 3.8, Globulin 3.9, Albumin/Globulin Ratio 1.0, Lipase 15 12/13/23 14:57: Urine Color Yellow, Urine Clarity Clear, Urine pH 5.0, Ur Specific [place] 1.015, Urine Protein 30 H, Urine Glucose (UA) Normal, Urine Ketones 5 H, Urine Occult Blood 25 H, Urine Nitrite Positive H, Urine Bilirubin 1 H, Urine Urobilinogen 4 H, Ur Leukocyte Esterase 25 H, Urine RBC 0 SEEN, UrineWBC 0-5 SEEN, Ur Squamous Epith Cells 0 SEEN, Urine Bacteria 0 SEEN, Urine Mucus0 SEEN Imaging Radiology Impression Abdomen/Pelvis CT 12/13/23 13:46 IMPRESSION: Marked degree of distention of the colon down to the region of the sigmoid colon. Sigmoid volvulus should be ruled out. 6.1 cm x 5 0.6 mL cyst in the upper midportion of the left kidney. N.B. : The above Results were Read Back by Brady Mackenzie MD to PANCHO Barker, and understanding confirmed on 12/13/2023 14:42:30 (ET). Electronically Signed: Brady Mackenzie MD at 14:43 EST , ADDENDUM: 12/13/23 1450 IMPRESSION: Marked degree of distention of the colon down to the region of the sigmoid colon. Sigmoid volvulus should be ruled out. 6.1 cm x 5 0.6 mL cyst in the upper midportion of the left kidney. N.B. : The above Results were Read Back by Brady Mackenzie MD to PANCHO Barker, and understanding confirmed on 12/13/2023 14:42:30 (ET). Electronically Signed: Brady Mackenzie MD at 14:43 EST , Charges/Coding Visit Charges Office Visits / Consults: 85901 IP Consult L4 Procedures Hospitalists Procedures: 56546 Advncd Care Plan 30 Min 12/14/23 0102 <Electronically signed by Kelley Shankar MD> Cosigner Signature (if applicable): CC: Dr. Sarika Montaño MD; Dr. Eric Billingsley MD; Noman Friend, DO~ Signed [facility] Work Phone: 1(433) 921-241202-23-2024 History and physical note Author Surjit Kirkland [facility] December 13, 2023 7:37pm Note Date/Time December 13, 2023 3:44pm [facility] Medical Records Department [address] [place] [address] History & Physical Exam 12/13/23 1539 MR#: [id number] Acct: [id number] Name: MAYNOR VIDES III Rep #:[id number] : 1945 78 From: Surjit العراقي PCP: Dr. Sarika Montaño MD Status:ADM IN Location: ICU ICU02-1 HPI - General General Date of Admission: 12/13/23 HPI Narrative MAYNOR VIDES, is a 78 M who presents to [facility] with complaints of sudden onset abdominal pain and nausea/vomiting that began approximately 10 PM yesterday. Patient states that he has been unable to do anything besides drink some water today. He feels significant pain and pressureat this point. He does report some minimal passage of flatus throughout the dayand has not had a bowel movement. He has never had discomfort like this before. Patient's ER workup is notable for CBC that demonstrates a leukocytosis of 24.8. CT imaging of the abdomen pelvis read by radiology is concerning for sigmoid volvulus and demonstrates phonic distention up to 10 cm. Patient reports a history of a colonoscopy a few years ago and states that at that time everything was clear. He does confirm a history of constipation, but states this is well-managed with regular use of Metamucil. Patient has no prior abdominal surgical history. [facility] Medical History Parkinson disease Parkinson disease Home Medications amantadine HCl 100 mg capsule 100 mg PO DAILY [place] 12/04/23 [History Last Taken Unknown] carbidopa 25 mg-levodopa 100 mg tablet 1.5 tab PO DAILY 12/04/23 [History Last Taken Unknown] carbidopa ER 25 mg-levodopa 100 mg tablet,extended release 1 tab PO QHS [place] 12/04/23 [History Last Taken Unknown] carbidopa 25 mg-levodopa 100 mg tablet 1 tab PO BID 12/13/23 [History Last Taken Unknown] Allergy/AdvReac Type Severity Reaction Status Date / Time No Known Allergies Allergy Verified 12/13/23 11:57 Surgical History no surgical history Social History Smoking Status: Never smoker Vital Signs Vital Signs Vital Signs: 12/13/23 11:56 12/13/23 13:55 12/13/23 15:00 Temperature 97.8 F Temperature Source Temporal Pulse Rate 82 85 83 Respiratory Rate 18 16 16 Blood Pressure 154/84 H 159/85 H 160/90 H Blood Pressure Mean 107 109 113 Pulse Ox 98 100 100 Oxygen Delivery Method Room Air Room Air Room Air 12/13/23 15:14 Temperature 97.2 F L Temperature Source Pulse Rate 85 Respiratory Rate 16 Blood Pressure 160/40 H Blood Pressure Mean 80 Pulse Ox 99 Oxygen Delivery Method Weight Weight: 155 lb 4.8 oz Body Mass Index (BMI) 22.2 Physical Exam Const alert Constitutional Narrative: Mild distress from discomfort, oriented, cooperative GI GI Narrative: Thin, no scars, distended, mildly tympanitic, tenderness to palpation?primarily periumbilical Results Lab / Micro Data 12/13/23 12:40 12/13/23 12:40 Labs: Laboratory Results - last 24 hr 12/13/23 12:40: WBC 24.8 H, RBC 4.96, Hgb 16.2, Hct 46.8, MCV 94.4 H, MCH 32.7 H, MCHC 34.6, RDW Std Deviation 49.6 H, RDW Coeff of Ann 14.5, Plt Count 257, MPV11.0, Immature Gran % (Auto) 1.300 H, Neut % (Auto) 92.3 H, Lymph % (Auto) 1.7 L, [place] % (Auto) 4.2, Eos % (Auto) 0.0, Baso % (Auto) 0.5, Absolute Neuts (auto) 22.9 H, Absolute Lymphs (auto) 0.41 L, Nucleated RBC % 0, Differential Comment SCANNED, Diff Path Review February, Sodium 136, Potassium 4.5, Chloride 101, Carbon Dioxide 27.0, Anion Gap 8, BUN 29 H, Creatinine 1.33 H, Estim Creat ClearCalc 46.34, Est GFR (MDRD) Af Amer 67, Est GFR (MDRD) Non-Af 55 L, BUN/Creatinine Ratio 21.8 H, Glucose 179 H, Calcium 9.4, Total Bilirubin 2.40 H,AST 23, ALT 13 L, Alkaline Phosphatase 68, Total Protein 7.7, Albumin 3.8, Globulin 3.9, Albumin/Globulin Ratio 1.0, Lipase 15 12/13/23 14:57: Urine Color Yellow, Urine Clarity Clear, Urine pH 5.0, Ur Specific [place] 1.015, Urine Protein 30 H, Urine Glucose (UA) Normal, Urine Ketones 5 H, Urine Occult Blood 25 H, Urine Nitrite Positive H, Urine Bilirubin 1 H, Urine Urobilinogen 4 H, Ur Leukocyte Esterase 25 H, Urine RBC 0 SEEN, UrineWBC 0-5 SEEN, Ur Squamous Epith Cells 0 SEEN, Urine Bacteria 0 SEEN, Urine Mucus0 SEEN Imaging Radiology Impression Abdomen/Pelvis CT 12/13/23 13:46 IMPRESSION: Marked degree of distention of the colon down to the region of the sigmoid colon. Sigmoid volvulus should be ruled out. 6.1 cm x 5 0.6 mL cyst in the upper midportion of the left kidney. N.B. : The above Results were Read Back by Brady Mackenzie MD to PANCHO Barker, and understanding confirmed on 12/13/2023 14:42:30 (ET). Electronically Signed: Brady Mackenzie MD at 14:43 EST , ADDENDUM: 12/13/23 1450 IMPRESSION: Marked degree of distention of the colon down to the region of the sigmoid colon. Sigmoid volvulus should be ruled out. 6.1 cm x 5 0.6 mL cyst in the upper midportion of the left kidney. N.B. : The above Results were Read Back by Brady Mackenzie MD to PANCHO Barker, and understanding confirmed on 12/13/2023 14:42:30 (ET). Electronically Signed: Brady Mackenzie MD at 14:43 EST , Assessment & Plan Assessment/Plan (1) Sigmoid volvulus: PLAN: Patient is a 78-year-old male, with past medical history of Parkinson's, who presents with a 17-hour history of acute onset abdominal pain and nausea/vomiting. Diagnostic workup shows evidence of sigmoid volvulus. Patient's exam is remarkable for significant abdominal distention but he at this time doesnot show signs of peritonitis. Thus, I have asked gastroenterology to evaluate the patient emergently for consideration of endoscopic colonic decompression. Dr. Chen of gastroenterology has agreed and patient will be transferred from the emergency department to the endoscopy suite for this procedure. Post procedurally we will plan to manage the patient expectantly. Emergency medicinehas been asked to dose patient empirically with Zosyn. Medicine is consulted for comanagement/specifically assisting with Parkinson's management. Charges/Coding Visit Charges Inpatient E&M: 84650 Init Hosp L2 12/13/231936 <Electronically signed by Surjit Kirkland MD> Cosigner Signature (if applicable): CC: Dr. Sarika Montaño MD; Dr. Surjit Kirkland MD~ Signed [facility] Work Phone: 1([phone]) 126-183402-23-2024 Procedure [facility] 12-13-2023 Procedure [facility]02-23-2024 Discharge summary Author Monica James [facility] December 13, 2023 3:52pm Note Date/Time December 13, 2023 1:55pm [facility] Medical Records Department [address] [place] [address] Emergency Department Summary 12/13/23 MR#: [id number] Acct: [id number] Name: MAYNOR VIDES III Rep #:[id number] : 1945 78 From: Monica DELEON PCP: Dr. Sarika Montaño MD Status:ADM IN Location: [facility] [place] AV457-4 HPI <PNACHO Barker - Last Filed: 12/13/23 15:52> HPI - GI History of Present Illness Chief Complaint: Abd Pain Narrative Narrative: Patient presenting today due to abdominal pain, nausea, and vomiting that started last night. He reports that yesterday for dinner he had [employer] and coleslaw. Around 10 PM he began to have lower and periumbilical abdominal cramping. He reports that the pain is intermittent. He has had several episodes of vomiting. He reports that his vomit is dark in color. He denies coffee-ground emesis. He denies any history of bowel obstruction, diverticulitis, or previous abdominal surgeries. His last bowel movement was yesterday morning, he reports passing minimal gas today. He denies any fevers, chills, melena, hematochezia, and urinary symptoms. PMH includes Parkinson's disease. PFSH <PANCHO Barker - Last Filed: 12/13/23 15:52> PFSH Medical History Parkinson disease Parkinson disease Home Medications amantadine HCl 100 mg capsule 100 mg PO DAILY hill 12/04/23 [History Last Taken Unknown] carbidopa 25 mg-levodopa 100 mg tablet 1.5 tab PO DAILY 12/04/23 [History Last Taken Unknown] carbidopa ER 25 mg-levodopa 100 mg tablet,extended release 1 tab PO QHS hill 12/04/23 [History Last Taken Unknown] carbidopa 25 mg-levodopa 100 mg tablet 1 tab PO BID 12/13/23 [History Last Taken Unknown] Allergy/AdvReac Type Severity Reaction Status Date / Time No Known Allergies Allergy Verified 12/13/23 11:57 Social History Smoking Status: Never smoker ROS <PANCHO Barker - Last Filed: 12/13/23 15:52> ROS ED Constitutional Constitutional ED: Denies chills or fever(s) Cardiovascular Cardiovascular: Denies chest pain Respiratory/Chest Respiratory/Chest: Denies cough or dyspnea Gastrointestinal Gastrointestinal: Reports abdominal pain, nausea and vomiting; Denies constipation, diarrhea, hematemesis, hematochezia or melena Genitourinary Genitourinary ED: Denies dysuria, hematuria or urinary urgency Musculoskeletal Musculoskeletal: Denies arthralgias or myalgias Integumentary Denies rash Neurologic Neurologic: Denies weakness EXAM <PANCHO Barker - Last Filed: 12/13/23 15:52> Physical Exam Const Vital Signs: 12/13/23 11:56 12/13/23 13:55 12/13/23 15:00 Temperature 97.8 F Temperature Source Temporal Pulse Rate 82 85 83 Respiratory Rate 18 16 16 Blood Pressure 154/84 H 159/85 H 160/90 H Blood Pressure Mean 107 109 113 Pulse Ox 98 100 100 Oxygen Delivery Method Room Air Room Air Room Air 12/13/23 15:14 Temperature 97.2 F L Temperature Source Pulse Rate 85 Respiratory Rate 16 Blood Pressure 160/40 H Blood Pressure Mean 80 Pulse Ox 99 Oxygen Delivery Method Positive well nourished, well developed and no apparent distress General Appearance ED: well developed HEENT Reports normocephalic and head/scalp atraumatic Mouth ED: Yes moist mucous membranes normal Eyes PERRL and EOMs intact bilaterally Neck full ROM and supple Chest Wall inspection of chest normal Resp normal respiratory effort and clear to auscultation bilaterally Cardio regular rate and regular rhythm GI soft to palpation, non-distended and no masses GI Narrative: Diffuse lower abdominal tenderness to palpation, rigidity present, no guarding. Negative Mercedes sign Back/Spine normal ROM and normal to inspection Extremity normal to inspection and full ROM Neuro oriented x3, CN's II-XII intact bilaterally, moves all extremities, no focal motor deficits and no sensory deficits noted Sensorium / Orientation: awake and alert Psych mental status grossly normal and thought process normal Skin no rashes or lesions noted and no wounds <Dr. Nikolay Rose MD - Last Filed: 12/13/23 14:56> Physical Exam Const Vital Signs: 12/13/23 11:56 12/13/23 13:55 12/13/23 15:00 Temperature 97.8 F Temperature Source Temporal Pulse Rate 82 85 83 Respiratory Rate 18 16 16 Blood Pressure 154/84 H 159/85 H 160/90 H Blood Pressure Mean 107 109 113 Pulse Ox 98 100 100 Oxygen Delivery Method Room Air Room Air Room Air 12/13/23 15:14 Temperature 97.2 F L Temperature Source Pulse Rate 85 Respiratory Rate 16 Blood Pressure 160/40 H Blood Pressure Mean 80 Pulse Ox 99 Oxygen Delivery Method [facility] <Monica JamesPANCHO - Last Filed: 12/13/23 15:52> [facility] Narrative Medical decision making narrative: Patient presenting due to lower abdominal pain, nausea, and vomiting that started last night. He does have rigidity and tenderness across his lower abdomen. Labs will be obtained to rule out leukocytosis, anemia, electrode abnormality, hepatobiliary etiology, SARITHA, and UTI. CT of the abdomen and pelviswill be obtained to rule out diverticulitis, appendicitis, bowel obstruction, cholecystitis, and other etiology. He will be given IV fluids, morphine, and Zofran. The radiologist did report concerns for sigmoid volvulus. General surgeon, Dr. Kirkland was consulted and came to evaluate the patient. He will be taking patient to the OR in stable condition. I have personally performed a face to face assessment of the patient and have reviewed the TRACEY Note. I performed a substantive portion of the visit including all aspects of the following. My polanco findings include: History is [78-year-old male complaining of lower abdominal pain since about 10 PM last night. No prior abdominal surgeries. No dysuria or urinary retention. No fever. He has had nausea and vomiting. No diarrhea. No bowel movement. No dysuria.] Exam is [78-year-old male vital signs stable afebrile. HEENT exam dry mucous membranes. Neck nontender. Lungs clear to auscultation. Heart regular rhythm rate about 80 no murmur. Chest wall and ribs nontender. Abdomen distended consistent with a bowel obstruction. Primarily tender in the lower quadrants. I do not appreciate any bowel sounds. No mass. Moving all 4 extremities. Nontender no edema. Neurologically is awake and alert with no focal motor deficits.] Medical Decision Making [78-year-old male concern for a bowel obstruction. CAT scan and labs pending. CAT scan shows a bowel obstruction possibly a sigmoid volvulus. I have already spoken to Dr. Surjit Kirkland general surgery will be down evaluate the patient.] Other additions or changes: [Patient was treated with IV morphine and Zofran. Currently his pain is under control. He also was given a liter normal saline.] Lab Data Attestation: I reviewed the patient's lab results. Labs: Laboratory Results - last 24 hr 12/13/23 12/13/23 12:40 14:57 WBC 24.8 H RBC 4.96 Hgb 16.2 Hct 46.8 MCV 94.4 H MCH 32.7 H MCHC 34.6 RDW Std Deviation 49.6 H RDW Coeff of Ann 14.5 Plt Count 257 MPV 11.0 Immature Gran % (Auto) 1.300 H Neut % (Auto) 92.3 H Lymph % (Auto) 1.7 L [place] % (Auto) 4.2 Eos % (Auto) 0.0 Baso % (Auto) 0.5 Absolute Neuts (auto) 22.9 H Absolute Lymphs (auto) 0.41 L Nucleated RBC % 0 Differential Comment SCANNED Diff Path Review May foll Sodium 136 Potassium 4.5 Chloride 101 Carbon Dioxide 27.0 Anion Gap 8 BUN 29 H Creatinine 1.33 H Estim Creat Clear Calc 46.34 Est GFR (MDRD) Af Amer 67 Est GFR (MDRD) Non-Af 55 L BUN/Creatinine Ratio 21.8 H Glucose 179 H Calcium 9.4 Total Bilirubin 2.40 H AST 23 ALT 13 L Alkaline Phosphatase 68 Total Protein 7.7 Albumin 3.8 Globulin 3.9 Albumin/Globulin Ratio 1.0 Lipase 15 Urine Color Yellow Urine Clarity Clear Urine pH 5.0 Ur Specific [place] 1.015 Urine Protein 30 H Urine Glucose (UA) Normal Urine Ketones 5 H Urine Occult Blood 25 H Urine Nitrite Positive H Urine Bilirubin 1 H Urine Urobilinogen 4 H Ur Leukocyte Esterase 25 H Urine RBC 0 SEEN Urine WBC 0-5 SEEN Ur Squamous Epith Cells 0 SEEN Urine Bacteria 0 SEEN Urine Mucus 0 SEEN Radiography Diagnostic Testing: Clinical Impression(s) from Imaging Studies Abdomen/Pelvis CT 12/13/23 13:46 IMPRESSION: Marked degree of distention of the colon down to the region of the sigmoid colon. Sigmoid volvulus should be ruled out. 6.1 cm x 5 0.6 mL cyst in the upper midportion of the left kidney. N.B. : The above Results were Read Back by Brady Mackenzie MD to PANCHO Barker, and understanding confirmed on 12/13/2023 14:42:30 (ET). Electronically Signed: Brady Mackenzie MD at 14:43 EST , ADDENDUM: 12/13/23 1450 IMPRESSION: Marked degree of distention of the colon down to the region of the sigmoid colon. Sigmoid volvulus should be ruled out. 6.1 cm x 5 0.6 mL cyst in the upper midportion of the left kidney. N.B. : The above Results were Read Back by Brady Mackenzie MD to PANCHO Barker, and understanding confirmed on 12/13/2023 14:42:30 (ET). Electronically Signed: Brady Mackenzie MD at 14:43 EST , <Dr. Nikolay Rose MD - Last Filed: 12/13/23 14:56> MDM MDM Narrative Medical decision making narrative: Patient presenting due to lower abdominal pain, nausea, and vomiting that started last night. He does have tenderness across his lower abdomen. Labs will be obtained to rule out leukocytosis, anemia, electrode abnormality, hepatobiliary etiology, SARITHA, and UTI. CT of the abdomen and pelvis will be obtained to rule out diverticulitis, appendicitis, bowel obstruction, cholecystitis, and other etiology. He will be given IV fluids, morphine, and Zofran. I have personally performed a face to face assessment of the patient and have reviewed the TRACEY Note. I performed a substantive portion of the visit including all aspects of the following. My polanco findings include: History is [78-year-old male complaining of lower abdominal pain since about 10 PM last night. No prior abdominal surgeries. No dysuria or urinary retention. No fever. He has had nausea and vomiting. No diarrhea. No bowel movement. No dysuria.] Exam is [78-year-old male vital signs stable afebrile. HEENT exam dry mucous membranes. Neck nontender. Lungs clear to auscultation. Heart regular rhythm rate about 80 no murmur. Chest wall and ribs nontender. Abdomen distended consistent with a bowel obstruction. Primarily tender in the lower quadrants. I do not appreciate any bowel sounds. No mass. Moving all 4 extremities. Nontender no edema. Neurologically is awake and alert with no focal motor deficits.] Medical Decision Making [78-year-old male concern for a bowel obstruction. CAT scan and labs pending. CAT scan shows a bowel obstruction possibly a sigmoid volvulus. I have already spoken to Dr. Surjit Kirkland general surgery will be down evaluate the patient.] Other additions or changes: [Patient was treated with IV morphine and Zofran. Currently his pain is under control. He also was given a liter normal saline.] History & Record Review Discussion w/independent historian: Patient and Family Additional record(s) reviewed:: Prior inpatient record, Prior outpatient record,Prior ED visit and Prior labs Lab Data Lab results narrative: CBC shows an elevated white count of 24,000. H&H is 16 and 46. Electrolytes show a gap of 8. BUN of 29 creatinine 1.3. Liver enzymes are unremarkable. Lipase is normal at 15. Labs: Laboratory Results - last 24 hr 12/13/23 12/13/23 12:40 14:57 WBC 24.8 H RBC 4.96 Hgb 16.2 Hct 46.8 MCV 94.4 H MCH 32.7 H MCHC 34.6 RDW Std Deviation 49.6 H RDW Coeff of Ann 14.5 Plt Count 257 MPV 11.0 Immature Gran % (Auto) 1.300 H Neut % (Auto) 92.3 H Lymph % (Auto) 1.7 L [place] % (Auto) 4.2 Eos % (Auto) 0.0 Baso % (Auto) 0.5 Absolute Neuts (auto) 22.9 H Absolute Lymphs (auto) 0.41 L Nucleated RBC % 0 Differential Comment SCANNED Diff Path Review May foll Sodium 136 Potassium 4.5 Chloride 101 Carbon Dioxide 27.0 Anion Gap 8 BUN 29 H Creatinine 1.33 H Estim Creat Clear Calc 46.34 Est GFR (MDRD) Af Amer 67 Est GFR (MDRD) Non-Af 55 L BUN/Creatinine Ratio 21.8 H Glucose 179 H Calcium 9.4 Total Bilirubin 2.40 H AST 23 ALT 13 L Alkaline Phosphatase 68 Total Protein 7.7 Albumin 3.8 Globulin 3.9 Albumin/Globulin Ratio 1.0 Lipase 15 Urine Color Yellow Urine Clarity Clear Urine pH 5.0 Ur Specific [place] 1.015 Urine Protein 30 H Urine Glucose (UA) Normal Urine Ketones 5 H Urine Occult Blood 25 H Urine Nitrite Positive H Urine Bilirubin 1 H Urine Urobilinogen 4 H Ur Leukocyte Esterase 25 H Urine RBC 0 SEEN Urine WBC 0-5 SEEN Ur Squamous Epith Cells 0 SEEN Urine Bacteria 0 SEEN Urine Mucus 0 SEEN Radiography Diagnostic Testing: Clinical Impression(s) from Imaging Studies Abdomen/Pelvis CT 12/13/23 13:46 IMPRESSION: Marked degree of distention of the colon down to the region of the sigmoid colon. Sigmoid volvulus should be ruled out. 6.1 cm x 5 0.6 mL cyst in the upper midportion of the left kidney. N.B. : The above Results were Read Back by Brady Mackenzie MD to PANCHO Barker, and understanding confirmed on 12/13/2023 14:42:30 (ET). Electronically Signed: Brady Mackenzie MD at 14:43 EST , ADDENDUM: 12/13/23 1450 IMPRESSION: Marked degree of distention of the colon down to the region of the sigmoid colon. Sigmoid volvulus should be ruled out. 6.1 cm x 5 0.6 mL cyst in the upper midportion of the left kidney. N.B. : The above Results were Read Back by Brady Mackenzie MD to PANCHO Barker, and understanding confirmed on 12/13/2023 14:42:30 (ET). Electronically Signed: Brady Mackenzie MD at 14:43 EST , Discharge Plan Triage Chief Complaint: Abd Pain ED Midlevel Provider: Monica James ED Provider: Nikolay Rose Dx/Rx/DC Orders Clinical Impression: Bowel obstruction, Nausea & vomiting Primary Care Provider: Sarika Montaño Disposition Disposition: Acute Care Hospital [facility] What to do if you have Problems For any increased pain, shortness of breath, bleeding, nausea or vomiting, chestpain, or any unexpected problems, contact your Primary Care Provider. Call [facility] ([phone]) or report to the closest Emergency Room. Call 911 if necessary. 12/13/23 1552 <Electronically signed by Monica DELEON> Cosigner Signature (if applicable): 12/13/23 1541 <Electronically signed by Nikolay Rose MD> CC: Dr. Sarika Montaño MD ~ Signed [facility] Work Phone: 1(912) 212-686802-23-2024 Discharge summary Author Monica James [facility] December 13, 2023 3:52pm Note Date/Time December 13, 2023 1:55pm [facility] Medical Records Department [address] [place] [address] Emergency Department Summary 12/13/23 MR#: [id number] Acct: [id number] Name: MAYNOR VIDES III Rep #:[id number] : 1945 78 From: Monica DELEON PCP: Dr. Sarika Montaño MD Status:ADM IN Location: [facility] [place] FY858-6 HPI <PANCHO Barker - Last Filed: 12/13/23 15:52> HPI - GI History of Present Illness Chief Complaint: Abd Pain Narrative Narrative: Patient presenting today due to abdominal pain, nausea, and vomiting that started last night. He reports that yesterday for dinner he had [employer] and coleslaw. Around 10 PM he began to have lower and periumbilical abdominal cramping. He reports that the pain is intermittent. He has had several episodes of vomiting. He reports that his vomit is dark in color. He denies coffee-ground emesis. He denies any history of bowel obstruction, diverticulitis, or previous abdominal surgeries. His last bowel movement was yesterday morning, he reports passing minimal gas today. He denies any fevers, chills, melena, hematochezia, and urinary symptoms. PMH includes Parkinson's disease. PFSH <PANCHO Barker - Last Filed: 12/13/23 15:52> PFSH Medical History Parkinson disease Parkinson disease Home Medications amantadine HCl 100 mg capsule 100 mg PO DAILY hill 12/04/23 [History Last Taken Unknown] carbidopa 25 mg-levodopa 100 mg tablet 1.5 tab PO DAILY 12/04/23 [History Last Taken Unknown] carbidopa ER 25 mg-levodopa 100 mg tablet,extended release 1 tab PO QHS hill 12/04/23 [History Last Taken Unknown] carbidopa 25 mg-levodopa 100 mg tablet 1 tab PO BID 12/13/23 [History Last Taken Unknown] Allergy/AdvReac Type Severity Reaction Status Date / Time No Known Allergies Allergy Verified 12/13/23 11:57 Social History Smoking Status: Never smoker ROS <PANCHO Barker - Last Filed: 12/13/23 15:52> ROS ED Constitutional Constitutional ED: Denies chills or fever(s) Cardiovascular Cardiovascular: Denies chest pain Respiratory/Chest Respiratory/Chest: Denies cough or dyspnea Gastrointestinal Gastrointestinal: Reports abdominal pain, nausea and vomiting; Denies constipation, diarrhea, hematemesis, hematochezia or melena Genitourinary Genitourinary ED: Denies dysuria, hematuria or urinary urgency Musculoskeletal Musculoskeletal: Denies arthralgias or myalgias Integumentary Denies rash Neurologic Neurologic: Denies weakness EXAM <PANCHO Barker - Last Filed: 12/13/23 15:52> Physical Exam Const Vital Signs: 12/13/23 11:56 12/13/23 13:55 12/13/23 15:00 Temperature 97.8 F Temperature Source Temporal Pulse Rate 82 85 83 Respiratory Rate 18 16 16 Blood Pressure 154/84 H 159/85 H 160/90 H Blood Pressure Mean 107 109 113 Pulse Ox 98 100 100 Oxygen Delivery Method Room Air Room Air Room Air 12/13/23 15:14 Temperature 97.2 F L Temperature Source Pulse Rate 85 Respiratory Rate 16 Blood Pressure 160/40 H Blood Pressure Mean 80 Pulse Ox 99 Oxygen Delivery Method Positive well nourished, well developed and no apparent distress General Appearance ED: well developed HEENT Reports normocephalic and head/scalp atraumatic Mouth ED: Yes moist mucous membranes normal Eyes PERRL and EOMs intact bilaterally Neck full ROM and supple Chest Wall inspection of chest normal Resp normal respiratory effort and clear to auscultation bilaterally Cardio regular rate and regular rhythm GI soft to palpation, non-distended and no masses GI Narrative: Diffuse lower abdominal tenderness to palpation, rigidity present, no guarding. Negative Mercedes sign Back/Spine normal ROM and normal to inspection Extremity normal to inspection and full ROM Neuro oriented x3, CN's II-XII intact bilaterally, moves all extremities, no focal motor deficits and no sensory deficits noted Sensorium / Orientation: awake and alert Psych mental status grossly normal and thought process normal Skin no rashes or lesions noted and no wounds <Dr. Nikolay Rose MD - Last Filed: 12/13/23 14:56> Physical Exam Const Vital Signs: 12/13/23 11:56 12/13/23 13:55 12/13/23 15:00 Temperature 97.8 F Temperature Source Temporal Pulse Rate 82 85 83 Respiratory Rate 18 16 16 Blood Pressure 154/84 H 159/85 H 160/90 H Blood Pressure Mean 107 109 113 Pulse Ox 98 100 100 Oxygen Delivery Method Room Air Room Air Room Air 12/13/23 15:14 Temperature 97.2 F L Temperature Source Pulse Rate 85 Respiratory Rate 16 Blood Pressure 160/40 H Blood Pressure Mean 80 Pulse Ox 99 Oxygen Delivery Method MDM <PANCHO Barker - Last Filed: 12/13/23 15:52> [facility] Narrative Medical decision making narrative: Patient presenting due to lower abdominal pain, nausea, and vomiting that started last night. He does have rigidity and tenderness across his lower abdomen. Labs will be obtained to rule out leukocytosis, anemia, electrode abnormality, hepatobiliary etiology, SARITHA, and UTI. CT of the abdomen and pelviswill be obtained to rule out diverticulitis, appendicitis, bowel obstruction, cholecystitis, and other etiology. He will be given IV fluids, morphine, and Zofran. The radiologist did report concerns for sigmoid volvulus. General surgeon, Dr. Kirkland was consulted and came to evaluate the patient. He will be taking patient to the OR in stable condition. I have personally performed a face to face assessment of the patient and have reviewed the TRACEY Note. I performed a substantive portion of the visit including all aspects of the following. My polanco findings include: History is [78-year-old male complaining of lower abdominal pain since about 10 PM last night. No prior abdominal surgeries. No dysuria or urinary retention. No fever. He has had nausea and vomiting. No diarrhea. No bowel movement. No dysuria.] Exam is [78-year-old male vital signs stable afebrile. HEENT exam dry mucous membranes. Neck nontender. Lungs clear to auscultation. Heart regular rhythm rate about 80 no murmur. Chest wall and ribs nontender. Abdomen distended consistent with a bowel obstruction. Primarily tender in the lower quadrants. I do not appreciate any bowel sounds. No mass. Moving all 4 extremities. Nontender no edema. Neurologically is awake and alert with no focal motor deficits.] Medical Decision Making [78-year-old male concern for a bowel obstruction. CAT scan and labs pending. CAT scan shows a bowel obstruction possibly a sigmoid volvulus. I have already spoken to Dr. Surjit Kirkland general surgery will be down evaluate the patient.] Other additions or changes: [Patient was treated with IV morphine and Zofran. Currently his pain is under control. He also was given a liter normal saline.] Lab Data Attestation: I reviewed the patient's lab results. Labs: Laboratory Results - last 24 hr 12/13/23 12/13/23 12:40 14:57 WBC 24.8 H RBC 4.96 Hgb 16.2 Hct 46.8 MCV 94.4 H MCH 32.7 H MCHC 34.6 RDW Std Deviation 49.6 H RDW Coeff of Ann 14.5 Plt Count 257 MPV 11.0 Immature Gran % (Auto) 1.300 H Neut % (Auto) 92.3 H Lymph % (Auto) 1.7 L [place] % (Auto) 4.2 Eos % (Auto) 0.0 Baso % (Auto) 0.5 Absolute Neuts (auto) 22.9 H Absolute Lymphs (auto) 0.41 L Nucleated RBC % 0 Differential Comment SCANNED Diff Path Review May foll Sodium 136 Potassium 4.5 Chloride 101 Carbon Dioxide 27.0 Anion Gap 8 BUN 29 H Creatinine 1.33 H Estim Creat Clear Calc 46.34 Est GFR (MDRD) Af Amer 67 Est GFR (MDRD) Non-Af 55 L BUN/Creatinine Ratio 21.8 H Glucose 179 H Calcium 9.4 Total Bilirubin 2.40 H AST 23 ALT 13 L Alkaline Phosphatase 68 Total Protein 7.7 Albumin 3.8 Globulin 3.9 Albumin/Globulin Ratio 1.0 Lipase 15 Urine Color Yellow Urine Clarity Clear Urine pH 5.0 Ur Specific [place] 1.015 Urine Protein 30 H Urine Glucose (UA) Normal Urine Ketones 5 H Urine Occult Blood 25 H Urine Nitrite Positive H Urine Bilirubin 1 H Urine Urobilinogen 4 H Ur Leukocyte Esterase 25 H Urine RBC 0 SEEN Urine WBC 0-5 SEEN Ur Squamous Epith Cells 0 SEEN Urine Bacteria 0 SEEN Urine Mucus 0 SEEN Radiography Diagnostic Testing: Clinical Impression(s) from Imaging Studies Abdomen/Pelvis CT 12/13/23 13:46 IMPRESSION: Marked degree of distention of the colon down to the region of the sigmoid colon. Sigmoid volvulus should be ruled out. 6.1 cm x 5 0.6 mL cyst in the upper midportion of the left kidney. N.B. : The above Results were Read Back by Brady Mackenzie MD to PANCHO Barker, and understanding confirmed on 12/13/2023 14:42:30 (ET). Electronically Signed: Brady Mackenzie MD at 14:43 EST , ADDENDUM: 12/13/23 1450 IMPRESSION: Marked degree of distention of the colon down to the region of the sigmoid colon. Sigmoid volvulus should be ruled out. 6.1 cm x 5 0.6 mL cyst in the upper midportion of the left kidney. N.B. : The above Results were Read Back by Brady Mackenzie MD to PANCHO Barker, and understanding confirmed on 12/13/2023 14:42:30 (ET). Electronically Signed: Brady Mackenzie MD at 14:43 EST , <Dr. Nikolay Rose MD - Last Filed: 12/13/23 14:56> [facility] Narrative Medical decision making narrative: Patient presenting due to lower abdominal pain, nausea, and vomiting that started last night. He does have tenderness across his lower abdomen. Labs will be obtained to rule out leukocytosis, anemia, electrode abnormality, hepatobiliary etiology, SARITHA, and UTI. CT of the abdomen and pelvis will be obtained to rule out diverticulitis, appendicitis, bowel obstruction, cholecystitis, and other etiology. He will be given IV fluids, morphine, and Zofran. I have personally performed a face to face assessment of the patient and have reviewed the TRACEY Note. I performed a substantive portion of the visit including all aspects of the following. My polanco findings include: History is [78-year-old male complaining of lower abdominal pain since about 10 PM last night. No prior abdominal surgeries. No dysuria or urinary retention. No fever. He has had nausea and vomiting. No diarrhea. No bowel movement. No dysuria.] Exam is [78-year-old male vital signs stable afebrile. HEENT exam dry mucous membranes. Neck nontender. Lungs clear to auscultation. Heart regular rhythm rate about 80 no murmur. Chest wall and ribs nontender. Abdomen distended consistent with a bowel obstruction. Primarily tender in the lower quadrants. I do not appreciate any bowel sounds. No mass. Moving all 4 extremities. Nontender no edema. Neurologically is awake and alert with no focal motor deficits.] Medical Decision Making [78-year-old male concern for a bowel obstruction. CAT scan and labs pending. CAT scan shows a bowel obstruction possibly a sigmoid volvulus. I have already spoken to Dr. Surjit Kirkland general surgery will be down evaluate the patient.] Other additions or changes: [Patient was treated with IV morphine and Zofran. Currently his pain is under control. He also was given a liter normal saline.] History & Record Review Discussion w/independent historian: Patient and Family Additional record(s) reviewed:: Prior inpatient record, Prior outpatient record,Prior ED visit and Prior labs Lab Data Lab results narrative: CBC shows an elevated white count of 24,000. H&H is 16 and 46. Electrolytes show a gap of 8. BUN of 29 creatinine 1.3. Liver enzymes are unremarkable. Lipase is normal at 15. Labs: Laboratory Results - last 24 hr 12/13/23 12/13/23 12:40 14:57 WBC 24.8 H RBC 4.96 Hgb 16.2 Hct 46.8 MCV 94.4 H MCH 32.7 H MCHC 34.6 RDW Std Deviation 49.6 H RDW Coeff of Ann 14.5 Plt Count 257 MPV 11.0 Immature Gran % (Auto) 1.300 H Neut % (Auto) 92.3 H Lymph % (Auto) 1.7 L [place] % (Auto) 4.2 Eos % (Auto) 0.0 Baso % (Auto) 0.5 Absolute Neuts (auto) 22.9 H Absolute Lymphs (auto) 0.41 L Nucleated RBC % 0 Differential Comment SCANNED Diff Path Review May foll Sodium 136 Potassium 4.5 Chloride 101 Carbon Dioxide 27.0 Anion Gap 8 BUN 29 H Creatinine 1.33 H Estim Creat Clear Calc 46.34 Est GFR (MDRD) Af Amer 67 Est GFR (MDRD) Non-Af 55 L BUN/Creatinine Ratio 21.8 H Glucose 179 H Calcium 9.4 Total Bilirubin 2.40 H AST 23 ALT 13 L Alkaline Phosphatase 68 Total Protein 7.7 Albumin 3.8 Globulin 3.9 Albumin/Globulin Ratio 1.0 Lipase 15 Urine Color Yellow Urine Clarity Clear Urine pH 5.0 Ur Specific [place] 1.015 Urine Protein 30 H Urine Glucose (UA) Normal Urine Ketones 5 H Urine Occult Blood 25 H Urine Nitrite Positive H Urine Bilirubin 1 H Urine Urobilinogen 4 H Ur Leukocyte Esterase 25 H Urine RBC 0 SEEN Urine WBC 0-5 SEEN Ur Squamous Epith Cells 0 SEEN Urine Bacteria 0 SEEN Urine Mucus 0 SEEN Radiography Diagnostic Testing: Clinical Impression(s) from Imaging Studies Abdomen/Pelvis CT 12/13/23 13:46 IMPRESSION: Marked degree of distention of the colon down to the region of the sigmoid colon. Sigmoid volvulus should be ruled out. 6.1 cm x 5 0.6 mL cyst in the upper midportion of the left kidney. N.B. : The above Results were Read Back by Brady Mackenzie MD to PANCHO Barker, and understanding confirmed on 12/13/2023 14:42:30 (ET). Electronically Signed: Brady Mackenzie MD at 14:43 EST , ADDENDUM: 12/13/23 1450 IMPRESSION: Marked degree of distention of the colon down to the region of the sigmoid colon. Sigmoid volvulus should be ruled out. 6.1 cm x 5 0.6 mL cyst in the upper midportion of the left kidney. N.B. : The above Results were Read Back by Brady Mackenzie MD to PANCHO Barker, and understanding confirmed on 12/13/2023 14:42:30 (ET). Electronically Signed: Brady Mackenzie MD at 14:43 EST , Discharge Plan Triage Chief Complaint: Abd Pain ED Midlevel Provider: Monica James ED Provider: Nikolay Rose Dx/Rx/DC Orders Clinical Impression: Bowel obstruction, Nausea & vomiting Primary Care Provider: Sarika Montaño Disposition Disposition: Acute Care Hospital [facility] What to do if you have Problems For any increased pain, shortness of breath, bleeding, nausea or vomiting, chestpain, or any unexpected problems, contact your Primary Care Provider. Call [facility] ([phone]) or report to the closest Emergency Room. Call 911 if necessary. 12/13/23 1552 <Electronically signed by Monica DELEON> Cosigner Signature (if applicable): 12/13/23 1541 <Electronically signed by Nikolay Rose MD> CC: Dr. Sarika Montaño MD ~ Signed [facility] Work Phone: 1(284) 463-829502-14-2024 Progress note Author Fritz Srivastava [facility] December 04, 2023 12:31pm Note Date/Time December 04, 2023 7:59am [facility] Medical Records Department [address] [place] [address] Progress Note - Hospitalist 12/04/23 0756 MR#: [id number] Acct: [id number] Name: MAYNOR VIDES III Rep #:[id number] : 1945 78 From: Fritz Srivastava DO PCP: Dr. Sarika Montaño MD Status:ADM ARINA Location: [facility] [id number] Reason for Visit Reason for Visit: Diagnoses Parkinson's disease with dyskinesia, with fluctuations (12/04/23) Acute recurrent sinusitis, unspecified (12/04/23) Other general symptoms and signs (12/04/23) Unspecified fall, initial encounter (12/04/23) Unspecified place in unspecified non-institutional (private) residence as the place of occurrence of the external cause (12/04/23) Other specified health status (12/04/23) Subjective Subjective Feeling weak overall. Objective Data Objective Data Vital Signs: Vital Signs Temp Pulse Resp BP Pulse Ox O2 Del Method 36.6 C 71 16 133/83 H 95 Room Air 12/04/23 07:16 12/04/23 07:16 12/04/23 07:24 12/04/23 07:16 12/04/23 07:26 12/04/23 07:26 Oxygen Delivery Method Room Air Weight: 68.49 kg Body Mass Index (BMI) 21.6 Intake & Output: Intake and Output for Last 24 Hours 12/02/23 12/03/23 12/04/23 23:59 23:59 23:59 Intake Total 550 / 550 Output Total 200 / 200 Balance 350 / 350 Lab / Micro Data 12/04/23 07:24 12/04/23 07:24 Labs: Laboratory Results - last 24 hr 12/03/23 21:55: Urine Color Yellow, Urine Clarity Clear, Urine pH 6.0, Ur Specific [place] 1.025, Urine Protein Negative, Urine Glucose (UA) Normal, UrineKetones 5 H, Urine Occult Blood 25 H, Urine Nitrite Negative, Urine Bilirubin Negative, Urine Urobilinogen Normal, Ur Leukocyte Esterase 25 H, Urine RBC 0-5 SEEN, Urine WBC 0-5 SEEN, Ur Squamous Epith Cells 0 SEEN, Urine Bacteria 0 SEEN,Urine Mucus 0 SEEN 12/03/23 22:00: WBC 7.2, RBC 4.66, Hgb 15.0, Hct 43.3, MCV 92.9, MCH 32.2 H, MCHC 34.6, RDW Std Deviation 48.2 H, RDW Coeff of Ann 14.3, Plt Count 196, MPV 10.5, Immature Gran % (Auto) 0.600, Neut % (Auto) 76.8 H, Lymph % (Auto) 14.4 L,[place] % (Auto) 7.4, Eos % (Auto) 0.4, Baso % (Auto) 0.4, Absolute Neuts (auto) 5.5, Absolute Lymphs (auto) 1.03, Nucleated RBC % 0, Sodium 142, Potassium 3.8, Chloride 108 H, Carbon Dioxide 27.0, Anion Gap 7, BUN 21 H, Creatinine 0.98, Estim Creat Clear Calc 63.30, Est GFR (MDRD) Af Amer 96, Est GFR (MDRD) Non-Af 79, BUN/Creatinine Ratio 21.5 H, Glucose 108 H, Calcium 9.2 12/04/23 07:24: WBC 8.1, RBC 4.51 L, Hgb 14.2, Hct 42.1, MCV 93.3, MCH 31.5, MCHC 33.7, RDW Std Deviation 48.2 H, RDW Coeff of Ann 14.2, Plt Count 184, MPV 10.9, Immature Gran % (Auto) 0.700, Neut % (Auto) 81.9 H, Lymph % (Auto) 10.6 L,[place] % (Auto) 6.0, Eos % (Auto) 0.4, Baso % (Auto) 0.4, Absolute Neuts (auto) 6.7, Absolute Lymphs (auto) 0.86, Nucleated RBC % 0 Micro: Microbiology 12/03/23 21:50 Mucosa - Nose SARS-CoV-2, Influenza & RSV (PCR) - Final Radiography Diagnostic Testing: Radiology Impression Brain CT 12/03/23 21:41 IMPRESSION: Chronic changes as described with no acute intracranial hemorrhage or space-occupying lesion. Electronically Signed: Lashawn Salazar MD at 22:34 EST , Physical Exam Const alert and no apparent distress Constitutional Narrative: Moves all extremities spontaneously. Globally overall weak.. Sitting up in a chair. Awake and alert. Assessment & Plan Assessment/Plan (1) Parkinson disease: QUALIFIERS: Dyskinesia presence: with dyskinesia Fluctuating manifestations: with fluctuating manifestations Qualified Code(s): G20.B2 - Parkinson's disease with dyskinesia, with fluctuations PLAN: Plan Debility * complicated by known Parkinson's disease, may be exacerbated. * PT OT * Patient decided to follow-up with outpatient therapy. Chronic sinusitis * I would not qualify this as a treatment failure as he was treated several weeks ago. Also, I would not qualify this as acute, but rather chronic. * DC CTX, start Flonase. Chronic conditions: * Essential hypertension - Resume hydrochlorothiazide as previous plus give as needed IV hydralazine for systolic blood pressure greater than 160 mmHg. * PD: continue carbidopa/levodopa DVT prophylaxis - Lovenox 40 mg sq daily. 12/04/23 1231 <Electronically signed by Fritz Srivastava DO> Cosigner Signature (if applicable): CC: ~ Signed [facility] Work Phone: 1(498) 213-284602-14-2024 History and physical note Author Marcelo Fried [facility] December 04, 2023 4:15am Note Date/Time December 04, 2023 12:34am [facility] Medical Records Department [address] [place] [id number] H&P Exam - Hospitalist 12/04/23 0031 MR#: [id number] Acct: [id number] Name: MAYNOR VIDES III Rep #:[id number] : 1945 78 From: Marcelo Hanks DO PCP: Dr. Sarika Montaño MD Status:ADM ARINA Location: [facility] [place] [id number] HPI - General General Date of Admission: 12/04/23 Date of Service: 12/04/23 Chief Complaint: Unable to Walk plus sinus infection. HPI Narrative MAYNOR VIDES, is a 78 M with a past medical history of essential hypertension; on HCTZ and Parkinson's disease; previously well-controlled on Sinemet and amantadine who presents to [facility] ER complainingof being unable to walk plus sinus infection. Mr. Vides reports his symptoms began approximately 1 month prior to arrival with sinus congestion and fullness resulting in him being diagnosed with acute sinusitis and treated with oral antibiotics with transient improvement. Then approximately 3 weeks prior to admission he began to have increasing sinus pressure and worsening congestion with malaise then on November, he noticed increased stiffness in his left lower extremity that made it hard for him to ambulate. Then on Saturday and Saturday the symptoms became worse with him becoming too weak to evenget up off the couch resulting in him rolling onto the floor but thankfully he did not sustain significant injuries. He denies associated fever, chills, nausea, vomiting and his family denies that he has been confused. In the ER he was diagnosed with acute sinusitis that failed outpatient antibiotic treatment causing generalized weakness with ambulatory dysfunction in the setting of chronic Parkinson's disease that have been well-controlled up to this time and he was then admitted to the general medical floor under observation status for ongoing care for stay that is expected to be less than 48 hours. [facility] Medical History Parkinson disease Home Medications amantadine HCl 100 mg capsule 100 mg PO .COMPLEX hill 12/04/23 [History Last Taken Unknown] carbidopa 25 mg-levodopa 100 mg tablet 1.5 tab PO TID 12/04/23 [History Last Taken Unknown] carbidopa ER 25 mg-levodopa 100 mg tablet,extended release 1 tab PO QHS [place] 12/04/23 [History Last Taken Unknown] hydrochlorothiazide 12.5 mg capsule 12.5 mg PO DAILY htn 12/04/23 [History Last Taken Unknown] Allergy/AdvReac Type Severity Reaction Status Date / Time No Known Allergies Allergy Verified 12/03/23 20:01 Social History Smoking Status: Never smoker ROS ROS Narrative Review of systems: General: Patient denies fevers or chills. HENT: Patient admits to sinus congestion and fullness that is causing him moderate discomfort. EYES: Denies changes in vision or discharge from eyes. Resp: Denies cough or shortness of breath. Cardiac: Denies chest pain or palpitations. GI: Denies abdominal pain, denies changes in bowel, denies nausea or vomiting. : Patient admits to chronic urinary frequency which is unchanged from previous. Extremity: Denies swelling Musculoskeletal: Feels somewhat generally weak and is unusually stiff in his left > right lower extremity. Neuro: Denies any numbness/tingling Heme: Denies any bleeding or bruising Skin: Denies rashes Psychiatric: No complaints voiced Endocrine: No polyuria, polydipsia or polyphagia. The rest of the 14 point ROS was negative except for positives in HPI. Vital Signs Vital Signs Vital Signs: 12/03/23 20:01 12/03/23 20:05 12/03/23 20:53 Temperature 97.8 F 97.8 F Temperature Source Temporal Temporal Pulse Rate 81 81 Respiratory Rate 16 16 Respiratory Effort Normal Non-Labored Respiratory Depth Normal Respiratory Pattern Normal Blood Pressure 129/80 H 129/80 H Blood Pressure Mean 96 96 Pulse Ox 97 97 Oxygen Delivery Method Room Air Room Air Room Air 12/03/23 22:02 12/04/23 00:00 Temperature 98 F Temperature Source Pulse Rate 71 68 Respiratory Rate 18 13 Respiratory Effort Respiratory Depth Respiratory Pattern Blood Pressure 166/93 H 157/98 H Blood Pressure Mean 117 117 Pulse Ox 98 97 Oxygen Delivery Method Room Air Weight Weight: 156 lb 4.924 oz Body Mass Index (BMI) 22.4 Physical Exam Const alert, oriented x3 and no apparent distress Constitutional Narrative: Patient appears frail but is very mentally sharp. General Appearance: cooperative HEENT normocephalic, head/scalp atraumatic, hearing grossly normal bilaterally and moist oral mucous membranes Eyes PERRL and EOMs intact bilaterally Neck no lymphadenopathy and supple Resp normal respiratory effort, no retractions, no use of accessory muscles and clearto auscultation bilaterally Cardio regular rate and regular rhythm GI normal to inspection, nondistended, normoactive bowel sounds, soft to palpation,non-tender and non-distended Extremity normal to inspection Extremity Narrative: Patient has mild edema of his ankles. Skin Skin Narrative: Patient has no evidence of rash at this time. Neuro oriented x3, CN's II-XII intact bilaterally and moves all extremities Neuro Narrative: Patient is stiff in his lower extremities but has symmetrical strength. Sensorium / Orientation: awake, alert, oriented to person, oriented to place andoriented to time Speech: speech normal Motor Exam: strength 5/5 throughout Psych affect normal Results Medical Records Data Attestation: I reviewed the patient's medical records Lab / Micro Data Attestation: I reviewed the patient's lab results. 12/03/23 22:00 12/03/23 22:00 Labs: Laboratory Results - last 24 hr 12/03/23 21:55: Urine Color Yellow, Urine Clarity Clear, Urine pH 6.0, Ur Specific [place] 1.025, Urine Protein Negative, Urine Glucose (UA) Normal, UrineKetones 5 H, Urine Occult Blood 25 H, Urine Nitrite Negative, Urine Bilirubin Negative, Urine Urobilinogen Normal, Ur Leukocyte Esterase 25 H, Urine RBC 0-5 SEEN, Urine WBC 0-5 SEEN, Ur Squamous Epith Cells 0 SEEN, Urine Bacteria 0 SEEN,Urine Mucus 0 SEEN 12/03/23 22:00: WBC 7.2, RBC 4.66, Hgb 15.0, Hct 43.3, MCV 92.9, MCH 32.2 H, MCHC 34.6, RDW Std Deviation 48.2 H, RDW Coeff of Ann 14.3, Plt Count 196, MPV 10.5, Immature Gran % (Auto) 0.600, Neut % (Auto) 76.8 H, Lymph % (Auto) 14.4 L,[place] % (Auto) 7.4, Eos % (Auto) 0.4, Baso % (Auto) 0.4, Absolute Neuts (auto) 5.5, Absolute Lymphs (auto) 1.03, Nucleated RBC % 0, Sodium 142, Potassium 3.8, Chloride 108 H, Carbon Dioxide 27.0, Anion Gap 7, BUN 21 H, Creatinine 0.98, Estim Creat Clear Calc 63.30, Est GFR (MDRD) Af Amer 96, Est GFR (MDRD) Non-Af 79, BUN/Creatinine Ratio 21.5 H, Glucose 108 H, Calcium 9.2 Micro: Microbiology 12/03/23 21:50 Mucosa - Nose SARS-CoV-2, Influenza & RSV (PCR) - Final Imaging Radiology Impression Brain CT 12/03/23 21:41 IMPRESSION: Chronic changes as described with no acute intracranial hemorrhage or space-occupying lesion. Electronically Signed: Lashawn Salazar MD at 22:34 EST Reading Location ID and State: [facility] / [place] , Service support , Assessment & Plan Assessment/Plan (1) Acute sinusitis: QUALIFIERS: Sinusitis location: unspecified location Recurrence: recurrent Qualified Code(s): J01.91 - Acute recurrent sinusitis, unspecified (2) Failure of outpatient treatment: (3) Parkinson disease: QUALIFIERS: Dyskinesia presence: with dyskinesia Fluctuating manifestations: with fluctuating manifestations Qualified Code(s): G20.B2 - Parkinson's disease with dyskinesia, with fluctuations (4) Unable to stand up: (5) Fall at home: QUALIFIERS: Encounter type: initial encounter Qualified Code(s): W19.XXXA - Unspecified fall, initial encounter; Y92.009 - Unspecified place in unspecified non-institutional (private) residence as the place of occurrence of the external cause PLAN: Plan 1. Acute sinusitis that failed outpatient treatment - Admit to general medical floor under observation status. Give IV Rocephin as a precursor to switching tooral Augmentin at time of discharge if dayshift hospitalist is agreeable. Give Tylenol as needed pain or fever. 2. Generalized weakness with ambulatory dysfunction in the setting of chronic Parkinson's disease acutely exacerbated by #1 causing fall at home - PT/OT and case management to consult and treat in the a.m. on rounds with help appreciatedin advance. Patient lives alone and would be interested in returning home with PT if he is deemed safe to do so. 3. Essential hypertension - Resume hydrochlorothiazide as previous plus give asneeded IV hydralazine for systolic blood pressure greater than 160 mmHg. 4. DVT prophylaxis - Lovenox 40 mg sq daily. Total time: Approximately 45 minutes. Charges/Coding Visit Charges OBSV E&M: 14474 Observ/hosp same date L1 12/04/23 8004 <Electronically signed by Marcelo Tan DO> Cosigner Signature (if applicable): CC: Dr. Sarika Montaño MD; Dr. Marcelo Tan DO~ Signed [facility] Work Phone: 1(778) 107-369002-14-2024 Discharge summary Author Alfredo Singh [facility] December 04, 2023 12:40am Note Date/Time December 04, 2023 12:29am [facility] Medical Records Department [address] [place] [address] [place] [address] Emergency Department Summary 12/04/23 MR#: [id number] Acct: [id number] Name: MAYNOR VIDES III Rep #:[id number] : 1945 78 From: Alfredo Singh MD PCP: Dr. Sarika Montaño MD Status:REG ER Location: ED HPI History of Present Illness Chief Complaint: Fall Informant: patient and family Narrative Narrative: Patient presents with an inability to ambulate or get up out of a couch. He is from patient and family member. No weakness Patient states that he does have Parkinson's but it has been pretty well- controlled with carbidopa levodopa and amantadine. He states on about he was shopping at [employer] with no problems. He does not use a cane or a walker. Saturday he noticed that he seemed a little bit weaker. It seemed a little bit more on the left leg than any other area but he does admit to generalized weakness. He states he got worse on Saturday and Saturday. Today he tried to get up off the couch and was too weak. He ended up rolling from the couch onto the floor but did not hurt himself. He was trying to push himself upwith his hands and legs and could not do it so he had to call a family member for help. Patient also states that he had a sinus infection about a month ago he had a little bit of nasal drainage that was purulent. He had a little pressure in hishead. He took antibiotics and got better. But he is starting to get a little bit of head pressure back. But he is not getting the drainage. He does not have fevers. He has no cough. He has no urinary symptoms but he does get up several times a night to urinate. But this is not new or worsening. He is not confused per the family. [facility] Medical History Parkinson disease Allergy/AdvReac Type Severity Reaction Status Date / Time No Known Allergies Allergy Verified 12/03/23 20:01 Social History Smoking Status: Never smoker ROS ROS ED Constitutional Constitutional ED: Denies chills, fever(s) or subjective Eyes Eyes: Denies change in vision ENT ENT ED: Denies ear pain, rhinorrhea or sore throat Cardiovascular Cardiovascular: Denies chest pain or palpitations Respiratory/Chest Respiratory/Chest: Denies cough or dyspnea Gastrointestinal Gastrointestinal: Denies diarrhea, nausea or vomiting Genitourinary Genitourinary ED: Reports urinary frequency and other Details: Urinary frequencyis chronic. Musculoskeletal Musculoskeletal: Denies myalgias Integumentary Denies rash Hematologic/Lymphatic Hematologic/Lymphatic: Denies easy bleeding or easy bruising EXAM Physical Exam Narrative Exam Narrative: General: Patient is awake alert he looks frail but he is alert and appropriate. HEENT: No nasal congestion. Oropharynx is well-hydrated. No significant nasal discharge. Neck is supple I do not see JVD. Heart is regular. Lungs are clear and saturations are normal at 97% on room air. Abdomen is soft and nontender. Extremities show no tenderness. There is some mild edema of his ankles. Evidently this is normal. Neurologic: He is awake alert appropriate. I was able to have him lift each a leg up individually for over 5 seconds and they were equal. He could pull up onhis toes and stepped on the gas with good strength. Good bilateral top installer strength. He could push and pull with his arms equally and well. I do not get any asymmetry of strength. Const Vital Signs: 12/03/23 20:01 12/03/23 20:05 12/03/23 20:53 Temperature 97.8 F 97.8 F Temperature Source Temporal Temporal Pulse Rate 81 81 Respiratory Rate 16 16 Respiratory Effort Normal Non-Labored Respiratory Depth Normal Respiratory Pattern Normal Blood Pressure 129/80 H 129/80 H Blood Pressure Mean 96 96 Pulse Ox 97 97 Oxygen Delivery Method Room Air Room Air Room Air 12/03/23 22:02 12/04/23 00:00 Temperature 98 F Temperature Source Pulse Rate 71 68 Respiratory Rate 18 13 Respiratory Effort Respiratory Depth Respiratory Pattern Blood Pressure 166/93 H 157/98 H Blood Pressure Mean 117 117 Pulse Ox 98 97 Oxygen Delivery Method Room Air MDM MDM MDM Narrative Medical decision making narrative: My independent interpretation of his CT shows some mild atrophy likely due to age but no acute process and final reading was similar. Patient's CBC looks normal. Patient's electrolytes show minimal elevation of chloride. Slightly high BUN tocreatinine ratio but he was given IV fluids here for mild dehydration. Glucose was unremarkably high at 108. Urine shows no sign of infection. Patient's viral studies were negative. We tried to walk the patient after some fluids. He is way too unstable. He cannot get up on the edge of the bed and stand well. He states he feels like his legs are locking on him. We did give him his carbidopa/levodopa. This patient is not safe to go home. He cannot ambulate when a few days ago he was walking in a grocery store without difficulty. Although stroke is possible or not yet seeing anything on CT. It is certainly possible that this is his Parkinson's and he may need adjustment of medicines. He will likely need physical therapy evaluation. I did discuss the case with hospitalist. Lab Data Attestation: I reviewed the patient's lab results. Labs: Laboratory Results - last 24 hr 12/03/23 12/03/23 21:55 22:00 WBC 7.2 RBC 4.66 Hgb 15.0 Hct 43.3 MCV 92.9 MCH 32.2 H MCHC 34.6 RDW Std Deviation 48.2 H RDW Coeff of Ann 14.3 Plt Count 196 MPV 10.5 Immature Gran % (Auto) 0.600 Neut % (Auto) 76.8 H Lymph % (Auto) 14.4 L [place] % (Auto) 7.4 Eos % (Auto) 0.4 Baso % (Auto) 0.4 Absolute Neuts (auto) 5.5 Absolute Lymphs (auto) 1.03 Nucleated RBC % 0 Sodium 142 Potassium 3.8 Chloride 108 H Carbon Dioxide 27.0 Anion Gap 7 BUN 21 H Creatinine 0.98 Estim Creat Clear Calc 63.30 Est GFR (MDRD) Af Amer 96 Est GFR (MDRD) Non-Af 79 BUN/Creatinine Ratio 21.5 H Glucose 108 H Calcium 9.2 Urine Color Yellow Urine Clarity Clear Urine pH 6.0 Ur Specific [place] 1.025 Urine Protein Negative Urine Glucose (UA) Normal Urine Ketones 5 H Urine Occult Blood 25 H Urine Nitrite Negative Urine Bilirubin Negative Urine Urobilinogen Normal Ur Leukocyte Esterase 25 H Urine RBC 0-5 SEEN Urine WBC 0-5 SEEN Ur Squamous Epith Cells 0 SEEN Urine Bacteria 0 SEEN Urine Mucus 0 SEEN Radiography Diagnostic Testing: Clinical Impression(s) from Imaging Studies Brain CT 12/03/23 21:41 IMPRESSION: Chronic changes as described with no acute intracranial hemorrhage or space-occupying lesion. Electronically Signed: Lashawn Salazar MD at 22:34 EST , Discharge Plan Triage Chief Complaint: Fall ED Provider: Alfredo Singh Dx/Rx/DC Orders Clinical Impression: Fall at home, Dehydration, mild, Unable to stand up, Parkinson disease Primary Care Provider: Sarika Montaño Referrals: Sarika Montaño MD [Primary Care Provider] - Disposition Disposition: [facility] What to do if you have Problems For any increased pain, shortness of breath, bleeding, nausea or vomiting, chestpain, or any unexpected problems, contact your Primary Care Provider. Call [facility] ([phone]) or report to the closest Emergency Room. Call 911 if necessary. 12/04/23 0040 <Electronically signed by Alfredo Singh MD> Cosigner Signature (if applicable): CC: Dr. Sarika Montaño MD ~ Signed [facility] Work Phone: [phone] 150-567801-15-2024 NoteHNO ID: [id number] Author: CLAUDE KYLE MD Service: ? Author Type: Physician Type: Progress Notes Filed: 11/04/2023 11:05 Note Text: [facility] - FOLLOW UP EVALUATION - VIRTUAL VISIT Sarika Montaño MD [address] [facility] [address] [facility] [id number] Dear Sarika Montaño MD: I had the pleasure of seeing Mr. Vides for follow-up today. As you know he is a 78 year old right-handed male with a history of Parkinson disease since 2014. He is seen alone. We had a visit using: copygram I have communicated my name and active licensure. The patient's identity and physical location were verified at the time of this visit. Either the patient or their legal mill representative has been informed of the risks [...] History He says that he is doing okay. Does not notice much wearing off; dyskinesias are not there all the time, more in the morning. Having some balance issues. Getting PT through [facility] [place]. No falls, but with occasional freezing. Now [...] Row Distance Health from 11/04/2023 in [facility] Appointment from 11/01/2023 in [facility] Global Physical [facility] T Score 47.7 47.7 [...] movements. . Assessment and Plan: Assessment Mr. Vides is a right-handed 78 year old male with Parkinson disease with onset and 2014 (more content not included)...[facility]12-21-2023 Miscellaneous Notes* Telephone Encounter - Leonora Betts - 10/10/2023 8:44 AM EST Request from patient requesting refill. Please E-Scribe to Tammy Mccain. Last OV: 06/03/23 with SS Future OV: 11/01/23 with [facility] Requested Prescriptions Pending Prescriptions Disp Refills carbidopa-levodopa (SINEMET 25-100) 25-100 mg per tablet 135 tablet 5 Sig: Take 1.5 tablet every 5 hours, 3 times daily. Leonora S documented in this encounterParkview [facility]12-20-2023 Miscellaneous Notes* Telephone Encounter - Sammie Pryor - 10/09/2023 10:03 AM EST patient requesting refill as follows: Last FUV May 2023 with Patience. [facility] Requested Prescriptions Pending Prescriptions Disp Refills amantadine HCl (SYMMETREL) 100 mg capsule 360 capsule 1 Sig: Take 2 tablets at 9am, then 1 tablet at 1pm and 5pm. Upon approval, script will be sent electronically to the patient's pharmacy. Sammie Pruitt, [employer] documented in this encounterParkview Health [facility]12-07-2023 Miscellaneous Notes* Telephone Encounter - Sammie Pryor - 09/26/2023 3:55 PM EST Pt requesting refill as follows: Last FUV May 2023 with Patience. Requested Prescriptions Pending Prescriptions Disp Refills carbidopa-levodopa CR (SINEMET CR) 25-100 mg per tablet 30 tablet 11 Sig: Take 1 tablet by mouth once daily. At bedtime. Upon approval, script will be sent electronically to the patient's pharmacy. Sammie Pruitt, [employer] documented in this [facility]09-15-2023 Miscellaneous Notes* Telephone Encounter - Jessica Lares - 07/05/2023 3:12 PM EDT Patient requests via MyChart refills as follows: When approved Rx escribed to Tammy Mccain 06/03/23 FUV w/Patience Otoole CNP Requested Prescriptions Pending Prescriptions Disp Refills carbidopa-levodopa CR (SINEMET CR) 25-100 mg per tablet 30 tablet 5 Sig: Take 1 tablet by mouth. Please review and advise. Jessica Anders documented in this encounterParkview Health [facility]08-14-2023 Instructions* Patient Instructions* Patience Otoole APRN.SUSAN - 06/03/2023 1:15 PM EDT Reduce [...] have any structural issues. documented in this encounterParkview Health [facility]pel[facility]08-14-2023 History of Present illness Narrative* Patience Otoole APRN.SUSAN - 06/03/2023 12:57 PM EDT [facility] - FOLLOW UP EVALUATION - VIRTUAL VISIT Sarika Montaño [address] [facility] [address] [facility] [address] Dear Sarika Montaño: I had the pleasure of seeing Mr. Vides for follow-up today. As you know he is a 77 year old right-handed male with a history of Parkinson disease since 2014. We had a visit using: [employer] Zoom [employer] I have communicated my name and active licensure. The patient's identity and physical location wereverified at the time of this visit. Either the patient or their legal mill representative has been informed of the risks and benefits of -- and alternatives to -- treatment through a remote evaluation andconsents to proceed with the evaluation remotely. Subjective [...] Row Distance Health from 06/03/2023 in [facility] Office Visit from 02/27/2023 in [facility] Global Physical Health T Score 50.8 50.8 Global Mental Health T Score 53.3 53.3 0-10 Standard Pain Scale 5 4 *PROMIS-10 scoring scale: mean = 50, over 50 is above average, under 50 is below average Objective He is alone. General: Awake, alert, interactive, no acute distress, good nutritional status, normal development,well-kept Assessment and Plan: Assessment Mr. Vides is a right-handed 77 year old male [...] does not worsen motor function. He does nothave significant wearing off, so this may be [...] OTC decongestants when it is happening to seeif this improves these symptoms. He feels when [...] to call with any questions. Sincerely, Patience Otoole APRN.SUSAN documented in this encounterParkview Health [facility]05-10-2023 Instructions* Patient Instructions* Molly Mathew APRN.CNP - 02/27/2023 11:43 AM EDT It was [...] or you can send a message through Qonf. You can also now schedule and select appointments through Qonf. Molly Mathew APRN.CNP documented in this encounterParkview Health [facility]05-10-2023 History of Present illness Narrative* Molly Mathew APRN.SURGERY MANAGER - 02/27/2023 11:00 AM EDT [facility] - FOLLOW UP EVALUATION Sarika Montaño MD [address] [facility] [address] Dear Sarika Montaño MD: I had the pleasure of seeing Mr. Vides for follow-up today. As you know he [...] Row Office Visit from 02/27/2023 in [facility] Office Visit from 08/29/2022 in [facility] Global Physical [facility] T Score 50.8 50.8 [...] Adult) Pulse 60 Ht 177.8 cm (5' 10) SpO2 98% BMI 21.19 kg/m Orthostatic Vitals: None for this encounter No LMP for male patient. Body mass index is 21.19 kg/m . General Physical Examination: He is accompanied by his child. General: Awake, alert, interactive, no acute distress, good nutritional status, normal development,well-kept General Neurological Examination: Neurological Exam Mental Status [...] during tapping, b) mild slowing, c) the amplitudedecrements midway in the 10-tap sequence. Finger Taps [...] to one side, but patient can correct postureto normal posture when asked to do so. [...] Filed Total Assessment and Plan: Assessment Mr. Vides is a right-handed 77 year old year [...] hesitate to call with any questions. Sincerely, Molly Mathew APRN.SUSAN documented in this encounterParkview Health [facility]04-14-2023 Miscellaneous Notes* Telephone Encounter - Jessica Rochaterson [facility] - 02/01/2023 11:35 AM EDT Patient requests via MyChart refills as follows: When approved Rx escribed to [facility]. 11/02/22 FUV w/[facility] Requested Prescriptions Pending Prescriptions Disp Refills carbidopa-levodopa (SINEMET 25-100) 25-100 mg per tablet 135 tablet 5 Sig: Take 1.5 tablet every 5 hours, 3 times daily. amantadine HCl (SYMMETREL) 100 mg capsule 360 capsule 1 Sig: Take 2 tablets at 9am, then 1 tablet at 1pm and 5pm. Please review and advise. [facility] documented in this encounterParkview Health [facility]04-04-2023 Miscellaneous Notes* Telephone Encounter - [facility] - 01/22/2023 4:55 PM EDT Patient requests via MyChart refills as follows: When approved Rx escribed to [facility]. 11/02/22 FUV w/[facility] Requested Prescriptions Pending Prescriptions Disp Refills carbidopa-levodopa CR (SINEMET CR) 25-100 mg per tablet 30 tablet 5 Sig: Take 1 tablet by mouth daily at bedtime. Please review and advise. [facility] documented in this encounterParkview Health [facility]01-18-2023 Miscellaneous Notes* [facility] - [facility] 2:40 PM EST Last FUV 11/02 with [facility]. Script pending for approval. documented in this encounterParkview Health [facility]pel[facility]01-13-2023 History of Present illness Narrative* Claude Kyle MD - 11/02/2022 11:05 AM EST [facility] - FOLLOW UP EVALUATION - VIRTUAL VISIT Sarika Montaño MD [address] [facility] [address] [facility] [id number] Dear Sarika Montaño MD: I had the pleasure of seeing Mr. Vides for follow-up today. As you know he is a 77 year old right-handed male with a history of Parkinson disease since 2015. He is seen alone. We had a visit using: copygram I received consent from the patient to perform the visit using this platform. Subjective During his previous visit the following plan was made: Previous plan-08/29/2022 Visit: PD and dyskinesia - Take Sinemet at 1.5 tablet in the morning, afternoon at 1 pm, and take 1 tabletat 5 pm (dose reduction). Add CR Sinemet [...] falls; somewhat constipation but relieved by high fiberdiet. Movement Disorders Medications Schedule - as of [...] Row Office Visit from 08/29/2022 in [facility] Appointment from 01/24/2022 in [facility] T Score 50.8 50.8 [...] hand movements. Assessment and Plan: Assessment Mr. Vides is a right-handed 77 year old male [...] addressed during this visit: Pd (parkinson's disease) ([facility]) (primary encounter diagnosis) Levodopa-induced dyskinesia Sialorrhea Bilateral [...] hesitate to call with any questions. Sincerely, Claude Kyle MD documented in this encounterParkview Health [facility]11-09-2022 Instructions* Patient Instructions* Suha Raza MD - 08/29/2022 1:52 PM EST It was a pleasure to see you today. We addressed the following diagnoses: Pd (parkinson's disease) ([facility]) (primary encounter diagnosis) Levodopa-induced dyskinesia Sialorrhea Insomnia due to medical condition Dystonia My recommendations are as follows: 08/29/2022 Visit: PD and dyskinesia - Take Sinemet at 1.5 tablet in the morning, and 1.5 tablet in the afternoon at 1pm, and take 1 tablet at 5 pm. [...] or you can send a message through Qonf. You can also now schedule and select appointments through Qonf. Suha Raza MD documented in this encounterParkview Health [facility]11-09-2022 History of Present illness Narrative* Claude Kyle MD - 08/29/2022 12:51 PM EST [facility] - FOLLOW UP EVALUATION Sarika Montaño MD [address] [facility] [address] I had the pleasure of seeing Mr. Vides for follow up today. He is a [...] the same distribution and his last dose was4 hours ago. It is hard to get started in the morning as his walking is not great and he has left foot issues with which he has pain with extension of the hallux. The symptoms improve as the day goeson. He feels that his best time in [...] Row Office Visit from 08/29/2022 in [facility] Appointment from 01/24/2022 in [facility] Global Physical [facility] T Score 50.8 50.8 [...] Cuff Size: Regular Adult) Pulse 65 Wt 67kg (147 lb 11.2 oz) SpO2 99% BMI [...] during the tapping movements or at least onelonger arrest (freeze) in ongoing movement, b) moderate [...] to one side, but patient can correct postureto normal posture when asked to do so. [...] Filed Total Assessment and Plan: Assessment Mr. Vides is a right-handed 76 year old year [...] addressed during this visit: Pd (parkinson's disease) ([facility]) (primary encounter diagnosis) Levodopa-induced dyskinesia Sialorrhea Insomnia due to medical condition Dystonia Plan 08/29/2022 Visit: PD and dyskinesia - Take Sinemet at 1.5 tablet in the morning, afternoon at 1 pm, and take 1 tabletat 5 pm (dose reduction). Add CR Sinemet [...] FRCPC Fellow, Movement Disorders [facility] Neurology attending addendum: I personally saw and examined the patient with the Fellow. The case and management was discussed indetail. I agree with the above note regarding the patient's: Pd (parkinson's disease) ([facility]) (primary encounter diagnosis) Levodopa-induced dyskinesia Sialorrhea Insomnia due to medical condition Dystonia Level of service : [id number] (40-54 min). Time spent 40 min on the day of service, which included preparing to see the patient, [id number] patient care, completing clinical documentation, obtaining and/or reviewing separately obtained history, performing a medically appropriate examination, counseling and educating the patient/family/caregiver, and ordering medications, tests, or procedures. MD Elizabeth Jacobson Endowed Chair in Movement Disorders Director, [facility], [facility] magazine supervisor (Neurology), [facility] documented in this encounterParkview Health [facility]07-05-2022 Miscellaneous Notes* Telephone Encounter - Leonora Alpesh - 04/24/2022 11:01 AM EDT Request from patient requesting refill. Please E-Scribe to Tammy Mccain. Last OV: 02/23/22 with [facility] Future OV: 08/29/22 with [facility] Pending Prescriptions Disp Refills CARBIDOPA 25 MG-LEVODOPA 100 MG TABLET 135 tablet 5 Sig: Take 1.5 tablet every 5 hours, 3 times daily. ISADORA: No Leonora S documented in this encounterParkview Health [facility]05-06-2022 History of Present illness Narrative* Claude Kyle MD - 02/23/2022 9:53 AM EDT [facility] - FOLLOW UP EVALUATION Sarika Montaño MD [address] [facility] [address] I had the pleasure of seeing Mr. Vides for follow up today. He is a 76 year old right-handed male with a history of Parkinson disease since 2016. He is seen alone. We had a visit using: copygram I received consent from the patient to [...] visit: PROMIS-10 Appointment from 01/24/2022 in [facility] Most recent reading at 01/22/2022 8:55 PM Office Visit from 01/24/2022 in [facility] Most recent reading at 01/22/2022 8:55 PM [...] hand movements Assessment and Plan: Assessment Mr. Vides is a right-handed 76 year old male with PD, doing generally well. No wearing off, with mild dyskinesias (non-bothersome), with some sialorrhea (not that bothersome for now). The following are the current problems noted and addressed during this visit: Pd (parkinson's disease) ([facility]) (primary encounter diagnosis) Levodopa-induced dyskinesia Sialorrhea [...] hesitate to call with any questions. Sincerely, Claude Kyle MD documented in this encounterParkview Health [facility]04-26-2022 History of Present illness Narrative* Iraida Peralta, Research Coordinator - 02/13/2022 9:47 AM EDTSummary: nQ Day 21 Phone call IRB# : [id number] Industrial Design Engineer: Dr. Claude Kyle MD Study Name: Pikhub () Application in Touchscreen Devices for the Remote [...] mail for participating in study activities. Iraida Peralta, Research Coordinator documented in this encounterParkview Health [facility]04-22-2022 History of Present illness Narrative* Jose Bassett MD - 02/09/2022 11:00 AM EDTSummary: [id number] nQ baseline IRB# : [id number] Industrial Design Engineer: Dr. Claude Kyle MD Study Name: neuroQERTY (nQ) Application in Touchscreen Devices for the Remote Management of Early Parkinson's Disease (PD) Study Visit Conducted by: Jose Bassett MD Date: February 12, 2022 Patient Patient seen for baseline visit on February 12, 2022 in office. Typing tasks and MDS-UPDRS completed. Advised patient that a aquatics coordinator (Rosanna or Andrew) will be in contact with them on Day 21 toassist in deleting the nQ application from their phone. Jose Bassett MD documented in this encounterParkview Health [facility]04-06-2022 History of Present illness Narrative* Iraida Peralta Research Coordinator - 01/24/2022 3:33 PM EDTSummary: [id number] nQ Prescreening IRB# : [id number] Industrial Design Engineer: Dr. Claude Kyle MD Study Name: neuroQERTY (nQ) Application [...] up in clinic. Iraida Peralta, Research Coordinator * Claude Kyle MD - 01/24/2022 1:43 PM EDT Images from the original note were not included. [facility] - FOLLOW UP EVALUATION Sarika Montaño MD [address] [facility] [address] I had the pleasure of seeing Mr. Vides for follow up today. He is a 76 year old right-handed male with a history of Parkinson disease since 2016. He is seen with a daughter. Subjective Previous Plan-10/25/2021 76 year old male with idiopathic Parkinson's disease, with non-bothersome dyskinesias. He says thathis eye closure is because of allergies. Insomnia is his biggest problem. The following are the current problems noted and addressed during this visit: Pd (parkinson's disease) ([facility]) (primary encounter diagnosis) Levodopa-induced dyskinesia Insomnia [...] was allergy at first, but when to anodizer and was negative. Left foot has some cramping and twitching, tough to get sock on some mornings. Had historically hadleft great toe extension dystonia that resolved after starting amantadine. Denies toe curling or foot inturning or other apparent dystonia at this time. With regard to medication (carbidopa-levodopa 25/100 and amantadine) feels that he does notice big changes, but feels that his fine motor skills are better and thinks sharper, but also thinks his walking may be a touch worse with more stutter stepping. Off melatonin, didn't feel that it was [...] PROMIS-10 Office Visit from 01/24/2022 in [facility] from 04/21/2021 in [facility] Global Physical Health T Score 50.8 54.1 [...] Adult) Pulse 86 Ht 177.8 cm (5' 10) SpO2 98% BMI 22.89 kg/m General Physical [...] Recent and remote memory are intact. Speech isnormal. Language is fluent with no aphasia. Cranial [...] Patellar 2+ 2+ Achilles 1+ 1+ Coordination Yxkqrh-xs-[id number], rapid alternating movements and auqp-de-sfqh normal bilaterally without dysmetria. Movement Disorders Cognitive [...] the mouth, such as less spontaneous smiling, butlips not parted. Rigidity Neck 3-Moderate. Rigidity detected [...] during the tapping movements or at least onelonger arrest (freeze) in ongoing movement, b) moderate [...] to one side, but patient can correct postureto normal posture when asked to do so. [...] Filed Total Assessment and Plan: Assessment Mr. Vides is a right-handed 76 year old male with Parkinson's disease. Having some likely levodopa-related left eye closure and head/neck movements, question if segmental dystonia or stereotopy. Will trial increase in amantadine to 400mg a day. The following are the current problems noted and addressed during this visit: Pd (parkinson's disease) ([facility]) (primary encounter diagnosis) Levodopa-induced dyskinesia Dystonia [...] Fellow. The case and management was discussed indetail. I agree with the above note regarding the patient's: Pd (parkinson's disease) ([facility]) (primary encounter diagnosis) Levodopa-induced dyskinesia Dystonia Level of service: Est level 4 (30-39 min). Time spent 35 min on the day of service, which included hjcg-eg-lmhj patient care, completing clinical documentation, obtaining and/or reviewing separately obtained history, performing a medically appropriate examination, counseling and educating the patient/family/caregiver and ordering medications, tests, or procedures. MD Elizabeth Jacobson Endowed Chair in Movement Disorders Director, [facility], [facility] magazine supervisor (Neurology), [facility] documented in this encounterParkview Health [facility]04-06-2022 Instructions* Patient Instructions* Willie Traecy MD - 01/24/2022 2:31 PM EDT It was a pleasure to see you today. We addressed the following diagnoses: Pd (parkinson's disease) (hcc) (primary encounter diagnosis) Levodopa-induced dyskinesia Dystonia My [...] or you can send a message through Qonf. You can also now schedule and select appointments through Qonf. Willie Tracey MD documented in this encounterPark[facility]pel[facility] HospitalDischarge summary Author Fritz Srivastava [facility] December 04, 2023 12:34pm Note Date/Time December 04, 2023 12:32pm [facility] System Medical Records Department [address] [place] [address] Discharge Summary 12/04/23 1231 MR#: [id number] Acct: [id number] Name: MAYNOR VIDES DANDRE Rep #:[id number] : 1945 78 From: Fritz Srivastava DO PCP: Dr. Sarika Montaño MD Status:ADM ARINA Location: [place] [address] Providers Date of Admission: 12/04/23 Primary Care Physician: Dr. Sarika Montaño MD Reason For Visit: INABILITY TO STAND, PARKINSONS Diagnosis Discharge Diagnosis (1) Parkinson disease: Status: Acute Code(s): G20.A1 - Parkinson's disease without dyskinesia, without mention of fluctuations Qualifiers: Dyskinesia presence: with dyskinesia Fluctuating manifestations: with fluctuating manifestations Qualified Code(s): G20.B2 - Parkinson's disease withdyskinesia, with fluctuations Plan Debility * complicated by known Parkinson's disease, may be exacerbated. * PT OT * Patient decided to follow-up with outpatient therapy. Chronic sinusitis * I would not qualify this as a treatment failure as he was treated several weeks ago. Also, I would not qualify this as acute, but rather chronic. * DC CTX, start Flonase. Chronic conditions: * Essential hypertension - Resume hydrochlorothiazide as previous plus give as needed IV hydralazine for systolic blood pressure greater than 160 mmHg. * PD: continue carbidopa/levodopa DVT prophylaxis - Lovenox 40 mg sq daily. Medications at Discharge Home Medications amantadine HCl 100 mg capsule 100 mg PO .COMPLEX [place] 12/04/23 carbidopa 25 mg-levodopa 100 mg tablet 1.5 tab PO TID 12/04/23 carbidopa ER 25 mg-levodopa 100 mg tablet,extended release 1 tab PO QHS [place] 12/04/23 fluticasone propionate 50 mcg/actuation nasal spray,suspension 1 spray NASAL BID#16 grams 12/04/23 Hospital Course Summary of Care Provided Minutes Spent on Discharge: 32 Weight / BMI Weight Weight: 68.49 kg Body Mass Index (BMI) 21.6 ABG / Lab / Microbiology Data 12/04/23 07:24 12/04/23 07:24 Laboratory: Laboratory Results - last 24 hr 12/03/23 21:55: Urine Color Yellow, Urine Clarity Clear, Urine pH 6.0, Ur Specific [place] 1.025, Urine Protein Negative, Urine Glucose (UA) Normal, UrineKetones 5 H, Urine Occult Blood 25 H, Urine Nitrite Negative, Urine Bilirubin Negative, Urine Urobilinogen Normal, Ur Leukocyte Esterase 25 H, Urine RBC 0-5 SEEN, Urine WBC 0-5 SEEN, Ur Squamous Epith Cells 0 SEEN, Urine Bacteria 0 SEEN,Urine Mucus 0 SEEN 12/03/23 22:00: WBC 7.2, RBC 4.66, Hgb 15.0, Hct 43.3, MCV 92.9, MCH 32.2 H, MCHC 34.6, RDW Std Deviation 48.2 H, RDW Coeff of Ann 14.3, Plt Count 196, MPV 10.5, Immature Gran % (Auto) 0.600, Neut % (Auto) 76.8 H, Lymph % (Auto) 14.4 L,[place] % (Auto) 7.4, Eos % (Auto) 0.4, Baso % (Auto) 0.4, Absolute Neuts (auto) 5.5, Absolute Lymphs (auto) 1.03, Nucleated RBC % 0, Sodium 142, Potassium 3.8, Chloride 108 H, Carbon Dioxide 27.0, Anion Gap 7, BUN 21 H, Creatinine 0.98, Estim Creat Clear Calc 63.30, Est GFR (MDRD) Af Amer 96, Est GFR (MDRD) Non-Af 79, BUN/Creatinine Ratio 21.5 H, Glucose 108 H, Calcium 9.2 12/04/23 07:24: WBC 8.1, RBC 4.51 L, Hgb 14.2, Hct 42.1, MCV 93.3, MCH 31.5, MCHC 33.7, RDW Std Deviation 48.2 H, RDW Coeff of Ann 14.2, Plt Count 184, MPV 10.9, Immature Gran % (Auto) 0.700, Neut % (Auto) 81.9 H, Lymph % (Auto) 10.6 L,[place] % (Auto) 6.0, Eos % (Auto) 0.4, Baso % (Auto) 0.4, Absolute Neuts (auto) 6.7, Absolute Lymphs (auto) 0.86, Nucleated RBC % 0, Sodium 140, Potassium 3.6, Chloride 107, Carbon Dioxide 24.0, Anion Gap 9, BUN 16, Creatinine 0.83, Estim Creat Clear Calc 72.20, Est GFR (MDRD) Af Amer 116, Est GFR (MDRD) Non-Af 95, BUN/Creatinine Ratio 19.3, Glucose 103, Calcium 8.2 L, Total Bilirubin 2.10 H, AST 27, ALT < 6 L, Alkaline Phosphatase 59, Total Protein 6.3 L, Albumin 3.3, Globulin 3.0, Albumin/Globulin Ratio 1.1, TSH 1.16 Microbiology: Microbiology 12/03/23 21:50 Mucosa - Nose SARS-CoV-2, Influenza & RSV (PCR) - Final Radiography Diagnostic Testing: Radiology Impression Brain CT 12/03/23 21:41 IMPRESSION: Chronic changes as described with no acute intracranial hemorrhage or space-occupying lesion. Electronically Signed: Lashawn Salazar MD at 22:34 EST , D/C Instructions Discharge Diet: No restrictions Meaningful Use Info Meaningful Use Diagnoses (Choose all that apply): None applicable Discharge Plan Admission Admit Date/Time: 12/04/23 00:50 Primary Reason for Your Visit: Debility Attending Provider: Fritz Srivastava Primary Care Provider: Sarika Montaño Consulting Providers: Marcelo Tna Instructions Additional Instructions / Restrictions: Unfortunately are weak due to your Parkinson's. No obvious reversible cause wasidentified. Did have some sinusitis noted in your right sinus but I do not feelthat this was the cause. I do recommend taking Flonase to help with that. Please follow-up with outpatient physical therapy. Discharge Orders/Prescriptions Prescriptions: New fluticasone propionate 50 mcg/actuation [place],Suspension 1 spray NASAL BID Qty: 16 0RF Continued carbidopa-levodopa 25-100 mg tablet 1.5 tab PO TID Patient Comments: take 1 AND 1/2 tablet by mouth three times a day carbidopa-levodopa 25-100 mg tablet extended release 1 tab PO QHS amantadine HCl 100 mg capsule 100 mg PO .COMPLEX Patient Comments: take 2 tablets by mouth AT 9AM then 1 tablet by mouth AT 1PM and AT 5PM Rx Instructions: take 2 tablets by mouth AT 9AM then 1 tablet by mouth AT 1PM and AT 5PM Discontinued hydrochlorothiazide 12.5 mg capsule 12.5 mg PO DAILY Patient Comments: take 1 capsule by mouth once daily Referrals / Follow Up: Sarika Montaño MD [Primary Care Provider] - Within 2 Weeks Disposition Disposition (needs filled in before D/C Order can be placed): Home, Self Care Charges/Coding Visit Charges Inpatient E&M: 50050 Disch Hosp >30min 12/04/23 1234 <Electronically signed by Fritz Srivastava DO> Cosigner Signature (if applicable): CC: Dr. Sarika Montaño MD; Dr. Fritz Srivastava DO~ Signed [facility] Work Phone: Evaluation note* Diagnosis PD (Parkinson's disease) (HCC)- Primary Paralysis agitans Levodopa-induced dyskinesia Subacute dyskinesia due to drugs Dystonia Abnormal involuntary movements documented in this encounter [facility] note* Diagnosis Examination of participant or control in clinical research- Primary Examination of participant in clinical trial documented in this encounter [facility] noteNo assessment information availableWBarberton Citizens Hospital Work Phone: Evaluation note* Diagnosis PD (Parkinson's disease) (HCC)- Primary Paralysis agitans Levodopa-induced dyskinesia Subacute dyskinesia due to drugs Sialorrhea Disturbance of salivary secretion documented in this encounter [facility] note* Diagnosis PD (Parkinson's disease) (HCC)- Primary Paralysis agitans Levodopa-induced dyskinesia Subacute dyskinesia due to drugs Sialorrhea Disturbance of salivary secretion 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 due to medical condition classified elsewhere Dystonia Abnormal involuntary movements documented in this encounter [facility] note* Diagnosis PD (Parkinson's disease) (HCC)- Primary Paralysis agitans Levodopa-induced dyskinesia Subacute dyskinesia due to drugs Sialorrhea Disturbance of salivary secretion Bilateral leg edema Edema documented in this encounter [facility] note* Diagnosis Parkinson's disease (HCC)- Primary Paralysis agitans Motor fluctuations 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 in Parkinson's disease (HCC) Dyskinesia Lack of coordination documented in this encounter [facility] note* Diagnosis Parkinson's disease (HCC)- Primary Paralysis agitans documented in this encounter [facility] note* Diagnosis Onset Date Resolution Status Dehydration, mild acute Fall at home acute Parkinson disease acute Unable to stand up acute [facility] Work Phone: Evaluation note* Diagnosis Onset Date Resolution Status Acute sinusitis acute Dehydration, mild acute Failure of outpatient treatment acute Fall at home acute Parkinson disease acute Unable to stand up acute [facility] Work Phone: Evaluation note* Diagnosis Onset Date Resolution Status Dehydration, mild resolved Fall at home resolved Unable to stand up resolved Bowel obstruction acute Nausea & vomiting acute Sigmoid volvulus acute [facility] Work Phone: Evaluation note* Diagnosis Onset Date Resolution Status Dehydration, mild resolved Fall at home resolved Unable to stand up resolved Bowel obstruction acute Edema acute Fever acute Hematuria acute Leukocytosis acute Nausea & vomiting acute Sigmoid volvulus acute [facility] Work Phone: Evaluation note* Diagnosis Onset Date Resolution Status Dehydration, mild resolved Fall at home resolved Unable to stand up resolved Hematuria acute Bowel obstruction resolved Edema resolved Fever resolved Leukocytosis resolved Nausea & vomiting resolved Sigmoid volvulus resolved Acute kidney injury acute Debility acute Foreign body reaction acute Hematuria acute Parkinson disease acute Postoperative seroma acute Urinary retention acute Bowel obstruction resolved Sigmoid volvulus resolved [facility] Work Phone: Evaluation note* Diagnosis Parkinson's disease with dyskinesia, unspecified whether manifestations fluctuate (HCC)- Primary Levodopa-induced dyskinesia Subacute dyskinesia due to drugs [facility] encounter [facility]* Diagnosis Abscess- Primary Cellulitis and abscess of unspecified site Abscess Cellulitis and abscess of unspecified site Rectal abscess Abscess of anal and rectal regions [facility] Additional Instructions Unfortunately are weak due to your Parkinson's. No obvious reversible cause was identified. Did have some sinusitis noted in your right sinus but I do not feel that this was the cause. I do recommend taking Flonase to help with that. Please follow-up with outpatient physical therapy.[facility] Work Phone: Progress note Author Pito Nickerson [facility] December 24, 2023 2:34pm Note Date/Time December 24, 2023 2:[address] [facility] System Medical Records Department [address] [place] [address] Progress Note - Hospitalist 12/24/23 1431 MR#: [id number] Acct: [id number] Name: MAYNOR VIDES DANDRE Rep #:[id number] : 1945 78 From: Pito العراقي PCP: Dr. Sarika Montaño MD Status:ADM IN [facility] Reason for Visit Reason for Visit: Diagnoses Elevated white blood cell count, unspecified (12/13/23) Volvulus (12/13/23) Nausea with vomiting, unspecified (12/13/23) Hematuria, unspecified (12/13/23) Fever, unspecified (12/13/23) Edema, unspecified (12/13/23) Objective Data Objective Data Vital Signs: Vital Signs Temp Pulse Resp BP Pulse Ox O2 Del Method O2 Flow Rate 98.6 F 69 16 115/65 97 Room Air 2 12/24/23 11:19 12/24/23 11:19 12/24/23 11:19 12/24/23 11:19 12/24/23 11:19 12/24/23 11:19 12/16/23 05:00 FiO2 95 12/16/23 11:30 Oxygen Flow Rate (L/min) 2 Oxygen Delivery Method Room Air Weight: 172 lb 6.424 oz Body Mass Index (BMI) 24.7 Intake & Output: Intake and Output for Last 24 Hours 12/22/23 12/23/23 12/24/23 23:59 23:59 23:59 Intake Total 120 / 120 450 / 450 Output Total 1250 / 1250 2250 / 2250 1400 / 1400 Balance -1130 / -1130 -2250 / -2250 -950 / -950 Lab / Micro Data 12/23/23 06:01 12/23/23 06:01 Labs: Laboratory Results - last 24 hr 12/24/23 06:41: Lactate Dehydrogenase 188 Micro: Microbiology 12/14/23 11:50 Blood Culture (Wb) - Right Forearm Blood Culture - Final No growth in 5 days. 12/14/23 11:30 Blood Culture (Wb) - Anticubital Right Blood Culture - Final No growth in 5 days. 12/14/23 13:52 Urine Catheter - Catheter Urine Culture - Final Culture exhibits no growth. Physical Exam Narrative Seen and examined Afebrile. Patient making good amount of urine. Colostomy functioning with liquid and semisolid feces. Breathing got improved. Physical exam: General: Alert, Oriented x3, Cooperative but fatigued and weak HEENT: Atraumatic, PERRLA, EOMI, Normocephalic Oral: Oral mucosa moist. Neck: Supple, No JVD, Negative Carotid Bruits Chest wall/Lungs: Air entry diminished in bilateral lung bases. No crepitation/rhonchi. No hypoxia Cardiovascular: Sinus rhythm, normal S1, Normal S2, No M/G/R. Abdomen:Soft, Colostomy functioning with greenish semisolid feces. No tenderness or guarding. : Slight yellowish urine. Ayala catheter. No dysuria. No renal angle tenderness. No suprapubic tenderness. Extremities: Bilateral lower and upper extremity edema, Capillary Refill Less than 3 Seconds Skin: No rashes, No breakdown Musculoskeletal: No Tenderness to Palpation of Joints or Extremities. Moderate muscle rigidity at knee and hip joints. History of Parkinson disease Neurological: Cranial nerves II-XII grossly intact, DTR 2+/4. No acute focal neurological deficit. Psych/Mental Status: Flat affect. Assessment & Plan Assessment/Plan (1) Leukocytosis: (2) Nausea & vomiting: (3) Bowel obstruction: QUALIFIERS: Intestinal obstruction type: volvulus Qualified Code(s): K56.2 - Volvulus (4) Sigmoid volvulus: (5) Edema: PLAN: Plan The patient is a 78 y/o M was admitted with sudden onset of Was admitted with sudden onset abdominal pain periumbilical and hypogastric in location, nausea vomiting, dark in color started 10 PM day before admission. No fever. Patient denies any prior history of bowel obstruction or abdominal pain like this. #1. Sigmoid volvulus, complicated with total colon distention, ileus and lacticacidosis with suspected colonic infection/colitis: Patient admitted under surgical service to the ICU after colonoscopy. Abdomen pelvis/CT was done priorto that. Shows mild distention of colon down to the region of sigmoid colon, upto 10 cm. Patient reported some passage of flatus. Has a rectal tube and NG tube. IV fluid 500 mL Ringer lactate ordered as patient did not had significanturine output. Heart rate and blood pressure are controlled. No fever. Discussed with the surgeon and plan to maintain on his current conservative measures to avoid total colectomy with high risk of surgery. Patient on IV PPI. Patient on IV Zosyn. Mild improvement in leukocytosis. Platelet count 214,000. Patient had colonoscopy on 12/13/2023. Sigmoid volvulus was found though colon prep was poor. Diverticulosis in RS colon and sigmoid colon. Partial decompression of volvulus achieved. No repeat colonoscopy recommended. 3/4: Colostomy is working good. Patient has good bowel sounds. 35: Patient is ready for discharge to SNF, TCU. 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 Massively dilated sigmoid colon transitioning to decompressed/deeply adhered distal sigmoid colon within the pelvis #2. SARITHA on Chronic Kidney Disease Stage II : Most likely prerenal due to sigmoid volvulus/ileus and third space: Ayala catheterization. Strict intake and output. Admission BUN/creatinine 29/1.33, today BUN/creatinine 30/1.11 BUN/creatinine ratio is 27. UA shows positive nitrite, ketones 5, bilirubin 1 LE 25 WBC 0-5 cells, bacteria 0. Patient on IV antibiotics. Urine culture shows no growth. 12/22: SARITHA is resolved on 12/17. Electrolytes in acceptable limit. Serum sodium 135. 3.. Recurrent urine retention patient had urine retention, Ayala removed on and was replaced overnight due to urinary retention greater than 250 mL on bladder scan. It was removed again on 12/20/2023 after Flomax initiated and then recurrent urinary retention Ayala was inserted. Patient developed lower abdominal pain and hematuria. Urologist consulted and placed Ayala catheter. Since patient has a false passage. Discharged on Ayala catheter with outpatienturologist follow-up. 4.Acute anemia on chronic anemia: Hemoglobin dropped to 8.3 from baseline 10.1 g. Platelet count 287,000. 5 5. Mild hyperbilirubinemia with normal transaminases, hyperbilirubinemia: Probably due to acute event of sigmoid volvulus ileus and possible secondary colon infection. Admission glucose 179. A1c 5.5 probably stress response hyperglycemia. Diabetes mellitus or prediabetes ruled out. 12/16: Last liver chemistry shows total bili 1.8. Direct 0.53. Will repeat tomorrow. 6. Parkinson's disease: hold oral medications in view of ileus with impaired bowel absorption Patient has moderate to severe oropharyngeal dysphagia probably due to Parkinsondisease. Patient on diet bite-size with thin liquid with compensation strategies. Being followed by speech therapist. 7. Patient had acute severe malnutrition with loss of subcutaneous fat, decreased muscle strength and bulk due to bowel obstruction which required complicated laparotomy surgery as described above. On Ensure. DVT Prophylaxis: Recommend at least SCDs, chemoprophylaxis per Surgery discretion. CODE status: Patient BRIA is his daughter who is present and living will is currently in place. Discussed CODE status at length including difference between FULL code, DNR-CCA and DNR-CC status. Following discussions about the differences in these status, requested Full Code status. Advanced Care Charges/Coding Visit Charges Inpatient E&M: 15013 Subs Hosp L2 12/24/23 9231 <Electronically signed by Pito Nickerson MD> Cosigner Signature (if applicable): CC: ~ Signed [facility] Work Phone: Reason for referral (narrative)* Unlisted Procedure Code (Routine) - New Request Specialty Diagnoses / Procedures Referred By Contac t Referred To Contact Procedures NO MECHANICAL DVT PROPHYLAXIS Meghna Allen [employer] [address] [place] [phone] Phone: tel: fax: Referral ID Status Reason Start Date Expiration Date V isits Requested Visits Authorized [id number] New Request 11/30/2024 12/25/2025 1 1 * Unlisted Procedure Code (Routine) - New Request Specialty Diagnoses / Procedures Referred By Contac t Referred To Contact Procedures LOW RISK - NO PHARMACOLOGICAL DVT PROPHYLAXIS Meghna Allen [employer] [address] [place] [phone] Phone: tel: fax: Referral ID Status Reason Start Date Expiration Date V isits Requested Visits Authorized [id number] New Request 11/30/2024 12/25/2025 1 1 * Unlisted Procedure Code (Routine) - New Request Specialty Diagnoses / Procedures Referred By Contac t Referred To Contact Procedures DVT/VTE RISK ASSESSMENT Meghna Allen [employer] [address] [place] [phone] Phone: tel: fax: Referral ID Status Reason Start Date Expiration Date V isits Requested Visits Authorized [id number] New Request 11/30/2024 12/25/2025 1 1 [facility]No reason for referral information availableWBarberton Citizens Hospital Work Phone: [facility] Narrative* Auth/Cert Specialty Diagnoses / Procedures Referred By Contac t Referred To Contact Diagnoses Abscess Post Operative Complication Meghna Allen, LEATHA [address] [place] [address] [place] [address] Phone: tel: fax: [facility] [address] [place] [address] Referral ID Status Reason Start Date Expiration Date Visits Re quested Visits Authorized [id number] 1 1 [facility] Reason for Referral Specialty Diagnoses / Procedures Referred By Contac t Referred To Contact Diagnoses PD (Parkinson's disease) (HCC) Procedures PROVIDER ORDERED FOLLOW UP OFFICE/OUTPATIENT NEW HIGH MDM 60-74 MINUTES Claude Kyle MD [address] [place] [address] Referral ID Status Reason Start Date Expiration Date Visits Requested Visits Authorized [id number] Authorized PCP Requested Referral 08/26/2022 02/23/2023 1 1 Specialty Diagnoses / Procedures Referred By Contac t Referred To Contact [facility] Diagnoses PD (Parkinson's disease) (HCC) Procedures CONSULT TO PHYSICAL THERAPY PHYSICAL THERAPY EVALUATION HIGH COMPLEX 45 MINS Claude Kyle MD [address] [place] [address] [facility] [address] [place] [address] Referral ID Status Reason Start Date Expiration Date Visits Requested Visits Authorized [id number] Pending Review PCP Requested Referral Auto-Generate d Referral 08/29/2022 08/29/2023 99 99 Referral ID Status Reason Start Date Expiration Date Visits Requested Visits Authorized [id number] Authorized PCP Requested Referral 01/31/2023 11/02/2023 1 1 Specialty Diagnoses / Procedures Referred By Contac t Referred To Contact Diagnoses Parkinson's disease (HCC) Procedures PROVIDER ORDERED FOLLOW UP OFFICE/OUTPATIENT NEW HIGH MDM 60-74 MINUTES Molly Mathew APRN.CNP [address] [place] [address] Referral ID Status Reason Start Date Expiration Date Visits Requested Visits Authorized [id number] Authorized PCP Requested Referral 05/30/2023 02/27/2024 1 1 Specialty Diagnoses / Procedures Referred By Enriqueta whiting Referred To Contact Diagnoses Parkinson's disease with dyskinesia, unspecified whether manifestations fluctuate (HCC) Procedures PROVIDER ORDERED FOLLOW UP OFFICE/OUTPATIENT [facility] 60 MINUTES Claude Kyle MD [address] [place] [address] Referral ID Status Reason Start Date Expiration Date Visits Requested Visits Authorized [id number] Authorized PCP Requested Referral 02/18/2025 08/21/2025 1 1 Chief Complaint and Reason for Visit Chief Complaint PRE-OP LABS Chief Complaint PARKINSONS/PT HAS RX Chief Complaint INABILITY TO STAND, PARKINSONS Reason for Visit Dehydration, mild Fall at home Parkinson disease Unable to stand up Chief Complaint INABILITY TO STAND, PARKINSONS Reason for Visit Acute sinusitis Dehydration, mild Failure of outpatient treatment Fall at home Parkinson disease Unable to stand up Chief Complaint INABILITY TO STAND, PARKINSONS BOWEL OBSTRUCTION Reason for Visit Dehydration, mild Fall at home Unable to stand up Bowel obstruction Nausea & vomiting Sigmoid volvulus Chief Complaint INABILITY TO STAND, PARKINSONS SIGMOID VOLVULUS SIGMOID VOLVULUS SIGMOID VOLVULUS SIGMOID VOLVULUS SIGMOID VOLVULUS SIGMOID VOLVULUS SIGMOID VOLVULUS SIGMOID VOLVULUS SIGMOID VOLVULUS SIGMOID VOLVULUS SIGMOID VOLVULUS SIGMOID VOLVULUS SIGMOID VOLVULUS SIGMOID VOLVULUS SIGMOID VOLVULUS SIGMOID VOLVULUS SIGMOID VOLVULUS SIGMOID VOLVULUS SIGMOID VOLVULUS SIGMOID VOLVULUS SIGMOID VOLVULUS SIGMOID VOLVULUS SIGMOID VOLVULUS SIGMOID VOLVULUS SIGMOID VOLVULUS Reason for Visit Dehydration, mild Fall at home Unable to stand up Bowel obstruction Edema Fever Hematuria Leukocytosis Nausea & vomiting Sigmoid volvulus Chief Complaint INABILITY TO STAND, PARKINSONS SIGMOID VOLVULUS SIGMOID VOLVULUS SIGMOID VOLVULUS SIGMOID VOLVULUS SIGMOID VOLVULUS SIGMOID VOLVULUS SIGMOID VOLVULUS SIGMOID VOLVULUS SIGMOID VOLVULUS SIGMOID VOLVULUS SIGMOID VOLVULUS SIGMOID VOLVULUS SIGMOID VOLVULUS SIGMOID VOLVULUS SIGMOID VOLVULUS SIGMOID VOLVULUS SIGMOID VOLVULUS SIGMOID VOLVULUS SIGMOID VOLVULUS SIGMOID VOLVULUS SIGMOID VOLVULUS SIGMOID VOLVULUS SIGMOID VOLVULUS SIGMOID VOLVULUS SIGMOID VOLVULUS SIGMOID VOLVULUS SIGMOID VOLVULUS SIGMOID VOLVULUS SIGMOID VOLVULUS SIGMOID VOLVULUS SIGMOID VOLVULUS Reason for Visit Dehydration, mild Fall at home Unable to stand up Hematuria Bowel obstruction Edema Fever Leukocytosis Nausea & vomiting Sigmoid volvulus Acute kidney injury Debility Foreign body reaction Hematuria Parkinson disease Postoperative seroma Urinary retention Bowel obstruction Sigmoid volvulus Chief Complaint Admit Date ABD PAIN November 29, 2024 2 :30pm ABD PAIN November 29, 2024 6 :59pm EORDERS January 25, 2025 12:4 4pm Advance Directives Advance Directive Response Recorded Date/ Time Living Will No December 03 024 8:54pm Power of Cushion Assembler No December 03, 2023 8:54pm Advance Directive Response Recorded Date/ Time Name of Medical Power of Cushion Assembler trang martin December 04, 2023 2:30am Living Will Yes December 04 024 2:30am Power of Cushion Assembler Yes December 04, 2023 2:30am Advance Directive Response Recorded Date/ Time Name of Medical Power of Cushion Assembler trang martin December 04, 2023 2:30am Name of Medical Power of Cushion Assembler Jeane Martin December 13, 2023 1:27pm Living Will Yes December 13 1:27pm Power of Cushion Assembler Yes December 13, 2023 1:27pm Advance Directive Response Recorded Date/ Time Name of Medical Power of Cushion Assembler trang martin December 04, 2023 2:30am Name of Medical Power of Cushion Assembler Jeane Martin December 13, 2023 8:23pm Living Will Yes December 13 8:23pm Power of Cushion Assembler Yes December 13, 2023 8:23pm Advance Directive Response Recorded Date/ Time Name of Medical Power of Cushion Assembler trang martin December 04, 2023 3:30am Name of Medical Power of Cushion Assembler Jeane Martin December 13, 2023 9:23pm Name of Medical Power of Cushion Assembler Susy Gillespie(1) and Carmella Martin(2) December 26, 2023 12:55pm Living Will Yes December 26, 2023 12:55pm Power of Cushion Assembler Yes December 25 12:55pm Date Activated Date Inactivated Comments 11/30/2024 4:09 AM Family History Relationship Condition Age at Onset Recorded Date/T arvin mother Cardiac disease Unknown father Cardiac disease Unknown Summary Purpose Additional Source Comments Source Comments (unrecognize d section and content) In the event this informatio n is protected by the Federal Confidentiality of Alcohol and Drug Abuse Patient Records regulations: The Federal rules restrict any use of the information to criminally investigate or prosecute any alcohol or drug abuse patient.[facility] the event this information is protected by the Federal Confidentiality of Alcohol and Drug Abuse Patient Records regulations: The Federal rules restrict any use of the information to criminally investigate or prosecute any alcohol or drug abuse patient.[facility] the event this information is protected by the Federal Confidentiality of Alcohol and Drug Abuse Patient Records regulations: The Federal rules restrict any use of the information to criminally investigate or prosecute any alcohol or drug abuse patient.[facility] the event this information is protected by the Federal Confidentiality of Alcohol and Drug Abuse Patient Records regulations: The Federal rules restrict any use of the information to criminally investigate or prosecute any alcohol or drug abuse patient.[facility] the event this information is protected by the Federal Confidentiality of Alcohol and Drug Abuse Patient Records regulations: The Federal rules restrict any use of the information to criminally investigate or prosecute any alcohol or drug abuse patient.[facility]In the event this information is protected by the Federal Confidentiality of Alcohol and Drug Abuse Patient Records regulations: The Federal rules restrict any use of the information to criminally investigate or prosecute any alcohol or drug abuse patient.[facility]In the event this information is protected by the Federal Confidentiality of Alcohol and Drug Abuse Patient Records regulations: The Federal rules restrict any use of the information to criminally investigate or prosecute any alcohol or drug abuse patient.[facility]In the event this information is protected by the Federal Confidentiality of Alcohol and Drug Abuse Patient Records regulations: The Federal rules restrict any use of the information to criminally investigate or prosecute any alcohol or drug abuse patient.[facility] the event this information is protected by the Federal Confidentiality of Alcohol and Drug Abuse Patient Records regulations: The Federal rules restrict any use of the information to criminally investigate or prosecute any alcohol or drug abuse patient.[facility] the event this information is protected by the Federal Confidentiality of Alcohol and Drug Abuse Patient Records regulations: The Federal rules restrict any use of the information to criminally investigate or prosecute any alcohol or drug abuse patient.[facility]In the event this information is protected by the Federal Confidentiality of Alcohol and Drug Abuse Patient Records regulations: The Federal rules restrict any use of the information to criminally investigate or prosecute any alcohol or drug abuse patient.[facility]In the event this information is protected by the Federal Confidentiality of Alcohol and Drug Abuse Patient Records regulations: The Federal rules restrict any use of the information to criminally investigate or prosecute any alcohol or drug abuse patient.[facility]In the event this information is protected by the Federal Confidentiality of Alcohol and Drug Abuse Patient Records regulations: The Federal rules restrict any use of the information to criminally investigate or prosecute any alcohol or drug abuse patient.[facility]In the event this information is protected by the Federal Confidentiality of Alcohol and Drug Abuse Patient Records regulations: The Federal rules restrict any use of the information to criminally investigate or prosecute any alcohol or drug abuse patient.[facility] HospitalIn the event this information is protected by the Federal Confidentiality of Alcohol and Drug Abuse Patient Records regulations: The Federal rules restrict any use of the information to criminally investigate or prosecute any alcohol or drug abuse patient.[facility] HospitalIn the event this information is protected by the Federal Confidentiality of Alcohol and Drug Abuse Patient Records regulations: The Federal rules restrict any use of the information to criminally investigate or prosecute any alcohol or drug abuse patient.[facility] HospitalIn the event this information is protected by the Federal Confidentiality of Alcohol and Drug Abuse Patient Records regulations: The Federal rules restrict any use of the information to criminally investigate or prosecute any alcohol or drug abuse patient.[facility] HospitalIn the event this information is protected by the Federal Confidentiality of Alcohol and Drug Abuse Patient Records regulations: The Federal rules restrict any use of the information to criminally investigate or prosecute any alcohol or drug abuse patient.[facility] HospitalIn the event this information is protected by the Federal Confidentiality of Alcohol and Drug Abuse Patient Records regulations: The Federal rules restrict any use of the information to criminally investigate or prosecute any alcohol or drug abuse patient.[facility] HospitalIn the event this information is protected by the Federal Confidentiality of Alcohol and Drug Abuse Patient Records regulations: The Federal rules restrict any use of the information to criminally investigate or prosecute any alcohol or drug abuse patient.[facility] HospitalIn the event this information is protected by the Federal Confidentiality of Alcohol and Drug Abuse Patient Records regulations: The Federal rules restrict any use of the information to criminally investigate or prosecute any alcohol or drug abuse patient.[facility] HospitalIn the event this information is protected by the Federal Confidentiality of Alcohol and Drug Abuse Patient Records regulations: The Federal rules restrict any use of the information to criminally investigate or prosecute any alcohol or drug abuse patient.[facility] HospitalIn the event this information is protected by the Federal Confidentiality of Alcohol and Drug Abuse Patient Records regulations: The Federal rules restrict any use of the information to criminally investigate or prosecute any alcohol or drug abuse patient.[facility] Reason for Visit (unrecogniz ed section and content) Reason Comments Established Patient Routine follow up PT SHOWED UP TO DON ON THEIR WAY NOW Reason Comments Follow Up Reason Onset Date Comments Refill Request 04/13/2022 Specialty Diagnoses / Procedures Referred By Contac t Referred To Contact Diagnoses PD (Parkinson's disease) (HCC) Procedures PROVIDER ORDERED FOLLOW UP OFFICE/OUTPATIENT NEW HIGH MDM 60-74 MINUTES Claude Kyle MD [address] [id number] Referral ID Status Reason Start Date Expiration Date V isits Requested Visits Authorized [id number] Closed PCP Requested Referral 08/26/2022 02/23/2023 1 1 Reason Onset Date Comments Refill Request 11/07/2022 Reason Onset Date Comments Refill Request 01/22/2023 Reason Onset Date Comments Refill Request 02/01/2023 Referral ID Status Reason Start Date Expiration Date V isits Requested Visits Authorized [id number] Closed PCP Requested Referral 01/31/2023 11/02/2023 1 1 Reason Comments Follow Up Specialty Diagnoses / Procedures Referred By Contac t Referred To Contact Diagnoses Parkinson's disease (HCC) Procedures PROVIDER ORDERED FOLLOW UP OFFICE/OUTPATIENT NEW HIGH MDM 60-74 MINUTES Molly Mahtew APRN.CNP [address] [id number] Referral ID Status Reason Start Date Expiration Date V isits Requested Visits Authorized [id number] Closed PCP Requested Referral 05/30/2023 02/27/2024 1 1 Reason Onset Date Comments Refill Request 07/05/2023 Reason Onset Date Comments Refill Request 09/26/2023 Reason Onset Date Comments Refill Request 10/09/2023 Reason Onset Date Comments Refill Request 06/25/2024 Reason Onset Date Comments Refill Request 09/16/2024 Reason Comments Refill Request Reason Onset Date Comments Refill Request 01/21/2025 Care Teams (unrecognized sec tion and content) Nurse Practitioner Physicians Assistant Relationship Specialty Start Date End Date Sarika Montaño PCP - General Family Practice 04/18/11 Nurse Practitioner Physicians Assistant Relationship Specialty Start Date End Date Sarika Montaño Dell PCP - General Family Practice 04/18/11 Nurse Practitioner Physicians Assistant Relationship Specialty Start Date End Date Sarika Montaño Dell PCP - General Family Practice 04/18/11 Nurse Practitioner Physicians Assistant Relationship Specialty Start Date End Date Sarika Montaño Dell PCP - General Family Practice 04/18/11 Nurse Practitioner Physicians Assistant Relationship Specialty Start Date End Date Sarika Montaño Dell PCP - General Family Practice 04/18/11 Nurse Practitioner Physicians Assistant Relationship Specialty Start Date End Date Sarika Montaño Dell PCP - General Family Medicine 04/18/11 Nurse Practitioner Physicians Assistant Relationship Specialty Start Date End Date DanyelSarika PCP - General Family Medicine 04/18/11 Nurse Practitioner Physicians Assistant Relationship Specialty Start Date End Date Danyel Sarika Sharpe PCP - General Family Medicine 04/18/11 Nurse Practitioner Physicians Assistant Relationship Specialty Start Date End Date Madisonlissetyudi Sarika Sharpe PCP - General Family Medicine 04/18/11 Team Status: Active Member Role Status Dates Dr. Sarika Montaño MD Family Provider Active Dr. Sarika Montaño MD Primary Care Provider Active Team Status: Active Member Role Status Dates Dr. Sarika Montaoñ MD Primary Care Provider Active AGUSTO ARCE Attending Provider, Referring Provid er Active Team Status: Inactive Member Role Status Dates Dr. Sarika Montaño MD Primary Care Prov ider, Attending Provider, Referring Provider Active Nurse Practitioner Physicians Assistant Relationship Specialty Start Date End Date Sarika Montaño PCP - General Family Medicine 04/18/11 Nurse Practitioner Physicians Assistant Relationship Specialty Start Date End Date Sarika Montaño PCP - General Family Medicine 04/18/11 Nurse Practitioner Physicians Assistant Relationship Specialty Start Date End Date Sarika Montaño PCP - General Family Medicine 04/18/11 Nurse Practitioner Physicians Assistant Relationship Specialty Start Date End Date Sarika Montaño PCP - General Family Medicine 04/18/11 Team Status: Active Member Role Status Dates Dr. Sarika Montaño MD Primary Care Provider Active Dr. Alfredo Singh MD Emergency Provider Active Dr. Marcelo Tan DO Admit Provider, Attending Nikki price Active Team Status: Inactive Member Role Status Dates Dr. Sarika Montaño MD Primary Care Provider Active Dr. Alfredo Singh MD Emergency Provider Active Dr. Marcelo Tan DO Admit Provider, Other Provid er Active Dr. Fritz Srivastava DO Attending Provider Active Team Status: Active Member Role Status Dates Dr. Sarika Montaño MD Primary Care Provider Active Dr. Nikolay Rose MD Emergency Provider Active Dr. Surjit Kirkland MD Admit Provider, Attending Bridgeti osei Active Team Status: Active Member Role Status Dates Dr. Sarika Montaño MD Primary Care Provider Active Dr. Noman Chen DO Attending Provider Active Dr. Surjit Kirkland MD Referring Provider Active Team Status: Active Member Role Status Dates Dr. Sarika Montaño MD Primary Care Provider Active Dr. Nikolay Rose MD Emergency Provider Active Dr. Surjit Kirkland MD Admit Provider, R eferring Provider, Other Provider Active Dr. Noman Chen , DO Other Provider Active Dr. Eric Billingsley MD Other Provider Active Dr. Kelley Shankar MD Attending Provider Active Team Status: Active Member Role Status Dates Dr. Sarika Montaño MD Primary Care Provider Active Dr. Nikolay Rose MD Emergency Provider Active Dr. Surjit Kirkland MD Admit Provider, A ttending Provider, Other Provider Active Dr. Noman Chen DO Other Provider Active Dr. Pito Nickerson MD Other Provider Active Team Status: Active Member Role Status Dates Dr. Sarika Montaño MD Primary Care Provider Active Dr. Nikolay Rose MD Emergency Provider Active Dr. Surjit Kirkland MD Admit Provider, Other Provider Active Dr. Noman Chen , DO Other Provider Active Dr. Pito Nikcerson MD Attending Provider, Other Provi osei Active Team Status: Active Member Role Status Dates Dr. Sarika Montaño MD Primary Care Provider Active Dr. Nikolay Rose MD Emergency Provider Active Dr. Surjit Kirkland MD Admit Provider, R eferring Provider, Other Provider Active Dr. Noman Chen , Attending Provider, Other Prov ider Active Dr. Pito Nickerson MD Other Provider Active Dr. Blayne Rosa MD Other Provider Active Dr. Sterling Iniguez MD Other Provider Active Dr. Steve Buckner , DO Other Provider Active Dr. Rudy Navarrete MD Other Provider Active Dr. Sully Romero MD Other Provider Active Dr. Jabari Santana MD Other Provider Active Dr. Susan Lloyd MD Other Provider Active Dr. Jenna Littlejohn MD Other Provider Active Dr. Alexandru Escobar MD Other Provider Active Dr. Lon Bowman MD Other Provider Active Dr. Ernesto Bowie MD Other Provider Active Dr. Shahid Baumann MD Other Provider Active Team Status: Active Member Role Status Dates Dr. Sarika Montaño MD Primary Care Provider Active Dr. Nikolay Rose MD Emergency Provider Active Dr. Surjit Kirkland MD Admit Provider, Other Provider Active Dr. Noman Chen , DO Other Provider Active Dr. Pito Nickerson MD Attending Provider, Other Provi osei Active Dr. Blayne Rosa MD Other Provider Active Dr. Sterling Iniguez MD Other Provider Active Dr. Steve Buckner , DO Other Provider Active Dr. Rudy Navarrete MD Other Provider Active Dr. Sully Romero MD Other Provider Active Dr. Jabari Santana MD Other Provider Active Dr. Susan Lloyd MD Other Provider Active Dr. Jenna Littlejohn MD Other Provider Active Dr. Alexandru Escobar MD Other Provider Active Dr. Lon Bowman MD Other Provider Active Dr. Ernesto Bowie MD Other Provider Active Dr. Shahid Baumann MD Other Provider Active Team Status: Active Member Role Status Dates Dr. Sarika Montaño MD Primary Care Provider Active Dr. Nikolay Rose MD Emergency Provider Active Dr. Surjit Kirkland MD Admit Provider, A ttending Provider, Other Provider Active Dr. oNman Chen , DO Other Provider Active Dr. Pito Nickerson MD Other Provider Active Dr. Blayne Rosa MD Other Provider Active Dr. Sterling Iniguez MD Other Provider Active Dr. Steve Buckner , DO Other Provider Active Dr. Rudy Navarrete MD Other Provider Active Dr. Sully Romero MD Other Provider Active Dr. Jabari Santana MD Other Provider Active Dr. Susan Lloyd MD Other Provider Active Dr. Jenna Littlejohn MD Other Provider Active Dr. Alexandru Escobar MD Other Provider Active Dr. Lon Bowman MD Other Provider Active Dr. Ernesto Bowie MD Other Provider Active Dr. Shahid Baumann MD Other Provider Active Team Status: Active Member Role Status Dates Dr. Sarika Montaño MD Primary Care Provider Active Dr. Nikolay Rose MD Emergency Provider Active Dr. Surjit Kirkland MD Admit Provider, Other Provider Active Dr. Noman Chen , DO Other Provider Active Dr. Pito Nickerson MD Other Provider Active Dr. Blayne Rosa MD Other Provider Active Dr. Sterling Iniguez MD Attending Provider, Other Provid er Active Dr. Steve Buckner , Other Provider Active Dr. Rudy Navarrete MD Other Provider Active Dr. Sully Romero MD Other Provider Active Dr. Jabari Santana MD Other Provider Active Dr. Susan Lloyd MD Other Provider Active Dr. Jenna Littlejohn MD Other Provider Active Dr. Alexandru Escobar MD Other Provider Active Dr. Lon Bowman MD Other Provider Active Dr. Ernesto Bowie MD Other Provider Active Dr. Shahid Baumann MD Other Provider Active Team Status: Active Member Role Status Dates Dr. Sarika Montaño MD Primary Care Provider Active Dr. Nikolay Rose MD Emergency Provider Active Dr. Surjit Kirkland MD Admit Provider, Other Provider Active Dr. Noman Chen , DO Other Provider Active Dr. Pito Nickerson MD Other Provider Active Karin DELEON PA-C Attending Provider Active Team Status: Active Member Role Status Dates Dr. Sarika Montaño MD Primary Care Provider Active Dr. Nikolay Rose MD Emergency Provider Active Dr. Surjit Kirkland MD Admit Provider, Other Provider Active Dr. Pito Nickerson MD Other Provider Active Dr. Noman Chen , DO Other Provider Active Dr. Eric Billingsley MD Other Provider Active Dr. Missy Phelan , DO Other Provider Active Karin DELEON PA-C Attending Provider Active Team Status: Active Member Role Status Dates Dr. Sarika Montaño MD Primary Care Provider Active Dr. Nikolay Rose MD Emergency Provider Active Dr. Surjit Kirkland MD Admit Provider, Other Provider Active Dr. Pito Nickerson MD Other Provider Active Dr. Noman Chen , DO Other Provider Active Dr. Eric Billingsley MD Other Provider Active Dr. Missy Phelan , DO Attending Provider, Other Provide r Active Team Status: Active Member Role Status Dates Dr. Sarika Montaño MD Primary Care Provider Active Dr. Nikolay Rose MD Emergency Provider Active Dr. Surjit Kirkland MD Admit Provider, A ttending Provider, Other Provider Active Dr. Pito Nickerson MD Other Provider Active Dr. Missy Phelan , DO Other Provider Active Dr. Noman Chen , DO Other Provider Active Dr. Eric Billingsley MD Other Provider Active Team Status: Active Member Role Status Dates Dr. Sarika Montaño MD Primary Care Provider Active Dr. Nikolay Rose MD Emergency Provider Active Dr. Surjit Kirkland MD Admit Provider, Other Provider Active Dr. Pito Nickerson MD Other Provider Active Dr. Missy Phelan , DO Attending Provider, Other Provide r Active Dr. Noman Chen , DO Other Provider Active Dr. Eric Billingsley MD Other Provider Active Team Status: Active Member Role Status Dates Dr. Sarika Montaño MD Primary Care Provider Active Dr. Nikolay Rose MD Emergency Provider Active Dr. Surjit Kirkland MD Admit Provider, Other Provider Active Dr. Pito Nickerson MD Other Provider Active Dr. Missy Phelan , DO Attending Provider, Other Provide r Active Dr. Noman Chen , DO Other Provider Active Dr. Eric Billingsley MD Other Provider Active Dr. Garth Becerra MD Other Provider Active Team Status: Active Member Role Status Dates Dr. Sarika Montaño MD Primary Care Provider Active Dr. Nikolay Rose MD Emergency Provider Active Dr. Surjit Kirkland MD Admit Provider, Other Provider Active Dr. Pito Nickerson MD Other Provider Active Dr. Missy Phelan , DO Other Provider Active Dr. Noman Chen , DO Other Provider Active Dr. Eric Billingsley MD Other Provider Active Dr. Garth Becerra MD Other Provider Active Dr. Kristian Giles MD Attending Provider Active Team Status: Active Member Role Status Dates Dr. Sarika Montaño MD Primary Care Provider Active Dr. Nikolay Rose MD Emergency Provider Active Dr. Surjit Kirkland MD Admit Provider, Other Provider Active Dr. Pito Nickerson MD Attending Provider, Other Provi osei Active Dr. Missy Phelan , DO Other Provider Active Dr. Noman Chen , DO Other Provider Active Dr. Eric Billingsley MD Other Provider Active Dr. Garth Becerra MD Other Provider Active Team Status: Active Member Role Status Dates Dr. Sarika Montaño MD Primary Care Provider Active Dr. Nikolay Rose MD Emergency Provider Active Dr. Surjit Kirkland MD Admit Provider, A ttending Provider, Other Provider Active Dr. Pito Nickerson MD Other Provider Active Dr. Missy Phelan , DO Other Provider Active Dr. Noman Chen , DO Other Provider Active Dr. Eric Billingsley MD Other Provider Active Dr. Garth Becerra MD Other Provider Active Team Status: Inactive Member Role Status Dates Dr. Sarika Montaño MD Primary Care Provider Active Dr. Nikolay Rose MD Emergency Provider Active Dr. Surjit Kirkland MD Admit Provider, Attending Provi osei Active Dr. Pito Nickerson MD Other Provider Active Dr. Missy Phelan , DO Other Provider Active Dr. Noman Chen , DO Other Provider Active Dr. Eric Billingsley MD Other Provider Active Dr. Garth Becerra MD Other Provider Active Team Status: Active Member Role Status Dates Dr. Sarika Montaño MD Primary Care Provider Active Dr. Nikolay Rose MD Emergency Provider Active Dr. Surjit Kirkland MD Admit Provider, R eferring Provider, Other Provider Active Dr. Noman Chen , DO Other Provider Active Dr. Pito Nickerson MD Other Provider Active Dr. Blayne Rosa MD Other Provider Active Dr. Sterling Iniguez MD Attending Provider, Other Provid er Active Dr. Steve Buckner , Other Provider Active Dr. Rudy Navarrete MD Other Provider Active Dr. Sully Romero MD Other Provider Active Dr. Jabari Santana MD Other Provider Active Dr. Susan Lloyd MD Other Provider Active Dr. Jenna Littlejohn MD Other Provider Active Dr. Alexandru Escobar MD Other Provider Active Dr. Lon Bowman MD Other Provider Active Dr. Ernesto Bowie MD Other Provider Active Dr. Shahid Baumann MD Other Provider Active Team Status: Active Member Role Status Dates Dr. Sarika Montaño MD Primary Care Provider Active Dr. Ravi Conway MD Admit Provider, Other Provider A ctive Dr. Surjit Kirkland MD Attending Provider Active Team Status: Active Member Role Status Dates Dr. Sarika Montaño MD Primary Care Provider Active Dr. Raiv Conwya MD Admit Provider, Other Provider A ctive Karin DELEON, PA-C Attending Provider Active Team Status: Inactive Member Role Status Dates Dr. Sarika Montaño MD Primary Care Provider Active Dr. Ravi Conway MD Admit Provider, Attending Provid er Active Nurse Practitioner Physicians Assistant Relationship Specialty Start Date End Date Sarika Montaño PCP - General Family Medicine 04/18/11 Nurse Practitioner Physicians Assistant Relationship Specialty Start Date End Date Sarika Montaño PCP - General Family Medicine 04/18/11 Nurse Practitioner Physicians Assistant Relationship Specialty Start Date End Date Sarika Montaño PCP - General Family Medicine 04/18/11 Nurse Practitioner Physicians Assistant Relationship Specialty Start Date End Date Sar[place] [id number] PCP - General Family Medicine 11/30/24 Nurse Practitioner Physicians Assistant Relationship Specialty Start Date End Date Sarika Montaño PCP - General Family Medicine 04/18/11 Team Status: Active Member Role Status Dates Dr. Sarika Montaño MD Primary Care Provider Active Team Status: Inactive Member Role Status Dates Dr. Sarika Montaño MD Primary Care Provider Active Start: November 29, 2024 End: November 30, 2024 aMtilde Brantley MD Attending Provider Active Star t: November 29, 2024 End: November 30, 2024 Matilde Brantley MD Emergency Provider Active Star t: November 29, 2024 End: November 30, 2024 Team Status: Active Member Role Status Dates Dr. Sarika Montaño MD Primary Care Provider Active Start: November 29, 2024 Matilde Brantley MD Referring Provider Active Star t: November 29, 2024 Matilde Brantley MD Emergency Provider Active Star t: November 29, 2024 Dr. Surjit Kirkland MD Attending Provider Active Start: November 29, 2024 Team Status: Inactive Member Role Status Dates Dr. Sarika Montaño MD Primary Care Provider Active Start: January 25, 2025 End: January 25, 2025 Dr. Sarika Montaño MD Attending Provider Active Start: January 25, 2025 End: January 25, 2025 Dr. Sarika Montaño MD Referring Provider Active Start: January 25, 2025 End: January 25, 2025 Goals (unrecognized section and content) Goals may be documented in a n alternate sectionGoals may be documented in an alternate sectionGoals may be documented in an alternate sectionGoals may be documented in an alternate section (unrecognized sect ion and content) No Status Records FoundNo Status Records FoundNo Status Records Found INFORMATION SOURCE (unrecogn ized section and content) DATE CREATED AUTHOR 08/23/[address] [facility] DATE CREATED AUTHOR AUTHOR'S ORGANIZ ATION 12/31/2024 [facility] DATE CREATED AUTHOR AUTHOR'S ORGANIZ ATION 01/31/2025 [facility] Scheduled Active and Recently Administ ered Medications (unrecognized section and content) Medication Order 11/29/2024 11/30/2024 12/01/2024 Acetaminophen (TYLENOL) tablet 975 mg 975 mg, Oral, 3 TIMES DAILY, First dose on Sat11/30/24 at 0900, Until Discontinued, Maximum dose of acetaminophen is 4000 mg from all sources in 24 hours. 0955 (Not Given - Provider: Chanel Dougherty RN - Reason: Patient/family refused)1537 (Not Given - Provider: Chanel Dougherty RN - Reason: Patient/family refused)1551 (MAR Hold - Provider: Automatic Transfer - Reason: Transfer to a Procedural area)1822 (DEC Unhold - Provider: Automatic Transfer)2046 (Not Given - Provider: Marisa Toussaint RN - Reason: Patient/family refused) 1008 (Not Given - Provider: Curt Pereira RN - Reason: Patient/family refused - Comment: no pain)1336 (Not Given - Provider: Curt Pereira RN - Reason: Patient/family refused)2100 (Canceled Entry - Provider: System Discharge - Comment: Automatically canceled at discontinue of medication order) Amantadine (SYMMETREL) capsule 100 mg 100 mg, Oral, 2 TIMES DAILY, First dose on Sat11/30/24 at 1300, Until Discontinued 1538 (Not Given - Provider: Chanel Dougherty RN - Reason: Patient/family refused)1551 (MAR Hold - Provider: Automatic Transfer - Reason: Transfer to a Procedural area)1700 (Automatically Held - Provider: Automatic Transfer)1822 (MAR Unhold - Provider: Automatic Transfer)2048 (Given - Provider: Marisa Toussaint RN) 1335 (Given - Provider: Curt Pereira RN)1628 (Given - Provider: Chanel Dougherty RN) Amantadine (SYMMETREL) capsule 200 mg (CANCELED) 200 mg, Oral, DAILY, First dose on Sat11/30/24 at 0900, Until Discontinued, Take 2 capsules at 9am, then 1 tablet at 1 pm and 5 pm. (Continuation of home dosing) 1134 (Given - Provider: Sangeeta Kraft RN)1551 (MAR Hold - Provider: Automatic Transfer - Reason: Transfer to a Procedural area)182 (MAR Unhold - Provider: Automatic Transfer) carbidopa-levodopa (SINEMET CR) 25-100 MG tablet CR 1 tablet (CANCELED) 1 tablet, Oral, DAILY AT BEDTIME, First dose on Sat11/30/24 at 2100, Until Discontinued, Swallow whole; do not chew, divide or crush. May split tablet in half if product is scored. If tablet(s) unscored and need alternative dose, contact pharmacy. (Continuation of home dosing) 1551 (DEC Hold - Provider: Automatic Transfer - Reason: Transfer to a Procedural area)182 (DEC Unhold - Provider: Automatic Transfer)2046 (Given - Provider: Marisa Toussaint RN) Carbidopa-levodopa (SINEMET) 25-100 MG per tablet 1 tablet 1 tablet, Oral, 3 TIMES DAILY, First dose (after last modification) on Sat12/01/24 at 1100, Until Discontinued, Take 1.5 tablet every 5 hours, 3 times daily. (Continuation of home dosing) 1006 (Given - Provid er: Curt Pereira RN)1628 (Given - Provider: Chanel Dougherty RN) Carbidopa-levodopa (SINEMET) 25-100 MG per tablet 1.5 tablet (CANCELED) 1.5 tablet, Oral, 3 TIMES DAILY, First dose on Sat11/30/24 at 0615, Until Discontinued, Take 1.5 tablet every 5 hours, 3 times daily. (Continuation of home dosing) 0638 (Given - Provider: Ting Cardona RN)1134 (Given - Provider: Sangeeta Kraft RN)1551 (DEC Hold - Provider: Automatic Transfer - Reason: Transfer to a Procedural area)1600 (Automatically Held - Provider: Automatic Transfer)182 (MAR Unhold - Provider: Automatic Transfer) 0500 (Given - Provider: Marisa Toussaint, SHARAN) cefTRIAXone (ROCEPHIN) 2 g in dextrose 50mL premix IVPB (CANCELED) 2 g, Intravenous, Administer over 30 Minutes, EVERY 24 HOURS, First dose on Sat11/30/24 at 0500, Until Discontinued 0558 ($$New Bag$$ - Provider: Ting Cardona RN)0628 (Stopped - Provider: Ting Cardona RN)1551 (DEC Hold - Provider: Automatic Transfer - Reason: Transfer to a Procedural area)1822 (DEC Unhold - Provider: Automatic Transfer) 0448 ($$New Bag$$ - Provider: Marisa Toussaint RN)0519 (Stopped - Provider: Curt Pereira, RN) iohexol (OMNIPAQUE) 350 MG/ML injection 200 mL (COMPLETED) 200 mL, Rectal, ONCE, 1 dose, On Sat12/01/24 at 1515, Extravasation Risk 1435 (Given - Radiol ogy - Provider: Miriam Owen) lidocaine 4 % patch 1 patch 1 patch, Transdermal, Administer over 12 Hours, EVERY 24 HOURS, First dose on Sat11/30/24 at 0445, Until Discontinued, Apply to painful areas . 0509 (Not Given - Provider: Ting Cardona RN - Reason: Patient/family refused)1551 (DEC Hold - Provider: Automatic Transfer - Reason: Transfer to a Procedural area)1822 (DEC Unhold - Provider: Automatic Transfer) 0455 (Not Given - Provider: Marisa Toussaint RN - Reason: Patient/family refused) metroNIDAZOLE (FLAGYL) 500 mg in NaCl premix IVPB (CANCELED) 500 mg, Intravenous, at 200 mL/hr, Administer over 30 Minutes, EVERY 8 HOURS, First dose on Sat11/30/24 at 0600, Until Discontinued 0638 ($$New Bag$$ - Provider: Ting Cardona RN)0708 (Stopped - Provider: Sangeeta Kraft RN)1539 ($$New Bag$$ - Provider: Chanel Dougherty RN)1551 (DEC Hold - Provider: Automatic Transfer - Reason: Transfer to a Procedural area)1554 (Rate/Dose Verify - Provider: Sangeeta Kraft RN)1610 (Stopped - Provider: Sangeeta Kraft RN)1822 (DEC Unhold - Provider: Automatic Transfer)205 ($$New Bag$$ - Provider: Marisa Toussaint RN)212 (Stopped - Provider: Marisa Toussaint RN) 0559 ($$New Bag$$ - Provider: Marisa Toussaint RN)0629 (Stopped - Provider: Curt Pereira RN) Continuous Medication Order 11/29/2024 11/30/2024 12/01/2024 Sodium chloride 0.9% IV solution (CANCELED) Intravenous, at 100 mL/hr, CONTINUOUS, Starting on Sat11/30/24 at 0415, Until Sat12/01/24 at 1656 0508 ($$New Bag$$ - Provider: Ting Cardona RN)0519 (Rate/Dose Verify - Provider: Ting Cardona RN)0536 (Restarted - Provider: Ting Cardona RN)0546 (Rate/Dose Verify - Provider: Ting Cardona RN)0628 (Rate/Dose Verify - Provider: Ting Cardona RN)0635 (Rate/Dose Verify - Provider: Ting Cardona, RN)0638 (Paused - Provider: Sangeeta Kraft RN)0708 (Restarted - Provider: Sangeeta Kraft RN)0819 (Paused - Provider: Sangeeta Kraft RN)0849 (Restarted - Provider: Sangeeta Kraft RN)1131 (Rate/Dose Verify - Provider: Sangeeta Kraft RN)1539 (Stopped - Provider: Sangeeta Kraft RN)1551 (MAR Hold - Provider: Automatic Transfer - Reason: Transfer to a Procedural area)1610 (Restarted - Provider: Sangeeta Kraft RN)1629 (Stopped - Provider: Sangeeta Kraft RN)1630 (Restarted - Provider: Yamilet Mackay APRN-TAX COMPLIANCE MANAGER)1700 (Stopped - Provider: Yamilet Mackay APRN-TAX COMPLIANCE MANAGER)1822 (MAR Unhold - Provider: Automatic Transfer)1833 ($$New Bag$$ - Provider: Sangeeta Kraft RN)183 (Rate/Dose Verify - Provider: Sangeeta Kraft RN)2025 (Paused - Provider: Marisa Toussaint RN)2032 (Restarted - Provider: Marisa Toussaint RN)2049 (Paused - Provider: Marisa Toussaint RN)2121 (Restarted - Provider: Marisa Toussaint RN)2142 (Paused - Provider: Marisa Toussaint, RN)2144 (Restarted - Provider: Marisa Toussaint RN)2149 (Paused - Provider: Marisa Toussaint RN)2159 (Restarted - Provider: Marisa Toussaint RN)2309 (Rate/Dose Verify - Provider: Marisa Toussaint RN) 0404 (Rate/Dose Verify - Provider: Marisa Toussaint RN)0429 (Restarted - Provider: Curt Pereira RN)0448 (Paused - Provider: Curt Pereira RN)0519 (Restarted - Provider: Curt Pereira RN)0559 (Paused - Provider: Curt Pereira, SHARAN)0629 (Restarted - Provider: Curt Pereira, SHARAN)0721 (Paused - Provider: Curt Pereira RN)0724 (Rate/Dose Change - Provider: Curt Pereira RN)0725 ($$New Bag$$ - Provider: Marisa Toussaint RN)0907 (Rate/Dose Verify - Provider: Curt Pereira RN)1148 (Paused - Provider: Curt Pereira RN)1206 (Restarted - Provider: Curt Pereira RN)1310 (Paused - Provider: Curt Pereira RN)1316 (Restarted - Provider: Curt Pereira RN)1325 (Rate/Dose Verify - Provider: Curt Pereira RN)1500 (Stopped - Provider: Chanel Dougherty RN) PRN Medication Order 11/29/2024 11/30/2024 12/01/2024 HYDROmorphone (DILAUDID) injection 0.2 mg(Linked Group 1) 0.2 mg, Intravenous, EVERY 3 HOURS NEEDED, Starting on Sat11/30/24 at 0409, Until Sat12/01/24 at 2238, Severe Pain, Use as initial dose. Higher dose may be administered if lower dose was previously documented as ineffective and did not result in adverse effects (RR<10, decrease in level of consciousness). For severe pain IF patient unable to tolerate PO. 1551 (DEC Hold - Provider: Automatic Transfer - Reason: Transfer to a Procedural area)1822 (DEC Unhold - Provider: Automatic Transfer) HYDROmorphone (DILAUDID) injection 0.5 mg(Linked Group 1) 0.5 mg, Intravenous, EVERY 3 HOURS NEEDED, Starting on Sat11/30/24 at 0409, Until Sat12/01/24 at 2238, Severe Pain, Higher dose may be administered if lower dose was previously documented as ineffective and did not result in adverse effects (RR<10, decrease in level of consciousness). Decrease back to lower dose if patient has adverse effects, or no PRN used in previous 12 hours. For severe pain IF patient unable to tolerate PO. 1551 ([facility] Hold - Provider: Automatic Transfer - Reason: Transfer to a Procedural area)182 ([facility] Unhold - Provider: Automatic Transfer) Ondansetron (ZOFRAN) tablet 4 mg(Linked Group 2) 4 mg, Oral, EVERY 6 HOURS NEEDED, Starting on Sat11/30/24 at 0406, Until Sat12/01/24 at 2238, Nausea / Vomiting, 1st Line Nausea / Vomiting 1551 ([facility] Hold - Provider: Automatic Transfer - Reason: Transfer to a Procedural area)182 ([facility] Unhold - Provider: Automatic Transfer) Ondansetron 4mg/2ml (ZOFRAN) injection 4 mg(Linked Group 2) 4 mg, Intravenous, EVERY 6 HOURS NEEDED, Starting on Sat11/30/24 at 0406, Until Sat12/01/24 at 2238, Nausea / Vomiting, 1st Line Nausea / Vomiting, If patient is unable to tolerate PO. 1551 ([facility] Hold - Provider: Automatic Transfer - Reason: Transfer to a Procedural area)182 ([facility] Unhold - Provider: Automatic Transfer) Phenol (CHLORASEPTIC) 1.4 % oral spray 1 spray 1 spray, Mouth/Throat, NEEDED, Starting on Sat11/30/24 at 0406, Until Sat12/01/24 at 2238, Sore Throat, Patient may self-administer. 1551 ([facility] Hold - Provider: Automatic Transfer - Reason: Transfer to a Procedural area)182 ([facility] Unhold - Provider: Automatic Transfer) Prochlorperazine (COMPAZINE) injection 5 mg(Linked Group 3) 5 mg, Intravenous, EVERY 6 HOURS NEEDED, Starting on Sat11/30/24 at 0406, Until Sat12/01/24 at 2238, Refractory Nausea Vomiting, If unrelieved by Ondansetron. Administer IV if patient is unable to tolerate PO. 155 ([facility] Hold - Provider: Automatic Transfer - Reason: Transfer to a Procedural area)1821 ([facility] Unhold - Provider: Automatic Transfer) Prochlorperazine (COMPAZINE) tablet 5 mg(Linked Group 3) 5 mg, Oral, EVERY 6 HOURS NEEDED, Starting on Sat11/30/24 at 0406, Until Sat12/01/24 at 2238, Refractory Nausea Vomiting, If unrelieved by Ondansetron. 1551 ([facility] Hold - Provider: Automatic Transfer - Reason: Transfer to a Procedural area)1821 ([facility] Unhold - Provider: Automatic Transfer) Sodium chloride 0.9% IV solution 250 mL Intravenous, at 20 mL/hr, NEEDED, Starting on Sat11/30/24 at 0406, Until Sat12/01/24 at 2238, Carrier Fluid - See Admin. Inst, 250mL 0.9NS to be used as carrier fluid for intermittent small volume or piggyback medication administration as needed. Infusion rate of the carrier fluid should be set at 20 mL/hr unless the rate as the intermittent medication is less than 20 mL/hr. For intermittent medications with a rate less than 20 mL/hr set the carrier fluid at that rate of the intermittent or piggy back medication. 155 ([facility] Hold - Provider: Automatic Transfer - Reason: Transfer to a Procedural area)1821 ([facility] Unhold - Provider: Automatic Transfer) Linked Groups Order Group 1: HYDROmorphone (DILAUDID) injection 0.2 mgJump to med 0.2 mg, Intravenous, EVERY 3 HOURS NEEDED, Starting on Sat11/30/24 at 0409, Until Sat12/01/24 at 2238, Severe Pain, Use as initial dose. Higher dose may be administered if lower dose was previously documented as ineffective and did not result in adverse effects (RR<10, decrease in level of consciousness). For severe pain IF patient unable to tolerate PO. Or HYDROmorphone (DILAUDID) injection 0.5 mgJump to med 0.5 mg, Intravenous, EVERY 3 HOURS NEEDED, Starting on Sat11/30/24 at 0409, Until Sat12/01/24 at 2238, Severe Pain, Higher dose may be administered if lower dose was previously documented as ineffective and did not result in adverse effects (RR<10, decrease in level of consciousness). Decrease back to lower dose if patient has adverse effects, or no PRN used in previous 12 hours. For severe pain IF patient unable to tolerate PO. Group 2: Ondansetron (ZOFRAN) tablet 4 mgJump to med 4 mg, Oral, EVERY 6 HOURS NEEDED, Starting on Sat11/30/24 at 0406, Until Sat12/01/24 at 2238, Nausea / Vomiting, 1st Line Nausea / Vomiting Or Ondansetron 4mg/2ml (ZOFRAN) injection 4 mgJump to med 4 mg, Intravenous, EVERY 6 HOURS NEEDED, Starting on Sat11/30/24 at 0406, Until Sat12/01/24 at 2238, Nausea / Vomiting, 1st Line Nausea / Vomiting, If patient is unable to tolerate PO. Group 3: Prochlorperazine (COMPAZINE) tablet 5 mgJump to med 5 mg, Oral, EVERY 6 HOURS NEEDED, Starting on Sat11/30/24 at 0406, Until Sat12/01/24 at 2238, Refractory Nausea Vomiting, If unrelieved by Ondansetron. Or Prochlorperazine (COMPAZINE) injection 5 mgJump to med 5 mg, Intravenous, EVERY 6 HOURS NEEDED, Starting on Sat11/30/24 at 0406, Until Sat12/01/24 at 2238, Refractory Nausea Vomiting, If unrelieved by Ondansetron. Administer IV if patient is unable to tolerate PO. FOR RECORDS PERTAINING TO PATIENTS WHO ARE [...] BE BASED ON THE PRIMARY CLINICAL RECORDS. [email or web address] provides no warranty or guarantee of the accuracy or completeness of information in this document.
[2025-03-23 03:05] LABS: ALB/GLOB Ratio 1.1 RATIO (0.9-2.4); AST(SGOT) 40 U/L (<=37); Alanine Aminotransfer ALT/SGPT 13 U/L (<=46); Albumin, Serum 3.9 g/dL (3.4-4.8); Alkaline Phosphatase 118 U/L (40-129); Anion Gap 14 (5-15); BUN 21 mg/dL (4-19); BUN/Creat Ratio 18.7 RATIO (10-20); Calcium,Total 9.2 mg/dL (7.6-11.0); Carbon Dioxide 26.2 mmol/L (21.0-32.0); Chloride 97 mmol/L (98-108); EST Glomerular Filtration Rate 69 (>60); Globulin 3.4 g/dL (2.2-4.2); Glucose 137 mg/dL (70-99); Protein, Total 7.3 g/dL (5.9-8.4); Sodium Level 137 mmol/L (133-145); Total Bilirubin 1.41 mg/dL (0.00-1.30)
--- NOTE | 2025-03-23 03:37 | EKG12_ITS ---
Test Reason : FEVER Blood Pressure : */* mmHG Vent. Rate : 95 BPM Atrial Rate : 95 BPM P-R Int : 114 ms QRS Dur : 88 ms QT Int : 360 ms P-R-T Axes : -26 -53 24 degrees QTcB Int : 452 ms Normal sinus rhythm Left axis deviation Abnormal ECG Confirmed by JESSIE SAVAGE, AIDA ([id number]), school photograph editor ARGELIA MERA ([id number]) on 03/29/2025 7:04:41 AM Referred By: Confirmed By: AIDA ROMAN MD
[2025-03-23 03:38] LABS: Mucous, Urine 0 SEEN /hpf (<or=2+); Red Blood Cells-Urine 0 SEEN /hpf (0-5); Squamous Epithelial Cells - UA 0 SEEN /hpf (0-5); White Blood Cells 0 SEEN /hpf (0-5)
[2025-03-23 03:43] LABS: Color, Urine Yellow (Yellow); Glucose, Dipstick Normal (Normal); Ketone-Dipstick Negative (Negative); Leukocyte Esterase-Dipstick 25 /ul (Negative); Nitrite-Dipstick Negative (Negative); Occult Blood-Urine 250 /ul (Negative); Protein-Dipstick 30 mg/dl (Negative); Urine Bilirubin Dipstick Negative (Negative); Urine Clarity Clear (Clear); Urine Urobilinogen 1 mg/dl (Normal)
[2025-03-23 03:52] LABS: Bacteria 1+ /hpf (None Seen)
[2025-03-23 03:54] LABS: International Normalized Ratio 1.2; Prothrombin Time (Protime)PT. 15.8 SECONDS (11.7-14.9)
[2025-03-23 03:55] LABS: Partial Thromboplast Time 30.7 Seconds (24.1-36.2)
--- NOTE | 2025-03-23 04:20 | CT_ITS ---
PROCEDURE: ABDOMEN/PELVIS W IV CONT ONLY 03/23/2025 REASON FOR EXAM: ABDOMINAL PAIN, FEVER TECHNIQUE: Abdomen and pelvis CT with intravenous contrast. Coronal and Sagittal reconstruction series were provided. PATIENT PREPARATION: Per protocol ORAL CONTRAST TYPE: None. CONTRAST: Isovue-[id number] VOLUME: 100 mL One or more dose reduction techniques were used (e.g., Automated exposure control, adjustment of the mA and/or kV according to patient size, use of iterative reconstruction technique. RADIATION DOSE SUMMARY: CTDlvol: 6.64 mGy DLP: 370 mGycm COMPARISON: CT scan on 11/29/2024. FINDINGS: Minimal left pleural effusion. Passive atelectatic airspace disease in the left lower lobe. Left renal simple cyst measuring 5 cm. Again are noted the changes from prior partial colectomy. 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 Fluid-filled dilated small bowels, possibly presenting ileus and/or developing low-grade partial small bowel obstruction. No evidence of bowel perforation or pneumatosis intestinalis. Moderate amount of fecal residue in the proximal colon, probably constipation. Surgical changes of the anterior abdominal wall. Diffuse thickening and enhancement of the wall of the Dhillon pouch suggestive of proctitis/colitis. No evidence of associated perforation or abscess formation. Mild prostatomegaly. Scattered prostatic calcifications. Diffuse thickening of the wall of the bladder. Chronic bladder outlet obstruction versus cystitis. Scattered simple hepatic cysts are noted with the largest measuring 1.2 cm. Moderate diffuse spondylosis. Normal remaining liver. Normal gallbladder and extrahepatic biliary system. Normal spleen. Normal pancreas. Normal bilateral adrenal glands. Normal size of the right kidney. There is no right renal mass. There are no right renal calculi. There is no right hydronephrosis. Normal visualized right ureter. Normal size of the left kidney. There is no left renal mass. There are no left renal calculi. There is no left hydronephrosis. Normal visualized left ureter. There is no demonstrated peritoneal fluid. Calcified atheromatous plaques of the abdominal aorta. Normal inferior vena cava. Normal retroperitoneum. There is no pelvic mass lesion or lymphadenopathy. There is no pelvic fluid. CT/Abdomen/Pelvis W IV Cont ONLY IMPRESSION: Minimal left pleural effusion. Passive atelectatic airspace disease in the left lower lobe. Left renal simple cyst measuring 5 cm. Again are noted the changes from prior partial colectomy. Left lower quadrant colostomy with associated parastomal hernia but without inc arceration. Fluid-filled dilated small bowels, possibly presenting ileus and/or developing low-grade partial small bowel obstruction. No evidence of bowel perforation or pneumatosis intestinalis. Moderate amount of fecal residue in the proximal colon, probably constipation. Surgical changes of the anterior abdominal wall. Diffuse thickening and enhancement of the wall of the Dhillon pouch suggestive of proctitis/colitis. No evidence of associated perforation or abscess formation. Mild prostatomegaly. Scattered prostatic calcifications. Diffuse thickening of the wall of the bladder. Chronic bladder outlet obstructi on versus cystitis. Scattered simple hepatic cysts are noted with the largest measuring 1.2 cm. Moderate diffuse spondylosis. Reading Location: [id number]
--- NOTE | 2025-03-23 05:33 | PCM.HP.STD ---
HPI - General General Date of Admission: 03/23/25 Date of Service: 03/23/25 Chief Complaint: Weakness, debility, fevers. HPI Narrative The patient is a 79 y/o M w/ PMHx: BPH without obstructive pathology, Hx of volvulus/intestinal obstruction status post surgical intervention, CKD stage II per GFR trending, HTN, HLD, Parkinson's disease who presents to the [facility] ED on 03/23/2025 with history of onset of significant debility, weakness and fevers with no specific abdominal pain or any recent episodes of nausea and emesis or alteration from ostomy output. Workup in the ED included T102.9, heart 100, BP 161/83, respiratory rate 28, 97% on room air, CBC with WC 10.8, hemoglobin 11.4, MCV 95.5, platelet 308 with left shift and lymphopenia, CMP with chloride 97, BUN/creatinine 21/1.010, GFR 69, glucose 137, T. bili 1.41, AST/LT 40/13, lactic acid 2.0, chest x-ray with no acute cardiopulmonary findings, CT abdomen and pelvis with minimal left pleural effusion, passive atelectasis airspace disease in the left lower lobe, left renal simple cyst measuring 5 cm, changes from prior partial colectomy, left lower quadrant colostomy with associated parastomal hernia without incarceration, fluid-filled dilated small bowel representing possible ileus or developing low-grade partial small bowel obstruction with no evidence of any bowel perforation or pneumatosis intestinalis, moderate amount of fecal residue in the proximal colon probably constipation, surgical changes in the anterior abdominal wall, diffuse thickening and enhancement of the wall of the Alicia pouch suggestive of colitis with no evidence of any perforation or abscess formation, mild prostamegaly, scattered prostatic calcifications, diffuse thickening of the wall of the bladder with chronic bladder outlet obstruction versus cystitis, scattered simple hepatic cysts, moderate diffuse spondylosis urinalysis with specific gravity 1.020, occult blood 250, negative nitrite, leukocyte Estrace only 25 with no marked urine WBCs with 1+ bacteria although again not concerning for UTI. In the ED patient ministered 1 L normal saline, Tylenol 650 mg p.o. x 1, Toradol 15 mg IV x 1, IV Zosyn 4.5 g x 1. Blood culture x 2 pending per ED, urine culture pending per ED. [facility] Medical History Bilateral inguinal hernia Incisional hernia of anterior abdominal wall without obstruction or gangrene History of intestinal obstruction Wound dehiscence, surgical BPH (benign prostatic hyperplasia) Debility Hypertension CKD (chronic kidney disease), stage II Parkinson disease Home Medications ?Medication ?Instructions ?Recorded ?Last Taken ?Type amantadine HCl 100 mg capsule 100 mg PO DAILY hill 12/04/23 12/24/23 08:15 History food supplemt, lactose-reduced 120 ml PO 4X/DAY nutrition #237 mL 12/24/23 12/24/23 13:05 Rx 0.08 gram-1.5 kcal/mL oral liquid (Ensure Plus High Protein) carbidopa 25 mg-levodopa 100 mg 2 tab PO 0800 #0 tabs 01/16/24 Unknown Rx tablet carbidopa ER 50 mg-levodopa 200 mg 1 tab PO QHS #0 tabs 01/16/24 Unknown Rx tablet,extended release carboxymethylcellulose sodium 0.5 1 drp ophthalmic (eye) Q6H PRN PRN 01/16/24 Unknown Rx % eye drops (Refresh Tears) DRY EYES #0 mL melatonin 10 mg sublingual tablet 5 mg (1/2 x 10 mg) PO QHS PRN 01/16/24 Unknown Rx Insomnia #0 tabs sennosides 8.6 mg-docusate sodium 2 tab PO BID #0 tabs 01/16/24 Unknown Rx 50 mg tablet (Stool Softener-Stimulant Laxative) sodium chloride 0.65 % nasal spray 1 spray NASAL BID PRN PRN NASAL 01/16/24 Unknown Rx aerosol (Deep Sea Nasal) DRYNESS #0 mL hydrochlorothiazide 25 mg tablet 12.5 mg PO DAILY 04/24/24 Unknown History aspirin 81 mg tablet,delayed 81 mg PO DAILY 11/29/24 Unknown History release (Adult Aspirin Regimen) carbidopa 25 mg-levodopa 100 mg 2 tab PO TID 11/29/24 Unknown History tablet Allergy/AdvReac Type Severity Reaction Status Date / Time No Known Allergies Allergy Verified 07/22/24 14:18 Family History Mother Heart disease Father Heart disease Surgical History History of intestinal surgery History of colostomy History of colectomy History of tonsillectomy and adenoidectomy Social History household members: none Smoking Status: Never smoker alcohol intake: never substance use type: does not use ROS ROS Narrative Admission Review of Systems: CONSTITUTIONAL: No weight loss, + fever, chills, weakness or fatigue. HEENT: Eyes: No visual loss, blurred vision, double vision or yellow sclerae. Ears, Nose, Throat: No hearing loss, sneezing, congestion, runny nose or sore throat. SKIN: No rash or itching, lesions, wounds. CARDIOVASCULAR: No chest pain, chest pressure or chest discomfort, palpitations, edema, orthopnea, syncopal events. RESPIRATORY: No shortness of breath, cough or sputum, wheezing, hemoptysis. GASTROINTESTINAL: + Anorexia. No nausea, vomiting or diarrhea, abdominal pain, melena, BRBPR. GENITOURINARY: + BPH with obstructive pathology w/ chronic frequency, Hx retention. No dysuria, urgency. NEUROLOGICAL: + Underlying PD with chronic imbalance issues. No headache, dizziness, syncope, paralysis, ataxia, numbness or tingling in the extremities, focal weakness, change in bowel or bladder control, seizure. MUSCULOSKELETAL: + muscle, back pain, joint pain or stiffness. HEMATOLOGIC: + Chronic anemia, easy bleeding/bruising. LYMPHATICS: No enlarged nodes. No history of splenectomy. PSYCHIATRIC: No history of depression or anxiety. ENDOCRINOLOGIC: No reports of sweating, cold or heat intolerance. No polyuria or polydipsia. ALLERGIES: No history of asthma, hives, eczema or rhinitis. Vital Signs Vital Signs Vital Signs: 03/23/25 01:59 03/23/25 02:04 03/23/25 02:33 Temperature 102.9 F H 102.9 F H Temperature Source Oral Oral Pulse Rate 100 100 Respiratory Rate 28 H 20 H Blood Pressure 161/83 H 161/83 H Blood Pressure Mean 109 109 Pulse Ox 97 100 Oxygen Delivery Method Room Air Room Air Room Air 03/23/25 03:04 03/23/25 04:00 03/23/25 05:00 Temperature 100.7 F H 99.5 F H 99.3 F H Temperature Source Oral Oral Oral Pulse Rate 93 89 81 Respiratory Rate 18 19 H 13 Blood Pressure 160/89 H 113/65 110/66 Blood Pressure Mean 112 81 80 Pulse Ox 97 96 96 Oxygen Delivery Method Room Air Nasal Cannula Physical Exam Narrative Physical Examination: General: Awake, alert, oriented x 3 and cooperative, laying in the bed, fatigued, no acute distress. Skin: Normal color, normal turgor, no icterus, no cyanosis Except occasional stage ecchymoses, abrasion. HEENT: AT/NC, EOMI, PERRLA, mildly dry MM, no carotid bruits or JVD noted. Lungs: CTA bilaterally, moderate effort, mild decrease BL bases, no rales, ronchi or wheezing. Heart: Regular rate and rhythm; no gallop, rub audible. Abdomen: Soft, NTTP, notable hernia, significant hyperactive bowel sounds, decent ostomy output normal in appearance, no obvious distention, no obvious HSM. Extremities: No cyanosis, no clubbing, mild pedal distal becerra edema. Neurological: Patient awake, alert, oriented as noted, cognitive function intact; pupils equally reactive to light and accommodation, cranial nerves grossly normal, moving all 4 extremities, no focal deficits, strength moderately globally decreased secondary to acute presentation complaints. Psychiatric: Affect appears mildly flat, fatigued, no acute evidence of depressive or anxiety feelings. Results Lab / Micro Data 03/23/25 02:27 03/23/25 02:27 Labs: Laboratory Results - last 24 hr 03/23/25 02:27: WBC 10.8, RBC 3.58 L, Hgb 11.4 L, Hct 34.2 L, MCV 95.5 H, MCH 31.8, MCHC 33.3, RDW Std Deviation 55.3 H, RDW Coeff of Ann 15.9 H, Plt Count 308, MPV 10.8, Immature Gran % (Auto) 0.900, Neut % (Auto) 90.5 H, Lymph % (Auto) 3.2 L, Dooly % (Auto) 4.9, Eos % (Auto) 0.0, Baso % (Auto) 0.5, Absolute Neuts (auto) 9.8 H, Absolute Lymphs (auto) 0.35 L, Nucleated RBC % 0, Sodium 137, Potassium 4.0, Chloride 97 L, Carbon Dioxide 26.2, Anion Gap 14, BUN 21 H, Creatinine 1.10, Est GFR (MDRD) Non-Af 69, BUN/Creatinine Ratio 18.7, Glucose 137 H, Lactic Acid 2.0, Calcium 9.2, Total Bilirubin 1.41 H, AST 40 H, ALT 13, Alkaline Phosphatase 118, Total Protein 7.3, Albumin 3.9, Globulin 3.4, Albumin/Globulin Ratio 1.1 03/23/25 03:17: Urine Color Yellow, Urine Clarity Clear, Urine pH 5.0, Ur Specific Ash[place] 1.020, Urine Protein 30 H, Urine Glucose (UA) Normal, Urine Ketones Negative, Urine Occult Blood 250 H, Urine Nitrite Negative, Urine Bilirubin Negative, Urine Urobilinogen 1 H, Ur Leukocyte Esterase 25 H, Urine RBC 0 SEEN, Urine WBC 0 SEEN, Ur Squamous Epith Cells 0 SEEN, Urine Bacteria 1+, Urine Mucus 0 SEEN 03/23/25 03:20: PT 15.8 H, INR 1.2, APTT 30.7 Micro: Microbiology 03/23/25 04:30 Mucosa - Nose SARS-CoV-2, Influenza & RSV (PCR) - Final Imaging Radiology Impression Chest X-Ray 03/23/25 03:00 IMPRESSION: No radiographic evidence of an acute abnormality. Reading Location: [place] [address] Abdomen/Pelvis CT 03/23/25 04:20 IMPRESSION: Minimal left pleural effusion. Passive atelectatic airspace disease in the left lower lobe. Left renal simple cyst measuring 5 cm. Again are noted the changes from prior partial colectomy. 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 Fluid-filled dilated small bowels, possibly presenting ileus and/or developing low-grade partial small bowel obstruction. No evidence of bowel perforation or pneumatosis intestinalis. Moderate amount of fecal residue in the proximal colon, probably constipation. Surgical changes of the anterior abdominal wall. Diffuse thickening and enhancement of the wall of the Dhillon pouch suggestive of proctitis/colitis. No evidence of associated perforation or abscess formation. Mild prostatomegaly. Scattered prostatic calcifications. Diffuse thickening of the wall of the bladder. Chronic bladder outlet obstruction versus cystitis. Scattered simple hepatic cysts are noted with the largest measuring 1.2 cm. Moderate diffuse spondylosis. Reading Location: [place] [address] Assessment & Plan Assessment/Plan (1) Colitis: PLAN: Plan The patient is a 79 y/o M w/ PMHx: BPH without obstructive pathology, Hx of volvulus/intestinal obstruction status post surgical intervention, CKD stage II per GFR trending, HTN, HLD, Parkinson's disease who presents to the [facility] ED on 03/23/2025 with history of onset of significant debility, weakness and fevers with no specific abdominal pain or any recent episodes of nausea and emesis or alteration from ostomy output. #1. Debility, weakness, fever with questionable colitis as well as possible ileus versus developing low-grade partial small bowel obstruction; however, lower suspicion as normal ostomy output, no abdominal pain nor N/V: Will admit to MS, maintain on judicious IVFs, given no nausea or emesis and uncertain if a true partial small bowel obstruction will defer NG tube consideration at this time, strict I&Os, IV pain/anti-emetics PRN, will obtain serial KUB as needed to monitor bowel function, maintain on IV PPI, maintain NPO except medications w/ sip water until assure clinically improving and no bowel obstruction evident, will maintain on IV Zosyn therapy. Procalcitonin requested, full respiratory viral panel requested, enteric and C. difficile assessment from ostomy contents. #2. History sigmoid volvulus with bowel obstruction: Status post previous decompression with small bowel resection and eventual sigmoid colectomy with creation of end colostomy, #3. Chronic Kidney Disease Stage II per GFR trending: Admission BUN/creatinine 21/1.10, GFR 69, baseline renal function primarily 0.8-1.0, will continue to trend function. #4. Hypertension: Will temporally hold hydrochlorothiazide given n.p.o. status, add back once appropriate, PRN hydralazine. #5. Parkinson's disease: Will continue patient home Sinemet and amantadine regimen, maintain on fall precautions. #6. BPH without obstructive pathology: Not on regimen, monitor for any retention. #7. DVT Prophylaxis: Lovenox. #8. CODE status: Patient BRIA is his daughter who is present and living will is currently in place. Discussed CODE status at length including difference between FULL code, DNR-CCA and DNR-CC status. Following discussions about the differences in these status, requested Full Code status. Advanced Care Planning Face to Face Time: 16 minutes. Charges/Coding Visit Charges Inpatient E&M: 61302 Init Hosp L3 Procedures Hospitalists Procedures: 93344 Advncd Care Plan 30 Min
[2025-03-23] MEDS: Piperacil/Tazobactam 4.5 GM in 0.9% Normal Saline (100mL MB+) 100 ML IV (06:28)
[2025-03-23 06:35] LABS: Reflex Lactate? Y
--- NOTE | 2025-03-23 07:15 | PN.HOSP_ITS ---
Reason for Visit Reason for Visit: Diagnoses Noninfective gastroenteritis and colitis, unspecified (03/23/25) Subjective Subjective Patient is a 79-year-old gentleman admitted with fever and generalized weakness admitted with acute colitis/proctitis admitted to regular nursing floor for subsequent manage Objective Data Objective Data Vital Signs: Vital Signs Temp Pulse Resp BP Pulse Ox O2 Del Method 98.7 F 81 16 114/73 99 Room Air 03/23/25 06:41 03/23/25 06:41 03/23/25 06:41 03/23/25 06:41 03/23/25 06:41 03/23/25 06:00 Oxygen Delivery Method Room Air Intake & Output: Intake and Output for Last 24 Hours 03/21/25 03/22/25 03/23/25 23:59 23:59 23:59 Intake Total 500 / 500 Balance 500 / 500 Lab / Micro Data 03/23/25 02:27 03/23/25 02:27 Labs: Laboratory Results - last 24 hr 03/23/25 02:27: WBC 10.8, RBC 3.58 L, Hgb 11.4 L, Hct 34.2 L, MCV 95.5 H, MCH 31.8, MCHC 33.3, RDW Std Deviation 55.3 H, RDW Coeff of Ann 15.9 H, Plt Count 308, MPV 10.8, Immature Gran % (Auto) 0.900, Neut % (Auto) 90.5 H, Lymph % (Auto) 3.2 L, Campbell % (Auto) 4.9, Eos % (Auto) 0.0, Baso % (Auto) 0.5, Absolute Neuts (auto) 9.8 H, Absolute Lymphs (auto) 0.35 L, Nucleated RBC % 0, Sodium 137, Potassium 4.0, Chloride 97 L, Carbon Dioxide 26.2, Anion Gap 14, BUN 21 H, Creatinine 1.10, Est GFR (MDRD) Non-Af 69, BUN/Creatinine Ratio 18.7, Glucose 137 H, Lactic Acid 2.0, Calcium 9.2, Total Bilirubin 1.41 H, AST 40 H, ALT 13, Alkaline Phosphatase 118, Total Protein 7.3, Albumin 3.9, Globulin 3.4, Albumin/Globulin Ratio 1.1 03/23/25 03:17: Urine Color Yellow, Urine Clarity Clear, Urine pH 5.0, Ur Specific Perry 1.020, Urine Protein 30 H, Urine Glucose (UA) Normal, Urine Ketones Negative, Urine Occult Blood 250 H, Urine Nitrite Negative, Urine Bilirubin Negative, Urine Urobilinogen 1 H, Ur Leukocyte Esterase 25 H, Urine RBC 0 SEEN, Urine WBC 0 SEEN, Ur Squamous Epith Cells 0 SEEN, Urine Bacteria 1+, Urine Mucus 0 SEEN 03/23/25 03:20: PT 15.8 H, INR 1.2, APTT 30.7 Micro: Microbiology 03/23/25 04:30 Mucosa - Nose SARS-CoV-2, Influenza & RSV (PCR) - Final Radiography Diagnostic Testing: Radiology Impression Chest X-Ray 03/23/25 03:00 IMPRESSION: No radiographic evidence of an acute abnormality. Reading Location: [place] [address] Abdomen/Pelvis CT 03/23/25 04:20 IMPRESSION: Minimal left pleural effusion. Passive atelectatic airspace disease in the left lower lobe. Left renal simple cyst measuring 5 cm. Again are noted the changes from prior partial colectomy. 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 Fluid-filled dilated small bowels, possibly presenting ileus and/or developing low-grade partial small bowel obstruction. No evidence of bowel perforation or pneumatosis intestinalis. Moderate amount of fecal residue in the proximal colon, probably constipation. Surgical changes of the anterior abdominal wall. Diffuse thickening and enhancement of the wall of the Dhillon pouch suggestive of proctitis/colitis. No evidence of associated perforation or abscess formation. Mild prostatomegaly. Scattered prostatic calcifications. Diffuse thickening of the wall of the bladder. Chronic bladder outlet obstruction versus cystitis. Scattered simple hepatic cysts are noted with the largest measuring 1.2 cm. Moderate diffuse spondylosis. Reading Location: [place] [address] Physical Exam Narrative GENERAL: cooperative HEENT: Atraumatic; normocephalic EYES; Anicteric, Normal Conjunctiva NECK; supple, normal thyroid, RESPIRATORY: Diminished to auscultation CARDIOVASCULAR: Regular S1 S2, GI: soft, normoactive bowel sounds, : No Renal angle tenderness; EXTREMITIES: No edema, no clubbing, MUSCULOSKELETAL: no muscle wasting NEURO: Awake; no lateralizing signs. SKIN: No Rash PSYCH; Flat affect Assessment & Plan Assessment/Plan (1) Colitis: PLAN: Plan Patient is a 79-year-old gentleman admitted with fever and generalized weakness 1. 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 Fluid-filled dilated small bowels, possibly presenting ileus and/or developing low-grade partial small bowel obstruction. No evidence of bowel perforation or pneumatosis intestinalis. Moderate amount of fecal residue in the proximal colon, probably constipation. Surgical changes of the anterior abdominal wall. Diffuse thickening and enhancement of the wall of the Dhillon pouch suggestive of proctitis/colitis. No evidence of associated perforation or abscess formation. Patient was started on Zosyn admitted to regular nursing floor. As part of his management stool for C. difficile as well as enteric pathogen sent 2. Parkinson's disease ? Patient is on carbidopa/levodopa and plan is to continue with home dose 3.Anemia ? Secondary to chronic disorder monitoring H&H and transfuse if patient becomes symptomatic or hemoglobin falls below 7 4. Status post colostomy -on account of sigmoid volvulus for which patient underwent exploratory laparotomy with sigmoid colon resection with subsequent creation of end colostomy 5. Hypertension ? Blood pressure controlled, home medications?HCTZ continued with dose adjustment as needed 6. BPH As per history currently not on any medication 7. Physical deconditioning ? Requested for PT OT eval and social security assessor to assist with discharge planning 8. DVT prophylaxis ? On enoxaparin Time spent in the patient's overall evaluation,decision-making process, review of diagnostic data, adjustment of management, discussion with other providers, nursing nursing and ancillary staff involved in patient's care documentation, 35 Minutes Charges/Coding Visit Charges Inpatient E&M: 41770 PROLNG IP/OBS E/M EA 15 MIN ([id number], [id number])
[2025-03-23 07:18] LABS: Lactic Acid < 1.0 mmol/L (0.0-2.0)
[2025-03-23] MEDS: 0.9% Normal Saline (1000mL) 1,000 ML 75 ML IV (08:44)
[2025-03-23] MEDS: 0.9% Saline Lock 10 ML Syringe IV (08:44)
[2025-03-23] MEDS: Carbidopa/Levodopa 25/100 Tablet PO ×3 (08:45→17:59)
[2025-03-23] MEDS: Aspirin E.C. 81 MG Tablet PO (08:45)
[2025-03-23 10:00] LABS: Procalcitonin 2.06 ng/mL (<=0.10)
[2025-03-23] MEDS: Enoxaparin 40 MG/0.4 ML Syringe SC (10:49)
[2025-03-23] MEDS: Pantoprazole Sodium 40 MG in 0.9% Normal Saline (100mL MB+) 100 ML 330 MG IV ×2 (10:49→21:28)
[2025-03-23] MEDS: Amantadine 100 MG Capsule PO (10:50)
[2025-03-23] MEDS: Piperacil/Tazobactam 3.375 GM in 0.9% Normal Saline (50mL MB+) 50 ML IV ×2 (14:37→22:26)
--- NOTE | 2025-03-23 15:15 | CASEMGMT ---
Social Work- SW met with pt to conduct SDOH assessment. Pt indicates no needs at this time; reports that there was a short period of time that dtr was in the hospital and was unable to transport. SW provided transportation resources in the event that dtr would be unable to transport for any reason again. Pt confirmed HCPOA primary agent as dtr Susy and alternate as dtr Carmella. Pt reports that he is open to SNF if needed prior to return home. SW remains available to follow for therapy recommendations. JOAN Reece
[2025-03-23] MEDS: Senna/Docusate Sodium 1 Tablet 2 TABLET PO (21:28)
[2025-03-23] MEDS: CARBIDOPA/LEVODOPA CR 50/200 Tablet PO (21:29)
[2025-03-23] MEDS: 0.9% Normal Saline (250mL Bag) 250 ML 15 ML IV (22:27)
[2025-03-24] VITALS (51 sets, daily range): BP systolic 48–140; BP diastolic 13–118; PULSE 74–122; RESP 12–41; TEMP 36.4–38.8; O2SAT 90–98; BMI 19.1
[2025-03-24] MEDS: Acetaminophen 325 MG Tablet 650 MG PO (03:00)
[2025-03-24] MEDS: Dicyclomine 10 MG Capsule PO (04:05)
[2025-03-24] MEDS: Morphine 2 MG/ML Syringe IV (04:05)
[2025-03-24] MEDS: Piperacil/Tazobactam 3.375 GM in 0.9% Normal Saline (50mL MB+) 50 ML IV ×3 (05:09→22:44)
[2025-03-24] MEDS: Albuterol 2.5 MG/3 ML VIAL.NEB. INHALATION (05:22)
[2025-03-24 06:07] LABS: Allen Test Positive; Base Excess -14 mmol/L (-2 to +2); Blood Gas Specimen Type ART; Mode Not entered; O2 Delivery Device Cannula; PO2 90 mmHG (75-100); SITE L Radial; SO2 98 % (95-99); Total Carbon Dioxide 9 mmol/L; pCO2 11.1 mmHg (35-45); pH 7.52 (7.35-7.45)
--- NOTE | 2025-03-24 06:18 | CPS ---
[3195] Pt.'s tremors are acting up. RN called for aerosol tx. for pt. Pt. still having tremors.
--- NOTE | 2025-03-24 07:18 | PN.HOSP_ITS ---
Reason for Visit Reason for Visit: Diagnoses Noninfective gastroenteritis and colitis, unspecified (03/23/25) Subjective Subjective Patient PCR for C. difficile was positive however antigen was negative. Patient had complained of significant abdominal pain and did receive morphine around 4 AM in the morning. Did get notification from patient's nurse around 8 AM this morning about patient being significantly lethargic and unarousable. Did examine patient stand wrapped did not elicit any much response. Patient was found to be mottled. Blood glucose level was in the 50s. An order was given for patient to receive Narcan as well as dextrose. Patient was found to have flaccid paralysis involving the right extremity. Stroke alert was called patient was transferred down to the radiology department. Imaging studies reviewed by myself did not show the presence of any ischemia nor bleed. ABGs obtained demonstrated significant metabolic acidosis. An order was given for patient to be transferred to the intensive care unit for subsequent management. Patient level of sensorium had improved and she was responding to simple questions prior to patient being transferred to the ICU Objective Data Objective Data Vital Signs: Vital Signs Temp Pulse Resp BP Pulse Ox O2 Del Method O2 Flow Rate 98.6 F 75 16 138/70 H 94 Nasal Cannula 2 03/24/25 02:49 03/24/25 02:49 03/24/25 02:49 03/24/25 02:49 03/24/25 02:49 03/24/25 06:00 03/24/25 06:00 Oxygen Flow Rate (L/min) 2 Oxygen Delivery Method Nasal Cannula Weight: 60.8 kg Body Mass Index (BMI) 19.1 Intake & Output: Intake and Output for Last 24 Hours 03/22/25 03/23/25 03/24/25 23:59 23:59 23:59 Intake Total 1465.00 / 1465.00 435 / 435 Output Total 350 / 350 225 / 225 Balance 1115.00 / 1115.00 210 / 210 Lab / Micro Data 03/24/25 06:06 03/24/25 06:06 Labs: Laboratory Results - last 24 hr 03/23/25 02:27: Procalcitonin 2.06 H 03/23/25 06:30: Lactic Acid < 1.0 Micro: Microbiology 03/23/25 08:35 Stool Enteric Bacteriology - Final 03/23/25 08:35 Stool C. difficile GDH Antigen & Toxins - Final 03/23/25 08:35 Stool Clostridioides difficile (PCR) - Final 03/23/25 04:30 Mucosa - Nose SARS-CoV-2, Influenza & RSV (PCR) - Final ABG Data ABG results: ABG 03/24/25 06:02 Specimen Type ART Sample Site L Radial pH 7.52 H Bicarbonate Actual 9.0 L Total CO2 9 Base Excess -14 L O2 Saturation 98 O2 % 4.0 ABG pCO2 11.1 L* ABG pO2 90 Marco Antonio Test Positive O2 Delivery Device Cannula Vent Mode Not entered Crit Call To/Read Back Yes Blood Gas Notified Whom White Blood Gas Notified Time 06:04:07 Physical Exam Narrative GENERAL: Lethargic HEENT: Atraumatic; normocephalic EYES; Anicteric, Normal Conjunctiva NECK; supple, normal thyroid, RESPIRATORY: Diminished to auscultation CARDIOVASCULAR: Regular S1 S2, GI: soft, normoactive bowel sounds, : No Renal angle tenderness; EXTREMITIES: No edema, no clubbing, MUSCULOSKELETAL: no muscle wasting NEURO: Awake; no lateralizing signs. SKIN: Mottling of lower extremities PSYCH; Flat affect Assessment & Plan Assessment/Plan (1) Colitis: PLAN: Plan Patient is a 79-year-old gentleman admitted with fever and generalized weakness 1. 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 Fluid-filled dilated small bowels, possibly presenting ileus and/or developing low-grade partial small bowel obstruction. No evidence of bowel perforation or pneumatosis intestinalis. Moderate amount of fecal residue in the proximal colon, probably constipation. Surgical changes of the anterior abdominal wall. Diffuse thickening and enhancement of the wall of the Dhillon pouch suggestive of proctitis/colitis. No evidence of associated perforation or abscess formation. Patient was started on Zosyn admitted to regular nursing floor. As part of his management stool for C. difficile as well as enteric pathogen sent ? 03/24/2025;Patient PCR for C. difficile was positive however antigen was negative. Repeated CT of the abdomen given patient change in clinical condition to rule out ischemic bowel given the impaired kidney function and metabolic acidosis 2. Acute metabolic encephalopathy ? Secondary to acute kidney injury with severe metabolic acidosis. Patient stroke alert was called, initial imaging studies did not reveal presence of ischemia nor bleed. Patient was also seen in consultation by [facility] recommended no further workup unless patient symptoms recurred 3. Acute kidney injury ? 03/24/2025; Patient creatinine on admission was 1.10, creatinine had gone up to 1.55 patient started on saline ordered renal ultrasound ordered 4. Metabolic acidosis ? With elevated anion gap attributed to patient acute kidney injury patient is on IV fluid as well as bicarb drip transferred to the intensive care unit. Repeat ABGs ordered for noon. 5. Parkinson's disease ? Patient is on carbidopa/levodopa and plan is to continue with home dose 6. Anemia ? Secondary to chronic disorder monitoring H&H and transfuse if patient becomes symptomatic or hemoglobin falls below 7 7. 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 Hypertension ? Blood pressure controlled, home medications?HCTZ continued with dose adjustment as needed 9. BPH As per history currently not on any medication 10. Physical deconditioning ? Requested for PT OT eval and social worker health services to assist with discharge planning 11. DVT prophylaxis ? On enoxaparin 12. 03/24/2025?0955 ? I did call from patient's nurse regarding patient becoming encephalopathic 1 more time. Had a discussion with patient's POA her daughter regarding patient current clinical status did explain patient needed to be intubated to protect his airway in order to optimize care while trying to find etiology of patient clinical deterioration. Prior to patient being intubated had ordered CT of the abdomen with contrast to rule out ischemic bowel 13. 03/24/2025; 1055 ;perforated bowel ? We did obtain a call from radiology regarding presence of air under the diaphragm consistent with perforated bowel and patient significant pain. Consult was placed to general surgery Case discussed with Dr. Razo Critical time spent in the patient's overall evaluation,decision-making process, review of diagnostic data, adjustment of management, discussion with other providers, nursing nursing and ancillary staff involved in patient's care documentation, 75 Minutes Advance planning; had a discussion with patient's 2 daughters listed in the computer the patient to notify her and the POA. Went over patient clinical condition and the prognosis. This was done prior to patient being intubated. Did explain the various scenario. Patient's family elected for patient to remain full code. Time spent on discussion 15 minutes. Charges/Coding Multi Select Codes Hospitalists' Procedures Procedures: 07384 Insert Emergency Airway, 35232 Critical Care 1st Hr, 07630 Critical Care Addl 30 Min and 29851 Advncd Care Plan addl 30 Min
[2025-03-24 07:19] LABS: Absolute Lymphocyte Count 0.28 X10^3/uL (0.83-4.51); Basophil# 0.05 X10^3/uL; Basophil% 2.1 % (0-1); Hematocrit 40.9 % (40-54); Hemoglobin 12.9 g/dL (13.0-16.5); Lymphocyte # 0.28 X10^3/ul (0.83-4.51); Lymphocyte % 11.8 % (19-41); Mean Corp Hgb Conc 31.5 g/dL (32-36); Mean Corpuscular Hgb 32.3 pg (27.0-32.0); Mean Corpuscular Volume 102.5 fL (80-94); Mean Platelet Vol. 11.4 fl (6.2-12.0); Monocyte# 0.05 X10^3/uL; Monocyte% 2.1 % (0-10); NRBC Flagged by Analyzer 0.8 % (0-5); Neutrophil # 1.98 X10^3/uL (2.7-7.7); Neutrophil % 83.6 % (47-70); POSITIVE DIFFERENTIAL YES; POSITIVE MORPHOLOGY YES; Platelet Count 238 K/mm3 (150-450); RBC Distribution Width CV 16.3 % (11.6-14.6); RBC Distribution Width SD 62.3 fl (35.1-43.9); Red Blood Count 3.99 M/mm3 (4.6-6.2); White Blood Count 2.4 K/mm3 (4.4-11.0)
[2025-03-24 07:47] LABS: Magnesium 2.1 mg/dL (1.5-2.2); Phosphorus 5.4 mg/dL (2.7-4.5)
[2025-03-24] MEDS: Naloxone 0.4 MG/ML Syringe IV (07:58)
[2025-03-24] MEDS: Dextrose 10%-Water 250 ML IV.SOLN. IV (07:58)
[2025-03-24 08:02] LABS: Anion Gap 26 (5-15); BUN 32 mg/dL (4-19); BUN/Creat Ratio 20.4 RATIO (10-20); Calcium,Total 8.9 mg/dL (7.6-11.0); Carbon Dioxide 13.8 mmol/L (21.0-32.0); Chloride 97 mmol/L (98-108); Creatinine, Serum 1.55 mg/dL (0.70-1.20); EST Glomerular Filtration Rate 46 (>60); Estimated Creatinine Clearance 33.78 ml/min (50-250); Glucose 131 mg/dL (70-99); Potassium 3.9 mmol/L (3.3-5.1); Sodium Level 137 mmol/L (133-145)
--- NOTE | 2025-03-24 08:04 | NURSING ---
CPS notified of stat ABG orders.
--- NOTE | 2025-03-24 08:08 | NURSING ---
house worker general updated on patient
--- NOTE | 2025-03-24 08:10 | RAD_ITS ---
PROCEDURE: CHEST 1 VIEW (PORTABLE) 03/24/2025 REASON FOR EXAM: HYPOXIA TECHNIQUE: Frontal view of the chest. COMPARISON: Two-view chest, 03/23/2025. FINDINGS: There is bibasilar atelectasis. There are no pleural effusions evident. There is noted free air under the right hemidiaphragm of indeterminate clinical significance. There is cardiomegaly. There is calcific vascular disease of the thoracic aorta. The upper abdominal bowel gas pattern appears nonobstructive. There are no significant bony abnormalities evident. RAD/Chest 1 View (Portable) IMPRESSION: The patient has free air under the right hemidiaphragm. I spoke with the nurse in the ICU (03/24/2025 at 10:45 a.m.) and the patient has not had any intra-abdominal procedures and this is consistent with a perforated abdominal viscus. Reading Location: [id number]
--- NOTE | 2025-03-24 08:17 | NURSING ---
0800- primary RN on unit states going to get Dr. Headley on the unit. states patient looks unwell. this nurse into room. pt noted to be cold, clammy unresponsive. OT obtained of 56. D10W obtained via override-pharmacy was called as unable to pull D50. 0804 D10W started wide open. Primary RN pulling Narcan and Dr. Headley to the room. 2nd IV started on rt wrist and pt place on lifepak monitor. 08:12 Stroke team called. please see documentation.
[2025-03-24 08:21] LABS: Atypical Lymphocyte 1+ %; Differential Indicated SCAN CRITERIA MET
--- NOTE | 2025-03-24 08:22 | CT_ITS ---
PROCEDURE: STROKE CTA HEAD AND NECK W/CON 03/24/2025 REASON FOR EXAM: NEURO SYMPTOMS TECHNIQUE: CTA imaging of the head and neck from the aortic arch to the skull vertex with out contrast and with intravenous contrast. Multiplanar and multisequence images were obtained. CONTRAST: Isovue 370 VOLUME: 100 mL One or more dose reduction techniques were used (e.g., Automated exposure control, adjustment of the mA and/or kV according to patient size, use of iterative reconstruction technique). RADIATION DOSE SUMMARY: CTDlvol: 43.5 mGy DLP: 558.87 mGycm COMPARISON: CT head without contrast, 03/24/2025 at 8:20 a.m. FINDINGS: Aortic Arch: Mild calcific vascular disease. Brachiocephalic and Subclavians: Normal configuration. No significant plaque. RIGHT Carotid: Right CCA: No significant plaque. Right ICA: There is non stenotic calcified plaque in the cavernous and intracranial portions. Maximum stenosis (NASCET): There is no significant stenosis. Right ECA: There is calcified plaque at the origin. LEFT Carotid: Left CCA: There is non stenotic calcified plaque at the carotid bulb. Left ICA: There is non stenotic calcified plaque at the origin. There is a focus of non stenotic calcified plaque proximally 2 cm distal to the origin. There is nonstenotic calcified plaque in the cavernous and intracranial portions. Maximum stenosis (NASCET): There is no significant stenosis. Left ECA: There is calcified plaque of the origin. Vertebrals: Right dominant RIGHT Vertebral: There is significant calcified plaque of the origin. There is nonobstructive calcified plaque of the intracranial portion. LEFT Vertebral: There is nonobstructive calcified plaque of the intracranial portion. Aneurysm or avm: None identified. Anterior cerebral arteries: Normal. Middle cerebral arteries: Normal. Basilar artery: Normal. Posterior cerebral arteries: None identified. Other major branches of the posterior circulation: Normal. Major venous structures: Normal. Other findings: There is fluid within the thoracic esophagus, consistent with gastroesophageal esophageal dysmotility. There is a mucous retention cyst in the right sphenoid sinus. CT/STROKE CTA Head AND Neck W/Con IMPRESSION: 1. No evidence of significant stenosis of either internal carotid artery. 2. No evidence of intracranial vascular stenosis or occlusion. 3. No evidence of intracranial aneurysms or vascular malformations. 4. Other findings as noted. Reading Location: [id number]
--- NOTE | 2025-03-24 08:22 | CT_ITS ---
PROCEDURE: STROKE BRAIN/HEAD WITHOUT CONT 03/24/2025 REASON FOR EXAM: NEURO SYMPTOMS TECHNIQUE: Contiguous axial scans of 3.75 mm slice thicknesses with sagittal and coronal reconstruction images. One or more dose reduction techniques were utilized (e.g., automated exposure control, adjustment of mA and/or kv according to patient size, use of iterative reconstruction technique). RADIATION DOSE SUMMARY: DLP: 829.85 mGycm COMPARISON: CT brain dated 12/03/2023. FINDINGS: Cerebrum: No intraparenchymal hemorrhage. A small left sub sylvian area of hypoattenuation is redemonstrated.. No masses, mass effect or midline shift. Central white matter and subcortical diffuse hypoattenuation.. Ventricles and cisterns: Stable dilatation of the ventricles. Age-appropriate cerebral cortical atrophy. Prominent cisterns. Extra-axial fluid: Unremarkable. Posterior fossa: Unremarkable cerebellum. No abnormalities involving the brainstem. Paranasal sinuses: Normal. Vasculature: Unremarkable. Mastoid air cells: unremarkable. Calvarium: Unremarkable. Soft tissues: Unremarkable. . CT/STROKE Brain/Head without Cont IMPRESSION: 1. Age-related chronic microvascular ischemic changes. 2. Age-appropriate senescent changes. 3. No evidence of acute intracranial hemorrhage or ischemic infarction. Reading Location: [place] [id number]
--- NOTE | 2025-03-24 08:26 | NURSING ---
pt found unresponsive, mottled dr walker on floor came to bedside. glucose 58 dextrose given, narcan given. stroke alert called. pt taken to ct scan.
--- NOTE | 2025-03-24 08:28 | NURSING ---
Daughter Jeane updated and requested she comes to the hospital.
[2025-03-24] MEDS: 0.9% Normal Saline (1000mL) 1,000 ML 150 ML IV ×3 (09:21→21:49)
[2025-03-24] MEDS: Sodium Bicarbonate 50 MEQ in Dextrose 5%-Water (1000mL Bag) 1,000 ML 100 MEQ IV ×2 (09:45→20:09)
--- NOTE | 2025-03-24 09:45 | NURSING ---
0942: Dr. Headley called to bedside- patients BP starting to drop and RR dropping. Patient less responsive. Glucose 82 0945: Dr. Headley and RT at bedside preparing for emergent intubation. Versed 2mg IV given at 0954, Etomidate 20mg IV given at 0955. 0956 ETT in with b/l equal lung sounds and positive color change. However ETT balloon would not stay inflated. Dr. Headley called back to bedside to exchange ETT. Versed 2mg IV given at 10:07 Etomidate 20mg IV given at 10:09. Patient successfully intubated at 10:11 with b/l equal lung sounds and positive color change. 10:15 BP unstable and dropping with SBP in the 60s- Dr. Headley notified and orders given to start levophed.
[2025-03-24] MEDS: Midazolam 2 MG/2 ML Syringe IV ×2 (09:54→10:07)
[2025-03-24] MEDS: Etomidate 20 MG/10 ML Vial IV ×2 (09:55→10:09)
--- NOTE | 2025-03-24 10:15 | RAD_ITS ---
PROCEDURE: CHEST 1 VIEW (PORTABLE) 03/24/2025 REASON FOR EXAM: INTUBATION TECHNIQUE: Frontal view of the chest. COMPARISON: Chest x-ray of 03/24/2025. RAD/Chest 1 View (Portable) IMPRESSION: Endotracheal tube in place, with tip approximately 3 cm above the emiliano. The cardiomediastinal silhouette is within the normal range, and unchanged. Lungs appear clear of acute disease. No pleural effusion or pneumothorax is noted. No acute osseous change is evident. Reading Location: [id number]
--- NOTE | 2025-03-24 10:15 | EDS_ITS ---
Procedure Report Date of Procedure: 03/24/25 EndoTracheal intubation ? Decision was made to intubate patient given his clinical deterioration and inability to protect his airway. ABG which had been obtained 2 hours prior did show significant metabolic acidosis. Had a discussion with patient's daughter to obtain verbal consent. Patient was intubated using direct visualization with the glide a scope. Patient was premedicated with 2 mg of Versed and 10 mg of etomidate. Tube placement was verified with end-tidal CO2 color change. R espiratory however noted that patient balloon was leaking. Additional 2 mg of Versed and 10 mg of etomidate given patient ET tube taken out and a new one placed. An order was given for a chest x-ray to be obtained. Also wrote for initial vent orders and consultation placed to the critical care team Code; 56003
--- NOTE | 2025-03-24 10:25 | CASEMGMT ---
Social Work Stroke alert called. Pt now in ICU and to be intubated. SW met with pt dgt Carmella and emotional support provided. Pt lives alone and independently. Carmella lives locally and assists pt as needed. Pt has three other children that live out of state ([place], [place], [place]) and a sister in [place]. Carmella has reached out to family members who are working on arrangements to come to hospital to see pt. Pt does have a living will and HCPOA on file at [facility]. HCPOA names pt dgt Fatimah Gillespie as primary and dgjohanne Weir as secondary decision maker. SW to continue to follow and is available for support as needed. JOAN Sanchez
[2025-03-24] MEDS: Norepinephrine 8 MG in 0.9% Normal Saline (250mL Bag) 242 ML 9.4 MG CONT INF (10:30)
--- NOTE | 2025-03-24 10:35 | CPS ---
Pt intubated at [address] Headley. ETT 8.0, secured at the 25cm arsalan at the lip. Cuff inflated. Positive color change on colormetric co2. Floor Space Allocator ballon became deflated, air add with no change. Able to bag pt with no resistance. Dr Headley exchanged ETT tube due to ferryboat pilot balloon losing pressure. Patient intubated at 1011 with a ETT 7.5 , secured at the 24 cm arsalan at the lip. Positive color change, ferryboat pilot balloon inflated and holding pressure. Pt placed on vent with adequate volumes achieved. Xray ordered.
[2025-03-24] MEDS: Ipratropium/Albuterol Sulfate 3 ML AMPUL.NEB INHALATION (11:01)
[2025-03-24 11:10] LABS: Bedside Glucose 82 mg/dL (74-106)
[2025-03-24] MEDS: Chlorhexidine 15 ML PO ×2 (11:22→21:29)
[2025-03-24 11:54] LABS: Allen Test Positive; Base Excess -19 mmol/L (-2 to +2); Bicarbonate 8.2 mmol/L (22-26); Blood Gas Specimen Type ART; Mode AC; O2 Delivery Device Adult Vent; PEEP 5; PO2 179 mmHG (75-100); RR 12; SITE R Radial; SO2 99 % (95-99); Total Carbon Dioxide 9 mmol/L; pCO2 19.6 mmHg (35-45); pH 7.23 (7.35-7.45)
--- NOTE | 2025-03-24 12:15 | CON.PCM.CC_ITS ---
HPI Consult Data Date of Consult: 03/24/25 HPI Narrative HPI Narrative: ANTHONY VIDES, is a 79 M who presents [facility] Medical History Bilateral inguinal hernia Incisional hernia of anterior abdominal wall without obstruction or gangrene History of intestinal obstruction Wound dehiscence, surgical BPH (benign prostatic hyperplasia) Debility Hypertension CKD (chronic kidney disease), stage II Parkinson disease Home Medications ?Medication ?Instructions ?Recorded ?Last Taken ?Type amantadine HCl 100 mg capsule 100 mg PO DAILY hill 12/24/23 08:15 History food supplemt, lactose-reduced 120 ml PO 4X/DAY nutrit ion #237 mL 12/24/23 12/24/23 13:05 Rx 0.08 gram-1.5 kcal/mL oral liquid (Ensure Plus High Protein) carbidopa 25 mg-levodopa 100 mg 2 tab PO 0800 #0 tabs 01/16/24 Unknown Rx tablet carboxymethylcellulose sodium 0.5 1 drp ophthalmic (ey e) Q6H PRN PRN 01/16/24 Unknown Rx % eye drops (Refresh Tears) DRY EYES #0 mL sennosides 8.6 mg-docusate sodium 2 tab PO BID #0 tabs 01/16/24 Unknown Rx 50 mg tablet (Stool Softener-Stimulant Laxative) sodium chloride 0.65 % nasal spray 1 spray NASAL BID P RN PRN NASAL 01/16/24 Unknown Rx aerosol (Deep Sea Nasal) DRYNESS #0 mL hydrochlorothiazide 25 mg tablet 12.5 mg PO DAILY 0 03/13 Unknown History aspirin 81 mg tablet,delayed 81 mg PO DAILY 11/29/24 U nknown History release (Adult Aspirin Regimen) carbidopa 25 mg-levodopa 100 mg 2 tab PO TID 11/29/24 Unknown History tablet Allergy/AdvReac Type Severity Reaction Status Date / Time No Known Allergies Allergy Verified 07/22/24 14:18 Family History Mother Heart disease Father Heart disease Surgical History History of intestinal surgery History of colostomy History of colectomy History of tonsillectomy and adenoidectomy Social History household members: none Smoking Status: Never smoker alcohol intake: never substance use type: does not use Objective Data Objective Data Vital Signs: Vital Signs Last response 3 Temperature 38.6 C H 03/24/25 11:15 Temperature Source Core 03/24/25 11:15 Pulse Rate 109 H 03/24/25 11:30 Pulse Strength Normal (2+) 03/23/25 10:48 Respiratory Rate 40 H 03/24/25 11:01 Respiratory Effort Accessory Muscle Use 03/24/25 08:23 Respiratory Depth Shallow 03/24/25 06:00 Respiratory Pattern Tachypnea 03/24/25 11:01 Blood Pressure 71/44 L 03/24/25 11:30 Blood Pressure Mean 53 03/24/25 11:30 Blood Pressure Source Monitor 03/24/25 11:30 Blood Pressure Position Supine 03/24/25 11:15 Blood Pressure Location Left Arm 03/24/25 11:15 Pulse Ox 98 03/24/25 08:45 Oxygen Delivery Method Mechanical Ventilator 03/24/25 11:00 Oxygen Flow Rate (L/min) 3 03/24/25 08:45 Fraction of Inspired Oxygen (FIO2) 50 03/24/25 11:00 I&O: I&O Last 24 Hours 3 03/23/25 03/24/25 03/24/25 23:59 11:59 23:59 Intake Total 765.00 / 1465.00 501.45 / 501.45 Output Total 350 / 350 225 / 225 Balance 415.00 / 1115.00 276.45 / 276.45 I&O: Total Stay 3 03/23/25 01:58 thru 03/24/25 11:30 Intake Total 1966.45 Output Total 575 Balance 1391.45 Current Meds Ordered / Administered: Current meds ordered / Administered 3 Generic Name Dose Route Start Last Admin Trade Name Freq PRN Reason Stop Dose Admin Acetaminophen 650 mg 03/23/25 08:19 03/24/25 03:00 Acetaminophen 325 Mg Tablet PO 650 mg Q4H PRN PRN Administration Fever, pain 1-10/10 Acetaminophen 650 mg 03/24/25 11:18 Acetaminophen 650 Mg Suppository RC Q4H PRN PRN FEVER Al Hydroxide/Mg Hydroxide 30 ml 03/23/25 08:19 Mag Hydrox/Al Hydrox/Simeth 30 Ml Udc PO Q6H PRN PRN Gastric Burning Albuterol Sulfate 2.5 mg 03/23/25 08:19 03/24/25 05:22 Albuterol 2.5 Mg/3 Ml Vial.Neb. INHALATION 2.5 mg Q2H PRN PRN Administration Dyspnea, wheezing Albuterol/Ipratropium 3 ml 03/24/25 10:15 03/24/25 11:01 Ipratropium/Albuterol Sulfate 3 Ml Ampul.Neb INHALATION 3 ml Q4H.RT GAURI Administration Amantadine HCl 100 mg 03/23/25 10:00 03/24/25 09:16 Amantadine 100 Mg Capsule PO Not Given DAILY GAURI Artificial Tears 1 drp 03/23/25 08:25 Carboxymethylcellulose Sodium 1 Drp Drops OPHTHALMIC Q6H PRN PRN DRY EYES Aspirin 81 mg 03/23/25 08:19 03/24/25 09:16 Aspirin E.C. 81 Mg Tablet PO Not Given BREAKFAST GAURI Carbidopa/Levodopa 2 tablet 03/23/25 08:19 03/24/25 09:16 Carbidopa/Levodopa 25/100 Tablet PO Not Given 0800 GAURI Carbidopa/Levodopa 1 tablet 03/23/25 22:00 03/23/25 21:29 Carbidopa/Levodopa Cr 50/200 Tablet PO 1 tablet QHS GAURI Administration Carbidopa/Levodopa 2 tablet 03/23/25 16:00 03/24/25 10:36 Carbidopa/Levodopa 25/100 Tablet PO Not Given TID@1100,1600,1800 GAURI Chlorhexidine Gluconate 15 ml 03/24/25 10:00 03/24/25 11:22 Chlorhexidine 15 Ml PO 15 ml BID GAURI Administration Dicyclomine HCl 10 mg 03/24/25 03:52 03/24/25 04:05 Dicyclomine 10 Mg Capsule PO 10 mg TID PRN PRN Administration bloating/abd cramping Enoxaparin Sodium 40 mg 03/23/25 10:00 03/23/25 10:49 Enoxaparin 40 Mg/0.4 Ml Syringe SC 40 mg DAILY GAURI Administration Guaifenesin 20 ml 03/23/25 08:19 Guaifenesin 10 Ml Udc (200mg/10ml) PO Q4H PRN PRN COUGH Hydralazine HCl 10 mg 03/23/25 08:19 Hydralazine 20 Mg/Ml Vial IV Q4H PRN PRN SBP > 160 Protocol Sodium Chloride 250 mls @ 15 mls/hr 03/23/25 08:17 IV .[id number] PRN Saline Flush Sodium Chloride 250 mls @ 15 mls/hr 03/23/25 08:17 03/23/25 22:27 IV 0 mls/hr .[id number] PRN Infusion Additional IVPB Infusion Pantoprazole Sodium 40 mg/ 100 mls @ 330 mls/hr 03/23/25 10:00 03/23/25 21:47 Sodium Chloride IV Infused Q12 GAURI Infusion Piperacillin Sod/Tazobactam 50 mls @ 12.5 mls/hr 03/23/25 14:00 03/24/25 09:17 Sod 3.375 gm/ Sodium Chloride IV Infused Q8 GAURI Infusion Sodium Chloride 1,000 mls @ 150 mls/hr 03/24/25 08:40 03/24/25 09:21 IV 150 mls/hr .Q6H40M GAURI Administration Sodium Bicarbonate 50 meq/ 1,050 mls @ 100 mls/hr 03/24/25 09:45 03/24/25 09:45 Dextrose IV 100 mls/hr .[id number] GAURI Administration Dexmedetomidine HCl 400 mcg/ 100 mls @ 7.6 mls/hr 03/24/25 10:15 Sodium Chloride CONT INF .[id number] GAURI Protocol 0.5 MCG/KG/HR Fentanyl 100 mls @ 2.5 mls/hr 03/24/25 10:15 03/24/25 11:19 CONT INF Not Given UD GAURI Protocol 25 MCG/HR Norepinephrine Bitartrate 8 mg 250 mls @ 9.375 mls/hr 03/24/25 10:15 03/24/25 11:30 / Sodium Chloride CONT INF 10 mcg/min .[id number] GAURI 18.8 mls/hr Titration Protocol 5 MCG/MIN Melatonin 5 mg 03/23/25 08:19 Melatonin 10 Mg Tablet PO QHS PRN Insomnia Ondansetron HCl 4 mg 03/23/25 08:19 Ondansetron 4 Mg/2 Ml Vial IV Q8H PRN PRN NAUSEA/VOMITING Prochlorperazine Edisylate 5 mg 03/23/25 08:19 Prochlorperazine 10 Mg/2 Ml Vial IV Q4H PRN PRN Breakthrough nausea/vomiting Senna/Docusate Sodium 2 tablet 03/23/25 10:00 03/24/25 09:16 Senna/Docusate Sodium 1 Tablet PO Not Given BID GAURI Sodium Chloride 10 - 40 ml 03/23/25 08:17 03/23/25 08:44 0.9% Saline Lock 10 Ml Syringe IV 10 ml UD PRN Administration SALINE FLUSH Sodium Chloride 1 spray 03/23/25 08:19 Sodium Chloride 0.65% 1 [place].Btl NASAL BID PRN PRN NASAL DRYNESS Sodium Chloride 5 ml 03/24/25 10:12 Sodium Cl For Inhalation 15 Ml Vial.Neb. INHALATION Q5M PRN Suctioning Lab / Micro Data 03/24/25 06:06 03/24/25 06:06 Labs: Laboratory Results - last 24 hr 03/24/25 06:06: WBC 2.4 L, RBC 3.99 L, Hgb 12.9 L, Hct 40.9, MCV 102.5 H D, MCH 32.3 H, MCHC 31.5 L D, RDW Std Deviation 62.3 H, RDW Coeff of Ann 16.3 H, Plt Count 238, MPV 11.4, Immature Gran % (Auto) 0.400, Neut % (Auto) 83.6 H, Lymph % (Auto) 11.8 L, [place] % (Auto) 2.1, Eos % (Auto) 0.0, Baso % (Auto) 2.1 H, Absolute Neuts (auto) 2.0, Absolute Lymphs (auto) 0.28 L, Nucleated RBC % 0.8, Differential Comment COMMENT, Atypical Lymphocytes 1+, Sodium 137, Potassium 3.9, Chloride 97 L, Carbon Dioxide 13.8 L, Anion Gap 26 H, BUN 32 H, Creatinine 1.55 H, Estim Creat Clear Calc 33.78 L, Est GFR (MDRD) Non-Af 46 L, B UN/Creatinine Ratio 20.4 H, Glucose 131 H, Calcium 8.9, Phosphorus 5.4 H, Magnesium 2.1 03/24/25 09:49: POC Glucose 82 Micro: Microbiology 03/23/25 08:35 Stool Enteric Bacteriology - Final 03/23/25 08:35 Stool C. difficile GDH Antigen & Toxins - Final 03/23/25 08:35 Stool Clostridioides difficile (PCR) - Final ABG Data ABG results: ABG 03/24/25 03/24/25 06:02 11:48 Specimen Type ART ART Sample Site L Radial R Radial pH 7.52 H 7.23 L Bicarbonate Actual 9.0 L 8.2 L Total CO2 9 9 Base Excess -14 L -19 L O2 Saturation 98 99 O2 % 4.0 50.0 ABG pCO2 11.1 L* 19.6 L ABG pO2 90 179 H Marco Antonio Test Positive Positive Respiration Rate 12 O2 Delivery Device Cannula Adult Vent Vent Mode Not entered AC Tidal Volume 400.0 POC PEEP 5 Crit Call To/Read Back Yes Blood Gas Notified Whom White Blood Gas Notified Time 06:04:07 Imaging Radiology Impression Chest X-Ray 03/24/25 08:10 IMPRESSION: The patient has free air under the right hemidiaphragm. I spoke with the nurse in the ICU (03/24/2025 at 10:45 a.m.) and the patient has not had any intra-abdominal procedures and this is consistent with a perforated abdominal viscus. Reading Location: [facility] Brain CT 03/24/25 08:22 IMPRESSION: 1. Age-related chronic microvascular ischemic changes. 2. Age-appropriate senescent changes. 3. No evidence of acute intracranial hemorrhage or ischemic infarction. Reading Location: [id number] Head/Neck CTA 03/24/25 08:22 IMPRESSION: 1. No evidence of significant stenosis of either internal carotid artery. 2. No evidence of intracranial vascular stenosis or occlusion. 3. No evidence of intracranial aneurysms or vascular malformations. 4. Other findings as noted. Reading Location: [facility] Chest X-Ray 03/24/25 10:15 IMPRESSION: Endotracheal tube in place, with tip approximately 3 cm above the emiliano. The cardiomediastinal silhouette is within the normal range, and unchanged. Lungs appear clear of acute disease. No pleural effusion or pneumothorax is noted. No acute osseous change is evident. Reading Location: [id number] Assessment and Plan . Assessment and plan: HPI 79 yo chronically ill man w/ complicated recent GI/surgical history admitted 03/23/25 w/ fever and FTT at home. Noted fever and hypoactivity in the ED. He received IVF and underwent CT A/P, revealing fluid-filled and dilated SB loops, as well as wall thickening of the rectal Alicia pouch. 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 Lactic acid on presentation WNL. He was admitted to the medical floor for further evaluation and treatment. CX pending. CDiff PCR is (+). He has received empiric IV ABX. Overnight he developed severe abdominal pain and altered LOC. He has undergone urgent CT brain which is unremarkable. He has required TX to the ICU and subsequent O-T intubation and MV support. In addition, he has developed anuria and severe hypotension requiring vasopressor support. Lab reveals a severe AGMA w/ acidemia despite MV support. F/U pCXR reveals free air beneath the right H/D. On my arrival, he is obtunded. Very high WOB w/ MV 17-18 LPM and significant air hunger. Minimal UOP. CVC and arterial catheter placement underway. Surgical evaluation is in process. EXAM GEN obtunded, air hungry VS as above HEENT MONIQUE NECK supple COR RRR, tachy CHEST CTA ABD scaphoid, LLQ stoma w/ output EXT cool SKIN w/d RAFAEL obtunded ASSESSMENT 1. Acute respiratory failure requiring MV support 2. Overwhelming septic shock w/ severe acidosis 3. Encephalopathy / stupor 4. MANPREET w/ oliguria 5. Pneumoperitoneum, in the setting of complicated recent GI/surgical history 6. C.diff - (?) infection v colonization 7. Leukopenia 8. (?) underlying Parkinson's disease TREATMENT PLAN -MV support - reviewed and adjusted at -f/u ABG -sedation / analgesia as needed -aggressive volume expansion - add albumin to current crystalloid -IV hydrocortisone for shock -check f/u LA - likely markedly elevated now -surgical evaluation ongoing -IV ABX - add IV metronidazole -hold all A/C for now -prognosis appears grave currently Critical Care Time: 60 minutes The entirety of this encounter was done via Telemedicine
--- NOTE | 2025-03-24 12:22 | RAD_ITS ---
PROCEDURE: CHEST 1 VIEW (PORTABLE) 03/24/2025 REASON FOR EXAM: CENTRAL LINE PLACEMENT TECHNIQUE: Frontal view of the chest. COMPARISON: Portable chest, 03/24/2025 at 10:17 a.m. FINDINGS: There is an endotracheal tube with the tip 3.2 cm above the emiliano. The nasogastric tube tip and side port are in the area of the stomach. There is a new left subclavian deep line with the tip at the junction of the SVC and RA. There is bilateral perihilar hilar atelectasis. There is no lobar consolidation or pleural effusion. There is cardiomegaly. There is calcific vascular disease of the thoracic aorta. RAD/Chest 1 View (Portable) IMPRESSION: Endotracheal tube, nasogastric tube and left subclavian deep line appear in goo d position. Other findings as noted. Reading Location: [id number]
[2025-03-24] MEDS: Pantoprazole Sodium 40 MG in 0.9% Normal Saline (100mL MB+) 100 ML 330 MG IV ×2 (12:29→21:27)
[2025-03-24 13:11] LABS: Allen Test POSITIVE; Blood Gas Specimen Type ART; O2 Delivery Device CANNULA; SITE R RADIAL
[2025-03-24 13:12] LABS: PO2 104 mmHG (75-100); pCO2 14.2 mmHg (35-45); pH 7.27 (7.35-7.45)
[2025-03-24 13:13] LABS: Base Excess -20 mmol/L (-2 to +2); Bicarbonate 6.5 mmol/L (22-26); SO2 97 % (95-99); Total Carbon Dioxide 7 mmol/L
--- NOTE | 2025-03-24 13:15 | RAD_ITS ---
PROCEDURE: CHEST 1 VIEW 03/24/2025 1345 hours REASON FOR EXAM: CHEST TUBE #2 Check placement. TECHNIQUE: Frontal view of the chest. COMPARISON: Earlier study dated 03/24/2025, 1340 hours. FINDINGS: Lungs: Stable. Pleura: No residual pneumothorax demonstrated. Heart: Normal in size and configuration. Mediastinum/Tiff: Unremarkable. Great vessels: Unremarkable. Bones/soft tissues: Unremarkable. Therapeutic devices: Small caliber left chest tube. Endotracheal tube maintains its position. Enteric tube coiled in the body of the stomach. RAD/Chest 1 View IMPRESSION: Stable findings when compared to the earlier study 03/24/2025. Reading Location: [place] [id number]
--- NOTE | 2025-03-24 13:15 | RAD_ITS ---
PROCEDURE: CHEST 1 VIEW (PORTABLE) 03/24/2025 REASON FOR EXAM: CHEST TUBE PLACEMENT TECHNIQUE: Frontal view of the chest. COMPARISON: 03/24/2025 FINDINGS: Interval placement of left base chest tube with interval near resolution of left-sided pneumothorax now trace in size. Left IJ central line is noted. Enteric tube in appropriate position. Endotracheal tube in appropriate position. No focal consolidations. RAD/Chest 1 View (Portable) IMPRESSION: Interval placement of left base chest tube with interval near resolution of lef t-sided pneumothorax now trace in size. Reading Location: [id number]
[2025-03-24] MEDS: Albumin Human 25% (100 mL) 25 GM/100 ML BAG IV ×4 (13:41→20:10)
[2025-03-24] MEDS: Vasopressin 20 UNITS in 0.9% Normal Saline (50mL Bag) 24 ML 3 UNITS CONT INF ×2 (13:49→15:52)
[2025-03-24] MEDS: Hydrocortisone Sod Succinate 100 MG/2 ML Vial IV ×3 (13:59→23:35)
--- NOTE | 2025-03-24 14:18 | PCM.OPRPT ---
Procedures Hospitalists Procedures: [id number] Insertion Catheter Artery Operative Report (Standard) Operative Information Date of Procedure: 03/24/25 Pre-Operative Diagnosis: septic shock with vasopressor required Post-Operative Diagnosis: same Surgery/Procedure Performed: left brachial artery arterial line placement for invasive BP monitoring director of workforce development: No Type of Anesthesia: IV Sedation Procedure Start Time: 13:00 Procedure Stop Time: 13:30 Select all DRAINS/GRAFTS/IMPLANTS that apply: Implanted device (arrow arterial line catheter) Implanted device details: standard length for radial a placement Estimated Blood Loss: 2 Specimen collected: No Description of surgery: Consent was presumed given the critical nature of the patient's condition. I first attempted access in the left radial artery position but found a roughly 2 mm vessel that was thick-walled and was displaced by the needle rather than punctured. At 1 point I thought I identified flash but when I attempted to thread the catheter over the wire there was appearing extravasation as there was no blood return. Given the diminutive size of the vessel I elected to abandon this location after 1 additional attempt rethreading the wire. I moved more proximally to where I found an approximately 4 mm brachial artery. Here the vessel was accessed with 1 attempt and there was immediate flash in the access device. The catheter was threaded over the provided wire with immediate blood return. The catheter was connected to the transducer tubing and then was secured at the skin using a 4-0 silk suture. After cleaning around the insertion site the catheter was further secured with placement of a OpSite dressing. Transducing line showed pulsatile waveform and arterial pressure that closely match the cuff pressures being recorded. Distally the hand was slightly cool but showed ongoing perfusion Surgical Findings: Diminutive radial artery likely owing to, at least in part, current vasopressor use requiring more proximal placement of arterial line through left brachial artery Complications Complications: No
--- NOTE | 2025-03-24 14:19 | PCM.OPRPT ---
Procedures Hospitalists Procedures: [id number] Insertion of Chest Tube Operative Report (Standard) Operative Information Date of Procedure: 03/24/25 Pre-Operative Diagnosis: Left pneumothorax despite percutaneous catheter placement Post-Operative Diagnosis: Same Surgery/Procedure Performed: Insertion of 12F thoracostomy nuclear fuels research engineer: No Type of Anesthesia: IV Sedation Procedure Start Time: 13:45 Procedure Stop Time: 14:10 Select all DRAINS/GRAFTS/IMPLANTS that apply: Drains (Left chest tube) Drain details: 12 [place] Estimated Blood Loss: 2 Specimen collected: No Description of surgery: Procedure name: Insertion of left tube thoracostomy (12Fr) Procedure in detail : After obtaining consent from patient's family, the procedure was begun following a brief timeout confirming both the patient and the procedure. The insertion site was selected by identifying the intercostal space in the midaxillary line along the inframammary crease. A scalpel was used to incise the skin with an approximately 2 cm transverse incision. Blunt dissection was used to spread the subcutaneous tissue and underlying intercostal muscle fibers. Then through controlled pressure a Marylou clamp was used to access the pleural cavity. This tract was bluntly spread open and the clamp was exchanged for the chest tube. Chest tube was inserted to a depth of 12 centimeters on the chest tube marking at the skin. There was immediate return of air and a small amount of serosanguineous fluid after the tube was connected to the Pleur-evac collection device. The Pleur-evac was connected to wall suction with a chest tube suction of -30 cmH2O. There was air leak. Chest tube was then tied in with 0 silk suture. The site was dressed with petroleum gauze and regular gauze to pad the skin against the chest tube and this dressing was taped in place with a mesentery at the distal portion of the chest tube to allow for limited movement. A post-procedure chest x-ray was obtained to confirm tube position. Complications: None EBL: 2 mL Surgical Findings: Chest tube placed without difficulty and there was ongoing 1 column air leak -30 cmH2O. Chest x-ray showed reexpansion of the left lung Complications Complications: No
--- NOTE | 2025-03-24 14:22 | RAD_ITS ---
PROCEDURE: CHEST 1 VIEW (PORTABLE) 03/24/2025 REASON FOR EXAM: CHEST TUBE PLACEMENT TECHNIQUE: Frontal view of the chest. COMPARISON: Earlier study dated 03/24 2025 FINDINGS: Lungs: Lungs clear of pneumonia and congestion. Pleura: No pleural effusions, thickening, or pneumothorax. Heart: Normal in size and configuration. Mediastinum/Tiff: Unremarkable. Great vessels: Unremarkable. Bones/soft tissues: Unremarkable. Therapeutic devices: Tip of an endotracheal tube approximately 4.5 cm above the emiliano. Enteric tube coiled in the stomach. Left PICC line in good position. Tip of the small caliber left chest tube maintains his position. RAD/Chest 1 View (Portable) IMPRESSION: 1. No active cardiopulmonary disease. 2. Therapeutic devices in good position. No definite signs of residual pneumo thorax. Reading Location: [place] [id number]
[2025-03-24 14:23] LABS: Bedside Glucose 83 mg/dL (74-106)
[2025-03-24 14:23] LABS: Bedside Glucose 56 mg/dL (74-106)
[2025-03-24] MEDS: metroNIDAZOLE 500 MG/100 ML BAG 100 MG IV ×2 (14:34→21:29)
[2025-03-24 14:41] LABS: Base Excess -22 mmol/L (-2 to +2); Bicarbonate 5.1 mmol/L (22-26); Blood Gas Specimen Type ART; Mode AC/PC; O2 Delivery Device Adult Vent; PEEP 5; PIP 25; PO2 158 mmHG (75-100); RR 26; SITE Art Line; SO2 99 % (95-99); Time Given 14:38:44; Total Carbon Dioxide 6 mmol/L; pCO2 11.9 mmHg (35-45); pH 7.24 (7.35-7.45)
[2025-03-24] MEDS: fentaNYL drip 100 ML 2.5 MCG CONT INF (15:00)
[2025-03-24] MEDS: Norepinephrine 8 MG in 0.9% Normal Saline (250mL Bag) 242 ML 56.3 MG CONT INF ×2 (15:52→20:37)
[2025-03-24 16:11] LABS: Lactic Acid 15.2 mmol/L (0.0-2.0)
--- NOTE | 2025-03-24 16:17 | OP.PCM_ITS ---
Problems Associated Problem List Diagnoses (1) Colitis: Procedures Cardiovascular 3XXXX Add On: Other Procedure See Report ([id number] Central Line insertion) Operative Report (Standard) Operative Information Date of Procedure: 03/24/25 Pre-Operative Diagnosis: Severe sepsis Post-Operative Diagnosis: Same Surgery/Procedure Performed: Left subclavian triple-lumen catheter placement autocad electrical designer: No Type of Anesthesia: Local Procedure Start Time: 11:45 Procedure Stop Time: 12:00 Select all DRAINS/GRAFTS/IMPLANTS that apply: None Estimated Blood Loss: 10 mL Specimen collected: No Description of surgery: The patient is a 79-year-old male who was admitted last night for colitis involving his Alicia pouch. Patient was stable most of last night however this morning he was found essentially unresponsive. He was transferred to the ICU and a stroke workup was initiated. No stroke was found however patient was found to have free air on the chest x-ray following intubation. Surgical consultation was obtained. When patient was seen in the ICU I have informed that the patient was on the maximal amount of Levophed that could be run through a peripheral IV. So at this point a triple-lumen catheter/central line was indicated. This was discussed with the patient's daughter who gave consent to proceed with insertion. We discussed the details of the planned procedure as well as risks benefits and alternatives and she wished for us to proceed. The patient was placed in a Trendelenburg position. The left neck and chest regions were prepped and draped in the usual manner. The left subclavian vein was accessed on the second pass. The blood return was a dark red, nonpulsatile, venous appearing blood return. Guidewire was able to be advanced without difficulty. A dilator was then threaded over the guidewire. The triple-lumen catheter was then inserted also over the guidewire and a Seldinger technique. The guidewire was then removed. The triple-lumen catheter was then secured in place using the supplied suture. All 3 ports eliseo and flushed easily. Sterile dressing was applied chest x-ray was performed. Patient tolerated this well Surgical Findings: See procedure note Complications Complications: Yes Complication Details: Pneumothorax was noted on postprocedure chest x-ray Admit VTE Documentation VTE Present on Admission: No VTE Mechan Device Prophylaxis: SCD's VTE Pharm Prophylaxis ordered?: No Reason prophylaxis not ordered: Treatment Not Indicated
--- NOTE | 2025-03-24 16:29 | OP.PCM_ITS ---
Problems Associated Problem List Diagnoses (1) Pneumothorax: Procedures Pulmonary Pulmonary Procedures /Diagnostic Testin Insertion of chest tube Operative Report (Standard) Operative Information Date of Procedure: 03/24/25 Pre-Operative Diagnosis: Iatrogenic left pneumothorax following central line placement Post-Operative Diagnosis: Same Surgery/Procedure Performed: Insertion of left-sided chest tube metal building assembler: No Type of Anesthesia: Local Procedure Start Time: 12:30 Procedure Stop Time: 12:45 Select all DRAINS/GRAFTS/IMPLANTS that apply: Implanted device Implanted device details: 8 [place] chest tube Estimated Blood Loss: Minimal Specimen collected: No Description of surgery: The patient is a 79-year-old male who presented with abdominal pain and sepsis. Triple-lumen catheter was placed in the left subclavian region earlier. Postprocedure chest x-ray indicated pneumothorax. Left-sided chest tube was recommended. This was discussed with family and consent was obtained Patient was lying supine in the ICU bed. The left side of the lateral chest was prepped and draped in the usual sterile manner. Local anesthetic was infiltrated into the area. #11 blade was then used to make a small skin incision. Through this the 8 [place] chest tube was inserted over the needle once air return was obtained. This was inserted without difficulty. It was then affixed to the chest using the supplied suture. This was then connected to a Pleur-evac. The chest x-ray following the procedure was ordered Surgical Findings: See procedure note Complications Complications: No Admit VTE Documentation VTE Present on Admission: No VTE Mechan Device Prophylaxis: SCD's VTE Pharm Prophylaxis ordered?: No Reason prophylaxis not ordered: Treatment Not Indicated
[2025-03-24] MEDS: SODIUM CHLORIDE 5 ML INHALATION (16:36)
--- NOTE | 2025-03-24 16:38 | EX.PCM.CON.S ---
Assessment & Plan Assessment/Plan (1) Colitis: PLAN: Plan The patient is a 79-year-old male currently hospitalized with severe sepsis. Presumably this is related to perforation of the colon given findings of colitis/inflammation of Alicia pouch. The exact cause and/or location of this perforation remains uncertain. However, at this point patient continues to remain on increasing doses of pressors. Throughout the course the day his Levophed requirement continued to rise and is now currently on Levophed as well as vasopressin. I had several discussions with the patient's daughter as far as her father's illness. I explained that he is critically ill and becoming increasingly septic. Even at the time of my initial evaluation, patient was already on pretty high doses of pressors. I explained to her that I did not feel that patient would be a safe surgical candidate given the high pressors. I explained that anesthesia would cause a probable vasodilation which could ultimately hasten patient's demise. She expresses that she would not not want to see her father on an operating room table and she would prefer to have him comfortable. At this point we recommend supportive care. No plans for surgical intervention as this would be too risky. Will continue to follow and advise accordingly HPI Consult Data Date of Consult: 03/24/25 HPI Narrative Reason for Consultation: Severe sepsis and free air HPI Narrative: ANTHONY VIDES, is a 79 M who presented last night to the [facility] emergency room with abdominal pain and fever. 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 He underwent a Alicia procedure at that time. Patient also has a history of abdominal wall hernia, history of pelvic abscesses, small bowel obstruction, hypertension, Parkinson's disease. Patient states that he developed fever and weakness which prompted his visit to the emergency room. He was accompanied by his daughter. He was seen evaluated by the ER staff. He underwent a CT scan that showed diffuse thickening of the Alicia pouch consistent with colitis/proctitis. At that time there was no evidence to suggest abscess or perforation. He was subsidy admitted with IV antibiotics. Early this morning he was found to be nonresponsive and a stroke team was called. Patient underwent workup which revealed no evidence of stroke. He continued to decompensate and was transferred to the ICU and was intubated. Postintubation chest x-ray revealed free air under the diaphragm. Apparently his pain did acutely worsen overnight into this morning. I was contacted by the hospitalist caring for this patient. When the patient was seen, he was already on 15 of Levophed going through a peripheral IV. At that time his blood pressure was continuing to decrease. At that point a central line was inserted. Throughout the course of the day today, patient's pressor requirement continued to increase. Currently patient is maxed out on Levophed and is also currently on vasopressin. [facility] Medical History Pneumothorax Bilateral inguinal hernia Incisional hernia of anterior abdominal wall without obstruction or gangrene History of intestinal obstruction Wound dehiscence, surgical BPH (benign prostatic hyperplasia) Debility Hypertension CKD (chronic kidney disease), stage II Parkinson disease Home Medications ?Medication ?Instructions ?Recorded ?Last Taken ?Type amantadine HCl 100 mg capsule 100 mg PO DAILY hill 12/04/23 12/24/23 08:15 History food supplemt, lactose-reduced 120 ml PO 4X/DAY nutrition #237 mL 12/24/23 12/24/23 13:05 Rx 0.08 gram-1.5 kcal/mL oral liquid (Ensure Plus High Protein) carbidopa 25 mg-levodopa 100 mg 2 tab PO 0800 #0 tabs 01/16/24 Unknown Rx tablet carboxymethylcellulose sodium 0.5 1 drp ophthalmic (eye) Q6H PRN PRN 01/16/24 Unknown Rx % eye drops (Refresh Tears) DRY EYES #0 mL sennosides 8.6 mg-docusate sodium 2 tab PO BID #0 tabs 01/16/24 Unknown Rx 50 mg tablet (Stool Softener-Stimulant Laxative) sodium chloride 0.65 % nasal spray 1 spray NASAL BID PRN PRN NASAL 01/16/24 Unknown Rx aerosol (Deep Sea Nasal) DRYNESS #0 mL hydrochlorothiazide 25 mg tablet 12.5 mg PO DAILY 04/24/24 Unknown History aspirin 81 mg tablet,delayed 81 mg PO DAILY 11/29/24 Unknown History release (Adult Aspirin Regimen) carbidopa 25 mg-levodopa 100 mg 2 tab PO TID 11/29/24 Unknown History tablet Allergy/AdvReac Type Severity Reaction Status Date / Time No Known Allergies Allergy Verified 07/22/24 14:18 Family History Mother Heart disease Father Heart disease Surgical History History of intestinal surgery History of colostomy History of colectomy History of tonsillectomy and adenoidectomy Social History household members: none Smoking Status: Never smoker alcohol intake: never substance use type: does not use Physical Exam Narrative Patient is intubated and appears to be sedated although no sedation was actually being given. He did not appear to be in any distress. OG tube is in place. Output was somewhat green-tinged Examination of the abdomen reveals a distended abdomen. Patient with sizable hernia. Ostomy appeared pink and viable with scant stool in bag. No evidence of flatus from the ostomy. Patient did not seem to wince or grimace with palpation. Lab / Micro Data 03/24/25 06:06 03/24/25 06:06 Labs: Laboratory Results - last 24 hr 03/24/25 06:06: WBC 2.4 L, RBC 3.99 L, Hgb 12.9 L, Hct 40.9, MCV 102.5 H D, MCH 32.3 H, MCHC 31.5 L D, RDW Std Deviation 62.3 H, RDW Coeff of Ann 16.3 H, Plt Count 238, MPV 11.4, Immature Gran % (Auto) 0.400, Neut % (Auto) 83.6 H, Lymph % (Auto) 11.8 L, [place] % (Auto) 2.1, Eos % (Auto) 0.0, Baso % (Auto) 2.1 H, Absolute Neuts (auto) 2.0, Absolute Lymphs (auto) 0.28 L, Nucleated RBC % 0.8, Differential Comment COMMENT, Atypical Lymphocytes 1+, Sodium 137, Potassium 3.9, Chloride 97 L, Carbon Dioxide 13.8 L, Anion Gap 26 H, BUN 32 H, Creatinine 1.55 H, Estim Creat Clear Calc 33.78 L, Est GFR (MDRD) Non-Af 46 L, BUN/Creatinine Ratio 20.4 H, Glucose 131 H, Calcium 8.9, Phosphorus 5.4 H, Magnesium 2.1 03/24/25 07:56: POC Glucose 56 L 03/24/25 08:11: POC Glucose 83 03/24/25 09:49: POC Glucose 82 03/24/25 15:03: Lactic Acid 15.2 H* ABG Data ABG results: ABG 03/24/25 03/24/25 03/24/25 06:02 08:20 11:48 Specimen Type ART ART ART Sample Site L Radial R RADIAL R Radial pH 7.52 H 7.27 L 7.23 L Bicarbonate Actual 9.0 L 6.5 L 8.2 L Total CO2 9 7 9 Base Excess -14 L -20 L -19 L O2 Saturation 98 97 99 O2 % 4.0 50.0 ABG pCO2 11.1 L* 14.2 L* 19.6 L ABG pO2 90 104 H 179 H Marco Antonio Test Positive POSITIVE Positive Respiration Rate 12 O2 Delivery Device Cannula CANNULA Adult Vent Vent Mode Not entered AC Tidal Volume 400.0 POC PEEP 5 Peak Inspir Pressure Crit Call To/Read Back Yes Blood Gas Notified Whom Raad PARKER Blood Gas Notified Time 06:04:07 03/24/25 14:36 Specimen Type ART Sample Site Art Line pH 7.24 L Bicarbonate Actual 5.1 L Total CO2 6 Base Excess -22 L O2 Saturation 99 O2 % 40.0 ABG pCO2 11.9 L* ABG pO2 158 H Marco Antonio Test Respiration Rate 26 O2 Delivery Device Adult Vent Vent Mode AC/PC Tidal Volume POC PEEP 5 Peak Inspir Pressure 25 Crit Call To/Read Back Yes Blood Gas Notified Whom stella Blood Gas Notified Time 14:38:44 Imaging Radiology Impression Chest X-Ray 03/24/25 08:10 IMPRESSION: The patient has free air under the right hemidiaphragm. I spoke with the nurse in the ICU (03/24/2025 at 10:45 a.m.) and the patient has not had any intra-abdominal procedures and this is consistent with a perforated abdominal viscus. Reading Location: [id number] Brain CT 03/24/25 08:22 IMPRESSION: 1. Age-related chronic microvascular ischemic changes. 2. Age-appropriate senescent changes. 3. No evidence of acute intracranial hemorrhage or ischemic infarction. Reading Location: [facility] Head/Neck CTA 03/24/25 08:22 IMPRESSION: 1. No evidence of significant stenosis of either internal carotid artery. 2. No evidence of intracranial vascular stenosis or occlusion. 3. No evidence of intracranial aneurysms or vascular malformations. 4. Other findings as noted. Reading Location: [facility] Chest X-Ray 03/24/25 10:15 IMPRESSION: Endotracheal tube in place, with tip approximately 3 cm above the emiliano. The cardiomediastinal silhouette is within the normal range, and unchanged. Lungs appear clear of acute disease. No pleural effusion or pneumothorax is noted. No acute osseous change is evident. Reading Location: [address] Chest X-Ray 03/24/25 12:22 IMPRESSION: Endotracheal tube, nasogastric tube and left subclavian deep line appear in good position. Other findings as noted. Reading Location: [facility] Chest X-Ray 03/24/25 13:15 IMPRESSION: Interval placement of left base chest tube with interval near resolution of left-sided pneumothorax now trace in size. Reading Location: [facility] Chest X-Ray 03/24/25 13:15 IMPRESSION: Stable findings when compared to the earlier study 03/24/2025. Reading Location: [place] [address] Chest X-Ray 03/24/25 14:22 IMPRESSION: 1. No active cardiopulmonary disease. 2. Therapeutic devices in good position. No definite signs of residual pneumothorax. Reading Location: [place] [address] Charges/Coding Visit Charges Inpatient E&M: 77843 Init Hosp L3
[2025-03-24 19:17] LABS: Reflex Lactate? Y
[2025-03-24] MEDS: 0.9% Saline Lock 10 ML Syringe IV (20:09)
[2025-03-24 20:39] LABS: Bedside Glucose 92 mg/dL (74-106)
[2025-03-24 21:00] LABS: Lactic Acid 12.8 mmol/L (0.0-2.0)
[2025-03-24] MEDS: CARBOXYMETHYLCELLULOSE SODIUM 1 DRP DROPS OPHTHALMIC (21:29)
--- NOTE | 2025-03-24 22:29 | CPS ---
unable to obtain accurate pulse ox reading at this time
[2025-03-25] VITALS (30 sets, daily range): BP systolic 90–114; BP diastolic 52–76; PULSE 89–105; RESP 26; TEMP 37.6–38.2; O2SAT 95–98; BMI 21.6
[2025-03-25] MEDS: Norepinephrine 8 MG in 0.9% Normal Saline (250mL Bag) 242 ML 46.9 MG CONT INF (01:17)
[2025-03-25] MEDS: Vasopressin 20 UNITS in 0.9% Normal Saline (50mL Bag) 24 ML 3 UNITS CONT INF ×2 (01:17→09:43)
[2025-03-25] MEDS: Albumin Human 25% (100 mL) 25 GM/100 ML BAG IV (01:19)
[2025-03-25 01:52] LABS: Base Excess -16 mmol/L (-2 to +2); Bicarbonate 8.5 mmol/L (22-26); Blood Gas Specimen Type ART; Mode AC/PC; O2 Delivery Device ET Tube; PEEP 5; PO2 173 mmHG (75-100); SITE Art Line; SO2 100 % (95-99); Total Carbon Dioxide 9 mmol/L; pCO2 13.2 mmHg (35-45); pH 7.42 (7.35-7.45)
--- NOTE | 2025-03-25 01:54 | CPS ---
Critical CO2 value from a-line, Dr. infante.
--- NOTE | 2025-03-25 04:25 | RAD_ITS ---
PROCEDURE: CHEST 1 VIEW (PORTABLE) 03/25/2025 REASON FOR EXAM: ARF TECHNIQUE: Frontal view of the chest. COMPARISON: Chest radiographs 03/24/2025 FINDINGS: Hardware: Endotracheal tube tip terminates 3.3 cm proximal to the emiliano. Enteric tube courses in the midline with tip and side port again projecting over the expected location of the stomach. Left PICC line with tip terminating near the superior cavoatrial junction. Left chest tube in unchanged position. Heart: Cardiac and mediastinal contours are stable. Lungs: Lung volumes are low. Perihilar fullness with increased interstitial markings bilaterally. No significant pneumothorax. Bones: Degenerative changes are identified within the thoracic spine. RAD/Chest 1 View (Portable) IMPRESSION: Increasing perihilar opacities may be the result of low lung volumes, though ed jaxon, infection, or atelectasis could appear similar. Reading Location: [id number]
[2025-03-25] MEDS: 0.9% Normal Saline (1000mL) 1,000 ML 150 ML IV ×2 (04:30→11:13)
--- NOTE | 2025-03-25 06:00 | CPS ---
critical CO2, RN notified
[2025-03-25 06:02] LABS: Base Excess -16 mmol/L (-2 to +2); Bicarbonate 8.8 mmol/L (22-26); Blood Gas Specimen Type ART; Mode AC/PC; O2 Delivery Device Not entered; PEEP 5; PO2 135 mmHG (75-100); RR 26; SITE Art Line; SO2 99 % (95-99); Total Carbon Dioxide 9 mmol/L; pCO2 14.6 mmHg (35-45); pH 7.39 (7.35-7.45)
[2025-03-25] MEDS: Hydrocortisone Sod Succinate 100 MG/2 ML Vial IV ×2 (06:06→11:13)
[2025-03-25] MEDS: 0.9% Saline Lock 10 ML Syringe IV (06:11)
[2025-03-25] MEDS: metroNIDAZOLE 500 MG/100 ML BAG 100 MG IV ×2 (06:17→13:51)
[2025-03-25] MEDS: Piperacil/Tazobactam 3.375 GM in 0.9% Normal Saline (50mL MB+) 50 ML IV (06:18)
[2025-03-25] MEDS: Sodium Bicarbonate 50 MEQ in Dextrose 5%-Water (1000mL Bag) 1,000 ML 100 MEQ IV (06:49)
[2025-03-25] MEDS: Norepinephrine 8 MG in 0.9% Normal Saline (250mL Bag) 242 ML 37.5 MG CONT INF ×2 (06:50→13:51)
[2025-03-25 06:57] LABS: Hematocrit 25.7 % (40-54); Hemoglobin 8.7 g/dL (13.0-16.5); Mean Corp Hgb Conc 33.9 g/dL (32-36); Mean Corpuscular Hgb 32.2 pg (27.0-32.0); Mean Corpuscular Volume 95.2 fL (80-94); POSITIVE COUNT YES; POSITIVE DIFFERENTIAL YES; POSITIVE MORPHOLOGY YES; Platelet Count 41 K/mm3 (150-450); RBC Distribution Width CV 16.8 % (11.6-14.6); RBC Distribution Width SD 58.5 fl (35.1-43.9); White Blood Count 10.9 K/mm3 (4.4-11.0)
[2025-03-25 07:00] LABS: AST(SGOT) 5085 U/L (<=37); Alanine Aminotransfer ALT/SGPT 440 U/L (<=46); Albumin, Serum 3.4 g/dL (3.4-4.8); Alkaline Phosphatase 151 U/L (40-129); Anion Gap 28 (5-15); BUN 55 mg/dL (4-19); Calcium,Total 6.5 mg/dL (7.6-11.0); Carbon Dioxide 7.6 mmol/L (21.0-32.0); Chloride 97 mmol/L (98-108); Creatinine, Serum 3.26 mg/dL (0.70-1.20); EST Glomerular Filtration Rate 19 (>60); Estimated Creatinine Clearance 18.07 ml/min (50-250); Globulin 1.7 g/dL (2.2-4.2); Glucose 83 mg/dL (70-99); Potassium 4.5 mmol/L (3.3-5.1); Protein, Total 5.1 g/dL (5.9-8.4); Sodium Level 133 mmol/L (133-145); Total Bilirubin 3.21 mg/dL (0.00-1.30)
--- NOTE | 2025-03-25 07:02 | PN.CC_ITS ---
Assessment & Plan Assessment/Plan (1) Septic shock: PLAN: Plan RECOMMENDATIONS: 1. Continue assist-control mode mechanical ventilation. Wean FiO2 as tolerated. 2. Continue chest tube to wall suction. 3. Continue broad-spectrum antimicrobials. 4. Continue vasopressor support in an attempt to maintain a mean arterial pressure at or above 65 mmHg. 5. Continue sodium bicarb and infusion. 6. Continue stress dose steroids. 7. Obtain nephrology consultation. 8. Continue appropriate ICU prophylaxis. 9. Goals of care discussion with the patient's family. IMPRESSIONS: 1. Septic shock with multisystem organ failure Clinical concern for underlying bowel perforation leading to septic shock and multisystem organ failure. Plan to continue Levophed and vasopressin, along with stress dose steroids in an attempt to maintain mean arterial pressure at or above 65 mmHg. The patient will be continued on antimicrobial therapy as ordered. 2. Pneumoperitoneum The patient has a known history of prior sigmoid volvulus which required a Dhillon's procedure and small bowel resection with reanastomosis in November 2023. He presented to the hospital with generalized weakness and fevers. Shortly after his hospital admission, the patient decompensated clinically with concern for perforated bowel with free air noted under the right hemidiaphragm on chest imaging. At the present time, the patient is too unstable from a clinical perspective to undergo additional CT imaging of the abdomen and pelvis. After speaking with general surgery, he would not be a candidate for any form of surgical intervention, given his clinical instability. 3. Iatrogenic pneumothorax Continue chest tube to wall suction as ordered. Obtain follow-up chest imaging tomorrow. 4. Acute hypoxemic respiratory failure The patient was intubated as a consequence of his pneumoperitoneum and subsequent septic shock. He will be continued on assist-control mode mechanical ventilation, with a goal to wean FiO2 and PEEP to maintain saturations at or above 90%. ABG is appropriate this morning. 5. Acute kidney injury Most likely prerenal in etiology with evolution to ischemic ATN in the setting of #1. Will continue to provide supportive care with sodium bicarb and infusion for now. Depending on the outcome of the CODE STATUS discussion with the patient's family, may need to consider nephrology consultation if full code is elected. 6. Ischemic hepatitis Secondary to hypotension in the setting of #1. Continue to monitor liver function profile and coagulation status. Continue supportive care as noted above. 7. History of Parkinson's disease/anemia/hypertension/BPH/generalized deconditioning Complicates care, management, recovery and prognosis. Continue supportive measures as noted above. TIME: 47 minutes of critical care time, independent of procedures, was spent addressing the patient's septic shock, multisystem organ failure, pneumoperitoneum, iatrogenic pneumothorax, acute respiratory failure with hypoxemia, metabolic encephalopathy, review of all data and collaboration with the care team. Subjective Subjective The patient was seen and examined at the bedside this morning. Events from the last 24 hours have been reviewed. The patient currently has a low-grade fever and remains on vasopressor support to maintain hemodynamic stability. The patient is currently documented to be overall net positive 8 liter for the hospitalization. The patient nemo on assist-control mode mechanical ventilation with an FiO2 requirement of 30% and PEEP of 5. ABG this morning was notable for a pH of 7.39 with a PCO2 of 15 and PO2 of 135. Chemistry profile was notable for a bicarbonate of 8.0, BUN of 55 and creatinine of 3.26. Lactate remains elevated at 10.7. Total bilirubin is increased to 3.2 with an AST of 5085, ALT of 440 and alkaline phosphatase of 151. Objective Data Objective Data The patient's most recent lab work, culture data and imaging studies have all been personally reviewed. COVID, influenza and RSV PCR's were negative. C. difficile PCR was positive. Blood and urine cultures are pending. Vital Signs: Vital Signs Temp Pulse Resp BP Pulse Ox O2 Del Method O2 Flow Rate 99.7 F H 93 26 H 94/58 L 98 Mechanical Ventilator 3 03/25/25 07:00 03/25/25 07:00 03/25/25 07:00 03/25/25 07:00 03/25/25 05:00 03/25/25 07:00 03/24/25 08:45 FiO2 30 03/25/25 07:00 Oxygen Flow Rate (L/min) 3 Oxygen Delivery Method Mechanical Ventilator Weight: 150 lb 12.739 oz Body Mass Index (BMI) 21.6 Intake & Output: Intake and Output for Last 24 Hours 03/23/25 03/24/25 03/25/25 23:59 23:59 23:59 Intake Total 1465.00 / 1465.00 4845.58 / 4904.38 2607.67 / 2607.67 Output Total 350 / 350 500 / 525 75 / 75 Balance 1115.00 / 1115.00 4345.58 / 4379.38 2532.67 / 2532.67 Lab / Micro Data Attestation: I reviewed the patient's lab results. 03/25/25 06:45 03/25/25 06:43 Labs: Laboratory Results - last 24 hr 03/24/25 06:06: WBC 2.4 L, RBC 3.99 L, Hgb 12.9 L, Hct 40.9, MCV 102.5 H D, MCH 32.3 H, MCHC 31.5 L D, RDW Std Deviation 62.3 H, RDW Coeff of Ann 16.3 H, Plt Count 238, MPV 11.4, Immature Gran % (Auto) 0.400, Neut % (Auto) 83.6 H, Lymph % (Auto) 11.8 L, [place] % (Auto) 2.1, Eos % (Auto) 0.0, Baso % (Auto) 2.1 H, Absolute Neuts (auto) 2.0, Absolute Lymphs (auto) 0.28 L, Nucleated RBC % 0.8, Differential Comment COMMENT, Atypical Lymphocytes 1+, Sodium 137, Potassium 3.9, Chloride 97 L, Carbon Dioxide 13.8 L, Anion Gap 26 H, BUN 32 H, Creatinine 1.55 H, Estim Creat Clear Calc 33.78 L, Est GFR (MDRD) Non-Af 46 L, B UN/Creatinine Ratio 20.4 H, Glucose 131 H, Calcium 8.9, Phosphorus 5.4 H, Magnesium 2.1 03/24/25 07:56: POC Glucose 56 L 03/24/25 08:11: POC Glucose 83 03/24/25 09:49: POC Glucose 82 03/24/25 15:03: Lactic Acid 15.2 H* 03/24/25 20:13: Lactic Acid 12.8 H* 03/24/25 20:16: POC Glucose 92 03/25/25 05:51: WBC Cancelled, Corrected WBC Cancelled, RBC Cancelled, Hgb Cancelled, Hct Cancelled, MCV Cancelled, MCH Cancelled, MCHC Cancelled, RDW Std Deviation Cancelled, RDW Coeff of Ann Cancelled, Plt Count Cancelled, MPV Cancelled, Immature Gran % (Auto) Cancelled, Neut % (Auto) Cancelled, Lymph % (Auto) Cancelled, [place] % (Auto) Cancelled, Eos % (Auto) Cancelled, Baso % (Auto) Cancelled, Absolute Neuts (auto) Cancelled, Absolute Lymphs (auto) Cancelled, Total Counted Cancelled, Neutrophils % (Manual) Cancelled, Band Neutrophils % Cancelled, Lymphocytes % (Manual) Cancelled, Monocytes % (Manual) Cancelled, Eosinophils % (Manual) Cancelled, Basophils % (Manual) Cancelled, Metamyelocytes % Cancelled, Myelocytes % Cancelled, Promyelocytes % Cancelled, Blast Cells % Cancelled, Plasma Cell % (Manual) Cancelled, Other Cells % Cancelled, Nucleated RBC % Cancelled, Nucleated RBCs/100 WBC Cancelled, Differential Comment Cancelled, Diff Path Review Cancelled, Hypersegmented Neuts Cancelled, Atypical Lymphocytes Cancelled, Reactive Lymphocytes Cancelled, Smudge Cells Cancelled, Toxic Granulation Cancelled, Toxic Vacuolation Cancelled, Dohle Bodies Cancelled, Chang Rods Cancelled, Platelet Estimate Cancelled, Plt Morphology Comment Cancelled, RBC Morphology Cancelled 03/25/25 05:51: RBC Morphology Cancelled, Polychromasia Cancelled, Hypochromasia Cancelled, Basophilic Stippling Cancelled, Anisocytosis Cancelled, Microcytosis Cancelled, Macrocytosis Cancelled, Spherocytes Cancelled, Sickle Cells Cancelled, Target Cells Cancelled, Tear Drop Cells Cancelled, Ovalocytes Cancelled, Stomatocytes Cancelled, [place] Bodies Cancelled, Skye Cells Cancelled, Bite Cells Cancelled, Crenated Cell Cancelled, Acanthocytes (Spur) Cancelled, Rouleaux Cancelled, Schistocytes Cancelled, Sodium 133, Potassium 4.5, Chloride 97 L, Carbon Dioxide 7.6 L*, Anion Gap 28 H, BUN 55 H, Creatinine 3.26 H, Estim Creat Clear Calc 18.07 L, Est GFR (MDRD) Non-Af 19 L, BUN/Creatinine Ratio 17.0, Glucose 83, Calcium 6.5 L*, Total Bilirubin 3.21 H, A ST 5085 H, ALT 440 H, Alkaline Phosphatase 151 H, Total Protein 5.1 L, Albumin 3.4, Globulin 1.7 L, Albumin/Globulin Ratio 2.0 Micro: Microbiology 03/23/25 08:35 Stool Enteric Bacteriology - Final 03/23/25 08:35 Stool C. difficile GDH Antigen & Toxins - Final 03/23/25 08:35 Stool Clostridioides difficile (PCR) - Final 03/23/25 04:30 Mucosa - Nose SARS-CoV-2, Influenza & RSV (PCR) - Final ABG Data ABG results: ABG 03/24/25 03/24/25 03/24/25 08:20 11:48 14:36 Specimen Type ART ART ART Sample Site R RADIAL R Radial Art Line pH 7.27 L 7.23 L 7.24 L Bicarbonate Actual 6.5 L 8.2 L 5.1 L Total CO2 7 9 6 Base Excess -20 L -19 L -22 L O2 Saturation 97 99 99 O2 % 50.0 40.0 ABG pCO2 14.2 L* 19.6 L 11.9 L* ABG pO2 104 H 179 H 158 H Marco Antonio Test POSITIVE Positive Respiration Rate 12 26 O2 Delivery Device CANNULA Adult Vent Adult Vent Vent Mode AC AC/PC Tidal Volume 400.0 POC PEEP 5 5 Peak Inspir Pressure 25 Crit Call To/Read Back Yes Blood Gas Notified Whom DR. KEITH douglas Blood Gas Notified Time 14:38:44 03/25/25 03/25/25 01:48 05:57 Specimen Type ART ART Sample Site Art Line Art Line pH 7.42 7.39 Bicarbonate Actual 8.5 L 8.8 L Total CO2 9 9 Base Excess -16 L -16 L O2 Saturation 100 H 99 O2 % 40.0 30.0 ABG pCO2 13.2 L* 14.6 L* ABG pO2 173 H 135 H Marco Antonio Test Respiration Rate 26 O2 Delivery Device ET Tube Not entered Vent Mode AC/PC AC/PC Tidal Volume POC PEEP 5 5 Peak Inspir Pressure Crit Call To/Read Back Yes Yes Blood Gas Notified Whom Blood Gas Notified Time Radiography Diagnostic Testing: Radiology Impression Chest X-Ray 03/24/25 08:10 IMPRESSION: The patient has free air under the right hemidiaphragm. I spoke with the nurse in the ICU (03/24/2025 at 10:45 a.m.) and the patient has not had any intra-abdominal procedures and this is consistent with a perforated abdominal viscus. Reading Location: [facility] Brain CT 03/24/25 08:22 IMPRESSION: 1. Age-related chronic microvascular ischemic changes. 2. Age-appropriate senescent changes. 3. No evidence of acute intracranial hemorrhage or ischemic infarction. Reading Location: [facility] Head/Neck CTA 03/24/25 08:22 IMPRESSION: 1. No evidence of significant stenosis of either internal carotid artery. 2. No evidence of intracranial vascular stenosis or occlusion. 3. No evidence of intracranial aneurysms or vascular malformations. 4. Other findings as noted. Reading Location: [facility] Chest X-Ray 03/24/25 10:15 IMPRESSION: Endotracheal tube in place, with tip approximately 3 cm above the emiliano. The cardiomediastinal silhouette is within the normal range, and unchanged. Lungs appear clear of acute disease. No pleural effusion or pneumothorax is noted. No acute osseous change is evident. Reading Location: [address] Chest X-Ray 03/24/25 12:22 IMPRESSION: Endotracheal tube, nasogastric tube and left subclavian deep line appear in good position. Other findings as noted. Reading Location: [facility] Chest X-Ray 03/24/25 13:15 IMPRESSION: Interval placement of left base chest tube with interval near resolution of left-sided pneumothorax now trace in size. Reading Location: [facility] Chest X-Ray 03/24/25 13:15 IMPRESSION: Stable findings when compared to the earlier study 03/24/2025. Reading Location: [place] [id number] Chest X-Ray 03/24/25 14:22 IMPRESSION: 1. No active cardiopulmonary disease. 2. Therapeutic devices in good position. No definite signs of residual pneumothorax. Reading Location: [facility] Chest X-Ray 03/25/25 04:25 IMPRESSION: Increasing perihilar opacities may be the result of low lung volumes, though edema, infection, or atelectasis could appear similar. Reading Location: [facility] Physical Exam Const Constitutional Narrative: Intubated, sedated and mechanically ventilated. General Appearance: ill appearing and patient mechanically ventilated HEENT normocephalic and head/scalp atraumatic Mouth: endotracheal tube in place and OG tube in place Eyes PERRL, EOMs intact bilaterally and conjunctivae normal Neck supple General: trachea midline and CVC in place Chest inspection of chest normal Resp Resp Narrative: Left-sided chest tubes in place x 2 with persistent airleak noted in atrium. Auscultation: diminished lung sounds Cardio regular rate and regular rhythm GI soft to palpation GI Narrative: Hernia present Inspection: abdominal distention and ostomy present Extremity no clubbing, cyanosis or edema Skin no rashes or lesions noted Neuro Sensorium / Orientation: sedated on vent Charges/Coding Procedures Hospitalists Procedures: 64059 Critical Care 1st Hr
[2025-03-25 07:11] LABS: Lactic Acid 10.7 mmol/L (0.0-2.0)
[2025-03-25 08:01] LABS: ALB/GLOB Ratio 1.9 RATIO (0.9-2.4); AST(SGOT) 4968 U/L (<=37); Alanine Aminotransfer ALT/SGPT 468 U/L (<=46); Albumin, Serum 3.3 g/dL (3.4-4.8); Alkaline Phosphatase 158 U/L (40-129); Anion Gap 27 (5-15); BUN 56 mg/dL (4-19); BUN/Creat Ratio 16.8 RATIO (10-20); Calcium,Total 6.5 mg/dL (7.6-11.0); Carbon Dioxide 9.3 mmol/L (21.0-32.0); Chloride 97 mmol/L (98-108); Creatinine, Serum 3.31 mg/dL (0.70-1.20); EST Glomerular Filtration Rate 18 (>60); Estimated Creatinine Clearance 17.79 ml/min (50-250); Globulin 1.7 g/dL (2.2-4.2); Glucose 76 mg/dL (70-99); Potassium 4.5 mmol/L (3.3-5.1); Sodium Level 134 mmol/L (133-145); Total Bilirubin 3.29 mg/dL (0.00-1.30)
[2025-03-25 08:56] LABS: Differential Indicated MANUAL DIFF
[2025-03-25 09:00] LABS: Lymphocyte 4 % (19-41); Metamyelocyte 21 % (0-1); Monocyte 2 % (0-10); Myelocyte 5 % (0-0); Neutrophil-Band 22 % (0-5); Neutrophil-Segmented 46 % (47-70); Total Cells Counted 100 (MANUAL DIFF)
[2025-03-25 09:02] LABS: Dohle Bodies 1+; Toxic Granulation 1+
[2025-03-25 09:03] LABS: Acanthocytes 1+; Ovalocyte 1+; Platelet Estimate 1 (ADEQ)
[2025-03-25 09:04] LABS: Absolute Lymphocyte Count 0.43 X10^3/uL (0.83-4.51); Absolute Neutrophil Count 7.4 X10^3/uL (2.0-7.7)
[2025-03-25 09:05] LABS: Pathologist Review May foll
--- NOTE | 2025-03-25 09:06 | PN.HOSP_ITS ---
Reason for Visit Reason for Visit: Diagnoses Pneumothorax, unspecified (03/24/25) Noninfective gastroenteritis and colitis, unspecified (03/24/25) Subjective Subjective Patient was intubated the day prior. Central line was placed patient subsequently developed a pneumothorax resulting in double chest tube in place. Patient remains on pressors. Has developed significant renal failure as well as hepatic failure. Had a discussion with patient's daughter regarding his clinical condition and prognosis. Objective Data Objective Data Vital Signs: Vital Signs Temp Pulse Resp BP Pulse Ox O2 Del Method O2 Flow Rate 99.7 F H 92 26 H 90/58 L 98 Mechanical Ventilator 3 03/25/25 08:00 03/25/25 08:00 03/25/25 08:00 03/25/25 08:00 03/25/25 05:00 03/25/25 08:00 03/24/25 08:45 FiO2 30 03/25/25 08:00 Oxygen Flow Rate (L/min) 3 Oxygen Delivery Method Mechanical Ventilator Weight: 68.4 kg Body Mass Index (BMI) 21.6 Intake & Output: Intake and Output for Last 24 Hours 03/23/25 03/24/25 03/25/25 23:59 23:59 23:59 Intake Total 1465.00 / 1465.00 4845.58 / 4904.38 3412.40 / 3412.40 Output Total 350 / 350 500 / 525 267 / 267 Balance 1115.00 / 1115.00 4345.58 / 4379.38 3145.40 / 3145.40 Lab / Micro Data 03/25/25 06:45 03/25/25 06:43 Labs: Laboratory Results - last 24 hr 03/24/25 07:56: POC Glucose 56 L 03/24/25 08:11: POC Glucose 83 03/24/25 09:49: POC Glucose 82 03/24/25 15:03: Lactic Acid 15.2 H* 03/24/25 20:13: Lactic Acid 12.8 H* 03/24/25 20:16: POC Glucose 92 03/25/25 05:51: WBC Cancelled, Corrected WBC Cancelled, RBC Cancelled, Hgb Cancelled, Hct Cancelled, MCV Cancelled, MCH Cancelled, MCHC Cancelled, RDW Std Deviation Cancelled, RDW Coeff of Ann Cancelled, Plt Count Cancelled, MPV Cancelled, Immature Gran % (Auto) Cancelled, Neut % (Auto) Cancelled, Lymph % (Auto) Cancelled, [place] % (Auto) Cancelled, Eos % (Auto) Cancelled, Baso % (Auto) Cancelled, Absolute Neuts (auto) Cancelled, Absolute Lymphs (auto) Cancelled, Total Counted Cancelled, Neutrophils % (Manual) Cancelled, Band Neutrophils % Cancelled, Lymphocytes % (Manual) Cancelled, Monocytes % (Manual) Cancelled, Eosinophils % (Manual) Cancelled, Basophils % (Manual) Cancelled, Metamyelocytes % Cancelled, Myelocytes % Cancelled, Promyelocytes % Cancelled, Blast Cells % Cancelled, Plasma Cell % (Manual) Cancelled, Other Cells % Cancelled, Nucleated RBC % Cancelled, Nucleated RBCs/100 WBC Cancelled, Differential Comment Cancelled, Diff Path Review Cancelled, Hypersegmented Neuts Cancelled, Atypical Lymphocytes Cancelled, Reactive Lymphocytes Cancelled, Smudge Cells Cancelled, Toxic Granulation Cancelled, Toxic Vacuolation Cancelled, Dohle Bodies Cancelled, Chang Rods Cancelled, Platelet Estimate Cancelled, Plt Morphology Comment Cancelled, RBC Morphology Cancelled 03/25/25 05:51: RBC Morphology Cancelled, Polychromasia Cancelled, Hypochromasia Cancelled, Basophilic Stippling Cancelled, Anisocytosis Cancelled, Microcytosis Cancelled, Macrocytosis Cancelled, Spherocytes Cancelled, Sickle Cells Cancelled, Target Cells Cancelled, Tear Drop Cells Cancelled, Ovalocytes Cancelled, Stomatocytes Cancelled, [place] Bodies Cancelled, [place] Cells Cancelled, Bite Cells Cancelled, Crenated Cell Cancelled, Acanthocytes (Spur) Cancelled, Rouleaux Cancelled, Schistocytes Cancelled, Sodium 133, Potassium 4.5, Chloride 97 L, Carbon Dioxide 7.6 L*, Anion Gap 28 H, BUN 55 H, Creatinine 3.26 H, Estim Creat Clear Calc 18.07 L, Est GFR (MDRD) Non-Af 19 L, BUN/Creatinine Ratio 17.0, Glucose 83, Lactic Acid 10.7 H*, Calcium 6.5 L*, T otal Bilirubin 3.21 H, AST 5085 H, ALT 440 H, Alkaline Phosphatase 151 H, Total Protein 5.1 L, Albumin 3.4, Globulin 1.7 L, Albumin/Globulin Ratio 2.0 03/25/25 06:43: Sodium 134, Potassium 4.5, Chloride 97 L, Carbon Dioxide 9.3 L*, Anion Gap 27 H, BUN 56 H, Creatinine 3.31 H, Estim Creat Clear Calc 17.79 L, Est GFR (MDRD) Non-Af 18 L, BUN/Creatinine Ratio 16.8, Glucose 76, Calcium 6.5 L*, T otal Bilirubin 3.29 H, AST 4968 H, ALT 468 H, Alkaline Phosphatase 158 H, Total Protein 5.0 L, Albumin 3.3 L, Globulin 1.7 L, Albumin/Globulin Ratio 1.9 03/25/25 06:45: WBC 10.9, RBC 2.70 L, Hgb 8.7 L, Hct 25.7 L, MCV 95.2 H D, MCH 32.2 H, MCHC 33.9 D, RDW Std Deviation 58.5 H, RDW Coeff of Ann 16.8 H, Plt Count 41 L*, MPV TNP, Neut % (Auto) Not Reportable, Absolute Neuts (auto) 7.4, A bsolute Lymphs (auto) 0.43 L, Total Counted 100, Neutrophils % (Manual) 46 L, B and Neutrophils % 22 H, Lymphocytes % (Manual) 4 L, Monocytes % (Manual) 2, M etamyelocytes % 21 H, Myelocytes % 5 H, Diff Path Review May foll, Toxic Granulation 1+, Dohle Bodies 1+, Platelet Estimate 1, Ovalocytes 1+, Acanthocytes (Spur) 1+ Micro: Microbiology 03/23/25 03:17 Urine, Clean Catch Urine Culture - Final Culture exhibits no growth. 03/23/25 08:35 Stool Enteric Bacteriology - Final 03/23/25 08:35 Stool C. difficile GDH Antigen & Toxins - Final 03/23/25 08:35 Stool Clostridioides difficile (PCR) - Final 03/23/25 04:30 Mucosa - Nose SARS-CoV-2, Influenza & RSV (PCR) - Final ABG Data ABG results: ABG 03/24/25 03/24/25 03/24/25 08:20 11:48 14:36 Specimen Type ART ART ART Sample Site R RADIAL R Radial Art Line pH 7.27 L 7.23 L 7.24 L Bicarbonate Actual 6.5 L 8.2 L 5.1 L Total CO2 7 9 6 Base Excess -20 L -19 L -22 L O2 Saturation 97 99 99 O2 % 50.0 40.0 ABG pCO2 14.2 L* 19.6 L 11.9 L* ABG pO2 104 H 179 H 158 H Marco Antonio Test POSITIVE Positive Respiration Rate 12 26 O2 Delivery Device CANNULA Adult Vent Adult Vent Vent Mode AC AC/PC Tidal Volume 400.0 POC PEEP 5 5 Peak Inspir Pressure 25 Crit Call To/Read Back Yes Blood Gas Notified Whom DR. KEITH douglas Blood Gas Notified Time 14:38:44 03/25/25 03/25/25 01:48 05:57 Specimen Type ART ART Sample Site Art Line Art Line pH 7.42 7.39 Bicarbonate Actual 8.5 L 8.8 L Total CO2 9 9 Base Excess -16 L -16 L O2 Saturation 100 H 99 O2 % 40.0 30.0 ABG pCO2 13.2 L* 14.6 L* ABG pO2 173 H 135 H Marco Antonio Test Respiration Rate 26 O2 Delivery Device ET Tube Not entered Vent Mode AC/PC AC/PC Tidal Volume POC PEEP 5 5 Peak Inspir Pressure Crit Call To/Read Back Yes Yes Blood Gas Notified Whom Blood Gas Notified Time Radiography Diagnostic Testing: Radiology Impression Chest X-Ray 03/24/25 08:10 IMPRESSION: The patient has free air under the right hemidiaphragm. I spoke with the nurse in the ICU (03/24/2025 at 10:45 a.m.) and the patient has not had any intra-abdominal procedures and this is consistent with a perforated abdominal viscus. Reading Location: [id number] Brain CT 03/24/25 08:22 IMPRESSION: 1. Age-related chronic microvascular ischemic changes. 2. Age-appropriate senescent changes. 3. No evidence of acute intracranial hemorrhage or ischemic infarction. Reading Location: [facility] Head/Neck CTA 03/24/25 08:22 IMPRESSION: 1. No evidence of significant stenosis of either internal carotid artery. 2. No evidence of intracranial vascular stenosis or occlusion. 3. No evidence of intracranial aneurysms or vascular malformations. 4. Other findings as noted. Reading Location: [facility] Chest X-Ray 03/24/25 10:15 IMPRESSION: Endotracheal tube in place, with tip approximately 3 cm above the emiliano. The cardiomediastinal silhouette is within the normal range, and unchanged. Lungs appear clear of acute disease. No pleural effusion or pneumothorax is noted. No acute osseous change is evident. Reading Location: [id number] Chest X-Ray 03/24/25 12:22 IMPRESSION: Endotracheal tube, nasogastric tube and left subclavian deep line appear in good position. Other findings as noted. Reading Location: [facility] Chest X-Ray 03/24/25 13:15 IMPRESSION: Interval placement of left base chest tube with interval near resolution of left-sided pneumothorax now trace in size. Reading Location: [id number] Chest X-Ray 03/24/25 13:15 IMPRESSION: Stable findings when compared to the earlier study 03/24/2025. Reading Location: [place] [id number] Chest X-Ray 03/24/25 14:22 IMPRESSION: 1. No active cardiopulmonary disease. 2. Therapeutic devices in good position. No definite signs of residual pneumothorax. Reading Location: [facility]- Chest X-Ray 03/25/25 04:25 IMPRESSION: Increasing perihilar opacities may be the result of low lung volumes, though edema, infection, or atelectasis could appear similar. Reading Location: [facility] Physical Exam Narrative GENERAL: Sedated on the vent HEENT: Atraumatic; normocephalic EYES; Anicteric, Normal Conjunctiva NECK; supple, normal thyroid, RESPIRATORY: Diminished to auscultation CARDIOVASCULAR: Regular S1 S2, GI: Colostomy in place with incisional hernia : No Renal angle tenderness; EXTREMITIES: No edema, no clubbing, MUSCULOSKELETAL: no muscle wasting NEURO: Unable to assess SKIN: Mottling of lower extremities Assessment & Plan Assessment/Plan (1) Colitis: PLAN: Plan Patient is a 79-year-old gentleman admitted with fever and generalized weakness 1. 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 Fluid-filled dilated small bowels, possibly presenting ileus and/or developing low-grade partial small bowel obstruction. No evidence of bowel perforation or pneumatosis intestinalis. Moderate amount of fecal residue in the proximal colon, probably constipation. Surgical changes of the anterior abdominal wall. Diffuse thickening and enhancement of the wall of the Dhillon pouch suggestive of proctitis/colitis. No evidence of associated perforation or abscess formation. Patient was started on Zosyn admitted to regular nursing floor. As part of his management stool for C. difficile as well as enteric pathogen sent ? 03/24/2025;Patient PCR for C. difficile was positive however antigen was negative. Repeated CT of the abdomen given patient change in clinical condition to rule out ischemic bowel given the impaired kidney function and metabolic acidosis ? 03/25/2025 patient had a deterioration in clinical condition resulting in patient being intubated and admitted to the intensive care unit. Subsequent imaging studies demonstrated air under the diaphragm consistent with a perforated viscus. Consult was placed to general surgery 2. Perforated viscus ? 03/25/2025 do suspect perforation of patient remaining stump. Patient remains on broad-spectrum antibiotic therapy surgery on board. Patient remains a poor candidate for any surgical intervention 3. Acute metabolic encephalopathy ? Secondary to acute kidney injury with severe metabolic acidosis. Patient stroke alert was called, initial imaging studies did not reveal presence of ischemia nor bleed. Patient was also seen in consultation by [facility] recommended no further workup unless patient symptoms recurred ? Patient mental status deteriorated resulting in patient being intubated and admitted to the intensive care unit 4. Acute kidney injury ? 03/24/2025; Patient creatinine on admission was 1.10, creatinine had gone up to 1.55 patient started on saline ordered renal ultrasound ordered ? 03/25/2025; patient kidney function has further worsened with BUN of 56 and creatinine of 33.1 4. Metabolic acidosis ? With elevated anion gap attributed to patient acute kidney injury patient is on IV fluid as well as bicarb drip transferred to the intensive care unit. Repeat ABGs ordered for noon. ? 03/25/2025; patient was started on bicarb drip with no improvement in acidosis 6. Septic shock ? Secondary to perforated viscus patient remains on broad-spectrum antibiotic therapy and pressors. 7. Acute respiratory failure? patient was intubated given worsening level of sensorium. Initial vent settings written consult placed to front office secretary 8. Iatrogenic pneumothorax ? Following central line placement patient had a chest tube placed 9. Acute transaminitis ? Secondary to shock liver 10. Thrombocytopenia ? Secondary to patient underlying infection and worsening kidney function 11. Parkinson's disease ? Patient is on carbidopa/levodopa and plan is to continue with home dose ? Carbidopa on hold given patient clinical condition 12. Anemia ? Secondary to chronic disorder monitoring H&H and transfuse if patient becomes symptomatic or hemoglobin falls below 7 ? Hemoglobin down to 8.7 we will hold off transfusing patient 13. 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 Hypertension ? Blood pressure controlled, home medications?HCTZ continued with dose adjustment as needed ? 03/25/2025; antihypertensives discontinued once patient went into septic shock necessitating pressor 15. BPH As per history currently not on any medication 14. DVT prophylaxis ? On enoxaparin ? Enoxaparin discontinued given worsening platelet counts Charges/Coding Visit Charges Inpatient E&M: 75136 [facility] L3
[2025-03-25] MEDS: Chlorhexidine 15 ML PO (09:44)
[2025-03-25] MEDS: CARBOXYMETHYLCELLULOSE SODIUM 1 DRP DROPS OPHTHALMIC (09:45)
[2025-03-25] MEDS: Sodium Bicarbonate 150 MEQ in Dextrose 5%-Water (1000mL Bag) 1,000 ML IV (09:48)
[2025-03-25 10:02] LABS: Reflex Lactate? Y
--- NOTE | 2025-03-25 11:01 | PN.SURG_ITS ---
Subjective Subjective Patient evaluated intubated in bed. He has had a moderate amount of stool output through his ostomy. His abdomen remains distended. Two chest tubes intact. One to waterseal and other one on suction. Patient still on 2 pressors Objective Data Objective Data Vital Signs: Vital Signs Temp Pulse Resp BP Pulse Ox O2 Del Method O2 Flow Rate 99.6 F H 91 26 H 96/52 L 98 Mechanical Ventilator 3 03/25/25 09:00 03/25/25 09:18 03/25/25 09:18 03/25/25 09:00 03/25/25 05:00 03/25/25 09:00 03/24/25 08:45 FiO2 30 03/25/25 09:00 Oxygen Flow Rate (L/min) 3 Oxygen Delivery Method Mechanical Ventilator Weight: 150 lb 12.739 oz Body Mass Index (BMI) 21.6 Intake & Output: Intake and Output for Last 24 Hours 03/23/25 03/24/25 03/25/25 23:59 23:59 23:59 Intake Total 1465.00 / 1465.00 4845.58 / 4904.38 3689.75 / 3689.75 Output Total 350 / 350 500 / 525 267 / 267 Balance 1115.00 / 1115.00 4345.58 / 4379.38 3422.75 / 3422.75 Lab / Micro Data 03/25/25 06:45 03/25/25 06:43 Labs: Laboratory Results - last 24 hr 03/24/25 07:56: POC Glucose 56 L 03/24/25 08:11: POC Glucose 83 03/24/25 09:49: POC Glucose 82 03/24/25 15:03: Lactic Acid 15.2 H* 03/24/25 20:13: Lactic Acid 12.8 H* 03/24/25 20:16: POC Glucose 92 03/25/25 05:51: WBC Cancelled, Corrected WBC Cancelled, RBC Cancelled, Hgb Cancelled, Hct Cancelled, MCV Cancelled, MCH Cancelled, MCHC Cancelled, RDW Std Deviation Cancelled, RDW Coeff of Ann Cancelled, Plt Count Cancelled, MPV Cancelled, Immature Gran % (Auto) Cancelled, Neut % (Auto) Cancelled, Lymph % (Auto) Cancelled, [place] % (Auto) Cancelled, Eos % (Auto) Cancelled, Baso % (Auto) Cancelled, Absolute Neuts (auto) Cancelled, Absolute Lymphs (auto) Cancelled, Total Counted Cancelled, Neutrophils % (Manual) Cancelled, Band Neutrophils % Cancelled, Lymphocytes % (Manual) Cancelled, Monocytes % (Manual) Cancelled, Eosinophils % (Manual) Cancelled, Basophils % (Manual) Cancelled, Metamyelocytes % Cancelled, Myelocytes % Cancelled, Promyelocytes % Cancelled, Blast Cells % Cancelled, Plasma Cell % (Manual) Cancelled, Other Cells % Cancelled, Nucleated RBC % Cancelled, Nucleated RBCs/100 WBC Cancelled, Differential Comment Cancelled, Diff Path Review Cancelled, Hypersegmented Neuts Cancelled, Atypical Lymphocytes Cancelled, Reactive Lymphocytes Cancelled, Smudge Cells Cancelled, Toxic Granulation Cancelled, Toxic Vacuolation Cancelled, Dohle Bodies Cancelled, Chang Rods Cancelled, Platelet Estimate Cancelled, Plt Morphology Comment Cancelled, RBC Morphology Cancelled 03/25/25 05:51: RBC Morphology Cancelled, Polychromasia Cancelled, Hypochromasia Cancelled, Basophilic Stippling Cancelled, Anisocytosis Cancelled, Microcytosis Cancelled, Macrocytosis Cancelled, Spherocytes Cancelled, Sickle Cells Cancelled, Target Cells Cancelled, Tear Drop Cells Cancelled, Ovalocytes Cancelled, Stomatocytes Cancelled, [place] Bodies Cancelled, [place] Cells Cancelled, Bite Cells Cancelled, Crenated Cell Cancelled, Acanthocytes (Spur) Cancelled, Rouleaux Cancelled, Schistocytes Cancelled, Sodium 133, Potassium 4.5, Chloride 97 L, Carbon Dioxide 7.6 L*, Anion Gap 28 H, BUN 55 H, Creatinine 3.26 H, Estim Creat Clear Calc 18.07 L, Est GFR (MDRD) Non-Af 19 L, BUN/Creatinine Ratio 17.0, Glucose 83, Lactic Acid 10.7 H*, Calcium 6.5 L*, T otal Bilirubin 3.21 H, AST 5085 H, ALT 440 H, Alkaline Phosphatase 151 H, Total Protein 5.1 L, Albumin 3.4, Globulin 1.7 L, Albumin/Globulin Ratio 2.0 03/25/25 06:43: Sodium 134, Potassium 4.5, Chloride 97 L, Carbon Dioxide 9.3 L*, Anion Gap 27 H, BUN 56 H, Creatinine 3.31 H, Estim Creat Clear Calc 17.79 L, Est GFR (MDRD) Non-Af 18 L, BUN/Creatinine Ratio 16.8, Glucose 76, Calcium 6.5 L*, T otal Bilirubin 3.29 H, AST 4968 H, ALT 468 H, Alkaline Phosphatase 158 H, Total Protein 5.0 L, Albumin 3.3 L, Globulin 1.7 L, Albumin/Globulin Ratio 1.9 03/25/25 06:45: WBC 10.9, RBC 2.70 L, Hgb 8.7 L, Hct 25.7 L, MCV 95.2 H D, MCH 32.2 H, MCHC 33.9 D, RDW Std Deviation 58.5 H, RDW Coeff of Ann 16.8 H, Plt Count 41 L*, MPV TNP, Neut % (Auto) Not Reportable, Absolute Neuts (auto) 7.4, A bsolute Lymphs (auto) 0.43 L, Total Counted 100, Neutrophils % (Manual) 46 L, B and Neutrophils % 22 H, Lymphocytes % (Manual) 4 L, Monocytes % (Manual) 2, M etamyelocytes % 21 H, Myelocytes % 5 H, Diff Path Review May foll, Toxic Granulation 1+, Dohle Bodies 1+, Platelet Estimate 1, Ovalocytes 1+, Acanthocytes (Spur) 1+ Micro: Microbiology 03/23/25 03:32 Blood Culture (Wb) - Anticubital Left Blood Culture - Preliminary No growth in 48 hours. 03/23/25 02:27 Blood Culture (Wb) - Anticubital Left Blood Culture - Preliminary No growth in 48 hours. 03/23/25 03:17 Urine, Clean Catch Urine Culture - Final Culture exhibits no growth. 03/23/25 08:35 Stool Enteric Bacteriology - Final 03/23/25 08:35 Stool C. difficile GDH Antigen & Toxins - Final 03/23/25 08:35 Stool Clostridioides difficile (PCR) - Final 03/23/25 04:30 Mucosa - Nose SARS-CoV-2, Influenza & RSV (PCR) - Final ABG Data ABG results: ABG 03/24/25 03/24/25 03/24/25 08:20 11:48 14:36 Specimen Type ART ART ART Sample Site R RADIAL R Radial Art Line pH 7.27 L 7.23 L 7.24 L Bicarbonate Actual 6.5 L 8.2 L 5.1 L Total CO2 7 9 6 Base Excess -20 L -19 L -22 L O2 Saturation 97 99 99 O2 % 50.0 40.0 ABG pCO2 14.2 L* 19.6 L 11.9 L* ABG pO2 104 H 179 H 158 H Marco Antonio Test POSITIVE Positive Respiration Rate 12 26 O2 Delivery Device CANNULA Adult Vent Adult Vent Vent Mode AC AC/PC Tidal Volume 400.0 POC PEEP 5 5 Peak Inspir Pressure 25 Crit Call To/Read Back Yes Blood Gas Notified Whom DR. KEITH douglas Blood Gas Notified Time 14:38:44 03/25/25 03/25/25 01:48 05:57 Specimen Type ART ART Sample Site Art Line Art Line pH 7.42 7.39 Bicarbonate Actual 8.5 L 8.8 L Total CO2 9 9 Base Excess -16 L -16 L O2 Saturation 100 H 99 O2 % 40.0 30.0 ABG pCO2 13.2 L* 14.6 L* ABG pO2 173 H 135 H Marco Antonio Test Respiration Rate 26 O2 Delivery Device ET Tube Not entered Vent Mode AC/PC AC/PC Tidal Volume POC PEEP 5 5 Peak Inspir Pressure Crit Call To/Read Back Yes Yes Blood Gas Notified Whom Blood Gas Notified Time Radiography Diagnostic Testing: Radiology Impression Chest X-Ray 03/24/25 12:22 IMPRESSION: Endotracheal tube, nasogastric tube and left subclavian deep line appear in good position. Other findings as noted. Reading Location: [id number] Chest X-Ray 03/24/25 13:15 IMPRESSION: Interval placement of left base chest tube with interval near resolution of left-sided pneumothorax now trace in size. Reading Location: [id number] Chest X-Ray 03/24/25 13:15 IMPRESSION: Stable findings when compared to the earlier study 03/24/2025. Reading Location: [facility]1 Chest X-Ray 03/24/25 14:22 IMPRESSION: 1. No active cardiopulmonary disease. 2. Therapeutic devices in good position. No definite signs of residual pneumothorax. Reading Location: [facility]--1 Chest X-Ray 03/25/25 04:25 IMPRESSION: Increasing perihilar opacities may be the result of low lung volumes, though edema, infection, or atelectasis could appear similar. Reading Location: [id number] Physical Exam Resp Resp Narrative: Left chest- two chest tubes. Superior chest tube to wall suction. Active air leak noted. Inferior chest tube to waterseal. Effort and Inspection: mechanically ventilated GI GI Narrative: Abdomen- distended, soft. Ostomy with moderate amount of stool output. Assessment & Plan Assessment/Plan (1) Colitis: PLAN: I am following this patient in conjunction with Dr. Razo. He has independently evaluated this patient. Labs reviewed Patient currently in multisystem organ failure CXR obtained over night showing no pneumothorax Leave superior chest tube to wall suction and inferior chest tube to waterseal Patient remains unstable for additional CT imaging and surgical intervention Patient remains a full code at this time We will continue to monitor this patient Charges/Coding Visit Charges Inpatient E&M: 26766 Subs Hosp L2
[2025-03-25] MEDS: FAMOTIDINE 20 MG 300 MG IV (11:12)
--- NOTE | 2025-03-25 12:22 | CASEMGMT ---
Social Work Pt's dgts Susy and Carmella present with pt. SW met with family and provided emotional support. Pt's two sons and sister are also on their way to the hospital to see pt. Pt's dgts have spoke with physician's and express understanding of pt condition and have settled on goals of care moving forward and are now waiting for rest of family to arrive. Support provided and dgt made aware that SW will remain available as needed. JOAN Sanchez
--- NOTE | 2025-03-25 12:50 | CHAPLAIN ---
Type of Pastoral Visit _x__ Initial Visit ___ Follow-up Visit ___ On-call Visit ___ General Patient Visit ___ Spiritual Assessment ___ Family Conference ___ Bereavement ___ Rapid Response ___ Code Blue ___ Other (describe below) Pastoral Care Referral From ___ Patient _x__ Family _x__ Nurse ___ Physician ___ Feed Crusher Operator ___ Director Data Management ___ Other (describe below) Sacrament/Intervention _x__ Active listening ___ Anointing ___ Jain ___ Bereavement ___ Communion ___ Apple exploration ___ ___ Life review _x__ Prayer ___ Reconciliation ___ Sacrament of Sick _x__ Supportive presence ___ Wedding ___ Other (describe below) Pastoral Comments patient is intubated; two daughters are in the room; this visit was recommended by RN and wholly agreed upon by the daughters; other family members will also be arriving today; at that time family will make a united decision about withdrawal of care; daughters welcome support and speak of the patients own involvement in spiritual ministry; prayer and scripture are given; daughters are tearful; daughters request that this package dyeing machine operator return when other family members have arrived to continue spiritual care;
--- NOTE | 2025-03-25 15:00 | CHAPLAIN ---
Type of Pastoral Visit ___ Initial Visit _x__ Follow-up Visit ___ On-call Visit ___ General Patient Visit ___ Spiritual Assessment _x__ Family Conference ___ Bereavement ___ Rapid Response ___ Code Blue ___ Other (describe below) Pastoral Care Referral From ___ Patient _x__ Family ___ Nurse ___ Physician ___ Momd Teacher ___ Coloring Checker ___ Other (describe below) Sacrament/Intervention _x__ Active listening ___ Anointing ___ Alevism _x__ Bereavement ___ Communion _x__ Apple exploration ___ _x__ Life review _x__ Prayer ___ Reconciliation ___ Sacrament of Sick _x__ Supportive presence ___ Wedding ___ Other (describe below) Pastoral Comments more family members have arrived and are in the room together; family asks for this evaluation manager to come and give prayers and support; much is said among the family in review of life, in response to the situation and their apple in God; laughter and tears are mixed together in the thoughts shared; affirmation for family's love and presence is given; prayer and committal to God's will offered; assurance of added support to family as needed
[2025-03-25] MEDS: Lorazepam 2 MG/ML WCH Syringe IV ×2 (15:15→16:36)
[2025-03-25] MEDS: Morphine 2 MG/ML Syringe IV ×2 (15:15→16:00)
--- NOTE | 2025-03-25 15:37 | NURSING ---
14:55- Family notified this RN that they were ready to make patient comfortable and withdraw care. This RN informed the family that it would take a few minutes but staff will be in to extubate patient. 15:00- Dr. Buckner notified about patients family decision to withdraw care. Comfort care orders given by Dr. Buckner: Morphine 2-4mg IV Q30M PRN, Ativan 1-2mg IV Q30M PRN, code status change to DNRCC and to extubate patient. Dr. Headley also notified. 15:20- Comfort meds given (see DEC) and patient extubated. Family at bedside. Emotional support given.
--- NOTE | 2025-03-25 16:50 | PCM.PN.HOSP ---
Reason for Visit Reason for Visit: Diagnoses Sepsis, unspecified organism (03/24/25) Pneumothorax, unspecified (03/24/25) Noninfective gastroenteritis and colitis, unspecified (03/24/25) Severe sepsis with septic shock (03/24/25) Objective Data Objective Data Vital Signs: Vital Signs Temp Pulse Resp BP Pulse Ox O2 Del Method O2 Flow Rate 100.5 F H 91 26 H 111/58 L 95 Nasal Cannula 2 03/25/25 14:00 03/25/25 15:00 03/25/25 15:00 03/25/25 15:00 03/25/25 15:32 03/25/25 15:32 03/25/25 15:32 FiO2 30 03/25/25 15:00 Oxygen Flow Rate (L/min) 2 Oxygen Delivery Method Nasal Cannula Weight: 68.4 kg Body Mass Index (BMI) 21.6 Intake & Output: Intake and Output for Last 24 Hours 03/23/25 03/24/25 03/25/25 23:59 23:59 23:59 Intake Total 1465.00 / 1465.00 4845.58 / 4904.38 6049.15 / 6049.15 Output Total 350 / 350 500 / 525 292 / 292 Balance 1115.00 / 1115.00 4345.58 / 4379.38 5757.15 / 5757.15 Lab / Micro Data 03/25/25 06:45 03/25/25 06:43 Labs: Laboratory Results - last 24 hr 03/24/25 20:13: Lactic Acid 12.8 H* 03/24/25 20:16: POC Glucose 92 03/25/25 05:51: WBC Cancelled, Corrected WBC Cancelled, RBC Cancelled, Hgb Cancelled, Hct Cancelled, MCV Cancelled, MCH Cancelled, MCHC Cancelled, RDW Std Deviation Cancelled, RDW Coeff of Ann Cancelled, Plt Count Cancelled, MPV Cancelled, Immature Gran % (Auto) Cancelled, Neut % (Auto) Cancelled, Lymph % (Auto) Cancelled, [place] % (Auto) Cancelled, Eos % (Auto) Cancelled, Baso % (Auto) Cancelled, Absolute Neuts (auto) Cancelled, Absolute Lymphs (auto) Cancelled, Total Counted Cancelled, Neutrophils % (Manual) Cancelled, Band Neutrophils % Cancelled, Lymphocytes % (Manual) Cancelled, Monocytes % (Manual) Cancelled, Eosinophils % (Manual) Cancelled, Basophils % (Manual) Cancelled, Metamyelocytes % Cancelled, Myelocytes % Cancelled, Promyelocytes % Cancelled, Blast Cells % Cancelled, Plasma Cell % (Manual) Cancelled, Other Cells % Cancelled, Nucleated RBC % Cancelled, Nucleated RBCs/100 WBC Cancelled, Differential Comment Cancelled, Diff Path Review Cancelled, Hypersegmented Neuts Cancelled, Atypical Lymphocytes Cancelled, Reactive Lymphocytes Cancelled, Smudge Cells Cancelled, Toxic Granulation Cancelled, Toxic Vacuolation Cancelled, Dohle Bodies Cancelled, Chang Rods Cancelled, Platelet Estimate Cancelled, Plt Morphology Comment Cancelled, RBC Morphology Cancelled 03/25/25 05:51: RBC Morphology Cancelled, Polychromasia Cancelled, Hypochromasia Cancelled, Basophilic Stippling Cancelled, Anisocytosis Cancelled, Microcytosis Cancelled, Macrocytosis Cancelled, Spherocytes Cancelled, Sickle Cells Cancelled, Target Cells Cancelled, Tear Drop Cells Cancelled, Ovalocytes Cancelled, Stomatocytes Cancelled, Calhoun-Liborio Negron Torres Bodies Cancelled, [place] Cells Cancelled, Bite Cells Cancelled, Crenated Cell Cancelled, Acanthocytes (Spur) Cancelled, Rouleaux Cancelled, Schistocytes Cancelled, Sodium 133, Potassium 4.5, Chloride 97 L, Carbon Dioxide 7.6 L*, Anion Gap 28 H, BUN 55 H, Creatinine 3.26 H, Estim Creat Clear Calc 18.07 L, Est GFR (MDRD) Non-Af 19 L, BUN/Creatinine Ratio 17.0, Glucose 83, Lactic Acid 10.7 H*, Calcium 6.5 L*, Total Bilirubin 3.21 H, AST 5085 H, ALT 440 H, Alkaline Phosphatase 151 H, Total Protein 5.1 L, Albumin 3.4, Globulin 1.7 L, Albumin/Globulin Ratio 2.0 03/25/25 06:43: Sodium 134, Potassium 4.5, Chloride 97 L, Carbon Dioxide 9.3 L*, Anion Gap 27 H, BUN 56 H, Creatinine 3.31 H, Estim Creat Clear Calc 17.79 L, Est GFR (MDRD) Non-Af 18 L, BUN/Creatinine Ratio 16.8, Glucose 76, Calcium 6.5 L*, Total Bilirubin 3.29 H, AST 4968 H, ALT 468 H, Alkaline Phosphatase 158 H, Total Protein 5.0 L, Albumin 3.3 L, Globulin 1.7 L, Albumin/Globulin Ratio 1.9 03/25/25 06:45: WBC 10.9, RBC 2.70 L, Hgb 8.7 L, Hct 25.7 L, MCV 95.2 H D, MCH 32.2 H, MCHC 33.9 D, RDW Std Deviation 58.5 H, RDW Coeff of Ann 16.8 H, Plt Count 41 L*, MPV TNP, Neut % (Auto) Not Reportable, Absolute Neuts (auto) 7.4, Absolute Lymphs (auto) 0.43 L, Total Counted 100, Neutrophils % (Manual) 46 L, Band Neutrophils % 22 H, Lymphocytes % (Manual) 4 L, Monocytes % (Manual) 2, Metamyelocytes % 21 H, Myelocytes % 5 H, Diff Path Review May foll, Toxic Granulation 1+, Dohle Bodies 1+, Platelet Estimate 1, Ovalocytes 1+, Acanthocytes (Spur) 1+ Micro: Microbiology 03/23/25 03:32 Blood Culture (Wb) - Anticubital Left Blood Culture - Preliminary No growth in 48 hours. 03/23/25 02:27 Blood Culture (Wb) - Anticubital Left Blood Culture - Preliminary No growth in 48 hours. 03/23/25 03:17 Urine, Clean Catch Urine Culture - Final Culture exhibits no growth. 03/23/25 08:35 Stool Enteric Bacteriology - Final 03/23/25 08:35 Stool C. difficile GDH Antigen & Toxins - Final 03/23/25 08:35 Stool Clostridioides difficile (PCR) - Final 03/23/25 04:30 Mucosa - Nose SARS-CoV-2, Influenza & RSV (PCR) - Final ABG Data ABG results: ABG 03/25/25 03/25/25 01:48 05:57 Specimen Type ART ART Sample Site Art Line Art Line pH 7.42 7.39 Bicarbonate Actual 8.5 L 8.8 L Total CO2 9 9 Base Excess -16 L -16 L O2 Saturation 100 H 99 O2 % 40.0 30.0 ABG pCO2 13.2 L* 14.6 L* ABG pO2 173 H 135 H Respiration Rate 26 O2 Delivery Device ET Tube Not entered Vent Mode AC/PC AC/PC POC PEEP 5 5 Crit Call To/Read Back Yes Yes Radiography Diagnostic Testing: Radiology Impression Chest X-Ray 03/25/25 04:25 IMPRESSION: Increasing perihilar opacities may be the result of low lung volumes, though edema, infection, or atelectasis could appear similar. Reading Location: [facility]
--- NOTE | 2025-03-25 18:49 | NURSING ---
Addendum entered by Cami Corley 03/25/25 19:02: Patient at 1650 Original Note: Patient at 1620, verified with 2nd RN Jose Manuel Shore RN. Family at bedside. Emotional support given.
--- NOTE | 2025-03-26 07:05 | PCM.DEATH ---
Preliminary Cause of Preliminary Cause of Preliminary Cause of : Perforated viscus Acute kidney injury Metabolic acidosis Date of Admission: 03/23/25 Date of : 03/25/25 Principle Diagnosis Acute perforated viscus Septic shock Acute kidney injury Problem List: Active and Suspected Problems (Updated 03/25/25 @ 07:[address] Steve Buckner, DO) Septic shock (Acute) Pneumothorax (Acute) Colitis (Acute) Hospital Course Patient is a 79-year-old gentleman admitted with fever and generalized weakness. Imaging studies on admission demonstrated features consistent with acute colitis as well as proctitis/colitis involving Dhillon's pouch. Patient was started on broad-spectrum antibiotic therapy admitted to regular nursing floor. Patient clinical condition however did worsen a day following his admission. He did complain of abdominal pain and became lethargic diagnostic workup did reveal severe metabolic acidosis. Subsequent imaging studies demonstrated air under the diaphragm suggestive of perforated viscus. Patient was transferred to the intensive care unit and subsequently intubated. Patient did develop pneumothorax following placement of a central line. Patient clinical condition continued to deteriorate despite optimal treatment. Held discussion with patient family CODE STATUS was changed to DNR CCA patient was terminally extubated. Patient was found with heart tones as well as spontaneous breathing at 1650. He was pronounced .
== END 2025-03-25 20:17 | DRG 393 ==
LOC: ED 03:05 → MS3 07:46 → ICU 03-24 09:06
PROVIDERS: Internal Medicine; Admitting Provider Family Medicine; Emergency Provider Emergency Medicine; PCP Family Medicine; Visit Provider Internal Medicine
DX: K63.1 Perforation of intestine (nontraumatic) (principal); G93.41 Metabolic encephalopathy; R65.21 Severe sepsis with septic shock; K72.00 Acute and subacute hepatic failure without coma; J96.01 Acute respiratory failure with hypoxia; E87.20 Acidosis, unspecified; N17.9 Acute kidney failure, unspecified; Z66 Do not resuscitate; G20.C Parkinsonism, unspecified; I12.9 Hypertensive chronic kidney disease with stage 1 through stage 4 chronic kidney disease, or unspecified chronic kidney disease; D63.8 Anemia in other chronic diseases classified elsewhere; Z93.3 Colostomy status; K52.9 Noninfective gastroenteritis and colitis, unspecified; N18.2 Chronic kidney disease, stage 2 (mild); J95.811 Postprocedural pneumothorax; N40.0 Benign prostatic hyperplasia without lower urinary tract symptoms; Z79.82 Long term (current) use of aspirin
CPT/HCPCS: 31500; 31720; 36600; 70450; 70496; 70498; 71045; 71046; 74174; 74177; 80048; 80053; 81001; 82803; 82962; 83605; 83735; 84100; 84145; 85025; 85610; 85730; 87040; 87086; 87493; 87506; 87631; 93005; 94002; 94003; 94640; 94668; 99252; 99285; P9047; Q9967; A4216; G0463; J2310